=== PATIENT | male | born 1940 | race Two or more races ===

== ENCOUNTER 2018-11-18 03:42 | Inpatient (IN) | payer MEDICARE, OTHER ==
[~2018-11-18] VITALS: Ht 165.1 cm; Wt 63.0 kg
[~2018-11-18 03:42] MED LIST: ASPIRIN81 MG ORAL; ATORVASTATIN CA40 MG ORAL; COREG3.125 MG ORAL; LISINOPRIL20 MG ORAL; PLAVIX75 MG ORAL; RANEXA500 MG ORAL; UNOBMED
[2018-11-18] MEDS ORDERED: LACTULOSE10 GM/153 PO (03:54)
[2018-11-18] MEDS ORDERED: FUROSEMIDE40 MG ORAL (03:54)
[2018-11-18] MEDS ORDERED: PROTONIX40 MG ORAL (03:54)
[2018-11-18] MEDS ORDERED: metropolol PO (03:54)
[2018-11-18] MEDS ORDERED: SYNTHROID50 MCG ORAL (03:54)
[2018-11-18] MEDS ORDERED: LEXAPRO5 MG ORAL (03:54)
[2018-11-18] MEDS ORDERED: HYDRALAZINE HCL25 M2 PO (03:54)
--- NOTE | 2018-11-18 04:14 | Emergency Room Report ---
History of Present Illness General Chief Complaint: Chest Pain Source: Patient Present Illness HPI Is a 78-year-old male with a cardiac history with previous CABG and pacemaker. He presents with chief complaint of chest pain. He is a very vague historian. He said he get chest pain on and off all the time. He said recent admission was to [facility] 3 months ago. He presents with chief complaint of chest pain. Onset tonight. Per prison, the going to give him nitroglycerin but he refused. He insists on calling 911. Development Lead gave him nitroglycerin aspirin he said he felt better. Pain is substernal. No radiation. No nausea no vomiting. Pain is sharp. Pain is 7 out of 10. No exertional component. No diaphoresis. No shortness of breath. Allergies: Coded Allergies: No Known Allergies (Verified , 09/12/10) Patient History Past Medical History: see triage record, old chart reviewed, HTN, [place], CAD, CHF Past Surgical History: CABG, pacemaker Pertinent Family History: none Social History: Denies: smoking Immunizations: other Reviewed Nursing Documentation: PMH: Agreed; PSxH: Agreed Nursing Documentation-PMH Past Medical History: No History, Except For Hx Cardiac Problems: Yes - Left upper chest pacemaker Hx Hypertension: Yes Hx Pacemaker: Yes Hx Cancer: No Hx Gastrointestinal Problems: No Hx Neurological Problems: No Review of Systems Eye: Denies: eye pain, blurred vision ENT: Denies: ear pain, nose congestion, throat swelling Respiratory: Denies: cough, shortness of breath Cardiovascular: Reports: chest pain; Denies: palpitations Gastrointestinal: Denies: abdominal pain, diarrhea, nausea, vomiting Musculoskeletal: Denies: back pain, joint pain Skin: Denies: rash Neurological: Denies: headache, numbness Endocrine: Denies: increased thirst, increased urine Hematologic/Lymphatic: Denies: easy bruising All Other Systems: negative except mentioned in HPI Physical Exam Vital Signs Date Time Temp Pulse Resp B/P (MAP) Pulse Ox O2 Delivery O2 Flow Rate FiO2 11/18/18 03:42 98.1 68 18 156/75 99 Room Air vitals with high blood pressure Sp02 EP Interpretation: reviewed, normal General Appearance: well appearing, no apparent distress, alert Head: normocephalic, atraumatic Eyes: bilateral eye PERRL, bilateral eye EOMI ENT: hearing grossly normal, normal pharynx Neck: full range of motion, supple, no meningismus Respiratory: chest non-tender, lungs clear, normal breath sounds Cardiovascular #1: regular rate, rhythm, no murmur Gastrointestinal: normal bowel sounds, non tender, no mass, no organomegaly, no bruit, non-distended Musculoskeletal: back normal, gait/station normal, normal range of motion Psychiatric: mood/affect normal Skin: warm/dry Medical Decision Making Diagnostic Impression: Primary Impression: Chest pain Qualified Codes: R07.9 - Chest pain, unspecified ER Course Patient present with chest pain. Atypical in nature. I suspect some anxiety component to this. He does have multiple risk factors and known CAD with previous [place]. Will admit for further workup. I discussed the case with who admits for Dr. Bray. Lab Results Impression labs unremarkable. EKG Diagnostic Results Rate: normal Rhythm: NSR, other - Paced rhythm ST Segments: no acute changes Rhythm Strip Diag. Results EP Interpretation: yes Rate: 70 Rhythm: NSR, no PVC's, no ectopy Chest X-Ray Diagnostic Results Chest X-Ray Diagnostic Results : Chest X-Ray Ordered: Yes # of Views/Limited/Complete: 1 View Indication: Chest Pain EP Interpretation: Yes Interpretation: no consolidation, no effusion, no pneumothorax, no acute cardiopulmonary disease Impression: No acute disease Electronically Signed by: Aguilar Gray MD Last Vital Signs Date Time Temp Pulse Resp B/P (MAP) Pulse Ox O2 Delivery O2 Flow Rate FiO2 11/18/18 03:42 98.1 68 18 156/75 99 Room Air Status: improved Disposition: ADMITTED INPATIENT Condition: Serious Referrals: NON PHYSICIAN (PCP) Aguilar Gray MD Nov 18, 2018 04:14
[2018-11-18 05:00] VITALS: BP 154/59
[2018-11-18 05:26] LABS: BASOPHILS % (AUTO) 4.5 % (0.0-2.0); EOSINOPHILS % (AUTO) 4.8 % (0.0-3.0); HEMATOCRIT 25.5 % (42.0-52.0); HEMOGLOBIN 8.1 G/DL (14.2-18.0); LYMPHOCYTES % (AUTO) 36.2 % (20.0-45.0); MEAN CORPUSCULAR VOLUME 75 FL (80-99); MONOCYTES % (AUTO) 12.5 % (1.0-10.0); PLATELET COUNT 186 K/UL (150-450); RED CELL DISTRIBUTION WIDTH 28.5 % (11.6-14.8); WHITE BLOOD COUNT 8.1 K/UL (4.8-10.8)
[2018-11-18 05:38] LABS: ANION GAP 10 mmol/L (5-15); BLOOD UREA NITROGEN 19 mg/dL (7-18); CALCIUM 8.4 MG/DL (8.5-10.1); CARBON DIOXIDE 27 MMOL/L (21-32); CHLORIDE 103 MMOL/L (98-107); CREATININE 1.2 MG/DL (0.55-1.30); POTASSIUM 3.8 MMOL/L (3.5-5.1); SODIUM 139 MMOL/L (136-145)
[2018-11-18 06:02] LABS: ALANINE AMINOTRANSFERASE 19 U/L (12-78); ALBUMIN 3.4 G/DL (3.4-5.0); ALBUMIN/GLOBULIN RATIO 0.7 (1.0-2.7); ALKALINE PHOSPHATASE 66 U/L (46-116); ASPARTATE AMINO TRANSFERASE 23 U/L (15-37); BILIRUBIN,TOTAL 1.2 MG/DL (0.2-1.0); CKMB 1.1 NG/ML (0.0-3.6); CREATINE KINASE 31 U/L (26-308)
[2018-11-18 06:09] LABS: BILIRUBIN,DIRECT 0.3 MG/DL (0.0-0.3)
[2018-11-18 06:45] VITALS: BP 129/55
[2018-11-18 08:45] LABS: APPEARANCE,URINE CLOUDY; BILIRUBIN, URINE 1+ (NEGATIVE); COLOR,URINE BROWN; GLUCOSE, URINE (UA) NEGATIVE (NEGATIVE); KETONES,URINE 1+ (NEGATIVE); LEUKOCYTE ESTERASE ,URINE 3+ (NEGATIVE); NITRITE,URINE NEGATIVE (NEGATIVE); PH,URINE 5 (4.5-8.0); PROTEIN,URINE 1+ (NEGATIVE); UROBILINOGEN,URINE 1 MG/DL (0.0-1.0)
[2018-11-18 09:00] VITALS: BP 133/74
--- NOTE | 2018-11-18 10:07 | Diagnostic Imaging Report ---
Indication: Chest pain Technique: One view of the chest Comparison: 05/15/2016 Findings: Right hemidiaphragm is elevated. Large hiatal hernia again demonstrated. The aorta is tortuous and calcified. Some atelectasis is seen at the right lung base and right perihilar region. The lungs and pleural spaces are otherwise clear. There is a left chest biventricular AICD. There is evidence of prior CABG Impression: No acute process Right basilar atelectasis and elevated right hemidiaphragm, also previously demonstrated Other findings as noted
[2018-11-18] MEDS ORDERED: Zolpidem 5mg tab ORAL PRN (10:15)
[2018-11-18] MEDS ORDERED: Miralax 17gm pkt ORAL PRN (10:15)
[2018-11-18] MEDS ORDERED: Acetaminophen 650 MG SUPP RECTAL PRN (10:15)
[2018-11-18] MEDS ORDERED: Milk of Magnesia 30ml Ud ORAL PRN (10:15)
--- NOTE | 2018-11-18 10:27 | History & Physical ---
History and Physical History & Physicial Abdias Hunter MD Nov 18, 2018 10:27
[2018-11-18 11:00] VITALS: BP 134/70
[2018-11-18 13:00] VITALS: BP 152/62
--- NOTE | 2018-11-18 13:45 | Consultation ---
History of Present Illness General Date patient seen: Nov 18, 2018 Chief Complaint: Chest Pain Present Illness HPI 78-year-old male with a history of CABG and pacemaker presented to ER with chief complaint of chest pain. Pain is substernal. No radiation. Pt had a recent admission to [facility] 3 months ago with the same symptoms. Cuff Setter Overlock gave him nitroglycerin aspirin he said he felt better. . Pain is 7 out of 10. No exertional component. No diaphoresis. No shortness of breath. Pt is admitted to telemetry for further work up. Allergies: Coded Allergies: No Known Allergies (Verified , 09/12/10) Medication History Scheduled Aspirin* (Aspirin*), 81 MG ORAL DAILY Atorvastatin Calcium* (Atorvastatin Calcium*), 40 MG ORAL BEDTIME Carvedilol (Coreg), 3.125 MG ORAL EVERY 12 HOURS Clopidogrel Bisulfate* (Plavix*), 75 MG ORAL DAILY Escitalopram Oxalate (Lexapro), 5 MG ORAL DAILY, (Reported) Furosemide* (Lasix*), 40 MG ORAL DAILY, (Reported) Levothyroxine Sodium (Synthroid), 25 MCG ORAL DAILY, (Reported) Lisinopril (Lisinopril*), 40 MG ORAL DAILY Pantoprazole* (Protonix*), 40 MG ORAL DAILY, (Reported) Ranolazine* (Ranexa*), 1,000 MG ORAL Q12HR Miscellaneous Medications Hydralazine HCl (Hydralazine HCl), 25 MG PO, (Reported) Lactulose (Lactulose), 10 GM PO, (Reported) Unable to Obtain Medications (Unable To Obtain Meds), (Reported) [metropolol], 25 MG PO, (Reported) Patient History Healthcare decision maker Resuscitation status Advanced Directive on File Past Medical/Surgical History Past Medical/Surgical History: (1) CAD (coronary artery disease) (2) HTN (hypertension) (3) Pacemaker Review of Systems All Other Systems: negative except mentioned in HPI Physical Exam General Appearance: cachetic Lines, tubes and drains: peripheral HEENT: normocephalic, atraumatic Neck: non-tender, normal alignment Respiratory/Chest: chest wall non-tender, lungs clear Breasts: no masses Cardiovascular/Chest: normal peripheral pulses, normal rate Abdomen: normal bowel sounds, non tender Genitourinary/Rectal: normal genital exam Extremities: normal range of motion Skin Exam: normal pigmentation Neurologic: rug dry room attendant II-XII grossly normal Last 24 Hour Vital Signs Date Time Temp Pulse Resp B/P (MAP) Pulse Ox O2 Delivery O2 Flow Rate FiO2 11/18/18 11:00 98.3 80 17 134/70 100 Room Air 11/18/18 09:00 98.8 77 20 133/74 100 Room Air 11/18/18 06:45 98.4 69 21 129/55 100 Room Air 11/18/18 05:00 98.1 68 17 154/59 100 Room Air 11/18/18 04:00 68 18 Room Air 11/18/18 03:42 98.1 68 18 156/75 99 Room Air Laboratory Tests Test 11/18/18 04:35 11/18/18 08:15 White Blood Count 8.1 K/UL (4.8-10.8) Red Blood Count 3.40 M/UL (4.70-6.10) L Hemoglobin 8.1 G/DL (14.2-18.0) L Hematocrit 25.5 % (42.0-52.0) L Mean Corpuscular Volume 75 FL (80-99) L Mean Corpuscular Hemoglobin 23.7 PG (27.0-31.0) L Mean Corpuscular Hemoglobin Concent 31.8 G/DL (32.0-36.0) L Red Cell Distribution Width 28.5 % (11.6-14.8) H Platelet Count 186 K/UL (150-450) Mean Platelet Volume 10.1 FL (6.5-10.1) Neutrophils (%) (Auto) 42.0 % (45.0-75.0) L Lymphocytes (%) (Auto) 36.2 % (20.0-45.0) Monocytes (%) (Auto) 12.5 % (1.0-10.0) H Eosinophils (%) (Auto) 4.8 % (0.0-3.0) H Basophils (%) (Auto) 4.5 % (0.0-2.0) H Sodium Level 139 MMOL/L (136-145) Potassium Level 3.8 MMOL/L (3.5-5.1) Chloride Level 103 MMOL/L (98-107) Carbon Dioxide Level 27 MMOL/L (21-32) Anion Gap 10 mmol/L (5-15) Blood Urea Nitrogen 19 mg/dL (7-18) H Creatinine 1.2 MG/DL (0.55-1.30) Estimat Glomerular Filtration Rate mL/min (>60) Glucose Level 122 MG/DL (74-106) H Calcium Level 8.4 MG/DL (8.5-10.1) L Total Bilirubin 1.2 MG/DL (0.2-1.0) H Direct Bilirubin 0.3 MG/DL (0.0-0.3) Aspartate Amino Transf (AST/SGOT) 23 U/L (15-37) Alanine Aminotransferase (ALT/SGPT) 19 U/L (12-78) Alkaline Phosphatase 66 U/L (46-116) Total Creatine Kinase 31 U/L (26-308) Creatine Kinase MB 1.1 NG/ML (0.0-3.6) Creatine Kinase MB Relative Index 3.5 Troponin I 0.011 ng/mL (0.000-0.056) Total Protein 8.1 G/DL (6.4-8.2) Albumin 3.4 G/DL (3.4-5.0) Globulin 4.7 g/dL Albumin/Globulin Ratio 0.7 (1.0-2.7) L Urine Color Brown Urine Appearance Cloudy Urine pH 5 (4.5-8.0) Urine Specific [place] 1.015 (1.005-1.035) Urine Protein 1+ (NEGATIVE) H Urine Glucose (UA) Negative (NEGATIVE) Urine Ketones 1+ (NEGATIVE) H Urine Blood Negative (NEGATIVE) Urine Nitrite Negative (NEGATIVE) Urine Bilirubin 1+ (NEGATIVE) H Urine Ictotest Negative (NEGATIVE) Urine Urobilinogen 1 MG/DL (0.0-1.0) H Urine Leukocyte Esterase 3+ (NEGATIVE) H Urine RBC 0-2 /HPF (0 - 0) H Urine WBC 20-30 /HPF (0 - 0) H Urine Squamous Epithelial Cells Occasional /LPF Urine Calcium Oxalate Crystals Occasional /LPF (NONE) Urine Bacteria Many /HPF (NONE) H Microbiology Date/Time Source Procedure Growth Status 11/18/18 07:20 Rectum Received Height (Feet): 5 Height (Inches): 6.00 Weight (Pounds): 135 Medications Current Medications Medications (Trade) Dose Ordered Sig/Scout Route PRN Reason Start Time Stop Time Status Last Admin Dose Admin Acetaminophen (Tylenol) 650 mg Q4H PRN ORAL Mild Pain (Pain Scale 1-3) 11/18/18 10:15 12/18/18 10:14 Acetaminophen (Tylenol) 650 mg Q4H PRN ORAL fever 11/18/18 10:15 12/18/18 10:14 Acetaminophen (Tylenol) 650 mg Q4H PRN RECTAL Mild Pain (Pain Scale 1-3) 11/18/18 10:15 12/18/18 10:14 Aspirin (ASA) 81 mg DAILY ORAL 11/19/18 09:00 12/19/18 08:59 Atorvastatin Calcium (Lipitor) 40 mg BEDTIME ORAL 11/18/18 21:00 12/18/18 20:59 Bisacodyl (Dulcolax) 10 mg DAILYPRN PRN RECTAL Constipation 11/18/18 10:15 12/18/18 10:14 Carvedilol (Coreg) 3.125 mg EVERY 12 HOURS ORAL 11/18/18 21:00 12/18/18 20:59 Ceftriaxone Sodium 1 gm/ Dextrose 50 ml @ 100 mls/hr Q24H IVPB 11/18/18 10:30 11/25/18 10:29 UNV Clopidogrel Bisulfate (Plavix) 75 mg DAILY ORAL 11/19/18 09:00 12/19/18 08:59 Dextrose (Dextrose 50%) 25 ml Q30M PRN IV Hypoglycemia 11/18/18 10:15 12/18/18 10:14 Dextrose (Dextrose 50%) 50 ml Q30M PRN IV Hypoglycemia 11/18/18 10:15 12/18/18 10:14 Docusate Sodium (Colace) 100 mg EVERY 12 HOURS ORAL 11/18/18 21:00 12/18/18 20:59 Escitalopram Oxalate (Lexapro) 5 mg DAILY ORAL 11/19/18 09:00 12/19/18 08:59 Furosemide (Lasix) 40 mg DAILY ORAL 11/19/18 09:00 12/19/18 08:59 Heparin Sodium (Porcine) (Heparin 5000 units/ml) 5,000 units EVERY 12 HOURS SUBQ 11/18/18 21:00 12/18/18 20:59 Hydralazine HCl (Apresoline) 25 mg Q8HR ORAL 11/18/18 14:00 12/18/18 13:59 Levothyroxine Sodium (Synthroid) 25 mcg Q24H ORAL 11/19/18 06:30 12/19/18 06:29 Lisinopril (Prinivil) 40 mg DAILY ORAL 11/19/18 09:00 12/19/18 08:59 Magnesium Hydroxide (Mom) 30 ml HSPRN PRN ORAL Constipation 11/18/18 10:15 12/18/18 10:14 Morphine Sulfate (Morphine Sulfate) 2 mg Q6H PRN IVP Moderate Pain (Pain Scale 4-6) 11/18/18 10:15 11/25/18 10:14 Morphine Sulfate (Morphine Sulfate) 4 mg Q6H PRN IVP Severe Pain (Pain Scale 7-10) 11/18/18 10:15 11/25/18 10:14 Nitroglycerin (Ntg) 0.4 mg Q5M PRN SL Prn Chest Pain 11/18/18 10:15 12/18/18 10:14 Ondansetron HCl (Zofran) 4 mg Q6H PRN IVP Nausea & Vomiting 11/18/18 10:15 12/18/18 10:14 Pantoprazole (Protonix) 40 mg DAILY ORAL 11/19/18 09:00 12/19/18 08:59 Polyethylene Glycol (Miralax) 17 gm DAILYPRN PRN ORAL Constipation 11/18/18 10:15 12/18/18 10:14 Ranolazine (Ranexa ER 500mg) 1,000 mg Q12HR ORAL 11/18/18 10:15 12/18/18 10:14 UNV Zolpidem Tartrate (Ambien) 5 mg DAILYPRN PRN ORAL Insomnia 11/18/18 10:15 11/25/18 10:14 Assessment/Plan Problem List: (1) ACS (acute coronary syndrome) ICD Codes: I24.9 - Acute ischemic heart disease, unspecified SNOMED: 506042440 (2) Cardiomyopathy ICD Codes: I42.9 - Cardiomyopathy, unspecified SNOMED: 87974500 (3) HTN (hypertension) ICD Codes: I10 - Essential (primary) hypertension SNOMED: 25609309 (4) Pacemaker ICD Codes: Z95.0 - Presence of cardiac pacemaker SNOMED: 70706568, 341352089, 919510118 (5) Hypothyroidism ICD Codes: E03.9 - Hypothyroidism, unspecified SNOMED: 43337831 (6) CAD (coronary artery disease) ICD Codes: I25.10 - Atherosclerotic heart disease of [place] coronary artery without angina pectoris SNOMED: 75014313 Assessment/Plan serial ekg, troponin, echo cardiology to see titrate cardiac meds check TSH, T3 and T4 symptomatic treatment monitor BP evaluate pts defibrillator Chepe Luong MD Nov 18, 2018 13:45
--- NOTE | 2018-11-18 14:20 | Cardiac Electrophysiology PN ---
Subjective Subjective Well known to me. Was at [facility] in 10/2018 S/P BIVICD and CABG Dictated [id number] Objective Last 24 Hour Vital Signs Date Time Temp Pulse Resp B/P (MAP) Pulse Ox O2 Delivery O2 Flow Rate FiO2 11/18/18 13:00 98.7 77 19 152/62 100 Room Air 11/18/18 11:00 98.3 80 17 134/70 100 Room Air 11/18/18 09:00 98.8 77 20 133/74 100 Room Air 11/18/18 06:45 98.4 69 21 129/55 100 Room Air 11/18/18 05:00 98.1 68 17 154/59 100 Room Air 11/18/18 04:00 68 18 Room Air 11/18/18 03:42 98.1 68 18 156/75 99 Room Air Laboratory Tests Test 11/18/18 04:35 11/18/18 08:15 White Blood Count 8.1 K/UL (4.8-10.8) Red Blood Count 3.40 M/UL (4.70-6.10) L Hemoglobin 8.1 G/DL (14.2-18.0) L Hematocrit 25.5 % (42.0-52.0) L Mean Corpuscular Volume 75 FL (80-99) L Mean Corpuscular Hemoglobin 23.7 PG (27.0-31.0) L Mean Corpuscular Hemoglobin Concent 31.8 G/DL (32.0-36.0) L Red Cell Distribution Width 28.5 % (11.6-14.8) H Platelet Count 186 K/UL (150-450) Mean Platelet Volume 10.1 FL (6.5-10.1) Neutrophils (%) (Auto) 42.0 % (45.0-75.0) L Lymphocytes (%) (Auto) 36.2 % (20.0-45.0) Monocytes (%) (Auto) 12.5 % (1.0-10.0) H Eosinophils (%) (Auto) 4.8 % (0.0-3.0) H Basophils (%) (Auto) 4.5 % (0.0-2.0) H Sodium Level 139 MMOL/L (136-145) Potassium Level 3.8 MMOL/L (3.5-5.1) Chloride Level 103 MMOL/L (98-107) Carbon Dioxide Level 27 MMOL/L (21-32) Anion Gap 10 mmol/L (5-15) Blood Urea Nitrogen 19 mg/dL (7-18) H Creatinine 1.2 MG/DL (0.55-1.30) Estimat Glomerular Filtration Rate mL/min (>60) Glucose Level 122 MG/DL (74-106) H Calcium Level 8.4 MG/DL (8.5-10.1) L Total Bilirubin 1.2 MG/DL (0.2-1.0) H Direct Bilirubin 0.3 MG/DL (0.0-0.3) Aspartate Amino Transf (AST/SGOT) 23 U/L (15-37) Alanine Aminotransferase (ALT/SGPT) 19 U/L (12-78) Alkaline Phosphatase 66 U/L (46-116) Total Creatine Kinase 31 U/L (26-308) Creatine Kinase MB 1.1 NG/ML (0.0-3.6) Creatine Kinase MB Relative Index 3.5 Troponin I 0.011 ng/mL (0.000-0.056) Total Protein 8.1 G/DL (6.4-8.2) Albumin 3.4 G/DL (3.4-5.0) Globulin 4.7 g/dL Albumin/Globulin Ratio 0.7 (1.0-2.7) L Urine Color Brown Urine Appearance Cloudy Urine pH 5 (4.5-8.0) Urine Specific [place] 1.015 (1.005-1.035) Urine Protein 1+ (NEGATIVE) H Urine Glucose (UA) Negative (NEGATIVE) Urine Ketones 1+ (NEGATIVE) H Urine Blood Negative (NEGATIVE) Urine Nitrite Negative (NEGATIVE) Urine Bilirubin 1+ (NEGATIVE) H Urine Ictotest Negative (NEGATIVE) Urine Urobilinogen 1 MG/DL (0.0-1.0) H Urine Leukocyte Esterase 3+ (NEGATIVE) H Urine RBC 0-2 /HPF (0 - 0) H Urine WBC 20-30 /HPF (0 - 0) H Urine Squamous Epithelial Cells Occasional /LPF Urine Calcium Oxalate Crystals Occasional /LPF (NONE) Urine Bacteria Many /HPF (NONE) H Microbiology Date/Time Source Procedure Growth Status 11/18/18 07:20 Rectum Received Satinder Gee MD Nov 18, 2018 14:20
--- NOTE | 2018-11-18 14:59 | Cardiology Report ---
APPROVED REPORT EXAM: Two-dimensional and M-mode echocardiogram with Doppler and color Doppler. M-Mode DIMENSIONS IVSd1.2 (0.7-1.1cm)Left Atrium (MM)3.7 (1.6-4.0cm) LVDd3.8 (3.5-5.6cm)Aortic Root3.3 (2.0-3.7cm) PWd1.3 (0.7-1.1cm)Aortic Cusp Exc.1.4 (1.5-2.0cm) IVSs1.7 cm LVDs2.6 (2.5-4.0cm) PWs1.7 cm Technically difficult study due to poor acoustical windows. Study quality precludes accurate assessment of regional wall motion. Normal left ventricular chamber size, systolic function and wall motion to extent visualized. Left ventricular ejection fraction estimated to be 55-60%. No evidence of left ventricular hypertrophy . No evidence of pericardial effusion. Mild left atrial enlargement . Right cardiac chamber sizes are within normal limits. Aortic valve calcification with decreased cusp excursion . Heavily thickened mitral valve leaflets with reduced cusp excursion. Mitral annulus and aortic root calcification. Pulmonic valve not well visualized. IVC in normal size with physiological collapse . Pacemaker wire present in the right side chambers. A color flow and spectral Doppler study was performed and revealed: Trace aortic regurgitation. Peak aortic valve gradient of 16 mm Hg and a mean of 5 mmHg. Aortic valve area 1.7 cm2 calculated by continuity equation. Mitral inflow velocities indicates possible pseudo normalization pattern implying moderately elevated left atrial pressure (Grade II ). Moderate mitral regurgitation. Prosthetic mitral valve with adequate function. Peak mitral valve gradient of 10 mm Hg and a mean of 3 mmHg. Za valve area 1.4 cm2 calculated by continuity equation. Mild tricuspid regurgitation. Tricuspid systolic velocities suggests peak right ventricular systolic pressure of 61mmHg,consistent with severe pulmonary hypertension .
--- NOTE | 2018-11-18 15:45 | History and Physical Report ---
DATE OF ADMISSION: 11/18/2018 CHIEF COMPLAINT: Chest pain. HISTORY OF PRESENT ILLNESS: This is a 78-year-old, very delightful gentleman with past medical history significant for coronary artery disease, prior history of CABG x3, history of hypertension, dyslipidemia, atherosclerotic heart disease, status post pacemaker who was presented to the hospital from nursing facility, [facility] complaining about chest pain. The patient was recently hospitalized at [facility] about 3 months ago due to this chest pain. The patient stated the chest pain started last night, progressively worsening. He stated that the chest pain improved by nitroglycerin. Insisted to call 911. Pain is mostly retrosternal area. No radiation. No nausea or vomiting, 7/10 in intensity. No exertion of pain. Shortly after initial evaluation in the emergency, the patient was admitted to the hospital with chest pain possible acute coronary syndrome. PAST MEDICAL HISTORY/PAST SURGICAL HISTORY: As above, history of coronary artery disease, status CABG, sick sinus syndrome with status post pacemaker, congestive heart failure, hypertensive heart disease with heart failure. The patient has difficulty ambulating, unsteady gait, chronic viral hepatitis C positive, decreased visual acuity, history of hyponatremia, fluid overload, generalized abdominal pain, lower back pain, insomnia. The patient has atherosclerotic heart disease. MEDICATIONS: At home, please refer to medication reconciliation. ALLERGIES: No known drug allergies. SOCIAL HISTORY: The patient denies any smoking, alcohol, or drugs at this time. FAMILY HISTORY: Noncontributory. REVIEW OF SYSTEMS: Mostly as above. Denies any dysuria, frequency, or hematuria. Denies any hemoptysis or hematochezia. Complained about the chest wall pain. Denies any loss of consciousness. Denies any suicidal or homicidal ideation. The patient complained about severe weakness, fatigue, back pain, abdominal discomfort. No loss of consciousness. No suicidal or homicidal ideation. No double vision. PHYSICAL EXAMINATION: VITAL SIGNS: On admission is significant for temperature 98.1, pulse of 68, respirations 18, blood pressure 156/75. GENERAL: The patient awake, responsive, no acute distress. HEAD AND NECK: Pupils are equal and reactive to light. Extraocular movements are intact. Neck was supple. No JVD LUNGS: Good air entry. No wheeze or rales. HEART: S1, S2. Distant heart sounds. No murmur or gallops. Pacemaker in left-sided chest wall. ABDOMEN: Soft, nondistended, nontender. EXTREMITIES: No cyanosis, clubbing, edema. Varicose veins, bilateral lower extremities. NEUROLOGIC: Cranial nerves II through XII grossly intact. Motor is 5/5 in all extremities. Gait is intact. RECTAL: Refused and deferred. GENITOURINARY: Refused and deferred. PSYCHIATRIC: Mood and affect is depressed. LABORATORY AND DIAGNOSTIC DATA: On admission from the ER, sodium 139, potassium 3.8, chloride 103, bicarbonate 27, BUN 19, creatinine 1.2, glucose is 122, calcium is 8.4. Total bilirubin of 1.2, AST of 23, ALT of 19, alkaline phosphatase 66. First troponin 0.011. WBC of 8.0, hemoglobin 8.1, hematocrit 25, platelet is 186. Urine is +1 protein, +3 leukocytes, 20 to 30 WBC, many bacteria was noted. The patient's EKG was noted to be normal sinus rhythm, ventricular rate of 71, left axis deviation. 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 ASSESSMENT: 1. Chest pain, possible acute coronary syndrome. 2. Hypertension. 3. Dyslipidemia. 4. Congestive heart failure. 5. Coronary artery disease. 6. Sick sinus syndrome, status pacemaker. 7. UTI. PLAN: Admit the patient to telemetry. We will follow up laboratory. Discussed case with Dr. Gee from Cardiology Electrophysiology. Dr. Luong, Pulmonary Critical Care. Broad-spectrum antibiotic Rocephin. We will monitor cultures, laboratory. DVT prophylaxis, heparin subcutaneous. Code status, Full Code. The patient is expected to be in the hospital greater than 2 days. Abdias Hunter M.D. DR: DELGADO JOB#: [id number] CC:
[2018-11-18] MEDS: HydrALAZINE 25mg tab ORAL SCH ×2 (16:29→22:32)
[2018-11-18] MEDS: Nitroglycerin Subl 0.4mg tab SL PRN ×7 (16:30→21:37)
[2018-11-18] MEDS: cefTRIAXone 1 GM in D5W 50 ML IVPB SCH (16:30)
[2018-11-18] MEDS: Morphine Sulfate 4mg/ml Inj (IV USE ONLY) IVP PRN (19:01)
[2018-11-18 20:00] VITALS: BP 138/67
--- NOTE | 2018-11-18 20:00 | Consultation ---
DATE OF CONSULTATION: 11/18/2018 CONSULTING PHYSICIAN: Satinder Gee M.D. REFERRING PHYSICIAN: Abdias Hunter M.D. REASON FOR CONSULTATION: Evaluation of hypertension, congestive heart failure, chest pain, and history of defibrillator. 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 The patient has history of ischemic cardiomyopathy as well as history of Biotronik pacemaker, subsequent apparently upgraded to an ICD at [facility]. The patient presented to the emergency room, complaining of chest pain that has been off and on all the time. The patient has multiple hospitalizations at [facility] and had undergone multiple stress tests that was negative for ischemia. The patient called 911 and paramedics brought him to the hospital. REVIEW OF SYSTEMS: Negative other than what was mentioned in history of present illness. PAST MEDICAL HISTORY: As mentioned above. FAMILY HISTORY: Noncontributory. SOCIAL HISTORY: He lives at home. He does not smoke or drink alcohol. PHYSICAL EXAMINATION: VITAL SIGNS: Blood pressure is 120/70, pulse is 70, respirations 18, and he is a afebrile. HEAD AND NECK: No JVD. LUNGS: Coarse rhonchi. CARDIOVASCULAR: Regular S1 and S2 with no gallop or murmur. The sternotomy is intact. Defibrillator is in left subclavian. ABDOMEN: Soft. EXTREMITIES: A 1+ pitting edema. LABORATORY AND DIAGNOSTIC DATA: His chest x-ray shows a biventricular defibrillator as well as history of sternotomy. His labs show white count of 8.1, hemoglobin of 8.1, hematocrit 25.5, and platelet count is 186,000. Sodium 139, potassium 3.8, BUN of 19, and creatinine 1.2. Troponin is negative. ASSESSMENT AND PLAN: 1. Atypical chest pain. The first troponin is negative. We completely ruled out [place] protocol and scheduled the patient for nuclear stress test for further evaluation and management. In the meantime, resume his home medication including aspirin, Plavix, and Coreg. 2. Severe cardiomyopathy. Echocardiogram will be repeated. On Coreg 3.125 mg b.i.d., lisinopril 40 mg daily, Lasix 40 mg daily, and hydralazine 25 mg every 8 hours. I will add Aldactone to his medical regimen. His creatinine is currently normal. 3. Status post placement of Biotronik pacemaker to an atrial biventricular defibrillator. We will find the brand of the defibrillator and interrogate after further evaluation. The patient with history of coronary artery bypass graft. Thank you very much for allowing me participate in the care of this patient. Please do not hesitate to contact me for any questions regarding my evaluation. Satinder Gee M.D. DR: CAMERON JOB#: [id number] CC:
--- NOTE | 2018-11-18 20:47 | Consultation ---
History of Present Illness General Chief Complaint: Chest Pain Present Illness Allergies: Coded Allergies: No Known Allergies (Verified , 09/12/10) Medication History Scheduled Aspirin* (Aspirin*), 81 MG ORAL DAILY Atorvastatin Calcium* (Atorvastatin Calcium*), 40 MG ORAL BEDTIME Carvedilol (Coreg), 3.125 MG ORAL EVERY 12 HOURS Clopidogrel Bisulfate* (Plavix*), 75 MG ORAL DAILY Escitalopram Oxalate (Lexapro), 5 MG ORAL DAILY, (Reported) Furosemide* (Lasix*), 40 MG ORAL DAILY, (Reported) Levothyroxine Sodium (Synthroid), 25 MCG ORAL DAILY, (Reported) Lisinopril (Lisinopril*), 40 MG ORAL DAILY Pantoprazole* (Protonix*), 40 MG ORAL DAILY, (Reported) Ranolazine* (Ranexa*), 1,000 MG ORAL Q12HR Miscellaneous Medications Hydralazine HCl (Hydralazine HCl), 25 MG PO, (Reported) Lactulose (Lactulose), 10 GM PO, (Reported) Unable to Obtain Medications (Unable To Obtain Meds), (Reported) [metropolol], 25 MG PO, (Reported) Patient History Healthcare decision maker Resuscitation status Chemical (Meds Only) Advanced Directive on File Physical Exam Last 24 Hour Vital Signs Date Time Temp Pulse Resp B/P (MAP) Pulse Ox O2 Delivery O2 Flow Rate FiO2 11/18/18 19:07 139/77 11/18/18 18:52 134/69 11/18/18 18:48 134/69 11/18/18 17:45 Room Air 11/18/18 16:30 152/83 11/18/18 16:29 152/89 11/18/18 15:24 97.9 76 20 132/80 100 Room Air 11/18/18 13:00 98.7 77 19 152/62 100 Room Air 11/18/18 11:00 98.3 80 17 134/70 100 Room Air 11/18/18 09:00 98.8 77 20 133/74 100 Room Air 11/18/18 06:45 98.4 69 21 129/55 100 Room Air 11/18/18 05:00 98.1 68 17 154/59 100 Room Air 11/18/18 04:00 68 18 Room Air 11/18/18 03:42 98.1 68 18 156/75 99 Room Air Laboratory Tests Test 11/18/18 04:35 11/18/18 08:15 11/18/18 18:20 White Blood Count 8.1 K/UL (4.8-10.8) Red Blood Count 3.40 M/UL (4.70-6.10) L Hemoglobin 8.1 G/DL (14.2-18.0) L Hematocrit 25.5 % (42.0-52.0) L Mean Corpuscular Volume 75 FL (80-99) L Mean Corpuscular Hemoglobin 23.7 PG (27.0-31.0) L Mean Corpuscular Hemoglobin Concent 31.8 G/DL (32.0-36.0) L Red Cell Distribution Width 28.5 % (11.6-14.8) H Platelet Count 186 K/UL (150-450) Mean Platelet Volume 10.1 FL (6.5-10.1) Neutrophils (%) (Auto) 42.0 % (45.0-75.0) L Lymphocytes (%) (Auto) 36.2 % (20.0-45.0) Monocytes (%) (Auto) 12.5 % (1.0-10.0) H Eosinophils (%) (Auto) 4.8 % (0.0-3.0) H Basophils (%) (Auto) 4.5 % (0.0-2.0) H Sodium Level 139 MMOL/L (136-145) Potassium Level 3.8 MMOL/L (3.5-5.1) Chloride Level 103 MMOL/L (98-107) Carbon Dioxide Level 27 MMOL/L (21-32) Anion Gap 10 mmol/L (5-15) Blood Urea Nitrogen 19 mg/dL (7-18) H Creatinine 1.2 MG/DL (0.55-1.30) Estimat Glomerular Filtration Rate mL/min (>60) Glucose Level 122 MG/DL (74-106) H Calcium Level 8.4 MG/DL (8.5-10.1) L Total Bilirubin 1.2 MG/DL (0.2-1.0) H Direct Bilirubin 0.3 MG/DL (0.0-0.3) Aspartate Amino Transf (AST/SGOT) 23 U/L (15-37) Alanine Aminotransferase (ALT/SGPT) 19 U/L (12-78) Alkaline Phosphatase 66 U/L (46-116) Total Creatine Kinase 31 U/L (26-308) Creatine Kinase MB 1.1 NG/ML (0.0-3.6) Creatine Kinase MB Relative Index 3.5 Troponin I 0.011 ng/mL (0.000-0.056) 0.020 ng/mL (0.000-0.056) Total Protein 8.1 G/DL (6.4-8.2) Albumin 3.4 G/DL (3.4-5.0) Globulin 4.7 g/dL Albumin/Globulin Ratio 0.7 (1.0-2.7) L Urine Color Brown Urine Appearance Cloudy Urine pH 5 (4.5-8.0) Urine Specific [place] 1.015 (1.005-1.035) Urine Protein 1+ (NEGATIVE) H Urine Glucose (UA) Negative (NEGATIVE) Urine Ketones 1+ (NEGATIVE) H Urine Blood Negative (NEGATIVE) Urine Nitrite Negative (NEGATIVE) Urine Bilirubin 1+ (NEGATIVE) H Urine Ictotest Negative (NEGATIVE) Urine Urobilinogen 1 MG/DL (0.0-1.0) H Urine Leukocyte Esterase 3+ (NEGATIVE) H Urine RBC 0-2 /HPF (0 - 0) H Urine WBC 20-30 /HPF (0 - 0) H Urine Squamous Epithelial Cells Occasional /LPF Urine Calcium Oxalate Crystals Occasional /LPF (NONE) Urine Bacteria Many /HPF (NONE) H Microbiology Date/Time Source Procedure Growth Status 11/18/18 07:20 Rectum Received Height (Feet): 5 Height (Inches): 6.00 Weight (Pounds): 135 Medications Current Medications Medications (Trade) Dose Ordered Sig/Scout Route PRN Reason Start Time Stop Time Status Last Admin Dose Admin Acetaminophen (Tylenol) 650 mg Q4H PRN ORAL Mild Pain (Pain Scale 1-3) 11/18/18 10:15 12/18/18 10:14 Acetaminophen (Tylenol) 650 mg Q4H PRN ORAL fever 11/18/18 10:15 12/18/18 10:14 Acetaminophen (Tylenol) 650 mg Q4H PRN RECTAL Mild Pain (Pain Scale 1-3) 11/18/18 10:15 12/18/18 10:14 Aspirin (ASA) 81 mg DAILY ORAL 11/19/18 09:00 12/19/18 08:59 Atorvastatin Calcium (Lipitor) 40 mg BEDTIME ORAL 11/18/18 21:00 12/18/18 20:59 Bisacodyl (Dulcolax) 10 mg DAILYPRN PRN RECTAL Constipation 11/18/18 10:15 12/18/18 10:14 Carvedilol (Coreg) 3.125 mg EVERY 12 HOURS ORAL 11/18/18 21:00 12/18/18 20:59 Ceftriaxone Sodium 1 gm/ Dextrose 50 ml @ 100 mls/hr Q24H IVPB 11/18/18 17:00 11/25/18 16:59 11/18/18 16:30 Clopidogrel Bisulfate (Plavix) 75 mg DAILY ORAL 11/19/18 09:00 12/19/18 08:59 Dextrose (Dextrose 50%) 25 ml Q30M PRN IV Hypoglycemia 11/18/18 10:15 12/18/18 10:14 Dextrose (Dextrose 50%) 50 ml Q30M PRN IV Hypoglycemia 11/18/18 10:15 12/18/18 10:14 Docusate Sodium (Colace) 100 mg EVERY 12 HOURS ORAL 11/18/18 21:00 12/18/18 20:59 Escitalopram Oxalate (Lexapro) 5 mg DAILY ORAL 11/19/18 09:00 12/19/18 08:59 Furosemide (Lasix) 40 mg DAILY ORAL 11/19/18 09:00 12/19/18 08:59 Heparin Sodium (Porcine) (Heparin 5000 units/ml) 5,000 units EVERY 12 HOURS SUBQ 11/18/18 21:00 12/18/18 20:59 Hydralazine HCl (Apresoline) 25 mg Q8HR ORAL 11/18/18 14:00 12/18/18 13:59 11/18/18 16:29 Levothyroxine Sodium (Synthroid) 25 mcg Q24H ORAL 11/19/18 06:30 12/19/18 06:29 Lisinopril (Prinivil) 40 mg DAILY ORAL 11/19/18 09:00 12/19/18 08:59 Magnesium Hydroxide (Mom) 30 ml HSPRN PRN ORAL Constipation 11/18/18 10:15 12/18/18 10:14 Morphine Sulfate (Morphine Sulfate) 2 mg Q6H PRN IVP Moderate Pain (Pain Scale 4-6) 11/18/18 10:15 11/25/18 10:14 Morphine Sulfate (Morphine Sulfate) 4 mg Q6H PRN IVP Severe Pain (Pain Scale 7-10) 11/18/18 10:15 11/25/18 10:14 11/18/18 19:01 Nitroglycerin (Ntg) 0.4 mg Q5M PRN SL Prn Chest Pain 11/18/18 10:15 12/18/18 10:14 11/18/18 19:07 Ondansetron HCl (Zofran) 4 mg Q6H PRN IVP Nausea & Vomiting 11/18/18 10:15 12/18/18 10:14 Pantoprazole (Protonix) 40 mg DAILY ORAL 11/19/18 09:00 12/19/18 08:59 Polyethylene Glycol (Miralax) 17 gm DAILYPRN PRN ORAL Constipation 11/18/18 10:15 12/18/18 10:14 Ranolazine (Ranexa ER 500mg) 1,000 mg Q12HR ORAL 11/18/18 21:00 12/18/18 20:59 Zolpidem Tartrate (Ambien) 5 mg DAILYPRN PRN ORAL Insomnia 11/18/18 10:15 11/25/18 10:14 Patti Gaines MD Nov 18, 2018 20:47
[2018-11-18] MEDS: Docusate 100mg cap ORAL SCH (21:51)
[2018-11-18] MEDS: Atorvastatin 20mg tab ORAL SCH (21:55)
[2018-11-18] MEDS: Ranolazine 500mg tab ORAL SCH (21:55)
[2018-11-18] MEDS: Heparin 5000 units/ml inj SUBQ SCH (21:57)
[2018-11-19] VITALS: BP 154/78
[2018-11-19] MEDS: Morphine Sulfate 2mg/ml Inj(IV/IM USE ONLY) IVP PRN ×3 (01:16→18:17)
[2018-11-19 04:00] VITALS: BP 148/82
[2018-11-19 04:55] LABS: HEMATOCRIT 22.4 % (42.0-52.0); MEAN CORPUSCULAR VOLUME 74 FL (80-99); PLATELET COUNT 110 K/UL (150-450); RED BLOOD COUNT 3.04 M/UL (4.70-6.10); RED CELL DISTRIBUTION WIDTH 27.8 % (11.6-14.8); WHITE BLOOD COUNT 6.7 K/UL (4.8-10.8)
[2018-11-19 05:03] LABS: INR 1.1 (0.9-1.1)
[2018-11-19 05:11] LABS: HEMOGLOBIN 6.8 G/DL (14.2-18.0)
[2018-11-19 05:37] LABS: ALANINE AMINOTRANSFERASE 16 U/L (12-78); ALBUMIN/GLOBULIN RATIO 0.7 (1.0-2.7); ALKALINE PHOSPHATASE 53 U/L (46-116); ANION GAP 7 mmol/L (5-15); ASPARTATE AMINO TRANSFERASE 19 U/L (15-37); BILIRUBIN,TOTAL 1.4 MG/DL (0.2-1.0); BLOOD UREA NITROGEN 19 mg/dL (7-18); CALCIUM 7.9 MG/DL (8.5-10.1); CARBON DIOXIDE 27 MMOL/L (21-32); CHLORIDE 102 MMOL/L (98-107); CHOLESTEROL 104 MG/DL (< 200); CREATININE 1.1 MG/DL (0.55-1.30); HDL CHOLESTEROL 35 MG/DL (40-60); PHOSPHORUS 3.5 MG/DL (2.5-4.9); POTASSIUM 3.6 MMOL/L (3.5-5.1); SODIUM 136 MMOL/L (136-145); TRIGLYCERIDES 52 MG/DL (30-150)
[2018-11-19 05:54] LABS: BILIRUBIN,DIRECT 0.4 MG/DL (0.0-0.3)
[2018-11-19] MEDS: Levothyroxine 25mcg tab ORAL SCH (06:11)
[2018-11-19] MEDS: HydrALAZINE 25mg tab ORAL SCH ×3 (06:11→22:00)
[2018-11-19 08:00] VITALS: BP 130/66
[2018-11-19] MEDS: Ranolazine 500mg tab ORAL SCH ×2 (08:34→21:37)
[2018-11-19] MEDS: Aspirin Baby 81mg ORAL SCH (08:36)
[2018-11-19] MEDS: Furosemide 40mg tab ORAL SCH (08:37)
[2018-11-19] MEDS: Docusate 100mg cap ORAL SCH ×2 (08:37→21:36)
[2018-11-19] MEDS: Lisinopril 20mg tab ORAL SCH (08:37)
[2018-11-19] MEDS: Heparin 5000 units/ml inj SUBQ SCH ×2 (08:47→21:38)
--- NOTE | 2018-11-19 10:03 | Pulmonology Progress Note ---
Assessment/Plan Problems: (1) ACS (acute coronary syndrome) (2) Cardiomyopathy (3) HTN (hypertension) (4) Pacemaker (5) Hypothyroidism (6) CAD (coronary artery disease) Assessment/Plan troponin negative check echo f/u cardiology evaluation titrate cardiac meds check electrolytes stress test ordered Subjective ROS Limited/Unobtainable: No Interval Events: no new complains Constitutional: Reports: no symptoms Allergies: Coded Allergies: No Known Allergies (Verified , 09/12/10) Objective Last 24 Hour Vital Signs Date Time Temp Pulse Resp B/P (MAP) Pulse Ox O2 Delivery O2 Flow Rate FiO2 11/19/18 08:37 130/66 11/19/18 08:35 72 130/66 11/19/18 08:00 97.1 72 20 130/66 (87) 100 72 11/19/18 06:11 116/59 11/19/18 04:00 98.4 74 20 148/82 (104) 94 74 11/19/18 04:00 63 11/19/18 00:00 97.5 75 20 154/78 (103) 100 75 11/18/18 23:25 72 11/18/18 22:32 161/78 11/18/18 21:54 74 143/77 11/18/18 21:37 148/80 11/18/18 21:31 156/86 11/18/18 21:24 169/94 11/18/18 21:00 Nasal Cannula 2.0 11/18/18 20:00 86 11/18/18 20:00 97.7 72 18 138/67 (90) 99 72 11/18/18 19:07 139/77 11/18/18 18:52 134/69 11/18/18 18:48 134/69 11/18/18 17:45 Room Air 11/18/18 16:30 152/83 11/18/18 16:29 152/89 11/18/18 15:24 97.9 76 20 132/80 100 Room Air 11/18/18 13:00 98.7 77 19 152/62 100 Room Air 11/18/18 11:00 98.3 80 17 134/70 100 Room Air Intake and Output 11/18/18 11/19/18 18:59 06:59 Intake Total 120 ml Output Total 100 ml Balance 20 ml Intake Oral 120 ml Output Urine Total 100 ml # Voids 1 2 # Bowel Movements 1 Objective General Appearance: cachetic Lines, tubes and drains: peripheral HEENT: normocephalic, atraumatic Neck: non-tender, normal alignment Respiratory/Chest: chest wall non-tender, lungs clear Breasts: no masses Cardiovascular/Chest: normal peripheral pulses, normal rate Abdomen: normal bowel sounds, non tender Genitourinary/Rectal: normal genital exam Extremities: normal range of motion Skin Exam: normal pigmentation 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 Microbiology Date/Time Source Procedure Growth Status 11/18/18 08:15 Urine,Clean Catch Urine Culture - Preliminary Gram Negative Reyes Resulted 11/18/18 07:20 Rectum Received Laboratory Tests 11/18/18 18:20: Troponin I 0.020 11/19/18 03:00: Troponin I 0.029, White Blood Count 6.7, Red Blood Count 3.04L, Hemoglobin 6.8*L , Hematocrit 22.4L, Mean Corpuscular Volume 74L, Mean Corpuscular Hemoglobin 22.5L, Mean Corpuscular Hemoglobin Concent 30.6L, Red Cell Distribution Width 27.8H, Platelet Count 110L, Mean Platelet Volume 6.4L, Neutrophils (%) (Auto) , Lymphocytes (%) (Auto) , Monocytes (%) (Auto) , Eosinophils (%) (Auto) , Basophils (%) (Auto) , Differential Total Cells Counted 100, Neutrophils % ( Manual) 48, Lymphocytes % (Manual) 34, Monocytes % (Manual) 14H, Eosinophils % ( Manual) 3, Basophils % (Manual) 0, Band Neutrophils 1, Reactive Lymphocytes 1+, Platelet Estimate Adequate, Platelet Morphology , Giant Platelets 1+, Hypochromasia 2+, Anisocytosis 3+, Microcytosis 2+, [place] Cells 2+, Acanthocytes 1+, Schistocytes 1+, Prothrombin Time 11.8H, Prothromb Time International Ratio 1.1, Activated Partial Thromboplast Time 26, Sodium Level 136, Potassium Level 3.6, Chloride Level 102, Carbon Dioxide Level 27, Anion Gap 7, Blood Urea Nitrogen 19H, Creatinine 1.1, Estimat Glomerular Filtration Rate , Glucose Level 96, Calcium Level 7.9L, Phosphorus Level 3.5, Magnesium Level 1.5L, Total Bilirubin 1.4H, Direct Bilirubin 0.4H, Aspartate Amino Transf (AST/SGOT) 19, Alanine Aminotransferase (ALT/SGPT) 16, Alkaline Phosphatase 53, Pro-B-Type Natriuretic Peptide 2557H, Total Protein 7.1, Albumin 3.0L, Globulin 4.1, Albumin/Globulin Ratio 0.7L, Triglycerides Level 52, Cholesterol Level 104, LDL Cholesterol 65, HDL Cholesterol 35L, Cholesterol/HDL Ratio 3.0L, Thyroid Stimulating Hormone (TSH) 4.973H Current Medications Medications (Trade) Dose Ordered Sig/Scout Route PRN Reason Start Time Stop Time Status Last Admin Dose Admin Acetaminophen (Tylenol) 650 mg Q4H PRN ORAL Mild Pain (Pain Scale 1-3) 11/18/18 10:15 12/18/18 10:14 Acetaminophen (Tylenol) 650 mg Q4H PRN ORAL fever 11/18/18 10:15 12/18/18 10:14 Acetaminophen (Tylenol) 650 mg Q4H PRN RECTAL Mild Pain (Pain Scale 1-3) 11/18/18 10:15 12/18/18 10:14 Aspirin (ASA) 81 mg DAILY ORAL 11/19/18 09:00 12/19/18 08:59 11/19/18 08:36 Atorvastatin Calcium (Lipitor) 40 mg BEDTIME ORAL 11/18/18 21:00 12/18/18 20:59 11/18/18 21:55 Bisacodyl (Dulcolax) 10 mg DAILYPRN PRN RECTAL Constipation 11/18/18 10:15 12/18/18 10:14 Carvedilol (Coreg) 3.125 mg EVERY 12 HOURS ORAL 11/18/18 21:00 12/18/18 20:59 11/19/18 08:35 Ceftriaxone Sodium 1 gm/ Dextrose 50 ml @ 100 mls/hr Q24H IVPB 11/18/18 17:00 11/25/18 16:59 11/18/18 16:30 Clopidogrel Bisulfate (Plavix) 75 mg DAILY ORAL 11/19/18 09:00 12/19/18 08:59 11/19/18 08:37 Dextrose (Dextrose 50%) 25 ml Q30M PRN IV Hypoglycemia 11/18/18 10:15 12/18/18 10:14 Dextrose (Dextrose 50%) 50 ml Q30M PRN IV Hypoglycemia 11/18/18 10:15 12/18/18 10:14 Docusate Sodium (Colace) 100 mg EVERY 12 HOURS ORAL 11/18/18 21:00 12/18/18 20:59 11/19/18 08:37 Escitalopram Oxalate (Lexapro) 5 mg DAILY ORAL 11/19/18 09:00 12/19/18 08:59 11/19/18 08:35 Furosemide (Lasix) 40 mg DAILY ORAL 11/19/18 09:00 12/19/18 08:59 11/19/18 08:37 Heparin Sodium (Porcine) (Heparin 5000 units/ml) 5,000 units EVERY 12 HOURS SUBQ 11/18/18 21:00 12/18/18 20:59 11/18/18 21:57 Hydralazine HCl (Apresoline) 25 mg Q8HR ORAL 11/18/18 14:00 12/18/18 13:59 11/19/18 06:11 Levothyroxine Sodium (Synthroid) 25 mcg Q24H ORAL 11/19/18 06:30 12/19/18 06:29 11/19/18 06:11 Lisinopril (Prinivil) 40 mg DAILY ORAL 11/19/18 09:00 12/19/18 08:59 11/19/18 08:37 Magnesium Hydroxide (Mom) 30 ml HSPRN PRN ORAL Constipation 11/18/18 10:15 12/18/18 10:14 Morphine Sulfate (Morphine Sulfate) 2 mg Q6H PRN IVP Moderate Pain (Pain Scale 4-6) 11/18/18 10:15 11/25/18 10:14 11/19/18 08:43 Morphine Sulfate (Morphine Sulfate) 4 mg Q6H PRN IVP Severe Pain (Pain Scale 7-10) 11/18/18 10:15 11/25/18 10:14 11/18/18 19:01 Nitroglycerin (Ntg) 0.4 mg Q5M PRN SL Prn Chest Pain 11/18/18 10:15 12/18/18 10:14 11/18/18 21:37 Ondansetron HCl (Zofran) 4 mg Q6H PRN IVP Nausea & Vomiting 11/18/18 10:15 12/18/18 10:14 Pantoprazole (Protonix) 40 mg DAILY ORAL 11/19/18 09:00 12/19/18 08:59 11/19/18 08:36 Polyethylene Glycol (Miralax) 17 gm DAILYPRN PRN ORAL Constipation 11/18/18 10:15 12/18/18 10:14 Ranolazine (Ranexa ER 500mg) 1,000 mg Q12HR ORAL 11/18/18 21:00 12/18/18 20:59 11/19/18 08:34 Zolpidem Tartrate (Ambien) 5 mg DAILYPRN PRN ORAL Insomnia 11/18/18 10:15 11/25/18 10:14 Chepe Luong MD Nov 19, 2018 10:03
--- NOTE | 2018-11-19 13:41 | Cardiac Electrophysiology PN ---
Assessment/Plan Assessment/Plan 1. Atypical chest pain and Hx of CABG. Likely due to severe anemia. Ruled out SD. Scheduled the patient for nuclear stress test for further evaluation and management. In the meantime, resume his home medication including aspirin, Plavix, Lipitor and Coreg. 2. Severe cardiomyopathy. Echocardiogram EF 55%. On Coreg 3.125 mg b.i.d., lisinopril 40 mg daily, Lasix 40 mg daily, and hydralazine 25 mg every 8 hour and Aldactone 3. Status post Str [place] atrial biventricular defibrillator. Interrogated and showed Nl Fx 4. Severe anemia, getting PRBC. SANDRO CORTEZ RN Subjective Subjective Getting blood transfusion. ICD was interrogated Objective Last 24 Hour Vital Signs Date Time Temp Pulse Resp B/P (MAP) Pulse Ox O2 Delivery O2 Flow Rate FiO2 11/19/18 09:00 Nasal Cannula 2.0 11/19/18 08:37 130/66 11/19/18 08:35 72 130/66 11/19/18 08:00 70 11/19/18 08:00 97.1 72 20 130/66 (87) 100 72 11/19/18 06:11 116/59 11/19/18 04:00 98.4 74 20 148/82 (104) 94 74 11/19/18 04:00 63 11/19/18 00:00 97.5 75 20 154/78 (103) 100 75 11/18/18 23:25 72 11/18/18 22:32 161/78 11/18/18 21:54 74 143/77 11/18/18 21:37 148/80 11/18/18 21:31 156/86 11/18/18 21:24 169/94 11/18/18 21:00 Nasal Cannula 2.0 11/18/18 20:00 86 11/18/18 20:00 97.7 72 18 138/67 (90) 99 72 11/18/18 19:07 139/77 11/18/18 18:52 134/69 11/18/18 18:48 134/69 11/18/18 17:45 Room Air 11/18/18 16:30 152/83 11/18/18 16:29 152/89 11/18/18 15:24 97.9 76 20 132/80 100 Room Air Intake and Output 11/18/18 11/19/18 18:59 06:59 Intake Total 120 ml Output Total 100 ml Balance 20 ml Intake Oral 120 ml Output Urine Total 100 ml # Voids 1 2 # Bowel Movements 1 Laboratory Tests Test 11/18/18 18:20 11/19/18 03:00 Troponin I 0.020 ng/mL (0.000-0.056) 0.029 ng/mL (0.000-0.056) White Blood Count 6.7 K/UL (4.8-10.8) Red Blood Count 3.04 M/UL (4.70-6.10) L Hemoglobin 6.8 G/DL (14.2-18.0) *L Hematocrit 22.4 % (42.0-52.0) L Mean Corpuscular Volume 74 FL (80-99) L Mean Corpuscular Hemoglobin 22.5 PG (27.0-31.0) L Mean Corpuscular Hemoglobin Concent 30.6 G/DL (32.0-36.0) L Red Cell Distribution Width 27.8 % (11.6-14.8) H Platelet Count 110 K/UL (150-450) L Mean Platelet Volume 6.4 FL (6.5-10.1) L Neutrophils (%) (Auto) % (45.0-75.0) Lymphocytes (%) (Auto) % (20.0-45.0) Monocytes (%) (Auto) % (1.0-10.0) Eosinophils (%) (Auto) % (0.0-3.0) Basophils (%) (Auto) % (0.0-2.0) Differential Total Cells Counted 100 Neutrophils % (Manual) 48 % (45-75) Lymphocytes % (Manual) 34 % (20-45) Monocytes % (Manual) 14 % (1-10) H Eosinophils % (Manual) 3 % (0-3) Basophils % (Manual) 0 % (0-2) Band Neutrophils 1 % (0-8) Reactive Lymphocytes 1+ Platelet Estimate Adequate Platelet Morphology Giant Platelets 1+ Hypochromasia 2+ Anisocytosis 3+ Microcytosis 2+ [place] Cells 2+ Acanthocytes 1+ Schistocytes 1+ Prothrombin Time 11.8 SEC (9.30-11.50) H Prothromb Time International Ratio 1.1 (0.9-1.1) Activated Partial Thromboplast Time 26 SEC (23-33) Sodium Level 136 MMOL/L (136-145) Potassium Level 3.6 MMOL/L (3.5-5.1) Chloride Level 102 MMOL/L (98-107) Carbon Dioxide Level 27 MMOL/L (21-32) Anion Gap 7 mmol/L (5-15) Blood Urea Nitrogen 19 mg/dL (7-18) H Creatinine 1.1 MG/DL (0.55-1.30) Estimat Glomerular Filtration Rate mL/min (>60) Glucose Level 96 MG/DL (74-106) Calcium Level 7.9 MG/DL (8.5-10.1) L Phosphorus Level 3.5 MG/DL (2.5-4.9) Magnesium Level 1.5 MG/DL (1.8-2.4) L Total Bilirubin 1.4 MG/DL (0.2-1.0) H Direct Bilirubin 0.4 MG/DL (0.0-0.3) H Aspartate Amino Transf (AST/SGOT) 19 U/L (15-37) Alanine Aminotransferase (ALT/SGPT) 16 U/L (12-78) Alkaline Phosphatase 53 U/L (46-116) Pro-B-Type Natriuretic Peptide 2557 pg/mL (0-125) H Total Protein 7.1 G/DL (6.4-8.2) Albumin 3.0 G/DL (3.4-5.0) L Globulin 4.1 g/dL Albumin/Globulin Ratio 0.7 (1.0-2.7) L Triglycerides Level 52 MG/DL (30-150) Cholesterol Level 104 MG/DL (< 200) LDL Cholesterol 65 mg/dL (<100) HDL Cholesterol 35 MG/DL (40-60) L Cholesterol/HDL Ratio 3.0 (3.3-4.4) L Thyroid Stimulating Hormone (TSH) 4.973 uiU/mL (0.358-3.740) Microbiology Date/Time Source Procedure Growth Status 11/18/18 08:15 Urine,Clean Catch Urine Culture - Preliminary Gram Negative Reyes Resulted 11/18/18 07:20 Rectum Received Objective HEAD AND NECK: No JVD. LUNGS: Coarse rhonchi. CARDIOVASCULAR: Regular S1 and S2 with no gallop or murmur. The sternotomy is intact. Defibrillator is in left subclavian. ABDOMEN: Soft. EXTREMITIES: A 1+ pitting edema. Satinder Gee MD Nov 19, 2018 13:41
[2018-11-19 16:00] VITALS: BP 100/48
[2018-11-19] MEDS: cefTRIAXone 1 GM in D5W 50 ML IVPB SCH (18:00)
--- NOTE | 2018-11-19 18:50 | Internal Med Progress Note ---
Subjective Date of Service: Nov 19, 2018 Physician Name Nikhil West Attending Physician Abdias Hunter MD Current Medications Medications (Trade) Dose Ordered Sig/Scout Route PRN Reason Start Time Stop Time Status Last Admin Dose Admin Acetaminophen (Tylenol) 650 mg Q4H PRN ORAL Mild Pain (Pain Scale 1-3) 11/18/18 10:15 12/18/18 10:14 Acetaminophen (Tylenol) 650 mg Q4H PRN ORAL fever 11/18/18 10:15 12/18/18 10:14 Acetaminophen (Tylenol) 650 mg Q4H PRN RECTAL Mild Pain (Pain Scale 1-3) 11/18/18 10:15 12/18/18 10:14 Aspirin (ASA) 81 mg DAILY ORAL 11/19/18 09:00 12/19/18 08:59 11/19/18 08:36 Atorvastatin Calcium (Lipitor) 40 mg BEDTIME ORAL 11/18/18 21:00 12/18/18 20:59 11/18/18 21:55 Bisacodyl (Dulcolax) 10 mg DAILYPRN PRN RECTAL Constipation 11/18/18 10:15 12/18/18 10:14 Carvedilol (Coreg) 3.125 mg EVERY 12 HOURS ORAL 11/18/18 21:00 12/18/18 20:59 11/19/18 08:35 Ceftriaxone Sodium 1 gm/ Dextrose 50 ml @ 100 mls/hr Q24H IVPB 11/18/18 17:00 11/25/18 16:59 11/19/18 18:00 Clopidogrel Bisulfate (Plavix) 75 mg DAILY ORAL 11/19/18 09:00 12/19/18 08:59 11/19/18 08:37 Dextrose (Dextrose 50%) 25 ml Q30M PRN IV Hypoglycemia 11/18/18 10:15 12/18/18 10:14 Dextrose (Dextrose 50%) 50 ml Q30M PRN IV Hypoglycemia 11/18/18 10:15 12/18/18 10:14 Docusate Sodium (Colace) 100 mg EVERY 12 HOURS ORAL 11/18/18 21:00 12/18/18 20:59 11/19/18 08:37 Escitalopram Oxalate (Lexapro) 5 mg DAILY ORAL 11/19/18 09:00 12/19/18 08:59 11/19/18 08:35 Furosemide (Lasix) 40 mg DAILY ORAL 11/19/18 09:00 12/19/18 08:59 11/19/18 08:37 Heparin Sodium (Porcine) (Heparin 5000 units/ml) 5,000 units EVERY 12 HOURS SUBQ 11/18/18 21:00 12/18/18 20:59 11/18/18 21:57 Hydralazine HCl (Apresoline) 25 mg Q8HR ORAL 11/18/18 14:00 12/18/18 13:59 11/19/18 06:11 Levothyroxine Sodium (Synthroid) 25 mcg Q24H ORAL 11/19/18 06:30 12/19/18 06:29 11/19/18 06:11 Lisinopril (Prinivil) 40 mg DAILY ORAL 11/19/18 09:00 12/19/18 08:59 11/19/18 08:37 Magnesium Hydroxide (Mom) 30 ml HSPRN PRN ORAL Constipation 11/18/18 10:15 12/18/18 10:14 Magnesium Sulfate 100 ml @ 100 mls/hr Q1H IVPB 11/19/18 20:00 11/19/18 21:59 Morphine Sulfate (Morphine Sulfate) 2 mg Q6H PRN IVP Moderate Pain (Pain Scale 4-6) 11/18/18 10:15 11/25/18 10:14 11/19/18 18:17 Morphine Sulfate (Morphine Sulfate) 4 mg Q6H PRN IVP Severe Pain (Pain Scale 7-10) 11/18/18 10:15 11/25/18 10:14 11/18/18 19:01 Nitroglycerin (Ntg) 0.4 mg Q5M PRN SL Prn Chest Pain 11/18/18 10:15 12/18/18 10:14 11/18/18 21:37 Ondansetron HCl (Zofran) 4 mg Q6H PRN IVP Nausea & Vomiting 11/18/18 10:15 12/18/18 10:14 Pantoprazole (Protonix) 40 mg DAILY ORAL 11/19/18 09:00 12/19/18 08:59 11/19/18 08:36 Polyethylene Glycol (Miralax) 17 gm DAILYPRN PRN ORAL Constipation 11/18/18 10:15 12/18/18 10:14 Ranolazine (Ranexa ER 500mg) 1,000 mg Q12HR ORAL 11/18/18 21:00 12/18/18 20:59 11/19/18 08:34 Zolpidem Tartrate (Ambien) 5 mg DAILYPRN PRN ORAL Insomnia 11/18/18 10:15 11/25/18 10:14 Allergies: Coded Allergies: No Known Allergies (Verified , 09/12/10) ROS Limited/Unobtainable: No Constitutional: Reports: no symptoms HEENT: Reports: no symptoms Cardiovascular: Reports: chest pain Respiratory: Reports: no symptoms Gastrointestinal/Abdominal: Reports: no symptoms Genitourinary: Reports: no symptoms Neurologic/Psychiatric: Reports: no symptoms Subjective 78 YO M admitted with chest pain. Cover for Int Joseph-Dr Hunter Objective Last Vital Signs Date Time Temp Pulse Resp B/P (MAP) Pulse Ox O2 Delivery O2 Flow Rate FiO2 11/19/18 16:00 97.1 62 20 100/48 (65) 96 62 11/19/18 09:00 Nasal Cannula 2.0 Laboratory Tests Test 11/19/18 03:00 White Blood Count 6.7 K/UL (4.8-10.8) Red Blood Count 3.04 M/UL (4.70-6.10) L Hemoglobin 6.8 G/DL (14.2-18.0) *L Hematocrit 22.4 % (42.0-52.0) L Mean Corpuscular Volume 74 FL (80-99) L Mean Corpuscular Hemoglobin 22.5 PG (27.0-31.0) L Mean Corpuscular Hemoglobin Concent 30.6 G/DL (32.0-36.0) L Red Cell Distribution Width 27.8 % (11.6-14.8) H Platelet Count 110 K/UL (150-450) L Mean Platelet Volume 6.4 FL (6.5-10.1) L Neutrophils (%) (Auto) % (45.0-75.0) Lymphocytes (%) (Auto) % (20.0-45.0) Monocytes (%) (Auto) % (1.0-10.0) Eosinophils (%) (Auto) % (0.0-3.0) Basophils (%) (Auto) % (0.0-2.0) Differential Total Cells Counted 100 Neutrophils % (Manual) 48 % (45-75) Lymphocytes % (Manual) 34 % (20-45) Monocytes % (Manual) 14 % (1-10) H Eosinophils % (Manual) 3 % (0-3) Basophils % (Manual) 0 % (0-2) Band Neutrophils 1 % (0-8) Reactive Lymphocytes 1+ Platelet Estimate Adequate Platelet Morphology Giant Platelets 1+ Hypochromasia 2+ Anisocytosis 3+ Microcytosis 2+ Agatha Cells 2+ Acanthocytes 1+ Schistocytes 1+ Prothrombin Time 11.8 SEC (9.30-11.50) H Prothromb Time International Ratio 1.1 (0.9-1.1) Activated Partial Thromboplast Time 26 SEC (23-33) Sodium Level 136 MMOL/L (136-145) Potassium Level 3.6 MMOL/L (3.5-5.1) Chloride Level 102 MMOL/L (98-107) Carbon Dioxide Level 27 MMOL/L (21-32) Anion Gap 7 mmol/L (5-15) Blood Urea Nitrogen 19 mg/dL (7-18) H Creatinine 1.1 MG/DL (0.55-1.30) Estimat Glomerular Filtration Rate mL/min (>60) Glucose Level 96 MG/DL (74-106) Calcium Level 7.9 MG/DL (8.5-10.1) L Phosphorus Level 3.5 MG/DL (2.5-4.9) Magnesium Level 1.5 MG/DL (1.8-2.4) L Total Bilirubin 1.4 MG/DL (0.2-1.0) H Direct Bilirubin 0.4 MG/DL (0.0-0.3) H Aspartate Amino Transf (AST/SGOT) 19 U/L (15-37) Alanine Aminotransferase (ALT/SGPT) 16 U/L (12-78) Alkaline Phosphatase 53 U/L (46-116) Troponin I 0.029 ng/mL (0.000-0.056) Pro-B-Type Natriuretic Peptide 2557 pg/mL (0-125) H Total Protein 7.1 G/DL (6.4-8.2) Albumin 3.0 G/DL (3.4-5.0) L Globulin 4.1 g/dL Albumin/Globulin Ratio 0.7 (1.0-2.7) L Triglycerides Level 52 MG/DL (30-150) Cholesterol Level 104 MG/DL (< 200) LDL Cholesterol 65 mg/dL (<100) HDL Cholesterol 35 MG/DL (40-60) L Cholesterol/HDL Ratio 3.0 (3.3-4.4) L Thyroid Stimulating Hormone (TSH) 4.973 uiU/mL (0.358-3.740) Microbiology Date/Time Source Procedure Growth Status 11/18/18 08:15 Urine,Clean Catch Urine Culture - Preliminary Gram Negative Reyes Resulted 11/18/18 07:20 Rectum Received Intake and Output 11/18/18 11/19/18 19:00 07:00 Intake Total 120 ml Output Total 100 ml Balance 20 ml Intake Oral 120 ml Output Urine Total 100 ml # Voids 1 2 # Bowel Movements 1 Objective PHYSICAL EXAMINATION: GENERAL: The patient awake, responsive, no acute distress. HEAD AND NECK: Pupils are equal and reactive to light. Extraocular movements are intact. Neck was supple. No JVD LUNGS: Good air entry. No wheeze or rales. HEART: S1, S2. Distant heart sounds. No murmur or gallops. Pacemaker in left-sided chest wall. ABDOMEN: Soft, nondistended, nontender. EXTREMITIES: No cyanosis, clubbing, edema. Varicose veins, bilateral lower extremities. NEUROLOGIC: Cranial nerves II through XII grossly intact. Motor is 5/5 in all extremities. Gait is intact. RECTAL: Refused and deferred. GENITOURINARY: Refused and deferred. PSYCHIATRIC: Mood and affect is depressed. Assessment/Plan Assessment/Plan ASSESSMENT: 1. Chest pain, possible acute coronary syndrome. 2. Hypertension. 3. Dyslipidemia. 4. Congestive heart failure. 5. Coronary artery disease. 6. Sick sinus syndrome, status pacemaker. 7. UTI. PLAN: Admit the patient to telemetry. We will follow up laboratory. Discussed case with Dr. Gee from Cardiology Electrophysiology. Dr. Luong, Pulmonary Critical Care. Broad-spectrum antibiotic Rocephin. We will monitor cultures, laboratory. DVT prophylaxis, heparin subcutaneous. Code status, Full Code. The patient is expected to be in the hospital greater than 2 days. Nikhil West MD Nov 19, 2018 18:50
[2018-11-19 20:00] VITALS: BP 134/64
[2018-11-19] MEDS: Atorvastatin 20mg tab ORAL SCH (21:37)
--- NOTE | 2018-11-19 22:02 | General Progress Note ---
Assessment/Plan Problem List: (1) Anxiety disorder ICD Codes: F41.9 - Anxiety disorder, unspecified SNOMED: 554107122 (2) MDD (major depressive disorder), recurrent episode, moderate ICD Codes: F33.1 - Major depressive disorder, recurrent, moderate SNOMED: 74203006, [id number] Assessment/Plan Lexapro 5mg po qam provided ro/st Subjective Neurologic/Psychiatric: Reports: anxiety, depressed, emotional problems Allergies: Coded Allergies: No Known Allergies (Verified , 09/12/10) Objective Last 24 Hour Vital Signs Date Time Temp Pulse Resp B/P (MAP) Pulse Ox O2 Delivery O2 Flow Rate FiO2 11/19/18 21:36 66 134/64 11/19/18 16:00 97.1 62 20 100/48 (65) 96 62 11/19/18 16:00 63 11/19/18 14:00 100/48 11/19/18 12:00 63 11/19/18 09:00 Nasal Cannula 2.0 11/19/18 08:37 130/66 11/19/18 08:35 72 130/66 11/19/18 08:00 70 11/19/18 08:00 97.1 72 20 130/66 (87) 100 72 11/19/18 06:11 116/59 11/19/18 04:00 98.4 74 20 148/82 (104) 94 74 11/19/18 04:00 63 11/19/18 00:00 97.5 75 20 154/78 (103) 100 75 11/18/18 23:25 72 11/18/18 22:32 161/78 Intake and Output 11/18/18 11/19/18 19:00 07:00 Intake Total 120 ml Output Total 100 ml Balance 20 ml Intake Oral 120 ml Output Urine Total 100 ml # Voids 1 2 # Bowel Movements 1 Laboratory Tests 11/19/18 03:00: White Blood Count 6.7, Red Blood Count 3.04L, Hemoglobin 6.8*L, Hematocrit 22.4L , Mean Corpuscular Volume 74L, Mean Corpuscular Hemoglobin 22.5L, Mean Corpuscular Hemoglobin Concent 30.6L, Red Cell Distribution Width 27.8H, Platelet Count 110L, Mean Platelet Volume 6.4L, Neutrophils (%) (Auto) , Lymphocytes (%) (Auto) , Monocytes (%) (Auto) , Eosinophils (%) (Auto) , Basophils (%) (Auto) , Differential Total Cells Counted 100, Neutrophils % ( Manual) 48, Lymphocytes % (Manual) 34, Monocytes % (Manual) 14H, Eosinophils % ( Manual) 3, Basophils % (Manual) 0, Band Neutrophils 1, Reactive Lymphocytes 1+, Platelet Estimate Adequate, Platelet Morphology , Giant Platelets 1+, Hypochromasia 2+, Anisocytosis 3+, Microcytosis 2+, Agatha Cells 2+, Acanthocytes 1+, Schistocytes 1+, Prothrombin Time 11.8H, Prothromb Time International Ratio 1.1, Activated Partial Thromboplast Time 26, Sodium Level 136, Potassium Level 3.6, Chloride Level 102, Carbon Dioxide Level 27, Anion Gap 7, Blood Urea Nitrogen 19H, Creatinine 1.1, Estimat Glomerular Filtration Rate , Glucose Level 96, Calcium Level 7.9L, Phosphorus Level 3.5, Magnesium Level 1.5L, Total Bilirubin 1.4H, Direct Bilirubin 0.4H, Aspartate Amino Transf (AST/SGOT) 19, Alanine Aminotransferase (ALT/SGPT) 16, Alkaline Phosphatase 53, Troponin I 0.029, Pro-B-Type Natriuretic Peptide 2557H, Total Protein 7.1, Albumin 3.0L, Globulin 4.1, Albumin/Globulin Ratio 0.7L, Triglycerides Level 52, Cholesterol Level 104, LDL Cholesterol 65, HDL Cholesterol 35L, Cholesterol/HDL Ratio 3.0L, Thyroid Stimulating Hormone (TSH) 4.973H Height (Feet): 5 Height (Inches): 6.00 Weight (Pounds): 135 General Appearance: WD/WN, no apparent distress, alert Neurologic: alert, oriented x 3, responsive, depressed affect Patti Gaines MD Nov 19, 2018 22:02
[2018-11-20] VITALS: BP 133/66
[2018-11-20] MEDS: Morphine Sulfate 4mg/ml Inj (IV USE ONLY) IVP PRN ×3 (00:16→23:59)
[2018-11-20 04:00] VITALS: BP 138/72
[2018-11-20] MEDS: HydrALAZINE 25mg tab ORAL SCH ×4 (06:10→23:52)
[2018-11-20] MEDS: Levothyroxine 25mcg tab ORAL SCH (06:11)
[2018-11-20 08:00] VITALS: BP 110/54
[2018-11-20 08:17] LABS: EOSINOPHILS % (AUTO) 5.7 % (0.0-3.0); HEMATOCRIT 30.4 % (42.0-52.0); HEMOGLOBIN 9.8 G/DL (14.2-18.0); LYMPHOCYTES % (AUTO) 39.9 % (20.0-45.0); MEAN CORPUSCULAR VOLUME 77 FL (80-99); MONOCYTES % (AUTO) 13.7 % (1.0-10.0); NEUTROPHILS % (AUTO) 37.7 % (45.0-75.0); PLATELET COUNT 137 K/UL (150-450); RED BLOOD COUNT 3.95 M/UL (4.70-6.10); WHITE BLOOD COUNT 5.5 K/UL (4.8-10.8)
[2018-11-20] MEDS: Docusate 100mg cap ORAL SCH ×2 (08:43→20:44)
[2018-11-20] MEDS: Lisinopril 20mg tab ORAL SCH ×2 (08:44→09:00)
[2018-11-20] MEDS: Aspirin Baby 81mg ORAL SCH (08:45)
[2018-11-20] MEDS: Furosemide 40mg tab ORAL SCH (08:45)
[2018-11-20 08:47] LABS: ANION GAP 7 mmol/L (5-15); BLOOD UREA NITROGEN 23 mg/dL (7-18); CALCIUM 8.7 MG/DL (8.5-10.1); CARBON DIOXIDE 28 MMOL/L (21-32); CHLORIDE 101 MMOL/L (98-107); CREATININE 1.3 MG/DL (0.55-1.30); POTASSIUM 3.9 MMOL/L (3.5-5.1); SODIUM 136 MMOL/L (136-145)
[2018-11-20] MEDS: Morphine Sulfate 2mg/ml Inj(IV/IM USE ONLY) IVP PRN ×2 (08:59→15:08)
[2018-11-20] MEDS: Heparin 5000 units/ml inj SUBQ SCH ×2 (09:00→20:44)
[2018-11-20] MEDS: Ranolazine 500mg tab ORAL SCH (09:00)
[2018-11-20 12:00] VITALS: BP 103/53
[2018-11-20] MEDS: Nitroglycerin Subl 0.4mg tab SL PRN ×2 (12:21→17:57)
--- NOTE | 2018-11-20 12:48 | Pulmonology Progress Note ---
Assessment/Plan Problems: (1) ACS (acute coronary syndrome) (2) Cardiomyopathy (3) HTN (hypertension) (4) Pacemaker (5) Hypothyroidism (6) CAD (coronary artery disease) Assessment/Plan troponin negative check echo f/u cardiology evaluation titrate cardiac meds check electrolytes stress test ordered Subjective ROS Limited/Unobtainable: No Constitutional: Reports: no symptoms HEENT: Repors: no symptoms Allergies: Coded Allergies: No Known Allergies (Verified , 09/12/10) Objective Last 24 Hour Vital Signs Date Time Temp Pulse Resp B/P (MAP) Pulse Ox O2 Delivery O2 Flow Rate FiO2 11/20/18 12:21 103/53 11/20/18 12:00 97.2 65 20 103/53 (70) 98 94 11/20/18 09:00 Nasal Cannula 2.0 11/20/18 09:00 110/54 11/20/18 09:00 94 110/54 11/20/18 08:00 70 11/20/18 08:00 96.9 70 20 110/54 (72) 100 94 11/20/18 06:10 138/72 11/20/18 04:00 62 11/20/18 04:00 98.8 94 20 138/72 (94) 99 94 11/20/18 00:00 63 11/20/18 00:00 97.0 63 20 133/66 (88) 100 63 11/19/18 22:00 115/64 11/19/18 21:36 66 134/64 11/19/18 21:00 Nasal Cannula 2.0 11/19/18 20:00 63 11/19/18 20:00 98.2 66 20 134/64 (87) 100 66 11/19/18 16:00 97.1 62 20 100/48 (65) 96 62 11/19/18 16:00 63 11/19/18 14:00 100/48 Intake and Output 11/19/18 11/20/18 19:00 07:00 Intake Total 640 ml Output Total 200 ml 900 ml Balance 440 ml -900 ml Intake Oral 640 ml Output Urine Total 200 ml 900 ml # Voids 3 Objective General Appearance: cachetic Lines, tubes and drains: peripheral HEENT: normocephalic, atraumatic Neck: non-tender, normal alignment Respiratory/Chest: chest wall non-tender, lungs clear Breasts: no masses Cardiovascular/Chest: normal peripheral pulses, normal rate Abdomen: normal bowel sounds, non tender Genitourinary/Rectal: normal genital exam Extremities: normal range of motion Skin Exam: normal pigmentation 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 Complete 11/18/18 08:15 Urine,Clean Catch Urine Culture - Final Escherichia Coli Complete 11/18/18 07:20 Rectum VRE Culture - Final NO VANCOMYCIN RESISTANT ENTEROCOCCUS ... Complete 11/18/18 07:20 Rectum - Final NO CARBAPENEM-RESISTANT ENTEROBACTERI... Complete Laboratory Tests 11/20/18 07:10: White Blood Count 5.5, Red Blood Count 3.95L, Hemoglobin 9.8#L, Hematocrit 30.4# L, Mean Corpuscular Volume 77L, Mean Corpuscular Hemoglobin 24.9L, Mean Corpuscular Hemoglobin Concent 32.3, Red Cell Distribution Width 26.0H, Platelet Count 137L, Mean Platelet Volume 12.4H, Neutrophils (%) (Auto) 37.7L, Lymphocytes (%) (Auto) 39.9, Monocytes (%) (Auto) 13.7H, Eosinophils (%) (Auto) 5.7H, Basophils (%) (Auto) 3.0H, Sodium Level 136, Potassium Level 3.9, Chloride Level 101, Carbon Dioxide Level 28, Anion Gap 7, Blood Urea Nitrogen 23H, Creatinine 1.3, Estimat Glomerular Filtration Rate , Glucose Level 90, Calcium Level 8.7 Current Medications Medications (Trade) Dose Ordered Sig/Scout Route PRN Reason Start Time Stop Time Status Last Admin Dose Admin Acetaminophen (Tylenol) 650 mg Q4H PRN ORAL Mild Pain (Pain Scale 1-3) 11/18/18 10:15 12/18/18 10:14 Acetaminophen (Tylenol) 650 mg Q4H PRN ORAL fever 11/18/18 10:15 12/18/18 10:14 Acetaminophen (Tylenol) 650 mg Q4H PRN RECTAL Mild Pain (Pain Scale 1-3) 11/18/18 10:15 12/18/18 10:14 Aspirin (ASA) 81 mg DAILY ORAL 11/19/18 09:00 12/19/18 08:59 11/20/18 08:45 Atorvastatin Calcium (Lipitor) 40 mg BEDTIME ORAL 11/18/18 21:00 12/18/18 20:59 11/19/18 21:37 Bisacodyl (Dulcolax) 10 mg DAILYPRN PRN RECTAL Constipation 11/18/18 10:15 12/18/18 10:14 Carvedilol (Coreg) 3.125 mg EVERY 12 HOURS ORAL 11/18/18 21:00 12/18/18 20:59 11/19/18 21:36 Ceftriaxone Sodium 1 gm/ Dextrose 50 ml @ 100 mls/hr Q24H IVPB 11/18/18 17:00 11/25/18 16:59 11/19/18 18:00 Clopidogrel Bisulfate (Plavix) 75 mg DAILY ORAL 11/19/18 09:00 12/19/18 08:59 11/20/18 08:43 Dextrose (Dextrose 50%) 25 ml Q30M PRN IV Hypoglycemia 11/18/18 10:15 12/18/18 10:14 Dextrose (Dextrose 50%) 50 ml Q30M PRN IV Hypoglycemia 11/18/18 10:15 12/18/18 10:14 Docusate Sodium (Colace) 100 mg EVERY 12 HOURS ORAL 11/18/18 21:00 12/18/18 20:59 11/20/18 08:43 Escitalopram Oxalate (Lexapro) 5 mg DAILY ORAL 11/19/18 09:00 12/19/18 08:59 11/20/18 08:43 Furosemide (Lasix) 40 mg DAILY ORAL 11/19/18 09:00 12/19/18 08:59 11/20/18 08:45 Heparin Sodium (Porcine) (Heparin 5000 units/ml) 5,000 units EVERY 12 HOURS SUBQ 11/18/18 21:00 12/18/18 20:59 11/19/18 21:38 Hydralazine HCl (Apresoline) 25 mg Q8HR ORAL 11/18/18 14:00 12/18/18 13:59 11/20/18 06:10 Levothyroxine Sodium (Synthroid) 25 mcg Q24H ORAL 11/19/18 06:30 12/19/18 06:29 11/20/18 06:11 Lisinopril (Prinivil) 40 mg DAILY ORAL 11/19/18 09:00 12/19/18 08:59 11/19/18 08:37 Magnesium Hydroxide (Mom) 30 ml HSPRN PRN ORAL Constipation 11/18/18 10:15 12/18/18 10:14 Morphine Sulfate (Morphine Sulfate) 2 mg Q6H PRN IVP Moderate Pain (Pain Scale 4-6) 11/18/18 10:15 11/25/18 10:14 11/20/18 08:59 Morphine Sulfate (Morphine Sulfate) 4 mg Q6H PRN IVP Severe Pain (Pain Scale 7-10) 11/18/18 10:15 11/25/18 10:14 11/20/18 00:16 Nitroglycerin (Ntg) 0.4 mg Q5M PRN SL Prn Chest Pain 11/18/18 10:15 12/18/18 10:14 11/20/18 12:21 Ondansetron HCl (Zofran) 4 mg Q6H PRN IVP Nausea & Vomiting 11/18/18 10:15 12/18/18 10:14 Pantoprazole (Protonix) 40 mg DAILY ORAL 11/19/18 09:00 12/19/18 08:59 11/20/18 08:43 Polyethylene Glycol (Miralax) 17 gm DAILYPRN PRN ORAL Constipation 11/18/18 10:15 12/18/18 10:14 Ranolazine (Ranexa ER 500mg) 1,000 mg Q12HR ORAL 11/18/18 21:00 12/18/18 20:59 11/19/18 21:37 Zolpidem Tartrate (Ambien) 5 mg DAILYPRN PRN ORAL Insomnia 11/18/18 10:15 11/25/18 10:14 Chepe Luong MD Nov 20, 2018 12:48
[2018-11-20 16:00] VITALS: BP 128/64
--- NOTE | 2018-11-20 16:24 | Cardiology Report ---
APPROVED REPORT EKG Measurement Heart [id number] 136P31 [id number] sinus with v pacing
--- NOTE | 2018-11-20 16:30 | Cardiology Report ---
APPROVED REPORT EKG Measurement Heart [id number] RI 144P41 [id number] atrial sensed v paced
[2018-11-20] MEDS: cefTRIAXone 1 GM in D5W 50 ML IVPB SCH (17:15)
--- NOTE | 2018-11-20 17:29 | Internal Med Progress Note ---
Subjective Date of Service: Nov 20, 2018 Physician Name Nikhil West Attending Physician Abdias Hunter MD Current Medications Medications (Trade) Dose Ordered Sig/Scout Route PRN Reason Start Time Stop Time Status Last Admin Dose Admin Acetaminophen (Tylenol) 650 mg Q4H PRN ORAL Mild Pain (Pain Scale 1-3) 11/18/18 10:15 12/18/18 10:14 Acetaminophen (Tylenol) 650 mg Q4H PRN ORAL fever 11/18/18 10:15 12/18/18 10:14 Acetaminophen (Tylenol) 650 mg Q4H PRN RECTAL Mild Pain (Pain Scale 1-3) 11/18/18 10:15 12/18/18 10:14 Aspirin (ASA) 81 mg DAILY ORAL 11/19/18 09:00 12/19/18 08:59 11/20/18 08:45 Atorvastatin Calcium (Lipitor) 40 mg BEDTIME ORAL 11/18/18 21:00 12/18/18 20:59 11/19/18 21:37 Bisacodyl (Dulcolax) 10 mg DAILYPRN PRN RECTAL Constipation 11/18/18 10:15 12/18/18 10:14 Carvedilol (Coreg) 3.125 mg EVERY 12 HOURS ORAL 11/18/18 21:00 12/18/18 20:59 11/19/18 21:36 Ceftriaxone Sodium 1 gm/ Dextrose 50 ml @ 100 mls/hr Q24H IVPB 11/18/18 17:00 11/25/18 16:59 11/20/18 17:15 Clopidogrel Bisulfate (Plavix) 75 mg DAILY ORAL 11/19/18 09:00 12/19/18 08:59 11/20/18 08:43 Dextrose (Dextrose 50%) 25 ml Q30M PRN IV Hypoglycemia 11/18/18 10:15 12/18/18 10:14 Dextrose (Dextrose 50%) 50 ml Q30M PRN IV Hypoglycemia 11/18/18 10:15 12/18/18 10:14 Docusate Sodium (Colace) 100 mg EVERY 12 HOURS ORAL 11/18/18 21:00 12/18/18 20:59 11/20/18 08:43 Escitalopram Oxalate (Lexapro) 5 mg DAILY ORAL 11/19/18 09:00 12/19/18 08:59 11/20/18 08:43 Furosemide (Lasix) 40 mg DAILY ORAL 11/19/18 09:00 12/19/18 08:59 11/20/18 08:45 Heparin Sodium (Porcine) (Heparin 5000 units/ml) 5,000 units EVERY 12 HOURS SUBQ 11/18/18 21:00 12/18/18 20:59 11/19/18 21:38 Hydralazine HCl (Apresoline) 25 mg Q8HR ORAL 11/18/18 14:00 12/18/18 13:59 11/20/18 06:10 Levothyroxine Sodium (Synthroid) 25 mcg Q24H ORAL 11/19/18 06:30 12/19/18 06:29 11/20/18 06:11 Lisinopril (Prinivil) 40 mg DAILY ORAL 11/19/18 09:00 12/19/18 08:59 11/19/18 08:37 Magnesium Hydroxide (Mom) 30 ml HSPRN PRN ORAL Constipation 11/18/18 10:15 12/18/18 10:14 Morphine Sulfate (Morphine Sulfate) 2 mg Q6H PRN IVP Moderate Pain (Pain Scale 4-6) 11/18/18 10:15 11/25/18 10:14 11/20/18 15:08 Morphine Sulfate (Morphine Sulfate) 4 mg Q6H PRN IVP Severe Pain (Pain Scale 7-10) 11/18/18 10:15 11/25/18 10:14 11/20/18 00:16 Nitroglycerin (Ntg) 0.4 mg Q5M PRN SL Prn Chest Pain 11/18/18 10:15 12/18/18 10:14 11/20/18 12:21 Ondansetron HCl (Zofran) 4 mg Q6H PRN IVP Nausea & Vomiting 11/18/18 10:15 12/18/18 10:14 Pantoprazole (Protonix) 40 mg DAILY ORAL 11/19/18 09:00 12/19/18 08:59 11/20/18 08:43 Polyethylene Glycol (Miralax) 17 gm DAILYPRN PRN ORAL Constipation 11/18/18 10:15 12/18/18 10:14 Ranolazine (Ranexa ER 500mg) 1,000 mg Q12HR ORAL 11/21/18 09:00 12/21/18 08:59 Zolpidem Tartrate (Ambien) 5 mg DAILYPRN PRN ORAL Insomnia 11/18/18 10:15 11/25/18 10:14 Allergies: Coded Allergies: No Known Allergies (Verified , 09/12/10) ROS Limited/Unobtainable: No Constitutional: Reports: no symptoms HEENT: Reports: no symptoms Cardiovascular: Reports: chest pain Respiratory: Reports: no symptoms Gastrointestinal/Abdominal: Reports: no symptoms Genitourinary: Reports: no symptoms Neurologic/Psychiatric: Reports: no symptoms Subjective 78 YO M admitted with chest pain. Cover for Int Med-Dr Hunter. C/O chest pain- wants morphine q 4 hr Objective Last Vital Signs Date Time Temp Pulse Resp B/P (MAP) Pulse Ox O2 Delivery O2 Flow Rate FiO2 11/20/18 16:00 97.2 67 20 128/64 (85) 100 94 11/20/18 09:00 Nasal Cannula 2.0 Laboratory Tests Test 11/20/18 07:10 White Blood Count 5.5 K/UL (4.8-10.8) Red Blood Count 3.95 M/UL (4.70-6.10) L Hemoglobin 9.8 G/DL (14.2-18.0) #L Hematocrit 30.4 % (42.0-52.0) #L Mean Corpuscular Volume 77 FL (80-99) L Mean Corpuscular Hemoglobin 24.9 PG (27.0-31.0) L Mean Corpuscular Hemoglobin Concent 32.3 G/DL (32.0-36.0) Red Cell Distribution Width 26.0 % (11.6-14.8) H Platelet Count 137 K/UL (150-450) L Mean Platelet Volume 12.4 FL (6.5-10.1) H Neutrophils (%) (Auto) 37.7 % (45.0-75.0) L Lymphocytes (%) (Auto) 39.9 % (20.0-45.0) Monocytes (%) (Auto) 13.7 % (1.0-10.0) H Eosinophils (%) (Auto) 5.7 % (0.0-3.0) H Basophils (%) (Auto) 3.0 % (0.0-2.0) H Sodium Level 136 MMOL/L (136-145) Potassium Level 3.9 MMOL/L (3.5-5.1) Chloride Level 101 MMOL/L (98-107) Carbon Dioxide Level 28 MMOL/L (21-32) Anion Gap 7 mmol/L (5-15) Blood Urea Nitrogen 23 mg/dL (7-18) H Creatinine 1.3 MG/DL (0.55-1.30) Estimat Glomerular Filtration Rate mL/min (>60) Glucose Level 90 MG/DL (74-106) Calcium Level 8.7 MG/DL (8.5-10.1) Microbiology Date/Time Source Procedure Growth Status 11/18/18 07:20 Nasal Nares MRSA Culture - Final NO METHICILLIN RESISTANT STAPH AUREUS... Complete 11/18/18 08:15 Urine,Clean Catch Urine Culture - Final Escherichia Coli Complete 11/18/18 07:20 Rectum VRE Culture - Final NO VANCOMYCIN RESISTANT ENTEROCOCCUS ... Complete 11/18/18 07:20 Rectum - Final NO CARBAPENEM-RESISTANT ENTEROBACTERI... Complete Intake and Output 11/19/18 11/20/18 18:59 06:59 Intake Total 640 ml Output Total 200 ml 900 ml Balance 440 ml -900 ml Intake Oral 640 ml Output Urine Total 200 ml 900 ml # Voids 3 Objective PHYSICAL EXAMINATION: GENERAL: The patient awake, responsive, no acute distress. HEAD AND NECK: Pupils are equal and reactive to light. Extraocular movements are intact. Neck was supple. No JVD LUNGS: Good air entry. No wheeze or rales. HEART: S1, S2. Distant heart sounds. No murmur or gallops. Pacemaker in left-sided chest wall. ABDOMEN: Soft, nondistended, nontender. EXTREMITIES: No cyanosis, clubbing, edema. Varicose veins, bilateral lower extremities. NEUROLOGIC: Cranial nerves II through XII grossly intact. Motor is 5/5 in all extremities. Gait is intact. RECTAL: Refused and deferred. GENITOURINARY: Refused and deferred. PSYCHIATRIC: Mood and affect is depressed. Assessment/Plan Assessment/Plan ASSESSMENT: 1. Chest pain, possible acute coronary syndrome. 2. Hypertension. 3. Dyslipidemia. 4. Congestive heart failure. 5. Coronary artery disease. 6. Sick sinus syndrome, status pacemaker. 7. UTI. PLAN: Admit the patient to telemetry. Discussed case with Dr. Gee from Cardiology Electrophysiology. Dr. Luong, Pulmonary Critical Care. Urine cult=E. Coli. Continue Rocephin. DVT prophylaxis, heparin subcutaneous. Code status, Full Code. The patient is expected to be in the hospital greater than 2 days Discharge paln: [facility] Nikhil West MD Nov 20, 2018 17:29
[2018-11-20 20:00] VITALS: BP 126/58
[2018-11-20] MEDS: Atorvastatin 20mg tab ORAL SCH (20:44)
--- NOTE | 2018-11-20 21:16 | General Progress Note ---
Assessment/Plan Problem List: (1) Anxiety disorder ICD Codes: F41.9 - Anxiety disorder, unspecified SNOMED: 268072051 (2) MDD (major depressive disorder), recurrent episode, moderate ICD Codes: F33.1 - Major depressive disorder, recurrent, moderate SNOMED: 35939804, [id number] Assessment/Plan Lexapro 10mg po qam provided ro/st Subjective Constitutional: Reports: malaise, weakness Neurologic/Psychiatric: Reports: anxiety, depressed, emotional problems, headache Allergies: Coded Allergies: No Known Allergies (Verified , 09/12/10) Objective Last 24 Hour Vital Signs Date Time Temp Pulse Resp B/P (MAP) Pulse Ox O2 Delivery O2 Flow Rate FiO2 11/20/18 20:44 87 126/58 11/20/18 17:57 128/64 11/20/18 16:00 97.2 67 20 128/64 (85) 100 94 11/20/18 16:00 67 11/20/18 14:00 105/56 11/20/18 12:21 103/53 11/20/18 12:00 60 11/20/18 12:00 97.2 65 20 103/53 (70) 98 94 11/20/18 09:00 Nasal Cannula 2.0 11/20/18 09:00 110/54 11/20/18 09:00 94 110/54 11/20/18 08:00 70 11/20/18 08:00 96.9 70 20 110/54 (72) 100 94 11/20/18 06:10 138/72 11/20/18 04:00 62 11/20/18 04:00 98.8 94 20 138/72 (94) 99 94 11/20/18 00:00 63 11/20/18 00:00 97.0 63 20 133/66 (88) 100 63 11/19/18 22:00 115/64 11/19/18 21:36 66 134/64 Intake and Output 11/19/18 11/20/18 19:00 07:00 Intake Total 640 ml Output Total 200 ml 900 ml Balance 440 ml -900 ml Intake Oral 640 ml Output Urine Total 200 ml 900 ml # Voids 3 Laboratory Tests 11/20/18 07:10: White Blood Count 5.5, Red Blood Count 3.95L, Hemoglobin 9.8#L, Hematocrit 30.4# L, Mean Corpuscular Volume 77L, Mean Corpuscular Hemoglobin 24.9L, Mean Corpuscular Hemoglobin Concent 32.3, Red Cell Distribution Width 26.0H, Platelet Count 137L, Mean Platelet Volume 12.4H, Neutrophils (%) (Auto) 37.7L, Lymphocytes (%) (Auto) 39.9, Monocytes (%) (Auto) 13.7H, Eosinophils (%) (Auto) 5.7H, Basophils (%) (Auto) 3.0H, Sodium Level 136, Potassium Level 3.9, Chloride Level 101, Carbon Dioxide Level 28, Anion Gap 7, Blood Urea Nitrogen 23H, Creatinine 1.3, Estimat Glomerular Filtration Rate , Glucose Level 90, Calcium Level 8.7 Height (Feet): 5 Height (Inches): 6.00 Weight (Pounds): 135 General Appearance: no apparent distress, alert, confused - slightly confused about the month year and situation Patti Gaines MD Nov 20, 2018 21:16
[2018-11-21] VITALS (7 sets, daily range): BP systolic 88–154; BP diastolic 42–73
[2018-11-21] MEDS: HydrALAZINE 25mg tab ORAL SCH ×2 (06:00→13:31)
[2018-11-21] MEDS: Levothyroxine 25mcg tab ORAL SCH (06:30)
[2018-11-21] MEDS: Morphine Sulfate 4mg/ml Inj (IV USE ONLY) IVP PRN (07:49)
[2018-11-21 08:15] LABS: HEMATOCRIT 30.3 % (42.0-52.0); HEMOGLOBIN 9.7 G/DL (14.2-18.0); MEAN CORPUSCULAR VOLUME 77 FL (80-99); PLATELET COUNT 84 K/UL (150-450); RED BLOOD COUNT 3.93 M/UL (4.70-6.10); RED CELL DISTRIBUTION WIDTH 26.3 % (11.6-14.8); WHITE BLOOD COUNT 4.3 K/UL (4.8-10.8)
[2018-11-21 08:30] LABS: ANION GAP 7 mmol/L (5-15); BLOOD UREA NITROGEN 28 mg/dL (7-18); CALCIUM 8.2 MG/DL (8.5-10.1); CARBON DIOXIDE 29 MMOL/L (21-32); CHLORIDE 99 MMOL/L (98-107); CREATININE 1.2 MG/DL (0.55-1.30); POTASSIUM 3.7 MMOL/L (3.5-5.1); SODIUM 135 MMOL/L (136-145)
[2018-11-21] MEDS: Docusate 100mg cap ORAL SCH ×2 (08:58→22:03)
[2018-11-21] MEDS: Aspirin Baby 81mg ORAL SCH (08:58)
[2018-11-21] MEDS: Furosemide 40mg tab ORAL SCH (08:58)
[2018-11-21] MEDS: Lisinopril 20mg tab ORAL SCH (08:59)
[2018-11-21] MEDS: Heparin 5000 units/ml inj SUBQ SCH (09:00)
[2018-11-21] MEDS: Ranolazine 500mg tab ORAL SCH ×2 (10:16→22:03)
--- NOTE | 2018-11-21 12:07 | Pulmonology Progress Note ---
Assessment/Plan Problems: (1) ACS (acute coronary syndrome) (2) Cardiomyopathy (3) HTN (hypertension) (4) Pacemaker (5) Hypothyroidism (6) CAD (coronary artery disease) Assessment/Plan troponin negative check echo f/u cardiology evaluation titrate cardiac meds check electrolytes stress test ordered, pt ate holiday Subjective ROS Limited/Unobtainable: No Constitutional: Reports: no symptoms HEENT: Repors: no symptoms Respiratory: Reports: no symptoms Allergies: Coded Allergies: No Known Allergies (Verified , 09/12/10) Objective Last 24 Hour Vital Signs Date Time Temp Pulse Resp B/P (MAP) Pulse Ox O2 Delivery O2 Flow Rate FiO2 11/21/18 09:00 Nasal Cannula 2.0 11/21/18 08:59 131/58 11/21/18 08:58 70 131/58 11/21/18 08:00 72 11/21/18 08:00 97.4 70 20 131/58 (82) 100 70 11/21/18 04:00 98.9 69 18 134/63 (86) 100 69 11/21/18 04:00 66 11/21/18 00:00 97.0 67 18 142/73 (96) 100 67 11/21/18 00:00 69 11/20/18 23:52 142/73 11/20/18 21:00 Nasal Cannula 2.0 11/20/18 20:44 87 126/58 11/20/18 20:00 69 11/20/18 20:00 97.7 89 18 126/58 (80) 100 67 11/20/18 17:57 128/64 11/20/18 16:00 97.2 67 20 128/64 (85) 100 94 11/20/18 16:00 67 11/20/18 14:00 105/56 11/20/18 12:21 103/53 Intake and Output 11/20/18 11/21/18 19:00 07:00 Intake Total 740 ml Output Total 850 ml 800 ml Balance -110 ml -800 ml Intake Oral 690 ml IV Total 50 ml Output Urine Total 850 ml 800 ml # Voids 2 Objective General Appearance: cachetic Lines, tubes and drains: peripheral HEENT: normocephalic, atraumatic Neck: non-tender, normal alignment Respiratory/Chest: chest wall non-tender, lungs clear Breasts: no masses Cardiovascular/Chest: normal peripheral pulses, normal rate Abdomen: normal bowel sounds, non tender Genitourinary/Rectal: normal genital exam Extremities: normal range of motion Skin Exam: normal pigmentation 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 Laboratory Tests 11/21/18 07:35: White Blood Count 4.3L, Red Blood Count 3.93L, Hemoglobin 9.7L, Hematocrit 30.3L , Mean Corpuscular Volume 77L, Mean Corpuscular Hemoglobin 24.7L, Mean Corpuscular Hemoglobin Concent 32.0, Red Cell Distribution Width 26.3H, Platelet Count 84L, Mean Platelet Volume 7.2, Neutrophils (%) (Auto) , Lymphocytes (%) (Auto) , Monocytes (%) (Auto) , Eosinophils (%) (Auto) , Basophils (%) (Auto) , Neutrophils % (Manual) [Pending], Lymphocytes % (Manual) [Pending], Platelet Estimate [Pending], Platelet Morphology [Pending], Sodium Level 135L, Potassium Level 3.7, Chloride Level 99, Carbon Dioxide Level 29, Anion Gap 7, Blood Urea Nitrogen 28H, Creatinine 1.2, Estimat Glomerular Filtration Rate , Glucose Level 99, Calcium Level 8.2L Current Medications Medications (Trade) Dose Ordered Sig/Scout Route PRN Reason Start Time Stop Time Status Last Admin Dose Admin Acetaminophen (Tylenol) 650 mg Q4H PRN ORAL Mild Pain (Pain Scale 1-3) 11/18/18 10:15 12/18/18 10:14 Acetaminophen (Tylenol) 650 mg Q4H PRN ORAL fever 11/18/18 10:15 12/18/18 10:14 Acetaminophen (Tylenol) 650 mg Q4H PRN RECTAL Mild Pain (Pain Scale 1-3) 11/18/18 10:15 12/18/18 10:14 Aspirin (ASA) 81 mg DAILY ORAL 11/19/18 09:00 12/19/18 08:59 11/21/18 08:58 Atorvastatin Calcium (Lipitor) 40 mg BEDTIME ORAL 11/18/18 21:00 12/18/18 20:59 11/20/18 20:44 Bisacodyl (Dulcolax) 10 mg DAILYPRN PRN RECTAL Constipation 11/18/18 10:15 12/18/18 10:14 Carvedilol (Coreg) 3.125 mg EVERY 12 HOURS ORAL 11/18/18 21:00 12/18/18 20:59 11/21/18 08:58 Ceftriaxone Sodium 1 gm/ Dextrose 50 ml @ 100 mls/hr Q24H IVPB 11/18/18 17:00 11/25/18 16:59 11/20/18 17:15 Clopidogrel Bisulfate (Plavix) 75 mg DAILY ORAL 11/19/18 09:00 12/19/18 08:59 11/21/18 08:58 Dextrose (Dextrose 50%) 25 ml Q30M PRN IV Hypoglycemia 11/18/18 10:15 12/18/18 10:14 Dextrose (Dextrose 50%) 50 ml Q30M PRN IV Hypoglycemia 11/18/18 10:15 12/18/18 10:14 Docusate Sodium (Colace) 100 mg EVERY 12 HOURS ORAL 11/18/18 21:00 12/18/18 20:59 11/21/18 08:58 Escitalopram Oxalate (Lexapro) 5 mg DAILY ORAL 11/19/18 09:00 12/19/18 08:59 11/21/18 08:57 Furosemide (Lasix) 40 mg DAILY ORAL 11/19/18 09:00 12/19/18 08:59 11/21/18 08:58 Heparin Sodium (Porcine) (Heparin 5000 units/ml) 5,000 units EVERY 12 HOURS SUBQ 11/18/18 21:00 12/18/18 20:59 11/20/18 20:44 Hydralazine HCl (Apresoline) 25 mg Q8HR ORAL 11/18/18 14:00 12/18/18 13:59 11/20/18 23:52 Levothyroxine Sodium (Synthroid) 25 mcg Q24H ORAL 11/19/18 06:30 12/19/18 06:29 11/20/18 06:11 Lisinopril (Prinivil) 40 mg DAILY ORAL 11/19/18 09:00 12/19/18 08:59 11/21/18 08:59 Magnesium Hydroxide (Mom) 30 ml HSPRN PRN ORAL Constipation 11/18/18 10:15 12/18/18 10:14 Morphine Sulfate (Morphine Sulfate) 2 mg Q4H PRN IVP Moderate Pain (Pain Scale 4-6) 11/20/18 19:00 2/24/19 18:59 Morphine Sulfate (Morphine Sulfate) 4 mg Q4H PRN IVP Severe Pain (Pain Scale 7-10) 11/20/18 17:30 11/27/18 17:29 11/21/18 07:49 Nitroglycerin (Ntg) 0.4 mg Q5M PRN SL Prn Chest Pain 11/18/18 10:15 12/18/18 10:14 11/20/18 17:57 Ondansetron HCl (Zofran) 4 mg Q6H PRN IVP Nausea & Vomiting 11/18/18 10:15 12/18/18 10:14 Pantoprazole (Protonix) 40 mg DAILY ORAL 11/19/18 09:00 12/19/18 08:59 11/21/18 08:58 Polyethylene Glycol (Miralax) 17 gm DAILYPRN PRN ORAL Constipation 11/18/18 10:15 12/18/18 10:14 Ranolazine (Ranexa ER 500mg) 1,000 mg Q12HR ORAL 11/21/18 09:00 12/21/18 08:59 11/21/18 10:16 Zolpidem Tartrate (Ambien) 5 mg DAILYPRN PRN ORAL Insomnia 11/18/18 10:15 11/25/18 10:14 Chepe Luong MD Nov 21, 2018 12:07
--- NOTE | 2018-11-21 14:24 | Cardiac Electrophysiology PN ---
Assessment/Plan Assessment/Plan 1. Atypical chest pain and hx of CABG. Likely due to severe anemia. Ruled out [place]. Nuclear stress test pending Continue aspirin, Plavix, Lipitor and Coreg. 2. Cardiomyopathy. Echocardiogram now EF 55%. Increase Coreg to 12.5 mg b.i.d., lisinopril 40 mg daily, Lasix 40 mg daily and Aldactone DC hydralazine 3. Status post [facility] [place] atrial biventricular defibrillator. Interrogated and showed Nl Fx 4. Severe anemia, S/P PRBC. FU GI DW RN Subjective Subjective No CP or SOB. In SR. No events Objective Last 24 Hour Vital Signs Date Time Temp Pulse Resp B/P (MAP) Pulse Ox O2 Delivery O2 Flow Rate FiO2 11/21/18 13:00 62 125/56 (79) 11/21/18 12:00 97.4 60 20 88/42 (57) 97 60 11/21/18 09:00 Nasal Cannula 2.0 11/21/18 08:59 131/58 11/21/18 08:58 70 131/58 11/21/18 08:00 72 11/21/18 08:00 97.4 70 20 131/58 (82) 100 70 11/21/18 04:00 98.9 69 18 134/63 (86) 100 69 11/21/18 04:00 66 11/21/18 00:00 97.0 67 18 142/73 (96) 100 67 11/21/18 00:00 69 11/20/18 23:52 142/73 11/20/18 21:00 Nasal Cannula 2.0 11/20/18 20:44 87 126/58 11/20/18 20:00 69 11/20/18 20:00 97.7 89 18 126/58 (80) 100 67 11/20/18 17:57 128/64 11/20/18 16:00 97.2 67 20 128/64 (85) 100 94 11/20/18 16:00 67 Intake and Output 11/20/18 11/21/18 19:00 07:00 Intake Total 740 ml Output Total 850 ml 800 ml Balance -110 ml -800 ml Intake Oral 690 ml IV Total 50 ml Output Urine Total 850 ml 800 ml # Voids 2 Laboratory Tests Test 11/21/18 07:35 White Blood Count 4.3 K/UL (4.8-10.8) L Red Blood Count 3.93 M/UL (4.70-6.10) L Hemoglobin 9.7 G/DL (14.2-18.0) L Hematocrit 30.3 % (42.0-52.0) L Mean Corpuscular Volume 77 FL (80-99) L Mean Corpuscular Hemoglobin 24.7 PG (27.0-31.0) L Mean Corpuscular Hemoglobin Concent 32.0 G/DL (32.0-36.0) Red Cell Distribution Width 26.3 % (11.6-14.8) H Platelet Count 84 K/UL (150-450) L Mean Platelet Volume 7.2 FL (6.5-10.1) Neutrophils (%) (Auto) % (45.0-75.0) Lymphocytes (%) (Auto) % (20.0-45.0) Monocytes (%) (Auto) % (1.0-10.0) Eosinophils (%) (Auto) % (0.0-3.0) Basophils (%) (Auto) % (0.0-2.0) Differential Total Cells Counted 100 Neutrophils % (Manual) 28 % (45-75) L Lymphocytes % (Manual) 59 % (20-45) H Monocytes % (Manual) 8 % (1-10) Eosinophils % (Manual) 5 % (0-3) H Basophils % (Manual) 0 % (0-2) Band Neutrophils 0 % (0-8) Platelet Estimate Decreased L Platelet Morphology Normal Hypochromasia 2+ Anisocytosis 3+ Microcytosis 2+ Target Cells 1+ [place] Cells 1+ Sodium Level 135 MMOL/L (136-145) L Potassium Level 3.7 MMOL/L (3.5-5.1) Chloride Level 99 MMOL/L (98-107) Carbon Dioxide Level 29 MMOL/L (21-32) Anion Gap 7 mmol/L (5-15) Blood Urea Nitrogen 28 mg/dL (7-18) H Creatinine 1.2 MG/DL (0.55-1.30) Estimat Glomerular Filtration Rate mL/min (>60) Glucose Level 99 MG/DL (74-106) Calcium Level 8.2 MG/DL (8.5-10.1) L Objective HEAD AND NECK: No JVD. LUNGS: Coarse rhonchi. CARDIOVASCULAR: Regular S1 and S2 with no gallop or murmur. Sternotomy is intact. Defibrillator is in left subclavian. ABDOMEN: Soft. EXTREMITIES: 1+ pitting edema. Satinder Gee MD Nov 21, 2018 14:24
[2018-11-21] MEDS: cefTRIAXone 1 GM in D5W 50 ML IVPB SCH (16:41)
--- NOTE | 2018-11-21 16:53 | Internal Med Progress Note ---
Subjective Date of Service: Nov 21, 2018 Physician Name Nikhil West Attending Physician Abdias Hunter MD Current Medications Medications (Trade) Dose Ordered Sig/Scout Route PRN Reason Start Time Stop Time Status Last Admin Dose Admin Acetaminophen (Tylenol) 650 mg Q4H PRN ORAL Mild Pain (Pain Scale 1-3) 11/18/18 10:15 12/18/18 10:14 Acetaminophen (Tylenol) 650 mg Q4H PRN ORAL fever 11/18/18 10:15 12/18/18 10:14 Acetaminophen (Tylenol) 650 mg Q4H PRN RECTAL Mild Pain (Pain Scale 1-3) 11/18/18 10:15 12/18/18 10:14 Aspirin (ASA) 81 mg DAILY ORAL 11/19/18 09:00 12/19/18 08:59 11/21/18 08:58 Atorvastatin Calcium (Lipitor) 40 mg BEDTIME ORAL 11/18/18 21:00 12/18/18 20:59 11/20/18 20:44 Bisacodyl (Dulcolax) 10 mg DAILYPRN PRN RECTAL Constipation 11/18/18 10:15 12/18/18 10:14 Carvedilol (Coreg) 12.5 mg EVERY 12 HOURS ORAL 11/21/18 21:00 12/18/18 20:59 Ceftriaxone Sodium 1 gm/ Dextrose 50 ml @ 100 mls/hr Q24H IVPB 11/18/18 17:00 11/25/18 16:59 11/21/18 16:41 Clopidogrel Bisulfate (Plavix) 75 mg DAILY ORAL 11/19/18 09:00 12/19/18 08:59 11/21/18 08:58 Dextrose (Dextrose 50%) 25 ml Q30M PRN IV Hypoglycemia 11/18/18 10:15 12/18/18 10:14 Dextrose (Dextrose 50%) 50 ml Q30M PRN IV Hypoglycemia 11/18/18 10:15 12/18/18 10:14 Docusate Sodium (Colace) 100 mg EVERY 12 HOURS ORAL 11/18/18 21:00 12/18/18 20:59 11/21/18 08:58 Escitalopram Oxalate (Lexapro) 5 mg DAILY ORAL 11/19/18 09:00 12/19/18 08:59 11/21/18 08:57 Furosemide (Lasix) 40 mg DAILY ORAL 11/19/18 09:00 12/19/18 08:59 11/21/18 08:58 Heparin Sodium (Porcine) (Heparin 5000 units/ml) 5,000 units EVERY 12 HOURS SUBQ 11/18/18 21:00 12/18/18 20:59 11/20/18 20:44 Levothyroxine Sodium (Synthroid) 25 mcg Q24H ORAL 11/19/18 06:30 12/19/18 06:29 11/20/18 06:11 Lisinopril (Prinivil) 40 mg DAILY ORAL 11/19/18 09:00 12/19/18 08:59 11/21/18 08:59 Magnesium Hydroxide (Mom) 30 ml HSPRN PRN ORAL Constipation 11/18/18 10:15 12/18/18 10:14 Morphine Sulfate (Morphine Sulfate) 2 mg Q4H PRN IVP Moderate Pain (Pain Scale 4-6) 11/20/18 19:00 11/27/18 18:59 Morphine Sulfate (Morphine Sulfate) 4 mg Q4H PRN IVP Severe Pain (Pain Scale 7-10) 11/20/18 17:30 11/27/18 17:29 11/21/18 07:49 Nitroglycerin (Ntg) 0.4 mg Q5M PRN SL Prn Chest Pain 11/18/18 10:15 12/18/18 10:14 11/20/18 17:57 Ondansetron HCl (Zofran) 4 mg Q6H PRN IVP Nausea & Vomiting 11/18/18 10:15 12/18/18 10:14 Pantoprazole (Protonix) 40 mg DAILY ORAL 11/19/18 09:00 12/19/18 08:59 11/21/18 08:58 Polyethylene Glycol (Miralax) 17 gm DAILYPRN PRN ORAL Constipation 11/18/18 10:15 12/18/18 10:14 Ranolazine (Ranexa ER 500mg) 1,000 mg Q12HR ORAL 11/21/18 09:00 12/21/18 08:59 11/21/18 10:16 Zolpidem Tartrate (Ambien) 5 mg DAILYPRN PRN ORAL Insomnia 11/18/18 10:15 11/25/18 10:14 Allergies: Coded Allergies: No Known Allergies (Verified , 09/12/10) ROS Limited/Unobtainable: No Constitutional: Reports: no symptoms HEENT: Reports: no symptoms Cardiovascular: Reports: chest pain Respiratory: Reports: no symptoms Gastrointestinal/Abdominal: Reports: no symptoms Genitourinary: Reports: no symptoms Neurologic/Psychiatric: Reports: no symptoms Subjective 78 YO M admitted with chest pain. Cover for Int Med-Dr Hunter. C/O chest pain- wants morphine q 4 hr. Await cardiac nuclear stress test Objective Last Vital Signs Date Time Temp Pulse Resp B/P (MAP) Pulse Ox O2 Delivery O2 Flow Rate FiO2 11/21/18 16:00 97.2 63 21 95/47 (63) 100 63 11/21/18 09:00 Nasal Cannula 2.0 Laboratory Tests Test 11/21/18 07:35 White Blood Count 4.3 K/UL (4.8-10.8) L Red Blood Count 3.93 M/UL (4.70-6.10) L Hemoglobin 9.7 G/DL (14.2-18.0) L Hematocrit 30.3 % (42.0-52.0) L Mean Corpuscular Volume 77 FL (80-99) L Mean Corpuscular Hemoglobin 24.7 PG (27.0-31.0) L Mean Corpuscular Hemoglobin Concent 32.0 G/DL (32.0-36.0) Red Cell Distribution Width 26.3 % (11.6-14.8) H Platelet Count 84 K/UL (150-450) L Mean Platelet Volume 7.2 FL (6.5-10.1) Neutrophils (%) (Auto) % (45.0-75.0) Lymphocytes (%) (Auto) % (20.0-45.0) Monocytes (%) (Auto) % (1.0-10.0) Eosinophils (%) (Auto) % (0.0-3.0) Basophils (%) (Auto) % (0.0-2.0) Differential Total Cells Counted 100 Neutrophils % (Manual) 28 % (45-75) L Lymphocytes % (Manual) 59 % (20-45) H Monocytes % (Manual) 8 % (1-10) Eosinophils % (Manual) 5 % (0-3) H Basophils % (Manual) 0 % (0-2) Band Neutrophils 0 % (0-8) Platelet Estimate Decreased L Platelet Morphology Normal Hypochromasia 2+ Anisocytosis 3+ Microcytosis 2+ Target Cells 1+ [place] Cells 1+ Sodium Level 135 MMOL/L (136-145) L Potassium Level 3.7 MMOL/L (3.5-5.1) Chloride Level 99 MMOL/L (98-107) Carbon Dioxide Level 29 MMOL/L (21-32) Anion Gap 7 mmol/L (5-15) Blood Urea Nitrogen 28 mg/dL (7-18) H Creatinine 1.2 MG/DL (0.55-1.30) Estimat Glomerular Filtration Rate mL/min (>60) Glucose Level 99 MG/DL (74-106) Calcium Level 8.2 MG/DL (8.5-10.1) L Intake and Output 11/20/18 11/21/18 18:59 06:59 Intake Total 740 ml Output Total 850 ml 800 ml Balance -110 ml -800 ml Intake Oral 690 ml IV Total 50 ml Output Urine Total 850 ml 800 ml # Voids 2 Objective PHYSICAL EXAMINATION: GENERAL: The patient awake, responsive, no acute distress. HEAD AND NECK: Pupils are equal and reactive to light. Extraocular movements are intact. Neck was supple. No JVD LUNGS: Good air entry. No wheeze or rales. HEART: S1, S2. Distant heart sounds. No murmur or gallops. Pacemaker in left-sided chest wall. ABDOMEN: Soft, nondistended, nontender. EXTREMITIES: No cyanosis, clubbing, edema. Varicose veins, bilateral lower extremities. NEUROLOGIC: Cranial nerves II through XII grossly intact. Motor is 5/5 in all extremities. Gait is intact. RECTAL: Refused and deferred. GENITOURINARY: Refused and deferred. PSYCHIATRIC: Mood and affect is depressed. Assessment/Plan Assessment/Plan ASSESSMENT: 1. Chest pain, possible acute coronary syndrome. 2. Hypertension. 3. Dyslipidemia. 4. Congestive heart failure. 5. Coronary artery disease. 6. Sick sinus syndrome, status pacemaker. 7. UTI. PLAN: Admit the patient to telemetry. Discussed case with Dr. Gee from Cardiology Electrophysiology. Await cardiac nuclear stress test Dr. Luong, Pulmonary Critical Care. Urine cult=E. Coli. Continue Rocephin. DVT prophylaxis, heparin subcutaneous. Code status, Full Code. The patient is expected to be in the hospital greater than 2 days Discharge paln: [facility] Nikhil West MD Nov 21, 2018 16:53
[2018-11-21] MEDS ORDERED: NS 275ml ONE (19:54)
--- NOTE | 2018-11-21 21:34 | General Progress Note ---
Assessment/Plan Problem List: (1) MDD (major depressive disorder), recurrent episode, moderate ICD Codes: F33.1 - Major depressive disorder, recurrent, moderate SNOMED: 42255076, 443347326 (2) Anxiety disorder ICD Codes: F41.9 - Anxiety disorder, unspecified SNOMED: 855851501 Status: not improved Assessment/Plan Lexapro 10mg po qam provided ro/st Subjective Neurologic/Psychiatric: Reports: anxiety, depressed, emotional problems Allergies: Coded Allergies: No Known Allergies (Verified , 09/12/10) Objective Last 24 Hour Vital Signs Date Time Temp Pulse Resp B/P (MAP) Pulse Ox O2 Delivery O2 Flow Rate FiO2 11/21/18 16:00 63 11/21/18 16:00 97.2 63 21 95/47 (63) 100 63 11/21/18 13:00 62 125/56 (79) 11/21/18 12:00 97.4 60 20 88/42 (57) 97 60 11/21/18 12:00 72 11/21/18 09:00 Nasal Cannula 2.0 11/21/18 08:59 131/58 11/21/18 08:58 70 131/58 11/21/18 08:00 72 11/21/18 08:00 97.4 70 20 131/58 (82) 100 70 11/21/18 04:00 98.9 69 18 134/63 (86) 100 69 11/21/18 04:00 66 11/21/18 00:00 97.0 67 18 142/73 (96) 100 67 11/21/18 00:00 69 11/20/18 23:52 142/73 Intake and Output 11/20/18 11/21/18 18:59 06:59 Intake Total 740 ml Output Total 850 ml 800 ml Balance -110 ml -800 ml Intake Oral 690 ml IV Total 50 ml Output Urine Total 850 ml 800 ml # Voids 2 Laboratory Tests 11/21/18 07:35: White Blood Count 4.3L, Red Blood Count 3.93L, Hemoglobin 9.7L, Hematocrit 30.3L , Mean Corpuscular Volume 77L, Mean Corpuscular Hemoglobin 24.7L, Mean Corpuscular Hemoglobin Concent 32.0, Red Cell Distribution Width 26.3H, Platelet Count 84L, Mean Platelet Volume 7.2, Neutrophils (%) (Auto) , Lymphocytes (%) (Auto) , Monocytes (%) (Auto) , Eosinophils (%) (Auto) , Basophils (%) (Auto) , Differential Total Cells Counted 100, Neutrophils % ( Manual) 28L, Lymphocytes % (Manual) 59H, Monocytes % (Manual) 8, Eosinophils % ( Manual) 5H, Basophils % (Manual) 0, Band Neutrophils 0, Platelet Estimate DecreasedL, Platelet Morphology Normal, Hypochromasia 2+, Anisocytosis 3+, Microcytosis 2+, Target Cells 1+, [place] Cells 1+, Sodium Level 135L, Potassium Level 3.7, Chloride Level 99, Carbon Dioxide Level 29, Anion Gap 7, Blood Urea Nitrogen 28H, Creatinine 1.2, Estimat Glomerular Filtration Rate , Glucose Level 99, Calcium Level 8.2L Height (Feet): 5 Height (Inches): 6.00 Weight (Pounds): 135 General Appearance: WD/WN, no apparent distress, alert Neurologic: oriented x 3, responsive, depressed affect Patti Gaines MD Nov 21, 2018 21:34
[2018-11-21] MEDS: Atorvastatin 20mg tab ORAL SCH (22:03)
[2018-11-21] MEDS: Carvedilol 12.5mg tab ORAL SCH (22:04)
[2018-11-22] VITALS (7 sets, daily range): BP systolic 89–118; BP diastolic 41–69
[2018-11-22] MEDS: Morphine Sulfate 4mg/ml Inj (IV USE ONLY) IVP PRN ×5 (01:08→23:18)
[2018-11-22] MEDS: Levothyroxine 25mcg tab ORAL SCH (06:00)
[2018-11-22 08:12] LABS: ANION GAP 10 mmol/L (5-15); BLOOD UREA NITROGEN 40 mg/dL (7-18); CALCIUM 8.4 MG/DL (8.5-10.1); CARBON DIOXIDE 26 MMOL/L (21-32); CHLORIDE 101 MMOL/L (98-107); CREATININE 1.4 MG/DL (0.55-1.30); POTASSIUM 5.1 MMOL/L (3.5-5.1); SODIUM 137 MMOL/L (136-145)
[2018-11-22 08:13] LABS: HEMATOCRIT 29.6 % (42.0-52.0); HEMOGLOBIN 9.2 G/DL (14.2-18.0); MEAN CORPUSCULAR VOLUME 77 FL (80-99); PLATELET COUNT 75 K/UL (150-450); RED BLOOD COUNT 3.85 M/UL (4.70-6.10); RED CELL DISTRIBUTION WIDTH 26.3 % (11.6-14.8); WHITE BLOOD COUNT 3.7 K/UL (4.8-10.8)
[2018-11-22] MEDS: Ranolazine 500mg tab ORAL SCH ×2 (08:44→21:28)
[2018-11-22] MEDS: Aspirin Baby 81mg ORAL SCH (08:44)
[2018-11-22] MEDS: Furosemide 40mg tab ORAL SCH (08:52)
[2018-11-22] MEDS: Docusate 100mg cap ORAL SCH ×2 (08:52→21:28)
[2018-11-22] MEDS: Lisinopril 20mg tab ORAL SCH (08:52)
[2018-11-22] MEDS: Carvedilol 12.5mg tab ORAL SCH ×2 (08:52→20:23)
--- NOTE | 2018-11-22 12:12 | Pulmonology Progress Note ---
Assessment/Plan Problems: (1) ACS (acute coronary syndrome) (2) Cardiomyopathy (3) HTN (hypertension) (4) Pacemaker (5) Hypothyroidism (6) CAD (coronary artery disease) Assessment/Plan low BP this morning troponin negative check echo f/u cardiology evaluation titrate cardiac meds check electrolytes bun/creatinine rising, hold RADHIKA inhibitors and lasix Subjective ROS Limited/Unobtainable: No Constitutional: Reports: no symptoms HEENT: Repors: no symptoms Respiratory: Reports: no symptoms Allergies: Coded Allergies: No Known Allergies (Verified , 09/12/10) Objective Last 24 Hour Vital Signs Date Time Temp Pulse Resp B/P (MAP) Pulse Ox O2 Delivery O2 Flow Rate FiO2 11/22/18 11:00 97.6 11/22/18 10:20 97.6 62 17 116/56 (76) 99 64 11/22/18 08:52 84/44 11/22/18 08:00 97.6 64 17 89/44 (59) 99 64 11/22/18 04:00 98.1 61 17 89/41 (57) 99 61 11/22/18 04:00 60 11/22/18 00:00 97.6 69 18 90/44 (59) 98 69 11/22/18 00:00 67 11/21/18 22:04 82 154/73 11/21/18 21:00 Nasal Cannula 2.0 11/21/18 20:00 98.0 82 17 154/73 (100) 96 82 11/21/18 20:00 63 11/21/18 16:00 63 11/21/18 16:00 97.2 63 21 95/47 (63) 100 63 11/21/18 13:00 62 125/56 (79) Intake and Output 11/21/18 11/22/18 19:00 07:00 Output Total 300 ml Balance -300 ml Output Urine Total 300 ml # Voids 3 Objective General Appearance: cachetic Lines, tubes and drains: peripheral HEENT: normocephalic, atraumatic Neck: non-tender, normal alignment Respiratory/Chest: chest wall non-tender, lungs clear Breasts: no masses Cardiovascular/Chest: normal peripheral pulses, normal rate Abdomen: normal bowel sounds, non tender Genitourinary/Rectal: normal genital exam Extremities: normal range of motion Skin Exam: normal pigmentation 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 Laboratory Tests 11/22/18 05:26: White Blood Count 3.7L, Red Blood Count 3.85L, Hemoglobin 9.2L, Hematocrit 29.6L , Mean Corpuscular Volume 77L, Mean Corpuscular Hemoglobin 23.8L, Mean Corpuscular Hemoglobin Concent 31.0L, Red Cell Distribution Width 26.3H, Platelet Count 75L, Mean Platelet Volume 6.6, Neutrophils (%) (Auto) , Lymphocytes (%) (Auto) , Monocytes (%) (Auto) , Eosinophils (%) (Auto) , Basophils (%) (Auto) , Differential Total Cells Counted 100, Neutrophils % ( Manual) 33L, Lymphocytes % (Manual) 50H, Monocytes % (Manual) 15H, Eosinophils % (Manual) 2, Basophils % (Manual) 0, Band Neutrophils 0, Platelet Estimate DecreasedL, Platelet Morphology Normal, Hypochromasia 2+, Anisocytosis 3+, Microcytosis 1+, Target Cells Occasional, Agatha Cells 1+, Acanthocytes 1+, Schistocytes Occasional, Sodium Level 137, Potassium Level 5.1, Chloride Level 101, Carbon Dioxide Level 26, Anion Gap 10, Blood Urea Nitrogen 40H, Creatinine 1.4H, Estimat Glomerular Filtration Rate , Glucose Level 85, Calcium Level 8.4L Current Medications Medications (Trade) Dose Ordered Sig/Scout Route PRN Reason Start Time Stop Time Status Last Admin Dose Admin Acetaminophen (Tylenol) 650 mg Q4H PRN ORAL Mild Pain (Pain Scale 1-3) 11/18/18 10:15 12/18/18 10:14 Acetaminophen (Tylenol) 650 mg Q4H PRN ORAL fever 11/18/18 10:15 12/18/18 10:14 Acetaminophen (Tylenol) 650 mg Q4H PRN RECTAL Mild Pain (Pain Scale 1-3) 11/18/18 10:15 12/18/18 10:14 Aspirin (ASA) 81 mg DAILY ORAL 11/19/18 09:00 12/19/18 08:59 11/22/18 08:44 Atorvastatin Calcium (Lipitor) 40 mg BEDTIME ORAL 11/18/18 21:00 12/18/18 20:59 11/21/18 22:03 Bisacodyl (Dulcolax) 10 mg DAILYPRN PRN RECTAL Constipation 11/18/18 10:15 12/18/18 10:14 Carvedilol (Coreg) 12.5 mg EVERY 12 HOURS ORAL 11/21/18 21:00 12/18/18 20:59 11/21/18 22:04 Ceftriaxone Sodium 1 gm/ Dextrose 50 ml @ 100 mls/hr Q24H IVPB 11/18/18 17:00 11/25/18 16:59 11/21/18 16:41 Clopidogrel Bisulfate (Plavix) 75 mg DAILY ORAL 11/19/18 09:00 12/19/18 08:59 11/22/18 08:45 Dextrose (Dextrose 50%) 25 ml Q30M PRN IV Hypoglycemia 11/18/18 10:15 12/18/18 10:14 Dextrose (Dextrose 50%) 50 ml Q30M PRN IV Hypoglycemia 11/18/18 10:15 12/18/18 10:14 Docusate Sodium (Colace) 100 mg EVERY 12 HOURS ORAL 11/18/18 21:00 12/18/18 20:59 11/21/18 22:03 Escitalopram Oxalate (Lexapro) 5 mg DAILY ORAL 11/19/18 09:00 12/19/18 08:59 11/22/18 08:46 Furosemide (Lasix) 40 mg DAILY ORAL 11/19/18 09:00 12/19/18 08:59 11/21/18 08:58 Levothyroxine Sodium (Synthroid) 25 mcg Q24H ORAL 11/19/18 06:30 12/19/18 06:29 11/22/18 06:00 Lisinopril (Prinivil) 40 mg DAILY ORAL 11/19/18 09:00 12/19/18 08:59 11/21/18 08:59 Magnesium Hydroxide (Mom) 30 ml HSPRN PRN ORAL Constipation 11/18/18 10:15 12/18/18 10:14 Morphine Sulfate (Morphine Sulfate) 2 mg Q4H PRN IVP Moderate Pain (Pain Scale 4-6) 11/20/18 19:00 11/27/18 18:59 Morphine Sulfate (Morphine Sulfate) 4 mg Q4H PRN IVP Severe Pain (Pain Scale 7-10) 11/20/18 17:30 11/27/18 17:29 11/22/18 10:30 Nitroglycerin (Ntg) 0.4 mg Q5M PRN SL Prn Chest Pain 11/18/18 10:15 12/18/18 10:14 11/20/18 17:57 Ondansetron HCl (Zofran) 4 mg Q6H PRN IVP Nausea & Vomiting 11/18/18 10:15 12/18/18 10:14 11/21/18 21:57 Pantoprazole (Protonix) 40 mg DAILY ORAL 11/19/18 09:00 12/19/18 08:59 11/22/18 08:45 Polyethylene Glycol (Miralax) 17 gm DAILYPRN PRN ORAL Constipation 11/18/18 10:15 12/18/18 10:14 Ranolazine (Ranexa ER 500mg) 1,000 mg Q12HR ORAL 11/21/18 09:00 12/21/18 08:59 11/22/18 08:44 Zolpidem Tartrate (Ambien) 5 mg DAILYPRN PRN ORAL Insomnia 11/18/18 10:15 11/25/18 10:14 Chepe Luong MD Nov 22, 2018 12:12
--- NOTE | 2018-11-22 13:00 | General Progress Note ---
Assessment/Plan Problem List: (1) MDD (major depressive disorder), recurrent episode, moderate ICD Codes: F33.1 - Major depressive disorder, recurrent, moderate SNOMED: 92926438, 818431480 (2) Anxiety disorder ICD Codes: F41.9 - Anxiety disorder, unspecified SNOMED: 685194365 Assessment/Plan Lexapro 10mg po qam provided ro/st Subjective Constitutional: Reports: malaise, weakness Neurologic/Psychiatric: Reports: anxiety, depressed, emotional problems Allergies: Coded Allergies: No Known Allergies (Verified , 09/12/10) Objective Last 24 Hour Vital Signs Date Time Temp Pulse Resp B/P (MAP) Pulse Ox O2 Delivery O2 Flow Rate FiO2 11/22/18 11:00 97.6 11/22/18 10:20 97.6 62 17 116/56 (76) 99 64 11/22/18 08:52 84/44 11/22/18 08:00 97.6 64 17 89/44 (59) 99 64 11/22/18 04:00 98.1 61 17 89/41 (57) 99 61 11/22/18 04:00 60 11/22/18 00:00 97.6 69 18 90/44 (59) 98 69 11/22/18 00:00 67 11/21/18 22:04 82 154/73 11/21/18 21:00 Nasal Cannula 2.0 11/21/18 20:00 98.0 82 17 154/73 (100) 96 82 11/21/18 20:00 63 11/21/18 16:00 63 11/21/18 16:00 97.2 63 21 95/47 (63) 100 63 Intake and Output 11/21/18 11/22/18 19:00 07:00 Output Total 300 ml Balance -300 ml Output Urine Total 300 ml # Voids 3 Laboratory Tests 11/22/18 05:26: White Blood Count 3.7L, Red Blood Count 3.85L, Hemoglobin 9.2L, Hematocrit 29.6L , Mean Corpuscular Volume 77L, Mean Corpuscular Hemoglobin 23.8L, Mean Corpuscular Hemoglobin Concent 31.0L, Red Cell Distribution Width 26.3H, Platelet Count 75L, Mean Platelet Volume 6.6, Neutrophils (%) (Auto) , Lymphocytes (%) (Auto) , Monocytes (%) (Auto) , Eosinophils (%) (Auto) , Basophils (%) (Auto) , Differential Total Cells Counted 100, Neutrophils % ( Manual) 33L, Lymphocytes % (Manual) 50H, Monocytes % (Manual) 15H, Eosinophils % (Manual) 2, Basophils % (Manual) 0, Band Neutrophils 0, Platelet Estimate DecreasedL, Platelet Morphology Normal, Hypochromasia 2+, Anisocytosis 3+, Microcytosis 1+, Target Cells Occasional, Agatha Cells 1+, Acanthocytes 1+, Schistocytes Occasional, Sodium Level 137, Potassium Level 5.1, Chloride Level 101, Carbon Dioxide Level 26, Anion Gap 10, Blood Urea Nitrogen 40H, Creatinine 1.4H, Estimat Glomerular Filtration Rate , Glucose Level 85, Calcium Level 8.4L Height (Feet): 5 Height (Inches): 6.00 Weight (Pounds): 135 General Appearance: WD/WN, alert, moderate distress Neurologic: oriented x 3, responsive, depressed affect Patti Gaines MD Nov 22, 2018 13:00
--- NOTE | 2018-11-22 13:45 | GI Initial Consult Note ---
History of Present Illness General Date patient seen: Nov 22, 2018 Time patient seen: 13:42 Reason for Hospitalization: Chest Pain Referring physician: JENNIE BRISCOE Reason for Consultation: Anemia, abdominal pain Present Illness HPI Is a 78-year-old male with a cardiac history with previous CABG and pacemaker. He presents with chief complaint of chest pain. He is a very vague historian. He said he get chest pain on and off all the time. He said recent admission was to [facility] 3 months ago. He presents with chief complaint of chest pain. Onset tonight. Per half-way, the going to give him nitroglycerin but he refused. He insists on calling 911. Superintendent Sanitation gave him nitroglycerin aspirin he said he felt better. Pain is substernal. No radiation. No nausea no vomiting. Pain is sharp. Pain is 7 out of 10. No exertional component. No diaphoresis. No shortness of breath. GI consulted for anemia, abdominal pain. Initial HPI as noted above. Patient seen, awake alert and oriented x4 with no apparent distress, no signs or symptoms of nausea or vomiting. Patient states that he has chest pain, upset stomach with reflux and emesis that is yellow in nature. He denies any hematemesis or coffee-ground. The patient had a recent history of colonoscopy approximately 1 month ago, however is unsure of the results. Patient denies any history of endoscopic. Patient presents today with severe anemia with a hemoglobin of 6.2 which required a blood transfusion. Patient hemoglobin now at 9.2. Patient pending stress test. Home Meds Active Scripts Ranolazine* (RANEXA*) 500 Mg Tab.er.12h, 1000 MG ORAL Q12HR, #1 TAB Prov:Mackenzie Gary FPGA DESIGN ENGINEER 05/21/16 Lisinopril (LISINOPRIL*) 20 Mg Tablet, 40 MG ORAL DAILY, #1 TAB Prov:Mackenzie Gary FPGA DESIGN ENGINEER 05/21/16 Carvedilol (Coreg) 3.125 Mg Tablet, 3.125 MG ORAL EVERY 12 HOURS, #1 TAB Prov:Mackenzie Gary FPGA DESIGN ENGINEER 05/21/16 Clopidogrel Bisulfate* (PLAVIX*) 75 Mg Tablet, 75 MG ORAL DAILY, #1 TAB Prov:Mackenzie Gary FPGA DESIGN ENGINEER 05/21/16 Atorvastatin Calcium* (ATORVASTATIN CALCIUM*) 40 Mg Tablet, 40 MG ORAL BEDTIME, #1 TAB Prov:Mackenzie Gary FPGA DESIGN ENGINEER 05/21/16 Aspirin* (ASPIRIN*) 81 Mg Tab.chew, 81 MG ORAL DAILY, #1 TAB Prov:Mackenzie Gary FPGA DESIGN ENGINEER 05/21/16 Reported Medications Lactulose (LACTULOSE) 10 Gm/15 Ml Solution, 10 GM PO 11/18/18 Furosemide* (LASIX*) 40 Mg Tablet, 40 MG ORAL DAILY, TAB 11/18/18 Levothyroxine Sodium (Synthroid) 50 Mcg Tablet, 25 MCG ORAL DAILY, TAB Take in the morning on an empty stomach, at least 30 minutes beforefood. 11/18/18 Pantoprazole* (PROTONIX*) 40 Mg Tablet.dr, 40 MG ORAL DAILY, TAB 11/18/18 [metropolol] No Conflict Check, 25 MG PO 11/18/18 Hydralazine HCl (Hydralazine HCl) 25 Mg Tablet, 25 MG PO, TAB 11/18/18 Escitalopram Oxalate (LEXAPRO) 5 Mg Tablet, 5 MG ORAL DAILY, TAB 11/18/18 Unable to Obtain Medications (UNABLE TO OBTAIN MEDS) 1 Ea Ea 05/15/16 Med list reviewed/reconciled: Yes Allergies: Coded Allergies: No Known Allergies (Verified , 09/12/10) Patient History History Provided By: Patient, Medical Record Social History: Denies: smoking, alcohol use, drug use, other Review of Systems All Other Systems: negative except mentioned in HPI Physical Exam Vital Signs Date Time Temp Pulse Resp B/P (MAP) Pulse Ox O2 Delivery O2 Flow Rate FiO2 11/18/18 09:00 98.8 77 20 133/74 100 Room Air 11/18/18 21:00 2.0 Sp02 EP Interpretation: reviewed, normal Labs Laboratory Tests Test 11/22/18 05:26 White Blood Count 3.7 K/UL (4.8-10.8) L Red Blood Count 3.85 M/UL (4.70-6.10) L Hemoglobin 9.2 G/DL (14.2-18.0) L Hematocrit 29.6 % (42.0-52.0) L Mean Corpuscular Volume 77 FL (80-99) L Mean Corpuscular Hemoglobin 23.8 PG (27.0-31.0) L Mean Corpuscular Hemoglobin Concent 31.0 G/DL (32.0-36.0) L Red Cell Distribution Width 26.3 % (11.6-14.8) H Platelet Count 75 K/UL (150-450) L Mean Platelet Volume 6.6 FL (6.5-10.1) Neutrophils (%) (Auto) % (45.0-75.0) Lymphocytes (%) (Auto) % (20.0-45.0) Monocytes (%) (Auto) % (1.0-10.0) Eosinophils (%) (Auto) % (0.0-3.0) Basophils (%) (Auto) % (0.0-2.0) Differential Total Cells Counted 100 Neutrophils % (Manual) 33 % (45-75) L Lymphocytes % (Manual) 50 % (20-45) H Monocytes % (Manual) 15 % (1-10) H Eosinophils % (Manual) 2 % (0-3) Basophils % (Manual) 0 % (0-2) Band Neutrophils 0 % (0-8) Platelet Estimate Decreased L Platelet Morphology Normal Hypochromasia 2+ Anisocytosis 3+ Microcytosis 1+ Target Cells Occasional [place] Cells 1+ Acanthocytes 1+ Schistocytes Occasional Sodium Level 137 MMOL/L (136-145) Potassium Level 5.1 MMOL/L (3.5-5.1) Chloride Level 101 MMOL/L (98-107) Carbon Dioxide Level 26 MMOL/L (21-32) Anion Gap 10 mmol/L (5-15) Blood Urea Nitrogen 40 mg/dL (7-18) H Creatinine 1.4 MG/DL (0.55-1.30) H Estimat Glomerular Filtration Rate mL/min (>60) Glucose Level 85 MG/DL (74-106) Calcium Level 8.4 MG/DL (8.5-10.1) L General Appearance: well appearing, no apparent distress, alert Head: normocephalic EENT: PERRL/EOMI, normal ENT inspection Neck: supple Respiratory: normal breath sounds, no respiratory distress Cardiovascular: normal rate Gastrointestinal: normal inspection, non tender, soft, normal bowel sounds, non -distended Rectal: deferred Genitourinary: deferred Musculoskeletal: normal inspection, back normal Neurologic: normal inspection, alert, oriented x3, responsive Psychiatric: normal inspection, judgement/insight normal, memory normal Skin: normal inspection, normal color, no rash, warm/dry, palpation normal, well hydrated Lymphatic: normal inspection, no adenopathy Current Medications Current Medications Medications (Trade) Dose Ordered Sig/Scout Route PRN Reason Start Time Stop Time Status Last Admin Dose Admin Acetaminophen (Tylenol) 650 mg Q4H PRN ORAL Mild Pain (Pain Scale 1-3) 11/18/18 10:15 12/18/18 10:14 Acetaminophen (Tylenol) 650 mg Q4H PRN ORAL fever 11/18/18 10:15 12/18/18 10:14 Acetaminophen (Tylenol) 650 mg Q4H PRN RECTAL Mild Pain (Pain Scale 1-3) 11/18/18 10:15 12/18/18 10:14 Aspirin (ASA) 81 mg DAILY ORAL 11/19/18 09:00 12/19/18 08:59 11/22/18 08:44 Atorvastatin Calcium (Lipitor) 40 mg BEDTIME ORAL 11/18/18 21:00 12/18/18 20:59 11/21/18 22:03 Bisacodyl (Dulcolax) 10 mg DAILYPRN PRN RECTAL Constipation 11/18/18 10:15 12/18/18 10:14 Carvedilol (Coreg) 12.5 mg EVERY 12 HOURS ORAL 11/21/18 21:00 12/18/18 20:59 11/21/18 22:04 Ceftriaxone Sodium 1 gm/ Dextrose 50 ml @ 100 mls/hr Q24H IVPB 11/18/18 17:00 11/25/18 16:59 11/21/18 16:41 Clopidogrel Bisulfate (Plavix) 75 mg DAILY ORAL 11/19/18 09:00 12/19/18 08:59 11/22/18 08:45 Dextrose (Dextrose 50%) 25 ml Q30M PRN IV Hypoglycemia 11/18/18 10:15 12/18/18 10:14 Dextrose (Dextrose 50%) 50 ml Q30M PRN IV Hypoglycemia 11/18/18 10:15 12/18/18 10:14 Docusate Sodium (Colace) 100 mg EVERY 12 HOURS ORAL 11/18/18 21:00 12/18/18 20:59 11/21/18 22:03 Escitalopram Oxalate (Lexapro) 5 mg DAILY ORAL 11/19/18 09:00 12/19/18 08:59 11/22/18 08:46 Levothyroxine Sodium (Synthroid) 25 mcg Q24H ORAL 11/19/18 06:30 12/19/18 06:29 11/22/18 06:00 Magnesium Hydroxide (Mom) 30 ml HSPRN PRN ORAL Constipation 11/18/18 10:15 12/18/18 10:14 Morphine Sulfate (Morphine Sulfate) 2 mg Q4H PRN IVP Moderate Pain (Pain Scale 4-6) 11/20/18 19:00 11/27/18 18:59 Morphine Sulfate (Morphine Sulfate) 4 mg Q4H PRN IVP Severe Pain (Pain Scale 7-10) 11/20/18 17:30 11/27/18 17:29 11/22/18 10:30 Nitroglycerin (Ntg) 0.4 mg Q5M PRN SL Prn Chest Pain 11/18/18 10:15 12/18/18 10:14 11/20/18 17:57 Ondansetron HCl (Zofran) 4 mg Q6H PRN IVP Nausea & Vomiting 11/18/18 10:15 12/18/18 10:14 11/21/18 21:57 Pantoprazole (Protonix) 40 mg DAILY ORAL 11/19/18 09:00 12/19/18 08:59 11/22/18 08:45 Polyethylene Glycol (Miralax) 17 gm DAILYPRN PRN ORAL Constipation 11/18/18 10:15 12/18/18 10:14 Ranolazine (Ranexa ER 500mg) 1,000 mg Q12HR ORAL 11/21/18 09:00 12/21/18 08:59 11/22/18 08:44 Zolpidem Tartrate (Ambien) 5 mg DAILYPRN PRN ORAL Insomnia 11/18/18 10:15 11/25/18 10:14 GI: Plan Problems: (1) Abdominal pain (2) GERD (gastroesophageal reflux disease) (3) Severe anemia (4) Hypothyroidism (5) History of CVA (cerebrovascular accident) Plan Recent history of colonoscopy approximately 1 month ago Patient is on Plavix, must be discontinued for approximately 72 hours prior to any GI procedure Pending stress test EGD to be scheduled once cleared by cardiac on cardiac diet anemia work up OB stool r/o GI bleed monitor H&H, prn transfusions bowel regime ppi fu labs Discussed with Dr. Mcguire. Thank you for this patient referral, we will follow. The patient was seen and examined at bedside and all new and available data was reviewed in the patients chart. I agree with the above findings, impression and plan. (Patient seen earlier today. Signature stamp does not reflect patient encounter time.). - MD Marina [facility] CenterTrina FPGA DESIGN ENGINEER Nov 22, 2018 13:45
[2018-11-22] MEDS: Morphine Sulfate 2mg/ml Inj(IV/IM USE ONLY) IVP PRN (14:42)
--- NOTE | 2018-11-22 15:07 | Internal Med Progress Note ---
Subjective Date of Service: Nov 22, 2018 Physician Name Nikhil West Attending Physician Abdias Hunter MD Current Medications Medications (Trade) Dose Ordered Sig/Scout Route PRN Reason Start Time Stop Time Status Last Admin Dose Admin Acetaminophen (Tylenol) 650 mg Q4H PRN ORAL Mild Pain (Pain Scale 1-3) 11/18/18 10:15 12/18/18 10:14 Acetaminophen (Tylenol) 650 mg Q4H PRN ORAL fever 11/18/18 10:15 12/18/18 10:14 Acetaminophen (Tylenol) 650 mg Q4H PRN RECTAL Mild Pain (Pain Scale 1-3) 11/18/18 10:15 12/18/18 10:14 Aspirin (ASA) 81 mg DAILY ORAL 11/19/18 09:00 12/19/18 08:59 11/22/18 08:44 Atorvastatin Calcium (Lipitor) 40 mg BEDTIME ORAL 11/18/18 21:00 12/18/18 20:59 11/21/18 22:03 Bisacodyl (Dulcolax) 10 mg DAILYPRN PRN RECTAL Constipation 11/18/18 10:15 12/18/18 10:14 Carvedilol (Coreg) 12.5 mg EVERY 12 HOURS ORAL 11/21/18 21:00 12/18/18 20:59 11/21/18 22:04 Ceftriaxone Sodium 1 gm/ Dextrose 50 ml @ 100 mls/hr Q24H IVPB 11/18/18 17:00 11/25/18 16:59 11/21/18 16:41 Clopidogrel Bisulfate (Plavix) 75 mg DAILY ORAL 11/19/18 09:00 12/19/18 08:59 11/22/18 08:45 Dextrose (Dextrose 50%) 25 ml Q30M PRN IV Hypoglycemia 11/18/18 10:15 12/18/18 10:14 Dextrose (Dextrose 50%) 50 ml Q30M PRN IV Hypoglycemia 11/18/18 10:15 12/18/18 10:14 Docusate Sodium (Colace) 100 mg EVERY 12 HOURS ORAL 11/18/18 21:00 12/18/18 20:59 11/21/18 22:03 Escitalopram Oxalate (Lexapro) 5 mg DAILY ORAL 11/19/18 09:00 12/19/18 08:59 11/22/18 08:46 Levothyroxine Sodium (Synthroid) 25 mcg Q24H ORAL 11/19/18 06:30 12/19/18 06:29 11/22/18 06:00 Magnesium Hydroxide (Mom) 30 ml HSPRN PRN ORAL Constipation 11/18/18 10:15 12/18/18 10:14 Morphine Sulfate (Morphine Sulfate) 2 mg Q4H PRN IVP Moderate Pain (Pain Scale 4-6) 11/20/18 19:00 11/27/18 18:59 11/22/18 14:42 Morphine Sulfate (Morphine Sulfate) 4 mg Q4H PRN IVP Severe Pain (Pain Scale 7-10) 11/20/18 17:30 11/27/18 17:29 11/22/18 10:30 Nitroglycerin (Ntg) 0.4 mg Q5M PRN SL Prn Chest Pain 11/18/18 10:15 12/18/18 10:14 11/20/18 17:57 Ondansetron HCl (Zofran) 4 mg Q6H PRN IVP Nausea & Vomiting 11/18/18 10:15 12/18/18 10:14 11/21/18 21:57 Pantoprazole (Protonix) 40 mg DAILY ORAL 11/19/18 09:00 12/19/18 08:59 11/22/18 08:45 Polyethylene Glycol (Miralax) 17 gm DAILYPRN PRN ORAL Constipation 11/18/18 10:15 12/18/18 10:14 Ranolazine (Ranexa ER 500mg) 1,000 mg Q12HR ORAL 11/21/18 09:00 12/21/18 08:59 11/22/18 08:44 Zolpidem Tartrate (Ambien) 5 mg DAILYPRN PRN ORAL Insomnia 11/18/18 10:15 11/25/18 10:14 Allergies: Coded Allergies: No Known Allergies (Verified , 09/12/10) ROS Limited/Unobtainable: Yes Subjective 78 YO M admitted with chest pain. Cover for Int Med-Dr Hunter. C/O chest pain- wants morphine q 4 hr. Await cardiac nuclear stress test Objective Last Vital Signs Date Time Temp Pulse Resp B/P (MAP) Pulse Ox O2 Delivery O2 Flow Rate FiO2 11/22/18 11:00 97.6 11/22/18 10:20 62 17 116/56 (76) 99 64 11/21/18 21:00 Nasal Cannula 2.0 Laboratory Tests Test 11/22/18 05:26 White Blood Count 3.7 K/UL (4.8-10.8) L Red Blood Count 3.85 M/UL (4.70-6.10) L Hemoglobin 9.2 G/DL (14.2-18.0) L Hematocrit 29.6 % (42.0-52.0) L Mean Corpuscular Volume 77 FL (80-99) L Mean Corpuscular Hemoglobin 23.8 PG (27.0-31.0) L Mean Corpuscular Hemoglobin Concent 31.0 G/DL (32.0-36.0) L Red Cell Distribution Width 26.3 % (11.6-14.8) H Platelet Count 75 K/UL (150-450) L Mean Platelet Volume 6.6 FL (6.5-10.1) Neutrophils (%) (Auto) % (45.0-75.0) Lymphocytes (%) (Auto) % (20.0-45.0) Monocytes (%) (Auto) % (1.0-10.0) Eosinophils (%) (Auto) % (0.0-3.0) Basophils (%) (Auto) % (0.0-2.0) Differential Total Cells Counted 100 Neutrophils % (Manual) 33 % (45-75) L Lymphocytes % (Manual) 50 % (20-45) H Monocytes % (Manual) 15 % (1-10) H Eosinophils % (Manual) 2 % (0-3) Basophils % (Manual) 0 % (0-2) Band Neutrophils 0 % (0-8) Platelet Estimate Decreased L Platelet Morphology Normal Hypochromasia 2+ Anisocytosis 3+ Microcytosis 1+ Target Cells Occasional [place]atha Cells 1+ Acanthocytes 1+ Schistocytes Occasional Sodium Level 137 MMOL/L (136-145) Potassium Level 5.1 MMOL/L (3.5-5.1) Chloride Level 101 MMOL/L (98-107) Carbon Dioxide Level 26 MMOL/L (21-32) Anion Gap 10 mmol/L (5-15) Blood Urea Nitrogen 40 mg/dL (7-18) H Creatinine 1.4 MG/DL (0.55-1.30) H Estimat Glomerular Filtration Rate mL/min (>60) Glucose Level 85 MG/DL (74-106) Calcium Level 8.4 MG/DL (8.5-10.1) L Intake and Output 11/21/18 11/22/18 19:00 07:00 Output Total 300 ml Balance -300 ml Output Urine Total 300 ml # Voids 3 Objective PHYSICAL EXAMINATION: GENERAL: The patient awake, responsive, no acute distress. HEAD AND NECK: Pupils are equal and reactive to light. Extraocular movements are intact. Neck was supple. No JVD LUNGS: Good air entry. No wheeze or rales. HEART: S1, S2. Distant heart sounds. No murmur or gallops. Pacemaker in left-sided chest wall. ABDOMEN: Soft, nondistended, nontender. EXTREMITIES: No cyanosis, clubbing, edema. Varicose veins, bilateral lower extremities. NEUROLOGIC: Cranial nerves II through XII grossly intact. Motor is 5/5 in all extremities. Gait is intact. RECTAL: Refused and deferred. GENITOURINARY: Refused and deferred. PSYCHIATRIC: Mood and affect is depressed. Assessment/Plan Assessment/Plan ASSESSMENT: 1. Chest pain, possible acute coronary syndrome. 2. Hypertension. 3. Dyslipidemia. 4. Congestive heart failure. 5. Coronary artery disease. 6. Sick sinus syndrome, status pacemaker. 7. UTI. 8. Severe anemia PLAN: Admit the patient to telemetry. Discussed case with Dr. Gee from Cardiology Electrophysiology. Await cardiac nuclear stress test Dr. Luong, Pulmonary Critical Care. Urine cult=E. Coli. Continue Rocephin. DVT prophylaxis, heparin subcutaneous. Code status, Full Code. The patient is expected to be in the hospital greater than 2 days Discharge paln: [facility] S/P transfusion 2 units PRBC on 11/19/18 Nikhil West MD Nov 22, 2018 15:07
--- NOTE | 2018-11-22 16:06 | Cardiac Electrophysiology PN ---
Assessment/Plan Assessment/Plan 1. Atypical chest pain and hx of CABG. Likely due to severe anemia. Ruled out [place]. Nuclear stress test pending Continue aspirin, Plavix, Lipitor and Coreg. 2. Cardiomyopathy. EF now 55%. On Coreg 12.5 mg bid. Lisinopril 40 mg daily and Lasix 40 mg daily held for Azotemia 3. Status post [facility] atrial biventricular defibrillator. Interrogated and showed Nl Fx 4. Severe anemia, S/P PRBC. FU GI DW RN Subjective Subjective No CP or SOB. In SR diuresing well Objective Last 24 Hour Vital Signs Date Time Temp Pulse Resp B/P (MAP) Pulse Ox O2 Delivery O2 Flow Rate FiO2 11/22/18 11:00 97.6 11/22/18 10:20 97.6 62 17 116/56 (76) 99 64 11/22/18 08:52 84/44 11/22/18 08:00 97.6 64 17 89/44 (59) 99 64 11/22/18 04:00 98.1 61 17 89/41 (57) 99 61 11/22/18 04:00 60 11/22/18 00:00 97.6 69 18 90/44 (59) 98 69 11/22/18 00:00 67 11/21/18 22:04 82 154/73 11/21/18 21:00 Nasal Cannula 2.0 11/21/18 20:00 98.0 82 17 154/73 (100) 96 82 11/21/18 20:00 63 Intake and Output 11/21/18 11/22/18 19:00 07:00 Output Total 300 ml Balance -300 ml Output Urine Total 300 ml # Voids 3 Laboratory Tests Test 11/22/18 05:26 White Blood Count 3.7 K/UL (4.8-10.8) L Red Blood Count 3.85 M/UL (4.70-6.10) L Hemoglobin 9.2 G/DL (14.2-18.0) L Hematocrit 29.6 % (42.0-52.0) L Mean Corpuscular Volume 77 FL (80-99) L Mean Corpuscular Hemoglobin 23.8 PG (27.0-31.0) L Mean Corpuscular Hemoglobin Concent 31.0 G/DL (32.0-36.0) L Red Cell Distribution Width 26.3 % (11.6-14.8) H Platelet Count 75 K/UL (150-450) L Mean Platelet Volume 6.6 FL (6.5-10.1) Neutrophils (%) (Auto) % (45.0-75.0) Lymphocytes (%) (Auto) % (20.0-45.0) Monocytes (%) (Auto) % (1.0-10.0) Eosinophils (%) (Auto) % (0.0-3.0) Basophils (%) (Auto) % (0.0-2.0) Differential Total Cells Counted 100 Neutrophils % (Manual) 33 % (45-75) L Lymphocytes % (Manual) 50 % (20-45) H Monocytes % (Manual) 15 % (1-10) H Eosinophils % (Manual) 2 % (0-3) Basophils % (Manual) 0 % (0-2) Band Neutrophils 0 % (0-8) Platelet Estimate Decreased L Platelet Morphology Normal Hypochromasia 2+ Anisocytosis 3+ Microcytosis 1+ Target Cells Occasional [place] Cells 1+ Acanthocytes 1+ Schistocytes Occasional Sodium Level 137 MMOL/L (136-145) Potassium Level 5.1 MMOL/L (3.5-5.1) Chloride Level 101 MMOL/L (98-107) Carbon Dioxide Level 26 MMOL/L (21-32) Anion Gap 10 mmol/L (5-15) Blood Urea Nitrogen 40 mg/dL (7-18) H Creatinine 1.4 MG/DL (0.55-1.30) H Estimat Glomerular Filtration Rate mL/min (>60) Glucose Level 85 MG/DL (74-106) Calcium Level 8.4 MG/DL (8.5-10.1) L Objective HEAD AND NECK: No JVD. LUNGS: Coarse rhonchi. CARDIOVASCULAR: Regular S1 and S2 with no gallop or murmur. Sternotomy is intact. Defibrillator is in left subclavian. ABDOMEN: Soft. EXTREMITIES: 1+ pitting edema. Satinder Gee MD Nov 22, 2018 16:06
[2018-11-22] MEDS: cefTRIAXone 1 GM in D5W 50 ML IVPB SCH (16:58)
[2018-11-22] MEDS ORDERED: Lexiscan 0.4mg/5ml syringe IV PRN (17:30)
[2018-11-22] MEDS: Atorvastatin 20mg tab ORAL SCH (21:28)
[2018-11-23] VITALS: BP 101/50
[2018-11-23] MEDS: Morphine Sulfate 4mg/ml Inj (IV USE ONLY) IVP PRN ×4 (03:45→21:09)
[2018-11-23 04:00] VITALS: BP 103/50
[2018-11-23] MEDS: Levothyroxine 25mcg tab ORAL SCH (05:47)
[2018-11-23 08:00] VITALS: BP 113/54
[2018-11-23] MEDS: Carvedilol 12.5mg tab ORAL SCH ×2 (08:09→20:59)
[2018-11-23] MEDS: Aspirin Baby 81mg ORAL SCH (08:10)
[2018-11-23] MEDS: Ranolazine 500mg tab ORAL SCH ×2 (08:10→20:59)
[2018-11-23] MEDS: Docusate 100mg cap ORAL SCH ×2 (08:10→20:59)
[2018-11-23 09:15] LABS: HEMATOCRIT 25.6 % (42.0-52.0); HEMOGLOBIN 8.2 G/DL (14.2-18.0); MEAN CORPUSCULAR VOLUME 77 FL (80-99); PLATELET COUNT 30 K/UL (150-450); RED BLOOD COUNT 3.33 M/UL (4.70-6.10); RED CELL DISTRIBUTION WIDTH 26.6 % (11.6-14.8); WHITE BLOOD COUNT 3.3 K/UL (4.8-10.8)
[2018-11-23 09:45] LABS: ALANINE AMINOTRANSFERASE 19 U/L (12-78); ALBUMIN 3.1 G/DL (3.4-5.0); ALBUMIN/GLOBULIN RATIO 0.7 (1.0-2.7); ALKALINE PHOSPHATASE 53 U/L (46-116); ANION GAP 7 mmol/L (5-15); ASPARTATE AMINO TRANSFERASE 21 U/L (15-37); BILIRUBIN,TOTAL 0.9 MG/DL (0.2-1.0); BLOOD UREA NITROGEN 43 mg/dL (7-18); CALCIUM 8.3 MG/DL (8.5-10.1); CARBON DIOXIDE 28 MMOL/L (21-32); CHLORIDE 100 MMOL/L (98-107); CREATININE 1.6 MG/DL (0.55-1.30); POTASSIUM 4.4 MMOL/L (3.5-5.1); SODIUM 135 MMOL/L (136-145)
[2018-11-23 09:46] LABS: % IRON SATURATION 62 % (15-50); IRON 159 ug/dL (50-175); TOTAL IRON BINDING CAPACITY 258 ug/dL (250-450)
--- NOTE | 2018-11-23 10:36 | GI Progress Note ---
Assessment/Plan Problems: (1) History of CVA (cerebrovascular accident) ICD Codes: Z86.73 - Personal history of transient ischemic attack (TIA), and cerebral infarction without residual deficits SNOMED: 862003131 (2) Severe anemia ICD Codes: D64.9 - Anemia, unspecified SNOMED: 110056070 (3) Abdominal pain ICD Codes: R10.9 - Unspecified abdominal pain SNOMED: 29596630 (4) GERD (gastroesophageal reflux disease) ICD Codes: K21.9 - Gastro-esophageal reflux disease without esophagitis SNOMED: 775004738 Status: unchanged Status Narrative Discussed with Dr. Mcguire Assessment/Plan Cardiology recommendation reviewed, patient pending stress test Recent history of colonoscopy approximately 1 month ago Patient is on Plavix, must be discontinued for approximately 72 hours prior to any GI procedure anemia work up reviewed EGD to be scheduled once cleared by cardiology on cardiac diet OB stool r/o GI bleed monitor H&H, prn transfusions bowel regime ppi fu labs The patient was seen and examined at bedside and all new and available data was reviewed in the patients chart. I agree with the above findings, impression and plan. (Patient seen earlier today. Signature stamp does not reflect patient encounter time.). - Richie Mcguire MD Subjective Subjective Abdominal versus chest pain Objective Last 24 Hour Vital Signs Date Time Temp Pulse Resp B/P (MAP) Pulse Ox O2 Delivery O2 Flow Rate FiO2 11/23/18 08:09 64 113/54 11/23/18 04:00 97.0 60 20 103/50 (67) 99 60 11/23/18 04:00 61 11/23/18 00:00 66 11/23/18 00:00 97.0 61 20 101/50 (67) 99 61 11/22/18 23:46 Nasal Cannula 2.0 28 11/22/18 23:45 100 Room Air 2.0 28 11/22/18 21:00 Nasal Cannula 2.0 11/22/18 20:23 63 109/69 11/22/18 20:00 65 11/22/18 20:00 97.9 63 20 109/69 (82) 97 63 11/22/18 16:22 64 11/22/18 16:00 97.6 62 21 118/58 (78) 99 62 11/22/18 15:12 97.6 11/22/18 12:00 97.7 60 20 93/54 (67) 99 64 11/22/18 11:47 60 11/22/18 11:00 97.6 Intake and Output 11/22/18 11/23/18 19:00 07:00 Intake Total 300 ml Output Total 500 ml 600 ml Balance -200 ml -600 ml Intake Oral 300 ml Output Urine Total 500 ml 600 ml # Voids 3 3 Laboratory Tests Test 11/23/18 08:08 White Blood Count 3.3 K/UL (4.8-10.8) L Red Blood Count 3.33 M/UL (4.70-6.10) L Hemoglobin 8.2 G/DL (14.2-18.0) L Hematocrit 25.6 % (42.0-52.0) L Mean Corpuscular Volume 77 FL (80-99) L Mean Corpuscular Hemoglobin 24.5 PG (27.0-31.0) L Mean Corpuscular Hemoglobin Concent 31.9 G/DL (32.0-36.0) L Red Cell Distribution Width 26.6 % (11.6-14.8) H Platelet Count 30 K/UL (150-450) #L Mean Platelet Volume 6.4 FL (6.5-10.1) L Neutrophils (%) (Auto) % (45.0-75.0) Lymphocytes (%) (Auto) % (20.0-45.0) Monocytes (%) (Auto) % (1.0-10.0) Eosinophils (%) (Auto) % (0.0-3.0) Basophils (%) (Auto) % (0.0-2.0) Neutrophils % (Manual) Pending Lymphocytes % (Manual) Pending Platelet Estimate Pending Platelet Morphology Pending Sodium Level 135 MMOL/L (136-145) L Potassium Level 4.4 MMOL/L (3.5-5.1) Chloride Level 100 MMOL/L (98-107) Carbon Dioxide Level 28 MMOL/L (21-32) Anion Gap 7 mmol/L (5-15) Blood Urea Nitrogen 43 mg/dL (7-18) H Creatinine 1.6 MG/DL (0.55-1.30) H Estimat Glomerular Filtration Rate mL/min (>60) Glucose Level 87 MG/DL (74-106) Calcium Level 8.3 MG/DL (8.5-10.1) L Iron Level 159 ug/dL (50-175) Total Iron Binding Capacity 258 ug/dL (250-450) Percent Iron Saturation 62 % (15-50) H Unsaturated Iron Binding 99 ug/dL (112-346) L Total Bilirubin 0.9 MG/DL (0.2-1.0) Aspartate Amino Transf (AST/SGOT) 21 U/L (15-37) Alanine Aminotransferase (ALT/SGPT) 19 U/L (12-78) Alkaline Phosphatase 53 U/L (46-116) Troponin I 0.008 ng/mL (0.000-0.056) Total Protein 7.6 G/DL (6.4-8.2) Albumin 3.1 G/DL (3.4-5.0) L Globulin 4.5 g/dL Albumin/Globulin Ratio 0.7 (1.0-2.7) L Height (Feet): 5 Height (Inches): 6.00 Weight (Pounds): 147 General Appearance: WD/WN, no apparent distress, alert Cardiovascular: normal rate Respiratory/Chest: normal breath sounds, no respiratory distress Abdominal Exam: normal bowel sounds, non tender, soft Extremities: normal range of motion, non-tender Jason Gray NP Nov 23, 2018 10:36
[2018-11-23] MEDS ORDERED: LORazepam 1mg tab ORAL PRN (11:45)
[2018-11-23 12:00] VITALS: BP 108/46
--- NOTE | 2018-11-23 12:34 | Pulmonology Progress Note ---
Assessment/Plan Problems: (1) ACS (acute coronary syndrome) (2) Cardiomyopathy (3) HTN (hypertension) (4) Pacemaker (5) Hypothyroidism (6) CAD (coronary artery disease) Assessment/Plan BP better today troponin negative check echo: Left ventricular ejection fraction estimated to be 55-60%. f/u cardiology evaluation titrate cardiac meds check electrolytes bun/creatinine rising, hold RADHIKA inhibitors and lasix Renal evaluation requested. Renal studies ordered Subjective ROS Limited/Unobtainable: No Constitutional: Reports: no symptoms HEENT: Repors: no symptoms Allergies: Coded Allergies: No Known Allergies (Verified , 09/12/10) Objective Last 24 Hour Vital Signs Date Time Temp Pulse Resp B/P (MAP) Pulse Ox O2 Delivery O2 Flow Rate FiO2 11/23/18 08:09 64 113/54 11/23/18 04:00 97.0 60 20 103/50 (67) 99 60 11/23/18 04:00 61 11/23/18 00:00 66 11/23/18 00:00 97.0 61 20 101/50 (67) 99 61 11/22/18 23:46 Nasal Cannula 2.0 28 11/22/18 23:45 100 Room Air 2.0 28 11/22/18 21:00 Nasal Cannula 2.0 11/22/18 20:23 63 109/69 11/22/18 20:00 65 11/22/18 20:00 97.9 63 20 109/69 (82) 97 63 11/22/18 16:22 64 11/22/18 16:00 97.6 62 21 118/58 (78) 99 62 11/22/18 15:12 97.6 Intake and Output 11/22/18 11/23/18 19:00 07:00 Intake Total 300 ml Output Total 500 ml 600 ml Balance -200 ml -600 ml Intake Oral 300 ml Output Urine Total 500 ml 600 ml # Voids 3 3 Objective General Appearance: cachetic Lines, tubes and drains: peripheral HEENT: normocephalic, atraumatic Neck: non-tender, normal alignment Respiratory/Chest: chest wall non-tender, lungs clear Breasts: no masses Cardiovascular/Chest: normal peripheral pulses, normal rate Abdomen: normal bowel sounds, non tender Genitourinary/Rectal: normal genital exam Extremities: normal range of motion Skin Exam: normal pigmentation 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 Laboratory Tests 11/23/18 08:08: White Blood Count 3.3L, Red Blood Count 3.33L, Hemoglobin 8.2L, Hematocrit 25.6L , Mean Corpuscular Volume 77L, Mean Corpuscular Hemoglobin 24.5L, Mean Corpuscular Hemoglobin Concent 31.9L, Red Cell Distribution Width 26.6H, Platelet Count 30#L, Mean Platelet Volume 6.4L, Neutrophils (%) (Auto) , Lymphocytes (%) (Auto) , Monocytes (%) (Auto) , Eosinophils (%) (Auto) , Basophils (%) (Auto) , Differential Total Cells Counted 100, Neutrophils % ( Manual) 32L, Lymphocytes % (Manual) 51H, Monocytes % (Manual) 7, Eosinophils % ( Manual) 9H, Basophils % (Manual) 0, Band Neutrophils 1, Platelet Estimate DecreasedL, Platelet Morphology Normal, Hypochromasia 2+, Anisocytosis 3+, Microcytosis 2+, Target Cells 1+, [place] Cells 1+, Sodium Level 135L, Potassium Level 4.4, Chloride Level 100, Carbon Dioxide Level 28, Anion Gap 7, Blood Urea Nitrogen 43H, Creatinine 1.6H, Estimat Glomerular Filtration Rate , Glucose Level 87, Calcium Level 8.3L, Iron Level 159, Total Iron Binding Capacity 258, Percent Iron Saturation 62H, Unsaturated Iron Binding 99L, Total Bilirubin 0.9, Aspartate Amino Transf (AST/SGOT) 21, Alanine Aminotransferase (ALT/SGPT) 19, Alkaline Phosphatase 53, Troponin I 0.008, Total Protein 7.6, Albumin 3.1L, Globulin 4.5, Albumin/Globulin Ratio 0.7L Current Medications Medications (Trade) Dose Ordered Sig/Scout Route PRN Reason Start Time Stop Time Status Last Admin Dose Admin Acetaminophen (Tylenol) 650 mg Q4H PRN ORAL Mild Pain (Pain Scale 1-3) 11/18/18 10:15 12/18/18 10:14 Acetaminophen (Tylenol) 650 mg Q4H PRN ORAL fever 11/18/18 10:15 12/18/18 10:14 Acetaminophen (Tylenol) 650 mg Q4H PRN RECTAL Mild Pain (Pain Scale 1-3) 11/18/18 10:15 12/18/18 10:14 Aspirin (ASA) 81 mg DAILY ORAL 11/19/18 09:00 12/19/18 08:59 11/23/18 08:10 Atorvastatin Calcium (Lipitor) 40 mg BEDTIME ORAL 11/18/18 21:00 12/18/18 20:59 11/22/18 21:28 Bisacodyl (Dulcolax) 10 mg DAILYPRN PRN RECTAL Constipation 11/18/18 10:15 12/18/18 10:14 Carvedilol (Coreg) 12.5 mg EVERY 12 HOURS ORAL 11/21/18 21:00 12/18/18 20:59 11/23/18 08:09 Ceftriaxone Sodium 1 gm/ Dextrose 50 ml @ 100 mls/hr Q24H IVPB 11/18/18 17:00 11/25/18 16:59 11/22/18 16:58 Clopidogrel Bisulfate (Plavix) 75 mg DAILY ORAL 11/19/18 09:00 12/19/18 08:59 11/23/18 08:10 Dextrose (Dextrose 50%) 25 ml Q30M PRN IV Hypoglycemia 11/18/18 10:15 12/18/18 10:14 Dextrose (Dextrose 50%) 50 ml Q30M PRN IV Hypoglycemia 11/18/18 10:15 12/18/18 10:14 Docusate Sodium (Colace) 100 mg EVERY 12 HOURS ORAL 11/18/18 21:00 12/18/18 20:59 11/23/18 08:10 Escitalopram Oxalate (Lexapro) 15 mg DAILY ORAL 11/24/18 09:00 12/24/18 08:59 Levothyroxine Sodium (Synthroid) 25 mcg Q24H ORAL 11/19/18 06:30 12/19/18 06:29 11/23/18 05:47 Lorazepam (Ativan) 2 mg Q6H PRN ORAL For Anxiety 11/23/18 11:45 11/30/18 11:44 Magnesium Hydroxide (Mom) 30 ml HSPRN PRN ORAL Constipation 11/18/18 10:15 12/18/18 10:14 Morphine Sulfate (Morphine Sulfate) 2 mg Q4H PRN IVP Moderate Pain (Pain Scale 4-6) 11/20/18 19:00 11/27/18 18:59 11/22/18 14:42 Morphine Sulfate (Morphine Sulfate) 4 mg Q4H PRN IVP Severe Pain (Pain Scale 7-10) 11/20/18 17:30 11/27/18 17:29 11/23/18 07:51 Nitroglycerin (Ntg) 0.4 mg Q5M PRN SL Prn Chest Pain 11/18/18 10:15 12/18/18 10:14 11/20/18 17:57 Ondansetron HCl (Zofran) 4 mg Q6H PRN IVP Nausea & Vomiting 11/18/18 10:15 12/18/18 10:14 11/21/18 21:57 Pantoprazole (Protonix) 40 mg DAILY ORAL 11/19/18 09:00 12/19/18 08:59 11/23/18 08:10 Polyethylene Glycol (Miralax) 17 gm DAILYPRN PRN ORAL Constipation 11/18/18 10:15 12/18/18 10:14 Ranolazine (Ranexa ER 500mg) 1,000 mg Q12HR ORAL 11/21/18 09:00 12/21/18 08:59 11/23/18 08:10 Regadenoson (Lexiscan) 0.4 mg ONCE PRN IV stress test 11/22/18 17:30 11/24/18 17:29 Zolpidem Tartrate (Ambien) 5 mg DAILYPRN PRN ORAL Insomnia 11/18/18 10:15 11/25/18 10:14 Chepe Luong MD Nov 23, 2018 12:34
--- NOTE | 2018-11-23 12:41 | General Progress Note ---
Assessment/Plan Problem List: (1) Anxiety disorder ICD Codes: F41.9 - Anxiety disorder, unspecified SNOMED: 211427019 (2) MDD (major depressive disorder), recurrent episode, moderate ICD Codes: F33.1 - Major depressive disorder, recurrent, moderate SNOMED: 49805295, [id number] Status: stable Assessment/Plan Lexapro 15mg po qam provided ro/st Ativan prn Subjective Neurologic/Psychiatric: Reports: anxiety, depressed, emotional problems Allergies: Coded Allergies: No Known Allergies (Verified , 09/12/10) Objective Last 24 Hour Vital Signs Date Time Temp Pulse Resp B/P (MAP) Pulse Ox O2 Delivery O2 Flow Rate FiO2 11/23/18 08:09 64 113/54 11/23/18 04:00 97.0 60 20 103/50 (67) 99 60 11/23/18 04:00 61 11/23/18 00:00 66 11/23/18 00:00 97.0 61 20 101/50 (67) 99 61 11/22/18 23:46 Nasal Cannula 2.0 28 11/22/18 23:45 100 Room Air 2.0 28 11/22/18 21:00 Nasal Cannula 2.0 11/22/18 20:23 63 109/69 11/22/18 20:00 65 11/22/18 20:00 97.9 63 20 109/69 (82) 97 63 11/22/18 16:22 64 11/22/18 16:00 97.6 62 21 118/58 (78) 99 62 11/22/18 15:12 97.6 Intake and Output 11/22/18 11/23/18 19:00 07:00 Intake Total 300 ml Output Total 500 ml 600 ml Balance -200 ml -600 ml Intake Oral 300 ml Output Urine Total 500 ml 600 ml # Voids 3 3 Laboratory Tests 11/23/18 08:08: White Blood Count 3.3L, Red Blood Count 3.33L, Hemoglobin 8.2L, Hematocrit 25.6L , Mean Corpuscular Volume 77L, Mean Corpuscular Hemoglobin 24.5L, Mean Corpuscular Hemoglobin Concent 31.9L, Red Cell Distribution Width 26.6H, Platelet Count 30#L, Mean Platelet Volume 6.4L, Neutrophils (%) (Auto) , Lymphocytes (%) (Auto) , Monocytes (%) (Auto) , Eosinophils (%) (Auto) , Basophils (%) (Auto) , Differential Total Cells Counted 100, Neutrophils % ( Manual) 32L, Lymphocytes % (Manual) 51H, Monocytes % (Manual) 7, Eosinophils % ( Manual) 9H, Basophils % (Manual) 0, Band Neutrophils 1, Platelet Estimate DecreasedL, Platelet Morphology Normal, Hypochromasia 2+, Anisocytosis 3+, Microcytosis 2+, Target Cells 1+, [place] Cells 1+, Sodium Level 135L, Potassium Level 4.4, Chloride Level 100, Carbon Dioxide Level 28, Anion Gap 7, Blood Urea Nitrogen 43H, Creatinine 1.6H, Estimat Glomerular Filtration Rate , Glucose Level 87, Uric Acid [Pending], Calcium Level 8.3L, Iron Level 159, Total Iron Binding Capacity 258, Percent Iron Saturation 62H, Unsaturated Iron Binding 99L , Total Bilirubin 0.9, Aspartate Amino Transf (AST/SGOT) 21, Alanine Aminotransferase (ALT/SGPT) 19, Alkaline Phosphatase 53, Total Creatine Kinase [ Pending], Troponin I 0.008, Total Protein 7.6, Albumin 3.1L, Globulin 4.5, Albumin/Globulin Ratio 0.7L Height (Feet): 5 Height (Inches): 6.00 Weight (Pounds): 147 General Appearance: no apparent distress, alert, agitated Neurologic: oriented x 3, responsive, depressed affect Patti Gaines MD Nov 23, 2018 12:41
[2018-11-23 12:49] LABS: CREATINE KINASE 21 U/L (26-308)
--- NOTE | 2018-11-23 15:17 | Cardiac Electrophysiology PN ---
Assessment/Plan Assessment/Plan 1. Atypical chest pain and hx of CABG. Likely due to severe anemia. Ruled out [place]. Nuclear stress test pending Continue aspirin, Plavix, Lipitor and Coreg. 2. Cardiomyopathy. EF now 55%. On Coreg 12.5 mg bid. Lisinopril and Lasix held for Azotemia 3. Status post [facility] atrial biventricular defibrillator. Interrogated and showed Nl Fx 4. Severe anemia, S/P PRBC. FU GI. Hb 8.7 today DW RN Subjective Subjective No CP or SOB. In SR diuresing well. stress test cancelled in view of Hb around 8 Objective Last 24 Hour Vital Signs Date Time Temp Pulse Resp B/P (MAP) Pulse Ox O2 Delivery O2 Flow Rate FiO2 11/23/18 09:00 Nasal Cannula 2.0 11/23/18 08:09 64 113/54 11/23/18 08:00 97.2 64 18 113/54 (73) 100 20 11/23/18 04:00 97.0 60 20 103/50 (67) 99 60 11/23/18 04:00 61 11/23/18 00:00 66 11/23/18 00:00 97.0 61 20 101/50 (67) 99 61 11/22/18 23:46 Nasal Cannula 2.0 28 11/22/18 23:45 100 Room Air 2.0 28 11/22/18 21:00 Nasal Cannula 2.0 11/22/18 20:23 63 109/69 11/22/18 20:00 65 11/22/18 20:00 97.9 63 20 109/69 (82) 97 63 11/22/18 16:22 64 11/22/18 16:00 97.6 62 21 118/58 (78) 99 62 Intake and Output 11/22/18 11/23/18 19:00 07:00 Intake Total 300 ml Output Total 500 ml 600 ml Balance -200 ml -600 ml Intake Oral 300 ml Output Urine Total 500 ml 600 ml # Voids 3 3 Laboratory Tests Test 11/23/18 08:08 White Blood Count 3.3 K/UL (4.8-10.8) L Red Blood Count 3.33 M/UL (4.70-6.10) L Hemoglobin 8.2 G/DL (14.2-18.0) L Hematocrit 25.6 % (42.0-52.0) L Mean Corpuscular Volume 77 FL (80-99) L Mean Corpuscular Hemoglobin 24.5 PG (27.0-31.0) L Mean Corpuscular Hemoglobin Concent 31.9 G/DL (32.0-36.0) L Red Cell Distribution Width 26.6 % (11.6-14.8) H Platelet Count 30 K/UL (150-450) #L Mean Platelet Volume 6.4 FL (6.5-10.1) L Neutrophils (%) (Auto) % (45.0-75.0) Lymphocytes (%) (Auto) % (20.0-45.0) Monocytes (%) (Auto) % (1.0-10.0) Eosinophils (%) (Auto) % (0.0-3.0) Basophils (%) (Auto) % (0.0-2.0) Differential Total Cells Counted 100 Neutrophils % (Manual) 32 % (45-75) L Lymphocytes % (Manual) 51 % (20-45) H Monocytes % (Manual) 7 % (1-10) Eosinophils % (Manual) 9 % (0-3) H Basophils % (Manual) 0 % (0-2) Band Neutrophils 1 % (0-8) Platelet Estimate Decreased L Platelet Morphology Normal Hypochromasia 2+ Anisocytosis 3+ Microcytosis 2+ Target Cells 1+ [place] Cells 1+ Sodium Level 135 MMOL/L (136-145) L Potassium Level 4.4 MMOL/L (3.5-5.1) Chloride Level 100 MMOL/L (98-107) Carbon Dioxide Level 28 MMOL/L (21-32) Anion Gap 7 mmol/L (5-15) Blood Urea Nitrogen 43 mg/dL (7-18) H Creatinine 1.6 MG/DL (0.55-1.30) H Estimat Glomerular Filtration Rate mL/min (>60) Glucose Level 87 MG/DL (74-106) Uric Acid 10.8 MG/DL (2.6-7.2) H Calcium Level 8.3 MG/DL (8.5-10.1) L Iron Level 159 ug/dL (50-175) Total Iron Binding Capacity 258 ug/dL (250-450) Percent Iron Saturation 62 % (15-50) H Unsaturated Iron Binding 99 ug/dL (112-346) L Total Bilirubin 0.9 MG/DL (0.2-1.0) Aspartate Amino Transf (AST/SGOT) 21 U/L (15-37) Alanine Aminotransferase (ALT/SGPT) 19 U/L (12-78) Alkaline Phosphatase 53 U/L (46-116) Total Creatine Kinase 21 U/L (26-308) L Troponin I 0.008 ng/mL (0.000-0.056) Total Protein 7.6 G/DL (6.4-8.2) Albumin 3.1 G/DL (3.4-5.0) L Globulin 4.5 g/dL Albumin/Globulin Ratio 0.7 (1.0-2.7) L Objective HEAD AND NECK: No JVD. LUNGS: Coarse rhonchi. CARDIOVASCULAR: Regular S1 and S2 with no gallop or murmur. Sternotomy is intact. Defibrillator is in left subclavian. ABDOMEN: Soft. EXTREMITIES: 1+ pitting edema. Satinder Gee MD Nov 23, 2018 15:17
[2018-11-23 16:00] VITALS: BP 113/60
[2018-11-23] MEDS: cefTRIAXone 1 GM in D5W 50 ML IVPB SCH (17:53)
--- NOTE | 2018-11-23 19:24 | Internal Med Progress Note ---
Subjective Date of Service: Nov 23, 2018 Physician Name Nikhil West Attending Physician Abdias Hunter MD Current Medications Medications (Trade) Dose Ordered Sig/Scout Route PRN Reason Start Time Stop Time Status Last Admin Dose Admin Acetaminophen (Tylenol) 650 mg Q4H PRN ORAL Mild Pain (Pain Scale 1-3) 11/18/18 10:15 12/18/18 10:14 Acetaminophen (Tylenol) 650 mg Q4H PRN ORAL fever 11/18/18 10:15 12/18/18 10:14 Acetaminophen (Tylenol) 650 mg Q4H PRN RECTAL Mild Pain (Pain Scale 1-3) 11/18/18 10:15 12/18/18 10:14 Aspirin (ASA) 81 mg DAILY ORAL 11/19/18 09:00 12/19/18 08:59 11/23/18 08:10 Atorvastatin Calcium (Lipitor) 40 mg BEDTIME ORAL 11/18/18 21:00 12/18/18 20:59 11/22/18 21:28 Bisacodyl (Dulcolax) 10 mg DAILYPRN PRN RECTAL Constipation 11/18/18 10:15 12/18/18 10:14 Carvedilol (Coreg) 12.5 mg EVERY 12 HOURS ORAL 11/21/18 21:00 12/18/18 20:59 11/23/18 08:09 Ceftriaxone Sodium 1 gm/ Dextrose 50 ml @ 100 mls/hr Q24H IVPB 11/18/18 17:00 11/25/18 16:59 11/23/18 17:53 Clopidogrel Bisulfate (Plavix) 75 mg DAILY ORAL 11/19/18 09:00 12/19/18 08:59 11/23/18 08:10 Dextrose (Dextrose 50%) 25 ml Q30M PRN IV Hypoglycemia 11/18/18 10:15 12/18/18 10:14 Dextrose (Dextrose 50%) 50 ml Q30M PRN IV Hypoglycemia 11/18/18 10:15 12/18/18 10:14 Docusate Sodium (Colace) 100 mg EVERY 12 HOURS ORAL 11/18/18 21:00 12/18/18 20:59 11/23/18 08:10 Escitalopram Oxalate (Lexapro) 15 mg DAILY ORAL 11/24/18 09:00 12/24/18 08:59 Levothyroxine Sodium (Synthroid) 25 mcg Q24H ORAL 11/19/18 06:30 12/19/18 06:29 11/23/18 05:47 Lorazepam (Ativan) 2 mg Q6H PRN ORAL For Anxiety 11/23/18 11:45 11/30/18 11:44 Magnesium Hydroxide (Mom) 30 ml HSPRN PRN ORAL Constipation 11/18/18 10:15 12/18/18 10:14 Morphine Sulfate (Morphine Sulfate) 2 mg Q4H PRN IVP Moderate Pain (Pain Scale 4-6) 11/20/18 19:00 11/27/18 18:59 11/22/18 14:42 Morphine Sulfate (Morphine Sulfate) 4 mg Q4H PRN IVP Severe Pain (Pain Scale 7-10) 11/20/18 17:30 11/27/18 17:29 11/23/18 14:41 Nitroglycerin (Ntg) 0.4 mg Q5M PRN SL Prn Chest Pain 11/18/18 10:15 12/18/18 10:14 11/20/18 17:57 Ondansetron HCl (Zofran) 4 mg Q6H PRN IVP Nausea & Vomiting 11/18/18 10:15 12/18/18 10:14 11/21/18 21:57 Pantoprazole (Protonix) 40 mg DAILY ORAL 11/19/18 09:00 12/19/18 08:59 11/23/18 08:10 Polyethylene Glycol (Miralax) 17 gm DAILYPRN PRN ORAL Constipation 11/18/18 10:15 12/18/18 10:14 Ranolazine (Ranexa ER 500mg) 1,000 mg Q12HR ORAL 11/21/18 09:00 12/21/18 08:59 11/23/18 08:10 Regadenoson (Lexiscan) 0.4 mg ONCE PRN IV stress test 11/22/18 17:30 11/24/18 17:29 Zolpidem Tartrate (Ambien) 5 mg DAILYPRN PRN ORAL Insomnia 11/18/18 10:15 11/25/18 10:14 Allergies: Coded Allergies: No Known Allergies (Verified , 09/12/10) ROS Limited/Unobtainable: No Constitutional: Reports: no symptoms HEENT: Reports: no symptoms Cardiovascular: Reports: chest pain Respiratory: Reports: no symptoms Gastrointestinal/Abdominal: Reports: no symptoms Genitourinary: Reports: no symptoms Neurologic/Psychiatric: Reports: no symptoms Subjective 78 YO M admitted with chest pain. Cover for Int Med-Dr Hunter. C/O chest pain- wants morphine q 4 hr. Await cardiac nuclear stress test Objective Last Vital Signs Date Time Temp Pulse Resp B/P (MAP) Pulse Ox O2 Delivery O2 Flow Rate FiO2 11/23/18 16:00 97.9 62 20 113/60 (77) 95 78 11/23/18 09:00 Nasal Cannula 2.0 11/22/18 23:46 28 Laboratory Tests Test 11/23/18 08:08 White Blood Count 3.3 K/UL (4.8-10.8) L Red Blood Count 3.33 M/UL (4.70-6.10) L Hemoglobin 8.2 G/DL (14.2-18.0) L Hematocrit 25.6 % (42.0-52.0) L Mean Corpuscular Volume 77 FL (80-99) L Mean Corpuscular Hemoglobin 24.5 PG (27.0-31.0) L Mean Corpuscular Hemoglobin Concent 31.9 G/DL (32.0-36.0) L Red Cell Distribution Width 26.6 % (11.6-14.8) H Platelet Count 30 K/UL (150-450) #L Mean Platelet Volume 6.4 FL (6.5-10.1) L Neutrophils (%) (Auto) % (45.0-75.0) Lymphocytes (%) (Auto) % (20.0-45.0) Monocytes (%) (Auto) % (1.0-10.0) Eosinophils (%) (Auto) % (0.0-3.0) Basophils (%) (Auto) % (0.0-2.0) Differential Total Cells Counted 100 Neutrophils % (Manual) 32 % (45-75) L Lymphocytes % (Manual) 51 % (20-45) H Monocytes % (Manual) 7 % (1-10) Eosinophils % (Manual) 9 % (0-3) H Basophils % (Manual) 0 % (0-2) Band Neutrophils 1 % (0-8) Platelet Estimate Decreased L Platelet Morphology Normal Hypochromasia 2+ Anisocytosis 3+ Microcytosis 2+ Target Cells 1+ Langley Cells 1+ Sodium Level 135 MMOL/L (136-145) L Potassium Level 4.4 MMOL/L (3.5-5.1) Chloride Level 100 MMOL/L (98-107) Carbon Dioxide Level 28 MMOL/L (21-32) Anion Gap 7 mmol/L (5-15) Blood Urea Nitrogen 43 mg/dL (7-18) H Creatinine 1.6 MG/DL (0.55-1.30) H Estimat Glomerular Filtration Rate mL/min (>60) Glucose Level 87 MG/DL (74-106) Uric Acid 10.8 MG/DL (2.6-7.2) H Calcium Level 8.3 MG/DL (8.5-10.1) L Iron Level 159 ug/dL (50-175) Total Iron Binding Capacity 258 ug/dL (250-450) Percent Iron Saturation 62 % (15-50) H Unsaturated Iron Binding 99 ug/dL (112-346) L Total Bilirubin 0.9 MG/DL (0.2-1.0) Aspartate Amino Transf (AST/SGOT) 21 U/L (15-37) Alanine Aminotransferase (ALT/SGPT) 19 U/L (12-78) Alkaline Phosphatase 53 U/L (46-116) Total Creatine Kinase 21 U/L (26-308) L Troponin I 0.008 ng/mL (0.000-0.056) Total Protein 7.6 G/DL (6.4-8.2) Albumin 3.1 G/DL (3.4-5.0) L Globulin 4.5 g/dL Albumin/Globulin Ratio 0.7 (1.0-2.7) L Intake and Output 11/22/18 11/23/18 19:00 07:00 Intake Total 300 ml Output Total 500 ml 600 ml Balance -200 ml -600 ml Intake Oral 300 ml Output Urine Total 500 ml 600 ml # Voids 3 3 Objective PHYSICAL EXAMINATION: GENERAL: The patient awake, responsive, no acute distress. HEAD AND NECK: Pupils are equal and reactive to light. Extraocular movements are intact. Neck was supple. No JVD LUNGS: Good air entry. No wheeze or rales. HEART: S1, S2. Distant heart sounds. No murmur or gallops. Pacemaker in left-sided chest wall. ABDOMEN: Soft, nondistended, nontender. EXTREMITIES: No cyanosis, clubbing, edema. Varicose veins, bilateral lower extremities. NEUROLOGIC: Cranial nerves II through XII grossly intact. Motor is 5/5 in all extremities. Gait is intact. RECTAL: Refused and deferred. GENITOURINARY: Refused and deferred. PSYCHIATRIC: Mood and affect is depressed. Assessment/Plan Assessment/Plan ASSESSMENT: 1. Chest pain, possible acute coronary syndrome. 2. Hypertension. 3. Dyslipidemia. 4. Congestive heart failure. 5. Coronary artery disease. 6. Sick sinus syndrome, status pacemaker. 7. UTI. 8. Severe anemia PLAN: Admit the patient to telemetry. Discussed case with Dr. Gee from Cardiology Electrophysiology. Await cardiac nuclear stress test Dr. Luong, Pulmonary Critical Care. Urine cult=E. Coli. Continue Rocephin. DVT prophylaxis, heparin subcutaneous. Code status, Full Code. The patient is expected to be in the hospital greater than 2 days Discharge paln: [facility] S/P transfusion 2 units PRBC on 11/19/18 Nikhil West MD Nov 23, 2018 19:24
[2018-11-23 20:00] VITALS: BP 108/49
[2018-11-23] MEDS: Atorvastatin 20mg tab ORAL SCH (20:59)
[2018-11-24] VITALS: BP 112/52
[2018-11-24] MEDS: Morphine Sulfate 4mg/ml Inj (IV USE ONLY) IVP PRN (03:12)
[2018-11-24 04:00] VITALS: BP 138/64
[2018-11-24] MEDS: Levothyroxine 25mcg tab ORAL SCH (06:09)
[2018-11-24 08:00] VITALS: BP 151/79
[2018-11-24 08:22] LABS: HEMATOCRIT 25.4 % (42.0-52.0); HEMOGLOBIN 8.1 G/DL (14.2-18.0); MEAN CORPUSCULAR VOLUME 77 FL (80-99); PLATELET COUNT 23 K/UL (150-450); RED BLOOD COUNT 3.33 M/UL (4.70-6.10); RED CELL DISTRIBUTION WIDTH 25.8 % (11.6-14.8); WHITE BLOOD COUNT 2.6 K/UL (4.8-10.8)
[2018-11-24] MEDS: Docusate 100mg cap ORAL SCH ×2 (08:54→20:41)
[2018-11-24] MEDS: Carvedilol 12.5mg tab ORAL SCH ×2 (08:54→20:42)
[2018-11-24] MEDS: Ranolazine 500mg tab ORAL SCH ×2 (08:55→20:41)
[2018-11-24] MEDS: Aspirin Baby 81mg ORAL SCH (08:55)
[2018-11-24 09:14] LABS: PHOSPHORUS 2.9 MG/DL (2.5-4.9)
[2018-11-24 09:23] LABS: ALANINE AMINOTRANSFERASE 19 U/L (12-78); ALBUMIN 3.3 G/DL (3.4-5.0); ALBUMIN/GLOBULIN RATIO 0.7 (1.0-2.7); ALKALINE PHOSPHATASE 52 U/L (46-116); ANION GAP 8 mmol/L (5-15); ASPARTATE AMINO TRANSFERASE 23 U/L (15-37); BILIRUBIN,TOTAL 1.4 MG/DL (0.2-1.0); BLOOD UREA NITROGEN 33 mg/dL (7-18); CALCIUM 8.3 MG/DL (8.5-10.1); CARBON DIOXIDE 27 MMOL/L (21-32); CHLORIDE 99 MMOL/L (98-107); CREATININE 1.2 MG/DL (0.55-1.30); POTASSIUM 4.3 MMOL/L (3.5-5.1); SODIUM 134 MMOL/L (136-145)
[2018-11-24 09:26] LABS: BILIRUBIN,DIRECT 0.3 MG/DL (0.0-0.3)
--- NOTE | 2018-11-24 10:37 | GI Progress Note ---
Assessment/Plan Problems: (1) History of CVA (cerebrovascular accident) ICD Codes: Z86.73 - Personal history of transient ischemic attack (TIA), and cerebral infarction without residual deficits SNOMED: 357488171 (2) Severe anemia ICD Codes: D64.9 - Anemia, unspecified SNOMED: 968735251 (3) Abdominal pain ICD Codes: R10.9 - Unspecified abdominal pain SNOMED: 53881334 (4) GERD (gastroesophageal reflux disease) ICD Codes: K21.9 - Gastro-esophageal reflux disease without esophagitis SNOMED: 214338478 Status: unchanged Status Narrative Discussed with Dr. Mcguire Assessment/Plan Cardiology recommendation reviewed, patient pending stress test Recent history of colonoscopy approximately 1 month ago Patient is on Plavix, must be discontinued for approximately 72 hours prior to any GI procedure anemia work up reviewed EGD to be scheduled once cleared by cardiology, pending stress test on cardiac diet OB stool r/o GI bleed monitor H&H, prn transfusions bowel regime ppi fu labs The patient was seen and examined at bedside and all new and available data was reviewed in the patients chart. I agree with the above findings, impression and plan. (Patient seen earlier today. Signature stamp does not reflect patient encounter time.). - Richie Mcguire MD Subjective Subjective Abdominal versus chest pain Objective Last 24 Hour Vital Signs Date Time Temp Pulse Resp B/P (MAP) Pulse Ox O2 Delivery O2 Flow Rate FiO2 11/24/18 08:54 79 151/78 11/24/18 04:34 63 11/24/18 04:00 97.4 67 19 138/64 (88) 100 67 11/24/18 03:48 97.7 11/24/18 00:00 63 11/24/18 00:00 97.7 60 20 112/52 (72) 100 61 11/23/18 21:00 Nasal Cannula 2.0 11/23/18 20:59 61 108/49 11/23/18 20:00 97.0 61 20 108/49 (68) 99 61 11/23/18 20:00 62 11/23/18 16:00 97.9 62 20 113/60 (77) 95 78 11/23/18 16:00 63 11/23/18 12:00 65 11/23/18 12:00 98.1 62 20 108/46 (66) 100 20 Intake and Output 11/23/18 11/24/18 19:00 07:00 Intake Total 150 ml Output Total 400 ml 700 ml Balance -250 ml -700 ml Intake Oral 150 ml Output Urine Total 400 ml 700 ml # Voids 2 Laboratory Tests Test 11/24/18 05:28 White Blood Count 2.6 K/UL (4.8-10.8) L Red Blood Count 3.33 M/UL (4.70-6.10) L Hemoglobin 8.1 G/DL (14.2-18.0) L Hematocrit 25.4 % (42.0-52.0) L Mean Corpuscular Volume 77 FL (80-99) L Mean Corpuscular Hemoglobin 24.4 PG (27.0-31.0) L Mean Corpuscular Hemoglobin Concent 31.8 G/DL (32.0-36.0) L Red Cell Distribution Width 25.8 % (11.6-14.8) H Platelet Count 23 K/UL (150-450) L Mean Platelet Volume 6.1 FL (6.5-10.1) L Neutrophils (%) (Auto) % (45.0-75.0) Lymphocytes (%) (Auto) % (20.0-45.0) Monocytes (%) (Auto) % (1.0-10.0) Eosinophils (%) (Auto) % (0.0-3.0) Basophils (%) (Auto) % (0.0-2.0) Neutrophils % (Manual) Pending Lymphocytes % (Manual) Pending Platelet Estimate Pending Platelet Morphology Pending Sodium Level 134 MMOL/L (136-145) L Potassium Level 4.3 MMOL/L (3.5-5.1) Chloride Level 99 MMOL/L (98-107) Carbon Dioxide Level 27 MMOL/L (21-32) Anion Gap 8 mmol/L (5-15) Blood Urea Nitrogen 33 mg/dL (7-18) H Creatinine 1.2 MG/DL (0.55-1.30) Estimat Glomerular Filtration Rate mL/min (>60) Glucose Level 88 MG/DL (74-106) Calcium Level 8.3 MG/DL (8.5-10.1) L Phosphorus Level 2.9 MG/DL (2.5-4.9) Magnesium Level 2.2 MG/DL (1.8-2.4) Total Bilirubin 1.4 MG/DL (0.2-1.0) H Direct Bilirubin 0.3 MG/DL (0.0-0.3) Aspartate Amino Transf (AST/SGOT) 23 U/L (15-37) Alanine Aminotransferase (ALT/SGPT) 19 U/L (12-78) Alkaline Phosphatase 52 U/L (46-116) Total Protein 7.8 G/DL (6.4-8.2) Albumin 3.3 G/DL (3.4-5.0) L Globulin 4.5 g/dL Albumin/Globulin Ratio 0.7 (1.0-2.7) L Height (Feet): 5 Height (Inches): 6.00 Weight (Pounds): 147 General Appearance: WD/WN, no apparent distress, alert Cardiovascular: normal rate Respiratory/Chest: normal breath sounds, no respiratory distress Abdominal Exam: normal bowel sounds, non tender, soft Extremities: normal range of motion, non-tender Jason Gray NP Nov 24, 2018 10:37
[2018-11-24 12:00] VITALS: BP 135/88
--- NOTE | 2018-11-24 13:06 | Pulmonology Progress Note ---
Assessment/Plan Problems: (1) ACS (acute coronary syndrome) (2) Cardiomyopathy (3) HTN (hypertension) (4) Pacemaker (5) Hypothyroidism (6) CAD (coronary artery disease) Assessment/Plan stress test not done yet troponin negative check echo: Left ventricular ejection fraction estimated to be 55-60%. f/u cardiology evaluation titrate cardiac meds check electrolytes bun/creatinine rising, hold RADHIKA inhibitors and lasix PLT decreasing, dc all meds that can cause thrombocytopenia Renal evaluation requested. Renal studies ordered Subjective ROS Limited/Unobtainable: No Constitutional: Reports: no symptoms HEENT: Repors: no symptoms Respiratory: Reports: no symptoms Allergies: Coded Allergies: No Known Allergies (Verified , 09/12/10) Objective Last 24 Hour Vital Signs Date Time Temp Pulse Resp B/P (MAP) Pulse Ox O2 Delivery O2 Flow Rate FiO2 11/24/18 12:00 97.0 79 20 135/88 (104) 99 79 11/24/18 08:54 79 151/78 11/24/18 08:00 97.3 79 20 151/79 (103) 99 79 11/24/18 04:34 63 11/24/18 04:00 97.4 67 19 138/64 (88) 100 67 11/24/18 03:48 97.7 11/24/18 00:00 63 11/24/18 00:00 97.7 60 20 112/52 (72) 100 61 11/23/18 21:00 Nasal Cannula 2.0 11/23/18 20:59 61 108/49 11/23/18 20:00 97.0 61 20 108/49 (68) 99 61 11/23/18 20:00 62 11/23/18 16:00 97.9 62 20 113/60 (77) 95 78 11/23/18 16:00 63 Intake and Output 11/23/18 11/24/18 19:00 07:00 Intake Total 150 ml Output Total 400 ml 700 ml Balance -250 ml -700 ml Intake Oral 150 ml Output Urine Total 400 ml 700 ml # Voids 2 Objective General Appearance: cachetic Lines, tubes and drains: peripheral HEENT: normocephalic, atraumatic Neck: non-tender, normal alignment Respiratory/Chest: chest wall non-tender, lungs clear Breasts: no masses Cardiovascular/Chest: normal peripheral pulses, normal rate Abdomen: normal bowel sounds, non tender Genitourinary/Rectal: normal genital exam Extremities: normal range of motion Skin Exam: normal pigmentation 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 Laboratory Tests 11/24/18 05:28: White Blood Count 2.6L, Red Blood Count 3.33L, Hemoglobin 8.1L, Hematocrit 25.4L , Mean Corpuscular Volume 77L, Mean Corpuscular Hemoglobin 24.4L, Mean Corpuscular Hemoglobin Concent 31.8L, Red Cell Distribution Width 25.8H, Platelet Count 23L, Mean Platelet Volume 6.1L, Neutrophils (%) (Auto) , Lymphocytes (%) (Auto) , Monocytes (%) (Auto) , Eosinophils (%) (Auto) , Basophils (%) (Auto) , Differential Total Cells Counted 100, Neutrophils % ( Manual) 21L, Lymphocytes % (Manual) 58H, Monocytes % (Manual) 13H, Eosinophils % (Manual) 7H, Basophils % (Manual) 0, Band Neutrophils 1, Reactive Lymphocytes Occasional, Platelet Estimate DecreasedL, Platelet Morphology Normal, Hypochromasia 2+, Anisocytosis 3+, Microcytosis , Sodium Level 134L, Potassium Level 4.3, Chloride Level 99, Carbon Dioxide Level 27, Anion Gap 8, Blood Urea Nitrogen 33H, Creatinine 1.2, Estimat Glomerular Filtration Rate , Glucose Level 88, Calcium Level 8.3L, Phosphorus Level 2.9, Magnesium Level 2.2, Total Bilirubin 1.4H, Direct Bilirubin 0.3, Aspartate Amino Transf (AST/SGOT) 23, Alanine Aminotransferase (ALT/SGPT) 19, Alkaline Phosphatase 52, Total Protein 7.8, Albumin 3.3L, Globulin 4.5, Albumin/Globulin Ratio 0.7L Current Medications Medications (Trade) Dose Ordered Sig/Scout Route PRN Reason Start Time Stop Time Status Last Admin Dose Admin Acetaminophen (Tylenol) 650 mg Q4H PRN ORAL Mild Pain (Pain Scale 1-3) 11/18/18 10:15 12/18/18 10:14 Acetaminophen (Tylenol) 650 mg Q4H PRN ORAL fever 11/18/18 10:15 12/18/18 10:14 Acetaminophen (Tylenol) 650 mg Q4H PRN RECTAL Mild Pain (Pain Scale 1-3) 11/18/18 10:15 12/18/18 10:14 Aspirin (ASA) 81 mg DAILY ORAL 11/19/18 09:00 12/19/18 08:59 11/24/18 08:55 Atorvastatin Calcium (Lipitor) 40 mg BEDTIME ORAL 11/18/18 21:00 12/18/18 20:59 11/23/18 20:59 Bisacodyl (Dulcolax) 10 mg DAILYPRN PRN RECTAL Constipation 11/18/18 10:15 12/18/18 10:14 Carvedilol (Coreg) 12.5 mg EVERY 12 HOURS ORAL 11/21/18 21:00 12/18/18 20:59 11/24/18 08:54 Ceftriaxone Sodium 1 gm/ Dextrose 50 ml @ 100 mls/hr Q24H IVPB 11/18/18 17:00 11/25/18 16:59 11/23/18 17:53 Clopidogrel Bisulfate (Plavix) 75 mg DAILY ORAL 11/19/18 09:00 12/19/18 08:59 11/24/18 08:55 Dextrose (Dextrose 50%) 25 ml Q30M PRN IV Hypoglycemia 11/18/18 10:15 12/18/18 10:14 Dextrose (Dextrose 50%) 50 ml Q30M PRN IV Hypoglycemia 11/18/18 10:15 12/18/18 10:14 Docusate Sodium (Colace) 100 mg EVERY 12 HOURS ORAL 11/18/18 21:00 12/18/18 20:59 11/24/18 08:54 Escitalopram Oxalate (Lexapro) 15 mg DAILY ORAL 11/24/18 09:00 12/24/18 08:59 11/24/18 08:55 Levothyroxine Sodium (Synthroid) 25 mcg Q24H ORAL 11/19/18 06:30 12/19/18 06:29 11/23/18 05:47 Lorazepam (Ativan) 2 mg Q6H PRN ORAL For Anxiety 11/23/18 11:45 11/30/18 11:44 11/24/18 03:41 Magnesium Hydroxide (Mom) 30 ml HSPRN PRN ORAL Constipation 11/18/18 10:15 12/18/18 10:14 Morphine Sulfate (Morphine Sulfate) 2 mg Q4H PRN IVP Moderate Pain (Pain Scale 4-6) 11/20/18 19:00 11/27/18 18:59 11/22/18 14:42 Morphine Sulfate (Morphine Sulfate) 4 mg Q4H PRN IVP Severe Pain (Pain Scale 7-10) 11/20/18 17:30 11/27/18 17:29 11/24/18 03:12 Nitroglycerin (Ntg) 0.4 mg Q5M PRN SL Prn Chest Pain 11/18/18 10:15 12/18/18 10:14 11/20/18 17:57 Ondansetron HCl (Zofran) 4 mg Q6H PRN IVP Nausea & Vomiting 11/18/18 10:15 12/18/18 10:14 11/21/18 21:57 Pantoprazole (Protonix) 40 mg DAILY ORAL 11/19/18 09:00 12/19/18 08:59 11/24/18 08:55 Polyethylene Glycol (Miralax) 17 gm DAILYPRN PRN ORAL Constipation 11/18/18 10:15 12/18/18 10:14 Ranolazine (Ranexa ER 500mg) 1,000 mg Q12HR ORAL 11/21/18 09:00 12/21/18 08:59 11/24/18 08:55 Regadenoson (Lexiscan) 0.4 mg ONCE PRN IV stress test 11/22/18 17:30 11/24/18 17:29 Zolpidem Tartrate (Ambien) 5 mg DAILYPRN PRN ORAL Insomnia 11/18/18 10:15 11/25/18 10:14 11/23/18 23:54 Chepe Luong MD Nov 24, 2018 13:06
[2018-11-24 16:00] VITALS: BP 114/53
--- NOTE | 2018-11-24 16:56 | Diagnostic Imaging Report ---
Indication: Chest pain Technique: Resting SPECT images obtained after IV administration 10.4 mCi 90 cc Myoview. Stress images obtained, stress test canceled due to patient having low hemoglobin Comparison: 05/18/2016 Findings: Anterior wall perfusion defect is new since previous study, corresponds to an area of bursal ischemia seen on previous exam. Inferior wall apparent appears similar to the prior exam, suspect on the basis of diaphragmatic attenuation decreased activity Impression: Resting anterior wall perfusion defect is consistent with an infarct, response to an area of reversal ischemia seen on prior study of 05/18/2016 Unable to assess for ischemia in the absence of post stress images
--- NOTE | 2018-11-24 17:31 | Cardiac Electrophysiology PN ---
Assessment/Plan Assessment/Plan 1. Atypical chest pain and hx of CABG. Likely due to severe anemia. Ruled out [place]. Nuclear stress test cancelled today joan. Will schedule as out patient On aspirin, Plavix, Lipitor and Coreg.DC Aspirin and PLavix for Plt 23 only 2. Cardiomyopathy. EF now 55%. On Coreg 12.5 mg bid. Lisinopril and Lasix held for Azotemia 3. Status post [facility] atrial biventricular defibrillator. Interrogated and showed Nl Fx 4. Severe anemia, S/P PRBC. FU GI. Hb 8.1 today 5. Platelet count of 23. DC Aspirin and PLavix for now. Not on heparin DW RN and Dr West Subjective Subjective No CP or SOB.Stress test cancelled again for anemia Objective Last 24 Hour Vital Signs Date Time Temp Pulse Resp B/P (MAP) Pulse Ox O2 Delivery O2 Flow Rate FiO2 11/24/18 16:00 98.2 63 19 114/53 (73) 95 63 11/24/18 12:00 97.0 79 20 135/88 (104) 99 79 11/24/18 12:00 63 11/24/18 09:00 Nasal Cannula 2.0 11/24/18 08:54 79 151/78 11/24/18 08:00 76 11/24/18 08:00 97.3 79 20 151/79 (103) 99 79 11/24/18 04:34 63 11/24/18 04:00 97.4 67 19 138/64 (88) 100 67 11/24/18 03:48 97.7 11/24/18 00:00 63 11/24/18 00:00 97.7 60 20 112/52 (72) 100 61 11/23/18 21:00 Nasal Cannula 2.0 11/23/18 20:59 61 108/49 11/23/18 20:00 97.0 61 20 108/49 (68) 99 61 11/23/18 20:00 62 Intake and Output 11/23/18 11/24/18 19:00 07:00 Intake Total 150 ml Output Total 400 ml 700 ml Balance -250 ml -700 ml Intake Oral 150 ml Output Urine Total 400 ml 700 ml # Voids 2 Laboratory Tests Test 11/24/18 05:28 White Blood Count 2.6 K/UL (4.8-10.8) L Red Blood Count 3.33 M/UL (4.70-6.10) L Hemoglobin 8.1 G/DL (14.2-18.0) L Hematocrit 25.4 % (42.0-52.0) L Mean Corpuscular Volume 77 FL (80-99) L Mean Corpuscular Hemoglobin 24.4 PG (27.0-31.0) L Mean Corpuscular Hemoglobin Concent 31.8 G/DL (32.0-36.0) L Red Cell Distribution Width 25.8 % (11.6-14.8) H Platelet Count 23 K/UL (150-450) L Mean Platelet Volume 6.1 FL (6.5-10.1) L Neutrophils (%) (Auto) % (45.0-75.0) Lymphocytes (%) (Auto) % (20.0-45.0) Monocytes (%) (Auto) % (1.0-10.0) Eosinophils (%) (Auto) % (0.0-3.0) Basophils (%) (Auto) % (0.0-2.0) Differential Total Cells Counted 100 Neutrophils % (Manual) 21 % (45-75) L Lymphocytes % (Manual) 58 % (20-45) H Monocytes % (Manual) 13 % (1-10) H Eosinophils % (Manual) 7 % (0-3) H Basophils % (Manual) 0 % (0-2) Band Neutrophils 1 % (0-8) Reactive Lymphocytes Occasional Platelet Estimate Decreased L Platelet Morphology Normal Hypochromasia 2+ Anisocytosis 3+ Microcytosis Sodium Level 134 MMOL/L (136-145) L Potassium Level 4.3 MMOL/L (3.5-5.1) Chloride Level 99 MMOL/L (98-107) Carbon Dioxide Level 27 MMOL/L (21-32) Anion Gap 8 mmol/L (5-15) Blood Urea Nitrogen 33 mg/dL (7-18) H Creatinine 1.2 MG/DL (0.55-1.30) Estimat Glomerular Filtration Rate mL/min (>60) Glucose Level 88 MG/DL (74-106) Calcium Level 8.3 MG/DL (8.5-10.1) L Phosphorus Level 2.9 MG/DL (2.5-4.9) Magnesium Level 2.2 MG/DL (1.8-2.4) Total Bilirubin 1.4 MG/DL (0.2-1.0) H Direct Bilirubin 0.3 MG/DL (0.0-0.3) Aspartate Amino Transf (AST/SGOT) 23 U/L (15-37) Alanine Aminotransferase (ALT/SGPT) 19 U/L (12-78) Alkaline Phosphatase 52 U/L (46-116) Total Protein 7.8 G/DL (6.4-8.2) Albumin 3.3 G/DL (3.4-5.0) L Globulin 4.5 g/dL Albumin/Globulin Ratio 0.7 (1.0-2.7) L Objective HEAD AND NECK: No JVD. LUNGS: Coarse rhonchi. CARDIOVASCULAR: Regular S1 and S2 with no gallop or murmur. Sternotomy is intact. Defibrillator is in left subclavian. ABDOMEN: Soft. EXTREMITIES: 1+ pitting edema. Satinder Gee MD Nov 24, 2018 17:31
--- NOTE | 2018-11-24 18:46 | Internal Med Progress Note ---
Subjective Date of Service: Nov 24, 2018 Physician Name Nikhil West Attending Physician Abdias Hunter MD Current Medications Medications (Trade) Dose Ordered Sig/Scout Route PRN Reason Start Time Stop Time Status Last Admin Dose Admin Acetaminophen (Tylenol) 650 mg Q4H PRN ORAL Mild Pain (Pain Scale 1-3) 11/18/18 10:15 12/18/18 10:14 Acetaminophen (Tylenol) 650 mg Q4H PRN ORAL fever 11/18/18 10:15 12/18/18 10:14 Acetaminophen (Tylenol) 650 mg Q4H PRN RECTAL Mild Pain (Pain Scale 1-3) 11/18/18 10:15 12/18/18 10:14 Atorvastatin Calcium (Lipitor) 40 mg BEDTIME ORAL 11/18/18 21:00 12/18/18 20:59 11/23/18 20:59 Bisacodyl (Dulcolax) 10 mg DAILYPRN PRN RECTAL Constipation 11/18/18 10:15 12/18/18 10:14 Carvedilol (Coreg) 12.5 mg EVERY 12 HOURS ORAL 11/21/18 21:00 12/18/18 20:59 11/24/18 08:54 Dextrose (Dextrose 50%) 25 ml Q30M PRN IV Hypoglycemia 11/18/18 10:15 12/18/18 10:14 Dextrose (Dextrose 50%) 50 ml Q30M PRN IV Hypoglycemia 11/18/18 10:15 12/18/18 10:14 Docusate Sodium (Colace) 100 mg EVERY 12 HOURS ORAL 11/18/18 21:00 12/18/18 20:59 11/24/18 08:54 Escitalopram Oxalate (Lexapro) 15 mg DAILY ORAL 11/24/18 09:00 12/24/18 08:59 11/24/18 08:55 Levothyroxine Sodium (Synthroid) 25 mcg Q24H ORAL 11/19/18 06:30 12/19/18 06:29 11/23/18 05:47 Lorazepam (Ativan) 2 mg Q6H PRN ORAL For Anxiety 11/23/18 11:45 11/30/18 11:44 11/24/18 03:41 Magnesium Hydroxide (Mom) 30 ml HSPRN PRN ORAL Constipation 11/18/18 10:15 12/18/18 10:14 Morphine Sulfate (Morphine Sulfate) 2 mg Q4H PRN IVP Moderate Pain (Pain Scale 4-6) 11/20/18 19:00 11/27/18 18:59 11/22/18 14:42 Morphine Sulfate (Morphine Sulfate) 4 mg Q4H PRN IVP Severe Pain (Pain Scale 7-10) 11/20/18 17:30 11/27/18 17:29 11/24/18 03:12 Nitroglycerin (Ntg) 0.4 mg Q5M PRN SL Prn Chest Pain 11/18/18 10:15 12/18/18 10:14 11/20/18 17:57 Ondansetron HCl (Zofran) 4 mg Q6H PRN IVP Nausea & Vomiting 11/18/18 10:15 12/18/18 10:14 11/21/18 21:57 Pantoprazole (Protonix) 40 mg DAILY ORAL 11/19/18 09:00 12/19/18 08:59 11/24/18 08:55 Polyethylene Glycol (Miralax) 17 gm DAILYPRN PRN ORAL Constipation 11/18/18 10:15 12/18/18 10:14 Ranolazine (Ranexa ER 500mg) 1,000 mg Q12HR ORAL 11/21/18 09:00 12/21/18 08:59 11/24/18 08:55 Zolpidem Tartrate (Ambien) 5 mg DAILYPRN PRN ORAL Insomnia 11/18/18 10:15 11/25/18 10:14 11/23/18 23:54 Allergies: Coded Allergies: No Known Allergies (Verified , 09/12/10) ROS Limited/Unobtainable: No Constitutional: Reports: no symptoms HEENT: Reports: no symptoms Cardiovascular: Reports: no symptoms Respiratory: Reports: no symptoms Gastrointestinal/Abdominal: Reports: no symptoms Genitourinary: Reports: no symptoms Neurologic/Psychiatric: Reports: no symptoms Subjective 78 YO M admitted with chest pain. Cover for Int Med-Dr Hunter. C/O chest pain- wants morphine q 4 hr. Await cardiac nuclear stress test Objective Last Vital Signs Date Time Temp Pulse Resp B/P (MAP) Pulse Ox O2 Delivery O2 Flow Rate FiO2 11/24/18 16:00 98.2 63 19 114/53 (73) 95 63 11/24/18 09:00 Nasal Cannula 2.0 11/22/18 23:46 28 Laboratory Tests Test 11/24/18 05:28 White Blood Count 2.6 K/UL (4.8-10.8) L Red Blood Count 3.33 M/UL (4.70-6.10) L Hemoglobin 8.1 G/DL (14.2-18.0) L Hematocrit 25.4 % (42.0-52.0) L Mean Corpuscular Volume 77 FL (80-99) L Mean Corpuscular Hemoglobin 24.4 PG (27.0-31.0) L Mean Corpuscular Hemoglobin Concent 31.8 G/DL (32.0-36.0) L Red Cell Distribution Width 25.8 % (11.6-14.8) H Platelet Count 23 K/UL (150-450) L Mean Platelet Volume 6.1 FL (6.5-10.1) L Neutrophils (%) (Auto) % (45.0-75.0) Lymphocytes (%) (Auto) % (20.0-45.0) Monocytes (%) (Auto) % (1.0-10.0) Eosinophils (%) (Auto) % (0.0-3.0) Basophils (%) (Auto) % (0.0-2.0) Differential Total Cells Counted 100 Neutrophils % (Manual) 21 % (45-75) L Lymphocytes % (Manual) 58 % (20-45) H Monocytes % (Manual) 13 % (1-10) H Eosinophils % (Manual) 7 % (0-3) H Basophils % (Manual) 0 % (0-2) Band Neutrophils 1 % (0-8) Reactive Lymphocytes Occasional Platelet Estimate Decreased L Platelet Morphology Normal Hypochromasia 2+ Anisocytosis 3+ Microcytosis Sodium Level 134 MMOL/L (136-145) L Potassium Level 4.3 MMOL/L (3.5-5.1) Chloride Level 99 MMOL/L (98-107) Carbon Dioxide Level 27 MMOL/L (21-32) Anion Gap 8 mmol/L (5-15) Blood Urea Nitrogen 33 mg/dL (7-18) H Creatinine 1.2 MG/DL (0.55-1.30) Estimat Glomerular Filtration Rate mL/min (>60) Glucose Level 88 MG/DL (74-106) Calcium Level 8.3 MG/DL (8.5-10.1) L Phosphorus Level 2.9 MG/DL (2.5-4.9) Magnesium Level 2.2 MG/DL (1.8-2.4) Total Bilirubin 1.4 MG/DL (0.2-1.0) H Direct Bilirubin 0.3 MG/DL (0.0-0.3) Aspartate Amino Transf (AST/SGOT) 23 U/L (15-37) Alanine Aminotransferase (ALT/SGPT) 19 U/L (12-78) Alkaline Phosphatase 52 U/L (46-116) Total Protein 7.8 G/DL (6.4-8.2) Albumin 3.3 G/DL (3.4-5.0) L Globulin 4.5 g/dL Albumin/Globulin Ratio 0.7 (1.0-2.7) L Intake and Output 11/23/18 11/24/18 19:00 07:00 Intake Total 150 ml Output Total 400 ml 700 ml Balance -250 ml -700 ml Intake Oral 150 ml Output Urine Total 400 ml 700 ml # Voids 2 Objective PHYSICAL EXAMINATION: GENERAL: The patient awake, responsive, no acute distress. HEAD AND NECK: Pupils are equal and reactive to light. Extraocular movements are intact. Neck was supple. No JVD LUNGS: Good air entry. No wheeze or rales. HEART: S1, S2. Distant heart sounds. No murmur or gallops. Pacemaker in left-sided chest wall. ABDOMEN: Soft, nondistended, nontender. EXTREMITIES: No cyanosis, clubbing, edema. Varicose veins, bilateral lower extremities. NEUROLOGIC: Cranial nerves II through XII grossly intact. Motor is 5/5 in all extremities. Gait is intact. RECTAL: Refused and deferred. GENITOURINARY: Refused and deferred. PSYCHIATRIC: Mood and affect is depressed. Assessment/Plan Assessment/Plan ASSESSMENT: 1. Chest pain, possible acute coronary syndrome. 2. Hypertension. 3. Dyslipidemia. 4. Congestive heart failure. 5. Coronary artery disease. 6. Sick sinus syndrome, status pacemaker. 7. UTI. 8. Severe anemia 9. Thrombocytopenia PLAN: Admit the patient to telemetry. Discussed case with Dr. Gee from Cardiology Electrophysiology. Await cardiac nuclear stress test Dr. Luong, Pulmonary Critical Care. Urine cult=E. Coli. Continue Rocephin. DVT prophylaxis, heparin subcutaneous. Code status, Full Code. The patient is expected to be in the hospital greater than 2 days Discharge paln: [facility] S/P transfusion 2 units PRBC on 11/19/18 Hematology consult Nikhil West MD Nov 24, 2018 18:46
[2018-11-24 20:00] VITALS: BP 96/64
[2018-11-24] MEDS: Atorvastatin 20mg tab ORAL SCH (20:41)
[2018-11-25] VITALS: BP 119/78
[2018-11-25 02:11] LABS: APPEARANCE,URINE CLEAR; BILIRUBIN, URINE NEGATIVE (NEGATIVE); GLUCOSE, URINE (UA) NEGATIVE (NEGATIVE); KETONES,URINE NEGATIVE (NEGATIVE); LEUKOCYTE ESTERASE ,URINE 1+ (NEGATIVE); NITRITE,URINE NEGATIVE (NEGATIVE); PH,URINE 7 (4.5-8.0); PROTEIN,URINE 1+ (NEGATIVE); UROBILINOGEN,URINE 4 MG/DL (0.0-1.0)
[2018-11-25 04:00] VITALS: BP 137/73
[2018-11-25 05:18] LABS: COLOR,URINE YELLOW
[2018-11-25] MEDS: Levothyroxine 25mcg tab ORAL SCH (05:56)
[2018-11-25 08:00] VITALS: BP 121/63
[2018-11-25 08:08] LABS: HEMATOCRIT 23.4 % (42.0-52.0); HEMOGLOBIN 7.4 G/DL (14.2-18.0); MEAN CORPUSCULAR VOLUME 75 FL (80-99); PLATELET COUNT 18 K/UL (150-450)
[2018-11-25 08:17] LABS: WHITE BLOOD COUNT 2.1 K/UL (4.8-10.8)
[2018-11-25 08:27] LABS: ANION GAP 6 mmol/L (5-15); BLOOD UREA NITROGEN 24 mg/dL (7-18); CALCIUM 8.7 MG/DL (8.5-10.1); CARBON DIOXIDE 29 MMOL/L (21-32); CHLORIDE 100 MMOL/L (98-107); POTASSIUM 3.8 MMOL/L (3.5-5.1); SODIUM 135 MMOL/L (136-145)
[2018-11-25] MEDS: Docusate 100mg cap ORAL SCH ×2 (08:57→21:34)
[2018-11-25] MEDS: Carvedilol 12.5mg tab ORAL SCH ×2 (09:02→21:33)
[2018-11-25] MEDS: Ranolazine 500mg tab ORAL SCH (09:03)
--- NOTE | 2018-11-25 10:15 | GI Progress Note ---
Assessment/Plan Problems: (1) History of CVA (cerebrovascular accident) ICD Codes: Z86.73 - Personal history of transient ischemic attack (TIA), and cerebral infarction without residual deficits SNOMED: 261513706 (2) Severe anemia ICD Codes: D64.9 - Anemia, unspecified SNOMED: 761513505 (3) Abdominal pain ICD Codes: R10.9 - Unspecified abdominal pain SNOMED: 32375199 (4) GERD (gastroesophageal reflux disease) ICD Codes: K21.9 - Gastro-esophageal reflux disease without esophagitis SNOMED: 188505559 Status: unchanged Status Narrative Discussed with Dr. Mcguire. Assessment/Plan Cardiology recommendation reviewed, outpatient stress test Recent history of colonoscopy approximately 1 month ago pancytopenia Patient is on Plavix, must be discontinued for approximately 72 hours prior to any GI procedure anemia work up reviewed dc plavix, heparin abdominal US ordered plan for EGD Wednesday on cardiac diet OB stool r/o GI bleed, uncollected. monitor H&H, prn transfusions. 1 unit today bowel regime ppi fu labs The patient was seen and examined at bedside and all new and available data was reviewed in the patients chart. I agree with the above findings, impression and plan. (Patient seen earlier today. Signature stamp does not reflect patient encounter time.). - Richie Mcguire MD Subjective Subjective Abdominal versus chest pain had BM yesterday Objective Last 24 Hour Vital Signs Date Time Temp Pulse Resp B/P (MAP) Pulse Ox O2 Delivery O2 Flow Rate FiO2 11/25/18 09:02 63 121/63 11/25/18 08:00 98.1 63 17 121/63 (82) 99 11/25/18 04:00 60 11/25/18 04:00 97.5 60 18 137/73 (94) 99 11/25/18 00:00 98.1 65 20 119/78 (92) 96 11/25/18 00:00 64 11/24/18 21:00 Nasal Cannula 2.0 11/24/18 20:57 Nasal Cannula 2.0 28 11/24/18 20:57 98 Nasal Cannula 2.0 28 11/24/18 20:42 60 96/64 11/24/18 20:00 60 11/24/18 20:00 97.9 60 20 96/64 (75) 98 11/24/18 16:00 98.2 63 19 114/53 (73) 95 63 11/24/18 16:00 62 11/24/18 12:00 97.0 79 20 135/88 (104) 99 79 11/24/18 12:00 63 Intake and Output 11/24/18 11/25/18 19:00 07:00 Intake Total 720 ml 120 ml Balance 720 ml 120 ml Intake Oral 720 ml 120 ml # Voids 2 3 Laboratory Tests Test 11/24/18 23:00 11/25/18 06:52 Urine Color Yellow Urine Appearance Clear Urine pH 7 (4.5-8.0) Urine Specific [place] 1.005 (1.005-1.035) Urine Protein 1+ (NEGATIVE) H Urine Glucose (UA) Negative (NEGATIVE) Urine Ketones Negative (NEGATIVE) Urine Blood Negative (NEGATIVE) Urine Nitrite Negative (NEGATIVE) Urine Bilirubin Negative (NEGATIVE) Urine Urobilinogen 4 MG/DL (0.0-1.0) H Urine Leukocyte Esterase 1+ (NEGATIVE) H Urine RBC 0 /HPF (0 - 0) Urine WBC 5-10 /HPF (0 - 0) H Urine Squamous Epithelial Cells Few /LPF (NONE/OCC) Urine Bacteria Few /HPF (NONE) Urine Eosinophils None seen (NONE SEEN) Urine Random Creatinine Pending Urine Random Microalbumin Pending Urine Random Sodium 92 mmol/L (20-110) Urine Creatinine 57.4 MG/DL (30.0-125.0) Urine Microalbumin/Creatinine Ratio Pending Urine Potassium Timed 51 mmol/L (12-62) White Blood Count 2.1 K/UL (4.8-10.8) *L Red Blood Count 3.10 M/UL (4.70-6.10) L Hemoglobin 7.4 G/DL (14.2-18.0) L Hematocrit 23.4 % (42.0-52.0) L Mean Corpuscular Volume 75 FL (80-99) L Mean Corpuscular Hemoglobin 23.9 PG (27.0-31.0) L Mean Corpuscular Hemoglobin Concent 31.7 G/DL (32.0-36.0) L Red Cell Distribution Width 26.0 % (11.6-14.8) H Platelet Count 18 K/UL (150-450) L Mean Platelet Volume 5.3 FL (6.5-10.1) L Neutrophils (%) (Auto) % (45.0-75.0) Lymphocytes (%) (Auto) % (20.0-45.0) Monocytes (%) (Auto) % (1.0-10.0) Eosinophils (%) (Auto) % (0.0-3.0) Basophils (%) (Auto) % (0.0-2.0) Neutrophils % (Manual) Pending Lymphocytes % (Manual) Pending Platelet Estimate Pending Platelet Morphology Pending Sodium Level 135 MMOL/L (136-145) L Potassium Level 3.8 MMOL/L (3.5-5.1) Chloride Level 100 MMOL/L (98-107) Carbon Dioxide Level 29 MMOL/L (21-32) Anion Gap 6 mmol/L (5-15) Blood Urea Nitrogen 24 mg/dL (7-18) H Creatinine 1.0 MG/DL (0.55-1.30) Estimat Glomerular Filtration Rate mL/min (>60) Glucose Level 85 MG/DL (74-106) Calcium Level 8.7 MG/DL (8.5-10.1) Height (Feet): 5 Height (Inches): 6.00 Weight (Pounds): 147 General Appearance: WD/WN, no apparent distress, alert, thin Cardiovascular: normal rate Respiratory/Chest: normal breath sounds, no respiratory distress Abdominal Exam: normal bowel sounds, non tender, soft Extremities: non-tender Jason Gray NP Nov 25, 2018 10:15
[2018-11-25 12:00] VITALS: BP 120/59
--- NOTE | 2018-11-25 13:16 | Pulmonology Progress Note ---
Assessment/Plan Problems: (1) Severe thrombocytopenia (2) ACS (acute coronary syndrome) (3) Cardiomyopathy (4) HTN (hypertension) (5) Pacemaker (6) Hypothyroidism (7) CAD (coronary artery disease) Assessment/Plan stress test showed old reversible defect troponin negative check echo: Left ventricular ejection fraction estimated to be 55-60%. f/u cardiology evaluation titrate cardiac meds check electrolytes PLT decreasing, dc all meds that can cause thrombocytopenia asked pharmacy to review meds Renal evaluation requested. Renal studies ordered Subjective ROS Limited/Unobtainable: No Constitutional: Reports: no symptoms HEENT: Repors: no symptoms Respiratory: Reports: no symptoms Allergies: Coded Allergies: No Known Allergies (Verified , 09/12/10) Objective Last 24 Hour Vital Signs Date Time Temp Pulse Resp B/P (MAP) Pulse Ox O2 Delivery O2 Flow Rate FiO2 11/25/18 09:02 63 121/63 11/25/18 08:00 98.1 63 17 121/63 (82) 99 11/25/18 04:00 60 11/25/18 04:00 97.5 60 18 137/73 (94) 99 11/25/18 00:00 98.1 65 20 119/78 (92) 96 11/25/18 00:00 64 11/24/18 21:00 Nasal Cannula 2.0 11/24/18 20:57 Nasal Cannula 2.0 28 11/24/18 20:57 98 Nasal Cannula 2.0 28 11/24/18 20:42 60 96/64 11/24/18 20:00 60 11/24/18 20:00 97.9 60 20 96/64 (75) 98 11/24/18 16:00 98.2 63 19 114/53 (73) 95 63 11/24/18 16:00 62 Intake and Output 11/24/18 11/25/18 19:00 07:00 Intake Total 720 ml 120 ml Balance 720 ml 120 ml Intake Oral 720 ml 120 ml # Voids 2 3 Objective General Appearance: cachetic Lines, tubes and drains: peripheral HEENT: normocephalic, atraumatic Neck: non-tender, normal alignment Respiratory/Chest: chest wall non-tender, lungs clear Breasts: no masses Cardiovascular/Chest: normal peripheral pulses, normal rate Abdomen: normal bowel sounds, non tender Genitourinary/Rectal: normal genital exam Extremities: normal range of motion Skin Exam: normal pigmentation 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 Laboratory Tests 11/24/18 23:00: Urine Color Yellow, Urine Appearance Clear, Urine pH 7, Urine Specific [place] 1.005, Urine Protein 1+H, Urine Glucose (UA) Negative, Urine Ketones Negative, Urine Blood Negative, Urine Nitrite Negative, Urine Bilirubin Negative, Urine Urobilinogen 4H, Urine Leukocyte Esterase 1+H, Urine RBC 0, Urine WBC 5-10H, Urine Squamous Epithelial Cells Few, Urine Bacteria Few, Urine Eosinophils None seen, Urine Random Creatinine [Pending], Urine Random Microalbumin [Pending], Urine Random Sodium 92, Urine Creatinine 57.4, Urine Microalbumin/Creatinine Ratio [Pending], Urine Potassium Timed 51 11/25/18 06:52: White Blood Count 2.1*L, Red Blood Count 3.10L, Hemoglobin 7.4L, Hematocrit 23.4L, Mean Corpuscular Volume 75L, Mean Corpuscular Hemoglobin 23.9L, Mean Corpuscular Hemoglobin Concent 31.7L, Red Cell Distribution Width 26.0H, Platelet Count 18L, Mean Platelet Volume 5.3L, Neutrophils (%) (Auto) , Lymphocytes (%) (Auto) , Monocytes (%) (Auto) , Eosinophils (%) (Auto) , Basophils (%) (Auto) , Differential Total Cells Counted 100, Neutrophils % ( Manual) 17L, Lymphocytes % (Manual) 59H, Monocytes % (Manual) 14H, Eosinophils % (Manual) 7H, Basophils % (Manual) 0, Band Neutrophils 3, Platelet Estimate DecreasedL, Platelet Morphology Normal, Hypochromasia 2+, Anisocytosis 3+, Schistocytes Occasional, Sodium Level 135L, Potassium Level 3.8, Chloride Level 100, Carbon Dioxide Level 29, Anion Gap 6, Blood Urea Nitrogen 24H, Creatinine 1.0, Estimat Glomerular Filtration Rate , Glucose Level 85, Calcium Level 8.7 Current Medications Medications (Trade) Dose Ordered Sig/Scout Route PRN Reason Start Time Stop Time Status Last Admin Dose Admin Acetaminophen (Tylenol) 650 mg Q4H PRN ORAL Mild Pain (Pain Scale 1-3) 11/18/18 10:15 12/18/18 10:14 Acetaminophen (Tylenol) 650 mg Q4H PRN ORAL fever 11/18/18 10:15 12/18/18 10:14 Acetaminophen (Tylenol) 650 mg Q4H PRN RECTAL Mild Pain (Pain Scale 1-3) 11/18/18 10:15 12/18/18 10:14 Atorvastatin Calcium (Lipitor) 40 mg BEDTIME ORAL 11/18/18 21:00 12/18/18 20:59 11/24/18 20:41 Bisacodyl (Dulcolax) 10 mg DAILYPRN PRN RECTAL Constipation 11/18/18 10:15 12/18/18 10:14 Carvedilol (Coreg) 12.5 mg EVERY 12 HOURS ORAL 11/21/18 21:00 12/18/18 20:59 11/25/18 09:02 Dextrose (Dextrose 50%) 25 ml Q30M PRN IV Hypoglycemia 11/18/18 10:15 12/18/18 10:14 Dextrose (Dextrose 50%) 50 ml Q30M PRN IV Hypoglycemia 11/18/18 10:15 12/18/18 10:14 Docusate Sodium (Colace) 100 mg EVERY 12 HOURS ORAL 11/18/18 21:00 12/18/18 20:59 11/25/18 08:57 Escitalopram Oxalate (Lexapro) 15 mg DAILY ORAL 11/24/18 09:00 12/24/18 08:59 11/25/18 08:59 Levothyroxine Sodium (Synthroid) 25 mcg Q24H ORAL 11/19/18 06:30 12/19/18 06:29 11/25/18 05:56 Lorazepam (Ativan) 2 mg Q6H PRN ORAL For Anxiety 11/23/18 11:45 11/30/18 11:44 11/24/18 03:41 Magnesium Hydroxide (Mom) 30 ml HSPRN PRN ORAL Constipation 11/18/18 10:15 12/18/18 10:14 Morphine Sulfate (Morphine Sulfate) 2 mg Q4H PRN IVP Moderate Pain (Pain Scale 4-6) 11/20/18 19:00 11/27/18 18:59 11/22/18 14:42 Morphine Sulfate (Morphine Sulfate) 4 mg Q4H PRN IVP Severe Pain (Pain Scale 7-10) 11/20/18 17:30 11/27/18 17:29 11/24/18 03:12 Nitroglycerin (Ntg) 0.4 mg Q5M PRN SL Prn Chest Pain 11/18/18 10:15 12/18/18 10:14 11/20/18 17:57 Ondansetron HCl (Zofran) 4 mg Q6H PRN IVP Nausea & Vomiting 11/18/18 10:15 12/18/18 10:14 11/21/18 21:57 Pantoprazole (Protonix) 40 mg DAILY ORAL 11/19/18 09:00 12/19/18 08:59 11/25/18 08:57 Polyethylene Glycol (Miralax) 17 gm DAILYPRN PRN ORAL Constipation 11/18/18 10:15 12/18/18 10:14 Ranolazine (Ranexa ER 500mg) 1,000 mg Q12HR ORAL 11/21/18 09:00 12/21/18 08:59 11/25/18 09:03 Chepe Luong MD Nov 25, 2018 13:16
[2018-11-25 16:00] VITALS: BP 121/63
--- NOTE | 2018-11-25 16:00 | Internal Med Progress Note ---
Subjective Physician Name Abdias Hunter Attending Physician Abdias Hunter MD Current Medications Medications (Trade) Dose Ordered Sig/Scout Route PRN Reason Start Time Stop Time Status Last Admin Dose Admin Acetaminophen (Tylenol) 650 mg Q4H PRN ORAL Mild Pain (Pain Scale 1-3) 11/18/18 10:15 12/18/18 10:14 Acetaminophen (Tylenol) 650 mg Q4H PRN ORAL fever 11/18/18 10:15 12/18/18 10:14 Acetaminophen (Tylenol) 650 mg Q4H PRN RECTAL Mild Pain (Pain Scale 1-3) 11/18/18 10:15 12/18/18 10:14 Atorvastatin Calcium (Lipitor) 40 mg BEDTIME ORAL 11/18/18 21:00 12/18/18 20:59 11/24/18 20:41 Bisacodyl (Dulcolax) 10 mg DAILYPRN PRN RECTAL Constipation 11/18/18 10:15 12/18/18 10:14 Carvedilol (Coreg) 12.5 mg EVERY 12 HOURS ORAL 11/21/18 21:00 12/18/18 20:59 11/25/18 09:02 Dextrose (Dextrose 50%) 25 ml Q30M PRN IV Hypoglycemia 11/18/18 10:15 12/18/18 10:14 Dextrose (Dextrose 50%) 50 ml Q30M PRN IV Hypoglycemia 11/18/18 10:15 12/18/18 10:14 Docusate Sodium (Colace) 100 mg EVERY 12 HOURS ORAL 11/18/18 21:00 12/18/18 20:59 11/25/18 08:57 Escitalopram Oxalate (Lexapro) 15 mg DAILY ORAL 11/24/18 09:00 12/24/18 08:59 11/25/18 08:59 Levothyroxine Sodium (Synthroid) 25 mcg Q24H ORAL 11/19/18 06:30 12/19/18 06:29 11/25/18 05:56 Lorazepam (Ativan) 2 mg Q6H PRN ORAL For Anxiety 11/23/18 11:45 11/30/18 11:44 11/24/18 03:41 Magnesium Hydroxide (Mom) 30 ml HSPRN PRN ORAL Constipation 11/18/18 10:15 12/18/18 10:14 Morphine Sulfate (Morphine Sulfate) 2 mg Q4H PRN IVP Moderate Pain (Pain Scale 4-6) 11/20/18 19:00 11/27/18 18:59 11/22/18 14:42 Morphine Sulfate (Morphine Sulfate) 4 mg Q4H PRN IVP Severe Pain (Pain Scale 7-10) 11/20/18 17:30 11/27/18 17:29 11/24/18 03:12 Nitroglycerin (Ntg) 0.4 mg Q5M PRN SL Prn Chest Pain 11/18/18 10:15 12/18/18 10:14 11/20/18 17:57 Ondansetron HCl (Zofran) 4 mg Q6H PRN IVP Nausea & Vomiting 11/18/18 10:15 12/18/18 10:14 11/21/18 21:57 Pantoprazole (Protonix) 40 mg DAILY ORAL 11/19/18 09:00 12/19/18 08:59 11/25/18 08:57 Polyethylene Glycol (Miralax) 17 gm DAILYPRN PRN ORAL Constipation 11/18/18 10:15 12/18/18 10:14 Ranolazine (Ranexa ER 500mg) 1,000 mg Q12HR ORAL 11/21/18 09:00 12/21/18 08:59 11/25/18 09:03 Allergies: Coded Allergies: No Known Allergies (Verified , 09/12/10) Subjective Patient is alert, oriented, no acute distress, talkative, no chest pain, no shortness of breath, hemoglobin level is 7.4, platelet level is 18. Objective Last Vital Signs Date Time Temp Pulse Resp B/P (MAP) Pulse Ox O2 Delivery O2 Flow Rate FiO2 11/25/18 12:00 97.9 65 19 120/59 (79) 98 11/25/18 09:00 Nasal Cannula 2.0 11/25/18 08:14 28 Laboratory Tests Test 11/24/18 23:00 11/25/18 06:52 Urine Color Yellow Urine Appearance Clear Urine pH 7 (4.5-8.0) Urine Specific [place] 1.005 (1.005-1.035) Urine Protein 1+ (NEGATIVE) H Urine Glucose (UA) Negative (NEGATIVE) Urine Ketones Negative (NEGATIVE) Urine Blood Negative (NEGATIVE) Urine Nitrite Negative (NEGATIVE) Urine Bilirubin Negative (NEGATIVE) Urine Urobilinogen 4 MG/DL (0.0-1.0) H Urine Leukocyte Esterase 1+ (NEGATIVE) H Urine RBC 0 /HPF (0 - 0) Urine WBC 5-10 /HPF (0 - 0) H Urine Squamous Epithelial Cells Few /LPF (NONE/OCC) Urine Bacteria Few /HPF (NONE) Urine Eosinophils None seen (NONE SEEN) Urine Random Creatinine Pending Urine Random Microalbumin Pending Urine Random Sodium 92 mmol/L (20-110) Urine Creatinine 57.4 MG/DL (30.0-125.0) Urine Microalbumin/Creatinine Ratio Pending Urine Potassium Timed 51 mmol/L (12-62) White Blood Count 2.1 K/UL (4.8-10.8) *L Red Blood Count 3.10 M/UL (4.70-6.10) L Hemoglobin 7.4 G/DL (14.2-18.0) L Hematocrit 23.4 % (42.0-52.0) L Mean Corpuscular Volume 75 FL (80-99) L Mean Corpuscular Hemoglobin 23.9 PG (27.0-31.0) L Mean Corpuscular Hemoglobin Concent 31.7 G/DL (32.0-36.0) L Red Cell Distribution Width 26.0 % (11.6-14.8) H Platelet Count 18 K/UL (150-450) L Mean Platelet Volume 5.3 FL (6.5-10.1) L Neutrophils (%) (Auto) % (45.0-75.0) Lymphocytes (%) (Auto) % (20.0-45.0) Monocytes (%) (Auto) % (1.0-10.0) Eosinophils (%) (Auto) % (0.0-3.0) Basophils (%) (Auto) % (0.0-2.0) Differential Total Cells Counted 100 Neutrophils % (Manual) 17 % (45-75) L Lymphocytes % (Manual) 59 % (20-45) H Monocytes % (Manual) 14 % (1-10) H Eosinophils % (Manual) 7 % (0-3) H Basophils % (Manual) 0 % (0-2) Band Neutrophils 3 % (0-8) Platelet Estimate Decreased L Platelet Morphology Normal Hypochromasia 2+ Anisocytosis 3+ Schistocytes Occasional Sodium Level 135 MMOL/L (136-145) L Potassium Level 3.8 MMOL/L (3.5-5.1) Chloride Level 100 MMOL/L (98-107) Carbon Dioxide Level 29 MMOL/L (21-32) Anion Gap 6 mmol/L (5-15) Blood Urea Nitrogen 24 mg/dL (7-18) H Creatinine 1.0 MG/DL (0.55-1.30) Estimat Glomerular Filtration Rate mL/min (>60) Glucose Level 85 MG/DL (74-106) Calcium Level 8.7 MG/DL (8.5-10.1) Intake and Output 11/24/18 11/25/18 19:00 07:00 Intake Total 720 ml 120 ml Balance 720 ml 120 ml Intake Oral 720 ml 120 ml # Voids 2 3 Objective General: No acute distress, awake and alert HEENT: NCAT, sclera anicteric, PERRL, EOMI. Neck: Supple, no significant jugular venous distention, Lungs: Good inspiratory effort, clear to auscultation bilaterally, no Wheeze or Rales. Heart: Regular rate and rhythm, normal S1/S2, no murmur, AICD @ LCW. Abdomen: soft, nontender, nondistended. Normoactive bowel sounds. Extremities: No Cyanosis , clubbing or edema. Neuro: A&O x 3, Able to move all extremities Assessment/Plan Assessment/Plan 1. Chest pain, possible acute coronary syndrome. 2. Hypertension. 3. Dyslipidemia. 4. Congestive heart failure. 5. Coronary artery disease. 6. Sick sinus syndrome, status pacemaker. 7. Acute E. coli UTI. 8. Pancytopenia with his severe thrombocytopenia with platelet level 18. PLAN: In telemetry. Monitor laboratory. Transfuse 1 unit of packed RBC today. Discussed case with Dr. Gee from Cardiology Electrophysiology. Dr. Luong, Pulmonary Critical Care. We will absorb patient without any antibiotics at this time. DVT prophylaxis: SCD , DC heparin subcutaneous due to the severe thrombocytopenia. Code status, Full Code. Discharge planning to the snf once patient's stable. Abdias Hunter MD Nov 25, 2018 16:00
--- NOTE | 2018-11-25 17:28 | Consultation ---
History of Present Illness General Chief Complaint: Chest Pain Referring physician: JENNIE HUNTER Reason for Consultation: Anemia, abdominal pain Present Illness Allergies: Coded Allergies: No Known Allergies (Verified , 09/12/10) Medication History Scheduled Aspirin* (Aspirin*), 81 MG ORAL DAILY Atorvastatin Calcium* (Atorvastatin Calcium*), 40 MG ORAL BEDTIME Carvedilol (Coreg), 3.125 MG ORAL EVERY 12 HOURS Clopidogrel Bisulfate* (Plavix*), 75 MG ORAL DAILY Escitalopram Oxalate (Lexapro), 5 MG ORAL DAILY, (Reported) Furosemide* (Lasix*), 40 MG ORAL DAILY, (Reported) Levothyroxine Sodium (Synthroid), 25 MCG ORAL DAILY, (Reported) Lisinopril (Lisinopril*), 40 MG ORAL DAILY Pantoprazole* (Protonix*), 40 MG ORAL DAILY, (Reported) Ranolazine* (Ranexa*), 1,000 MG ORAL Q12HR Miscellaneous Medications Hydralazine HCl (Hydralazine HCl), 25 MG PO, (Reported) Lactulose (Lactulose), 10 GM PO, (Reported) Unable to Obtain Medications (Unable To Obtain Meds), (Reported) [metropolol], 25 MG PO, (Reported) Patient History Healthcare decision maker Resuscitation status Chemical (Meds Only) Advanced Directive on File Physical Exam Last 24 Hour Vital Signs Date Time Temp Pulse Resp B/P (MAP) Pulse Ox O2 Delivery O2 Flow Rate FiO2 11/25/18 16:00 63 11/25/18 16:00 98.9 63 17 121/63 (82) 98 11/25/18 12:00 97.9 65 19 120/59 (79) 98 11/25/18 11:37 61 11/25/18 09:02 63 121/63 11/25/18 09:00 Nasal Cannula 2.0 11/25/18 08:14 98 Nasal Cannula 2.0 28 11/25/18 08:14 Nasal Cannula 2.0 28 11/25/18 08:00 98.1 63 17 121/63 (82) 99 11/25/18 07:49 71 11/25/18 04:00 60 11/25/18 04:00 97.5 60 18 137/73 (94) 99 11/25/18 00:00 98.1 65 20 119/78 (92) 96 11/25/18 00:00 64 11/24/18 21:00 Nasal Cannula 2.0 11/24/18 20:57 Nasal Cannula 2.0 28 11/24/18 20:57 98 Nasal Cannula 2.0 28 11/24/18 20:42 60 96/64 11/24/18 20:00 60 11/24/18 20:00 97.9 60 20 96/64 (75) 98 Intake and Output 11/24/18 11/25/18 19:00 07:00 Intake Total 720 ml 120 ml Balance 720 ml 120 ml Intake Oral 720 ml 120 ml # Voids 2 3 Laboratory Tests Test 11/24/18 23:00 11/25/18 06:52 Urine Color Yellow Urine Appearance Clear Urine pH 7 (4.5-8.0) Urine Specific [place] 1.005 (1.005-1.035) Urine Protein 1+ (NEGATIVE) H Urine Glucose (UA) Negative (NEGATIVE) Urine Ketones Negative (NEGATIVE) Urine Blood Negative (NEGATIVE) Urine Nitrite Negative (NEGATIVE) Urine Bilirubin Negative (NEGATIVE) Urine Urobilinogen 4 MG/DL (0.0-1.0) H Urine Leukocyte Esterase 1+ (NEGATIVE) H Urine RBC 0 /HPF (0 - 0) Urine WBC 5-10 /HPF (0 - 0) H Urine Squamous Epithelial Cells Few /LPF (NONE/OCC) Urine Bacteria Few /HPF (NONE) Urine Eosinophils None seen (NONE SEEN) Urine Random Creatinine Pending Urine Random Microalbumin Pending Urine Random Sodium 92 mmol/L (20-110) Urine Creatinine 57.4 MG/DL (30.0-125.0) Urine Microalbumin/Creatinine Ratio Pending Urine Potassium Timed 51 mmol/L (12-62) White Blood Count 2.1 K/UL (4.8-10.8) *L Red Blood Count 3.10 M/UL (4.70-6.10) L Hemoglobin 7.4 G/DL (14.2-18.0) L Hematocrit 23.4 % (42.0-52.0) L Mean Corpuscular Volume 75 FL (80-99) L Mean Corpuscular Hemoglobin 23.9 PG (27.0-31.0) L Mean Corpuscular Hemoglobin Concent 31.7 G/DL (32.0-36.0) L Red Cell Distribution Width 26.0 % (11.6-14.8) H Platelet Count 18 K/UL (150-450) L Mean Platelet Volume 5.3 FL (6.5-10.1) L Neutrophils (%) (Auto) % (45.0-75.0) Lymphocytes (%) (Auto) % (20.0-45.0) Monocytes (%) (Auto) % (1.0-10.0) Eosinophils (%) (Auto) % (0.0-3.0) Basophils (%) (Auto) % (0.0-2.0) Differential Total Cells Counted 100 Neutrophils % (Manual) 17 % (45-75) L Lymphocytes % (Manual) 59 % (20-45) H Monocytes % (Manual) 14 % (1-10) H Eosinophils % (Manual) 7 % (0-3) H Basophils % (Manual) 0 % (0-2) Band Neutrophils 3 % (0-8) Platelet Estimate Decreased L Platelet Morphology Normal Hypochromasia 2+ Anisocytosis 3+ Schistocytes Occasional Sodium Level 135 MMOL/L (136-145) L Potassium Level 3.8 MMOL/L (3.5-5.1) Chloride Level 100 MMOL/L (98-107) Carbon Dioxide Level 29 MMOL/L (21-32) Anion Gap 6 mmol/L (5-15) Blood Urea Nitrogen 24 mg/dL (7-18) H Creatinine 1.0 MG/DL (0.55-1.30) Estimat Glomerular Filtration Rate mL/min (>60) Glucose Level 85 MG/DL (74-106) Calcium Level 8.7 MG/DL (8.5-10.1) Height (Feet): 5 Height (Inches): 6.00 Weight (Pounds): 147 Medications Current Medications Medications (Trade) Dose Ordered Sig/Scout Route PRN Reason Start Time Stop Time Status Last Admin Dose Admin Acetaminophen (Tylenol) 650 mg Q4H PRN ORAL Mild Pain (Pain Scale 1-3) 11/18/18 10:15 12/18/18 10:14 11/25/18 17:19 Acetaminophen (Tylenol) 650 mg Q4H PRN ORAL fever 11/18/18 10:15 12/18/18 10:14 Acetaminophen (Tylenol) 650 mg Q4H PRN RECTAL Mild Pain (Pain Scale 1-3) 11/18/18 10:15 12/18/18 10:14 Atorvastatin Calcium (Lipitor) 40 mg BEDTIME ORAL 11/18/18 21:00 12/18/18 20:59 11/24/18 20:41 Bisacodyl (Dulcolax) 10 mg DAILYPRN PRN RECTAL Constipation 11/18/18 10:15 12/18/18 10:14 Carvedilol (Coreg) 12.5 mg EVERY 12 HOURS ORAL 11/21/18 21:00 12/18/18 20:59 11/25/18 09:02 Dextrose (Dextrose 50%) 25 ml Q30M PRN IV Hypoglycemia 11/18/18 10:15 12/18/18 10:14 Dextrose (Dextrose 50%) 50 ml Q30M PRN IV Hypoglycemia 11/18/18 10:15 12/18/18 10:14 Docusate Sodium (Colace) 100 mg EVERY 12 HOURS ORAL 11/18/18 21:00 12/18/18 20:59 11/25/18 08:57 Escitalopram Oxalate (Lexapro) 15 mg DAILY ORAL 11/24/18 09:00 12/24/18 08:59 11/25/18 08:59 Levothyroxine Sodium (Synthroid) 25 mcg Q24H ORAL 11/19/18 06:30 12/19/18 06:29 11/25/18 05:56 Lorazepam (Ativan) 2 mg Q6H PRN ORAL For Anxiety 11/23/18 11:45 11/30/18 11:44 11/24/18 03:41 Magnesium Hydroxide (Mom) 30 ml HSPRN PRN ORAL Constipation 11/18/18 10:15 12/18/18 10:14 Morphine Sulfate (Morphine Sulfate) 2 mg Q4H PRN IVP Moderate Pain (Pain Scale 4-6) 11/20/18 19:00 11/27/18 18:59 11/22/18 14:42 Morphine Sulfate (Morphine Sulfate) 4 mg Q4H PRN IVP Severe Pain (Pain Scale 7-10) 11/20/18 17:30 11/27/18 17:29 11/24/18 03:12 Nitroglycerin (Ntg) 0.4 mg Q5M PRN SL Prn Chest Pain 11/18/18 10:15 12/18/18 10:14 11/20/18 17:57 Ondansetron HCl (Zofran) 4 mg Q6H PRN IVP Nausea & Vomiting 11/18/18 10:15 12/18/18 10:14 11/21/18 21:57 Pantoprazole (Protonix) 40 mg DAILY ORAL 11/19/18 09:00 12/19/18 08:59 11/25/18 08:57 Polyethylene Glycol (Miralax) 17 gm DAILYPRN PRN ORAL Constipation 11/18/18 10:15 12/18/18 10:14 Assessment/Plan Assessment/Plan Hematology Consultation REQ MD: Jenna Hunter DOS: 11/25/18 RFC: SEVERE Pancytopenia HPI Is a 78-year-old male with a cardiac history with previous CABG and pacemaker. He presents with chief complaint of chest pain. He is a very vague historian. He said he get chest pain on and off all the time. He said recent admission was to [facility] 3 months ago. He presents with chief complaint of chest pain. Onset tonight. Per long term, the going to give him nitroglycerin but he refused. He insists on calling 911. [facility] gave him nitroglycerin aspirin he said he felt better. Pain is substernal. No radiation. No nausea no vomiting. Pain is sharp. Pain is 7 out of 10. No exertional component. No diaphoresis. No shortness of breath. Has been seen by multiple services, have reviewed their recs, the plt count has downtrended markedly over last few days and heme was consulted to evaluate the situation. Allergies: No Known Allergies (Verified , 09/12/10) Past Medical History: see triage record, old chart reviewed, HTN, AK, CAD, CHF Past Surgical History: CABG, pacemaker Pertinent Family History: none Social History: Denies: smoking Immunizations: other Reviewed Nursing Documentation: PMH: Agreed; PSxH: Agreed Past Medical History: No History, Except For Hx Cardiac Problems: Yes - Left upper chest pacemaker Hx Hypertension: Yes Hx Pacemaker: Yes Hx Cancer: No Hx Gastrointestinal Problems: No Hx Neurological Problems: No ROS Eye: Denies: eye pain, blurred vision ENT: Denies: ear pain, nose congestion, throat swelling Respiratory: Denies: cough, shortness of breath Cardiovascular: Reports: chest pain; Denies: palpitations Gastrointestinal: Denies: abdominal pain, diarrhea, nausea, vomiting Musculoskeletal: Denies: back pain, joint pain Skin: Denies: rash Neurological: Denies: headache, numbness Endocrine: Denies: increased thirst, increased urine Hematologic/Lymphatic: Denies: easy bruising All Other Systems: negative except mentioned in HPI Physical Exam: Last 24 Hour Vital Signs Date Time Temp Pulse Resp B/P (MAP) Pulse Ox O2 Delivery O2 Flow Rate FiO2 11/25/18 16:00 63 11/25/18 16:00 98.9 63 17 121/63 (82) 98 11/25/18 12:00 97.9 65 19 120/59 (79) 98 11/25/18 11:37 61 11/25/18 09:02 63 121/63 11/25/18 09:00 Nasal Cannula 2.0 11/25/18 08:14 98 Nasal Cannula 2.0 28 11/25/18 08:14 Nasal Cannula 2.0 28 11/25/18 08:00 98.1 63 17 121/63 (82) 99 11/25/18 07:49 71 11/25/18 04:00 60 11/25/18 04:00 97.5 60 18 137/73 (94) 99 11/25/18 00:00 98.1 65 20 119/78 (92) 96 11/25/18 00:00 64 11/24/18 21:00 Nasal Cannula 2.0 11/24/18 20:57 Nasal Cannula 2.0 28 11/24/18 20:57 98 Nasal Cannula 2.0 28 11/24/18 20:42 60 96/64 11/24/18 20:00 60 11/24/18 20:00 97.9 60 20 96/64 (75) 98 Sp02 EP: reviewed, normal General Appearance: well appearing, nad, alert Head: normocephalic, atraumatic Eyes: b/l eye PERRL, bilateral eye EOMI ENT: hearing grossly normal, normal pharynx Neck: full range of motion, supple, no meningismus Respiratory: chest non-tender, lungs clear, normal breath sounds Cardiovascular: regular rate, rhythm, no murmur Gastrointestinal: normal bowel sounds, non tender, no mass, no organomegaly, no bruit, non-distended Musculoskeletal: back normal, gait/station normal, normal range of motion Psychiatric: mood/affect normal Skin: warm/dry Labs: noted Assessment/Plan # Severe Pancytopenia -- multiple etiologies could be related to underlying liver disease, medication-induced, infection versus viral syndrome --> peripheral smear has been ordered and does not show significant abnormalities --> Continue to monitor for improvement, trend cbc --> Hep panel and HIV have been ordered --> US abd ordered to r/o cirrhosis and hepatosplenomegaly --> consider other causes, infections that could contribute --> reverse isolation if ANC is <2000 --> Give neupogen if ANC <1000 --> Transfuse if hgb <7, with 1 unit prbc --> consider bone marrow biopsy if no other causes are found --> medications have been reviewed as well # Anemia of chronic disease (or of iron deficiency) due to underlying chronic medical issues, multifactorial --> Anemia workup has been ordered --> No evidence of hemolysis is noted, peripheral smear has been reviewed. --> Hgb goal >7. Transfuse prn. --> Epogen or iron at this time is not particularly indicated --> Medications have been reviewed # Reticulcytosis with elevated bilirubin that is indirect --> obtain direct and indirect bilis again --> evaluate for liver disease with hep US --> evaluate as needed with gi team, recs apprecaited #. Chest pain, possible acute coronary syndrome. --> cards recs appreciated as well as pulm #. Hypertension. #. Dyslipidemia. #. Congestive heart failure. #. Coronary artery disease. #. Sick sinus syndrome, status pacemaker. #. Acute E. coli UTI. The timing of this note does not necessarily reflect the time of the patient was seen. Greatly appreciate consultation! Jose Alberto España MD Nov 25, 2018 17:28
--- NOTE | 2018-11-25 19:10 | Cardiac Electrophysiology PN ---
Assessment/Plan Assessment/Plan 1. Atypical chest pain and hx of CABG. Likely due to severe anemia. Ruled out [place]. Nuclear stress test cancelled for severe anemia. Will schedule as out patient On Lipitor and Coreg.DCed Aspirin and PLavix for anemia and Plt 18 only 2. Cardiomyopathy. EF now 55%. On Coreg 12.5 mg bid. Lisinopril and Lasix held for Azotemia 3. Status post [facility] atrial biventricular defibrillator. Interrogated and showed Nl Fx 4. Severe anemia, S/P PRBC. FU GI. Hb 8.1 today 5. Platelet count of 18. Off Aspirin and PLavix DW RN Subjective Subjective Very weak. Still has anemia and thrombocytopenia Objective Last 24 Hour Vital Signs Date Time Temp Pulse Resp B/P (MAP) Pulse Ox O2 Delivery O2 Flow Rate FiO2 11/25/18 16:00 63 11/25/18 16:00 98.9 63 17 121/63 (82) 98 11/25/18 12:00 97.9 65 19 120/59 (79) 98 11/25/18 11:37 61 11/25/18 09:02 63 121/63 11/25/18 09:00 Nasal Cannula 2.0 11/25/18 08:14 98 Nasal Cannula 2.0 28 11/25/18 08:14 Nasal Cannula 2.0 28 11/25/18 08:00 98.1 63 17 121/63 (82) 99 11/25/18 07:49 71 11/25/18 04:00 60 11/25/18 04:00 97.5 60 18 137/73 (94) 99 11/25/18 00:00 98.1 65 20 119/78 (92) 96 11/25/18 00:00 64 11/24/18 21:00 Nasal Cannula 2.0 11/24/18 20:57 Nasal Cannula 2.0 28 11/24/18 20:57 98 Nasal Cannula 2.0 28 11/24/18 20:42 60 96/64 11/24/18 20:00 60 11/24/18 20:00 97.9 60 20 96/64 (75) 98 Intake and Output 11/24/18 11/25/18 19:00 07:00 Intake Total 720 ml 120 ml Balance 720 ml 120 ml Intake Oral 720 ml 120 ml # Voids 2 3 Laboratory Tests Test 11/24/18 23:00 2/22/19 06:52 Urine Color Yellow Urine Appearance Clear Urine pH 7 (4.5-8.0) Urine Specific [place] 1.005 (1.005-1.035) Urine Protein 1+ (NEGATIVE) H Urine Glucose (UA) Negative (NEGATIVE) Urine Ketones Negative (NEGATIVE) Urine Blood Negative (NEGATIVE) Urine Nitrite Negative (NEGATIVE) Urine Bilirubin Negative (NEGATIVE) Urine Urobilinogen 4 MG/DL (0.0-1.0) H Urine Leukocyte Esterase 1+ (NEGATIVE) H Urine RBC 0 /HPF (0 - 0) Urine WBC 5-10 /HPF (0 - 0) H Urine Squamous Epithelial Cells Few /LPF (NONE/OCC) Urine Bacteria Few /HPF (NONE) Urine Eosinophils None seen (NONE SEEN) Urine Random Creatinine Pending Urine Random Microalbumin Pending Urine Random Sodium 92 mmol/L (20-110) Urine Creatinine 57.4 MG/DL (30.0-125.0) Urine Microalbumin/Creatinine Ratio Pending Urine Potassium Timed 51 mmol/L (12-62) White Blood Count 2.1 K/UL (4.8-10.8) *L Red Blood Count 3.10 M/UL (4.70-6.10) L Hemoglobin 7.4 G/DL (14.2-18.0) L Hematocrit 23.4 % (42.0-52.0) L Mean Corpuscular Volume 75 FL (80-99) L Mean Corpuscular Hemoglobin 23.9 PG (27.0-31.0) L Mean Corpuscular Hemoglobin Concent 31.7 G/DL (32.0-36.0) L Red Cell Distribution Width 26.0 % (11.6-14.8) H Platelet Count 18 K/UL (150-450) L Mean Platelet Volume 5.3 FL (6.5-10.1) L Neutrophils (%) (Auto) % (45.0-75.0) Lymphocytes (%) (Auto) % (20.0-45.0) Monocytes (%) (Auto) % (1.0-10.0) Eosinophils (%) (Auto) % (0.0-3.0) Basophils (%) (Auto) % (0.0-2.0) Differential Total Cells Counted 100 Neutrophils % (Manual) 17 % (45-75) L Lymphocytes % (Manual) 59 % (20-45) H Monocytes % (Manual) 14 % (1-10) H Eosinophils % (Manual) 7 % (0-3) H Basophils % (Manual) 0 % (0-2) Band Neutrophils 3 % (0-8) Platelet Estimate Decreased L Platelet Morphology Normal Hypochromasia 2+ Anisocytosis 3+ Schistocytes Occasional Sodium Level 135 MMOL/L (136-145) L Potassium Level 3.8 MMOL/L (3.5-5.1) Chloride Level 100 MMOL/L (98-107) Carbon Dioxide Level 29 MMOL/L (21-32) Anion Gap 6 mmol/L (5-15) Blood Urea Nitrogen 24 mg/dL (7-18) H Creatinine 1.0 MG/DL (0.55-1.30) Estimat Glomerular Filtration Rate mL/min (>60) Glucose Level 85 MG/DL (74-106) Calcium Level 8.7 MG/DL (8.5-10.1) Objective HEAD AND NECK: No JVD. LUNGS: Coarse rhonchi. CARDIOVASCULAR: Regular S1 and S2 with no gallop or murmur. Sternotomy is intact. Defibrillator is in left subclavian. ABDOMEN: Soft. EXTREMITIES: 1+ pitting edema. Satinder Gee MD Nov 25, 2018 19:10
[2018-11-25 20:00] VITALS: BP 136/69
[2018-11-25 20:07] LABS: BILIRUBIN,DIRECT 0.3 MG/DL (0.0-0.3); BILIRUBIN,TOTAL 1.2 MG/DL (0.2-1.0); FERRITIN 466 NG/ML (8-388); LACTATE DEHYDROGENASE 247 U/L (81-234)
[2018-11-25 20:22] LABS: % IRON SATURATION 64 % (15-50); IRON 168 ug/dL (50-175); TOTAL IRON BINDING CAPACITY 263 ug/dL (250-450)
[2018-11-25 21:16] LABS: INR 1.1 (0.9-1.1)
[2018-11-25] MEDS: Atorvastatin 20mg tab ORAL SCH (21:33)
[2018-11-25] MEDS: Morphine Sulfate 4mg/ml Inj (IV USE ONLY) IVP PRN (22:44)
[2018-11-26] VITALS: BP 112/57
[2018-11-26] MEDS: Morphine Sulfate 2mg/ml Inj(IV/IM USE ONLY) IVP PRN (02:16)
[2018-11-26 04:00] VITALS: BP 103/56
[2018-11-26] MEDS: Levothyroxine 25mcg tab ORAL SCH (07:09)
--- NOTE | 2018-11-26 07:31 | Pulmonology Progress Note ---
Assessment/Plan Assessment/Plan ASSESSMENT. atypical CP, likely due to severe anemia HTN CHF CAD with hx of CABG Severe pulmonary HTN AICD,s/p interrogation Hx of CM, ( now stable EF) Dyslipidemia E. coli UTI. Pancytopenia with severe anemia and thrombocytopenia MDD Anxiety disorder PLAN OF CARE telemetry status O2 HHN prn serial troponin negative, EKG revealed no acute ischemic changes patient was ruled out for acute [place] Echo revealed pEF of 55% 55-60% , no evidence of LVH, normal left ventricular chamber size, systolic function function and wall motion to the extent visualized, moderately elevated left atrial pressure grade 2. Right ventricular systolic pressure of 61 c/w severe pulmonary hypertension nuclear stress test revealed old anterior wall perfusion defect c/w area of reversible ischemia seen on prior study on 05/18/2016 cardio follows off ASA and Plavix secondary to severe anemia and thrombocytopenia continue BB , off Lisinopril and Lasix due to azotemia [place] atrial biventricular defibrillator was interrogated and showed normal functioing pain management HH closely monitored with goal to keep Hgb above 7 , s/p 3 u PRBC bods developer follows anemia workup revealed stable iron ,B12 and folate level. PLT down to 13 today , discussed with bods developer , will transfuse with 1 unit of plateletpheresis HIV nonreactive, hep panel negative patient may need a bone marrow biopsy if no other causes will be identified urine culture+ E. coli ,abx psychiatric medication regimen as per psychiatrist case discussed and evaluated by supervising physician Subjective Allergies: Coded Allergies: No Known Allergies (Verified , 09/12/10) Subjective on O2 via N pulse ox stable no SOB denies chest pain, palpitations PLT down to 13 Objective Last 24 Hour Vital Signs Date Time Temp Pulse Resp B/P (MAP) Pulse Ox O2 Delivery O2 Flow Rate FiO2 11/26/18 04:00 60 11/26/18 04:00 98.0 60 18 103/56 (72) 96 11/26/18 00:00 98.0 60 18 112/57 (75) 99 11/25/18 23:52 60 11/25/18 22:42 Nasal Cannula 2.0 28 11/25/18 22:41 98 Nasal Cannula 2.0 28 11/25/18 21:33 63 136/69 11/25/18 21:00 Nasal Cannula 2.0 11/25/18 20:00 98.2 63 18 136/69 (91) 97 11/25/18 19:49 64 11/25/18 16:00 63 11/25/18 16:00 98.9 63 17 121/63 (82) 98 11/25/18 12:00 97.9 65 19 120/59 (79) 98 11/25/18 11:37 61 11/25/18 09:02 63 121/63 11/25/18 09:00 Nasal Cannula 2.0 11/25/18 08:14 98 Nasal Cannula 2.0 28 11/25/18 08:14 Nasal Cannula 2.0 28 11/25/18 08:00 98.1 63 17 121/63 (82) 99 11/25/18 07:49 71 Intake and Output 11/25/18 11/26/18 18:59 06:59 Intake Total 250 ml Balance 250 ml IV Total 0 ml Blood Product 250 ml # Voids 1 1 General Appearance: no acute distress, other - awake, alert, pale HEENT: normocephalic, atraumatic, anicteric, mucous membranes moist Respiratory/Chest: lungs clear, no respiratory distress, no accessory muscle use Cardiovascular: normal rate - V pacing , no JVD Abdomen: normal bowel sounds, soft, non tender, non distended Extremities: no edema Neurologic/Psychiatric: alert, oriented x 3, responsive Musculoskeletal: normal muscle bulk Laboratory Tests 11/25/18 20:30: Haptoglobin [Pending], Prothrombin Time 11.8H, Prothromb Time International Ratio 1.1, Fibrinogen 279, Hepatitis A IgM Antibody [Pending], Hepatitis B Surface Antigen [Pending], Hepatitis B Core IgM Antibody [Pending], Hepatitis C Antibody [Pending] Current Medications Medications (Trade) Dose Ordered Sig/Scout Route PRN Reason Start Time Stop Time Status Last Admin Dose Admin Acetaminophen (Tylenol) 650 mg Q4H PRN ORAL Mild Pain (Pain Scale 1-3) 11/18/18 10:15 12/18/18 10:14 11/25/18 17:19 Acetaminophen (Tylenol) 650 mg Q4H PRN ORAL fever 11/18/18 10:15 12/18/18 10:14 Acetaminophen (Tylenol) 650 mg Q4H PRN RECTAL Mild Pain (Pain Scale 1-3) 11/18/18 10:15 12/18/18 10:14 Atorvastatin Calcium (Lipitor) 40 mg BEDTIME ORAL 11/18/18 21:00 12/18/18 20:59 11/25/18 21:33 Bisacodyl (Dulcolax) 10 mg DAILYPRN PRN RECTAL Constipation 11/18/18 10:15 12/18/18 10:14 Carvedilol (Coreg) 12.5 mg EVERY 12 HOURS ORAL 11/21/18 21:00 12/18/18 20:59 11/25/18 21:33 Dextrose (Dextrose 50%) 25 ml Q30M PRN IV Hypoglycemia 11/18/18 10:15 12/18/18 10:14 Dextrose (Dextrose 50%) 50 ml Q30M PRN IV Hypoglycemia 11/18/18 10:15 12/18/18 10:14 Docusate Sodium (Colace) 100 mg EVERY 12 HOURS ORAL 11/18/18 21:00 12/18/18 20:59 11/25/18 21:34 Escitalopram Oxalate (Lexapro) 15 mg DAILY ORAL 11/24/18 09:00 12/24/18 08:59 11/25/18 08:59 Levothyroxine Sodium (Synthroid) 25 mcg Q24H ORAL 11/19/18 06:30 12/19/18 06:29 11/26/18 07:09 Lorazepam (Ativan) 2 mg Q6H PRN ORAL For Anxiety 11/23/18 11:45 11/30/18 11:44 11/24/18 03:41 Magnesium Hydroxide (Mom) 30 ml HSPRN PRN ORAL Constipation 11/18/18 10:15 12/18/18 10:14 Morphine Sulfate (Morphine Sulfate) 2 mg Q4H PRN IVP Moderate Pain (Pain Scale 4-6) 11/20/18 19:00 11/27/18 18:59 11/26/18 02:16 Morphine Sulfate (Morphine Sulfate) 4 mg Q4H PRN IVP Severe Pain (Pain Scale 7-10) 11/20/18 17:30 11/27/18 17:29 11/25/18 22:44 Nitroglycerin (Ntg) 0.4 mg Q5M PRN SL Prn Chest Pain 11/18/18 10:15 12/18/18 10:14 11/20/18 17:57 Ondansetron HCl (Zofran) 4 mg Q6H PRN IVP Nausea & Vomiting 11/18/18 10:15 12/18/18 10:14 11/21/18 21:57 Pantoprazole (Protonix) 40 mg DAILY ORAL 11/19/18 09:00 12/19/18 08:59 11/25/18 08:57 Polyethylene Glycol (Miralax) 17 gm DAILYPRN PRN ORAL Constipation 11/18/18 10:15 12/18/18 10:14 Mary Jo Lyn NP Nov 26, 2018 07:31
[2018-11-26 08:00] VITALS: BP 119/56
[2018-11-26 09:17] LABS: HEMOGLOBIN 8.9 G/DL (14.2-18.0); MEAN CORPUSCULAR VOLUME 76 FL (80-99); PLATELET COUNT 13 K/UL (150-450); RED BLOOD COUNT 3.56 M/UL (4.70-6.10); RED CELL DISTRIBUTION WIDTH 24.4 % (11.6-14.8); WHITE BLOOD COUNT 2.2 K/UL (4.8-10.8)
[2018-11-26] MEDS: Carvedilol 12.5mg tab ORAL SCH ×2 (09:39→20:39)
[2018-11-26] MEDS: Docusate 100mg cap ORAL SCH ×2 (09:39→21:25)
[2018-11-26 09:40] LABS: ALANINE AMINOTRANSFERASE 21 U/L (12-78); ALBUMIN/GLOBULIN RATIO 0.7 (1.0-2.7); ALKALINE PHOSPHATASE 47 U/L (46-116); ANION GAP 5 mmol/L (5-15); ASPARTATE AMINO TRANSFERASE 17 U/L (15-37); BILIRUBIN,TOTAL 1.5 MG/DL (0.2-1.0); BLOOD UREA NITROGEN 18 mg/dL (7-18); CALCIUM 8.7 MG/DL (8.5-10.1); CARBON DIOXIDE 28 MMOL/L (21-32); CHLORIDE 102 MMOL/L (98-107); PHOSPHORUS 2.9 MG/DL (2.5-4.9); POTASSIUM 3.8 MMOL/L (3.5-5.1); SODIUM 135 MMOL/L (136-145)
[2018-11-26 09:41] LABS: BILIRUBIN,DIRECT 0.4 MG/DL (0.0-0.3)
[2018-11-26 12:00] VITALS: BP 122/65
--- NOTE | 2018-11-26 13:25 | General Progress Note ---
Assessment/Plan Assessment/Plan Assessment/Plan Problems: (1) History of CVA (cerebrovascular accident) ICD Codes: Z86.73 - Personal history of transient ischemic attack (TIA), and cerebral infarction without residual deficits SNOMED: 585525302 (2) Severe anemia ICD Codes: D64.9 - Anemia, unspecified SNOMED: 275222000 (3) Abdominal pain ICD Codes: R10.9 - Unspecified abdominal pain SNOMED: 18816534 (4) GERD (gastroesophageal reflux disease) ICD Codes: K21.9 - Gastro-esophageal reflux disease without esophagitis SNOMED: 763241774 Status: unchanged Assessment/Plan Cardiology recommendation reviewed, outpatient stress test Recent history of colonoscopy approximately 1 month ago Thrombocytopenia plan for EGD - may need to hold off until platelets improved on cardiac diet OB stool r/o GI bleed, uncollected. monitor H&H, prn transfusions. 1 unit today bowel regimen ppi fu labs Subjective Allergies: Coded Allergies: No Known Allergies (Verified , 09/12/10) Subjective above noted no abd complaints hungry platelets low d/w RN Objective Last 24 Hour Vital Signs Date Time Temp Pulse Resp B/P (MAP) Pulse Ox O2 Delivery O2 Flow Rate FiO2 11/26/18 12:00 97.0 60 20 122/65 (84) 98 11/26/18 10:50 Nasal Cannula 2.0 11/26/18 09:39 60 119/56 11/26/18 08:00 97.5 60 21 119/56 (77) 98 11/26/18 04:00 60 11/26/18 04:00 98.0 60 18 103/56 (72) 96 11/26/18 00:00 98.0 60 18 112/57 (75) 99 11/25/18 23:52 60 11/25/18 22:42 Nasal Cannula 2.0 28 11/25/18 22:41 98 Nasal Cannula 2.0 28 11/25/18 21:33 63 136/69 11/25/18 21:00 Nasal Cannula 2.0 11/25/18 20:00 98.2 63 18 136/69 (91) 97 11/25/18 19:49 64 11/25/18 17:49 98.0 11/25/18 16:00 63 11/25/18 16:00 98.9 63 17 121/63 (82) 98 Intake and Output 11/25/18 11/26/18 19:00 07:00 Intake Total 250 ml Balance 250 ml IV Total 0 ml Blood Product 250 ml # Voids 1 1 Laboratory Tests 11/25/18 20:30: Haptoglobin [Pending], Prothrombin Time 11.8H, Prothromb Time International Ratio 1.1, Fibrinogen 279, Hepatitis A IgM Antibody [Pending], Hepatitis B Surface Antigen [Pending], Hepatitis B Core IgM Antibody [Pending], Hepatitis C Antibody [Pending] 11/26/18 08:20: White Blood Count 2.2L, Red Blood Count 3.56L, Hemoglobin 8.9L, Hematocrit 27.0L , Mean Corpuscular Volume 76L, Mean Corpuscular Hemoglobin 25.1L, Mean Corpuscular Hemoglobin Concent 33.2, Red Cell Distribution Width 24.4H, Platelet Count 13L, Mean Platelet Volume 4.9L, Neutrophils (%) (Auto) , Lymphocytes (%) (Auto) , Monocytes (%) (Auto) , Eosinophils (%) (Auto) , Basophils (%) (Auto) , Differential Total Cells Counted 100, Neutrophils % ( Manual) 20L, Lymphocytes % (Manual) 65H, Monocytes % (Manual) 15H, Eosinophils % (Manual) 0, Basophils % (Manual) 0, Band Neutrophils 0, Platelet Estimate DecreasedL, Platelet Morphology Normal, Hypochromasia 2+, Anisocytosis 3+, [place] Cells Occasional, Schistocytes Occasional, Sodium Level 135L, Potassium Level 3.8, Chloride Level 102, Carbon Dioxide Level 28, Anion Gap 5, Blood Urea Nitrogen 18, Creatinine 1.0, Estimat Glomerular Filtration Rate , Glucose Level 90, Calcium Level 8.7, Phosphorus Level 2.9, Magnesium Level 2.0, Total Bilirubin 1.5H, Direct Bilirubin 0.4H, Aspartate Amino Transf (AST/SGOT) 17, Alanine Aminotransferase (ALT/SGPT) 21, Alkaline Phosphatase 47, Total Protein 7.1, Albumin 3.0L, Globulin 4.1, Albumin/Globulin Ratio 0.7L Height (Feet): 5 Height (Inches): 6.00 Weight (Pounds): 147 Objective WDWN WM NCAT CTA RR abd soft ND NT no edema non focal Charissa Roman MD Nov 26, 2018 13:25
--- NOTE | 2018-11-26 13:31 | Cardiac Electrophysiology PN ---
Assessment/Plan Assessment/Plan 1. Atypical chest pain and hx of CABG. Likely due to severe anemia. Ruled out [place]. Nuclear stress test cancelled for severe anemia. Will schedule as out patient On Lipitor and Coreg. Off Aspirin and Plavix for anemia and Plt 17 only 2. Cardiomyopathy. EF now 55%. On Coreg 12.5 mg bid. Lisinopril and Lasix held for Azotemia 3. Status post [facility] atrial biventricular defibrillator. Interrogated and showed Nl Fx 4. Severe anemia, S/P PRBC. FU GI. Hb 8.1 today 5. Pancytopenia with Platelet count of 17. Off Aspirin and PLavix Getting platelet transfusion DW RN and Dr. Stock Subjective Subjective Very weak. Getting platelet transfusion. 100% V paced Objective Last 24 Hour Vital Signs Date Time Temp Pulse Resp B/P (MAP) Pulse Ox O2 Delivery O2 Flow Rate FiO2 11/26/18 12:00 97.0 60 20 122/65 (84) 98 11/26/18 10:50 Nasal Cannula 2.0 11/26/18 09:39 60 119/56 11/26/18 08:00 97.5 60 21 119/56 (77) 98 11/26/18 04:00 60 11/26/18 04:00 98.0 60 18 103/56 (72) 96 11/26/18 00:00 98.0 60 18 112/57 (75) 99 11/25/18 23:52 60 11/25/18 22:42 Nasal Cannula 2.0 28 11/25/18 22:41 98 Nasal Cannula 2.0 28 11/25/18 21:33 63 136/69 11/25/18 21:00 Nasal Cannula 2.0 11/25/18 20:00 98.2 63 18 136/69 (91) 97 11/25/18 19:49 64 11/25/18 17:49 98.0 11/25/18 16:00 63 11/25/18 16:00 98.9 63 17 121/63 (82) 98 Intake and Output 11/25/18 11/26/18 19:00 07:00 Intake Total 250 ml Balance 250 ml IV Total 0 ml Blood Product 250 ml # Voids 1 1 Laboratory Tests Test 11/25/18 20:30 11/26/18 08:20 Haptoglobin Pending Prothrombin Time 11.8 SEC (9.30-11.50) H Prothromb Time International Ratio 1.1 (0.9-1.1) Fibrinogen 279 mg/dL (200-400) Hepatitis A IgM Antibody Pending Hepatitis B Surface Antigen Pending Hepatitis B Core IgM Antibody Pending Hepatitis C Antibody Pending White Blood Count 2.2 K/UL (4.8-10.8) L Red Blood Count 3.56 M/UL (4.70-6.10) L Hemoglobin 8.9 G/DL (14.2-18.0) L Hematocrit 27.0 % (42.0-52.0) L Mean Corpuscular Volume 76 FL (80-99) L Mean Corpuscular Hemoglobin 25.1 PG (27.0-31.0) L Mean Corpuscular Hemoglobin Concent 33.2 G/DL (32.0-36.0) Red Cell Distribution Width 24.4 % (11.6-14.8) H Platelet Count 13 K/UL (150-450) L Mean Platelet Volume 4.9 FL (6.5-10.1) L Neutrophils (%) (Auto) % (45.0-75.0) Lymphocytes (%) (Auto) % (20.0-45.0) Monocytes (%) (Auto) % (1.0-10.0) Eosinophils (%) (Auto) % (0.0-3.0) Basophils (%) (Auto) % (0.0-2.0) Differential Total Cells Counted 100 Neutrophils % (Manual) 20 % (45-75) L Lymphocytes % (Manual) 65 % (20-45) H Monocytes % (Manual) 15 % (1-10) H Eosinophils % (Manual) 0 % (0-3) Basophils % (Manual) 0 % (0-2) Band Neutrophils 0 % (0-8) Platelet Estimate Decreased L Platelet Morphology Normal Hypochromasia 2+ Anisocytosis 3+ [place] Cells Occasional Schistocytes Occasional Sodium Level 135 MMOL/L (136-145) L Potassium Level 3.8 MMOL/L (3.5-5.1) Chloride Level 102 MMOL/L (98-107) Carbon Dioxide Level 28 MMOL/L (21-32) Anion Gap 5 mmol/L (5-15) Blood Urea Nitrogen 18 mg/dL (7-18) Creatinine 1.0 MG/DL (0.55-1.30) Estimat Glomerular Filtration Rate mL/min (>60) Glucose Level 90 MG/DL (74-106) Calcium Level 8.7 MG/DL (8.5-10.1) Phosphorus Level 2.9 MG/DL (2.5-4.9) Magnesium Level 2.0 MG/DL (1.8-2.4) Total Bilirubin 1.5 MG/DL (0.2-1.0) H Direct Bilirubin 0.4 MG/DL (0.0-0.3) H Aspartate Amino Transf (AST/SGOT) 17 U/L (15-37) Alanine Aminotransferase (ALT/SGPT) 21 U/L (12-78) Alkaline Phosphatase 47 U/L (46-116) Total Protein 7.1 G/DL (6.4-8.2) Albumin 3.0 G/DL (3.4-5.0) L Globulin 4.1 g/dL Albumin/Globulin Ratio 0.7 (1.0-2.7) L Objective HEAD AND NECK: No JVD. LUNGS: Coarse rhonchi. CARDIOVASCULAR: Regular S1 and S2 with no gallop or murmur. Sternotomy is intact. Defibrillator is in left subclavian. ABDOMEN: Soft. EXTREMITIES: 1+ pitting edema. Satinder Gee MD Nov 26, 2018 13:31
[2018-11-26 16:00] VITALS: BP 132/72
--- NOTE | 2018-11-26 16:52 | Diagnostic Imaging Report ---
EXAM: US Abdomen Complete CLINICAL HISTORY: ABN LABS TECHNIQUE: Real-time ultrasound of the abdomen (complete) with image documentation. COMPARISON: No relevant prior studies available. FINDINGS: Liver: Liver diameter of 12.4 cm. The left lobe is partially obscured by overlying bowel gas. No visible parenchymal lesions. No intrahepatic biliary ductal dilatation. Gallbladder: Surgically absent. Common bile duct: Common bile duct diameter 6.7 mm. Pancreas: Obscured by bowel gas. Kidneys: Right kidney length of 9.8 cm. Left kidney length of 10.1 cm. Normal cortical thickness. No visible stones. No hydronephrosis. Bilateral simple pain renal cortical cysts, including a 1.3 cm cyst in the right upper pole and one CM cyst in the left mid kidney. Spleen: Spleen length of 9.8 cm, within normal limits. Aorta: Obscured by bowel gas. Inferior vena cava: Visualized portions appear unremarkable. IMPRESSION: 1. No acute findings. 2. Status post cholecystectomy. 3. Simple-appearing renal cortical cysts, largest measuring 1.3 cm in the right upper renal pole.
--- NOTE | 2018-11-26 17:40 | Internal Med Progress Note ---
Subjective Date of Service: Nov 26, 2018 Physician Name Nikhil West Attending Physician Abdias Hunter MD Current Medications Medications (Trade) Dose Ordered Sig/Scout Route PRN Reason Start Time Stop Time Status Last Admin Dose Admin Acetaminophen (Tylenol) 650 mg Q4H PRN ORAL Mild Pain (Pain Scale 1-3) 11/18/18 10:15 12/18/18 10:14 11/26/18 17:13 Acetaminophen (Tylenol) 650 mg Q4H PRN ORAL fever 11/18/18 10:15 12/18/18 10:14 Acetaminophen (Tylenol) 650 mg Q4H PRN RECTAL Mild Pain (Pain Scale 1-3) 11/18/18 10:15 12/18/18 10:14 Atorvastatin Calcium (Lipitor) 40 mg BEDTIME ORAL 11/18/18 21:00 12/18/18 20:59 11/25/18 21:33 Bisacodyl (Dulcolax) 10 mg DAILYPRN PRN RECTAL Constipation 11/18/18 10:15 12/18/18 10:14 Carvedilol (Coreg) 12.5 mg EVERY 12 HOURS ORAL 11/21/18 21:00 12/18/18 20:59 11/26/18 09:39 Dextrose (Dextrose 50%) 25 ml Q30M PRN IV Hypoglycemia 11/18/18 10:15 12/18/18 10:14 Dextrose (Dextrose 50%) 50 ml Q30M PRN IV Hypoglycemia 11/18/18 10:15 12/18/18 10:14 Docusate Sodium (Colace) 100 mg EVERY 12 HOURS ORAL 11/18/18 21:00 12/18/18 20:59 11/26/18 09:39 Escitalopram Oxalate (Lexapro) 15 mg DAILY ORAL 11/24/18 09:00 12/24/18 08:59 11/26/18 09:39 Levothyroxine Sodium (Synthroid) 25 mcg Q24H ORAL 11/19/18 06:30 12/19/18 06:29 11/26/18 07:09 Lorazepam (Ativan) 2 mg Q6H PRN ORAL For Anxiety 11/23/18 11:45 11/30/18 11:44 11/24/18 03:41 Magnesium Hydroxide (Mom) 30 ml HSPRN PRN ORAL Constipation 11/18/18 10:15 12/18/18 10:14 Morphine Sulfate (Morphine Sulfate) 2 mg Q4H PRN IVP Moderate Pain (Pain Scale 4-6) 11/26/18 15:00 12/03/18 14:59 Morphine Sulfate (Morphine Sulfate) 4 mg Q4H PRN IVP Severe Pain (Pain Scale 7-10) 11/26/18 13:30 12/03/18 13:29 Nitroglycerin (Ntg) 0.4 mg Q5M PRN SL Prn Chest Pain 11/18/18 10:15 12/18/18 10:14 11/20/18 17:57 Ondansetron HCl (Zofran) 4 mg Q6H PRN IVP Nausea & Vomiting 11/18/18 10:15 12/18/18 10:14 11/21/18 21:57 Pantoprazole (Protonix) 40 mg DAILY ORAL 11/19/18 09:00 12/19/18 08:59 11/26/18 09:38 Polyethylene Glycol (Miralax) 17 gm DAILYPRN PRN ORAL Constipation 11/18/18 10:15 12/18/18 10:14 Allergies: Coded Allergies: No Known Allergies (Verified , 09/12/10) ROS Limited/Unobtainable: No Constitutional: Reports: no symptoms HEENT: Reports: no symptoms Cardiovascular: Reports: no symptoms Respiratory: Reports: no symptoms Gastrointestinal/Abdominal: Reports: no symptoms Genitourinary: Reports: no symptoms Neurologic/Psychiatric: Reports: no symptoms Subjective 78 YO M admitted with chest pain. Cover for Int Joseph-Dr Hunter. Await cardiac nuclear stress test Objective Last Vital Signs Date Time Temp Pulse Resp B/P (MAP) Pulse Ox O2 Delivery O2 Flow Rate FiO2 11/26/18 16:00 60 11/26/18 16:00 97.1 20 132/72 (92) 100 11/26/18 10:50 Nasal Cannula 2.0 11/25/18 22:42 28 Laboratory Tests Test 11/25/18 20:30 11/26/18 08:20 Haptoglobin Pending Prothrombin Time 11.8 SEC (9.30-11.50) H Prothromb Time International Ratio 1.1 (0.9-1.1) Fibrinogen 279 mg/dL (200-400) Hepatitis A IgM Antibody Pending Hepatitis B Surface Antigen Pending Hepatitis B Core IgM Antibody Pending Hepatitis C Antibody Pending White Blood Count 2.2 K/UL (4.8-10.8) L Red Blood Count 3.56 M/UL (4.70-6.10) L Hemoglobin 8.9 G/DL (14.2-18.0) L Hematocrit 27.0 % (42.0-52.0) L Mean Corpuscular Volume 76 FL (80-99) L Mean Corpuscular Hemoglobin 25.1 PG (27.0-31.0) L Mean Corpuscular Hemoglobin Concent 33.2 G/DL (32.0-36.0) Red Cell Distribution Width 24.4 % (11.6-14.8) H Platelet Count 13 K/UL (150-450) L Mean Platelet Volume 4.9 FL (6.5-10.1) L Neutrophils (%) (Auto) % (45.0-75.0) Lymphocytes (%) (Auto) % (20.0-45.0) Monocytes (%) (Auto) % (1.0-10.0) Eosinophils (%) (Auto) % (0.0-3.0) Basophils (%) (Auto) % (0.0-2.0) Differential Total Cells Counted 100 Neutrophils % (Manual) 20 % (45-75) L Lymphocytes % (Manual) 65 % (20-45) H Monocytes % (Manual) 15 % (1-10) H Eosinophils % (Manual) 0 % (0-3) Basophils % (Manual) 0 % (0-2) Band Neutrophils 0 % (0-8) Platelet Estimate Decreased L Platelet Morphology Normal Hypochromasia 2+ Anisocytosis 3+ [place] Cells Occasional Schistocytes Occasional Sodium Level 135 MMOL/L (136-145) L Potassium Level 3.8 MMOL/L (3.5-5.1) Chloride Level 102 MMOL/L (98-107) Carbon Dioxide Level 28 MMOL/L (21-32) Anion Gap 5 mmol/L (5-15) Blood Urea Nitrogen 18 mg/dL (7-18) Creatinine 1.0 MG/DL (0.55-1.30) Estimat Glomerular Filtration Rate mL/min (>60) Glucose Level 90 MG/DL (74-106) Calcium Level 8.7 MG/DL (8.5-10.1) Phosphorus Level 2.9 MG/DL (2.5-4.9) Magnesium Level 2.0 MG/DL (1.8-2.4) Total Bilirubin 1.5 MG/DL (0.2-1.0) H Direct Bilirubin 0.4 MG/DL (0.0-0.3) H Aspartate Amino Transf (AST/SGOT) 17 U/L (15-37) Alanine Aminotransferase (ALT/SGPT) 21 U/L (12-78) Alkaline Phosphatase 47 U/L (46-116) Total Protein 7.1 G/DL (6.4-8.2) Albumin 3.0 G/DL (3.4-5.0) L Globulin 4.1 g/dL Albumin/Globulin Ratio 0.7 (1.0-2.7) L Intake and Output 11/25/18 11/26/18 19:00 07:00 Intake Total 250 ml Balance 250 ml IV Total 0 ml Blood Product 250 ml # Voids 1 1 Objective PHYSICAL EXAMINATION: GENERAL: The patient awake, responsive, no acute distress. HEAD AND NECK: Pupils are equal and reactive to light. Extraocular movements are intact. Neck was supple. No JVD LUNGS: Good air entry. No wheeze or rales. HEART: S1, S2. Distant heart sounds. No murmur or gallops. Pacemaker in left-sided chest wall. ABDOMEN: Soft, nondistended, nontender. EXTREMITIES: No cyanosis, clubbing, edema. Varicose veins, bilateral lower extremities. NEUROLOGIC: Cranial nerves II through XII grossly intact. Motor is 5/5 in all extremities. Gait is intact. RECTAL: Refused and deferred. GENITOURINARY: Refused and deferred. PSYCHIATRIC: Mood and affect is depressed. Assessment/Plan Assessment/Plan ASSESSMENT: 1. Chest pain, possible acute coronary syndrome. 2. Hypertension. 3. Dyslipidemia. 4. Congestive heart failure. 5. Coronary artery disease. 6. Sick sinus syndrome, status pacemaker. 7. UTI. 8. Pancytopenia-Severe anemia, Thrombocytopenia and leukopenia PLAN: Admit the patient to telemetry. Discussed case with Dr. Gee from Cardiology Electrophysiology. Await cardiac nuclear stress test Dr. Luong, Pulmonary Critical Care. Urine cult=E. Coli. Continue Rocephin. DVT prophylaxis, heparin subcutaneous. Code status, Full Code. The patient is expected to be in the hospital greater than 2 days Discharge paln: [facility] acute [facility] S/P transfusion 2 units PRBC on 11/19/18 See Hematology consult Nikhil West MD Nov 26, 2018 17:40
[2018-11-26 20:00] VITALS: BP 102/57
[2018-11-26] MEDS: Atorvastatin 20mg tab ORAL SCH (21:25)
[2018-11-26] MEDS: Morphine Sulfate 4mg/ml Inj (IV USE ONLY) IVP PRN (23:22)
[2018-11-27] VITALS: BP 144/67
[2018-11-27] MEDS: Morphine Sulfate 4mg/ml Inj (IV USE ONLY) IVP PRN (03:50)
[2018-11-27 04:00] VITALS: BP 171/77
[2018-11-27] MEDS: Levothyroxine 25mcg tab ORAL SCH (06:05)
[2018-11-27 07:50] LABS: HEMATOCRIT 30.4 % (42.0-52.0); HEMOGLOBIN 9.8 G/DL (14.2-18.0); MEAN CORPUSCULAR VOLUME 77 FL (80-99); PLATELET COUNT 66 K/UL (150-450); RED BLOOD COUNT 3.94 M/UL (4.70-6.10); RED CELL DISTRIBUTION WIDTH 24.5 % (11.6-14.8); WHITE BLOOD COUNT 2.9 K/UL (4.8-10.8)
[2018-11-27 07:55] LABS: ANION GAP 4 mmol/L (5-15); BLOOD UREA NITROGEN 21 mg/dL (7-18); CALCIUM 9.1 MG/DL (8.5-10.1); CARBON DIOXIDE 30 MMOL/L (21-32); CHLORIDE 101 MMOL/L (98-107); CREATININE 1.1 MG/DL (0.55-1.30); POTASSIUM 3.9 MMOL/L (3.5-5.1); SODIUM 134 MMOL/L (136-145)
[2018-11-27 08:00] VITALS: BP 109/57
--- NOTE | 2018-11-27 09:08 | Pulmonology Progress Note ---
Assessment/Plan Assessment/Plan ASSESSMENT. atypical CP, likely due to severe anemia HTN CHF CAD with hx of CABG Severe pulmonary HTN AICD,s/p interrogation Hx of CM, ( now stable EF) Dyslipidemia E. coli UTI. Pancytopenia with severe anemia and thrombocytopenia MDD Anxiety disorder PLAN OF CARE tele O2 HHN prn serial troponin negative, EKG revealed no acute ischemic changes patient was ruled out for acute [place] Echo revealed pEF of 55% 55-60% , no evidence of LVH, normal left ventricular chamber size, systolic function function and wall motion to the extent visualized, moderately elevated left atrial pressure grade 2. Right ventricular systolic pressure of 61 c/w severe pulmonary hypertension nuclear stress test revealed old anterior wall perfusion defect c/w area of reversible ischemia seen on prior study on 05/18/2016 cardio follows off ASA and Plavix secondary to severe anemia and thrombocytopenia continue BB , off Lisinopril and Lasix due to azotemia [place] atrial biventricular defibrillator was interrogated and showed normal functioning pain management HH closely monitored with goal to keep Hgb above 7 , s/p 3 u PRBC senior sourcing manager follows anemia workup revealed stable iron ,B12 and folate level. PLT down to 13 on 11/26 , discussed with senior sourcing manager , s/p 1 unit of plateletpheresis. today PLT count up to 66 HIV nonreactive, hep panel negative patient may likely need bone marrow biopsy if no other causes will be identified - per heme recs urine culture+ E. coli ,abx psychiatric medication regimen as per psychiatrist transfer to [place] floor - if OK with cardio case discussed and evaluated by supervising physician Subjective Allergies: Coded Allergies: No Known Allergies (Verified , 09/12/10) Subjective on O2 via NC pulse ox stable no SOB denies chest pain, palpitations s/p PLT tx, PLT up to 66 Objective Last 24 Hour Vital Signs Date Time Temp Pulse Resp B/P (MAP) Pulse Ox O2 Delivery O2 Flow Rate FiO2 11/27/18 04:00 62 11/27/18 04:00 98.0 73 18 171/77 (108) 99 11/27/18 00:00 60 11/27/18 00:00 98.1 62 18 144/67 (92) 98 11/26/18 21:00 Nasal Cannula 2.0 11/26/18 20:39 61 102/57 11/26/18 20:35 Nasal Cannula 2.0 28 11/26/18 20:35 97 Nasal Cannula 2.0 28 11/26/18 20:00 60 11/26/18 20:00 97.3 61 18 102/57 (72) 97 11/26/18 17:43 97.1 11/26/18 16:00 60 11/26/18 16:00 97.1 60 20 132/72 (92) 100 11/26/18 12:00 97.0 60 20 122/65 (84) 98 11/26/18 12:00 63 11/26/18 10:50 Nasal Cannula 2.0 11/26/18 09:39 60 119/56 Intake and Output 11/26/18 11/27/18 18:59 06:59 Intake Total 200 ml Balance 200 ml Blood Product 200 ml Objective General Appearance: no acute distress, other - awake, alert, pale HEENT: normocephalic, atraumatic, anicteric, mucous membranes moist Respiratory/Chest: lungs clear, no respiratory distress, no accessory muscle use Cardiovascular: normal rate - V pacing , no JVD Abdomen: normal bowel sounds, soft, non tender, non distended Extremities: no edema Neurologic/Psychiatric: alert, oriented x 3, responsive Musculoskeletal: normal muscle bulk Laboratory Tests 11/27/18 06:36: White Blood Count 2.9L, Red Blood Count 3.94L, Hemoglobin 9.8L, Hematocrit 30.4L , Mean Corpuscular Volume 77L, Mean Corpuscular Hemoglobin 24.8L, Mean Corpuscular Hemoglobin Concent 32.0, Red Cell Distribution Width 24.5H, Platelet Count 66#L, Mean Platelet Volume 8.2, Neutrophils (%) (Auto) , Lymphocytes (%) (Auto) , Monocytes (%) (Auto) , Eosinophils (%) (Auto) , Basophils (%) (Auto) , Differential Total Cells Counted 100, Neutrophils % ( Manual) 33L, Lymphocytes % (Manual) 53H, Monocytes % (Manual) 9, Eosinophils % ( Manual) 5H, Basophils % (Manual) 0, Band Neutrophils 0, Platelet Estimate DecreasedL, Platelet Morphology Normal, Hypochromasia 1+, Anisocytosis 2+, Schistocytes Rare, Sodium Level 134L, Potassium Level 3.9, Chloride Level 101, Carbon Dioxide Level 30, Anion Gap 4L, Blood Urea Nitrogen 21H, Creatinine 1.1, Estimat Glomerular Filtration Rate , Glucose Level 79, Calcium Level 9.1 Current Medications Medications (Trade) Dose Ordered Sig/Scout Route PRN Reason Start Time Stop Time Status Last Admin Dose Admin Acetaminophen (Tylenol) 650 mg Q4H PRN ORAL Mild Pain (Pain Scale 1-3) 11/18/18 10:15 12/18/18 10:14 11/26/18 17:13 Acetaminophen (Tylenol) 650 mg Q4H PRN ORAL fever 11/18/18 10:15 12/18/18 10:14 Acetaminophen (Tylenol) 650 mg Q4H PRN RECTAL Mild Pain (Pain Scale 1-3) 11/18/18 10:15 12/18/18 10:14 Atorvastatin Calcium (Lipitor) 40 mg BEDTIME ORAL 11/18/18 21:00 12/18/18 20:59 11/26/18 21:25 Bisacodyl (Dulcolax) 10 mg DAILYPRN PRN RECTAL Constipation 11/18/18 10:15 12/18/18 10:14 Carvedilol (Coreg) 12.5 mg EVERY 12 HOURS ORAL 11/21/18 21:00 12/18/18 20:59 11/26/18 09:39 Dextrose (Dextrose 50%) 25 ml Q30M PRN IV Hypoglycemia 11/18/18 10:15 12/18/18 10:14 Dextrose (Dextrose 50%) 50 ml Q30M PRN IV Hypoglycemia 11/18/18 10:15 12/18/18 10:14 Docusate Sodium (Colace) 100 mg EVERY 12 HOURS ORAL 11/18/18 21:00 12/18/18 20:59 11/26/18 21:25 Escitalopram Oxalate (Lexapro) 15 mg DAILY ORAL 11/24/18 09:00 12/24/18 08:59 11/26/18 09:39 Levothyroxine Sodium (Synthroid) 25 mcg Q24H ORAL 11/19/18 06:30 12/19/18 06:29 11/27/18 06:05 Lorazepam (Ativan) 2 mg Q6H PRN ORAL For Anxiety 11/23/18 11:45 11/30/18 11:44 11/24/18 03:41 Magnesium Hydroxide (Mom) 30 ml HSPRN PRN ORAL Constipation 11/18/18 10:15 12/18/18 10:14 Morphine Sulfate (Morphine Sulfate) 2 mg Q4H PRN IVP Moderate Pain (Pain Scale 4-6) 11/26/18 15:00 12/03/18 14:59 Morphine Sulfate (Morphine Sulfate) 4 mg Q4H PRN IVP Severe Pain (Pain Scale 7-10) 11/26/18 13:30 12/03/18 13:29 11/27/18 03:50 Nitroglycerin (Ntg) 0.4 mg Q5M PRN SL Prn Chest Pain 11/18/18 10:15 12/18/18 10:14 11/20/18 17:57 Ondansetron HCl (Zofran) 4 mg Q6H PRN IVP Nausea & Vomiting 11/18/18 10:15 12/18/18 10:14 11/21/18 21:57 Pantoprazole (Protonix) 40 mg DAILY ORAL 11/19/18 09:00 12/19/18 08:59 11/26/18 09:38 Polyethylene Glycol (Miralax) 17 gm DAILYPRN PRN ORAL Constipation 11/18/18 10:15 12/18/18 10:14 Mary Jo Lyn NP Nov 27, 2018 09:08
[2018-11-27] MEDS: Carvedilol 12.5mg tab ORAL SCH ×2 (09:29→21:21)
[2018-11-27] MEDS: Docusate 100mg cap ORAL SCH ×2 (09:29→21:00)
[2018-11-27 12:00] VITALS: BP 109/53
[2018-11-27] MEDS: Morphine Sulfate 2mg/ml Inj(IV/IM USE ONLY) IVP PRN ×2 (14:03→18:14)
--- NOTE | 2018-11-27 15:10 | General Progress Note ---
Assessment/Plan Assessment/Plan Assessment/Plan Problems: (1) History of CVA (cerebrovascular accident) ICD Codes: Z86.73 - Personal history of transient ischemic attack (TIA), and cerebral infarction without residual deficits SNOMED: 458119301 (2) Severe anemia ICD Codes: D64.9 - Anemia, unspecified SNOMED: 869888045 (3) Abdominal pain ICD Codes: R10.9 - Unspecified abdominal pain SNOMED: 13827264 (4) GERD (gastroesophageal reflux disease) ICD Codes: K21.9 - Gastro-esophageal reflux disease without esophagitis SNOMED: 726090698 Status: unchanged Assessment/Plan Cardiology recommendation reviewed, outpatient stress test Recent history of colonoscopy approximately 1 month ago Thrombocytopenia plan for EGD - may need to hold off until platelets improved on cardiac diet OB stool r/o GI bleed, uncollected. monitor H&H, prn transfusions. 1 unit today bowel regimen ppi fu labs Subjective Allergies: Coded Allergies: No Known Allergies (Verified , 09/12/10) Subjective above noted no abd complaints hungry platelets low d/w RN Objective Last 24 Hour Vital Signs Date Time Temp Pulse Resp B/P (MAP) Pulse Ox O2 Delivery O2 Flow Rate FiO2 11/27/18 12:00 98.2 62 20 109/53 (71) 97 11/27/18 12:00 64 11/27/18 09:40 98 Nasal Cannula 2.0 28 11/27/18 09:40 Nasal Cannula 2.0 28 11/27/18 09:29 66 109/57 11/27/18 09:00 Nasal Cannula 2.0 11/27/18 08:00 69 11/27/18 08:00 98.2 66 20 109/57 (74) 99 11/27/18 04:00 62 11/27/18 04:00 98.0 73 18 171/77 (108) 99 11/27/18 00:00 60 11/27/18 00:00 98.1 62 18 144/67 (92) 98 11/26/18 21:00 Nasal Cannula 2.0 11/26/18 20:39 61 102/57 11/26/18 20:35 Nasal Cannula 2.0 28 11/26/18 20:35 97 Nasal Cannula 2.0 28 11/26/18 20:00 60 11/26/18 20:00 97.3 61 18 102/57 (72) 97 11/26/18 17:43 97.1 11/26/18 16:00 60 11/26/18 16:00 97.1 60 20 132/72 (92) 100 Intake and Output 11/26/18 11/27/18 18:59 06:59 Intake Total 200 ml Balance 200 ml Blood Product 200 ml Laboratory Tests 11/27/18 06:36: White Blood Count 2.9L, Red Blood Count 3.94L, Hemoglobin 9.8L, Hematocrit 30.4L , Mean Corpuscular Volume 77L, Mean Corpuscular Hemoglobin 24.8L, Mean Corpuscular Hemoglobin Concent 32.0, Red Cell Distribution Width 24.5H, Platelet Count 66#L, Mean Platelet Volume 8.2, Neutrophils (%) (Auto) , Lymphocytes (%) (Auto) , Monocytes (%) (Auto) , Eosinophils (%) (Auto) , Basophils (%) (Auto) , Differential Total Cells Counted 100, Neutrophils % ( Manual) 33L, Lymphocytes % (Manual) 53H, Monocytes % (Manual) 9, Eosinophils % ( Manual) 5H, Basophils % (Manual) 0, Band Neutrophils 0, Platelet Estimate DecreasedL, Platelet Morphology Normal, Hypochromasia 1+, Anisocytosis 2+, Schistocytes Rare, Sodium Level 134L, Potassium Level 3.9, Chloride Level 101, Carbon Dioxide Level 30, Anion Gap 4L, Blood Urea Nitrogen 21H, Creatinine 1.1, Estimat Glomerular Filtration Rate , Glucose Level 79, Calcium Level 9.1 Height (Feet): 5 Height (Inches): 6.00 Weight (Pounds): 157 Objective WDWN WM NCAT CTA RR abd soft ND NT no edema non focal Charissa Roman MD Nov 27, 2018 15:10
--- NOTE | 2018-11-27 15:37 | Cardiac Electrophysiology PN ---
Assessment/Plan Assessment/Plan 1. Atypical chest pain and hx of CABG. Likely due to severe anemia. Ruled out OK. Nuclear stress test cancelled for severe anemia. Will schedule as out patient after pancytopenia is resolved On Lipitor and Coreg. Off Aspirin and Plavix for anemia and Plt 17 only 2. Cardiomyopathy. EF now 55%. On Coreg 12.5 mg bid. Lisinopril and Lasix held for Azotemia 3. Status post [facility] atrial biventricular defibrillator. Interrogated and showed Nl Fx 4. Severe anemia, S/P PRBC. FU GI. Hb 8.1 today 5. Pancytopenia with Platelet count of 17. Off Aspirin and PLavix S/P platelet transfusion. Platelet 66 DW RN Subjective Subjective Very weak.Had platelet transfusion. 100% V paced Objective Last 24 Hour Vital Signs Date Time Temp Pulse Resp B/P (MAP) Pulse Ox O2 Delivery O2 Flow Rate FiO2 11/27/18 14:33 98.2 11/27/18 12:00 98.2 62 20 109/53 (71) 97 11/27/18 12:00 64 11/27/18 09:40 98 Nasal Cannula 2.0 28 11/27/18 09:40 Nasal Cannula 2.0 28 11/27/18 09:29 66 109/57 11/27/18 09:00 Nasal Cannula 2.0 11/27/18 08:00 69 11/27/18 08:00 98.2 66 20 109/57 (74) 99 11/27/18 04:00 62 11/27/18 04:00 98.0 73 18 171/77 (108) 99 11/27/18 00:00 60 11/27/18 00:00 98.1 62 18 144/67 (92) 98 11/26/18 21:00 Nasal Cannula 2.0 11/26/18 20:39 61 102/57 11/26/18 20:35 Nasal Cannula 2.0 28 11/26/18 20:35 97 Nasal Cannula 2.0 28 11/26/18 20:00 60 11/26/18 20:00 97.3 61 18 102/57 (72) 97 11/26/18 17:43 97.1 11/26/18 16:00 60 11/26/18 16:00 97.1 60 20 132/72 (92) 100 Intake and Output 11/26/18 11/27/18 18:59 06:59 Intake Total 200 ml Balance 200 ml Blood Product 200 ml Laboratory Tests Test 11/27/18 06:36 White Blood Count 2.9 K/UL (4.8-10.8) L Red Blood Count 3.94 M/UL (4.70-6.10) L Hemoglobin 9.8 G/DL (14.2-18.0) L Hematocrit 30.4 % (42.0-52.0) L Mean Corpuscular Volume 77 FL (80-99) L Mean Corpuscular Hemoglobin 24.8 PG (27.0-31.0) L Mean Corpuscular Hemoglobin Concent 32.0 G/DL (32.0-36.0) Red Cell Distribution Width 24.5 % (11.6-14.8) H Platelet Count 66 K/UL (150-450) #L Mean Platelet Volume 8.2 FL (6.5-10.1) Neutrophils (%) (Auto) % (45.0-75.0) Lymphocytes (%) (Auto) % (20.0-45.0) Monocytes (%) (Auto) % (1.0-10.0) Eosinophils (%) (Auto) % (0.0-3.0) Basophils (%) (Auto) % (0.0-2.0) Differential Total Cells Counted 100 Neutrophils % (Manual) 33 % (45-75) L Lymphocytes % (Manual) 53 % (20-45) H Monocytes % (Manual) 9 % (1-10) Eosinophils % (Manual) 5 % (0-3) H Basophils % (Manual) 0 % (0-2) Band Neutrophils 0 % (0-8) Platelet Estimate Decreased L Platelet Morphology Normal Hypochromasia 1+ Anisocytosis 2+ Schistocytes Rare Sodium Level 134 MMOL/L (136-145) L Potassium Level 3.9 MMOL/L (3.5-5.1) Chloride Level 101 MMOL/L (98-107) Carbon Dioxide Level 30 MMOL/L (21-32) Anion Gap 4 mmol/L (5-15) L Blood Urea Nitrogen 21 mg/dL (7-18) H Creatinine 1.1 MG/DL (0.55-1.30) Estimat Glomerular Filtration Rate mL/min (>60) Glucose Level 79 MG/DL (74-106) Calcium Level 9.1 MG/DL (8.5-10.1) Objective HEAD AND NECK: No JVD. LUNGS: Coarse rhonchi. CARDIOVASCULAR: Regular S1 and S2 with no gallop or murmur. Sternotomy is intact. Defibrillator is in left subclavian. ABDOMEN: Soft. EXTREMITIES: 1+ pitting edema. Satinder Gee MD Nov 27, 2018 15:37
[2018-11-27 16:00] VITALS: BP 111/53
--- NOTE | 2018-11-27 18:23 | Internal Med Progress Note ---
Subjective Date of Service: Nov 27, 2018 Physician Name Nikhil West Attending Physician Abdias Hunter MD Current Medications Medications (Trade) Dose Ordered Sig/Scout Route PRN Reason Start Time Stop Time Status Last Admin Dose Admin Acetaminophen (Tylenol) 650 mg Q4H PRN ORAL Mild Pain (Pain Scale 1-3) 11/18/18 10:15 12/18/18 10:14 11/26/18 17:13 Acetaminophen (Tylenol) 650 mg Q4H PRN ORAL fever 11/18/18 10:15 12/18/18 10:14 Acetaminophen (Tylenol) 650 mg Q4H PRN RECTAL Mild Pain (Pain Scale 1-3) 11/18/18 10:15 12/18/18 10:14 Atorvastatin Calcium (Lipitor) 40 mg BEDTIME ORAL 11/18/18 21:00 12/18/18 20:59 11/26/18 21:25 Bisacodyl (Dulcolax) 10 mg DAILYPRN PRN RECTAL Constipation 11/18/18 10:15 12/18/18 10:14 Carvedilol (Coreg) 12.5 mg EVERY 12 HOURS ORAL 11/21/18 21:00 12/18/18 20:59 11/27/18 09:29 Dextrose (Dextrose 50%) 25 ml Q30M PRN IV Hypoglycemia 11/18/18 10:15 12/18/18 10:14 Dextrose (Dextrose 50%) 50 ml Q30M PRN IV Hypoglycemia 11/18/18 10:15 12/18/18 10:14 Docusate Sodium (Colace) 100 mg EVERY 12 HOURS ORAL 11/18/18 21:00 12/18/18 20:59 11/27/18 09:29 Escitalopram Oxalate (Lexapro) 15 mg DAILY ORAL 11/24/18 09:00 12/24/18 08:59 11/27/18 09:29 Levothyroxine Sodium (Synthroid) 25 mcg Q24H ORAL 11/19/18 06:30 12/19/18 06:29 11/27/18 06:05 Lorazepam (Ativan) 2 mg Q6H PRN ORAL For Anxiety 11/23/18 11:45 11/30/18 11:44 11/24/18 03:41 Magnesium Hydroxide (Mom) 30 ml HSPRN PRN ORAL Constipation 11/18/18 10:15 12/18/18 10:14 Morphine Sulfate (Morphine Sulfate) 2 mg Q4H PRN IVP Moderate Pain (Pain Scale 4-6) 11/26/18 15:00 12/03/18 14:59 11/27/18 18:14 Morphine Sulfate (Morphine Sulfate) 4 mg Q4H PRN IVP Severe Pain (Pain Scale 7-10) 11/26/18 13:30 12/03/18 13:29 11/27/18 03:50 Nitroglycerin (Ntg) 0.4 mg Q5M PRN SL Prn Chest Pain 11/18/18 10:15 12/18/18 10:14 11/20/18 17:57 Ondansetron HCl (Zofran) 4 mg Q6H PRN IVP Nausea & Vomiting 11/18/18 10:15 12/18/18 10:14 11/21/18 21:57 Pantoprazole (Protonix) 40 mg DAILY ORAL 11/19/18 09:00 12/19/18 08:59 11/27/18 09:29 Polyethylene Glycol (Miralax) 17 gm DAILYPRN PRN ORAL Constipation 11/18/18 10:15 12/18/18 10:14 Allergies: Coded Allergies: No Known Allergies (Verified , 09/12/10) ROS Limited/Unobtainable: No Constitutional: Reports: no symptoms HEENT: Reports: no symptoms Cardiovascular: Reports: no symptoms Respiratory: Reports: no symptoms Gastrointestinal/Abdominal: Reports: no symptoms Genitourinary: Reports: no symptoms Neurologic/Psychiatric: Reports: no symptoms Subjective 78 YO M admitted with chest pain. Cover for Int Joseph-Dr Hunter. Await cardiac nuclear stress test Objective Last Vital Signs Date Time Temp Pulse Resp B/P (MAP) Pulse Ox O2 Delivery O2 Flow Rate FiO2 11/27/18 16:00 98.3 66 20 111/53 (72) 97 11/27/18 09:40 Nasal Cannula 2.0 28 Laboratory Tests Test 11/27/18 06:36 White Blood Count 2.9 K/UL (4.8-10.8) L Red Blood Count 3.94 M/UL (4.70-6.10) L Hemoglobin 9.8 G/DL (14.2-18.0) L Hematocrit 30.4 % (42.0-52.0) L Mean Corpuscular Volume 77 FL (80-99) L Mean Corpuscular Hemoglobin 24.8 PG (27.0-31.0) L Mean Corpuscular Hemoglobin Concent 32.0 G/DL (32.0-36.0) Red Cell Distribution Width 24.5 % (11.6-14.8) H Platelet Count 66 K/UL (150-450) #L Mean Platelet Volume 8.2 FL (6.5-10.1) Neutrophils (%) (Auto) % (45.0-75.0) Lymphocytes (%) (Auto) % (20.0-45.0) Monocytes (%) (Auto) % (1.0-10.0) Eosinophils (%) (Auto) % (0.0-3.0) Basophils (%) (Auto) % (0.0-2.0) Differential Total Cells Counted 100 Neutrophils % (Manual) 33 % (45-75) L Lymphocytes % (Manual) 53 % (20-45) H Monocytes % (Manual) 9 % (1-10) Eosinophils % (Manual) 5 % (0-3) H Basophils % (Manual) 0 % (0-2) Band Neutrophils 0 % (0-8) Platelet Estimate Decreased L Platelet Morphology Normal Hypochromasia 1+ Anisocytosis 2+ Schistocytes Rare Sodium Level 134 MMOL/L (136-145) L Potassium Level 3.9 MMOL/L (3.5-5.1) Chloride Level 101 MMOL/L (98-107) Carbon Dioxide Level 30 MMOL/L (21-32) Anion Gap 4 mmol/L (5-15) L Blood Urea Nitrogen 21 mg/dL (7-18) H Creatinine 1.1 MG/DL (0.55-1.30) Estimat Glomerular Filtration Rate mL/min (>60) Glucose Level 79 MG/DL (74-106) Calcium Level 9.1 MG/DL (8.5-10.1) Intake and Output 11/26/18 11/27/18 19:00 07:00 Intake Total 200 ml Balance 200 ml Blood Product 200 ml Objective PHYSICAL EXAMINATION: GENERAL: The patient awake, responsive, no acute distress. HEAD AND NECK: Pupils are equal and reactive to light. Extraocular movements are intact. Neck was supple. No JVD LUNGS: Good air entry. No wheeze or rales. HEART: S1, S2. Distant heart sounds. No murmur or gallops. Pacemaker in left-sided chest wall. ABDOMEN: Soft, nondistended, nontender. EXTREMITIES: No cyanosis, clubbing, edema. Varicose veins, bilateral lower extremities. NEUROLOGIC: Cranial nerves II through XII grossly intact. Motor is 5/5 in all extremities. Gait is intact. RECTAL: Refused and deferred. GENITOURINARY: Refused and deferred. PSYCHIATRIC: Mood and affect is depressed. Assessment/Plan Assessment/Plan ASSESSMENT: 1. Chest pain, possible acute coronary syndrome. 2. Hypertension. 3. Dyslipidemia. 4. Congestive heart failure. 5. Coronary artery disease. 6. Sick sinus syndrome, status pacemaker. 7. UTI. 8. Pancytopenia-Severe anemia, Thrombocytopenia and leukopenia PLAN: Admit the patient to telemetry. Discussed case with Dr. Gee from Cardiology Electrophysiology. Await cardiac nuclear stress test Dr. Luong, Pulmonary Critical Care. Urine cult=E. Coli. Continue Rocephin. DVT prophylaxis, heparin subcutaneous. Code status, Full Code. The patient is expected to be in the hospital greater than 2 days Discharge paln: [facility] S/P transfusion 2 units PRBC on 11/19/18 See Hematology consult Nikhil West MD Nov 27, 2018 18:23
--- NOTE | 2018-11-27 19:46 | General Progress Note ---
Assessment/Plan Assessment/Plan # Severe Pancytopenia -- multiple etiologies could be related to underlying liver disease, medication-induced, infection versus viral syndrome, us reviewed no significant liver disease though is noted, on liptior and other meds reviewed --> peripheral smear has been ordered and does not show significant abnormalities --> Continue to monitor for improvement, trend cbc --> Hep panel and HIV have been ordered pending --> US abd ordered to r/o cirrhosis and hsm and is negative for those --> consider other causes, infections that could contribute --> reverse isolation if ANC is <2000 --> Give neupogen if ANC <1000 --> Transfuse if hgb <7, with 1 unit prbc --> consider bone marrow biopsy if no other causes are found --> medications have been reviewed as well --> either outpatient stress test per cards # Anemia of chronic disease, some minor hemolysis is noted --> Anemia workup has been ordered/reviewed, and pending TONY test, retic, ldh --> Hgb goal >7. Transfuse prn. --> Epogen or iron at this time is not particularly indicated --> Medications have been reviewed # Reticulcytosis with elevated bilirubin that is indirect --> obtain direct and indirect bilis again --> evaluate for liver disease with hep US --> evaluate as needed with gi team, recs apprecaited #. Chest pain, possible acute coronary syndrome. --> cards recs appreciated as well as pulm --> stress test prn #. Hypertension. #. Dyslipidemia. #. Congestive heart failure. #. Coronary artery disease. #. Sick sinus syndrome, status pacemaker. #. Acute E. coli UTI. The timing of this note does not necessarily reflect the time of the patient was seen. Greatly appreciate consultation! Subjective Constitutional: Denies: no symptoms, chills, diaphoresis, fever, malaise, weakness, other Cardiovascular: Denies: no symptoms, chest pain, edema, irregular heart rate, lightheadedness, palpitations, syncope, other Respiratory: Denies: no symptoms, cough, orthopnea, shortness of breath, SOB with excertion, SOB at rest, sputum, stridor, wheezing, other Gastrointestinal/Abdominal: Denies: no symptoms, abdomen distended, abdominal pain, black stools, tarry stools, blood in stool, constipated, diarrhea, difficulty swallowing, nausea, poor appetite, poor fluid intake, rectal bleeding , vomiting, other Neurologic/Psychiatric: Denies: no symptoms, anxiety, depressed, emotional problems, headache, numbness, paresthesia, pre-existing deficit, seizure, tingling, tremors, weakness, other Endocrine: Denies: no symptoms, excessive sweating, flushing, intolerance to cold, intolerance to heat, increased hunger, increased thirst, increased urine, unexplained weight gain, unexplained weight loss, other Hematologic/Lymphatic: Reports: no symptoms, anemia, easy bleeding, easy bruising, other Allergies: Coded Allergies: No Known Allergies (Verified , 09/12/10) Subjective 11/27: no events to report, no f/c Objective Last 24 Hour Vital Signs Date Time Temp Pulse Resp B/P (MAP) Pulse Ox O2 Delivery O2 Flow Rate FiO2 11/27/18 18:44 98.3 11/27/18 16:00 98.3 66 20 111/53 (72) 97 11/27/18 16:00 65 11/27/18 12:00 98.2 62 20 109/53 (71) 97 11/27/18 12:00 64 11/27/18 09:40 98 Nasal Cannula 2.0 28 11/27/18 09:40 Nasal Cannula 2.0 28 11/27/18 09:29 66 109/57 11/27/18 09:00 Nasal Cannula 2.0 11/27/18 08:00 69 11/27/18 08:00 98.2 66 20 109/57 (74) 99 11/27/18 04:00 62 11/27/18 04:00 98.0 73 18 171/77 (108) 99 11/27/18 00:00 60 11/27/18 00:00 98.1 62 18 144/67 (92) 98 11/26/18 21:00 Nasal Cannula 2.0 11/26/18 20:39 61 102/57 11/26/18 20:35 Nasal Cannula 2.0 28 11/26/18 20:35 97 Nasal Cannula 2.0 28 11/26/18 20:00 60 11/26/18 20:00 97.3 61 18 102/57 (72) 97 Intake and Output 11/26/18 11/27/18 19:00 07:00 Intake Total 200 ml Balance 200 ml Blood Product 200 ml Laboratory Tests 11/27/18 06:36: White Blood Count 2.9L, Red Blood Count 3.94L, Hemoglobin 9.8L, Hematocrit 30.4L , Mean Corpuscular Volume 77L, Mean Corpuscular Hemoglobin 24.8L, Mean Corpuscular Hemoglobin Concent 32.0, Red Cell Distribution Width 24.5H, Platelet Count 66#L, Mean Platelet Volume 8.2, Neutrophils (%) (Auto) , Lymphocytes (%) (Auto) , Monocytes (%) (Auto) , Eosinophils (%) (Auto) , Basophils (%) (Auto) , Differential Total Cells Counted 100, Neutrophils % ( Manual) 33L, Lymphocytes % (Manual) 53H, Monocytes % (Manual) 9, Eosinophils % ( Manual) 5H, Basophils % (Manual) 0, Band Neutrophils 0, Platelet Estimate DecreasedL, Platelet Morphology Normal, Hypochromasia 1+, Anisocytosis 2+, Schistocytes Rare, Sodium Level 134L, Potassium Level 3.9, Chloride Level 101, Carbon Dioxide Level 30, Anion Gap 4L, Blood Urea Nitrogen 21H, Creatinine 1.1, Estimat Glomerular Filtration Rate , Glucose Level 79, Calcium Level 9.1 Height (Feet): 5 Height (Inches): 6.00 Weight (Pounds): 157 EENT: normal ENT inspection Neck: supple Cardiovascular: regular rhythm Respiratory/Chest: normal breath sounds Abdomen: soft, abnormal bowel sounds Neurologic: alert Objective Sp02 EP: reviewed, normal General Appearance: well appearing, nad, alert Head: normocephalic, atraumatic Eyes: b/l eye PERRL, bilateral eye EOMI ENT: hearing grossly normal, normal pharynx Neck: full range of motion, supple, no meningismus Respiratory: chest non-tender, lungs clear, normal breath sounds Cardiovascular: regular rate, rhythm, no murmur Gastrointestinal: normal bowel sounds, non tender, no mass, no organomegaly, no bruit, non-distended Musculoskeletal: back normal, gait/station normal, normal range of motion Psychiatric: mood/affect normal Skin: warm/dry Jose Alberto España MD Nov 27, 2018 19:46
[2018-11-27 20:00] VITALS: BP 122/64
[2018-11-27] MEDS: Atorvastatin 20mg tab ORAL SCH (21:21)
[2018-11-28] VITALS: BP 126/65
[2018-11-28 04:00] VITALS: BP 108/57
[2018-11-28] MEDS: Levothyroxine 25mcg tab ORAL SCH (06:14)
[2018-11-28 08:00] VITALS: BP 119/56
[2018-11-28 08:11] LABS: HEMATOCRIT 26.6 % (42.0-52.0); HEMOGLOBIN 8.5 G/DL (14.2-18.0); MEAN CORPUSCULAR VOLUME 76 FL (80-99); PLATELET COUNT 65 K/UL (150-450); RED BLOOD COUNT 3.48 M/UL (4.70-6.10); WHITE BLOOD COUNT 3.1 K/UL (4.8-10.8)
[2018-11-28 08:23] LABS: ANION GAP 7 mmol/L (5-15); BLOOD UREA NITROGEN 20 mg/dL (7-18); CALCIUM 8.8 MG/DL (8.5-10.1); CARBON DIOXIDE 27 MMOL/L (21-32); CHLORIDE 102 MMOL/L (98-107); POTASSIUM 3.7 MMOL/L (3.5-5.1); SODIUM 136 MMOL/L (136-145)
[2018-11-28] MEDS: Docusate 100mg cap ORAL SCH ×2 (08:43→21:02)
[2018-11-28] MEDS: Carvedilol 12.5mg tab ORAL SCH ×2 (08:46→21:00)
--- NOTE | 2018-11-28 11:34 | GI Progress Note ---
Assessment/Plan Problems: (1) History of CVA (cerebrovascular accident) ICD Codes: Z86.73 - Personal history of transient ischemic attack (TIA), and cerebral infarction without residual deficits SNOMED: 538402924 (2) Severe anemia ICD Codes: D64.9 - Anemia, unspecified SNOMED: 651684275 (3) Abdominal pain ICD Codes: R10.9 - Unspecified abdominal pain SNOMED: 34973422 (4) GERD (gastroesophageal reflux disease) ICD Codes: K21.9 - Gastro-esophageal reflux disease without esophagitis SNOMED: 882305867 Status: unchanged Status Narrative Discussed with Dr. Mcguire Assessment/Plan Cardiology recommendation reviewed, outpatient stress test Recent history of colonoscopy approximately 1 month ago pancytopenia Patient is on Plavix, must be discontinued for approximately 72 hours prior to any GI procedure >> now dc'd due to low platelets anemia work up reviewed plan for EGD tomorrow - NPO @ [facility]. on cardiac diet OB stool r/o GI bleed, uncollected. monitor H&H, prn transfusions. 1 unit today bowel regime ppi fu labs The patient was seen and examined at bedside and all new and available data was reviewed in the patients chart. I agree with the above findings, impression and plan. (Patient seen earlier today. Signature stamp does not reflect patient encounter time.). - Richie Mcguire MD Subjective Subjective Abdominal versus chest pain continues to have pain, had BM yesterday Objective Last 24 Hour Vital Signs Date Time Temp Pulse Resp B/P (MAP) Pulse Ox O2 Delivery O2 Flow Rate FiO2 11/28/18 09:00 Nasal Cannula 2.0 11/28/18 08:46 62 119/56 11/28/18 08:00 97.1 62 20 119/56 (77) 96 11/28/18 08:00 63 11/28/18 04:27 95 Nasal Cannula 2.0 28 11/28/18 04:27 Nasal Cannula 2.0 28 11/28/18 04:00 97.9 63 18 108/57 (74) 97 11/28/18 04:00 63 11/28/18 00:00 61 11/28/18 00:00 97.8 65 17 126/65 (85) 97 11/27/18 21:21 67 122/64 11/27/18 21:00 Nasal Cannula 2.0 11/27/18 20:00 66 11/27/18 20:00 98.1 67 16 122/64 (83) 98 11/27/18 18:44 98.3 11/27/18 16:00 98.3 66 20 111/53 (72) 97 11/27/18 16:00 65 11/27/18 12:00 98.2 62 20 109/53 (71) 97 11/27/18 12:00 64 Intake and Output 11/27/18 11/28/18 18:59 06:59 # Voids 3 3 # Bowel Movements 1 Laboratory Tests Test 11/28/18 07:30 White Blood Count 3.1 K/UL (4.8-10.8) L Red Blood Count 3.48 M/UL (4.70-6.10) L Hemoglobin 8.5 G/DL (14.2-18.0) L Hematocrit 26.6 % (42.0-52.0) L Mean Corpuscular Volume 76 FL (80-99) L Mean Corpuscular Hemoglobin 24.3 PG (27.0-31.0) L Mean Corpuscular Hemoglobin Concent 31.9 G/DL (32.0-36.0) L Red Cell Distribution Width 24.0 % (11.6-14.8) H Platelet Count 65 K/UL (150-450) L Mean Platelet Volume 8.0 FL (6.5-10.1) Neutrophils (%) (Auto) % (45.0-75.0) Lymphocytes (%) (Auto) % (20.0-45.0) Monocytes (%) (Auto) % (1.0-10.0) Eosinophils (%) (Auto) % (0.0-3.0) Basophils (%) (Auto) % (0.0-2.0) Differential Total Cells Counted 100 Neutrophils % (Manual) 19 % (45-75) L Lymphocytes % (Manual) 60 % (20-45) H Monocytes % (Manual) 20 % (1-10) H Eosinophils % (Manual) 1 % (0-3) Basophils % (Manual) 0 % (0-2) Band Neutrophils 0 % (0-8) Platelet Estimate Decreased L Platelet Morphology Giant Platelets Rare Hypochromasia 2+ Anisocytosis 3+ Microcytosis 2+ Schistocytes 1+ Sodium Level 136 MMOL/L (136-145) Potassium Level 3.7 MMOL/L (3.5-5.1) Chloride Level 102 MMOL/L (98-107) Carbon Dioxide Level 27 MMOL/L (21-32) Anion Gap 7 mmol/L (5-15) Blood Urea Nitrogen 20 mg/dL (7-18) H Creatinine 1.0 MG/DL (0.55-1.30) Estimat Glomerular Filtration Rate mL/min (>60) Glucose Level 94 MG/DL (74-106) Calcium Level 8.8 MG/DL (8.5-10.1) Height (Feet): 5 Height (Inches): 6.00 Weight (Pounds): 156 General Appearance: WD/WN, no apparent distress, alert Cardiovascular: normal rate Respiratory/Chest: normal breath sounds, no respiratory distress Abdominal Exam: normal bowel sounds, non tender, soft Extremities: normal range of motion, non-tender Jason Gray NP Nov 28, 2018 11:34
[2018-11-28 12:00] VITALS: BP 113/54
--- NOTE | 2018-11-28 12:50 | Pulmonology Progress Note ---
Assessment/Plan Problems: (1) Severe thrombocytopenia (2) ACS (acute coronary syndrome) (3) Cardiomyopathy (4) HTN (hypertension) (5) Pacemaker (6) Hypothyroidism (7) CAD (coronary artery disease) Assessment/Plan stress test showed old reversible defect troponin negative check echo: Left ventricular ejection fraction estimated to be 55-60%. f/u cardiology evaluation titrate cardiac meds check electrolytes PLT decreasing, dc all meds that can cause thrombocytopenia asked pharmacy to review meds PLT better, after receiving PLT over weekend d/w pathologist, she recommended flow cytometry to rule out any bone marrow pathology first. Subjective ROS Limited/Unobtainable: No Constitutional: Reports: no symptoms HEENT: Repors: no symptoms Respiratory: Reports: no symptoms Allergies: Coded Allergies: No Known Allergies (Verified , 09/12/10) Objective Last 24 Hour Vital Signs Date Time Temp Pulse Resp B/P (MAP) Pulse Ox O2 Delivery O2 Flow Rate FiO2 11/28/18 09:00 Nasal Cannula 2.0 11/28/18 08:46 62 119/56 11/28/18 08:00 97.1 62 20 119/56 (77) 96 11/28/18 08:00 63 11/28/18 04:27 95 Nasal Cannula 2.0 28 11/28/18 04:27 Nasal Cannula 2.0 28 11/28/18 04:00 97.9 63 18 108/57 (74) 97 11/28/18 04:00 63 11/28/18 00:00 61 11/28/18 00:00 97.8 65 17 126/65 (85) 97 11/27/18 21:21 67 122/64 11/27/18 21:00 Nasal Cannula 2.0 11/27/18 20:00 66 11/27/18 20:00 98.1 67 16 122/64 (83) 98 11/27/18 18:44 98.3 11/27/18 16:00 98.3 66 20 111/53 (72) 97 11/27/18 16:00 65 Intake and Output 11/27/18 11/28/18 19:00 07:00 # Voids 3 3 # Bowel Movements 1 Objective General Appearance: cachetic Lines, tubes and drains: peripheral HEENT: normocephalic, atraumatic Neck: non-tender, normal alignment Respiratory/Chest: chest wall non-tender, lungs clear Breasts: no masses Cardiovascular/Chest: normal peripheral pulses, normal rate Abdomen: normal bowel sounds, non tender Genitourinary/Rectal: normal genital exam Extremities: normal range of motion Skin Exam: normal pigmentation 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 Laboratory Tests 11/28/18 07:30: White Blood Count 3.1L, Red Blood Count 3.48L, Hemoglobin 8.5L, Hematocrit 26.6L , Mean Corpuscular Volume 76L, Mean Corpuscular Hemoglobin 24.3L, Mean Corpuscular Hemoglobin Concent 31.9L, Red Cell Distribution Width 24.0H, Platelet Count 65L, Mean Platelet Volume 8.0, Neutrophils (%) (Auto) , Lymphocytes (%) (Auto) , Monocytes (%) (Auto) , Eosinophils (%) (Auto) , Basophils (%) (Auto) , Differential Total Cells Counted 100, Neutrophils % ( Manual) 19L, Lymphocytes % (Manual) 60H, Monocytes % (Manual) 20H, Eosinophils % (Manual) 1, Basophils % (Manual) 0, Band Neutrophils 0, Platelet Estimate DecreasedL, Platelet Morphology , Giant Platelets Rare, Hypochromasia 2+, Anisocytosis 3+, Microcytosis 2+, Schistocytes 1+, Sodium Level 136, Potassium Level 3.7, Chloride Level 102, Carbon Dioxide Level 27, Anion Gap 7, Blood Urea Nitrogen 20H, Creatinine 1.0, Estimat Glomerular Filtration Rate , Glucose Level 94, Calcium Level 8.8 Current Medications Medications (Trade) Dose Ordered Sig/Scout Route PRN Reason Start Time Stop Time Status Last Admin Dose Admin Acetaminophen (Tylenol) 650 mg Q4H PRN ORAL Mild Pain (Pain Scale 1-3) 11/18/18 10:15 12/18/18 10:14 11/28/18 01:30 Acetaminophen (Tylenol) 650 mg Q4H PRN ORAL fever 11/18/18 10:15 12/18/18 10:14 Acetaminophen (Tylenol) 650 mg Q4H PRN RECTAL Mild Pain (Pain Scale 1-3) 11/18/18 10:15 12/18/18 10:14 Atorvastatin Calcium (Lipitor) 40 mg BEDTIME ORAL 11/18/18 21:00 12/18/18 20:59 11/27/18 21:21 Bisacodyl (Dulcolax) 10 mg DAILYPRN PRN RECTAL Constipation 11/18/18 10:15 12/18/18 10:14 Carvedilol (Coreg) 12.5 mg EVERY 12 HOURS ORAL 11/21/18 21:00 12/18/18 20:59 11/28/18 08:46 Dextrose (Dextrose 50%) 25 ml Q30M PRN IV Hypoglycemia 11/18/18 10:15 12/18/18 10:14 Dextrose (Dextrose 50%) 50 ml Q30M PRN IV Hypoglycemia 11/18/18 10:15 12/18/18 10:14 Docusate Sodium (Colace) 100 mg EVERY 12 HOURS ORAL 11/18/18 21:00 12/18/18 20:59 11/27/18 09:29 Escitalopram Oxalate (Lexapro) 15 mg DAILY ORAL 11/24/18 09:00 12/24/18 08:59 11/28/18 08:46 Levothyroxine Sodium (Synthroid) 25 mcg Q24H ORAL 11/19/18 06:30 12/19/18 06:29 11/28/18 06:14 Lorazepam (Ativan) 2 mg Q6H PRN ORAL For Anxiety 11/23/18 11:45 11/30/18 11:44 11/24/18 03:41 Magnesium Hydroxide (Mom) 30 ml HSPRN PRN ORAL Constipation 11/18/18 10:15 12/18/18 10:14 Morphine Sulfate (Morphine Sulfate) 2 mg Q4H PRN IVP Moderate Pain (Pain Scale 4-6) 11/26/18 15:00 12/03/18 14:59 11/27/18 18:14 Morphine Sulfate (Morphine Sulfate) 4 mg Q4H PRN IVP Severe Pain (Pain Scale 7-10) 11/26/18 13:30 12/03/18 13:29 11/27/18 03:50 Nitroglycerin (Ntg) 0.4 mg Q5M PRN SL Prn Chest Pain 11/18/18 10:15 12/18/18 10:14 11/20/18 17:57 Ondansetron HCl (Zofran) 4 mg Q6H PRN IVP Nausea & Vomiting 11/18/18 10:15 12/18/18 10:14 11/21/18 21:57 Pantoprazole (Protonix) 40 mg DAILY ORAL 11/19/18 09:00 12/19/18 08:59 11/28/18 08:46 Polyethylene Glycol (Miralax) 17 gm DAILYPRN PRN ORAL Constipation 11/18/18 10:15 12/18/18 10:14 Chepe Luong MD Nov 28, 2018 12:50
--- NOTE | 2018-11-28 13:01 | Diagnostic Imaging Report ---
Indication: Dyspnea Comparison: 11/18/2018 A single view chest radiograph was obtained. Findings: Hiatal hernia demonstrated. Heart size is stable. Sternotomy and pacemaker again noted. Interstitial opacities appear slightly more prominent currently. IMPRESSION: Consider mild CHF. Correlate clinically
[2018-11-28] MEDS: Morphine Sulfate 2mg/ml Inj(IV/IM USE ONLY) IVP PRN (13:23)
--- NOTE | 2018-11-28 14:06 | Cardiac Electrophysiology PN ---
Assessment/Plan Assessment/Plan 1. Atypical chest pain and hx of CABG. Likely due to severe anemia. Ruled out [place]. Nuclear stress test cancelled for severe anemia. Schedule as out patient after pancytopenia is resolved On Lipitor and Coreg. Off Aspirin and Plavix for anemia and Plt 17 only 2. Cardiomyopathy. EF now 55%. On Coreg 12.5 mg bid. Off Lisinopril and Lasix 3. Status post [facility] atrial biventricular defibrillator. Interrogated and showed Nl Fx 4. Severe anemia, S/P PRBC. FU GI. 5. Pancytopenia with Platelet count of 17. Off Aspirin and PLavix S/P platelet transfusion. DIEGO RN Subjective Subjective Very weak. 100% V paced on tele Objective Last 24 Hour Vital Signs Date Time Temp Pulse Resp B/P (MAP) Pulse Ox O2 Delivery O2 Flow Rate FiO2 11/28/18 13:53 97.1 11/28/18 12:00 97.7 60 17 113/54 (73) 97 11/28/18 09:00 Nasal Cannula 2.0 11/28/18 08:46 62 119/56 11/28/18 08:00 97.1 62 20 119/56 (77) 96 11/28/18 08:00 63 11/28/18 04:27 95 Nasal Cannula 2.0 28 11/28/18 04:27 Nasal Cannula 2.0 28 11/28/18 04:00 97.9 63 18 108/57 (74) 97 11/28/18 04:00 63 11/28/18 00:00 61 11/28/18 00:00 97.8 65 17 126/65 (85) 97 11/27/18 21:21 67 122/64 11/27/18 21:00 Nasal Cannula 2.0 11/27/18 20:00 66 11/27/18 20:00 98.1 67 16 122/64 (83) 98 11/27/18 16:00 98.3 66 20 111/53 (72) 97 11/27/18 16:00 65 Intake and Output 11/27/18 11/28/18 18:59 06:59 # Voids 3 3 # Bowel Movements 1 Laboratory Tests Test 11/28/18 07:30 White Blood Count 3.1 K/UL (4.8-10.8) L Red Blood Count 3.48 M/UL (4.70-6.10) L Hemoglobin 8.5 G/DL (14.2-18.0) L Hematocrit 26.6 % (42.0-52.0) L Mean Corpuscular Volume 76 FL (80-99) L Mean Corpuscular Hemoglobin 24.3 PG (27.0-31.0) L Mean Corpuscular Hemoglobin Concent 31.9 G/DL (32.0-36.0) L Red Cell Distribution Width 24.0 % (11.6-14.8) H Platelet Count 65 K/UL (150-450) L Mean Platelet Volume 8.0 FL (6.5-10.1) Neutrophils (%) (Auto) % (45.0-75.0) Lymphocytes (%) (Auto) % (20.0-45.0) Monocytes (%) (Auto) % (1.0-10.0) Eosinophils (%) (Auto) % (0.0-3.0) Basophils (%) (Auto) % (0.0-2.0) Differential Total Cells Counted 100 Neutrophils % (Manual) 19 % (45-75) L Lymphocytes % (Manual) 60 % (20-45) H Monocytes % (Manual) 20 % (1-10) H Eosinophils % (Manual) 1 % (0-3) Basophils % (Manual) 0 % (0-2) Band Neutrophils 0 % (0-8) Platelet Estimate Decreased L Platelet Morphology Giant Platelets Rare Hypochromasia 2+ Anisocytosis 3+ Microcytosis 2+ Schistocytes 1+ Sodium Level 136 MMOL/L (136-145) Potassium Level 3.7 MMOL/L (3.5-5.1) Chloride Level 102 MMOL/L (98-107) Carbon Dioxide Level 27 MMOL/L (21-32) Anion Gap 7 mmol/L (5-15) Blood Urea Nitrogen 20 mg/dL (7-18) H Creatinine 1.0 MG/DL (0.55-1.30) Estimat Glomerular Filtration Rate mL/min (>60) Glucose Level 94 MG/DL (74-106) Calcium Level 8.8 MG/DL (8.5-10.1) Objective HEAD AND NECK: No JVD. LUNGS: Coarse rhonchi. CARDIOVASCULAR: Regular S1 and S2 with no gallop or murmur. Sternotomy is intact. Defibrillator is in left subclavian. ABDOMEN: Soft. EXTREMITIES: 1+ pitting edema. Satinder Gee MD Nov 28, 2018 14:06
[2018-11-28 16:00] VITALS: BP 125/57
[2018-11-28] MEDS ORDERED: Acetaminophen 650 MG SUPP RECTAL PRN (17:02)
[2018-11-28] MEDS ORDERED: LORazepam 1mg tab ORAL PRN (17:03)
[2018-11-28] MEDS ORDERED: Miralax 17gm pkt ORAL PRN (17:04)
[2018-11-28] MEDS: Morphine Sulfate 4mg/ml Inj (IV USE ONLY) IVP PRN ×2 (17:08→21:03)
--- NOTE | 2018-11-28 19:15 | Internal Med Progress Note ---
Subjective Date of Service: Nov 28, 2018 Physician Name West,Nikhil Attending Physician Abdias Hunter MD Current Medications Medications (Trade) Dose Ordered Sig/Scout Route PRN Reason Start Time Stop Time Status Last Admin Dose Admin Acetaminophen (Tylenol) 650 mg Q4H PRN ORAL Mild Pain (Pain Scale 1-3) 11/28/18 17:02 12/18/18 17:01 Acetaminophen (Tylenol) 650 mg Q4H PRN ORAL fever 11/28/18 17:02 12/18/18 17:01 Acetaminophen (Tylenol) 650 mg Q4H PRN RECTAL Mild Pain (Pain Scale 1-3) 11/28/18 17:02 12/18/18 17:01 Atorvastatin Calcium (Lipitor) 40 mg BEDTIME ORAL 11/28/18 21:00 12/18/18 20:59 Bisacodyl (Dulcolax) 10 mg DAILYPRN PRN RECTAL Constipation 11/28/18 17:02 12/28/18 17:01 Carvedilol (Coreg) 12.5 mg EVERY 12 HOURS ORAL 11/28/18 21:00 12/18/18 20:59 Dextrose (Dextrose 50%) 25 ml Q30M PRN IV Hypoglycemia 11/28/18 17:15 12/18/18 10:14 Dextrose (Dextrose 50%) 50 ml Q30M PRN IV Hypoglycemia 11/28/18 17:15 12/18/18 10:14 Docusate Sodium (Colace) 100 mg EVERY 12 HOURS ORAL 11/28/18 21:00 12/18/18 20:59 Escitalopram Oxalate (Lexapro) 15 mg DAILY ORAL 11/29/18 09:00 12/24/18 08:59 Levothyroxine Sodium (Synthroid) 25 mcg Q24H ORAL 11/29/18 06:30 12/19/18 06:29 Lorazepam (Ativan) 2 mg Q6H PRN ORAL For Anxiety 11/28/18 17:03 11/30/18 17:02 Magnesium Hydroxide (Mom) 30 ml HSPRN PRN ORAL Constipation 11/29/18 17:03 12/18/18 17:02 Morphine Sulfate (Morphine Sulfate) 2 mg Q4H PRN IVP Moderate Pain (Pain Scale 4-6) 11/28/18 17:03 12/03/18 17:02 Morphine Sulfate (Morphine Sulfate) 4 mg Q4H PRN IVP Severe Pain (Pain Scale 7-10) 11/28/18 17:30 12/03/18 13:29 11/28/18 17:08 Nitroglycerin (Ntg) 0.4 mg Q5M PRN SL Prn Chest Pain 11/28/18 17:05 12/18/18 10:14 Ondansetron HCl (Zofran) 4 mg Q6H PRN IVP Nausea & Vomiting 11/28/18 17:03 12/18/18 17:02 Pantoprazole (Protonix) 40 mg DAILY ORAL 11/29/18 09:00 12/19/18 08:59 Polyethylene Glycol (Miralax) 17 gm DAILYPRN PRN ORAL Constipation 11/28/18 17:04 12/28/18 17:03 Allergies: Coded Allergies: No Known Allergies (Verified , 09/12/10) ROS Limited/Unobtainable: No Constitutional: Reports: no symptoms HEENT: Reports: no symptoms Cardiovascular: Reports: no symptoms Respiratory: Reports: no symptoms Gastrointestinal/Abdominal: Reports: no symptoms Genitourinary: Reports: no symptoms Neurologic/Psychiatric: Reports: no symptoms Subjective 78 YO M admitted with chest pain. Cover for Int Joseph-Dr Hunter. Objective Last Vital Signs Date Time Temp Pulse Resp B/P (MAP) Pulse Ox O2 Delivery O2 Flow Rate FiO2 11/28/18 17:38 97.9 11/28/18 16:00 62 19 125/57 (79) 96 11/28/18 09:00 Nasal Cannula 2.0 11/28/18 04:27 28 Laboratory Tests Test 11/28/18 07:30 White Blood Count 3.1 K/UL (4.8-10.8) L Red Blood Count 3.48 M/UL (4.70-6.10) L Hemoglobin 8.5 G/DL (14.2-18.0) L Hematocrit 26.6 % (42.0-52.0) L Mean Corpuscular Volume 76 FL (80-99) L Mean Corpuscular Hemoglobin 24.3 PG (27.0-31.0) L Mean Corpuscular Hemoglobin Concent 31.9 G/DL (32.0-36.0) L Red Cell Distribution Width 24.0 % (11.6-14.8) H Platelet Count 65 K/UL (150-450) L Mean Platelet Volume 8.0 FL (6.5-10.1) Neutrophils (%) (Auto) % (45.0-75.0) Lymphocytes (%) (Auto) % (20.0-45.0) Monocytes (%) (Auto) % (1.0-10.0) Eosinophils (%) (Auto) % (0.0-3.0) Basophils (%) (Auto) % (0.0-2.0) Differential Total Cells Counted 100 Neutrophils % (Manual) 19 % (45-75) L Lymphocytes % (Manual) 60 % (20-45) H Monocytes % (Manual) 20 % (1-10) H Eosinophils % (Manual) 1 % (0-3) Basophils % (Manual) 0 % (0-2) Band Neutrophils 0 % (0-8) Platelet Estimate Decreased L Platelet Morphology Giant Platelets Rare Hypochromasia 2+ Anisocytosis 3+ Microcytosis 2+ Schistocytes 1+ Sodium Level 136 MMOL/L (136-145) Potassium Level 3.7 MMOL/L (3.5-5.1) Chloride Level 102 MMOL/L (98-107) Carbon Dioxide Level 27 MMOL/L (21-32) Anion Gap 7 mmol/L (5-15) Blood Urea Nitrogen 20 mg/dL (7-18) H Creatinine 1.0 MG/DL (0.55-1.30) Estimat Glomerular Filtration Rate mL/min (>60) Glucose Level 94 MG/DL (74-106) Calcium Level 8.8 MG/DL (8.5-10.1) Intake and Output 11/27/18 11/28/18 18:59 06:59 # Voids 3 3 # Bowel Movements 1 Objective PHYSICAL EXAMINATION: GENERAL: The patient awake, responsive, no acute distress. HEAD AND NECK: Pupils are equal and reactive to light. Extraocular movements are intact. Neck was supple. No JVD LUNGS: Good air entry. No wheeze or rales. HEART: S1, S2. Distant heart sounds. No murmur or gallops. Pacemaker in left-sided chest wall. ABDOMEN: Soft, nondistended, nontender. EXTREMITIES: No cyanosis, clubbing, edema. Varicose veins, bilateral lower extremities. NEUROLOGIC: Cranial nerves II through XII grossly intact. Motor is 5/5 in all extremities. Gait is intact. RECTAL: Refused and deferred. GENITOURINARY: Refused and deferred. PSYCHIATRIC: Mood and affect is depressed. Assessment/Plan Assessment/Plan ASSESSMENT: 1. Chest pain, possible acute coronary syndrome. 2. Hypertension. 3. Dyslipidemia. 4. Congestive heart failure. 5. Coronary artery disease. 6. Sick sinus syndrome, status pacemaker. 7. UTI. 8. Pancytopenia-Severe anemia, Thrombocytopenia and leukopenia-resolving PLAN: Admit the patient to telemetry. Discussed case with Dr. Gee from Cardiology Electrophysiology. Await cardiac nuclear stress test-outpatient Dr. Luong, Pulmonary Critical Care. Urine cult=E. Coli. Continue Rocephin. DVT prophylaxis, heparin subcutaneous. Code status, Full Code. The patient is expected to be in the hospital greater than 2 days Discharge paln: [facility] S/P transfusion 2 units PRBC on 11/19/18 See Hematology consult Nikhil West MD Nov 28, 2018 19:15
[2018-11-28 20:00] VITALS: BP 105/56
[2018-11-28] MEDS: Atorvastatin 20mg tab ORAL SCH (21:02)
--- NOTE | 2018-11-28 22:32 | General Progress Note ---
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 Transfuse prn. --> Epogen or iron at this time is not particularly indicated --> Medications have been reviewed # Reticulcytosis with elevated bilirubin that is indirect --> obtain direct and indirect bilis again, trend could have liver disease --> evaluate for liver disease with hep US --> evaluate as needed with gi team, recs apprecaited #. Chest pain, possible acute coronary syndrome. --> cards recs appreciated as well as pulm --> stress test prn #. Hypertension. #. Dyslipidemia. #. Congestive heart failure. #. Coronary artery disease. #. Sick sinus syndrome, status pacemaker. #. Acute E. coli UTI. #. Hep C+++ The timing of this note does not necessarily reflect the time of the patient was seen. Greatly appreciate consultation! Subjective ROS Limited/Unobtainable: Yes Allergies: Coded Allergies: No Known Allergies (Verified , 09/12/10) Subjective 11/27: no events to report, no f/c 11/28: seen by bedside, plt 65, plan for EGD and bone marrow biopsy tomorrow Objective Last 24 Hour Vital Signs Date Time Temp Pulse Resp B/P (MAP) Pulse Ox O2 Delivery O2 Flow Rate FiO2 11/28/18 21:00 64 105/56 11/28/18 20:00 97.7 64 18 105/56 (72) 96 11/28/18 17:38 97.9 11/28/18 16:00 97.9 62 19 125/57 (79) 96 11/28/18 13:53 97.1 11/28/18 12:00 97.7 60 17 113/54 (73) 97 11/28/18 12:00 60 11/28/18 09:00 Nasal Cannula 2.0 11/28/18 08:46 62 119/56 11/28/18 08:00 97.1 62 20 119/56 (77) 96 11/28/18 08:00 63 11/28/18 04:27 95 Nasal Cannula 2.0 28 11/28/18 04:27 Nasal Cannula 2.0 28 11/28/18 04:00 97.9 63 18 108/57 (74) 97 11/28/18 04:00 63 11/28/18 00:00 61 11/28/18 00:00 97.8 65 17 126/65 (85) 97 Intake and Output 11/27/18 11/28/18 19:00 07:00 # Voids 3 3 # Bowel Movements 1 Laboratory Tests 11/28/18 07:30: White Blood Count 3.1L, Red Blood Count 3.48L, Hemoglobin 8.5L, Hematocrit 26.6L , Mean Corpuscular Volume 76L, Mean Corpuscular Hemoglobin 24.3L, Mean Corpuscular Hemoglobin Concent 31.9L, Red Cell Distribution Width 24.0H, Platelet Count 65L, Mean Platelet Volume 8.0, Neutrophils (%) (Auto) , Lymphocytes (%) (Auto) , Monocytes (%) (Auto) , Eosinophils (%) (Auto) , Basophils (%) (Auto) , Differential Total Cells Counted 100, Neutrophils % ( Manual) 19L, Lymphocytes % (Manual) 60H, Monocytes % (Manual) 20H, Eosinophils % (Manual) 1, Basophils % (Manual) 0, Band Neutrophils 0, Platelet Estimate DecreasedL, Platelet Morphology , Giant Platelets Rare, Hypochromasia 2+, Anisocytosis 3+, Microcytosis 2+, Schistocytes 1+, Sodium Level 136, Potassium Level 3.7, Chloride Level 102, Carbon Dioxide Level 27, Anion Gap 7, Blood Urea Nitrogen 20H, Creatinine 1.0, Estimat Glomerular Filtration Rate , Glucose Level 94, Calcium Level 8.8 Height (Feet): 5 Height (Inches): 6.00 Weight (Pounds): 156 Objective Sp02 EP: reviewed, normal General Appearance: well appearing, nad, alert Head: normocephalic, atraumatic Eyes: b/l eye PERRL, bilateral eye EOMI ENT: hearing grossly normal, normal pharynx Neck: full range of motion, supple, no meningismus Respiratory: chest non-tender, lungs clear, normal breath sounds Cardiovascular: regular rate, rhythm, no murmur Gastrointestinal: normal bowel sounds, non tender, no mass, no organomegaly, no bruit, non-distended Musculoskeletal: back normal, gait/station normal, normal range of motion Psychiatric: mood/affect normal Skin: warm/dry Jose Alberto España MD Nov 28, 2018 22:32
[2018-11-29] VITALS (10 sets, daily range): BP systolic 98–134; BP diastolic 42–77
[2018-11-29] MEDS: Morphine Sulfate 4mg/ml Inj (IV USE ONLY) IVP PRN ×3 (00:58→08:55)
[2018-11-29] MEDS: Levothyroxine 25mcg tab ORAL SCH (05:51)
[2018-11-29 07:08] LABS: INR 1.1 (0.9-1.1)
[2018-11-29 07:37] LABS: ANION GAP 6 mmol/L (5-15); BLOOD UREA NITROGEN 18 mg/dL (7-18); CALCIUM 8.8 MG/DL (8.5-10.1); CARBON DIOXIDE 29 MMOL/L (21-32); CHLORIDE 100 MMOL/L (98-107); POTASSIUM 3.9 MMOL/L (3.5-5.1); SODIUM 135 MMOL/L (136-145)
[2018-11-29 07:42] LABS: HEMATOCRIT 25.8 % (42.0-52.0); HEMOGLOBIN 8.2 G/DL (14.2-18.0); MEAN CORPUSCULAR VOLUME 78 FL (80-99); PLATELET COUNT 56 K/UL (150-450); RED BLOOD COUNT 3.29 M/UL (4.70-6.10); RED CELL DISTRIBUTION WIDTH 23.7 % (11.6-14.8); WHITE BLOOD COUNT 3.1 K/UL (4.8-10.8)
--- NOTE | 2018-11-29 07:57 | Anethesia Preoperative Eval ---
Anesthesia Pre-op PMH/ROS General Date of Evaluation: Nov 29, 2018 Time of Evaluation: 07:50 Anesthesiologist: ed ASA Score: ASA 4 Mallampati Score Class I : Soft palate, uvula, fauces, pillars visible Class II: Soft palate, uvula, fauces visible Class III: Soft palate, base of uvula visible Class IV: Only hard plate visible Mallampati Classification: Class II Surgeon: tammy Diagnosis: anemia Surgical Procedure: egd Anesthesia History: none Family History: no anesthesia problems Allergies: Coded Allergies: No Known Allergies (Verified , 09/12/10) Medications: see eMAR Patient NPO?: Yes NPO Date: Nov 29, 2018 NPO Time: 0000 Past Medical History Cardiovascular: Reports: HTN, CAD, other - chf, pacemaker, cabg, cardiomyopathy , acs, Gastrointestinal/Genitourinary: Reports: GERD, other - diverticulitis, Neurologic/Psychiatric: Reports: CVA, depression/anxiety Endocrine: Reports: hypothyroidism 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 Exam Physician Exam Last Vital Signs Date Time Temp Pulse Resp B/P (MAP) Pulse Ox O2 Delivery O2 Flow Rate FiO2 11/29/18 04:00 98.0 65 17 134/66 (88) 96 11/28/18 21:00 Nasal Cannula 2.0 11/28/18 04:27 28 Constitutional: NAD Neurologic: CN 2-12 intact Cardiovascular: RRR Respiratory: CTA Gastrointestinal: S/NT/ND Airway Exam Mallampati Score: Class II MO: limited Neck: decreased rom to extention and flexion TMD: 2fb ROM: limited Anesthesia Pre-op A/P Labs Hematology Test 11/29/18 06:30 White Blood Count 3.1 K/UL (4.8-10.8) L Red Blood Count 3.29 M/UL (4.70-6.10) L Hemoglobin 8.2 G/DL (14.2-18.0) L Hematocrit 25.8 % (42.0-52.0) L Mean Corpuscular Volume 78 FL (80-99) L Mean Corpuscular Hemoglobin 24.9 PG (27.0-31.0) L Mean Corpuscular Hemoglobin Concent 31.7 G/DL (32.0-36.0) L Red Cell Distribution Width 23.7 % (11.6-14.8) H Platelet Count 56 K/UL (150-450) L Mean Platelet Volume 6.5 FL (6.5-10.1) Neutrophils (%) (Auto) % (45.0-75.0) Lymphocytes (%) (Auto) % (20.0-45.0) Monocytes (%) (Auto) % (1.0-10.0) Eosinophils (%) (Auto) % (0.0-3.0) Basophils (%) (Auto) % (0.0-2.0) Neutrophils % (Manual) Pending Lymphocytes % (Manual) Pending Platelet Estimate Pending Platelet Morphology Pending Coagulation Test 11/29/18 06:30 Prothrombin Time 11.9 SEC (9.30-11.50) H Prothromb Time International Ratio 1.1 (0.9-1.1) Activated Partial Thromboplast Time 26 SEC (23-33) Chemistry Test 11/29/18 06:30 Sodium Level 135 MMOL/L (136-145) L Potassium Level 3.9 MMOL/L (3.5-5.1) Chloride Level 100 MMOL/L (98-107) Carbon Dioxide Level 29 MMOL/L (21-32) Anion Gap 6 mmol/L (5-15) Blood Urea Nitrogen 18 mg/dL (7-18) Creatinine 1.0 MG/DL (0.55-1.30) Estimat Glomerular Filtration Rate mL/min (>60) Glucose Level 88 MG/DL (74-106) Calcium Level 8.8 MG/DL (8.5-10.1) Risk Assessment & Plan Assessment: [email or web address] Plan: mac Status Change Before Surgery: No Pre-Antibiotics Drug: Mirian Edwards MD Nov 29, 2018 07:57
[2018-11-29] MEDS ORDERED: DiphenhydrAMINE 50mg/ml Inj IVP PRN (08:00)
[2018-11-29] MEDS ORDERED: fentaNYL 100 mcg/2 mL IV PRN (08:00)
[2018-11-29] MEDS ORDERED: Atropine Inj 1mg/10ml Syr IV PRN (08:00)
[2018-11-29] MEDS ORDERED: Midazolam 2mg/2ml Inj IVP PRN (08:00)
[2018-11-29] MEDS: Carvedilol 12.5mg tab ORAL SCH ×2 (08:51→20:10)
[2018-11-29] MEDS ORDERED: Phenylephrine 10mg/ml Vial ONE (09:00)
[2018-11-29] MEDS ORDERED: Propofol 200mg/20ml IV ONE (09:00)
[2018-11-29] MEDS: Docusate 100mg cap ORAL SCH ×2 (09:00→20:10)
[2018-11-29] MEDS ORDERED: Lidocaine 1% MPF 10mg/ml 5ml ONE (09:00)
--- NOTE | 2018-11-29 09:09 | Pre-Procedure Note/Attestation ---
Pre-Procedure Note/Attestation Complete Prior to Procedure Planned Procedure: not applicable Procedure Narrative: egd Indications for Procedure Pre-Operative Diagnosis: anemia Attestation I attest that I discussed the nature of the procedure; its benefits; risks and complications; and alternatives (and the risks and benefits of such alternatives ), prior to the procedure, with the patient (or the patient's legal admitting representative). I attest that, if there was a reasonable possibility of needing a blood transfusion, the patient (or the patient's legal admitting representative) was given the [facility] standardized written summary, pursuant to the [place] Blood Safety Act ([place] Health and Safety Code # 1645, as amended). I attest that I re-evaluated the patient just prior to the surgery and that there has been no change in the patient's H&P, except as documented below: Richie Mcguire MD Nov 29, 2018 09:09
[2018-11-29] MEDS ORDERED: NS 500ML IVPB ONE (09:15)
--- NOTE | 2018-11-29 10:17 | Immediate Post-Op Evaluation ---
Immediate Post-Op Evalulation Immediate Post-Op Evalulation Procedure: egd w/bx Date of Evaluation: Nov 29, 2018 Time of Evaluation: 10:09 IV Fluids: 300ml Blood Products: none Estimated Blood Loss: negligible Blood Pressure Systolic: 98 Blood Pressure Diastolic: 42 Pulse Rate: 61 Respiratory Rate: 18 O2 Sat by Pulse Oximetry: 98 Temperature (Fahrenheit): 97.7 Pain Score (1-10): 0 Nausea: No Vomiting: No Complications none Patient Status: awake, reacts, patent Hydration Status: adequate Drug: Mirian Edwards MD Nov 29, 2018 10:17
--- NOTE | 2018-11-29 10:19 | 48 Hour Post Anesthesia Eval ---
Post Anesthesia Evaluation Procedure: egd w/bx Date of Evaluation: Nov 29, 2018 Time of Evaluation: 10:18 Blood Pressure Systolic: 102 0: 53 Pulse Rate: 60 Respiratory Rate: 18 Temperature (Fahrenheit): 97.7 O2 Sat by Pulse Oximetry: 100 Airway: patent Nausea: No Vomiting: No Pain Intensity: 0 Hydration Status: adequate Cardiopulmonary Status: stable Mental Status/LOC: patient returned to baseline Post-Anesthesia Complications: none Follow-up care needed: N/A Mirian Patino MD Nov 29, 2018 10:19
--- NOTE | 2018-11-29 11:30 | PATHOLOGY BONE BARROW ---
Bone Marrow Aspirate & Biopsy . PROCEDURE: Bone Marrow Aspirate and Biopsy INDICATION: Pancytopenia PROCEDURE PHOTOVOLTAIC SOLAR CELL DESIGNER: Magalie Handy MD CONSENT: Consent was previously obtained from the patient. The risks and benefits were re-explained. The patient agreed to undergo the procedure. A TIMEOUT WAS EXECUTED: Yes PROCEDURE SUMMARY: The patient was laid in the side position. The left posterior iliac crest was prepped and draped in a sterile fashion. The crest of the posterior iliac was located, and the skin as well as surface of the bone was anesthetized with 2 % lidocaine. An aspirating needle was introduced, the bone marrow aspirate was obtained without any difficulty. This was withdrawn the coring needle was advanced into the bone cavity. A bone marrow biopsy was obtained without any complications. ESTIMATED BLOOD LOSS: Negligible REPORTS TO FOLLOW MAGALIE HANDY Nov 29, 2018 11:30
--- NOTE | 2018-11-29 13:22 | Pulmonology Progress Note ---
Assessment/Plan Problems: (1) Severe thrombocytopenia (2) ACS (acute coronary syndrome) (3) Cardiomyopathy (4) HTN (hypertension) (5) Pacemaker (6) Hypothyroidism (7) CAD (coronary artery disease) Assessment/Plan bone marrow biopsy done flow cytometry pending check electrolytes asked pharmacy to review meds PLT better, after receiving PLT over weekend Subjective ROS Limited/Unobtainable: No Constitutional: Reports: no symptoms HEENT: Repors: no symptoms Allergies: Coded Allergies: No Known Allergies (Verified , 09/12/10) Objective Last 24 Hour Vital Signs Date Time Temp Pulse Resp B/P (MAP) Pulse Ox O2 Delivery O2 Flow Rate FiO2 11/29/18 10:19 60 18 100 11/29/18 10:18 98.0 60 15 102/53 100 Nasal Cannula 3 11/29/18 10:17 61 18 98 11/29/18 10:07 60 15 106/45 98 Nasal Cannula 3 11/29/18 10:02 63 17 98/51 98 Nasal Cannula 3 11/29/18 09:57 97.7 61 18 98/42 98 Nasal Cannula 3 11/29/18 09:25 97.7 11/29/18 09:00 Nasal Cannula 2.0 11/29/18 08:00 97.9 60 18 124/70 (88) 96 11/29/18 04:00 98.0 65 17 134/66 (88) 96 11/29/18 00:00 98.2 63 18 115/59 (77) 100 11/28/18 21:00 Nasal Cannula 2.0 11/28/18 21:00 64 105/56 11/28/18 20:00 97.7 64 18 105/56 (72) 96 11/28/18 16:00 97.9 62 19 125/57 (79) 96 11/28/18 13:53 97.1 Intake and Output 11/28/18 11/29/18 19:00 07:00 Intake Total 240 ml 80 ml Balance 240 ml 80 ml Intake Oral 240 ml 80 ml # Voids 2 Objective General Appearance: cachetic Lines, tubes and drains: peripheral HEENT: normocephalic, atraumatic Neck: non-tender, normal alignment Respiratory/Chest: chest wall non-tender, lungs clear Breasts: no masses Cardiovascular/Chest: normal peripheral pulses, normal rate Abdomen: normal bowel sounds, non tender Genitourinary/Rectal: normal genital exam Extremities: normal range of motion Skin Exam: normal pigmentation Neurologic: site auditor II-XII grossly normal Laboratory Tests 11/29/18 06:30: White Blood Count 3.1L, Red Blood Count 3.29L, Hemoglobin 8.2L, Hematocrit 25.8L , Mean Corpuscular Volume 78L, Mean Corpuscular Hemoglobin 24.9L, Mean Corpuscular Hemoglobin Concent 31.7L, Red Cell Distribution Width 23.7H, Platelet Count 56L, Mean Platelet Volume 6.5, Neutrophils (%) (Auto) , Lymphocytes (%) (Auto) , Monocytes (%) (Auto) , Eosinophils (%) (Auto) , Basophils (%) (Auto) , Differential Total Cells Counted 100, Neutrophils % ( Manual) 23L, Lymphocytes % (Manual) 59H, Monocytes % (Manual) 14H, Eosinophils % (Manual) 3, Basophils % (Manual) 0, Band Neutrophils 1, Platelet Estimate DecreasedL, Platelet Morphology Normal, Hypochromasia 2+, Anisocytosis 3+, Microcytosis 2+, [place] Cells 1+, Prothrombin Time 11.9H, Prothromb Time International Ratio 1.1, Activated Partial Thromboplast Time 26, Sodium Level 135L, Potassium Level 3.9, Chloride Level 100, Carbon Dioxide Level 29, Anion Gap 6, Blood Urea Nitrogen 18, Creatinine 1.0, Estimat Glomerular Filtration Rate , Glucose Level 88, Calcium Level 8.8 Current Medications Medications (Trade) Dose Ordered Sig/Scout Route PRN Reason Start Time Stop Time Status Last Admin Dose Admin Acetaminophen (Tylenol) 650 mg Q4H PRN ORAL Mild Pain (Pain Scale 1-3) 11/28/18 17:02 12/18/18 17:01 Acetaminophen (Tylenol) 650 mg Q4H PRN ORAL fever 11/28/18 17:02 12/18/18 17:01 Acetaminophen (Tylenol) 650 mg Q4H PRN RECTAL Mild Pain (Pain Scale 1-3) 11/28/18 17:02 12/18/18 17:01 Al Hydroxide/Mg Hydroxide (Mylanta) 15 ml Q1H PRN ORAL gi upset 11/29/18 08:00 11/29/18 14:00 Atorvastatin Calcium (Lipitor) 40 mg BEDTIME ORAL 11/28/18 21:00 12/18/18 20:59 11/28/18 21:02 Atropine Sulfate (Atropine) 0.5 mg Q5M PRN IV bpm less than 45 11/29/18 08:00 11/29/18 14:00 Bisacodyl (Dulcolax) 10 mg DAILYPRN PRN RECTAL Constipation 11/28/18 17:02 12/28/18 17:01 Carvedilol (Coreg) 12.5 mg EVERY 12 HOURS ORAL 11/28/18 21:00 12/18/18 20:59 Dextrose (Dextrose 50%) 25 ml Q30M PRN IV Hypoglycemia 11/28/18 17:15 12/18/18 10:14 Dextrose (Dextrose 50%) 50 ml Q30M PRN IV Hypoglycemia 11/28/18 17:15 12/18/18 10:14 Diphenhydramine HCl (Benadryl) 25 mg Q15M PRN IVP Itching 11/29/18 08:00 11/29/18 14:00 Docusate Sodium (Colace) 100 mg EVERY 12 HOURS ORAL 11/28/18 21:00 12/18/18 20:59 11/28/18 21:02 Escitalopram Oxalate (Lexapro) 15 mg DAILY ORAL 11/29/18 09:00 12/24/18 08:59 Fentanyl Citrate (Sublimaze 100 mcg/2 mL) 25 mcg Q10M PRN IV Moderate Pain (Pain Scale 4-6) 11/29/18 08:00 11/29/18 14:00 Hydralazine HCl (Apresoline) 5 mg Q30M PRN IV SBP>160 OR___/DBP>90 OR___ 11/29/18 08:00 11/29/18 14:00 Levothyroxine Sodium (Synthroid) 25 mcg Q24H ORAL 11/29/18 06:30 12/19/18 06:29 11/29/18 05:51 Lorazepam (Ativan) 2 mg Q6H PRN ORAL For Anxiety 11/28/18 17:03 11/30/18 17:02 Magnesium Hydroxide (Mom) 30 ml HSPRN PRN ORAL Constipation 11/29/18 17:03 12/18/18 17:02 Midazolam HCl (Versed 2mg/2ml vial) 1 mg Q15M PRN IVP For Anxiety 11/29/18 08:00 11/29/18 14:00 Morphine Sulfate (Morphine Sulfate) 2 mg Q4H PRN IVP Moderate Pain (Pain Scale 4-6) 11/28/18 17:03 12/03/18 17:02 Morphine Sulfate (Morphine Sulfate) 4 mg Q4H PRN IVP Severe Pain (Pain Scale 7-10) 11/28/18 17:30 12/03/18 13:29 11/29/18 08:55 Nitroglycerin (Ntg) 0.4 mg Q5M PRN SL Prn Chest Pain 11/28/18 17:05 12/18/18 10:14 Ondansetron HCl (Zofran) 4 mg Q6H PRN IVP Nausea & Vomiting 11/28/18 17:03 12/18/18 17:02 Pantoprazole (Protonix) 40 mg DAILY ORAL 11/29/18 09:00 12/19/18 08:59 Polyethylene Glycol (Miralax) 17 gm DAILYPRN PRN ORAL Constipation 11/28/18 17:04 12/28/18 17:03 Sodium Chloride 1,000 ml @ 10 mls/hr Q24H IVLG 11/29/18 07:48 11/29/18 14:00 Chepe Luong MD Nov 29, 2018 13:22
[2018-11-29] MEDS: Morphine Sulfate 2mg/ml Inj(IV/IM USE ONLY) IVP PRN (14:48)
--- NOTE | 2018-11-29 16:24 | Cardiac Electrophysiology PN ---
Assessment/Plan Assessment/Plan 1. Atypical chest pain and hx of CABG. Likely due to severe anemia. Ruled out MO. Nuclear stress test cancelled for severe anemia. Schedule after pancytopenia is resolved On Lipitor and Coreg. Off Aspirin and Plavix for anemia and Plt 17 only 2. Cardiomyopathy. EF now 55%. On Coreg 12.5 mg bid. Off Lisinopril and Lasix 3. Status post [facility] atrial biventricular defibrillator. Interrogated and showed Nl Fx 4. Severe anemia, S/P PRBC. FU GI. 5. Pancytopenia with Platelet count of 17. Off Aspirin and PLavix S/P platelet transfusion. S/P BM biopsy today DW RN Subjective Subjective Very weak. Had BM biopsy today. Off tele Objective Last 24 Hour Vital Signs Date Time Temp Pulse Resp B/P (MAP) Pulse Ox O2 Delivery O2 Flow Rate FiO2 11/29/18 15:18 97.7 11/29/18 12:00 97.8 65 18 119/75 (90) 96 11/29/18 10:19 60 18 100 11/29/18 10:18 98.0 60 15 102/53 100 Nasal Cannula 3 11/29/18 10:17 61 18 98 11/29/18 10:07 60 15 106/45 98 Nasal Cannula 3 11/29/18 10:02 63 17 98/51 98 Nasal Cannula 3 11/29/18 09:57 97.7 61 18 98/42 98 Nasal Cannula 3 11/29/18 09:25 97.7 11/29/18 09:00 Nasal Cannula 2.0 11/29/18 08:00 97.9 60 18 124/70 (88) 96 11/29/18 04:00 98.0 65 17 134/66 (88) 96 11/29/18 00:00 98.2 63 18 115/59 (77) 100 11/28/18 21:00 Nasal Cannula 2.0 11/28/18 21:00 64 105/56 11/28/18 20:00 97.7 64 18 105/56 (72) 96 Intake and Output 11/28/18 11/29/18 18:59 06:59 Intake Total 240 ml 80 ml Balance 240 ml 80 ml Intake Oral 240 ml 80 ml # Voids 2 Laboratory Tests Test 11/29/18 06:30 White Blood Count 3.1 K/UL (4.8-10.8) L Red Blood Count 3.29 M/UL (4.70-6.10) L Hemoglobin 8.2 G/DL (14.2-18.0) L Hematocrit 25.8 % (42.0-52.0) L Mean Corpuscular Volume 78 FL (80-99) L Mean Corpuscular Hemoglobin 24.9 PG (27.0-31.0) L Mean Corpuscular Hemoglobin Concent 31.7 G/DL (32.0-36.0) L Red Cell Distribution Width 23.7 % (11.6-14.8) H Platelet Count 56 K/UL (150-450) L Mean Platelet Volume 6.5 FL (6.5-10.1) Neutrophils (%) (Auto) % (45.0-75.0) Lymphocytes (%) (Auto) % (20.0-45.0) Monocytes (%) (Auto) % (1.0-10.0) Eosinophils (%) (Auto) % (0.0-3.0) Basophils (%) (Auto) % (0.0-2.0) Differential Total Cells Counted 100 Neutrophils % (Manual) 23 % (45-75) L Lymphocytes % (Manual) 59 % (20-45) H Monocytes % (Manual) 14 % (1-10) H Eosinophils % (Manual) 3 % (0-3) Basophils % (Manual) 0 % (0-2) Band Neutrophils 1 % (0-8) Platelet Estimate Decreased L Platelet Morphology Normal Hypochromasia 2+ Anisocytosis 3+ Microcytosis 2+ [place] Cells 1+ Prothrombin Time 11.9 SEC (9.30-11.50) H Prothromb Time International Ratio 1.1 (0.9-1.1) Activated Partial Thromboplast Time 26 SEC (23-33) Sodium Level 135 MMOL/L (136-145) L Potassium Level 3.9 MMOL/L (3.5-5.1) Chloride Level 100 MMOL/L (98-107) Carbon Dioxide Level 29 MMOL/L (21-32) Anion Gap 6 mmol/L (5-15) Blood Urea Nitrogen 18 mg/dL (7-18) Creatinine 1.0 MG/DL (0.55-1.30) Estimat Glomerular Filtration Rate mL/min (>60) Glucose Level 88 MG/DL (74-106) Calcium Level 8.8 MG/DL (8.5-10.1) Objective HEAD AND NECK: No JVD. LUNGS: Coarse rhonchi. CARDIOVASCULAR: Regular S1 and S2 with no gallop or murmur. Sternotomy is intact. Defibrillator is in left subclavian. ABDOMEN: Soft. EXTREMITIES: 1+ pitting edema. Satinder Gee MD Nov 29, 2018 16:24
[2018-11-29] MEDS ORDERED: Milk of Magnesia 30ml Ud ORAL PRN (17:03)
--- NOTE | 2018-11-29 17:30 | Procedure Note ---
DATE OF PROCEDURE: 11/29/2018 SURGEON: Richie Mcguire M.D. REFERRING PHYSICIAN: Abdias Hunter M.D. PROCEDURE: Upper endoscopy with biopsy. ANESTHESIA: Per Dr. Villar. INSTRUMENT: Olympus adult flexible upper endoscope. INDICATION: Anemia. REASON FOR PROCEDURE: The procedure, risks, benefits, and possible consequences, including hemorrhage, aspiration, perforation and infection, and alternative treatments, were explained to the patient/legal guardian by Dr. Richie Mcguire and the patient/legal guardian understood and accepted these risks. PROCEDURE IN DETAIL: After informed consent was obtained and the patient was adequately sedated, Olympus upper endoscope was advanced from the mouth into the second portion of the duodenum and retroflexion was performed in the stomach. The patient has a 6 cm hiatal hernia. No obvious esophagitis. There was evidence of diffuse gastritis. Random biopsy from antrum was obtained to rule out H. pylori infection. The rest of the upper endoscopic examination was within normal limits. The patient tolerated the procedure very well without any complication. SUMMARY OF FINDINGS: 1. Gastritis. 2. A 6 cm hiatal hernia. RECOMMENDATIONS: 1. Follow up biopsy results and treat accordingly. 2. The patient is going for bone marrow biopsy. We will follow. 3. We will follow stool for OB positive. If it is positive, we will recommend colonoscopy. I want to thank Dr. Abdias Hunter for this kind referral. Richie Mcguire M.D. DR: YOUNG JOB#: [id number] CC:
--- NOTE | 2018-11-29 19:06 | Internal Med Progress Note ---
Subjective Date of Service: Nov 29, 2018 Physician Name Wset,Nikhil Attending Physician Abdias Hunter MD Current Medications Medications (Trade) Dose Ordered Sig/Scout Route PRN Reason Start Time Stop Time Status Last Admin Dose Admin Acetaminophen (Tylenol) 650 mg Q4H PRN ORAL Mild Pain (Pain Scale 1-3) 11/28/18 17:02 12/18/18 17:01 Acetaminophen (Tylenol) 650 mg Q4H PRN ORAL fever 11/28/18 17:02 12/18/18 17:01 Acetaminophen (Tylenol) 650 mg Q4H PRN RECTAL Mild Pain (Pain Scale 1-3) 11/28/18 17:02 12/18/18 17:01 Atorvastatin Calcium (Lipitor) 40 mg BEDTIME ORAL 11/28/18 21:00 12/18/18 20:59 11/28/18 21:02 Bisacodyl (Dulcolax) 10 mg DAILYPRN PRN RECTAL Constipation 11/28/18 17:02 12/28/18 17:01 Carvedilol (Coreg) 12.5 mg EVERY 12 HOURS ORAL 11/28/18 21:00 12/18/18 20:59 Dextrose (Dextrose 50%) 25 ml Q30M PRN IV Hypoglycemia 11/28/18 17:15 12/18/18 10:14 Dextrose (Dextrose 50%) 50 ml Q30M PRN IV Hypoglycemia 11/28/18 17:15 12/18/18 10:14 Docusate Sodium (Colace) 100 mg EVERY 12 HOURS ORAL 11/28/18 21:00 12/18/18 20:59 11/28/18 21:02 Escitalopram Oxalate (Lexapro) 15 mg DAILY ORAL 11/29/18 09:00 12/24/18 08:59 Levothyroxine Sodium (Synthroid) 25 mcg Q24H ORAL 11/29/18 06:30 12/19/18 06:29 11/29/18 05:51 Lorazepam (Ativan) 2 mg Q6H PRN ORAL For Anxiety 11/28/18 17:03 11/30/18 17:02 Magnesium Hydroxide (Mom) 30 ml HSPRN PRN ORAL Constipation 11/29/18 17:03 12/18/18 17:02 Morphine Sulfate (Morphine Sulfate) 2 mg Q4H PRN IVP Moderate Pain (Pain Scale 4-6) 11/28/18 17:03 12/03/18 17:02 11/29/18 14:48 Morphine Sulfate (Morphine Sulfate) 4 mg Q4H PRN IVP Severe Pain (Pain Scale 7-10) 11/28/18 17:30 12/03/18 13:29 11/29/18 08:55 Nitroglycerin (Ntg) 0.4 mg Q5M PRN SL Prn Chest Pain 11/28/18 17:05 12/18/18 10:14 Ondansetron HCl (Zofran) 4 mg Q6H PRN IVP Nausea & Vomiting 11/28/18 17:03 12/18/18 17:02 Pantoprazole (Protonix) 40 mg DAILY ORAL 11/29/18 09:00 12/19/18 08:59 Polyethylene Glycol (Miralax) 17 gm DAILYPRN PRN ORAL Constipation 11/28/18 17:04 12/28/18 17:03 Allergies: Coded Allergies: No Known Allergies (Verified , 09/12/10) ROS Limited/Unobtainable: No Constitutional: Reports: no symptoms HEENT: Reports: no symptoms Cardiovascular: Reports: no symptoms Respiratory: Reports: no symptoms Gastrointestinal/Abdominal: Reports: no symptoms Genitourinary: Reports: no symptoms Neurologic/Psychiatric: Reports: no symptoms Subjective 78 YO M admitted with chest pain. Now pancytopenia and UTI. Cover for Latesha Ruiz- Dr Hunter. Objective Last Vital Signs Date Time Temp Pulse Resp B/P (MAP) Pulse Ox O2 Delivery O2 Flow Rate FiO2 11/29/18 16:00 97.5 62 19 123/77 (92) 97 11/29/18 10:18 Nasal Cannula 3 11/28/18 04:27 28 Laboratory Tests Test 11/29/18 06:30 White Blood Count 3.1 K/UL (4.8-10.8) L Red Blood Count 3.29 M/UL (4.70-6.10) L Hemoglobin 8.2 G/DL (14.2-18.0) L Hematocrit 25.8 % (42.0-52.0) L Mean Corpuscular Volume 78 FL (80-99) L Mean Corpuscular Hemoglobin 24.9 PG (27.0-31.0) L Mean Corpuscular Hemoglobin Concent 31.7 G/DL (32.0-36.0) L Red Cell Distribution Width 23.7 % (11.6-14.8) H Platelet Count 56 K/UL (150-450) L Mean Platelet Volume 6.5 FL (6.5-10.1) Neutrophils (%) (Auto) % (45.0-75.0) Lymphocytes (%) (Auto) % (20.0-45.0) Monocytes (%) (Auto) % (1.0-10.0) Eosinophils (%) (Auto) % (0.0-3.0) Basophils (%) (Auto) % (0.0-2.0) Differential Total Cells Counted 100 Neutrophils % (Manual) 23 % (45-75) L Lymphocytes % (Manual) 59 % (20-45) H Monocytes % (Manual) 14 % (1-10) H Eosinophils % (Manual) 3 % (0-3) Basophils % (Manual) 0 % (0-2) Band Neutrophils 1 % (0-8) Platelet Estimate Decreased L Platelet Morphology Normal Hypochromasia 2+ Anisocytosis 3+ Microcytosis 2+ [place] Cells 1+ Prothrombin Time 11.9 SEC (9.30-11.50) H Prothromb Time International Ratio 1.1 (0.9-1.1) Activated Partial Thromboplast Time 26 SEC (23-33) Sodium Level 135 MMOL/L (136-145) L Potassium Level 3.9 MMOL/L (3.5-5.1) Chloride Level 100 MMOL/L (98-107) Carbon Dioxide Level 29 MMOL/L (21-32) Anion Gap 6 mmol/L (5-15) Blood Urea Nitrogen 18 mg/dL (7-18) Creatinine 1.0 MG/DL (0.55-1.30) Estimat Glomerular Filtration Rate mL/min (>60) Glucose Level 88 MG/DL (74-106) Calcium Level 8.8 MG/DL (8.5-10.1) Intake and Output 11/28/18 11/29/18 18:59 06:59 Intake Total 240 ml 80 ml Balance 240 ml 80 ml Intake Oral 240 ml 80 ml # Voids 2 Objective PHYSICAL EXAMINATION: GENERAL: The patient awake, responsive, no acute distress. HEAD AND NECK: Pupils are equal and reactive to light. Extraocular movements are intact. Neck was supple. No JVD LUNGS: Good air entry. No wheeze or rales. HEART: S1, S2. Distant heart sounds. No murmur or gallops. Pacemaker in left-sided chest wall. ABDOMEN: Soft, nondistended, nontender. EXTREMITIES: No cyanosis, clubbing, edema. Varicose veins, bilateral lower extremities. NEUROLOGIC: Cranial nerves II through XII grossly intact. Motor is 5/5 in all extremities. Gait is intact. RECTAL: Refused and deferred. GENITOURINARY: Refused and deferred. PSYCHIATRIC: Mood and affect is depressed. Assessment/Plan Assessment/Plan ASSESSMENT: 1. Chest pain, possible acute coronary syndrome. 2. Hypertension. 3. Dyslipidemia. 4. Congestive heart failure. 5. Coronary artery disease. 6. Sick sinus syndrome, status pacemaker. 7. UTI. 8. Pancytopenia-Severe anemia, Thrombocytopenia and leukopenia-resolving PLAN: Admit the patient to telemetry. Discussed case with Dr. Gee from Cardiology Electrophysiology. Await cardiac nuclear stress test-outpatient Dr. Luong, Pulmonary Critical Care. Urine cult=E. Coli. Continue Rocephin. DVT prophylaxis, heparin subcutaneous. Code status, Full Code. The patient is expected to be in the hospital greater than 2 days Discharge paln: [facility] S/P transfusion 2 units PRBC on 11/19/18 See Hematology consult Nikhil West MD Nov 29, 2018 19:06
[2018-11-29] MEDS: Atorvastatin 20mg tab ORAL SCH (20:09)
--- NOTE | 2018-11-29 21:01 | General Progress Note ---
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 Transfuse prn. --> Epogen or iron at this time is not particularly indicated --> Medications have been reviewed # Reticulcytosis with elevated bilirubin that is indirect --> obtain direct and indirect bilis again, trend could have liver disease --> evaluate for liver disease with hep US --> evaluate as needed with gi team, recs apprecaited #. Chest pain, possible acute coronary syndrome. --> cards recs appreciated as well as pulm --> stress test prn #. Hypertension. #. Dyslipidemia. #. Congestive heart failure. #. Coronary artery disease. #. Sick sinus syndrome, status pacemaker. #. Acute E. coli UTI. #. Hep C+++ The timing of this note does not necessarily reflect the time of the patient was seen. Greatly appreciate consultation! Subjective Constitutional: Denies: no symptoms, chills, diaphoresis, fever, malaise, weakness, other HEENT: Denies: no symptoms, eye pain, blurred vision, tearing, double vision, ear pain, ear discharge, nose pain, nose congestion, throat pain, throat swelling, mouth pain, mouth swelling, other Cardiovascular: Denies: no symptoms, chest pain, edema, irregular heart rate, lightheadedness, palpitations, syncope, other Respiratory: Denies: no symptoms, cough, orthopnea, shortness of breath, SOB with excertion, SOB at rest, sputum, stridor, wheezing, other Gastrointestinal/Abdominal: Denies: no symptoms, abdomen distended, abdominal pain, black stools, tarry stools, blood in stool, constipated, diarrhea, difficulty swallowing, nausea, poor appetite, poor fluid intake, rectal bleeding , vomiting, other Genitourinary: Denies: no symptoms, burning, discharge, frequency, flank pain, hematuria, incontinence, pain, urgency, other Neurologic/Psychiatric: Denies: no symptoms, anxiety, depressed, emotional problems, headache, numbness, paresthesia, pre-existing deficit, seizure, tingling, tremors, weakness, other Endocrine: Denies: no symptoms, excessive sweating, flushing, intolerance to cold, intolerance to heat, increased hunger, increased thirst, increased urine, unexplained weight gain, unexplained weight loss, other Hematologic/Lymphatic: Denies: no symptoms, anemia, easy bleeding, easy bruising, other Allergies: Coded Allergies: No Known Allergies (Verified , 09/12/10) Subjective 11/27: no events to report, no f/c 11/28: seen by bedside, plt 65, plan for EGD and bone marrow biopsy tomorrow 11/29: BM biopsy today, no acute distress. Objective Last 24 Hour Vital Signs Date Time Temp Pulse Resp B/P (MAP) Pulse Ox O2 Delivery O2 Flow Rate FiO2 11/29/18 20:10 62 123/77 11/29/18 20:00 97.7 60 18 117/51 (73) 100 11/29/18 16:00 97.5 62 19 123/77 (92) 97 11/29/18 15:18 97.7 11/29/18 12:00 97.8 65 18 119/75 (90) 96 11/29/18 10:19 60 18 100 11/29/18 10:18 98.0 60 15 102/53 100 Nasal Cannula 3 11/29/18 10:17 61 18 98 11/29/18 10:07 60 15 106/45 98 Nasal Cannula 3 11/29/18 10:02 63 17 98/51 98 Nasal Cannula 3 11/29/18 09:57 97.7 61 18 98/42 98 Nasal Cannula 3 11/29/18 09:25 97.7 11/29/18 09:00 Nasal Cannula 2.0 11/29/18 08:00 97.9 60 18 124/70 (88) 96 11/29/18 04:00 98.0 65 17 134/66 (88) 96 11/29/18 00:00 98.2 63 18 115/59 (77) 100 11/28/18 21:00 Nasal Cannula 2.0 11/28/18 21:00 64 105/56 Intake and Output 11/28/18 11/29/18 18:59 06:59 Intake Total 240 ml 80 ml Balance 240 ml 80 ml Intake Oral 240 ml 80 ml # Voids 2 Laboratory Tests 11/29/18 06:30: White Blood Count 3.1L, Red Blood Count 3.29L, Hemoglobin 8.2L, Hematocrit 25.8L , Mean Corpuscular Volume 78L, Mean Corpuscular Hemoglobin 24.9L, Mean Corpuscular Hemoglobin Concent 31.7L, Red Cell Distribution Width 23.7H, Platelet Count 56L, Mean Platelet Volume 6.5, Neutrophils (%) (Auto) , Lymphocytes (%) (Auto) , Monocytes (%) (Auto) , Eosinophils (%) (Auto) , Basophils (%) (Auto) , Differential Total Cells Counted 100, Neutrophils % ( Manual) 23L, Lymphocytes % (Manual) 59H, Monocytes % (Manual) 14H, Eosinophils % (Manual) 3, Basophils % (Manual) 0, Band Neutrophils 1, Platelet Estimate DecreasedL, Platelet Morphology Normal, Hypochromasia 2+, Anisocytosis 3+, Microcytosis 2+, [place] Cells 1+, Prothrombin Time 11.9H, Prothromb Time International Ratio 1.1, Activated Partial Thromboplast Time 26, Sodium Level 135L, Potassium Level 3.9, Chloride Level 100, Carbon Dioxide Level 29, Anion Gap 6, Blood Urea Nitrogen 18, Creatinine 1.0, Estimat Glomerular Filtration Rate , Glucose Level 88, Calcium Level 8.8 Height (Feet): 5 Height (Inches): 5.00 Weight (Pounds): 148 Objective Sp02 EP: reviewed, normal General Appearance: well appearing, nad, alert Head: normocephalic, atraumatic Eyes: b/l eye PERRL, bilateral eye EOMI ENT: hearing grossly normal, normal pharynx Neck: full range of motion, supple, no meningismus Respiratory: chest non-tender, lungs clear, normal breath sounds Cardiovascular: regular rate, rhythm, no murmur Gastrointestinal: normal bowel sounds, non tender, no mass, no organomegaly, no bruit, non-distended Musculoskeletal: back normal, gait/station normal, normal range of motion Psychiatric: mood/affect normal Skin: warm/dry Jose Alberto España MD Nov 29, 2018 21:01
[2018-11-30] VITALS: BP 131/62
[2018-11-30] MEDS: Morphine Sulfate 2mg/ml Inj(IV/IM USE ONLY) IVP PRN (03:07)
[2018-11-30 04:00] VITALS: BP 128/59
[2018-11-30] MEDS: Levothyroxine 25mcg tab ORAL SCH (05:46)
[2018-11-30 07:01] LABS: HEMATOCRIT 23.6 % (42.0-52.0); HEMOGLOBIN 7.5 G/DL (14.2-18.0); MEAN CORPUSCULAR VOLUME 79 FL (80-99); PLATELET COUNT 53 K/UL (150-450); RED CELL DISTRIBUTION WIDTH 24.5 % (11.6-14.8); WHITE BLOOD COUNT 3.4 K/UL (4.8-10.8)
[2018-11-30 07:25] LABS: ANION GAP 7 mmol/L (5-15); BLOOD UREA NITROGEN 21 mg/dL (7-18); CALCIUM 8.3 MG/DL (8.5-10.1); CARBON DIOXIDE 27 MMOL/L (21-32); CHLORIDE 103 MMOL/L (98-107); POTASSIUM 4.1 MMOL/L (3.5-5.1); SODIUM 137 MMOL/L (136-145)
[2018-11-30 08:00] VITALS: BP 112/51
[2018-11-30] MEDS: Morphine Sulfate 4mg/ml Inj (IV USE ONLY) IVP PRN ×2 (08:20→13:03)
[2018-11-30] MEDS: Carvedilol 12.5mg tab ORAL SCH ×2 (08:25→20:03)
[2018-11-30] MEDS: Docusate 100mg cap ORAL SCH ×2 (08:26→20:10)
--- NOTE | 2018-11-30 10:36 | GI Progress Note ---
Assessment/Plan Problems: (1) History of CVA (cerebrovascular accident) ICD Codes: Z86.73 - Personal history of transient ischemic attack (TIA), and cerebral infarction without residual deficits SNOMED: 342495129 (2) Severe anemia ICD Codes: D64.9 - Anemia, unspecified SNOMED: 245716716 (3) Abdominal pain ICD Codes: R10.9 - Unspecified abdominal pain SNOMED: 62301998 (4) GERD (gastroesophageal reflux disease) ICD Codes: K21.9 - Gastro-esophageal reflux disease without esophagitis SNOMED: 522824124 Status: stable Status Narrative Discussed with Dr. Mcguire Assessment/Plan Cardiology recommendation reviewed, outpatient stress test Recent history of colonoscopy approximately 1 month ago pancytopenia anemia work up reviewed SUMMARY OF FINDINGS: 1. Gastritis. 2. A 6 cm hiatal hernia. RECOMMENDATIONS: Follow up biopsy results and treat accordingly. The patient is going for bone marrow biopsy. We will follow. monitor H&H, prn transfusions. bowel regime ppi, add H2B qhs fu labs The patient was seen and examined at bedside and all new and available data was reviewed in the patients chart. I agree with the above findings, impression and plan. (Patient seen earlier today. Signature stamp does not reflect patient encounter time.). - Richie Mcguire MD Subjective Subjective Abdominal versus chest, pain continues to have pain. Objective Last 24 Hour Vital Signs Date Time Temp Pulse Resp B/P (MAP) Pulse Ox O2 Delivery O2 Flow Rate FiO2 11/30/18 08:50 97.8 11/30/18 08:25 62 112/51 11/30/18 08:00 98.2 62 18 112/51 (71) 100 11/30/18 04:00 97.8 64 18 128/59 (82) 99 11/30/18 00:00 97.0 62 17 131/62 (85) 99 11/29/18 21:00 Nasal Cannula 2.0 11/29/18 20:10 62 123/77 11/29/18 20:00 97.7 60 18 117/51 (73) 100 11/29/18 16:00 97.5 62 19 123/77 (92) 97 11/29/18 15:18 97.7 11/29/18 12:00 97.8 65 18 119/75 (90) 96 Intake and Output 11/29/18 11/30/18 19:00 07:00 Intake Total 780 ml Output Total 400 ml Balance 780 ml -400 ml Intake Oral 480 ml IV Total 300 ml Output Urine Total 400 ml # Voids 4 3 Laboratory Tests Test 11/30/18 06:15 White Blood Count 3.4 K/UL (4.8-10.8) L Red Blood Count 3.00 M/UL (4.70-6.10) L Hemoglobin 7.5 G/DL (14.2-18.0) L Hematocrit 23.6 % (42.0-52.0) L Mean Corpuscular Volume 79 FL (80-99) L Mean Corpuscular Hemoglobin 25.0 PG (27.0-31.0) L Mean Corpuscular Hemoglobin Concent 31.8 G/DL (32.0-36.0) L Red Cell Distribution Width 24.5 % (11.6-14.8) H Platelet Count 53 K/UL (150-450) L Mean Platelet Volume 6.7 FL (6.5-10.1) Neutrophils (%) (Auto) % (45.0-75.0) Lymphocytes (%) (Auto) % (20.0-45.0) Monocytes (%) (Auto) % (1.0-10.0) Eosinophils (%) (Auto) % (0.0-3.0) Basophils (%) (Auto) % (0.0-2.0) Differential Total Cells Counted 100 Neutrophils % (Manual) 32 % (45-75) L Lymphocytes % (Manual) 51 % (20-45) H Monocytes % (Manual) 4 % (1-10) Eosinophils % (Manual) 5 % (0-3) H Basophils % (Manual) 2 % (0-2) Myelocytes % 2 % (0-0) H Blast Cells % 3 % (0-0) *H Band Neutrophils 1 % (0-8) Platelet Estimate Decreased L Platelet Morphology Normal Hypochromasia 3+ Anisocytosis 2+ Microcytosis 2+ [place] Cells 2+ Schistocytes 1+ Sodium Level 137 MMOL/L (136-145) Potassium Level 4.1 MMOL/L (3.5-5.1) Chloride Level 103 MMOL/L (98-107) Carbon Dioxide Level 27 MMOL/L (21-32) Anion Gap 7 mmol/L (5-15) Blood Urea Nitrogen 21 mg/dL (7-18) H Creatinine 1.0 MG/DL (0.55-1.30) Estimat Glomerular Filtration Rate mL/min (>60) Glucose Level 99 MG/DL (74-106) Calcium Level 8.3 MG/DL (8.5-10.1) L Height (Feet): 5 Height (Inches): 5.00 Weight (Pounds): 152 General Appearance: WD/WN, no apparent distress, alert Cardiovascular: normal rate Respiratory/Chest: normal breath sounds, no respiratory distress Abdominal Exam: normal bowel sounds, non tender, soft Extremities: normal range of motion, non-tender Jason Gray NP Nov 30, 2018 10:36
--- NOTE | 2018-11-30 10:54 | Internal Med Progress Note ---
Subjective Date of Service: Nov 30, 2018 Physician Name Nikhil West Attending Physician Abdias Hunter MD Current Medications Medications (Trade) Dose Ordered Sig/Scout Route PRN Reason Start Time Stop Time Status Last Admin Dose Admin Acetaminophen (Tylenol) 650 mg Q4H PRN ORAL Mild Pain (Pain Scale 1-3) 11/28/18 17:02 12/18/18 17:01 Acetaminophen (Tylenol) 650 mg Q4H PRN ORAL fever 11/28/18 17:02 12/18/18 17:01 Acetaminophen (Tylenol) 650 mg Q4H PRN RECTAL Mild Pain (Pain Scale 1-3) 11/28/18 17:02 12/18/18 17:01 Atorvastatin Calcium (Lipitor) 40 mg BEDTIME ORAL 11/28/18 21:00 12/18/18 20:59 11/29/18 20:09 Bisacodyl (Dulcolax) 10 mg DAILYPRN PRN RECTAL Constipation 11/28/18 17:02 12/28/18 17:01 Carvedilol (Coreg) 12.5 mg EVERY 12 HOURS ORAL 11/28/18 21:00 12/18/18 20:59 11/30/18 08:25 Dextrose (Dextrose 50%) 25 ml Q30M PRN IV Hypoglycemia 11/28/18 17:15 12/18/18 10:14 Dextrose (Dextrose 50%) 50 ml Q30M PRN IV Hypoglycemia 11/28/18 17:15 12/18/18 10:14 Docusate Sodium (Colace) 100 mg EVERY 12 HOURS ORAL 11/28/18 21:00 12/18/18 20:59 11/30/18 08:26 Escitalopram Oxalate (Lexapro) 15 mg DAILY ORAL 11/29/18 09:00 12/24/18 08:59 11/30/18 08:26 Famotidine (Pepcid) 20 mg QHS ORAL 11/30/18 21:00 12/30/18 20:59 UNV Levothyroxine Sodium (Synthroid) 25 mcg Q24H ORAL 11/29/18 06:30 12/19/18 06:29 11/30/18 05:46 Lorazepam (Ativan) 2 mg Q6H PRN ORAL For Anxiety 11/28/18 17:03 11/30/18 17:02 Magnesium Hydroxide (Mom) 30 ml HSPRN PRN ORAL Constipation 11/29/18 17:03 12/18/18 17:02 Morphine Sulfate (Morphine Sulfate) 2 mg Q4H PRN IVP Moderate Pain (Pain Scale 4-6) 11/28/18 17:03 12/03/18 17:02 11/30/18 03:07 Morphine Sulfate (Morphine Sulfate) 4 mg Q4H PRN IVP Severe Pain (Pain Scale 7-10) 11/28/18 17:30 12/03/18 13:29 11/30/18 08:20 Nitroglycerin (Ntg) 0.4 mg Q5M PRN SL Prn Chest Pain 11/28/18 17:05 12/18/18 10:14 Ondansetron HCl (Zofran) 4 mg Q6H PRN IVP Nausea & Vomiting 11/28/18 17:03 12/18/18 17:02 Pantoprazole (Protonix) 40 mg DAILY ORAL 11/29/18 09:00 12/19/18 08:59 11/30/18 08:26 Polyethylene Glycol (Miralax) 17 gm DAILYPRN PRN ORAL Constipation 11/28/18 17:04 12/28/18 17:03 Allergies: Coded Allergies: No Known Allergies (Verified , 09/12/10) ROS Limited/Unobtainable: No Constitutional: Reports: no symptoms HEENT: Reports: no symptoms Cardiovascular: Reports: chest pain Respiratory: Reports: no symptoms Gastrointestinal/Abdominal: Reports: no symptoms Genitourinary: Reports: no symptoms Neurologic/Psychiatric: Reports: no symptoms Subjective 78 YO M admitted with chest pain. Now pancytopenia and UTI. Cover for Int Med- Dr Hunter. C/O chest pain Objective Last Vital Signs Date Time Temp Pulse Resp B/P (MAP) Pulse Ox O2 Delivery O2 Flow Rate FiO2 11/30/18 08:50 97.8 11/30/18 08:25 62 112/51 11/30/18 08:00 18 100 11/29/18 21:00 Nasal Cannula 2.0 11/28/18 04:27 28 Laboratory Tests Test 11/30/18 06:15 White Blood Count 3.4 K/UL (4.8-10.8) L Red Blood Count 3.00 M/UL (4.70-6.10) L Hemoglobin 7.5 G/DL (14.2-18.0) L Hematocrit 23.6 % (42.0-52.0) L Mean Corpuscular Volume 79 FL (80-99) L Mean Corpuscular Hemoglobin 25.0 PG (27.0-31.0) L Mean Corpuscular Hemoglobin Concent 31.8 G/DL (32.0-36.0) L Red Cell Distribution Width 24.5 % (11.6-14.8) H Platelet Count 53 K/UL (150-450) L Mean Platelet Volume 6.7 FL (6.5-10.1) Neutrophils (%) (Auto) % (45.0-75.0) Lymphocytes (%) (Auto) % (20.0-45.0) Monocytes (%) (Auto) % (1.0-10.0) Eosinophils (%) (Auto) % (0.0-3.0) Basophils (%) (Auto) % (0.0-2.0) Differential Total Cells Counted 100 Neutrophils % (Manual) 32 % (45-75) L Lymphocytes % (Manual) 51 % (20-45) H Monocytes % (Manual) 4 % (1-10) Eosinophils % (Manual) 5 % (0-3) H Basophils % (Manual) 2 % (0-2) Myelocytes % 2 % (0-0) H Blast Cells % 3 % (0-0) *H Band Neutrophils 1 % (0-8) Platelet Estimate Decreased L Platelet Morphology Normal Hypochromasia 3+ Anisocytosis 2+ Microcytosis 2+ [place] Cells 2+ Schistocytes 1+ Sodium Level 137 MMOL/L (136-145) Potassium Level 4.1 MMOL/L (3.5-5.1) Chloride Level 103 MMOL/L (98-107) Carbon Dioxide Level 27 MMOL/L (21-32) Anion Gap 7 mmol/L (5-15) Blood Urea Nitrogen 21 mg/dL (7-18) H Creatinine 1.0 MG/DL (0.55-1.30) Estimat Glomerular Filtration Rate mL/min (>60) Glucose Level 99 MG/DL (74-106) Calcium Level 8.3 MG/DL (8.5-10.1) L Intake and Output 11/29/18 11/30/18 19:00 07:00 Intake Total 780 ml Output Total 400 ml Balance 780 ml -400 ml Intake Oral 480 ml IV Total 300 ml Output Urine Total 400 ml # Voids 4 3 Objective PHYSICAL EXAMINATION: GENERAL: The patient awake, responsive, no acute distress. HEAD AND NECK: Pupils are equal and reactive to light. Extraocular movements are intact. Neck was supple. No JVD LUNGS: Good air entry. No wheeze or rales. HEART: S1, S2. Distant heart sounds. No murmur or gallops. Pacemaker in left-sided chest wall. ABDOMEN: Soft, nondistended, nontender. EXTREMITIES: No cyanosis, clubbing, edema. Varicose veins, bilateral lower extremities. NEUROLOGIC: Cranial nerves II through XII grossly intact. Motor is 5/5 in all extremities. Gait is intact. RECTAL: Refused and deferred. GENITOURINARY: Refused and deferred. PSYCHIATRIC: Mood and affect is depressed. Assessment/Plan Assessment/Plan ASSESSMENT: 1. Chest pain, possible acute coronary syndrome. 2. Hypertension. 3. Dyslipidemia. 4. Congestive heart failure. 5. Coronary artery disease. 6. Sick sinus syndrome, status pacemaker. 7. UTI. 8. Pancytopenia-Severe anemia, Thrombocytopenia and leukopenia-resolving PLAN: Admit the patient to telemetry. Discussed case with Dr. Gee from Cardiology Electrophysiology. Await cardiac nuclear stress test-outpatient Dr. Luong, Pulmonary Critical Care. Urine cult=E. Coli. Continue Rocephin. DVT prophylaxis, heparin subcutaneous. Code status, Full Code. The patient is expected to be in the hospital greater than 2 days Discharge paln: [facility] S/P transfusion 2 units PRBC on 11/19/18 See Hematology consult-?acute myelocytic leukemia? Stat EKG & Troponin Nikhil West MD Nov 30, 2018 10:54
[2018-11-30 12:00] VITALS: BP 124/61
--- NOTE | 2018-11-30 13:57 | Pulmonology Progress Note ---
Assessment/Plan Problems: (1) Severe thrombocytopenia (2) ACS (acute coronary syndrome) (3) Cardiomyopathy (4) HTN (hypertension) (5) Pacemaker (6) Hypothyroidism (7) CAD (coronary artery disease) Assessment/Plan bone marrow biopsy done flow cytometry pending check electrolytes awaiting bone marrow biopsy results. flow cytometry abnormal Subjective ROS Limited/Unobtainable: No Constitutional: Reports: no symptoms HEENT: Repors: no symptoms Respiratory: Reports: no symptoms Allergies: Coded Allergies: No Known Allergies (Verified , 09/12/10) Objective Last 24 Hour Vital Signs Date Time Temp Pulse Resp B/P (MAP) Pulse Ox O2 Delivery O2 Flow Rate FiO2 11/30/18 13:33 97.8 11/30/18 12:00 98.2 65 19 124/61 (82) 97 11/30/18 09:00 Nasal Cannula 2.0 11/30/18 08:25 62 112/51 11/30/18 08:00 98.2 62 18 112/51 (71) 100 11/30/18 04:00 97.8 64 18 128/59 (82) 99 11/30/18 00:00 97.0 62 17 131/62 (85) 99 11/29/18 21:00 Nasal Cannula 2.0 11/29/18 20:10 62 123/77 11/29/18 20:00 97.7 60 18 117/51 (73) 100 11/29/18 16:00 97.5 62 19 123/77 (92) 97 11/29/18 15:18 97.7 Intake and Output 11/29/18 11/30/18 19:00 07:00 Intake Total 780 ml Output Total 400 ml Balance 780 ml -400 ml Intake Oral 480 ml IV Total 300 ml Output Urine Total 400 ml # Voids 4 3 Objective General Appearance: cachetic Lines, tubes and drains: peripheral HEENT: normocephalic, atraumatic Neck: non-tender, normal alignment Respiratory/Chest: chest wall non-tender, lungs clear Breasts: no masses Cardiovascular/Chest: normal peripheral pulses, normal rate Abdomen: normal bowel sounds, non tender Genitourinary/Rectal: normal genital exam Extremities: normal range of motion Skin Exam: normal pigmentation Neurologic: supervisor rose grading II-XII grossly normal Laboratory Tests 11/30/18 06:15: White Blood Count 3.4L, Red Blood Count 3.00L, Hemoglobin 7.5L, Hematocrit 23.6L , Mean Corpuscular Volume 79L, Mean Corpuscular Hemoglobin 25.0L, Mean Corpuscular Hemoglobin Concent 31.8L, Red Cell Distribution Width 24.5H, Platelet Count 53L, Mean Platelet Volume 6.7, Neutrophils (%) (Auto) , Lymphocytes (%) (Auto) , Monocytes (%) (Auto) , Eosinophils (%) (Auto) , Basophils (%) (Auto) , Differential Total Cells Counted 100, Neutrophils % ( Manual) 32L, Lymphocytes % (Manual) 51H, Monocytes % (Manual) 4, Eosinophils % ( Manual) 5H, Basophils % (Manual) 2, Myelocytes % 2H, Blast Cells % 3*H, Band Neutrophils 1, Other Cell Type See comments, Platelet Estimate DecreasedL, Platelet Morphology Normal, Hypochromasia 3+, Anisocytosis 2+, Microcytosis 2+, [place] Cells 2+, Schistocytes 1+, Sodium Level 137, Potassium Level 4.1, Chloride Level 103, Carbon Dioxide Level 27, Anion Gap 7, Blood Urea Nitrogen 21H, Creatinine 1.0, Estimat Glomerular Filtration Rate , Glucose Level 99, Calcium Level 8.3L, Troponin I 0.013 Current Medications Medications (Trade) Dose Ordered Sig/Scout Route PRN Reason Start Time Stop Time Status Last Admin Dose Admin Acetaminophen (Tylenol) 650 mg Q4H PRN ORAL Mild Pain (Pain Scale 1-3) 11/28/18 17:02 12/18/18 17:01 Acetaminophen (Tylenol) 650 mg Q4H PRN ORAL fever 11/28/18 17:02 12/18/18 17:01 Acetaminophen (Tylenol) 650 mg Q4H PRN RECTAL Mild Pain (Pain Scale 1-3) 11/28/18 17:02 12/18/18 17:01 Atorvastatin Calcium (Lipitor) 40 mg BEDTIME ORAL 11/28/18 21:00 12/18/18 20:59 11/29/18 20:09 Bisacodyl (Dulcolax) 10 mg DAILYPRN PRN RECTAL Constipation 11/28/18 17:02 12/28/18 17:01 Carvedilol (Coreg) 12.5 mg EVERY 12 HOURS ORAL 11/28/18 21:00 12/18/18 20:59 11/30/18 08:25 Dextrose (Dextrose 50%) 25 ml Q30M PRN IV Hypoglycemia 11/28/18 17:15 12/18/18 10:14 Dextrose (Dextrose 50%) 50 ml Q30M PRN IV Hypoglycemia 11/28/18 17:15 12/18/18 10:14 Docusate Sodium (Colace) 100 mg EVERY 12 HOURS ORAL 11/28/18 21:00 12/18/18 20:59 11/30/18 08:26 Escitalopram Oxalate (Lexapro) 15 mg DAILY ORAL 11/29/18 09:00 12/24/18 08:59 11/30/18 08:26 Famotidine (Pepcid) 20 mg QHS ORAL 11/30/18 21:00 12/30/18 20:59 Levothyroxine Sodium (Synthroid) 25 mcg Q24H ORAL 11/29/18 06:30 12/19/18 06:29 11/30/18 05:46 Lorazepam (Ativan) 2 mg Q6H PRN ORAL For Anxiety 11/28/18 17:03 11/30/18 17:02 Magnesium Hydroxide (Mom) 30 ml HSPRN PRN ORAL Constipation 11/29/18 17:03 12/18/18 17:02 Morphine Sulfate (Morphine Sulfate) 2 mg Q4H PRN IVP Moderate Pain (Pain Scale 4-6) 11/28/18 17:03 12/03/18 17:02 11/30/18 03:07 Morphine Sulfate (Morphine Sulfate) 4 mg Q4H PRN IVP Severe Pain (Pain Scale 7-10) 11/28/18 17:30 12/03/18 13:29 11/30/18 13:03 Nitroglycerin (Ntg) 0.4 mg Q5M PRN SL Prn Chest Pain 11/28/18 17:05 12/18/18 10:14 Ondansetron HCl (Zofran) 4 mg Q6H PRN IVP Nausea & Vomiting 11/28/18 17:03 12/18/18 17:02 Pantoprazole (Protonix) 40 mg DAILY ORAL 11/29/18 09:00 12/19/18 08:59 11/30/18 08:26 Polyethylene Glycol (Miralax) 17 gm DAILYPRN PRN ORAL Constipation 11/28/18 17:04 12/28/18 17:03 Chepe Luong MD Nov 30, 2018 13:57
[2018-11-30 16:00] VITALS: BP 129/60
--- NOTE | 2018-11-30 16:47 | Cardiac Electrophysiology PN ---
Assessment/Plan Assessment/Plan 1. Atypical chest pain and hx of CABG. Likely due to severe anemia. Ruled out [place]. Nuclear stress test cancelled for severe anemia. Reschedule after pancytopenia is resolved On Lipitor and Coreg. Off Aspirin and Plavix for anemia and Plt 17 only 2. Cardiomyopathy. EF now 55%. On Coreg 12.5 mg bid. Off Lisinopril and Lasix 3. Status post [place] atrial biventricular defibrillator. Interrogated and showed Nl Fx 4. Severe anemia, S/P PRBC. FU GI. 5. Pancytopenia with Platelet count of 17. Off Aspirin and PLavix S/P platelet transfusion. S/P BM biopsy 11/29/18. Plt today 57 DW RN Subjective Subjective Very weak. Had BM biopsy yesterday and now in reverse isolation. Objective Last 24 Hour Vital Signs Date Time Temp Pulse Resp B/P (MAP) Pulse Ox O2 Delivery O2 Flow Rate FiO2 11/30/18 13:33 97.8 11/30/18 12:00 98.2 65 19 124/61 (82) 97 11/30/18 09:00 Nasal Cannula 2.0 11/30/18 08:25 62 112/51 11/30/18 08:00 98.2 62 18 112/51 (71) 100 11/30/18 04:00 97.8 64 18 128/59 (82) 99 11/30/18 00:00 97.0 62 17 131/62 (85) 99 11/29/18 21:00 Nasal Cannula 2.0 11/29/18 20:10 62 123/77 11/29/18 20:00 97.7 60 18 117/51 (73) 100 Intake and Output 11/29/18 11/30/18 19:00 07:00 Intake Total 780 ml Output Total 400 ml Balance 780 ml -400 ml Intake Oral 480 ml IV Total 300 ml Output Urine Total 400 ml # Voids 4 3 Laboratory Tests Test 11/30/18 06:15 White Blood Count 3.4 K/UL (4.8-10.8) L Red Blood Count 3.00 M/UL (4.70-6.10) L Hemoglobin 7.5 G/DL (14.2-18.0) L Hematocrit 23.6 % (42.0-52.0) L Mean Corpuscular Volume 79 FL (80-99) L Mean Corpuscular Hemoglobin 25.0 PG (27.0-31.0) L Mean Corpuscular Hemoglobin Concent 31.8 G/DL (32.0-36.0) L Red Cell Distribution Width 24.5 % (11.6-14.8) H Platelet Count 53 K/UL (150-450) L Mean Platelet Volume 6.7 FL (6.5-10.1) Neutrophils (%) (Auto) % (45.0-75.0) Lymphocytes (%) (Auto) % (20.0-45.0) Monocytes (%) (Auto) % (1.0-10.0) Eosinophils (%) (Auto) % (0.0-3.0) Basophils (%) (Auto) % (0.0-2.0) Differential Total Cells Counted 100 Neutrophils % (Manual) 32 % (45-75) L Lymphocytes % (Manual) 51 % (20-45) H Monocytes % (Manual) 4 % (1-10) Eosinophils % (Manual) 5 % (0-3) H Basophils % (Manual) 2 % (0-2) Myelocytes % 2 % (0-0) H Blast Cells % 3 % (0-0) *H Band Neutrophils 1 % (0-8) Other Cell Type See comments Platelet Estimate Decreased L Platelet Morphology Normal Hypochromasia 3+ Anisocytosis 2+ Microcytosis 2+ [place] Cells 2+ Schistocytes 1+ Sodium Level 137 MMOL/L (136-145) Potassium Level 4.1 MMOL/L (3.5-5.1) Chloride Level 103 MMOL/L (98-107) Carbon Dioxide Level 27 MMOL/L (21-32) Anion Gap 7 mmol/L (5-15) Blood Urea Nitrogen 21 mg/dL (7-18) H Creatinine 1.0 MG/DL (0.55-1.30) Estimat Glomerular Filtration Rate mL/min (>60) Glucose Level 99 MG/DL (74-106) Calcium Level 8.3 MG/DL (8.5-10.1) L Troponin I 0.013 ng/mL (0.000-0.056) Objective HEAD AND NECK: No JVD. LUNGS: Coarse rhonchi. CARDIOVASCULAR: Regular S1 and S2 with no gallop or murmur. Sternotomy is intact. Defibrillator is in left subclavian. ABDOMEN: Soft. EXTREMITIES: 1+ pitting edema. Satinder Gee MD Nov 30, 2018 16:47
--- NOTE | 2018-11-30 19:43 | General Progress Note ---
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 Transfuse prn. --> Epogen or iron at this time is not particularly indicated --> Medications have been reviewed # Reticulcytosis with elevated bilirubin that is indirect --> obtain direct and indirect bilis again, trend could have liver disease --> evaluate for liver disease with hep US --> evaluate as needed with gi team, recs apprecaited #. Chest pain, possible acute coronary syndrome. --> cards recs appreciated as well as pulm --> stress test prn #. Hypertension. #. Dyslipidemia. #. Congestive heart failure. #. Coronary artery disease. #. Sick sinus syndrome, status pacemaker. #. Acute E. coli UTI. #. Hep C+++ The timing of this note does not necessarily reflect the time of the patient was seen. Greatly appreciate consultation! Subjective Constitutional: Denies: no symptoms, chills, diaphoresis, fever, malaise, weakness, other HEENT: Denies: no symptoms, eye pain, blurred vision, tearing, double vision, ear pain, ear discharge, nose pain, nose congestion, throat pain, throat swelling, mouth pain, mouth swelling, other Cardiovascular: Denies: no symptoms, chest pain, edema, irregular heart rate, lightheadedness, palpitations, syncope, other Respiratory: Denies: no symptoms, cough, orthopnea, shortness of breath, SOB with excertion, SOB at rest, sputum, stridor, wheezing, other Gastrointestinal/Abdominal: Denies: no symptoms, abdomen distended, abdominal pain, black stools, tarry stools, blood in stool, constipated, diarrhea, difficulty swallowing, nausea, poor appetite, poor fluid intake, rectal bleeding , vomiting, other Genitourinary: Denies: no symptoms, burning, discharge, frequency, flank pain, hematuria, incontinence, pain, urgency, other Neurologic/Psychiatric: Denies: no symptoms, anxiety, depressed, emotional problems, headache, numbness, paresthesia, pre-existing deficit, seizure, tingling, tremors, weakness, other Endocrine: Denies: no symptoms, excessive sweating, flushing, intolerance to cold, intolerance to heat, increased hunger, increased thirst, increased urine, unexplained weight gain, unexplained weight loss, other Allergies: Coded Allergies: No Known Allergies (Verified , 09/12/10) Subjective 11/27: no events to report, no f/c 11/28: seen by bedside, plt 65, plan for EGD and bone marrow biopsy tomorrow 11/29: BM biopsy today, no acute distress. 11/30: Had BM biopsy yesterday and now in reverse isolation. hgb 7.5, will transfuse as needed. Objective Last 24 Hour Vital Signs Date Time Temp Pulse Resp B/P (MAP) Pulse Ox O2 Delivery O2 Flow Rate FiO2 11/30/18 16:00 97.8 61 18 129/60 (83) 99 11/30/18 13:33 97.8 11/30/18 12:00 98.2 65 19 124/61 (82) 97 11/30/18 09:00 Nasal Cannula 2.0 11/30/18 08:25 62 112/51 11/30/18 08:00 98.2 62 18 112/51 (71) 100 11/30/18 04:00 97.8 64 18 128/59 (82) 99 11/30/18 00:00 97.0 62 17 131/62 (85) 99 11/29/18 21:00 Nasal Cannula 2.0 11/29/18 20:10 62 123/77 11/29/18 20:00 97.7 60 18 117/51 (73) 100 Intake and Output 11/29/18 11/30/18 18:59 06:59 Intake Total 780 ml Output Total 400 ml Balance 780 ml -400 ml Intake Oral 480 ml IV Total 300 ml Output Urine Total 400 ml # Voids 4 3 Laboratory Tests 11/30/18 06:15: White Blood Count 3.4L, Red Blood Count 3.00L, Hemoglobin 7.5L, Hematocrit 23.6L , Mean Corpuscular Volume 79L, Mean Corpuscular Hemoglobin 25.0L, Mean Corpuscular Hemoglobin Concent 31.8L, Red Cell Distribution Width 24.5H, Platelet Count 53L, Mean Platelet Volume 6.7, Neutrophils (%) (Auto) , Lymphocytes (%) (Auto) , Monocytes (%) (Auto) , Eosinophils (%) (Auto) , Basophils (%) (Auto) , Differential Total Cells Counted 100, Neutrophils % ( Manual) 32L, Lymphocytes % (Manual) 51H, Monocytes % (Manual) 4, Eosinophils % ( Manual) 5H, Basophils % (Manual) 2, Myelocytes % 2H, Blast Cells % 3*H, Band Neutrophils 1, Other Cell Type See comments, Platelet Estimate DecreasedL, Platelet Morphology Normal, Hypochromasia 3+, Anisocytosis 2+, Microcytosis 2+, [place] Cells 2+, Schistocytes 1+, Sodium Level 137, Potassium Level 4.1, Chloride Level 103, Carbon Dioxide Level 27, Anion Gap 7, Blood Urea Nitrogen 21H, Creatinine 1.0, Estimat Glomerular Filtration Rate , Glucose Level 99, Calcium Level 8.3L, Troponin I 0.013 Height (Feet): 5 Height (Inches): 5.00 Weight (Pounds): 152 Objective Sp02 EP: reviewed, normal General Appearance: well appearing, nad, alert Head: normocephalic, atraumatic Eyes: b/l eye PERRL, bilateral eye EOMI ENT: hearing grossly normal, normal pharynx Neck: full range of motion, supple, no meningismus Respiratory: chest non-tender, lungs clear, normal breath sounds Cardiovascular: regular rate, rhythm, no murmur Gastrointestinal: normal bowel sounds, non tender, no mass, no organomegaly, no bruit, non-distended Musculoskeletal: back normal, gait/station normal, normal range of motion Psychiatric: mood/affect normal Skin: warm/dry Jose Alberto España MD Nov 30, 2018 19:43
[2018-11-30 20:00] VITALS: BP 131/68
[2018-11-30] MEDS: Atorvastatin 20mg tab ORAL SCH (20:03)
[2018-12-01 00:09] VITALS: BP 127/65
[2018-12-01] MEDS: Morphine Sulfate 2mg/ml Inj(IV/IM USE ONLY) IVP PRN ×4 (00:21→15:44)
[2018-12-01 04:00] VITALS: BP 135/87
[2018-12-01] MEDS: Levothyroxine 25mcg tab ORAL SCH (06:07)
[2018-12-01 07:16] LABS: ANION GAP 5 mmol/L (5-15); BLOOD UREA NITROGEN 19 mg/dL (7-18); CALCIUM 8.7 MG/DL (8.5-10.1); CARBON DIOXIDE 28 MMOL/L (21-32); CHLORIDE 102 MMOL/L (98-107); CREATININE 0.8 MG/DL (0.55-1.30); POTASSIUM 3.9 MMOL/L (3.5-5.1); SODIUM 135 MMOL/L (136-145)
[2018-12-01 08:00] VITALS: BP 113/54
[2018-12-01] MEDS: Carvedilol 12.5mg tab ORAL SCH ×2 (08:18→21:47)
[2018-12-01] MEDS: Docusate 100mg cap ORAL SCH ×2 (08:18→21:47)
[2018-12-01] MEDS: Morphine Sulfate 4mg/ml Inj (IV USE ONLY) IVP PRN ×3 (08:19→21:48)
[2018-12-01 08:31] LABS: HEMATOCRIT 25.4 % (42.0-52.0); MEAN CORPUSCULAR VOLUME 79 FL (80-99); PLATELET COUNT 61 K/UL (150-450); RED BLOOD COUNT 3.21 M/UL (4.70-6.10); RED CELL DISTRIBUTION WIDTH 24.2 % (11.6-14.8); WHITE BLOOD COUNT 2.9 K/UL (4.8-10.8)
[2018-12-01 11:14] VITALS: BP 120/60
--- NOTE | 2018-12-01 11:22 | GI Progress Note ---
Assessment/Plan Problems: (1) History of CVA (cerebrovascular accident) ICD Codes: Z86.73 - Personal history of transient ischemic attack (TIA), and cerebral infarction without residual deficits SNOMED: 442413337 (2) Severe anemia ICD Codes: D64.9 - Anemia, unspecified SNOMED: 734376885 (3) Abdominal pain ICD Codes: R10.9 - Unspecified abdominal pain SNOMED: 04775056 (4) GERD (gastroesophageal reflux disease) ICD Codes: K21.9 - Gastro-esophageal reflux disease without esophagitis SNOMED: 754183522 Status: stable Status Narrative Discussed with Dr. Mcguire. Assessment/Plan SUMMARY OF FINDINGS: 1. Gastritis. 2. A 6 cm hiatal hernia. RECOMMENDATIONS: Follow up biopsy results and treat accordingly. The patient is going for bone marrow biopsy. We will follow. monitor H&H, prn transfusions. bowel regime ppi, add H2B qhs fu labs The patient was seen and examined at bedside and all new and available data was reviewed in the patients chart. I agree with the above findings, impression and plan. (Patient seen earlier today. Signature stamp does not reflect patient encounter time.). - Richie Mcguire MD Subjective Gastrointestinal/Abdominal: Reports: no symptoms Objective Last 24 Hour Vital Signs Date Time Temp Pulse Resp B/P (MAP) Pulse Ox O2 Delivery O2 Flow Rate FiO2 12/01/18 11:14 97.7 60 16 120/60 (80) 100 12/01/18 09:00 Nasal Cannula 2.0 12/01/18 08:49 98.1 12/01/18 08:18 61 113/54 12/01/18 08:00 98.1 61 16 113/54 (73) 99 12/01/18 04:00 99.0 65 18 135/87 (103) 100 12/01/18 00:09 98.7 60 16 127/65 (85) 98 11/30/18 21:00 Nasal Cannula 2.0 11/30/18 20:19 Nasal Cannula 2.0 28 11/30/18 20:19 98 Nasal Cannula 2.0 28 11/30/18 20:03 61 129/60 11/30/18 20:00 98.0 63 19 131/68 (89) 99 11/30/18 16:00 97.8 61 18 129/60 (83) 99 11/30/18 12:00 98.2 65 19 124/61 (82) 97 Intake and Output 11/30/18 12/01/18 19:00 07:00 Intake Total 480 ml 300 ml Output Total 270 ml Balance 480 ml 30 ml Intake Oral 480 ml 300 ml Output Urine Total 270 ml # Voids 4 Laboratory Tests Test 12/01/18 06:30 12/01/18 08:06 Sodium Level 135 MMOL/L (136-145) L Potassium Level 3.9 MMOL/L (3.5-5.1) Chloride Level 102 MMOL/L (98-107) Carbon Dioxide Level 28 MMOL/L (21-32) Anion Gap 5 mmol/L (5-15) Blood Urea Nitrogen 19 mg/dL (7-18) H Creatinine 0.8 MG/DL (0.55-1.30) Estimat Glomerular Filtration Rate mL/min (>60) Glucose Level 87 MG/DL (74-106) Calcium Level 8.7 MG/DL (8.5-10.1) Troponin I 0.004 ng/mL (0.000-0.056) White Blood Count 2.9 K/UL (4.8-10.8) L Red Blood Count 3.21 M/UL (4.70-6.10) L Hemoglobin 8.0 G/DL (14.2-18.0) L Hematocrit 25.4 % (42.0-52.0) L Mean Corpuscular Volume 79 FL (80-99) L Mean Corpuscular Hemoglobin 24.8 PG (27.0-31.0) L Mean Corpuscular Hemoglobin Concent 31.3 G/DL (32.0-36.0) L Red Cell Distribution Width 24.2 % (11.6-14.8) H Platelet Count 61 K/UL (150-450) L Mean Platelet Volume 7.7 FL (6.5-10.1) Neutrophils (%) (Auto) % (45.0-75.0) Lymphocytes (%) (Auto) % (20.0-45.0) Monocytes (%) (Auto) % (1.0-10.0) Eosinophils (%) (Auto) % (0.0-3.0) Basophils (%) (Auto) % (0.0-2.0) Differential Total Cells Counted 100 Neutrophils % (Manual) 19 % (45-75) L Lymphocytes % (Manual) 68 % (20-45) H Monocytes % (Manual) 7 % (1-10) Eosinophils % (Manual) 6 % (0-3) H Basophils % (Manual) 0 % (0-2) Band Neutrophils 0 % (0-8) Platelet Estimate Decreased L Platelet Morphology Normal Hypochromasia 2+ Anisocytosis 3+ Microcytosis 2+ Schistocytes 1+ Height (Feet): 5 Height (Inches): 5.00 Weight (Pounds): 152 General Appearance: WD/WN, no apparent distress, alert Cardiovascular: normal rate Respiratory/Chest: normal breath sounds, no respiratory distress Abdominal Exam: normal bowel sounds, non tender, soft Extremities: normal range of motion, non-tender Jason Gray NP Dec 01, 2018 11:22
--- NOTE | 2018-12-01 11:54 | Pulmonology Progress Note ---
Assessment/Plan Problems: (1) Severe thrombocytopenia (2) ACS (acute coronary syndrome) (3) Cardiomyopathy (4) HTN (hypertension) (5) Pacemaker (6) Hypothyroidism (7) CAD (coronary artery disease) Assessment/Plan bone marrow biopsy done, results pending flow cytometry pending PLT stable check electrolytes awaiting bone marrow biopsy results. flow cytometry abnormal Subjective ROS Limited/Unobtainable: No Constitutional: Reports: no symptoms HEENT: Repors: no symptoms Allergies: Coded Allergies: No Known Allergies (Verified , 09/12/10) Objective Last 24 Hour Vital Signs Date Time Temp Pulse Resp B/P (MAP) Pulse Ox O2 Delivery O2 Flow Rate FiO2 12/01/18 11:14 97.7 60 16 120/60 (80) 100 12/01/18 09:00 Nasal Cannula 2.0 12/01/18 08:49 98.1 12/01/18 08:18 61 113/54 12/01/18 08:00 98.1 61 16 113/54 (73) 99 12/01/18 04:00 99.0 65 18 135/87 (103) 100 12/01/18 00:09 98.7 60 16 127/65 (85) 98 11/30/18 21:00 Nasal Cannula 2.0 11/30/18 20:19 Nasal Cannula 2.0 28 11/30/18 20:19 98 Nasal Cannula 2.0 28 11/30/18 20:03 61 129/60 11/30/18 20:00 98.0 63 19 131/68 (89) 99 11/30/18 16:00 97.8 61 18 129/60 (83) 99 11/30/18 12:00 98.2 65 19 124/61 (82) 97 Intake and Output 11/30/18 12/01/18 19:00 07:00 Intake Total 480 ml 300 ml Output Total 270 ml Balance 480 ml 30 ml Intake Oral 480 ml 300 ml Output Urine Total 270 ml # Voids 4 Objective General Appearance: cachetic Lines, tubes and drains: peripheral HEENT: normocephalic, atraumatic Neck: non-tender, normal alignment Respiratory/Chest: chest wall non-tender, lungs clear Breasts: no masses Cardiovascular/Chest: normal peripheral pulses, normal rate Abdomen: normal bowel sounds, non tender Genitourinary/Rectal: normal genital exam Extremities: normal range of motion Skin Exam: normal pigmentation 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 Laboratory Tests 12/01/18 06:30: Sodium Level 135L, Potassium Level 3.9, Chloride Level 102, Carbon Dioxide Level 28, Anion Gap 5, Blood Urea Nitrogen 19H, Creatinine 0.8, Estimat Glomerular Filtration Rate , Glucose Level 87, Calcium Level 8.7, Troponin I 0.004 12/01/18 08:06: White Blood Count 2.9L, Red Blood Count 3.21L, Hemoglobin 8.0L, Hematocrit 25.4L , Mean Corpuscular Volume 79L, Mean Corpuscular Hemoglobin 24.8L, Mean Corpuscular Hemoglobin Concent 31.3L, Red Cell Distribution Width 24.2H, Platelet Count 61L, Mean Platelet Volume 7.7, Neutrophils (%) (Auto) , Lymphocytes (%) (Auto) , Monocytes (%) (Auto) , Eosinophils (%) (Auto) , Basophils (%) (Auto) , Differential Total Cells Counted 100, Neutrophils % ( Manual) 19L, Lymphocytes % (Manual) 68H, Monocytes % (Manual) 7, Eosinophils % ( Manual) 6H, Basophils % (Manual) 0, Band Neutrophils 0, Platelet Estimate DecreasedL, Platelet Morphology Normal, Hypochromasia 2+, Anisocytosis 3+, Microcytosis 2+, Schistocytes 1+ Current Medications Medications (Trade) Dose Ordered Sig/Scout Route PRN Reason Start Time Stop Time Status Last Admin Dose Admin Acetaminophen (Tylenol) 650 mg Q4H PRN ORAL Mild Pain (Pain Scale 1-3) 11/28/18 17:02 12/18/18 17:01 Acetaminophen (Tylenol) 650 mg Q4H PRN ORAL fever 11/28/18 17:02 12/18/18 17:01 Acetaminophen (Tylenol) 650 mg Q4H PRN RECTAL Mild Pain (Pain Scale 1-3) 11/28/18 17:02 12/18/18 17:01 Atorvastatin Calcium (Lipitor) 40 mg BEDTIME ORAL 11/28/18 21:00 12/18/18 20:59 11/30/18 20:03 Bisacodyl (Dulcolax) 10 mg DAILYPRN PRN RECTAL Constipation 11/28/18 17:02 12/28/18 17:01 Carvedilol (Coreg) 12.5 mg EVERY 12 HOURS ORAL 11/28/18 21:00 12/18/18 20:59 12/01/18 08:18 Dextrose (Dextrose 50%) 25 ml Q30M PRN IV Hypoglycemia 11/28/18 17:15 12/18/18 10:14 Dextrose (Dextrose 50%) 50 ml Q30M PRN IV Hypoglycemia 11/28/18 17:15 12/18/18 10:14 Docusate Sodium (Colace) 100 mg EVERY 12 HOURS ORAL 11/28/18 21:00 12/18/18 20:59 12/01/18 08:18 Escitalopram Oxalate (Lexapro) 15 mg DAILY ORAL 11/29/18 09:00 12/24/18 08:59 12/01/18 08:17 Famotidine (Pepcid) 20 mg QHS ORAL 11/30/18 21:00 12/30/18 20:59 11/30/18 21:14 Levothyroxine Sodium (Synthroid) 25 mcg Q24H ORAL 11/29/18 06:30 12/19/18 06:29 12/01/18 06:07 Magnesium Hydroxide (Mom) 30 ml HSPRN PRN ORAL Constipation 11/29/18 17:03 12/18/18 17:02 Morphine Sulfate (Morphine Sulfate) 2 mg Q4H PRN IVP Moderate Pain (Pain Scale 4-6) 11/28/18 17:03 12/03/18 17:02 12/01/18 11:10 Morphine Sulfate (Morphine Sulfate) 4 mg Q4H PRN IVP Severe Pain (Pain Scale 7-10) 11/28/18 17:30 12/03/18 13:29 12/01/18 08:19 Nitroglycerin (Ntg) 0.4 mg Q5M PRN SL Prn Chest Pain 11/28/18 17:05 12/18/18 10:14 Ondansetron HCl (Zofran) 4 mg Q6H PRN IVP Nausea & Vomiting 11/28/18 17:03 12/18/18 17:02 Pantoprazole (Protonix) 40 mg DAILY ORAL 11/29/18 09:00 12/19/18 08:59 12/01/18 08:18 Polyethylene Glycol (Miralax) 17 gm DAILYPRN PRN ORAL Constipation 11/28/18 17:04 12/28/18 17:03 Chepe Luong MD Dec 01, 2018 11:54
--- NOTE | 2018-12-01 13:14 | Endoscopy Procedure Note ---
Endoscopy Procedure Note General Indication for Procedure: GERD Procedures Performed: EGD Operative Findings/Diagnosis: gastritis,HH Specimen: yes Pt Tolerated Procedure Well: Yes Estimated Blood Loss: none Anesthesia Anesthesiologist: ruchi Anesthesia: MAC Inserted Devices Implant(s) used?: No GI Core Measures 50 yrs or older w/o bx or poly: Not Applicable 10yrs. F/U not recommended: Not Applicable Richie Mcguire MD Dec 01, 2018 13:14
[2018-12-01 15:43] VITALS: BP 115/61
--- NOTE | 2018-12-01 17:23 | Internal Med Progress Note ---
Subjective Date of Service: Dec 01, 2018 Physician Name Nikhil West Attending Physician Abdias Hunter MD Current Medications Medications (Trade) Dose Ordered Sig/Scout Route PRN Reason Start Time Stop Time Status Last Admin Dose Admin Acetaminophen (Tylenol) 650 mg Q4H PRN ORAL Mild Pain (Pain Scale 1-3) 11/28/18 17:02 12/18/18 17:01 Acetaminophen (Tylenol) 650 mg Q4H PRN ORAL fever 11/28/18 17:02 12/18/18 17:01 Acetaminophen (Tylenol) 650 mg Q4H PRN RECTAL Mild Pain (Pain Scale 1-3) 11/28/18 17:02 12/18/18 17:01 Atorvastatin Calcium (Lipitor) 40 mg BEDTIME ORAL 11/28/18 21:00 12/18/18 20:59 11/30/18 20:03 Bisacodyl (Dulcolax) 10 mg DAILYPRN PRN RECTAL Constipation 11/28/18 17:02 12/28/18 17:01 Carvedilol (Coreg) 12.5 mg EVERY 12 HOURS ORAL 11/28/18 21:00 12/18/18 20:59 12/01/18 08:18 Dextrose (Dextrose 50%) 25 ml Q30M PRN IV Hypoglycemia 11/28/18 17:15 12/18/18 10:14 Dextrose (Dextrose 50%) 50 ml Q30M PRN IV Hypoglycemia 11/28/18 17:15 12/18/18 10:14 Docusate Sodium (Colace) 100 mg EVERY 12 HOURS ORAL 11/28/18 21:00 12/18/18 20:59 12/01/18 08:18 Escitalopram Oxalate (Lexapro) 15 mg DAILY ORAL 11/29/18 09:00 12/24/18 08:59 12/01/18 08:17 Famotidine (Pepcid) 20 mg QHS ORAL 11/30/18 21:00 12/30/18 20:59 11/30/18 21:14 Levothyroxine Sodium (Synthroid) 25 mcg Q24H ORAL 11/29/18 06:30 12/19/18 06:29 12/01/18 06:07 Magnesium Hydroxide (Mom) 30 ml HSPRN PRN ORAL Constipation 11/29/18 17:03 12/18/18 17:02 Morphine Sulfate (Morphine Sulfate) 2 mg Q4H PRN IVP Moderate Pain (Pain Scale 4-6) 11/28/18 17:03 12/03/18 17:02 12/01/18 15:44 Morphine Sulfate (Morphine Sulfate) 4 mg Q4H PRN IVP Severe Pain (Pain Scale 7-10) 11/28/18 17:30 12/03/18 13:29 12/01/18 12:32 Nitroglycerin (Ntg) 0.4 mg Q5M PRN SL Prn Chest Pain 11/28/18 17:05 12/18/18 10:14 Ondansetron HCl (Zofran) 4 mg Q6H PRN IVP Nausea & Vomiting 11/28/18 17:03 12/18/18 17:02 Pantoprazole (Protonix) 40 mg DAILY ORAL 11/29/18 09:00 12/19/18 08:59 12/01/18 08:18 Polyethylene Glycol (Miralax) 17 gm DAILYPRN PRN ORAL Constipation 11/28/18 17:04 12/28/18 17:03 Allergies: Coded Allergies: No Known Allergies (Verified , 09/12/10) ROS Limited/Unobtainable: No Constitutional: Reports: no symptoms HEENT: Reports: no symptoms Cardiovascular: Reports: no symptoms Respiratory: Reports: no symptoms Gastrointestinal/Abdominal: Reports: no symptoms Genitourinary: Reports: no symptoms Neurologic/Psychiatric: Reports: no symptoms Subjective 78 YO M admitted with chest pain. Now pancytopenia and UTI. Cover for Int [facility]- Dr Hunter. C/O chest pain Objective Last Vital Signs Date Time Temp Pulse Resp B/P (MAP) Pulse Ox O2 Delivery O2 Flow Rate FiO2 12/01/18 15:43 97.7 60 16 115/61 (79) 100 12/01/18 09:00 Nasal Cannula 2.0 11/30/18 20:19 28 Laboratory Tests Test 12/01/18 06:30 12/01/18 08:06 Sodium Level 135 MMOL/L (136-145) L Potassium Level 3.9 MMOL/L (3.5-5.1) Chloride Level 102 MMOL/L (98-107) Carbon Dioxide Level 28 MMOL/L (21-32) Anion Gap 5 mmol/L (5-15) Blood Urea Nitrogen 19 mg/dL (7-18) H Creatinine 0.8 MG/DL (0.55-1.30) Estimat Glomerular Filtration Rate mL/min (>60) Glucose Level 87 MG/DL (74-106) Calcium Level 8.7 MG/DL (8.5-10.1) Troponin I 0.004 ng/mL (0.000-0.056) White Blood Count 2.9 K/UL (4.8-10.8) L Red Blood Count 3.21 M/UL (4.70-6.10) L Hemoglobin 8.0 G/DL (14.2-18.0) L Hematocrit 25.4 % (42.0-52.0) L Mean Corpuscular Volume 79 FL (80-99) L Mean Corpuscular Hemoglobin 24.8 PG (27.0-31.0) L Mean Corpuscular Hemoglobin Concent 31.3 G/DL (32.0-36.0) L Red Cell Distribution Width 24.2 % (11.6-14.8) H Platelet Count 61 K/UL (150-450) L Mean Platelet Volume 7.7 FL (6.5-10.1) Neutrophils (%) (Auto) % (45.0-75.0) Lymphocytes (%) (Auto) % (20.0-45.0) Monocytes (%) (Auto) % (1.0-10.0) Eosinophils (%) (Auto) % (0.0-3.0) Basophils (%) (Auto) % (0.0-2.0) Differential Total Cells Counted 100 Neutrophils % (Manual) 19 % (45-75) L Lymphocytes % (Manual) 68 % (20-45) H Monocytes % (Manual) 7 % (1-10) Eosinophils % (Manual) 6 % (0-3) H Basophils % (Manual) 0 % (0-2) Band Neutrophils 0 % (0-8) Platelet Estimate Decreased L Platelet Morphology Normal Hypochromasia 2+ Anisocytosis 3+ Microcytosis 2+ Schistocytes 1+ Intake and Output 11/30/18 12/01/18 19:00 07:00 Intake Total 480 ml 300 ml Output Total 270 ml Balance 480 ml 30 ml Intake Oral 480 ml 300 ml Output Urine Total 270 ml # Voids 4 Objective PHYSICAL EXAMINATION: GENERAL: The patient awake, responsive, no acute distress. HEAD AND NECK: Pupils are equal and reactive to light. Extraocular movements are intact. Neck was supple. No JVD LUNGS: Good air entry. No wheeze or rales. HEART: S1, S2. Distant heart sounds. No murmur or gallops. Pacemaker in left-sided chest wall. ABDOMEN: Soft, nondistended, nontender. EXTREMITIES: No cyanosis, clubbing, edema. Varicose veins, bilateral lower extremities. NEUROLOGIC: Cranial nerves II through XII grossly intact. Motor is 5/5 in all extremities. Gait is intact. RECTAL: Refused and deferred. GENITOURINARY: Refused and deferred. PSYCHIATRIC: Mood and affect is depressed. Assessment/Plan Assessment/Plan ASSESSMENT: 1. Chest pain, possible acute coronary syndrome. 2. Hypertension. 3. Dyslipidemia. 4. Congestive heart failure. 5. Coronary artery disease. 6. Sick sinus syndrome, status pacemaker. 7. UTI. 8. Pancytopenia-Severe anemia, Thrombocytopenia and leukopenia-resolving PLAN: Admit the patient to telemetry. Discussed case with Dr. Gee from Cardiology Electrophysiology. Await cardiac nuclear stress test-outpatient Dr. Luong, Pulmonary Critical Care. Urine cult=E. Coli. Continue Rocephin. DVT prophylaxis, heparin subcutaneous. Code status, Full Code. The patient is expected to be in the hospital greater than 2 days Discharge paln: [facility] S/P transfusion 2 units PRBC on 11/19/18 See Hematology consult-?acute myelocytic leukemia? Nikhil West MD Dec 01, 2018 17:23
--- NOTE | 2018-12-01 17:28 | Cardiac Electrophysiology PN ---
Assessment/Plan Assessment/Plan 1. Atypical chest pain and hx of CABG. Likely due to severe anemia. Ruled out [place]. Nuclear stress test cancelled for severe anemia. Reschedule after pancytopenia is resolved On Lipitor and Coreg. Off Aspirin and Plavix for anemia and Plt 17 only 2. Cardiomyopathy. EF now 55%. On Coreg 12.5 mg bid. Off Lisinopril and Lasix 3. Status post [facility] atrial biventricular defibrillator. Interrogated and showed Nl Fx 4. Severe anemia, S/P PRBC. FU GI. 5. Pancytopenia with Platelet count of 17. Off Aspirin and PLavix S/P platelet transfusion. S/P BM biopsy 11/29/18. Plt today 61 DW RN Subjective Subjective Very weak. Off and on asking for morphine for CP. Objective Last 24 Hour Vital Signs Date Time Temp Pulse Resp B/P (MAP) Pulse Ox O2 Delivery O2 Flow Rate FiO2 12/01/18 15:43 97.7 60 16 115/61 (79) 100 12/01/18 13:02 97.7 12/01/18 11:40 97.7 12/01/18 11:14 97.7 60 16 120/60 (80) 100 12/01/18 09:00 Nasal Cannula 2.0 12/01/18 08:18 61 113/54 12/01/18 08:00 98.1 61 16 113/54 (73) 99 12/01/18 04:00 99.0 65 18 135/87 (103) 100 12/01/18 00:09 98.7 60 16 127/65 (85) 98 11/30/18 21:00 Nasal Cannula 2.0 11/30/18 20:19 Nasal Cannula 2.0 28 11/30/18 20:19 98 Nasal Cannula 2.0 28 11/30/18 20:03 61 129/60 11/30/18 20:00 98.0 63 19 131/68 (89) 99 Intake and Output 11/30/18 12/01/18 19:00 07:00 Intake Total 480 ml 300 ml Output Total 270 ml Balance 480 ml 30 ml Intake Oral 480 ml 300 ml Output Urine Total 270 ml # Voids 4 Laboratory Tests Test 12/01/18 06:30 12/01/18 08:06 Sodium Level 135 MMOL/L (136-145) L Potassium Level 3.9 MMOL/L (3.5-5.1) Chloride Level 102 MMOL/L (98-107) Carbon Dioxide Level 28 MMOL/L (21-32) Anion Gap 5 mmol/L (5-15) Blood Urea Nitrogen 19 mg/dL (7-18) H Creatinine 0.8 MG/DL (0.55-1.30) Estimat Glomerular Filtration Rate mL/min (>60) Glucose Level 87 MG/DL (74-106) Calcium Level 8.7 MG/DL (8.5-10.1) Troponin I 0.004 ng/mL (0.000-0.056) White Blood Count 2.9 K/UL (4.8-10.8) L Red Blood Count 3.21 M/UL (4.70-6.10) L Hemoglobin 8.0 G/DL (14.2-18.0) L Hematocrit 25.4 % (42.0-52.0) L Mean Corpuscular Volume 79 FL (80-99) L Mean Corpuscular Hemoglobin 24.8 PG (27.0-31.0) L Mean Corpuscular Hemoglobin Concent 31.3 G/DL (32.0-36.0) L Red Cell Distribution Width 24.2 % (11.6-14.8) H Platelet Count 61 K/UL (150-450) L Mean Platelet Volume 7.7 FL (6.5-10.1) Neutrophils (%) (Auto) % (45.0-75.0) Lymphocytes (%) (Auto) % (20.0-45.0) Monocytes (%) (Auto) % (1.0-10.0) Eosinophils (%) (Auto) % (0.0-3.0) Basophils (%) (Auto) % (0.0-2.0) Differential Total Cells Counted 100 Neutrophils % (Manual) 19 % (45-75) L Lymphocytes % (Manual) 68 % (20-45) H Monocytes % (Manual) 7 % (1-10) Eosinophils % (Manual) 6 % (0-3) H Basophils % (Manual) 0 % (0-2) Band Neutrophils 0 % (0-8) Platelet Estimate Decreased L Platelet Morphology Normal Hypochromasia 2+ Anisocytosis 3+ Microcytosis 2+ Schistocytes 1+ Objective HEAD AND NECK: No JVD. LUNGS: Coarse rhonchi. CARDIOVASCULAR: Regular S1 and S2 with no gallop or murmur. Sternotomy is intact. Defibrillator is in left subclavian. ABDOMEN: Soft. EXTREMITIES: 1+ pitting edema. Satinder Gee MD Dec 01, 2018 17:28
[2018-12-01] MEDS: Nitroglycerin Subl 0.4mg tab SL PRN ×3 (18:29→18:39)
[2018-12-01 20:00] VITALS: BP 122/66
--- NOTE | 2018-12-01 20:52 | General Progress Note ---
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 Initially presented with severe Pancytopenia -- multiple etiologies could be related to underlying liver disease , medication-induced, infection versus viral syndrome, us reviewed no significant liver disease though is noted, on liptior and other meds reviewed, also could be due to hep C+++ --> bone marrow bipsy/aspiration report reviewed and concerning for LEUKEMIA with 8.7% myeloblasts, may need outpatient followup with Vidaza (IV or SQ) hypomethylating agent --> Continue to monitor for improvement, trend cbc --> HIV is negative, but hep C++++ --> US abd ordered to r/o cirrhosis and hsm and is negative for those --> reverse isolation if ANC is <2000 --> Give neupogen if ANC <1000 --> Transfuse if hgb <7, with 1 unit prbc --> medications have been reviewed as well --> either outpatient stress test per cards # Anemia of chronic disease, some minor hemolysis is noted --> Anemia workup has been ordered/reviewed,bertha test is negative, retic reviewed --> Hgb goal >7. Transfuse prn. --> Epogen or iron at this time is not particularly indicated --> Medications have been reviewed # Reticulcytosis with elevated bilirubin that is indirect --> reviewed direct and indirect bilis again, trend could have liver disease --> liver US shows no significant cirrhosis --> evaluate as needed with gi team, recs apprecaited #. Chest pain, possible acute coronary syndrome. --> cards recs appreciated as well as pulm --> stress test prn #. Hypertension. #. Dyslipidemia. #. Congestive heart failure. #. Coronary artery disease. #. Sick sinus syndrome, status pacemaker. #. Acute E. coli UTI. #. Hep C+++ The timing of this note does not necessarily reflect the time of the patient was seen. Greatly appreciate consultation! Subjective Constitutional: Denies: no symptoms, chills, diaphoresis, fever, malaise, weakness, other HEENT: Denies: no symptoms, eye pain, blurred vision, tearing, double vision, ear pain, ear discharge, nose pain, nose congestion, throat pain, throat swelling, mouth pain, mouth swelling, other Cardiovascular: Denies: no symptoms, chest pain, edema, irregular heart rate, lightheadedness, palpitations, syncope, other Respiratory: Denies: no symptoms, cough, orthopnea, shortness of breath, SOB with excertion, SOB at rest, sputum, stridor, wheezing, other Genitourinary: Denies: no symptoms, burning, discharge, frequency, flank pain, hematuria, incontinence, pain, urgency, other Neurologic/Psychiatric: Denies: no symptoms, anxiety, depressed, emotional problems, headache, numbness, paresthesia, pre-existing deficit, seizure, tingling, tremors, weakness, other Endocrine: Denies: no symptoms, excessive sweating, flushing, intolerance to cold, intolerance to heat, increased hunger, increased thirst, increased urine, unexplained weight gain, unexplained weight loss, other Hematologic/Lymphatic: Denies: no symptoms, anemia, easy bleeding, easy bruising, other Allergies: Coded Allergies: No Known Allergies (Verified , 09/12/10) Subjective 11/27: no events to report, no f/c 11/28: seen by bedside, plt 65, plan for EGD and bone marrow biopsy tomorrow 11/29: BM biopsy today, no acute distress. 11/30: Had BM biopsy yesterday and now in reverse isolation. hgb 7.5, will transfuse as needed. 12/01: seen by bedside, plt remains low, awaiting bone marrow biopsy results. Objective Last 24 Hour Vital Signs Date Time Temp Pulse Resp B/P (MAP) Pulse Ox O2 Delivery O2 Flow Rate FiO2 12/01/18 18:39 115/61 12/01/18 18:34 115/61 12/01/18 18:29 115/61 12/01/18 16:14 97.7 12/01/18 15:43 97.7 60 16 115/61 (79) 100 12/01/18 13:02 97.7 12/01/18 11:14 97.7 60 16 120/60 (80) 100 12/01/18 09:00 Nasal Cannula 2.0 12/01/18 08:18 61 113/54 12/01/18 08:00 98.1 61 16 113/54 (73) 99 12/01/18 04:00 99.0 65 18 135/87 (103) 100 12/01/18 00:09 98.7 60 16 127/65 (85) 98 11/30/18 21:00 Nasal Cannula 2.0 Intake and Output 11/30/18 12/01/18 19:00 07:00 Intake Total 480 ml 300 ml Output Total 270 ml Balance 480 ml 30 ml Intake Oral 480 ml 300 ml Output Urine Total 270 ml # Voids 4 Laboratory Tests 12/01/18 06:30: Sodium Level 135L, Potassium Level 3.9, Chloride Level 102, Carbon Dioxide Level 28, Anion Gap 5, Blood Urea Nitrogen 19H, Creatinine 0.8, Estimat Glomerular Filtration Rate , Glucose Level 87, Calcium Level 8.7, Troponin I 0.004 12/01/18 08:06: White Blood Count 2.9L, Red Blood Count 3.21L, Hemoglobin 8.0L, Hematocrit 25.4L , Mean Corpuscular Volume 79L, Mean Corpuscular Hemoglobin 24.8L, Mean Corpuscular Hemoglobin Concent 31.3L, Red Cell Distribution Width 24.2H, Platelet Count 61L, Mean Platelet Volume 7.7, Neutrophils (%) (Auto) , Lymphocytes (%) (Auto) , Monocytes (%) (Auto) , Eosinophils (%) (Auto) , Basophils (%) (Auto) , Differential Total Cells Counted 100, Neutrophils % ( Manual) 19L, Lymphocytes % (Manual) 68H, Monocytes % (Manual) 7, Eosinophils % ( Manual) 6H, Basophils % (Manual) 0, Band Neutrophils 0, Platelet Estimate DecreasedL, Platelet Morphology Normal, Hypochromasia 2+, Anisocytosis 3+, Microcytosis 2+, Schistocytes 1+ Height (Feet): 5 Height (Inches): 5.00 Weight (Pounds): 152 Objective Sp02 EP: reviewed, normal General Appearance: well appearing, nad, alert Head: normocephalic, atraumatic Eyes: b/l eye PERRL, bilateral eye EOMI ENT: hearing grossly normal, normal pharynx Neck: full range of motion, supple, no meningismus Respiratory: chest non-tender, lungs clear, normal breath sounds Cardiovascular: regular rate, rhythm, no murmur Gastrointestinal: normal bowel sounds, non tender, no mass, no organomegaly, no bruit, non-distended Musculoskeletal: back normal, gait/station normal, normal range of motion Psychiatric: mood/affect normal Skin: warm/dry Jose Alberto España MD Dec 01, 2018 20:52
[2018-12-01] MEDS: Atorvastatin 20mg tab ORAL SCH (21:47)
[2018-12-02 00:20] VITALS: BP 112/57
[2018-12-02] MEDS: Morphine Sulfate 4mg/ml Inj (IV USE ONLY) IVP PRN ×5 (02:28→20:33)
[2018-12-02 04:37] VITALS: BP 138/71
[2018-12-02] MEDS: Levothyroxine 25mcg tab ORAL SCH (05:38)
[2018-12-02 07:28] LABS: ANION GAP 6 mmol/L (5-15); BLOOD UREA NITROGEN 22 mg/dL (7-18); CALCIUM 8.7 MG/DL (8.5-10.1); CARBON DIOXIDE 29 MMOL/L (21-32); CHLORIDE 100 MMOL/L (98-107); CREATININE 1.1 MG/DL (0.55-1.30); POTASSIUM 3.8 MMOL/L (3.5-5.1); SODIUM 135 MMOL/L (136-145)
[2018-12-02 07:53] LABS: HEMATOCRIT 22.7 % (42.0-52.0); HEMOGLOBIN 7.3 G/DL (14.2-18.0); MEAN CORPUSCULAR VOLUME 77 FL (80-99); PLATELET COUNT 50 K/UL (150-450); RED BLOOD COUNT 2.96 M/UL (4.70-6.10); RED CELL DISTRIBUTION WIDTH 24.3 % (11.6-14.8); WHITE BLOOD COUNT 2.7 K/UL (4.8-10.8)
[2018-12-02 08:00] VITALS: BP 118/57
[2018-12-02] MEDS: Docusate 100mg cap ORAL SCH ×2 (09:00→20:32)
[2018-12-02] MEDS: Carvedilol 12.5mg tab ORAL SCH ×2 (09:00→20:31)
--- NOTE | 2018-12-02 11:26 | GI Progress Note ---
Assessment/Plan Problems: (1) History of CVA (cerebrovascular accident) ICD Codes: Z86.73 - Personal history of transient ischemic attack (TIA), and cerebral infarction without residual deficits SNOMED: 670188493 (2) Severe anemia ICD Codes: D64.9 - Anemia, unspecified SNOMED: 351606207 (3) Abdominal pain ICD Codes: R10.9 - Unspecified abdominal pain SNOMED: 68692558 (4) GERD (gastroesophageal reflux disease) ICD Codes: K21.9 - Gastro-esophageal reflux disease without esophagitis SNOMED: 583529913 Status: stable, unchanged Status Narrative Discussed with Dr. Mcguire Assessment/Plan SUMMARY OF FINDINGS: 1. Gastritis. 2. A 6 cm hiatal hernia. RECOMMENDATIONS: Follow up biopsy results and treat accordingly. The patient is going for bone marrow biopsy. We will follow. monitor H&H, prn transfusions. OB stool uncollected bowel regime ppi, add H2B qhs fu labs Outpatient hep C treatment The patient was seen and examined at bedside and all new and available data was reviewed in the patients chart. I agree with the above findings, impression and plan. (Patient seen earlier today. Signature stamp does not reflect patient encounter time.). - Richie Mcguire MD Subjective Gastrointestinal/Abdominal: Reports: no symptoms Subjective Overall improved Objective Last 24 Hour Vital Signs Date Time Temp Pulse Resp B/P (MAP) Pulse Ox O2 Delivery O2 Flow Rate FiO2 12/02/18 09:00 61 118/57 12/02/18 09:00 Nasal Cannula 2.0 12/02/18 08:54 Nasal Cannula 2.0 28 12/02/18 08:54 97 Nasal Cannula 2.0 28 12/02/18 08:00 98.1 61 17 118/57 (77) 100 12/02/18 07:09 97.8 12/02/18 04:37 97.8 63 18 138/71 (93) 63 12/02/18 00:20 97.2 66 18 112/57 (75) 97 12/01/18 21:48 Nasal Cannula 2.0 12/01/18 21:47 62 122/66 12/01/18 20:00 98.4 62 18 122/66 (84) 98 12/01/18 18:39 115/61 12/01/18 18:34 115/61 12/01/18 18:29 115/61 12/01/18 16:14 97.7 12/01/18 15:43 97.7 60 16 115/61 (79) 100 Intake and Output 12/01/18 12/02/18 19:00 07:00 Intake Total 920 ml 120 ml Balance 920 ml 120 ml Intake Oral 920 ml 120 ml # Voids 2 Laboratory Tests Test 12/02/18 06:05 White Blood Count 2.7 K/UL (4.8-10.8) L Red Blood Count 2.96 M/UL (4.70-6.10) L Hemoglobin 7.3 G/DL (14.2-18.0) L Hematocrit 22.7 % (42.0-52.0) L Mean Corpuscular Volume 77 FL (80-99) L Mean Corpuscular Hemoglobin 24.6 PG (27.0-31.0) L Mean Corpuscular Hemoglobin Concent 32.0 G/DL (32.0-36.0) Red Cell Distribution Width 24.3 % (11.6-14.8) H Platelet Count 50 K/UL (150-450) L Mean Platelet Volume 6.9 FL (6.5-10.1) Neutrophils (%) (Auto) % (45.0-75.0) Lymphocytes (%) (Auto) % (20.0-45.0) Monocytes (%) (Auto) % (1.0-10.0) Eosinophils (%) (Auto) % (0.0-3.0) Basophils (%) (Auto) % (0.0-2.0) Neutrophils % (Manual) Pending Lymphocytes % (Manual) Pending Platelet Estimate Pending Platelet Morphology Pending Sodium Level 135 MMOL/L (136-145) L Potassium Level 3.8 MMOL/L (3.5-5.1) Chloride Level 100 MMOL/L (98-107) Carbon Dioxide Level 29 MMOL/L (21-32) Anion Gap 6 mmol/L (5-15) Blood Urea Nitrogen 22 mg/dL (7-18) H Creatinine 1.1 MG/DL (0.55-1.30) Estimat Glomerular Filtration Rate mL/min (>60) Glucose Level 92 MG/DL (74-106) Calcium Level 8.7 MG/DL (8.5-10.1) Height (Feet): 5 Height (Inches): 5.00 Weight (Pounds): 152 General Appearance: WD/WN, no apparent distress, alert Cardiovascular: normal rate Respiratory/Chest: normal breath sounds, no respiratory distress Abdominal Exam: normal bowel sounds, non tender, soft Extremities: normal range of motion, non-tender Jason Gray NP Dec 02, 2018 11:26
[2018-12-02 12:00] VITALS: BP 122/56
[2018-12-02 16:00] VITALS: BP 126/64
--- NOTE | 2018-12-02 16:07 | Cardiac Electrophysiology PN ---
Assessment/Plan Assessment/Plan 1. Atypical chest pain and hx of CABG. Likely due to severe anemia. Ruled out CA. Nuclear stress test cancelled for severe anemia. Reschedule after pancytopenia is resolved On Lipitor and Coreg. Off Aspirin and Plavix for anemia and Plt 17 only 2. Cardiomyopathy. EF now 55%. On Coreg 12.5 mg bid. Off Lisinopril and Lasix 3. Status post [facility] atrial biventricular defibrillator. Interrogated and showed Nl Fx 4. Severe anemia, S/P PRBC. FU GI. 5. Pancytopenia with Platelet count of 17. Off Aspirin and PLavix S/P platelet transfusion. S/P BM biopsy 11/29/18. Results pending DW RN Subjective Subjective Very weak. In reverse isolation. No CP Objective Last 24 Hour Vital Signs Date Time Temp Pulse Resp B/P (MAP) Pulse Ox O2 Delivery O2 Flow Rate FiO2 12/02/18 16:00 97.9 60 19 126/64 (84) 99 12/02/18 12:00 97.7 62 17 122/56 (78) 99 12/02/18 11:39 98.1 12/02/18 09:00 61 118/57 12/02/18 09:00 Nasal Cannula 2.0 12/02/18 08:54 Nasal Cannula 2.0 28 12/02/18 08:54 97 Nasal Cannula 2.0 28 12/02/18 08:00 98.1 61 17 118/57 (77) 100 12/02/18 04:37 97.8 63 18 138/71 (93) 63 12/02/18 00:20 97.2 66 18 112/57 (75) 97 12/01/18 21:48 Nasal Cannula 2.0 12/01/18 21:47 62 122/66 12/01/18 20:00 98.4 62 18 122/66 (84) 98 12/01/18 18:39 115/61 12/01/18 18:34 115/61 12/01/18 18:29 115/61 12/01/18 16:14 97.7 Intake and Output 12/01/18 12/02/18 19:00 07:00 Intake Total 920 ml 120 ml Balance 920 ml 120 ml Intake Oral 920 ml 120 ml # Voids 2 Laboratory Tests Test 12/02/18 06:05 White Blood Count 2.7 K/UL (4.8-10.8) L Red Blood Count 2.96 M/UL (4.70-6.10) L Hemoglobin 7.3 G/DL (14.2-18.0) L Hematocrit 22.7 % (42.0-52.0) L Mean Corpuscular Volume 77 FL (80-99) L Mean Corpuscular Hemoglobin 24.6 PG (27.0-31.0) L Mean Corpuscular Hemoglobin Concent 32.0 G/DL (32.0-36.0) Red Cell Distribution Width 24.3 % (11.6-14.8) H Platelet Count 50 K/UL (150-450) L Mean Platelet Volume 6.9 FL (6.5-10.1) Neutrophils (%) (Auto) % (45.0-75.0) Lymphocytes (%) (Auto) % (20.0-45.0) Monocytes (%) (Auto) % (1.0-10.0) Eosinophils (%) (Auto) % (0.0-3.0) Basophils (%) (Auto) % (0.0-2.0) Differential Total Cells Counted 100 Neutrophils % (Manual) 22 % (45-75) L Lymphocytes % (Manual) 58 % (20-45) H Monocytes % (Manual) 17 % (1-10) H Eosinophils % (Manual) 3 % (0-3) Basophils % (Manual) 0 % (0-2) Band Neutrophils 0 % (0-8) Platelet Estimate Decreased L Platelet Morphology Giant Platelets 1+ Hypochromasia 2+ Anisocytosis 2+ Microcytosis 1+ Schistocytes Occasional Sodium Level 135 MMOL/L (136-145) L Potassium Level 3.8 MMOL/L (3.5-5.1) Chloride Level 100 MMOL/L (98-107) Carbon Dioxide Level 29 MMOL/L (21-32) Anion Gap 6 mmol/L (5-15) Blood Urea Nitrogen 22 mg/dL (7-18) H Creatinine 1.1 MG/DL (0.55-1.30) Estimat Glomerular Filtration Rate mL/min (>60) Glucose Level 92 MG/DL (74-106) Calcium Level 8.7 MG/DL (8.5-10.1) Objective HEAD AND NECK: No JVD. LUNGS: Coarse rhonchi. CARDIOVASCULAR: Regular S1 and S2 with no gallop or murmur. Sternotomy is intact. Defibrillator is in left subclavian. ABDOMEN: Soft. EXTREMITIES: 1+ pitting edema. Satinder Gee MD Dec 02, 2018 16:07
--- NOTE | 2018-12-02 17:13 | Pulmonology Progress Note ---
Assessment/Plan Problems: (1) Severe thrombocytopenia (2) ACS (acute coronary syndrome) (3) Cardiomyopathy (4) HTN (hypertension) (5) Pacemaker (6) Hypothyroidism (7) CAD (coronary artery disease) Assessment/Plan bone marrow biopsy done, results pending flow cytometry pending PLT stable check electrolytes awaiting bone marrow biopsy results. flow cytometry abnormal all reviewed symptomatic treatment Subjective ROS Limited/Unobtainable: No Interval Events: some nausea Allergies: Coded Allergies: No Known Allergies (Verified , 09/12/10) Objective Last 24 Hour Vital Signs Date Time Temp Pulse Resp B/P (MAP) Pulse Ox O2 Delivery O2 Flow Rate FiO2 12/02/18 16:33 97.9 12/02/18 16:00 97.9 60 19 126/64 (84) 99 12/02/18 12:00 97.7 62 17 122/56 (78) 99 12/02/18 09:00 61 118/57 12/02/18 09:00 Nasal Cannula 2.0 12/02/18 08:54 Nasal Cannula 2.0 28 12/02/18 08:54 97 Nasal Cannula 2.0 28 12/02/18 08:00 98.1 61 17 118/57 (77) 100 12/02/18 04:37 97.8 63 18 138/71 (93) 63 12/02/18 00:20 97.2 66 18 112/57 (75) 97 12/01/18 21:48 Nasal Cannula 2.0 12/01/18 21:47 62 122/66 12/01/18 20:00 98.4 62 18 122/66 (84) 98 12/01/18 18:39 115/61 12/01/18 18:34 115/61 12/01/18 18:29 115/61 Intake and Output 12/01/18 12/02/18 19:00 07:00 Intake Total 920 ml 120 ml Balance 920 ml 120 ml Intake Oral 920 ml 120 ml # Voids 2 Objective General Appearance: cachetic Lines, tubes and drains: peripheral HEENT: normocephalic, atraumatic Neck: non-tender, normal alignment Respiratory/Chest: chest wall non-tender, lungs clear Breasts: no masses Cardiovascular/Chest: normal peripheral pulses, normal rate Abdomen: normal bowel sounds, non tender Genitourinary/Rectal: normal genital exam Extremities: normal range of motion Skin Exam: normal pigmentation Neurologic: baggageman II-XII grossly normal Laboratory Tests 12/02/18 06:05: White Blood Count 2.7L, Red Blood Count 2.96L, Hemoglobin 7.3L, Hematocrit 22.7L , Mean Corpuscular Volume 77L, Mean Corpuscular Hemoglobin 24.6L, Mean Corpuscular Hemoglobin Concent 32.0, Red Cell Distribution Width 24.3H, Platelet Count 50L, Mean Platelet Volume 6.9, Neutrophils (%) (Auto) , Lymphocytes (%) (Auto) , Monocytes (%) (Auto) , Eosinophils (%) (Auto) , Basophils (%) (Auto) , Differential Total Cells Counted 100, Neutrophils % ( Manual) 22L, Lymphocytes % (Manual) 58H, Monocytes % (Manual) 17H, Eosinophils % (Manual) 3, Basophils % (Manual) 0, Band Neutrophils 0, Platelet Estimate DecreasedL, Platelet Morphology , Giant Platelets 1+, Hypochromasia 2+, Anisocytosis 2+, Microcytosis 1+, Schistocytes Occasional, Sodium Level 135L, Potassium Level 3.8, Chloride Level 100, Carbon Dioxide Level 29, Anion Gap 6, Blood Urea Nitrogen 22H, Creatinine 1.1, Estimat Glomerular Filtration Rate , Glucose Level 92, Calcium Level 8.7 Current Medications Medications (Trade) Dose Ordered Sig/Scout Route PRN Reason Start Time Stop Time Status Last Admin Dose Admin Acetaminophen (Tylenol) 650 mg Q4H PRN ORAL Mild Pain (Pain Scale 1-3) 11/28/18 17:02 12/18/18 17:01 Acetaminophen (Tylenol) 650 mg Q4H PRN ORAL fever 11/28/18 17:02 12/18/18 17:01 Acetaminophen (Tylenol) 650 mg Q4H PRN RECTAL Mild Pain (Pain Scale 1-3) 11/28/18 17:02 12/18/18 17:01 Atorvastatin Calcium (Lipitor) 40 mg BEDTIME ORAL 11/28/18 21:00 12/18/18 20:59 12/01/18 21:47 Bisacodyl (Dulcolax) 10 mg DAILYPRN PRN RECTAL Constipation 11/28/18 17:02 12/28/18 17:01 Carvedilol (Coreg) 12.5 mg EVERY 12 HOURS ORAL 11/28/18 21:00 12/18/18 20:59 12/02/18 09:00 Dextrose (Dextrose 50%) 25 ml Q30M PRN IV Hypoglycemia 11/28/18 17:15 12/18/18 10:14 Dextrose (Dextrose 50%) 50 ml Q30M PRN IV Hypoglycemia 11/28/18 17:15 12/18/18 10:14 Docusate Sodium (Colace) 100 mg EVERY 12 HOURS ORAL 11/28/18 21:00 12/18/18 20:59 12/02/18 09:00 Escitalopram Oxalate (Lexapro) 15 mg DAILY ORAL 11/29/18 09:00 12/24/18 08:59 12/02/18 09:00 Famotidine (Pepcid) 20 mg QHS ORAL 11/30/18 21:00 12/30/18 20:59 12/01/18 21:47 Levothyroxine Sodium (Synthroid) 25 mcg Q24H ORAL 11/29/18 06:30 12/19/18 06:29 12/02/18 05:38 Magnesium Hydroxide (Mom) 30 ml HSPRN PRN ORAL Constipation 11/29/18 17:03 12/18/18 17:02 Morphine Sulfate (Morphine Sulfate) 2 mg Q4H PRN IVP Moderate Pain (Pain Scale 4-6) 11/28/18 17:03 12/03/18 17:02 12/01/18 15:44 Morphine Sulfate (Morphine Sulfate) 4 mg Q4H PRN IVP Severe Pain (Pain Scale 7-10) 11/28/18 17:30 12/03/18 13:29 12/02/18 16:03 Nitroglycerin (Ntg) 0.4 mg Q5M PRN SL Prn Chest Pain 11/28/18 17:05 12/18/18 10:14 12/01/18 18:39 Ondansetron HCl (Zofran) 4 mg Q6H PRN IVP Nausea & Vomiting 11/28/18 17:03 12/18/18 17:02 12/02/18 16:10 Pantoprazole (Protonix) 40 mg DAILY ORAL 11/29/18 09:00 12/19/18 08:59 12/02/18 09:00 Polyethylene Glycol (Miralax) 17 gm DAILYPRN PRN ORAL Constipation 11/28/18 17:04 12/28/18 17:03 12/02/18 09:01 Chepe Luong MD Dec 02, 2018 17:13
--- NOTE | 2018-12-02 18:02 | Internal Med Progress Note ---
Subjective Physician Name Abdias Hunter Attending Physician Abdias Hunter MD Current Medications Medications (Trade) Dose Ordered Sig/Scout Route PRN Reason Start Time Stop Time Status Last Admin Dose Admin Acetaminophen (Tylenol) 650 mg Q4H PRN ORAL Mild Pain (Pain Scale 1-3) 11/28/18 17:02 12/18/18 17:01 Acetaminophen (Tylenol) 650 mg Q4H PRN ORAL fever 11/28/18 17:02 12/18/18 17:01 Acetaminophen (Tylenol) 650 mg Q4H PRN RECTAL Mild Pain (Pain Scale 1-3) 11/28/18 17:02 12/18/18 17:01 Atorvastatin Calcium (Lipitor) 40 mg BEDTIME ORAL 11/28/18 21:00 12/18/18 20:59 12/01/18 21:47 Bisacodyl (Dulcolax) 10 mg DAILYPRN PRN RECTAL Constipation 11/28/18 17:02 12/28/18 17:01 Carvedilol (Coreg) 12.5 mg EVERY 12 HOURS ORAL 11/28/18 21:00 12/18/18 20:59 12/02/18 09:00 Dextrose (Dextrose 50%) 25 ml Q30M PRN IV Hypoglycemia 11/28/18 17:15 12/18/18 10:14 Dextrose (Dextrose 50%) 50 ml Q30M PRN IV Hypoglycemia 11/28/18 17:15 12/18/18 10:14 Docusate Sodium (Colace) 100 mg EVERY 12 HOURS ORAL 11/28/18 21:00 12/18/18 20:59 12/02/18 09:00 Escitalopram Oxalate (Lexapro) 15 mg DAILY ORAL 11/29/18 09:00 12/24/18 08:59 12/02/18 09:00 Famotidine (Pepcid) 20 mg QHS ORAL 11/30/18 21:00 12/30/18 20:59 12/01/18 21:47 Levothyroxine Sodium (Synthroid) 25 mcg Q24H ORAL 11/29/18 06:30 12/19/18 06:29 12/02/18 05:38 Magnesium Hydroxide (Mom) 30 ml HSPRN PRN ORAL Constipation 11/29/18 17:03 12/18/18 17:02 Morphine Sulfate (Morphine Sulfate) 2 mg Q4H PRN IVP Moderate Pain (Pain Scale 4-6) 11/28/18 17:03 12/03/18 17:02 12/01/18 15:44 Morphine Sulfate (Morphine Sulfate) 4 mg Q4H PRN IVP Severe Pain (Pain Scale 7-10) 11/28/18 17:30 12/03/18 13:29 12/02/18 16:03 Nitroglycerin (Ntg) 0.4 mg Q5M PRN SL Prn Chest Pain 11/28/18 17:05 12/18/18 10:14 12/01/18 18:39 Ondansetron HCl (Zofran) 4 mg Q6H PRN IVP Nausea & Vomiting 11/28/18 17:03 12/18/18 17:02 12/02/18 16:10 Pantoprazole (Protonix) 40 mg DAILY ORAL 11/29/18 09:00 12/19/18 08:59 12/02/18 09:00 Polyethylene Glycol (Miralax) 17 gm DAILYPRN PRN ORAL Constipation 11/28/18 17:04 12/28/18 17:03 12/02/18 09:01 Allergies: Coded Allergies: No Known Allergies (Verified , 09/12/10) Subjective Patient is alert, oriented, no acute distress, no chest pain, no shortness of breath, pancytopenia. Objective Last Vital Signs Date Time Temp Pulse Resp B/P (MAP) Pulse Ox O2 Delivery O2 Flow Rate FiO2 12/02/18 16:33 97.9 12/02/18 16:00 60 19 126/64 (84) 99 12/02/18 09:00 Nasal Cannula 2.0 12/02/18 08:54 28 Laboratory Tests Test 12/02/18 06:05 White Blood Count 2.7 K/UL (4.8-10.8) L Red Blood Count 2.96 M/UL (4.70-6.10) L Hemoglobin 7.3 G/DL (14.2-18.0) L Hematocrit 22.7 % (42.0-52.0) L Mean Corpuscular Volume 77 FL (80-99) L Mean Corpuscular Hemoglobin 24.6 PG (27.0-31.0) L Mean Corpuscular Hemoglobin Concent 32.0 G/DL (32.0-36.0) Red Cell Distribution Width 24.3 % (11.6-14.8) H Platelet Count 50 K/UL (150-450) L Mean Platelet Volume 6.9 FL (6.5-10.1) Neutrophils (%) (Auto) % (45.0-75.0) Lymphocytes (%) (Auto) % (20.0-45.0) Monocytes (%) (Auto) % (1.0-10.0) Eosinophils (%) (Auto) % (0.0-3.0) Basophils (%) (Auto) % (0.0-2.0) Differential Total Cells Counted 100 Neutrophils % (Manual) 22 % (45-75) L Lymphocytes % (Manual) 58 % (20-45) H Monocytes % (Manual) 17 % (1-10) H Eosinophils % (Manual) 3 % (0-3) Basophils % (Manual) 0 % (0-2) Band Neutrophils 0 % (0-8) Platelet Estimate Decreased L Platelet Morphology Giant Platelets 1+ Hypochromasia 2+ Anisocytosis 2+ Microcytosis 1+ Schistocytes Occasional Sodium Level 135 MMOL/L (136-145) L Potassium Level 3.8 MMOL/L (3.5-5.1) Chloride Level 100 MMOL/L (98-107) Carbon Dioxide Level 29 MMOL/L (21-32) Anion Gap 6 mmol/L (5-15) Blood Urea Nitrogen 22 mg/dL (7-18) H Creatinine 1.1 MG/DL (0.55-1.30) Estimat Glomerular Filtration Rate mL/min (>60) Glucose Level 92 MG/DL (74-106) Calcium Level 8.7 MG/DL (8.5-10.1) Intake and Output 12/01/18 12/02/18 19:00 07:00 Intake Total 920 ml 120 ml Balance 920 ml 120 ml Intake Oral 920 ml 120 ml # Voids 2 Objective General: No acute distress, awake and alert HEENT: NCAT, sclera anicteric, PERRL, EOMI. Neck: Supple, no significant jugular venous distention, Lungs: Good inspiratory effort, clear to auscultation bilaterally, no Wheeze or Rales. Heart: Regular rate and rhythm, normal S1/S2, no murmur, AICD @ LCW. Abdomen: soft, nontender, nondistended. Normoactive bowel sounds. Extremities: No Cyanosis , clubbing or edema. Neuro: A&O x 3, Able to move all extremities Assessment/Plan Assessment/Plan 1. Chest pain, possible acute coronary syndrome. 2. Hypertension. 3. Dyslipidemia. 4. Congestive heart failure. 5. Coronary artery disease. 6. Sick sinus syndrome, status pacemaker. 7. Acute E. coli UTI. 8. 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 PLAN: Monitor laboratory. Discussed case with Dr. Gee from Cardiology Electrophysiology. Dr. Luong, Pulmonary Critical Care. We will absorb patient without any antibiotics at this time. DVT prophylaxis: SCD , DC heparin subcutaneous due to the severe thrombocytopenia. Code status, Full Code. Discharge planning to the retirement once patient's stable. Abdias Hunter MD Dec 02, 2018 18:02
[2018-12-02 20:00] VITALS: BP 129/67
[2018-12-02] MEDS: Atorvastatin 20mg tab ORAL SCH (20:30)
--- NOTE | 2018-12-02 21:30 | Consultation ---
DATE OF CONSULTATION: 12/02/2018 CONSULTING PHYSICIAN: Meghna Latif M.D. ATTENDING PHYSICIAN: Abdias Hunter M.D. REFERRING PHYSICIAN: Abdias Hunter M.D. REASON FOR CONSULTATION: Skin check. HISTORY OF PRESENT ILLNESS: This is a 78-year-old gentleman with multiple medical problems. He was admitted for chest pain and acute coronary syndrome. MEDICATIONS: Tylenol, Lipitor, Dulcolax, Coreg, Colace, Lexapro, Pepcid, Synthroid, milk of magnesia, Zofran, Protonix, nitroglycerin. The patient is also on Rocephin. REVIEW OF SYSTEMS: CONSTITUTIONAL: The patient complains of no new weight loss, weight gain. HEENT: He has no headaches or changes in vision. CARDIOVASCULAR: The patient has no shortness of breath. CHEST: He did recently have chest pain. MUSCULOSKELETAL: He has weakness and fatigue. PHYSICAL EXAMINATION: VITAL SIGNS: The patient is afebrile. He has stable vitals. GENERAL: He is awake, responsive, in no acute distress. EXTREMITIES: No C/C/E. MUSCULOSKELETAL: The patient complains of slight weakness, but has good motor strength. ASSESSMENT: The patient with multiple medical problems with recent admission for chest pain. I examined the patient's entire body. Despite his overall complaint of weakness and also recent illness, all skin was intact. The patient stated that he does have some difficulty turning and positioning. If he does, I recommend turning him q.2 hours. Please keep the sheets clean and dry and wrinkle free. Nutritional consult to ensure adequate nutritional needs and monitor labs. Also assess condition of mattress and pressure reduction surfaces and moisturize skin daily. Meghna Latif M.D. DR: NICOLA JOB#: [id number] CC: MARY
[2018-12-03] VITALS: BP 121/66
--- NOTE | 2018-12-03 | General Progress Note ---
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 Transfuse prn. --> Epogen or iron at this time is not particularly indicated --> Medications have been reviewed # Reticulcytosis with elevated bilirubin that is indirect --> reviewed direct and indirect bilis again, trend could have liver disease --> liver US shows no significant cirrhosis --> evaluate as needed with gi team, recs apprecaited #. Chest pain, possible acute coronary syndrome. --> cards recs appreciated as well as pulm --> stress test prn #. Hypertension. #. Dyslipidemia. #. Congestive heart failure. #. Coronary artery disease. #. Sick sinus syndrome, status pacemaker. #. Acute E. coli UTI. #. Hep C+++ The timing of this note does not necessarily reflect the time of the patient was seen. Greatly appreciate consultation! Subjective ROS Limited/Unobtainable: Yes Allergies: Coded Allergies: No Known Allergies (Verified , 09/12/10) Subjective 11/27: no events to report, no f/c 11/28: seen by bedside, plt 65, plan for EGD and bone marrow biopsy tomorrow 11/29: BM biopsy today, no acute distress. 11/30: Had BM biopsy yesterday and now in reverse isolation. hgb 7.5, will transfuse as needed. 12/01: seen by bedside, plt remains low, awaiting bone marrow biopsy results. 12/02: No acute distress, no chest pain, no shortness of breath, wbc 2.7, hgb 7.3 , plt 50, will transfuse as needed. S/P BM biopsy 11/29/18, Results pending Objective Last 24 Hour Vital Signs Date Time Temp Pulse Resp B/P (MAP) Pulse Ox O2 Delivery O2 Flow Rate FiO2 12/02/18 21:00 Nasal Cannula 2.0 12/02/18 20:31 62 129/97 12/02/18 20:00 97.7 62 19 129/67 (87) 97 12/02/18 16:33 97.9 12/02/18 16:00 97.9 60 19 126/64 (84) 99 12/02/18 12:00 97.7 62 17 122/56 (78) 99 12/02/18 09:00 61 118/57 12/02/18 09:00 Nasal Cannula 2.0 12/02/18 08:54 Nasal Cannula 2.0 28 12/02/18 08:54 97 Nasal Cannula 2.0 28 12/02/18 08:00 98.1 61 17 118/57 (77) 100 12/02/18 04:37 97.8 63 18 138/71 (93) 63 12/02/18 00:20 97.2 66 18 112/57 (75) 97 Intake and Output 12/01/18 12/02/18 19:00 07:00 Intake Total 920 ml 120 ml Balance 920 ml 120 ml Intake Oral 920 ml 120 ml # Voids 2 Laboratory Tests 12/02/18 06:05: White Blood Count 2.7L, Red Blood Count 2.96L, Hemoglobin 7.3L, Hematocrit 22.7L , Mean Corpuscular Volume 77L, Mean Corpuscular Hemoglobin 24.6L, Mean Corpuscular Hemoglobin Concent 32.0, Red Cell Distribution Width 24.3H, Platelet Count 50L, Mean Platelet Volume 6.9, Neutrophils (%) (Auto) , Lymphocytes (%) (Auto) , Monocytes (%) (Auto) , Eosinophils (%) (Auto) , Basophils (%) (Auto) , Differential Total Cells Counted 100, Neutrophils % ( Manual) 22L, Lymphocytes % (Manual) 58H, Monocytes % (Manual) 17H, Eosinophils % (Manual) 3, Basophils % (Manual) 0, Band Neutrophils 0, Platelet Estimate DecreasedL, Platelet Morphology , Giant Platelets 1+, Hypochromasia 2+, Anisocytosis 2+, Microcytosis 1+, Schistocytes Occasional, Sodium Level 135L, Potassium Level 3.8, Chloride Level 100, Carbon Dioxide Level 29, Anion Gap 6, Blood Urea Nitrogen 22H, Creatinine 1.1, Estimat Glomerular Filtration Rate , Glucose Level 92, Calcium Level 8.7 Height (Feet): 5 Height (Inches): 5.00 Weight (Pounds): 152 Objective Sp02 EP: reviewed, normal General Appearance: well appearing, nad, alert Head: normocephalic, atraumatic Eyes: b/l eye PERRL, bilateral eye EOMI ENT: hearing grossly normal, normal pharynx Neck: full range of motion, supple, no meningismus Respiratory: chest non-tender, lungs clear, normal breath sounds Cardiovascular: regular rate, rhythm, no murmur Gastrointestinal: normal bowel sounds, non tender, no mass, no organomegaly, no bruit, non-distended Musculoskeletal: back normal, gait/station normal, normal range of motion Psychiatric: mood/affect normal Skin: warm/dry Jose Alberto España MD Dec 03, 2018 00:00
[2018-12-03] MEDS: Morphine Sulfate 4mg/ml Inj (IV USE ONLY) IVP PRN ×3 (01:04→11:57)
[2018-12-03] MEDS: Nitroglycerin Subl 0.4mg tab SL PRN ×2 (03:04→03:11)
[2018-12-03 04:00] VITALS: BP 116/51
[2018-12-03] MEDS: Levothyroxine 25mcg tab ORAL SCH (06:13)
--- NOTE | 2018-12-03 06:53 | General Progress Note ---
Assessment/Plan Problem List: (1) History of CVA (cerebrovascular accident) ICD Codes: Z86.73 - Personal history of transient ischemic attack (TIA), and cerebral infarction without residual deficits SNOMED: 970793689 (2) Cardiomyopathy ICD Codes: I42.9 - Cardiomyopathy, unspecified SNOMED: 21291858 (3) Hypothyroidism ICD Codes: E03.9 - Hypothyroidism, unspecified SNOMED: 76494239 (4) HTN (hypertension) ICD Codes: I10 - Essential (primary) hypertension SNOMED: 98522987 (5) Severe thrombocytopenia ICD Codes: D69.6 - Thrombocytopenia, unspecified SNOMED: 061688406 (6) Anxiety disorder ICD Codes: F41.9 - Anxiety disorder, unspecified SNOMED: 878589007 (7) Severe anemia ICD Codes: D64.9 - Anemia, unspecified SNOMED: 659834426 (8) GERD (gastroesophageal reflux disease) ICD Codes: K21.9 - Gastro-esophageal reflux disease without esophagitis SNOMED: 598645452 (9) Pacemaker ICD Codes: Z95.0 - Presence of cardiac pacemaker SNOMED: 71519112, 382638694, 276788884 Assessment/Plan SUMMARY OF FINDINGS: 1. Gastritis. 2. A 6 cm hiatal hernia. RECOMMENDATIONS: Follow up biopsy results and treat accordingly. BM biopsy>>? leukemia>> fu oncology monitor H&H, prn transfusions. OB stool uncollected bowel regime ppi, add H2B qhs fu labs Outpatient hep C treatment Subjective ROS Limited/Unobtainable: Yes Allergies: Coded Allergies: No Known Allergies (Verified , 09/12/10) Objective Last 24 Hour Vital Signs Date Time Temp Pulse Resp B/P (MAP) Pulse Ox O2 Delivery O2 Flow Rate FiO2 12/03/18 04:00 98.4 64 18 116/51 (72) 97 12/03/18 03:11 121/66 12/03/18 03:04 121/66 12/03/18 00:00 97.7 62 18 121/66 (84) 100 12/02/18 21:00 Nasal Cannula 2.0 12/02/18 20:31 62 129/97 12/02/18 20:00 97.7 62 19 129/67 (87) 97 12/02/18 16:33 97.9 12/02/18 16:00 97.9 60 19 126/64 (84) 99 12/02/18 12:00 97.7 62 17 122/56 (78) 99 12/02/18 09:00 61 118/57 12/02/18 09:00 Nasal Cannula 2.0 12/02/18 08:54 Nasal Cannula 2.0 28 12/02/18 08:54 97 Nasal Cannula 2.0 28 12/02/18 08:00 98.1 61 17 118/57 (77) 100 Intake and Output 12/02/18 12/03/18 18:59 06:59 Intake Total 320 ml Output Total 425 ml Balance 320 ml -425 ml Intake Oral 320 ml Output Urine Total 425 ml # Voids 3 Height (Feet): 5 Height (Inches): 5.00 Weight (Pounds): 152 General Appearance: alert EENT: normal ENT inspection Neck: supple Cardiovascular: normal rate Respiratory/Chest: lungs clear Abdomen: normal bowel sounds, non tender, soft Extremities: non-tender Richie Mcguire MD Dec 03, 2018 06:53
[2018-12-03 08:00] VITALS: BP 103/59
[2018-12-03 08:09] LABS: ANION GAP 5 mmol/L (5-15); BLOOD UREA NITROGEN 27 mg/dL (7-18); CALCIUM 8.6 MG/DL (8.5-10.1); CARBON DIOXIDE 29 MMOL/L (21-32); CHLORIDE 101 MMOL/L (98-107); POTASSIUM 4.2 MMOL/L (3.5-5.1); SODIUM 135 MMOL/L (136-145)
[2018-12-03 08:14] LABS: HEMOGLOBIN 7.5 G/DL (14.2-18.0); MEAN CORPUSCULAR VOLUME 78 FL (80-99); PLATELET COUNT 53 K/UL (150-450); RED BLOOD COUNT 3.09 M/UL (4.70-6.10); RED CELL DISTRIBUTION WIDTH 24.4 % (11.6-14.8); WHITE BLOOD COUNT 3.1 K/UL (4.8-10.8)
[2018-12-03] MEDS: Docusate 100mg cap ORAL SCH ×2 (08:51→21:48)
[2018-12-03] MEDS: Carvedilol 12.5mg tab ORAL SCH ×2 (08:54→21:50)
--- NOTE | 2018-12-03 11:56 | Pulmonology Progress Note ---
Assessment/Plan Problems: (1) Severe thrombocytopenia (2) ACS (acute coronary syndrome) (3) Cardiomyopathy (4) HTN (hypertension) (5) Pacemaker (6) Hypothyroidism (7) CAD (coronary artery disease) Assessment/Plan prbc and plt prn bone marrow recovering flow cytometry pending PLT stable check electrolytes awaiting bone marrow biopsy results. flow cytometry abnormal all reviewed symptomatic treatment Subjective ROS Limited/Unobtainable: No Constitutional: Reports: no symptoms Allergies: Coded Allergies: No Known Allergies (Verified , 09/12/10) Objective Last 24 Hour Vital Signs Date Time Temp Pulse Resp B/P (MAP) Pulse Ox O2 Delivery O2 Flow Rate FiO2 12/03/18 09:00 Nasal Cannula 2.0 12/03/18 08:54 64 98/50 12/03/18 08:00 98.4 66 15 103/59 (74) 99 12/03/18 04:00 98.4 64 18 116/51 (72) 97 12/03/18 03:11 121/66 12/03/18 03:04 121/66 12/03/18 00:00 97.7 62 18 121/66 (84) 100 12/02/18 21:00 Nasal Cannula 2.0 12/02/18 20:31 62 129/97 12/02/18 20:00 97.7 62 19 129/67 (87) 97 12/02/18 16:33 97.9 12/02/18 16:00 97.9 60 19 126/64 (84) 99 12/02/18 12:00 97.7 62 17 122/56 (78) 99 Intake and Output 12/02/18 12/03/18 19:00 07:00 Intake Total 320 ml Output Total 425 ml Balance 320 ml -425 ml Intake Oral 320 ml Output Urine Total 425 ml # Voids 3 Objective General Appearance: cachetic Lines, tubes and drains: peripheral HEENT: normocephalic, atraumatic Neck: non-tender, normal alignment Respiratory/Chest: chest wall non-tender, lungs clear Breasts: no masses Cardiovascular/Chest: normal peripheral pulses, normal rate Abdomen: normal bowel sounds, non tender Genitourinary/Rectal: normal genital exam Extremities: normal range of motion Skin Exam: normal pigmentation 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 Laboratory Tests 12/03/18 05:35: White Blood Count 3.1L, Red Blood Count 3.09L, Hemoglobin 7.5L, Hematocrit 24.0L , Mean Corpuscular Volume 78L, Mean Corpuscular Hemoglobin 24.2L, Mean Corpuscular Hemoglobin Concent 31.2L, Red Cell Distribution Width 24.4H, Platelet Count 53L, Mean Platelet Volume 6.2L, Neutrophils (%) (Auto) , Lymphocytes (%) (Auto) , Monocytes (%) (Auto) , Eosinophils (%) (Auto) , Basophils (%) (Auto) , Differential Total Cells Counted 100, Neutrophils % ( Manual) 26L, Lymphocytes % (Manual) 55H, Monocytes % (Manual) 12H, Eosinophils % (Manual) 7H, Basophils % (Manual) 0, Band Neutrophils 0, Atypical Lymphocytes Rare, Platelet Estimate DecreasedL, Platelet Morphology , Giant Platelets 1+, Hypochromasia 2+, Basophilic Stippling , Anisocytosis 3+, Microcytosis 2+, Agatha Cells Occasional, Schistocytes 1+, Sodium Level 135L, Potassium Level 4.2, Chloride Level 101, Carbon Dioxide Level 29, Anion Gap 5, Blood Urea Nitrogen 27H, Creatinine 1.0, Estimat Glomerular Filtration Rate , Glucose Level 83, Calcium Level 8.6 Current Medications Medications (Trade) Dose Ordered Sig/Scout Route PRN Reason Start Time Stop Time Status Last Admin Dose Admin Acetaminophen (Tylenol) 650 mg Q4H PRN ORAL Mild Pain (Pain Scale 1-3) 11/28/18 17:02 12/18/18 17:01 Acetaminophen (Tylenol) 650 mg Q4H PRN ORAL fever 11/28/18 17:02 12/18/18 17:01 Acetaminophen (Tylenol) 650 mg Q4H PRN RECTAL Mild Pain (Pain Scale 1-3) 11/28/18 17:02 12/18/18 17:01 Atorvastatin Calcium (Lipitor) 40 mg BEDTIME ORAL 11/28/18 21:00 12/18/18 20:59 12/02/18 20:30 Bisacodyl (Dulcolax) 10 mg DAILYPRN PRN RECTAL Constipation 11/28/18 17:02 12/28/18 17:01 Carvedilol (Coreg) 12.5 mg EVERY 12 HOURS ORAL 11/28/18 21:00 12/18/18 20:59 12/02/18 20:31 Dextrose (Dextrose 50%) 25 ml Q30M PRN IV Hypoglycemia 11/28/18 17:15 12/18/18 10:14 Dextrose (Dextrose 50%) 50 ml Q30M PRN IV Hypoglycemia 11/28/18 17:15 12/18/18 10:14 Docusate Sodium (Colace) 100 mg EVERY 12 HOURS ORAL 11/28/18 21:00 12/18/18 20:59 12/03/18 08:51 Escitalopram Oxalate (Lexapro) 15 mg DAILY ORAL 11/29/18 09:00 12/24/18 08:59 12/03/18 08:52 Famotidine (Pepcid) 20 mg QHS ORAL 11/30/18 21:00 12/30/18 20:59 12/02/18 20:30 Levothyroxine Sodium (Synthroid) 25 mcg Q24H ORAL 11/29/18 06:30 12/19/18 06:29 12/03/18 06:13 Magnesium Hydroxide (Mom) 30 ml HSPRN PRN ORAL Constipation 11/29/18 17:03 12/18/18 17:02 Morphine Sulfate (Morphine Sulfate) 2 mg Q4H PRN IVP Moderate Pain (Pain Scale 4-6) 11/28/18 17:03 12/03/18 17:02 12/01/18 15:44 Morphine Sulfate (Morphine Sulfate) 4 mg Q4H PRN IVP Severe Pain (Pain Scale 7-10) 11/28/18 17:30 12/03/18 13:29 12/03/18 05:26 Nitroglycerin (Ntg) 0.4 mg Q5M PRN SL Prn Chest Pain 11/28/18 17:05 12/18/18 10:14 12/03/18 03:11 Ondansetron HCl (Zofran) 4 mg Q6H PRN IVP Nausea & Vomiting 11/28/18 17:03 12/18/18 17:02 12/03/18 01:02 Pantoprazole (Protonix) 40 mg DAILY ORAL 11/29/18 09:00 12/19/18 08:59 12/03/18 08:52 Polyethylene Glycol (Miralax) 17 gm DAILYPRN PRN ORAL Constipation 11/28/18 17:04 12/28/18 17:03 12/02/18 09:01 Chepe Luong MD Dec 03, 2018 11:56
[2018-12-03 12:00] VITALS: BP 99/56
[2018-12-03 16:00] VITALS: BP 108/57
--- NOTE | 2018-12-03 17:31 | Internal Med Progress Note ---
Subjective Date of Service: Dec 03, 2018 Physician Name Nikhil West Attending Physician Abdias Hunter MD Current Medications Medications (Trade) Dose Ordered Sig/Scout Route PRN Reason Start Time Stop Time Status Last Admin Dose Admin Acetaminophen (Tylenol) 650 mg Q4H PRN ORAL Mild Pain (Pain Scale 1-3) 11/28/18 17:02 12/18/18 17:01 Acetaminophen (Tylenol) 650 mg Q4H PRN ORAL fever 11/28/18 17:02 12/18/18 17:01 Acetaminophen (Tylenol) 650 mg Q4H PRN RECTAL Mild Pain (Pain Scale 1-3) 11/28/18 17:02 12/18/18 17:01 Atorvastatin Calcium (Lipitor) 40 mg BEDTIME ORAL 11/28/18 21:00 12/18/18 20:59 12/02/18 20:30 Bisacodyl (Dulcolax) 10 mg DAILYPRN PRN RECTAL Constipation 11/28/18 17:02 12/28/18 17:01 Carvedilol (Coreg) 12.5 mg EVERY 12 HOURS ORAL 11/28/18 21:00 12/18/18 20:59 12/02/18 20:31 Dextrose (Dextrose 50%) 25 ml Q30M PRN IV Hypoglycemia 11/28/18 17:15 12/18/18 10:14 Dextrose (Dextrose 50%) 50 ml Q30M PRN IV Hypoglycemia 11/28/18 17:15 12/18/18 10:14 Docusate Sodium (Colace) 100 mg EVERY 12 HOURS ORAL 11/28/18 21:00 12/18/18 20:59 12/03/18 08:51 Escitalopram Oxalate (Lexapro) 15 mg DAILY ORAL 11/29/18 09:00 12/24/18 08:59 12/03/18 08:52 Famotidine (Pepcid) 20 mg QHS ORAL 11/30/18 21:00 12/30/18 20:59 12/02/18 20:30 Levothyroxine Sodium (Synthroid) 25 mcg Q24H ORAL 11/29/18 06:30 12/19/18 06:29 12/03/18 06:13 Magnesium Hydroxide (Mom) 30 ml HSPRN PRN ORAL Constipation 11/29/18 17:03 12/18/18 17:02 Nitroglycerin (Ntg) 0.4 mg Q5M PRN SL Prn Chest Pain 11/28/18 17:05 12/18/18 10:14 12/03/18 03:11 Ondansetron HCl (Zofran) 4 mg Q6H PRN IVP Nausea & Vomiting 11/28/18 17:03 12/18/18 17:02 12/03/18 17:16 Pantoprazole (Protonix) 40 mg DAILY ORAL 11/29/18 09:00 12/19/18 08:59 12/03/18 08:52 Polyethylene Glycol (Miralax) 17 gm DAILYPRN PRN ORAL Constipation 11/28/18 17:04 12/28/18 17:03 12/02/18 09:01 Allergies: Coded Allergies: No Known Allergies (Verified , 09/12/10) ROS Limited/Unobtainable: No Constitutional: Reports: no symptoms HEENT: Reports: no symptoms Cardiovascular: Reports: no symptoms Respiratory: Reports: no symptoms Gastrointestinal/Abdominal: Reports: no symptoms Genitourinary: Reports: no symptoms Neurologic/Psychiatric: Reports: no symptoms Subjective 78 YO M admitted with chest pain. Now pancytopenia and UTI. Cover for Int Med- Dr Hunter. Objective Last Vital Signs Date Time Temp Pulse Resp B/P (MAP) Pulse Ox O2 Delivery O2 Flow Rate FiO2 12/03/18 16:00 98.0 64 17 108/57 (74) 100 12/03/18 09:00 Nasal Cannula 2.0 12/03/18 07:55 28 Laboratory Tests Test 12/03/18 05:35 White Blood Count 3.1 K/UL (4.8-10.8) L Red Blood Count 3.09 M/UL (4.70-6.10) L Hemoglobin 7.5 G/DL (14.2-18.0) L Hematocrit 24.0 % (42.0-52.0) L Mean Corpuscular Volume 78 FL (80-99) L Mean Corpuscular Hemoglobin 24.2 PG (27.0-31.0) L Mean Corpuscular Hemoglobin Concent 31.2 G/DL (32.0-36.0) L Red Cell Distribution Width 24.4 % (11.6-14.8) H Platelet Count 53 K/UL (150-450) L Mean Platelet Volume 6.2 FL (6.5-10.1) L Neutrophils (%) (Auto) % (45.0-75.0) Lymphocytes (%) (Auto) % (20.0-45.0) Monocytes (%) (Auto) % (1.0-10.0) Eosinophils (%) (Auto) % (0.0-3.0) Basophils (%) (Auto) % (0.0-2.0) Differential Total Cells Counted 100 Neutrophils % (Manual) 26 % (45-75) L Lymphocytes % (Manual) 55 % (20-45) H Monocytes % (Manual) 12 % (1-10) H Eosinophils % (Manual) 7 % (0-3) H Basophils % (Manual) 0 % (0-2) Band Neutrophils 0 % (0-8) Atypical Lymphocytes Rare Platelet Estimate Decreased L Platelet Morphology Giant Platelets 1+ Hypochromasia 2+ Basophilic Stippling Anisocytosis 3+ Microcytosis 2+ Agatha Cells Occasional Schistocytes 1+ Sodium Level 135 MMOL/L (136-145) L Potassium Level 4.2 MMOL/L (3.5-5.1) Chloride Level 101 MMOL/L (98-107) Carbon Dioxide Level 29 MMOL/L (21-32) Anion Gap 5 mmol/L (5-15) Blood Urea Nitrogen 27 mg/dL (7-18) H Creatinine 1.0 MG/DL (0.55-1.30) Estimat Glomerular Filtration Rate mL/min (>60) Glucose Level 83 MG/DL (74-106) Calcium Level 8.6 MG/DL (8.5-10.1) Intake and Output 12/02/18 12/03/18 19:00 07:00 Intake Total 320 ml Output Total 425 ml Balance 320 ml -425 ml Intake Oral 320 ml Output Urine Total 425 ml # Voids 3 Objective PHYSICAL EXAMINATION: GENERAL: The patient awake, responsive, no acute distress. HEAD AND NECK: Pupils are equal and reactive to light. Extraocular movements are intact. Neck was supple. No JVD LUNGS: Good air entry. No wheeze or rales. HEART: S1, S2. Distant heart sounds. No murmur or gallops. Pacemaker in left-sided chest wall. ABDOMEN: Soft, nondistended, nontender. EXTREMITIES: No cyanosis, clubbing, edema. Varicose veins, bilateral lower extremities. NEUROLOGIC: Cranial nerves II through XII grossly intact. Motor is 5/5 in all extremities. Gait is intact. RECTAL: Refused and deferred. GENITOURINARY: Refused and deferred. PSYCHIATRIC: Mood and affect is depressed. Assessment/Plan Assessment/Plan ASSESSMENT: 1. Chest pain, possible acute coronary syndrome. 2. Hypertension. 3. Dyslipidemia. 4. Congestive heart failure. 5. Coronary artery disease. 6. Sick sinus syndrome, status pacemaker. 7. UTI. 8. Pancytopenia-Severe anemia, Thrombocytopenia and leukopenia-resolving PLAN: Admit the patient to telemetry. Discussed case with Dr. Gee from Cardiology Electrophysiology. Await cardiac nuclear stress test-outpatient Dr. Luong, Pulmonary Critical Care. Urine cult=E. Coli. Continue Rocephin. DVT prophylaxis, heparin subcutaneous. Code status, Full Code. The patient is expected to be in the hospital greater than 2 days Discharge paln: [facility] S/P transfusion 2 units PRBC on 11/19/18 See Hematology consult-?acute myelocytic leukemia? Nikhil West MD Dec 03, 2018 17:31
[2018-12-03 20:00] VITALS: BP 123/50
--- NOTE | 2018-12-03 20:08 | Cardiac Electrophysiology PN ---
Assessment/Plan Assessment/Plan 1. Atypical chest pain and hx of CABG. Likely due to severe anemia. Ruled out NC. Nuclear stress test cancelled for severe anemia. Reschedule after pancytopenia is resolved On Lipitor and Coreg. Off Aspirin and Plavix for anemia and Plt 17 only 2. Cardiomyopathy. EF now 55%. On Coreg 12.5 mg bid. Off Lisinopril and Lasix 3. Status post [facility] atrial biventricular defibrillator. Interrogated and showed Nl Fx 4. Severe anemia, S/P PRBC. FU GI. 5. Pancytopenia with Platelet count of 17. Off Aspirin and PLavix S/P platelet transfusion. S/P BM biopsy 11/29/18. DW RN Subjective Subjective Very weak. No CP Objective Last 24 Hour Vital Signs Date Time Temp Pulse Resp B/P (MAP) Pulse Ox O2 Delivery O2 Flow Rate FiO2 12/03/18 16:00 98.0 64 17 108/57 (74) 100 12/03/18 12:00 98.1 63 15 99/56 (70) 99 12/03/18 09:00 Nasal Cannula 2.0 12/03/18 08:54 64 98/50 12/03/18 08:00 98.4 66 15 103/59 (74) 99 12/03/18 07:55 98 Nasal Cannula 2.0 28 12/03/18 07:55 Nasal Cannula 2.0 28 12/03/18 04:00 98.4 64 18 116/51 (72) 97 12/03/18 03:11 121/66 12/03/18 03:04 121/66 12/03/18 00:00 97.7 62 18 121/66 (84) 100 12/02/18 21:00 Nasal Cannula 2.0 12/02/18 20:31 62 129/97 Intake and Output 12/02/18 12/03/18 19:00 07:00 Intake Total 320 ml Output Total 425 ml Balance 320 ml -425 ml Intake Oral 320 ml Output Urine Total 425 ml # Voids 3 Laboratory Tests Test 12/03/18 05:35 White Blood Count 3.1 K/UL (4.8-10.8) L Red Blood Count 3.09 M/UL (4.70-6.10) L Hemoglobin 7.5 G/DL (14.2-18.0) L Hematocrit 24.0 % (42.0-52.0) L Mean Corpuscular Volume 78 FL (80-99) L Mean Corpuscular Hemoglobin 24.2 PG (27.0-31.0) L Mean Corpuscular Hemoglobin Concent 31.2 G/DL (32.0-36.0) L Red Cell Distribution Width 24.4 % (11.6-14.8) H Platelet Count 53 K/UL (150-450) L Mean Platelet Volume 6.2 FL (6.5-10.1) L Neutrophils (%) (Auto) % (45.0-75.0) Lymphocytes (%) (Auto) % (20.0-45.0) Monocytes (%) (Auto) % (1.0-10.0) Eosinophils (%) (Auto) % (0.0-3.0) Basophils (%) (Auto) % (0.0-2.0) Differential Total Cells Counted 100 Neutrophils % (Manual) 26 % (45-75) L Lymphocytes % (Manual) 55 % (20-45) H Monocytes % (Manual) 12 % (1-10) H Eosinophils % (Manual) 7 % (0-3) H Basophils % (Manual) 0 % (0-2) Band Neutrophils 0 % (0-8) Atypical Lymphocytes Rare Platelet Estimate Decreased L Platelet Morphology Giant Platelets 1+ Hypochromasia 2+ Basophilic Stippling Anisocytosis 3+ Microcytosis 2+ [place] Cells Occasional Schistocytes 1+ Sodium Level 135 MMOL/L (136-145) L Potassium Level 4.2 MMOL/L (3.5-5.1) Chloride Level 101 MMOL/L (98-107) Carbon Dioxide Level 29 MMOL/L (21-32) Anion Gap 5 mmol/L (5-15) Blood Urea Nitrogen 27 mg/dL (7-18) H Creatinine 1.0 MG/DL (0.55-1.30) Estimat Glomerular Filtration Rate mL/min (>60) Glucose Level 83 MG/DL (74-106) Calcium Level 8.6 MG/DL (8.5-10.1) Objective HEAD AND NECK: No JVD. LUNGS: Coarse rhonchi. CARDIOVASCULAR: Regular S1 and S2 with no gallop or murmur. Sternotomy is intact. Defibrillator is in left subclavian. ABDOMEN: Soft. EXTREMITIES: 1+ pitting edema. Satinder Gee MD Dec 03, 2018 20:08
[2018-12-03] MEDS: Atorvastatin 20mg tab ORAL SCH (21:50)
[2018-12-04] VITALS: BP 119/54
[2018-12-04 04:00] VITALS: BP 107/49
[2018-12-04] MEDS: Levothyroxine 25mcg tab ORAL SCH (06:41)
[2018-12-04 08:00] VITALS: BP 142/66
[2018-12-04] MEDS: Docusate 100mg cap ORAL SCH ×2 (08:52→20:27)
[2018-12-04] MEDS: Carvedilol 12.5mg tab ORAL SCH ×2 (08:53→20:28)
--- NOTE | 2018-12-04 09:15 | General Progress Note ---
Assessment/Plan Problem List: (1) History of CVA (cerebrovascular accident) ICD Codes: Z86.73 - Personal history of transient ischemic attack (TIA), and cerebral infarction without residual deficits SNOMED: 953539018 (2) Cardiomyopathy ICD Codes: I42.9 - Cardiomyopathy, unspecified SNOMED: 37157041 (3) Hypothyroidism ICD Codes: E03.9 - Hypothyroidism, unspecified SNOMED: 29496747 (4) HTN (hypertension) ICD Codes: I10 - Essential (primary) hypertension SNOMED: 34461938 (5) Severe thrombocytopenia ICD Codes: D69.6 - Thrombocytopenia, unspecified SNOMED: 159974926 (6) Anxiety disorder ICD Codes: F41.9 - Anxiety disorder, unspecified SNOMED: 016313634 (7) Severe anemia ICD Codes: D64.9 - Anemia, unspecified SNOMED: 218215788 (8) GERD (gastroesophageal reflux disease) ICD Codes: K21.9 - Gastro-esophageal reflux disease without esophagitis SNOMED: 929042304 (9) Pacemaker ICD Codes: Z95.0 - Presence of cardiac pacemaker SNOMED: 92533132, 814167279, 566894181 Assessment/Plan SUMMARY OF FINDINGS: 1. Gastritis. 2. A 6 cm hiatal hernia. RECOMMENDATIONS: Follow up biopsy results and treat accordingly. BM biopsy>>? leukemia>> fu oncology monitor H&H, prn transfusions. OB stool uncollected bowel regime ppi, add H2B qhs fu labs Outpatient hep C treatment Subjective ROS Limited/Unobtainable: No Allergies: Coded Allergies: No Known Allergies (Verified , 09/12/10) Objective Last 24 Hour Vital Signs Date Time Temp Pulse Resp B/P (MAP) Pulse Ox O2 Delivery O2 Flow Rate FiO2 12/04/18 08:53 73 142/66 12/04/18 08:00 98.1 73 19 142/66 (91) 97 12/04/18 04:00 98.1 67 18 107/49 (68) 99 12/04/18 02:46 99.0 12/04/18 00:00 99.0 64 18 119/54 (75) 98 12/03/18 21:50 64 123/50 12/03/18 21:00 Nasal Cannula 2.0 12/03/18 20:00 99.1 64 18 123/50 (74) 99 12/03/18 16:00 98.0 64 17 108/57 (74) 100 12/03/18 12:00 98.1 63 15 99/56 (70) 99 Intake and Output 12/03/18 12/04/18 18:59 06:59 Intake Total 450 ml Output Total 410 ml 650 ml Balance 40 ml -650 ml Intake Oral 450 ml Output Urine Total 410 ml 650 ml # Voids 3 5 Height (Feet): 5 Height (Inches): 5.00 Weight (Pounds): 151 General Appearance: no apparent distress EENT: normal ENT inspection Neck: supple Cardiovascular: normal rate Respiratory/Chest: decreased breath sounds Abdomen: normal bowel sounds, non tender, soft Extremities: non-tender Richie Mcguire MD Dec 04, 2018 09:15
[2018-12-04 10:55] LABS: HEMATOCRIT 24.5 % (42.0-52.0); MEAN CORPUSCULAR VOLUME 77 FL (80-99); PLATELET COUNT 94 K/UL (150-450); RED BLOOD COUNT 3.18 M/UL (4.70-6.10); RED CELL DISTRIBUTION WIDTH 24.6 % (11.6-14.8); WHITE BLOOD COUNT 3.8 K/UL (4.8-10.8)
[2018-12-04 10:58] LABS: ANION GAP 7 mmol/L (5-15); BLOOD UREA NITROGEN 27 mg/dL (7-18); CALCIUM 8.5 MG/DL (8.5-10.1); CARBON DIOXIDE 29 MMOL/L (21-32); CHLORIDE 100 MMOL/L (98-107); CREATININE 1.1 MG/DL (0.55-1.30); POTASSIUM 3.6 MMOL/L (3.5-5.1); SODIUM 136 MMOL/L (136-145)
--- NOTE | 2018-12-04 10:58 | General Progress Note ---
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 Transfuse prn. --> Epogen or iron at this time is not particularly indicated --> Medications have been reviewed # Reticulocytosis with elevated bilirubin that is indirect --> reviewed direct and indirect bilis again, trend could have liver disease --> liver US shows no significant cirrhosis --> evaluate as needed with gi team, recs apprecaited #. Chest pain, possible acute coronary syndrome. --> cards recs appreciated as well as pulm --> stress test prn #. Hypertension. #. Dyslipidemia. #. Congestive heart failure. #. Coronary artery disease. #. Sick sinus syndrome, status pacemaker. #. Acute E. coli UTI. #. Hep C+++ The timing of this note does not necessarily reflect the time of the patient was seen. Greatly appreciate consultation! Subjective Constitutional: Denies: no symptoms, chills, diaphoresis, fever, malaise, weakness, other HEENT: Denies: no symptoms, eye pain, blurred vision, tearing, double vision, ear pain, ear discharge, nose pain, nose congestion, throat pain, throat swelling, mouth pain, mouth swelling, other Cardiovascular: Denies: no symptoms, chest pain, edema, irregular heart rate, lightheadedness, palpitations, syncope, other Respiratory: Denies: no symptoms, cough, orthopnea, shortness of breath, SOB with excertion, SOB at rest, sputum, stridor, wheezing, other Gastrointestinal/Abdominal: Denies: no symptoms, abdomen distended, abdominal pain, black stools, tarry stools, blood in stool, constipated, diarrhea, difficulty swallowing, nausea, poor appetite, poor fluid intake, rectal bleeding , vomiting, other Genitourinary: Denies: no symptoms, burning, discharge, frequency, flank pain, hematuria, incontinence, pain, urgency, other Neurologic/Psychiatric: Denies: no symptoms, anxiety, depressed, emotional problems, headache, numbness, paresthesia, pre-existing deficit, seizure, tingling, tremors, weakness, other Endocrine: Denies: no symptoms, excessive sweating, flushing, intolerance to cold, intolerance to heat, increased hunger, increased thirst, increased urine, unexplained weight gain, unexplained weight loss, other Allergies: Coded Allergies: No Known Allergies (Verified , 09/12/10) Subjective 11/27: no events to report, no f/c 11/28: seen by bedside, plt 65, plan for EGD and bone marrow biopsy tomorrow 11/29: BM biopsy today, no acute distress. 11/30: Had BM biopsy yesterday and now in reverse isolation. hgb 7.5, will transfuse as needed. 12/01: seen by bedside, plt remains low, awaiting bone marrow biopsy results. 12/02: No acute distress, no chest pain, no shortness of breath, wbc 2.7, hgb 7.3 , plt 50, will transfuse as needed. S/P BM biopsy 11/29/18, Results pending 12/04: bone marrow biopsy completed, and show myeloblasts, c/w mds/leukemia, requires close surveillance Objective Last 24 Hour Vital Signs Date Time Temp Pulse Resp B/P (MAP) Pulse Ox O2 Delivery O2 Flow Rate FiO2 12/04/18 09:00 Nasal Cannula 2.0 12/04/18 08:53 73 142/66 3/3/19 08:00 98.1 73 19 142/66 (91) 97 12/04/18 04:00 98.1 67 18 107/49 (68) 99 12/04/18 02:46 99.0 12/04/18 00:00 99.0 64 18 119/54 (75) 98 12/03/18 21:50 64 123/50 12/03/18 21:00 Nasal Cannula 2.0 12/03/18 20:00 99.1 64 18 123/50 (74) 99 12/03/18 16:00 98.0 64 17 108/57 (74) 100 12/03/18 12:00 98.1 63 15 99/56 (70) 99 Intake and Output 12/03/18 12/04/18 18:59 06:59 Intake Total 450 ml Output Total 410 ml 650 ml Balance 40 ml -650 ml Intake Oral 450 ml Output Urine Total 410 ml 650 ml # Voids 3 5 Laboratory Tests 12/04/18 10:00: White Blood Count [Pending], Red Blood Count [Pending], Hemoglobin [Pending], Hematocrit [Pending], Mean Corpuscular Volume [Pending], Mean Corpuscular Hemoglobin [Pending], Mean Corpuscular Hemoglobin Concent [Pending], Red Cell Distribution Width [Pending], Platelet Count [Pending], Mean Platelet Volume [ Pending], Neutrophils (%) (Auto) [Pending], Lymphocytes (%) (Auto) [Pending], Monocytes (%) (Auto) [Pending], Eosinophils (%) (Auto) [Pending], Basophils (%) (Auto) [Pending], Sodium Level [Pending], Potassium Level [Pending], Chloride Level [Pending], Carbon Dioxide Level [Pending], Blood Urea Nitrogen [Pending], Creatinine [Pending], Estimat Glomerular Filtration Rate [Pending], Glucose Level [Pending], Calcium Level [Pending] Height (Feet): 5 Height (Inches): 5.00 Weight (Pounds): 151 Objective General Appearance: well appearing, nad, alert Head: normocephalic, atraumatic Eyes: b/l eye PERRL, bilateral eye EOMI ENT: hearing grossly normal, normal pharynx Neck: full range of motion, supple, no meningismus Respiratory: chest non-tender, lungs clear, normal breath sounds Cardiovascular: regular rate, rhythm, no murmur Gastrointestinal: normal bowel sounds, non tender, no mass, no organomegaly, no bruit, non-distended Musculoskeletal: back normal, normal range of motion Psychiatric: mood/affect normal Skin: warm/dry Jose Alberto España MD Dec 04, 2018 10:58
[2018-12-04] MEDS: Morphine Sulfate 4mg/ml Inj (IV USE ONLY) IVP PRN (11:43)
[2018-12-04 12:00] VITALS: BP 108/50
[2018-12-04 16:00] VITALS: BP 122/58
--- NOTE | 2018-12-04 16:10 | Pulmonology Progress Note ---
Assessment/Plan Problems: (1) Myeloblastic leukemia (2) Severe thrombocytopenia (3) ACS (acute coronary syndrome) (4) Cardiomyopathy (5) HTN (hypertension) (6) Pacemaker (7) Hypothyroidism (8) CAD (coronary artery disease) Assessment/Plan bone marrow biopsy done, increased myoblast flow cytometry pending PLT stable check electrolytes awaiting bone marrow biopsy results. flow cytometry abnormal all reviewed symptomatic treatment Subjective ROS Limited/Unobtainable: No Constitutional: Reports: no symptoms HEENT: Repors: no symptoms Respiratory: Reports: no symptoms Allergies: Coded Allergies: No Known Allergies (Verified , 09/12/10) Objective Last 24 Hour Vital Signs Date Time Temp Pulse Resp B/P (MAP) Pulse Ox O2 Delivery O2 Flow Rate FiO2 12/04/18 12:13 98.1 12/04/18 12:00 97.2 60 20 108/50 (69) 96 12/04/18 09:00 Nasal Cannula 2.0 12/04/18 08:53 73 142/66 12/04/18 08:00 98.1 73 19 142/66 (91) 97 12/04/18 04:00 98.1 67 18 107/49 (68) 99 12/04/18 02:46 99.0 12/04/18 00:00 99.0 64 18 119/54 (75) 98 12/03/18 21:50 64 123/50 12/03/18 21:00 Nasal Cannula 2.0 12/03/18 20:00 99.1 64 18 123/50 (74) 99 Intake and Output 12/03/18 12/04/18 19:00 07:00 Intake Total 450 ml Output Total 410 ml 650 ml Balance 40 ml -650 ml Intake Oral 450 ml Output Urine Total 410 ml 650 ml # Voids 3 5 Objective General Appearance: cachetic Lines, tubes and drains: peripheral HEENT: normocephalic, atraumatic Neck: non-tender, normal alignment Respiratory/Chest: chest wall non-tender, lungs clear Breasts: no masses Cardiovascular/Chest: normal peripheral pulses, normal rate Abdomen: normal bowel sounds, non tender Genitourinary/Rectal: normal genital exam Extremities: normal range of motion Skin Exam: normal pigmentation 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 Laboratory Tests 12/04/18 10:00: White Blood Count 3.8L, Red Blood Count 3.18L, Hemoglobin 8.0L, Hematocrit 24.5L , Mean Corpuscular Volume 77L, Mean Corpuscular Hemoglobin 25.1L, Mean Corpuscular Hemoglobin Concent 32.7, Red Cell Distribution Width 24.6H, Platelet Count 94#L, Mean Platelet Volume 14.3H, Neutrophils (%) (Auto) , Lymphocytes (%) (Auto) , Monocytes (%) (Auto) , Eosinophils (%) (Auto) , Basophils (%) (Auto) , Differential Total Cells Counted 100, Neutrophils % ( Manual) 35L, Lymphocytes % (Manual) 49H, Monocytes % (Manual) 15H, Eosinophils % (Manual) 1, Basophils % (Manual) 0, Band Neutrophils 0, Platelet Estimate DecreasedL, Platelet Morphology , Giant Platelets 1+, Hypochromasia 1+, Anisocytosis 3+, Microcytosis 2+, Schistocytes 1+, Sodium Level 136, Potassium Level 3.6, Chloride Level 100, Carbon Dioxide Level 29, Anion Gap 7, Blood Urea Nitrogen 27H, Creatinine 1.1, Estimat Glomerular Filtration Rate , Glucose Level 148H, Calcium Level 8.5 Current Medications Medications (Trade) Dose Ordered Sig/Scout Route PRN Reason Start Time Stop Time Status Last Admin Dose Admin Acetaminophen (Tylenol) 650 mg Q4H PRN ORAL Mild Pain (Pain Scale 1-3) 11/28/18 17:02 12/18/18 17:01 12/04/18 02:16 Acetaminophen (Tylenol) 650 mg Q4H PRN ORAL fever 11/28/18 17:02 12/18/18 17:01 Acetaminophen (Tylenol) 650 mg Q4H PRN RECTAL Mild Pain (Pain Scale 1-3) 11/28/18 17:02 12/18/18 17:01 Atorvastatin Calcium (Lipitor) 40 mg BEDTIME ORAL 11/28/18 21:00 12/18/18 20:59 12/03/18 21:50 Bisacodyl (Dulcolax) 10 mg DAILYPRN PRN RECTAL Constipation 11/28/18 17:02 12/28/18 17:01 Carvedilol (Coreg) 12.5 mg EVERY 12 HOURS ORAL 11/28/18 21:00 12/18/18 20:59 12/04/18 08:53 Dextrose (Dextrose 50%) 25 ml Q30M PRN IV Hypoglycemia 11/28/18 17:15 12/18/18 10:14 Dextrose (Dextrose 50%) 50 ml Q30M PRN IV Hypoglycemia 11/28/18 17:15 12/18/18 10:14 Docusate Sodium (Colace) 100 mg EVERY 12 HOURS ORAL 11/28/18 21:00 12/18/18 20:59 12/04/18 08:52 Escitalopram Oxalate (Lexapro) 15 mg DAILY ORAL 11/29/18 09:00 12/24/18 08:59 12/04/18 08:53 Famotidine (Pepcid) 20 mg QHS ORAL 11/30/18 21:00 12/30/18 20:59 12/03/18 21:49 Levothyroxine Sodium (Synthroid) 25 mcg Q24H ORAL 11/29/18 06:30 12/19/18 06:29 12/04/18 06:41 Magnesium Hydroxide (Mom) 30 ml HSPRN PRN ORAL Constipation 11/29/18 17:03 12/18/18 17:02 Morphine Sulfate (Morphine Sulfate) 2 mg Q4H PRN IVP Moderate Pain (Pain Scale 4-6) 12/04/18 10:00 12/11/18 09:59 Morphine Sulfate (Morphine Sulfate) 4 mg Q4H PRN IVP Severe Pain (Pain Scale 7-10) 12/04/18 10:00 12/11/18 09:59 12/04/18 11:43 Nitroglycerin (Ntg) 0.4 mg Q5M PRN SL Prn Chest Pain 11/28/18 17:05 12/18/18 10:14 12/03/18 03:11 Ondansetron HCl (Zofran) 4 mg Q6H PRN IVP Nausea & Vomiting 11/28/18 17:03 12/18/18 17:02 12/03/18 17:16 Pantoprazole (Protonix) 40 mg DAILY ORAL 11/29/18 09:00 12/19/18 08:59 12/04/18 08:53 Polyethylene Glycol (Miralax) 17 gm DAILYPRN PRN ORAL Constipation 11/28/18 17:04 12/28/18 17:03 12/02/18 09:01 Chepe Luong MD Dec 04, 2018 16:10
--- NOTE | 2018-12-04 16:56 | Internal Med Progress Note ---
Subjective Date of Service: Dec 04, 2018 Physician Name Nikhil West Attending Physician Abdias Hunter MD Current Medications Medications (Trade) Dose Ordered Sig/Scout Route PRN Reason Start Time Stop Time Status Last Admin Dose Admin Acetaminophen (Tylenol) 650 mg Q4H PRN ORAL Mild Pain (Pain Scale 1-3) 11/28/18 17:02 12/18/18 17:01 12/04/18 02:16 Acetaminophen (Tylenol) 650 mg Q4H PRN ORAL fever 11/28/18 17:02 12/18/18 17:01 Acetaminophen (Tylenol) 650 mg Q4H PRN RECTAL Mild Pain (Pain Scale 1-3) 11/28/18 17:02 12/18/18 17:01 Atorvastatin Calcium (Lipitor) 40 mg BEDTIME ORAL 11/28/18 21:00 12/18/18 20:59 12/03/18 21:50 Bisacodyl (Dulcolax) 10 mg DAILYPRN PRN RECTAL Constipation 11/28/18 17:02 12/28/18 17:01 Carvedilol (Coreg) 12.5 mg EVERY 12 HOURS ORAL 11/28/18 21:00 12/18/18 20:59 12/04/18 08:53 Dextrose (Dextrose 50%) 25 ml Q30M PRN IV Hypoglycemia 11/28/18 17:15 12/18/18 10:14 Dextrose (Dextrose 50%) 50 ml Q30M PRN IV Hypoglycemia 11/28/18 17:15 12/18/18 10:14 Docusate Sodium (Colace) 100 mg EVERY 12 HOURS ORAL 11/28/18 21:00 12/18/18 20:59 12/04/18 08:52 Escitalopram Oxalate (Lexapro) 15 mg DAILY ORAL 11/29/18 09:00 12/24/18 08:59 12/04/18 08:53 Famotidine (Pepcid) 20 mg QHS ORAL 11/30/18 21:00 12/30/18 20:59 12/03/18 21:49 Levothyroxine Sodium (Synthroid) 25 mcg Q24H ORAL 11/29/18 06:30 12/19/18 06:29 12/04/18 06:41 Magnesium Hydroxide (Mom) 30 ml HSPRN PRN ORAL Constipation 11/29/18 17:03 12/18/18 17:02 Morphine Sulfate (Morphine Sulfate) 2 mg Q4H PRN IVP Moderate Pain (Pain Scale 4-6) 12/04/18 10:00 12/11/18 09:59 Morphine Sulfate (Morphine Sulfate) 4 mg Q4H PRN IVP Severe Pain (Pain Scale 7-10) 12/04/18 10:00 12/11/18 09:59 12/04/18 11:43 Nitroglycerin (Ntg) 0.4 mg Q5M PRN SL Prn Chest Pain 11/28/18 17:05 12/18/18 10:14 12/03/18 03:11 Ondansetron HCl (Zofran) 4 mg Q6H PRN IVP Nausea & Vomiting 11/28/18 17:03 12/18/18 17:02 12/03/18 17:16 Pantoprazole (Protonix) 40 mg DAILY ORAL 11/29/18 09:00 12/19/18 08:59 12/04/18 08:53 Polyethylene Glycol (Miralax) 17 gm DAILYPRN PRN ORAL Constipation 11/28/18 17:04 12/28/18 17:03 12/02/18 09:01 Allergies: Coded Allergies: No Known Allergies (Verified , 09/12/10) ROS Limited/Unobtainable: No Constitutional: Reports: no symptoms HEENT: Reports: no symptoms Cardiovascular: Reports: no symptoms Respiratory: Reports: no symptoms Gastrointestinal/Abdominal: Reports: no symptoms Genitourinary: Reports: no symptoms Neurologic/Psychiatric: Reports: no symptoms Subjective 78 YO M admitted with chest pain. Now pancytopenia and UTI. Cover for Int Med- Dr Hunter. Objective Last Vital Signs Date Time Temp Pulse Resp B/P (MAP) Pulse Ox O2 Delivery O2 Flow Rate FiO2 12/04/18 12:13 98.1 12/04/18 12:00 60 20 108/50 (69) 96 12/04/18 09:00 Nasal Cannula 2.0 12/03/18 07:55 28 Laboratory Tests Test 12/04/18 10:00 White Blood Count 3.8 K/UL (4.8-10.8) L Red Blood Count 3.18 M/UL (4.70-6.10) L Hemoglobin 8.0 G/DL (14.2-18.0) L Hematocrit 24.5 % (42.0-52.0) L Mean Corpuscular Volume 77 FL (80-99) L Mean Corpuscular Hemoglobin 25.1 PG (27.0-31.0) L Mean Corpuscular Hemoglobin Concent 32.7 G/DL (32.0-36.0) Red Cell Distribution Width 24.6 % (11.6-14.8) H Platelet Count 94 K/UL (150-450) #L Mean Platelet Volume 14.3 FL (6.5-10.1) H Neutrophils (%) (Auto) % (45.0-75.0) Lymphocytes (%) (Auto) % (20.0-45.0) Monocytes (%) (Auto) % (1.0-10.0) Eosinophils (%) (Auto) % (0.0-3.0) Basophils (%) (Auto) % (0.0-2.0) Differential Total Cells Counted 100 Neutrophils % (Manual) 35 % (45-75) L Lymphocytes % (Manual) 49 % (20-45) H Monocytes % (Manual) 15 % (1-10) H Eosinophils % (Manual) 1 % (0-3) Basophils % (Manual) 0 % (0-2) Band Neutrophils 0 % (0-8) Platelet Estimate Decreased L Platelet Morphology Giant Platelets 1+ Hypochromasia 1+ Anisocytosis 3+ Microcytosis 2+ Schistocytes 1+ Sodium Level 136 MMOL/L (136-145) Potassium Level 3.6 MMOL/L (3.5-5.1) Chloride Level 100 MMOL/L (98-107) Carbon Dioxide Level 29 MMOL/L (21-32) Anion Gap 7 mmol/L (5-15) Blood Urea Nitrogen 27 mg/dL (7-18) H Creatinine 1.1 MG/DL (0.55-1.30) Estimat Glomerular Filtration Rate mL/min (>60) Glucose Level 148 MG/DL (74-106) H Calcium Level 8.5 MG/DL (8.5-10.1) Intake and Output 12/03/18 12/04/18 19:00 07:00 Intake Total 450 ml Output Total 410 ml 650 ml Balance 40 ml -650 ml Intake Oral 450 ml Output Urine Total 410 ml 650 ml # Voids 3 5 Objective PHYSICAL EXAMINATION: GENERAL: The patient awake, responsive, no acute distress. HEAD AND NECK: Pupils are equal and reactive to light. Extraocular movements are intact. Neck was supple. No JVD LUNGS: Good air entry. No wheeze or rales. HEART: S1, S2. Distant heart sounds. No murmur or gallops. Pacemaker in left-sided chest wall. ABDOMEN: Soft, nondistended, nontender. EXTREMITIES: No cyanosis, clubbing, edema. Varicose veins, bilateral lower extremities. NEUROLOGIC: Cranial nerves II through XII grossly intact. Motor is 5/5 in all extremities. Gait is intact. RECTAL: Refused and deferred. GENITOURINARY: Refused and deferred. PSYCHIATRIC: Mood and affect is depressed. Assessment/Plan Assessment/Plan ASSESSMENT: 1. Chest pain, possible acute coronary syndrome. 2. Hypertension. 3. Dyslipidemia. 4. Congestive heart failure. 5. Coronary artery disease. 6. Sick sinus syndrome, status pacemaker. 7. UTI. 8. Pancytopenia-Severe anemia, Thrombocytopenia and leukopenia-?leukemia? see onc note. PLAN: Admit the patient to telemetry. Discussed case with Dr. Gee from Cardiology Electrophysiology. Await cardiac nuclear stress test-outpatient Dr. Luong, Pulmonary Critical Care. Urine cult=E. Coli. Continue Rocephin. DVT prophylaxis, heparin subcutaneous. Code status, Full Code. The patient is expected to be in the hospital greater than 2 days Discharge paln: [facility] S/P transfusion 2 units PRBC on 11/19/18 See Hematology consult-?acute myelocytic leukemia? Nikhil West MD Dec 04, 2018 16:56
[2018-12-04 20:00] VITALS: BP 137/62
[2018-12-04] MEDS: Atorvastatin 20mg tab ORAL SCH (20:28)
[2018-12-04] MEDS: Morphine Sulfate 2mg/ml Inj(IV/IM USE ONLY) IVP PRN (21:17)
[2018-12-04] MEDS: Nitroglycerin Subl 0.4mg tab SL PRN (23:10)
[2018-12-05] VITALS: BP 125/62
[2018-12-05] MEDS: Morphine Sulfate 2mg/ml Inj(IV/IM USE ONLY) IVP PRN (03:29)
[2018-12-05 04:00] VITALS: BP 108/57
[2018-12-05] MEDS: Levothyroxine 25mcg tab ORAL SCH (06:09)
[2018-12-05] MEDS: Nitroglycerin Subl 0.4mg tab SL PRN ×3 (06:09→23:58)
[2018-12-05 07:13] LABS: HEMATOCRIT 21.4 % (42.0-52.0); MEAN CORPUSCULAR VOLUME 77 FL (80-99); PLATELET COUNT 109 K/UL (150-450); RED BLOOD COUNT 2.77 M/UL (4.70-6.10); WHITE BLOOD COUNT 3.9 K/UL (4.8-10.8)
[2018-12-05 07:19] LABS: HEMOGLOBIN 6.9 G/DL (14.2-18.0)
[2018-12-05 07:25] LABS: ALANINE AMINOTRANSFERASE 21 U/L (12-78); ALBUMIN 2.7 G/DL (3.4-5.0); ALBUMIN/GLOBULIN RATIO 0.7 (1.0-2.7); ALKALINE PHOSPHATASE 55 U/L (46-116); ANION GAP 5 mmol/L (5-15); ASPARTATE AMINO TRANSFERASE 20 U/L (15-37); BILIRUBIN,TOTAL 0.9 MG/DL (0.2-1.0); BLOOD UREA NITROGEN 22 mg/dL (7-18); CALCIUM 8.4 MG/DL (8.5-10.1); CARBON DIOXIDE 30 MMOL/L (21-32); CHLORIDE 101 MMOL/L (98-107); CREATININE 0.9 MG/DL (0.55-1.30); POTASSIUM 3.9 MMOL/L (3.5-5.1); SODIUM 136 MMOL/L (136-145)
[2018-12-05 08:00] VITALS: BP 159/75
[2018-12-05] MEDS: Docusate 100mg cap ORAL SCH ×2 (08:01→21:07)
[2018-12-05] MEDS: Carvedilol 12.5mg tab ORAL SCH ×2 (08:02→21:07)
[2018-12-05] MEDS: Morphine Sulfate 4mg/ml Inj (IV USE ONLY) IVP PRN ×3 (08:02→21:08)
--- NOTE | 2018-12-05 11:07 | GI Progress Note ---
Assessment/Plan Problems: (1) History of CVA (cerebrovascular accident) ICD Codes: Z86.73 - Personal history of transient ischemic attack (TIA), and cerebral infarction without residual deficits SNOMED: 600870973 (2) Severe anemia ICD Codes: D64.9 - Anemia, unspecified SNOMED: 024626694 (3) Abdominal pain ICD Codes: R10.9 - Unspecified abdominal pain SNOMED: 20277852 (4) GERD (gastroesophageal reflux disease) ICD Codes: K21.9 - Gastro-esophageal reflux disease without esophagitis SNOMED: 922840469 Status: unchanged Status Narrative Discussed with Dr. Mcguire Assessment/Plan SUMMARY OF FINDINGS: 1. Gastritis. 2. A 6 cm hiatal hernia. RECOMMENDATIONS: Follow up biopsy results and treat accordingly. BM biopsy>>? leukemia>> fu oncology monitor H&H, prn transfusions. OB stool uncollected bowel regime ppi, add H2B qhs fu labs Outpatient hep C treatment The patient was seen and examined at bedside and all new and available data was reviewed in the patients chart. I agree with the above findings, impression and plan. (Patient seen earlier today. Signature stamp does not reflect patient encounter time.). - Richie Mcguire MD Subjective Gastrointestinal/Abdominal: Reports: no symptoms Subjective Overall improved Objective Last 24 Hour Vital Signs Date Time Temp Pulse Resp B/P (MAP) Pulse Ox O2 Delivery O2 Flow Rate FiO2 12/05/18 09:00 Nasal Cannula 2.0 12/05/18 08:32 97.5 12/05/18 08:02 74 159/75 12/05/18 08:00 98.2 74 20 159/75 (103) 98 12/05/18 07:53 Nasal Cannula 2.0 28 12/05/18 07:53 99 Nasal Cannula 2.0 28 12/05/18 06:09 108/57 12/05/18 04:00 97.5 60 18 108/57 (74) 100 12/05/18 00:00 98.3 72 20 125/62 (83) 99 12/04/18 23:10 122/58 12/04/18 21:00 Nasal Cannula 2.0 12/04/18 20:28 62 122/58 12/04/18 20:00 97.7 67 18 137/62 (87) 98 12/04/18 16:00 97.2 62 20 122/58 (79) 100 12/04/18 12:00 97.2 60 20 108/50 (69) 96 Intake and Output 12/04/18 12/05/18 18:59 06:59 Intake Total 550 ml 700 ml Output Total 500 ml 1200 ml Balance 50 ml -500 ml Intake Oral 550 ml 700 ml Output Urine Total 500 ml 1200 ml # Voids 3 Laboratory Tests Test 12/05/18 06:25 White Blood Count 3.9 K/UL (4.8-10.8) L Red Blood Count 2.77 M/UL (4.70-6.10) L Hemoglobin 6.9 G/DL (14.2-18.0) *L Hematocrit 21.4 % (42.0-52.0) L Mean Corpuscular Volume 77 FL (80-99) L Mean Corpuscular Hemoglobin 25.1 PG (27.0-31.0) L Mean Corpuscular Hemoglobin Concent 32.4 G/DL (32.0-36.0) Red Cell Distribution Width 25.0 % (11.6-14.8) H Platelet Count 109 K/UL (150-450) L Mean Platelet Volume 12.4 FL (6.5-10.1) H Neutrophils (%) (Auto) % (45.0-75.0) Lymphocytes (%) (Auto) % (20.0-45.0) Monocytes (%) (Auto) % (1.0-10.0) Eosinophils (%) (Auto) % (0.0-3.0) Basophils (%) (Auto) % (0.0-2.0) Neutrophils % (Manual) Pending Lymphocytes % (Manual) Pending Platelet Estimate Pending Platelet Morphology Pending Sodium Level 136 MMOL/L (136-145) Potassium Level 3.9 MMOL/L (3.5-5.1) Chloride Level 101 MMOL/L (98-107) Carbon Dioxide Level 30 MMOL/L (21-32) Anion Gap 5 mmol/L (5-15) Blood Urea Nitrogen 22 mg/dL (7-18) H Creatinine 0.9 MG/DL (0.55-1.30) Estimat Glomerular Filtration Rate mL/min (>60) Glucose Level 91 MG/DL (74-106) Calcium Level 8.4 MG/DL (8.5-10.1) L Total Bilirubin 0.9 MG/DL (0.2-1.0) Aspartate Amino Transf (AST/SGOT) 20 U/L (15-37) Alanine Aminotransferase (ALT/SGPT) 21 U/L (12-78) Alkaline Phosphatase 55 U/L (46-116) Total Protein 6.7 G/DL (6.4-8.2) Albumin 2.7 G/DL (3.4-5.0) L Globulin 4.0 g/dL Albumin/Globulin Ratio 0.7 (1.0-2.7) L Height (Feet): 5 Height (Inches): 5.00 Weight (Pounds): 152 General Appearance: WD/WN, no apparent distress, alert Cardiovascular: normal rate Respiratory/Chest: normal breath sounds, no respiratory distress Abdominal Exam: normal bowel sounds, non tender, soft Extremities: normal range of motion, non-tender Jason Gray NP Dec 05, 2018 11:07
[2018-12-05 11:44] VITALS: BP 110/51
--- NOTE | 2018-12-05 14:23 | Pulmonology Progress Note ---
Assessment/Plan Problems: (1) Myeloblastic leukemia (2) Severe thrombocytopenia (3) ACS (acute coronary syndrome) (4) Cardiomyopathy (5) HTN (hypertension) (6) Pacemaker (7) Hypothyroidism (8) CAD (coronary artery disease) Assessment/Plan all reviewed flow cytometry pending PLT stable check electrolytes awaiting bone marrow biopsy results. flow cytometry abnormal all reviewed symptomatic treatment Subjective ROS Limited/Unobtainable: No Constitutional: Reports: no symptoms HEENT: Repors: no symptoms Respiratory: Reports: no symptoms Allergies: Coded Allergies: No Known Allergies (Verified , 09/12/10) Objective Last 24 Hour Vital Signs Date Time Temp Pulse Resp B/P (MAP) Pulse Ox O2 Delivery O2 Flow Rate FiO2 12/05/18 11:44 98.4 63 16 110/51 (70) 99 12/05/18 09:00 Nasal Cannula 2.0 12/05/18 08:32 97.5 12/05/18 08:02 74 159/75 12/05/18 08:00 98.2 74 20 159/75 (103) 98 12/05/18 07:53 Nasal Cannula 2.0 28 12/05/18 07:53 99 Nasal Cannula 2.0 28 12/05/18 06:09 108/57 12/05/18 04:00 97.5 60 18 108/57 (74) 100 12/05/18 00:00 98.3 72 20 125/62 (83) 99 12/04/18 23:10 122/58 12/04/18 21:00 Nasal Cannula 2.0 12/04/18 20:28 62 122/58 12/04/18 20:00 97.7 67 18 137/62 (87) 98 12/04/18 16:00 97.2 62 20 122/58 (79) 100 Intake and Output 12/04/18 12/05/18 18:59 06:59 Intake Total 550 ml 700 ml Output Total 500 ml 1200 ml Balance 50 ml -500 ml Intake Oral 550 ml 700 ml Output Urine Total 500 ml 1200 ml # Voids 3 Objective General Appearance: cachetic Lines, tubes and drains: peripheral HEENT: normocephalic, atraumatic Neck: non-tender, normal alignment Respiratory/Chest: chest wall non-tender, lungs clear Breasts: no masses Cardiovascular/Chest: normal peripheral pulses, normal rate Abdomen: normal bowel sounds, non tender Genitourinary/Rectal: normal genital exam Extremities: normal range of motion Skin Exam: normal pigmentation Neurologic: silo tender II-XII grossly normal Laboratory Tests 12/05/18 06:25: White Blood Count 3.9L, Red Blood Count 2.77L, Hemoglobin 6.9*L, Hematocrit 21.4L, Mean Corpuscular Volume 77L, Mean Corpuscular Hemoglobin 25.1L, Mean Corpuscular Hemoglobin Concent 32.4, Red Cell Distribution Width 25.0H, Platelet Count 109L, Mean Platelet Volume 12.4H, Neutrophils (%) (Auto) , Lymphocytes (%) (Auto) , Monocytes (%) (Auto) , Eosinophils (%) (Auto) , Basophils (%) (Auto) , Differential Total Cells Counted 100, Neutrophils % ( Manual) 27L, Lymphocytes % (Manual) 49H, Monocytes % (Manual) 11H, Eosinophils % (Manual) 2, Basophils % (Manual) 1, Myelocytes % 1H, Blast Cells % 2*H, Band Neutrophils 7, Platelet Estimate DecreasedL, Platelet Morphology See comment, Giant Platelets 1+, Anisocytosis 2+, Microcytosis 2+, Agatha Cells 2+, Sodium Level 136, Potassium Level 3.9, Chloride Level 101, Carbon Dioxide Level 30, Anion Gap 5, Blood Urea Nitrogen 22H, Creatinine 0.9, Estimat Glomerular Filtration Rate , Glucose Level 91, Calcium Level 8.4L, Total Bilirubin 0.9, Aspartate Amino Transf (AST/SGOT) 20, Alanine Aminotransferase (ALT/SGPT) 21, Alkaline Phosphatase 55, Total Protein 6.7, Albumin 2.7L, Globulin 4.0, Albumin/ Globulin Ratio 0.7L Current Medications Medications (Trade) Dose Ordered Sig/Scout Route PRN Reason Start Time Stop Time Status Last Admin Dose Admin Acetaminophen (Tylenol) 650 mg Q4H PRN ORAL Mild Pain (Pain Scale 1-3) 11/28/18 17:02 12/18/18 17:01 12/04/18 02:16 Acetaminophen (Tylenol) 650 mg Q4H PRN ORAL fever 11/28/18 17:02 12/18/18 17:01 Acetaminophen (Tylenol) 650 mg Q4H PRN RECTAL Mild Pain (Pain Scale 1-3) 11/28/18 17:02 12/18/18 17:01 Atorvastatin Calcium (Lipitor) 40 mg BEDTIME ORAL 11/28/18 21:00 12/18/18 20:59 12/04/18 20:28 Bisacodyl (Dulcolax) 10 mg DAILYPRN PRN RECTAL Constipation 11/28/18 17:02 12/28/18 17:01 Carvedilol (Coreg) 12.5 mg EVERY 12 HOURS ORAL 11/28/18 21:00 12/18/18 20:59 12/05/18 08:02 Dextrose (Dextrose 50%) 25 ml Q30M PRN IV Hypoglycemia 11/28/18 17:15 12/18/18 10:14 Dextrose (Dextrose 50%) 50 ml Q30M PRN IV Hypoglycemia 11/28/18 17:15 12/18/18 10:14 Docusate Sodium (Colace) 100 mg EVERY 12 HOURS ORAL 11/28/18 21:00 12/18/18 20:59 12/05/18 08:01 Escitalopram Oxalate (Lexapro) 15 mg DAILY ORAL 11/29/18 09:00 12/24/18 08:59 12/05/18 08:01 Famotidine (Pepcid) 20 mg QHS ORAL 11/30/18 21:00 12/30/18 20:59 12/04/18 20:27 Levothyroxine Sodium (Synthroid) 25 mcg Q24H ORAL 11/29/18 06:30 12/19/18 06:29 12/05/18 06:09 Magnesium Hydroxide (Mom) 30 ml HSPRN PRN ORAL Constipation 11/29/18 17:03 12/18/18 17:02 Morphine Sulfate (Morphine Sulfate) 2 mg Q4H PRN IVP Moderate Pain (Pain Scale 4-6) 12/04/18 10:00 12/11/18 09:59 12/05/18 03:29 Morphine Sulfate (Morphine Sulfate) 4 mg Q4H PRN IVP Severe Pain (Pain Scale 7-10) 12/04/18 10:00 12/11/18 09:59 12/05/18 08:02 Nitroglycerin (Ntg) 0.4 mg Q5M PRN SL Prn Chest Pain 11/28/18 17:05 12/18/18 10:14 12/05/18 06:09 Ondansetron HCl (Zofran) 4 mg Q6H PRN IVP Nausea & Vomiting 11/28/18 17:03 12/18/18 17:02 12/03/18 17:16 Pantoprazole (Protonix) 40 mg DAILY ORAL 11/29/18 09:00 12/19/18 08:59 12/05/18 08:02 Polyethylene Glycol (Miralax) 17 gm DAILYPRN PRN ORAL Constipation 11/28/18 17:04 12/28/18 17:03 12/02/18 09:01 Chepe Luong MD Dec 05, 2018 14:23
[2018-12-05 16:00] VITALS: BP 110/56
--- NOTE | 2018-12-05 16:52 | Cardiac Electrophysiology PN ---
Assessment/Plan Assessment/Plan 1. Atypical chest pain and hx of CABG. Likely due to severe anemia. Ruled out NC. Nuclear stress test cancelled for severe anemia. Reschedule after pancytopenia is resolved On Lipitor and Coreg. Off Aspirin and Plavix for anemia and Plt 17 only 2. Cardiomyopathy. EF now 55%. On Coreg 12.5 mg bid. Off Lisinopril and Lasix 3. Status post [facility] atrial biventricular defibrillator. Interrogated and showed Nl Fx 4. Severe anemia, S/P PRBC. FU GI. 5. Pancytopenia with Platelet count of 17. Off Aspirin and PLavix S/P platelet transfusion. S/P BM biopsy 11/29/18.S/P PRBC today Bone marrow bipsy/aspiration concerning for LEUKEMIA with 8.7% myeloblasts, may need outpatient followup with Vidaza (IV or SQ) hypomethylating agent per Dr Dayami CORTEZ RN Subjective Subjective Had blood transfusion today Objective Last 24 Hour Vital Signs Date Time Temp Pulse Resp B/P (MAP) Pulse Ox O2 Delivery O2 Flow Rate FiO2 12/05/18 16:00 98.1 65 16 110/56 (74) 99 12/05/18 11:44 98.4 63 16 110/51 (70) 99 12/05/18 09:00 Nasal Cannula 2.0 12/05/18 08:32 97.5 12/05/18 08:02 74 159/75 12/05/18 08:00 98.2 74 20 159/75 (103) 98 12/05/18 07:53 Nasal Cannula 2.0 28 12/05/18 07:53 99 Nasal Cannula 2.0 28 12/05/18 06:09 108/57 12/05/18 04:00 97.5 60 18 108/57 (74) 100 12/05/18 00:00 98.3 72 20 125/62 (83) 99 12/04/18 23:10 122/58 12/04/18 21:00 Nasal Cannula 2.0 12/04/18 20:28 62 122/58 12/04/18 20:00 97.7 67 18 137/62 (87) 98 Intake and Output 12/04/18 12/05/18 19:00 07:00 Intake Total 550 ml 700 ml Output Total 500 ml 1200 ml Balance 50 ml -500 ml Intake Oral 550 ml 700 ml Output Urine Total 500 ml 1200 ml # Voids 3 Laboratory Tests Test 12/05/18 06:25 White Blood Count 3.9 K/UL (4.8-10.8) L Red Blood Count 2.77 M/UL (4.70-6.10) L Hemoglobin 6.9 G/DL (14.2-18.0) *L Hematocrit 21.4 % (42.0-52.0) L Mean Corpuscular Volume 77 FL (80-99) L Mean Corpuscular Hemoglobin 25.1 PG (27.0-31.0) L Mean Corpuscular Hemoglobin Concent 32.4 G/DL (32.0-36.0) Red Cell Distribution Width 25.0 % (11.6-14.8) H Platelet Count 109 K/UL (150-450) L Mean Platelet Volume 12.4 FL (6.5-10.1) H Neutrophils (%) (Auto) % (45.0-75.0) Lymphocytes (%) (Auto) % (20.0-45.0) Monocytes (%) (Auto) % (1.0-10.0) Eosinophils (%) (Auto) % (0.0-3.0) Basophils (%) (Auto) % (0.0-2.0) Differential Total Cells Counted 100 Neutrophils % (Manual) 27 % (45-75) L Lymphocytes % (Manual) 49 % (20-45) H Monocytes % (Manual) 11 % (1-10) H Eosinophils % (Manual) 2 % (0-3) Basophils % (Manual) 1 % (0-2) Myelocytes % 1 % (0-0) H Blast Cells % 2 % (0-0) *H Band Neutrophils 7 % (0-8) Platelet Estimate Decreased L Platelet Morphology See comment Giant Platelets 1+ Anisocytosis 2+ Microcytosis 2+ [place]bilt Cells 2+ Sodium Level 136 MMOL/L (136-145) Potassium Level 3.9 MMOL/L (3.5-5.1) Chloride Level 101 MMOL/L (98-107) Carbon Dioxide Level 30 MMOL/L (21-32) Anion Gap 5 mmol/L (5-15) Blood Urea Nitrogen 22 mg/dL (7-18) H Creatinine 0.9 MG/DL (0.55-1.30) Estimat Glomerular Filtration Rate mL/min (>60) Glucose Level 91 MG/DL (74-106) Calcium Level 8.4 MG/DL (8.5-10.1) L Total Bilirubin 0.9 MG/DL (0.2-1.0) Aspartate Amino Transf (AST/SGOT) 20 U/L (15-37) Alanine Aminotransferase (ALT/SGPT) 21 U/L (12-78) Alkaline Phosphatase 55 U/L (46-116) Total Protein 6.7 G/DL (6.4-8.2) Albumin 2.7 G/DL (3.4-5.0) L Globulin 4.0 g/dL Albumin/Globulin Ratio 0.7 (1.0-2.7) L Objective HEAD AND NECK: No JVD. LUNGS: Coarse rhonchi. CARDIOVASCULAR: Regular S1 and S2 with no gallop or murmur. Sternotomy is intact. Defibrillator is in left subclavian. ABDOMEN: Soft. EXTREMITIES: 1+ pitting edema. Satinder Gee MD Dec 05, 2018 16:52
--- NOTE | 2018-12-05 19:28 | Internal Med Progress Note ---
Subjective Date of Service: Dec 05, 2018 Physician Name Nikhil West Attending Physician Abdias Hunter MD Current Medications Medications (Trade) Dose Ordered Sig/Scout Route PRN Reason Start Time Stop Time Status Last Admin Dose Admin Acetaminophen (Tylenol) 650 mg Q4H PRN ORAL Mild Pain (Pain Scale 1-3) 11/28/18 17:02 12/18/18 17:01 12/04/18 02:16 Acetaminophen (Tylenol) 650 mg Q4H PRN ORAL fever 11/28/18 17:02 12/18/18 17:01 Acetaminophen (Tylenol) 650 mg Q4H PRN RECTAL Mild Pain (Pain Scale 1-3) 11/28/18 17:02 12/18/18 17:01 Atorvastatin Calcium (Lipitor) 40 mg BEDTIME ORAL 11/28/18 21:00 12/18/18 20:59 12/04/18 20:28 Bisacodyl (Dulcolax) 10 mg DAILYPRN PRN RECTAL Constipation 11/28/18 17:02 12/28/18 17:01 Carvedilol (Coreg) 12.5 mg EVERY 12 HOURS ORAL 11/28/18 21:00 12/18/18 20:59 12/05/18 08:02 Dextrose (Dextrose 50%) 25 ml Q30M PRN IV Hypoglycemia 11/28/18 17:15 12/18/18 10:14 Dextrose (Dextrose 50%) 50 ml Q30M PRN IV Hypoglycemia 11/28/18 17:15 12/18/18 10:14 Docusate Sodium (Colace) 100 mg EVERY 12 HOURS ORAL 11/28/18 21:00 12/18/18 20:59 12/05/18 08:01 Escitalopram Oxalate (Lexapro) 15 mg DAILY ORAL 11/29/18 09:00 12/24/18 08:59 12/05/18 08:01 Famotidine (Pepcid) 20 mg QHS ORAL 11/30/18 21:00 12/30/18 20:59 12/04/18 20:27 Levothyroxine Sodium (Synthroid) 25 mcg Q24H ORAL 11/29/18 06:30 12/19/18 06:29 12/05/18 06:09 Magnesium Hydroxide (Mom) 30 ml HSPRN PRN ORAL Constipation 11/29/18 17:03 12/18/18 17:02 Morphine Sulfate (Morphine Sulfate) 2 mg Q4H PRN IVP Moderate Pain (Pain Scale 4-6) 12/04/18 10:00 12/11/18 09:59 12/05/18 03:29 Morphine Sulfate (Morphine Sulfate) 4 mg Q4H PRN IVP Severe Pain (Pain Scale 7-10) 12/04/18 10:00 12/11/18 09:59 12/05/18 15:25 Nitroglycerin (Ntg) 0.4 mg Q5M PRN SL Prn Chest Pain 11/28/18 17:05 12/18/18 10:14 12/05/18 06:09 Ondansetron HCl (Zofran) 4 mg Q6H PRN IVP Nausea & Vomiting 11/28/18 17:03 12/18/18 17:02 12/03/18 17:16 Pantoprazole (Protonix) 40 mg DAILY ORAL 11/29/18 09:00 12/19/18 08:59 12/05/18 08:02 Polyethylene Glycol (Miralax) 17 gm DAILYPRN PRN ORAL Constipation 11/28/18 17:04 12/28/18 17:03 12/02/18 09:01 Allergies: Coded Allergies: No Known Allergies (Verified , 09/12/10) ROS Limited/Unobtainable: No Constitutional: Reports: no symptoms HEENT: Reports: no symptoms Cardiovascular: Reports: no symptoms Respiratory: Reports: no symptoms Gastrointestinal/Abdominal: Reports: no symptoms Genitourinary: Reports: no symptoms Neurologic/Psychiatric: Reports: no symptoms Subjective 78 YO M admitted with chest pain. Now pancytopenia and UTI. Cover for Int Med- Dr Hunter. Objective Last Vital Signs Date Time Temp Pulse Resp B/P (MAP) Pulse Ox O2 Delivery O2 Flow Rate FiO2 12/05/18 16:00 98.1 65 16 110/56 (74) 99 12/05/18 09:00 Nasal Cannula 2.0 12/05/18 07:53 28 Laboratory Tests Test 12/05/18 06:25 White Blood Count 3.9 K/UL (4.8-10.8) L Red Blood Count 2.77 M/UL (4.70-6.10) L Hemoglobin 6.9 G/DL (14.2-18.0) *L Hematocrit 21.4 % (42.0-52.0) L Mean Corpuscular Volume 77 FL (80-99) L Mean Corpuscular Hemoglobin 25.1 PG (27.0-31.0) L Mean Corpuscular Hemoglobin Concent 32.4 G/DL (32.0-36.0) Red Cell Distribution Width 25.0 % (11.6-14.8) H Platelet Count 109 K/UL (150-450) L Mean Platelet Volume 12.4 FL (6.5-10.1) H Neutrophils (%) (Auto) % (45.0-75.0) Lymphocytes (%) (Auto) % (20.0-45.0) Monocytes (%) (Auto) % (1.0-10.0) Eosinophils (%) (Auto) % (0.0-3.0) Basophils (%) (Auto) % (0.0-2.0) Differential Total Cells Counted 100 Neutrophils % (Manual) 27 % (45-75) L Lymphocytes % (Manual) 49 % (20-45) H Monocytes % (Manual) 11 % (1-10) H Eosinophils % (Manual) 2 % (0-3) Basophils % (Manual) 1 % (0-2) Myelocytes % 1 % (0-0) H Blast Cells % 2 % (0-0) *H Band Neutrophils 7 % (0-8) Platelet Estimate Decreased L Platelet Morphology See comment Giant Platelets 1+ Anisocytosis 2+ Microcytosis 2+ Agatha Cells 2+ Sodium Level 136 MMOL/L (136-145) Potassium Level 3.9 MMOL/L (3.5-5.1) Chloride Level 101 MMOL/L (98-107) Carbon Dioxide Level 30 MMOL/L (21-32) Anion Gap 5 mmol/L (5-15) Blood Urea Nitrogen 22 mg/dL (7-18) H Creatinine 0.9 MG/DL (0.55-1.30) Estimat Glomerular Filtration Rate mL/min (>60) Glucose Level 91 MG/DL (74-106) Calcium Level 8.4 MG/DL (8.5-10.1) L Total Bilirubin 0.9 MG/DL (0.2-1.0) Aspartate Amino Transf (AST/SGOT) 20 U/L (15-37) Alanine Aminotransferase (ALT/SGPT) 21 U/L (12-78) Alkaline Phosphatase 55 U/L (46-116) Total Protein 6.7 G/DL (6.4-8.2) Albumin 2.7 G/DL (3.4-5.0) L Globulin 4.0 g/dL Albumin/Globulin Ratio 0.7 (1.0-2.7) L Intake and Output 12/04/18 12/05/18 19:00 07:00 Intake Total 550 ml 700 ml Output Total 500 ml 1200 ml Balance 50 ml -500 ml Intake Oral 550 ml 700 ml Output Urine Total 500 ml 1200 ml # Voids 3 Objective PHYSICAL EXAMINATION: GENERAL: The patient awake, responsive, no acute distress. HEAD AND NECK: Pupils are equal and reactive to light. Extraocular movements are intact. Neck was supple. No JVD LUNGS: Good air entry. No wheeze or rales. HEART: S1, S2. Distant heart sounds. No murmur or gallops. Pacemaker in left-sided chest wall. ABDOMEN: Soft, nondistended, nontender. EXTREMITIES: No cyanosis, clubbing, edema. Varicose veins, bilateral lower extremities. NEUROLOGIC: Cranial nerves II through XII grossly intact. Motor is 5/5 in all extremities. Gait is intact. RECTAL: Refused and deferred. GENITOURINARY: Refused and deferred. PSYCHIATRIC: Mood and affect is depressed. Assessment/Plan Assessment/Plan ASSESSMENT: 1. Chest pain, possible acute coronary syndrome. 2. Hypertension. 3. Dyslipidemia. 4. Congestive heart failure. 5. Coronary artery disease. 6. Sick sinus syndrome, status pacemaker. 7. UTI. 8. Pancytopenia; S/P transfusion 4 units PRBC total-Severe anemia, Thrombocytopenia and leukopenia-?leukemia? see onc note. PLAN: Admit the patient to telemetry. Discussed case with Dr. Gee from Cardiology Electrophysiology. Await cardiac nuclear stress test-outpatient Dr. uLong, Pulmonary Critical Care. Urine cult=E. Coli. Continue Rocephin. DVT prophylaxis, heparin subcutaneous. Code status, Full Code. The patient is expected to be in the hospital greater than 2 days Discharge paln: [facility] S/P transfusion 2 units PRBC on 11/19/18 See Hematology consult-?acute myelocytic leukemia? Nikhil West MD Dec 05, 2018 19:28
[2018-12-05 20:00] VITALS: BP 151/77
[2018-12-05] MEDS: Atorvastatin 20mg tab ORAL SCH (21:07)
--- NOTE | 2018-12-05 23:31 | General Progress Note ---
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 Transfuse prn. --> Epogen or iron at this time is not particularly indicated --> Medications have been reviewed # Reticulocytosis with elevated bilirubin that is indirect --> reviewed direct and indirect bilis again, trend could have liver disease --> liver US shows no significant cirrhosis --> evaluate as needed with gi team, recs apprecaited #. Chest pain, possible acute coronary syndrome. --> cards recs appreciated as well as pulm --> stress test prn #. Hypertension. #. Dyslipidemia. #. Congestive heart failure. #. Coronary artery disease. #. Sick sinus syndrome, status pacemaker. #. Acute E. coli UTI. #. Hep C+++ The timing of this note does not necessarily reflect the time of the patient was seen. Greatly appreciate consultation! Subjective Allergies: Coded Allergies: No Known Allergies (Verified , 09/12/10) Subjective 11/27: no events to report, no f/c 11/28: seen by bedside, plt 65, plan for EGD and bone marrow biopsy tomorrow 11/29: BM biopsy today, no acute distress. 11/30: Had BM biopsy yesterday and now in reverse isolation. hgb 7.5, will transfuse as needed. 12/01: seen by bedside, plt remains low, awaiting bone marrow biopsy results. 12/02: No acute distress, no chest pain, no shortness of breath, wbc 2.7, hgb 7.3 , plt 50, will transfuse as needed. S/P BM biopsy 11/29/18, Results pending 12/04: bone marrow biopsy completed, and show myeloblasts, c/w mds/leukemia, requires close surveillance 12/05: hgb 6.9, Had blood transfusion today, plt up trending, no events Objective Last 24 Hour Vital Signs Date Time Temp Pulse Resp B/P (MAP) Pulse Ox O2 Delivery O2 Flow Rate FiO2 12/05/18 21:07 70 151/77 12/05/18 21:00 Nasal Cannula 2.0 12/05/18 20:00 97.3 70 17 151/77 (101) 97 12/05/18 16:00 98.1 65 16 110/56 (74) 99 12/05/18 15:55 98.1 12/05/18 11:44 98.4 63 16 110/51 (70) 99 12/05/18 09:00 Nasal Cannula 2.0 12/05/18 08:02 74 159/75 12/05/18 08:00 98.2 74 20 159/75 (103) 98 12/05/18 07:53 Nasal Cannula 2.0 28 12/05/18 07:53 99 Nasal Cannula 2.0 28 12/05/18 06:09 108/57 12/05/18 04:00 97.5 60 18 108/57 (74) 100 12/05/18 00:00 98.3 72 20 125/62 (83) 99 Intake and Output 12/04/18 12/05/18 19:00 07:00 Intake Total 550 ml 700 ml Output Total 500 ml 1200 ml Balance 50 ml -500 ml Intake Oral 550 ml 700 ml Output Urine Total 500 ml 1200 ml # Voids 3 Laboratory Tests 12/05/18 06:25: White Blood Count 3.9L, Red Blood Count 2.77L, Hemoglobin 6.9*L, Hematocrit 21.4L, Mean Corpuscular Volume 77L, Mean Corpuscular Hemoglobin 25.1L, Mean Corpuscular Hemoglobin Concent 32.4, Red Cell Distribution Width 25.0H, Platelet Count 109L, Mean Platelet Volume 12.4H, Neutrophils (%) (Auto) , Lymphocytes (%) (Auto) , Monocytes (%) (Auto) , Eosinophils (%) (Auto) , Basophils (%) (Auto) , Differential Total Cells Counted 100, Neutrophils % ( Manual) 27L, Lymphocytes % (Manual) 49H, Monocytes % (Manual) 11H, Eosinophils % (Manual) 2, Basophils % (Manual) 1, Myelocytes % 1H, Blast Cells % 2*H, Band Neutrophils 7, Platelet Estimate DecreasedL, Platelet Morphology See comment, Giant Platelets 1+, Anisocytosis 2+, Microcytosis 2+, [place] Cells 2+, Sodium Level 136, Potassium Level 3.9, Chloride Level 101, Carbon Dioxide Level 30, Anion Gap 5, Blood Urea Nitrogen 22H, Creatinine 0.9, Estimat Glomerular Filtration Rate , Glucose Level 91, Calcium Level 8.4L, Total Bilirubin 0.9, Aspartate Amino Transf (AST/SGOT) 20, Alanine Aminotransferase (ALT/SGPT) 21, Alkaline Phosphatase 55, Total Protein 6.7, Albumin 2.7L, Globulin 4.0, Albumin/ Globulin Ratio 0.7L Height (Feet): 5 Height (Inches): 5.00 Weight (Pounds): 152 Objective General Appearance: well appearing, nad, alert Head: normocephalic, atraumatic Eyes: b/l eye PERRL, bilateral eye EOMI ENT: hearing grossly normal, normal pharynx Neck: full range of motion, supple, no meningismus Respiratory: chest non-tender, lungs clear, normal breath sounds Cardiovascular: regular rate, rhythm, no murmur Gastrointestinal: normal bowel sounds, non tender, no mass, no organomegaly, no bruit, non-distended Musculoskeletal: back normal, normal range of motion Psychiatric: mood/affect normal Skin: warm/dry Jose Alberto España MD Dec 05, 2018 23:31
[2018-12-06] VITALS (9 sets, daily range): BP systolic 124–197; BP diastolic 64–104
[2018-12-06] MEDS: Morphine Sulfate 4mg/ml Inj (IV USE ONLY) IVP PRN ×4 (01:16→16:46)
[2018-12-06] MEDS: Levothyroxine 25mcg tab ORAL SCH (05:41)
[2018-12-06 06:55] LABS: ANION GAP 6 mmol/L (5-15); BLOOD UREA NITROGEN 20 mg/dL (7-18); CALCIUM 8.5 MG/DL (8.5-10.1); CARBON DIOXIDE 28 MMOL/L (21-32); CHLORIDE 99 MMOL/L (98-107); CREATININE 0.9 MG/DL (0.55-1.30); POTASSIUM 4.1 MMOL/L (3.5-5.1); SODIUM 133 MMOL/L (136-145)
[2018-12-06 07:03] LABS: HEMATOCRIT 27.1 % (42.0-52.0); MEAN CORPUSCULAR VOLUME 78 FL (80-99); PLATELET COUNT 119 K/UL (150-450); RED BLOOD COUNT 3.49 M/UL (4.70-6.10); RED CELL DISTRIBUTION WIDTH 23.4 % (11.6-14.8); WHITE BLOOD COUNT 4.4 K/UL (4.8-10.8)
[2018-12-06 07:05] LABS: HEMOGLOBIN 8.7 G/DL (14.2-18.0)
[2018-12-06] MEDS: Docusate 100mg cap ORAL SCH ×3 (08:45→20:40)
[2018-12-06] MEDS: Carvedilol 12.5mg tab ORAL SCH ×2 (08:46→20:32)
--- NOTE | 2018-12-06 12:29 | GI Progress Note ---
Assessment/Plan Problems: (1) History of CVA (cerebrovascular accident) ICD Codes: Z86.73 - Personal history of transient ischemic attack (TIA), and cerebral infarction without residual deficits SNOMED: 437871700 (2) Severe anemia ICD Codes: D64.9 - Anemia, unspecified SNOMED: 503075200 (3) Abdominal pain ICD Codes: R10.9 - Unspecified abdominal pain SNOMED: 99972090 (4) GERD (gastroesophageal reflux disease) ICD Codes: K21.9 - Gastro-esophageal reflux disease without esophagitis SNOMED: 025080271 Status: stable Status Narrative Discussed with Dr. Mcguire Assessment/Plan SUMMARY OF FINDINGS: 1. Gastritis. 2. A 6 cm hiatal hernia. RECOMMENDATIONS: Follow up biopsy results and treat accordingly. BM biopsy>>? leukemia>> fu oncology monitor H&H, prn transfusions. OB stool uncollected bowel regime ppi, H2B qhs fu labs Outpatient hep C treatment The patient was seen and examined at bedside and all new and available data was reviewed in the patients chart. I agree with the above findings, impression and plan. (Patient seen earlier today. Signature stamp does not reflect patient encounter time.). - Richie Mcguire MD Subjective Subjective Overall improved, still has complaint of chest pain Objective Last 24 Hour Vital Signs Date Time Temp Pulse Resp B/P (MAP) Pulse Ox O2 Delivery O2 Flow Rate FiO2 12/06/18 09:41 99 Nasal Cannula 2.0 28 12/06/18 09:41 Nasal Cannula 2.0 28 12/06/18 09:00 Nasal Cannula 2.0 12/06/18 08:46 72 148/79 12/06/18 08:00 97.2 72 18 148/79 (102) 92 12/06/18 04:00 99.2 66 17 144/70 (94) 96 12/06/18 00:00 98.4 69 18 147/79 (101) 96 12/05/18 23:58 147/79 12/05/18 23:53 147/79 12/05/18 21:07 70 151/77 12/05/18 21:00 Nasal Cannula 2.0 12/05/18 20:00 97.3 70 17 151/77 (101) 97 12/05/18 16:00 98.1 65 16 110/56 (74) 99 12/05/18 15:55 98.1 Intake and Output 12/05/18 12/06/18 18:59 06:59 Intake Total 1040 ml 400 ml Output Total 2 ml Balance 1038 ml 400 ml Intake Oral 1040 ml 400 ml Output Urine Total 2 ml # Voids 2 2 Laboratory Tests Test 12/06/18 06:15 White Blood Count 4.4 K/UL (4.8-10.8) L Red Blood Count 3.49 M/UL (4.70-6.10) L Hemoglobin 8.7 G/DL (14.2-18.0) L Hematocrit 27.1 % (42.0-52.0) L Mean Corpuscular Volume 78 FL (80-99) L Mean Corpuscular Hemoglobin 25.0 PG (27.0-31.0) L Mean Corpuscular Hemoglobin Concent 32.3 G/DL (32.0-36.0) Red Cell Distribution Width 23.4 % (11.6-14.8) H Platelet Count 119 K/UL (150-450) L Mean Platelet Volume 12.3 FL (6.5-10.1) H Neutrophils (%) (Auto) % (45.0-75.0) Lymphocytes (%) (Auto) % (20.0-45.0) Monocytes (%) (Auto) % (1.0-10.0) Eosinophils (%) (Auto) % (0.0-3.0) Basophils (%) (Auto) % (0.0-2.0) Differential Total Cells Counted 100 Neutrophils % (Manual) 24 % (45-75) L Lymphocytes % (Manual) 59 % (20-45) H Monocytes % (Manual) 9 % (1-10) Eosinophils % (Manual) 2 % (0-3) Basophils % (Manual) 1 % (0-2) Myelocytes % 1 % (0-0) H Blast Cells % 2 % (0-0) *H Band Neutrophils 2 % (0-8) Platelet Estimate Decreased L Platelet Morphology Normal Anisocytosis 3+ Microcytosis 2+ [place] Cells 2+ Sodium Level 133 MMOL/L (136-145) L Potassium Level 4.1 MMOL/L (3.5-5.1) Chloride Level 99 MMOL/L (98-107) Carbon Dioxide Level 28 MMOL/L (21-32) Anion Gap 6 mmol/L (5-15) Blood Urea Nitrogen 20 mg/dL (7-18) H Creatinine 0.9 MG/DL (0.55-1.30) Estimat Glomerular Filtration Rate mL/min (>60) Glucose Level 107 MG/DL (74-106) H Calcium Level 8.5 MG/DL (8.5-10.1) Height (Feet): 5 Height (Inches): 5.00 Weight (Pounds): 154 General Appearance: WD/WN, no apparent distress, alert Cardiovascular: normal rate Respiratory/Chest: normal breath sounds, no respiratory distress Abdominal Exam: normal bowel sounds, non tender, soft Extremities: normal range of motion, non-tender Jason Gray NP Dec 06, 2018 12:29
--- NOTE | 2018-12-06 14:26 | Pulmonology Progress Note ---
Assessment/Plan Problems: (1) Myeloblastic leukemia (2) Severe thrombocytopenia (3) ACS (acute coronary syndrome) (4) Cardiomyopathy (5) HTN (hypertension) (6) Pacemaker (7) Hypothyroidism (8) CAD (coronary artery disease) Assessment/Plan doing better early leukemia PLT stable check electrolytes awaiting bone marrow biopsy results. flow cytometry abnormal all reviewed symptomatic treatment Subjective ROS Limited/Unobtainable: No Constitutional: Reports: no symptoms HEENT: Repors: no symptoms Allergies: Coded Allergies: No Known Allergies (Verified , 09/12/10) Objective Last 24 Hour Vital Signs Date Time Temp Pulse Resp B/P (MAP) Pulse Ox O2 Delivery O2 Flow Rate FiO2 12/06/18 12:00 98.1 64 18 124/64 (84) 99 12/06/18 09:41 99 Nasal Cannula 2.0 28 12/06/18 09:41 Nasal Cannula 2.0 28 12/06/18 09:00 Nasal Cannula 2.0 12/06/18 08:46 72 148/79 12/06/18 08:00 97.2 72 18 148/79 (102) 92 12/06/18 04:00 99.2 66 17 144/70 (94) 96 12/06/18 00:00 98.4 69 18 147/79 (101) 96 12/05/18 23:58 147/79 12/05/18 23:53 147/79 12/05/18 21:07 70 151/77 12/05/18 21:00 Nasal Cannula 2.0 12/05/18 20:00 97.3 70 17 151/77 (101) 97 12/05/18 16:00 98.1 65 16 110/56 (74) 99 12/05/18 15:55 98.1 Intake and Output 12/05/18 12/06/18 18:59 06:59 Intake Total 1040 ml 400 ml Output Total 2 ml Balance 1038 ml 400 ml Intake Oral 1040 ml 400 ml Output Urine Total 2 ml # Voids 2 2 Objective General Appearance: cachetic Lines, tubes and drains: peripheral HEENT: normocephalic, atraumatic Neck: non-tender, normal alignment Respiratory/Chest: chest wall non-tender, lungs clear Breasts: no masses Cardiovascular/Chest: normal peripheral pulses, normal rate Abdomen: normal bowel sounds, non tender Genitourinary/Rectal: normal genital exam Extremities: normal range of motion Skin Exam: normal pigmentation 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 Laboratory Tests 12/06/18 06:15: White Blood Count 4.4L, Red Blood Count 3.49L, Hemoglobin 8.7L, Hematocrit 27.1L , Mean Corpuscular Volume 78L, Mean Corpuscular Hemoglobin 25.0L, Mean Corpuscular Hemoglobin Concent 32.3, Red Cell Distribution Width 23.4H, Platelet Count 119L, Mean Platelet Volume 12.3H, Neutrophils (%) (Auto) , Lymphocytes (%) (Auto) , Monocytes (%) (Auto) , Eosinophils (%) (Auto) , Basophils (%) (Auto) , Differential Total Cells Counted 100, Neutrophils % ( Manual) 24L, Lymphocytes % (Manual) 59H, Monocytes % (Manual) 9, Eosinophils % ( Manual) 2, Basophils % (Manual) 1, Myelocytes % 1H, Blast Cells % 2*H, Band Neutrophils 2, Platelet Estimate DecreasedL, Platelet Morphology Normal, Anisocytosis 3+, Microcytosis 2+, [place] Cells 2+, Sodium Level 133L, Potassium Level 4.1, Chloride Level 99, Carbon Dioxide Level 28, Anion Gap 6, Blood Urea Nitrogen 20H, Creatinine 0.9, Estimat Glomerular Filtration Rate , Glucose Level 107H, Calcium Level 8.5 Current Medications Medications (Trade) Dose Ordered Sig/Scout Route PRN Reason Start Time Stop Time Status Last Admin Dose Admin Acetaminophen (Tylenol) 650 mg Q4H PRN ORAL Mild Pain (Pain Scale 1-3) 11/28/18 17:02 12/18/18 17:01 12/04/18 02:16 Acetaminophen (Tylenol) 650 mg Q4H PRN ORAL fever 11/28/18 17:02 12/18/18 17:01 Acetaminophen (Tylenol) 650 mg Q4H PRN RECTAL Mild Pain (Pain Scale 1-3) 11/28/18 17:02 12/18/18 17:01 Atorvastatin Calcium (Lipitor) 40 mg BEDTIME ORAL 11/28/18 21:00 12/18/18 20:59 12/05/18 21:07 Bisacodyl (Dulcolax) 10 mg DAILYPRN PRN RECTAL Constipation 11/28/18 17:02 12/28/18 17:01 Carvedilol (Coreg) 12.5 mg EVERY 12 HOURS ORAL 11/28/18 21:00 12/18/18 20:59 12/06/18 08:46 Dextrose (Dextrose 50%) 25 ml Q30M PRN IV Hypoglycemia 11/28/18 17:15 12/18/18 10:14 Dextrose (Dextrose 50%) 50 ml Q30M PRN IV Hypoglycemia 11/28/18 17:15 12/18/18 10:14 Docusate Sodium (Colace) 100 mg EVERY 12 HOURS ORAL 11/28/18 21:00 12/18/18 20:59 12/06/18 08:45 Escitalopram Oxalate (Lexapro) 15 mg DAILY ORAL 11/29/18 09:00 12/24/18 08:59 12/06/18 08:46 Famotidine (Pepcid) 20 mg QHS ORAL 11/30/18 21:00 12/30/18 20:59 12/05/18 21:07 Levothyroxine Sodium (Synthroid) 25 mcg Q24H ORAL 11/29/18 06:30 12/19/18 06:29 12/06/18 05:41 Magnesium Hydroxide (Mom) 30 ml HSPRN PRN ORAL Constipation 11/29/18 17:03 12/18/18 17:02 Morphine Sulfate (Morphine Sulfate) 2 mg Q4H PRN IVP Moderate Pain (Pain Scale 4-6) 12/04/18 10:00 12/11/18 09:59 12/05/18 03:29 Morphine Sulfate (Morphine Sulfate) 4 mg Q4H PRN IVP Severe Pain (Pain Scale 7-10) 12/04/18 10:00 12/11/18 09:59 12/06/18 09:45 Nitroglycerin (Ntg) 0.4 mg Q5M PRN SL Prn Chest Pain 11/28/18 17:05 12/18/18 10:14 12/05/18 23:58 Ondansetron HCl (Zofran) 4 mg Q6H PRN IVP Nausea & Vomiting 11/28/18 17:03 12/18/18 17:02 12/06/18 08:46 Pantoprazole (Protonix) 40 mg DAILY ORAL 11/29/18 09:00 12/19/18 08:59 12/06/18 08:45 Polyethylene Glycol (Miralax) 17 gm DAILYPRN PRN ORAL Constipation 11/28/18 17:04 12/28/18 17:03 12/02/18 09:01 Chepe Luong MD Dec 06, 2018 14:26
--- NOTE | 2018-12-06 17:51 | General Progress Note ---
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 Transfuse prn. --> Epogen or iron at this time is not particularly indicated --> Medications have been reviewed # Reticulocytosis with elevated bilirubin that is indirect --> reviewed direct and indirect bilis again, trend could have liver disease --> liver US shows no significant cirrhosis --> evaluate as needed with gi team, recs apprecaited #. Chest pain, possible acute coronary syndrome. --> cards recs appreciated as well as pulm --> stress test prn #. Hypertension. #. Dyslipidemia. #. Congestive heart failure. #. Coronary artery disease. #. Sick sinus syndrome, status pacemaker. #. Acute E. coli UTI. #. Hep C+++ The timing of this note does not necessarily reflect the time of the patient was seen. Greatly appreciate consultation! Subjective Constitutional: Denies: no symptoms, chills, diaphoresis, fever, malaise, weakness, other HEENT: Denies: no symptoms, eye pain, blurred vision, tearing, double vision, ear pain, ear discharge, nose pain, nose congestion, throat pain, throat swelling, mouth pain, mouth swelling, other Cardiovascular: Reports: chest pain Respiratory: Denies: no symptoms, cough, orthopnea, shortness of breath, SOB with excertion, SOB at rest, sputum, stridor, wheezing, other Gastrointestinal/Abdominal: Denies: no symptoms, abdomen distended, abdominal pain, black stools, tarry stools, blood in stool, constipated, diarrhea, difficulty swallowing, nausea, poor appetite, poor fluid intake, rectal bleeding , vomiting, other Genitourinary: Denies: no symptoms, burning, discharge, frequency, flank pain, hematuria, incontinence, pain, urgency, other Neurologic/Psychiatric: Denies: no symptoms, anxiety, depressed, emotional problems, headache, numbness, paresthesia, pre-existing deficit, seizure, tingling, tremors, weakness, other Endocrine: Denies: no symptoms, excessive sweating, flushing, intolerance to cold, intolerance to heat, increased hunger, increased thirst, increased urine, unexplained weight gain, unexplained weight loss, other Allergies: Coded Allergies: No Known Allergies (Verified , 09/12/10) Subjective 11/27: no events to report, no f/c 11/28: seen by bedside, plt 65, plan for EGD and bone marrow biopsy tomorrow 11/29: BM biopsy today, no acute distress. 11/30: Had BM biopsy yesterday and now in reverse isolation. hgb 7.5, will transfuse as needed. 12/01: seen by bedside, plt remains low, awaiting bone marrow biopsy results. 12/02: No acute distress, no chest pain, no shortness of breath, wbc 2.7, hgb 7.3 , plt 50, will transfuse as needed. S/P BM biopsy 11/29/18, Results pending 12/04: bone marrow biopsy completed, and show myeloblasts, c/w mds/leukemia, requires close surveillance 12/05: hgb 6.9, Had blood transfusion today, plt up trending, no events 12/06: Seen by bedside, overall improved, still has complaint of chest pain, plt trending up Objective Last 24 Hour Vital Signs Date Time Temp Pulse Resp B/P (MAP) Pulse Ox O2 Delivery O2 Flow Rate FiO2 12/06/18 15:47 98.4 67 17 142/73 (96) 96 12/06/18 12:00 98.1 64 18 124/64 (84) 99 12/06/18 09:41 99 Nasal Cannula 2.0 28 12/06/18 09:41 Nasal Cannula 2.0 28 12/06/18 09:00 Nasal Cannula 2.0 12/06/18 08:46 72 148/79 12/06/18 08:00 97.2 72 18 148/79 (102) 92 12/06/18 04:00 99.2 66 17 144/70 (94) 96 12/06/18 00:00 98.4 69 18 147/79 (101) 96 12/05/18 23:58 147/79 12/05/18 23:53 147/79 12/05/18 21:07 70 151/77 12/05/18 21:00 Nasal Cannula 2.0 12/05/18 20:00 97.3 70 17 151/77 (101) 97 Intake and Output 12/05/18 12/06/18 18:59 06:59 Intake Total 1040 ml 400 ml Output Total 2 ml Balance 1038 ml 400 ml Intake Oral 1040 ml 400 ml Output Urine Total 2 ml # Voids 2 2 Laboratory Tests 12/06/18 06:15: White Blood Count 4.4L, Red Blood Count 3.49L, Hemoglobin 8.7L, Hematocrit 27.1L , Mean Corpuscular Volume 78L, Mean Corpuscular Hemoglobin 25.0L, Mean Corpuscular Hemoglobin Concent 32.3, Red Cell Distribution Width 23.4H, Platelet Count 119L, Mean Platelet Volume 12.3H, Neutrophils (%) (Auto) , Lymphocytes (%) (Auto) , Monocytes (%) (Auto) , Eosinophils (%) (Auto) , Basophils (%) (Auto) , Differential Total Cells Counted 100, Neutrophils % ( Manual) 24L, Lymphocytes % (Manual) 59H, Monocytes % (Manual) 9, Eosinophils % ( Manual) 2, Basophils % (Manual) 1, Myelocytes % 1H, Blast Cells % 2*H, Band Neutrophils 2, Platelet Estimate DecreasedL, Platelet Morphology Normal, Anisocytosis 3+, Microcytosis 2+, [place] Cells 2+, Sodium Level 133L, Potassium Level 4.1, Chloride Level 99, Carbon Dioxide Level 28, Anion Gap 6, Blood Urea Nitrogen 20H, Creatinine 0.9, Estimat Glomerular Filtration Rate , Glucose Level 107H, Calcium Level 8.5 Height (Feet): 5 Height (Inches): 5.00 Weight (Pounds): 154 Objective General Appearance: well appearing, nad, alert Head: normocephalic, atraumatic Eyes: b/l eye PERRL, bilateral eye EOMI ENT: hearing grossly normal, normal pharynx Neck: full range of motion, supple, no meningismus Respiratory: chest non-tender, lungs clear, normal breath sounds Cardiovascular: regular rate, rhythm, no murmur Gastrointestinal: normal bowel sounds, non tender, no mass, no organomegaly, no bruit, non-distended Musculoskeletal: back normal, normal range of motion Psychiatric: mood/affect normal Skin: warm/dry Jose Alberto España MD Dec 06, 2018 17:51
--- NOTE | 2018-12-06 18:47 | Cardiac Electrophysiology PN ---
Assessment/Plan Assessment/Plan 1. Atypical chest pain and hx of CABG. Likely due to severe anemia. Ruled out MA. Nuclear stress test cancelled for severe anemia. Reschedule after pancytopenia is resolved. Can be done as out patient. On Lipitor and Coreg. Off Aspirin and Plavix for anemia and thrombocytopenia 2. Cardiomyopathy. EF now 55%. On Coreg 12.5 mg bid. Off Lisinopril and Lasix 3. Status post [facility] [place] atrial biventricular defibrillator. Interrogated and showed Nl Fx 4. Severe anemia, S/P PRBC. FU GI. 5. Pancytopenia with Platelet count of 17. Off Aspirin and PLavix S/P platelet transfusion. S/P BM biopsy 11/29/18. S/P PRBC Bone marrow bipsy/aspiration concerning for LEUKEMIA with 8.7% myeloblasts, may need outpatient followup with Vidaza (IV or SQ) hypomethylating agent per Dr Dayami CORTEZ RN Subjective Subjective Very weak in NAD Objective Last 24 Hour Vital Signs Date Time Temp Pulse Resp B/P (MAP) Pulse Ox O2 Delivery O2 Flow Rate FiO2 12/06/18 15:47 98.4 67 17 142/73 (96) 96 12/06/18 12:00 98.1 64 18 124/64 (84) 99 12/06/18 09:41 99 Nasal Cannula 2.0 28 12/06/18 09:41 Nasal Cannula 2.0 28 12/06/18 09:00 Nasal Cannula 2.0 12/06/18 08:46 72 148/79 12/06/18 08:00 97.2 72 18 148/79 (102) 92 12/06/18 04:00 99.2 66 17 144/70 (94) 96 12/06/18 00:00 98.4 69 18 147/79 (101) 96 12/05/18 23:58 147/79 12/05/18 23:53 147/79 12/05/18 21:07 70 151/77 12/05/18 21:00 Nasal Cannula 2.0 12/05/18 20:00 97.3 70 17 151/77 (101) 97 Intake and Output 12/05/18 12/06/18 18:59 06:59 Intake Total 1040 ml 400 ml Output Total 2 ml Balance 1038 ml 400 ml Intake Oral 1040 ml 400 ml Output Urine Total 2 ml # Voids 2 2 Laboratory Tests Test 12/06/18 06:15 White Blood Count 4.4 K/UL (4.8-10.8) L Red Blood Count 3.49 M/UL (4.70-6.10) L Hemoglobin 8.7 G/DL (14.2-18.0) L Hematocrit 27.1 % (42.0-52.0) L Mean Corpuscular Volume 78 FL (80-99) L Mean Corpuscular Hemoglobin 25.0 PG (27.0-31.0) L Mean Corpuscular Hemoglobin Concent 32.3 G/DL (32.0-36.0) Red Cell Distribution Width 23.4 % (11.6-14.8) H Platelet Count 119 K/UL (150-450) L Mean Platelet Volume 12.3 FL (6.5-10.1) H Neutrophils (%) (Auto) % (45.0-75.0) Lymphocytes (%) (Auto) % (20.0-45.0) Monocytes (%) (Auto) % (1.0-10.0) Eosinophils (%) (Auto) % (0.0-3.0) Basophils (%) (Auto) % (0.0-2.0) Differential Total Cells Counted 100 Neutrophils % (Manual) 24 % (45-75) L Lymphocytes % (Manual) 59 % (20-45) H Monocytes % (Manual) 9 % (1-10) Eosinophils % (Manual) 2 % (0-3) Basophils % (Manual) 1 % (0-2) Myelocytes % 1 % (0-0) H Blast Cells % 2 % (0-0) *H Band Neutrophils 2 % (0-8) Platelet Estimate Decreased L Platelet Morphology Normal Anisocytosis 3+ Microcytosis 2+ [place] Cells 2+ Sodium Level 133 MMOL/L (136-145) L Potassium Level 4.1 MMOL/L (3.5-5.1) Chloride Level 99 MMOL/L (98-107) Carbon Dioxide Level 28 MMOL/L (21-32) Anion Gap 6 mmol/L (5-15) Blood Urea Nitrogen 20 mg/dL (7-18) H Creatinine 0.9 MG/DL (0.55-1.30) Estimat Glomerular Filtration Rate mL/min (>60) Glucose Level 107 MG/DL (74-106) H Calcium Level 8.5 MG/DL (8.5-10.1) Objective HEAD AND NECK: No JVD. LUNGS: Coarse rhonchi. CARDIOVASCULAR: Regular S1 and S2 with no gallop or murmur. Sternotomy is intact. Defibrillator in left subclavian. ABDOMEN: Soft. EXTREMITIES: 1+ pitting edema. Satinder Gee MD Dec 06, 2018 18:47
--- NOTE | 2018-12-06 19:14 | Internal Med Progress Note ---
Subjective Date of Service: Dec 06, 2018 Physician Name Nikhil West Attending Physician Abdias Hunter MD Current Medications Medications (Trade) Dose Ordered Sig/Scout Route PRN Reason Start Time Stop Time Status Last Admin Dose Admin Acetaminophen (Tylenol) 650 mg Q4H PRN ORAL Mild Pain (Pain Scale 1-3) 11/28/18 17:02 12/18/18 17:01 12/04/18 02:16 Acetaminophen (Tylenol) 650 mg Q4H PRN ORAL fever 11/28/18 17:02 12/18/18 17:01 Acetaminophen (Tylenol) 650 mg Q4H PRN RECTAL Mild Pain (Pain Scale 1-3) 11/28/18 17:02 12/18/18 17:01 Atorvastatin Calcium (Lipitor) 40 mg BEDTIME ORAL 11/28/18 21:00 12/18/18 20:59 12/05/18 21:07 Bisacodyl (Dulcolax) 10 mg DAILYPRN PRN RECTAL Constipation 11/28/18 17:02 12/28/18 17:01 Carvedilol (Coreg) 12.5 mg EVERY 12 HOURS ORAL 11/28/18 21:00 12/18/18 20:59 12/06/18 08:46 Dextrose (Dextrose 50%) 25 ml Q30M PRN IV Hypoglycemia 11/28/18 17:15 12/18/18 10:14 Dextrose (Dextrose 50%) 50 ml Q30M PRN IV Hypoglycemia 11/28/18 17:15 12/18/18 10:14 Docusate Sodium (Colace) 100 mg EVERY 12 HOURS ORAL 11/28/18 21:00 12/18/18 20:59 12/06/18 08:45 Escitalopram Oxalate (Lexapro) 15 mg DAILY ORAL 11/29/18 09:00 12/24/18 08:59 12/06/18 08:46 Famotidine (Pepcid) 20 mg QHS ORAL 11/30/18 21:00 12/30/18 20:59 12/05/18 21:07 Levothyroxine Sodium (Synthroid) 25 mcg Q24H ORAL 11/29/18 06:30 12/19/18 06:29 12/06/18 05:41 Magnesium Hydroxide (Mom) 30 ml HSPRN PRN ORAL Constipation 11/29/18 17:03 12/18/18 17:02 Morphine Sulfate (Morphine Sulfate) 2 mg Q4H PRN IVP Moderate Pain (Pain Scale 4-6) 12/04/18 10:00 12/11/18 09:59 12/05/18 03:29 Morphine Sulfate (Morphine Sulfate) 4 mg Q4H PRN IVP Severe Pain (Pain Scale 7-10) 12/04/18 10:00 12/11/18 09:59 12/06/18 16:46 Nitroglycerin (Ntg) 0.4 mg Q5M PRN SL Prn Chest Pain 11/28/18 17:05 12/18/18 10:14 12/05/18 23:58 Ondansetron HCl (Zofran) 4 mg Q6H PRN IVP Nausea & Vomiting 11/28/18 17:03 12/18/18 17:02 12/06/18 16:43 Pantoprazole (Protonix) 40 mg DAILY ORAL 11/29/18 09:00 12/19/18 08:59 12/06/18 08:45 Polyethylene Glycol (Miralax) 17 gm DAILYPRN PRN ORAL Constipation 11/28/18 17:04 12/28/18 17:03 12/02/18 09:01 Allergies: Coded Allergies: No Known Allergies (Verified , 09/12/10) ROS Limited/Unobtainable: Yes Subjective 78 YO M admitted with chest pain. Now pancytopenia and UTI. Cover for Int Med- Dr Hunter. Objective Last Vital Signs Date Time Temp Pulse Resp B/P (MAP) Pulse Ox O2 Delivery O2 Flow Rate FiO2 12/06/18 15:47 98.4 67 17 142/73 (96) 96 12/06/18 09:41 Nasal Cannula 2.0 28 Laboratory Tests Test 12/06/18 06:15 White Blood Count 4.4 K/UL (4.8-10.8) L Red Blood Count 3.49 M/UL (4.70-6.10) L Hemoglobin 8.7 G/DL (14.2-18.0) L Hematocrit 27.1 % (42.0-52.0) L Mean Corpuscular Volume 78 FL (80-99) L Mean Corpuscular Hemoglobin 25.0 PG (27.0-31.0) L Mean Corpuscular Hemoglobin Concent 32.3 G/DL (32.0-36.0) Red Cell Distribution Width 23.4 % (11.6-14.8) H Platelet Count 119 K/UL (150-450) L Mean Platelet Volume 12.3 FL (6.5-10.1) H Neutrophils (%) (Auto) % (45.0-75.0) Lymphocytes (%) (Auto) % (20.0-45.0) Monocytes (%) (Auto) % (1.0-10.0) Eosinophils (%) (Auto) % (0.0-3.0) Basophils (%) (Auto) % (0.0-2.0) Differential Total Cells Counted 100 Neutrophils % (Manual) 24 % (45-75) L Lymphocytes % (Manual) 59 % (20-45) H Monocytes % (Manual) 9 % (1-10) Eosinophils % (Manual) 2 % (0-3) Basophils % (Manual) 1 % (0-2) Myelocytes % 1 % (0-0) H Blast Cells % 2 % (0-0) *H Band Neutrophils 2 % (0-8) Platelet Estimate Decreased L Platelet Morphology Normal Anisocytosis 3+ Microcytosis 2+ [place] Cells 2+ Sodium Level 133 MMOL/L (136-145) L Potassium Level 4.1 MMOL/L (3.5-5.1) Chloride Level 99 MMOL/L (98-107) Carbon Dioxide Level 28 MMOL/L (21-32) Anion Gap 6 mmol/L (5-15) Blood Urea Nitrogen 20 mg/dL (7-18) H Creatinine 0.9 MG/DL (0.55-1.30) Estimat Glomerular Filtration Rate mL/min (>60) Glucose Level 107 MG/DL (74-106) H Calcium Level 8.5 MG/DL (8.5-10.1) Intake and Output 12/05/18 12/06/18 19:00 07:00 Intake Total 1040 ml 400 ml Output Total 2 ml Balance 1038 ml 400 ml Intake Oral 1040 ml 400 ml Output Urine Total 2 ml # Voids 2 2 Objective PHYSICAL EXAMINATION: GENERAL: The patient awake, responsive, no acute distress. HEAD AND NECK: Pupils are equal and reactive to light. Extraocular movements are intact. Neck was supple. No JVD LUNGS: Good air entry. No wheeze or rales. HEART: S1, S2. Distant heart sounds. No murmur or gallops. Pacemaker in left-sided chest wall. ABDOMEN: Soft, nondistended, nontender. EXTREMITIES: No cyanosis, clubbing, edema. Varicose veins, bilateral lower extremities. NEUROLOGIC: Cranial nerves II through XII grossly intact. Motor is 5/5 in all extremities. Gait is intact. RECTAL: Refused and deferred. GENITOURINARY: Refused and deferred. PSYCHIATRIC: Mood and affect is depressed. Assessment/Plan Assessment/Plan ASSESSMENT: 1. Chest pain, possible acute coronary syndrome. 2. Hypertension. 3. Dyslipidemia. 4. Congestive heart failure. 5. Coronary artery disease. 6. Sick sinus syndrome, status pacemaker. 7. UTI. 8. Pancytopenia; S/P transfusion 4 units PRBC total-Severe anemia, Thrombocytopenia and leukopenia-?leukemia? see onc note. PLAN: Admit the patient to telemetry. Discussed case with Dr. Gee from Cardiology Electrophysiology. Await cardiac nuclear stress test-outpatient Dr. Luong, Pulmonary Critical Care. Urine cult=E. Coli. Continue Rocephin. DVT prophylaxis, heparin subcutaneous. Code status, Full Code. The patient is expected to be in the hospital greater than 2 days Discharge paln: [facility] S/P transfusion 2 units PRBC on 11/19/18 See Hematology consult-?acute myelocytic leukemia? Discharge to [facility] today Nikhil West MD Dec 06, 2018 19:14
[2018-12-06] MEDS: Nitroglycerin Subl 0.4mg tab SL PRN ×3 (20:31→20:53)
[2018-12-06] MEDS: Atorvastatin 20mg tab ORAL SCH (20:32)
[2018-12-06] MEDS ORDERED: ALPRAZolam 0.25mg tab ORAL SCH (23:45)
[2018-12-07] VITALS (7 sets, daily range): BP systolic 121–171; BP diastolic 64–102
[2018-12-07] MEDS: Nitroglycerin Subl 0.4mg tab SL PRN (03:37)
[2018-12-07] MEDS: Levothyroxine 25mcg tab ORAL SCH (05:55)
[2018-12-07] MEDS: Docusate 100mg cap ORAL SCH ×2 (08:25→20:09)
[2018-12-07] MEDS: Carvedilol 12.5mg tab ORAL SCH ×2 (10:00→20:11)
[2018-12-07] MEDS ORDERED: HYDROcodone/Acetamin 5/325 tab ORAL PRN (10:00)
[2018-12-07] MEDS: HYDROcodone/Acetamin 10/325 tab ORAL PRN ×4 (10:18→23:58)
--- NOTE | 2018-12-07 11:24 | GI Progress Note ---
Assessment/Plan Problems: (1) History of CVA (cerebrovascular accident) ICD Codes: Z86.73 - Personal history of transient ischemic attack (TIA), and cerebral infarction without residual deficits SNOMED: 805990891 (2) Severe anemia ICD Codes: D64.9 - Anemia, unspecified SNOMED: 419421622 (3) Abdominal pain ICD Codes: R10.9 - Unspecified abdominal pain SNOMED: 29903111 (4) GERD (gastroesophageal reflux disease) ICD Codes: K21.9 - Gastro-esophageal reflux disease without esophagitis SNOMED: 156704506 Status: unchanged Status Narrative Discussed with Dr. Mcguire Assessment/Plan SUMMARY OF FINDINGS: 1. Gastritis. 2. A 6 cm hiatal hernia. Refusing a.m. lab draws RECOMMENDATIONS: Follow up biopsy results and treat accordingly. BM biopsy>> leukemia>> fu oncology monitor H&H, prn transfusions. OB stool uncollected bowel regime ppi, H2B qhs Zofran as needed fu labs Outpatient hep C treatment The patient was seen and examined at bedside and all new and available data was reviewed in the patients chart. I agree with the above findings, impression and plan. (Patient seen earlier today. Signature stamp does not reflect patient encounter time.). - Richie Mcguire MD Subjective Subjective Complaint of chest pain Nausea Objective Last 24 Hour Vital Signs Date Time Temp Pulse Resp B/P (MAP) Pulse Ox O2 Delivery O2 Flow Rate FiO2 12/07/18 10:00 89 150/87 12/07/18 09:50 89 150/87 (108) 12/07/18 09:00 Nasal Cannula 4.0 12/07/18 08:25 171/96 12/07/18 08:00 97.1 97 24 171/96 (121) 93 12/07/18 06:11 165/100 (121) 12/07/18 03:40 93 168/102 (124) 12/07/18 03:37 168/102 12/06/18 23:32 84 188/104 (132) 12/06/18 23:31 188/104 12/06/18 21:00 Nasal Cannula 2.0 12/06/18 20:53 179/78 12/06/18 20:45 179/78 12/06/18 20:32 76 197/92 12/06/18 20:31 197/92 12/06/18 20:20 165/78 (107) 12/06/18 20:10 179/92 (121) 12/06/18 20:00 97.7 77 18 197/92 (127) 100 12/06/18 15:47 98.4 67 17 142/73 (96) 96 12/06/18 12:00 98.1 64 18 124/64 (84) 99 Intake and Output 12/06/18 12/07/18 19:00 07:00 Intake Total 500 ml 400 ml Balance 500 ml 400 ml Intake Oral 500 ml 400 ml # Voids 3 2 Height (Feet): 5 Height (Inches): 5.00 Weight (Pounds): 153 General Appearance: WD/WN, no apparent distress, alert Cardiovascular: normal rate Respiratory/Chest: normal breath sounds, no respiratory distress Abdominal Exam: normal bowel sounds, non tender, soft Extremities: normal range of motion, non-tender Jason Gray NP Dec 07, 2018 11:24
--- NOTE | 2018-12-07 13:46 | Pulmonology Progress Note ---
Assessment/Plan Problems: (1) Myeloblastic leukemia (2) Severe thrombocytopenia (3) ACS (acute coronary syndrome) (4) Cardiomyopathy (5) HTN (hypertension) (6) Pacemaker (7) Hypothyroidism (8) CAD (coronary artery disease) Assessment/Plan got one unit of prbc yesterday doing better early leukemia PLT stable check electrolytes awaiting bone marrow biopsy results. flow cytometry abnormal all reviewed symptomatic treatment dc planning Subjective ROS Limited/Unobtainable: No Constitutional: Reports: no symptoms HEENT: Repors: no symptoms Allergies: Coded Allergies: No Known Allergies (Verified , 09/12/10) Objective Last 24 Hour Vital Signs Date Time Temp Pulse Resp B/P (MAP) Pulse Ox O2 Delivery O2 Flow Rate FiO2 12/07/18 12:00 95.9 69 19 127/64 (85) 99 12/07/18 10:00 89 150/87 12/07/18 09:50 89 150/87 (108) 12/07/18 09:00 Nasal Cannula 4.0 12/07/18 08:25 171/96 12/07/18 08:00 97.1 97 24 171/96 (121) 93 12/07/18 06:11 165/100 (121) 12/07/18 03:40 93 168/102 (124) 12/07/18 03:37 168/102 12/06/18 23:32 84 188/104 (132) 12/06/18 23:31 188/104 12/06/18 21:00 Nasal Cannula 2.0 12/06/18 20:53 179/78 12/06/18 20:45 179/78 12/06/18 20:32 76 197/92 12/06/18 20:31 197/92 12/06/18 20:20 165/78 (107) 12/06/18 20:10 179/92 (121) 12/06/18 20:00 97.7 77 18 197/92 (127) 100 12/06/18 15:47 98.4 67 17 142/73 (96) 96 Intake and Output 12/06/18 12/07/18 19:00 07:00 Intake Total 500 ml 400 ml Balance 500 ml 400 ml Intake Oral 500 ml 400 ml # Voids 3 2 Objective General Appearance: cachetic Lines, tubes and drains: peripheral HEENT: normocephalic, atraumatic Neck: non-tender, normal alignment Respiratory/Chest: chest wall non-tender, lungs clear Breasts: no masses Cardiovascular/Chest: normal peripheral pulses, normal rate Abdomen: normal bowel sounds, non tender Genitourinary/Rectal: normal genital exam Extremities: normal range of motion Skin Exam: normal pigmentation Neurologic: litigation specialist II-XII grossly normal Current Medications Medications (Trade) Dose Ordered Sig/Scout Route PRN Reason Start Time Stop Time Status Last Admin Dose Admin Acetaminophen (Tylenol) 650 mg Q4H PRN ORAL Mild Pain (Pain Scale 1-3) 11/28/18 17:02 12/18/18 17:01 12/04/18 02:16 Acetaminophen (Tylenol) 650 mg Q4H PRN ORAL fever 11/28/18 17:02 12/18/18 17:01 Acetaminophen (Tylenol) 650 mg Q4H PRN RECTAL Mild Pain (Pain Scale 1-3) 11/28/18 17:02 12/18/18 17:01 Acetaminophen/ Hydrocodone Bitart ([place] 10/325) 1 tab Q4H PRN ORAL Severe Pain (Pain Scale 7-10) 12/07/18 10:00 12/14/18 09:59 12/07/18 10:18 Acetaminophen/ Hydrocodone Bitart ([place] 5/325) 1 tab Q4H PRN ORAL Moderate Pain (Pain Scale 4-6) 12/07/18 10:00 12/14/18 09:59 Atorvastatin Calcium (Lipitor) 40 mg BEDTIME ORAL 11/28/18 21:00 12/18/18 20:59 12/06/18 20:32 Bisacodyl (Dulcolax) 10 mg DAILYPRN PRN RECTAL Constipation 11/28/18 17:02 12/28/18 17:01 Carvedilol (Coreg) 12.5 mg EVERY 12 HOURS ORAL 11/28/18 21:00 12/18/18 20:59 12/07/18 10:00 Clonidine HCl (Catapres Tab) 0.1 mg Q2H PRN ORAL For High Blood Pressure 12/06/18 21:15 01/05/19 21:14 12/07/18 08:25 Dextrose (Dextrose 50%) 25 ml Q30M PRN IV Hypoglycemia 11/28/18 17:15 12/18/18 10:14 Dextrose (Dextrose 50%) 50 ml Q30M PRN IV Hypoglycemia 11/28/18 17:15 12/18/18 10:14 Docusate Sodium (Colace) 100 mg EVERY 12 HOURS ORAL 11/28/18 21:00 12/18/18 20:59 12/07/18 08:25 Escitalopram Oxalate (Lexapro) 15 mg DAILY ORAL 11/29/18 09:00 12/24/18 08:59 12/07/18 08:25 Famotidine (Pepcid) 20 mg QHS ORAL 11/30/18 21:00 12/30/18 20:59 12/06/18 20:31 Levothyroxine Sodium (Synthroid) 25 mcg Q24H ORAL 11/29/18 06:30 12/19/18 06:29 12/06/18 05:41 Magnesium Hydroxide (Mom) 30 ml HSPRN PRN ORAL Constipation 11/29/18 17:03 12/18/18 17:02 Nitroglycerin (Ntg) 0.4 mg Q5M PRN SL Prn Chest Pain 11/28/18 17:05 12/18/18 10:14 12/07/18 03:37 Ondansetron HCl (Zofran ODT) 4 mg Q4H PRN ORAL Nausea & Vomiting 12/07/18 10:00 01/06/19 09:59 12/07/18 10:17 Pantoprazole (Protonix) 40 mg DAILY ORAL 11/29/18 09:00 12/19/18 08:59 12/07/18 08:25 Polyethylene Glycol (Miralax) 17 gm DAILYPRN PRN ORAL Constipation 11/28/18 17:04 12/28/18 17:03 12/02/18 09:01 Chepe Luong MD Dec 07, 2018 13:46
--- NOTE | 2018-12-07 17:05 | General Progress Note ---
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 Transfuse prn. --> Epogen or iron at this time is not particularly indicated --> Medications have been reviewed # Reticulocytosis with elevated bilirubin that is indirect --> reviewed direct and indirect bilis again, trend could have liver disease --> liver US shows no significant cirrhosis --> evaluate as needed with gi team, recs apprecaited #. Chest pain, possible acute coronary syndrome. --> cards recs appreciated as well as pulm --> stress test prn #. Hypertension. #. Dyslipidemia. #. Congestive heart failure. #. Coronary artery disease. #. Sick sinus syndrome, status pacemaker. #. Acute E. coli UTI. #. Hep C+++ needs op management The timing of this note does not necessarily reflect the time of the patient was seen. Greatly appreciate consultation! Subjective Constitutional: Denies: no symptoms, chills, diaphoresis, fever, malaise, weakness, other HEENT: Denies: no symptoms, eye pain, blurred vision, tearing, double vision, ear pain, ear discharge, nose pain, nose congestion, throat pain, throat swelling, mouth pain, mouth swelling, other Cardiovascular: Denies: no symptoms, chest pain, edema, irregular heart rate, lightheadedness, palpitations, syncope, other Respiratory: Denies: no symptoms, cough, orthopnea, shortness of breath, SOB with excertion, SOB at rest, sputum, stridor, wheezing, other Gastrointestinal/Abdominal: Denies: no symptoms, abdomen distended, abdominal pain, black stools, tarry stools, blood in stool, constipated, diarrhea, difficulty swallowing, nausea, poor appetite, poor fluid intake, rectal bleeding , vomiting, other Genitourinary: Denies: no symptoms, burning, discharge, frequency, flank pain, hematuria, incontinence, pain, urgency, other Neurologic/Psychiatric: Denies: no symptoms, anxiety, depressed, emotional problems, headache, numbness, paresthesia, pre-existing deficit, seizure, tingling, tremors, weakness, other Allergies: Coded Allergies: No Known Allergies (Verified , 09/12/10) Subjective 11/27: no events to report, no f/c 11/28: seen by bedside, plt 65, plan for EGD and bone marrow biopsy tomorrow 11/29: BM biopsy today, no acute distress. 11/30: Had BM biopsy yesterday and now in reverse isolation. hgb 7.5, will transfuse as needed. 12/01: seen by bedside, plt remains low, awaiting bone marrow biopsy results. 12/02: No acute distress, no chest pain, no shortness of breath, wbc 2.7, hgb 7.3 , plt 50, will transfuse as needed. S/P BM biopsy 11/29/18, Results pending 12/04: bone marrow biopsy completed, and show myeloblasts, c/w mds/leukemia, requires close surveillance 12/05: hgb 6.9, Had blood transfusion today, plt up trending, no events 12/06: Seen by bedside, overall improved, still has complaint of chest pain, plt trending up 12/07: Given 1 unit prbc, continues to c/o chest pain, seen by cards Objective Last 24 Hour Vital Signs Date Time Temp Pulse Resp B/P (MAP) Pulse Ox O2 Delivery O2 Flow Rate FiO2 12/07/18 12:00 95.9 69 19 127/64 (85) 99 12/07/18 10:00 89 150/87 12/07/18 09:50 89 150/87 (108) 12/07/18 09:00 Nasal Cannula 4.0 12/07/18 08:25 171/96 12/07/18 08:00 97.1 97 24 171/96 (121) 93 12/07/18 06:11 165/100 (121) 12/07/18 03:40 93 168/102 (124) 12/07/18 03:37 168/102 12/06/18 23:32 84 188/104 (132) 12/06/18 23:31 188/104 12/06/18 21:00 Nasal Cannula 2.0 12/06/18 20:53 179/78 12/06/18 20:45 179/78 12/06/18 20:32 76 197/92 12/06/18 20:31 197/92 12/06/18 20:20 165/78 (107) 12/06/18 20:10 179/92 (121) 12/06/18 20:00 97.7 77 18 197/92 (127) 100 Intake and Output 12/06/18 12/07/18 18:59 06:59 Intake Total 500 ml 400 ml Balance 500 ml 400 ml Intake Oral 500 ml 400 ml # Voids 3 2 Height (Feet): 5 Height (Inches): 5.00 Weight (Pounds): 153 Objective General Appearance: well appearing, nad, alert Head: normocephalic, atraumatic Eyes: b/l eye PERRL, bilateral eye EOMI ENT: hearing grossly normal, normal pharynx Neck: full range of motion, supple, no meningismus Respiratory: chest non-tender, lungs clear, normal breath sounds Cardiovascular: regular rate, rhythm, no murmur Gastrointestinal: normal bowel sounds, non tender, no mass, no organomegaly, no bruit, non-distended Musculoskeletal: back normal, normal range of motion Psychiatric: mood/affect normal Skin: warm/dry Jose Alberto España MD Dec 07, 2018 17:05
--- NOTE | 2018-12-07 18:11 | Cardiac Electrophysiology PN ---
Assessment/Plan Assessment/Plan 1. Atypical chest pain and hx of CABG. Likely due to severe anemia. Ruled out [place]. Nuclear stress test cancelled for severe anemia. Reschedule after pancytopenia is resolved. Can be done as out patient. On Lipitor and Coreg. Off Aspirin and Plavix for anemia and thrombocytopenia 2. Cardiomyopathy. EF now 55%. On Coreg 12.5 mg bid. Off Lisinopril and Lasix 3. Status post [facility] [place] atrial biventricular defibrillator. Interrogated and showed Nl Fx 4. Severe anemia, S/P PRBC. FU GI. 5. Pancytopenia with Platelet count of 17. Off Aspirin and PLavix S/P platelet transfusion. S/P BM biopsy 11/29/18. S/P PRBC Bone marrow bipsy/aspiration concerning for LEUKEMIA with 8.7% myeloblasts, may need outpatient followup with Vidaza (IV or SQ) hypomethylating agent per Dr Dayami CORTEZ RN Subjective Subjective Comfortable in NAD. No events Objective Last 24 Hour Vital Signs Date Time Temp Pulse Resp B/P (MAP) Pulse Ox O2 Delivery O2 Flow Rate FiO2 12/07/18 16:00 98.0 71 19 121/70 (87) 99 12/07/18 12:00 95.9 69 19 127/64 (85) 99 12/07/18 10:00 89 150/87 12/07/18 09:50 89 150/87 (108) 12/07/18 09:00 Nasal Cannula 4.0 12/07/18 08:25 171/96 12/07/18 08:00 97.1 97 24 171/96 (121) 93 12/07/18 06:11 165/100 (121) 12/07/18 03:40 93 168/102 (124) 12/07/18 03:37 168/102 12/06/18 23:32 84 188/104 (132) 12/06/18 23:31 188/104 12/06/18 21:00 Nasal Cannula 2.0 12/06/18 20:53 179/78 12/06/18 20:45 179/78 12/06/18 20:32 76 197/92 12/06/18 20:31 197/92 12/06/18 20:20 165/78 (107) 12/06/18 20:10 179/92 (121) 12/06/18 20:00 97.7 77 18 197/92 (127) 100 Intake and Output 12/06/18 12/07/18 18:59 06:59 Intake Total 500 ml 400 ml Balance 500 ml 400 ml Intake Oral 500 ml 400 ml # Voids 3 2 Objective HEAD AND NECK: No JVD. LUNGS: Coarse rhonchi. CARDIOVASCULAR: Regular S1 and S2 with no gallop or murmur. Sternotomy is intact. Defibrillator in left subclavian. ABDOMEN: Soft. EXTREMITIES: 1+ pitting edema. Satinder Gee MD Dec 07, 2018 18:11
--- NOTE | 2018-12-07 19:14 | Internal Med Progress Note ---
Subjective Date of Service: Dec 07, 2018 Physician Name Nikhil West Attending Physician Abdias Hunter MD Current Medications Medications (Trade) Dose Ordered Sig/Scout Route PRN Reason Start Time Stop Time Status Last Admin Dose Admin Acetaminophen (Tylenol) 650 mg Q4H PRN ORAL Mild Pain (Pain Scale 1-3) 11/28/18 17:02 12/18/18 17:01 12/04/18 02:16 Acetaminophen (Tylenol) 650 mg Q4H PRN ORAL fever 11/28/18 17:02 12/18/18 17:01 Acetaminophen (Tylenol) 650 mg Q4H PRN RECTAL Mild Pain (Pain Scale 1-3) 11/28/18 17:02 12/18/18 17:01 Acetaminophen/ Hydrocodone Bitart ([place] 10/325) 1 tab Q4H PRN ORAL Severe Pain (Pain Scale 7-10) 12/07/18 10:00 12/14/18 09:59 12/07/18 14:35 Acetaminophen/ Hydrocodone Bitart ([place] 5/325) 1 tab Q4H PRN ORAL Moderate Pain (Pain Scale 4-6) 12/07/18 10:00 12/14/18 09:59 Atorvastatin Calcium (Lipitor) 40 mg BEDTIME ORAL 11/28/18 21:00 12/18/18 20:59 12/06/18 20:32 Bisacodyl (Dulcolax) 10 mg DAILYPRN PRN RECTAL Constipation 11/28/18 17:02 12/28/18 17:01 Carvedilol (Coreg) 12.5 mg EVERY 12 HOURS ORAL 11/28/18 21:00 12/18/18 20:59 12/07/18 10:00 Clonidine HCl (Catapres Tab) 0.1 mg Q2H PRN ORAL For High Blood Pressure 12/06/18 21:15 01/05/19 21:14 12/07/18 08:25 Dextrose (Dextrose 50%) 25 ml Q30M PRN IV Hypoglycemia 11/28/18 17:15 12/18/18 10:14 Dextrose (Dextrose 50%) 50 ml Q30M PRN IV Hypoglycemia 11/28/18 17:15 12/18/18 10:14 Docusate Sodium (Colace) 100 mg EVERY 12 HOURS ORAL 11/28/18 21:00 12/18/18 20:59 12/07/18 08:25 Escitalopram Oxalate (Lexapro) 15 mg DAILY ORAL 11/29/18 09:00 12/24/18 08:59 12/07/18 08:25 Famotidine (Pepcid) 20 mg QHS ORAL 11/30/18 21:00 12/30/18 20:59 12/06/18 20:31 Levothyroxine Sodium (Synthroid) 25 mcg Q24H ORAL 11/29/18 06:30 12/19/18 06:29 12/06/18 05:41 Magnesium Hydroxide (Mom) 30 ml HSPRN PRN ORAL Constipation 11/29/18 17:03 12/18/18 17:02 Nitroglycerin (Ntg) 0.4 mg Q5M PRN SL Prn Chest Pain 11/28/18 17:05 12/18/18 10:14 12/07/18 03:37 Ondansetron HCl (Zofran ODT) 4 mg Q4H PRN ORAL Nausea & Vomiting 12/07/18 10:00 01/06/19 09:59 12/07/18 14:34 Pantoprazole (Protonix) 40 mg DAILY ORAL 11/29/18 09:00 12/19/18 08:59 12/07/18 08:25 Polyethylene Glycol (Miralax) 17 gm DAILYPRN PRN ORAL Constipation 11/28/18 17:04 12/28/18 17:03 12/02/18 09:01 Allergies: Coded Allergies: No Known Allergies (Verified , 09/12/10) ROS Limited/Unobtainable: Yes Subjective 78 YO M admitted with chest pain. Now pancytopenia and UTI. Cover for Int Med- Dr Hunter. Objective Last Vital Signs Date Time Temp Pulse Resp B/P (MAP) Pulse Ox O2 Delivery O2 Flow Rate FiO2 12/07/18 16:00 98.0 71 19 121/70 (87) 99 12/07/18 09:00 Nasal Cannula 4.0 12/06/18 09:41 28 Intake and Output 12/06/18 12/07/18 18:59 06:59 Intake Total 500 ml 400 ml Balance 500 ml 400 ml Intake Oral 500 ml 400 ml # Voids 3 2 Objective PHYSICAL EXAMINATION: GENERAL: The patient awake, responsive, no acute distress. HEAD AND NECK: Pupils are equal and reactive to light. Extraocular movements are intact. Neck was supple. No JVD LUNGS: Good air entry. No wheeze or rales. HEART: S1, S2. Distant heart sounds. No murmur or gallops. Pacemaker in left-sided chest wall. ABDOMEN: Soft, nondistended, nontender. EXTREMITIES: No cyanosis, clubbing, edema. Varicose veins, bilateral lower extremities. NEUROLOGIC: Cranial nerves II through XII grossly intact. Motor is 5/5 in all extremities. Gait is intact. RECTAL: Refused and deferred. GENITOURINARY: Refused and deferred. PSYCHIATRIC: Mood and affect is depressed. Assessment/Plan Assessment/Plan ASSESSMENT: 1. Chest pain, possible acute coronary syndrome. 2. Hypertension. 3. Dyslipidemia. 4. Congestive heart failure. 5. Coronary artery disease. 6. Sick sinus syndrome, status pacemaker. 7. UTI. 8. Pancytopenia; S/P transfusion 4 units PRBC total-Severe anemia, Thrombocytopenia and leukopenia-?leukemia? see onc note. PLAN: Admit the patient to telemetry. Discussed case with Dr. Gee from Cardiology Electrophysiology. Await cardiac nuclear stress test-outpatient Dr. Luong, Pulmonary Critical Care. Urine cult=E. Coli. Continue Rocephin. DVT prophylaxis, heparin subcutaneous. Code status, Full Code. The patient is expected to be in the hospital greater than 2 days Discharge paln: [facility] S/P transfusion 2 units PRBC on 11/19/18 See Hematology consult-?acute myelocytic leukemia? Discharge to [facility] today Nikhil West MD Dec 07, 2018 19:14
[2018-12-07] MEDS: Atorvastatin 20mg tab ORAL SCH (20:10)
[2018-12-08] VITALS: BP 109/66
[2018-12-08 04:00] VITALS: BP 150/68
[2018-12-08] MEDS: HYDROcodone/Acetamin 10/325 tab ORAL PRN ×2 (04:39→08:50)
[2018-12-08] MEDS: Levothyroxine 25mcg tab ORAL SCH (05:34)
[2018-12-08 08:00] VITALS: BP_SYST 103; BP_SYST 153; BP_DIAS 66; BP_DIAS 78
[2018-12-08] MEDS: Docusate 100mg cap ORAL SCH ×2 (08:43→21:12)
[2018-12-08] MEDS: Carvedilol 12.5mg tab ORAL SCH ×2 (08:50→21:12)
[2018-12-08] MEDS: Nitroglycerin Subl 0.4mg tab SL PRN (09:33)
[2018-12-08] MEDS ORDERED: Morphine Sulfate 2mg/ml Inj(IV/IM USE ONLY) IM PRN (10:00)
--- NOTE | 2018-12-08 11:12 | GI Progress Note ---
Assessment/Plan Problems: (1) History of CVA (cerebrovascular accident) ICD Codes: Z86.73 - Personal history of transient ischemic attack (TIA), and cerebral infarction without residual deficits SNOMED: 033569100 (2) Severe anemia ICD Codes: D64.9 - Anemia, unspecified SNOMED: 757599476 (3) Abdominal pain ICD Codes: R10.9 - Unspecified abdominal pain SNOMED: 75961259 (4) GERD (gastroesophageal reflux disease) ICD Codes: K21.9 - Gastro-esophageal reflux disease without esophagitis SNOMED: 379762396 Status: stable, unchanged Status Narrative Discussed with Dr. Mcguire Assessment/Plan SUMMARY OF FINDINGS: 1. Gastritis. 2. A 6 cm hiatal hernia. Refusing a.m. lab draws RECOMMENDATIONS: Follow up biopsy results and treat accordingly. BM biopsy>> leukemia>> fu oncology monitor H&H, prn transfusions. OB stool uncollected bowel regime ppi, H2B qhs Zofran as needed fu labs Outpatient hep C treatment The patient was seen and examined at bedside and all new and available data was reviewed in the patients chart. I agree with the above findings, impression and plan. (Patient seen earlier today. Signature stamp does not reflect patient encounter time.). - Richie Mcguire MD Subjective Subjective Complaint of chest pain Nausea Objective Last 24 Hour Vital Signs Date Time Temp Pulse Resp B/P (MAP) Pulse Ox O2 Delivery O2 Flow Rate FiO2 12/08/18 10:41 97.4 12/08/18 09:46 Nasal Cannula 2.0 28 12/08/18 09:46 98 Nasal Cannula 2.0 28 12/08/18 09:33 153/78 12/08/18 09:20 97.4 12/08/18 09:00 Nasal Cannula 2.0 12/08/18 08:50 74 153/78 12/08/18 08:00 97.4 74 19 153/78 (103) 100 12/08/18 04:00 97.4 65 16 150/68 (95) 98 12/08/18 00:00 98.0 66 18 109/66 (80) 99 12/07/18 21:00 Nasal Cannula 2.0 12/07/18 20:11 74 139/83 12/07/18 20:00 97.7 74 16 139/83 (101) 98 12/07/18 16:00 98.0 71 19 121/70 (87) 99 12/07/18 12:00 95.9 69 19 127/64 (85) 99 Intake and Output 12/07/18 12/08/18 19:00 07:00 Intake Total 120 ml Balance 120 ml Intake Oral 120 ml # Voids 1 1 Laboratory Tests Test 12/08/18 10:35 White Blood Count Pending Red Blood Count Pending Hemoglobin Pending Hematocrit Pending Mean Corpuscular Volume Pending Mean Corpuscular Hemoglobin Pending Mean Corpuscular Hemoglobin Concent Pending Red Cell Distribution Width Pending Platelet Count Pending Mean Platelet Volume Pending Neutrophils (%) (Auto) Pending Lymphocytes (%) (Auto) Pending Monocytes (%) (Auto) Pending Eosinophils (%) (Auto) Pending Basophils (%) (Auto) Pending Sodium Level Pending Potassium Level Pending Chloride Level Pending Carbon Dioxide Level Pending Blood Urea Nitrogen Pending Creatinine Pending Estimat Glomerular Filtration Rate Pending Glucose Level Pending Calcium Level Pending Height (Feet): 5 Height (Inches): 5.00 Weight (Pounds): 152 General Appearance: WD/WN, no apparent distress, alert Cardiovascular: normal rate Respiratory/Chest: normal breath sounds, no respiratory distress Abdominal Exam: normal bowel sounds, non tender, soft Extremities: normal range of motion, non-tender Jason Gray NP Dec 08, 2018 11:12
[2018-12-08 11:15] LABS: EOSINOPHILS % (AUTO) 0.3 % (0.0-3.0); HEMATOCRIT 26.6 % (42.0-52.0); HEMOGLOBIN 8.8 G/DL (14.2-18.0); LYMPHOCYTES % (AUTO) 20.7 % (20.0-45.0); MEAN CORPUSCULAR VOLUME 75 FL (80-99); MONOCYTES % (AUTO) 13.2 % (1.0-10.0); NEUTROPHILS % (AUTO) 60.8 % (45.0-75.0); PLATELET COUNT 106 K/UL (150-450); RED BLOOD COUNT 3.54 M/UL (4.70-6.10); RED CELL DISTRIBUTION WIDTH 23.2 % (11.6-14.8); WHITE BLOOD COUNT 5.7 K/UL (4.8-10.8)
[2018-12-08 11:36] LABS: ANION GAP 8 mmol/L (5-15); BLOOD UREA NITROGEN 30 mg/dL (7-18); CALCIUM 8.7 MG/DL (8.5-10.1); CARBON DIOXIDE 26 MMOL/L (21-32); CHLORIDE 97 MMOL/L (98-107); CREATININE 0.9 MG/DL (0.55-1.30); POTASSIUM 4.2 MMOL/L (3.5-5.1); SODIUM 131 MMOL/L (136-145)
[2018-12-08 12:00] VITALS: BP 139/73
--- NOTE | 2018-12-08 15:09 | Pulmonology Progress Note ---
Assessment/Plan Problems: (1) Myeloblastic leukemia (2) Severe thrombocytopenia (3) ACS (acute coronary syndrome) (4) Cardiomyopathy (5) HTN (hypertension) (6) Pacemaker (7) Hypothyroidism (8) CAD (coronary artery disease) Assessment/Plan still nausea dc all oral analgesics and try Fentanyl Patch doing better early leukemia PLT stable check electrolytes awaiting bone marrow biopsy results. flow cytometry abnormal all reviewed symptomatic treatment dc planning Subjective ROS Limited/Unobtainable: Yes Constitutional: Reports: no symptoms HEENT: Repors: no symptoms Allergies: Coded Allergies: No Known Allergies (Verified , 09/12/10) Objective Last 24 Hour Vital Signs Date Time Temp Pulse Resp B/P (MAP) Pulse Ox O2 Delivery O2 Flow Rate FiO2 12/08/18 12:00 97.2 67 18 139/73 (95) 99 12/08/18 10:41 97.4 12/08/18 09:46 Nasal Cannula 2.0 28 12/08/18 09:46 98 Nasal Cannula 2.0 28 12/08/18 09:33 153/78 12/08/18 09:20 97.4 12/08/18 09:00 Nasal Cannula 2.0 12/08/18 08:50 74 153/78 12/08/18 08:00 97.4 74 19 153/78 (103) 100 12/08/18 04:00 97.4 65 16 150/68 (95) 98 12/08/18 00:00 98.0 66 18 109/66 (80) 99 12/07/18 21:00 Nasal Cannula 2.0 12/07/18 20:11 74 139/83 12/07/18 20:00 97.7 74 16 139/83 (101) 98 12/07/18 16:00 98.0 71 19 121/70 (87) 99 Intake and Output 12/07/18 12/08/18 19:00 07:00 Intake Total 120 ml Balance 120 ml Intake Oral 120 ml # Voids 1 1 Objective General Appearance: cachetic Lines, tubes and drains: peripheral HEENT: normocephalic, atraumatic Neck: non-tender, normal alignment Respiratory/Chest: chest wall non-tender, lungs clear Breasts: no masses Cardiovascular/Chest: normal peripheral pulses, normal rate Abdomen: normal bowel sounds, non tender Genitourinary/Rectal: normal genital exam Extremities: normal range of motion Skin Exam: normal pigmentation 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: 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 grossly normal Laboratory Tests 12/08/18 10:35: White Blood Count 5.7, Red Blood Count 3.54L, Hemoglobin 8.8L, Hematocrit 26.6L , Mean Corpuscular Volume 75L, Mean Corpuscular Hemoglobin 24.8L, Mean Corpuscular Hemoglobin Concent 33.0, Red Cell Distribution Width 23.2H, Platelet Count 106L, Mean Platelet Volume 10.7H, Neutrophils (%) (Auto) 60.8, Lymphocytes (%) (Auto) 20.7, Monocytes (%) (Auto) 13.2H, Eosinophils (%) (Auto) 0.3, Basophils (%) (Auto) 5.0H, Sodium Level 131L, Potassium Level 4.2, Chloride Level 97L, Carbon Dioxide Level 26, Anion Gap 8, Blood Urea Nitrogen 30H, Creatinine 0.9, Estimat Glomerular Filtration Rate , Glucose Level 113H, Calcium Level 8.7 Current Medications Medications (Trade) Dose Ordered Sig/Scout Route PRN Reason Start Time Stop Time Status Last Admin Dose Admin Acetaminophen (Tylenol) 650 mg Q4H PRN ORAL Mild Pain (Pain Scale 1-3) 11/28/18 17:02 12/18/18 17:01 12/04/18 02:16 Acetaminophen (Tylenol) 650 mg Q4H PRN ORAL fever 11/28/18 17:02 12/18/18 17:01 Acetaminophen (Tylenol) 650 mg Q4H PRN RECTAL Mild Pain (Pain Scale 1-3) 11/28/18 17:02 12/18/18 17:01 Acetaminophen/ Hydrocodone Bitart ([place] 10/325) 1 tab Q4H PRN ORAL Severe Pain (Pain Scale 7-10) 12/07/18 10:00 12/14/18 09:59 12/08/18 08:50 Acetaminophen/ Hydrocodone Bitart ([place] 5/325) 1 tab Q4H PRN ORAL Moderate Pain (Pain Scale 4-6) 12/07/18 10:00 12/14/18 09:59 Atorvastatin Calcium (Lipitor) 40 mg BEDTIME ORAL 11/28/18 21:00 12/18/18 20:59 12/07/18 20:10 Bisacodyl (Dulcolax) 10 mg DAILYPRN PRN RECTAL Constipation 11/28/18 17:02 12/28/18 17:01 Carvedilol (Coreg) 12.5 mg EVERY 12 HOURS ORAL 11/28/18 21:00 12/18/18 20:59 12/08/18 08:50 Clonidine HCl (Catapres Tab) 0.1 mg Q2H PRN ORAL For High Blood Pressure 12/06/18 21:15 01/05/19 21:14 12/07/18 08:25 Dextrose (Dextrose 50%) 25 ml Q30M PRN IV Hypoglycemia 11/28/18 17:15 12/18/18 10:14 Dextrose (Dextrose 50%) 50 ml Q30M PRN IV Hypoglycemia 11/28/18 17:15 12/18/18 10:14 Docusate Sodium (Colace) 100 mg EVERY 12 HOURS ORAL 11/28/18 21:00 12/18/18 20:59 12/08/18 08:43 Escitalopram Oxalate (Lexapro) 15 mg DAILY ORAL 11/29/18 09:00 12/24/18 08:59 12/08/18 08:43 Famotidine (Pepcid) 20 mg QHS ORAL 11/30/18 21:00 12/30/18 20:59 12/07/18 20:09 Levothyroxine Sodium (Synthroid) 25 mcg Q24H ORAL 11/29/18 06:30 12/19/18 06:29 12/08/18 05:34 Magnesium Hydroxide (Mom) 30 ml HSPRN PRN ORAL Constipation 11/29/18 17:03 12/18/18 17:02 Morphine Sulfate (Morphine Sulfate) 2 mg Q4H PRN IM Breakthrough Pain 12/08/18 10:00 12/15/18 09:59 12/08/18 10:11 Nitroglycerin (Ntg) 0.4 mg Q5M PRN SL Prn Chest Pain 11/28/18 17:05 12/18/18 10:14 12/08/18 09:33 Ondansetron HCl (Zofran ODT) 4 mg Q4H PRN ORAL Nausea & Vomiting 12/07/18 10:00 01/06/19 09:59 12/08/18 08:50 Pantoprazole (Protonix) 40 mg DAILY ORAL 11/29/18 09:00 12/19/18 08:59 12/08/18 08:43 Polyethylene Glycol (Miralax) 17 gm DAILYPRN PRN ORAL Constipation 11/28/18 17:04 12/28/18 17:03 12/02/18 09:01 Chepe Luong MD Dec 08, 2018 15:09
[2018-12-08] MEDS ORDERED: Naloxone 0.4mg/ml Inj IV PRN (15:15)
[2018-12-08 16:00] VITALS: BP 114/60
[2018-12-08] MEDS ORDERED: fentaNYL Destruction MISC SCH (16:00)
--- NOTE | 2018-12-08 16:47 | General Progress Note ---
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 Transfuse prn. --> Epogen or iron at this time is not particularly indicated --> Medications have been reviewed # Reticulocytosis with elevated bilirubin that is indirect --> reviewed direct and indirect bilis again, trend could have liver disease --> liver US shows no significant cirrhosis --> evaluate as needed with gi team, recs apprecaited #. Chest pain, possible acute coronary syndrome. --> cards recs appreciated as well as pulm --> stress test prn #. Hypertension. #. Dyslipidemia. #. Congestive heart failure. #. Coronary artery disease. #. Sick sinus syndrome, status pacemaker. #. Acute E. coli UTI. #. Hep C+++ needs op management The timing of this note does not necessarily reflect the time of the patient was seen. Greatly appreciate consultation! Subjective ROS Limited/Unobtainable: Yes Allergies: Coded Allergies: No Known Allergies (Verified , 09/12/10) Subjective 11/27: no events to report, no f/c 11/28: seen by bedside, plt 65, plan for EGD and bone marrow biopsy tomorrow 11/29: BM biopsy today, no acute distress. 11/30: Had BM biopsy yesterday and now in reverse isolation. hgb 7.5, will transfuse as needed. 12/01: seen by bedside, plt remains low, awaiting bone marrow biopsy results. 12/02: No acute distress, no chest pain, no shortness of breath, wbc 2.7, hgb 7.3 , plt 50, will transfuse as needed. S/P BM biopsy 11/29/18, Results pending 12/04: bone marrow biopsy completed, and show myeloblasts, c/w mds/leukemia, requires close surveillance 12/05: hgb 6.9, Had blood transfusion today, plt up trending, no events 12/06: Seen by bedside, overall improved, still has complaint of chest pain, plt trending up 12/07: Given 1 unit prbc, continues to c/o chest pain, seen by cards 12/08: seen by bedside, complains of pain, plt 106, no events Objective Last 24 Hour Vital Signs Date Time Temp Pulse Resp B/P (MAP) Pulse Ox O2 Delivery O2 Flow Rate FiO2 12/08/18 16:00 97.0 68 19 114/60 (78) 97 12/08/18 12:00 97.2 67 18 139/73 (95) 99 12/08/18 10:41 97.4 12/08/18 09:46 Nasal Cannula 2.0 28 12/08/18 09:46 98 Nasal Cannula 2.0 28 12/08/18 09:33 153/78 12/08/18 09:20 97.4 12/08/18 09:00 Nasal Cannula 2.0 12/08/18 08:50 74 153/78 12/08/18 08:00 97.4 74 19 153/78 (103) 100 12/08/18 04:00 97.4 65 16 150/68 (95) 98 12/08/18 00:00 98.0 66 18 109/66 (80) 99 12/07/18 21:00 Nasal Cannula 2.0 12/07/18 20:11 74 139/83 12/07/18 20:00 97.7 74 16 139/83 (101) 98 Intake and Output 12/07/18 12/08/18 19:00 07:00 Intake Total 120 ml Balance 120 ml Intake Oral 120 ml # Voids 1 1 Laboratory Tests 12/08/18 10:35: White Blood Count 5.7, Red Blood Count 3.54L, Hemoglobin 8.8L, Hematocrit 26.6L , Mean Corpuscular Volume 75L, Mean Corpuscular Hemoglobin 24.8L, Mean Corpuscular Hemoglobin Concent 33.0, Red Cell Distribution Width 23.2H, Platelet Count 106L, Mean Platelet Volume 10.7H, Neutrophils (%) (Auto) 60.8, Lymphocytes (%) (Auto) 20.7, Monocytes (%) (Auto) 13.2H, Eosinophils (%) (Auto) 0.3, Basophils (%) (Auto) 5.0H, Sodium Level 131L, Potassium Level 4.2, Chloride Level 97L, Carbon Dioxide Level 26, Anion Gap 8, Blood Urea Nitrogen 30H, Creatinine 0.9, Estimat Glomerular Filtration Rate , Glucose Level 113H, Calcium Level 8.7 Height (Feet): 5 Height (Inches): 5.00 Weight (Pounds): 152 Objective General Appearance: well appearing, nad, alert Head: normocephalic, atraumatic Eyes: b/l eye PERRL, bilateral eye EOMI ENT: hearing grossly normal, normal pharynx Neck: full range of motion, supple, no meningismus Respiratory: chest non-tender, lungs clear, normal breath sounds Cardiovascular: regular rate, rhythm, no murmur Gastrointestinal: normal bowel sounds, non tender, no mass, no organomegaly, no bruit, non-distended Musculoskeletal: back normal, normal range of motion Psychiatric: mood/affect normal Skin: warm/dry Jose Alberto España MD Dec 08, 2018 16:47
[2018-12-08] MEDS: Albuterol/Ipratropium 3ml neb HHN PRN (17:57)
--- NOTE | 2018-12-08 18:01 | Cardiac Electrophysiology PN ---
Assessment/Plan Assessment/Plan 1. Atypical chest pain and hx of CABG. Likely due to severe anemia. Ruled out [place]. Nuclear stress test cancelled for severe anemia. Reschedule after pancytopenia is resolved. Can be done as out patient. On Lipitor and Coreg. Off Aspirin and Plavix for anemia and thrombocytopenia 2. Cardiomyopathy. EF now 55%. On Coreg 12.5 mg bid. Off Lisinopril and Lasix 3. Status post [facility] atrial biventricular defibrillator. Interrogated and showed Nl Fx 4. Severe anemia, S/P PRBC. FU GI. 5. Pancytopenia with Platelet count of 17. Off Aspirin and PLavix S/P platelet transfusion. S/P BM biopsy 11/29/18. S/P PRBC Bone marrow bipsy/aspiration concerning for LEUKEMIA with 8.7% myeloblasts, may need outpatient followup with Vidaza (IV or SQ) hypomethylating agent per Dr Dayami CORTEZ RN Subjective Subjective Comfortable in NAD. No events. Feeling weak Objective Last 24 Hour Vital Signs Date Time Temp Pulse Resp B/P (MAP) Pulse Ox O2 Delivery O2 Flow Rate FiO2 12/08/18 17:58 61 32 100 Nasal Cannula 5.0 40 12/08/18 17:58 61 32 Nasal Cannula 5.0 40 12/08/18 16:37 97.2 12/08/18 16:00 97.0 68 19 114/60 (78) 97 12/08/18 12:00 97.2 67 18 139/73 (95) 99 12/08/18 10:41 97.4 12/08/18 09:46 Nasal Cannula 2.0 28 12/08/18 09:46 98 Nasal Cannula 2.0 28 12/08/18 09:33 153/78 12/08/18 09:20 97.4 12/08/18 09:00 Nasal Cannula 2.0 12/08/18 08:50 74 153/78 12/08/18 08:00 97.4 74 19 153/78 (103) 100 12/08/18 04:00 97.4 65 16 150/68 (95) 98 12/08/18 00:00 98.0 66 18 109/66 (80) 99 12/07/18 21:00 Nasal Cannula 2.0 12/07/18 20:11 74 139/83 12/07/18 20:00 97.7 74 16 139/83 (101) 98 Intake and Output 12/07/18 12/08/18 18:59 06:59 Intake Total 120 ml Balance 120 ml Intake Oral 120 ml # Voids 1 1 Laboratory Tests Test 12/08/18 10:35 White Blood Count 5.7 K/UL (4.8-10.8) Red Blood Count 3.54 M/UL (4.70-6.10) L Hemoglobin 8.8 G/DL (14.2-18.0) L Hematocrit 26.6 % (42.0-52.0) L Mean Corpuscular Volume 75 FL (80-99) L Mean Corpuscular Hemoglobin 24.8 PG (27.0-31.0) L Mean Corpuscular Hemoglobin Concent 33.0 G/DL (32.0-36.0) Red Cell Distribution Width 23.2 % (11.6-14.8) H Platelet Count 106 K/UL (150-450) L Mean Platelet Volume 10.7 FL (6.5-10.1) H Neutrophils (%) (Auto) 60.8 % (45.0-75.0) Lymphocytes (%) (Auto) 20.7 % (20.0-45.0) Monocytes (%) (Auto) 13.2 % (1.0-10.0) H Eosinophils (%) (Auto) 0.3 % (0.0-3.0) Basophils (%) (Auto) 5.0 % (0.0-2.0) H Sodium Level 131 MMOL/L (136-145) L Potassium Level 4.2 MMOL/L (3.5-5.1) Chloride Level 97 MMOL/L (98-107) L Carbon Dioxide Level 26 MMOL/L (21-32) Anion Gap 8 mmol/L (5-15) Blood Urea Nitrogen 30 mg/dL (7-18) H Creatinine 0.9 MG/DL (0.55-1.30) Estimat Glomerular Filtration Rate mL/min (>60) Glucose Level 113 MG/DL (74-106) H Calcium Level 8.7 MG/DL (8.5-10.1) Objective HEAD AND NECK: No JVD. LUNGS: Coarse rhonchi. CARDIOVASCULAR: Regular S1 and S2 with no gallop or murmur. Sternotomy is intact. Defibrillator in left subclavian. ABDOMEN: Soft. EXTREMITIES: 1+ pitting edema. Satinder Gee MD Dec 08, 2018 18:01
--- NOTE | 2018-12-08 18:20 | Internal Med Progress Note ---
Subjective Date of Service: Dec 08, 2018 Physician Name Nikhil West Attending Physician Abdias Hunter MD Current Medications Medications (Trade) Dose Ordered Sig/Scout Route PRN Reason Start Time Stop Time Status Last Admin Dose Admin Acetaminophen (Tylenol) 650 mg Q4H PRN ORAL Mild Pain (Pain Scale 1-3) 11/28/18 17:02 12/18/18 17:01 12/04/18 02:16 Acetaminophen (Tylenol) 650 mg Q4H PRN ORAL fever 11/28/18 17:02 12/18/18 17:01 Acetaminophen (Tylenol) 650 mg Q4H PRN RECTAL Mild Pain (Pain Scale 1-3) 11/28/18 17:02 12/18/18 17:01 Albuterol/ Ipratropium (Albuterol/ Ipratropium) 3 ml Q6H PRN HHN sob 12/08/18 17:45 12/13/18 17:44 12/08/18 17:57 Atorvastatin Calcium (Lipitor) 40 mg BEDTIME ORAL 11/28/18 21:00 12/18/18 20:59 12/07/18 20:10 Bisacodyl (Dulcolax) 10 mg DAILYPRN PRN RECTAL Constipation 11/28/18 17:02 12/28/18 17:01 Carvedilol (Coreg) 12.5 mg EVERY 12 HOURS ORAL 11/28/18 21:00 12/18/18 20:59 12/08/18 08:50 Clonidine HCl (Catapres Tab) 0.1 mg Q2H PRN ORAL For High Blood Pressure 12/06/18 21:15 01/05/19 21:14 12/07/18 08:25 Dextrose (Dextrose 50%) 25 ml Q30M PRN IV Hypoglycemia 11/28/18 17:15 12/18/18 10:14 Dextrose (Dextrose 50%) 50 ml Q30M PRN IV Hypoglycemia 11/28/18 17:15 12/18/18 10:14 Docusate Sodium (Colace) 100 mg EVERY 12 HOURS ORAL 11/28/18 21:00 12/18/18 20:59 12/08/18 08:43 Escitalopram Oxalate (Lexapro) 15 mg DAILY ORAL 11/29/18 09:00 12/24/18 08:59 12/08/18 08:43 Famotidine (Pepcid) 20 mg QHS ORAL 11/30/18 21:00 12/30/18 20:59 12/07/18 20:09 Fentanyl (Duragesic) 1 patch Q72H TDERMAL 12/08/18 16:00 12/15/18 15:59 12/08/18 16:07 Levothyroxine Sodium (Synthroid) 25 mcg Q24H ORAL 11/29/18 06:30 12/19/18 06:29 12/08/18 05:34 Miscellaneous Medication (fentaNYL Destruction) 1 ea Q72H MISC 12/11/18 15:59 01/10/19 15:58 Naloxone HCl (Narcan) 0.1 mg PRN IV Sedation scale 3 or 4 12/08/18 15:15 01/07/19 15:14 Nitroglycerin (Ntg) 0.4 mg Q5M PRN SL Prn Chest Pain 11/28/18 17:05 12/18/18 10:14 12/08/18 09:33 Ondansetron HCl (Zofran ODT) 4 mg Q4H PRN ORAL Nausea & Vomiting 12/07/18 10:00 01/06/19 09:59 12/08/18 08:50 Pantoprazole (Protonix) 40 mg DAILY ORAL 11/29/18 09:00 12/19/18 08:59 12/08/18 08:43 Polyethylene Glycol (Miralax) 17 gm DAILYPRN PRN ORAL Constipation 11/28/18 17:04 12/28/18 17:03 12/02/18 09:01 Allergies: Coded Allergies: No Known Allergies (Verified , 09/12/10) ROS Limited/Unobtainable: No Constitutional: Reports: no symptoms HEENT: Reports: no symptoms Cardiovascular: Reports: no symptoms Respiratory: Reports: no symptoms Gastrointestinal/Abdominal: Reports: no symptoms Genitourinary: Reports: no symptoms Neurologic/Psychiatric: Reports: no symptoms Subjective 78 YO M admitted with chest pain. Now pancytopenia and UTI. Cover for Latesha Ruiz- Dr Hunter. Objective Last Vital Signs Date Time Temp Pulse Resp B/P (MAP) Pulse Ox O2 Delivery O2 Flow Rate FiO2 12/08/18 18:10 65 28 100 Nasal Cannula 3.0 32 12/08/18 16:37 97.2 12/08/18 16:00 114/60 (78) Laboratory Tests Test 12/08/18 10:35 White Blood Count 5.7 K/UL (4.8-10.8) Red Blood Count 3.54 M/UL (4.70-6.10) L Hemoglobin 8.8 G/DL (14.2-18.0) L Hematocrit 26.6 % (42.0-52.0) L Mean Corpuscular Volume 75 FL (80-99) L Mean Corpuscular Hemoglobin 24.8 PG (27.0-31.0) L Mean Corpuscular Hemoglobin Concent 33.0 G/DL (32.0-36.0) Red Cell Distribution Width 23.2 % (11.6-14.8) H Platelet Count 106 K/UL (150-450) L Mean Platelet Volume 10.7 FL (6.5-10.1) H Neutrophils (%) (Auto) 60.8 % (45.0-75.0) Lymphocytes (%) (Auto) 20.7 % (20.0-45.0) Monocytes (%) (Auto) 13.2 % (1.0-10.0) H Eosinophils (%) (Auto) 0.3 % (0.0-3.0) Basophils (%) (Auto) 5.0 % (0.0-2.0) H Sodium Level 131 MMOL/L (136-145) L Potassium Level 4.2 MMOL/L (3.5-5.1) Chloride Level 97 MMOL/L (98-107) L Carbon Dioxide Level 26 MMOL/L (21-32) Anion Gap 8 mmol/L (5-15) Blood Urea Nitrogen 30 mg/dL (7-18) H Creatinine 0.9 MG/DL (0.55-1.30) Estimat Glomerular Filtration Rate mL/min (>60) Glucose Level 113 MG/DL (74-106) H Calcium Level 8.7 MG/DL (8.5-10.1) Intake and Output 12/07/18 12/08/18 18:59 06:59 Intake Total 120 ml Balance 120 ml Intake Oral 120 ml # Voids 1 1 Objective PHYSICAL EXAMINATION: GENERAL: The patient awake, responsive, no acute distress. HEAD AND NECK: Pupils are equal and reactive to light. Extraocular movements are intact. Neck was supple. No JVD LUNGS: Good air entry. No wheeze or rales. HEART: S1, S2. Distant heart sounds. No murmur or gallops. Pacemaker in left-sided chest wall. ABDOMEN: Soft, nondistended, nontender. EXTREMITIES: No cyanosis, clubbing, edema. Varicose veins, bilateral lower extremities. NEUROLOGIC: Cranial nerves II through XII grossly intact. Motor is 5/5 in all extremities. Gait is intact. RECTAL: Refused and deferred. GENITOURINARY: Refused and deferred. PSYCHIATRIC: Mood and affect is depressed. Assessment/Plan Assessment/Plan ASSESSMENT: 1. Chest pain, possible acute coronary syndrome. 2. Hypertension. 3. Dyslipidemia. 4. Congestive heart failure. 5. Coronary artery disease. 6. Sick sinus syndrome, status pacemaker. 7. UTI. 8. Pancytopenia; S/P transfusion 4 units PRBC total-Severe anemia, Thrombocytopenia and leukopenia-?leukemia? see onc note. PLAN: Admit the patient to telemetry. Discussed case with Dr. Gee from Cardiology Electrophysiology. Await cardiac nuclear stress test-outpatient Dr. Luong, Pulmonary Critical Care. Urine cult=E. Coli. Continue Rocephin. DVT prophylaxis, heparin subcutaneous. Code status, Full Code. The patient is expected to be in the hospital greater than 2 days Discharge paln: [facility] S/P transfusion 2 units PRBC on 11/19/18 See Hematology consult-?acute myelocytic leukemia? Discharge to [facility] Nikhil West MD Dec 08, 2018 18:20
[2018-12-08 20:00] VITALS: BP 148/70
[2018-12-08] MEDS: Atorvastatin 20mg tab ORAL SCH (21:13)
[2018-12-09] VITALS: BP 136/67
[2018-12-09] MEDS: Morphine Sulfate 2mg/ml Inj(IV/IM USE ONLY) IM PRN ×4 (02:16→21:33)
[2018-12-09 04:00] VITALS: BP 149/76
[2018-12-09] MEDS: Levothyroxine 25mcg tab ORAL SCH (06:28)
[2018-12-09 08:00] VITALS: BP 160/97
[2018-12-09] MEDS: Albuterol/Ipratropium 3ml neb HHN PRN (09:20)
[2018-12-09] MEDS: Docusate 100mg cap ORAL SCH ×2 (09:31→21:34)
[2018-12-09] MEDS: Carvedilol 12.5mg tab ORAL SCH ×2 (09:31→21:33)
[2018-12-09] MEDS: Nitroglycerin Subl 0.4mg tab SL PRN (09:32)
[2018-12-09 10:10] LABS: HEMATOCRIT 27.8 % (42.0-52.0); HEMOGLOBIN 8.8 G/DL (14.2-18.0); MEAN CORPUSCULAR VOLUME 77 FL (80-99); PLATELET COUNT 69 K/UL (150-450); RED CELL DISTRIBUTION WIDTH 23.2 % (11.6-14.8); WHITE BLOOD COUNT 6.7 K/UL (4.8-10.8)
[2018-12-09 10:29] LABS: ALANINE AMINOTRANSFERASE 23 U/L (12-78); ALBUMIN 2.9 G/DL (3.4-5.0); ALBUMIN/GLOBULIN RATIO 0.6 (1.0-2.7); ALKALINE PHOSPHATASE 59 U/L (46-116); ANION GAP 7 mmol/L (5-15); ASPARTATE AMINO TRANSFERASE 32 U/L (15-37); BILIRUBIN,TOTAL 1.6 MG/DL (0.2-1.0); BLOOD UREA NITROGEN 28 mg/dL (7-18); CALCIUM 8.6 MG/DL (8.5-10.1); CARBON DIOXIDE 29 MMOL/L (21-32); CHLORIDE 97 MMOL/L (98-107); CREATININE 0.9 MG/DL (0.55-1.30); POTASSIUM 4.2 MMOL/L (3.5-5.1); SODIUM 133 MMOL/L (136-145)
[2018-12-09 10:31] LABS: BILIRUBIN,DIRECT 0.4 MG/DL (0.0-0.3)
--- NOTE | 2018-12-09 10:57 | GI Progress Note ---
Assessment/Plan Problems: (1) History of CVA (cerebrovascular accident) ICD Codes: Z86.73 - Personal history of transient ischemic attack (TIA), and cerebral infarction without residual deficits SNOMED: 770775654 (2) Severe anemia ICD Codes: D64.9 - Anemia, unspecified SNOMED: 862091176 (3) Abdominal pain ICD Codes: R10.9 - Unspecified abdominal pain SNOMED: 20872030 (4) GERD (gastroesophageal reflux disease) ICD Codes: K21.9 - Gastro-esophageal reflux disease without esophagitis SNOMED: 958364220 Status: unchanged Status Narrative Discussed with Dr. Mcguire Assessment/Plan SUMMARY OF FINDINGS: 1. Gastritis. 2. A 6 cm hiatal hernia. Refusing a.m. lab draws RECOMMENDATIONS: Follow up biopsy results and treat accordingly. BM biopsy>> leukemia>> fu oncology monitor H&H, prn transfusions. OB stool uncollected bowel regime ppi, H2B qhs Zofran as needed fu labs Outpatient hep C treatment The patient was seen and examined at bedside and all new and available data was reviewed in the patients chart. I agree with the above findings, impression and plan. (Patient seen earlier today. Signature stamp does not reflect patient encounter time.). - Richie Mcguire MD Subjective Subjective Complaint of chest pain Nausea Objective Last 24 Hour Vital Signs Date Time Temp Pulse Resp B/P (MAP) Pulse Ox O2 Delivery O2 Flow Rate FiO2 12/09/18 09:34 70 20 100 Nasal Cannula 4.0 36 12/09/18 09:32 160/97 12/09/18 09:31 61 160/97 12/09/18 09:24 61 32 100 Nasal Cannula 3.0 32 12/09/18 09:23 68 18 Nasal Cannula 3.0 32 12/09/18 09:21 98 Nasal Cannula 2.0 28 12/09/18 09:21 Nasal Cannula 2.0 28 12/09/18 09:00 Nasal Cannula 2.0 12/09/18 08:00 97.5 70 20 160/97 (118) 100 12/09/18 04:00 97.9 67 18 149/76 (100) 100 12/09/18 00:00 98.0 71 18 136/67 (90) 97 12/08/18 21:12 69 148/70 12/08/18 21:00 Nasal Cannula 2.0 12/08/18 20:00 97.2 69 18 148/70 (96) 100 12/08/18 18:10 65 28 100 Nasal Cannula 3.0 32 12/08/18 17:58 61 32 100 Nasal Cannula 5.0 40 12/08/18 17:58 61 32 Nasal Cannula 5.0 40 12/08/18 16:37 97.2 12/08/18 16:00 97.0 68 19 114/60 (78) 97 12/08/18 12:00 97.2 67 18 139/73 (95) 99 Intake and Output 12/08/18 12/09/18 19:00 07:00 Intake Total 120 ml Output Total 850 ml Balance 120 ml -850 ml Intake Oral 120 ml Output Urine Total 850 ml # Voids 2 Laboratory Tests Test 12/09/18 09:45 White Blood Count 6.7 K/UL (4.8-10.8) Red Blood Count 3.60 M/UL (4.70-6.10) L Hemoglobin 8.8 G/DL (14.2-18.0) L Hematocrit 27.8 % (42.0-52.0) L Mean Corpuscular Volume 77 FL (80-99) L Mean Corpuscular Hemoglobin 24.4 PG (27.0-31.0) L Mean Corpuscular Hemoglobin Concent 31.5 G/DL (32.0-36.0) L Red Cell Distribution Width 23.2 % (11.6-14.8) H Platelet Count 69 K/UL (150-450) L Mean Platelet Volume 6.9 FL (6.5-10.1) Neutrophils (%) (Auto) % (45.0-75.0) Lymphocytes (%) (Auto) % (20.0-45.0) Monocytes (%) (Auto) % (1.0-10.0) Eosinophils (%) (Auto) % (0.0-3.0) Basophils (%) (Auto) % (0.0-2.0) Neutrophils % (Manual) Pending Lymphocytes % (Manual) Pending Platelet Estimate Pending Platelet Morphology Pending Sodium Level 133 MMOL/L (136-145) L Potassium Level 4.2 MMOL/L (3.5-5.1) Chloride Level 97 MMOL/L (98-107) L Carbon Dioxide Level 29 MMOL/L (21-32) Anion Gap 7 mmol/L (5-15) Blood Urea Nitrogen 28 mg/dL (7-18) H Creatinine 0.9 MG/DL (0.55-1.30) Estimat Glomerular Filtration Rate mL/min (>60) Glucose Level 141 MG/DL (74-106) H Calcium Level 8.6 MG/DL (8.5-10.1) Total Bilirubin 1.6 MG/DL (0.2-1.0) H Direct Bilirubin 0.4 MG/DL (0.0-0.3) H Aspartate Amino Transf (AST/SGOT) 32 U/L (15-37) Alanine Aminotransferase (ALT/SGPT) 23 U/L (12-78) Alkaline Phosphatase 59 U/L (46-116) Total Protein 7.4 G/DL (6.4-8.2) Albumin 2.9 G/DL (3.4-5.0) L Globulin 4.5 g/dL Albumin/Globulin Ratio 0.6 (1.0-2.7) L Height (Feet): 5 Height (Inches): 5.00 Weight (Pounds): 151 General Appearance: WD/WN, no apparent distress, alert Cardiovascular: normal rate Respiratory/Chest: normal breath sounds, no respiratory distress Abdominal Exam: normal bowel sounds, non tender, soft Extremities: normal range of motion, non-tender Jason Gray NP Dec 09, 2018 10:57
[2018-12-09 12:00] VITALS: BP 131/62
--- NOTE | 2018-12-09 13:03 | Pulmonology Progress Note ---
Assessment/Plan Problems: (1) Myeloblastic leukemia (2) Severe thrombocytopenia (3) ACS (acute coronary syndrome) (4) Cardiomyopathy (5) HTN (hypertension) (6) Pacemaker (7) Hypothyroidism (8) CAD (coronary artery disease) Assessment/Plan episodes on N/V dc all oral analgesics and try Fentanyl Patch doing better early leukemia PLT stable check electrolytes awaiting bone marrow biopsy results. flow cytometry abnormal all reviewed symptomatic treatment dc planning Subjective ROS Limited/Unobtainable: No Constitutional: Reports: no symptoms HEENT: Repors: no symptoms Respiratory: Reports: no symptoms Allergies: Coded Allergies: No Known Allergies (Verified , 09/12/10) Objective Last 24 Hour Vital Signs Date Time Temp Pulse Resp B/P (MAP) Pulse Ox O2 Delivery O2 Flow Rate FiO2 12/09/18 12:00 97.6 61 20 131/62 (85) 100 12/09/18 09:34 70 20 100 Nasal Cannula 4.0 36 12/09/18 09:32 160/97 12/09/18 09:31 61 160/97 12/09/18 09:24 61 32 100 Nasal Cannula 3.0 32 12/09/18 09:23 68 18 Nasal Cannula 3.0 32 12/09/18 09:21 98 Nasal Cannula 2.0 28 12/09/18 09:21 Nasal Cannula 2.0 28 12/09/18 09:00 Nasal Cannula 2.0 12/09/18 08:00 97.5 70 20 160/97 (118) 100 12/09/18 04:00 97.9 67 18 149/76 (100) 100 12/09/18 00:00 98.0 71 18 136/67 (90) 97 12/08/18 21:12 69 148/70 12/08/18 21:00 Nasal Cannula 2.0 12/08/18 20:00 97.2 69 18 148/70 (96) 100 12/08/18 18:10 65 28 100 Nasal Cannula 3.0 32 12/08/18 17:58 61 32 100 Nasal Cannula 5.0 40 12/08/18 17:58 61 32 Nasal Cannula 5.0 40 12/08/18 16:37 97.2 12/08/18 16:00 97.0 68 19 114/60 (78) 97 Intake and Output 12/08/18 12/09/18 19:00 07:00 Intake Total 120 ml Output Total 850 ml Balance 120 ml -850 ml Intake Oral 120 ml Output Urine Total 850 ml # Voids 2 Objective General Appearance: cachetic Lines, tubes and drains: peripheral HEENT: normocephalic, atraumatic Neck: non-tender, normal alignment Respiratory/Chest: chest wall non-tender, lungs clear Breasts: no masses Cardiovascular/Chest: normal peripheral pulses, normal rate Abdomen: normal bowel sounds, non tender Genitourinary/Rectal: normal genital exam Extremities: normal range of motion Skin Exam: normal pigmentation 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 Laboratory Tests 12/09/18 09:45: White Blood Count 6.7, Red Blood Count 3.60L, Hemoglobin 8.8L, Hematocrit 27.8L , Mean Corpuscular Volume 77L, Mean Corpuscular Hemoglobin 24.4L, Mean Corpuscular Hemoglobin Concent 31.5L, Red Cell Distribution Width 23.2H, Platelet Count 69L, Mean Platelet Volume 6.9, Neutrophils (%) (Auto) , Lymphocytes (%) (Auto) , Monocytes (%) (Auto) , Eosinophils (%) (Auto) , Basophils (%) (Auto) , Differential Total Cells Counted 100, Neutrophils % ( Manual) 51, Lymphocytes % (Manual) 29, Monocytes % (Manual) 14H, Eosinophils % ( Manual) 1, Basophils % (Manual) 0, Band Neutrophils 5, Platelet Estimate DecreasedL, Platelet Morphology , Giant Platelets 1+, Hypochromasia 2+, Anisocytosis 3+, Microcytosis , Schistocytes Occasional, Sodium Level 133L, Potassium Level 4.2, Chloride Level 97L, Carbon Dioxide Level 29, Anion Gap 7, Blood Urea Nitrogen 28H, Creatinine 0.9, Estimat Glomerular Filtration Rate , Glucose Level 141H, Calcium Level 8.6, Total Bilirubin 1.6H, Direct Bilirubin 0.4H, Aspartate Amino Transf (AST/SGOT) 32, Alanine Aminotransferase (ALT/SGPT) 23, Alkaline Phosphatase 59, Total Protein 7.4, Albumin 2.9L, Globulin 4.5, Albumin/Globulin Ratio 0.6L Current Medications Medications (Trade) Dose Ordered Sig/Scout Route PRN Reason Start Time Stop Time Status Last Admin Dose Admin Acetaminophen (Tylenol) 650 mg Q4H PRN ORAL Mild Pain (Pain Scale 1-3) 11/28/18 17:02 12/18/18 17:01 12/04/18 02:16 Acetaminophen (Tylenol) 650 mg Q4H PRN ORAL fever 11/28/18 17:02 12/18/18 17:01 Acetaminophen (Tylenol) 650 mg Q4H PRN RECTAL Mild Pain (Pain Scale 1-3) 11/28/18 17:02 12/18/18 17:01 Albuterol/ Ipratropium (Albuterol/ Ipratropium) 3 ml Q6H PRN HHN sob 12/08/18 17:45 12/13/18 17:44 12/09/18 09:20 Atorvastatin Calcium (Lipitor) 40 mg BEDTIME ORAL 11/28/18 21:00 12/18/18 20:59 12/08/18 21:13 Bisacodyl (Dulcolax) 10 mg DAILYPRN PRN RECTAL Constipation 11/28/18 17:02 12/28/18 17:01 Carvedilol (Coreg) 12.5 mg EVERY 12 HOURS ORAL 11/28/18 21:00 12/18/18 20:59 12/09/18 09:31 Clonidine HCl (Catapres Tab) 0.1 mg Q2H PRN ORAL For High Blood Pressure 12/06/18 21:15 01/05/19 21:14 12/07/18 08:25 Dextrose (Dextrose 50%) 25 ml Q30M PRN IV Hypoglycemia 11/28/18 17:15 12/18/18 10:14 Dextrose (Dextrose 50%) 50 ml Q30M PRN IV Hypoglycemia 11/28/18 17:15 12/18/18 10:14 Docusate Sodium (Colace) 100 mg EVERY 12 HOURS ORAL 11/28/18 21:00 12/18/18 20:59 12/09/18 09:31 Escitalopram Oxalate (Lexapro) 15 mg DAILY ORAL 11/29/18 09:00 12/24/18 08:59 12/09/18 09:31 Famotidine (Pepcid) 20 mg QHS ORAL 11/30/18 21:00 12/30/18 20:59 12/08/18 21:12 Fentanyl (Duragesic) 1 patch Q72H TDERMAL 12/08/18 16:00 12/15/18 15:59 12/08/18 16:07 Levothyroxine Sodium (Synthroid) 25 mcg Q24H ORAL 11/29/18 06:30 12/19/18 06:29 12/09/18 06:28 Miscellaneous Medication (fentaNYL Destruction) 1 ea Q72H MISC 12/11/18 15:59 01/10/19 15:58 Morphine Sulfate (Morphine Sulfate) 2 mg Q4H PRN IM For Pain 12/08/18 19:00 12/15/18 18:59 12/09/18 06:29 Naloxone HCl (Narcan) 0.1 mg PRN IV Sedation scale 3 or 4 12/08/18 15:15 01/07/19 15:14 Nitroglycerin (Ntg) 0.4 mg Q5M PRN SL Prn Chest Pain 11/28/18 17:05 12/18/18 10:14 12/09/18 09:32 Ondansetron HCl (Zofran ODT) 4 mg Q4H PRN ORAL Nausea & Vomiting 12/07/18 10:00 01/06/19 09:59 12/08/18 22:52 Pantoprazole (Protonix) 40 mg DAILY ORAL 11/29/18 09:00 12/19/18 08:59 12/09/18 09:31 Polyethylene Glycol (Miralax) 17 gm DAILYPRN PRN ORAL Constipation 11/28/18 17:04 12/28/18 17:03 12/02/18 09:01 Chepe Luong MD Dec 09, 2018 13:03
--- NOTE | 2018-12-09 14:02 | Diagnostic Imaging Report ---
Indication: Shortness of breath Technique: One view of the chest Comparison: 11/28/2018 Findings: Right hemidiaphragm remains elevated. There is interim development of atelectasis or consolidation at the right lung base. There is slight blunting of left costophrenic sulcus, may indicate a small amount of pleural fluid. There is a left chest biventricular AICD again demonstrated. The heart is borderline enlarged. There is again demonstrated retrocardiac hiatal hernia. There is equivocal mild interstitial congestion Impression: Right basilar opacity, atelectasis and/or consolidation, developing since prior study of 11/28/2018 Mild interstitial congestion Suspect small left pleural effusion Borderline cardiomegaly
[2018-12-09 16:00] VITALS: BP 121/61
--- NOTE | 2018-12-09 17:37 | Cardiac Electrophysiology PN ---
Assessment/Plan Assessment/Plan 1. Atypical chest pain and hx of CABG. Likely due to severe anemia. Ruled out SD. Nuclear stress test cancelled for severe anemia. Reschedule after pancytopenia is resolved. Can be done as out patient. On Lipitor and Coreg. Off Aspirin and Plavix for anemia and thrombocytopenia 2. Cardiomyopathy. EF now 55%. On Coreg 12.5 mg bid. Off Lisinopril and Lasix 3. Status post [facility] atrial biventricular defibrillator. Interrogated and showed Nl Fx 4. Severe anemia, S/P PRBC. FU GI. 5. Pancytopenia with Platelet count of 17. Off Aspirin and PLavix S/P platelet transfusion. S/P BM biopsy 11/29/18. S/P PRBC Bone marrow bipsy/aspiration concerning for LEUKEMIA with 8.7% myeloblasts, Outpatient follow up for chemo by Dr Dayami CORTEZ RN Subjective Subjective Is depressed as found out about his cancer Objective Last 24 Hour Vital Signs Date Time Temp Pulse Resp B/P (MAP) Pulse Ox O2 Delivery O2 Flow Rate FiO2 12/09/18 16:00 97.4 61 20 121/61 (81) 100 12/09/18 15:17 97.6 12/09/18 12:00 97.6 61 20 131/62 (85) 100 12/09/18 09:34 70 20 100 Nasal Cannula 4.0 36 12/09/18 09:32 160/97 12/09/18 09:31 61 160/97 12/09/18 09:24 61 32 100 Nasal Cannula 3.0 32 12/09/18 09:23 68 18 Nasal Cannula 3.0 32 12/09/18 09:21 98 Nasal Cannula 2.0 28 12/09/18 09:21 Nasal Cannula 2.0 28 12/09/18 09:00 Nasal Cannula 2.0 12/09/18 08:00 97.5 70 20 160/97 (118) 100 12/09/18 04:00 97.9 67 18 149/76 (100) 100 12/09/18 00:00 98.0 71 18 136/67 (90) 97 12/08/18 21:12 69 148/70 12/08/18 21:00 Nasal Cannula 2.0 12/08/18 20:00 97.2 69 18 148/70 (96) 100 12/08/18 18:10 65 28 100 Nasal Cannula 3.0 32 12/08/18 17:58 61 32 100 Nasal Cannula 5.0 40 12/08/18 17:58 61 32 Nasal Cannula 5.0 40 Intake and Output 12/08/18 12/09/18 19:00 07:00 Intake Total 120 ml Output Total 850 ml Balance 120 ml -850 ml Intake Oral 120 ml Output Urine Total 850 ml # Voids 2 Laboratory Tests Test 12/09/18 09:45 White Blood Count 6.7 K/UL (4.8-10.8) Red Blood Count 3.60 M/UL (4.70-6.10) L Hemoglobin 8.8 G/DL (14.2-18.0) L Hematocrit 27.8 % (42.0-52.0) L Mean Corpuscular Volume 77 FL (80-99) L Mean Corpuscular Hemoglobin 24.4 PG (27.0-31.0) L Mean Corpuscular Hemoglobin Concent 31.5 G/DL (32.0-36.0) L Red Cell Distribution Width 23.2 % (11.6-14.8) H Platelet Count 69 K/UL (150-450) L Mean Platelet Volume 6.9 FL (6.5-10.1) Neutrophils (%) (Auto) % (45.0-75.0) Lymphocytes (%) (Auto) % (20.0-45.0) Monocytes (%) (Auto) % (1.0-10.0) Eosinophils (%) (Auto) % (0.0-3.0) Basophils (%) (Auto) % (0.0-2.0) Differential Total Cells Counted 100 Neutrophils % (Manual) 51 % (45-75) Lymphocytes % (Manual) 29 % (20-45) Monocytes % (Manual) 14 % (1-10) H Eosinophils % (Manual) 1 % (0-3) Basophils % (Manual) 0 % (0-2) Band Neutrophils 5 % (0-8) Platelet Estimate Decreased L Platelet Morphology Giant Platelets 1+ Hypochromasia 2+ Anisocytosis 3+ Microcytosis Schistocytes Occasional Sodium Level 133 MMOL/L (136-145) L Potassium Level 4.2 MMOL/L (3.5-5.1) Chloride Level 97 MMOL/L (98-107) L Carbon Dioxide Level 29 MMOL/L (21-32) Anion Gap 7 mmol/L (5-15) Blood Urea Nitrogen 28 mg/dL (7-18) H Creatinine 0.9 MG/DL (0.55-1.30) Estimat Glomerular Filtration Rate mL/min (>60) Glucose Level 141 MG/DL (74-106) H Calcium Level 8.6 MG/DL (8.5-10.1) Total Bilirubin 1.6 MG/DL (0.2-1.0) H Direct Bilirubin 0.4 MG/DL (0.0-0.3) H Aspartate Amino Transf (AST/SGOT) 32 U/L (15-37) Alanine Aminotransferase (ALT/SGPT) 23 U/L (12-78) Alkaline Phosphatase 59 U/L (46-116) Total Protein 7.4 G/DL (6.4-8.2) Albumin 2.9 G/DL (3.4-5.0) L Globulin 4.5 g/dL Albumin/Globulin Ratio 0.6 (1.0-2.7) L Objective HEAD AND NECK: No JVD. LUNGS: Coarse rhonchi. CARDIOVASCULAR: Regular S1 and S2 with no gallop or murmur. Sternotomy is intact. Defibrillator in left subclavian. ABDOMEN: Soft. EXTREMITIES: 1+ pitting edema. Satinder Gee MD Dec 09, 2018 17:37
--- NOTE | 2018-12-09 18:59 | Internal Med Progress Note ---
Subjective Date of Service: Dec 09, 2018 Physician Name Nikhil West Attending Physician Abdias Hunter MD Current Medications Medications (Trade) Dose Ordered Sig/Scout Route PRN Reason Start Time Stop Time Status Last Admin Dose Admin Acetaminophen (Tylenol) 650 mg Q4H PRN ORAL Mild Pain (Pain Scale 1-3) 11/28/18 17:02 12/18/18 17:01 12/04/18 02:16 Acetaminophen (Tylenol) 650 mg Q4H PRN ORAL fever 11/28/18 17:02 12/18/18 17:01 Acetaminophen (Tylenol) 650 mg Q4H PRN RECTAL Mild Pain (Pain Scale 1-3) 11/28/18 17:02 12/18/18 17:01 Albuterol/ Ipratropium (Albuterol/ Ipratropium) 3 ml Q6H PRN HHN sob 12/08/18 17:45 12/13/18 17:44 12/09/18 09:20 Atorvastatin Calcium (Lipitor) 40 mg BEDTIME ORAL 11/28/18 21:00 12/18/18 20:59 12/08/18 21:13 Bisacodyl (Dulcolax) 10 mg DAILYPRN PRN RECTAL Constipation 11/28/18 17:02 12/28/18 17:01 Carvedilol (Coreg) 12.5 mg EVERY 12 HOURS ORAL 11/28/18 21:00 12/18/18 20:59 12/09/18 09:31 Clonidine HCl (Catapres Tab) 0.1 mg Q2H PRN ORAL For High Blood Pressure 12/06/18 21:15 01/05/19 21:14 12/07/18 08:25 Dextrose (Dextrose 50%) 25 ml Q30M PRN IV Hypoglycemia 11/28/18 17:15 12/18/18 10:14 Dextrose (Dextrose 50%) 50 ml Q30M PRN IV Hypoglycemia 11/28/18 17:15 12/18/18 10:14 Docusate Sodium (Colace) 100 mg EVERY 12 HOURS ORAL 11/28/18 21:00 12/18/18 20:59 12/09/18 09:31 Escitalopram Oxalate (Lexapro) 15 mg DAILY ORAL 11/29/18 09:00 12/24/18 08:59 12/09/18 09:31 Famotidine (Pepcid) 20 mg QHS ORAL 11/30/18 21:00 12/30/18 20:59 12/08/18 21:12 Fentanyl (Duragesic) 1 patch Q72H TDERMAL 12/08/18 16:00 12/15/18 15:59 12/08/18 16:07 Levothyroxine Sodium (Synthroid) 25 mcg Q24H ORAL 11/29/18 06:30 12/19/18 06:29 12/09/18 06:28 Miscellaneous Medication (fentaNYL Destruction) 1 ea Q72H MISC 12/11/18 15:59 01/10/19 15:58 Morphine Sulfate (Morphine Sulfate) 2 mg Q4H PRN IM For Pain 12/08/18 19:00 12/15/18 18:59 12/09/18 14:47 Naloxone HCl (Narcan) 0.1 mg PRN IV Sedation scale 3 or 4 12/08/18 15:15 01/07/19 15:14 Nitroglycerin (Ntg) 0.4 mg Q5M PRN SL Prn Chest Pain 11/28/18 17:05 12/18/18 10:14 12/09/18 09:32 Ondansetron HCl (Zofran ODT) 4 mg Q4H PRN ORAL Nausea & Vomiting 12/07/18 10:00 01/06/19 09:59 12/09/18 14:55 Pantoprazole (Protonix) 40 mg DAILY ORAL 11/29/18 09:00 12/19/18 08:59 12/09/18 09:31 Polyethylene Glycol (Miralax) 17 gm DAILYPRN PRN ORAL Constipation 11/28/18 17:04 12/28/18 17:03 12/02/18 09:01 Allergies: Coded Allergies: No Known Allergies (Verified , 09/12/10) ROS Limited/Unobtainable: No Constitutional: Reports: no symptoms HEENT: Reports: no symptoms Cardiovascular: Reports: no symptoms Respiratory: Reports: no symptoms Gastrointestinal/Abdominal: Reports: no symptoms Genitourinary: Reports: no symptoms Neurologic/Psychiatric: Reports: no symptoms Subjective 78 YO M admitted with chest pain. Now pancytopenia and UTI. Cover for Int Joseph- Dr Hunter. Objective Last Vital Signs Date Time Temp Pulse Resp B/P (MAP) Pulse Ox O2 Delivery O2 Flow Rate FiO2 12/09/18 16:00 97.4 61 20 121/61 (81) 100 12/09/18 09:34 Nasal Cannula 4.0 36 Laboratory Tests Test 12/09/18 09:45 White Blood Count 6.7 K/UL (4.8-10.8) Red Blood Count 3.60 M/UL (4.70-6.10) L Hemoglobin 8.8 G/DL (14.2-18.0) L Hematocrit 27.8 % (42.0-52.0) L Mean Corpuscular Volume 77 FL (80-99) L Mean Corpuscular Hemoglobin 24.4 PG (27.0-31.0) L Mean Corpuscular Hemoglobin Concent 31.5 G/DL (32.0-36.0) L Red Cell Distribution Width 23.2 % (11.6-14.8) H Platelet Count 69 K/UL (150-450) L Mean Platelet Volume 6.9 FL (6.5-10.1) Neutrophils (%) (Auto) % (45.0-75.0) Lymphocytes (%) (Auto) % (20.0-45.0) Monocytes (%) (Auto) % (1.0-10.0) Eosinophils (%) (Auto) % (0.0-3.0) Basophils (%) (Auto) % (0.0-2.0) Differential Total Cells Counted 100 Neutrophils % (Manual) 51 % (45-75) Lymphocytes % (Manual) 29 % (20-45) Monocytes % (Manual) 14 % (1-10) H Eosinophils % (Manual) 1 % (0-3) Basophils % (Manual) 0 % (0-2) Band Neutrophils 5 % (0-8) Platelet Estimate Decreased L Platelet Morphology Giant Platelets 1+ Hypochromasia 2+ Anisocytosis 3+ Microcytosis Schistocytes Occasional Sodium Level 133 MMOL/L (136-145) L Potassium Level 4.2 MMOL/L (3.5-5.1) Chloride Level 97 MMOL/L (98-107) L Carbon Dioxide Level 29 MMOL/L (21-32) Anion Gap 7 mmol/L (5-15) Blood Urea Nitrogen 28 mg/dL (7-18) H Creatinine 0.9 MG/DL (0.55-1.30) Estimat Glomerular Filtration Rate mL/min (>60) Glucose Level 141 MG/DL (74-106) H Calcium Level 8.6 MG/DL (8.5-10.1) Total Bilirubin 1.6 MG/DL (0.2-1.0) H Direct Bilirubin 0.4 MG/DL (0.0-0.3) H Aspartate Amino Transf (AST/SGOT) 32 U/L (15-37) Alanine Aminotransferase (ALT/SGPT) 23 U/L (12-78) Alkaline Phosphatase 59 U/L (46-116) Total Protein 7.4 G/DL (6.4-8.2) Albumin 2.9 G/DL (3.4-5.0) L Globulin 4.5 g/dL Albumin/Globulin Ratio 0.6 (1.0-2.7) L Intake and Output 12/08/18 12/09/18 19:00 07:00 Intake Total 120 ml Output Total 850 ml Balance 120 ml -850 ml Intake Oral 120 ml Output Urine Total 850 ml # Voids 2 Objective PHYSICAL EXAMINATION: GENERAL: The patient awake, responsive, no acute distress. HEAD AND NECK: Pupils are equal and reactive to light. Extraocular movements are intact. Neck was supple. No JVD LUNGS: Good air entry. No wheeze or rales. HEART: S1, S2. Distant heart sounds. No murmur or gallops. Pacemaker in left-sided chest wall. ABDOMEN: Soft, nondistended, nontender. EXTREMITIES: No cyanosis, clubbing, edema. Varicose veins, bilateral lower extremities. NEUROLOGIC: Cranial nerves II through XII grossly intact. Motor is 5/5 in all extremities. Gait is intact. RECTAL: Refused and deferred. GENITOURINARY: Refused and deferred. PSYCHIATRIC: Mood and affect is depressed. Assessment/Plan Assessment/Plan ASSESSMENT: 1. Chest pain, possible acute coronary syndrome. 2. Hypertension. 3. Dyslipidemia. 4. Congestive heart failure. 5. Coronary artery disease. 6. Sick sinus syndrome, status pacemaker. 7. UTI. 8. Pancytopenia; S/P transfusion 4 units PRBC total-Severe anemia, Thrombocytopenia and leukopenia-?leukemia? see onc note. PLAN: Admit the patient to telemetry. Discussed case with Dr. Gee from Cardiology Electrophysiology. Await cardiac nuclear stress test-outpatient Dr. Luong, Pulmonary Critical Care. Urine cult=E. Coli. Continue Rocephin. DVT prophylaxis, heparin subcutaneous. Code status, Full Code. The patient is expected to be in the hospital greater than 2 days Discharge paln: [facility] S/P transfusion 2 units PRBC on 11/19/18 See Hematology consult-?acute myelocytic leukemia? Discharge to [facility] Nikhil West MD Dec 09, 2018 18:59
--- NOTE | 2018-12-09 19:59 | General Progress Note ---
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 Transfuse prn. --> Epogen or iron at this time is not particularly indicated --> Medications have been reviewed --> Hgb trend: 8--> # Reticulocytosis with elevated bilirubin that is indirect --> reviewed direct and indirect bilis again, trend could have liver disease --> liver US shows no significant cirrhosis --> evaluate as needed with gi team, recs apprecaited #. Chest pain, possible acute coronary syndrome. --> cards recs appreciated as well as pulm --> stress test prn #. Hypertension. #. Dyslipidemia. #. Congestive heart failure. #. Coronary artery disease. #. Sick sinus syndrome, status pacemaker. #. Acute E. coli UTI. #. Hep C+++ needs op management The timing of this note does not necessarily reflect the time of the patient was seen. Greatly appreciate consultation! Subjective Allergies: Coded Allergies: No Known Allergies (Verified , 09/12/10) Subjective 11/27: no events to report, no f/c 11/28: seen by bedside, plt 65, plan for EGD and bone marrow biopsy tomorrow 11/29: BM biopsy today, no acute distress. 11/30: Had BM biopsy yesterday and now in reverse isolation. hgb 7.5, will transfuse as needed. 12/01: seen by bedside, plt remains low, awaiting bone marrow biopsy results. 12/02: No acute distress, no chest pain, no shortness of breath, wbc 2.7, hgb 7.3 , plt 50, will transfuse as needed. S/P BM biopsy 11/29/18, Results pending 12/04: bone marrow biopsy completed, and show myeloblasts, c/w mds/leukemia, requires close surveillance 12/05: hgb 6.9, Had blood transfusion today, plt up trending, no events 12/06: Seen by bedside, overall improved, still has complaint of chest pain, plt trending up 12/07: Given 1 unit prbc, continues to c/o chest pain, seen by cards 12/08: seen by bedside, complains of pain, plt 106, no events 12/09: awake, comfortable, plt trending down at 69, no events Objective Last 24 Hour Vital Signs Date Time Temp Pulse Resp B/P (MAP) Pulse Ox O2 Delivery O2 Flow Rate FiO2 12/09/18 16:00 97.4 61 20 121/61 (81) 100 12/09/18 15:17 97.6 12/09/18 12:00 97.6 61 20 131/62 (85) 100 12/09/18 09:34 70 20 100 Nasal Cannula 4.0 36 12/09/18 09:32 160/97 12/09/18 09:31 61 160/97 12/09/18 09:24 61 32 100 Nasal Cannula 3.0 32 12/09/18 09:23 68 18 Nasal Cannula 3.0 32 12/09/18 09:21 98 Nasal Cannula 2.0 28 12/09/18 09:21 Nasal Cannula 2.0 28 12/09/18 09:00 Nasal Cannula 2.0 12/09/18 08:00 97.5 70 20 160/97 (118) 100 12/09/18 04:00 97.9 67 18 149/76 (100) 100 12/09/18 00:00 98.0 71 18 136/67 (90) 97 12/08/18 21:12 69 148/70 12/08/18 21:00 Nasal Cannula 2.0 12/08/18 20:00 97.2 69 18 148/70 (96) 100 Intake and Output 12/08/18 12/09/18 19:00 07:00 Intake Total 120 ml Output Total 850 ml Balance 120 ml -850 ml Intake Oral 120 ml Output Urine Total 850 ml # Voids 2 Laboratory Tests 12/09/18 09:45: White Blood Count 6.7, Red Blood Count 3.60L, Hemoglobin 8.8L, Hematocrit 27.8L , Mean Corpuscular Volume 77L, Mean Corpuscular Hemoglobin 24.4L, Mean Corpuscular Hemoglobin Concent 31.5L, Red Cell Distribution Width 23.2H, Platelet Count 69L, Mean Platelet Volume 6.9, Neutrophils (%) (Auto) , Lymphocytes (%) (Auto) , Monocytes (%) (Auto) , Eosinophils (%) (Auto) , Basophils (%) (Auto) , Differential Total Cells Counted 100, Neutrophils % ( Manual) 51, Lymphocytes % (Manual) 29, Monocytes % (Manual) 14H, Eosinophils % ( Manual) 1, Basophils % (Manual) 0, Band Neutrophils 5, Platelet Estimate DecreasedL, Platelet Morphology , Giant Platelets 1+, Hypochromasia 2+, Anisocytosis 3+, Microcytosis , Schistocytes Occasional, Sodium Level 133L, Potassium Level 4.2, Chloride Level 97L, Carbon Dioxide Level 29, Anion Gap 7, Blood Urea Nitrogen 28H, Creatinine 0.9, Estimat Glomerular Filtration Rate , Glucose Level 141H, Calcium Level 8.6, Total Bilirubin 1.6H, Direct Bilirubin 0.4H, Aspartate Amino Transf (AST/SGOT) 32, Alanine Aminotransferase (ALT/SGPT) 23, Alkaline Phosphatase 59, Total Protein 7.4, Albumin 2.9L, Globulin 4.5, Albumin/Globulin Ratio 0.6L Height (Feet): 5 Height (Inches): 5.00 Weight (Pounds): 151 Objective General Appearance: well appearing, nad, alert Head: normocephalic, atraumatic Eyes: b/l eye PERRL, bilateral eye EOMI ENT: hearing grossly normal, normal pharynx Neck: full range of motion, supple, no meningismus Respiratory: chest non-tender, lungs clear, normal breath sounds Cardiovascular: regular rate, rhythm, no murmur Gastrointestinal: normal bowel sounds, non tender, no mass, no organomegaly, no bruit, non-distended Musculoskeletal: back normal, normal range of motion Psychiatric: mood/affect normal Skin: warm/dry Jose Alberto España MD Dec 09, 2018 19:59
[2018-12-09 20:00] VITALS: BP 118/67
[2018-12-09] MEDS ORDERED: 1/2 NS 1000ml IV ONE (20:20)
[2018-12-09] MEDS: Atorvastatin 20mg tab ORAL SCH (21:34)
[2018-12-10] VITALS (7 sets, daily range): BP systolic 96–130; BP diastolic 45–85
[2018-12-10] MEDS: Morphine Sulfate 2mg/ml Inj(IV/IM USE ONLY) IM PRN ×5 (02:27→23:03)
[2018-12-10] MEDS: Levothyroxine 25mcg tab ORAL SCH (06:36)
[2018-12-10 06:46] LABS: ANION GAP 5 mmol/L (5-15); BLOOD UREA NITROGEN 22 mg/dL (7-18); CALCIUM 8.6 MG/DL (8.5-10.1); CARBON DIOXIDE 31 MMOL/L (21-32); CHLORIDE 98 MMOL/L (98-107); CREATININE 0.8 MG/DL (0.55-1.30); SODIUM 133 MMOL/L (136-145)
[2018-12-10 06:52] LABS: HEMOGLOBIN 9.2 G/DL (14.2-18.0); MEAN CORPUSCULAR VOLUME 79 FL (80-99); PLATELET COUNT 70 K/UL (150-450); RED CELL DISTRIBUTION WIDTH 23.5 % (11.6-14.8); WHITE BLOOD COUNT 6.7 K/UL (4.8-10.8)
[2018-12-10] MEDS: Docusate 100mg cap ORAL SCH ×2 (09:06→20:26)
[2018-12-10] MEDS: Carvedilol 12.5mg tab ORAL SCH ×2 (09:07→20:00)
[2018-12-10] MEDS: Albuterol/Ipratropium 3ml neb HHN PRN (10:18)
--- NOTE | 2018-12-10 13:02 | Pulmonology Progress Note ---
Assessment/Plan Assessment/Plan ASSESSMENT. atypical CP, likely due to severe anemia HTN CHF CAD with hx of CABG Severe pulmonary HTN AICD,s/p interrogation Hx of CM, ( now stable EF) Dyslipidemia E. coli UTI. 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 s/p plateletpheresis transfusion HIV nonreactive, hep panel negative s/p bone marrow biopsy, likely early leukemia vs myelodysplasia as per heme urine culture+ E. coli , s/p Rx bowel regimen outpt Rx for hep C as per Gi recs s/p EGD with findings of gastritis, biopsy - no H pylori, no dysplasia, metaplasia supportive care pain management psychiatric medication regimen as per psychiatrist case discussed and evaluated by supervising physician Subjective Allergies: Coded Allergies: No Known Allergies (Verified , 09/12/10) Subjective on O2 via NC pulse ox stable no SOB denies chest pain, palpitations Objective Last 24 Hour Vital Signs Date Time Temp Pulse Resp B/P (MAP) Pulse Ox O2 Delivery O2 Flow Rate FiO2 12/10/18 12:00 97.7 60 20 111/52 (71) 100 12/10/18 11:13 97.9 12/10/18 10:31 67 22 98 Nasal Cannula 4.0 36 12/10/18 10:20 Nasal Cannula 4.0 36 12/10/18 10:20 62 20 Nasal Cannula 4.0 36 12/10/18 10:18 62 20 98 Nasal Cannula 4.0 36 12/10/18 09:07 64 122/50 12/10/18 09:00 Nasal Cannula 2.0 12/10/18 08:00 97.9 64 18 122/50 (74) 96 12/10/18 04:00 97.8 63 18 117/67 (84) 100 12/10/18 00:00 97.2 63 20 125/57 (79) 100 12/09/18 23:48 100 Nasal Cannula 3.0 32 12/09/18 23:48 60 20 Nasal Cannula 3.0 32 12/09/18 23:48 Nasal Cannula 3.0 32 12/09/18 21:33 63 118/67 12/09/18 21:00 Nasal Cannula 2.0 12/09/18 20:00 97.7 63 20 118/67 (84) 100 12/09/18 16:00 97.4 61 20 121/61 (81) 100 Intake and Output 12/09/18 12/10/18 19:00 07:00 Intake Total 360 ml Output Total 450 ml Balance 360 ml -450 ml Intake Oral 360 ml Output Urine Total 450 ml # Voids 5 2 Objective General Appearance: no acute distress, awake, alert, pale HEENT: normocephalic, atraumatic, anicteric, mucous membranes moist Respiratory/Chest: lungs clear, no respiratory distress, no accessory muscle use Cardiovascular: normal rate , , no JVD Abdomen: normal bowel sounds, soft, non tender, non distended Extremities: no edema Neurologic/Psychiatric: alert, oriented x 3, responsive Musculoskeletal: normal muscle bulk Laboratory Tests 12/10/18 05:35: White Blood Count 6.7, Red Blood Count 3.70L, Hemoglobin 9.2L, Hematocrit 29.0L , Mean Corpuscular Volume 79L, Mean Corpuscular Hemoglobin 24.9L, Mean Corpuscular Hemoglobin Concent 31.7L, Red Cell Distribution Width 23.5H, Platelet Count 70L, Mean Platelet Volume 8.1, Neutrophils (%) (Auto) , Lymphocytes (%) (Auto) , Monocytes (%) (Auto) , Eosinophils (%) (Auto) , Basophils (%) (Auto) , Differential Total Cells Counted 100, Neutrophils % ( Manual) 53, Lymphocytes % (Manual) 26, Monocytes % (Manual) 6, Eosinophils % ( Manual) 0, Basophils % (Manual) 0, Myelocytes % 1H, Band Neutrophils 14H, Platelet Estimate DecreasedL, Platelet Morphology See comment, Giant Platelets Occasional, Hypochromasia 2+, Anisocytosis 3+, Microcytosis 1+, [place] Cells 2+, Sodium Level 133L, Potassium Level 4.0, Chloride Level 98, Carbon Dioxide Level 31, Anion Gap 5, Blood Urea Nitrogen 22H, Creatinine 0.8, Estimat Glomerular Filtration Rate , Glucose Level 96, Calcium Level 8.6 Current Medications Medications (Trade) Dose Ordered Sig/Scout Route PRN Reason Start Time Stop Time Status Last Admin Dose Admin Acetaminophen (Tylenol) 650 mg Q4H PRN ORAL Mild Pain (Pain Scale 1-3) 11/28/18 17:02 12/18/18 17:01 12/04/18 02:16 Acetaminophen (Tylenol) 650 mg Q4H PRN ORAL fever 11/28/18 17:02 12/18/18 17:01 Acetaminophen (Tylenol) 650 mg Q4H PRN RECTAL Mild Pain (Pain Scale 1-3) 11/28/18 17:02 12/18/18 17:01 Albuterol/ Ipratropium (Albuterol/ Ipratropium) 3 ml Q6H PRN HHN sob 12/08/18 17:45 12/13/18 17:44 12/10/18 10:18 Atorvastatin Calcium (Lipitor) 40 mg BEDTIME ORAL 11/28/18 21:00 12/18/18 20:59 12/09/18 21:34 Bisacodyl (Dulcolax) 10 mg DAILYPRN PRN RECTAL Constipation 11/28/18 17:02 12/28/18 17:01 Carvedilol (Coreg) 12.5 mg EVERY 12 HOURS ORAL 11/28/18 21:00 12/18/18 20:59 12/10/18 09:07 Clonidine HCl (Catapres Tab) 0.1 mg Q2H PRN ORAL For High Blood Pressure 12/06/18 21:15 01/05/19 21:14 12/07/18 08:25 Dextrose (Dextrose 50%) 25 ml Q30M PRN IV Hypoglycemia 11/28/18 17:15 12/18/18 10:14 Dextrose (Dextrose 50%) 50 ml Q30M PRN IV Hypoglycemia 11/28/18 17:15 12/18/18 10:14 Docusate Sodium (Colace) 100 mg EVERY 12 HOURS ORAL 11/28/18 21:00 12/18/18 20:59 12/10/18 09:06 Escitalopram Oxalate (Lexapro) 15 mg DAILY ORAL 11/29/18 09:00 12/24/18 08:59 12/10/18 09:07 Famotidine (Pepcid) 20 mg QHS ORAL 11/30/18 21:00 12/30/18 20:59 12/09/18 22:34 Fentanyl (Duragesic) 1 patch Q72H TDERMAL 12/08/18 16:00 12/15/18 15:59 12/08/18 16:07 Levothyroxine Sodium (Synthroid) 25 mcg Q24H ORAL 11/29/18 06:30 12/19/18 06:29 12/10/18 06:36 Miscellaneous Medication (fentaNYL Destruction) 1 ea Q72H MISC 12/11/18 15:59 01/10/19 15:58 Morphine Sulfate (Morphine Sulfate) 2 mg Q4H PRN IM For Pain 12/08/18 19:00 12/15/18 18:59 12/10/18 10:43 Naloxone HCl (Narcan) 0.1 mg PRN IV Sedation scale 3 or 4 12/08/18 15:15 01/07/19 15:14 Nitroglycerin (Ntg) 0.4 mg Q5M PRN SL Prn Chest Pain 11/28/18 17:05 12/18/18 10:14 12/09/18 09:32 Ondansetron HCl (Zofran ODT) 4 mg Q4H PRN ORAL Nausea & Vomiting 12/07/18 10:00 01/06/19 09:59 12/09/18 14:55 Pantoprazole (Protonix) 40 mg DAILY ORAL 11/29/18 09:00 12/19/18 08:59 12/10/18 09:07 Polyethylene Glycol (Miralax) 17 gm DAILYPRN PRN ORAL Constipation 11/28/18 17:04 12/28/18 17:03 12/02/18 09:01 Mary Jo Lyn OUTBOARD TECHNICIAN Dec 10, 2018 13:02
--- NOTE | 2018-12-10 16:08 | Cardiac Electrophysiology PN ---
Assessment/Plan Assessment/Plan 1. Atypical chest pain and hx of CABG. Likely due to severe anemia. Ruled out [place]. Nuclear stress test cancelled for severe anemia. Reschedule after pancytopenia is resolved. Can be done as out patient. On Lipitor and Coreg. Off Aspirin and Plavix for anemia and thrombocytopenia 2. Cardiomyopathy. EF now 55%. On Coreg 12.5 mg bid. Off Lisinopril and Lasix 3. Status post [place] atrial biventricular defibrillator. Interrogated and showed Nl Fx 4. Severe anemia, S/P PRBC. FU GI. 5. Pancytopenia with Platelet count of 17. Off Aspirin and PLavix S/P platelet transfusion. S/P BM biopsy 11/29/18. S/P PRBC Bone marrow bipsy/aspiration concerning for LEUKEMIA with 8.7% myeloblasts, Follow up for chemo by Dr Dayami CORTEZ RN Subjective Subjective Is depressed. No CP or SOB.Off tele. Objective Last 24 Hour Vital Signs Date Time Temp Pulse Resp B/P (MAP) Pulse Ox O2 Delivery O2 Flow Rate FiO2 12/10/18 12:00 97.7 60 20 111/52 (71) 100 12/10/18 11:13 97.9 12/10/18 10:31 67 22 98 Nasal Cannula 4.0 36 12/10/18 10:20 Nasal Cannula 4.0 36 12/10/18 10:20 62 20 Nasal Cannula 4.0 36 12/10/18 10:18 62 20 98 Nasal Cannula 4.0 36 12/10/18 09:07 64 122/50 12/10/18 09:00 Nasal Cannula 2.0 12/10/18 08:00 97.9 64 18 122/50 (74) 96 12/10/18 04:00 97.8 63 18 117/67 (84) 100 12/10/18 00:00 97.2 63 20 125/57 (79) 100 12/09/18 23:48 100 Nasal Cannula 3.0 32 12/09/18 23:48 60 20 Nasal Cannula 3.0 32 12/09/18 23:48 Nasal Cannula 3.0 32 12/09/18 21:33 63 118/67 12/09/18 21:00 Nasal Cannula 2.0 12/09/18 20:00 97.7 63 20 118/67 (84) 100 Intake and Output 12/09/18 12/10/18 19:00 07:00 Intake Total 360 ml Output Total 450 ml Balance 360 ml -450 ml Intake Oral 360 ml Output Urine Total 450 ml # Voids 5 2 Laboratory Tests Test 12/10/18 05:35 White Blood Count 6.7 K/UL (4.8-10.8) Red Blood Count 3.70 M/UL (4.70-6.10) L Hemoglobin 9.2 G/DL (14.2-18.0) L Hematocrit 29.0 % (42.0-52.0) L Mean Corpuscular Volume 79 FL (80-99) L Mean Corpuscular Hemoglobin 24.9 PG (27.0-31.0) L Mean Corpuscular Hemoglobin Concent 31.7 G/DL (32.0-36.0) L Red Cell Distribution Width 23.5 % (11.6-14.8) H Platelet Count 70 K/UL (150-450) L Mean Platelet Volume 8.1 FL (6.5-10.1) Neutrophils (%) (Auto) % (45.0-75.0) Lymphocytes (%) (Auto) % (20.0-45.0) Monocytes (%) (Auto) % (1.0-10.0) Eosinophils (%) (Auto) % (0.0-3.0) Basophils (%) (Auto) % (0.0-2.0) Differential Total Cells Counted 100 Neutrophils % (Manual) 53 % (45-75) Lymphocytes % (Manual) 26 % (20-45) Monocytes % (Manual) 6 % (1-10) Eosinophils % (Manual) 0 % (0-3) Basophils % (Manual) 0 % (0-2) Myelocytes % 1 % (0-0) H Band Neutrophils 14 % (0-8) H Platelet Estimate Decreased L Platelet Morphology See comment Giant Platelets Occasional Hypochromasia 2+ Anisocytosis 3+ Microcytosis 1+ [place] Cells 2+ Sodium Level 133 MMOL/L (136-145) L Potassium Level 4.0 MMOL/L (3.5-5.1) Chloride Level 98 MMOL/L (98-107) Carbon Dioxide Level 31 MMOL/L (21-32) Anion Gap 5 mmol/L (5-15) Blood Urea Nitrogen 22 mg/dL (7-18) H Creatinine 0.8 MG/DL (0.55-1.30) Estimat Glomerular Filtration Rate mL/min (>60) Glucose Level 96 MG/DL (74-106) Calcium Level 8.6 MG/DL (8.5-10.1) Objective HEAD AND NECK: No JVD. LUNGS: Coarse rhonchi. CARDIOVASCULAR: Regular S1 and S2 with no gallop or murmur. Sternotomy is intact. Defibrillator in left subclavian. ABDOMEN: Soft. EXTREMITIES: 1+ pitting edema. Satinder Gee MD Dec 10, 2018 16:08
--- NOTE | 2018-12-10 17:49 | Internal Med Progress Note ---
Subjective Date of Service: Dec 10, 2018 Physician Name Nikhil West Attending Physician Abdias Hunter MD Current Medications Medications (Trade) Dose Ordered Sig/Scout Route PRN Reason Start Time Stop Time Status Last Admin Dose Admin Acetaminophen (Tylenol) 650 mg Q4H PRN ORAL Mild Pain (Pain Scale 1-3) 11/28/18 17:02 12/18/18 17:01 12/04/18 02:16 Acetaminophen (Tylenol) 650 mg Q4H PRN ORAL fever 11/28/18 17:02 12/18/18 17:01 Acetaminophen (Tylenol) 650 mg Q4H PRN RECTAL Mild Pain (Pain Scale 1-3) 11/28/18 17:02 12/18/18 17:01 Albuterol/ Ipratropium (Albuterol/ Ipratropium) 3 ml Q6H PRN HHN sob 12/08/18 17:45 12/13/18 17:44 12/10/18 10:18 Atorvastatin Calcium (Lipitor) 40 mg BEDTIME ORAL 11/28/18 21:00 12/18/18 20:59 12/09/18 21:34 Bisacodyl (Dulcolax) 10 mg DAILYPRN PRN RECTAL Constipation 11/28/18 17:02 12/28/18 17:01 Carvedilol (Coreg) 12.5 mg EVERY 12 HOURS ORAL 11/28/18 21:00 12/18/18 20:59 12/10/18 09:07 Clonidine HCl (Catapres Tab) 0.1 mg Q2H PRN ORAL For High Blood Pressure 12/06/18 21:15 01/05/19 21:14 12/07/18 08:25 Dextrose (Dextrose 50%) 25 ml Q30M PRN IV Hypoglycemia 11/28/18 17:15 12/18/18 10:14 Dextrose (Dextrose 50%) 50 ml Q30M PRN IV Hypoglycemia 11/28/18 17:15 12/18/18 10:14 Docusate Sodium (Colace) 100 mg EVERY 12 HOURS ORAL 11/28/18 21:00 12/18/18 20:59 12/10/18 09:06 Escitalopram Oxalate (Lexapro) 15 mg DAILY ORAL 11/29/18 09:00 12/24/18 08:59 12/10/18 09:07 Famotidine (Pepcid) 20 mg QHS ORAL 11/30/18 21:00 12/30/18 20:59 12/09/18 22:34 Fentanyl (Duragesic) 1 patch Q72H TDERMAL 12/08/18 16:00 12/15/18 15:59 12/08/18 16:07 Levothyroxine Sodium (Synthroid) 25 mcg Q24H ORAL 11/29/18 06:30 12/19/18 06:29 12/10/18 06:36 Miscellaneous Medication (fentaNYL Destruction) 1 ea Q72H MISC 12/11/18 15:59 01/10/19 15:58 Morphine Sulfate (Morphine Sulfate) 2 mg Q4H PRN IM For Pain 12/08/18 19:00 12/15/18 18:59 12/10/18 10:43 Naloxone HCl (Narcan) 0.1 mg PRN IV Sedation scale 3 or 4 12/08/18 15:15 01/07/19 15:14 Nitroglycerin (Ntg) 0.4 mg Q5M PRN SL Prn Chest Pain 11/28/18 17:05 12/18/18 10:14 12/09/18 09:32 Ondansetron HCl (Zofran ODT) 4 mg Q4H PRN ORAL Nausea & Vomiting 12/07/18 10:00 01/06/19 09:59 12/09/18 14:55 Pantoprazole (Protonix) 40 mg DAILY ORAL 11/29/18 09:00 12/19/18 08:59 12/10/18 09:07 Polyethylene Glycol (Miralax) 17 gm DAILYPRN PRN ORAL Constipation 11/28/18 17:04 12/28/18 17:03 12/02/18 09:01 Allergies: Coded Allergies: No Known Allergies (Verified , 09/12/10) ROS Limited/Unobtainable: No Constitutional: Reports: no symptoms HEENT: Reports: no symptoms Cardiovascular: Reports: no symptoms Respiratory: Reports: no symptoms Gastrointestinal/Abdominal: Reports: no symptoms Genitourinary: Reports: no symptoms Neurologic/Psychiatric: Reports: no symptoms Subjective 78 YO M admitted with chest pain. Now pancytopenia and UTI. Cover for Int Med- Dr Hunter. Objective Last Vital Signs Date Time Temp Pulse Resp B/P (MAP) Pulse Ox O2 Delivery O2 Flow Rate FiO2 12/10/18 16:00 98.6 76 17 130/85 (100) 95 12/10/18 10:31 Nasal Cannula 4.0 36 Laboratory Tests Test 12/10/18 05:35 White Blood Count 6.7 K/UL (4.8-10.8) Red Blood Count 3.70 M/UL (4.70-6.10) L Hemoglobin 9.2 G/DL (14.2-18.0) L Hematocrit 29.0 % (42.0-52.0) L Mean Corpuscular Volume 79 FL (80-99) L Mean Corpuscular Hemoglobin 24.9 PG (27.0-31.0) L Mean Corpuscular Hemoglobin Concent 31.7 G/DL (32.0-36.0) L Red Cell Distribution Width 23.5 % (11.6-14.8) H Platelet Count 70 K/UL (150-450) L Mean Platelet Volume 8.1 FL (6.5-10.1) Neutrophils (%) (Auto) % (45.0-75.0) Lymphocytes (%) (Auto) % (20.0-45.0) Monocytes (%) (Auto) % (1.0-10.0) Eosinophils (%) (Auto) % (0.0-3.0) Basophils (%) (Auto) % (0.0-2.0) Differential Total Cells Counted 100 Neutrophils % (Manual) 53 % (45-75) Lymphocytes % (Manual) 26 % (20-45) Monocytes % (Manual) 6 % (1-10) Eosinophils % (Manual) 0 % (0-3) Basophils % (Manual) 0 % (0-2) Myelocytes % 1 % (0-0) H Band Neutrophils 14 % (0-8) H Platelet Estimate Decreased L Platelet Morphology See comment Giant Platelets Occasional Hypochromasia 2+ Anisocytosis 3+ Microcytosis 1+ Agatha Cells 2+ Sodium Level 133 MMOL/L (136-145) L Potassium Level 4.0 MMOL/L (3.5-5.1) Chloride Level 98 MMOL/L (98-107) Carbon Dioxide Level 31 MMOL/L (21-32) Anion Gap 5 mmol/L (5-15) Blood Urea Nitrogen 22 mg/dL (7-18) H Creatinine 0.8 MG/DL (0.55-1.30) Estimat Glomerular Filtration Rate mL/min (>60) Glucose Level 96 MG/DL (74-106) Calcium Level 8.6 MG/DL (8.5-10.1) Intake and Output 12/09/18 12/10/18 19:00 07:00 Intake Total 360 ml Output Total 450 ml Balance 360 ml -450 ml Intake Oral 360 ml Output Urine Total 450 ml # Voids 5 2 Objective PHYSICAL EXAMINATION: GENERAL: The patient awake, responsive, no acute distress. HEAD AND NECK: Pupils are equal and reactive to light. Extraocular movements are intact. Neck was supple. No JVD LUNGS: Good air entry. No wheeze or rales. HEART: S1, S2. Distant heart sounds. No murmur or gallops. Pacemaker in left-sided chest wall. ABDOMEN: Soft, nondistended, nontender. EXTREMITIES: No cyanosis, clubbing, edema. Varicose veins, bilateral lower extremities. NEUROLOGIC: Cranial nerves II through XII grossly intact. Motor is 5/5 in all extremities. Gait is intact. RECTAL: Refused and deferred. GENITOURINARY: Refused and deferred. PSYCHIATRIC: Mood and affect is depressed. Assessment/Plan Assessment/Plan ASSESSMENT: 1. Chest pain, possible acute coronary syndrome. 2. Hypertension. 3. Dyslipidemia. 4. Congestive heart failure. 5. Coronary artery disease. 6. Sick sinus syndrome, status pacemaker. 7. UTI. 8. Pancytopenia; S/P transfusion 4 units PRBC total-Severe anemia, Thrombocytopenia and leukopenia-?leukemia? see onc note. PLAN: Admit the patient to telemetry. Discussed case with Dr. Gee from Cardiology Electrophysiology. Await cardiac nuclear stress test-outpatient Dr. Luong, Pulmonary Critical Care. Urine cult=E. Coli. Continue Rocephin. DVT prophylaxis, heparin subcutaneous. Code status, Full Code. The patient is expected to be in the hospital greater than 2 days Discharge paln: [facility] S/P transfusion 2 units PRBC on 11/19/18 See Hematology consult-?acute myelocytic leukemia? Discharge to [facility] Nikhil West MD Dec 10, 2018 17:49
[2018-12-10] MEDS: Atorvastatin 20mg tab ORAL SCH (20:26)
[2018-12-11] VITALS: BP 138/69
[2018-12-11 04:00] VITALS: BP 108/63
[2018-12-11] MEDS: Morphine Sulfate 2mg/ml Inj(IV/IM USE ONLY) IM PRN ×5 (04:00→20:13)
[2018-12-11] MEDS: Levothyroxine 25mcg tab ORAL SCH (06:35)
[2018-12-11 08:00] VITALS: BP 126/76
[2018-12-11] MEDS: Albuterol/Ipratropium 3ml neb HHN PRN (08:01)
--- NOTE | 2018-12-11 08:29 | Pulmonology Progress Note ---
Assessment/Plan Assessment/Plan ASSESSMENT. atypical CP, likely due to severe anemia HTN CHF CAD with hx of CABG Severe pulmonary HTN AICD,s/p interrogation Hx of CM, ( now stable EF) Dyslipidemia E. coli UTI. 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 s/p plateletpheresis transfusion HIV nonreactive, hep panel negative s/p bone marrow biopsy, likely early leukemia vs myelodysplasia as per heme urine culture+ E. coli , s/p Rx bowel regimen outpt Rx for hep C as per Gi recs s/p EGD with findings of gastritis, biopsy - no H pylori, no dysplasia, metaplasia supportive care pain management psychiatric medication regimen as per psychiatrist case discussed and evaluated by supervising physician Subjective Allergies: Coded Allergies: No Known Allergies (Verified , 09/12/10) Subjective on O2 via NC pulse ox stable no SOB denies chest pain, palpitations Objective Last 24 Hour Vital Signs Date Time Temp Pulse Resp B/P (MAP) Pulse Ox O2 Delivery O2 Flow Rate FiO2 12/11/18 08:02 66 23 99 Nasal Cannula 4.0 36 12/11/18 08:00 66 23 Nasal Cannula 2.0 28 12/11/18 08:00 Nasal Cannula 2.0 28 12/11/18 04:00 98.0 65 18 108/63 (78) 100 12/11/18 00:00 98.0 61 17 138/69 (92) 100 12/10/18 21:32 61 16 Nasal Cannula 2.0 28 12/10/18 21:32 Nasal Cannula 2.0 28 12/10/18 21:15 63 113/56 (75) 12/10/18 21:00 Nasal Cannula 2.0 12/10/18 20:00 60 96/45 12/10/18 20:00 97.7 60 17 96/45 (62) 98 12/10/18 18:36 98.6 12/10/18 16:00 98.6 76 17 130/85 (100) 95 12/10/18 12:00 97.7 60 20 111/52 (71) 100 12/10/18 10:31 67 22 98 Nasal Cannula 4.0 36 12/10/18 10:20 Nasal Cannula 4.0 36 12/10/18 10:20 62 20 Nasal Cannula 4.0 36 12/10/18 10:18 62 20 98 Nasal Cannula 4.0 36 12/10/18 09:07 64 122/50 12/10/18 09:00 Nasal Cannula 2.0 Intake and Output 12/10/18 12/11/18 18:59 06:59 Intake Total 950 ml 240 ml Balance 950 ml 240 ml Intake Oral 240 ml Other 950 ml # Voids 2 Objective General Appearance: no acute distress, awake, alert, pale HEENT: normocephalic, atraumatic, anicteric, mucous membranes moist Respiratory/Chest: lungs clear, no respiratory distress, no accessory muscle use Cardiovascular: normal rate , , no JVD Abdomen: normal bowel sounds, soft, non tender, non distended Extremities: no edema Neurologic/Psychiatric: alert, oriented x 3, responsive Musculoskeletal: normal muscle bulk Current Medications Medications (Trade) Dose Ordered Sig/Scout Route PRN Reason Start Time Stop Time Status Last Admin Dose Admin Acetaminophen (Tylenol) 650 mg Q4H PRN ORAL Mild Pain (Pain Scale 1-3) 11/28/18 17:02 12/18/18 17:01 12/04/18 02:16 Acetaminophen (Tylenol) 650 mg Q4H PRN ORAL fever 11/28/18 17:02 12/18/18 17:01 Acetaminophen (Tylenol) 650 mg Q4H PRN RECTAL Mild Pain (Pain Scale 1-3) 11/28/18 17:02 12/18/18 17:01 Albuterol/ Ipratropium (Albuterol/ Ipratropium) 3 ml Q6H PRN HHN sob 12/08/18 17:45 12/13/18 17:44 12/11/18 08:01 Atorvastatin Calcium (Lipitor) 40 mg BEDTIME ORAL 11/28/18 21:00 12/18/18 20:59 12/10/18 20:26 Bisacodyl (Dulcolax) 10 mg DAILYPRN PRN RECTAL Constipation 11/28/18 17:02 12/28/18 17:01 Carvedilol (Coreg) 12.5 mg EVERY 12 HOURS ORAL 11/28/18 21:00 12/18/18 20:59 12/10/18 09:07 Clonidine HCl (Catapres Tab) 0.1 mg Q2H PRN ORAL For High Blood Pressure 12/06/18 21:15 01/05/19 21:14 12/07/18 08:25 Dextrose (Dextrose 50%) 25 ml Q30M PRN IV Hypoglycemia 11/28/18 17:15 12/18/18 10:14 Dextrose (Dextrose 50%) 50 ml Q30M PRN IV Hypoglycemia 11/28/18 17:15 12/18/18 10:14 Docusate Sodium (Colace) 100 mg EVERY 12 HOURS ORAL 11/28/18 21:00 12/18/18 20:59 12/10/18 20:26 Escitalopram Oxalate (Lexapro) 15 mg DAILY ORAL 11/29/18 09:00 12/24/18 08:59 12/10/18 09:07 Famotidine (Pepcid) 20 mg QHS ORAL 11/30/18 21:00 12/30/18 20:59 12/10/18 20:26 Fentanyl (Duragesic) 1 patch Q72H TDERMAL 12/08/18 16:00 12/15/18 15:59 12/08/18 16:07 Levothyroxine Sodium (Synthroid) 25 mcg Q24H ORAL 11/29/18 06:30 12/19/18 06:29 12/11/18 06:35 Miscellaneous Medication (fentaNYL Destruction) 1 ea Q72H MISC 12/11/18 15:59 01/10/19 15:58 Morphine Sulfate (Morphine Sulfate) 2 mg Q4H PRN IM For Pain 12/08/18 19:00 12/15/18 18:59 12/11/18 07:59 Naloxone HCl (Narcan) 0.1 mg PRN IV Sedation scale 3 or 4 12/08/18 15:15 01/07/19 15:14 Nitroglycerin (Ntg) 0.4 mg Q5M PRN SL Prn Chest Pain 11/28/18 17:05 12/18/18 10:14 12/09/18 09:32 Ondansetron HCl (Zofran ODT) 4 mg Q4H PRN ORAL Nausea & Vomiting 12/07/18 10:00 01/06/19 09:59 12/11/18 06:35 Pantoprazole (Protonix) 40 mg DAILY ORAL 11/29/18 09:00 12/19/18 08:59 12/10/18 09:07 Polyethylene Glycol (Miralax) 17 gm DAILYPRN PRN ORAL Constipation 11/28/18 17:04 12/28/18 17:03 12/02/18 09:01 Mary Jo Lyn [employer]ICE Dec 11, 2018 08:29
[2018-12-11] MEDS: Docusate 100mg cap ORAL SCH ×2 (09:03→20:14)
[2018-12-11] MEDS: Carvedilol 12.5mg tab ORAL SCH ×2 (09:04→20:08)
[2018-12-11 12:00] VITALS: BP 112/55
[2018-12-11] MEDS: Nitroglycerin Subl 0.4mg tab SL PRN (14:18)
--- NOTE | 2018-12-11 15:40 | Internal Med Progress Note ---
Subjective Date of Service: Dec 11, 2018 Physician Name Nikhil West Attending Physician Abdias Hunter MD Current Medications Medications (Trade) Dose Ordered Sig/Scout Route PRN Reason Start Time Stop Time Status Last Admin Dose Admin Acetaminophen (Tylenol) 650 mg Q4H PRN ORAL Mild Pain (Pain Scale 1-3) 11/28/18 17:02 12/18/18 17:01 12/04/18 02:16 Acetaminophen (Tylenol) 650 mg Q4H PRN ORAL fever 11/28/18 17:02 12/18/18 17:01 Acetaminophen (Tylenol) 650 mg Q4H PRN RECTAL Mild Pain (Pain Scale 1-3) 11/28/18 17:02 12/18/18 17:01 Albuterol/ Ipratropium (Albuterol/ Ipratropium) 3 ml Q6H PRN HHN sob 12/11/18 11:12 12/16/18 11:11 Atorvastatin Calcium (Lipitor) 40 mg BEDTIME ORAL 11/28/18 21:00 12/18/18 20:59 12/10/18 20:26 Bisacodyl (Dulcolax) 10 mg DAILYPRN PRN RECTAL Constipation 11/28/18 17:02 12/28/18 17:01 Carvedilol (Coreg) 12.5 mg EVERY 12 HOURS ORAL 11/28/18 21:00 12/18/18 20:59 12/11/18 09:04 Clonidine HCl (Catapres Tab) 0.1 mg Q2H PRN ORAL For High Blood Pressure 12/06/18 21:15 01/05/19 21:14 12/07/18 08:25 Dextrose (Dextrose 50%) 25 ml Q30M PRN IV Hypoglycemia 11/28/18 17:15 12/18/18 10:14 Dextrose (Dextrose 50%) 50 ml Q30M PRN IV Hypoglycemia 11/28/18 17:15 12/18/18 10:14 Docusate Sodium (Colace) 100 mg EVERY 12 HOURS ORAL 11/28/18 21:00 12/18/18 20:59 12/11/18 09:03 Escitalopram Oxalate (Lexapro) 15 mg DAILY ORAL 11/29/18 09:00 12/24/18 08:59 12/11/18 09:03 Famotidine (Pepcid) 20 mg QHS ORAL 11/30/18 21:00 12/30/18 20:59 12/10/18 20:26 Fentanyl (Duragesic) 1 patch Q72H TDERMAL 12/08/18 16:00 12/15/18 15:59 12/08/18 16:07 Levothyroxine Sodium (Synthroid) 25 mcg Q24H ORAL 11/29/18 06:30 12/19/18 06:29 12/11/18 06:35 Miscellaneous Medication (fentaNYL Destruction) 1 ea Q72H MISC 12/11/18 15:59 01/10/19 15:58 Morphine Sulfate (Morphine Sulfate) 2 mg Q4H PRN IM For Pain 12/08/18 19:00 12/15/18 18:59 12/11/18 12:01 Naloxone HCl (Narcan) 0.1 mg PRN IV Sedation scale 3 or 4 12/08/18 15:15 01/07/19 15:14 Nitroglycerin (Ntg) 0.4 mg Q5M PRN SL Prn Chest Pain 11/28/18 17:05 12/18/18 10:14 12/11/18 14:18 Ondansetron HCl (Zofran ODT) 4 mg Q4H PRN ORAL Nausea & Vomiting 12/07/18 10:00 01/06/19 09:59 12/11/18 06:35 Pantoprazole (Protonix) 40 mg DAILY ORAL 11/29/18 09:00 12/19/18 08:59 12/11/18 09:03 Polyethylene Glycol (Miralax) 17 gm DAILYPRN PRN ORAL Constipation 11/28/18 17:04 12/28/18 17:03 12/02/18 09:01 Allergies: Coded Allergies: No Known Allergies (Verified , 09/12/10) Constitutional: Reports: no symptoms HEENT: Reports: no symptoms Cardiovascular: Reports: no symptoms Respiratory: Reports: no symptoms Gastrointestinal/Abdominal: Reports: no symptoms Genitourinary: Reports: no symptoms Neurologic/Psychiatric: Reports: no symptoms Subjective 78 YO M admitted with chest pain. Now pancytopenia and UTI. Cover for Latesha Hunter. Objective Last Vital Signs Date Time Temp Pulse Resp B/P (MAP) Pulse Ox O2 Delivery O2 Flow Rate FiO2 3/10/19 14:18 122/65 12/11/18 12:00 99.7 62 18 99 12/11/18 09:00 Nasal Cannula 2.0 12/11/18 08:15 28 Intake and Output 12/10/18 12/11/18 19:00 07:00 Intake Total 950 ml 240 ml Balance 950 ml 240 ml Intake Oral 240 ml Other 950 ml # Voids 2 Objective PHYSICAL EXAMINATION: GENERAL: The patient awake, responsive, no acute distress. HEAD AND NECK: Pupils are equal and reactive to light. Extraocular movements are intact. Neck was supple. No JVD LUNGS: Good air entry. No wheeze or rales. HEART: S1, S2. Distant heart sounds. No murmur or gallops. Pacemaker in left-sided chest wall. ABDOMEN: Soft, nondistended, nontender. EXTREMITIES: No cyanosis, clubbing, edema. Varicose veins, bilateral lower extremities. NEUROLOGIC: Cranial nerves II through XII grossly intact. Motor is 5/5 in all extremities. Gait is intact. RECTAL: Refused and deferred. GENITOURINARY: Refused and deferred. PSYCHIATRIC: Mood and affect is depressed. Assessment/Plan Assessment/Plan ASSESSMENT: 1. Chest pain, possible acute coronary syndrome. 2. Hypertension. 3. Dyslipidemia. 4. Congestive heart failure. 5. Coronary artery disease. 6. Sick sinus syndrome, status pacemaker. 7. UTI. 8. Pancytopenia; S/P transfusion 4 units PRBC total-Severe anemia, Thrombocytopenia and leukopenia-?leukemia? see onc note. PLAN: Admit the patient to telemetry. Discussed case with Dr. Gee from Cardiology Electrophysiology. Await cardiac nuclear stress test-outpatient Dr. Luong, Pulmonary Critical Care. Urine cult=E. Coli. Continue Rocephin. DVT prophylaxis, heparin subcutaneous. Code status, Full Code. The patient is expected to be in the hospital greater than 2 days Discharge paln: [facility] S/P transfusion 2 units PRBC on 11/19/18 See Hematology consult-?acute myelocytic leukemia? Discharge to [facility] Nikhil Wset MD Dec 11, 2018 15:40
[2018-12-11] MEDS: fentaNYL Destruction MISC SCH (15:50)
[2018-12-11 16:00] VITALS: BP 106/54
[2018-12-11 20:00] VITALS: BP 101/54
[2018-12-11] MEDS: Atorvastatin 20mg tab ORAL SCH (20:13)
--- NOTE | 2018-12-11 21:51 | General Progress Note ---
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 --> Hep panel and HIV negative, hep C++++ --> US abd to evaluate for cirrhosis and hsm reviewed --> Peripheral smear ordered to evaluate for blasts /schistocytes --> abx and other meds have been reviewed --> ok for ppx if plt >50k w/ either heparin or lovenox --> Transfuse if Plt < 20k and fever, or if Plt < 10k without fever --->Plt trend 70--> # Anemia of chronic disease, some minor hemolysis is noted --> Anemia workup has been reviewed,bertha test is negative, retic reviewed --> Hgb goal >7. Transfuse prn. --> Epogen or iron at this time is not particularly indicated --> Medications have been reviewed --> Hgb trend: 8--> # Reticulocytosis with elevated bilirubin that is indirect --> reviewed direct and indirect bilis again, trend could have liver disease --> liver US shows no significant cirrhosis --> evaluate as needed with gi team, recs apprecaited #. Chest pain, possible acute coronary syndrome. --> cards recs appreciated as well as pulm --> stress test prn #. Hypertension. #. Dyslipidemia. #. Congestive heart failure. #. Coronary artery disease. #. Sick sinus syndrome, status pacemaker. #. Acute E. coli UTI. #. Hep C+++ needs op management The timing of this note does not necessarily reflect the time of the patient was seen. Greatly appreciate consultation! Subjective Constitutional: Denies: no symptoms, chills, diaphoresis, fever, malaise, weakness, other HEENT: Denies: no symptoms, eye pain, blurred vision, tearing, double vision, ear pain, ear discharge, nose pain, nose congestion, throat pain, throat swelling, mouth pain, mouth swelling, other Cardiovascular: Denies: no symptoms, chest pain, edema, irregular heart rate, lightheadedness, palpitations, syncope, other Respiratory: Denies: no symptoms, cough, orthopnea, shortness of breath, SOB with excertion, SOB at rest, sputum, stridor, wheezing, other Gastrointestinal/Abdominal: Denies: no symptoms, abdomen distended, abdominal pain, black stools, tarry stools, blood in stool, constipated, diarrhea, difficulty swallowing, nausea, poor appetite, poor fluid intake, rectal bleeding , vomiting, other Genitourinary: Denies: no symptoms, burning, discharge, frequency, flank pain, hematuria, incontinence, pain, urgency, other Neurologic/Psychiatric: Denies: no symptoms, anxiety, depressed, emotional problems, headache, numbness, paresthesia, pre-existing deficit, seizure, tingling, tremors, weakness, other Hematologic/Lymphatic: Denies: no symptoms, anemia, easy bleeding, easy bruising, other Allergies: Coded Allergies: No Known Allergies (Verified , 09/12/10) Subjective 11/27: no events to report, no f/c 11/28: seen by bedside, plt 65, plan for EGD and bone marrow biopsy tomorrow 11/29: BM biopsy today, no acute distress. 11/30: Had BM biopsy yesterday and now in reverse isolation. hgb 7.5, will transfuse as needed. 12/01: seen by bedside, plt remains low, awaiting bone marrow biopsy results. 12/02: No acute distress, no chest pain, no shortness of breath, wbc 2.7, hgb 7.3 , plt 50, will transfuse as needed. S/P BM biopsy 11/29/18, Results pending 12/04: bone marrow biopsy completed, and show myeloblasts, c/w mds/leukemia, requires close surveillance 12/05: hgb 6.9, Had blood transfusion today, plt up trending, no events 12/06: Seen by bedside, overall improved, still has complaint of chest pain, plt trending up 12/07: Given 1 unit prbc, continues to c/o chest pain, seen by cards 12/08: seen by bedside, complains of pain, plt 106, no events 12/09: awake, comfortable, plt trending down at 69, no events 12/11: awake, comfortable, on NC, plt remains low at 70. Objective Last 24 Hour Vital Signs Date Time Temp Pulse Resp B/P (MAP) Pulse Ox O2 Delivery O2 Flow Rate FiO2 12/11/18 16:00 98.4 63 19 106/54 (71) 100 12/11/18 14:18 122/65 12/11/18 12:00 99.7 62 18 112/55 (74) 99 12/11/18 09:04 77 138/89 12/11/18 09:00 Nasal Cannula 2.0 12/11/18 08:15 68 23 98 Nasal Cannula 2.0 28 12/11/18 08:02 66 23 99 Nasal Cannula 4.0 36 12/11/18 08:00 66 23 Nasal Cannula 2.0 28 12/11/18 08:00 Nasal Cannula 2.0 28 12/11/18 08:00 97.8 68 18 126/76 (93) 97 12/11/18 04:00 98.0 65 18 108/63 (78) 100 12/11/18 00:00 98.0 61 17 138/69 (92) 100 Intake and Output 12/10/18 12/11/18 19:00 07:00 Intake Total 950 ml 240 ml Balance 950 ml 240 ml Intake Oral 240 ml Other 950 ml # Voids 2 Height (Feet): 5 Height (Inches): 5.00 Weight (Pounds): 149 Objective General Appearance: well appearing, nad, alert Head: normocephalic, atraumatic Eyes: b/l eye PERRL, bilateral eye EOMI ENT: hearing grossly normal, normal pharynx Neck: full range of motion, supple, no meningismus Respiratory: chest non-tender, lungs clear, normal breath sounds, NC++ Cardiovascular: regular rate, rhythm, no murmur Gastrointestinal: normal bowel sounds, non tender, no mass, no organomegaly, no bruit, non-distended Musculoskeletal: back normal, normal range of motion Psychiatric: mood/affect normal Skin: warm/dry Jose Alberto España MD Dec 11, 2018 21:51
[2018-12-12] VITALS: BP 118/49
[2018-12-12] MEDS: Morphine Sulfate 2mg/ml Inj(IV/IM USE ONLY) IM PRN ×4 (00:52→17:00)
[2018-12-12 04:00] VITALS: BP 112/53
[2018-12-12] MEDS: Levothyroxine 25mcg tab ORAL SCH (05:31)
[2018-12-12 07:58] VITALS: BP 123/58
[2018-12-12] MEDS: Carvedilol 12.5mg tab ORAL SCH ×2 (08:11→20:29)
[2018-12-12] MEDS: Docusate 100mg cap ORAL SCH ×2 (09:00→20:29)
--- NOTE | 2018-12-12 11:29 | GI Progress Note ---
Assessment/Plan Problems: (1) History of CVA (cerebrovascular accident) ICD Codes: Z86.73 - Personal history of transient ischemic attack (TIA), and cerebral infarction without residual deficits SNOMED: 734658697 (2) Severe anemia ICD Codes: D64.9 - Anemia, unspecified SNOMED: 681411893 (3) Abdominal pain ICD Codes: R10.9 - Unspecified abdominal pain SNOMED: 46214820 (4) GERD (gastroesophageal reflux disease) ICD Codes: K21.9 - Gastro-esophageal reflux disease without esophagitis SNOMED: 001093438 Status: stable Status Narrative Discussed with Dr. Mcguire. Assessment/Plan SUMMARY OF FINDINGS: 1. Gastritis. 2. A 6 cm hiatal hernia. Refusing a.m. lab draws RECOMMENDATIONS: Follow up biopsy results and treat accordingly. BM biopsy>> leukemia>> fu oncology monitor H&H, prn transfusions. OB stool uncollected bowel regime ppi, H2B qhs Zofran as needed fu labs Outpatient hep C treatment dc planning The patient was seen and examined at bedside and all new and available data was reviewed in the patients chart. I agree with the above findings, impression and plan. (Patient seen earlier today. Signature stamp does not reflect patient encounter time.). - Richie Mcguire MD Subjective Subjective Complaint of chest pain Nausea Objective Last 24 Hour Vital Signs Date Time Temp Pulse Resp B/P (MAP) Pulse Ox O2 Delivery O2 Flow Rate FiO2 12/12/18 08:34 Nasal Cannula 2.0 12/12/18 08:11 66 123/58 12/12/18 07:58 98.0 66 18 123/58 (79) 100 12/12/18 04:00 98.0 61 18 112/53 (72) 100 12/12/18 00:00 98.5 61 17 118/49 (72) 97 12/11/18 21:22 60 16 Nasal Cannula 2.0 28 12/11/18 21:22 Nasal Cannula 2.0 28 12/11/18 21:22 97 Nasal Cannula 2.0 28 12/11/18 21:00 Nasal Cannula 2.0 12/11/18 20:00 98.6 63 18 101/54 (70) 99 12/11/18 16:00 98.4 63 19 106/54 (71) 100 12/11/18 14:18 122/65 12/11/18 12:00 99.7 62 18 112/55 (74) 99 Intake and Output 12/11/18 12/12/18 18:59 06:59 Intake Total 400 ml 240 ml Output Total 400 ml Balance 400 ml -160 ml Intake Oral 400 ml 240 ml Output Urine Total 400 ml # Voids 3 Height (Feet): 5 Height (Inches): 5.00 Weight (Pounds): 154 General Appearance: WD/WN, no apparent distress, alert Cardiovascular: normal rate Respiratory/Chest: normal breath sounds, no respiratory distress Abdominal Exam: normal bowel sounds, non tender, soft Extremities: normal range of motion, non-tender Jason Gray NP Dec 12, 2018 11:29
[2018-12-12 12:00] VITALS: BP 118/60
[2018-12-12 12:07] LABS: HEMATOCRIT 27.6 % (42.0-52.0); HEMOGLOBIN 8.7 G/DL (14.2-18.0); MEAN CORPUSCULAR VOLUME 76 FL (80-99); PLATELET COUNT 65 K/UL (150-450); RED BLOOD COUNT 3.61 M/UL (4.70-6.10); WHITE BLOOD COUNT 5.7 K/UL (4.8-10.8)
[2018-12-12 12:09] LABS: ANION GAP 2 mmol/L (5-15); BLOOD UREA NITROGEN 23 mg/dL (7-18); CALCIUM 8.3 MG/DL (8.5-10.1); CARBON DIOXIDE 32 MMOL/L (21-32); CHLORIDE 99 MMOL/L (98-107); CREATININE 0.9 MG/DL (0.55-1.30); POTASSIUM 4.2 MMOL/L (3.5-5.1); SODIUM 133 MMOL/L (136-145)
[2018-12-12 15:32] VITALS: BP 120/58
--- NOTE | 2018-12-12 16:12 | Pulmonology Progress Note ---
Assessment/Plan Problems: (1) Myeloblastic leukemia (2) Severe thrombocytopenia (3) ACS (acute coronary syndrome) (4) Cardiomyopathy (5) HTN (hypertension) (6) Pacemaker (7) Hypothyroidism (8) CAD (coronary artery disease) Assessment/Plan episodes on N/V increase fentNAYL PACH dc all oral analgesics and try Fentanyl Patch doing better early leukemia PLT stable check electrolytes awaiting bone marrow biopsy results. flow cytometry abnormal all reviewed symptomatic treatment dc planning Subjective ROS Limited/Unobtainable: No Interval Events: episodes of nausea Allergies: Coded Allergies: No Known Allergies (Verified , 09/12/10) Objective Last 24 Hour Vital Signs Date Time Temp Pulse Resp B/P (MAP) Pulse Ox O2 Delivery O2 Flow Rate FiO2 12/12/18 15:32 98.0 70 18 120/58 (78) 100 12/12/18 12:00 98.0 64 18 118/60 (79) 100 12/12/18 11:14 98.0 12/12/18 08:34 Nasal Cannula 2.0 12/12/18 08:11 66 123/58 12/12/18 07:58 98.0 66 18 123/58 (79) 100 12/12/18 04:00 98.0 61 18 112/53 (72) 100 12/12/18 00:00 98.5 61 17 118/49 (72) 97 12/11/18 21:22 60 16 Nasal Cannula 2.0 28 12/11/18 21:22 Nasal Cannula 2.0 28 12/11/18 21:22 97 Nasal Cannula 2.0 28 12/11/18 21:00 Nasal Cannula 2.0 12/11/18 20:00 98.6 63 18 101/54 (70) 99 Intake and Output 12/11/18 12/12/18 19:00 07:00 Intake Total 400 ml 240 ml Output Total 400 ml Balance 400 ml -160 ml Intake Oral 400 ml 240 ml Output Urine Total 400 ml # Voids 3 Objective General Appearance: cachetic Lines, tubes and drains: peripheral HEENT: normocephalic, atraumatic Neck: non-tender, normal alignment Respiratory/Chest: chest wall non-tender, lungs clear Breasts: no masses Cardiovascular/Chest: normal peripheral pulses, normal rate Abdomen: normal bowel sounds, non tender Genitourinary/Rectal: normal genital exam Extremities: normal range of motion Skin Exam: normal pigmentation 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 Laboratory Tests 12/12/18 11:45: White Blood Count 5.7, Red Blood Count 3.61L, Hemoglobin 8.7L, Hematocrit 27.6L , Mean Corpuscular Volume 76L, Mean Corpuscular Hemoglobin 24.0L, Mean Corpuscular Hemoglobin Concent 31.5L, Red Cell Distribution Width 24.0H, Platelet Count 65L, Mean Platelet Volume 7.1, Neutrophils (%) (Auto) , Lymphocytes (%) (Auto) , Monocytes (%) (Auto) , Eosinophils (%) (Auto) , Basophils (%) (Auto) , Differential Total Cells Counted 100, Neutrophils % ( Manual) 35L, Lymphocytes % (Manual) 46H, Monocytes % (Manual) 19H, Eosinophils % (Manual) 0, Basophils % (Manual) 0, Band Neutrophils 0, Reactive Lymphocytes Occasional, Platelet Estimate DecreasedL, Platelet Morphology , Giant Platelets 1+, Hypochromasia 2+, Anisocytosis 3+, Microcytosis 1+, Sodium Level 133L, Potassium Level 4.2, Chloride Level 99, Carbon Dioxide Level 32, Anion Gap 2L, Blood Urea Nitrogen 23H, Creatinine 0.9, Estimat Glomerular Filtration Rate , Glucose Level 112H, Calcium Level 8.3L Current Medications Medications (Trade) Dose Ordered Sig/Scout Route PRN Reason Start Time Stop Time Status Last Admin Dose Admin Acetaminophen (Tylenol) 650 mg Q4H PRN ORAL Mild Pain (Pain Scale 1-3) 11/28/18 17:02 12/18/18 17:01 12/04/18 02:16 Acetaminophen (Tylenol) 650 mg Q4H PRN ORAL fever 11/28/18 17:02 12/18/18 17:01 Acetaminophen (Tylenol) 650 mg Q4H PRN RECTAL Mild Pain (Pain Scale 1-3) 11/28/18 17:02 12/18/18 17:01 Albuterol/ Ipratropium (Albuterol/ Ipratropium) 3 ml Q6H PRN HHN sob 12/11/18 11:12 12/16/18 11:11 Atorvastatin Calcium (Lipitor) 40 mg BEDTIME ORAL 11/28/18 21:00 12/18/18 20:59 12/11/18 20:13 Bisacodyl (Dulcolax) 10 mg DAILYPRN PRN RECTAL Constipation 11/28/18 17:02 12/28/18 17:01 Carvedilol (Coreg) 12.5 mg EVERY 12 HOURS ORAL 11/28/18 21:00 12/18/18 20:59 12/12/18 08:11 Clonidine HCl (Catapres Tab) 0.1 mg Q2H PRN ORAL For High Blood Pressure 12/06/18 21:15 01/05/19 21:14 12/07/18 08:25 Dextrose (Dextrose 50%) 25 ml Q30M PRN IV Hypoglycemia 11/28/18 17:15 12/18/18 10:14 Dextrose (Dextrose 50%) 50 ml Q30M PRN IV Hypoglycemia 11/28/18 17:15 12/18/18 10:14 Docusate Sodium (Colace) 100 mg EVERY 12 HOURS ORAL 11/28/18 21:00 12/18/18 20:59 12/11/18 09:03 Escitalopram Oxalate (Lexapro) 15 mg DAILY ORAL 11/29/18 09:00 12/24/18 08:59 12/12/18 08:11 Famotidine (Pepcid) 20 mg QHS ORAL 11/30/18 21:00 12/30/18 20:59 12/11/18 20:13 Fentanyl (Duragesic) 1 patch Q72H TDERMAL 12/08/18 16:00 12/15/18 15:59 12/11/18 15:57 Levothyroxine Sodium (Synthroid) 25 mcg Q24H ORAL 11/29/18 06:30 12/19/18 06:29 12/12/18 05:31 Miscellaneous Medication (fentaNYL Destruction) 1 ea Q72H MISC 12/11/18 15:59 01/10/19 15:58 12/11/18 15:50 Morphine Sulfate (Morphine Sulfate) 2 mg Q4H PRN IM For Pain 12/08/18 19:00 12/15/18 18:59 12/12/18 10:44 Naloxone HCl (Narcan) 0.1 mg PRN IV Sedation scale 3 or 4 12/08/18 15:15 01/07/19 15:14 Nitroglycerin (Ntg) 0.4 mg Q5M PRN SL Prn Chest Pain 11/28/18 17:05 12/18/18 10:14 12/11/18 14:18 Ondansetron HCl (Zofran ODT) 4 mg Q4H PRN ORAL Nausea & Vomiting 12/07/18 10:00 01/06/19 09:59 12/12/18 14:21 Pantoprazole (Protonix) 40 mg DAILY ORAL 11/29/18 09:00 12/19/18 08:59 12/12/18 08:11 Polyethylene Glycol (Miralax) 17 gm DAILYPRN PRN ORAL Constipation 11/28/18 17:04 12/28/18 17:03 12/02/18 09:01 Chepe Luong MD Dec 12, 2018 16:12
--- NOTE | 2018-12-12 17:18 | General Progress Note ---
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 --> Hep panel and HIV negative, hep C++++ --> US abd to evaluate for cirrhosis and hsm reviewed --> Peripheral smear ordered to evaluate for blasts /schistocytes --> abx and other meds have been reviewed --> ok for ppx if plt >50k w/ either heparin or lovenox --> Transfuse if Plt < 20k and fever, or if Plt < 10k without fever --->Plt trend 70-->65 # Anemia of chronic disease, some minor hemolysis is noted --> Anemia workup has been reviewed,bertha test is negative, retic reviewed --> Hgb goal >7. Transfuse prn. --> Epogen or iron at this time is not particularly indicated --> Medications have been reviewed --> Hgb trend: 9-->8.7 # Reticulocytosis with elevated bilirubin that is indirect --> reviewed direct and indirect bilis again, trend could have liver disease --> liver US shows no significant cirrhosis --> evaluate as needed with gi team, recs apprecaited #. Chest pain, possible acute coronary syndrome. --> cards recs appreciated as well as pulm --> stress test prn #. Hypertension. #. Dyslipidemia. #. Congestive heart failure. #. Coronary artery disease. #. Sick sinus syndrome, status pacemaker. #. Acute E. coli UTI. #. Hep C+++ needs op management The timing of this note does not necessarily reflect the time of the patient was seen. Greatly appreciate consultation! Subjective Constitutional: Denies: no symptoms, chills, diaphoresis, fever, malaise, weakness, other HEENT: Denies: no symptoms, eye pain, blurred vision, tearing, double vision, ear pain, ear discharge, nose pain, nose congestion, throat pain, throat swelling, mouth pain, mouth swelling, other Cardiovascular: Denies: no symptoms, chest pain, edema, irregular heart rate, lightheadedness, palpitations, syncope, other Respiratory: Denies: no symptoms, cough, orthopnea, shortness of breath, SOB with excertion, SOB at rest, sputum, stridor, wheezing, other Gastrointestinal/Abdominal: Denies: no symptoms, abdomen distended, abdominal pain, black stools, tarry stools, blood in stool, constipated, diarrhea, difficulty swallowing, nausea, poor appetite, poor fluid intake, rectal bleeding , vomiting, other Genitourinary: Denies: no symptoms, burning, discharge, frequency, flank pain, hematuria, incontinence, pain, urgency, other Neurologic/Psychiatric: Denies: no symptoms, anxiety, depressed, emotional problems, headache, numbness, paresthesia, pre-existing deficit, seizure, tingling, tremors, weakness, other Endocrine: Denies: no symptoms, excessive sweating, flushing, intolerance to cold, intolerance to heat, increased hunger, increased thirst, increased urine, unexplained weight gain, unexplained weight loss, other Hematologic/Lymphatic: Denies: no symptoms, anemia, easy bleeding, easy bruising, other Allergies: Coded Allergies: No Known Allergies (Verified , 09/12/10) Subjective 11/27: no events to report, no f/c 11/28: seen by bedside, plt 65, plan for EGD and bone marrow biopsy tomorrow 11/29: BM biopsy today, no acute distress. 11/30: Had BM biopsy yesterday and now in reverse isolation. hgb 7.5, will transfuse as needed. 12/01: seen by bedside, plt remains low, awaiting bone marrow biopsy results. 12/02: No acute distress, no chest pain, no shortness of breath, wbc 2.7, hgb 7.3 , plt 50, will transfuse as needed. S/P BM biopsy 11/29/18, Results pending 12/04: bone marrow biopsy completed, and show myeloblasts, c/w mds/leukemia, requires close surveillance 12/05: hgb 6.9, Had blood transfusion today, plt up trending, no events 12/06: Seen by bedside, overall improved, still has complaint of chest pain, plt trending up 12/07: Given 1 unit prbc, continues to c/o chest pain, seen by cards 12/08: seen by bedside, complains of pain, plt 106, no events 12/09: awake, comfortable, plt trending down at 69, no events 12/11: awake, comfortable, on NC, plt remains low at 70. 12/12: awake, comfortable, plt 65, no events Objective Last 24 Hour Vital Signs Date Time Temp Pulse Resp B/P (MAP) Pulse Ox O2 Delivery O2 Flow Rate FiO2 12/12/18 15:32 98.0 70 18 120/58 (78) 100 12/12/18 12:00 98.0 64 18 118/60 (79) 100 12/12/18 11:14 98.0 12/12/18 08:34 Nasal Cannula 2.0 12/12/18 08:11 66 123/58 12/12/18 07:58 98.0 66 18 123/58 (79) 100 12/12/18 04:00 98.0 61 18 112/53 (72) 100 12/12/18 00:00 98.5 61 17 118/49 (72) 97 12/11/18 21:22 60 16 Nasal Cannula 2.0 28 12/11/18 21:22 Nasal Cannula 2.0 28 12/11/18 21:22 97 Nasal Cannula 2.0 28 12/11/18 21:00 Nasal Cannula 2.0 12/11/18 20:00 98.6 63 18 101/54 (70) 99 Intake and Output 12/11/18 12/12/18 19:00 07:00 Intake Total 400 ml 240 ml Output Total 400 ml Balance 400 ml -160 ml Intake Oral 400 ml 240 ml Output Urine Total 400 ml # Voids 3 Laboratory Tests 12/12/18 11:45: White Blood Count 5.7, Red Blood Count 3.61L, Hemoglobin 8.7L, Hematocrit 27.6L , Mean Corpuscular Volume 76L, Mean Corpuscular Hemoglobin 24.0L, Mean Corpuscular Hemoglobin Concent 31.5L, Red Cell Distribution Width 24.0H, Platelet Count 65L, Mean Platelet Volume 7.1, Neutrophils (%) (Auto) , Lymphocytes (%) (Auto) , Monocytes (%) (Auto) , Eosinophils (%) (Auto) , Basophils (%) (Auto) , Differential Total Cells Counted 100, Neutrophils % ( Manual) 35L, Lymphocytes % (Manual) 46H, Monocytes % (Manual) 19H, Eosinophils % (Manual) 0, Basophils % (Manual) 0, Band Neutrophils 0, Reactive Lymphocytes Occasional, Platelet Estimate DecreasedL, Platelet Morphology , Giant Platelets 1+, Hypochromasia 2+, Anisocytosis 3+, Microcytosis 1+, Sodium Level 133L, Potassium Level 4.2, Chloride Level 99, Carbon Dioxide Level 32, Anion Gap 2L, Blood Urea Nitrogen 23H, Creatinine 0.9, Estimat Glomerular Filtration Rate , Glucose Level 112H, Calcium Level 8.3L Height (Feet): 5 Height (Inches): 5.00 Weight (Pounds): 154 Objective General Appearance: well appearing, nad, alert Head: normocephalic, atraumatic Eyes: b/l eye PERRL, bilateral eye EOMI ENT: hearing grossly normal, normal pharynx Neck: full range of motion, supple, no meningismus Respiratory: chest non-tender, lungs clear, normal breath sounds, NC++ Cardiovascular: regular rate, rhythm, no murmur Gastrointestinal: normal bowel sounds, non tender, no mass, no organomegaly, no bruit, non-distended Musculoskeletal: back normal, normal range of motion Psychiatric: mood/affect normal Skin: warm/dry Jose Alberto España MD Dec 12, 2018 17:18
--- NOTE | 2018-12-12 18:24 | Cardiac Electrophysiology PN ---
Assessment/Plan Assessment/Plan 1. Atypical chest pain and hx of CABG. Likely due to severe anemia. Ruled out DE. Nuclear stress test cancelled for severe anemia. Reschedule after pancytopenia is resolved as out patient. On Lipitor and Coreg. Off Aspirin and Plavix for anemia and thrombocytopenia 2. Cardiomyopathy. EF now 55%. On Coreg 12.5 mg bid. Off Lisinopril and Lasix 3. Status post [facility] atrial biventricular defibrillator. Interrogated and showed Nl Fx 4. Severe anemia, S/P PRBC. FU GI. 5. Pancytopenia with Platelet count of 17. Off Aspirin and PLavix S/P platelet transfusion. S/P BM biopsy 11/29/18. S/P PRBC Bone marrow bipsy/aspiration concerning for LEUKEMIA with 8.7% myeloblasts, Follow up for chemo by Dr Dayami CORTEZ RN DC to [facility] pending Subjective Subjective Is depressed. No CP or SOB.Off tele.DC planning today Objective Last 24 Hour Vital Signs Date Time Temp Pulse Resp B/P (MAP) Pulse Ox O2 Delivery O2 Flow Rate FiO2 12/12/18 17:30 98.0 12/12/18 15:32 98.0 70 18 120/58 (78) 100 12/12/18 12:00 98.0 64 18 118/60 (79) 100 12/12/18 08:34 Nasal Cannula 2.0 12/12/18 08:11 66 123/58 12/12/18 07:58 98.0 66 18 123/58 (79) 100 12/12/18 04:00 98.0 61 18 112/53 (72) 100 12/12/18 00:00 98.5 61 17 118/49 (72) 97 12/11/18 21:22 60 16 Nasal Cannula 2.0 28 12/11/18 21:22 Nasal Cannula 2.0 28 12/11/18 21:22 97 Nasal Cannula 2.0 28 12/11/18 21:00 Nasal Cannula 2.0 12/11/18 20:00 98.6 63 18 101/54 (70) 99 Intake and Output 12/11/18 12/12/18 19:00 07:00 Intake Total 400 ml 240 ml Output Total 400 ml Balance 400 ml -160 ml Intake Oral 400 ml 240 ml Output Urine Total 400 ml # Voids 3 Laboratory Tests Test 12/12/18 11:45 White Blood Count 5.7 K/UL (4.8-10.8) Red Blood Count 3.61 M/UL (4.70-6.10) L Hemoglobin 8.7 G/DL (14.2-18.0) L Hematocrit 27.6 % (42.0-52.0) L Mean Corpuscular Volume 76 FL (80-99) L Mean Corpuscular Hemoglobin 24.0 PG (27.0-31.0) L Mean Corpuscular Hemoglobin Concent 31.5 G/DL (32.0-36.0) L Red Cell Distribution Width 24.0 % (11.6-14.8) H Platelet Count 65 K/UL (150-450) L Mean Platelet Volume 7.1 FL (6.5-10.1) Neutrophils (%) (Auto) % (45.0-75.0) Lymphocytes (%) (Auto) % (20.0-45.0) Monocytes (%) (Auto) % (1.0-10.0) Eosinophils (%) (Auto) % (0.0-3.0) Basophils (%) (Auto) % (0.0-2.0) Differential Total Cells Counted 100 Neutrophils % (Manual) 35 % (45-75) L Lymphocytes % (Manual) 46 % (20-45) H Monocytes % (Manual) 19 % (1-10) H Eosinophils % (Manual) 0 % (0-3) Basophils % (Manual) 0 % (0-2) Band Neutrophils 0 % (0-8) Reactive Lymphocytes Occasional Platelet Estimate Decreased L Platelet Morphology Giant Platelets 1+ Hypochromasia 2+ Anisocytosis 3+ Microcytosis 1+ Sodium Level 133 MMOL/L (136-145) L Potassium Level 4.2 MMOL/L (3.5-5.1) Chloride Level 99 MMOL/L (98-107) Carbon Dioxide Level 32 MMOL/L (21-32) Anion Gap 2 mmol/L (5-15) L Blood Urea Nitrogen 23 mg/dL (7-18) H Creatinine 0.9 MG/DL (0.55-1.30) Estimat Glomerular Filtration Rate mL/min (>60) Glucose Level 112 MG/DL (74-106) H Calcium Level 8.3 MG/DL (8.5-10.1) L Objective HEAD AND NECK: No JVD. LUNGS: Coarse rhonchi. CARDIOVASCULAR: Regular S1 and S2 with no gallop or murmur. Sternotomy is intact. Defibrillator in left subclavian. ABDOMEN: Soft. EXTREMITIES: 1+ pitting edema. Satinder Gee MD Dec 12, 2018 18:24
--- NOTE | 2018-12-12 19:51 | Internal Med Progress Note ---
Subjective Date of Service: Dec 12, 2018 Physician Name Nikhil West Attending Physician Abdias Hunter MD Current Medications Medications (Trade) Dose Ordered Sig/Scout Route PRN Reason Start Time Stop Time Status Last Admin Dose Admin Acetaminophen (Tylenol) 650 mg Q4H PRN ORAL Mild Pain (Pain Scale 1-3) 11/28/18 17:02 12/18/18 17:01 12/04/18 02:16 Acetaminophen (Tylenol) 650 mg Q4H PRN ORAL fever 11/28/18 17:02 12/18/18 17:01 Acetaminophen (Tylenol) 650 mg Q4H PRN RECTAL Mild Pain (Pain Scale 1-3) 11/28/18 17:02 12/18/18 17:01 Albuterol/ Ipratropium (Albuterol/ Ipratropium) 3 ml Q6H PRN HHN sob 12/11/18 11:12 12/16/18 11:11 Atorvastatin Calcium (Lipitor) 40 mg BEDTIME ORAL 11/28/18 21:00 12/18/18 20:59 12/11/18 20:13 Bisacodyl (Dulcolax) 10 mg DAILYPRN PRN RECTAL Constipation 11/28/18 17:02 12/28/18 17:01 Carvedilol (Coreg) 12.5 mg EVERY 12 HOURS ORAL 11/28/18 21:00 12/18/18 20:59 12/12/18 08:11 Clonidine HCl (Catapres Tab) 0.1 mg Q2H PRN ORAL For High Blood Pressure 12/06/18 21:15 01/05/19 21:14 12/07/18 08:25 Dextrose (Dextrose 50%) 25 ml Q30M PRN IV Hypoglycemia 11/28/18 17:15 12/18/18 10:14 Dextrose (Dextrose 50%) 50 ml Q30M PRN IV Hypoglycemia 11/28/18 17:15 12/18/18 10:14 Docusate Sodium (Colace) 100 mg EVERY 12 HOURS ORAL 11/28/18 21:00 12/18/18 20:59 12/11/18 09:03 Escitalopram Oxalate (Lexapro) 15 mg DAILY ORAL 11/29/18 09:00 12/24/18 08:59 12/12/18 08:11 Famotidine (Pepcid) 20 mg QHS ORAL 11/30/18 21:00 12/30/18 20:59 12/11/18 20:13 Fentanyl (Duragesic) 1 patch Q72H TDERMAL 12/08/18 16:00 12/15/18 15:59 12/11/18 15:57 Levothyroxine Sodium (Synthroid) 25 mcg Q24H ORAL 11/29/18 06:30 12/19/18 06:29 12/12/18 05:31 Miscellaneous Medication (fentaNYL Destruction) 1 ea Q72H MISC 12/11/18 15:59 01/10/19 15:58 12/11/18 15:50 Morphine Sulfate (Morphine Sulfate) 2 mg Q4H PRN IM For Pain 12/08/18 19:00 12/15/18 18:59 12/12/18 17:00 Naloxone HCl (Narcan) 0.1 mg PRN IV Sedation scale 3 or 4 12/08/18 15:15 01/07/19 15:14 Nitroglycerin (Ntg) 0.4 mg Q5M PRN SL Prn Chest Pain 11/28/18 17:05 12/18/18 10:14 12/11/18 14:18 Ondansetron HCl (Zofran ODT) 4 mg Q4H PRN ORAL Nausea & Vomiting 12/07/18 10:00 01/06/19 09:59 12/12/18 14:21 Pantoprazole (Protonix) 40 mg DAILY ORAL 11/29/18 09:00 12/19/18 08:59 12/12/18 08:11 Polyethylene Glycol (Miralax) 17 gm DAILYPRN PRN ORAL Constipation 11/28/18 17:04 12/28/18 17:03 12/02/18 09:01 Allergies: Coded Allergies: No Known Allergies (Verified , 09/12/10) ROS Limited/Unobtainable: No Constitutional: Reports: no symptoms HEENT: Reports: no symptoms Cardiovascular: Reports: no symptoms Respiratory: Reports: no symptoms Gastrointestinal/Abdominal: Reports: no symptoms Genitourinary: Reports: no symptoms Neurologic/Psychiatric: Reports: no symptoms Subjective 78 YO M admitted with chest pain. Now pancytopenia and UTI. Cover for Int Med- Dr Hunter. Objective Last Vital Signs Date Time Temp Pulse Resp B/P (MAP) Pulse Ox O2 Delivery O2 Flow Rate FiO2 12/12/18 17:30 98.0 12/12/18 15:32 70 18 120/58 (78) 100 12/12/18 08:34 Nasal Cannula 2.0 12/11/18 21:22 28 Laboratory Tests Test 12/12/18 11:45 White Blood Count 5.7 K/UL (4.8-10.8) Red Blood Count 3.61 M/UL (4.70-6.10) L Hemoglobin 8.7 G/DL (14.2-18.0) L Hematocrit 27.6 % (42.0-52.0) L Mean Corpuscular Volume 76 FL (80-99) L Mean Corpuscular Hemoglobin 24.0 PG (27.0-31.0) L Mean Corpuscular Hemoglobin Concent 31.5 G/DL (32.0-36.0) L Red Cell Distribution Width 24.0 % (11.6-14.8) H Platelet Count 65 K/UL (150-450) L Mean Platelet Volume 7.1 FL (6.5-10.1) Neutrophils (%) (Auto) % (45.0-75.0) Lymphocytes (%) (Auto) % (20.0-45.0) Monocytes (%) (Auto) % (1.0-10.0) Eosinophils (%) (Auto) % (0.0-3.0) Basophils (%) (Auto) % (0.0-2.0) Differential Total Cells Counted 100 Neutrophils % (Manual) 35 % (45-75) L Lymphocytes % (Manual) 46 % (20-45) H Monocytes % (Manual) 19 % (1-10) H Eosinophils % (Manual) 0 % (0-3) Basophils % (Manual) 0 % (0-2) Band Neutrophils 0 % (0-8) Reactive Lymphocytes Occasional Platelet Estimate Decreased L Platelet Morphology Giant Platelets 1+ Hypochromasia 2+ Anisocytosis 3+ Microcytosis 1+ Sodium Level 133 MMOL/L (136-145) L Potassium Level 4.2 MMOL/L (3.5-5.1) Chloride Level 99 MMOL/L (98-107) Carbon Dioxide Level 32 MMOL/L (21-32) Anion Gap 2 mmol/L (5-15) L Blood Urea Nitrogen 23 mg/dL (7-18) H Creatinine 0.9 MG/DL (0.55-1.30) Estimat Glomerular Filtration Rate mL/min (>60) Glucose Level 112 MG/DL (74-106) H Calcium Level 8.3 MG/DL (8.5-10.1) L Intake and Output 12/11/18 12/12/18 19:00 07:00 Intake Total 400 ml 240 ml Output Total 400 ml Balance 400 ml -160 ml Intake Oral 400 ml 240 ml Output Urine Total 400 ml # Voids 3 Objective PHYSICAL EXAMINATION: GENERAL: The patient awake, responsive, no acute distress. HEAD AND NECK: Pupils are equal and reactive to light. Extraocular movements are intact. Neck was supple. No JVD LUNGS: Good air entry. No wheeze or rales. HEART: S1, S2. Distant heart sounds. No murmur or gallops. Pacemaker in left-sided chest wall. ABDOMEN: Soft, nondistended, nontender. EXTREMITIES: No cyanosis, clubbing, edema. Varicose veins, bilateral lower extremities. NEUROLOGIC: Cranial nerves II through XII grossly intact. Motor is 5/5 in all extremities. Gait is intact. RECTAL: Refused and deferred. GENITOURINARY: Refused and deferred. PSYCHIATRIC: Mood and affect is depressed. Assessment/Plan Assessment/Plan ASSESSMENT: 1. Chest pain, possible acute coronary syndrome. 2. Hypertension. 3. Dyslipidemia. 4. Congestive heart failure. 5. Coronary artery disease. 6. Sick sinus syndrome, status pacemaker. 7. UTI. 8. Pancytopenia; S/P transfusion 4 units PRBC total-Severe anemia, Thrombocytopenia and leukopenia-?leukemia? see onc note. PLAN: Admit the patient to telemetry. Discussed case with Dr. Gee from Cardiology Electrophysiology. Await cardiac nuclear stress test-outpatient Dr. Luong, Pulmonary Critical Care. Urine cult=E. Coli. S/P Rocephin. DVT prophylaxis, heparin subcutaneous. Code status, Full Code. The patient is expected to be in the hospital greater than 2 days Discharge paln: [facility] S/P transfusion 2 units PRBC on 11/19/18 See Hematology consult-?acute myelocytic leukemia? Discharge to [facility] Nikhil West MD Dec 12, 2018 19:51
[2018-12-12 20:00] VITALS: BP 122/81
[2018-12-12] MEDS: Atorvastatin 20mg tab ORAL SCH (20:30)
[2018-12-13] VITALS: BP 126/75
[2018-12-13 04:00] VITALS: BP 105/90
[2018-12-13] MEDS: Levothyroxine 25mcg tab ORAL SCH (05:27)
[2018-12-13] MEDS: Morphine Sulfate 2mg/ml Inj(IV/IM USE ONLY) IM PRN ×4 (05:27→23:23)
[2018-12-13 08:00] VITALS: BP 122/67
[2018-12-13] MEDS: Docusate 100mg cap ORAL SCH ×2 (08:47→20:28)
[2018-12-13] MEDS: Carvedilol 12.5mg tab ORAL SCH ×2 (08:47→20:28)
[2018-12-13] MEDS: Albuterol/Ipratropium 3ml neb HHN PRN ×2 (10:15→17:08)
--- NOTE | 2018-12-13 10:59 | GI Progress Note ---
Assessment/Plan Problems: (1) History of CVA (cerebrovascular accident) ICD Codes: Z86.73 - Personal history of transient ischemic attack (TIA), and cerebral infarction without residual deficits SNOMED: 258237842 (2) Severe anemia ICD Codes: D64.9 - Anemia, unspecified SNOMED: 746746538 (3) Abdominal pain ICD Codes: R10.9 - Unspecified abdominal pain SNOMED: 25407095 (4) GERD (gastroesophageal reflux disease) ICD Codes: K21.9 - Gastro-esophageal reflux disease without esophagitis SNOMED: 207943862 Status: unchanged Status Narrative Discussed with Dr. Mcguire Assessment/Plan SUMMARY OF FINDINGS: 1. Gastritis. 2. A 6 cm hiatal hernia. Refusing a.m. lab draws RECOMMENDATIONS: Follow up biopsy results and treat accordingly. >> Mild chronic gastritis. Negative for H. pylori negative negative for dysplasia or malignancy. BM biopsy>> leukemia>> fu oncology monitor H&H, prn transfusions. OB stool uncollected bowel regime ppi, H2B qhs Zofran as needed fu labs Outpatient hep C treatment dc planning The patient was seen and examined at bedside and all new and available data was reviewed in the patients chart. I agree with the above findings, impression and plan. (Patient seen earlier today. Signature stamp does not reflect patient encounter time.). - Richie Mcguire MD Subjective Subjective Complaint of chest pain Nausea Objective Last 24 Hour Vital Signs Date Time Temp Pulse Resp B/P (MAP) Pulse Ox O2 Delivery O2 Flow Rate FiO2 12/13/18 10:25 70 21 98 Nasal Cannula 2.0 28 12/13/18 10:16 68 22 97 Nasal Cannula 3.0 32 12/13/18 09:00 Nasal Cannula 2.0 12/13/18 08:47 66 122/67 12/13/18 08:05 Nasal Cannula 2.0 28 12/13/18 08:05 98 Nasal Cannula 2.0 28 12/13/18 08:05 66 16 Nasal Cannula 2.0 28 12/13/18 08:00 98.2 66 20 122/67 (85) 98 12/13/18 04:00 97.4 67 18 105/90 (95) 100 12/13/18 00:00 98.1 64 18 126/75 (92) 98 12/12/18 21:00 Nasal Cannula 2.0 12/12/18 20:29 65 122/81 12/12/18 20:02 74 16 Nasal Cannula 2.0 28 12/12/18 20:02 Nasal Cannula 2.0 28 12/12/18 20:02 98 Nasal Cannula 2.0 28 12/12/18 20:00 98.1 65 18 122/81 (95) 100 12/12/18 17:30 98.0 12/12/18 15:32 98.0 70 18 120/58 (78) 100 12/12/18 12:00 98.0 64 18 118/60 (79) 100 Intake and Output 12/12/18 12/13/18 18:59 06:59 Intake Total 680 ml Output Total 400 ml Balance 280 ml Intake Oral 680 ml Output Urine Total 400 ml # Voids 3 Laboratory Tests Test 12/12/18 11:45 White Blood Count 5.7 K/UL (4.8-10.8) Red Blood Count 3.61 M/UL (4.70-6.10) L Hemoglobin 8.7 G/DL (14.2-18.0) L Hematocrit 27.6 % (42.0-52.0) L Mean Corpuscular Volume 76 FL (80-99) L Mean Corpuscular Hemoglobin 24.0 PG (27.0-31.0) L Mean Corpuscular Hemoglobin Concent 31.5 G/DL (32.0-36.0) L Red Cell Distribution Width 24.0 % (11.6-14.8) H Platelet Count 65 K/UL (150-450) L Mean Platelet Volume 7.1 FL (6.5-10.1) Neutrophils (%) (Auto) % (45.0-75.0) Lymphocytes (%) (Auto) % (20.0-45.0) Monocytes (%) (Auto) % (1.0-10.0) Eosinophils (%) (Auto) % (0.0-3.0) Basophils (%) (Auto) % (0.0-2.0) Differential Total Cells Counted 100 Neutrophils % (Manual) 35 % (45-75) L Lymphocytes % (Manual) 46 % (20-45) H Monocytes % (Manual) 19 % (1-10) H Eosinophils % (Manual) 0 % (0-3) Basophils % (Manual) 0 % (0-2) Band Neutrophils 0 % (0-8) Reactive Lymphocytes Occasional Platelet Estimate Decreased L Platelet Morphology Giant Platelets 1+ Hypochromasia 2+ Anisocytosis 3+ Microcytosis 1+ Sodium Level 133 MMOL/L (136-145) L Potassium Level 4.2 MMOL/L (3.5-5.1) Chloride Level 99 MMOL/L (98-107) Carbon Dioxide Level 32 MMOL/L (21-32) Anion Gap 2 mmol/L (5-15) L Blood Urea Nitrogen 23 mg/dL (7-18) H Creatinine 0.9 MG/DL (0.55-1.30) Estimat Glomerular Filtration Rate mL/min (>60) Glucose Level 112 MG/DL (74-106) H Calcium Level 8.3 MG/DL (8.5-10.1) L Height (Feet): 5 Height (Inches): 5.00 Weight (Pounds): 152 General Appearance: WD/WN, no apparent distress, alert Cardiovascular: normal rate Respiratory/Chest: normal breath sounds, no respiratory distress Abdominal Exam: normal bowel sounds, non tender, soft Extremities: normal range of motion, non-tender Jason Gray NP Dec 13, 2018 10:59
[2018-12-13 12:00] VITALS: BP 110/55
--- NOTE | 2018-12-13 15:42 | General Progress Note ---
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 --> Hep panel and HIV negative, hep C++++ --> US abd to evaluate for cirrhosis and hsm reviewed --> Peripheral smear ordered to evaluate for blasts /schistocytes --> abx and other meds have been reviewed --> ok for ppx if plt >50k w/ either heparin or lovenox --> Transfuse if Plt < 20k and fever, or if Plt < 10k without fever --->Plt trend 70-->65 # Anemia of chronic disease, some minor hemolysis is noted --> Anemia workup has been reviewed,bertha test is negative, retic reviewed --> Hgb goal >7. Transfuse prn. --> Epogen or iron at this time is not particularly indicated --> Medications have been reviewed --> Hgb trend: 9-->8.7 # Reticulocytosis with elevated bilirubin that is indirect --> reviewed direct and indirect bilis again, trend could have liver disease --> liver US shows no significant cirrhosis --> evaluate as needed with gi team, recs apprecaited #. Chest pain, possible acute coronary syndrome. --> cards recs appreciated as well as pulm --> stress test prn #. Hypertension. #. Dyslipidemia. #. Congestive heart failure. #. Coronary artery disease. #. Sick sinus syndrome, status pacemaker. #. Acute E. coli UTI. #. Hep C+++ needs op management The timing of this note does not necessarily reflect the time of the patient was seen. Greatly appreciate consultation! Subjective ROS Limited/Unobtainable: Yes Allergies: Coded Allergies: No Known Allergies (Verified , 09/12/10) Subjective 11/27: no events to report, no f/c 11/28: seen by bedside, plt 65, plan for EGD and bone marrow biopsy tomorrow 11/29: BM biopsy today, no acute distress. 11/30: Had BM biopsy yesterday and now in reverse isolation. hgb 7.5, will transfuse as needed. 12/01: seen by bedside, plt remains low, awaiting bone marrow biopsy results. 12/02: No acute distress, no chest pain, no shortness of breath, wbc 2.7, hgb 7.3 , plt 50, will transfuse as needed. S/P BM biopsy 11/29/18, Results pending 12/04: bone marrow biopsy completed, and show myeloblasts, c/w mds/leukemia, requires close surveillance 12/05: hgb 6.9, Had blood transfusion today, plt up trending, no events 12/06: Seen by bedside, overall improved, still has complaint of chest pain, plt trending up 12/07: Given 1 unit prbc, continues to c/o chest pain, seen by cards 12/08: seen by bedside, complains of pain, plt 106, no events 12/09: awake, comfortable, plt trending down at 69, no events 12/11: awake, comfortable, on NC, plt remains low at 70. 12/12: awake, comfortable, plt 65, no events 12/13: seen by bedside, awake , comfortable, pending labs. Objective Last 24 Hour Vital Signs Date Time Temp Pulse Resp B/P (MAP) Pulse Ox O2 Delivery O2 Flow Rate FiO2 12/13/18 12:00 97.9 62 18 110/55 (73) 99 12/13/18 11:17 98.2 12/13/18 10:25 70 21 98 Nasal Cannula 2.0 28 12/13/18 10:16 68 22 97 Nasal Cannula 3.0 32 12/13/18 09:00 Nasal Cannula 2.0 12/13/18 08:47 66 122/67 12/13/18 08:05 Nasal Cannula 2.0 28 12/13/18 08:05 98 Nasal Cannula 2.0 28 12/13/18 08:05 66 16 Nasal Cannula 2.0 28 12/13/18 08:00 98.2 66 20 122/67 (85) 98 12/13/18 04:00 97.4 67 18 105/90 (95) 100 12/13/18 00:00 98.1 64 18 126/75 (92) 98 12/12/18 21:00 Nasal Cannula 2.0 12/12/18 20:29 65 122/81 12/12/18 20:02 74 16 Nasal Cannula 2.0 28 12/12/18 20:02 Nasal Cannula 2.0 28 12/12/18 20:02 98 Nasal Cannula 2.0 28 12/12/18 20:00 98.1 65 18 122/81 (95) 100 Intake and Output 12/12/18 12/13/18 19:00 07:00 Intake Total 680 ml Output Total 400 ml Balance 280 ml Intake Oral 680 ml Output Urine Total 400 ml # Voids 3 Height (Feet): 5 Height (Inches): 5.00 Weight (Pounds): 152 Objective General Appearance: well appearing, nad, alert Head: normocephalic, atraumatic Eyes: b/l eye PERRL, bilateral eye EOMI ENT: hearing grossly normal, normal pharynx Neck: full range of motion, supple, no meningismus Respiratory: chest non-tender, lungs clear, normal breath sounds, NC++ Cardiovascular: regular rate, rhythm, no murmur Gastrointestinal: normal bowel sounds, non tender, no mass, no organomegaly, no bruit, non-distended Musculoskeletal: back normal, normal range of motion Psychiatric: mood/affect normal Skin: warm/dry Jose Alberto España MD Dec 13, 2018 15:42
--- NOTE | 2018-12-13 15:43 | Pulmonology Progress Note ---
Assessment/Plan Problems: (1) Myeloblastic leukemia (2) Severe thrombocytopenia (3) ACS (acute coronary syndrome) (4) Cardiomyopathy (5) HTN (hypertension) (6) Pacemaker (7) Hypothyroidism (8) CAD (coronary artery disease) Assessment/Plan doing better increase fentNAYL PACH dc all oral analgesics and try Fentanyl Patch doing better early leukemia PLT stable check electrolytes awaiting bone marrow biopsy results. flow cytometry abnormal all reviewed symptomatic treatment dc planning Subjective ROS Limited/Unobtainable: No Constitutional: Reports: no symptoms HEENT: Repors: no symptoms Allergies: Coded Allergies: No Known Allergies (Verified , 09/12/10) Objective Last 24 Hour Vital Signs Date Time Temp Pulse Resp B/P (MAP) Pulse Ox O2 Delivery O2 Flow Rate FiO2 12/13/18 12:00 97.9 62 18 110/55 (73) 99 12/13/18 11:17 98.2 12/13/18 10:25 70 21 98 Nasal Cannula 2.0 28 12/13/18 10:16 68 22 97 Nasal Cannula 3.0 32 12/13/18 09:00 Nasal Cannula 2.0 12/13/18 08:47 66 122/67 12/13/18 08:05 Nasal Cannula 2.0 28 12/13/18 08:05 98 Nasal Cannula 2.0 28 12/13/18 08:05 66 16 Nasal Cannula 2.0 28 12/13/18 08:00 98.2 66 20 122/67 (85) 98 12/13/18 04:00 97.4 67 18 105/90 (95) 100 12/13/18 00:00 98.1 64 18 126/75 (92) 98 12/12/18 21:00 Nasal Cannula 2.0 12/12/18 20:29 65 122/81 12/12/18 20:02 74 16 Nasal Cannula 2.0 28 12/12/18 20:02 Nasal Cannula 2.0 28 12/12/18 20:02 98 Nasal Cannula 2.0 28 12/12/18 20:00 98.1 65 18 122/81 (95) 100 Intake and Output 12/12/18 12/13/18 19:00 07:00 Intake Total 680 ml Output Total 400 ml Balance 280 ml Intake Oral 680 ml Output Urine Total 400 ml # Voids 3 Objective General Appearance: cachetic Lines, tubes and drains: peripheral HEENT: normocephalic, atraumatic Neck: non-tender, normal alignment Respiratory/Chest: chest wall non-tender, lungs clear Breasts: no masses Cardiovascular/Chest: normal peripheral pulses, normal rate Abdomen: normal bowel sounds, non tender Genitourinary/Rectal: normal genital exam Extremities: normal range of motion Skin Exam: normal pigmentation 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 Current Medications Medications (Trade) Dose Ordered Sig/Scout Route PRN Reason Start Time Stop Time Status Last Admin Dose Admin Acetaminophen (Tylenol) 650 mg Q4H PRN ORAL Mild Pain (Pain Scale 1-3) 11/28/18 17:02 12/18/18 17:01 12/04/18 02:16 Acetaminophen (Tylenol) 650 mg Q4H PRN ORAL fever 11/28/18 17:02 12/18/18 17:01 Acetaminophen (Tylenol) 650 mg Q4H PRN RECTAL Mild Pain (Pain Scale 1-3) 11/28/18 17:02 12/18/18 17:01 Albuterol/ Ipratropium (Albuterol/ Ipratropium) 3 ml Q6H PRN HHN sob 12/11/18 11:12 12/16/18 11:11 12/13/18 10:15 Atorvastatin Calcium (Lipitor) 40 mg BEDTIME ORAL 11/28/18 21:00 12/18/18 20:59 12/12/18 20:30 Bisacodyl (Dulcolax) 10 mg DAILYPRN PRN RECTAL Constipation 11/28/18 17:02 12/28/18 17:01 Carvedilol (Coreg) 12.5 mg EVERY 12 HOURS ORAL 11/28/18 21:00 12/18/18 20:59 12/13/18 08:47 Clonidine HCl (Catapres Tab) 0.1 mg Q2H PRN ORAL For High Blood Pressure 12/06/18 21:15 01/05/19 21:14 12/07/18 08:25 Dextrose (Dextrose 50%) 25 ml Q30M PRN IV Hypoglycemia 11/28/18 17:15 12/18/18 10:14 Dextrose (Dextrose 50%) 50 ml Q30M PRN IV Hypoglycemia 11/28/18 17:15 12/18/18 10:14 Docusate Sodium (Colace) 100 mg EVERY 12 HOURS ORAL 11/28/18 21:00 12/18/18 20:59 12/13/18 08:47 Escitalopram Oxalate (Lexapro) 15 mg DAILY ORAL 11/29/18 09:00 12/24/18 08:59 12/13/18 08:47 Famotidine (Pepcid) 20 mg QHS ORAL 11/30/18 21:00 12/30/18 20:59 12/12/18 20:30 Fentanyl (Duragesic) 1 patch Q72H TDERMAL 12/08/18 16:00 12/15/18 15:59 12/11/18 15:57 Levothyroxine Sodium (Synthroid) 25 mcg Q24H ORAL 11/29/18 06:30 12/19/18 06:29 12/13/18 05:27 Miscellaneous Medication (fentaNYL Destruction) 1 ea Q72H MISC 12/11/18 15:59 01/10/19 15:58 12/11/18 15:50 Morphine Sulfate (Morphine Sulfate) 2 mg Q4H PRN IM For Pain 12/08/18 19:00 12/15/18 18:59 12/13/18 15:12 Naloxone HCl (Narcan) 0.1 mg PRN IV Sedation scale 3 or 4 12/08/18 15:15 01/07/19 15:14 Nitroglycerin (Ntg) 0.4 mg Q5M PRN SL Prn Chest Pain 11/28/18 17:05 12/18/18 10:14 12/11/18 14:18 Ondansetron HCl (Zofran ODT) 4 mg Q4H PRN ORAL Nausea & Vomiting 12/07/18 10:00 01/06/19 09:59 12/12/18 14:21 Pantoprazole (Protonix) 40 mg DAILY ORAL 11/29/18 09:00 12/19/18 08:59 12/13/18 08:47 Polyethylene Glycol (Miralax) 17 gm DAILYPRN PRN ORAL Constipation 11/28/18 17:04 12/28/18 17:03 12/02/18 09:01 Chepe Luong MD Dec 13, 2018 15:43
[2018-12-13 16:00] VITALS: BP 110/50
--- NOTE | 2018-12-13 16:05 | Cardiac Electrophysiology PN ---
Assessment/Plan Assessment/Plan 1. Atypical chest pain and hx of CABG. Likely due to severe anemia. Ruled out NE. Nuclear stress test cancelled for severe anemia. Reschedule after pancytopenia is resolved as out patient. On Lipitor and Coreg. Off Aspirin and Plavix for anemia and thrombocytopenia 2. Cardiomyopathy. EF now 55%. On Coreg 12.5 mg bid. Off Lisinopril and Lasix 3. Status post [facility] atrial biventricular defibrillator. Interrogated and showed Nl Fx 4. Severe anemia, S/P PRBC. FU GI. 5. Pancytopenia with Platelet count of 17. Off Aspirin and PLavix S/P platelet transfusion. S/P BM biopsy 11/29/18. S/P PRBC Bone marrow bipsy/aspiration concerning for LEUKEMIA with 8.7% myeloblasts, Chemo by Dr Dayami CORTEZ RN DC to SN pending Subjective Subjective No CP or SOB.Off tele. Objective Last 24 Hour Vital Signs Date Time Temp Pulse Resp B/P (MAP) Pulse Ox O2 Delivery O2 Flow Rate FiO2 12/13/18 15:42 97.9 12/13/18 12:00 97.9 62 18 110/55 (73) 99 12/13/18 10:25 70 21 98 Nasal Cannula 2.0 28 12/13/18 10:16 68 22 97 Nasal Cannula 3.0 32 12/13/18 09:00 Nasal Cannula 2.0 12/13/18 08:47 66 122/67 12/13/18 08:05 Nasal Cannula 2.0 28 12/13/18 08:05 98 Nasal Cannula 2.0 28 12/13/18 08:05 66 16 Nasal Cannula 2.0 28 12/13/18 08:00 98.2 66 20 122/67 (85) 98 12/13/18 04:00 97.4 67 18 105/90 (95) 100 12/13/18 00:00 98.1 64 18 126/75 (92) 98 12/12/18 21:00 Nasal Cannula 2.0 12/12/18 20:29 65 122/81 12/12/18 20:02 74 16 Nasal Cannula 2.0 28 12/12/18 20:02 Nasal Cannula 2.0 28 12/12/18 20:02 98 Nasal Cannula 2.0 28 12/12/18 20:00 98.1 65 18 122/81 (95) 100 Intake and Output 12/12/18 12/13/18 19:00 07:00 Intake Total 680 ml Output Total 400 ml Balance 280 ml Intake Oral 680 ml Output Urine Total 400 ml # Voids 3 Objective HEAD AND NECK: No JVD. LUNGS: Coarse rhonchi. CARDIOVASCULAR: Regular S1 and S2 with no gallop or murmur. Sternotomy is intact. Defibrillator in left subclavian. ABDOMEN: Soft. EXTREMITIES: 1+ pitting edema. Satinder Gee MD Dec 13, 2018 16:05
--- NOTE | 2018-12-13 16:37 | Internal Med Progress Note ---
Subjective Date of Service: Dec 13, 2018 Physician Name Nikhil West Attending Physician Abdias Hunter MD Current Medications Medications (Trade) Dose Ordered Sig/Scout Route PRN Reason Start Time Stop Time Status Last Admin Dose Admin Acetaminophen (Tylenol) 650 mg Q4H PRN ORAL Mild Pain (Pain Scale 1-3) 11/28/18 17:02 12/18/18 17:01 12/04/18 02:16 Acetaminophen (Tylenol) 650 mg Q4H PRN ORAL fever 11/28/18 17:02 12/18/18 17:01 Acetaminophen (Tylenol) 650 mg Q4H PRN RECTAL Mild Pain (Pain Scale 1-3) 11/28/18 17:02 12/18/18 17:01 Albuterol/ Ipratropium (Albuterol/ Ipratropium) 3 ml Q6H PRN HHN sob 12/11/18 11:12 12/16/18 11:11 12/13/18 10:15 Atorvastatin Calcium (Lipitor) 40 mg BEDTIME ORAL 11/28/18 21:00 12/18/18 20:59 12/12/18 20:30 Bisacodyl (Dulcolax) 10 mg DAILYPRN PRN RECTAL Constipation 11/28/18 17:02 12/28/18 17:01 Carvedilol (Coreg) 12.5 mg EVERY 12 HOURS ORAL 11/28/18 21:00 12/18/18 20:59 12/13/18 08:47 Clonidine HCl (Catapres Tab) 0.1 mg Q2H PRN ORAL For High Blood Pressure 12/06/18 21:15 01/05/19 21:14 12/07/18 08:25 Dextrose (Dextrose 50%) 25 ml Q30M PRN IV Hypoglycemia 11/28/18 17:15 12/18/18 10:14 Dextrose (Dextrose 50%) 50 ml Q30M PRN IV Hypoglycemia 11/28/18 17:15 12/18/18 10:14 Docusate Sodium (Colace) 100 mg EVERY 12 HOURS ORAL 11/28/18 21:00 12/18/18 20:59 12/13/18 08:47 Escitalopram Oxalate (Lexapro) 15 mg DAILY ORAL 11/29/18 09:00 12/24/18 08:59 12/13/18 08:47 Famotidine (Pepcid) 20 mg QHS ORAL 11/30/18 21:00 12/30/18 20:59 12/12/18 20:30 Fentanyl (Duragesic) 1 patch Q72H TDERMAL 12/08/18 16:00 12/15/18 15:59 12/11/18 15:57 Levothyroxine Sodium (Synthroid) 25 mcg Q24H ORAL 11/29/18 06:30 12/19/18 06:29 12/13/18 05:27 Miscellaneous Medication (fentaNYL Destruction) 1 ea Q72H MISC 12/11/18 15:59 01/10/19 15:58 12/11/18 15:50 Morphine Sulfate (Morphine Sulfate) 2 mg Q4H PRN IM For Pain 12/08/18 19:00 12/15/18 18:59 12/13/18 15:12 Naloxone HCl (Narcan) 0.1 mg PRN IV Sedation scale 3 or 4 12/08/18 15:15 01/07/19 15:14 Nitroglycerin (Ntg) 0.4 mg Q5M PRN SL Prn Chest Pain 11/28/18 17:05 12/18/18 10:14 12/11/18 14:18 Ondansetron HCl (Zofran ODT) 4 mg Q4H PRN ORAL Nausea & Vomiting 12/07/18 10:00 01/06/19 09:59 12/12/18 14:21 Pantoprazole (Protonix) 40 mg DAILY ORAL 11/29/18 09:00 12/19/18 08:59 12/13/18 08:47 Polyethylene Glycol (Miralax) 17 gm DAILYPRN PRN ORAL Constipation 11/28/18 17:04 12/28/18 17:03 12/02/18 09:01 Allergies: Coded Allergies: No Known Allergies (Verified , 09/12/10) ROS Limited/Unobtainable: No Constitutional: Reports: no symptoms HEENT: Reports: no symptoms Cardiovascular: Reports: no symptoms Respiratory: Reports: no symptoms Gastrointestinal/Abdominal: Reports: no symptoms Genitourinary: Reports: no symptoms Neurologic/Psychiatric: Reports: no symptoms Subjective 78 YO M admitted with chest pain. Now pancytopenia and UTI. Cover for Int Med- Dr Hunter. Objective Last Vital Signs Date Time Temp Pulse Resp B/P (MAP) Pulse Ox O2 Delivery O2 Flow Rate FiO2 12/13/18 16:00 97.9 105 18 110/50 (70) 99 12/13/18 10:25 Nasal Cannula 2.0 28 Intake and Output 12/12/18 12/13/18 19:00 07:00 Intake Total 680 ml Output Total 400 ml Balance 280 ml Intake Oral 680 ml Output Urine Total 400 ml # Voids 3 Objective PHYSICAL EXAMINATION: GENERAL: The patient awake, responsive, no acute distress. HEAD AND NECK: Pupils are equal and reactive to light. Extraocular movements are intact. Neck was supple. No JVD LUNGS: Good air entry. No wheeze or rales. HEART: S1, S2. Distant heart sounds. No murmur or gallops. Pacemaker in left-sided chest wall. ABDOMEN: Soft, nondistended, nontender. EXTREMITIES: No cyanosis, clubbing, edema. Varicose veins, bilateral lower extremities. NEUROLOGIC: Cranial nerves II through XII grossly intact. Motor is 5/5 in all extremities. Gait is intact. RECTAL: Refused and deferred. GENITOURINARY: Refused and deferred. PSYCHIATRIC: Mood and affect is depressed. Assessment/Plan Assessment/Plan ASSESSMENT: 1. Chest pain, possible acute coronary syndrome. 2. Hypertension. 3. Dyslipidemia. 4. Congestive heart failure. 5. Coronary artery disease. 6. Sick sinus syndrome, status pacemaker. 7. UTI. 8. Pancytopenia; S/P transfusion 4 units PRBC total-Severe anemia, Thrombocytopenia and leukopenia-?leukemia? see onc note. PLAN: Admit the patient to telemetry. Discussed case with Dr. Gee from Cardiology Electrophysiology. Await cardiac nuclear stress test-outpatient Dr. Luong, Pulmonary Critical Care. Urine cult=E. Coli. S/P Rocephin. DVT prophylaxis, heparin subcutaneous. Code status, Full Code. The patient is expected to be in the hospital greater than 2 days Discharge paln: [facility] S/P transfusion 2 units PRBC on 11/19/18 See Hematology consult-?acute myelocytic leukemia? Discharge to [facility] Nikhil West MD Dec 13, 2018 16:37
[2018-12-13 20:00] VITALS: BP 109/54
[2018-12-13] MEDS: Atorvastatin 20mg tab ORAL SCH (20:28)
[2018-12-14] VITALS: BP 102/51
[2018-12-14 04:00] VITALS: BP 112/53
[2018-12-14] MEDS: Levothyroxine 25mcg tab ORAL SCH (05:24)
[2018-12-14] MEDS: Morphine Sulfate 2mg/ml Inj(IV/IM USE ONLY) IM PRN ×4 (05:25→20:11)
[2018-12-14 08:00] VITALS: BP 116/55
[2018-12-14 08:21] LABS: HEMOGLOBIN 7.9 G/DL (14.2-18.0); MEAN CORPUSCULAR VOLUME 77 FL (80-99); PLATELET COUNT 44 K/UL (150-450); RED BLOOD COUNT 3.26 M/UL (4.70-6.10); RED CELL DISTRIBUTION WIDTH 23.6 % (11.6-14.8); WHITE BLOOD COUNT 5.4 K/UL (4.8-10.8)
[2018-12-14] MEDS: Carvedilol 12.5mg tab ORAL SCH ×2 (08:31→20:11)
[2018-12-14] MEDS: Docusate 100mg cap ORAL SCH ×2 (08:31→20:08)
[2018-12-14 09:03] LABS: ANION GAP 5 mmol/L (5-15); BLOOD UREA NITROGEN 19 mg/dL (7-18); CALCIUM 8.4 MG/DL (8.5-10.1); CARBON DIOXIDE 30 MMOL/L (21-32); CHLORIDE 99 MMOL/L (98-107); CREATININE 0.9 MG/DL (0.55-1.30); POTASSIUM 4.4 MMOL/L (3.5-5.1); SODIUM 133 MMOL/L (136-145)
--- NOTE | 2018-12-14 10:16 | GI Progress Note ---
Assessment/Plan Problems: (1) History of CVA (cerebrovascular accident) ICD Codes: Z86.73 - Personal history of transient ischemic attack (TIA), and cerebral infarction without residual deficits SNOMED: 075179708 (2) Severe anemia ICD Codes: D64.9 - Anemia, unspecified SNOMED: 177183587 (3) Abdominal pain ICD Codes: R10.9 - Unspecified abdominal pain SNOMED: 86265639 (4) GERD (gastroesophageal reflux disease) ICD Codes: K21.9 - Gastro-esophageal reflux disease without esophagitis SNOMED: 703221915 Status: stable, unchanged Status Narrative Discussed with Dr. Mcguire. Assessment/Plan SUMMARY OF FINDINGS: 1. Gastritis. 2. A 6 cm hiatal hernia. Refusing a.m. lab draws RECOMMENDATIONS: Follow up biopsy results and treat accordingly. >> Mild chronic gastritis. Negative for H. pylori negative negative for dysplasia or malignancy. BM biopsy>> leukemia>> fu oncology monitor H&H, prn transfusions. OB stool uncollected bowel regime ppi, H2B qhs Zofran as needed fu labs Outpatient hep C treatment dc planning The patient was seen and examined at bedside and all new and available data was reviewed in the patients chart. I agree with the above findings, impression and plan. (Patient seen earlier today. Signature stamp does not reflect patient encounter time.). - Richie Mcguire MD Subjective Subjective Complaint of chest pain Nausea Objective Last 24 Hour Vital Signs Date Time Temp Pulse Resp B/P (MAP) Pulse Ox O2 Delivery O2 Flow Rate FiO2 12/14/18 09:00 Nasal Cannula 2.0 12/14/18 08:31 70 116/55 12/14/18 08:05 69 16 Nasal Cannula 2.0 28 12/14/18 08:05 Nasal Cannula 2.0 28 12/14/18 08:05 98 Nasal Cannula 2.0 28 12/14/18 08:00 96.8 70 20 116/55 (75) 99 12/14/18 04:00 97.9 63 18 112/53 (72) 99 12/14/18 00:00 99.0 63 18 102/51 (68) 97 12/13/18 21:00 Nasal Cannula 2.0 12/13/18 20:30 Nasal Cannula 2.0 28 12/13/18 20:30 69 16 Nasal Cannula 2.0 28 12/13/18 20:30 97 Nasal Cannula 2.0 28 12/13/18 20:28 63 109/54 12/13/18 20:00 98.0 63 18 109/54 (72) 98 12/13/18 17:17 100 20 98 Nasal Cannula 2.0 28 12/13/18 17:08 101 21 97 Nasal Cannula 3.0 32 12/13/18 16:00 97.9 105 18 110/50 (70) 99 12/13/18 15:42 97.9 12/13/18 12:00 97.9 62 18 110/55 (73) 99 12/13/18 10:25 70 21 98 Nasal Cannula 2.0 28 12/13/18 10:16 68 22 97 Nasal Cannula 3.0 32 Intake and Output 12/13/18 12/14/18 19:00 07:00 Intake Total 1330 ml Output Total 1800 ml Balance -470 ml Intake Oral 680 ml Other 650 ml Output Urine Total 1800 ml # Voids 3 6 Laboratory Tests Test 12/14/18 06:24 White Blood Count 5.4 K/UL (4.8-10.8) Red Blood Count 3.26 M/UL (4.70-6.10) L Hemoglobin 7.9 G/DL (14.2-18.0) L Hematocrit 25.0 % (42.0-52.0) L Mean Corpuscular Volume 77 FL (80-99) L Mean Corpuscular Hemoglobin 24.3 PG (27.0-31.0) L Mean Corpuscular Hemoglobin Concent 31.5 G/DL (32.0-36.0) L Red Cell Distribution Width 23.6 % (11.6-14.8) H Platelet Count 44 K/UL (150-450) L Mean Platelet Volume 6.6 FL (6.5-10.1) Neutrophils (%) (Auto) % (45.0-75.0) Lymphocytes (%) (Auto) % (20.0-45.0) Monocytes (%) (Auto) % (1.0-10.0) Eosinophils (%) (Auto) % (0.0-3.0) Basophils (%) (Auto) % (0.0-2.0) Neutrophils % (Manual) Pending Lymphocytes % (Manual) Pending Platelet Estimate Pending Platelet Morphology Pending Sodium Level 133 MMOL/L (136-145) L Potassium Level 4.4 MMOL/L (3.5-5.1) Chloride Level 99 MMOL/L (98-107) Carbon Dioxide Level 30 MMOL/L (21-32) Anion Gap 5 mmol/L (5-15) Blood Urea Nitrogen 19 mg/dL (7-18) H Creatinine 0.9 MG/DL (0.55-1.30) Estimat Glomerular Filtration Rate mL/min (>60) Glucose Level 95 MG/DL (74-106) Calcium Level 8.4 MG/DL (8.5-10.1) L Height (Feet): 5 Height (Inches): 5.00 Weight (Pounds): 150 General Appearance: WD/WN, no apparent distress, alert, thin Cardiovascular: normal rate Respiratory/Chest: normal breath sounds, no respiratory distress Abdominal Exam: normal bowel sounds, non tender, soft Extremities: normal range of motion, non-tender Jason Gray NP Dec 14, 2018 10:16
[2018-12-14 12:00] VITALS: BP 110/52
--- NOTE | 2018-12-14 12:27 | Internal Med Progress Note ---
Subjective Date of Service: Dec 14, 2018 Physician Name Nikhil West Attending Physician Abdias Hunter MD Current Medications Medications (Trade) Dose Ordered Sig/Scout Route PRN Reason Start Time Stop Time Status Last Admin Dose Admin Acetaminophen (Tylenol) 650 mg Q4H PRN ORAL Mild Pain (Pain Scale 1-3) 11/28/18 17:02 12/18/18 17:01 12/04/18 02:16 Acetaminophen (Tylenol) 650 mg Q4H PRN ORAL fever 11/28/18 17:02 12/18/18 17:01 Acetaminophen (Tylenol) 650 mg Q4H PRN RECTAL Mild Pain (Pain Scale 1-3) 11/28/18 17:02 12/18/18 17:01 Albuterol/ Ipratropium (Albuterol/ Ipratropium) 3 ml Q6H PRN HHN sob 12/11/18 11:12 12/16/18 11:11 12/13/18 17:08 Atorvastatin Calcium (Lipitor) 40 mg BEDTIME ORAL 11/28/18 21:00 12/18/18 20:59 12/13/18 20:28 Bisacodyl (Dulcolax) 10 mg DAILYPRN PRN RECTAL Constipation 11/28/18 17:02 12/28/18 17:01 Carvedilol (Coreg) 12.5 mg EVERY 12 HOURS ORAL 11/28/18 21:00 12/18/18 20:59 12/14/18 08:31 Clonidine HCl (Catapres Tab) 0.1 mg Q2H PRN ORAL For High Blood Pressure 12/06/18 21:15 01/05/19 21:14 12/07/18 08:25 Dextrose (Dextrose 50%) 25 ml Q30M PRN IV Hypoglycemia 11/28/18 17:15 12/18/18 10:14 Dextrose (Dextrose 50%) 50 ml Q30M PRN IV Hypoglycemia 11/28/18 17:15 12/18/18 10:14 Docusate Sodium (Colace) 100 mg EVERY 12 HOURS ORAL 11/28/18 21:00 12/18/18 20:59 12/14/18 08:31 Escitalopram Oxalate (Lexapro) 15 mg DAILY ORAL 11/29/18 09:00 12/24/18 08:59 12/14/18 08:31 Famotidine (Pepcid) 20 mg QHS ORAL 11/30/18 21:00 12/30/18 20:59 12/13/18 20:28 Fentanyl (Duragesic) 1 patch Q72H TDERMAL 12/08/18 16:00 12/15/18 15:59 12/11/18 15:57 Levothyroxine Sodium (Synthroid) 25 mcg Q24H ORAL 11/29/18 06:30 12/19/18 06:29 12/14/18 05:24 Miscellaneous Medication (fentaNYL Destruction) 1 ea Q72H MISC 12/11/18 15:59 01/10/19 15:58 12/11/18 15:50 Morphine Sulfate (Morphine Sulfate) 2 mg Q4H PRN IM For Pain 12/08/18 19:00 12/15/18 18:59 12/14/18 09:42 Naloxone HCl (Narcan) 0.1 mg PRN IV Sedation scale 3 or 4 12/08/18 15:15 01/07/19 15:14 Nitroglycerin (Ntg) 0.4 mg Q5M PRN SL Prn Chest Pain 11/28/18 17:05 12/18/18 10:14 12/11/18 14:18 Ondansetron HCl (Zofran ODT) 4 mg Q4H PRN ORAL Nausea & Vomiting 12/07/18 10:00 01/06/19 09:59 12/12/18 14:21 Pantoprazole (Protonix) 40 mg DAILY ORAL 11/29/18 09:00 12/19/18 08:59 12/14/18 08:31 Polyethylene Glycol (Miralax) 17 gm DAILYPRN PRN ORAL Constipation 11/28/18 17:04 12/28/18 17:03 12/02/18 09:01 Allergies: Coded Allergies: No Known Allergies (Verified , 09/12/10) ROS Limited/Unobtainable: No Constitutional: Reports: no symptoms HEENT: Reports: no symptoms Cardiovascular: Reports: no symptoms Respiratory: Reports: no symptoms Gastrointestinal/Abdominal: Reports: no symptoms Genitourinary: Reports: no symptoms Neurologic/Psychiatric: Reports: no symptoms Subjective 78 YO M admitted with chest pain. Now pancytopenia and UTI. Cover for Int Med- Dr Hunter. Objective Last Vital Signs Date Time Temp Pulse Resp B/P (MAP) Pulse Ox O2 Delivery O2 Flow Rate FiO2 12/14/18 10:12 96.8 12/14/18 09:00 Nasal Cannula 2.0 12/14/18 08:31 70 116/55 12/14/18 08:05 16 28 12/14/18 08:05 98 Laboratory Tests Test 12/14/18 06:24 White Blood Count 5.4 K/UL (4.8-10.8) Red Blood Count 3.26 M/UL (4.70-6.10) L Hemoglobin 7.9 G/DL (14.2-18.0) L Hematocrit 25.0 % (42.0-52.0) L Mean Corpuscular Volume 77 FL (80-99) L Mean Corpuscular Hemoglobin 24.3 PG (27.0-31.0) L Mean Corpuscular Hemoglobin Concent 31.5 G/DL (32.0-36.0) L Red Cell Distribution Width 23.6 % (11.6-14.8) H Platelet Count 44 K/UL (150-450) L Mean Platelet Volume 6.6 FL (6.5-10.1) Neutrophils (%) (Auto) % (45.0-75.0) Lymphocytes (%) (Auto) % (20.0-45.0) Monocytes (%) (Auto) % (1.0-10.0) Eosinophils (%) (Auto) % (0.0-3.0) Basophils (%) (Auto) % (0.0-2.0) Differential Total Cells Counted 100 Neutrophils % (Manual) 37 % (45-75) L Lymphocytes % (Manual) 40 % (20-45) Monocytes % (Manual) 19 % (1-10) H Eosinophils % (Manual) 3 % (0-3) Basophils % (Manual) 1 % (0-2) Band Neutrophils 0 % (0-8) Platelet Estimate Decreased L Platelet Morphology Giant Platelets Occasional Hypochromasia 2+ Anisocytosis 2+ Microcytosis 1+ Schistocytes Occasional Sodium Level 133 MMOL/L (136-145) L Potassium Level 4.4 MMOL/L (3.5-5.1) Chloride Level 99 MMOL/L (98-107) Carbon Dioxide Level 30 MMOL/L (21-32) Anion Gap 5 mmol/L (5-15) Blood Urea Nitrogen 19 mg/dL (7-18) H Creatinine 0.9 MG/DL (0.55-1.30) Estimat Glomerular Filtration Rate mL/min (>60) Glucose Level 95 MG/DL (74-106) Calcium Level 8.4 MG/DL (8.5-10.1) L Intake and Output 12/13/18 12/14/18 18:59 06:59 Intake Total 1330 ml Output Total 1800 ml Balance -470 ml Intake Oral 680 ml Other 650 ml Output Urine Total 1800 ml # Voids 3 6 Objective PHYSICAL EXAMINATION: GENERAL: The patient awake, responsive, no acute distress. HEAD AND NECK: Pupils are equal and reactive to light. Extraocular movements are intact. Neck was supple. No JVD LUNGS: Good air entry. No wheeze or rales. HEART: S1, S2. Distant heart sounds. No murmur or gallops. Pacemaker in left-sided chest wall. ABDOMEN: Soft, nondistended, nontender. EXTREMITIES: No cyanosis, clubbing, edema. Varicose veins, bilateral lower extremities. NEUROLOGIC: Cranial nerves II through XII grossly intact. Motor is 5/5 in all extremities. Gait is intact. RECTAL: Refused and deferred. GENITOURINARY: Refused and deferred. PSYCHIATRIC: Mood and affect is depressed. Assessment/Plan Assessment/Plan ASSESSMENT: 1. Chest pain, possible acute coronary syndrome. 2. Hypertension. 3. Dyslipidemia. 4. Congestive heart failure. 5. Coronary artery disease. 6. Sick sinus syndrome, status pacemaker. 7. UTI. 8. Pancytopenia; S/P transfusion 4 units PRBC total-Severe anemia, Thrombocytopenia and leukopenia-?leukemia? see onc note. PLAN: Admit the patient to telemetry. Discussed case with Dr. Gee from Cardiology Electrophysiology. Await cardiac nuclear stress test-outpatient Dr. Luong, Pulmonary Critical Care. Urine cult=E. Coli. S/P Rocephin. DVT prophylaxis, heparin subcutaneous. Code status, Full Code. The patient is expected to be in the hospital greater than 2 days Discharge paln: [facility] S/P transfusion 2 units PRBC on 11/19/18 See Hematology consult-?acute myelocytic leukemia? Discharge to [facility] Nikhil West MD Dec 14, 2018 12:27
--- NOTE | 2018-12-14 13:02 | Pulmonology Progress Note ---
Assessment/Plan Problems: (1) Myeloblastic leukemia (2) Severe thrombocytopenia (3) ACS (acute coronary syndrome) (4) Cardiomyopathy (5) HTN (hypertension) (6) Pacemaker (7) Hypothyroidism (8) CAD (coronary artery disease) Assessment/Plan doing better increase fentNAYL PACH dc all oral analgesics and try Fentanyl Patch doing better early leukemia PLT stable check electrolytes awaiting bone marrow biopsy results. all reviewed symptomatic treatment dc planning Subjective ROS Limited/Unobtainable: No Constitutional: Reports: no symptoms HEENT: Repors: no symptoms Respiratory: Reports: no symptoms Allergies: Coded Allergies: No Known Allergies (Verified , 09/12/10) Objective Last 24 Hour Vital Signs Date Time Temp Pulse Resp B/P (MAP) Pulse Ox O2 Delivery O2 Flow Rate FiO2 12/14/18 12:00 98.8 68 20 110/52 (71) 99 12/14/18 10:12 96.8 12/14/18 09:00 Nasal Cannula 2.0 12/14/18 08:31 70 116/55 12/14/18 08:05 69 16 Nasal Cannula 2.0 28 12/14/18 08:05 Nasal Cannula 2.0 28 12/14/18 08:05 98 Nasal Cannula 2.0 28 12/14/18 08:00 96.8 70 20 116/55 (75) 99 12/14/18 04:00 97.9 63 18 112/53 (72) 99 12/14/18 00:00 99.0 63 18 102/51 (68) 97 12/13/18 21:00 Nasal Cannula 2.0 12/13/18 20:30 Nasal Cannula 2.0 28 12/13/18 20:30 69 16 Nasal Cannula 2.0 28 12/13/18 20:30 97 Nasal Cannula 2.0 28 12/13/18 20:28 63 109/54 12/13/18 20:00 98.0 63 18 109/54 (72) 98 12/13/18 17:17 100 20 98 Nasal Cannula 2.0 28 12/13/18 17:08 101 21 97 Nasal Cannula 3.0 32 12/13/18 16:00 97.9 105 18 110/50 (70) 99 Intake and Output 12/13/18 12/14/18 19:00 07:00 Intake Total 1330 ml Output Total 1800 ml Balance -470 ml Intake Oral 680 ml Other 650 ml Output Urine Total 1800 ml # Voids 3 6 Objective General Appearance: cachetic Lines, tubes and drains: peripheral HEENT: normocephalic, atraumatic Neck: non-tender, normal alignment Respiratory/Chest: chest wall non-tender, lungs clear Breasts: no masses Cardiovascular/Chest: normal peripheral pulses, normal rate Abdomen: normal bowel sounds, non tender Genitourinary/Rectal: normal genital exam Extremities: normal range of motion Skin Exam: normal pigmentation 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 Laboratory Tests 12/14/18 06:24: White Blood Count 5.4, Red Blood Count 3.26L, Hemoglobin 7.9L, Hematocrit 25.0L , Mean Corpuscular Volume 77L, Mean Corpuscular Hemoglobin 24.3L, Mean Corpuscular Hemoglobin Concent 31.5L, Red Cell Distribution Width 23.6H, Platelet Count 44L, Mean Platelet Volume 6.6, Neutrophils (%) (Auto) , Lymphocytes (%) (Auto) , Monocytes (%) (Auto) , Eosinophils (%) (Auto) , Basophils (%) (Auto) , Differential Total Cells Counted 100, Neutrophils % ( Manual) 37L, Lymphocytes % (Manual) 40, Monocytes % (Manual) 19H, Eosinophils % (Manual) 3, Basophils % (Manual) 1, Band Neutrophils 0, Platelet Estimate DecreasedL, Platelet Morphology , Giant Platelets Occasional, Hypochromasia 2+, Anisocytosis 2+, Microcytosis 1+, Schistocytes Occasional, Sodium Level 133L, Potassium Level 4.4, Chloride Level 99, Carbon Dioxide Level 30, Anion Gap 5, Blood Urea Nitrogen 19H, Creatinine 0.9, Estimat Glomerular Filtration Rate , Glucose Level 95, Calcium Level 8.4L Current Medications Medications (Trade) Dose Ordered Sig/Scout Route PRN Reason Start Time Stop Time Status Last Admin Dose Admin Acetaminophen (Tylenol) 650 mg Q4H PRN ORAL Mild Pain (Pain Scale 1-3) 11/28/18 17:02 12/18/18 17:01 12/04/18 02:16 Acetaminophen (Tylenol) 650 mg Q4H PRN ORAL fever 11/28/18 17:02 12/18/18 17:01 Acetaminophen (Tylenol) 650 mg Q4H PRN RECTAL Mild Pain (Pain Scale 1-3) 11/28/18 17:02 12/18/18 17:01 Albuterol/ Ipratropium (Albuterol/ Ipratropium) 3 ml Q6H PRN HHN sob 12/11/18 11:12 12/16/18 11:11 12/13/18 17:08 Atorvastatin Calcium (Lipitor) 40 mg BEDTIME ORAL 11/28/18 21:00 12/18/18 20:59 12/13/18 20:28 Bisacodyl (Dulcolax) 10 mg DAILYPRN PRN RECTAL Constipation 11/28/18 17:02 12/28/18 17:01 Carvedilol (Coreg) 12.5 mg EVERY 12 HOURS ORAL 11/28/18 21:00 12/18/18 20:59 12/14/18 08:31 Clonidine HCl (Catapres Tab) 0.1 mg Q2H PRN ORAL For High Blood Pressure 12/06/18 21:15 01/05/19 21:14 12/07/18 08:25 Dextrose (Dextrose 50%) 25 ml Q30M PRN IV Hypoglycemia 11/28/18 17:15 12/18/18 10:14 Dextrose (Dextrose 50%) 50 ml Q30M PRN IV Hypoglycemia 11/28/18 17:15 12/18/18 10:14 Docusate Sodium (Colace) 100 mg EVERY 12 HOURS ORAL 11/28/18 21:00 12/18/18 20:59 12/14/18 08:31 Escitalopram Oxalate (Lexapro) 15 mg DAILY ORAL 11/29/18 09:00 12/24/18 08:59 12/14/18 08:31 Famotidine (Pepcid) 20 mg QHS ORAL 11/30/18 21:00 12/30/18 20:59 12/13/18 20:28 Fentanyl (Duragesic) 1 patch Q72H TDERMAL 12/08/18 16:00 12/15/18 15:59 12/11/18 15:57 Levothyroxine Sodium (Synthroid) 25 mcg Q24H ORAL 11/29/18 06:30 12/19/18 06:29 12/14/18 05:24 Miscellaneous Medication (fentaNYL Destruction) 1 ea Q72H MISC 12/11/18 15:59 01/10/19 15:58 12/11/18 15:50 Morphine Sulfate (Morphine Sulfate) 2 mg Q4H PRN IM For Pain 12/08/18 19:00 12/15/18 18:59 12/14/18 09:42 Naloxone HCl (Narcan) 0.1 mg PRN IV Sedation scale 3 or 4 12/08/18 15:15 01/07/19 15:14 Nitroglycerin (Ntg) 0.4 mg Q5M PRN SL Prn Chest Pain 11/28/18 17:05 12/18/18 10:14 12/11/18 14:18 Ondansetron HCl (Zofran ODT) 4 mg Q4H PRN ORAL Nausea & Vomiting 12/07/18 10:00 01/06/19 09:59 12/12/18 14:21 Pantoprazole (Protonix) 40 mg DAILY ORAL 11/29/18 09:00 12/19/18 08:59 12/14/18 08:31 Polyethylene Glycol (Miralax) 17 gm DAILYPRN PRN ORAL Constipation 11/28/18 17:04 12/28/18 17:03 12/02/18 09:01 hCepe Luong MD Dec 14, 2018 13:02
[2018-12-14] MEDS: Albuterol/Ipratropium 3ml neb HHN PRN (13:33)
--- NOTE | 2018-12-14 14:30 | General Progress Note ---
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 --> Hep panel and HIV negative, hep C++++ --> US abd to evaluate for cirrhosis and hsm reviewed --> Peripheral smear ordered to evaluate for blasts /schistocytes --> abx and other meds have been reviewed --> ok for ppx if plt >50k w/ either heparin or lovenox --> Transfuse if Plt < 20k and fever, or if Plt < 10k without fever --->Plt trend 70-->65-->44 # Anemia of chronic disease, some minor hemolysis is noted --> Anemia workup has been reviewed,bertha test is negative, retic reviewed --> Hgb goal >7. Transfuse prn. --> Epogen or iron at this time is not particularly indicated --> Medications have been reviewed --> Hgb trend: 9-->8.7-->7.9 # Reticulocytosis with elevated bilirubin that is indirect --> reviewed direct and indirect bilis again, trend could have liver disease --> liver US shows no significant cirrhosis --> evaluate as needed with gi team, recs apprecaited #. Chest pain, possible acute coronary syndrome. --> cards recs appreciated as well as pulm --> stress test prn #. Hypertension. #. Dyslipidemia. #. Congestive heart failure. #. Coronary artery disease. #. Sick sinus syndrome, status pacemaker. #. Acute E. coli UTI. #. Hep C+++ needs op management The timing of this note does not necessarily reflect the time of the patient was seen. Greatly appreciate consultation! Subjective ROS Limited/Unobtainable: Yes Allergies: Coded Allergies: No Known Allergies (Verified , 09/12/10) Subjective 11/27: no events to report, no f/c 11/28: seen by bedside, plt 65, plan for EGD and bone marrow biopsy tomorrow 11/29: BM biopsy today, no acute distress. 11/30: Had BM biopsy yesterday and now in reverse isolation. hgb 7.5, will transfuse as needed. 12/01: seen by bedside, plt remains low, awaiting bone marrow biopsy results. 12/02: No acute distress, no chest pain, no shortness of breath, wbc 2.7, hgb 7.3 , plt 50, will transfuse as needed. S/P BM biopsy 11/29/18, Results pending 12/04: bone marrow biopsy completed, and show myeloblasts, c/w mds/leukemia, requires close surveillance 12/05: hgb 6.9, Had blood transfusion today, plt up trending, no events 12/06: Seen by bedside, overall improved, still has complaint of chest pain, plt trending up 12/07: Given 1 unit prbc, continues to c/o chest pain, seen by cards 12/08: seen by bedside, complains of pain, plt 106, no events 12/09: awake, comfortable, plt trending down at 69, no events 12/11: awake, comfortable, on NC, plt remains low at 70. 12/12: awake, comfortable, plt 65, no events 12/13: seen by bedside, awake , comfortable, pending labs. 12/14: awake, comfortable, hgb 7.9, monitor, will transfuse as needed, plt trending down at 44, Objective Last 24 Hour Vital Signs Date Time Temp Pulse Resp B/P (MAP) Pulse Ox O2 Delivery O2 Flow Rate FiO2 12/14/18 13:41 67 22 99 Nasal Cannula 2.0 28 12/14/18 13:33 69 20 99 Nasal Cannula 3.0 32 12/14/18 12:00 98.8 68 20 110/52 (71) 99 12/14/18 10:12 96.8 12/14/18 09:00 Nasal Cannula 2.0 12/14/18 08:31 70 116/55 12/14/18 08:05 69 16 Nasal Cannula 2.0 28 12/14/18 08:05 Nasal Cannula 2.0 28 12/14/18 08:05 98 Nasal Cannula 2.0 28 12/14/18 08:00 96.8 70 20 116/55 (75) 99 12/14/18 04:00 97.9 63 18 112/53 (72) 99 12/14/18 00:00 99.0 63 18 102/51 (68) 97 12/13/18 21:00 Nasal Cannula 2.0 12/13/18 20:30 Nasal Cannula 2.0 28 12/13/18 20:30 69 16 Nasal Cannula 2.0 28 12/13/18 20:30 97 Nasal Cannula 2.0 28 12/13/18 20:28 63 109/54 12/13/18 20:00 98.0 63 18 109/54 (72) 98 12/13/18 17:17 100 20 98 Nasal Cannula 2.0 28 12/13/18 17:08 101 21 97 Nasal Cannula 3.0 32 12/13/18 16:00 97.9 105 18 110/50 (70) 99 Intake and Output 12/13/18 12/14/18 18:59 06:59 Intake Total 1330 ml Output Total 1800 ml Balance -470 ml Intake Oral 680 ml Other 650 ml Output Urine Total 1800 ml # Voids 3 6 Laboratory Tests 12/14/18 06:24: White Blood Count 5.4, Red Blood Count 3.26L, Hemoglobin 7.9L, Hematocrit 25.0L , Mean Corpuscular Volume 77L, Mean Corpuscular Hemoglobin 24.3L, Mean Corpuscular Hemoglobin Concent 31.5L, Red Cell Distribution Width 23.6H, Platelet Count 44L, Mean Platelet Volume 6.6, Neutrophils (%) (Auto) , Lymphocytes (%) (Auto) , Monocytes (%) (Auto) , Eosinophils (%) (Auto) , Basophils (%) (Auto) , Differential Total Cells Counted 100, Neutrophils % ( Manual) 37L, Lymphocytes % (Manual) 40, Monocytes % (Manual) 19H, Eosinophils % (Manual) 3, Basophils % (Manual) 1, Band Neutrophils 0, Platelet Estimate DecreasedL, Platelet Morphology , Giant Platelets Occasional, Hypochromasia 2+, Anisocytosis 2+, Microcytosis 1+, Schistocytes Occasional, Sodium Level 133L, Potassium Level 4.4, Chloride Level 99, Carbon Dioxide Level 30, Anion Gap 5, Blood Urea Nitrogen 19H, Creatinine 0.9, Estimat Glomerular Filtration Rate , Glucose Level 95, Calcium Level 8.4L Height (Feet): 5 Height (Inches): 5.00 Weight (Pounds): 150 Objective General Appearance: well appearing, nad, alert Head: normocephalic, atraumatic Eyes: b/l eye PERRL, bilateral eye EOMI ENT: hearing grossly normal, normal pharynx Neck: full range of motion, supple, no meningismus Respiratory: chest non-tender, lungs clear, normal breath sounds, NC++ Cardiovascular: regular rate, rhythm, no murmur Gastrointestinal: normal bowel sounds, non tender, no mass, no organomegaly, no bruit, non-distended Musculoskeletal: back normal, normal range of motion Psychiatric: mood/affect normal Skin: warm/dry Jose Alberto España MD Dec 14, 2018 14:30
[2018-12-14] MEDS: fentaNYL Destruction MISC SCH (15:59)
[2018-12-14 16:00] VITALS: BP 115/57
--- NOTE | 2018-12-14 16:59 | Cardiology Progress Note ---
Assessment/Plan Status: stable Assessment/Plan Assessment/Plan Assessment/Plan 1. Atypical chest pain and hx of CABG. Likely due to severe anemia. Ruled out [place]. Nuclear stress test cancelled for severe anemia. Reschedule after pancytopenia is resolved as out patient. On Lipitor and Coreg. Off Aspirin and Plavix for anemia and thrombocytopenia 2. Cardiomyopathy. EF now 55%. On Coreg 12.5 mg bid. Off Lisinopril and Lasix 3. Status post [facility] atrial biventricular defibrillator. Interrogated and showed Nl Fx 4. Severe anemia, S/P PRBC. FU GI. 5. Pancytopenia with Platelet count of 17. Off Aspirin and PLavix S/P platelet transfusion. S/P BM biopsy 11/29/18. S/P PRBC Bone marrow bipsy/aspiration concerning for LEUKEMIA with 8.7% myeloblasts, Chemo by Dr Stock Subjective Cardiovascular: Reports: no symptoms Respiratory: Reports: no symptoms Gastrointestinal/Abdominal: Reports: no symptoms Genitourinary: Reports: no symptoms Subjective Coverage for [place] Objective Last 24 Hour Vital Signs Date Time Temp Pulse Resp B/P (MAP) Pulse Ox O2 Delivery O2 Flow Rate FiO2 12/14/18 16:00 98.6 73 20 115/57 (76) 98 12/14/18 14:14 98.8 12/14/18 13:41 67 22 99 Nasal Cannula 2.0 28 12/14/18 13:33 69 20 99 Nasal Cannula 3.0 32 12/14/18 12:00 98.8 68 20 110/52 (71) 99 12/14/18 09:00 Nasal Cannula 2.0 12/14/18 08:31 70 116/55 12/14/18 08:05 69 16 Nasal Cannula 2.0 28 12/14/18 08:05 Nasal Cannula 2.0 28 12/14/18 08:05 98 Nasal Cannula 2.0 28 12/14/18 08:00 96.8 70 20 116/55 (75) 99 12/14/18 04:00 97.9 63 18 112/53 (72) 99 12/14/18 00:00 99.0 63 18 102/51 (68) 97 12/13/18 21:00 Nasal Cannula 2.0 12/13/18 20:30 Nasal Cannula 2.0 28 12/13/18 20:30 69 16 Nasal Cannula 2.0 28 12/13/18 20:30 97 Nasal Cannula 2.0 28 12/13/18 20:28 63 109/54 12/13/18 20:00 98.0 63 18 109/54 (72) 98 12/13/18 17:17 100 20 98 Nasal Cannula 2.0 28 12/13/18 17:08 101 21 97 Nasal Cannula 3.0 32 General Appearance: no apparent distress, alert EENT: PERRL/EOMI, normal ENT inspection, TMs normal Neck: non-tender, normal alignment, normal inspection Rhythm: NSR Cardiovascular: normal peripheral pulses, normal rate, regular rhythm Respiratory/Chest: chest wall non-tender, lungs clear, normal breath sounds Abdomen: normal bowel sounds, non tender, soft, no organomegaly Extremities: normal range of motion, non-tender, normal inspection 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 grossly normal, no motor/sensory deficits Intake and Output 12/13/18 12/14/18 18:59 06:59 Intake Total 1330 ml Output Total 1800 ml Balance -470 ml Intake Oral 680 ml Other 650 ml Output Urine Total 1800 ml # Voids 3 6 Laboratory Tests Test 12/14/18 06:24 White Blood Count 5.4 K/UL (4.8-10.8) Red Blood Count 3.26 M/UL (4.70-6.10) L Hemoglobin 7.9 G/DL (14.2-18.0) L Hematocrit 25.0 % (42.0-52.0) L Mean Corpuscular Volume 77 FL (80-99) L Mean Corpuscular Hemoglobin 24.3 PG (27.0-31.0) L Mean Corpuscular Hemoglobin Concent 31.5 G/DL (32.0-36.0) L Red Cell Distribution Width 23.6 % (11.6-14.8) H Platelet Count 44 K/UL (150-450) L Mean Platelet Volume 6.6 FL (6.5-10.1) Neutrophils (%) (Auto) % (45.0-75.0) Lymphocytes (%) (Auto) % (20.0-45.0) Monocytes (%) (Auto) % (1.0-10.0) Eosinophils (%) (Auto) % (0.0-3.0) Basophils (%) (Auto) % (0.0-2.0) Differential Total Cells Counted 100 Neutrophils % (Manual) 37 % (45-75) L Lymphocytes % (Manual) 40 % (20-45) Monocytes % (Manual) 19 % (1-10) H Eosinophils % (Manual) 3 % (0-3) Basophils % (Manual) 1 % (0-2) Band Neutrophils 0 % (0-8) Platelet Estimate Decreased L Platelet Morphology Giant Platelets Occasional Hypochromasia 2+ Anisocytosis 2+ Microcytosis 1+ Schistocytes Occasional Sodium Level 133 MMOL/L (136-145) L Potassium Level 4.4 MMOL/L (3.5-5.1) Chloride Level 99 MMOL/L (98-107) Carbon Dioxide Level 30 MMOL/L (21-32) Anion Gap 5 mmol/L (5-15) Blood Urea Nitrogen 19 mg/dL (7-18) H Creatinine 0.9 MG/DL (0.55-1.30) Estimat Glomerular Filtration Rate mL/min (>60) Glucose Level 95 MG/DL (74-106) Calcium Level 8.4 MG/DL (8.5-10.1) L Yair Damon MD Dec 14, 2018 16:59
[2018-12-14 20:00] VITALS: BP 132/60
[2018-12-14] MEDS: Atorvastatin 20mg tab ORAL SCH (20:08)
[2018-12-15 00:21] VITALS: BP 113/50
[2018-12-15] MEDS: Morphine Sulfate 2mg/ml Inj(IV/IM USE ONLY) IM PRN ×4 (03:21→22:42)
[2018-12-15 04:00] VITALS: BP 106/50
[2018-12-15] MEDS: Levothyroxine 25mcg tab ORAL SCH (05:39)
[2018-12-15 07:16] LABS: ANION GAP 4 mmol/L (5-15); BLOOD UREA NITROGEN 17 mg/dL (7-18); CALCIUM 8.2 MG/DL (8.5-10.1); CARBON DIOXIDE 31 MMOL/L (21-32); CHLORIDE 99 MMOL/L (98-107); CREATININE 0.9 MG/DL (0.55-1.30); POTASSIUM 4.2 MMOL/L (3.5-5.1); SODIUM 134 MMOL/L (136-145)
[2018-12-15 08:00] VITALS: BP 106/40
[2018-12-15 08:03] LABS: HEMATOCRIT 20.9 % (42.0-52.0); MEAN CORPUSCULAR VOLUME 75 FL (80-99); PLATELET COUNT 82 K/UL (150-450); RED BLOOD COUNT 2.78 M/UL (4.70-6.10); RED CELL DISTRIBUTION WIDTH 23.4 % (11.6-14.8)
[2018-12-15] MEDS: Docusate 100mg cap ORAL SCH ×2 (08:25→20:53)
[2018-12-15] MEDS: Carvedilol 12.5mg tab ORAL SCH ×2 (08:26→20:53)
--- NOTE | 2018-12-15 11:17 | GI Progress Note ---
Assessment/Plan Problems: (1) History of CVA (cerebrovascular accident) ICD Codes: Z86.73 - Personal history of transient ischemic attack (TIA), and cerebral infarction without residual deficits SNOMED: 882518764 (2) Severe anemia ICD Codes: D64.9 - Anemia, unspecified SNOMED: 639370806 (3) Abdominal pain ICD Codes: R10.9 - Unspecified abdominal pain SNOMED: 28442614 (4) GERD (gastroesophageal reflux disease) ICD Codes: K21.9 - Gastro-esophageal reflux disease without esophagitis SNOMED: 448855605 Status: stable Status Narrative Discussed with Dr. Mcguire. Assessment/Plan SUMMARY OF FINDINGS: 1. Gastritis. 2. A 6 cm hiatal hernia. Refusing a.m. lab draws RECOMMENDATIONS: Follow up biopsy results and treat accordingly. >> Mild chronic gastritis. Negative for H. pylori negative negative for dysplasia or malignancy. BM biopsy>> leukemia>> fu oncology monitor H&H, prn transfusions. OB stool uncollected bowel regime ppi, H2B qhs Zofran as needed fu labs Outpatient hep C treatment dc planning The patient was seen and examined at bedside and all new and available data was reviewed in the patients chart. I agree with the above findings, impression and plan. (Patient seen earlier today. Signature stamp does not reflect patient encounter time.). - Richie Mcguire MD Subjective Subjective Complaint of chest pain Nausea Objective Last 24 Hour Vital Signs Date Time Temp Pulse Resp B/P (MAP) Pulse Ox O2 Delivery O2 Flow Rate FiO2 12/15/18 09:00 Nasal Cannula 2.0 12/15/18 08:26 70 106/40 12/15/18 08:00 97.8 70 20 106/40 (62) 98 12/15/18 04:00 97.6 60 20 106/50 (68) 98 12/15/18 00:21 98.1 65 20 113/50 (71) 100 12/14/18 21:00 Nasal Cannula 2.0 12/14/18 20:36 Nasal Cannula 2.0 28 12/14/18 20:36 97 Nasal Cannula 2.0 28 12/14/18 20:11 68 132/68 12/14/18 20:00 98.7 68 20 132/60 (84) 100 12/14/18 18:20 98.6 12/14/18 16:00 98.6 73 20 115/57 (76) 98 12/14/18 14:14 98.8 12/14/18 13:41 67 22 99 Nasal Cannula 2.0 28 12/14/18 13:33 69 20 99 Nasal Cannula 3.0 32 12/14/18 12:00 98.8 68 20 110/52 (71) 99 Intake and Output 12/14/18 12/15/18 19:00 07:00 Intake Total 1000 ml 200 ml Balance 1000 ml 200 ml Intake Oral 1000 ml 200 ml # Voids 6 3 Laboratory Tests Test 12/15/18 06:00 White Blood Count 5.0 K/UL (4.8-10.8) Red Blood Count 2.78 M/UL (4.70-6.10) L Hemoglobin 7.0 G/DL (14.2-18.0) L Hematocrit 20.9 % (42.0-52.0) L Mean Corpuscular Volume 75 FL (80-99) L Mean Corpuscular Hemoglobin 25.2 PG (27.0-31.0) L Mean Corpuscular Hemoglobin Concent 33.6 G/DL (32.0-36.0) Red Cell Distribution Width 23.4 % (11.6-14.8) H Platelet Count 82 K/UL (150-450) #L Mean Platelet Volume 15.7 FL (6.5-10.1) H Neutrophils (%) (Auto) % (45.0-75.0) Lymphocytes (%) (Auto) % (20.0-45.0) Monocytes (%) (Auto) % (1.0-10.0) Eosinophils (%) (Auto) % (0.0-3.0) Basophils (%) (Auto) % (0.0-2.0) Differential Total Cells Counted 100 Neutrophils % (Manual) 35 % (45-75) L Lymphocytes % (Manual) 27 % (20-45) Monocytes % (Manual) 20 % (1-10) H Eosinophils % (Manual) 2 % (0-3) Basophils % (Manual) 1 % (0-2) Metamyelocytes % 2 % (0-0) H Myelocytes % 3 % (0-0) H Band Neutrophils 10 % (0-8) H Reactive Lymphocytes Occasional Platelet Estimate Decreased L Platelet Morphology Normal Giant Platelets Hypochromasia 2+ Anisocytosis 1+ Microcytosis 1+ Acanthocytes 2+ Schistocytes 1+ Sodium Level 134 MMOL/L (136-145) L Potassium Level 4.2 MMOL/L (3.5-5.1) Chloride Level 99 MMOL/L (98-107) Carbon Dioxide Level 31 MMOL/L (21-32) Anion Gap 4 mmol/L (5-15) L Blood Urea Nitrogen 17 mg/dL (7-18) Creatinine 0.9 MG/DL (0.55-1.30) Estimat Glomerular Filtration Rate mL/min (>60) Glucose Level 97 MG/DL (74-106) Calcium Level 8.2 MG/DL (8.5-10.1) L Height (Feet): 5 Height (Inches): 5.00 Weight (Pounds): 149 General Appearance: WD/WN, no apparent distress, alert, thin Cardiovascular: normal rate Respiratory/Chest: normal breath sounds, no respiratory distress Abdominal Exam: normal bowel sounds, non tender, soft Extremities: normal range of motion, non-tender Jason Gray NP Dec 15, 2018 11:17
[2018-12-15 12:00] VITALS: BP 113/47
--- NOTE | 2018-12-15 13:01 | Pulmonology Progress Note ---
Assessment/Plan Problems: (1) Myeloblastic leukemia (2) Severe thrombocytopenia (3) ACS (acute coronary syndrome) (4) Cardiomyopathy (5) HTN (hypertension) (6) Pacemaker (7) Hypothyroidism (8) CAD (coronary artery disease) Assessment/Plan doing better increase fentNAYL PACH dc all oral analgesics and try Fentanyl Patch doing better early leukemia PLT stable, better today check electrolytes awaiting bone marrow biopsy results. all reviewed symptomatic treatment dc planning Subjective ROS Limited/Unobtainable: No Constitutional: Reports: no symptoms HEENT: Repors: no symptoms Respiratory: Reports: no symptoms Allergies: Coded Allergies: No Known Allergies (Verified , 09/12/10) Objective Last 24 Hour Vital Signs Date Time Temp Pulse Resp B/P (MAP) Pulse Ox O2 Delivery O2 Flow Rate FiO2 12/15/18 09:00 Nasal Cannula 2.0 12/15/18 08:26 70 106/40 12/15/18 08:00 97.8 70 20 106/40 (62) 98 12/15/18 04:00 97.6 60 20 106/50 (68) 98 12/15/18 00:21 98.1 65 20 113/50 (71) 100 12/14/18 21:00 Nasal Cannula 2.0 12/14/18 20:36 Nasal Cannula 2.0 28 12/14/18 20:36 97 Nasal Cannula 2.0 28 12/14/18 20:11 68 132/68 12/14/18 20:00 98.7 68 20 132/60 (84) 100 12/14/18 18:20 98.6 12/14/18 16:00 98.6 73 20 115/57 (76) 98 12/14/18 14:14 98.8 12/14/18 13:41 67 22 99 Nasal Cannula 2.0 28 12/14/18 13:33 69 20 99 Nasal Cannula 3.0 32 Intake and Output 12/14/18 12/15/18 19:00 07:00 Intake Total 1000 ml 200 ml Balance 1000 ml 200 ml Intake Oral 1000 ml 200 ml # Voids 6 3 Objective General Appearance: cachetic Lines, tubes and drains: peripheral HEENT: normocephalic, atraumatic Neck: non-tender, normal alignment Respiratory/Chest: chest wall non-tender, lungs clear Breasts: no masses Cardiovascular/Chest: normal peripheral pulses, normal rate Abdomen: normal bowel sounds, non tender Genitourinary/Rectal: normal genital exam Extremities: normal range of motion Skin Exam: normal pigmentation 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 Laboratory Tests 12/15/18 06:00: White Blood Count 5.0, Red Blood Count 2.78L, Hemoglobin 7.0L, Hematocrit 20.9L , Mean Corpuscular Volume 75L, Mean Corpuscular Hemoglobin 25.2L, Mean Corpuscular Hemoglobin Concent 33.6, Red Cell Distribution Width 23.4H, Platelet Count 82#L, Mean Platelet Volume 15.7H, Neutrophils (%) (Auto) , Lymphocytes (%) (Auto) , Monocytes (%) (Auto) , Eosinophils (%) (Auto) , Basophils (%) (Auto) , Differential Total Cells Counted 100, Neutrophils % ( Manual) 35L, Lymphocytes % (Manual) 27, Monocytes % (Manual) 20H, Eosinophils % (Manual) 2, Basophils % (Manual) 1, Metamyelocytes % 2H, Myelocytes % 3H, Band Neutrophils 10H, Reactive Lymphocytes Occasional, Platelet Estimate DecreasedL, Platelet Morphology Normal, Giant Platelets , Hypochromasia 2+, Anisocytosis 1+ , Microcytosis 1+, Acanthocytes 2+, Schistocytes 1+, Sodium Level 134L, Potassium Level 4.2, Chloride Level 99, Carbon Dioxide Level 31, Anion Gap 4L, Blood Urea Nitrogen 17, Creatinine 0.9, Estimat Glomerular Filtration Rate , Glucose Level 97, Calcium Level 8.2L Current Medications Medications (Trade) Dose Ordered Sig/Scout Route PRN Reason Start Time Stop Time Status Last Admin Dose Admin Acetaminophen (Tylenol) 650 mg Q4H PRN ORAL Mild Pain (Pain Scale 1-3) 11/28/18 17:02 12/18/18 17:01 12/04/18 02:16 Acetaminophen (Tylenol) 650 mg Q4H PRN ORAL fever 11/28/18 17:02 12/18/18 17:01 Acetaminophen (Tylenol) 650 mg Q4H PRN RECTAL Mild Pain (Pain Scale 1-3) 11/28/18 17:02 12/18/18 17:01 Albuterol/ Ipratropium (Albuterol/ Ipratropium) 3 ml Q6H PRN HHN sob 12/11/18 11:12 12/16/18 11:11 12/14/18 13:33 Atorvastatin Calcium (Lipitor) 40 mg BEDTIME ORAL 11/28/18 21:00 12/18/18 20:59 12/14/18 20:08 Bisacodyl (Dulcolax) 10 mg DAILYPRN PRN RECTAL Constipation 11/28/18 17:02 12/28/18 17:01 Carvedilol (Coreg) 12.5 mg EVERY 12 HOURS ORAL 11/28/18 21:00 12/18/18 20:59 12/14/18 20:11 Clonidine HCl (Catapres Tab) 0.1 mg Q2H PRN ORAL For High Blood Pressure 12/06/18 21:15 01/05/19 21:14 12/07/18 08:25 Dextrose (Dextrose 50%) 25 ml Q30M PRN IV Hypoglycemia 11/28/18 17:15 12/18/18 10:14 Dextrose (Dextrose 50%) 50 ml Q30M PRN IV Hypoglycemia 11/28/18 17:15 12/18/18 10:14 Docusate Sodium (Colace) 100 mg EVERY 12 HOURS ORAL 11/28/18 21:00 12/18/18 20:59 12/15/18 08:25 Escitalopram Oxalate (Lexapro) 15 mg DAILY ORAL 11/29/18 09:00 12/24/18 08:59 12/15/18 08:25 Famotidine (Pepcid) 20 mg QHS ORAL 11/30/18 21:00 12/30/18 20:59 12/14/18 20:07 Fentanyl (Duragesic) 1 patch Q72H TDERMAL 12/08/18 16:00 12/15/18 15:59 12/14/18 17:50 Levothyroxine Sodium (Synthroid) 25 mcg Q24H ORAL 11/29/18 06:30 12/19/18 06:29 12/15/18 05:39 Miscellaneous Medication (fentaNYL Destruction) 1 ea Q72H MISC 12/11/18 15:59 01/10/19 15:58 12/14/18 15:59 Morphine Sulfate (Morphine Sulfate) 2 mg Q4H PRN IM For Pain 12/08/18 19:00 12/15/18 18:59 12/15/18 10:11 Naloxone HCl (Narcan) 0.1 mg PRN IV Sedation scale 3 or 4 12/08/18 15:15 01/07/19 15:14 Nitroglycerin (Ntg) 0.4 mg Q5M PRN SL Prn Chest Pain 11/28/18 17:05 12/18/18 10:14 12/11/18 14:18 Ondansetron HCl (Zofran ODT) 4 mg Q4H PRN ORAL Nausea & Vomiting 12/07/18 10:00 01/06/19 09:59 12/12/18 14:21 Pantoprazole (Protonix) 40 mg DAILY ORAL 11/29/18 09:00 12/19/18 08:59 12/15/18 08:25 Polyethylene Glycol (Miralax) 17 gm DAILYPRN PRN ORAL Constipation 11/28/18 17:04 12/28/18 17:03 12/02/18 09:01 Chepe Luong MD Dec 15, 2018 13:01
[2018-12-15] MEDS: Nitroglycerin Subl 0.4mg tab SL PRN (13:40)
[2018-12-15 16:00] VITALS: BP 121/53
--- NOTE | 2018-12-15 18:00 | Cardiac Electrophysiology PN ---
Assessment/Plan Assessment/Plan 1. Atypical chest pain and hx of CABG. Likely due to severe anemia. Ruled out [place]. Nuclear stress test cancelled for severe anemia. Reschedule after pancytopenia is resolved as out patient. On Lipitor and Coreg. Off Aspirin and Plavix for anemia and thrombocytopenia 2. Cardiomyopathy. EF now 55%. On Coreg 12.5 mg bid. Off Lisinopril and Lasix 3. Status post [facility] atrial biventricular defibrillator. Interrogated and showed Nl Fx 4. Severe anemia, S/P PRBC. FU GI. 5. Pancytopenia with Platelet count of 17. Off Aspirin and PLavix S/P platelet transfusion. S/P BM biopsy 11/29/18. S/P PRBC Bone marrow bipsy/aspiration concerning for LEUKEMIA with 8.7% myeloblasts, Chemo by Dr Stock pending DW RN Subjective Subjective No CP or SOB. Awaiting placement Objective Last 24 Hour Vital Signs Date Time Temp Pulse Resp B/P (MAP) Pulse Ox O2 Delivery O2 Flow Rate FiO2 12/15/18 16:00 98.2 72 20 121/53 (75) 99 12/15/18 13:40 125/60 12/15/18 12:00 98.6 66 20 113/47 (69) 99 12/15/18 09:00 Nasal Cannula 2.0 12/15/18 08:26 70 106/40 12/15/18 08:00 97.8 70 20 106/40 (62) 98 12/15/18 04:00 97.6 60 20 106/50 (68) 98 12/15/18 00:21 98.1 65 20 113/50 (71) 100 12/14/18 21:00 Nasal Cannula 2.0 12/14/18 20:36 Nasal Cannula 2.0 28 12/14/18 20:36 97 Nasal Cannula 2.0 28 12/14/18 20:11 68 132/68 12/14/18 20:00 98.7 68 20 132/60 (84) 100 12/14/18 18:20 98.6 Intake and Output 12/14/18 12/15/18 18:59 06:59 Intake Total 1000 ml 200 ml Balance 1000 ml 200 ml Intake Oral 1000 ml 200 ml # Voids 6 3 Laboratory Tests Test 12/15/18 06:00 White Blood Count 5.0 K/UL (4.8-10.8) Red Blood Count 2.78 M/UL (4.70-6.10) L Hemoglobin 7.0 G/DL (14.2-18.0) L Hematocrit 20.9 % (42.0-52.0) L Mean Corpuscular Volume 75 FL (80-99) L Mean Corpuscular Hemoglobin 25.2 PG (27.0-31.0) L Mean Corpuscular Hemoglobin Concent 33.6 G/DL (32.0-36.0) Red Cell Distribution Width 23.4 % (11.6-14.8) H Platelet Count 82 K/UL (150-450) #L Mean Platelet Volume 15.7 FL (6.5-10.1) H Neutrophils (%) (Auto) % (45.0-75.0) Lymphocytes (%) (Auto) % (20.0-45.0) Monocytes (%) (Auto) % (1.0-10.0) Eosinophils (%) (Auto) % (0.0-3.0) Basophils (%) (Auto) % (0.0-2.0) Differential Total Cells Counted 100 Neutrophils % (Manual) 35 % (45-75) L Lymphocytes % (Manual) 27 % (20-45) Monocytes % (Manual) 20 % (1-10) H Eosinophils % (Manual) 2 % (0-3) Basophils % (Manual) 1 % (0-2) Metamyelocytes % 2 % (0-0) H Myelocytes % 3 % (0-0) H Band Neutrophils 10 % (0-8) H Reactive Lymphocytes Occasional Platelet Estimate Decreased L Platelet Morphology Normal Giant Platelets Hypochromasia 2+ Anisocytosis 1+ Microcytosis 1+ Acanthocytes 2+ Schistocytes 1+ Sodium Level 134 MMOL/L (136-145) L Potassium Level 4.2 MMOL/L (3.5-5.1) Chloride Level 99 MMOL/L (98-107) Carbon Dioxide Level 31 MMOL/L (21-32) Anion Gap 4 mmol/L (5-15) L Blood Urea Nitrogen 17 mg/dL (7-18) Creatinine 0.9 MG/DL (0.55-1.30) Estimat Glomerular Filtration Rate mL/min (>60) Glucose Level 97 MG/DL (74-106) Calcium Level 8.2 MG/DL (8.5-10.1) L Objective HEAD AND NECK: No JVD. LUNGS: Coarse rhonchi. CARDIOVASCULAR: Regular S1 and S2 with no gallop or murmur. Sternotomy is intact. ICD in left subclavian. ABDOMEN: Soft. EXTREMITIES: 1+ pitting edema. Satinder Gee MD Dec 15, 2018 18:00
--- NOTE | 2018-12-15 18:58 | Internal Med Progress Note ---
Subjective Date of Service: Dec 15, 2018 Physician Name Nikhil West Attending Physician Abdias Hunter MD Current Medications Medications (Trade) Dose Ordered Sig/Scout Route PRN Reason Start Time Stop Time Status Last Admin Dose Admin Acetaminophen (Tylenol) 650 mg Q4H PRN ORAL Mild Pain (Pain Scale 1-3) 11/28/18 17:02 12/18/18 17:01 12/04/18 02:16 Acetaminophen (Tylenol) 650 mg Q4H PRN ORAL fever 11/28/18 17:02 12/18/18 17:01 Acetaminophen (Tylenol) 650 mg Q4H PRN RECTAL Mild Pain (Pain Scale 1-3) 11/28/18 17:02 12/18/18 17:01 Albuterol/ Ipratropium (Albuterol/ Ipratropium) 3 ml Q6H PRN HHN sob 12/11/18 11:12 12/16/18 11:11 12/14/18 13:33 Atorvastatin Calcium (Lipitor) 40 mg BEDTIME ORAL 11/28/18 21:00 12/18/18 20:59 12/14/18 20:08 Bisacodyl (Dulcolax) 10 mg DAILYPRN PRN RECTAL Constipation 11/28/18 17:02 12/28/18 17:01 Carvedilol (Coreg) 12.5 mg EVERY 12 HOURS ORAL 11/28/18 21:00 12/18/18 20:59 12/14/18 20:11 Clonidine HCl (Catapres Tab) 0.1 mg Q2H PRN ORAL For High Blood Pressure 12/06/18 21:15 01/05/19 21:14 12/07/18 08:25 Dextrose (Dextrose 50%) 25 ml Q30M PRN IV Hypoglycemia 11/28/18 17:15 12/18/18 10:14 Dextrose (Dextrose 50%) 50 ml Q30M PRN IV Hypoglycemia 11/28/18 17:15 12/18/18 10:14 Docusate Sodium (Colace) 100 mg EVERY 12 HOURS ORAL 11/28/18 21:00 12/18/18 20:59 12/15/18 08:25 Escitalopram Oxalate (Lexapro) 15 mg DAILY ORAL 11/29/18 09:00 12/24/18 08:59 12/15/18 08:25 Famotidine (Pepcid) 20 mg QHS ORAL 11/30/18 21:00 12/30/18 20:59 12/14/18 20:07 Levothyroxine Sodium (Synthroid) 25 mcg Q24H ORAL 11/29/18 06:30 12/19/18 06:29 12/15/18 05:39 Miscellaneous Medication (fentaNYL Destruction) 1 ea Q72H MISC 12/11/18 15:59 01/10/19 15:58 12/14/18 15:59 Morphine Sulfate (Morphine Sulfate) 2 mg Q4H PRN IM For Pain 12/08/18 19:00 12/15/18 18:59 12/15/18 14:33 Naloxone HCl (Narcan) 0.1 mg PRN IV Sedation scale 3 or 4 12/08/18 15:15 01/07/19 15:14 Nitroglycerin (Ntg) 0.4 mg Q5M PRN SL Prn Chest Pain 11/28/18 17:05 12/18/18 10:14 12/15/18 13:40 Ondansetron HCl (Zofran ODT) 4 mg Q4H PRN ORAL Nausea & Vomiting 12/07/18 10:00 01/06/19 09:59 12/12/18 14:21 Pantoprazole (Protonix) 40 mg DAILY ORAL 11/29/18 09:00 12/19/18 08:59 12/15/18 08:25 Polyethylene Glycol (Miralax) 17 gm DAILYPRN PRN ORAL Constipation 11/28/18 17:04 12/28/18 17:03 12/02/18 09:01 Allergies: Coded Allergies: No Known Allergies (Verified , 09/12/10) ROS Limited/Unobtainable: Yes Subjective 78 YO M admitted with chest pain. Now pancytopenia and UTI. Cover for Int Joseph- Dr Hunter. Objective Last Vital Signs Date Time Temp Pulse Resp B/P (MAP) Pulse Ox O2 Delivery O2 Flow Rate FiO2 12/15/18 16:00 98.2 72 20 121/53 (75) 99 12/15/18 09:00 Nasal Cannula 2.0 12/14/18 20:36 28 Laboratory Tests Test 12/15/18 06:00 White Blood Count 5.0 K/UL (4.8-10.8) Red Blood Count 2.78 M/UL (4.70-6.10) L Hemoglobin 7.0 G/DL (14.2-18.0) L Hematocrit 20.9 % (42.0-52.0) L Mean Corpuscular Volume 75 FL (80-99) L Mean Corpuscular Hemoglobin 25.2 PG (27.0-31.0) L Mean Corpuscular Hemoglobin Concent 33.6 G/DL (32.0-36.0) Red Cell Distribution Width 23.4 % (11.6-14.8) H Platelet Count 82 K/UL (150-450) #L Mean Platelet Volume 15.7 FL (6.5-10.1) H Neutrophils (%) (Auto) % (45.0-75.0) Lymphocytes (%) (Auto) % (20.0-45.0) Monocytes (%) (Auto) % (1.0-10.0) Eosinophils (%) (Auto) % (0.0-3.0) Basophils (%) (Auto) % (0.0-2.0) Differential Total Cells Counted 100 Neutrophils % (Manual) 35 % (45-75) L Lymphocytes % (Manual) 27 % (20-45) Monocytes % (Manual) 20 % (1-10) H Eosinophils % (Manual) 2 % (0-3) Basophils % (Manual) 1 % (0-2) Metamyelocytes % 2 % (0-0) H Myelocytes % 3 % (0-0) H Band Neutrophils 10 % (0-8) H Reactive Lymphocytes Occasional Platelet Estimate Decreased L Platelet Morphology Normal Giant Platelets Hypochromasia 2+ Anisocytosis 1+ Microcytosis 1+ Acanthocytes 2+ Schistocytes 1+ Sodium Level 134 MMOL/L (136-145) L Potassium Level 4.2 MMOL/L (3.5-5.1) Chloride Level 99 MMOL/L (98-107) Carbon Dioxide Level 31 MMOL/L (21-32) Anion Gap 4 mmol/L (5-15) L Blood Urea Nitrogen 17 mg/dL (7-18) Creatinine 0.9 MG/DL (0.55-1.30) Estimat Glomerular Filtration Rate mL/min (>60) Glucose Level 97 MG/DL (74-106) Calcium Level 8.2 MG/DL (8.5-10.1) L Intake and Output 12/14/18 12/15/18 18:59 06:59 Intake Total 1000 ml 200 ml Balance 1000 ml 200 ml Intake Oral 1000 ml 200 ml # Voids 6 3 Objective PHYSICAL EXAMINATION: GENERAL: The patient awake, responsive, no acute distress. HEAD AND NECK: Pupils are equal and reactive to light. Extraocular movements are intact. Neck was supple. No JVD LUNGS: Good air entry. No wheeze or rales. HEART: S1, S2. Distant heart sounds. No murmur or gallops. Pacemaker in left-sided chest wall. ABDOMEN: Soft, nondistended, nontender. EXTREMITIES: No cyanosis, clubbing, edema. Varicose veins, bilateral lower extremities. NEUROLOGIC: Cranial nerves II through XII grossly intact. Motor is 5/5 in all extremities. Gait is intact. RECTAL: Refused and deferred. GENITOURINARY: Refused and deferred. PSYCHIATRIC: Mood and affect is depressed. Assessment/Plan Assessment/Plan ASSESSMENT: 1. Chest pain, possible acute coronary syndrome. 2. Hypertension. 3. Dyslipidemia. 4. Congestive heart failure. 5. Coronary artery disease. 6. Sick sinus syndrome, status pacemaker. 7. UTI. 8. Pancytopenia; S/P transfusion 4 units PRBC total-Severe anemia, Thrombocytopenia and leukopenia-?leukemia? see onc note. PLAN: Admit the patient to telemetry. Discussed case with Dr. Gee from Cardiology Electrophysiology. Await cardiac nuclear stress test-outpatient Dr. Luong, Pulmonary Critical Care. Urine cult=E. Coli. S/P Rocephin. DVT prophylaxis, heparin subcutaneous. Code status, Full Code. The patient is expected to be in the hospital greater than 2 days Discharge paln: [facility] S/P transfusion 2 units PRBC on 11/19/18 See Hematology consult-?acute myelocytic leukemia? Discharge to [facility] Nephrology consult Nikhil West MD Dec 15, 2018 18:58
[2018-12-15 20:00] VITALS: BP 140/53
--- NOTE | 2018-12-15 20:32 | General Progress Note ---
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 --> Hep panel and HIV negative, hep C++++ --> US abd to evaluate for cirrhosis and hsm reviewed --> Peripheral smear ordered to evaluate for blasts /schistocytes --> abx and other meds have been reviewed --> ok for ppx if plt >50k w/ either heparin or lovenox --> Transfuse if Plt < 20k and fever, or if Plt < 10k without fever --->Plt trend 70-->65-->44 # Anemia of chronic disease, some minor hemolysis is noted --> Anemia workup has been reviewed,bertha test is negative, retic reviewed --> Hgb goal >7. Transfuse prn. --> Epogen or iron at this time is not particularly indicated --> Medications have been reviewed --> Hgb trend: 9-->8.7-->7.9-->7 # Reticulocytosis with elevated bilirubin that is indirect --> reviewed direct and indirect bilis again, trend could have liver disease --> liver US shows no significant cirrhosis --> evaluate as needed with gi team, recs apprecaited #. Chest pain, possible acute coronary syndrome. --> cards recs appreciated as well as pulm --> stress test prn # Hypertension. # Dyslipidemia. # Congestive heart failure. # Coronary artery disease. # Sick sinus syndrome, status pacemaker. # Acute E. coli UTI. # Hep C+++ needs op management The timing of this note does not necessarily reflect the time of the patient was seen. Greatly appreciate consultation! Subjective Constitutional: Denies: no symptoms, chills, diaphoresis, fever, malaise, weakness, other Neurologic/Psychiatric: Denies: no symptoms, anxiety, depressed, emotional problems, headache, numbness, paresthesia, pre-existing deficit, seizure, tingling, tremors, weakness, other Allergies: Coded Allergies: No Known Allergies (Verified , 09/12/10) Subjective 11/27: no events to report, no f/c 11/28: seen by bedside, plt 65, plan for EGD and bone marrow biopsy tomorrow 11/29: BM biopsy today, no acute distress. 11/30: Had BM biopsy yesterday and now in reverse isolation. hgb 7.5, will transfuse as needed. 12/01: seen by bedside, plt remains low, awaiting bone marrow biopsy results. 12/02: No acute distress, no chest pain, no shortness of breath, wbc 2.7, hgb 7.3 , plt 50, will transfuse as needed. S/P BM biopsy 11/29/18, Results pending 12/04: bone marrow biopsy completed, and show myeloblasts, c/w mds/leukemia, requires close surveillance 12/05: hgb 6.9, Had blood transfusion today, plt up trending, no events 12/06: Seen by bedside, overall improved, still has complaint of chest pain, plt trending up 12/07: Given 1 unit prbc, continues to c/o chest pain, seen by cards 12/08: seen by bedside, complains of pain, plt 106, no events 12/09: awake, comfortable, plt trending down at 69, no events 12/11: awake, comfortable, on NC, plt remains low at 70. 12/12: awake, comfortable, plt 65, no events 12/13: seen by bedside, awake , comfortable, pending labs. 12/14: awake, comfortable, hgb 7.9, monitor, will transfuse as needed, plt trending down at 44, 12/15: seen by bedside, awake, comfortable, hgb 7, will transfuse as needed, plt 82. Objective Last 24 Hour Vital Signs Date Time Temp Pulse Resp B/P (MAP) Pulse Ox O2 Delivery O2 Flow Rate FiO2 12/15/18 16:00 98.2 72 20 121/53 (75) 99 12/15/18 13:40 125/60 12/15/18 12:00 98.6 66 20 113/47 (69) 99 12/15/18 09:00 Nasal Cannula 2.0 12/15/18 08:26 70 106/40 12/15/18 08:00 97.8 70 20 106/40 (62) 98 12/15/18 04:00 97.6 60 20 106/50 (68) 98 12/15/18 00:21 98.1 65 20 113/50 (71) 100 12/14/18 21:00 Nasal Cannula 2.0 12/14/18 20:36 Nasal Cannula 2.0 28 12/14/18 20:36 97 Nasal Cannula 2.0 28 Intake and Output 12/14/18 12/15/18 18:59 06:59 Intake Total 1000 ml 200 ml Balance 1000 ml 200 ml Intake Oral 1000 ml 200 ml # Voids 6 3 Laboratory Tests 12/15/18 06:00: White Blood Count 5.0, Red Blood Count 2.78L, Hemoglobin 7.0L, Hematocrit 20.9L , Mean Corpuscular Volume 75L, Mean Corpuscular Hemoglobin 25.2L, Mean Corpuscular Hemoglobin Concent 33.6, Red Cell Distribution Width 23.4H, Platelet Count 82#L, Mean Platelet Volume 15.7H, Neutrophils (%) (Auto) , Lymphocytes (%) (Auto) , Monocytes (%) (Auto) , Eosinophils (%) (Auto) , Basophils (%) (Auto) , Differential Total Cells Counted 100, Neutrophils % ( Manual) 35L, Lymphocytes % (Manual) 27, Monocytes % (Manual) 20H, Eosinophils % (Manual) 2, Basophils % (Manual) 1, Metamyelocytes % 2H, Myelocytes % 3H, Band Neutrophils 10H, Reactive Lymphocytes Occasional, Platelet Estimate DecreasedL, Platelet Morphology Normal, Giant Platelets , Hypochromasia 2+, Anisocytosis 1+ , Microcytosis 1+, Acanthocytes 2+, Schistocytes 1+, Sodium Level 134L, Potassium Level 4.2, Chloride Level 99, Carbon Dioxide Level 31, Anion Gap 4L, Blood Urea Nitrogen 17, Creatinine 0.9, Estimat Glomerular Filtration Rate , Glucose Level 97, Calcium Level 8.2L Height (Feet): 5 Height (Inches): 5.00 Weight (Pounds): 149 Objective General Appearance: well appearing, nad, alert Head: normocephalic, atraumatic Eyes: b/l eye PERRL, bilateral eye EOMI ENT: hearing grossly normal, normal pharynx Neck: full range of motion, supple, no meningismus Respiratory: chest non-tender, lungs clear, normal breath sounds, NC++ Cardiovascular: regular rate, rhythm, no murmur Gastrointestinal: normal bowel sounds, non tender, no mass, no organomegaly, no bruit, non-distended Musculoskeletal: back normal, normal range of motion Psychiatric: mood/affect normal Skin: warm/dry Jose Alberto España MD Dec 15, 2018 20:32
[2018-12-15] MEDS: Atorvastatin 20mg tab ORAL SCH (20:56)
[2018-12-16] VITALS: BP 131/62
[2018-12-16 04:00] VITALS: BP 132/61
[2018-12-16] MEDS: Morphine Sulfate 2mg/ml Inj(IV/IM USE ONLY) IM PRN ×4 (04:11→21:08)
[2018-12-16] MEDS: Levothyroxine 25mcg tab ORAL SCH (06:40)
[2018-12-16 07:21] LABS: ANION GAP 3 mmol/L (5-15); BLOOD UREA NITROGEN 17 mg/dL (7-18); CALCIUM 8.4 MG/DL (8.5-10.1); CARBON DIOXIDE 29 MMOL/L (21-32); CHLORIDE 100 MMOL/L (98-107); CREATININE 0.9 MG/DL (0.55-1.30); SODIUM 132 MMOL/L (136-145)
[2018-12-16 07:46] LABS: HEMATOCRIT 22.9 % (42.0-52.0); HEMOGLOBIN 7.6 G/DL (14.2-18.0); MEAN CORPUSCULAR VOLUME 76 FL (80-99); PLATELET COUNT 86 K/UL (150-450); RED BLOOD COUNT 3.04 M/UL (4.70-6.10); RED CELL DISTRIBUTION WIDTH 23.9 % (11.6-14.8); WHITE BLOOD COUNT 5.8 K/UL (4.8-10.8)
[2018-12-16 08:00] VITALS: BP 127/63
[2018-12-16] MEDS: Carvedilol 12.5mg tab ORAL SCH ×2 (09:34→20:58)
[2018-12-16] MEDS: Docusate 100mg cap ORAL SCH ×2 (09:34→20:58)
[2018-12-16] MEDS: Nitroglycerin Subl 0.4mg tab SL PRN (09:53)
--- NOTE | 2018-12-16 10:10 | General Progress Note ---
Assessment/Plan Problem List: (1) History of CVA (cerebrovascular accident) ICD Codes: Z86.73 - Personal history of transient ischemic attack (TIA), and cerebral infarction without residual deficits SNOMED: 150565268 (2) Cardiomyopathy ICD Codes: I42.9 - Cardiomyopathy, unspecified SNOMED: 15347994 (3) Hypothyroidism ICD Codes: E03.9 - Hypothyroidism, unspecified SNOMED: 36968476 (4) HTN (hypertension) ICD Codes: I10 - Essential (primary) hypertension SNOMED: 75330861 (5) Severe thrombocytopenia ICD Codes: D69.6 - Thrombocytopenia, unspecified SNOMED: 636735889 (6) Anxiety disorder ICD Codes: F41.9 - Anxiety disorder, unspecified SNOMED: 520116971 (7) Severe anemia ICD Codes: D64.9 - Anemia, unspecified SNOMED: 599554560 (8) GERD (gastroesophageal reflux disease) ICD Codes: K21.9 - Gastro-esophageal reflux disease without esophagitis SNOMED: 222793842 (9) Pacemaker ICD Codes: Z95.0 - Presence of cardiac pacemaker SNOMED: 84100373, 182081326, 387024190 Assessment/Plan SUMMARY OF FINDINGS: 1. Gastritis. 2. A 6 cm hiatal hernia. Refusing a.m. lab draws RECOMMENDATIONS: Follow up biopsy results and treat accordingly. >> Mild chronic gastritis. Negative for H. pylori negative negative for dysplasia or malignancy. BM biopsy>> leukemia>> fu oncology monitor H&H, prn transfusions. OB stool uncollected bowel regime ppi, H2B qhs Zofran as needed fu labs Outpatient hep C treatment dc planning Subjective ROS Limited/Unobtainable: Yes Allergies: Coded Allergies: No Known Allergies (Verified , 09/12/10) Objective Last 24 Hour Vital Signs Date Time Temp Pulse Resp B/P (MAP) Pulse Ox O2 Delivery O2 Flow Rate FiO2 12/16/18 09:53 127/63 12/16/18 09:34 70 127/63 12/16/18 09:00 Nasal Cannula 2.0 12/16/18 08:00 98.8 70 18 127/63 (84) 98 12/16/18 04:00 98.6 68 18 132/61 (84) 100 12/16/18 00:00 98.9 73 18 131/62 (85) 96 12/15/18 21:00 Nasal Cannula 2.0 12/15/18 20:53 75 140/53 12/15/18 20:00 97.0 75 18 140/53 (82) 99 12/15/18 16:00 98.2 72 20 121/53 (75) 99 12/15/18 13:40 125/60 12/15/18 12:00 98.6 66 20 113/47 (69) 99 Intake and Output 12/15/18 12/16/18 19:00 07:00 Intake Total 150 ml 240 ml Output Total 300 ml Balance 150 ml -60 ml Intake Oral 150 ml 240 ml Output Urine Total 300 ml # Voids 6 Laboratory Tests 12/16/18 06:10: White Blood Count 5.8, Red Blood Count 3.04L, Hemoglobin 7.6L, Hematocrit 22.9L , Mean Corpuscular Volume 76L, Mean Corpuscular Hemoglobin 25.2L, Mean Corpuscular Hemoglobin Concent 33.3, Red Cell Distribution Width 23.9H, Platelet Count 86L, Mean Platelet Volume 12.9H, Neutrophils (%) (Auto) , Lymphocytes (%) (Auto) , Monocytes (%) (Auto) , Eosinophils (%) (Auto) , Basophils (%) (Auto) , Differential Total Cells Counted 100, Neutrophils % ( Manual) 32L, Lymphocytes % (Manual) 42, Monocytes % (Manual) 13H, Eosinophils % (Manual) 2, Basophils % (Manual) 0, Metamyelocytes % 1H, Myelocytes % 5H, Blast Cells % 2*H, Band Neutrophils 3, Platelet Estimate DecreasedL, Platelet Morphology See comment, Giant Platelets Occasional, Anisocytosis 3+, Microcytosis 2+, Sodium Level 132L, Potassium Level 4.0, Chloride Level 100, Carbon Dioxide Level 29, Anion Gap 3L, Blood Urea Nitrogen 17, Creatinine 0.9, Estimat Glomerular Filtration Rate , Glucose Level 96, Calcium Level 8.4L Height (Feet): 5 Height (Inches): 5.00 Weight (Pounds): 149 General Appearance: no apparent distress EENT: normal ENT inspection Neck: supple Cardiovascular: normal rate Respiratory/Chest: decreased breath sounds Abdomen: normal bowel sounds, non tender, soft Extremities: non-tender Richie Mcguire MD Dec 16, 2018 10:10
--- NOTE | 2018-12-16 11:38 | Cardiac Electrophysiology PN ---
Assessment/Plan Assessment/Plan 1. Atypical chest pain and hx of CABG. Likely due to severe anemia. Ruled out [place]. Nuclear stress test cancelled for severe anemia. Reschedule after pancytopenia is resolved as out patient. On Lipitor and Coreg. Off Aspirin and Plavix for anemia and thrombocytopenia 2. Cardiomyopathy. EF now 55%. On Coreg 12.5 mg bid. Off Lisinopril and Lasix 3. Status post [facility] atrial biventricular defibrillator. Interrogated and showed Nl Fx 4. Severe anemia, S/P PRBC. FU GI. 5. Pancytopenia with Platelet count of 17. Off Aspirin and PLavix S/P platelet transfusion. S/P BM biopsy 11/29/18. S/P PRBC Bone marrow bipsy/aspiration, LEUKEMIA with 8.7% myeloblasts, Chemo by Dr Stock pending DW RN Subjective Subjective No CP or SOB. Has generalized body ache. Objective Last 24 Hour Vital Signs Date Time Temp Pulse Resp B/P (MAP) Pulse Ox O2 Delivery O2 Flow Rate FiO2 12/16/18 09:53 127/63 12/16/18 09:34 70 127/63 12/16/18 09:00 Nasal Cannula 2.0 12/16/18 08:00 98.8 70 18 127/63 (84) 98 12/16/18 04:00 98.6 68 18 132/61 (84) 100 12/16/18 00:00 98.9 73 18 131/62 (85) 96 12/15/18 21:00 Nasal Cannula 2.0 12/15/18 20:53 75 140/53 12/15/18 20:00 97.0 75 18 140/53 (82) 99 12/15/18 16:00 98.2 72 20 121/53 (75) 99 12/15/18 13:40 125/60 12/15/18 12:00 98.6 66 20 113/47 (69) 99 Intake and Output 12/15/18 12/16/18 19:00 07:00 Intake Total 150 ml 240 ml Output Total 300 ml Balance 150 ml -60 ml Intake Oral 150 ml 240 ml Output Urine Total 300 ml # Voids 6 Laboratory Tests Test 12/16/18 06:10 White Blood Count 5.8 K/UL (4.8-10.8) Red Blood Count 3.04 M/UL (4.70-6.10) L Hemoglobin 7.6 G/DL (14.2-18.0) L Hematocrit 22.9 % (42.0-52.0) L Mean Corpuscular Volume 76 FL (80-99) L Mean Corpuscular Hemoglobin 25.2 PG (27.0-31.0) L Mean Corpuscular Hemoglobin Concent 33.3 G/DL (32.0-36.0) Red Cell Distribution Width 23.9 % (11.6-14.8) H Platelet Count 86 K/UL (150-450) L Mean Platelet Volume 12.9 FL (6.5-10.1) H Neutrophils (%) (Auto) % (45.0-75.0) Lymphocytes (%) (Auto) % (20.0-45.0) Monocytes (%) (Auto) % (1.0-10.0) Eosinophils (%) (Auto) % (0.0-3.0) Basophils (%) (Auto) % (0.0-2.0) Differential Total Cells Counted 100 Neutrophils % (Manual) 32 % (45-75) L Lymphocytes % (Manual) 42 % (20-45) Monocytes % (Manual) 13 % (1-10) H Eosinophils % (Manual) 2 % (0-3) Basophils % (Manual) 0 % (0-2) Metamyelocytes % 1 % (0-0) H Myelocytes % 5 % (0-0) H Blast Cells % 2 % (0-0) *H Band Neutrophils 3 % (0-8) Platelet Estimate Decreased L Platelet Morphology See comment Giant Platelets Occasional Anisocytosis 3+ Microcytosis 2+ Sodium Level 132 MMOL/L (136-145) L Potassium Level 4.0 MMOL/L (3.5-5.1) Chloride Level 100 MMOL/L (98-107) Carbon Dioxide Level 29 MMOL/L (21-32) Anion Gap 3 mmol/L (5-15) L Blood Urea Nitrogen 17 mg/dL (7-18) Creatinine 0.9 MG/DL (0.55-1.30) Estimat Glomerular Filtration Rate mL/min (>60) Glucose Level 96 MG/DL (74-106) Calcium Level 8.4 MG/DL (8.5-10.1) L Objective HEAD AND NECK: No JVD. LUNGS: Coarse rhonchi. CARDIOVASCULAR: Regular S1 and S2 with no gallop or murmur. Sternotomy is intact. ICD in left subclavian. ABDOMEN: Soft. EXTREMITIES: 1+ pitting edema. Satinder Gee MD Dec 16, 2018 11:38
[2018-12-16 12:00] VITALS: BP 120/59
--- NOTE | 2018-12-16 15:08 | Pulmonology Progress Note ---
Assessment/Plan Problems: (1) Myeloblastic leukemia (2) Severe thrombocytopenia (3) ACS (acute coronary syndrome) (4) Cardiomyopathy (5) HTN (hypertension) (6) Pacemaker (7) Hypothyroidism (8) CAD (coronary artery disease) Assessment/Plan doing better, still nauseous increase fentNAYL PACH dc all oral analgesics and try Fentanyl Patch doing better early leukemia PLT stable, better today check electrolytes awaiting bone marrow biopsy results. all reviewed symptomatic treatment dc planning Subjective ROS Limited/Unobtainable: No Allergies: Coded Allergies: No Known Allergies (Verified , 09/12/10) Objective Last 24 Hour Vital Signs Date Time Temp Pulse Resp B/P (MAP) Pulse Ox O2 Delivery O2 Flow Rate FiO2 12/16/18 12:00 99.8 67 20 120/59 (79) 96 12/16/18 11:38 98.8 12/16/18 09:53 127/63 12/16/18 09:34 70 127/63 12/16/18 09:00 Nasal Cannula 2.0 12/16/18 08:00 98.8 70 18 127/63 (84) 98 12/16/18 04:00 98.6 68 18 132/61 (84) 100 12/16/18 00:00 98.9 73 18 131/62 (85) 96 12/15/18 21:00 Nasal Cannula 2.0 12/15/18 20:53 75 140/53 12/15/18 20:00 97.0 75 18 140/53 (82) 99 12/15/18 16:00 98.2 72 20 121/53 (75) 99 Intake and Output 12/15/18 12/16/18 19:00 07:00 Intake Total 150 ml 240 ml Output Total 300 ml Balance 150 ml -60 ml Intake Oral 150 ml 240 ml Output Urine Total 300 ml # Voids 6 Objective General Appearance: cachetic Lines, tubes and drains: peripheral HEENT: normocephalic, atraumatic Neck: non-tender, normal alignment Respiratory/Chest: chest wall non-tender, lungs clear Breasts: no masses Cardiovascular/Chest: normal peripheral pulses, normal rate Abdomen: normal bowel sounds, non tender Genitourinary/Rectal: normal genital exam Extremities: normal range of motion Skin Exam: normal pigmentation 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 Laboratory Tests 12/16/18 06:10: White Blood Count 5.8, Red Blood Count 3.04L, Hemoglobin 7.6L, Hematocrit 22.9L , Mean Corpuscular Volume 76L, Mean Corpuscular Hemoglobin 25.2L, Mean Corpuscular Hemoglobin Concent 33.3, Red Cell Distribution Width 23.9H, Platelet Count 86L, Mean Platelet Volume 12.9H, Neutrophils (%) (Auto) , Lymphocytes (%) (Auto) , Monocytes (%) (Auto) , Eosinophils (%) (Auto) , Basophils (%) (Auto) , Differential Total Cells Counted 100, Neutrophils % ( Manual) 32L, Lymphocytes % (Manual) 42, Monocytes % (Manual) 13H, Eosinophils % (Manual) 2, Basophils % (Manual) 0, Metamyelocytes % 1H, Myelocytes % 5H, Blast Cells % 2*H, Band Neutrophils 3, Platelet Estimate DecreasedL, Platelet Morphology See comment, Giant Platelets Occasional, Anisocytosis 3+, Microcytosis 2+, Sodium Level 132L, Potassium Level 4.0, Chloride Level 100, Carbon Dioxide Level 29, Anion Gap 3L, Blood Urea Nitrogen 17, Creatinine 0.9, Estimat Glomerular Filtration Rate , Glucose Level 96, Calcium Level 8.4L Current Medications Medications (Trade) Dose Ordered Sig/Scout Route PRN Reason Start Time Stop Time Status Last Admin Dose Admin Acetaminophen (Tylenol) 650 mg Q4H PRN ORAL Mild Pain (Pain Scale 1-3) 11/28/18 17:02 12/18/18 17:01 12/04/18 02:16 Acetaminophen (Tylenol) 650 mg Q4H PRN ORAL fever 11/28/18 17:02 12/18/18 17:01 Acetaminophen (Tylenol) 650 mg Q4H PRN RECTAL Mild Pain (Pain Scale 1-3) 11/28/18 17:02 12/18/18 17:01 Atorvastatin Calcium (Lipitor) 40 mg BEDTIME ORAL 11/28/18 21:00 12/18/18 20:59 12/15/18 20:56 Bisacodyl (Dulcolax) 10 mg DAILYPRN PRN RECTAL Constipation 11/28/18 17:02 12/28/18 17:01 Carvedilol (Coreg) 12.5 mg EVERY 12 HOURS ORAL 11/28/18 21:00 12/18/18 20:59 12/16/18 09:34 Clonidine HCl (Catapres Tab) 0.1 mg Q2H PRN ORAL For High Blood Pressure 12/06/18 21:15 01/05/19 21:14 12/07/18 08:25 Dextrose (Dextrose 50%) 25 ml Q30M PRN IV Hypoglycemia 11/28/18 17:15 12/18/18 10:14 Dextrose (Dextrose 50%) 50 ml Q30M PRN IV Hypoglycemia 11/28/18 17:15 12/18/18 10:14 Docusate Sodium (Colace) 100 mg EVERY 12 HOURS ORAL 11/28/18 21:00 12/18/18 20:59 12/16/18 09:34 Escitalopram Oxalate (Lexapro) 15 mg DAILY ORAL 11/29/18 09:00 12/24/18 08:59 12/16/18 09:33 Famotidine (Pepcid) 20 mg QHS ORAL 11/30/18 21:00 12/30/18 20:59 12/15/18 20:56 Levothyroxine Sodium (Synthroid) 25 mcg Q24H ORAL 11/29/18 06:30 12/19/18 06:29 12/16/18 06:40 Miscellaneous Medication (fentaNYL Destruction) 1 ea Q72H MISC 12/11/18 15:59 01/10/19 15:58 12/14/18 15:59 Morphine Sulfate (Morphine Sulfate) 2 mg Q4H PRN IM For Pain 12/15/18 22:30 12/22/18 22:29 12/16/18 11:08 Naloxone HCl (Narcan) 0.1 mg PRN IV Sedation scale 3 or 4 12/08/18 15:15 01/07/19 15:14 Nitroglycerin (Ntg) 0.4 mg Q5M PRN SL Prn Chest Pain 11/28/18 17:05 12/18/18 10:14 12/16/18 09:53 Ondansetron HCl (Zofran ODT) 4 mg Q4H PRN ORAL Nausea & Vomiting 12/07/18 10:00 01/06/19 09:59 12/12/18 14:21 Pantoprazole (Protonix) 40 mg DAILY ORAL 11/29/18 09:00 12/19/18 08:59 12/16/18 09:33 Polyethylene Glycol (Miralax) 17 gm DAILYPRN PRN ORAL Constipation 11/28/18 17:04 12/28/18 17:03 12/02/18 09:01 Chepe Luong MD Dec 16, 2018 15:08
[2018-12-16 16:00] VITALS: BP 118/53
--- NOTE | 2018-12-16 18:37 | Internal Med Progress Note ---
Subjective Physician Name Abdias Hunter Attending Physician Abdias Hunter MD Current Medications Medications (Trade) Dose Ordered Sig/Scout Route PRN Reason Start Time Stop Time Status Last Admin Dose Admin Acetaminophen (Tylenol) 650 mg Q4H PRN ORAL Mild Pain (Pain Scale 1-3) 11/28/18 17:02 12/18/18 17:01 12/04/18 02:16 Acetaminophen (Tylenol) 650 mg Q4H PRN ORAL fever 11/28/18 17:02 12/18/18 17:01 Acetaminophen (Tylenol) 650 mg Q4H PRN RECTAL Mild Pain (Pain Scale 1-3) 11/28/18 17:02 12/18/18 17:01 Atorvastatin Calcium (Lipitor) 40 mg BEDTIME ORAL 11/28/18 21:00 12/18/18 20:59 12/15/18 20:56 Bisacodyl (Dulcolax) 10 mg DAILYPRN PRN RECTAL Constipation 11/28/18 17:02 12/28/18 17:01 Carvedilol (Coreg) 12.5 mg EVERY 12 HOURS ORAL 11/28/18 21:00 12/18/18 20:59 12/16/18 09:34 Clonidine HCl (Catapres Tab) 0.1 mg Q2H PRN ORAL For High Blood Pressure 12/06/18 21:15 01/05/19 21:14 12/07/18 08:25 Dextrose (Dextrose 50%) 25 ml Q30M PRN IV Hypoglycemia 11/28/18 17:15 12/18/18 10:14 Dextrose (Dextrose 50%) 50 ml Q30M PRN IV Hypoglycemia 11/28/18 17:15 12/18/18 10:14 Docusate Sodium (Colace) 100 mg EVERY 12 HOURS ORAL 11/28/18 21:00 12/18/18 20:59 12/16/18 09:34 Escitalopram Oxalate (Lexapro) 15 mg DAILY ORAL 11/29/18 09:00 12/24/18 08:59 12/16/18 09:33 Famotidine (Pepcid) 20 mg QHS ORAL 11/30/18 21:00 12/30/18 20:59 12/15/18 20:56 Levothyroxine Sodium (Synthroid) 25 mcg Q24H ORAL 11/29/18 06:30 12/19/18 06:29 12/16/18 06:40 Miscellaneous Medication (fentaNYL Destruction) 1 ea Q72H MISC 12/11/18 15:59 01/10/19 15:58 12/14/18 15:59 Morphine Sulfate (Morphine Sulfate) 2 mg Q4H PRN IM For Pain 12/15/18 22:30 12/22/18 22:29 12/16/18 17:16 Naloxone HCl (Narcan) 0.1 mg PRN IV Sedation scale 3 or 4 12/08/18 15:15 01/07/19 15:14 Nitroglycerin (Ntg) 0.4 mg Q5M PRN SL Prn Chest Pain 11/28/18 17:05 12/18/18 10:14 12/16/18 09:53 Ondansetron HCl (Zofran ODT) 4 mg Q4H PRN ORAL Nausea & Vomiting 12/07/18 10:00 01/06/19 09:59 12/16/18 15:20 Pantoprazole (Protonix) 40 mg DAILY ORAL 11/29/18 09:00 12/19/18 08:59 12/16/18 09:33 Polyethylene Glycol (Miralax) 17 gm DAILYPRN PRN ORAL Constipation 11/28/18 17:04 12/28/18 17:03 12/02/18 09:01 Allergies: Coded Allergies: No Known Allergies (Verified , 09/12/10) Subjective Patient is alert, oriented, no acute distress, no chest pain, no shortness of breath. Objective Last Vital Signs Date Time Temp Pulse Resp B/P (MAP) Pulse Ox O2 Delivery O2 Flow Rate FiO2 12/16/18 17:46 98.4 12/16/18 16:00 68 18 118/53 (74) 93 12/16/18 09:00 Nasal Cannula 2.0 12/14/18 20:36 28 Laboratory Tests Test 12/16/18 06:10 White Blood Count 5.8 K/UL (4.8-10.8) Red Blood Count 3.04 M/UL (4.70-6.10) L Hemoglobin 7.6 G/DL (14.2-18.0) L Hematocrit 22.9 % (42.0-52.0) L Mean Corpuscular Volume 76 FL (80-99) L Mean Corpuscular Hemoglobin 25.2 PG (27.0-31.0) L Mean Corpuscular Hemoglobin Concent 33.3 G/DL (32.0-36.0) Red Cell Distribution Width 23.9 % (11.6-14.8) H Platelet Count 86 K/UL (150-450) L Mean Platelet Volume 12.9 FL (6.5-10.1) H Neutrophils (%) (Auto) % (45.0-75.0) Lymphocytes (%) (Auto) % (20.0-45.0) Monocytes (%) (Auto) % (1.0-10.0) Eosinophils (%) (Auto) % (0.0-3.0) Basophils (%) (Auto) % (0.0-2.0) Differential Total Cells Counted 100 Neutrophils % (Manual) 32 % (45-75) L Lymphocytes % (Manual) 42 % (20-45) Monocytes % (Manual) 13 % (1-10) H Eosinophils % (Manual) 2 % (0-3) Basophils % (Manual) 0 % (0-2) Metamyelocytes % 1 % (0-0) H Myelocytes % 5 % (0-0) H Blast Cells % 2 % (0-0) *H Band Neutrophils 3 % (0-8) Platelet Estimate Decreased L Platelet Morphology See comment Giant Platelets Occasional Anisocytosis 3+ Microcytosis 2+ Sodium Level 132 MMOL/L (136-145) L Potassium Level 4.0 MMOL/L (3.5-5.1) Chloride Level 100 MMOL/L (98-107) Carbon Dioxide Level 29 MMOL/L (21-32) Anion Gap 3 mmol/L (5-15) L Blood Urea Nitrogen 17 mg/dL (7-18) Creatinine 0.9 MG/DL (0.55-1.30) Estimat Glomerular Filtration Rate mL/min (>60) Glucose Level 96 MG/DL (74-106) Calcium Level 8.4 MG/DL (8.5-10.1) L Intake and Output 12/15/18 12/16/18 19:00 07:00 Intake Total 150 ml 240 ml Output Total 300 ml Balance 150 ml -60 ml Intake Oral 150 ml 240 ml Output Urine Total 300 ml # Voids 6 Objective General: No acute distress, awake and alert HEENT: NCAT, sclera anicteric, PERRL, EOMI. Neck: Supple, no significant jugular venous distention, Lungs: Good inspiratory effort, clear to auscultation bilaterally, no Wheeze or Rales. Heart: Regular rate and rhythm, normal S1/S2, no murmur, AICD @ [facility]. Abdomen: soft, nontender, nondistended. Normoactive bowel sounds. Extremities: No Cyanosis , clubbing or edema. Neuro: A&O x 3, Able to move all extremities Assessment/Plan Assessment/Plan 1. Chest pain, possible acute coronary syndrome. 2. Hypertension. 3. Dyslipidemia. 4. Congestive heart failure. 5. Coronary artery disease. 6. Sick sinus syndrome, status pacemaker. 7. Acute E. coli UTI. 8. 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 PLAN: 1. Chest pain, possible acute coronary syndrome. 2. Hypertension. 3. Dyslipidemia. 4. Congestive heart failure. 5. Coronary artery disease. 6. Sick sinus syndrome, status pacemaker. 7. UTI. 8. Pancytopenia; S/P transfusion 4 units PRBC total-Severe anemia, Thrombocytopenia and leukopenia-?leukemia? see onc note. PLAN: Admit the patient to telemetry. Discussed case with Dr. Gee from Cardiology Electrophysiology. Await cardiac nuclear stress test-outpatient Dr. Luong, Pulmonary Critical Care. Urine cult=E. Coli. S/P Rocephin. DVT prophylaxis, heparin subcutaneous. Code status, Full Code. The patient is expected to be in the hospital greater than 2 days Discharge paln: [facility] S/P transfusion 2 units PRBC on 11/19/18 See Hematology consult-?acute myelocytic leukemia? Discharge to [facility] Nephrology consult Abdias Hunter MD Dec 16, 2018 18:37
[2018-12-16 20:00] VITALS: BP 123/62
[2018-12-16] MEDS: Atorvastatin 20mg tab ORAL SCH (20:58)
--- NOTE | 2018-12-16 22:49 | General Progress Note ---
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 --> Hep panel and HIV negative, hep C++++ --> US abd to evaluate for cirrhosis and hsm reviewed --> Peripheral smear ordered to evaluate for blasts /schistocytes --> abx and other meds have been reviewed --> ok for ppx if plt >50k w/ either heparin or lovenox --> Transfuse if Plt < 20k and fever, or if Plt < 10k without fever --->Plt trend 70-->65-->44-->86 # Anemia of chronic disease, some minor hemolysis is noted --> Anemia workup has been reviewed,bertha test is negative, retic reviewed --> Hgb goal >7. Transfuse prn. --> Epogen or iron at this time is not particularly indicated --> Medications have been reviewed --> Hgb trend: 9-->8.7-->7.9-->7-->7.6 # Reticulocytosis with elevated bilirubin that is indirect --> reviewed direct and indirect bilis again, trend could have liver disease --> liver US shows no significant cirrhosis --> evaluate as needed with gi team, recs apprecaited #. Chest pain, possible acute coronary syndrome. --> cards recs appreciated as well as pulm --> stress test prn # Hypertension. # Dyslipidemia. # Congestive heart failure. # Coronary artery disease. # Sick sinus syndrome, status pacemaker. # Acute E. coli UTI. # Hep C+++ needs op management The timing of this note does not necessarily reflect the time of the patient was seen. Greatly appreciate consultation! Subjective Constitutional: Denies: no symptoms, chills, diaphoresis, fever, malaise, weakness, other HEENT: Denies: no symptoms, eye pain, blurred vision, tearing, double vision, ear pain, ear discharge, nose pain, nose congestion, throat pain, throat swelling, mouth pain, mouth swelling, other Respiratory: Denies: no symptoms, cough, orthopnea, shortness of breath, SOB with excertion, SOB at rest, sputum, stridor, wheezing, other Gastrointestinal/Abdominal: Denies: no symptoms, abdomen distended, abdominal pain, black stools, tarry stools, blood in stool, constipated, diarrhea, difficulty swallowing, nausea, poor appetite, poor fluid intake, rectal bleeding , vomiting, other Genitourinary: Denies: no symptoms, burning, discharge, frequency, flank pain, hematuria, incontinence, pain, urgency, other Allergies: Coded Allergies: No Known Allergies (Verified , 09/12/10) Subjective 11/27: no events to report, no f/c 11/28: seen by bedside, plt 65, plan for EGD and bone marrow biopsy tomorrow 11/29: BM biopsy today, no acute distress. 11/30: Had BM biopsy yesterday and now in reverse isolation. hgb 7.5, will transfuse as needed. 12/01: seen by bedside, plt remains low, awaiting bone marrow biopsy results. 12/02: No acute distress, no chest pain, no shortness of breath, wbc 2.7, hgb 7.3 , plt 50, will transfuse as needed. S/P BM biopsy 11/29/18, Results pending 12/04: bone marrow biopsy completed, and show myeloblasts, c/w mds/leukemia, requires close surveillance 12/05: hgb 6.9, Had blood transfusion today, plt up trending, no events 3: Seen by bedside, overall improved, still has complaint of chest pain, plt trending up 12/07: Given 1 unit prbc, continues to c/o chest pain, seen by cards 12/08: seen by bedside, complains of pain, plt 106, no events 3: awake, comfortable, plt trending down at 69, no events 12/11: awake, comfortable, on NC, plt remains low at 70. 12/12: awake, comfortable, plt 65, no events 12/13: seen by bedside, awake , comfortable, pending labs. 12/14: awake, comfortable, hgb 7.9, monitor, will transfuse as needed, plt trending down at 44, 12/15: seen by bedside, awake, comfortable, hgb 7, will transfuse as needed, plt 82. 12/16: awake comfortable, no events, hgb trending up Objective Last 24 Hour Vital Signs Date Time Temp Pulse Resp B/P (MAP) Pulse Ox O2 Delivery O2 Flow Rate FiO2 12/16/18 21:00 Nasal Cannula 2.0 12/16/18 20:58 76 123/62 12/16/18 20:00 98.1 76 18 123/62 (82) 95 12/16/18 17:46 98.4 12/16/18 16:00 98.4 68 18 118/53 (74) 93 12/16/18 12:00 99.8 67 20 120/59 (79) 96 12/16/18 09:53 127/63 12/16/18 09:34 70 127/63 12/16/18 09:00 Nasal Cannula 2.0 12/16/18 08:00 98.8 70 18 127/63 (84) 98 12/16/18 04:00 98.6 68 18 132/61 (84) 100 12/16/18 00:00 98.9 73 18 131/62 (85) 96 Intake and Output 12/15/18 12/16/18 18:59 06:59 Intake Total 150 ml 240 ml Output Total 300 ml Balance 150 ml -60 ml Intake Oral 150 ml 240 ml Output Urine Total 300 ml # Voids 6 Laboratory Tests 12/16/18 06:10: White Blood Count 5.8, Red Blood Count 3.04L, Hemoglobin 7.6L, Hematocrit 22.9L , Mean Corpuscular Volume 76L, Mean Corpuscular Hemoglobin 25.2L, Mean Corpuscular Hemoglobin Concent 33.3, Red Cell Distribution Width 23.9H, Platelet Count 86L, Mean Platelet Volume 12.9H, Neutrophils (%) (Auto) , Lymphocytes (%) (Auto) , Monocytes (%) (Auto) , Eosinophils (%) (Auto) , Basophils (%) (Auto) , Differential Total Cells Counted 100, Neutrophils % ( Manual) 32L, Lymphocytes % (Manual) 42, Monocytes % (Manual) 13H, Eosinophils % (Manual) 2, Basophils % (Manual) 0, Metamyelocytes % 1H, Myelocytes % 5H, Blast Cells % 2*H, Band Neutrophils 3, Platelet Estimate DecreasedL, Platelet Morphology See comment, Giant Platelets Occasional, Anisocytosis 3+, Microcytosis 2+, Sodium Level 132L, Potassium Level 4.0, Chloride Level 100, Carbon Dioxide Level 29, Anion Gap 3L, Blood Urea Nitrogen 17, Creatinine 0.9, Estimat Glomerular Filtration Rate , Glucose Level 96, Calcium Level 8.4L Height (Feet): 5 Height (Inches): 5.00 Weight (Pounds): 149 Objective General Appearance: well appearing, nad, alert Head: normocephalic, atraumatic Eyes: b/l eye PERRL, bilateral eye EOMI ENT: hearing grossly normal, normal pharynx Neck: full range of motion, supple, no meningismus Respiratory: chest non-tender, lungs clear, normal breath sounds, NC++ Cardiovascular: regular rate, rhythm, no murmur Gastrointestinal: normal bowel sounds, non tender, no mass, no organomegaly, no bruit, non-distended Musculoskeletal: back normal, normal range of motion Psychiatric: mood/affect normal Skin: warm/dry Jose Alberto España MD Dec 16, 2018 22:49
[2018-12-17] VITALS: BP 115/62
[2018-12-17 04:00] VITALS: BP 116/52
[2018-12-17] MEDS: Levothyroxine 25mcg tab ORAL SCH (05:47)
--- NOTE | 2018-12-17 07:24 | General Progress Note ---
Assessment/Plan Problem List: (1) History of CVA (cerebrovascular accident) ICD Codes: Z86.73 - Personal history of transient ischemic attack (TIA), and cerebral infarction without residual deficits SNOMED: 615512931 (2) Cardiomyopathy ICD Codes: I42.9 - Cardiomyopathy, unspecified SNOMED: 77924863 (3) Hypothyroidism ICD Codes: E03.9 - Hypothyroidism, unspecified SNOMED: 67606312 (4) HTN (hypertension) ICD Codes: I10 - Essential (primary) hypertension SNOMED: 86479555 (5) Severe thrombocytopenia ICD Codes: D69.6 - Thrombocytopenia, unspecified SNOMED: 664064656 (6) Anxiety disorder ICD Codes: F41.9 - Anxiety disorder, unspecified SNOMED: 160313732 (7) Severe anemia ICD Codes: D64.9 - Anemia, unspecified SNOMED: 224094617 (8) GERD (gastroesophageal reflux disease) ICD Codes: K21.9 - Gastro-esophageal reflux disease without esophagitis SNOMED: 975498915 (9) Pacemaker ICD Codes: Z95.0 - Presence of cardiac pacemaker SNOMED: 69158279, 844963527, 918124308 Assessment/Plan SUMMARY OF FINDINGS: 1. Gastritis. 2. A 6 cm hiatal hernia. Refusing a.m. lab draws RECOMMENDATIONS: Follow up biopsy results and treat accordingly. >> Mild chronic gastritis. Negative for H. pylori negative negative for dysplasia or malignancy. BM biopsy>> leukemia>> fu oncology monitor H&H, prn transfusions. OB stool uncollected bowel regime ppi, H2B qhs Zofran as needed fu labs Outpatient hep C treatment dc planning Subjective ROS Limited/Unobtainable: No Allergies: Coded Allergies: No Known Allergies (Verified , 09/12/10) Objective Last 24 Hour Vital Signs Date Time Temp Pulse Resp B/P (MAP) Pulse Ox O2 Delivery O2 Flow Rate FiO2 12/17/18 04:00 97.6 62 20 116/52 (73) 93 12/17/18 00:00 98.9 64 20 115/62 (79) 98 12/16/18 21:00 Nasal Cannula 2.0 12/16/18 20:58 76 123/62 12/16/18 20:00 98.1 76 18 123/62 (82) 95 12/16/18 17:46 98.4 12/16/18 16:00 98.4 68 18 118/53 (74) 93 12/16/18 12:00 99.8 67 20 120/59 (79) 96 12/16/18 09:53 127/63 12/16/18 09:34 70 127/63 12/16/18 09:00 Nasal Cannula 2.0 12/16/18 08:00 98.8 70 18 127/63 (84) 98 Intake and Output 12/16/18 12/17/18 19:00 07:00 Intake Total 360 ml Output Total 300 ml 400 ml Balance 60 ml -400 ml Intake Oral 360 ml Output Urine Total 300 ml 400 ml Height (Feet): 5 Height (Inches): 5.00 Weight (Pounds): 147 General Appearance: no apparent distress EENT: normal ENT inspection Neck: supple Cardiovascular: normal rate Respiratory/Chest: lungs clear Abdomen: non tender, soft, hypoactive bowel sounds Extremities: non-tender Richie Mcguire MD Dec 17, 2018 07:24
[2018-12-17 08:00] VITALS: BP 130/63
[2018-12-17] MEDS: Carvedilol 12.5mg tab ORAL SCH ×2 (08:57→21:00)
[2018-12-17] MEDS: Docusate 100mg cap ORAL SCH ×2 (08:58→21:00)
[2018-12-17 12:00] VITALS: BP 107/46
--- NOTE | 2018-12-17 15:56 | Internal Med Progress Note ---
Subjective Physician Name Abdias Hunter Attending Physician Abdias Hunter MD Current Medications Medications (Trade) Dose Ordered Sig/Scout Route PRN Reason Start Time Stop Time Status Last Admin Dose Admin Acetaminophen (Tylenol) 650 mg Q4H PRN ORAL Mild Pain (Pain Scale 1-3) 11/28/18 17:02 12/18/18 17:01 12/17/18 02:37 Acetaminophen (Tylenol) 650 mg Q4H PRN ORAL fever 11/28/18 17:02 12/18/18 17:01 Acetaminophen (Tylenol) 650 mg Q4H PRN RECTAL Mild Pain (Pain Scale 1-3) 11/28/18 17:02 12/18/18 17:01 Atorvastatin Calcium (Lipitor) 40 mg BEDTIME ORAL 11/28/18 21:00 12/18/18 20:59 12/16/18 20:58 Bisacodyl (Dulcolax) 10 mg DAILYPRN PRN RECTAL Constipation 11/28/18 17:02 12/28/18 17:01 Carvedilol (Coreg) 12.5 mg EVERY 12 HOURS ORAL 11/28/18 21:00 12/18/18 20:59 12/17/18 08:57 Clonidine HCl (Catapres Tab) 0.1 mg Q2H PRN ORAL For High Blood Pressure 12/06/18 21:15 01/05/19 21:14 12/07/18 08:25 Dextrose (Dextrose 50%) 25 ml Q30M PRN IV Hypoglycemia 11/28/18 17:15 12/18/18 10:14 Dextrose (Dextrose 50%) 50 ml Q30M PRN IV Hypoglycemia 11/28/18 17:15 12/18/18 10:14 Docusate Sodium (Colace) 100 mg EVERY 12 HOURS ORAL 11/28/18 21:00 12/18/18 20:59 12/17/18 08:58 Escitalopram Oxalate (Lexapro) 15 mg DAILY ORAL 11/29/18 09:00 12/24/18 08:59 12/17/18 08:58 Famotidine (Pepcid) 20 mg QHS ORAL 11/30/18 21:00 12/30/18 20:59 12/16/18 20:58 Levothyroxine Sodium (Synthroid) 25 mcg Q24H ORAL 11/29/18 06:30 12/19/18 06:29 12/17/18 05:47 Miscellaneous Medication (fentaNYL Destruction) 1 ea Q72H MISC 12/11/18 15:59 01/10/19 15:58 12/14/18 15:59 Morphine Sulfate (Morphine Sulfate) 2 mg Q4H PRN IM For Pain 12/15/18 22:30 12/22/18 22:29 12/16/18 21:08 Naloxone HCl (Narcan) 0.1 mg PRN IV Sedation scale 3 or 4 12/08/18 15:15 01/07/19 15:14 Nitroglycerin (Ntg) 0.4 mg Q5M PRN SL Prn Chest Pain 11/28/18 17:05 12/18/18 10:14 12/16/18 09:53 Ondansetron HCl (Zofran ODT) 4 mg Q4H PRN ORAL Nausea & Vomiting 12/07/18 10:00 01/06/19 09:59 12/16/18 15:20 Pantoprazole (Protonix) 40 mg DAILY ORAL 11/29/18 09:00 12/19/18 08:59 12/17/18 08:58 Polyethylene Glycol (Miralax) 17 gm DAILYPRN PRN ORAL Constipation 11/28/18 17:04 12/28/18 17:03 12/02/18 09:01 Allergies: Coded Allergies: No Known Allergies (Verified , 09/12/10) Subjective Patient is alert, oriented, no acute distress, no chest pain, no shortness of breath. Objective Last Vital Signs Date Time Temp Pulse Resp B/P (MAP) Pulse Ox O2 Delivery O2 Flow Rate FiO2 12/17/18 12:00 97.7 61 18 107/46 (66) 98 12/17/18 09:00 Nasal Cannula 2.0 12/17/18 08:29 28 Intake and Output 12/16/18 12/17/18 19:00 07:00 Intake Total 360 ml Output Total 300 ml 400 ml Balance 60 ml -400 ml Intake Oral 360 ml Output Urine Total 300 ml 400 ml Objective General: No acute distress, awake and alert HEENT: NCAT, sclera anicteric, PERRL, EOMI. Neck: Supple, no significant jugular venous distention, Lungs: Good inspiratory effort, clear to auscultation bilaterally, no Wheeze or Rales. Heart: Regular rate and rhythm, normal S1/S2, no murmur, AICD @ LCW. Abdomen: soft, nontender, nondistended. Normoactive bowel sounds. Extremities: No Cyanosis , clubbing or edema. Neuro: A&O x 3, Able to move all extremities Assessment/Plan Assessment/Plan 1. Chest pain, possible acute coronary syndrome. 2. Hypertension. 3. Dyslipidemia. 4. Congestive heart failure. 5. Coronary artery disease. 6. Sick sinus syndrome, status pacemaker. 7. Acute E. coli UTI. 8. 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 PLAN: Dr. Gee from Cardiology Electrophysiology. Await cardiac nuclear stress test-outpatient Dr. Luong, Pulmonary Critical Care. DVT prophylaxis: SCD Code status, Full Code. S/P transfusion 2 units PRBC on 11/19/18 See Hematology consult-?acute myelocytic leukemia? Discharge to SNF Abx: Off Abdias Hunter MD Dec 17, 2018 15:56
[2018-12-17] MEDS: fentaNYL Destruction MISC SCH (15:59)
[2018-12-17 16:00] VITALS: BP 124/53
[2018-12-17] MEDS: Morphine Sulfate 2mg/ml Inj(IV/IM USE ONLY) IM PRN ×2 (16:26→21:03)
--- NOTE | 2018-12-17 16:31 | Cardiac Electrophysiology PN ---
Assessment/Plan Assessment/Plan 1. Atypical chest pain and hx of CABG. Likely due to severe anemia. Ruled out [facility]. Nuclear stress test cancelled for severe anemia. Reschedule after pancytopenia is resolved as out patient. On Lipitor and Coreg. Off Aspirin and Plavix for anemia and thrombocytopenia 2. Cardiomyopathy. EF now 55%. On Coreg 12.5 mg bid. Off Lisinopril and Lasix 3. Status post [facility] atrial biventricular defibrillator. Interrogated and showed Nl Fx 4. Severe anemia, S/P PRBC. FU GI. 5. Pancytopenia with Platelet count of 17. Off Aspirin and PLavix S/P platelet transfusion. S/P BM biopsy 11/29/18. S/P PRBC Bone marrow bipsy/aspiration, LEUKEMIA with 8.7% myeloblasts, Chemo by Dr Stock pending DW RN Subjective Subjective No CP or SOB. Has generalized body ache. Very weak Objective Last 24 Hour Vital Signs Date Time Temp Pulse Resp B/P (MAP) Pulse Ox O2 Delivery O2 Flow Rate FiO2 12/17/18 12:00 97.7 61 18 107/46 (66) 98 12/17/18 09:00 Nasal Cannula 2.0 12/17/18 08:57 64 130/63 12/17/18 08:29 Nasal Cannula 2.0 28 12/17/18 08:29 97 Nasal Cannula 2.0 28 12/17/18 08:00 98.2 64 16 130/63 (85) 96 12/17/18 04:00 97.6 62 20 116/52 (73) 93 12/17/18 00:00 98.9 64 20 115/62 (79) 98 12/16/18 21:00 Nasal Cannula 2.0 12/16/18 20:58 76 123/62 12/16/18 20:00 98.1 76 18 123/62 (82) 95 12/16/18 17:46 98.4 Intake and Output 12/16/18 12/17/18 19:00 07:00 Intake Total 360 ml Output Total 300 ml 400 ml Balance 60 ml -400 ml Intake Oral 360 ml Output Urine Total 300 ml 400 ml Objective HEAD AND NECK: No JVD. LUNGS: Coarse rhonchi. CARDIOVASCULAR: Regular S1 and S2 with no gallop or murmur. Sternotomy is intact. ICD in left subclavian. ABDOMEN: Soft. EXTREMITIES: 1+ pitting edema. Satinder eGe MD Dec 17, 2018 16:31
--- NOTE | 2018-12-17 16:41 | Pulmonology Progress Note ---
Assessment/Plan Problems: (1) Myeloblastic leukemia (2) Severe thrombocytopenia (3) ACS (acute coronary syndrome) (4) Cardiomyopathy (5) HTN (hypertension) (6) Pacemaker (7) Hypothyroidism (8) CAD (coronary artery disease) Assessment/Plan doing better, still nauseous increase fentNAYL PACH dc all oral analgesics and try Fentanyl Patch doing better early leukemia PLT stable, better today check electrolytes awaiting bone marrow biopsy results. all reviewed symptomatic treatment dc planning Subjective ROS Limited/Unobtainable: No Constitutional: Reports: no symptoms HEENT: Repors: no symptoms Respiratory: Reports: no symptoms Allergies: Coded Allergies: No Known Allergies (Verified , 09/12/10) Objective Last 24 Hour Vital Signs Date Time Temp Pulse Resp B/P (MAP) Pulse Ox O2 Delivery O2 Flow Rate FiO2 12/17/18 16:00 99.0 62 19 124/53 (76) 100 12/17/18 12:00 97.7 61 18 107/46 (66) 98 12/17/18 09:00 Nasal Cannula 2.0 12/17/18 08:57 64 130/63 12/17/18 08:29 Nasal Cannula 2.0 28 12/17/18 08:29 97 Nasal Cannula 2.0 28 12/17/18 08:00 98.2 64 16 130/63 (85) 96 12/17/18 04:00 97.6 62 20 116/52 (73) 93 12/17/18 00:00 98.9 64 20 115/62 (79) 98 12/16/18 21:00 Nasal Cannula 2.0 12/16/18 20:58 76 123/62 12/16/18 20:00 98.1 76 18 123/62 (82) 95 12/16/18 17:46 98.4 Intake and Output 12/16/18 12/17/18 19:00 07:00 Intake Total 360 ml Output Total 300 ml 400 ml Balance 60 ml -400 ml Intake Oral 360 ml Output Urine Total 300 ml 400 ml Objective General Appearance: cachetic Lines, tubes and drains: peripheral HEENT: normocephalic, atraumatic Neck: non-tender, normal alignment Respiratory/Chest: chest wall non-tender, lungs clear Breasts: no masses Cardiovascular/Chest: normal peripheral pulses, normal rate Abdomen: normal bowel sounds, non tender Genitourinary/Rectal: normal genital exam Extremities: normal range of motion Skin Exam: normal pigmentation 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 Current Medications Medications (Trade) Dose Ordered Sig/Scout Route PRN Reason Start Time Stop Time Status Last Admin Dose Admin Acetaminophen (Tylenol) 650 mg Q4H PRN ORAL Mild Pain (Pain Scale 1-3) 11/28/18 17:02 12/18/18 17:01 12/17/18 02:37 Acetaminophen (Tylenol) 650 mg Q4H PRN ORAL fever 11/28/18 17:02 12/18/18 17:01 Acetaminophen (Tylenol) 650 mg Q4H PRN RECTAL Mild Pain (Pain Scale 1-3) 11/28/18 17:02 12/18/18 17:01 Atorvastatin Calcium (Lipitor) 40 mg BEDTIME ORAL 11/28/18 21:00 12/18/18 20:59 12/16/18 20:58 Bisacodyl (Dulcolax) 10 mg DAILYPRN PRN RECTAL Constipation 11/28/18 17:02 12/28/18 17:01 Carvedilol (Coreg) 12.5 mg EVERY 12 HOURS ORAL 11/28/18 21:00 12/18/18 20:59 12/17/18 08:57 Clonidine HCl (Catapres Tab) 0.1 mg Q2H PRN ORAL For High Blood Pressure 12/06/18 21:15 01/05/19 21:14 12/07/18 08:25 Dextrose (Dextrose 50%) 25 ml Q30M PRN IV Hypoglycemia 11/28/18 17:15 12/18/18 10:14 Dextrose (Dextrose 50%) 50 ml Q30M PRN IV Hypoglycemia 11/28/18 17:15 12/18/18 10:14 Docusate Sodium (Colace) 100 mg EVERY 12 HOURS ORAL 11/28/18 21:00 12/18/18 20:59 12/17/18 08:58 Escitalopram Oxalate (Lexapro) 15 mg DAILY ORAL 11/29/18 09:00 12/24/18 08:59 12/17/18 08:58 Famotidine (Pepcid) 20 mg QHS ORAL 11/30/18 21:00 12/30/18 20:59 12/16/18 20:58 Levothyroxine Sodium (Synthroid) 25 mcg Q24H ORAL 11/29/18 06:30 12/19/18 06:29 12/17/18 05:47 Miscellaneous Medication (fentaNYL Destruction) 1 ea Q72H MISC 12/11/18 15:59 01/10/19 15:58 12/14/18 15:59 Morphine Sulfate (Morphine Sulfate) 2 mg Q4H PRN IM For Pain 12/15/18 22:30 12/22/18 22:29 12/17/18 16:26 Naloxone HCl (Narcan) 0.1 mg PRN IV Sedation scale 3 or 4 12/08/18 15:15 01/07/19 15:14 Nitroglycerin (Ntg) 0.4 mg Q5M PRN SL Prn Chest Pain 11/28/18 17:05 12/18/18 10:14 12/16/18 09:53 Ondansetron HCl (Zofran ODT) 4 mg Q4H PRN ORAL Nausea & Vomiting 12/07/18 10:00 01/06/19 09:59 12/16/18 15:20 Pantoprazole (Protonix) 40 mg DAILY ORAL 11/29/18 09:00 12/19/18 08:59 12/17/18 08:58 Polyethylene Glycol (Miralax) 17 gm DAILYPRN PRN ORAL Constipation 11/28/18 17:04 12/28/18 17:03 12/02/18 09:01 Chepe Luong MD Dec 17, 2018 16:41
[2018-12-17] MEDS ORDERED: Naloxone 0.4mg/ml Inj IV PRN (17:45)
[2018-12-17 20:00] VITALS: BP 109/50
[2018-12-17] MEDS: Atorvastatin 20mg tab ORAL SCH (21:01)
[2018-12-18] VITALS (7 sets, daily range): BP systolic 116–140; BP diastolic 53–67
[2018-12-18] MEDS: Morphine Sulfate 2mg/ml Inj(IV/IM USE ONLY) IM PRN ×5 (01:08→21:03)
[2018-12-18] MEDS: Levothyroxine 25mcg tab ORAL SCH (05:11)
[2018-12-18] MEDS: Docusate 100mg cap ORAL SCH (08:47)
[2018-12-18] MEDS: Carvedilol 12.5mg tab ORAL SCH ×2 (08:47→21:45)
--- NOTE | 2018-12-18 11:33 | General Progress Note ---
Assessment/Plan Problem List: (1) History of CVA (cerebrovascular accident) ICD Codes: Z86.73 - Personal history of transient ischemic attack (TIA), and cerebral infarction without residual deficits SNOMED: 688790831 (2) Cardiomyopathy ICD Codes: I42.9 - Cardiomyopathy, unspecified SNOMED: 12774659 (3) Hypothyroidism ICD Codes: E03.9 - Hypothyroidism, unspecified SNOMED: 86501893 (4) HTN (hypertension) ICD Codes: I10 - Essential (primary) hypertension SNOMED: 22639573 (5) Severe thrombocytopenia ICD Codes: D69.6 - Thrombocytopenia, unspecified SNOMED: 043879575 (6) Anxiety disorder ICD Codes: F41.9 - Anxiety disorder, unspecified SNOMED: 126429652 (7) Severe anemia ICD Codes: D64.9 - Anemia, unspecified SNOMED: 544062129 (8) GERD (gastroesophageal reflux disease) ICD Codes: K21.9 - Gastro-esophageal reflux disease without esophagitis SNOMED: 175897083 (9) Pacemaker ICD Codes: Z95.0 - Presence of cardiac pacemaker SNOMED: 50240332, 959071260, 572079139 Assessment/Plan SUMMARY OF FINDINGS: 1. Gastritis. 2. A 6 cm hiatal hernia. Refusing a.m. lab draws RECOMMENDATIONS: Follow up biopsy results and treat accordingly. >> Mild chronic gastritis. Negative for H. pylori negative negative for dysplasia or malignancy. BM biopsy>> leukemia>> fu oncology monitor H&H, prn transfusions. OB stool uncollected bowel regime ppi, H2B qhs Zofran as needed fu labs Outpatient hep C treatment dc planning Subjective ROS Limited/Unobtainable: Yes Allergies: Coded Allergies: No Known Allergies (Verified , 09/12/10) Objective Last 24 Hour Vital Signs Date Time Temp Pulse Resp B/P (MAP) Pulse Ox O2 Delivery O2 Flow Rate FiO2 12/18/18 08:47 67 126/54 12/18/18 08:00 98.1 67 20 126/58 (80) 100 12/18/18 08:00 Nasal Cannula 2.0 12/18/18 05:43 99.0 12/18/18 04:00 99.0 67 16 118/57 (77) 98 12/18/18 00:00 98.8 73 20 140/57 (84) 99 12/17/18 21:00 Nasal Cannula 2.0 12/17/18 21:00 64 109/50 12/17/18 20:00 99.0 64 19 109/50 (69) 99 12/17/18 18:30 97.7 12/17/18 16:00 99.0 62 19 124/53 (76) 100 12/17/18 12:00 97.7 61 18 107/46 (66) 98 Intake and Output 12/17/18 12/18/18 19:00 07:00 Intake Total 600 ml Output Total 200 ml 300 ml Balance 400 ml -300 ml Intake Oral 600 ml Output Urine Total 200 ml 300 ml # Voids 1 2 # Bowel Movements 1 Height (Feet): 5 Height (Inches): 5.00 Weight (Pounds): 149 General Appearance: no apparent distress EENT: normal ENT inspection Neck: supple Cardiovascular: normal rate Respiratory/Chest: decreased breath sounds Abdomen: normal bowel sounds, non tender, soft Extremities: non-tender Richie Mcguire MD Dec 18, 2018 11:33
--- NOTE | 2018-12-18 14:58 | Internal Med Progress Note ---
Subjective Physician Name Abdias Hunter Attending Physician Abdias Hunter MD Current Medications Medications (Trade) Dose Ordered Sig/Scout Route PRN Reason Start Time Stop Time Status Last Admin Dose Admin Acetaminophen (Tylenol) 650 mg Q4H PRN ORAL Mild Pain (Pain Scale 1-3) 11/28/18 17:02 12/18/18 17:01 12/17/18 02:37 Acetaminophen (Tylenol) 650 mg Q4H PRN ORAL fever 11/28/18 17:02 12/18/18 17:01 Acetaminophen (Tylenol) 650 mg Q4H PRN RECTAL Mild Pain (Pain Scale 1-3) 11/28/18 17:02 12/18/18 17:01 Atorvastatin Calcium (Lipitor) 40 mg BEDTIME ORAL 11/28/18 21:00 12/18/18 20:59 12/17/18 21:01 Bisacodyl (Dulcolax) 10 mg DAILYPRN PRN RECTAL Constipation 11/28/18 17:02 12/28/18 17:01 Carvedilol (Coreg) 12.5 mg EVERY 12 HOURS ORAL 11/28/18 21:00 12/18/18 20:59 12/18/18 08:47 Clonidine HCl (Catapres Tab) 0.1 mg Q2H PRN ORAL For High Blood Pressure 12/06/18 21:15 01/05/19 21:14 12/07/18 08:25 Docusate Sodium (Colace) 100 mg EVERY 12 HOURS ORAL 11/28/18 21:00 12/18/18 20:59 12/18/18 08:47 Escitalopram Oxalate (Lexapro) 15 mg DAILY ORAL 11/29/18 09:00 12/24/18 08:59 12/18/18 08:48 Famotidine (Pepcid) 20 mg QHS ORAL 11/30/18 21:00 12/30/18 20:59 12/17/18 21:04 Fentanyl (Duragesic) 1 patch Q72H TDERMAL 12/17/18 18:00 12/24/18 17:59 12/17/18 18:00 Levothyroxine Sodium (Synthroid) 25 mcg Q24H ORAL 11/29/18 06:30 12/19/18 06:29 12/18/18 05:11 Miscellaneous Medication (fentaNYL Destruction) 1 ea Q72H MISC 12/20/18 17:59 01/19/19 17:58 Morphine Sulfate (Morphine Sulfate) 2 mg Q4H PRN IM For Pain 12/15/18 22:30 12/22/18 22:29 12/18/18 13:15 Naloxone HCl (Narcan) 0.1 mg PRN IV Sedation scale 3 or 4 12/08/18 15:15 01/07/19 15:14 Ondansetron HCl (Zofran ODT) 4 mg Q4H PRN ORAL Nausea & Vomiting 12/07/18 10:00 01/06/19 09:59 12/16/18 15:20 Pantoprazole (Protonix) 40 mg DAILY ORAL 11/29/18 09:00 12/19/18 08:59 12/18/18 08:47 Polyethylene Glycol (Miralax) 17 gm DAILYPRN PRN ORAL Constipation 11/28/18 17:04 12/28/18 17:03 12/02/18 09:01 Allergies: Coded Allergies: No Known Allergies (Verified , 09/12/10) Subjective Patient is alert, oriented, no acute distress, no chest pain, More shortness of breath. Objective Last Vital Signs Date Time Temp Pulse Resp B/P (MAP) Pulse Ox O2 Delivery O2 Flow Rate FiO2 12/18/18 12:00 97.9 67 19 123/67 (85) 99 12/18/18 08:00 Nasal Cannula 2.0 12/17/18 08:29 28 Intake and Output 12/17/18 12/18/18 19:00 07:00 Intake Total 600 ml Output Total 200 ml 300 ml Balance 400 ml -300 ml Intake Oral 600 ml Output Urine Total 200 ml 300 ml # Voids 1 2 # Bowel Movements 1 Objective General: No acute distress, awake and alert HEENT: NCAT, sclera anicteric, PERRL, EOMI. Neck: Supple, no significant jugular venous distention, Lungs: Good inspiratory effort, clear to auscultation bilaterally, no Wheeze or Rales. Heart: Regular rate and rhythm, normal S1/S2, no murmur, AICD @ LCW. Abdomen: soft, nontender, nondistended. Normoactive bowel sounds. Extremities: No Cyanosis , clubbing or edema. Neuro: A&O x 3, Able to move all extremities Assessment/Plan Assessment/Plan 1. Chest pain, possible acute coronary syndrome. 2. Hypertension. 3. Dyslipidemia. 4. Congestive heart failure. 5. Coronary artery disease. 6. Sick sinus syndrome, status pacemaker. 7. Acute E. coli UTI. 8. 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 PLAN: Dr. Gee from Cardiology Electrophysiology. Await cardiac nuclear stress test-outpatient Dr. Luong, Pulmonary Critical Care. DVT prophylaxis: SCD Code status, Full Code. S/P transfusion 2 units PRBC on 11/19/18 See Hematology consult Discharge to SNF Abx: Off CXR Abdias Hunter MD Dec 18, 2018 14:58
--- NOTE | 2018-12-18 17:01 | Pulmonology Progress Note ---
Assessment/Plan Problems: (1) Myeloblastic leukemia (2) Severe thrombocytopenia (3) ACS (acute coronary syndrome) (4) Cardiomyopathy (5) HTN (hypertension) (6) Pacemaker (7) Hypothyroidism (8) CAD (coronary artery disease) Assessment/Plan eating well doing better, still nauseous increase fentNAYL PACH dc all oral analgesics and try Fentanyl Patch doing better early leukemia PLT stable, better today check electrolytes awaiting bone marrow biopsy results. all reviewed symptomatic treatment dc planning Subjective ROS Limited/Unobtainable: No Constitutional: Reports: no symptoms HEENT: Repors: no symptoms Allergies: Coded Allergies: No Known Allergies (Verified , 09/12/10) Objective Last 24 Hour Vital Signs Date Time Temp Pulse Resp B/P (MAP) Pulse Ox O2 Delivery O2 Flow Rate FiO2 12/18/18 16:00 98.6 68 19 124/65 (84) 96 12/18/18 12:00 97.9 67 19 123/67 (85) 99 12/18/18 08:47 67 126/54 12/18/18 08:00 98.1 67 20 126/58 (80) 100 12/18/18 08:00 Nasal Cannula 2.0 12/18/18 05:43 99.0 12/18/18 04:00 99.0 67 16 118/57 (77) 98 12/18/18 00:00 98.8 73 20 140/57 (84) 99 12/17/18 21:00 Nasal Cannula 2.0 12/17/18 21:00 64 109/50 12/17/18 20:00 99.0 64 19 109/50 (69) 99 12/17/18 18:30 97.7 Intake and Output 12/17/18 12/18/18 19:00 07:00 Intake Total 600 ml Output Total 200 ml 300 ml Balance 400 ml -300 ml Intake Oral 600 ml Output Urine Total 200 ml 300 ml # Voids 1 2 # Bowel Movements 1 Objective General Appearance: cachetic Lines, tubes and drains: peripheral HEENT: normocephalic, atraumatic Neck: non-tender, normal alignment Respiratory/Chest: chest wall non-tender, lungs clear Breasts: no masses Cardiovascular/Chest: normal peripheral pulses, normal rate Abdomen: normal bowel sounds, non tender Genitourinary/Rectal: normal genital exam Extremities: normal range of motion Skin Exam: normal pigmentation 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 Current Medications Medications (Trade) Dose Ordered Sig/Scout Route PRN Reason Start Time Stop Time Status Last Admin Dose Admin Acetaminophen (Tylenol) 650 mg Q4H PRN ORAL Mild Pain (Pain Scale 1-3) 11/28/18 17:02 12/18/18 17:01 12/17/18 02:37 Acetaminophen (Tylenol) 650 mg Q4H PRN ORAL fever 11/28/18 17:02 12/18/18 17:01 Acetaminophen (Tylenol) 650 mg Q4H PRN RECTAL Mild Pain (Pain Scale 1-3) 11/28/18 17:02 12/18/18 17:01 Atorvastatin Calcium (Lipitor) 40 mg BEDTIME ORAL 11/28/18 21:00 12/18/18 20:59 12/17/18 21:01 Bisacodyl (Dulcolax) 10 mg DAILYPRN PRN RECTAL Constipation 11/28/18 17:02 12/28/18 17:01 Carvedilol (Coreg) 12.5 mg EVERY 12 HOURS ORAL 11/28/18 21:00 12/18/18 20:59 12/18/18 08:47 Clonidine HCl (Catapres Tab) 0.1 mg Q2H PRN ORAL For High Blood Pressure 12/06/18 21:15 01/05/19 21:14 12/07/18 08:25 Docusate Sodium (Colace) 100 mg EVERY 12 HOURS ORAL 11/28/18 21:00 12/18/18 20:59 12/18/18 08:47 Escitalopram Oxalate (Lexapro) 15 mg DAILY ORAL 11/29/18 09:00 12/24/18 08:59 12/18/18 08:48 Famotidine (Pepcid) 20 mg QHS ORAL 11/30/18 21:00 12/30/18 20:59 12/17/18 21:04 Fentanyl (Duragesic) 1 patch Q72H TDERMAL 12/17/18 18:00 12/24/18 17:59 12/17/18 18:00 Levothyroxine Sodium (Synthroid) 25 mcg Q24H ORAL 11/29/18 06:30 12/19/18 06:29 12/18/18 05:11 Miscellaneous Medication (fentaNYL Destruction) 1 ea Q72H MISC 12/20/18 17:59 01/19/19 17:58 Morphine Sulfate (Morphine Sulfate) 2 mg Q4H PRN IM For Pain 12/15/18 22:30 12/22/18 22:29 12/18/18 13:15 Naloxone HCl (Narcan) 0.1 mg PRN IV Sedation scale 3 or 4 12/08/18 15:15 01/07/19 15:14 Ondansetron HCl (Zofran ODT) 4 mg Q4H PRN ORAL Nausea & Vomiting 12/07/18 10:00 01/06/19 09:59 12/16/18 15:20 Pantoprazole (Protonix) 40 mg DAILY ORAL 11/29/18 09:00 12/19/18 08:59 12/18/18 08:47 Polyethylene Glycol (Miralax) 17 gm DAILYPRN PRN ORAL Constipation 11/28/18 17:04 12/28/18 17:03 12/02/18 09:01 Chepe Luong MD Dec 18, 2018 17:01
[2018-12-18] MEDS ORDERED: Docusate 100mg cap ORAL PRN (21:30)
[2018-12-18] MEDS ORDERED: Miralax 17gm pkt ORAL PRN (21:45)
[2018-12-18] MEDS: Atorvastatin 20mg tab ORAL SCH (21:45)
[2018-12-18] MEDS: Docusate 100mg cap ORAL PRN (21:45)
--- NOTE | 2018-12-18 22:31 | General Progress Note ---
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 --> Hep panel and HIV negative, hep C++++ --> US abd to evaluate for cirrhosis and hsm reviewed --> Peripheral smear ordered to evaluate for blasts /schistocytes --> abx and other meds have been reviewed --> ok for ppx if plt >50k w/ either heparin or lovenox --> Transfuse if Plt < 20k and fever, or if Plt < 10k without fever --->Plt trend 70-->65-->44-->86 # Anemia of chronic disease, some minor hemolysis is noted --> Anemia workup has been reviewed,bertha test is negative, retic reviewed --> Hgb goal >7. Transfuse prn. --> Epogen or iron at this time is not particularly indicated --> Medications have been reviewed --> Hgb trend: 9-->8.7-->7.9-->7-->7.6 # Reticulocytosis with elevated bilirubin that is indirect --> reviewed direct and indirect bilis again, trend could have liver disease --> liver US shows no significant cirrhosis --> evaluate as needed with gi team, recs apprecaited #. Chest pain, possible acute coronary syndrome. --> cards recs appreciated as well as pulm --> stress test prn # Hypertension. # Dyslipidemia. # Congestive heart failure. # Coronary artery disease. # Sick sinus syndrome, status pacemaker. # Acute E. coli UTI. # Hep C+++ needs op management The timing of this note does not necessarily reflect the time of the patient was seen. Greatly appreciate consultation! Subjective Allergies: Coded Allergies: No Known Allergies (Verified , 09/12/10) Subjective 11/27: no events to report, no f/c 11/28: seen by bedside, plt 65, plan for EGD and bone marrow biopsy tomorrow 11/29: BM biopsy today, no acute distress. 11/30: Had BM biopsy yesterday and now in reverse isolation. hgb 7.5, will transfuse as needed. 12/01: seen by bedside, plt remains low, awaiting bone marrow biopsy results. 12/02: No acute distress, no chest pain, no shortness of breath, wbc 2.7, hgb 7.3 , plt 50, will transfuse as needed. S/P BM biopsy 11/29/18, Results pending 12/04: bone marrow biopsy completed, and show myeloblasts, c/w mds/leukemia, requires close surveillance 12/05: hgb 6.9, Had blood transfusion today, plt up trending, no events 12/06: Seen by bedside, overall improved, still has complaint of chest pain, plt trending up 12/07: Given 1 unit prbc, continues to c/o chest pain, seen by cards 12/08: seen by bedside, complains of pain, plt 106, no events 12/09: awake, comfortable, plt trending down at 69, no events 12/11: awake, comfortable, on NC, plt remains low at 70. 12/12: awake, comfortable, plt 65, no events 12/13: seen by bedside, awake , comfortable, pending labs. 12/14: awake, comfortable, hgb 7.9, monitor, will transfuse as needed, plt trending down at 44, 12/15: seen by bedside, awake, comfortable, hgb 7, will transfuse as needed, plt 82. 3/15: awake comfortable, no events, hgb trending up 12/18: seen by bedside, alert, oriented, no acute distress Objective Last 24 Hour Vital Signs Date Time Temp Pulse Resp B/P (MAP) Pulse Ox O2 Delivery O2 Flow Rate FiO2 12/18/18 21:45 68 135/67 12/18/18 20:00 98.8 68 19 135/67 (89) 99 12/18/18 16:00 98.6 68 19 124/65 (84) 96 12/18/18 12:00 97.9 67 19 123/67 (85) 99 12/18/18 08:47 67 126/54 12/18/18 08:00 98.1 67 20 126/58 (80) 100 12/18/18 08:00 Nasal Cannula 2.0 12/18/18 05:43 99.0 12/18/18 04:00 99.0 67 16 118/57 (77) 98 12/18/18 00:00 98.8 73 20 140/57 (84) 99 Intake and Output 12/17/18 12/18/18 19:00 07:00 Intake Total 600 ml Output Total 200 ml 300 ml Balance 400 ml -300 ml Intake Oral 600 ml Output Urine Total 200 ml 300 ml # Voids 1 2 # Bowel Movements 1 Height (Feet): 5 Height (Inches): 5.00 Weight (Pounds): 149 Objective General Appearance: well appearing, nad, alert Head: normocephalic, atraumatic Eyes: b/l eye PERRL, bilateral eye EOMI ENT: hearing grossly normal, normal pharynx Neck: full range of motion, supple, no meningismus Respiratory: chest non-tender, lungs clear, normal breath sounds, NC++ Cardiovascular: regular rate, rhythm, no murmur Gastrointestinal: normal bowel sounds, non tender, no mass, no organomegaly, no bruit, non-distended Musculoskeletal: back normal, normal range of motion Psychiatric: mood/affect normal Skin: warm/dry Jose Alberto España MD Dec 18, 2018 22:31
[2018-12-19 04:00] VITALS: BP_SYST 121; BP_SYST 149; BP_DIAS 56; BP_DIAS 83
[2018-12-19] MEDS: Levothyroxine 25mcg tab ORAL SCH (06:03)
[2018-12-19] MEDS: Morphine Sulfate 2mg/ml Inj(IV/IM USE ONLY) IM PRN ×4 (06:14→21:44)
[2018-12-19 08:00] VITALS: BP 106/49
[2018-12-19 09:34] LABS: HEMATOCRIT 22.8 % (42.0-52.0); HEMOGLOBIN 7.1 G/DL (14.2-18.0); MEAN CORPUSCULAR VOLUME 77 FL (80-99); RED BLOOD COUNT 2.96 M/UL (4.70-6.10); RED CELL DISTRIBUTION WIDTH 24.2 % (11.6-14.8); WHITE BLOOD COUNT 4.6 K/UL (4.8-10.8)
[2018-12-19 09:59] LABS: PLATELET COUNT 121 K/UL (150-450)
[2018-12-19 10:01] LABS: ALANINE AMINOTRANSFERASE 21 U/L (12-78); ALBUMIN 2.3 G/DL (3.4-5.0); ALBUMIN/GLOBULIN RATIO 0.5 (1.0-2.7); ALKALINE PHOSPHATASE 62 U/L (46-116); ANION GAP 6 mmol/L (5-15); ASPARTATE AMINO TRANSFERASE 22 U/L (15-37); BILIRUBIN,TOTAL 0.8 MG/DL (0.2-1.0); BLOOD UREA NITROGEN 16 mg/dL (7-18); CALCIUM 8.2 MG/DL (8.5-10.1); CARBON DIOXIDE 29 MMOL/L (21-32); CHLORIDE 100 MMOL/L (98-107); CREATININE 0.9 MG/DL (0.55-1.30); SODIUM 135 MMOL/L (136-145)
--- NOTE | 2018-12-19 11:20 | GI Progress Note ---
Assessment/Plan Problems: (1) History of CVA (cerebrovascular accident) ICD Codes: Z86.73 - Personal history of transient ischemic attack (TIA), and cerebral infarction without residual deficits SNOMED: 830432445 (2) Severe anemia ICD Codes: D64.9 - Anemia, unspecified SNOMED: 303958849 (3) Abdominal pain ICD Codes: R10.9 - Unspecified abdominal pain SNOMED: 78656405 (4) GERD (gastroesophageal reflux disease) ICD Codes: K21.9 - Gastro-esophageal reflux disease without esophagitis SNOMED: 168746331 Status: stable Status Narrative Discussed with Dr. Mcguire Assessment/Plan SUMMARY OF FINDINGS: 1. Gastritis. 2. A 6 cm hiatal hernia. Refusing a.m. lab draws RECOMMENDATIONS: Follow up biopsy results and treat accordingly. >> Mild chronic gastritis. Negative for H. pylori negative negative for dysplasia or malignancy. BM biopsy>> leukemia>> fu oncology monitor H&H, prn transfusions. OB stool uncollected bowel regime ppi, H2B qhs Zofran as needed fu labs Outpatient hep C treatment dc planning The patient was seen and examined at bedside and all new and available data was reviewed in the patients chart. I agree with the above findings, impression and plan. (Patient seen earlier today. Signature stamp does not reflect patient encounter time.). - Richie Mcguire MD Subjective Subjective Complaint of chest pain Nausea Objective Last 24 Hour Vital Signs Date Time Temp Pulse Resp B/P (MAP) Pulse Ox O2 Delivery O2 Flow Rate FiO2 12/19/18 08:15 Nasal Cannula 2.0 12/19/18 08:00 99.1 68 18 106/49 (68) 98 12/19/18 04:00 97.5 69 19 121/56 (77) 96 12/19/18 00:21 97 Nasal Cannula 2.0 28 12/19/18 00:21 Nasal Cannula 2.0 28 12/18/18 23:47 98.2 63 19 116/53 (74) 99 12/18/18 21:45 68 135/67 12/18/18 21:00 Nasal Cannula 2.0 12/18/18 20:00 98.8 68 19 135/67 (89) 99 12/18/18 16:00 98.6 68 19 124/65 (84) 96 12/18/18 12:00 97.9 67 19 123/67 (85) 99 Intake and Output 12/18/18 12/19/18 19:00 07:00 Intake Total 480 ml 240 ml Output Total 1100 ml Balance 480 ml -860 ml Intake Oral 480 ml 240 ml Output Urine Total 1100 ml # Voids 2 4 Laboratory Tests Test 12/19/18 09:15 White Blood Count 4.6 K/UL (4.8-10.8) L Red Blood Count 2.96 M/UL (4.70-6.10) L Hemoglobin 7.1 G/DL (14.2-18.0) L Hematocrit 22.8 % (42.0-52.0) L Mean Corpuscular Volume 77 FL (80-99) L Mean Corpuscular Hemoglobin 24.2 PG (27.0-31.0) L Mean Corpuscular Hemoglobin Concent 31.4 G/DL (32.0-36.0) L Red Cell Distribution Width 24.2 % (11.6-14.8) H Platelet Count 121 K/UL (150-450) L Mean Platelet Volume 11.5 FL (6.5-10.1) H Neutrophils (%) (Auto) % (45.0-75.0) Lymphocytes (%) (Auto) % (20.0-45.0) Monocytes (%) (Auto) % (1.0-10.0) Eosinophils (%) (Auto) % (0.0-3.0) Basophils (%) (Auto) % (0.0-2.0) Differential Total Cells Counted 100 Neutrophils % (Manual) 25 % (45-75) L Lymphocytes % (Manual) 54 % (20-45) H Monocytes % (Manual) 16 % (1-10) H Eosinophils % (Manual) 2 % (0-3) Basophils % (Manual) 0 % (0-2) Myelocytes % 1 % (0-0) H Band Neutrophils 2 % (0-8) Reactive Lymphocytes 1+ Platelet Estimate Decreased L Platelet Morphology Giant Platelets 1+ Hypochromasia 1+ Anisocytosis 3+ Microcytosis 1+ Acanthocytes 1+ Sodium Level 135 MMOL/L (136-145) L Potassium Level 4.0 MMOL/L (3.5-5.1) Chloride Level 100 MMOL/L (98-107) Carbon Dioxide Level 29 MMOL/L (21-32) Anion Gap 6 mmol/L (5-15) Blood Urea Nitrogen 16 mg/dL (7-18) Creatinine 0.9 MG/DL (0.55-1.30) Estimat Glomerular Filtration Rate mL/min (>60) Glucose Level 130 MG/DL (74-106) H Calcium Level 8.2 MG/DL (8.5-10.1) L Total Bilirubin 0.8 MG/DL (0.2-1.0) Aspartate Amino Transf (AST/SGOT) 22 U/L (15-37) Alanine Aminotransferase (ALT/SGPT) 21 U/L (12-78) Alkaline Phosphatase 62 U/L (46-116) Total Protein 7.0 G/DL (6.4-8.2) Albumin 2.3 G/DL (3.4-5.0) L Globulin 4.7 g/dL Albumin/Globulin Ratio 0.5 (1.0-2.7) L Height (Feet): 5 Height (Inches): 5.00 Weight (Pounds): 150 General Appearance: WD/WN, no apparent distress, alert Cardiovascular: normal rate Respiratory/Chest: normal breath sounds, no respiratory distress Abdominal Exam: normal bowel sounds, non tender, soft Extremities: normal range of motion, non-tender Jason Gray NP Dec 19, 2018 11:20
--- NOTE | 2018-12-19 11:36 | Diagnostic Imaging Report ---
Indication: Shortness of breath Technique: One view of the chest Comparison: 12/09/2018 Findings: Persistent elevation right hemidiaphragm. There are increased interstitial and airspace parenchymal opacities in the right lung. There is some atelectasis or scarring at the right lung base, although this appears improved since prior study. There is again demonstrated a hiatal hernia. Equivocal mild interstitial congestion is unchanged. Left chest biventricular AICD again noted. Impression: Increasing right lung parenchymal opacities, could indicate increasing edema or inflammation. Slightly improved aeration at the right lung base. Persistent equivocal generalized mild interstitial congestion Stable incidental findings as noted
[2018-12-19 12:00] VITALS: BP 121/65
--- NOTE | 2018-12-19 13:07 | Pulmonology Progress Note ---
Assessment/Plan Problems: (1) Myeloblastic leukemia (2) Severe thrombocytopenia (3) ACS (acute coronary syndrome) (4) Cardiomyopathy (5) HTN (hypertension) (6) Pacemaker (7) Hypothyroidism (8) CAD (coronary artery disease) Assessment/Plan doing better, still nauseous on fentNAYL PACH dc all oral analgesics and try Fentanyl Patch doing better early leukemia PLT stable, better today check electrolytes no malignancy in bone marrow all reviewed symptomatic treatment dc planning Subjective Interval Events: doing better Allergies: Coded Allergies: No Known Allergies (Verified , 09/12/10) Objective Last 24 Hour Vital Signs Date Time Temp Pulse Resp B/P (MAP) Pulse Ox O2 Delivery O2 Flow Rate FiO2 12/19/18 12:00 98.1 68 18 121/65 (83) 97 12/19/18 08:15 Nasal Cannula 2.0 12/19/18 08:00 99.1 68 18 106/49 (68) 98 12/19/18 04:00 97.5 69 19 121/56 (77) 96 12/19/18 00:21 97 Nasal Cannula 2.0 28 12/19/18 00:21 Nasal Cannula 2.0 28 12/18/18 23:47 98.2 63 19 116/53 (74) 99 12/18/18 21:45 68 135/67 12/18/18 21:00 Nasal Cannula 2.0 12/18/18 20:00 98.8 68 19 135/67 (89) 99 12/18/18 16:00 98.6 68 19 124/65 (84) 96 Intake and Output 12/18/18 12/19/18 19:00 07:00 Intake Total 480 ml 240 ml Output Total 1100 ml Balance 480 ml -860 ml Intake Oral 480 ml 240 ml Output Urine Total 1100 ml # Voids 2 4 Objective General Appearance: cachetic Lines, tubes and drains: peripheral HEENT: normocephalic, atraumatic Neck: non-tender, normal alignment Respiratory/Chest: chest wall non-tender, lungs clear Breasts: no masses Cardiovascular/Chest: normal peripheral pulses, normal rate Abdomen: normal bowel sounds, non tender Genitourinary/Rectal: normal genital exam Extremities: normal range of motion Skin Exam: normal pigmentation 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 Laboratory Tests 12/19/18 09:15: White Blood Count 4.6L, Red Blood Count 2.96L, Hemoglobin 7.1L, Hematocrit 22.8L , Mean Corpuscular Volume 77L, Mean Corpuscular Hemoglobin 24.2L, Mean Corpuscular Hemoglobin Concent 31.4L, Red Cell Distribution Width 24.2H, Platelet Count 121L, Mean Platelet Volume 11.5H, Neutrophils (%) (Auto) , Lymphocytes (%) (Auto) , Monocytes (%) (Auto) , Eosinophils (%) (Auto) , Basophils (%) (Auto) , Differential Total Cells Counted 100, Neutrophils % ( Manual) 25L, Lymphocytes % (Manual) 54H, Monocytes % (Manual) 16H, Eosinophils % (Manual) 2, Basophils % (Manual) 0, Myelocytes % 1H, Band Neutrophils 2, Reactive Lymphocytes 1+, Platelet Estimate DecreasedL, Platelet Morphology , Giant Platelets 1+, Hypochromasia 1+, Anisocytosis 3+, Microcytosis 1+, Acanthocytes 1+, Sodium Level 135L, Potassium Level 4.0, Chloride Level 100, Carbon Dioxide Level 29, Anion Gap 6, Blood Urea Nitrogen 16, Creatinine 0.9, Estimat Glomerular Filtration Rate , Glucose Level 130H, Calcium Level 8.2L, Total Bilirubin 0.8, Aspartate Amino Transf (AST/SGOT) 22, Alanine Aminotransferase (ALT/SGPT) 21, Alkaline Phosphatase 62, Total Protein 7.0, Albumin 2.3L, Globulin 4.7, Albumin/Globulin Ratio 0.5L Current Medications Medications (Trade) Dose Ordered Sig/Scout Route PRN Reason Start Time Stop Time Status Last Admin Dose Admin Atorvastatin Calcium (Lipitor) 40 mg QHS ORAL 12/19/18 21:00 01/18/19 20:59 12/18/18 21:45 Bisacodyl (Dulcolax) 10 mg DAILYPRN PRN RECTAL Constipation 12/18/18 21:45 12/28/18 17:01 Carvedilol (Coreg) 12.5 mg EVERY 12 HOURS ORAL 12/19/18 09:00 01/18/19 08:59 12/18/18 21:45 Clonidine HCl (Catapres Tab) 0.1 mg Q2H PRN ORAL For High Blood Pressure 12/06/18 21:15 01/05/19 21:14 12/07/18 08:25 Docusate Sodium (Colace) 100 mg Q12H PRN ORAL Constipation 12/18/18 21:45 01/17/19 21:29 12/18/18 21:45 Escitalopram Oxalate (Lexapro) 15 mg DAILY ORAL 11/29/18 09:00 12/24/18 08:59 12/19/18 08:54 Famotidine (Pepcid) 20 mg QHS ORAL 11/30/18 21:00 12/30/18 20:59 12/18/18 21:44 Fentanyl (Duragesic) 1 patch Q72H TDERMAL 12/17/18 18:00 12/24/18 17:59 12/17/18 18:00 Miscellaneous Medication (fentaNYL Destruction) 1 ea Q72H MISC 12/20/18 17:59 01/19/19 17:58 Morphine Sulfate (Morphine Sulfate) 2 mg Q4H PRN IM For Pain 12/15/18 22:30 12/22/18 22:29 12/19/18 11:20 Naloxone HCl (Narcan) 0.1 mg PRN IV Sedation scale 3 or 4 12/08/18 15:15 01/07/19 15:14 Ondansetron HCl (Zofran ODT) 4 mg Q4H PRN ORAL Nausea & Vomiting 12/07/18 10:00 01/06/19 09:59 12/16/18 15:20 Polyethylene Glycol (Miralax) 17 gm DAILYPRN PRN ORAL Constipation 12/18/18 21:45 12/28/18 17:03 Chepe Luong MD Dec 19, 2018 13:07
--- NOTE | 2018-12-19 13:35 | Cardiac Electrophysiology PN ---
Assessment/Plan Assessment/Plan 1. Atypical chest pain and hx of CABG. Likely due to severe anemia. Ruled out [place]. Nuclear stress test cancelled for severe anemia. Reschedule after pancytopenia is resolved as out patient. On Lipitor and Coreg. Off Aspirin and Plavix for anemia and thrombocytopenia 2. Cardiomyopathy. EF now 55%. On Coreg 12.5 mg bid. Off Lisinopril and Lasix 3. Status post [facility] atrial biventricular defibrillator. Interrogated and showed Nl Fx 4. Severe anemia, S/P PRBC. FU GI. 5. Pancytopenia with Platelet count of 17. Off Aspirin and PLavix S/P platelet transfusion. S/P BM biopsy 11/29/18. S/P PRBC Bone marrow bipsy/aspiration, LEUKEMIA with 8.7% myeloblasts, FU by Dr Stock Subjective Subjective No CP or SOB. Objective Last 24 Hour Vital Signs Date Time Temp Pulse Resp B/P (MAP) Pulse Ox O2 Delivery O2 Flow Rate FiO2 12/19/18 12:00 98.1 68 18 121/65 (83) 97 12/19/18 08:15 Nasal Cannula 2.0 12/19/18 08:00 99.1 68 18 106/49 (68) 98 12/19/18 04:00 97.5 69 19 121/56 (77) 96 12/19/18 00:21 97 Nasal Cannula 2.0 28 12/19/18 00:21 Nasal Cannula 2.0 28 12/18/18 23:47 98.2 63 19 116/53 (74) 99 12/18/18 21:45 68 135/67 12/18/18 21:00 Nasal Cannula 2.0 12/18/18 20:00 98.8 68 19 135/67 (89) 99 12/18/18 16:00 98.6 68 19 124/65 (84) 96 Intake and Output 12/18/18 12/19/18 19:00 07:00 Intake Total 480 ml 240 ml Output Total 1100 ml Balance 480 ml -860 ml Intake Oral 480 ml 240 ml Output Urine Total 1100 ml # Voids 2 4 Laboratory Tests Test 12/19/18 09:15 White Blood Count 4.6 K/UL (4.8-10.8) L Red Blood Count 2.96 M/UL (4.70-6.10) L Hemoglobin 7.1 G/DL (14.2-18.0) L Hematocrit 22.8 % (42.0-52.0) L Mean Corpuscular Volume 77 FL (80-99) L Mean Corpuscular Hemoglobin 24.2 PG (27.0-31.0) L Mean Corpuscular Hemoglobin Concent 31.4 G/DL (32.0-36.0) L Red Cell Distribution Width 24.2 % (11.6-14.8) H Platelet Count 121 K/UL (150-450) L Mean Platelet Volume 11.5 FL (6.5-10.1) H Neutrophils (%) (Auto) % (45.0-75.0) Lymphocytes (%) (Auto) % (20.0-45.0) Monocytes (%) (Auto) % (1.0-10.0) Eosinophils (%) (Auto) % (0.0-3.0) Basophils (%) (Auto) % (0.0-2.0) Differential Total Cells Counted 100 Neutrophils % (Manual) 25 % (45-75) L Lymphocytes % (Manual) 54 % (20-45) H Monocytes % (Manual) 16 % (1-10) H Eosinophils % (Manual) 2 % (0-3) Basophils % (Manual) 0 % (0-2) Myelocytes % 1 % (0-0) H Band Neutrophils 2 % (0-8) Reactive Lymphocytes 1+ Platelet Estimate Decreased L Platelet Morphology Giant Platelets 1+ Hypochromasia 1+ Anisocytosis 3+ Microcytosis 1+ Acanthocytes 1+ Sodium Level 135 MMOL/L (136-145) L Potassium Level 4.0 MMOL/L (3.5-5.1) Chloride Level 100 MMOL/L (98-107) Carbon Dioxide Level 29 MMOL/L (21-32) Anion Gap 6 mmol/L (5-15) Blood Urea Nitrogen 16 mg/dL (7-18) Creatinine 0.9 MG/DL (0.55-1.30) Estimat Glomerular Filtration Rate mL/min (>60) Glucose Level 130 MG/DL (74-106) H Calcium Level 8.2 MG/DL (8.5-10.1) L Total Bilirubin 0.8 MG/DL (0.2-1.0) Aspartate Amino Transf (AST/SGOT) 22 U/L (15-37) Alanine Aminotransferase (ALT/SGPT) 21 U/L (12-78) Alkaline Phosphatase 62 U/L (46-116) Total Protein 7.0 G/DL (6.4-8.2) Albumin 2.3 G/DL (3.4-5.0) L Globulin 4.7 g/dL Albumin/Globulin Ratio 0.5 (1.0-2.7) L Objective HEAD AND NECK: No JVD. LUNGS: Coarse rhonchi. CARDIOVASCULAR: Regular S1 and S2 with no gallop or murmur. Sternotomy is intact. ICD in left subclavian. ABDOMEN: Soft. EXTREMITIES: 1+ pitting edema. Satinder Gee MD Dec 19, 2018 13:35
[2018-12-19 16:00] VITALS: BP 108/51
--- NOTE | 2018-12-19 17:44 | Internal Med Progress Note ---
Subjective Physician Name Abdias Hunter Attending Physician Abdias Hunter MD Current Medications Medications (Trade) Dose Ordered Sig/Scout Route PRN Reason Start Time Stop Time Status Last Admin Dose Admin Atorvastatin Calcium (Lipitor) 40 mg QHS ORAL 12/19/18 21:00 01/18/19 20:59 12/18/18 21:45 Bisacodyl (Dulcolax) 10 mg DAILYPRN PRN RECTAL Constipation 12/18/18 21:45 12/28/18 17:01 Carvedilol (Coreg) 12.5 mg EVERY 12 HOURS ORAL 12/19/18 09:00 01/18/19 08:59 12/18/18 21:45 Clonidine HCl (Catapres Tab) 0.1 mg Q2H PRN ORAL For High Blood Pressure 12/06/18 21:15 01/05/19 21:14 12/07/18 08:25 Docusate Sodium (Colace) 100 mg Q12H PRN ORAL Constipation 12/18/18 21:45 01/17/19 21:29 12/18/18 21:45 Escitalopram Oxalate (Lexapro) 15 mg DAILY ORAL 11/29/18 09:00 12/24/18 08:59 12/19/18 08:54 Famotidine (Pepcid) 20 mg QHS ORAL 11/30/18 21:00 12/30/18 20:59 12/18/18 21:44 Fentanyl (Duragesic) 1 patch Q72H TDERMAL 12/17/18 18:00 12/24/18 17:59 12/17/18 18:00 Miscellaneous Medication (fentaNYL Destruction) 1 ea Q72H MISC 12/20/18 17:59 01/19/19 17:58 Morphine Sulfate (Morphine Sulfate) 2 mg Q4H PRN IM For Pain 12/15/18 22:30 12/22/18 22:29 12/19/18 11:20 Naloxone HCl (Narcan) 0.1 mg PRN IV Sedation scale 3 or 4 12/08/18 15:15 01/07/19 15:14 Ondansetron HCl (Zofran ODT) 4 mg Q4H PRN ORAL Nausea & Vomiting 12/07/18 10:00 01/06/19 09:59 12/16/18 15:20 Polyethylene Glycol (Miralax) 17 gm DAILYPRN PRN ORAL Constipation 12/18/18 21:45 12/28/18 17:03 Allergies: Coded Allergies: No Known Allergies (Verified , 09/12/10) Subjective Patient is alert, oriented, no acute distress, no chest pain. Objective Last Vital Signs Date Time Temp Pulse Resp B/P (MAP) Pulse Ox O2 Delivery O2 Flow Rate FiO2 12/19/18 16:00 97.2 68 18 108/51 (70) 97 12/19/18 08:15 Nasal Cannula 2.0 12/19/18 07:00 28 Laboratory Tests Test 12/19/18 09:15 White Blood Count 4.6 K/UL (4.8-10.8) L Red Blood Count 2.96 M/UL (4.70-6.10) L Hemoglobin 7.1 G/DL (14.2-18.0) L Hematocrit 22.8 % (42.0-52.0) L Mean Corpuscular Volume 77 FL (80-99) L Mean Corpuscular Hemoglobin 24.2 PG (27.0-31.0) L Mean Corpuscular Hemoglobin Concent 31.4 G/DL (32.0-36.0) L Red Cell Distribution Width 24.2 % (11.6-14.8) H Platelet Count 121 K/UL (150-450) L Mean Platelet Volume 11.5 FL (6.5-10.1) H Neutrophils (%) (Auto) % (45.0-75.0) Lymphocytes (%) (Auto) % (20.0-45.0) Monocytes (%) (Auto) % (1.0-10.0) Eosinophils (%) (Auto) % (0.0-3.0) Basophils (%) (Auto) % (0.0-2.0) Differential Total Cells Counted 100 Neutrophils % (Manual) 25 % (45-75) L Lymphocytes % (Manual) 54 % (20-45) H Monocytes % (Manual) 16 % (1-10) H Eosinophils % (Manual) 2 % (0-3) Basophils % (Manual) 0 % (0-2) Myelocytes % 1 % (0-0) H Band Neutrophils 2 % (0-8) Reactive Lymphocytes 1+ Platelet Estimate Decreased L Platelet Morphology Giant Platelets 1+ Hypochromasia 1+ Anisocytosis 3+ Microcytosis 1+ Acanthocytes 1+ Sodium Level 135 MMOL/L (136-145) L Potassium Level 4.0 MMOL/L (3.5-5.1) Chloride Level 100 MMOL/L (98-107) Carbon Dioxide Level 29 MMOL/L (21-32) Anion Gap 6 mmol/L (5-15) Blood Urea Nitrogen 16 mg/dL (7-18) Creatinine 0.9 MG/DL (0.55-1.30) Estimat Glomerular Filtration Rate mL/min (>60) Glucose Level 130 MG/DL (74-106) H Calcium Level 8.2 MG/DL (8.5-10.1) L Total Bilirubin 0.8 MG/DL (0.2-1.0) Aspartate Amino Transf (AST/SGOT) 22 U/L (15-37) Alanine Aminotransferase (ALT/SGPT) 21 U/L (12-78) Alkaline Phosphatase 62 U/L (46-116) Total Protein 7.0 G/DL (6.4-8.2) Albumin 2.3 G/DL (3.4-5.0) L Globulin 4.7 g/dL Albumin/Globulin Ratio 0.5 (1.0-2.7) L Intake and Output 12/18/18 12/19/18 19:00 07:00 Intake Total 480 ml 240 ml Output Total 1100 ml Balance 480 ml -860 ml Intake Oral 480 ml 240 ml Output Urine Total 1100 ml # Voids 2 4 Objective General: No acute distress, awake and alert HEENT: NCAT, sclera anicteric, PERRL, EOMI. Neck: Supple, no significant jugular venous distention, Lungs: Good inspiratory effort, clear to auscultation bilaterally, no Wheeze or Rales. Heart: Regular rate and rhythm, normal S1/S2, no murmur, AICD @ [facility]. Abdomen: soft, nontender, nondistended. Normoactive bowel sounds. Extremities: No Cyanosis , clubbing or edema. Neuro: A&O x 3, Able to move all extremities Assessment/Plan Assessment/Plan 1. Chest pain, possible acute coronary syndrome. 2. Hypertension. 3. Dyslipidemia. 4. Congestive heart failure. 5. Coronary artery disease. 6. Sick sinus syndrome, status pacemaker. 7. Acute E. coli UTI. 8. 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 PLAN: Dr. Gee from Cardiology Electrophysiology. Await cardiac nuclear stress test-outpatient Dr. Luong, Pulmonary Critical Care. DVT prophylaxis: SCD Code status, Full Code. S/P transfusion 2 units PRBC on 11/19/18 waiting for SNF placement. Abx: Off CXR (12/19/2018) Impression: Increasing right lung parenchymal opacities, could indicate increasing edema or inflammation. Slightly improved aeration at the right lung base. Persistent equivocal generalized mild interstitial congestion Abdias Hunter MD Dec 19, 2018 17:43
--- NOTE | 2018-12-19 18:03 | General Progress Note ---
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 --> Hep panel and HIV negative, hep C++++ --> US abd to evaluate for cirrhosis and hsm reviewed --> Peripheral smear ordered to evaluate for blasts /schistocytes --> abx and other meds have been reviewed --> ok for ppx if plt >50k w/ either heparin or lovenox --> Transfuse if Plt < 20k and fever, or if Plt < 10k without fever --->Plt trend 70-->65-->44-->86 # Anemia of chronic disease, some minor hemolysis is noted --> Anemia workup has been reviewed,bertha test is negative, retic reviewed --> Hgb goal >7. Transfuse prn. --> Epogen or iron at this time is not particularly indicated --> Medications have been reviewed --> Hgb trend: 9-->8.7-->7.9-->7-->7.6 # Reticulocytosis with elevated bilirubin that is indirect --> reviewed direct and indirect bilis again, trend could have liver disease --> liver US shows no significant cirrhosis --> evaluate as needed with gi team, recs apprecaited #. Chest pain, possible acute coronary syndrome. --> cards recs appreciated as well as pulm --> stress test prn # Hypertension. # Dyslipidemia. # Chf # Coronary artery disease. # Sick sinus syndrome, status pacemaker. # Acute E. coli UTI. # Hep C+++ needs op management The timing of this note does not necessarily reflect the time of the patient was seen. Greatly appreciate consultation! Subjective HEENT: Denies: no symptoms, eye pain, blurred vision, tearing, double vision, ear pain, ear discharge, nose pain, nose congestion, throat pain, throat swelling, mouth pain, mouth swelling, other Cardiovascular: Denies: no symptoms, chest pain, edema, irregular heart rate, lightheadedness, palpitations, syncope, other Respiratory: Denies: no symptoms, cough, orthopnea, shortness of breath, SOB with excertion, SOB at rest, sputum, stridor, wheezing, other Gastrointestinal/Abdominal: Denies: no symptoms, abdomen distended, abdominal pain, black stools, tarry stools, blood in stool, constipated, diarrhea, difficulty swallowing, nausea, poor appetite, poor fluid intake, rectal bleeding , vomiting, other Genitourinary: Denies: no symptoms, burning, discharge, frequency, flank pain, hematuria, incontinence, pain, urgency, other Endocrine: Denies: no symptoms, excessive sweating, flushing, intolerance to cold, intolerance to heat, increased hunger, increased thirst, increased urine, unexplained weight gain, unexplained weight loss, other Hematologic/Lymphatic: Denies: no symptoms, anemia, easy bleeding, easy bruising, other Allergies: Coded Allergies: No Known Allergies (Verified , 09/12/10) Subjective 11/27: no events to report, no f/c 11/28: seen by bedside, plt 65, plan for EGD and bone marrow biopsy tomorrow 11/29: BM biopsy today, no acute distress. 11/30: Had BM biopsy yesterday and now in reverse isolation. hgb 7.5, will transfuse as needed. 12/01: seen by bedside, plt remains low, awaiting bone marrow biopsy results. 12/02: No acute distress, no chest pain, no shortness of breath, wbc 2.7, hgb 7.3 , plt 50, will transfuse as needed. S/P BM biopsy 11/29/18, Results pending 12/04: bone marrow biopsy completed, and show myeloblasts, c/w mds/leukemia, requires close surveillance 12/05: hgb 6.9, Had blood transfusion today, plt up trending, no events 12/06: Seen by bedside, overall improved, still has complaint of chest pain, plt trending up 12/07: Given 1 unit prbc, continues to c/o chest pain, seen by cards 12/08: seen by bedside, complains of pain, plt 106, no events 12/09: awake, comfortable, plt trending down at 69, no events 12/11: awake, comfortable, on NC, plt remains low at 70. 12/12: awake, comfortable, plt 65, no events 12/13: seen by bedside, awake , comfortable, pending labs. 12/14: awake, comfortable, hgb 7.9, monitor, will transfuse as needed, plt trending down at 44, 12/15: seen by bedside, awake, comfortable, hgb 7, will transfuse as needed, plt 82. 3: awake comfortable, no events, hgb trending up 12/18: seen by bedside, alert, oriented, no acute distress 12/19: no events noted, no fevers or chills, cbc has been reviewed, had blasts on smear this wknd Objective Last 24 Hour Vital Signs Date Time Temp Pulse Resp B/P (MAP) Pulse Ox O2 Delivery O2 Flow Rate FiO2 12/19/18 16:00 97.2 68 18 108/51 (70) 97 12/19/18 12:00 98.1 68 18 121/65 (83) 97 12/19/18 08:15 Nasal Cannula 2.0 12/19/18 08:00 99.1 68 18 106/49 (68) 98 12/19/18 07:00 Nasal Cannula 2.0 28 12/19/18 07:00 98 Nasal Cannula 2.0 28 12/19/18 04:00 97.5 69 19 121/56 (77) 96 12/19/18 00:21 97 Nasal Cannula 2.0 28 12/19/18 00:21 Nasal Cannula 2.0 28 12/18/18 23:47 98.2 63 19 116/53 (74) 99 12/18/18 21:45 68 135/67 12/18/18 21:00 Nasal Cannula 2.0 12/18/18 20:00 98.8 68 19 135/67 (89) 99 Intake and Output 12/18/18 12/19/18 19:00 07:00 Intake Total 480 ml 240 ml Output Total 1100 ml Balance 480 ml -860 ml Intake Oral 480 ml 240 ml Output Urine Total 1100 ml # Voids 2 4 Laboratory Tests 12/19/18 09:15: White Blood Count 4.6L, Red Blood Count 2.96L, Hemoglobin 7.1L, Hematocrit 22.8L , Mean Corpuscular Volume 77L, Mean Corpuscular Hemoglobin 24.2L, Mean Corpuscular Hemoglobin Concent 31.4L, Red Cell Distribution Width 24.2H, Platelet Count 121L, Mean Platelet Volume 11.5H, Neutrophils (%) (Auto) , Lymphocytes (%) (Auto) , Monocytes (%) (Auto) , Eosinophils (%) (Auto) , Basophils (%) (Auto) , Differential Total Cells Counted 100, Neutrophils % ( Manual) 25L, Lymphocytes % (Manual) 54H, Monocytes % (Manual) 16H, Eosinophils % (Manual) 2, Basophils % (Manual) 0, Myelocytes % 1H, Band Neutrophils 2, Reactive Lymphocytes 1+, Platelet Estimate DecreasedL, Platelet Morphology , Giant Platelets 1+, Hypochromasia 1+, Anisocytosis 3+, Microcytosis 1+, Acanthocytes 1+, Sodium Level 135L, Potassium Level 4.0, Chloride Level 100, Carbon Dioxide Level 29, Anion Gap 6, Blood Urea Nitrogen 16, Creatinine 0.9, Estimat Glomerular Filtration Rate , Glucose Level 130H, Calcium Level 8.2L, Total Bilirubin 0.8, Aspartate Amino Transf (AST/SGOT) 22, Alanine Aminotransferase (ALT/SGPT) 21, Alkaline Phosphatase 62, Total Protein 7.0, Albumin 2.3L, Globulin 4.7, Albumin/Globulin Ratio 0.5L Height (Feet): 5 Height (Inches): 5.00 Weight (Pounds): 150 Objective General: well appearing, nad, alert Head: normocephalic, atraumatic Eyes: b/l eye PERRL, bilateral eye EOMI ENT: hearing grossly normal, normal pharynx Neck: full range of motion, supple, no meningismus Respiratory: chest non-tender, lungs clear, normal breath sounds, NC++ Cardiovascular: regular rate, rhythm, no murmur Gastrointestinal: normal bowel sounds, non tender, no mass, no organomegaly, no bruit, non-distended Musculoskeletal: back normal, normal range of motion Psychiatric: mood/affect normal Skin: warm/dry Jose Alberto España MD Dec 19, 2018 18:03
[2018-12-19 20:00] VITALS: BP 124/59
[2018-12-19] MEDS: Carvedilol 12.5mg tab ORAL SCH (21:26)
[2018-12-19] MEDS: Atorvastatin 20mg tab ORAL SCH (21:27)
[2018-12-20] VITALS: BP 124/60
[2018-12-20] MEDS: Morphine Sulfate 2mg/ml Inj(IV/IM USE ONLY) IM PRN ×4 (03:44→20:07)
[2018-12-20 04:01] VITALS: BP 114/61
[2018-12-20 07:01] LABS: ANION GAP 5 mmol/L (5-15); BLOOD UREA NITROGEN 17 mg/dL (7-18); CALCIUM 8.3 MG/DL (8.5-10.1); CARBON DIOXIDE 31 MMOL/L (21-32); CHLORIDE 100 MMOL/L (98-107); CREATININE 0.9 MG/DL (0.55-1.30); POTASSIUM 3.9 MMOL/L (3.5-5.1); SODIUM 136 MMOL/L (136-145)
[2018-12-20 07:53] LABS: HEMATOCRIT 24.2 % (42.0-52.0); HEMOGLOBIN 7.4 G/DL (14.2-18.0); MEAN CORPUSCULAR VOLUME 77 FL (80-99); RED BLOOD COUNT 3.15 M/UL (4.70-6.10); RED CELL DISTRIBUTION WIDTH 24.4 % (11.6-14.8)
[2018-12-20 08:12] VITALS: BP 127/55
[2018-12-20 08:14] LABS: PLATELET COUNT 122 K/UL (150-450)
[2018-12-20] MEDS: Carvedilol 12.5mg tab ORAL SCH ×2 (09:04→20:05)
--- NOTE | 2018-12-20 11:25 | GI Progress Note ---
Assessment/Plan Problems: (1) History of CVA (cerebrovascular accident) ICD Codes: Z86.73 - Personal history of transient ischemic attack (TIA), and cerebral infarction without residual deficits SNOMED: 318620902 (2) Severe anemia ICD Codes: D64.9 - Anemia, unspecified SNOMED: 155205882 (3) Abdominal pain ICD Codes: R10.9 - Unspecified abdominal pain SNOMED: 52582452 (4) GERD (gastroesophageal reflux disease) ICD Codes: K21.9 - Gastro-esophageal reflux disease without esophagitis SNOMED: 909151481 Status: stable, unchanged Status Narrative Discussed with Dr. Mcguire Assessment/Plan SUMMARY OF FINDINGS: 1. Gastritis. 2. A 6 cm hiatal hernia. Refusing a.m. lab draws OB stool uncollected RECOMMENDATIONS: Follow up biopsy results and treat accordingly. >> Mild chronic gastritis. Negative for H. pylori negative negative for dysplasia or malignancy. BM biopsy>> leukemia>> fu oncology monitor H&H, prn transfusions. bowel regime ppi, H2B qhs Zofran as needed fu labs Outpatient hep C treatment dc planning The patient was seen and examined at bedside and all new and available data was reviewed in the patients chart. I agree with the above findings, impression and plan. (Patient seen earlier today. Signature stamp does not reflect patient encounter time.). - Richie Mcguire MD Subjective Gastrointestinal/Abdominal: Reports: no symptoms Subjective Complaint of chest pain Nausea Objective Last 24 Hour Vital Signs Date Time Temp Pulse Resp B/P (MAP) Pulse Ox O2 Delivery O2 Flow Rate FiO2 12/20/18 09:19 Nasal Cannula 2.0 12/20/18 09:04 61 133/60 12/20/18 08:12 97.4 65 15 127/55 (79) 96 12/20/18 04:01 97.1 65 20 114/61 (78) 97 12/20/18 00:00 98.2 68 17 124/60 (81) 100 12/19/18 21:26 66 124/59 12/19/18 21:00 Nasal Cannula 2.0 12/19/18 20:55 96 Nasal Cannula 2.0 28 12/19/18 20:55 Nasal Cannula 2.0 28 12/19/18 20:00 98.2 66 17 124/59 (80) 100 12/19/18 16:00 97.2 68 18 108/51 (70) 97 12/19/18 12:00 98.1 18 121/65 (83) 97 Intake and Output 12/19/18 12/20/18 18:59 06:59 Intake Total 450 ml 250 ml Output Total 300 ml 450 ml Balance 150 ml -200 ml Intake Oral 450 ml 250 ml Output Urine Total 300 ml 450 ml # Voids 4 3 Laboratory Tests Test 12/20/18 06:10 White Blood Count 5.0 K/UL (4.8-10.8) Red Blood Count 3.15 M/UL (4.70-6.10) L Hemoglobin 7.4 G/DL (14.2-18.0) L Hematocrit 24.2 % (42.0-52.0) L Mean Corpuscular Volume 77 FL (80-99) L Mean Corpuscular Hemoglobin 23.4 PG (27.0-31.0) L Mean Corpuscular Hemoglobin Concent 30.4 G/DL (32.0-36.0) L Red Cell Distribution Width 24.4 % (11.6-14.8) H Platelet Count 122 K/UL (150-450) L Mean Platelet Volume 13.6 FL (6.5-10.1) H Neutrophils (%) (Auto) % (45.0-75.0) Lymphocytes (%) (Auto) % (20.0-45.0) Monocytes (%) (Auto) % (1.0-10.0) Eosinophils (%) (Auto) % (0.0-3.0) Basophils (%) (Auto) % (0.0-2.0) Differential Total Cells Counted 100 Neutrophils % (Manual) 19 % (45-75) L Lymphocytes % (Manual) 54 % (20-45) H Monocytes % (Manual) 20 % (1-10) H Eosinophils % (Manual) 3 % (0-3) Basophils % (Manual) 0 % (0-2) Myelocytes % 1 % (0-0) H Band Neutrophils 3 % (0-8) Reactive Lymphocytes 1+ Platelet Estimate Decreased L Platelet Morphology Giant Platelets 1+ Hypochromasia 1+ Anisocytosis 3+ Microcytosis 1+ Acanthocytes Occasional Schistocytes Occasional Sodium Level 136 MMOL/L (136-145) Potassium Level 3.9 MMOL/L (3.5-5.1) Chloride Level 100 MMOL/L (98-107) Carbon Dioxide Level 31 MMOL/L (21-32) Anion Gap 5 mmol/L (5-15) Blood Urea Nitrogen 17 mg/dL (7-18) Creatinine 0.9 MG/DL (0.55-1.30) Estimat Glomerular Filtration Rate mL/min (>60) Glucose Level 91 MG/DL (74-106) Calcium Level 8.3 MG/DL (8.5-10.1) L Height (Feet): 5 Height (Inches): 5.00 Weight (Pounds): 151 General Appearance: WD/WN, no apparent distress, alert, thin Cardiovascular: normal rate Respiratory/Chest: normal breath sounds, no respiratory distress Abdominal Exam: normal bowel sounds, non tender, soft Extremities: normal range of motion, non-tender Jason Gray NP Dec 20, 2018 11:25
[2018-12-20 12:00] VITALS: BP 109/54
[2018-12-20] MEDS ORDERED: DURAGESIC1 EACH TDERMAL (12:24)
--- NOTE | 2018-12-20 12:24 | Pulmonology Progress Note ---
Assessment/Plan Problems: (1) Myeloblastic leukemia (2) Severe thrombocytopenia (3) ACS (acute coronary syndrome) (4) Cardiomyopathy (5) HTN (hypertension) (6) Pacemaker (7) Hypothyroidism (8) CAD (coronary artery disease) Assessment/Plan doing better, still nauseous on fentNAYL PACH dc all oral analgesics and try Fentanyl Patch doing better early leukemia PLT stable, better today check electrolytes no malignancy in bone marrow all reviewed symptomatic treatment dc planning Subjective ROS Limited/Unobtainable: No Constitutional: Reports: no symptoms HEENT: Repors: no symptoms Respiratory: Reports: no symptoms Allergies: Coded Allergies: No Known Allergies (Verified , 09/12/10) Objective Last 24 Hour Vital Signs Date Time Temp Pulse Resp B/P (MAP) Pulse Ox O2 Delivery O2 Flow Rate FiO2 12/20/18 09:19 Nasal Cannula 2.0 12/20/18 09:04 61 133/60 12/20/18 08:12 97.4 65 15 127/55 (79) 96 12/20/18 04:01 97.1 65 20 114/61 (78) 97 12/20/18 00:00 98.2 68 17 124/60 (81) 100 12/19/18 21:26 66 124/59 12/19/18 21:00 Nasal Cannula 2.0 12/19/18 20:55 96 Nasal Cannula 2.0 28 12/19/18 20:55 Nasal Cannula 2.0 28 12/19/18 20:00 98.2 66 17 124/59 (80) 100 12/19/18 16:00 97.2 68 18 108/51 (70) 97 Intake and Output 12/19/18 12/20/18 19:00 07:00 Intake Total 450 ml 250 ml Output Total 300 ml 450 ml Balance 150 ml -200 ml Intake Oral 450 ml 250 ml Output Urine Total 300 ml 450 ml # Voids 4 3 Objective General Appearance: cachetic Lines, tubes and drains: peripheral HEENT: normocephalic, atraumatic Neck: non-tender, normal alignment Respiratory/Chest: chest wall non-tender, lungs clear Breasts: no masses Cardiovascular/Chest: normal peripheral pulses, normal rate Abdomen: normal bowel sounds, non tender Genitourinary/Rectal: normal genital exam Extremities: normal range of motion Skin Exam: normal pigmentation Neurologic: clip wrapper II-XII grossly normal Laboratory Tests 12/20/18 06:10: White Blood Count 5.0, Red Blood Count 3.15L, Hemoglobin 7.4L, Hematocrit 24.2L , Mean Corpuscular Volume 77L, Mean Corpuscular Hemoglobin 23.4L, Mean Corpuscular Hemoglobin Concent 30.4L, Red Cell Distribution Width 24.4H, Platelet Count 122L, Mean Platelet Volume 13.6H, Neutrophils (%) (Auto) , Lymphocytes (%) (Auto) , Monocytes (%) (Auto) , Eosinophils (%) (Auto) , Basophils (%) (Auto) , Differential Total Cells Counted 100, Neutrophils % ( Manual) 19L, Lymphocytes % (Manual) 54H, Monocytes % (Manual) 20H, Eosinophils % (Manual) 3, Basophils % (Manual) 0, Myelocytes % 1H, Band Neutrophils 3, Reactive Lymphocytes 1+, Platelet Estimate DecreasedL, Platelet Morphology , Giant Platelets 1+, Hypochromasia 1+, Anisocytosis 3+, Microcytosis 1+, Acanthocytes Occasional, Schistocytes Occasional, Sodium Level 136, Potassium Level 3.9, Chloride Level 100, Carbon Dioxide Level 31, Anion Gap 5, Blood Urea Nitrogen 17, Creatinine 0.9, Estimat Glomerular Filtration Rate , Glucose Level 91, Calcium Level 8.3L Current Medications Medications (Trade) Dose Ordered Sig/Scout Route PRN Reason Start Time Stop Time Status Last Admin Dose Admin Atorvastatin Calcium (Lipitor) 40 mg QHS ORAL 12/19/18 21:00 01/18/19 20:59 12/19/18 21:27 Bisacodyl (Dulcolax) 10 mg DAILYPRN PRN RECTAL Constipation 12/18/18 21:45 12/28/18 17:01 Carvedilol (Coreg) 12.5 mg EVERY 12 HOURS ORAL 12/19/18 09:00 01/18/19 08:59 12/20/18 09:04 Clonidine HCl (Catapres Tab) 0.1 mg Q2H PRN ORAL For High Blood Pressure 12/06/18 21:15 01/05/19 21:14 12/07/18 08:25 Docusate Sodium (Colace) 100 mg Q12H PRN ORAL Constipation 12/18/18 21:45 01/17/19 21:29 12/18/18 21:45 Escitalopram Oxalate (Lexapro) 15 mg DAILY ORAL 11/29/18 09:00 12/24/18 08:59 12/20/18 09:04 Famotidine (Pepcid) 20 mg QHS ORAL 11/30/18 21:00 12/30/18 20:59 12/19/18 21:27 Fentanyl (Duragesic) 1 patch Q72H TDERMAL 12/17/18 18:00 12/24/18 17:59 12/17/18 18:00 Furosemide (Lasix) 20 mg DAILY ORAL 12/19/18 17:45 01/18/19 17:44 12/20/18 09:04 Miscellaneous Medication (fentaNYL Destruction) 1 ea Q72H MISC 12/20/18 17:59 01/19/19 17:58 Morphine Sulfate (Morphine Sulfate) 2 mg Q4H PRN IM For Pain 12/15/18 22:30 12/22/18 22:29 12/20/18 09:13 Naloxone HCl (Narcan) 0.1 mg PRN IV Sedation scale 3 or 4 12/08/18 15:15 01/07/19 15:14 Ondansetron HCl (Zofran ODT) 4 mg Q4H PRN ORAL Nausea & Vomiting 12/07/18 10:00 01/06/19 09:59 12/16/18 15:20 Polyethylene Glycol (Miralax) 17 gm DAILYPRN PRN ORAL Constipation 12/18/18 21:45 12/28/18 17:03 Chepe Luong MD Dec 20, 2018 12:24
--- NOTE | 2018-12-20 15:20 | General Progress Note ---
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 --> Hep panel and HIV negative, hep C++++ --> US abd to evaluate for cirrhosis and hsm reviewed --> Peripheral smear ordered to evaluate for blasts /schistocytes --> abx and other meds have been reviewed --> ok for ppx if plt >50k w/ either heparin or lovenox --> Transfuse if Plt < 20k and fever, or if Plt < 10k without fever --->Plt trend 70-->65-->44-->86-->122 # Anemia of chronic disease, some minor hemolysis is noted --> Anemia workup has been reviewed,bertha test is negative, retic reviewed --> Hgb goal >7. Transfuse prn. --> Epogen or iron at this time is not particularly indicated --> Medications have been reviewed --> Hgb trend: 9-->8.7-->7.9-->7-->7.6-->7.4 # Reticulocytosis with elevated bilirubin that is indirect --> reviewed direct and indirect bilis again, trend could have liver disease --> liver US shows no significant cirrhosis --> evaluate as needed with gi team, recs apprecaited #. Chest pain, possible acute coronary syndrome. --> cards recs appreciated as well as pulm --> stress test prn # Hypertension. # Dyslipidemia. # Chf # Coronary artery disease. # Sick sinus syndrome, status pacemaker. # Acute E. coli UTI. # Hep C+++ needs op management The timing of this note does not necessarily reflect the time of the patient was seen. Greatly appreciate consultation! Subjective Constitutional: Denies: no symptoms, chills, diaphoresis, fever, malaise, weakness, other Cardiovascular: Denies: no symptoms, chest pain, edema, irregular heart rate, lightheadedness, palpitations, syncope, other Respiratory: Denies: no symptoms, cough, orthopnea, shortness of breath, SOB with excertion, SOB at rest, sputum, stridor, wheezing, other Gastrointestinal/Abdominal: Denies: no symptoms, abdomen distended, abdominal pain, black stools, tarry stools, blood in stool, constipated, diarrhea, difficulty swallowing, nausea, poor appetite, poor fluid intake, rectal bleeding , vomiting, other Endocrine: Denies: no symptoms, excessive sweating, flushing, intolerance to cold, intolerance to heat, increased hunger, increased thirst, increased urine, unexplained weight gain, unexplained weight loss, other Hematologic/Lymphatic: Denies: no symptoms, anemia, easy bleeding, easy bruising, other Allergies: Coded Allergies: No Known Allergies (Verified , 09/12/10) Subjective 11/27: no events to report, no f/c 11/28: seen by bedside, plt 65, plan for EGD and bone marrow biopsy tomorrow 11/29: BM biopsy today, no acute distress. 11/30: Had BM biopsy yesterday and now in reverse isolation. hgb 7.5, will transfuse as needed. 12/01: seen by bedside, plt remains low, awaiting bone marrow biopsy results. 12/02: No acute distress, no chest pain, no shortness of breath, wbc 2.7, hgb 7.3 , plt 50, will transfuse as needed. S/P BM biopsy 11/29/18, Results pending 3/3: bone marrow biopsy completed, and show myeloblasts, c/w mds/leukemia, requires close surveillance 3: hgb 6.9, Had blood transfusion today, plt up trending, no events 12/06: Seen by bedside, overall improved, still has complaint of chest pain, plt trending up 12/07: Given 1 unit prbc, continues to c/o chest pain, seen by cards 12/08: seen by bedside, complains of pain, plt 106, no events 12/09: awake, comfortable, plt trending down at 69, no events 12/11: awake, comfortable, on NC, plt remains low at 70. 12/12: awake, comfortable, plt 65, no events 12/13: seen by bedside, awake , comfortable, pending labs. 12/14: awake, comfortable, hgb 7.9, monitor, will transfuse as needed, plt trending down at 44, 12/15: seen by bedside, awake, comfortable, hgb 7, will transfuse as needed, plt 82. 3: awake comfortable, no events, hgb trending up 12/18: seen by bedside, alert, oriented, no acute distress 12/19: no events noted, no fevers or chills, cbc has been reviewed, had blasts on smear this wknd 12/20: seen by bedside, awake, comfortable, hgb 7.4, will transfuse as needed. Objective Last 24 Hour Vital Signs Date Time Temp Pulse Resp B/P (MAP) Pulse Ox O2 Delivery O2 Flow Rate FiO2 12/20/18 12:00 96.1 64 19 109/54 (72) 98 12/20/18 09:19 Nasal Cannula 2.0 12/20/18 09:04 61 133/60 12/20/18 08:12 97.4 65 15 127/55 (79) 96 12/20/18 04:01 97.1 65 20 114/61 (78) 97 12/20/18 00:00 98.2 68 17 124/60 (81) 100 12/19/18 21:26 66 124/59 12/19/18 21:00 Nasal Cannula 2.0 12/19/18 20:55 96 Nasal Cannula 2.0 28 12/19/18 20:55 Nasal Cannula 2.0 28 12/19/18 20:00 98.2 66 17 124/59 (80) 100 12/19/18 16:00 97.2 68 18 108/51 (70) 97 Intake and Output 12/19/18 12/20/18 19:00 07:00 Intake Total 450 ml 250 ml Output Total 300 ml 450 ml Balance 150 ml -200 ml Intake Oral 450 ml 250 ml Output Urine Total 300 ml 450 ml # Voids 4 3 Laboratory Tests 12/20/18 06:10: White Blood Count 5.0, Red Blood Count 3.15L, Hemoglobin 7.4L, Hematocrit 24.2L , Mean Corpuscular Volume 77L, Mean Corpuscular Hemoglobin 23.4L, Mean Corpuscular Hemoglobin Concent 30.4L, Red Cell Distribution Width 24.4H, Platelet Count 122L, Mean Platelet Volume 13.6H, Neutrophils (%) (Auto) , Lymphocytes (%) (Auto) , Monocytes (%) (Auto) , Eosinophils (%) (Auto) , Basophils (%) (Auto) , Differential Total Cells Counted 100, Neutrophils % ( Manual) 19L, Lymphocytes % (Manual) 54H, Monocytes % (Manual) 20H, Eosinophils % (Manual) 3, Basophils % (Manual) 0, Myelocytes % 1H, Band Neutrophils 3, Reactive Lymphocytes 1+, Platelet Estimate DecreasedL, Platelet Morphology , Giant Platelets 1+, Hypochromasia 1+, Anisocytosis 3+, Microcytosis 1+, Acanthocytes Occasional, Schistocytes Occasional, Sodium Level 136, Potassium Level 3.9, Chloride Level 100, Carbon Dioxide Level 31, Anion Gap 5, Blood Urea Nitrogen 17, Creatinine 0.9, Estimat Glomerular Filtration Rate , Glucose Level 91, Calcium Level 8.3L Height (Feet): 5 Height (Inches): 5.00 Weight (Pounds): 151 Objective General: well appearing, nad, alert Head: normocephalic, atraumatic Eyes: b/l eye PERRL, bilateral eye EOMI ENT: hearing grossly normal, normal pharynx Neck: full range of motion, supple, no meningismus Respiratory: chest non-tender, lungs clear, normal breath sounds, NC++ Cardiovascular: regular rate, rhythm, no murmur Gastrointestinal: normal bowel sounds, non tender, no mass, no organomegaly, no bruit, non-distended Musculoskeletal: back normal, normal range of motion Psychiatric: mood/affect normal Skin: warm/dry Jose Alberto España MD Dec 20, 2018 15:20
--- NOTE | 2018-12-20 15:55 | Cardiac Electrophysiology PN ---
Assessment/Plan Assessment/Plan 1. Atypical chest pain and hx of CABG. Likely due to severe anemia. Ruled out CT. Nuclear stress test cancelled for severe anemia. Reschedule after pancytopenia is resolved as out patient. On Lipitor and Coreg. Off Aspirin and Plavix for anemia and thrombocytopenia 2. Cardiomyopathy. EF now 55%. On Coreg 12.5 mg bid. 3. Status post [facility] atrial biventricular defibrillator. Interrogated and showed Nl Fx 4. Severe anemia, S/P PRBC. FU GI. 5. Pancytopenia with Platelet count of 17. Off Aspirin and PLavix S/P platelet transfusion. S/P BM biopsy 11/29/18. S/P PRBC Bone marrow bipsy/aspiration, LEUKEMIA with 8.7% myeloblasts, FU by Dr Stock Subjective Subjective No events Objective Last 24 Hour Vital Signs Date Time Temp Pulse Resp B/P (MAP) Pulse Ox O2 Delivery O2 Flow Rate FiO2 12/20/18 12:00 96.1 64 19 109/54 (72) 98 12/20/18 09:19 Nasal Cannula 2.0 12/20/18 09:04 61 133/60 12/20/18 08:12 97.4 65 15 127/55 (79) 96 12/20/18 04:01 97.1 65 20 114/61 (78) 97 12/20/18 00:00 98.2 68 17 124/60 (81) 100 12/19/18 21:26 66 124/59 12/19/18 21:00 Nasal Cannula 2.0 12/19/18 20:55 96 Nasal Cannula 2.0 28 12/19/18 20:55 Nasal Cannula 2.0 28 12/19/18 20:00 98.2 66 17 124/59 (80) 100 12/19/18 16:00 97.2 68 18 108/51 (70) 97 Intake and Output 12/19/18 12/20/18 19:00 07:00 Intake Total 450 ml 250 ml Output Total 300 ml 450 ml Balance 150 ml -200 ml Intake Oral 450 ml 250 ml Output Urine Total 300 ml 450 ml # Voids 4 3 Laboratory Tests Test 12/20/18 06:10 White Blood Count 5.0 K/UL (4.8-10.8) Red Blood Count 3.15 M/UL (4.70-6.10) L Hemoglobin 7.4 G/DL (14.2-18.0) L Hematocrit 24.2 % (42.0-52.0) L Mean Corpuscular Volume 77 FL (80-99) L Mean Corpuscular Hemoglobin 23.4 PG (27.0-31.0) L Mean Corpuscular Hemoglobin Concent 30.4 G/DL (32.0-36.0) L Red Cell Distribution Width 24.4 % (11.6-14.8) H Platelet Count 122 K/UL (150-450) L Mean Platelet Volume 13.6 FL (6.5-10.1) H Neutrophils (%) (Auto) % (45.0-75.0) Lymphocytes (%) (Auto) % (20.0-45.0) Monocytes (%) (Auto) % (1.0-10.0) Eosinophils (%) (Auto) % (0.0-3.0) Basophils (%) (Auto) % (0.0-2.0) Differential Total Cells Counted 100 Neutrophils % (Manual) 19 % (45-75) L Lymphocytes % (Manual) 54 % (20-45) H Monocytes % (Manual) 20 % (1-10) H Eosinophils % (Manual) 3 % (0-3) Basophils % (Manual) 0 % (0-2) Myelocytes % 1 % (0-0) H Band Neutrophils 3 % (0-8) Reactive Lymphocytes 1+ Platelet Estimate Decreased L Platelet Morphology Giant Platelets 1+ Hypochromasia 1+ Anisocytosis 3+ Microcytosis 1+ Acanthocytes Occasional Schistocytes Occasional Sodium Level 136 MMOL/L (136-145) Potassium Level 3.9 MMOL/L (3.5-5.1) Chloride Level 100 MMOL/L (98-107) Carbon Dioxide Level 31 MMOL/L (21-32) Anion Gap 5 mmol/L (5-15) Blood Urea Nitrogen 17 mg/dL (7-18) Creatinine 0.9 MG/DL (0.55-1.30) Estimat Glomerular Filtration Rate mL/min (>60) Glucose Level 91 MG/DL (74-106) Calcium Level 8.3 MG/DL (8.5-10.1) L Objective HEAD AND NECK: No JVD. LUNGS: Coarse rhonchi. CARDIOVASCULAR: Regular S1 and S2 with no gallop or murmur. Sternotomy is intact. ICD in left subclavian. ABDOMEN: Soft. EXTREMITIES: 1+ pitting edema. Satinder Gee MD Dec 20, 2018 15:55
[2018-12-20 16:00] VITALS: BP 116/54
[2018-12-20] MEDS: fentaNYL Destruction MISC SCH (18:00)
[2018-12-20 20:00] VITALS: BP 123/55
--- NOTE | 2018-12-20 23:32 | Internal Med Progress Note ---
Subjective Physician Name Abdias Hunter Attending Physician Abdias Hunter MD Current Medications Medications (Trade) Dose Ordered Sig/Scout Route PRN Reason Start Time Stop Time Status Last Admin Dose Admin Atorvastatin Calcium (Lipitor) 40 mg QHS ORAL 12/19/18 21:00 01/18/19 20:59 12/19/18 21:27 Bisacodyl (Dulcolax) 10 mg DAILYPRN PRN RECTAL Constipation 12/18/18 21:45 12/28/18 17:01 Carvedilol (Coreg) 12.5 mg EVERY 12 HOURS ORAL 12/19/18 09:00 01/18/19 08:59 12/20/18 20:05 Clonidine HCl (Catapres Tab) 0.1 mg Q2H PRN ORAL For High Blood Pressure 12/06/18 21:15 01/05/19 21:14 12/07/18 08:25 Docusate Sodium (Colace) 100 mg Q12H PRN ORAL Constipation 12/18/18 21:45 01/17/19 21:29 12/18/18 21:45 Escitalopram Oxalate (Lexapro) 15 mg DAILY ORAL 11/29/18 09:00 12/24/18 08:59 12/20/18 09:04 Famotidine (Pepcid) 20 mg QHS ORAL 11/30/18 21:00 12/30/18 20:59 12/20/18 20:06 Fentanyl (Duragesic) 1 patch Q72H TDERMAL 12/17/18 18:00 12/24/18 17:59 12/20/18 18:32 Furosemide (Lasix) 20 mg DAILY ORAL 12/19/18 17:45 01/18/19 17:44 12/20/18 09:04 Miscellaneous Medication (fentaNYL Destruction) 1 ea Q72H MISC 12/20/18 17:59 01/19/19 17:58 Morphine Sulfate (Morphine Sulfate) 2 mg Q4H PRN IM For Pain 12/15/18 22:30 12/22/18 22:29 12/20/18 20:07 Naloxone HCl (Narcan) 0.1 mg PRN IV Sedation scale 3 or 4 12/08/18 15:15 01/07/19 15:14 Ondansetron HCl (Zofran ODT) 4 mg Q4H PRN ORAL Nausea & Vomiting 12/07/18 10:00 01/06/19 09:59 12/16/18 15:20 Polyethylene Glycol (Miralax) 17 gm DAILYPRN PRN ORAL Constipation 12/18/18 21:45 12/28/18 17:03 Allergies: Coded Allergies: No Known Allergies (Verified , 09/12/10) Subjective Patient is alert, oriented, no acute distress, no chest pain. Objective Last Vital Signs Date Time Temp Pulse Resp B/P (MAP) Pulse Ox O2 Delivery O2 Flow Rate FiO2 12/20/18 21:00 Nasal Cannula 2.0 12/20/18 20:05 64 123/55 12/20/18 20:00 97.5 18 97 12/19/18 20:55 28 Laboratory Tests Test 12/20/18 06:10 White Blood Count 5.0 K/UL (4.8-10.8) Red Blood Count 3.15 M/UL (4.70-6.10) L Hemoglobin 7.4 G/DL (14.2-18.0) L Hematocrit 24.2 % (42.0-52.0) L Mean Corpuscular Volume 77 FL (80-99) L Mean Corpuscular Hemoglobin 23.4 PG (27.0-31.0) L Mean Corpuscular Hemoglobin Concent 30.4 G/DL (32.0-36.0) L Red Cell Distribution Width 24.4 % (11.6-14.8) H Platelet Count 122 K/UL (150-450) L Mean Platelet Volume 13.6 FL (6.5-10.1) H Neutrophils (%) (Auto) % (45.0-75.0) Lymphocytes (%) (Auto) % (20.0-45.0) Monocytes (%) (Auto) % (1.0-10.0) Eosinophils (%) (Auto) % (0.0-3.0) Basophils (%) (Auto) % (0.0-2.0) Differential Total Cells Counted 100 Neutrophils % (Manual) 19 % (45-75) L Lymphocytes % (Manual) 54 % (20-45) H Monocytes % (Manual) 20 % (1-10) H Eosinophils % (Manual) 3 % (0-3) Basophils % (Manual) 0 % (0-2) Myelocytes % 1 % (0-0) H Band Neutrophils 3 % (0-8) Reactive Lymphocytes 1+ Platelet Estimate Decreased L Platelet Morphology Giant Platelets 1+ Hypochromasia 1+ Anisocytosis 3+ Microcytosis 1+ Acanthocytes Occasional Schistocytes Occasional Sodium Level 136 MMOL/L (136-145) Potassium Level 3.9 MMOL/L (3.5-5.1) Chloride Level 100 MMOL/L (98-107) Carbon Dioxide Level 31 MMOL/L (21-32) Anion Gap 5 mmol/L (5-15) Blood Urea Nitrogen 17 mg/dL (7-18) Creatinine 0.9 MG/DL (0.55-1.30) Estimat Glomerular Filtration Rate mL/min (>60) Glucose Level 91 MG/DL (74-106) Calcium Level 8.3 MG/DL (8.5-10.1) L Intake and Output 12/19/18 12/20/18 19:00 07:00 Intake Total 450 ml 250 ml Output Total 300 ml 450 ml Balance 150 ml -200 ml Intake Oral 450 ml 250 ml Output Urine Total 300 ml 450 ml # Voids 4 3 Objective General: No acute distress, awake and alert HEENT: NCAT, sclera anicteric, PERRL, EOMI. Neck: Supple, no significant jugular venous distention, Lungs: Good inspiratory effort, clear to auscultation bilaterally, no Wheeze or Rales. Heart: Regular rate and rhythm, normal S1/S2, no murmur, AICD @ [facility]. Abdomen: soft, nontender, nondistended. Normoactive bowel sounds. Extremities: No Cyanosis , clubbing or edema. Neuro: A&O x 3, Able to move all extremities Assessment/Plan Assessment/Plan 1. Chest pain, possible acute coronary syndrome. 2. Hypertension. 3. Dyslipidemia. 4. Congestive heart failure. 5. Coronary artery disease. 6. Sick sinus syndrome, status pacemaker. 7. Acute E. coli UTI. 8. 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 PLAN: Dr. Gee from Cardiology Electrophysiology. Await cardiac nuclear stress test-outpatient Dr. Luong, Pulmonary Critical Care. DVT prophylaxis: SCD Code status, Full Code. S/P transfusion 2 units PRBC on 11/19/18 waiting for SNF placement. Abx: Off Dale,Abdias MD Dec 20, 2018 23:32
[2018-12-21 04:00] VITALS: BP 131/63
[2018-12-21] MEDS: Morphine Sulfate 2mg/ml Inj(IV/IM USE ONLY) IM PRN ×4 (04:18→20:24)
[2018-12-21 07:18] LABS: HEMATOCRIT 25.8 % (42.0-52.0); HEMOGLOBIN 8.1 G/DL (14.2-18.0); MEAN CORPUSCULAR VOLUME 76 FL (80-99); PLATELET COUNT 88 K/UL (150-450); RED CELL DISTRIBUTION WIDTH 23.2 % (11.6-14.8); WHITE BLOOD COUNT 4.7 K/UL (4.8-10.8)
[2018-12-21 07:20] LABS: ANION GAP 6 mmol/L (5-15); BLOOD UREA NITROGEN 17 mg/dL (7-18); CALCIUM 8.7 MG/DL (8.5-10.1); CARBON DIOXIDE 32 MMOL/L (21-32); CHLORIDE 99 MMOL/L (98-107); CREATININE 0.9 MG/DL (0.55-1.30); POTASSIUM 4.2 MMOL/L (3.5-5.1); SODIUM 137 MMOL/L (136-145)
[2018-12-21 08:19] VITALS: BP 120/66
[2018-12-21 08:40] VITALS: BP 109/55
--- NOTE | 2018-12-21 11:21 | GI Progress Note ---
Assessment/Plan Problems: (1) History of CVA (cerebrovascular accident) ICD Codes: Z86.73 - Personal history of transient ischemic attack (TIA), and cerebral infarction without residual deficits SNOMED: 606838011 (2) Severe anemia ICD Codes: D64.9 - Anemia, unspecified SNOMED: 285686861 (3) Abdominal pain ICD Codes: R10.9 - Unspecified abdominal pain SNOMED: 64995278 (4) GERD (gastroesophageal reflux disease) ICD Codes: K21.9 - Gastro-esophageal reflux disease without esophagitis SNOMED: 804414334 Status: unchanged Status Narrative Discussed with Dr. Mcguire Assessment/Plan SUMMARY OF FINDINGS: 1. Gastritis. 2. A 6 cm hiatal hernia. Refusing a.m. lab draws OB stool uncollected RECOMMENDATIONS: Follow up biopsy results and treat accordingly. >> Mild chronic gastritis. Negative for H. pylori negative negative for dysplasia or malignancy. BM biopsy>> leukemia>> fu oncology monitor H&H, prn transfusions. bowel regime ppi, H2B qhs Zofran as needed fu labs Outpatient hep C treatment dc planning The patient was seen and examined at bedside and all new and available data was reviewed in the patients chart. I agree with the above findings, impression and plan. (Patient seen earlier today. Signature stamp does not reflect patient encounter time.). - Richie Mcguire MD Subjective Subjective Complaint of chest pain Nausea Objective Last 24 Hour Vital Signs Date Time Temp Pulse Resp B/P (MAP) Pulse Ox O2 Delivery O2 Flow Rate FiO2 12/21/18 10:31 Nasal Cannula 2.0 12/21/18 08:40 61 109/55 (73) 12/21/18 08:19 97.5 22 120/66 (84) 96 12/21/18 04:00 97.4 66 20 131/63 (85) 100 12/20/18 21:00 Nasal Cannula 2.0 12/20/18 20:05 64 123/55 12/20/18 20:00 97.5 64 18 123/55 (77) 97 12/20/18 16:00 98.3 62 20 116/54 (74) 98 12/20/18 14:30 98.3 12/20/18 12:00 96.1 64 19 109/54 (72) 98 Intake and Output 12/20/18 12/21/18 18:59 06:59 Intake Total 840 ml 200 ml Output Total 400 ml 550 ml Balance 440 ml -350 ml Intake Oral 840 ml 200 ml Output Urine Total 400 ml 550 ml Laboratory Tests Test 12/21/18 06:20 White Blood Count 4.7 K/UL (4.8-10.8) L Red Blood Count 3.40 M/UL (4.70-6.10) L Hemoglobin 8.1 G/DL (14.2-18.0) L Hematocrit 25.8 % (42.0-52.0) L Mean Corpuscular Volume 76 FL (80-99) L Mean Corpuscular Hemoglobin 23.7 PG (27.0-31.0) L Mean Corpuscular Hemoglobin Concent 31.2 G/DL (32.0-36.0) L Red Cell Distribution Width 23.2 % (11.6-14.8) H Platelet Count 88 K/UL (150-450) L Mean Platelet Volume 7.5 FL (6.5-10.1) Neutrophils (%) (Auto) % (45.0-75.0) Lymphocytes (%) (Auto) % (20.0-45.0) Monocytes (%) (Auto) % (1.0-10.0) Eosinophils (%) (Auto) % (0.0-3.0) Basophils (%) (Auto) % (0.0-2.0) Differential Total Cells Counted 100 Neutrophils % (Manual) 29 % (45-75) L Lymphocytes % (Manual) 33 % (20-45) Monocytes % (Manual) 25 % (1-10) H Eosinophils % (Manual) 0 % (0-3) Basophils % (Manual) 2 % (0-2) Metamyelocytes % 4 % (0-0) H Myelocytes % 5 % (0-0) H Band Neutrophils 2 % (0-8) Nucleated Red Blood Cells 1 /100 WBC Reactive Lymphocytes 1+ Platelet Estimate Decreased L Platelet Morphology Normal Hypochromasia 1+ Anisocytosis 2+ Microcytosis 2+ Acanthocytes 2+ Schistocytes 1+ Sodium Level 137 MMOL/L (136-145) Potassium Level 4.2 MMOL/L (3.5-5.1) Chloride Level 99 MMOL/L (98-107) Carbon Dioxide Level 32 MMOL/L (21-32) Anion Gap 6 mmol/L (5-15) Blood Urea Nitrogen 17 mg/dL (7-18) Creatinine 0.9 MG/DL (0.55-1.30) Estimat Glomerular Filtration Rate mL/min (>60) Glucose Level 102 MG/DL (74-106) Calcium Level 8.7 MG/DL (8.5-10.1) Height (Feet): 5 Height (Inches): 5.00 Weight (Pounds): 150 General Appearance: WD/WN, no apparent distress, alert, thin Cardiovascular: normal rate Respiratory/Chest: normal breath sounds, no respiratory distress Abdominal Exam: normal bowel sounds, non tender, soft Extremities: normal range of motion, non-tender Jason Gray NP Dec 21, 2018 11:21
--- NOTE | 2018-12-21 11:51 | General Progress Note ---
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 --> Hep panel and HIV negative, hep C++++ --> US abd to evaluate for cirrhosis and hsm reviewed --> Peripheral smear ordered to evaluate for blasts /schistocytes --> abx and other meds have been reviewed --> ok for ppx if plt >50k w/ either heparin or lovenox --> Transfuse if Plt < 20k and fever, or if Plt < 10k without fever --->Plt trend 70-->65-->44-->86-->122-->88 # Anemia of chronic disease, some minor hemolysis is noted --> Anemia workup has been reviewed,bertha test is negative, retic reviewed --> Hgb goal >7. Transfuse prn. --> Epogen or iron at this time is not particularly indicated --> Medications have been reviewed --> Hgb trend: 9-->8.7-->7.9-->7-->7.6-->7.4->8.1 # Reticulocytosis with elevated bilirubin that is indirect --> reviewed direct and indirect bilis again, trend could have liver disease --> liver US shows no significant cirrhosis --> evaluate as needed with gi team, recs apprecaited #. Chest pain, possible acute coronary syndrome. --> cards recs appreciated as well as pulm --> stress test prn # Hypertension. # Dyslipidemia. # Chf # Coronary artery disease. # Sick sinus syndrome, status pacemaker. # Acute E. coli UTI. # Hep C+++ needs op management The timing of this note does not necessarily reflect the time of the patient was seen. Greatly appreciate consultation! Subjective Allergies: Coded Allergies: No Known Allergies (Verified , 09/12/10) Subjective 11/27: no events to report, no f/c 11/28: seen by bedside, plt 65, plan for EGD and bone marrow biopsy tomorrow 11/29: BM biopsy today, no acute distress. 11/30: Had BM biopsy yesterday and now in reverse isolation. hgb 7.5, will transfuse as needed. 12/01: seen by bedside, plt remains low, awaiting bone marrow biopsy results. 12/02: No acute distress, no chest pain, no shortness of breath, wbc 2.7, hgb 7.3 , plt 50, will transfuse as needed. S/P BM biopsy 11/29/18, Results pending 12/04: bone marrow biopsy completed, and show myeloblasts, c/w mds/leukemia, requires close surveillance 12/05: hgb 6.9, Had blood transfusion today, plt up trending, no events 12/06: Seen by bedside, overall improved, still has complaint of chest pain, plt trending up 12/07: Given 1 unit prbc, continues to c/o chest pain, seen by cards 12/08: seen by bedside, complains of pain, plt 106, no events 12/09: awake, comfortable, plt trending down at 69, no events 12/11: awake, comfortable, on NC, plt remains low at 70. 12/12: awake, comfortable, plt 65, no events 12/13: seen by bedside, awake , comfortable, pending labs. 12/14: awake, comfortable, hgb 7.9, monitor, will transfuse as needed, plt trending down at 44, 12/15: seen by bedside, awake, comfortable, hgb 7, will transfuse as needed, plt 82. 12/16: awake comfortable, no events, hgb trending up 12/18: seen by bedside, alert, oriented, no acute distress 12/19: no events noted, no fevers or chills, cbc has been reviewed, had blasts on smear this wknd 12/20: seen by bedside, awake, comfortable, hgb 7.4, will transfuse as needed. 12/21: No overnight events reported, comfortable, hgb 8.1 Objective Last 24 Hour Vital Signs Date Time Temp Pulse Resp B/P (MAP) Pulse Ox O2 Delivery O2 Flow Rate FiO2 12/21/18 10:31 Nasal Cannula 2.0 12/21/18 08:40 61 109/55 (73) 12/21/18 08:19 97.5 22 120/66 (84) 96 12/21/18 04:00 97.4 66 20 131/63 (85) 100 12/20/18 21:00 Nasal Cannula 2.0 12/20/18 20:05 64 123/55 12/20/18 20:00 97.5 64 18 123/55 (77) 97 12/20/18 16:00 98.3 62 20 116/54 (74) 98 12/20/18 14:30 98.3 12/20/18 12:00 96.1 64 19 109/54 (72) 98 Intake and Output 12/20/18 12/21/18 18:59 06:59 Intake Total 840 ml 200 ml Output Total 400 ml 550 ml Balance 440 ml -350 ml Intake Oral 840 ml 200 ml Output Urine Total 400 ml 550 ml Laboratory Tests 12/21/18 06:20: White Blood Count 4.7L, Red Blood Count 3.40L, Hemoglobin 8.1L, Hematocrit 25.8L , Mean Corpuscular Volume 76L, Mean Corpuscular Hemoglobin 23.7L, Mean Corpuscular Hemoglobin Concent 31.2L, Red Cell Distribution Width 23.2H, Platelet Count 88L, Mean Platelet Volume 7.5, Neutrophils (%) (Auto) , Lymphocytes (%) (Auto) , Monocytes (%) (Auto) , Eosinophils (%) (Auto) , Basophils (%) (Auto) , Differential Total Cells Counted 100, Neutrophils % ( Manual) 29L, Lymphocytes % (Manual) 33, Monocytes % (Manual) 25H, Eosinophils % (Manual) 0, Basophils % (Manual) 2, Metamyelocytes % 4H, Myelocytes % 5H, Band Neutrophils 2, Nucleated Red Blood Cells 1, Reactive Lymphocytes 1+, Platelet Estimate DecreasedL, Platelet Morphology Normal, Hypochromasia 1+, Anisocytosis 2+, Microcytosis 2+, Acanthocytes 2+, Schistocytes 1+, Sodium Level 137, Potassium Level 4.2, Chloride Level 99, Carbon Dioxide Level 32, Anion Gap 6, Blood Urea Nitrogen 17, Creatinine 0.9, Estimat Glomerular Filtration Rate , Glucose Level 102, Calcium Level 8.7 Height (Feet): 5 Height (Inches): 5.00 Weight (Pounds): 150 Objective General: well appearing, nad, alert Head: normocephalic, atraumatic Eyes: b/l eye PERRL, bilateral eye EOMI ENT: hearing grossly normal, normal pharynx Neck: full range of motion, supple, no meningismus Respiratory: chest non-tender, lungs clear, normal breath sounds, NC++ Cardiovascular: regular rate, rhythm, no murmur Gastrointestinal: normal bowel sounds, non tender, no mass, no organomegaly, no bruit, non-distended Musculoskeletal: back normal, normal range of motion Psychiatric: mood/affect normal Skin: warm/dry Jose Alberto España MD Dec 21, 2018 11:51
[2018-12-21 12:14] VITALS: BP 140/66
[2018-12-21] MEDS: Carvedilol 12.5mg tab ORAL SCH ×2 (12:21→20:14)
--- NOTE | 2018-12-21 12:37 | Pulmonology Progress Note ---
Assessment/Plan Problems: (1) Myeloblastic leukemia (2) Severe thrombocytopenia (3) ACS (acute coronary syndrome) (4) Cardiomyopathy (5) HTN (hypertension) (6) Pacemaker (7) Hypothyroidism (8) CAD (coronary artery disease) Assessment/Plan doing better, still nauseous on fentNAYL PACH dc all oral analgesics and try Fentanyl Patch doing better early leukemia PLT stable, better today check electrolytes no malignancy in bone marrow all reviewed symptomatic treatment dc planning Subjective Constitutional: Reports: no symptoms HEENT: Repors: no symptoms Respiratory: Reports: no symptoms Allergies: Coded Allergies: No Known Allergies (Verified , 09/12/10) Objective Last 24 Hour Vital Signs Date Time Temp Pulse Resp B/P (MAP) Pulse Ox O2 Delivery O2 Flow Rate FiO2 12/21/18 12:21 67 140/66 12/21/18 12:14 97.7 67 19 140/66 (90) 100 12/21/18 10:31 Nasal Cannula 2.0 12/21/18 08:40 61 109/55 (73) 12/21/18 08:19 97.5 22 120/66 (84) 96 12/21/18 04:00 97.4 66 20 131/63 (85) 100 12/20/18 21:00 Nasal Cannula 2.0 12/20/18 20:05 64 123/55 12/20/18 20:00 97.5 64 18 123/55 (77) 97 12/20/18 16:00 98.3 62 20 116/54 (74) 98 12/20/18 14:30 98.3 Intake and Output 12/20/18 12/21/18 18:59 06:59 Intake Total 840 ml 200 ml Output Total 400 ml 550 ml Balance 440 ml -350 ml Intake Oral 840 ml 200 ml Output Urine Total 400 ml 550 ml Objective General Appearance: cachetic Lines, tubes and drains: peripheral HEENT: normocephalic, atraumatic Neck: non-tender, normal alignment Respiratory/Chest: chest wall non-tender, lungs clear Breasts: no masses Cardiovascular/Chest: normal peripheral pulses, normal rate Abdomen: normal bowel sounds, non tender Genitourinary/Rectal: normal genital exam Extremities: normal range of motion Skin Exam: normal pigmentation 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 Laboratory Tests 12/21/18 06:20: White Blood Count 4.7L, Red Blood Count 3.40L, Hemoglobin 8.1L, Hematocrit 25.8L , Mean Corpuscular Volume 76L, Mean Corpuscular Hemoglobin 23.7L, Mean Corpuscular Hemoglobin Concent 31.2L, Red Cell Distribution Width 23.2H, Platelet Count 88L, Mean Platelet Volume 7.5, Neutrophils (%) (Auto) , Lymphocytes (%) (Auto) , Monocytes (%) (Auto) , Eosinophils (%) (Auto) , Basophils (%) (Auto) , Differential Total Cells Counted 100, Neutrophils % ( Manual) 29L, Lymphocytes % (Manual) 33, Monocytes % (Manual) 25H, Eosinophils % (Manual) 0, Basophils % (Manual) 2, Metamyelocytes % 4H, Myelocytes % 5H, Band Neutrophils 2, Nucleated Red Blood Cells 1, Reactive Lymphocytes 1+, Platelet Estimate DecreasedL, Platelet Morphology Normal, Hypochromasia 1+, Anisocytosis 2+, Microcytosis 2+, Acanthocytes 2+, Schistocytes 1+, Sodium Level 137, Potassium Level 4.2, Chloride Level 99, Carbon Dioxide Level 32, Anion Gap 6, Blood Urea Nitrogen 17, Creatinine 0.9, Estimat Glomerular Filtration Rate , Glucose Level 102, Calcium Level 8.7 Current Medications Medications (Trade) Dose Ordered Sig/Scout Route PRN Reason Start Time Stop Time Status Last Admin Dose Admin Atorvastatin Calcium (Lipitor) 40 mg QHS ORAL 12/19/18 21:00 01/18/19 20:59 12/19/18 21:27 Bisacodyl (Dulcolax) 10 mg DAILYPRN PRN RECTAL Constipation 12/18/18 21:45 12/28/18 17:01 Carvedilol (Coreg) 12.5 mg EVERY 12 HOURS ORAL 12/19/18 09:00 01/18/19 08:59 12/21/18 12:21 Clonidine HCl (Catapres Tab) 0.1 mg Q2H PRN ORAL For High Blood Pressure 12/06/18 21:15 01/05/19 21:14 12/07/18 08:25 Docusate Sodium (Colace) 100 mg Q12H PRN ORAL Constipation 12/18/18 21:45 01/17/19 21:29 12/18/18 21:45 Escitalopram Oxalate (Lexapro) 15 mg DAILY ORAL 11/29/18 09:00 12/24/18 08:59 12/21/18 08:45 Famotidine (Pepcid) 20 mg QHS ORAL 11/30/18 21:00 12/30/18 20:59 12/20/18 20:06 Fentanyl (Duragesic) 1 patch Q72H TDERMAL 12/17/18 18:00 12/24/18 17:59 12/20/18 18:32 Furosemide (Lasix) 20 mg DAILY ORAL 12/19/18 17:45 01/18/19 17:44 12/21/18 08:45 Miscellaneous Medication (fentaNYL Destruction) 1 ea Q72H MISC 12/20/18 17:59 01/19/19 17:58 Morphine Sulfate (Morphine Sulfate) 2 mg Q4H PRN IM For Pain 12/15/18 22:30 12/22/18 22:29 12/21/18 12:23 Naloxone HCl (Narcan) 0.1 mg PRN IV Sedation scale 3 or 4 12/08/18 15:15 01/07/19 15:14 Ondansetron HCl (Zofran ODT) 4 mg Q4H PRN ORAL Nausea & Vomiting 12/07/18 10:00 01/06/19 09:59 12/16/18 15:20 Polyethylene Glycol (Miralax) 17 gm DAILYPRN PRN ORAL Constipation 12/18/18 21:45 12/28/18 17:03 Chepe Luong MD Dec 21, 2018 12:37
--- NOTE | 2018-12-21 15:58 | Cardiac Electrophysiology PN ---
Assessment/Plan Assessment/Plan 1. Atypical chest pain and hx of CABG. Likely due to severe anemia. Ruled out ME. Nuclear stress test cancelled for severe anemia. Reschedule after pancytopenia is resolved as out patient. On Lipitor and Coreg. Off Aspirin and Plavix for anemia and thrombocytopenia 2. Cardiomyopathy. EF now 55%. On Coreg 12.5 mg bid. 3. Status post [facility] atrial biventricular defibrillator. Interrogated and showed Nl Fx 4. Severe anemia, S/P PRBC. FU GI. 5. Pancytopenia with Platelet count of 17. Off Aspirin and PLavix S/P platelet transfusion. S/P BM biopsy 11/29/18. 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 No CP or SOB. Objective Last 24 Hour Vital Signs Date Time Temp Pulse Resp B/P (MAP) Pulse Ox O2 Delivery O2 Flow Rate FiO2 12/21/18 12:21 67 140/66 12/21/18 12:14 97.7 67 19 140/66 (90) 100 12/21/18 10:31 Nasal Cannula 2.0 12/21/18 08:40 61 109/55 (73) 12/21/18 08:19 97.5 22 120/66 (84) 96 12/21/18 04:00 97.4 66 20 131/63 (85) 100 12/20/18 21:00 Nasal Cannula 2.0 12/20/18 20:05 64 123/55 12/20/18 20:00 97.5 64 18 123/55 (77) 97 12/20/18 16:00 98.3 62 20 116/54 (74) 98 Intake and Output 12/20/18 12/21/18 19:00 07:00 Intake Total 840 ml 200 ml Output Total 400 ml 550 ml Balance 440 ml -350 ml Intake Oral 840 ml 200 ml Output Urine Total 400 ml 550 ml Laboratory Tests Test 12/21/18 06:20 White Blood Count 4.7 K/UL (4.8-10.8) L Red Blood Count 3.40 M/UL (4.70-6.10) L Hemoglobin 8.1 G/DL (14.2-18.0) L Hematocrit 25.8 % (42.0-52.0) L Mean Corpuscular Volume 76 FL (80-99) L Mean Corpuscular Hemoglobin 23.7 PG (27.0-31.0) L Mean Corpuscular Hemoglobin Concent 31.2 G/DL (32.0-36.0) L Red Cell Distribution Width 23.2 % (11.6-14.8) H Platelet Count 88 K/UL (150-450) L Mean Platelet Volume 7.5 FL (6.5-10.1) Neutrophils (%) (Auto) % (45.0-75.0) Lymphocytes (%) (Auto) % (20.0-45.0) Monocytes (%) (Auto) % (1.0-10.0) Eosinophils (%) (Auto) % (0.0-3.0) Basophils (%) (Auto) % (0.0-2.0) Differential Total Cells Counted 100 Neutrophils % (Manual) 29 % (45-75) L Lymphocytes % (Manual) 33 % (20-45) Monocytes % (Manual) 25 % (1-10) H Eosinophils % (Manual) 0 % (0-3) Basophils % (Manual) 2 % (0-2) Metamyelocytes % 4 % (0-0) H Myelocytes % 5 % (0-0) H Band Neutrophils 2 % (0-8) Nucleated Red Blood Cells 1 /100 WBC Reactive Lymphocytes 1+ Platelet Estimate Decreased L Platelet Morphology Normal Hypochromasia 1+ Anisocytosis 2+ Microcytosis 2+ Acanthocytes 2+ Schistocytes 1+ Sodium Level 137 MMOL/L (136-145) Potassium Level 4.2 MMOL/L (3.5-5.1) Chloride Level 99 MMOL/L (98-107) Carbon Dioxide Level 32 MMOL/L (21-32) Anion Gap 6 mmol/L (5-15) Blood Urea Nitrogen 17 mg/dL (7-18) Creatinine 0.9 MG/DL (0.55-1.30) Estimat Glomerular Filtration Rate mL/min (>60) Glucose Level 102 MG/DL (74-106) Calcium Level 8.7 MG/DL (8.5-10.1) Objective HEAD AND NECK: No JVD. LUNGS: Coarse rhonchi. CARDIOVASCULAR: Regular S1 and S2 with no gallop or murmur. Sternotomy is intact. ICD in left subclavian. ABDOMEN: Soft. EXTREMITIES: 1+ pitting edema. Satinder Gee MD Dec 21, 2018 15:58
[2018-12-21 16:15] VITALS: BP 122/57
--- NOTE | 2018-12-21 18:10 | Internal Med Progress Note ---
Subjective Physician Name Abdias Hunter Attending Physician Abdias Hunter MD Current Medications Medications (Trade) Dose Ordered Sig/Scout Route PRN Reason Start Time Stop Time Status Last Admin Dose Admin Atorvastatin Calcium (Lipitor) 40 mg QHS ORAL 12/19/18 21:00 01/18/19 20:59 12/19/18 21:27 Bisacodyl (Dulcolax) 10 mg DAILYPRN PRN RECTAL Constipation 12/18/18 21:45 12/28/18 17:01 Carvedilol (Coreg) 12.5 mg EVERY 12 HOURS ORAL 12/19/18 09:00 01/18/19 08:59 12/21/18 12:21 Clonidine HCl (Catapres Tab) 0.1 mg Q2H PRN ORAL For High Blood Pressure 12/06/18 21:15 01/05/19 21:14 12/07/18 08:25 Docusate Sodium (Colace) 100 mg Q12H PRN ORAL Constipation 12/18/18 21:45 01/17/19 21:29 12/18/18 21:45 Escitalopram Oxalate (Lexapro) 15 mg DAILY ORAL 11/29/18 09:00 12/24/18 08:59 12/21/18 08:45 Famotidine (Pepcid) 20 mg QHS ORAL 11/30/18 21:00 12/30/18 20:59 12/20/18 20:06 Fentanyl (Duragesic) 1 patch Q72H TDERMAL 12/17/18 18:00 12/24/18 17:59 12/20/18 18:32 Furosemide (Lasix) 20 mg DAILY ORAL 12/19/18 17:45 01/18/19 17:44 12/21/18 08:45 Miscellaneous Medication (fentaNYL Destruction) 1 ea Q72H MISC 12/20/18 17:59 01/19/19 17:58 Morphine Sulfate (Morphine Sulfate) 2 mg Q4H PRN IM For Pain 12/15/18 22:30 12/22/18 22:29 12/21/18 16:24 Naloxone HCl (Narcan) 0.1 mg PRN IV Sedation scale 3 or 4 12/08/18 15:15 01/07/19 15:14 Ondansetron HCl (Zofran ODT) 4 mg Q4H PRN ORAL Nausea & Vomiting 12/07/18 10:00 01/06/19 09:59 12/16/18 15:20 Polyethylene Glycol (Miralax) 17 gm DAILYPRN PRN ORAL Constipation 12/18/18 21:45 12/28/18 17:03 Allergies: Coded Allergies: No Known Allergies (Verified , 09/12/10) Subjective Alert, oriented, no acute distress, no chest pain. Objective Last Vital Signs Date Time Temp Pulse Resp B/P (MAP) Pulse Ox O2 Delivery O2 Flow Rate FiO2 12/21/18 16:15 97.5 66 19 122/57 (78) 97 12/21/18 10:31 Nasal Cannula 2.0 12/19/18 20:55 28 Laboratory Tests Test 12/21/18 06:20 White Blood Count 4.7 K/UL (4.8-10.8) L Red Blood Count 3.40 M/UL (4.70-6.10) L Hemoglobin 8.1 G/DL (14.2-18.0) L Hematocrit 25.8 % (42.0-52.0) L Mean Corpuscular Volume 76 FL (80-99) L Mean Corpuscular Hemoglobin 23.7 PG (27.0-31.0) L Mean Corpuscular Hemoglobin Concent 31.2 G/DL (32.0-36.0) L Red Cell Distribution Width 23.2 % (11.6-14.8) H Platelet Count 88 K/UL (150-450) L Mean Platelet Volume 7.5 FL (6.5-10.1) Neutrophils (%) (Auto) % (45.0-75.0) Lymphocytes (%) (Auto) % (20.0-45.0) Monocytes (%) (Auto) % (1.0-10.0) Eosinophils (%) (Auto) % (0.0-3.0) Basophils (%) (Auto) % (0.0-2.0) Differential Total Cells Counted 100 Neutrophils % (Manual) 29 % (45-75) L Lymphocytes % (Manual) 33 % (20-45) Monocytes % (Manual) 25 % (1-10) H Eosinophils % (Manual) 0 % (0-3) Basophils % (Manual) 2 % (0-2) Metamyelocytes % 4 % (0-0) H Myelocytes % 5 % (0-0) H Band Neutrophils 2 % (0-8) Nucleated Red Blood Cells 1 /100 WBC Reactive Lymphocytes 1+ Platelet Estimate Decreased L Platelet Morphology Normal Hypochromasia 1+ Anisocytosis 2+ Microcytosis 2+ Acanthocytes 2+ Schistocytes 1+ Sodium Level 137 MMOL/L (136-145) Potassium Level 4.2 MMOL/L (3.5-5.1) Chloride Level 99 MMOL/L (98-107) Carbon Dioxide Level 32 MMOL/L (21-32) Anion Gap 6 mmol/L (5-15) Blood Urea Nitrogen 17 mg/dL (7-18) Creatinine 0.9 MG/DL (0.55-1.30) Estimat Glomerular Filtration Rate mL/min (>60) Glucose Level 102 MG/DL (74-106) Calcium Level 8.7 MG/DL (8.5-10.1) Intake and Output 12/20/18 12/21/18 19:00 07:00 Intake Total 840 ml 200 ml Output Total 400 ml 550 ml Balance 440 ml -350 ml Intake Oral 840 ml 200 ml Output Urine Total 400 ml 550 ml Objective General: No acute distress, awake and alert HEENT: NCAT, sclera anicteric, PERRL, EOMI. Neck: Supple, no significant jugular venous distention, Lungs: Good inspiratory effort, clear to auscultation bilaterally, no Wheeze or Rales. Heart: Regular rate and rhythm, normal S1/S2, no murmur, AICD @ [facility]. Abdomen: soft, nontender, nondistended. Normoactive bowel sounds. Extremities: No Cyanosis , clubbing or edema. Neuro: A&O x 3, Able to move all extremities Assessment/Plan Assessment/Plan 1. Chest pain, possible acute coronary syndrome. 2. Hypertension. 3. Dyslipidemia. 4. Congestive heart failure. 5. Coronary artery disease. 6. Sick sinus syndrome, status pacemaker. 7. Acute E. coli UTI. 8. 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 PLAN: Dr. Gee from Cardiology Electrophysiology. Dr. Luong, Pulmonary Critical Care. DVT prophylaxis: SCD Code status, Full Code. S/P transfusion 2 units PRBC on 11/19/18 waiting for SNF placement. Abx: Off Abdias Hunter MD Dec 21, 2018 18:10
[2018-12-21 20:00] VITALS: BP 101/49
[2018-12-21] MEDS: Atorvastatin 20mg tab ORAL SCH (20:23)
[2018-12-22] VITALS: BP 118/60
[2018-12-22 04:00] VITALS: BP 102/60
[2018-12-22] MEDS: Morphine Sulfate 2mg/ml Inj(IV/IM USE ONLY) IM PRN ×2 (05:23→22:09)
[2018-12-22 08:00] VITALS: BP 116/57
[2018-12-22 08:16] LABS: ANION GAP 7 mmol/L (5-15); BLOOD UREA NITROGEN 21 mg/dL (7-18); CALCIUM 8.5 MG/DL (8.5-10.1); CARBON DIOXIDE 33 MMOL/L (21-32); CHLORIDE 97 MMOL/L (98-107); CREATININE 0.9 MG/DL (0.55-1.30); POTASSIUM 3.8 MMOL/L (3.5-5.1); SODIUM 137 MMOL/L (136-145)
[2018-12-22 08:19] LABS: HEMATOCRIT 23.1 % (42.0-52.0); HEMOGLOBIN 7.3 G/DL (14.2-18.0); MEAN CORPUSCULAR VOLUME 76 FL (80-99); PLATELET COUNT 157 K/UL (150-450); RED BLOOD COUNT 3.04 M/UL (4.70-6.10); RED CELL DISTRIBUTION WIDTH 23.2 % (11.6-14.8); WHITE BLOOD COUNT 4.3 K/UL (4.8-10.8)
[2018-12-22] MEDS: Carvedilol 12.5mg tab ORAL SCH ×2 (08:46→20:28)
--- NOTE | 2018-12-22 11:31 | GI Progress Note ---
Assessment/Plan Problems: (1) History of CVA (cerebrovascular accident) ICD Codes: Z86.73 - Personal history of transient ischemic attack (TIA), and cerebral infarction without residual deficits SNOMED: 473502526 (2) Severe anemia ICD Codes: D64.9 - Anemia, unspecified SNOMED: 061559980 (3) Abdominal pain ICD Codes: R10.9 - Unspecified abdominal pain SNOMED: 61276689 (4) GERD (gastroesophageal reflux disease) ICD Codes: K21.9 - Gastro-esophageal reflux disease without esophagitis SNOMED: 698075857 Status: stable Status Narrative Discussed with Dr. Mcguire Assessment/Plan SUMMARY OF FINDINGS: 1. Gastritis. 2. A 6 cm hiatal hernia. Refusing a.m. lab draws OB stool uncollected RECOMMENDATIONS: Follow up biopsy results and treat accordingly. >> Mild chronic gastritis. Negative for H. pylori negative negative for dysplasia or malignancy. BM biopsy>> leukemia>> fu oncology monitor H&H, prn transfusions. bowel regime ppi, H2B qhs Zofran as needed fu labs Outpatient hep C treatment dc planning The patient was seen and examined at bedside and all new and available data was reviewed in the patients chart. I agree with the above findings, impression and plan. (Patient seen earlier today. Signature stamp does not reflect patient encounter time.). - Richie Mcguire MD Subjective Gastrointestinal/Abdominal: Reports: no symptoms Subjective Complaint of chest pain Nausea Objective Last 24 Hour Vital Signs Date Time Temp Pulse Resp B/P (MAP) Pulse Ox O2 Delivery O2 Flow Rate FiO2 12/22/18 09:37 Nasal Cannula 2.0 12/22/18 08:46 68 117/57 12/22/18 08:00 98.2 68 18 116/57 (76) 97 12/22/18 04:00 98.0 70 17 102/60 (74) 94 12/22/18 00:00 98.2 64 16 118/60 (79) 100 12/21/18 21:00 Nasal Cannula 2.0 12/21/18 20:47 Nasal Cannula 2.0 28 12/21/18 20:47 99 Nasal Cannula 2.0 28 12/21/18 20:14 66 101/49 12/21/18 20:00 98.0 66 18 101/49 (66) 99 12/21/18 16:15 97.5 66 19 122/57 (78) 97 12/21/18 12:21 67 140/66 12/21/18 12:14 97.7 67 19 140/66 (90) 100 Intake and Output 12/21/18 12/22/18 19:00 07:00 Intake Total 720 ml 200 ml Output Total 800 ml Balance -80 ml 200 ml Intake Oral 720 ml 200 ml Output Urine Total 800 ml # Voids 1 3 Laboratory Tests Test 12/22/18 05:07 White Blood Count 4.3 K/UL (4.8-10.8) L Red Blood Count 3.04 M/UL (4.70-6.10) L Hemoglobin 7.3 G/DL (14.2-18.0) L Hematocrit 23.1 % (42.0-52.0) L Mean Corpuscular Volume 76 FL (80-99) L Mean Corpuscular Hemoglobin 24.1 PG (27.0-31.0) L Mean Corpuscular Hemoglobin Concent 31.8 G/DL (32.0-36.0) L Red Cell Distribution Width 23.2 % (11.6-14.8) H Platelet Count 157 K/UL (150-450) # Mean Platelet Volume 13.5 FL (6.5-10.1) H Neutrophils (%) (Auto) % (45.0-75.0) Lymphocytes (%) (Auto) % (20.0-45.0) Monocytes (%) (Auto) % (1.0-10.0) Eosinophils (%) (Auto) % (0.0-3.0) Basophils (%) (Auto) % (0.0-2.0) Differential Total Cells Counted 100 Neutrophils % (Manual) 21 % (45-75) L Lymphocytes % (Manual) 50 % (20-45) H Monocytes % (Manual) 14 % (1-10) H Eosinophils % (Manual) 6 % (0-3) H Basophils % (Manual) 2 % (0-2) Band Neutrophils 7 % (0-8) Nucleated Red Blood Cells 1 /100 WBC Reactive Lymphocytes Occasional Platelet Estimate Adequate Platelet Morphology Normal Hypochromasia 1+ Anisocytosis 2+ Microcytosis 1+ Acanthocytes 2+ Schistocytes 1+ Sodium Level 137 MMOL/L (136-145) Potassium Level 3.8 MMOL/L (3.5-5.1) Chloride Level 97 MMOL/L (98-107) L Carbon Dioxide Level 33 MMOL/L (21-32) H Anion Gap 7 mmol/L (5-15) Blood Urea Nitrogen 21 mg/dL (7-18) H Creatinine 0.9 MG/DL (0.55-1.30) Estimat Glomerular Filtration Rate mL/min (>60) Glucose Level 96 MG/DL (74-106) Calcium Level 8.5 MG/DL (8.5-10.1) Height (Feet): 5 Height (Inches): 5.00 Weight (Pounds): 148 General Appearance: WD/WN, no apparent distress, alert Cardiovascular: normal rate Respiratory/Chest: normal breath sounds, no respiratory distress Abdominal Exam: normal bowel sounds, non tender, soft Extremities: normal range of motion, non-tender Jason Gray NP Dec 22, 2018 11:31
--- NOTE | 2018-12-22 12:36 | Pulmonology Progress Note ---
Assessment/Plan Problems: (1) Myeloblastic leukemia (2) Severe thrombocytopenia (3) ACS (acute coronary syndrome) (4) Cardiomyopathy (5) HTN (hypertension) (6) Pacemaker (7) Hypothyroidism (8) CAD (coronary artery disease) Assessment/Plan doing better, still nauseous on fentNAYL PACH dc all oral analgesics and try Fentanyl Patch doing better early leukemia check electrolytes no malignancy in bone marrow all reviewed symptomatic treatment dc planning Subjective ROS Limited/Unobtainable: No Constitutional: Reports: no symptoms HEENT: Repors: no symptoms Allergies: Coded Allergies: No Known Allergies (Verified , 09/12/10) Objective Last 24 Hour Vital Signs Date Time Temp Pulse Resp B/P (MAP) Pulse Ox O2 Delivery O2 Flow Rate FiO2 12/22/18 09:37 Nasal Cannula 2.0 12/22/18 08:46 68 117/57 12/22/18 08:00 98.2 68 18 116/57 (76) 97 12/22/18 04:00 98.0 70 17 102/60 (74) 94 12/22/18 00:00 98.2 64 16 118/60 (79) 100 12/21/18 21:00 Nasal Cannula 2.0 12/21/18 20:47 Nasal Cannula 2.0 28 12/21/18 20:47 99 Nasal Cannula 2.0 28 12/21/18 20:14 66 101/49 12/21/18 20:00 98.0 66 18 101/49 (66) 99 12/21/18 16:15 97.5 66 19 122/57 (78) 97 Intake and Output 12/21/18 12/22/18 18:59 06:59 Intake Total 720 ml 200 ml Output Total 800 ml Balance -80 ml 200 ml Intake Oral 720 ml 200 ml Output Urine Total 800 ml # Voids 1 3 Objective General Appearance: cachetic Lines, tubes and drains: peripheral HEENT: normocephalic, atraumatic Neck: non-tender, normal alignment Respiratory/Chest: chest wall non-tender, lungs clear Breasts: no masses Cardiovascular/Chest: normal peripheral pulses, normal rate Abdomen: normal bowel sounds, non tender Genitourinary/Rectal: normal genital exam Extremities: normal range of motion Skin Exam: normal pigmentation Neurologic: powered bridge specialist II-XII grossly normal Laboratory Tests 12/22/18 05:07: White Blood Count 4.3L, Red Blood Count 3.04L, Hemoglobin 7.3L, Hematocrit 23.1L , Mean Corpuscular Volume 76L, Mean Corpuscular Hemoglobin 24.1L, Mean Corpuscular Hemoglobin Concent 31.8L, Red Cell Distribution Width 23.2H, Platelet Count 157#, Mean Platelet Volume 13.5H, Neutrophils (%) (Auto) , Lymphocytes (%) (Auto) , Monocytes (%) (Auto) , Eosinophils (%) (Auto) , Basophils (%) (Auto) , Differential Total Cells Counted 100, Neutrophils % ( Manual) 21L, Lymphocytes % (Manual) 50H, Monocytes % (Manual) 14H, Eosinophils % (Manual) 6H, Basophils % (Manual) 2, Band Neutrophils 7, Nucleated Red Blood Cells 1, Reactive Lymphocytes Occasional, Platelet Estimate Adequate, Platelet Morphology Normal, Hypochromasia 1+, Anisocytosis 2+, Microcytosis 1+, Acanthocytes 2+, Schistocytes 1+, Sodium Level 137, Potassium Level 3.8, Chloride Level 97L, Carbon Dioxide Level 33H, Anion Gap 7, Blood Urea Nitrogen 21H, Creatinine 0.9, Estimat Glomerular Filtration Rate , Glucose Level 96, Calcium Level 8.5 Current Medications Medications (Trade) Dose Ordered Sig/Scout Route PRN Reason Start Time Stop Time Status Last Admin Dose Admin Atorvastatin Calcium (Lipitor) 40 mg QHS ORAL 12/19/18 21:00 01/18/19 20:59 12/21/18 20:23 Bisacodyl (Dulcolax) 10 mg DAILYPRN PRN RECTAL Constipation 12/18/18 21:45 12/28/18 17:01 Carvedilol (Coreg) 12.5 mg EVERY 12 HOURS ORAL 12/19/18 09:00 01/18/19 08:59 12/22/18 08:46 Clonidine HCl (Catapres Tab) 0.1 mg Q2H PRN ORAL For High Blood Pressure 12/06/18 21:15 01/05/19 21:14 12/07/18 08:25 Docusate Sodium (Colace) 100 mg Q12H PRN ORAL Constipation 12/18/18 21:45 01/17/19 21:29 12/18/18 21:45 Escitalopram Oxalate (Lexapro) 15 mg DAILY ORAL 11/29/18 09:00 12/24/18 08:59 12/22/18 08:47 Famotidine (Pepcid) 20 mg QHS ORAL 11/30/18 21:00 12/30/18 20:59 12/21/18 20:23 Fentanyl (Duragesic) 1 patch Q72H TDERMAL 12/17/18 18:00 12/24/18 17:59 12/20/18 18:32 Furosemide (Lasix) 20 mg DAILY ORAL 12/19/18 17:45 01/18/19 17:44 12/22/18 08:47 Miscellaneous Medication (fentaNYL Destruction) 1 ea Q72H MISC 12/20/18 17:59 01/19/19 17:58 Morphine Sulfate (Morphine Sulfate) 2 mg Q4H PRN IM For Pain 12/15/18 22:30 12/22/18 22:29 12/22/18 05:23 Naloxone HCl (Narcan) 0.1 mg PRN IV Sedation scale 3 or 4 12/08/18 15:15 01/07/19 15:14 Ondansetron HCl (Zofran ODT) 4 mg Q4H PRN ORAL Nausea & Vomiting 12/07/18 10:00 01/06/19 09:59 12/16/18 15:20 Polyethylene Glycol (Miralax) 17 gm DAILYPRN PRN ORAL Constipation 12/18/18 21:45 12/28/18 17:03 Chepe Luong MD Dec 22, 2018 12:36
--- NOTE | 2018-12-22 15:27 | General Progress Note ---
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 --> Hep panel and HIV negative, hep C++++ --> US abd to evaluate for cirrhosis and hsm reviewed --> Peripheral smear ordered to evaluate for blasts /schistocytes --> abx and other meds have been reviewed --> ok for ppx if plt >50k w/ either heparin or lovenox --> Transfuse if Plt < 20k and fever, or if Plt < 10k without fever --->Plt trend 70-->65-->44-->86-->122-->88 # Anemia of chronic disease, some minor hemolysis is noted --> Anemia workup has been reviewed,bertha test is negative, retic reviewed --> Hgb goal >7. Transfuse prn. --> Epogen or iron at this time is not particularly indicated --> Medications have been reviewed --> Hgb trend: 9-->8.7-->7.9-->7-->7.6-->7.4->8.1 # Reticulocytosis with elevated bilirubin that is indirect --> reviewed direct and indirect bilis again, trend could have liver disease --> liver US shows no significant cirrhosis --> evaluate as needed with gi team, recs apprecaited #. Chest pain, possible acute coronary syndrome. --> cards recs appreciated as well as pulm --> stress test prn # Hypertension. # Dyslipidemia. # Chf # Coronary artery disease. # Sick sinus syndrome, status pacemaker. # Acute E. coli UTI s/p abx # Hep C+++ needs op management The timing of this note does not necessarily reflect the time of the patient was seen. Greatly appreciate consultation! Subjective Constitutional: Denies: no symptoms, chills, diaphoresis, fever, malaise, weakness, other Respiratory: Denies: no symptoms, cough, orthopnea, shortness of breath, SOB with excertion, SOB at rest, sputum, stridor, wheezing, other Gastrointestinal/Abdominal: Denies: no symptoms, abdomen distended, abdominal pain, black stools, tarry stools, blood in stool, constipated, diarrhea, difficulty swallowing, nausea, poor appetite, poor fluid intake, rectal bleeding , vomiting, other Genitourinary: Denies: no symptoms, burning, discharge, frequency, flank pain, hematuria, incontinence, pain, urgency, other Neurologic/Psychiatric: Denies: no symptoms, anxiety, depressed, emotional problems, headache, numbness, paresthesia, pre-existing deficit, seizure, tingling, tremors, weakness, other Endocrine: Denies: no symptoms, excessive sweating, flushing, intolerance to cold, intolerance to heat, increased hunger, increased thirst, increased urine, unexplained weight gain, unexplained weight loss, other Hematologic/Lymphatic: Denies: no symptoms, anemia, easy bleeding, easy bruising, other Allergies: Coded Allergies: No Known Allergies (Verified , 09/12/10) Subjective 11/27: no events to report, no f/c 11/28: seen by bedside, plt 65, plan for EGD and bone marrow biopsy tomorrow 11/29: BM biopsy today, no acute distress. 11/30: Had BM biopsy yesterday and now in reverse isolation. hgb 7.5, will transfuse as needed. 12/01: seen by bedside, plt remains low, awaiting bone marrow biopsy results. 12/02: No acute distress, no chest pain, no shortness of breath, wbc 2.7, hgb 7.3 , plt 50, will transfuse as needed. S/P BM biopsy 11/29/18, Results pending 12/04: bone marrow biopsy completed, and show myeloblasts, c/w mds/leukemia, requires close surveillance 12/05: hgb 6.9, Had blood transfusion today, plt up trending, no events 12/06: Seen by bedside, overall improved, still has complaint of chest pain, plt trending up 12/07: Given 1 unit prbc, continues to c/o chest pain, seen by cards 12/08: seen by bedside, complains of pain, plt 106, no events 12/09: awake, comfortable, plt trending down at 69, no events 12/11: awake, comfortable, on NC, plt remains low at 70. 12/12: awake, comfortable, plt 65, no events 12/13: seen by bedside, awake , comfortable, pending labs. 12/14: awake, comfortable, hgb 7.9, monitor, will transfuse as needed, plt trending down at 44, 12/15: seen by bedside, awake, comfortable, hgb 7, will transfuse as needed, plt 82. 12/16: awake comfortable, no events, hgb trending up 12/18: seen by bedside, alert, oriented, no acute distress 12/19: no events noted, no fevers or chills, cbc has been reviewed, had blasts on smear this wknd 12/20: seen by bedside, awake, comfortable, hgb 7.4, will transfuse as needed. 12/21: No overnight events reported, comfortable, hgb 8.1 12/22: no events to report, remains nausous, the platelet count has improved on its own Objective Last 24 Hour Vital Signs Date Time Temp Pulse Resp B/P (MAP) Pulse Ox O2 Delivery O2 Flow Rate FiO2 12/22/18 12:00 98.3 12/22/18 09:37 Nasal Cannula 2.0 12/22/18 08:46 68 117/57 12/22/18 08:00 98.2 68 18 116/57 (76) 97 12/22/18 04:00 98.0 70 17 102/60 (74) 94 12/22/18 00:00 98.2 64 16 118/60 (79) 100 12/21/18 21:00 Nasal Cannula 2.0 12/21/18 20:47 Nasal Cannula 2.0 28 12/21/18 20:47 99 Nasal Cannula 2.0 28 12/21/18 20:14 66 101/49 12/21/18 20:00 98.0 66 18 101/49 (66) 99 12/21/18 16:15 97.5 66 19 122/57 (78) 97 Intake and Output 12/21/18 12/22/18 18:59 06:59 Intake Total 720 ml 200 ml Output Total 800 ml Balance -80 ml 200 ml Intake Oral 720 ml 200 ml Output Urine Total 800 ml # Voids 1 3 Laboratory Tests 12/22/18 05:07: White Blood Count 4.3L, Red Blood Count 3.04L, Hemoglobin 7.3L, Hematocrit 23.1L , Mean Corpuscular Volume 76L, Mean Corpuscular Hemoglobin 24.1L, Mean Corpuscular Hemoglobin Concent 31.8L, Red Cell Distribution Width 23.2H, Platelet Count 157#, Mean Platelet Volume 13.5H, Neutrophils (%) (Auto) , Lymphocytes (%) (Auto) , Monocytes (%) (Auto) , Eosinophils (%) (Auto) , Basophils (%) (Auto) , Differential Total Cells Counted 100, Neutrophils % ( Manual) 21L, Lymphocytes % (Manual) 50H, Monocytes % (Manual) 14H, Eosinophils % (Manual) 6H, Basophils % (Manual) 2, Band Neutrophils 7, Nucleated Red Blood Cells 1, Reactive Lymphocytes Occasional, Platelet Estimate Adequate, Platelet Morphology Normal, Hypochromasia 1+, Anisocytosis 2+, Microcytosis 1+, Acanthocytes 2+, Schistocytes 1+, Sodium Level 137, Potassium Level 3.8, Chloride Level 97L, Carbon Dioxide Level 33H, Anion Gap 7, Blood Urea Nitrogen 21H, Creatinine 0.9, Estimat Glomerular Filtration Rate , Glucose Level 96, Calcium Level 8.5 Height (Feet): 5 Height (Inches): 5.00 Weight (Pounds): 148 Objective General: well appearing, nad, alert Head: normocephalic, atraumatic Eyes: b/l eye PERRL, bilateral eye EOMI ENT: hearing grossly normal, normal pharynx Neck: full range of motion, supple, no meningismus Respiratory: chest non-tender, lungs clear, normal breath sounds, NC++ Cardiovascular: regular rate, rhythm, no murmur Gastrointestinal: normal bowel sounds, non tender, no mass, no organomegaly, no bruit, non-distended Musculoskeletal: back normal, normal range of motion Psychiatric: mood/affect normal Skin: warm/dry Jose Alberto España MD Dec 22, 2018 15:27
[2018-12-22 16:00] VITALS: BP 110/60
--- NOTE | 2018-12-22 17:14 | Cardiac Electrophysiology PN ---
Assessment/Plan Assessment/Plan 1. Atypical chest pain and hx of CABG. Likely due to severe anemia. Ruled out [place]. Nuclear stress test cancelled for severe anemia. Hold off on stress test in view of leukemia On Lipitor and Coreg. Off Aspirin and Plavix for anemia and thrombocytopenia 2. Cardiomyopathy. EF now 55%. On Coreg 12.5 mg bid. 3. Status post [facility] atrial biventricular defibrillator. Interrogated and showed Nl Fx 4. Severe anemia, S/P PRBC. FU GI. 5. Pancytopenia with Platelet count of 17. Off Aspirin and PLavix S/P platelet transfusion. S/P BM biopsy 11/29/18. 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 No events Objective Last 24 Hour Vital Signs Date Time Temp Pulse Resp B/P (MAP) Pulse Ox O2 Delivery O2 Flow Rate FiO2 12/22/18 12:00 98.3 12/22/18 09:37 Nasal Cannula 2.0 12/22/18 08:46 68 117/57 12/22/18 08:00 98.2 68 18 116/57 (76) 97 12/22/18 04:00 98.0 70 17 102/60 (74) 94 12/22/18 00:00 98.2 64 16 118/60 (79) 100 12/21/18 21:00 Nasal Cannula 2.0 12/21/18 20:47 Nasal Cannula 2.0 28 12/21/18 20:47 99 Nasal Cannula 2.0 28 12/21/18 20:14 66 101/49 12/21/18 20:00 98.0 66 18 101/49 (66) 99 Intake and Output 12/21/18 12/22/18 18:59 06:59 Intake Total 720 ml 200 ml Output Total 800 ml Balance -80 ml 200 ml Intake Oral 720 ml 200 ml Output Urine Total 800 ml # Voids 1 3 Laboratory Tests Test 12/22/18 05:07 White Blood Count 4.3 K/UL (4.8-10.8) L Red Blood Count 3.04 M/UL (4.70-6.10) L Hemoglobin 7.3 G/DL (14.2-18.0) L Hematocrit 23.1 % (42.0-52.0) L Mean Corpuscular Volume 76 FL (80-99) L Mean Corpuscular Hemoglobin 24.1 PG (27.0-31.0) L Mean Corpuscular Hemoglobin Concent 31.8 G/DL (32.0-36.0) L Red Cell Distribution Width 23.2 % (11.6-14.8) H Platelet Count 157 K/UL (150-450) # Mean Platelet Volume 13.5 FL (6.5-10.1) H Neutrophils (%) (Auto) % (45.0-75.0) Lymphocytes (%) (Auto) % (20.0-45.0) Monocytes (%) (Auto) % (1.0-10.0) Eosinophils (%) (Auto) % (0.0-3.0) Basophils (%) (Auto) % (0.0-2.0) Differential Total Cells Counted 100 Neutrophils % (Manual) 21 % (45-75) L Lymphocytes % (Manual) 50 % (20-45) H Monocytes % (Manual) 14 % (1-10) H Eosinophils % (Manual) 6 % (0-3) H Basophils % (Manual) 2 % (0-2) Band Neutrophils 7 % (0-8) Nucleated Red Blood Cells 1 /100 WBC Reactive Lymphocytes Occasional Platelet Estimate Adequate Platelet Morphology Normal Hypochromasia 1+ Anisocytosis 2+ Microcytosis 1+ Acanthocytes 2+ Schistocytes 1+ Sodium Level 137 MMOL/L (136-145) Potassium Level 3.8 MMOL/L (3.5-5.1) Chloride Level 97 MMOL/L (98-107) L Carbon Dioxide Level 33 MMOL/L (21-32) H Anion Gap 7 mmol/L (5-15) Blood Urea Nitrogen 21 mg/dL (7-18) H Creatinine 0.9 MG/DL (0.55-1.30) Estimat Glomerular Filtration Rate mL/min (>60) Glucose Level 96 MG/DL (74-106) Calcium Level 8.5 MG/DL (8.5-10.1) Objective HEAD AND NECK: No JVD. LUNGS: Coarse rhonchi. CARDIOVASCULAR: Regular S1 and S2 with no gallop or murmur. Sternotomy is intact. ICD in left subclavian. ABDOMEN: Soft. EXTREMITIES: 1+ pitting edema. Satinder Gee MD Dec 22, 2018 17:14
--- NOTE | 2018-12-22 18:35 | Internal Med Progress Note ---
Subjective Date of Service: Dec 22, 2018 Physician Name Nikhil West Attending Physician Abdias Hunter MD Current Medications Medications (Trade) Dose Ordered Sig/Scout Route PRN Reason Start Time Stop Time Status Last Admin Dose Admin Atorvastatin Calcium (Lipitor) 40 mg QHS ORAL 12/19/18 21:00 01/18/19 20:59 12/21/18 20:23 Bisacodyl (Dulcolax) 10 mg DAILYPRN PRN RECTAL Constipation 12/18/18 21:45 12/28/18 17:01 Carvedilol (Coreg) 12.5 mg EVERY 12 HOURS ORAL 12/19/18 09:00 01/18/19 08:59 12/22/18 08:46 Clonidine HCl (Catapres Tab) 0.1 mg Q2H PRN ORAL For High Blood Pressure 12/06/18 21:15 01/05/19 21:14 12/07/18 08:25 Docusate Sodium (Colace) 100 mg Q12H PRN ORAL Constipation 12/18/18 21:45 01/17/19 21:29 12/18/18 21:45 Escitalopram Oxalate (Lexapro) 15 mg DAILY ORAL 11/29/18 09:00 12/24/18 08:59 12/22/18 08:47 Famotidine (Pepcid) 20 mg QHS ORAL 11/30/18 21:00 12/30/18 20:59 12/21/18 20:23 Fentanyl (Duragesic) 1 patch Q72H TDERMAL 12/17/18 18:00 12/24/18 17:59 12/20/18 18:32 Furosemide (Lasix) 20 mg DAILY ORAL 12/19/18 17:45 01/18/19 17:44 12/22/18 08:47 Miscellaneous Medication (fentaNYL Destruction) 1 ea Q72H MISC 12/20/18 17:59 01/19/19 17:58 Morphine Sulfate (Morphine Sulfate) 2 mg Q4H PRN IM For Pain 12/15/18 22:30 12/22/18 22:29 12/22/18 05:23 Naloxone HCl (Narcan) 0.1 mg PRN IV Sedation scale 3 or 4 12/08/18 15:15 01/07/19 15:14 Ondansetron HCl (Zofran ODT) 4 mg Q4H PRN ORAL Nausea & Vomiting 12/07/18 10:00 01/06/19 09:59 12/16/18 15:20 Polyethylene Glycol (Miralax) 17 gm DAILYPRN PRN ORAL Constipation 12/18/18 21:45 12/28/18 17:03 Allergies: Coded Allergies: No Known Allergies (Verified , 09/12/10) ROS Limited/Unobtainable: Yes Subjective 78 YO M admitted with chest pain. Now pancytopenia and UTI. Cover for Int Med- Dr Hunter. Objective Last Vital Signs Date Time Temp Pulse Resp B/P (MAP) Pulse Ox O2 Delivery O2 Flow Rate FiO2 12/22/18 16:00 97.5 71 17 110/60 (77) 96 12/22/18 09:37 Nasal Cannula 2.0 12/21/18 20:47 28 Laboratory Tests Test 12/22/18 05:07 White Blood Count 4.3 K/UL (4.8-10.8) L Red Blood Count 3.04 M/UL (4.70-6.10) L Hemoglobin 7.3 G/DL (14.2-18.0) L Hematocrit 23.1 % (42.0-52.0) L Mean Corpuscular Volume 76 FL (80-99) L Mean Corpuscular Hemoglobin 24.1 PG (27.0-31.0) L Mean Corpuscular Hemoglobin Concent 31.8 G/DL (32.0-36.0) L Red Cell Distribution Width 23.2 % (11.6-14.8) H Platelet Count 157 K/UL (150-450) # Mean Platelet Volume 13.5 FL (6.5-10.1) H Neutrophils (%) (Auto) % (45.0-75.0) Lymphocytes (%) (Auto) % (20.0-45.0) Monocytes (%) (Auto) % (1.0-10.0) Eosinophils (%) (Auto) % (0.0-3.0) Basophils (%) (Auto) % (0.0-2.0) Differential Total Cells Counted 100 Neutrophils % (Manual) 21 % (45-75) L Lymphocytes % (Manual) 50 % (20-45) H Monocytes % (Manual) 14 % (1-10) H Eosinophils % (Manual) 6 % (0-3) H Basophils % (Manual) 2 % (0-2) Band Neutrophils 7 % (0-8) Nucleated Red Blood Cells 1 /100 WBC Reactive Lymphocytes Occasional Platelet Estimate Adequate Platelet Morphology Normal Hypochromasia 1+ Anisocytosis 2+ Microcytosis 1+ Acanthocytes 2+ Schistocytes 1+ Sodium Level 137 MMOL/L (136-145) Potassium Level 3.8 MMOL/L (3.5-5.1) Chloride Level 97 MMOL/L (98-107) L Carbon Dioxide Level 33 MMOL/L (21-32) H Anion Gap 7 mmol/L (5-15) Blood Urea Nitrogen 21 mg/dL (7-18) H Creatinine 0.9 MG/DL (0.55-1.30) Estimat Glomerular Filtration Rate mL/min (>60) Glucose Level 96 MG/DL (74-106) Calcium Level 8.5 MG/DL (8.5-10.1) Intake and Output 12/21/18 12/22/18 19:00 07:00 Intake Total 720 ml 200 ml Output Total 800 ml Balance -80 ml 200 ml Intake Oral 720 ml 200 ml Output Urine Total 800 ml # Voids 1 3 Objective PHYSICAL EXAMINATION: GENERAL: The patient awake, responsive, no acute distress. HEAD AND NECK: Pupils are equal and reactive to light. Extraocular movements are intact. Neck was supple. No JVD LUNGS: Good air entry. No wheeze or rales. HEART: S1, S2. Distant heart sounds. No murmur or gallops. Pacemaker in left-sided chest wall. ABDOMEN: Soft, nondistended, nontender. EXTREMITIES: No cyanosis, clubbing, edema. Varicose veins, bilateral lower extremities. NEUROLOGIC: Cranial nerves II through XII grossly intact. Motor is 5/5 in all extremities. Gait is intact. RECTAL: Refused and deferred. GENITOURINARY: Refused and deferred. PSYCHIATRIC: Mood and affect is depressed. Assessment/Plan Assessment/Plan ASSESSMENT: 1. Chest pain, possible acute coronary syndrome. 2. Hypertension. 3. Dyslipidemia. 4. Congestive heart failure. 5. Coronary artery disease. 6. Sick sinus syndrome, status pacemaker. 7. UTI. 8. Pancytopenia; S/P transfusion 4 units PRBC total-Severe anemia, Thrombocytopenia and leukopenia-?leukemia? see onc note. PLAN: Admit the patient to telemetry. Discussed case with Dr. Gee from Cardiology Electrophysiology. Await cardiac nuclear stress test-outpatient Dr. Luong, Pulmonary Critical Care. Urine cult=E. Coli. S/P Rocephin. DVT prophylaxis, heparin subcutaneous. Code status, Full Code. The patient is expected to be in the hospital greater than 2 days Discharge paln: [facility] S/P transfusion 2 units PRBC on 11/19/18 See Hematology consult-?acute myelocytic leukemia? Discharge to [facility] Nephrology consult Nikhil West MD Dec 22, 2018 18:35
[2018-12-22 20:11] VITALS: BP 111/54
[2018-12-22] MEDS: Atorvastatin 20mg tab ORAL SCH (20:27)
[2018-12-23 04:00] VITALS: BP 141/73
[2018-12-23] MEDS: Morphine Sulfate 2mg/ml Inj(IV/IM USE ONLY) IM PRN ×4 (06:45→20:25)
[2018-12-23 07:27] LABS: ANION GAP 2 mmol/L (5-15); BLOOD UREA NITROGEN 19 mg/dL (7-18); CALCIUM 8.8 MG/DL (8.5-10.1); CARBON DIOXIDE 35 MMOL/L (21-32); CHLORIDE 99 MMOL/L (98-107); CREATININE 0.8 MG/DL (0.55-1.30); POTASSIUM 3.9 MMOL/L (3.5-5.1); SODIUM 136 MMOL/L (136-145)
[2018-12-23 07:42] LABS: HEMATOCRIT 24.2 % (42.0-52.0); HEMOGLOBIN 7.7 G/DL (14.2-18.0); MEAN CORPUSCULAR VOLUME 76 FL (80-99); PLATELET COUNT 100 K/UL (150-450); RED BLOOD COUNT 3.17 M/UL (4.70-6.10); RED CELL DISTRIBUTION WIDTH 24.4 % (11.6-14.8); WHITE BLOOD COUNT 5.4 K/UL (4.8-10.8)
[2018-12-23 08:00] VITALS: BP 108/66
[2018-12-23] MEDS: Carvedilol 12.5mg tab ORAL SCH ×2 (08:24→20:31)
[2018-12-23 12:00] VITALS: BP 104/56
--- NOTE | 2018-12-23 12:01 | General Progress Note ---
Assessment/Plan Problem List: (1) History of CVA (cerebrovascular accident) ICD Codes: Z86.73 - Personal history of transient ischemic attack (TIA), and cerebral infarction without residual deficits SNOMED: 075279458 (2) Cardiomyopathy ICD Codes: I42.9 - Cardiomyopathy, unspecified SNOMED: 60995306 (3) Hypothyroidism ICD Codes: E03.9 - Hypothyroidism, unspecified SNOMED: 89916966 (4) HTN (hypertension) ICD Codes: I10 - Essential (primary) hypertension SNOMED: 50374312 (5) Severe thrombocytopenia ICD Codes: D69.6 - Thrombocytopenia, unspecified SNOMED: 693134184 (6) Anxiety disorder ICD Codes: F41.9 - Anxiety disorder, unspecified SNOMED: 634812629 (7) Severe anemia ICD Codes: D64.9 - Anemia, unspecified SNOMED: 682474663 (8) GERD (gastroesophageal reflux disease) ICD Codes: K21.9 - Gastro-esophageal reflux disease without esophagitis SNOMED: 282944049 (9) Pacemaker ICD Codes: Z95.0 - Presence of cardiac pacemaker SNOMED: 62425108, 790867347, 157511946 Assessment/Plan SUMMARY OF FINDINGS: 1. Gastritis. 2. A 6 cm hiatal hernia. RECOMMENDATIONS: Follow up biopsy results and treat accordingly. >> Mild chronic gastritis. Negative for H. pylori negative negative for dysplasia or malignancy. BM biopsy>> leukemia>> fu oncology monitor H&H, prn transfusions. bowel regime ppi, H2B qhs Zofran as needed fu labs Outpatient hep C treatment dc planning Subjective ROS Limited/Unobtainable: Yes Allergies: Coded Allergies: No Known Allergies (Verified , 09/12/10) Objective Last 24 Hour Vital Signs Date Time Temp Pulse Resp B/P (MAP) Pulse Ox O2 Delivery O2 Flow Rate FiO2 12/23/18 09:00 Room Air 12/23/18 08:24 69 107/50 12/23/18 08:00 98.3 97 20 108/66 (80) 96 12/23/18 07:21 98.1 12/23/18 04:00 98.1 78 18 141/73 (95) 95 12/22/18 21:10 Room Air 12/22/18 20:31 97 Nasal Cannula 2.0 28 12/22/18 20:31 Nasal Cannula 2.0 28 12/22/18 20:28 64 111/54 12/22/18 20:11 97.3 64 18 111/54 (73) 96 12/22/18 16:00 97.5 71 17 110/60 (77) 96 Intake and Output 12/22/18 12/23/18 19:00 07:00 Intake Total 1000 ml Output Total 1700 ml Balance -700 ml Intake Oral 1000 ml Output Urine Total 1700 ml Laboratory Tests 12/23/18 06:20: White Blood Count 5.4, Red Blood Count 3.17L, Hemoglobin 7.7L, Hematocrit 24.2L , Mean Corpuscular Volume 76L, Mean Corpuscular Hemoglobin 24.3L, Mean Corpuscular Hemoglobin Concent 31.8L, Red Cell Distribution Width 24.4H, Platelet Count 100L, Mean Platelet Volume 7.1, Neutrophils (%) (Auto) , Lymphocytes (%) (Auto) , Monocytes (%) (Auto) , Eosinophils (%) (Auto) , Basophils (%) (Auto) , Differential Total Cells Counted 100, Neutrophils % ( Manual) 19L, Lymphocytes % (Manual) 46H, Monocytes % (Manual) 14H, Eosinophils % (Manual) 7H, Basophils % (Manual) 2, Band Neutrophils 12H, Platelet Estimate DecreasedL, Platelet Morphology Normal, Giant Platelets 1+, Hypochromasia 3+, Anisocytosis 4+, Microcytosis 1+, Gibbs Cells 2+, Sodium Level 136, Potassium Level 3.9, Chloride Level 99, Carbon Dioxide Level 35H, Anion Gap 2L, Blood Urea Nitrogen 19H, Creatinine 0.8, Estimat Glomerular Filtration Rate , Glucose Level 101, Calcium Level 8.8 Height (Feet): 5 Height (Inches): 5.00 Weight (Pounds): 147 General Appearance: alert EENT: normal ENT inspection Neck: supple Cardiovascular: normal rate Respiratory/Chest: lungs clear Abdomen: normal bowel sounds, non tender, soft Extremities: non-tender Richie Mcguire MD Dec 23, 2018 12:01
--- NOTE | 2018-12-23 13:54 | Cardiac Electrophysiology PN ---
Assessment/Plan Assessment/Plan 1. Atypical chest pain and hx of CABG. Likely due to severe anemia. Ruled out [place]. Stress test cancelled for severe anemia. Hold off on stress test in view of leukemia On Lipitor and Coreg. Off Aspirin and Plavix for anemia and thrombocytopenia 2. Cardiomyopathy. EF now 55%. On Coreg 12.5 mg bid. 3. Status post [facility] atrial biventricular defibrillator. Interrogated and showed Nl Fx 4. Severe anemia, S/P PRBC. FU GI. 5. Pancytopenia with Platelet count of 17. Off Aspirin and PLavix S/P platelet transfusion. S/P BM biopsy 11/29/18. S/P PRBC Bone marrow bipsy confirmed Leukemia with 8.7% myeloblasts, FU by Dr Stock 6. Placement pending DIEGO RN Subjective Subjective Feeling weak. No CP or SOB. Awaiting placement Objective Last 24 Hour Vital Signs Date Time Temp Pulse Resp B/P (MAP) Pulse Ox O2 Delivery O2 Flow Rate FiO2 12/23/18 12:07 98.2 12/23/18 12:00 98.2 74 104/56 (72) 12/23/18 09:00 Room Air 12/23/18 08:24 69 107/50 12/23/18 08:00 98.3 97 20 108/66 (80) 96 12/23/18 04:00 98.1 78 18 141/73 (95) 95 12/22/18 21:10 Room Air 12/22/18 20:31 97 Nasal Cannula 2.0 28 12/22/18 20:31 Nasal Cannula 2.0 28 12/22/18 20:28 64 111/54 12/22/18 20:11 97.3 64 18 111/54 (73) 96 12/22/18 16:00 97.5 71 17 110/60 (77) 96 Intake and Output 12/22/18 12/23/18 18:59 06:59 Intake Total 1000 ml Output Total 1700 ml Balance -700 ml Intake Oral 1000 ml Output Urine Total 1700 ml Laboratory Tests Test 12/23/18 06:20 White Blood Count 5.4 K/UL (4.8-10.8) Red Blood Count 3.17 M/UL (4.70-6.10) L Hemoglobin 7.7 G/DL (14.2-18.0) L Hematocrit 24.2 % (42.0-52.0) L Mean Corpuscular Volume 76 FL (80-99) L Mean Corpuscular Hemoglobin 24.3 PG (27.0-31.0) L Mean Corpuscular Hemoglobin Concent 31.8 G/DL (32.0-36.0) L Red Cell Distribution Width 24.4 % (11.6-14.8) H Platelet Count 100 K/UL (150-450) L Mean Platelet Volume 7.1 FL (6.5-10.1) Neutrophils (%) (Auto) % (45.0-75.0) Lymphocytes (%) (Auto) % (20.0-45.0) Monocytes (%) (Auto) % (1.0-10.0) Eosinophils (%) (Auto) % (0.0-3.0) Basophils (%) (Auto) % (0.0-2.0) Differential Total Cells Counted 100 Neutrophils % (Manual) 19 % (45-75) L Lymphocytes % (Manual) 46 % (20-45) H Monocytes % (Manual) 14 % (1-10) H Eosinophils % (Manual) 7 % (0-3) H Basophils % (Manual) 2 % (0-2) Band Neutrophils 12 % (0-8) H Platelet Estimate Decreased L Platelet Morphology Normal Giant Platelets 1+ Hypochromasia 3+ Anisocytosis 4+ Microcytosis 1+ Gallion Cells 2+ Sodium Level 136 MMOL/L (136-145) Potassium Level 3.9 MMOL/L (3.5-5.1) Chloride Level 99 MMOL/L (98-107) Carbon Dioxide Level 35 MMOL/L (21-32) H Anion Gap 2 mmol/L (5-15) L Blood Urea Nitrogen 19 mg/dL (7-18) H Creatinine 0.8 MG/DL (0.55-1.30) Estimat Glomerular Filtration Rate mL/min (>60) Glucose Level 101 MG/DL (74-106) Calcium Level 8.8 MG/DL (8.5-10.1) Objective HEAD AND NECK: No JVD. LUNGS: Coarse rhonchi. CARDIOVASCULAR: Regular S1 and S2 with no gallop or murmur. Sternotomy is intact. ICD in left subclavian. ABDOMEN: Soft. EXTREMITIES: 1+ pitting edema. Satinder Gee MD Dec 23, 2018 13:54
--- NOTE | 2018-12-23 14:08 | Pulmonology Progress Note ---
Assessment/Plan Problems: (1) Myeloblastic leukemia (2) Severe thrombocytopenia (3) ACS (acute coronary syndrome) (4) Cardiomyopathy (5) HTN (hypertension) (6) Pacemaker (7) Hypothyroidism (8) CAD (coronary artery disease) Assessment/Plan doing better, still nauseous on fentNAYL PACH dc all oral analgesics and try Fentanyl Patch doing better early leukemia check electrolytes no malignancy in bone marrow all reviewed symptomatic treatment dc planning Subjective ROS Limited/Unobtainable: No Allergies: Coded Allergies: No Known Allergies (Verified , 09/12/10) Objective Last 24 Hour Vital Signs Date Time Temp Pulse Resp B/P (MAP) Pulse Ox O2 Delivery O2 Flow Rate FiO2 12/23/18 12:07 98.2 12/23/18 12:00 98.2 74 104/56 (72) 12/23/18 09:00 Room Air 12/23/18 08:24 69 107/50 12/23/18 08:00 98.3 97 20 108/66 (80) 96 12/23/18 04:00 98.1 78 18 141/73 (95) 95 12/22/18 21:10 Room Air 12/22/18 20:31 97 Nasal Cannula 2.0 28 12/22/18 20:31 Nasal Cannula 2.0 28 12/22/18 20:28 64 111/54 12/22/18 20:11 97.3 64 18 111/54 (73) 96 12/22/18 16:00 97.5 71 17 110/60 (77) 96 Intake and Output 12/22/18 12/23/18 18:59 06:59 Intake Total 1000 ml Output Total 1700 ml Balance -700 ml Intake Oral 1000 ml Output Urine Total 1700 ml Objective General Appearance: cachetic Lines, tubes and drains: peripheral HEENT: normocephalic, atraumatic Neck: non-tender, normal alignment Respiratory/Chest: chest wall non-tender, lungs clear Breasts: no masses Cardiovascular/Chest: normal peripheral pulses, normal rate Abdomen: normal bowel sounds, non tender Genitourinary/Rectal: normal genital exam Extremities: normal range of motion Skin Exam: normal pigmentation 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 Laboratory Tests 12/23/18 06:20: White Blood Count 5.4, Red Blood Count 3.17L, Hemoglobin 7.7L, Hematocrit 24.2L , Mean Corpuscular Volume 76L, Mean Corpuscular Hemoglobin 24.3L, Mean Corpuscular Hemoglobin Concent 31.8L, Red Cell Distribution Width 24.4H, Platelet Count 100L, Mean Platelet Volume 7.1, Neutrophils (%) (Auto) , Lymphocytes (%) (Auto) , Monocytes (%) (Auto) , Eosinophils (%) (Auto) , Basophils (%) (Auto) , Differential Total Cells Counted 100, Neutrophils % ( Manual) 19L, Lymphocytes % (Manual) 46H, Monocytes % (Manual) 14H, Eosinophils % (Manual) 7H, Basophils % (Manual) 2, Band Neutrophils 12H, Platelet Estimate DecreasedL, Platelet Morphology Normal, Giant Platelets 1+, Hypochromasia 3+, Anisocytosis 4+, Microcytosis 1+, [place] Cells 2+, Sodium Level 136, Potassium Level 3.9, Chloride Level 99, Carbon Dioxide Level 35H, Anion Gap 2L, Blood Urea Nitrogen 19H, Creatinine 0.8, Estimat Glomerular Filtration Rate , Glucose Level 101, Calcium Level 8.8 Current Medications Medications (Trade) Dose Ordered Sig/Scout Route PRN Reason Start Time Stop Time Status Last Admin Dose Admin Atorvastatin Calcium (Lipitor) 40 mg QHS ORAL 12/19/18 21:00 01/18/19 20:59 12/22/18 20:27 Bisacodyl (Dulcolax) 10 mg DAILYPRN PRN RECTAL Constipation 12/18/18 21:45 12/28/18 17:01 Carvedilol (Coreg) 12.5 mg EVERY 12 HOURS ORAL 12/19/18 09:00 01/18/19 08:59 12/23/18 08:24 Clonidine HCl (Catapres Tab) 0.1 mg Q2H PRN ORAL For High Blood Pressure 12/06/18 21:15 01/05/19 21:14 12/07/18 08:25 Docusate Sodium (Colace) 100 mg Q12H PRN ORAL Constipation 12/18/18 21:45 01/17/19 21:29 12/18/18 21:45 Escitalopram Oxalate (Lexapro) 15 mg DAILY ORAL 11/29/18 09:00 12/24/18 08:59 12/23/18 08:23 Famotidine (Pepcid) 20 mg QHS ORAL 11/30/18 21:00 12/30/18 20:59 12/22/18 20:27 Fentanyl (Duragesic) 1 patch Q72H TDERMAL 12/17/18 18:00 12/24/18 17:59 12/20/18 18:32 Furosemide (Lasix) 20 mg DAILY ORAL 12/19/18 17:45 01/18/19 17:44 12/23/18 08:23 Miscellaneous Medication (fentaNYL Destruction) 1 ea Q72H MISC 12/20/18 17:59 01/19/19 17:58 Morphine Sulfate (Morphine Sulfate) 2 mg Q4H PRN IM For Pain 12/23/18 06:15 12/30/18 06:14 12/23/18 11:02 Naloxone HCl (Narcan) 0.1 mg PRN IV Sedation scale 3 or 4 12/08/18 15:15 01/07/19 15:14 Ondansetron HCl (Zofran ODT) 4 mg Q4H PRN ORAL Nausea & Vomiting 12/07/18 10:00 01/06/19 09:59 12/16/18 15:20 Polyethylene Glycol (Miralax) 17 gm DAILYPRN PRN ORAL Constipation 12/18/18 21:45 12/28/18 17:03 Chepe Luong MD Dec 23, 2018 14:08
--- NOTE | 2018-12-23 15:42 | Internal Med Progress Note ---
Subjective Physician Name Abdias Hunter Attending Physician Abdias Hunter MD Current Medications Medications (Trade) Dose Ordered Sig/Scout Route PRN Reason Start Time Stop Time Status Last Admin Dose Admin Atorvastatin Calcium (Lipitor) 40 mg QHS ORAL 12/19/18 21:00 01/18/19 20:59 12/22/18 20:27 Bisacodyl (Dulcolax) 10 mg DAILYPRN PRN RECTAL Constipation 12/18/18 21:45 12/28/18 17:01 Carvedilol (Coreg) 12.5 mg EVERY 12 HOURS ORAL 12/19/18 09:00 01/18/19 08:59 12/23/18 08:24 Clonidine HCl (Catapres Tab) 0.1 mg Q2H PRN ORAL For High Blood Pressure 12/06/18 21:15 01/05/19 21:14 12/07/18 08:25 Docusate Sodium (Colace) 100 mg Q12H PRN ORAL Constipation 12/18/18 21:45 01/17/19 21:29 12/18/18 21:45 Escitalopram Oxalate (Lexapro) 15 mg DAILY ORAL 11/29/18 09:00 12/24/18 08:59 12/23/18 08:23 Famotidine (Pepcid) 20 mg QHS ORAL 11/30/18 21:00 12/30/18 20:59 12/22/18 20:27 Fentanyl (Duragesic) 1 patch Q72H TDERMAL 12/17/18 18:00 12/24/18 17:59 12/20/18 18:32 Furosemide (Lasix) 20 mg DAILY ORAL 12/19/18 17:45 01/18/19 17:44 12/23/18 08:23 Miscellaneous Medication (fentaNYL Destruction) 1 ea Q72H MISC 12/20/18 17:59 01/19/19 17:58 Morphine Sulfate (Morphine Sulfate) 2 mg Q4H PRN IM For Pain 12/23/18 06:15 12/30/18 06:14 12/23/18 11:02 Naloxone HCl (Narcan) 0.1 mg PRN IV Sedation scale 3 or 4 12/08/18 15:15 01/07/19 15:14 Ondansetron HCl (Zofran ODT) 4 mg Q4H PRN ORAL Nausea & Vomiting 12/07/18 10:00 01/06/19 09:59 12/16/18 15:20 Polyethylene Glycol (Miralax) 17 gm DAILYPRN PRN ORAL Constipation 12/18/18 21:45 12/28/18 17:03 Allergies: Coded Allergies: No Known Allergies (Verified , 09/12/10) Subjective Alert, oriented, no acute distress, no chest pain. Objective Last Vital Signs Date Time Temp Pulse Resp B/P (MAP) Pulse Ox O2 Delivery O2 Flow Rate FiO2 12/23/18 12:07 98.2 12/23/18 12:00 74 104/56 (72) 12/23/18 09:00 Room Air 12/23/18 08:00 20 96 12/22/18 20:31 2.0 28 Laboratory Tests Test 12/23/18 06:20 White Blood Count 5.4 K/UL (4.8-10.8) Red Blood Count 3.17 M/UL (4.70-6.10) L Hemoglobin 7.7 G/DL (14.2-18.0) L Hematocrit 24.2 % (42.0-52.0) L Mean Corpuscular Volume 76 FL (80-99) L Mean Corpuscular Hemoglobin 24.3 PG (27.0-31.0) L Mean Corpuscular Hemoglobin Concent 31.8 G/DL (32.0-36.0) L Red Cell Distribution Width 24.4 % (11.6-14.8) H Platelet Count 100 K/UL (150-450) L Mean Platelet Volume 7.1 FL (6.5-10.1) Neutrophils (%) (Auto) % (45.0-75.0) Lymphocytes (%) (Auto) % (20.0-45.0) Monocytes (%) (Auto) % (1.0-10.0) Eosinophils (%) (Auto) % (0.0-3.0) Basophils (%) (Auto) % (0.0-2.0) Differential Total Cells Counted 100 Neutrophils % (Manual) 19 % (45-75) L Lymphocytes % (Manual) 46 % (20-45) H Monocytes % (Manual) 14 % (1-10) H Eosinophils % (Manual) 7 % (0-3) H Basophils % (Manual) 2 % (0-2) Band Neutrophils 12 % (0-8) H Platelet Estimate Decreased L Platelet Morphology Normal Giant Platelets 1+ Hypochromasia 3+ Anisocytosis 4+ Microcytosis 1+ [place] Cells 2+ Sodium Level 136 MMOL/L (136-145) Potassium Level 3.9 MMOL/L (3.5-5.1) Chloride Level 99 MMOL/L (98-107) Carbon Dioxide Level 35 MMOL/L (21-32) H Anion Gap 2 mmol/L (5-15) L Blood Urea Nitrogen 19 mg/dL (7-18) H Creatinine 0.8 MG/DL (0.55-1.30) Estimat Glomerular Filtration Rate mL/min (>60) Glucose Level 101 MG/DL (74-106) Calcium Level 8.8 MG/DL (8.5-10.1) Intake and Output 12/22/18 12/23/18 18:59 06:59 Intake Total 1000 ml Output Total 1700 ml Balance -700 ml Intake Oral 1000 ml Output Urine Total 1700 ml Objective General: No acute distress, awake and alert HEENT: NCAT, sclera anicteric, PERRL, EOMI. Neck: Supple, no significant jugular venous distention, Lungs: Good inspiratory effort, clear to auscultation bilaterally, no Wheeze or Rales. Heart: Regular rate and rhythm, normal S1/S2, no murmur, AICD @ [facility]W. Abdomen: soft, nontender, nondistended. Normoactive bowel sounds. Extremities: No Cyanosis , clubbing or edema. Neuro: A&O x 3, Able to move all extremities Assessment/Plan Assessment/Plan 1. Chest pain, possible acute coronary syndrome. 2. Hypertension. 3. Dyslipidemia. 4. Congestive heart failure. 5. Coronary artery disease. 6. Sick sinus syndrome, status pacemaker. 7. Acute E. coli UTI. 8. 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 PLAN: Dr. Gee from Cardiology Electrophysiology. Dr. Luong, Pulmonary Critical Care. DVT prophylaxis: SCD Code status, Full Code. S/P transfusion 2 units PRBC on 11/19/18 waiting for SNF placement. Abx: Off monitor Labs Abdias Hunter MD Dec 23, 2018 15:42
[2018-12-23 16:00] VITALS: BP 107/73
--- NOTE | 2018-12-23 16:53 | General Progress Note ---
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 --> Hep panel and HIV negative, hep C++++ --> US abd to evaluate for cirrhosis and hsm reviewed --> Peripheral smear ordered to evaluate for blasts /schistocytes --> abx and other meds have been reviewed --> ok for ppx if plt >50k w/ either heparin or lovenox --> Transfuse if Plt < 20k and fever, or if Plt < 10k without fever --->Plt trend 70-->65-->44-->86-->122-->88-->100k # Anemia of chronic disease, some minor hemolysis is noted --> Anemia workup has been reviewed,bertha test is negative, retic reviewed --> Hgb goal >7. Transfuse prn. --> Epogen or iron at this time is not particularly indicated --> Medications have been reviewed --> Hgb trend: 9-->8.7-->7.9-->7-->7.6-->7.4->8.1 # Reticulocytosis with elevated bilirubin that is indirect --> reviewed direct and indirect bilis again, trend could have liver disease --> liver US shows no significant cirrhosis --> evaluate as needed with gi team, recs apprecaited #. Chest pain, possible acute coronary syndrome. --> cards recs appreciated as well as pulm --> stress test prn # Hypertension. sbp goal <140 # Dyslipidemia. # Chf # Coronary artery disease. # Sick sinus syndrome, status pacemaker. # Acute E. coli UTI s/p abx # Hep C+++ needs op management The timing of this note does not necessarily reflect the time of the patient was seen. Greatly appreciate consultation! Subjective Cardiovascular: Denies: no symptoms, chest pain, edema, irregular heart rate, lightheadedness, palpitations, syncope, other Respiratory: Denies: no symptoms, cough, orthopnea, shortness of breath, SOB with excertion, SOB at rest, sputum, stridor, wheezing, other Gastrointestinal/Abdominal: Denies: no symptoms, abdomen distended, abdominal pain, black stools, tarry stools, blood in stool, constipated, diarrhea, difficulty swallowing, nausea, poor appetite, poor fluid intake, rectal bleeding , vomiting, other Genitourinary: Denies: no symptoms, burning, discharge, frequency, flank pain, hematuria, incontinence, pain, urgency, other Neurologic/Psychiatric: Denies: no symptoms, anxiety, depressed, emotional problems, headache, numbness, paresthesia, pre-existing deficit, seizure, tingling, tremors, weakness, other Endocrine: Denies: no symptoms, excessive sweating, flushing, intolerance to cold, intolerance to heat, increased hunger, increased thirst, increased urine, unexplained weight gain, unexplained weight loss, other Allergies: Coded Allergies: No Known Allergies (Verified , 09/12/10) Subjective 11/27: no events to report, no f/c 11/28: seen by bedside, plt 65, plan for EGD and bone marrow biopsy tomorrow 11/29: BM biopsy today, no acute distress. 11/30: Had BM biopsy yesterday and now in reverse isolation. hgb 7.5, will transfuse as needed. 12/01: seen by bedside, plt remains low, awaiting bone marrow biopsy results. 12/02: No acute distress, no chest pain, no shortness of breath, wbc 2.7, hgb 7.3 , plt 50, will transfuse as needed. S/P BM biopsy 11/29/18, Results pending 12/04: bone marrow biopsy completed, and show myeloblasts, c/w mds/leukemia, requires close surveillance 12/05: hgb 6.9, Had blood transfusion today, plt up trending, no events 12/06: Seen by bedside, overall improved, still has complaint of chest pain, plt trending up 12/07: Given 1 unit prbc, continues to c/o chest pain, seen by cards 12/08: seen by bedside, complains of pain, plt 106, no events 12/09: awake, comfortable, plt trending down at 69, no events 12/11: awake, comfortable, on NC, plt remains low at 70. 12/12: awake, comfortable, plt 65, no events 12/13: seen by bedside, awake , comfortable, pending labs. 12/14: awake, comfortable, hgb 7.9, monitor, will transfuse as needed, plt trending down at 44, 12/15: seen by bedside, awake, comfortable, hgb 7, will transfuse as needed, plt 82. 12/16: awake comfortable, no events, hgb trending up 12/18: seen by bedside, alert, oriented, no acute distress 12/19: no events noted, no fevers or chills, cbc has been reviewed, had blasts on smear this wknd 12/20: seen by bedside, awake, comfortable, hgb 7.4, will transfuse as needed. 12/21: No overnight events reported, comfortable, hgb 8.1 12/22: no events to report, remains nausous, the platelet count has improved on its own 12/23: awaiting placement to snf at this time, following with cards, pulm Objective Last 24 Hour Vital Signs Date Time Temp Pulse Resp B/P (MAP) Pulse Ox O2 Delivery O2 Flow Rate FiO2 12/23/18 16:14 98.2 12/23/18 16:00 98.2 79 107/73 (84) 12/23/18 12:00 98.2 74 104/56 (72) 12/23/18 09:00 Room Air 12/23/18 08:24 69 107/50 12/23/18 08:00 98.3 97 20 108/66 (80) 96 12/23/18 04:00 98.1 78 18 141/73 (95) 95 12/22/18 21:10 Room Air 12/22/18 20:31 97 Nasal Cannula 2.0 28 12/22/18 20:31 Nasal Cannula 2.0 28 12/22/18 20:28 64 111/54 12/22/18 20:11 97.3 64 18 111/54 (73) 96 Intake and Output 12/22/18 12/23/18 18:59 06:59 Intake Total 1000 ml Output Total 1700 ml Balance -700 ml Intake Oral 1000 ml Output Urine Total 1700 ml Laboratory Tests 12/23/18 06:20: White Blood Count 5.4, Red Blood Count 3.17L, Hemoglobin 7.7L, Hematocrit 24.2L , Mean Corpuscular Volume 76L, Mean Corpuscular Hemoglobin 24.3L, Mean Corpuscular Hemoglobin Concent 31.8L, Red Cell Distribution Width 24.4H, Platelet Count 100L, Mean Platelet Volume 7.1, Neutrophils (%) (Auto) , Lymphocytes (%) (Auto) , Monocytes (%) (Auto) , Eosinophils (%) (Auto) , Basophils (%) (Auto) , Differential Total Cells Counted 100, Neutrophils % ( Manual) 19L, Lymphocytes % (Manual) 46H, Monocytes % (Manual) 14H, Eosinophils % (Manual) 7H, Basophils % (Manual) 2, Band Neutrophils 12H, Platelet Estimate DecreasedL, Platelet Morphology Normal, Giant Platelets 1+, Hypochromasia 3+, Anisocytosis 4+, Microcytosis 1+, [place] Cells 2+, Sodium Level 136, Potassium Level 3.9, Chloride Level 99, Carbon Dioxide Level 35H, Anion Gap 2L, Blood Urea Nitrogen 19H, Creatinine 0.8, Estimat Glomerular Filtration Rate , Glucose Level 101, Calcium Level 8.8 Height (Feet): 5 Height (Inches): 5.00 Weight (Pounds): 147 Objective General: well appearing, nad, alert Head: normocephalic, atraumatic Eyes: b/l eye PERRL, bilateral eye EOMI ENT: hearing grossly normal, normal pharynx Neck: full range of motion, supple, no meningismus Respiratory: chest non-tender, lungs clear, normal breath sounds, NC++ Cardiovascular: regular rate, rhythm, no murmur Gastrointestinal: normal bowel sounds, non tender, no mass, no organomegaly, no bruit, non-distended Musculoskeletal: back normal, normal range of motion Psychiatric: mood/affect normal Skin: warm/dry Jose Alberto España MD Dec 23, 2018 16:53
[2018-12-23] MEDS: fentaNYL Destruction MISC SCH (17:59)
[2018-12-23 20:00] VITALS: BP 132/73
[2018-12-23] MEDS: Atorvastatin 20mg tab ORAL SCH (20:30)
[2018-12-24] VITALS: BP 111/64
[2018-12-24] MEDS: Morphine Sulfate 2mg/ml Inj(IV/IM USE ONLY) IM PRN ×5 (02:02→20:11)
[2018-12-24 04:00] VITALS: BP 114/56
[2018-12-24 08:00] VITALS: BP 105/50
[2018-12-24] MEDS: Carvedilol 12.5mg tab ORAL SCH ×2 (08:32→21:00)
[2018-12-24 12:00] VITALS: BP 109/52
--- NOTE | 2018-12-24 14:08 | Internal Med Progress Note ---
Subjective Date of Service: Dec 24, 2018 Physician Name Nikhil West Attending Physician Abdias Hunter MD Current Medications Medications (Trade) Dose Ordered Sig/Scout Route PRN Reason Start Time Stop Time Status Last Admin Dose Admin Atorvastatin Calcium (Lipitor) 40 mg QHS ORAL 12/19/18 21:00 01/18/19 20:59 12/23/18 20:30 Bisacodyl (Dulcolax) 10 mg DAILYPRN PRN RECTAL Constipation 12/18/18 21:45 12/28/18 17:01 Carvedilol (Coreg) 12.5 mg EVERY 12 HOURS ORAL 12/19/18 09:00 01/18/19 08:59 12/23/18 20:31 Clonidine HCl (Catapres Tab) 0.1 mg Q2H PRN ORAL For High Blood Pressure 12/06/18 21:15 01/05/19 21:14 12/07/18 08:25 Docusate Sodium (Colace) 100 mg Q12H PRN ORAL Constipation 12/18/18 21:45 01/17/19 21:29 12/18/18 21:45 Famotidine (Pepcid) 20 mg QHS ORAL 11/30/18 21:00 12/30/18 20:59 12/23/18 20:30 Fentanyl (Duragesic) 1 patch Q72H TDERMAL 12/23/18 18:00 12/30/18 17:59 12/23/18 17:56 Furosemide (Lasix) 20 mg DAILY ORAL 12/19/18 17:45 01/18/19 17:44 12/23/18 08:23 Miscellaneous Medication (fentaNYL Destruction) 1 ea Q72H MISC 12/20/18 17:59 01/19/19 17:58 Morphine Sulfate (Morphine Sulfate) 2 mg Q4H PRN IM For Pain 12/23/18 06:15 12/30/18 06:14 12/24/18 10:18 Naloxone HCl (Narcan) 0.1 mg PRN IV Sedation scale 3 or 4 12/08/18 15:15 01/07/19 15:14 Ondansetron HCl (Zofran ODT) 4 mg Q4H PRN ORAL Nausea & Vomiting 12/07/18 10:00 01/06/19 09:59 12/16/18 15:20 Polyethylene Glycol (Miralax) 17 gm DAILYPRN PRN ORAL Constipation 12/18/18 21:45 12/28/18 17:03 12/24/18 10:17 Allergies: Coded Allergies: No Known Allergies (Verified , 09/12/10) Subjective 78 YO M admitted with chest pain. Now pancytopenia and UTI. Cover for Int Med- Dr Hunter. Objective Last Vital Signs Date Time Temp Pulse Resp B/P (MAP) Pulse Ox O2 Delivery O2 Flow Rate FiO2 12/24/18 12:00 98.2 63 18 109/52 (71) 100 12/24/18 09:00 Room Air 12/23/18 20:39 21 12/22/18 20:31 2.0 Intake and Output 12/23/18 12/24/18 19:00 07:00 Intake Total 2350 ml 360 ml Output Total 600 ml 500 ml Balance 1750 ml -140 ml Intake Oral 2350 ml 360 ml Output Urine Total 600 ml 500 ml # Voids 5 Objective PHYSICAL EXAMINATION: GENERAL: The patient awake, responsive, no acute distress. HEAD AND NECK: Pupils are equal and reactive to light. Extraocular movements are intact. Neck was supple. No JVD LUNGS: Good air entry. No wheeze or rales. HEART: S1, S2. Distant heart sounds. No murmur or gallops. Pacemaker in left-sided chest wall. ABDOMEN: Soft, nondistended, nontender. EXTREMITIES: No cyanosis, clubbing, edema. Varicose veins, bilateral lower extremities. NEUROLOGIC: Cranial nerves II through XII grossly intact. Motor is 5/5 in all extremities. Gait is intact. RECTAL: Refused and deferred. GENITOURINARY: Refused and deferred. PSYCHIATRIC: Mood and affect is depressed. Assessment/Plan Assessment/Plan ASSESSMENT: 1. Chest pain, possible acute coronary syndrome. 2. Hypertension. 3. Dyslipidemia. 4. Congestive heart failure. 5. Coronary artery disease. 6. Sick sinus syndrome, status pacemaker. 7. UTI. 8. Pancytopenia; S/P transfusion 4 units PRBC total-Severe anemia, Thrombocytopenia and leukopenia-?leukemia? see onc note. PLAN: Admit the patient to telemetry. Discussed case with Dr. Gee from Cardiology Electrophysiology. Await cardiac nuclear stress test-outpatient Dr. Luong, Pulmonary Critical Care. Urine cult=E. Coli. S/P Rocephin. DVT prophylaxis, heparin subcutaneous. Code status, Full Code. The patient is expected to be in the hospital greater than 2 days Discharge paln: [facility] S/P transfusion 2 units PRBC on 11/19/18 See Hematology consult-?acute myelocytic leukemia? Discharge to [facility]-see social work note Nikhil West MD Dec 24, 2018 14:08
--- NOTE | 2018-12-24 14:47 | General Progress Note ---
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 --> Hep panel and HIV negative, hep C++++ --> US abd to evaluate for cirrhosis and hsm reviewed --> Peripheral smear ordered to evaluate for blasts /schistocytes is wnl --> abx and other meds have been reviewed --> ok for ppx if plt >50k w/ either heparin or lovenox --> Transfuse if Plt < 20k and fever, or if Plt < 10k without fever --->Plt trend 70-->65-->44-->86-->122-->88-->100k # Anemia of chronic disease, some minor hemolysis is noted --> Anemia workup has been reviewed,bertha test is negative, retic reviewed --> Hgb goal >7. Transfuse prn. --> Epogen or iron at this time is not particularly indicated --> Medications have been reviewed --> Hgb trend: 9-->8.7-->7.9-->7-->7.6-->7.4->8.1-->7.7 # Reticulocytosis with elevated bilirubin that is indirect --> reviewed direct and indirect bilis again, trend could have liver disease --> liver US shows no significant cirrhosis --> evaluate as needed with gi team, recs apprecaited #. Chest pain, possible acute coronary syndrome. --> cards recs appreciated as well as pulm --> stress test prn # Hypertension. sbp goal <140 # Dyslipidemia. # Chf # Coronary artery disease. # Sick sinus syndrome, status pacemaker. # Acute E. coli UTI s/p abx # Hep C+++ needs op management The timing of this note does not necessarily reflect the time of the patient was seen. Greatly appreciate consultation! Subjective Constitutional: Denies: no symptoms, chills, diaphoresis, fever, malaise, weakness, other HEENT: Denies: no symptoms, eye pain, blurred vision, tearing, double vision, ear pain, ear discharge, nose pain, nose congestion, throat pain, throat swelling, mouth pain, mouth swelling, other Cardiovascular: Denies: no symptoms, chest pain, edema, irregular heart rate, lightheadedness, palpitations, syncope, other Respiratory: Denies: no symptoms, cough, orthopnea, shortness of breath, SOB with excertion, SOB at rest, sputum, stridor, wheezing, other Gastrointestinal/Abdominal: Denies: no symptoms, abdomen distended, abdominal pain, black stools, tarry stools, blood in stool, constipated, diarrhea, difficulty swallowing, nausea, poor appetite, poor fluid intake, rectal bleeding , vomiting, other Genitourinary: Denies: no symptoms, burning, discharge, frequency, flank pain, hematuria, incontinence, pain, urgency, other Neurologic/Psychiatric: Denies: no symptoms, anxiety, depressed, emotional problems, headache, numbness, paresthesia, pre-existing deficit, seizure, tingling, tremors, weakness, other Endocrine: Denies: no symptoms, excessive sweating, flushing, intolerance to cold, intolerance to heat, increased hunger, increased thirst, increased urine, unexplained weight gain, unexplained weight loss, other Allergies: Coded Allergies: No Known Allergies (Verified , 09/12/10) Subjective 11/27: no events to report, no f/c 11/28: seen by bedside, plt 65, plan for EGD and bone marrow biopsy tomorrow 11/29: BM biopsy today, no acute distress. 11/30: Had BM biopsy yesterday and now in reverse isolation. hgb 7.5, will transfuse as needed. 12/01: seen by bedside, plt remains low, awaiting bone marrow biopsy results. 12/02: No acute distress, no chest pain, no shortness of breath, wbc 2.7, hgb 7.3 , plt 50, will transfuse as needed. S/P BM biopsy 11/29/18, Results pending 12/04: bone marrow biopsy completed, and show myeloblasts, c/w mds/leukemia, requires close surveillance 12/05: hgb 6.9, Had blood transfusion today, plt up trending, no events 12/06: Seen by bedside, overall improved, still has complaint of chest pain, plt trending up 12/07: Given 1 unit prbc, continues to c/o chest pain, seen by cards 12/08: seen by bedside, complains of pain, plt 106, no events 12/09: awake, comfortable, plt trending down at 69, no events 12/11: awake, comfortable, on NC, plt remains low at 70. 12/12: awake, comfortable, plt 65, no events 12/13: seen by bedside, awake , comfortable, pending labs. 12/14: awake, comfortable, hgb 7.9, monitor, will transfuse as needed, plt trending down at 44, 12/15: seen by bedside, awake, comfortable, hgb 7, will transfuse as needed, plt 82. 12/16: awake comfortable, no events, hgb trending up 12/18: seen by bedside, alert, oriented, no acute distress 12/19: no events noted, no fevers or chills, cbc has been reviewed, had blasts on smear this wknd 12/20: seen by bedside, awake, comfortable, hgb 7.4, will transfuse as needed. 12/21: No overnight events reported, comfortable, hgb 8.1 12/22: no events to report, remains nausous, the platelet count has improved on its own 12/23: awaiting placement to snf at this time, following with cards, pulm 12/24: on 2l nc, received morphine today by rn, complaining of pain Objective Last 24 Hour Vital Signs Date Time Temp Pulse Resp B/P (MAP) Pulse Ox O2 Delivery O2 Flow Rate FiO2 12/24/18 12:00 98.2 63 18 109/52 (71) 100 12/24/18 10:48 98.1 12/24/18 09:00 Room Air 12/24/18 08:32 63 105/50 12/24/18 08:00 98.1 62 18 105/50 (68) 93 12/24/18 04:00 97.6 77 18 114/56 (75) 96 12/24/18 00:00 98.3 69 18 111/64 (80) 95 12/23/18 21:35 Room Air 12/23/18 20:39 Room Air 12/23/18 20:39 96 Room Air 21 12/23/18 20:31 68 123/77 12/23/18 20:00 97.9 72 18 132/73 (92) 97 12/23/18 18:33 98.2 12/23/18 16:00 98.2 79 107/73 (84) Intake and Output 12/23/18 12/24/18 19:00 07:00 Intake Total 2350 ml 360 ml Output Total 600 ml 500 ml Balance 1750 ml -140 ml Intake Oral 2350 ml 360 ml Output Urine Total 600 ml 500 ml # Voids 5 Height (Feet): 5 Height (Inches): 5.00 Weight (Pounds): 150 Objective General: well appearing, nad, alert Head: normocephalic, atraumatic Eyes: b/l eye PERRL, bilateral eye EOMI ENT: hearing grossly normal, normal pharynx Neck: full range of motion, supple, no meningismus Respiratory: chest non-tender, lungs clear, normal breath sounds, NC++ Cardiovascular: regular rate, rhythm, no murmur Gastrointestinal: normal bowel sounds, non tender, no mass, no organomegaly, no bruit, non-distended Musculoskeletal: back normal, normal range of motion Psychiatric: mood/affect normal Skin: warm/dry Jose Alberto España MD Dec 24, 2018 14:47
[2018-12-24] MEDS: Docusate 100mg cap ORAL PRN (14:53)
[2018-12-24 16:00] VITALS: BP 110/50
--- NOTE | 2018-12-24 17:50 | Cardiac Electrophysiology PN ---
Assessment/Plan Assessment/Plan 1. Atypical chest pain and hx of CABG. Likely due to severe anemia. Ruled out MS. Stress test cancelled for severe anemia. Hold off on stress test in view of leukemia On Lipitor and Coreg. Off Aspirin and Plavix for anemia and thrombocytopenia 2. Cardiomyopathy. EF now 55%. On Coreg 12.5 mg bid. 3. Status post [facility] atrial biventricular defibrillator. Interrogated and showed Nl Fx 4. Severe anemia, S/P PRBC. FU GI. 5. Pancytopenia with Platelet count of 17. Off Aspirin and PLavix S/P platelet transfusion. S/P BM biopsy 11/29/18. S/P PRBC Bone marrow bipsy confirmed Leukemia with 8.7% myeloblasts, FU by Dr Stock 6. Placement pending DIEGO RN Subjective Subjective No CP or SOB. Awaiting placement Objective Last 24 Hour Vital Signs Date Time Temp Pulse Resp B/P (MAP) Pulse Ox O2 Delivery O2 Flow Rate FiO2 12/24/18 16:00 98.6 66 18 110/50 (70) 100 12/24/18 15:24 98.2 12/24/18 12:00 98.2 63 18 109/52 (71) 100 12/24/18 09:00 Room Air 12/24/18 08:32 63 105/50 12/24/18 08:00 98.1 62 18 105/50 (68) 93 12/24/18 04:00 97.6 77 18 114/56 (75) 96 12/24/18 00:00 98.3 69 18 111/64 (80) 95 12/23/18 21:35 Room Air 12/23/18 20:39 Room Air 12/23/18 20:39 96 Room Air 21 12/23/18 20:31 68 123/77 12/23/18 20:00 97.9 72 18 132/73 (92) 97 12/23/18 18:33 98.2 Intake and Output 12/23/18 12/24/18 18:59 06:59 Intake Total 2350 ml 360 ml Output Total 600 ml 500 ml Balance 1750 ml -140 ml Intake Oral 2350 ml 360 ml Output Urine Total 600 ml 500 ml # Voids 5 Objective HEAD AND NECK: No JVD. LUNGS: Coarse rhonchi. CARDIOVASCULAR: Regular S1 and S2 with no gallop or murmur. Sternotomy is intact. ICD in left subclavian. ABDOMEN: Soft. EXTREMITIES: 1+ pitting edema. Satinder Gee MD Dec 24, 2018 17:50
--- NOTE | 2018-12-24 19:22 | Pulmonology Progress Note ---
Assessment/Plan Problems: (1) Myeloblastic leukemia (2) Severe thrombocytopenia (3) ACS (acute coronary syndrome) (4) Cardiomyopathy (5) HTN (hypertension) (6) Pacemaker (7) Hypothyroidism (8) CAD (coronary artery disease) Assessment/Plan doing better, still nauseous on fentNAYL PACH, pain better controlled dc all oral analgesics and try Fentanyl Patch doing better early leukemia check electrolytes no malignancy in bone marrow all reviewed symptomatic treatment dc planning Subjective ROS Limited/Unobtainable: No Allergies: Coded Allergies: No Known Allergies (Verified , 09/12/10) Objective Last 24 Hour Vital Signs Date Time Temp Pulse Resp B/P (MAP) Pulse Ox O2 Delivery O2 Flow Rate FiO2 12/24/18 16:00 98.6 66 18 110/50 (70) 100 12/24/18 15:24 98.2 12/24/18 12:00 98.2 63 18 109/52 (71) 100 12/24/18 09:00 Room Air 12/24/18 08:32 63 105/50 12/24/18 08:00 98.1 62 18 105/50 (68) 93 12/24/18 04:00 97.6 77 18 114/56 (75) 96 12/24/18 00:00 98.3 69 18 111/64 (80) 95 12/23/18 21:35 Room Air 12/23/18 20:39 Room Air 12/23/18 20:39 96 Room Air 21 12/23/18 20:31 68 123/77 12/23/18 20:00 97.9 72 18 132/73 (92) 97 Intake and Output 12/23/18 12/24/18 19:00 07:00 Intake Total 2350 ml 360 ml Output Total 600 ml 500 ml Balance 1750 ml -140 ml Intake Oral 2350 ml 360 ml Output Urine Total 600 ml 500 ml # Voids 5 Objective General Appearance: cachetic Lines, tubes and drains: peripheral HEENT: normocephalic, atraumatic Neck: non-tender, normal alignment Respiratory/Chest: chest wall non-tender, lungs clear Breasts: no masses Cardiovascular/Chest: normal peripheral pulses, normal rate Abdomen: normal bowel sounds, non tender Genitourinary/Rectal: normal genital exam Extremities: normal range of motion Skin Exam: normal pigmentation 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 Current Medications Medications (Trade) Dose Ordered Sig/Scout Route PRN Reason Start Time Stop Time Status Last Admin Dose Admin Atorvastatin Calcium (Lipitor) 40 mg QHS ORAL 12/19/18 21:00 01/18/19 20:59 12/23/18 20:30 Bisacodyl (Dulcolax) 10 mg DAILYPRN PRN RECTAL Constipation 12/18/18 21:45 12/28/18 17:01 Carvedilol (Coreg) 12.5 mg EVERY 12 HOURS ORAL 12/19/18 09:00 01/18/19 08:59 12/23/18 20:31 Clonidine HCl (Catapres Tab) 0.1 mg Q2H PRN ORAL For High Blood Pressure 12/06/18 21:15 01/05/19 21:14 12/07/18 08:25 Docusate Sodium (Colace) 100 mg Q12H PRN ORAL Constipation 12/18/18 21:45 01/17/19 21:29 12/24/18 14:53 Famotidine (Pepcid) 20 mg QHS ORAL 11/30/18 21:00 12/30/18 20:59 12/23/18 20:30 Fentanyl (Duragesic) 1 patch Q72H TDERMAL 12/23/18 18:00 12/30/18 17:59 12/23/18 17:56 Furosemide (Lasix) 20 mg DAILY ORAL 12/19/18 17:45 01/18/19 17:44 12/23/18 08:23 Miscellaneous Medication (fentaNYL Destruction) 1 ea Q72H MISC 12/20/18 17:59 01/19/19 17:58 Morphine Sulfate (Morphine Sulfate) 2 mg Q4H PRN IM For Pain 12/23/18 06:15 12/30/18 06:14 12/24/18 14:54 Naloxone HCl (Narcan) 0.1 mg PRN IV Sedation scale 3 or 4 12/08/18 15:15 01/07/19 15:14 Ondansetron HCl (Zofran ODT) 4 mg Q4H PRN ORAL Nausea & Vomiting 12/07/18 10:00 01/06/19 09:59 12/16/18 15:20 Polyethylene Glycol (Miralax) 17 gm DAILYPRN PRN ORAL Constipation 12/18/18 21:45 12/28/18 17:03 12/24/18 10:17 Chepe Luong MD Dec 24, 2018 19:22
[2018-12-24 20:00] VITALS: BP 114/43
[2018-12-24] MEDS: Atorvastatin 20mg tab ORAL SCH (20:11)
[2018-12-25] VITALS: BP 107/40
[2018-12-25] MEDS: Morphine Sulfate 2mg/ml Inj(IV/IM USE ONLY) IM PRN ×6 (00:18→22:28)
[2018-12-25 04:00] VITALS: BP 102/45
[2018-12-25 08:00] VITALS: BP 107/51
[2018-12-25] MEDS: Carvedilol 12.5mg tab ORAL SCH ×2 (08:23→20:20)
[2018-12-25 12:00] VITALS: BP 113/65
--- NOTE | 2018-12-25 14:33 | Pulmonology Progress Note ---
Assessment/Plan Problems: (1) Myeloblastic leukemia (2) Severe thrombocytopenia (3) ACS (acute coronary syndrome) (4) Cardiomyopathy (5) HTN (hypertension) (6) Pacemaker (7) Hypothyroidism (8) CAD (coronary artery disease) Assessment/Plan all reviewed doing better, still nauseous on fentNAYL PACH, pain better controlled dc all oral analgesics and try Fentanyl Patch doing better early leukemia check electrolytes no malignancy in bone marrow symptomatic treatment dc planning Subjective ROS Limited/Unobtainable: No Constitutional: Reports: no symptoms HEENT: Repors: no symptoms Respiratory: Reports: no symptoms Allergies: Coded Allergies: No Known Allergies (Verified , 09/12/10) Objective Last 24 Hour Vital Signs Date Time Temp Pulse Resp B/P (MAP) Pulse Ox O2 Delivery O2 Flow Rate FiO2 12/25/18 12:00 98.4 67 18 113/65 (81) 100 12/25/18 09:00 Room Air 12/25/18 08:23 69 107/51 12/25/18 08:00 98.2 69 17 107/51 (69) 100 12/25/18 04:00 97.6 61 18 102/45 (64) 100 12/25/18 00:00 98.2 65 18 107/40 (62) 100 12/24/18 21:00 Room Air 12/24/18 21:00 66 114/43 12/24/18 20:00 98.6 66 18 114/43 (66) 100 12/24/18 16:00 98.6 66 18 110/50 (70) 100 12/24/18 15:24 98.2 Intake and Output 12/24/18 12/25/18 19:00 07:00 Intake Total 480 ml 240 ml Output Total 480 ml 450 ml Balance 0 ml -210 ml Intake Oral 480 ml 240 ml Output Urine Total 480 ml 450 ml Objective General Appearance: cachetic Lines, tubes and drains: peripheral HEENT: normocephalic, atraumatic Neck: non-tender, normal alignment Respiratory/Chest: chest wall non-tender, lungs clear Breasts: no masses Cardiovascular/Chest: normal peripheral pulses, normal rate Abdomen: normal bowel sounds, non tender Genitourinary/Rectal: normal genital exam Extremities: normal range of motion Skin Exam: normal pigmentation 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 Current Medications Medications (Trade) Dose Ordered Sig/Scout Route PRN Reason Start Time Stop Time Status Last Admin Dose Admin Atorvastatin Calcium (Lipitor) 40 mg QHS ORAL 12/19/18 21:00 01/18/19 20:59 12/24/18 20:11 Bisacodyl (Dulcolax) 10 mg DAILYPRN PRN RECTAL Constipation 12/18/18 21:45 12/28/18 17:01 Carvedilol (Coreg) 12.5 mg EVERY 12 HOURS ORAL 12/19/18 09:00 01/18/19 08:59 12/23/18 20:31 Clonidine HCl (Catapres Tab) 0.1 mg Q2H PRN ORAL For High Blood Pressure 12/06/18 21:15 01/05/19 21:14 12/07/18 08:25 Docusate Sodium (Colace) 100 mg Q12H PRN ORAL Constipation 12/18/18 21:45 01/17/19 21:29 12/24/18 14:53 Famotidine (Pepcid) 20 mg QHS ORAL 11/30/18 21:00 12/30/18 20:59 12/24/18 20:11 Fentanyl (Duragesic) 1 patch Q72H TDERMAL 12/23/18 18:00 12/30/18 17:59 12/23/18 17:56 Furosemide (Lasix) 20 mg DAILY ORAL 12/19/18 17:45 01/18/19 17:44 12/23/18 08:23 Miscellaneous Medication (fentaNYL Destruction) 1 ea Q72H MISC 12/20/18 17:59 01/19/19 17:58 Morphine Sulfate (Morphine Sulfate) 2 mg Q4H PRN IM For Pain 12/23/18 06:15 12/30/18 06:14 12/25/18 14:21 Naloxone HCl (Narcan) 0.1 mg PRN IV Sedation scale 3 or 4 12/08/18 15:15 01/07/19 15:14 Ondansetron HCl (Zofran ODT) 4 mg Q4H PRN ORAL Nausea & Vomiting 12/07/18 10:00 01/06/19 09:59 12/16/18 15:20 Polyethylene Glycol (Miralax) 17 gm DAILYPRN PRN ORAL Constipation 12/18/18 21:45 12/28/18 17:03 12/24/18 10:17 Chepe Luong MD Dec 25, 2018 14:33
--- NOTE | 2018-12-25 15:37 | Internal Med Progress Note ---
Subjective Date of Service: Dec 25, 2018 Physician Name Nikhil West Attending Physician Abdias Hunter MD Current Medications Medications (Trade) Dose Ordered Sig/Scout Route PRN Reason Start Time Stop Time Status Last Admin Dose Admin Atorvastatin Calcium (Lipitor) 40 mg QHS ORAL 12/19/18 21:00 01/18/19 20:59 12/24/18 20:11 Bisacodyl (Dulcolax) 10 mg DAILYPRN PRN RECTAL Constipation 12/18/18 21:45 12/28/18 17:01 Carvedilol (Coreg) 12.5 mg EVERY 12 HOURS ORAL 12/19/18 09:00 01/18/19 08:59 12/23/18 20:31 Clonidine HCl (Catapres Tab) 0.1 mg Q2H PRN ORAL For High Blood Pressure 12/06/18 21:15 01/05/19 21:14 12/07/18 08:25 Docusate Sodium (Colace) 100 mg Q12H PRN ORAL Constipation 12/18/18 21:45 01/17/19 21:29 12/24/18 14:53 Famotidine (Pepcid) 20 mg QHS ORAL 11/30/18 21:00 12/30/18 20:59 12/24/18 20:11 Fentanyl (Duragesic) 1 patch Q72H TDERMAL 12/23/18 18:00 12/30/18 17:59 12/23/18 17:56 Furosemide (Lasix) 20 mg DAILY ORAL 12/19/18 17:45 01/18/19 17:44 12/23/18 08:23 Miscellaneous Medication (fentaNYL Destruction) 1 ea Q72H MISC 12/20/18 17:59 01/19/19 17:58 Morphine Sulfate (Morphine Sulfate) 2 mg Q4H PRN IM For Pain 12/23/18 06:15 12/30/18 06:14 12/25/18 14:21 Naloxone HCl (Narcan) 0.1 mg PRN IV Sedation scale 3 or 4 12/08/18 15:15 01/07/19 15:14 Ondansetron HCl (Zofran ODT) 4 mg Q4H PRN ORAL Nausea & Vomiting 12/07/18 10:00 01/06/19 09:59 12/16/18 15:20 Polyethylene Glycol (Miralax) 17 gm DAILYPRN PRN ORAL Constipation 12/18/18 21:45 12/28/18 17:03 12/24/18 10:17 Allergies: Coded Allergies: No Known Allergies (Verified , 09/12/10) Subjective 78 YO M admitted with chest pain. Now pancytopenia and UTI. Cover for Int Med- Dr Hunter. Objective Last Vital Signs Date Time Temp Pulse Resp B/P (MAP) Pulse Ox O2 Delivery O2 Flow Rate FiO2 12/25/18 12:00 98.4 67 18 113/65 (81) 100 12/25/18 09:00 Room Air 12/23/18 20:39 21 12/22/18 20:31 2.0 Intake and Output 12/24/18 12/25/18 19:00 07:00 Intake Total 480 ml 240 ml Output Total 480 ml 450 ml Balance 0 ml -210 ml Intake Oral 480 ml 240 ml Output Urine Total 480 ml 450 ml Objective PHYSICAL EXAMINATION: GENERAL: The patient awake, responsive, no acute distress. HEAD AND NECK: Pupils are equal and reactive to light. Extraocular movements are intact. Neck was supple. No JVD LUNGS: Good air entry. No wheeze or rales. HEART: S1, S2. Distant heart sounds. No murmur or gallops. Pacemaker in left-sided chest wall. ABDOMEN: Soft, nondistended, nontender. EXTREMITIES: No cyanosis, clubbing, edema. Varicose veins, bilateral lower extremities. NEUROLOGIC: Cranial nerves II through XII grossly intact. Motor is 5/5 in all extremities. Gait is intact. RECTAL: Refused and deferred. GENITOURINARY: Refused and deferred. PSYCHIATRIC: Mood and affect is depressed. Assessment/Plan Assessment/Plan ASSESSMENT: 1. Chest pain, possible acute coronary syndrome. 2. Hypertension. 3. Dyslipidemia. 4. Congestive heart failure. 5. Coronary artery disease. 6. Sick sinus syndrome, status pacemaker. 7. UTI. 8. Pancytopenia; S/P transfusion 4 units PRBC total-Severe anemia, Thrombocytopenia and leukopenia-?leukemia? see onc note. PLAN: Admit the patient to telemetry. Discussed case with Dr. Gee from Cardiology Electrophysiology. Await cardiac nuclear stress test-outpatient Dr. Luong, Pulmonary Critical Care. Urine cult=E. Coli. S/P Rocephin. DVT prophylaxis, heparin subcutaneous. Code status, Full Code. The patient is expected to be in the hospital greater than 2 days Discharge paln: [facility] S/P transfusion 2 units PRBC on 11/19/18 See Hematology consult-?acute myelocytic leukemia? Discharge to [facility]-see social work note Nikhil West MD Dec 25, 2018 15:37
[2018-12-25 16:00] VITALS: BP 113/59
--- NOTE | 2018-12-25 16:17 | General Progress Note ---
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+++ --> bone marrow bipsy/aspiration report reviewed and concerning for LEUKEMIA with 8.7% myeloblasts --> Continue to monitor for improvement, trend cbc --> HIV is negative, but hep C++ --> US abd ordered to r/o cirrhosis and hsm and is negative for those --> reverse isolation if ANC is <2000 --> Give neupogen if ANC <1000 --> Transfuse if hgb <7, with 1 unit prbc --> medications have been reviewed as well --> hospice v treatment as per pcp and referral # Thrombocytopenia - potential causes multifactorial, evaluate liver and viral etiologies to begin, also could be related to underlying medications patient has received. --> Hep panel and HIV negative, hep C++++ --> US abd to evaluate for cirrhosis and hsm reviewed --> Peripheral smear ordered to evaluate for blasts /schistocytes is wnl --> abx and other meds have been reviewed --> ok for ppx if plt >50k w/ either heparin or lovenox --> Transfuse if Plt < 20k and fever, or if Plt < 10k without fever --->Plt trend 70-->65-->44-->86-->122-->88-->100k # Anemia of chronic disease, some minor hemolysis is noted --> Anemia workup has been reviewed,bertha test is negative, retic reviewed --> Hgb goal >7. Transfuse prn. --> Epogen or iron at this time is not particularly indicated --> Medications have been reviewed --> Hgb trend: 9-->8.7-->7.9-->7-->7.6-->7.4->8.1-->7.7 # Reticulocytosis with elevated bilirubin that is indirect --> reviewed direct and indirect bilis again, trend could have liver disease --> liver US shows no significant cirrhosis --> evaluate as needed with gi team, recs apprecaited #. Chest pain, possible acute coronary syndrome. --> cards recs appreciated as well as pulm --> stress test prn # Hypertension. sbp goal <140 # Dyslipidemia. # Chf # Coronary artery disease. # Sick sinus syndrome, status pacemaker. # Acute E. coli UTI s/p abx # Hep C+++ needs op management The timing of this note does not necessarily reflect the time of the patient was seen. Greatly appreciate consultation! Subjective Constitutional: Denies: no symptoms, chills, diaphoresis, fever, malaise, weakness, other HEENT: Denies: no symptoms, eye pain, blurred vision, tearing, double vision, ear pain, ear discharge, nose pain, nose congestion, throat pain, throat swelling, mouth pain, mouth swelling, other Cardiovascular: Denies: no symptoms, chest pain, edema, irregular heart rate, lightheadedness, palpitations, syncope, other Respiratory: Denies: no symptoms, cough, orthopnea, shortness of breath, SOB with excertion, SOB at rest, sputum, stridor, wheezing, other Gastrointestinal/Abdominal: Denies: no symptoms, abdomen distended, abdominal pain, black stools, tarry stools, blood in stool, constipated, diarrhea, difficulty swallowing, nausea, poor appetite, poor fluid intake, rectal bleeding , vomiting, other Genitourinary: Denies: no symptoms, burning, discharge, frequency, flank pain, hematuria, incontinence, pain, urgency, other Neurologic/Psychiatric: Denies: no symptoms, anxiety, depressed, emotional problems, headache, numbness, paresthesia, pre-existing deficit, seizure, tingling, tremors, weakness, other Endocrine: Denies: no symptoms, excessive sweating, flushing, intolerance to cold, intolerance to heat, increased hunger, increased thirst, increased urine, unexplained weight gain, unexplained weight loss, other Allergies: Coded Allergies: No Known Allergies (Verified , 09/12/10) Subjective 11/27: no events to report, no f/c 11/28: seen by bedside, plt 65, plan for EGD and bone marrow biopsy tomorrow 11/29: BM biopsy today, no acute distress. 11/30: Had BM biopsy yesterday and now in reverse isolation. hgb 7.5, will transfuse as needed. 12/01: seen by bedside, plt remains low, awaiting bone marrow biopsy results. 12/02: No acute distress, no chest pain, no shortness of breath, wbc 2.7, hgb 7.3 , plt 50, will transfuse as needed. S/P BM biopsy 11/29/18, Results pending 12/04: bone marrow biopsy completed, and show myeloblasts, c/w mds/leukemia, requires close surveillance 12/05: hgb 6.9, Had blood transfusion today, plt up trending, no events 12/06: Seen by bedside, overall improved, still has complaint of chest pain, plt trending up 12/07: Given 1 unit prbc, continues to c/o chest pain, seen by cards 12/08: seen by bedside, complains of pain, plt 106, no events 12/09: awake, comfortable, plt trending down at 69, no events 12/11: awake, comfortable, on NC, plt remains low at 70. 12/12: awake, comfortable, plt 65, no events 12/13: seen by bedside, awake , comfortable, pending labs. 12/14: awake, comfortable, hgb 7.9, monitor, will transfuse as needed, plt trending down at 44, 12/15: seen by bedside, awake, comfortable, hgb 7, will transfuse as needed, plt 82. 12/16: awake comfortable, no events, hgb trending up 12/18: seen by bedside, alert, oriented, no acute distress 12/19: no events noted, no fevers or chills, cbc has been reviewed, had blasts on smear this wknd 12/20: seen by bedside, awake, comfortable, hgb 7.4, will transfuse as needed. 12/21: No overnight events reported, comfortable, hgb 8.1 12/22: no events to report, remains nausous, the platelet count has improved on its own 12/23: awaiting placement to snf at this time, following with cards, pulm 12/24: on 2l nc, received morphine today by rn, complaining of pain 12/25: no events today, no f/c, labs reviewed Objective Last 24 Hour Vital Signs Date Time Temp Pulse Resp B/P (MAP) Pulse Ox O2 Delivery O2 Flow Rate FiO2 12/25/18 16:00 98.5 65 20 113/59 (77) 100 12/25/18 12:00 98.4 67 18 113/65 (81) 100 12/25/18 09:00 Room Air 12/25/18 08:23 69 107/51 12/25/18 08:00 98.2 69 17 107/51 (69) 100 12/25/18 04:00 97.6 61 18 102/45 (64) 100 12/25/18 00:00 98.2 65 18 107/40 (62) 100 12/24/18 21:00 Room Air 12/24/18 21:00 66 114/43 12/24/18 20:00 98.6 66 18 114/43 (66) 100 Intake and Output 12/24/18 12/25/18 19:00 07:00 Intake Total 480 ml 240 ml Output Total 480 ml 450 ml Balance 0 ml -210 ml Intake Oral 480 ml 240 ml Output Urine Total 480 ml 450 ml Height (Feet): 5 Height (Inches): 5.00 Weight (Pounds): 147 Objective General: well appearing, nad, alert Head: normocephalic, atraumatic Eyes: b/l eye PERRL, bilateral eye EOMI ENT: hearing grossly normal, normal pharynx Neck: full range of motion, supple, no meningismus Respiratory: chest non-tender, lungs clear, normal breath sounds, NC++ Cardiovascular: regular rate, rhythm, no murmur Gastrointestinal: normal bowel sounds, non tender, no mass Musculoskeletal: back normal, normal range of motion Psychiatric: mood/affect normal Skin: warm/dry Jose Alberto España MD Dec 25, 2018 16:17
[2018-12-25] MEDS: Nitroglycerin Subl 0.4mg tab SL PRN ×3 (16:57→17:08)
[2018-12-25 20:00] VITALS: BP 123/64
[2018-12-25] MEDS: Atorvastatin 20mg tab ORAL SCH (20:19)
[2018-12-26] VITALS (8 sets, daily range): BP systolic 92–111; BP diastolic 35–80
[2018-12-26] MEDS: Morphine Sulfate 2mg/ml Inj(IV/IM USE ONLY) IM PRN ×5 (04:48→21:15)
[2018-12-26 07:12] LABS: HEMATOCRIT 20.6 % (42.0-52.0); MEAN CORPUSCULAR VOLUME 76 FL (80-99); PLATELET COUNT 128 K/UL (150-450); RED BLOOD COUNT 2.69 M/UL (4.70-6.10); RED CELL DISTRIBUTION WIDTH 24.1 % (11.6-14.8); WHITE BLOOD COUNT 6.5 K/UL (4.8-10.8)
[2018-12-26 07:18] LABS: ANION GAP 4 mmol/L (5-15); BLOOD UREA NITROGEN 18 mg/dL (7-18); CALCIUM 8.7 MG/DL (8.5-10.1); CARBON DIOXIDE 33 MMOL/L (21-32); CHLORIDE 98 MMOL/L (98-107); CREATININE 0.8 MG/DL (0.55-1.30); POTASSIUM 3.9 MMOL/L (3.5-5.1); SODIUM 135 MMOL/L (136-145)
[2018-12-26 07:22] LABS: HEMOGLOBIN 6.5 G/DL (14.2-18.0)
--- NOTE | 2018-12-26 09:03 | General Progress Note ---
Assessment/Plan Problem List: (1) History of CVA (cerebrovascular accident) ICD Codes: Z86.73 - Personal history of transient ischemic attack (TIA), and cerebral infarction without residual deficits SNOMED: 082400218 (2) Cardiomyopathy ICD Codes: I42.9 - Cardiomyopathy, unspecified SNOMED: 47264892 (3) Hypothyroidism ICD Codes: E03.9 - Hypothyroidism, unspecified SNOMED: 47027850 (4) HTN (hypertension) ICD Codes: I10 - Essential (primary) hypertension SNOMED: 62635172 (5) Severe thrombocytopenia ICD Codes: D69.6 - Thrombocytopenia, unspecified SNOMED: 772297782 (6) Anxiety disorder ICD Codes: F41.9 - Anxiety disorder, unspecified SNOMED: 499441399 (7) Severe anemia ICD Codes: D64.9 - Anemia, unspecified SNOMED: 799433473 (8) GERD (gastroesophageal reflux disease) ICD Codes: K21.9 - Gastro-esophageal reflux disease without esophagitis SNOMED: 872881421 (9) Pacemaker ICD Codes: Z95.0 - Presence of cardiac pacemaker SNOMED: 36455724, 862184052, 056553134 Assessment/Plan SUMMARY OF FINDINGS: 1. Gastritis. 2. A 6 cm hiatal hernia. RECOMMENDATIONS: Follow up biopsy results and treat accordingly. >> Mild chronic gastritis. Negative for H. pylori negative negative for dysplasia or malignancy. BM biopsy>> leukemia>> fu oncology monitor H&H, prn transfusions. bowel regime ppi, H2B qhs Zofran as needed fu labs Outpatient hep C treatment dc planning one unit prbc for today Subjective ROS Limited/Unobtainable: Yes Allergies: Coded Allergies: No Known Allergies (Verified , 09/12/10) Objective Last 24 Hour Vital Signs Date Time Temp Pulse Resp B/P (MAP) Pulse Ox O2 Delivery O2 Flow Rate FiO2 12/26/18 08:00 98.4 64 21 111/49 (69) 100 12/26/18 04:00 97.5 63 19 106/80 (89) 100 12/26/18 00:00 98.1 61 19 92/62 (72) 100 12/25/18 21:00 Room Air 12/25/18 20:20 71 123/64 12/25/18 20:00 98.7 71 19 123/64 (83) 98 12/25/18 17:08 113/59 12/25/18 17:03 113/59 12/25/18 16:57 113/59 12/25/18 16:00 98.5 65 20 113/59 (77) 100 12/25/18 12:00 98.4 67 18 113/65 (81) 100 Intake and Output 12/25/18 12/26/18 19:00 07:00 Intake Total 480 ml Output Total 300 ml Balance 180 ml Intake Oral 480 ml Output Urine Total 300 ml Laboratory Tests 12/26/18 05:20: White Blood Count 6.5, Red Blood Count 2.69L, Hemoglobin 6.5*L, Hematocrit 20.6L , Mean Corpuscular Volume 76L, Mean Corpuscular Hemoglobin 24.3L, Mean Corpuscular Hemoglobin Concent 31.8L, Red Cell Distribution Width 24.1H, Platelet Count 128L, Mean Platelet Volume 12.5H, Neutrophils (%) (Auto) , Lymphocytes (%) (Auto) , Monocytes (%) (Auto) , Eosinophils (%) (Auto) , Basophils (%) (Auto) , Neutrophils % (Manual) [Pending], Lymphocytes % (Manual) [Pending], Platelet Estimate [Pending], Platelet Morphology [Pending], Sodium Level 135L, Potassium Level 3.9, Chloride Level 98, Carbon Dioxide Level 33H, Anion Gap 4L, Blood Urea Nitrogen 18, Creatinine 0.8, Estimat Glomerular Filtration Rate , Glucose Level 95, Calcium Level 8.7 Height (Feet): 5 Height (Inches): 5.00 Weight (Pounds): 147 General Appearance: no apparent distress EENT: normal ENT inspection Neck: supple Cardiovascular: normal rate Respiratory/Chest: decreased breath sounds Abdomen: normal bowel sounds, non tender, soft Extremities: non-tender Richie Mcguire MD Dec 26, 2018 09:03
[2018-12-26] MEDS: Carvedilol 12.5mg tab ORAL SCH ×2 (09:16→20:19)
--- NOTE | 2018-12-26 13:41 | Pulmonology Progress Note ---
Assessment/Plan Problems: (1) Myeloblastic leukemia (2) Severe thrombocytopenia (3) ACS (acute coronary syndrome) (4) Cardiomyopathy (5) HTN (hypertension) (6) Pacemaker (7) Hypothyroidism (8) CAD (coronary artery disease) Assessment/Plan all reviewed doing better, still nauseous on fentNAYL PACH, pain better controlled dc all oral analgesics and try Fentanyl Patch doing better early leukemia check electrolytes no malignancy in bone marrow symptomatic treatment dc planning Subjective ROS Limited/Unobtainable: Yes Allergies: Coded Allergies: No Known Allergies (Verified , 09/12/10) Objective Last 24 Hour Vital Signs Date Time Temp Pulse Resp B/P (MAP) Pulse Ox O2 Delivery O2 Flow Rate FiO2 12/26/18 11:57 98.0 60 18 110/64 (79) 100 12/26/18 09:47 98.4 12/26/18 09:16 64 111/49 12/26/18 09:00 Room Air 12/26/18 08:00 98.4 64 21 111/49 (69) 100 12/26/18 04:00 97.5 63 19 106/80 (89) 100 12/26/18 00:00 98.1 61 19 92/62 (72) 100 12/25/18 21:00 Room Air 12/25/18 20:20 71 123/64 12/25/18 20:00 98.7 71 19 123/64 (83) 98 12/25/18 17:08 113/59 12/25/18 17:03 113/59 12/25/18 16:57 113/59 12/25/18 16:00 98.5 65 20 113/59 (77) 100 Intake and Output 12/25/18 12/26/18 19:00 07:00 Intake Total 480 ml Output Total 300 ml Balance 180 ml Intake Oral 480 ml Output Urine Total 300 ml Objective General Appearance: cachetic Lines, tubes and drains: peripheral HEENT: normocephalic, atraumatic Neck: non-tender, normal alignment Respiratory/Chest: chest wall non-tender, lungs clear Breasts: no masses Cardiovascular/Chest: normal peripheral pulses, normal rate Abdomen: normal bowel sounds, non tender Genitourinary/Rectal: normal genital exam Extremities: normal range of motion Skin Exam: normal pigmentation 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 Laboratory Tests 12/26/18 05:20: White Blood Count 6.5, Red Blood Count 2.69L, Hemoglobin 6.5*L, Hematocrit 20.6L , Mean Corpuscular Volume 76L, Mean Corpuscular Hemoglobin 24.3L, Mean Corpuscular Hemoglobin Concent 31.8L, Red Cell Distribution Width 24.1H, Platelet Count 128L, Mean Platelet Volume 12.5H, Neutrophils (%) (Auto) , Lymphocytes (%) (Auto) , Monocytes (%) (Auto) , Eosinophils (%) (Auto) , Basophils (%) (Auto) , Differential Total Cells Counted 100, Neutrophils % ( Manual) 16L, Lymphocytes % (Manual) 61H, Monocytes % (Manual) 13H, Eosinophils % (Manual) 4H, Basophils % (Manual) 1, Band Neutrophils 5, Reactive Lymphocytes Occasional, Platelet Estimate DecreasedL, Platelet Morphology , Giant Platelets 1+, Hypochromasia 2+, Anisocytosis 3+, Microcytosis 1+, Acanthocytes 1+, Schistocytes 1+, Sodium Level 135L, Potassium Level 3.9, Chloride Level 98, Carbon Dioxide Level 33H, Anion Gap 4L, Blood Urea Nitrogen 18, Creatinine 0.8, Estimat Glomerular Filtration Rate , Glucose Level 95, Calcium Level 8.7 Current Medications Medications (Trade) Dose Ordered Sig/Scout Route PRN Reason Start Time Stop Time Status Last Admin Dose Admin Atorvastatin Calcium (Lipitor) 40 mg QHS ORAL 12/19/18 21:00 01/18/19 20:59 12/25/18 20:19 Bisacodyl (Dulcolax) 10 mg DAILYPRN PRN RECTAL Constipation 12/18/18 21:45 12/28/18 17:01 Carvedilol (Coreg) 12.5 mg EVERY 12 HOURS ORAL 12/19/18 09:00 01/18/19 08:59 12/26/18 09:16 Clonidine HCl (Catapres Tab) 0.1 mg Q2H PRN ORAL For High Blood Pressure 12/06/18 21:15 01/05/19 21:14 12/07/18 08:25 Docusate Sodium (Colace) 100 mg Q12H PRN ORAL Constipation 12/18/18 21:45 01/17/19 21:29 12/24/18 14:53 Famotidine (Pepcid) 20 mg QHS ORAL 11/30/18 21:00 12/30/18 20:59 12/25/18 20:20 Fentanyl (Duragesic) 1 patch Q72H TDERMAL 12/23/18 18:00 12/30/18 17:59 12/23/18 17:56 Furosemide (Lasix) 20 mg DAILY ORAL 12/19/18 17:45 01/18/19 17:44 12/26/18 09:16 Miscellaneous Medication (fentaNYL Destruction) 1 ea Q72H MISC 12/20/18 17:59 01/19/19 17:58 Morphine Sulfate (Morphine Sulfate) 2 mg Q4H PRN IM For Pain 12/23/18 06:15 12/30/18 06:14 12/26/18 13:18 Naloxone HCl (Narcan) 0.1 mg PRN IV Sedation scale 3 or 4 12/08/18 15:15 01/07/19 15:14 Nitroglycerin (Ntg) 0.4 mg Q5M PRN SL Prn Chest Pain 12/25/18 16:55 01/24/19 16:54 12/25/18 17:08 Ondansetron HCl (Zofran ODT) 4 mg Q4H PRN ORAL Nausea & Vomiting 12/07/18 10:00 01/06/19 09:59 12/16/18 15:20 Polyethylene Glycol (Miralax) 17 gm DAILYPRN PRN ORAL Constipation 12/18/18 21:45 12/28/18 17:03 12/24/18 10:17 Chepe Luong MD Dec 26, 2018 13:41
--- NOTE | 2018-12-26 15:11 | Cardiac Electrophysiology PN ---
Assessment/Plan Assessment/Plan 1. Atypical chest pain and hx of CABG. Likely due to severe anemia. Ruled out [place]. Hold off on stress test in view of leukemia On Lipitor and Coreg. Off Aspirin and Plavix for anemia and thrombocytopenia 2. Cardiomyopathy. EF now 55%. On Coreg 12.5 mg bid. 3. Status post [facility] atrial biventricular defibrillator. Interrogated and showed Nl Fx 4. Severe anemia, S/P PRBC. FU GI. Geting PRBC again 5. Pancytopenia with Platelet count of 17. Off Aspirin and PLavix S/P platelet transfusion. S/P BM biopsy 11/29/18. S/P PRBC Bone marrow bipsy confirmed Leukemia with 8.7% myeloblasts, FU by Dr Stock 6. Placement pending DIEGO RN Subjective Subjective No CP or SOB. In NAD. Getting blood transfusion Objective Last 24 Hour Vital Signs Date Time Temp Pulse Resp B/P (MAP) Pulse Ox O2 Delivery O2 Flow Rate FiO2 12/26/18 14:04 99.0 63 16 99/35 (56) 100 12/26/18 13:48 98.0 12/26/18 13:30 98.6 67 16 105/42 (63) 100 12/26/18 11:57 98.0 60 18 110/64 (79) 100 12/26/18 09:16 64 111/49 12/26/18 09:00 Room Air 12/26/18 08:00 98.4 64 21 111/49 (69) 100 12/26/18 04:00 97.5 63 19 106/80 (89) 100 12/26/18 00:00 98.1 61 19 92/62 (72) 100 12/25/18 21:00 Room Air 12/25/18 20:20 71 123/64 12/25/18 20:00 98.7 71 19 123/64 (83) 98 12/25/18 17:08 113/59 12/25/18 17:03 113/59 12/25/18 16:57 113/59 12/25/18 16:00 98.5 65 20 113/59 (77) 100 Intake and Output 12/25/18 12/26/18 19:00 07:00 Intake Total 480 ml Output Total 300 ml Balance 180 ml Intake Oral 480 ml Output Urine Total 300 ml Laboratory Tests Test 12/26/18 05:20 White Blood Count 6.5 K/UL (4.8-10.8) Red Blood Count 2.69 M/UL (4.70-6.10) L Hemoglobin 6.5 G/DL (14.2-18.0) *L Hematocrit 20.6 % (42.0-52.0) L Mean Corpuscular Volume 76 FL (80-99) L Mean Corpuscular Hemoglobin 24.3 PG (27.0-31.0) L Mean Corpuscular Hemoglobin Concent 31.8 G/DL (32.0-36.0) L Red Cell Distribution Width 24.1 % (11.6-14.8) H Platelet Count 128 K/UL (150-450) L Mean Platelet Volume 12.5 FL (6.5-10.1) H Neutrophils (%) (Auto) % (45.0-75.0) Lymphocytes (%) (Auto) % (20.0-45.0) Monocytes (%) (Auto) % (1.0-10.0) Eosinophils (%) (Auto) % (0.0-3.0) Basophils (%) (Auto) % (0.0-2.0) Differential Total Cells Counted 100 Neutrophils % (Manual) 16 % (45-75) L Lymphocytes % (Manual) 61 % (20-45) H Monocytes % (Manual) 13 % (1-10) H Eosinophils % (Manual) 4 % (0-3) H Basophils % (Manual) 1 % (0-2) Band Neutrophils 5 % (0-8) Reactive Lymphocytes Occasional Platelet Estimate Decreased L Platelet Morphology Giant Platelets 1+ Hypochromasia 2+ Anisocytosis 3+ Microcytosis 1+ Acanthocytes 1+ Schistocytes 1+ Sodium Level 135 MMOL/L (136-145) L Potassium Level 3.9 MMOL/L (3.5-5.1) Chloride Level 98 MMOL/L (98-107) Carbon Dioxide Level 33 MMOL/L (21-32) H Anion Gap 4 mmol/L (5-15) L Blood Urea Nitrogen 18 mg/dL (7-18) Creatinine 0.8 MG/DL (0.55-1.30) Estimat Glomerular Filtration Rate mL/min (>60) Glucose Level 95 MG/DL (74-106) Calcium Level 8.7 MG/DL (8.5-10.1) Objective HEAD AND NECK: No JVD. LUNGS: Coarse rhonchi. CARDIOVASCULAR: Regular S1 and S2 with no gallop or murmur. Sternotomy is intact. ICD in left subclavian. ABDOMEN: Soft. EXTREMITIES: 1+ pitting edema. Satinder Gee MD Dec 26, 2018 15:11
[2018-12-26] MEDS: Nitroglycerin Subl 0.4mg tab SL PRN ×3 (15:31→15:41)
--- NOTE | 2018-12-26 16:23 | General Progress Note ---
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 --> Hep panel and HIV negative, hep C++++ --> US abd to evaluate for cirrhosis and hsm reviewed --> Peripheral smear ordered to evaluate for blasts /schistocytes is wnl --> abx and other meds have been reviewed --> ok for ppx if plt >50k w/ either heparin or lovenox --> Transfuse if Plt < 20k and fever, or if Plt < 10k without fever --->Plt trend 70-->65-->44-->86-->122-->88-->100k # Anemia of chronic disease, some minor hemolysis is noted --> Anemia workup has been reviewed,bertha test is negative, retic reviewed --> Hgb goal >7. Transfuse prn. --> Epogen or iron at this time is not particularly indicated --> Medications have been reviewed --> Hgb trend: 9-->8.7-->7.9-->7-->7.6-->7.4->8.1-->7.7-->6.5 --> transfuse 1 unit prbc on 12/25 # Reticulocytosis with elevated bilirubin that is indirect --> reviewed direct and indirect bilis again, trend could have liver disease --> liver US shows no significant cirrhosis --> evaluate as needed with gi team, recs apprecaited #. Chest pain, possible acute coronary syndrome. --> cards recs appreciated as well as pulm --> stress test prn # Hypertension. sbp goal <140 # Dyslipidemia. # Chf # Coronary artery disease. # Sick sinus syndrome, status pacemaker. # Acute E. coli UTI s/p abx # Hep C+++ needs op management The timing of this note does not necessarily reflect the time of the patient was seen. Greatly appreciate consultation! Subjective Constitutional: Denies: no symptoms, chills, diaphoresis, fever, malaise, weakness, other HEENT: Denies: no symptoms, eye pain, blurred vision, tearing, double vision, ear pain, ear discharge, nose pain, nose congestion, throat pain, throat swelling, mouth pain, mouth swelling, other Cardiovascular: Denies: no symptoms, chest pain, edema, irregular heart rate, lightheadedness, palpitations, syncope, other Gastrointestinal/Abdominal: Denies: no symptoms, abdomen distended, abdominal pain, black stools, tarry stools, blood in stool, constipated, diarrhea, difficulty swallowing, nausea, poor appetite, poor fluid intake, rectal bleeding , vomiting, other Genitourinary: Denies: no symptoms, burning, discharge, frequency, flank pain, hematuria, incontinence, pain, urgency, other Neurologic/Psychiatric: Denies: no symptoms, anxiety, depressed, emotional problems, headache, numbness, paresthesia, pre-existing deficit, seizure, tingling, tremors, weakness, other Endocrine: Denies: no symptoms, excessive sweating, flushing, intolerance to cold, intolerance to heat, increased hunger, increased thirst, increased urine, unexplained weight gain, unexplained weight loss, other Hematologic/Lymphatic: Denies: no symptoms, anemia, easy bleeding, easy bruising, other Allergies: Coded Allergies: No Known Allergies (Verified , 09/12/10) Subjective 11/27: no events to report, no f/c 11/28: seen by bedside, plt 65, plan for EGD and bone marrow biopsy tomorrow 11/29: BM biopsy today, no acute distress. 11/30: Had BM biopsy yesterday and now in reverse isolation. hgb 7.5, will transfuse as needed. 12/01: seen by bedside, plt remains low, awaiting bone marrow biopsy results. 12/02: No acute distress, no chest pain, no shortness of breath, wbc 2.7, hgb 7.3 , plt 50, will transfuse as needed. S/P BM biopsy 11/29/18, Results pending 12/04: bone marrow biopsy completed, and show myeloblasts, c/w mds/leukemia, requires close surveillance 12/05: hgb 6.9, Had blood transfusion today, plt up trending, no events 12/06: Seen by bedside, overall improved, still has complaint of chest pain, plt trending up 12/07: Given 1 unit prbc, continues to c/o chest pain, seen by cards 12/08: seen by bedside, complains of pain, plt 106, no events 12/09: awake, comfortable, plt trending down at 69, no events 12/11: awake, comfortable, on NC, plt remains low at 70. 12/12: awake, comfortable, plt 65, no events 12/13: seen by bedside, awake , comfortable, pending labs. 12/14: awake, comfortable, hgb 7.9, monitor, will transfuse as needed, plt trending down at 44, 12/15: seen by bedside, awake, comfortable, hgb 7, will transfuse as needed, plt 82. 12/16: awake comfortable, no events, hgb trending up 12/18: seen by bedside, alert, oriented, no acute distress 12/19: no events noted, no fevers or chills, cbc has been reviewed, had blasts on smear this wknd 12/20: seen by bedside, awake, comfortable, hgb 7.4, will transfuse as needed. 12/21: No overnight events reported, comfortable, hgb 8.1 12/22: no events to report, remains nausous, the platelet count has improved on its own 12/23: awaiting placement to snf at this time, following with cards, pulm 12/24: on 2l nc, received morphine today by rn, complaining of pain 12/25: no events today, no f/c, labs reviewed 12/26: no events report, will get one unit prbc today, has been ordered Objective Last 24 Hour Vital Signs Date Time Temp Pulse Resp B/P (MAP) Pulse Ox O2 Delivery O2 Flow Rate FiO2 12/26/18 16:00 98.2 64 16 106/55 (72) 99 12/26/18 15:41 99/35 12/26/18 15:36 99/35 12/26/18 15:31 99/35 12/26/18 14:04 99.0 63 16 99/35 (56) 100 12/26/18 13:48 98.0 12/26/18 13:30 98.6 67 16 105/42 (63) 100 12/26/18 11:57 98.0 60 18 110/64 (79) 100 12/26/18 09:16 64 111/49 12/26/18 09:00 Room Air 12/26/18 08:00 98.4 64 21 111/49 (69) 100 12/26/18 04:00 97.5 63 19 106/80 (89) 100 12/26/18 00:00 98.1 61 19 92/62 (72) 100 12/25/18 21:00 Room Air 12/25/18 20:20 71 123/64 12/25/18 20:00 98.7 71 19 123/64 (83) 98 12/25/18 17:08 113/59 12/25/18 17:03 113/59 12/25/18 16:57 113/59 Intake and Output 12/25/18 12/26/18 19:00 07:00 Intake Total 480 ml Output Total 300 ml Balance 180 ml Intake Oral 480 ml Output Urine Total 300 ml Laboratory Tests 12/26/18 05:20: White Blood Count 6.5, Red Blood Count 2.69L, Hemoglobin 6.5*L, Hematocrit 20.6L , Mean Corpuscular Volume 76L, Mean Corpuscular Hemoglobin 24.3L, Mean Corpuscular Hemoglobin Concent 31.8L, Red Cell Distribution Width 24.1H, Platelet Count 128L, Mean Platelet Volume 12.5H, Neutrophils (%) (Auto) , Lymphocytes (%) (Auto) , Monocytes (%) (Auto) , Eosinophils (%) (Auto) , Basophils (%) (Auto) , Differential Total Cells Counted 100, Neutrophils % ( Manual) 16L, Lymphocytes % (Manual) 61H, Monocytes % (Manual) 13H, Eosinophils % (Manual) 4H, Basophils % (Manual) 1, Band Neutrophils 5, Reactive Lymphocytes Occasional, Platelet Estimate DecreasedL, Platelet Morphology , Giant Platelets 1+, Hypochromasia 2+, Anisocytosis 3+, Microcytosis 1+, Acanthocytes 1+, Schistocytes 1+, Sodium Level 135L, Potassium Level 3.9, Chloride Level 98, Carbon Dioxide Level 33H, Anion Gap 4L, Blood Urea Nitrogen 18, Creatinine 0.8, Estimat Glomerular Filtration Rate , Glucose Level 95, Calcium Level 8.7 Height (Feet): 5 Height (Inches): 5.00 Weight (Pounds): 147 Objective General: well appearing, nad, alert Head: normocephalic, atraumatic Eyes: b/l eye PERRL, bilateral eye EOMI ENT: hearing grossly normal, normal pharynx Neck: full range of motion, supple, no meningismus Respiratory: chest non-tender, lungs clear, normal breath sounds, NC++ Cardiovascular: regular rate, rhythm, no murmur Gastrointestinal: normal bowel sounds, non tender, no mass Musculoskeletal: back normal, normal range of motion Psychiatric: mood/affect normal Skin: warm/dry Jose Alberto España MD Dec 26, 2018 16:23
[2018-12-26] MEDS: fentaNYL Destruction MISC SCH (17:40)
--- NOTE | 2018-12-26 17:51 | Internal Med Progress Note ---
Subjective Date of Service: Dec 26, 2018 Physician Name Nikhil West Attending Physician Abdias Hunter MD Current Medications Medications (Trade) Dose Ordered Sig/Scout Route PRN Reason Start Time Stop Time Status Last Admin Dose Admin Atorvastatin Calcium (Lipitor) 40 mg QHS ORAL 12/19/18 21:00 01/18/19 20:59 12/25/18 20:19 Bisacodyl (Dulcolax) 10 mg DAILYPRN PRN RECTAL Constipation 12/18/18 21:45 12/28/18 17:01 Carvedilol (Coreg) 12.5 mg EVERY 12 HOURS ORAL 12/19/18 09:00 01/18/19 08:59 12/26/18 09:16 Clonidine HCl (Catapres Tab) 0.1 mg Q2H PRN ORAL For High Blood Pressure 12/06/18 21:15 01/05/19 21:14 12/07/18 08:25 Docusate Sodium (Colace) 100 mg Q12H PRN ORAL Constipation 12/18/18 21:45 01/17/19 21:29 12/24/18 14:53 Famotidine (Pepcid) 20 mg QHS ORAL 11/30/18 21:00 12/30/18 20:59 12/25/18 20:20 Fentanyl (Duragesic) 1 patch Q72H TDERMAL 12/23/18 18:00 12/30/18 17:59 12/23/18 17:56 Furosemide (Lasix) 20 mg DAILY ORAL 12/19/18 17:45 01/18/19 17:44 12/26/18 09:16 Miscellaneous Medication (fentaNYL Destruction) 1 ea Q72H MISC 12/20/18 17:59 01/19/19 17:58 Morphine Sulfate (Morphine Sulfate) 2 mg Q4H PRN IM For Pain 12/23/18 06:15 12/30/18 06:14 12/26/18 17:17 Naloxone HCl (Narcan) 0.1 mg PRN IV Sedation scale 3 or 4 12/08/18 15:15 01/07/19 15:14 Nitroglycerin (Ntg) 0.4 mg Q5M PRN SL Prn Chest Pain 12/25/18 16:55 01/24/19 16:54 12/26/18 15:41 Ondansetron HCl (Zofran ODT) 4 mg Q4H PRN ORAL Nausea & Vomiting 12/07/18 10:00 01/06/19 09:59 12/16/18 15:20 Polyethylene Glycol (Miralax) 17 gm DAILYPRN PRN ORAL Constipation 12/18/18 21:45 12/28/18 17:03 12/24/18 10:17 Allergies: Coded Allergies: No Known Allergies (Verified , 09/12/10) ROS Limited/Unobtainable: No Constitutional: Reports: no symptoms HEENT: Reports: no symptoms Cardiovascular: Reports: no symptoms Respiratory: Reports: no symptoms Gastrointestinal/Abdominal: Reports: no symptoms Genitourinary: Reports: no symptoms Neurologic/Psychiatric: Reports: no symptoms Subjective 78 YO M admitted with chest pain. Now pancytopenia and UTI. Cover for Int Med- Dr Hunter. Objective Last Vital Signs Date Time Temp Pulse Resp B/P (MAP) Pulse Ox O2 Delivery O2 Flow Rate FiO2 12/26/18 16:00 98.2 64 16 106/55 (72) 99 12/26/18 09:00 Room Air 12/23/18 20:39 21 12/22/18 20:31 2.0 Laboratory Tests Test 12/26/18 05:20 White Blood Count 6.5 K/UL (4.8-10.8) Red Blood Count 2.69 M/UL (4.70-6.10) L Hemoglobin 6.5 G/DL (14.2-18.0) *L Hematocrit 20.6 % (42.0-52.0) L Mean Corpuscular Volume 76 FL (80-99) L Mean Corpuscular Hemoglobin 24.3 PG (27.0-31.0) L Mean Corpuscular Hemoglobin Concent 31.8 G/DL (32.0-36.0) L Red Cell Distribution Width 24.1 % (11.6-14.8) H Platelet Count 128 K/UL (150-450) L Mean Platelet Volume 12.5 FL (6.5-10.1) H Neutrophils (%) (Auto) % (45.0-75.0) Lymphocytes (%) (Auto) % (20.0-45.0) Monocytes (%) (Auto) % (1.0-10.0) Eosinophils (%) (Auto) % (0.0-3.0) Basophils (%) (Auto) % (0.0-2.0) Differential Total Cells Counted 100 Neutrophils % (Manual) 16 % (45-75) L Lymphocytes % (Manual) 61 % (20-45) H Monocytes % (Manual) 13 % (1-10) H Eosinophils % (Manual) 4 % (0-3) H Basophils % (Manual) 1 % (0-2) Band Neutrophils 5 % (0-8) Reactive Lymphocytes Occasional Platelet Estimate Decreased L Platelet Morphology Giant Platelets 1+ Hypochromasia 2+ Anisocytosis 3+ Microcytosis 1+ Acanthocytes 1+ Schistocytes 1+ Sodium Level 135 MMOL/L (136-145) L Potassium Level 3.9 MMOL/L (3.5-5.1) Chloride Level 98 MMOL/L (98-107) Carbon Dioxide Level 33 MMOL/L (21-32) H Anion Gap 4 mmol/L (5-15) L Blood Urea Nitrogen 18 mg/dL (7-18) Creatinine 0.8 MG/DL (0.55-1.30) Estimat Glomerular Filtration Rate mL/min (>60) Glucose Level 95 MG/DL (74-106) Calcium Level 8.7 MG/DL (8.5-10.1) Intake and Output 12/25/18 12/26/18 19:00 07:00 Intake Total 480 ml Output Total 300 ml Balance 180 ml Intake Oral 480 ml Output Urine Total 300 ml Objective PHYSICAL EXAMINATION: GENERAL: The patient awake, responsive, no acute distress. HEAD AND NECK: Pupils are equal and reactive to light. Extraocular movements are intact. Neck was supple. No JVD LUNGS: Good air entry. No wheeze or rales. HEART: S1, S2. Distant heart sounds. No murmur or gallops. Pacemaker in left-sided chest wall. ABDOMEN: Soft, nondistended, nontender. EXTREMITIES: No cyanosis, clubbing, edema. Varicose veins, bilateral lower extremities. NEUROLOGIC: Cranial nerves II through XII grossly intact. Motor is 5/5 in all extremities. Gait is intact. RECTAL: Refused and deferred. GENITOURINARY: Refused and deferred. PSYCHIATRIC: Mood and affect is depressed. Assessment/Plan Assessment/Plan ASSESSMENT: 1. Chest pain, possible acute coronary syndrome. 2. Hypertension. 3. Dyslipidemia. 4. Congestive heart failure. 5. Coronary artery disease. 6. Sick sinus syndrome, status pacemaker. 7. UTI. 8. Pancytopenia; S/P transfusion 5 units PRBC total-Severe anemia, Thrombocytopenia and leukopenia-?leukemia? see onc note. PLAN: Admit the patient to telemetry. Discussed case with Dr. Gee from Cardiology Electrophysiology. Await cardiac nuclear stress test-outpatient Dr. Luong, Pulmonary Critical Care. Urine cult=E. Coli. S/P Rocephin. DVT prophylaxis, heparin subcutaneous. Code status, Full Code. The patient is expected to be in the hospital greater than 2 days Discharge paln: [facility] S/P transfusion 2 units PRBC on 11/19/18 See Hematology consult-?acute myelocytic leukemia? Discharge to [facility]-see social work note Nikhil West MD Dec 26, 2018 17:51
[2018-12-26] MEDS: Atorvastatin 20mg tab ORAL SCH (20:16)
[2018-12-27 01:25] VITALS: BP 109/48
[2018-12-27] MEDS: Morphine Sulfate 2mg/ml Inj(IV/IM USE ONLY) IM PRN ×5 (01:29→20:40)
[2018-12-27 05:49] VITALS: BP 118/55
[2018-12-27 08:00] VITALS: BP 102/58
--- NOTE | 2018-12-27 08:52 | General Progress Note ---
Assessment/Plan Problem List: (1) History of CVA (cerebrovascular accident) ICD Codes: Z86.73 - Personal history of transient ischemic attack (TIA), and cerebral infarction without residual deficits SNOMED: 406926866 (2) Cardiomyopathy ICD Codes: I42.9 - Cardiomyopathy, unspecified SNOMED: 16372600 (3) Hypothyroidism ICD Codes: E03.9 - Hypothyroidism, unspecified SNOMED: 63257234 (4) HTN (hypertension) ICD Codes: I10 - Essential (primary) hypertension SNOMED: 57044302 (5) Severe thrombocytopenia ICD Codes: D69.6 - Thrombocytopenia, unspecified SNOMED: 521261338 (6) Anxiety disorder ICD Codes: F41.9 - Anxiety disorder, unspecified SNOMED: 680676642 (7) Severe anemia ICD Codes: D64.9 - Anemia, unspecified SNOMED: 766576105 (8) GERD (gastroesophageal reflux disease) ICD Codes: K21.9 - Gastro-esophageal reflux disease without esophagitis SNOMED: 111793513 (9) Pacemaker ICD Codes: Z95.0 - Presence of cardiac pacemaker SNOMED: 52756664, 141121376, 644734702 Assessment/Plan SUMMARY OF FINDINGS: 1. Gastritis. 2. A 6 cm hiatal hernia. RECOMMENDATIONS: Follow up biopsy results and treat accordingly. >> Mild chronic gastritis. Negative for H. pylori negative negative for dysplasia or malignancy. BM biopsy>> leukemia>> fu oncology monitor H&H, prn transfusions. bowel regime ppi, H2B qhs Zofran as needed fu labs Outpatient hep C treatment dc planning one unit prbc for today Subjective ROS Limited/Unobtainable: No Allergies: Coded Allergies: No Known Allergies (Verified , 09/12/10) Objective Last 24 Hour Vital Signs Date Time Temp Pulse Resp B/P (MAP) Pulse Ox O2 Delivery O2 Flow Rate FiO2 12/27/18 05:49 97.6 65 20 118/55 (76) 100 12/27/18 01:25 97.6 65 18 109/48 (68) 97 12/26/18 23:46 96 Room Air 12/26/18 23:46 Room Air 12/26/18 21:00 Room Air 12/26/18 20:19 63 109/50 12/26/18 20:00 99.3 63 17 109/50 (69) 99 12/26/18 18:41 98.2 12/26/18 17:47 98.2 12/26/18 16:00 98.2 64 16 106/55 (72) 99 12/26/18 15:41 99/35 12/26/18 15:36 99/35 12/26/18 15:31 99/35 12/26/18 14:04 99.0 63 16 99/35 (56) 100 12/26/18 13:30 98.6 67 16 105/42 (63) 100 12/26/18 11:57 98.0 60 18 110/64 (79) 100 12/26/18 09:16 64 111/49 12/26/18 09:00 Room Air Intake and Output 12/26/18 12/27/18 19:00 07:00 Intake Total 800 ml 400 ml Balance 800 ml 400 ml Intake Oral 800 ml 400 ml # Voids 3 2 # Bowel Movements 2 Height (Feet): 5 Height (Inches): 5.00 Weight (Pounds): 151 General Appearance: no apparent distress EENT: normal ENT inspection Neck: supple Cardiovascular: normal rate Respiratory/Chest: decreased breath sounds Abdomen: normal bowel sounds, non tender, soft Extremities: non-tender Richie Mcguire MD Dec 27, 2018 08:52
[2018-12-27] MEDS: Carvedilol 12.5mg tab ORAL SCH ×2 (09:00→20:42)
[2018-12-27 11:23] LABS: ANION GAP 5 mmol/L (5-15); BLOOD UREA NITROGEN 18 mg/dL (7-18); CALCIUM 8.8 MG/DL (8.5-10.1); CARBON DIOXIDE 35 MMOL/L (21-32); CHLORIDE 97 MMOL/L (98-107); CREATININE 0.9 MG/DL (0.55-1.30); POTASSIUM 3.8 MMOL/L (3.5-5.1); SODIUM 137 MMOL/L (136-145)
[2018-12-27 12:00] VITALS: BP 116/57
--- NOTE | 2018-12-27 12:39 | Pulmonology Progress Note ---
Assessment/Plan Problems: (1) Myeloblastic leukemia (2) Severe thrombocytopenia (3) ACS (acute coronary syndrome) (4) Cardiomyopathy (5) HTN (hypertension) (6) Pacemaker (7) Hypothyroidism (8) CAD (coronary artery disease) Assessment/Plan all reviewed doing better, still nauseous on fentNAYL PACH, pain better controlled dc all oral analgesics and try Fentanyl Patch doing better early leukemia check electrolytes no malignancy in bone marrow symptomatic treatment dc planning Subjective ROS Limited/Unobtainable: No Constitutional: Reports: no symptoms HEENT: Repors: no symptoms Respiratory: Reports: no symptoms Allergies: Coded Allergies: No Known Allergies (Verified , 09/12/10) Objective Last 24 Hour Vital Signs Date Time Temp Pulse Resp B/P (MAP) Pulse Ox O2 Delivery O2 Flow Rate FiO2 12/27/18 12:00 97.0 63 16 116/57 (76) 97 12/27/18 09:00 63 102/58 12/27/18 09:00 Room Air 12/27/18 08:00 97.7 63 16 102/58 (73) 100 12/27/18 05:49 97.6 65 20 118/55 (76) 100 12/27/18 01:25 97.6 65 18 109/48 (68) 97 12/26/18 23:46 96 Room Air 12/26/18 23:46 Room Air 12/26/18 21:00 Room Air 12/26/18 20:19 63 109/50 12/26/18 20:00 99.3 63 17 109/50 (69) 99 12/26/18 18:41 98.2 12/26/18 17:47 98.2 12/26/18 16:00 98.2 64 16 106/55 (72) 99 12/26/18 15:41 99/35 12/26/18 15:36 99/35 12/26/18 15:31 99/35 12/26/18 14:04 99.0 63 16 99/35 (56) 100 12/26/18 13:30 98.6 67 16 105/42 (63) 100 Intake and Output 12/26/18 12/27/18 19:00 07:00 Intake Total 800 ml 400 ml Balance 800 ml 400 ml Intake Oral 800 ml 400 ml # Voids 3 2 # Bowel Movements 2 Objective General Appearance: cachetic Lines, tubes and drains: peripheral HEENT: normocephalic, atraumatic Neck: non-tender, normal alignment Respiratory/Chest: chest wall non-tender, lungs clear Breasts: no masses Cardiovascular/Chest: normal peripheral pulses, normal rate Abdomen: normal bowel sounds, non tender Genitourinary/Rectal: normal genital exam Extremities: normal range of motion Skin Exam: normal pigmentation 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 Laboratory Tests 12/27/18 10:45: Sodium Level 137, Potassium Level 3.8, Chloride Level 97L, Carbon Dioxide Level 35H, Anion Gap 5, Blood Urea Nitrogen 18, Creatinine 0.9, Estimat Glomerular Filtration Rate , Glucose Level 102, Calcium Level 8.8 Current Medications Medications (Trade) Dose Ordered Sig/Scout Route PRN Reason Start Time Stop Time Status Last Admin Dose Admin Atorvastatin Calcium (Lipitor) 40 mg QHS ORAL 12/19/18 21:00 01/18/19 20:59 12/26/18 20:16 Bisacodyl (Dulcolax) 10 mg DAILYPRN PRN RECTAL Constipation 12/18/18 21:45 12/28/18 17:01 Carvedilol (Coreg) 12.5 mg EVERY 12 HOURS ORAL 12/19/18 09:00 01/18/19 08:59 12/26/18 09:16 Clonidine HCl (Catapres Tab) 0.1 mg Q2H PRN ORAL For High Blood Pressure 12/06/18 21:15 01/05/19 21:14 12/07/18 08:25 Docusate Sodium (Colace) 100 mg Q12H PRN ORAL Constipation 12/18/18 21:45 01/17/19 21:29 12/24/18 14:53 Famotidine (Pepcid) 20 mg QHS ORAL 11/30/18 21:00 12/30/18 20:59 12/26/18 20:15 Fentanyl (Duragesic) 1 patch Q72H TDERMAL 12/23/18 18:00 12/30/18 17:59 12/26/18 18:11 Furosemide (Lasix) 20 mg DAILY ORAL 12/19/18 17:45 01/18/19 17:44 12/27/18 09:55 Miscellaneous Medication (fentaNYL Destruction) 1 ea Q72H MISC 12/20/18 17:59 01/19/19 17:58 Morphine Sulfate (Morphine Sulfate) 2 mg Q4H PRN IM For Pain 12/23/18 06:15 12/30/18 06:14 12/27/18 05:52 Naloxone HCl (Narcan) 0.1 mg PRN IV Sedation scale 3 or 4 12/08/18 15:15 01/07/19 15:14 Nitroglycerin (Ntg) 0.4 mg Q5M PRN SL Prn Chest Pain 12/25/18 16:55 01/24/19 16:54 12/26/18 15:41 Ondansetron HCl (Zofran ODT) 4 mg Q4H PRN ORAL Nausea & Vomiting 12/07/18 10:00 01/06/19 09:59 12/16/18 15:20 Polyethylene Glycol (Miralax) 17 gm DAILYPRN PRN ORAL Constipation 12/18/18 21:45 12/28/18 17:03 12/24/18 10:17 Chepe Luong MD Dec 27, 2018 12:39
[2018-12-27 12:45] LABS: BASOPHILS % (AUTO) 7.1 % (0.0-2.0); EOSINOPHILS % (AUTO) 4.1 % (0.0-3.0); HEMATOCRIT 26.1 % (42.0-52.0); HEMOGLOBIN 8.3 G/DL (14.2-18.0); LYMPHOCYTES % (AUTO) 47.2 % (20.0-45.0); MEAN CORPUSCULAR VOLUME 78 FL (80-99); MONOCYTES % (AUTO) 14.7 % (1.0-10.0); NEUTROPHILS % (AUTO) 26.9 % (45.0-75.0); PLATELET COUNT 140 K/UL (150-450); RED BLOOD COUNT 3.35 M/UL (4.70-6.10); RED CELL DISTRIBUTION WIDTH 22.7 % (11.6-14.8); WHITE BLOOD COUNT 7.1 K/UL (4.8-10.8)
--- NOTE | 2018-12-27 13:06 | General Progress Note ---
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 --> Hep panel and HIV negative, hep C++++ --> US abd to evaluate for cirrhosis and hsm reviewed --> Peripheral smear ordered to evaluate for blasts /schistocytes is wnl --> abx and other meds have been reviewed --> ok for ppx if plt >50k w/ either heparin or lovenox --> Transfuse if Plt < 20k and fever, or if Plt < 10k without fever --->Plt trend 70-->65-->44-->86-->122-->88-->100k-->140k # Anemia of chronic disease, some minor hemolysis is noted --> Anemia workup has been reviewed,bertha test is negative, retic reviewed --> Hgb goal >7. Transfuse prn. --> Epogen or iron at this time is not particularly indicated --> Medications have been reviewed --> Hgb trend: 9-->8.7-->7.9-->7-->7.6-->7.4->8.1-->7.7-->6.5-->8.3 --> transfuse 1 unit prbc on 12/25 # Reticulocytosis with elevated bilirubin that is indirect --> reviewed direct and indirect bilis again, trend could have liver disease --> liver US shows no significant cirrhosis --> evaluate as needed with gi team, recs apprecaited #. Chest pain, possible acute coronary syndrome. --> cards recs appreciated as well as pulm --> stress test prn # Hypertension. sbp goal <140 # Dyslipidemia. # Chf # Coronary artery disease. # Sick sinus syndrome, status pacemaker. # Acute E. coli UTI s/p abx # Hep C+++ needs op management The timing of this note does not necessarily reflect the time of the patient was seen. Greatly appreciate consultation! Subjective Constitutional: Denies: no symptoms, chills, diaphoresis, fever, malaise, weakness, other HEENT: Denies: no symptoms, eye pain, blurred vision, tearing, double vision, ear pain, ear discharge, nose pain, nose congestion, throat pain, throat swelling, mouth pain, mouth swelling, other Cardiovascular: Denies: no symptoms, chest pain, edema, irregular heart rate, lightheadedness, palpitations, syncope, other Gastrointestinal/Abdominal: Denies: no symptoms, abdomen distended, abdominal pain, black stools, tarry stools, blood in stool, constipated, diarrhea, difficulty swallowing, nausea, poor appetite, poor fluid intake, rectal bleeding , vomiting, other Genitourinary: Denies: no symptoms, burning, discharge, frequency, flank pain, hematuria, incontinence, pain, urgency, other Neurologic/Psychiatric: Denies: no symptoms, anxiety, depressed, emotional problems, headache, numbness, paresthesia, pre-existing deficit, seizure, tingling, tremors, weakness, other Endocrine: Denies: no symptoms, excessive sweating, flushing, intolerance to cold, intolerance to heat, increased hunger, increased thirst, increased urine, unexplained weight gain, unexplained weight loss, other Allergies: Coded Allergies: No Known Allergies (Verified , 09/12/10) Subjective 11/27: no events to report, no f/c 11/28: seen by bedside, plt 65, plan for EGD and bone marrow biopsy tomorrow 11/29: BM biopsy today, no acute distress. 11/30: Had BM biopsy yesterday and now in reverse isolation. hgb 7.5, will transfuse as needed. 12/01: seen by bedside, plt remains low, awaiting bone marrow biopsy results. 12/02: No acute distress, no chest pain, no shortness of breath, wbc 2.7, hgb 7.3 , plt 50, will transfuse as needed. S/P BM biopsy 11/29/18, Results pending 12/04: bone marrow biopsy completed, and show myeloblasts, c/w mds/leukemia, requires close surveillance 12/05: hgb 6.9, Had blood transfusion today, plt up trending, no events 12/06: Seen by bedside, overall improved, still has complaint of chest pain, plt trending up 12/07: Given 1 unit prbc, continues to c/o chest pain, seen by cards 12/08: seen by bedside, complains of pain, plt 106, no events 12/09: awake, comfortable, plt trending down at 69, no events 12/11: awake, comfortable, on NC, plt remains low at 70. 12/12: awake, comfortable, plt 65, no events 12/13: seen by bedside, awake , comfortable, pending labs. 12/14: awake, comfortable, hgb 7.9, monitor, will transfuse as needed, plt trending down at 44, 12/15: seen by bedside, awake, comfortable, hgb 7, will transfuse as needed, plt 82. 12/16: awake comfortable, no events, hgb trending up 12/18: seen by bedside, alert, oriented, no acute distress 12/19: no events noted, no fevers or chills, cbc has been reviewed, had blasts on smear this wknd 12/20: seen by bedside, awake, comfortable, hgb 7.4, will transfuse as needed. 12/21: No overnight events reported, comfortable, hgb 8.1 12/22: no events to report, remains nausous, the platelet count has improved on its own 12/23: awaiting placement to snf at this time, following with cards, pulm 12/24: on 2l nc, received morphine today by rn, complaining of pain 12/25: no events today, no f/c, labs reviewed 12/26: no events report, will get one unit prbc today, has been ordered 12/27: hgb stable/improved but is after transfusion, no events otherwise no fevers Objective Last 24 Hour Vital Signs Date Time Temp Pulse Resp B/P (MAP) Pulse Ox O2 Delivery O2 Flow Rate FiO2 12/27/18 12:00 97.0 63 16 116/57 (76) 97 12/27/18 09:00 63 102/58 12/27/18 09:00 Room Air 12/27/18 08:00 97.7 63 16 102/58 (73) 100 12/27/18 05:49 97.6 65 20 118/55 (76) 100 12/27/18 01:25 97.6 65 18 109/48 (68) 97 12/26/18 23:46 96 Room Air 12/26/18 23:46 Room Air 12/26/18 21:00 Room Air 12/26/18 20:19 63 109/50 12/26/18 20:00 99.3 63 17 109/50 (69) 99 12/26/18 18:41 98.2 12/26/18 17:47 98.2 12/26/18 16:00 98.2 64 16 106/55 (72) 99 12/26/18 15:41 99/35 12/26/18 15:36 99/35 12/26/18 15:31 99/35 12/26/18 14:04 99.0 63 16 99/35 (56) 100 12/26/18 13:30 98.6 67 16 105/42 (63) 100 Intake and Output 12/26/18 12/27/18 19:00 07:00 Intake Total 800 ml 400 ml Balance 800 ml 400 ml Intake Oral 800 ml 400 ml # Voids 3 2 # Bowel Movements 2 Laboratory Tests 12/27/18 10:45: Sodium Level 137, Potassium Level 3.8, Chloride Level 97L, Carbon Dioxide Level 35H, Anion Gap 5, Blood Urea Nitrogen 18, Creatinine 0.9, Estimat Glomerular Filtration Rate , Glucose Level 102, Calcium Level 8.8 12/27/18 12:15: White Blood Count 7.1, Red Blood Count 3.35L, Hemoglobin 8.3L, Hematocrit 26.1L , Mean Corpuscular Volume 78L, Mean Corpuscular Hemoglobin 24.6L, Mean Corpuscular Hemoglobin Concent 31.6L, Red Cell Distribution Width 22.7H, Platelet Count 140L, Mean Platelet Volume 13.5H, Neutrophils (%) (Auto) 26.9L, Lymphocytes (%) (Auto) 47.2H, Monocytes (%) (Auto) 14.7H, Eosinophils (%) (Auto ) 4.1H, Basophils (%) (Auto) 7.1H Height (Feet): 5 Height (Inches): 5.00 Weight (Pounds): 151 Objective General: well appearing, nad, alert Head: normocephalic, atraumatic Eyes: b/l eye PERRL, bilateral eye EOMI ENT: hearing grossly normal, normal pharynx Neck: full range of motion, supple, no meningismus Respiratory: chest non-tender, lungs clear, normal BSs, NC++ CV: regular rate, rhythm, no murmur GI: normal bowel sounds, non tender, no mass MSK: back normal, normal range of motion Psychiatric: mood/affect normal Skin: warm/dry Jose Alberto España MD Dec 27, 2018 13:06
--- NOTE | 2018-12-27 15:31 | Cardiac Electrophysiology PN ---
Assessment/Plan Assessment/Plan 1. Atypical chest pain and hx of CABG. Likely due to severe anemia. Ruled out [place]. Hold off on stress test in view of leukemia On Lipitor and Coreg. Off Aspirin and Plavix for anemia and thrombocytopenia 2. Cardiomyopathy. EF now 55%. On Coreg 12.5 mg bid. 3. Status post [facility] atriobiventricular defibrillator. Interrogated and showed Nl Fx 4. Severe anemia, S/P multiple PRBC and platelet transfusions . 5. Pancytopenia with Platelet count of 17. Off Aspirin and PLavix S/P platelet transfusion. S/P BM biopsy 11/29/18. S/P PRBC transfusion S/P Bone marrow biopsy confirmed Leukemia FU by Dr Stock 6. Placement pending DW RN Subjective Subjective No CP or SOB. In NAD s/p blood transfusion Objective Last 24 Hour Vital Signs Date Time Temp Pulse Resp B/P (MAP) Pulse Ox O2 Delivery O2 Flow Rate FiO2 12/27/18 12:00 97.0 63 16 116/57 (76) 97 12/27/18 09:55 Room Air 12/27/18 09:55 95 Room Air 12/27/18 09:00 63 102/58 12/27/18 09:00 Room Air 12/27/18 08:00 97.7 63 16 102/58 (73) 100 12/27/18 05:49 97.6 65 20 118/55 (76) 100 12/27/18 01:25 97.6 65 18 109/48 (68) 97 12/26/18 23:46 96 Room Air 12/26/18 23:46 Room Air 12/26/18 21:00 Room Air 12/26/18 20:19 63 109/50 12/26/18 20:00 99.3 63 17 109/50 (69) 99 12/26/18 18:41 98.2 12/26/18 17:47 98.2 12/26/18 16:00 98.2 64 16 106/55 (72) 99 12/26/18 15:41 99/35 12/26/18 15:36 99/35 12/26/18 15:31 99/35 Intake and Output 12/26/18 12/27/18 19:00 07:00 Intake Total 800 ml 400 ml Balance 800 ml 400 ml Intake Oral 800 ml 400 ml # Voids 3 2 # Bowel Movements 2 Laboratory Tests Test 3/26/19 10:45 12/27/18 12:15 Sodium Level 137 MMOL/L (136-145) Potassium Level 3.8 MMOL/L (3.5-5.1) Chloride Level 97 MMOL/L (98-107) L Carbon Dioxide Level 35 MMOL/L (21-32) H Anion Gap 5 mmol/L (5-15) Blood Urea Nitrogen 18 mg/dL (7-18) Creatinine 0.9 MG/DL (0.55-1.30) Estimat Glomerular Filtration Rate mL/min (>60) Glucose Level 102 MG/DL (74-106) Calcium Level 8.8 MG/DL (8.5-10.1) White Blood Count 7.1 K/UL (4.8-10.8) Red Blood Count 3.35 M/UL (4.70-6.10) L Hemoglobin 8.3 G/DL (14.2-18.0) L Hematocrit 26.1 % (42.0-52.0) L Mean Corpuscular Volume 78 FL (80-99) L Mean Corpuscular Hemoglobin 24.6 PG (27.0-31.0) L Mean Corpuscular Hemoglobin Concent 31.6 G/DL (32.0-36.0) L Red Cell Distribution Width 22.7 % (11.6-14.8) H Platelet Count 140 K/UL (150-450) L Mean Platelet Volume 13.5 FL (6.5-10.1) H Neutrophils (%) (Auto) 26.9 % (45.0-75.0) L Lymphocytes (%) (Auto) 47.2 % (20.0-45.0) H Monocytes (%) (Auto) 14.7 % (1.0-10.0) H Eosinophils (%) (Auto) 4.1 % (0.0-3.0) H Basophils (%) (Auto) 7.1 % (0.0-2.0) H Objective HEAD AND NECK: No JVD. LUNGS: Coarse rhonchi. CARDIOVASCULAR: Regular S1 and S2 with no gallop or murmur. Sternotomy intact. ICD in left subclavian. ABDOMEN: Soft. EXTREMITIES: 1+ pitting edema. Satinder Gee MD Dec 27, 2018 15:31
[2018-12-27 16:00] VITALS: BP 123/67
--- NOTE | 2018-12-27 17:53 | Internal Med Progress Note ---
Subjective Date of Service: Dec 27, 2018 Physician Name Nikhil West Attending Physician Abdias Hunter MD Current Medications Medications (Trade) Dose Ordered Sig/Scout Route PRN Reason Start Time Stop Time Status Last Admin Dose Admin Atorvastatin Calcium (Lipitor) 40 mg QHS ORAL 12/19/18 21:00 01/18/19 20:59 12/26/18 20:16 Bisacodyl (Dulcolax) 10 mg DAILYPRN PRN RECTAL Constipation 12/18/18 21:45 12/28/18 17:01 Carvedilol (Coreg) 12.5 mg EVERY 12 HOURS ORAL 12/19/18 09:00 01/18/19 08:59 12/26/18 09:16 Clonidine HCl (Catapres Tab) 0.1 mg Q2H PRN ORAL For High Blood Pressure 12/06/18 21:15 01/05/19 21:14 12/07/18 08:25 Docusate Sodium (Colace) 100 mg Q12H PRN ORAL Constipation 12/18/18 21:45 01/17/19 21:29 12/24/18 14:53 Famotidine (Pepcid) 20 mg QHS ORAL 11/30/18 21:00 12/30/18 20:59 12/26/18 20:15 Fentanyl (Duragesic) 1 patch Q72H TDERMAL 12/23/18 18:00 12/30/18 17:59 12/26/18 18:11 Furosemide (Lasix) 20 mg DAILY ORAL 12/19/18 17:45 01/18/19 17:44 12/27/18 09:55 Miscellaneous Medication (fentaNYL Destruction) 1 ea Q72H MISC 12/20/18 17:59 01/19/19 17:58 Morphine Sulfate (Morphine Sulfate) 2 mg Q4H PRN IM For Pain 12/23/18 06:15 12/30/18 06:14 12/27/18 16:46 Naloxone HCl (Narcan) 0.1 mg PRN IV Sedation scale 3 or 4 12/08/18 15:15 01/07/19 15:14 Nitroglycerin (Ntg) 0.4 mg Q5M PRN SL Prn Chest Pain 12/25/18 16:55 01/24/19 16:54 12/26/18 15:41 Ondansetron HCl (Zofran ODT) 4 mg Q4H PRN ORAL Nausea & Vomiting 12/07/18 10:00 01/06/19 09:59 12/16/18 15:20 Polyethylene Glycol (Miralax) 17 gm DAILYPRN PRN ORAL Constipation 12/18/18 21:45 12/28/18 17:03 12/24/18 10:17 Allergies: Coded Allergies: No Known Allergies (Verified , 09/12/10) ROS Limited/Unobtainable: No Constitutional: Reports: no symptoms HEENT: Reports: no symptoms Cardiovascular: Reports: no symptoms Respiratory: Reports: no symptoms Gastrointestinal/Abdominal: Reports: no symptoms Genitourinary: Reports: no symptoms Neurologic/Psychiatric: Reports: no symptoms Subjective 78 YO M admitted with chest pain. Now pancytopenia and UTI. Cover for Int Med- Dr Hunter. Objective Last Vital Signs Date Time Temp Pulse Resp B/P (MAP) Pulse Ox O2 Delivery O2 Flow Rate FiO2 12/27/18 16:00 98.7 68 16 123/67 (85) 100 12/27/18 09:55 Room Air 12/23/18 20:39 21 12/22/18 20:31 2.0 Laboratory Tests Test 12/27/18 10:45 12/27/18 12:15 Sodium Level 137 MMOL/L (136-145) Potassium Level 3.8 MMOL/L (3.5-5.1) Chloride Level 97 MMOL/L (98-107) L Carbon Dioxide Level 35 MMOL/L (21-32) H Anion Gap 5 mmol/L (5-15) Blood Urea Nitrogen 18 mg/dL (7-18) Creatinine 0.9 MG/DL (0.55-1.30) Estimat Glomerular Filtration Rate mL/min (>60) Glucose Level 102 MG/DL (74-106) Calcium Level 8.8 MG/DL (8.5-10.1) White Blood Count 7.1 K/UL (4.8-10.8) Red Blood Count 3.35 M/UL (4.70-6.10) L Hemoglobin 8.3 G/DL (14.2-18.0) L Hematocrit 26.1 % (42.0-52.0) L Mean Corpuscular Volume 78 FL (80-99) L Mean Corpuscular Hemoglobin 24.6 PG (27.0-31.0) L Mean Corpuscular Hemoglobin Concent 31.6 G/DL (32.0-36.0) L Red Cell Distribution Width 22.7 % (11.6-14.8) H Platelet Count 140 K/UL (150-450) L Mean Platelet Volume 13.5 FL (6.5-10.1) H Neutrophils (%) (Auto) 26.9 % (45.0-75.0) L Lymphocytes (%) (Auto) 47.2 % (20.0-45.0) H Monocytes (%) (Auto) 14.7 % (1.0-10.0) H Eosinophils (%) (Auto) 4.1 % (0.0-3.0) H Basophils (%) (Auto) 7.1 % (0.0-2.0) H Intake and Output 12/26/18 12/27/18 19:00 07:00 Intake Total 800 ml 400 ml Balance 800 ml 400 ml Intake Oral 800 ml 400 ml # Voids 3 2 # Bowel Movements 2 Objective PHYSICAL EXAMINATION: GENERAL: The patient awake, responsive, no acute distress. HEAD AND NECK: Pupils are equal and reactive to light. Extraocular movements are intact. Neck was supple. No JVD LUNGS: Good air entry. No wheeze or rales. HEART: S1, S2. Distant heart sounds. No murmur or gallops. Pacemaker in left-sided chest wall. ABDOMEN: Soft, nondistended, nontender. EXTREMITIES: No cyanosis, clubbing, edema. Varicose veins, bilateral lower extremities. NEUROLOGIC: Cranial nerves II through XII grossly intact. Motor is 5/5 in all extremities. Gait is intact. RECTAL: Refused and deferred. GENITOURINARY: Refused and deferred. PSYCHIATRIC: Mood and affect is depressed. Assessment/Plan Assessment/Plan ASSESSMENT: 1. Chest pain, possible acute coronary syndrome. 2. Hypertension. 3. Dyslipidemia. 4. Congestive heart failure. 5. Coronary artery disease. 6. Sick sinus syndrome, status pacemaker. 7. UTI. 8. Pancytopenia; S/P transfusion 5 units PRBC total-Severe anemia, Thrombocytopenia and leukopenia-?leukemia? see onc note. PLAN: Admit the patient to telemetry. Discussed case with Dr. Gee from Cardiology Electrophysiology. Await cardiac nuclear stress test-outpatient Dr. Luong, Pulmonary Critical Care. Urine cult=E. Coli. S/P Rocephin. DVT prophylaxis, heparin subcutaneous. Code status, Full Code. The patient is expected to be in the hospital greater than 2 days Discharge paln: [facility] S/P transfusion 2 units PRBC on 11/19/18 See Hematology consult-?acute myelocytic leukemia? Discharge to [facility]-see social work note Nikhil West MD Dec 27, 2018 17:53
[2018-12-27 20:00] VITALS: BP 117/81
[2018-12-27] MEDS: Atorvastatin 20mg tab ORAL SCH (20:56)
[2018-12-28 04:00] VITALS: BP 128/56
[2018-12-28 08:00] VITALS: BP_SYST 101; BP_SYST 117; BP_DIAS 49; BP_DIAS 67
[2018-12-28] MEDS: Carvedilol 12.5mg tab ORAL SCH ×2 (08:36→20:17)
--- NOTE | 2018-12-28 09:25 | General Progress Note ---
Assessment/Plan Problem List: (1) History of CVA (cerebrovascular accident) ICD Codes: Z86.73 - Personal history of transient ischemic attack (TIA), and cerebral infarction without residual deficits SNOMED: 556606129 (2) Cardiomyopathy ICD Codes: I42.9 - Cardiomyopathy, unspecified SNOMED: 00848396 (3) Hypothyroidism ICD Codes: E03.9 - Hypothyroidism, unspecified SNOMED: 52057016 (4) HTN (hypertension) ICD Codes: I10 - Essential (primary) hypertension SNOMED: 95397232 (5) Severe thrombocytopenia ICD Codes: D69.6 - Thrombocytopenia, unspecified SNOMED: 609623738 (6) Anxiety disorder ICD Codes: F41.9 - Anxiety disorder, unspecified SNOMED: 652134607 (7) Severe anemia ICD Codes: D64.9 - Anemia, unspecified SNOMED: 984510590 (8) GERD (gastroesophageal reflux disease) ICD Codes: K21.9 - Gastro-esophageal reflux disease without esophagitis SNOMED: 371375128 (9) Pacemaker ICD Codes: Z95.0 - Presence of cardiac pacemaker SNOMED: 48445391, 869280913, 697934830 Assessment/Plan SUMMARY OF FINDINGS: 1. Gastritis. 2. A 6 cm hiatal hernia. RECOMMENDATIONS: Follow up biopsy results and treat accordingly. >> Mild chronic gastritis. Negative for H. pylori negative negative for dysplasia or malignancy. BM biopsy>> leukemia>> fu oncology monitor H&H, prn transfusions. bowel regime ppi, H2B qhs Zofran as needed fu labs Outpatient hep C treatment dc planning Subjective ROS Limited/Unobtainable: No Allergies: Coded Allergies: No Known Allergies (Verified , 09/12/10) Objective Last 24 Hour Vital Signs Date Time Temp Pulse Resp B/P (MAP) Pulse Ox O2 Delivery O2 Flow Rate FiO2 12/28/18 09:00 Room Air 12/28/18 08:36 60 101/49 12/28/18 08:00 97.4 60 14 101/49 (66) 99 12/28/18 04:00 98.4 64 128/56 (80) 12/27/18 21:00 Room Air 12/27/18 20:42 68 123/67 12/27/18 20:00 98.3 64 18 117/81 (93) 98 12/27/18 16:00 98.7 68 16 123/67 (85) 100 12/27/18 12:00 97.0 63 16 116/57 (76) 97 12/27/18 09:55 Room Air 12/27/18 09:55 95 Room Air Intake and Output 12/27/18 12/28/18 18:59 06:59 Intake Total 600 ml 400 ml Output Total 600 ml Balance 0 ml 400 ml Intake Oral 600 ml 400 ml Output Urine Total 600 ml # Voids 3 Laboratory Tests 12/27/18 10:45: Sodium Level 137, Potassium Level 3.8, Chloride Level 97L, Carbon Dioxide Level 35H, Anion Gap 5, Blood Urea Nitrogen 18, Creatinine 0.9, Estimat Glomerular Filtration Rate , Glucose Level 102, Calcium Level 8.8 12/27/18 12:15: White Blood Count 7.1, Red Blood Count 3.35L, Hemoglobin 8.3L, Hematocrit 26.1L , Mean Corpuscular Volume 78L, Mean Corpuscular Hemoglobin 24.6L, Mean Corpuscular Hemoglobin Concent 31.6L, Red Cell Distribution Width 22.7H, Platelet Count 140L, Mean Platelet Volume 13.5H, Neutrophils (%) (Auto) 26.9L, Lymphocytes (%) (Auto) 47.2H, Monocytes (%) (Auto) 14.7H, Eosinophils (%) (Auto ) 4.1H, Basophils (%) (Auto) 7.1H Height (Feet): 5 Height (Inches): 5.00 Weight (Pounds): 148 General Appearance: no apparent distress EENT: normal ENT inspection Neck: supple Cardiovascular: normal rate Respiratory/Chest: decreased breath sounds Abdomen: normal bowel sounds, non tender, soft Extremities: non-tender Richie Mcguire MD Dec 28, 2018 09:25
--- NOTE | 2018-12-28 10:28 | Cardiac Electrophysiology PN ---
Assessment/Plan Assessment/Plan 1. Atypical chest pain and hx of CABG. Likely due to severe anemia. Ruled out [place]. Hold off on stress test in view of leukemia On Lipitor and Coreg. Off Aspirin and Plavix for anemia and thrombocytopenia 2. Cardiomyopathy. EF now 55%. On Coreg 12.5 mg bid. 3. Status post [facility] [employer] atriobiventricular defibrillator. Interrogated and showed Nl Fx 4. Severe anemia, S/P multiple PRBC and platelet transfusions . 5. Pancytopenia. Off Aspirin and PLavix S/P platelet and PRBC transfusion. S/P BM biopsy 11/29/18 that confirmed Leukemia FU by Dr Stock 6. Placement pending [facility]IEGO RN Subjective Subjective No CP or SOB. In NAD. Awaiting placement Objective Last 24 Hour Vital Signs Date Time Temp Pulse Resp B/P (MAP) Pulse Ox O2 Delivery O2 Flow Rate FiO2 12/28/18 09:00 Room Air 12/28/18 08:36 60 101/49 12/28/18 08:00 97.4 60 14 101/49 (66) 99 12/28/18 04:00 98.4 64 128/56 (80) 12/27/18 21:00 Room Air 12/27/18 20:42 68 123/67 12/27/18 20:00 98.3 64 18 117/81 (93) 98 12/27/18 16:00 98.7 68 16 123/67 (85) 100 12/27/18 12:00 97.0 63 16 116/57 (76) 97 Intake and Output 12/27/18 12/28/18 19:00 07:00 Intake Total 600 ml 400 ml Output Total 600 ml Balance 0 ml 400 ml Intake Oral 600 ml 400 ml Output Urine Total 600 ml # Voids 3 Laboratory Tests Test 12/27/18 10:45 12/27/18 12:15 Sodium Level 137 MMOL/L (136-145) Potassium Level 3.8 MMOL/L (3.5-5.1) Chloride Level 97 MMOL/L (98-107) L Carbon Dioxide Level 35 MMOL/L (21-32) H Anion Gap 5 mmol/L (5-15) Blood Urea Nitrogen 18 mg/dL (7-18) Creatinine 0.9 MG/DL (0.55-1.30) Estimat Glomerular Filtration Rate mL/min (>60) Glucose Level 102 MG/DL (74-106) Calcium Level 8.8 MG/DL (8.5-10.1) White Blood Count 7.1 K/UL (4.8-10.8) Red Blood Count 3.35 M/UL (4.70-6.10) L Hemoglobin 8.3 G/DL (14.2-18.0) L Hematocrit 26.1 % (42.0-52.0) L Mean Corpuscular Volume 78 FL (80-99) L Mean Corpuscular Hemoglobin 24.6 PG (27.0-31.0) L Mean Corpuscular Hemoglobin Concent 31.6 G/DL (32.0-36.0) L Red Cell Distribution Width 22.7 % (11.6-14.8) H Platelet Count 140 K/UL (150-450) L Mean Platelet Volume 13.5 FL (6.5-10.1) H Neutrophils (%) (Auto) 26.9 % (45.0-75.0) L Lymphocytes (%) (Auto) 47.2 % (20.0-45.0) H Monocytes (%) (Auto) 14.7 % (1.0-10.0) H Eosinophils (%) (Auto) 4.1 % (0.0-3.0) H Basophils (%) (Auto) 7.1 % (0.0-2.0) H Objective HEAD AND NECK: No JVD. LUNGS: Coarse rhonchi. CARDIOVASCULAR: Regular S1 and S2 with no gallop or murmur. Sternotomy intact. ICD in left subclavian. ABDOMEN: Soft. EXTREMITIES: 1+ pitting edema. Satinder Gee MD Dec 28, 2018 10:28
[2018-12-28 12:00] VITALS: BP 127/55
--- NOTE | 2018-12-28 12:41 | Internal Med Progress Note ---
Subjective Date of Service: Dec 28, 2018 Physician Name Nikhil West Attending Physician Abdias Hunter MD Current Medications Medications (Trade) Dose Ordered Sig/Scout Route PRN Reason Start Time Stop Time Status Last Admin Dose Admin Atorvastatin Calcium (Lipitor) 40 mg QHS ORAL 12/19/18 21:00 01/18/19 20:59 12/27/18 20:56 Bisacodyl (Dulcolax) 10 mg DAILYPRN PRN RECTAL Constipation 12/18/18 21:45 12/28/18 17:01 Carvedilol (Coreg) 12.5 mg EVERY 12 HOURS ORAL 12/19/18 09:00 01/18/19 08:59 12/27/18 20:42 Clonidine HCl (Catapres Tab) 0.1 mg Q2H PRN ORAL For High Blood Pressure 12/06/18 21:15 01/05/19 21:14 12/07/18 08:25 Docusate Sodium (Colace) 100 mg Q12H PRN ORAL Constipation 12/18/18 21:45 01/17/19 21:29 12/24/18 14:53 Famotidine (Pepcid) 20 mg QHS ORAL 11/30/18 21:00 12/30/18 20:59 12/27/18 20:41 Fentanyl (Duragesic) 1 patch Q72H TDERMAL 12/23/18 18:00 12/30/18 17:59 12/26/18 18:11 Furosemide (Lasix) 20 mg DAILY ORAL 12/19/18 17:45 01/18/19 17:44 12/28/18 08:37 Miscellaneous Medication (fentaNYL Destruction) 1 ea Q72H MISC 12/20/18 17:59 01/19/19 17:58 Morphine Sulfate (Morphine Sulfate) 2 mg Q4H PRN IM For Pain 12/23/18 06:15 12/30/18 06:14 12/27/18 20:40 Naloxone HCl (Narcan) 0.1 mg PRN IV Sedation scale 3 or 4 12/08/18 15:15 01/07/19 15:14 Nitroglycerin (Ntg) 0.4 mg Q5M PRN SL Prn Chest Pain 12/25/18 16:55 01/24/19 16:54 12/26/18 15:41 Ondansetron HCl (Zofran ODT) 4 mg Q4H PRN ORAL Nausea & Vomiting 12/07/18 10:00 01/06/19 09:59 12/16/18 15:20 Polyethylene Glycol (Miralax) 17 gm DAILYPRN PRN ORAL Constipation 12/18/18 21:45 12/28/18 17:03 12/24/18 10:17 Allergies: Coded Allergies: No Known Allergies (Verified , 09/12/10) ROS Limited/Unobtainable: No Constitutional: Reports: no symptoms HEENT: Reports: no symptoms Cardiovascular: Reports: no symptoms Respiratory: Reports: no symptoms Gastrointestinal/Abdominal: Reports: no symptoms Genitourinary: Reports: no symptoms Neurologic/Psychiatric: Reports: no symptoms Subjective 78 YO M admitted with chest pain. Now pancytopenia and UTI. Cover for [facility] Med- Dr Hunter. Objective Last Vital Signs Date Time Temp Pulse Resp B/P (MAP) Pulse Ox O2 Delivery O2 Flow Rate FiO2 12/28/18 12:00 98.3 60 14 127/55 (79) 99 12/28/18 09:00 Room Air 12/23/18 20:39 21 12/22/18 20:31 2.0 Intake and Output 12/27/18 12/28/18 19:00 07:00 Intake Total 600 ml 400 ml Output Total 600 ml Balance 0 ml 400 ml Intake Oral 600 ml 400 ml Output Urine Total 600 ml # Voids 3 Objective PHYSICAL EXAMINATION: GENERAL: The patient awake, responsive, no acute distress. HEAD AND NECK: Pupils are equal and reactive to light. Extraocular movements are intact. Neck was supple. No JVD LUNGS: Good air entry. No wheeze or rales. HEART: S1, S2. Distant heart sounds. No murmur or gallops. Pacemaker in left-sided chest wall. ABDOMEN: Soft, nondistended, nontender. EXTREMITIES: No cyanosis, clubbing, edema. Varicose veins, bilateral lower extremities. NEUROLOGIC: Cranial nerves II through XII grossly intact. Motor is 5/5 in all extremities. Gait is intact. RECTAL: Refused and deferred. GENITOURINARY: Refused and deferred. PSYCHIATRIC: Mood and affect is depressed. Assessment/Plan Assessment/Plan ASSESSMENT: 1. Chest pain, possible acute coronary syndrome. 2. Hypertension. 3. Dyslipidemia. 4. Congestive heart failure. 5. Coronary artery disease. 6. Sick sinus syndrome, status pacemaker. 7. UTI. 8. Pancytopenia; S/P transfusion 5 units PRBC total-Severe anemia, Thrombocytopenia and leukopenia-?leukemia? see onc note. PLAN: Admit the patient to telemetry. Discussed case with Dr. Gee from Cardiology Electrophysiology. Await cardiac nuclear stress test-outpatient Dr. Luong, Pulmonary Critical Care. Urine cult=E. Coli. S/P Rocephin. DVT prophylaxis, heparin subcutaneous. Code status, Full Code. The patient is expected to be in the hospital greater than 2 days Discharge paln: [facility] S/P transfusion 2 units PRBC on 11/19/18 See Hematology consult-?acute myelocytic leukemia? Discharge to [facility]-see social work note Nikhil West MD Dec 28, 2018 12:41
[2018-12-28] MEDS: Morphine Sulfate 2mg/ml Inj(IV/IM USE ONLY) IM PRN ×3 (14:10→22:07)
--- NOTE | 2018-12-28 14:26 | Pulmonology Progress Note ---
Assessment/Plan Problems: (1) Myeloblastic leukemia (2) Severe thrombocytopenia (3) ACS (acute coronary syndrome) (4) Cardiomyopathy (5) HTN (hypertension) (6) Pacemaker (7) Hypothyroidism (8) CAD (coronary artery disease) Assessment/Plan all reviewed doing better, still nauseous on fentNAYL PACH, pain better controlled dc all oral analgesics and try Fentanyl Patch doing better early leukemia check electrolytes no malignancy in bone marrow symptomatic treatment dc planning Subjective ROS Limited/Unobtainable: No Constitutional: Reports: no symptoms HEENT: Repors: no symptoms Allergies: Coded Allergies: No Known Allergies (Verified , 09/12/10) Objective Last 24 Hour Vital Signs Date Time Temp Pulse Resp B/P (MAP) Pulse Ox O2 Delivery O2 Flow Rate FiO2 12/28/18 12:00 98.3 60 14 127/55 (79) 99 12/28/18 09:00 Room Air 12/28/18 08:36 60 101/49 12/28/18 08:00 97.4 60 14 101/49 (66) 99 12/28/18 04:00 98.4 64 128/56 (80) 12/27/18 21:00 Room Air 12/27/18 20:42 68 123/67 12/27/18 20:00 98.3 64 18 117/81 (93) 98 12/27/18 16:00 98.7 68 16 123/67 (85) 100 Intake and Output 12/27/18 12/28/18 19:00 07:00 Intake Total 600 ml 400 ml Output Total 600 ml Balance 0 ml 400 ml Intake Oral 600 ml 400 ml Output Urine Total 600 ml # Voids 3 Objective General Appearance: cachetic Lines, tubes and drains: peripheral HEENT: normocephalic, atraumatic Neck: non-tender, normal alignment Respiratory/Chest: chest wall non-tender, lungs clear Breasts: no masses Cardiovascular/Chest: normal peripheral pulses, normal rate Abdomen: normal bowel sounds, non tender Genitourinary/Rectal: normal genital exam Extremities: normal range of motion Skin Exam: normal pigmentation 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 Current Medications Medications (Trade) Dose Ordered Sig/Scout Route PRN Reason Start Time Stop Time Status Last Admin Dose Admin Atorvastatin Calcium (Lipitor) 40 mg QHS ORAL 12/19/18 21:00 01/18/19 20:59 12/27/18 20:56 Bisacodyl (Dulcolax) 10 mg DAILYPRN PRN RECTAL Constipation 12/18/18 21:45 12/28/18 17:01 Carvedilol (Coreg) 12.5 mg EVERY 12 HOURS ORAL 12/19/18 09:00 01/18/19 08:59 12/27/18 20:42 Clonidine HCl (Catapres Tab) 0.1 mg Q2H PRN ORAL For High Blood Pressure 12/06/18 21:15 01/05/19 21:14 12/07/18 08:25 Docusate Sodium (Colace) 100 mg Q12H PRN ORAL Constipation 12/18/18 21:45 01/17/19 21:29 12/24/18 14:53 Famotidine (Pepcid) 20 mg QHS ORAL 11/30/18 21:00 12/30/18 20:59 12/27/18 20:41 Fentanyl (Duragesic) 1 patch Q72H TDERMAL 12/23/18 18:00 12/30/18 17:59 12/26/18 18:11 Furosemide (Lasix) 20 mg DAILY ORAL 12/19/18 17:45 01/18/19 17:44 12/28/18 08:37 Miscellaneous Medication (fentaNYL Destruction) 1 ea Q72H MISC 12/20/18 17:59 01/19/19 17:58 Morphine Sulfate (Morphine Sulfate) 2 mg Q4H PRN IM For Pain 12/23/18 06:15 12/30/18 06:14 12/28/18 14:10 Naloxone HCl (Narcan) 0.1 mg PRN IV Sedation scale 3 or 4 12/08/18 15:15 01/07/19 15:14 Nitroglycerin (Ntg) 0.4 mg Q5M PRN SL Prn Chest Pain 12/25/18 16:55 01/24/19 16:54 12/26/18 15:41 Ondansetron HCl (Zofran ODT) 4 mg Q4H PRN ORAL Nausea & Vomiting 12/07/18 10:00 01/06/19 09:59 12/16/18 15:20 Polyethylene Glycol (Miralax) 17 gm DAILYPRN PRN ORAL Constipation 12/18/18 21:45 12/28/18 17:03 12/24/18 10:17 Chpee Luong MD Dec 28, 2018 14:26
[2018-12-28 15:54] VITALS: BP 129/62
[2018-12-28 20:00] VITALS: BP 136/60
--- NOTE | 2018-12-28 20:02 | General Progress Note ---
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 --> Hep panel and HIV negative, hep C++++ --> US abd to evaluate for cirrhosis and hsm reviewed --> Peripheral smear ordered to evaluate for blasts /schistocytes is wnl --> abx and other meds have been reviewed --> ok for ppx if plt >50k w/ either heparin or lovenox --> Transfuse if Plt < 20k and fever, or if Plt < 10k without fever --->Plt trend 70-->65-->44-->86-->122-->88-->100k-->140k # Anemia of chronic disease, some minor hemolysis is noted --> Anemia workup has been reviewed,bertha test is negative, retic reviewed --> Hgb goal >7. Transfuse prn. --> Epogen or iron at this time is not particularly indicated --> Medications have been reviewed --> Hgb trend: 9-->8.7-->7.9-->7-->7.6-->7.4->8.1-->7.7-->6.5-->8.3 --> transfuse 1 unit prbc on 12/25 # Reticulocytosis with elevated bilirubin that is indirect --> reviewed direct and indirect bilis again, trend could have liver disease --> liver US shows no significant cirrhosis --> evaluate as needed with gi team, recs apprecaited #. Chest pain, possible acute coronary syndrome. --> cards recs appreciated as well as pulm --> stress test prn # Hypertension. sbp goal <140 -- > as per cards # Dyslipidemia. # Chf # Coronary artery disease. # Sick sinus syndrome, status pacemaker. # Acute E. coli UTI s/p abx # Hep C+++ needs op management The timing of this note does not necessarily reflect the time of the patient was seen. Greatly appreciate consultation! Subjective Constitutional: Denies: no symptoms, chills, diaphoresis, fever, malaise, weakness, other Cardiovascular: Denies: no symptoms, chest pain, edema, irregular heart rate, lightheadedness, palpitations, syncope, other Respiratory: Denies: no symptoms, cough, orthopnea, shortness of breath, SOB with excertion, SOB at rest, sputum, stridor, wheezing, other Genitourinary: Denies: no symptoms, burning, discharge, frequency, flank pain, hematuria, incontinence, pain, urgency, other Neurologic/Psychiatric: Denies: no symptoms, anxiety, depressed, emotional problems, headache, numbness, paresthesia, pre-existing deficit, seizure, tingling, tremors, weakness, other Endocrine: Denies: no symptoms, excessive sweating, flushing, intolerance to cold, intolerance to heat, increased hunger, increased thirst, increased urine, unexplained weight gain, unexplained weight loss, other Hematologic/Lymphatic: Denies: no symptoms, anemia, easy bleeding, easy bruising, other Allergies: Coded Allergies: No Known Allergies (Verified , 09/12/10) Subjective 11/27: no events to report, no f/c 11/28: seen by bedside, plt 65, plan for EGD and bone marrow biopsy tomorrow 11/29: BM biopsy today, no acute distress. 11/30: Had BM biopsy yesterday and now in reverse isolation. hgb 7.5, will transfuse as needed. 12/01: seen by bedside, plt remains low, awaiting bone marrow biopsy results. 12/02: No acute distress, no chest pain, no shortness of breath, wbc 2.7, hgb 7.3 , plt 50, will transfuse as needed. S/P BM biopsy 11/29/18, Results pending 12/04: bone marrow biopsy completed, and show myeloblasts, c/w mds/leukemia, requires close surveillance 12/05: hgb 6.9, Had blood transfusion today, plt up trending, no events 12/06: Seen by bedside, overall improved, still has complaint of chest pain, plt trending up 12/07: Given 1 unit prbc, continues to c/o chest pain, seen by cards 12/08: seen by bedside, complains of pain, plt 106, no events 12/09: awake, comfortable, plt trending down at 69, no events 12/11: awake, comfortable, on NC, plt remains low at 70. 12/12: awake, comfortable, plt 65, no events 12/13: seen by bedside, awake , comfortable, pending labs. 12/14: awake, comfortable, hgb 7.9, monitor, will transfuse as needed, plt trending down at 44, 12/15: seen by bedside, awake, comfortable, hgb 7, will transfuse as needed, plt 82. 12/16: awake comfortable, no events, hgb trending up 12/18: seen by bedside, alert, oriented, no acute distress 12/19: no events noted, no fevers or chills, cbc has been reviewed, had blasts on smear this wknd 12/20: seen by bedside, awake, comfortable, hgb 7.4, will transfuse as needed. 12/21: No overnight events reported, comfortable, hgb 8.1 12/22: no events to report, remains nausous, the platelet count has improved on its own 12/23: awaiting placement to snf at this time, following with cards, pulm 12/24: on 2l nc, received morphine today by rn, complaining of pain 12/25: no events today, no f/c, labs reviewed 12/26: no events report, will get one unit prbc today, has been ordered 12/27: hgb stable/improved but is after transfusion, no events otherwise no fevers 12/28: no events, feeling overall better Objective Last 24 Hour Vital Signs Date Time Temp Pulse Resp B/P (MAP) Pulse Ox O2 Delivery O2 Flow Rate FiO2 12/28/18 15:54 98.4 68 18 129/62 (84) 100 12/28/18 12:00 98.3 60 14 127/55 (79) 99 12/28/18 09:00 Room Air 12/28/18 08:36 60 101/49 12/28/18 08:00 97.4 60 14 101/49 (66) 99 12/28/18 04:00 98.4 64 128/56 (80) 12/27/18 21:00 Room Air 12/27/18 20:42 68 123/67 Intake and Output 12/27/18 12/28/18 19:00 07:00 Intake Total 600 ml 400 ml Output Total 600 ml Balance 0 ml 400 ml Intake Oral 600 ml 400 ml Output Urine Total 600 ml # Voids 3 Height (Feet): 5 Height (Inches): 5.00 Weight (Pounds): 148 Objective General: well appearing, nad, alert Head: normocephalic, atraumatic Eyes: b/l eye PERRL, bilateral eye EOMI ENT: hearing grossly normal, normal pharynx Neck: full range of motion, supple, no meningismus Respiratory: chest non-tender, lungs clear, normal BSs, NC++ CV: regular rate, rhythm, no murmur GI: normal bowel sounds, non tender, no mass MSK: back normal, normal range of motion Psychiatric: mood/affect normal Skin: warm/dry Jose Alberto España MD Dec 28, 2018 20:02
[2018-12-28] MEDS: Atorvastatin 20mg tab ORAL SCH (20:16)
[2018-12-29] VITALS: BP 109/53
[2018-12-29] MEDS: Morphine Sulfate 2mg/ml Inj(IV/IM USE ONLY) IM PRN ×4 (02:08→19:50)
[2018-12-29 04:00] VITALS: BP 107/61
[2018-12-29 07:15] LABS: ANION GAP 6 mmol/L (5-15); BLOOD UREA NITROGEN 20 mg/dL (7-18); CALCIUM 8.7 MG/DL (8.5-10.1); CARBON DIOXIDE 31 MMOL/L (21-32); CHLORIDE 99 MMOL/L (98-107); CREATININE 0.8 MG/DL (0.55-1.30); POTASSIUM 3.7 MMOL/L (3.5-5.1); SODIUM 136 MMOL/L (136-145)
[2018-12-29 07:16] LABS: HEMATOCRIT 23.6 % (42.0-52.0); HEMOGLOBIN 7.7 G/DL (14.2-18.0); MEAN CORPUSCULAR VOLUME 77 FL (80-99); PLATELET COUNT 154 K/UL (150-450); RED BLOOD COUNT 3.05 M/UL (4.70-6.10); RED CELL DISTRIBUTION WIDTH 22.8 % (11.6-14.8); WHITE BLOOD COUNT 6.1 K/UL (4.8-10.8)
[2018-12-29] MEDS: Miralax 17gm pkt ORAL PRN (07:58)
[2018-12-29] MEDS: Docusate 100mg cap ORAL PRN (07:58)
[2018-12-29 08:00] VITALS: BP 107/47
[2018-12-29] MEDS: Carvedilol 12.5mg tab ORAL SCH ×2 (09:00→20:30)
--- NOTE | 2018-12-29 11:03 | Cardiac Electrophysiology PN ---
Assessment/Plan Assessment/Plan 1. Atypical chest pain and hx of CABG. Likely due to severe anemia. Ruled out MT. Hold off on stress test in view of leukemia On Lipitor and Coreg. Off Aspirin and Plavix for anemia and thrombocytopenia 2. Cardiomyopathy. EF now 55%. On Coreg 12.5 mg bid and Lasix 20 daily [address] [facility] atriobiventricular defibrillator. Interrogated and showed Nl Fx 4. Severe anemia, S/P multiple PRBC and platelet transfusions . 5. Pancytopenia. Off Aspirin and PLavix S/P platelet and PRBC transfusion. S/P BM biopsy 11/29/18 that confirmed Leukemia FU by Dr Stock 6. Placement pending DW RN Subjective Subjective No CP or SOB. Has constipation Objective Last 24 Hour Vital Signs Date Time Temp Pulse Resp B/P (MAP) Pulse Ox O2 Delivery O2 Flow Rate FiO2 12/29/18 09:00 Room Air 12/29/18 09:00 63 107/61 12/29/18 08:00 97.5 62 20 107/47 (67) 100 12/29/18 04:00 98.9 63 20 107/61 (76) 99 12/29/18 00:00 97.4 64 16 109/53 (71) 100 12/28/18 21:00 Room Air 12/28/18 20:17 66 134/58 12/28/18 20:00 98.4 65 20 136/60 (85) 100 12/28/18 15:54 98.4 68 18 129/62 (84) 100 12/28/18 12:00 98.3 60 14 127/55 (79) 99 Intake and Output 12/28/18 12/29/18 18:59 06:59 Intake Total 240 ml 400 ml Balance 240 ml 400 ml Intake Oral 240 ml 400 ml # Voids 3 4 Laboratory Tests Test 12/29/18 06:20 White Blood Count 6.1 K/UL (4.8-10.8) Red Blood Count 3.05 M/UL (4.70-6.10) L Hemoglobin 7.7 G/DL (14.2-18.0) L Hematocrit 23.6 % (42.0-52.0) L Mean Corpuscular Volume 77 FL (80-99) L Mean Corpuscular Hemoglobin 25.1 PG (27.0-31.0) L Mean Corpuscular Hemoglobin Concent 32.4 G/DL (32.0-36.0) Red Cell Distribution Width 22.8 % (11.6-14.8) H Platelet Count 154 K/UL (150-450) Mean Platelet Volume 15.4 FL (6.5-10.1) H Neutrophils (%) (Auto) % (45.0-75.0) Lymphocytes (%) (Auto) % (20.0-45.0) Monocytes (%) (Auto) % (1.0-10.0) Eosinophils (%) (Auto) % (0.0-3.0) Basophils (%) (Auto) % (0.0-2.0) Differential Total Cells Counted 100 Neutrophils % (Manual) 17 % (45-75) L Lymphocytes % (Manual) 53 % (20-45) H Monocytes % (Manual) 17 % (1-10) H Eosinophils % (Manual) 7 % (0-3) H Basophils % (Manual) 0 % (0-2) Band Neutrophils 6 % (0-8) Reactive Lymphocytes Occasional Platelet Estimate Adequate Platelet Morphology Giant Platelets 1+ Hypochromasia 2+ Anisocytosis 3+ Microcytosis 1+ Acanthocytes 1+ Schistocytes Occasional Sodium Level 136 MMOL/L (136-145) Potassium Level 3.7 MMOL/L (3.5-5.1) Chloride Level 99 MMOL/L (98-107) Carbon Dioxide Level 31 MMOL/L (21-32) Anion Gap 6 mmol/L (5-15) Blood Urea Nitrogen 20 mg/dL (7-18) H Creatinine 0.8 MG/DL (0.55-1.30) Estimat Glomerular Filtration Rate mL/min (>60) Glucose Level 92 MG/DL (74-106) Calcium Level 8.7 MG/DL (8.5-10.1) Objective HEAD AND NECK: No JVD. LUNGS: Coarse rhonchi. CARDIOVASCULAR: Regular S1 and S2 with no gallop or murmur. Sternotomy intact. ICD in left subclavian. ABDOMEN: Soft. EXTREMITIES: 1+ pitting edema. Satinder Gee MD Dec 29, 2018 11:03
[2018-12-29 12:00] VITALS: BP 133/56
--- NOTE | 2018-12-29 12:29 | General Progress Note ---
Assessment/Plan Problem List: (1) History of CVA (cerebrovascular accident) ICD Codes: Z86.73 - Personal history of transient ischemic attack (TIA), and cerebral infarction without residual deficits SNOMED: 463463696 (2) Cardiomyopathy ICD Codes: I42.9 - Cardiomyopathy, unspecified SNOMED: 84992600 (3) Hypothyroidism ICD Codes: E03.9 - Hypothyroidism, unspecified SNOMED: 71168399 (4) HTN (hypertension) ICD Codes: I10 - Essential (primary) hypertension SNOMED: 99547310 (5) Severe thrombocytopenia ICD Codes: D69.6 - Thrombocytopenia, unspecified SNOMED: 025726903 (6) Anxiety disorder ICD Codes: F41.9 - Anxiety disorder, unspecified SNOMED: 128899619 (7) Severe anemia ICD Codes: D64.9 - Anemia, unspecified SNOMED: 215717424 (8) GERD (gastroesophageal reflux disease) ICD Codes: K21.9 - Gastro-esophageal reflux disease without esophagitis SNOMED: 537699690 (9) Pacemaker ICD Codes: Z95.0 - Presence of cardiac pacemaker SNOMED: 30348640, 452342312, 420231598 Assessment/Plan SUMMARY OF FINDINGS: 1. Gastritis. 2. A 6 cm hiatal hernia. RECOMMENDATIONS: Follow up biopsy results and treat accordingly. >> Mild chronic gastritis. Negative for H. pylori negative negative for dysplasia or malignancy. BM biopsy>> leukemia>> fu oncology monitor H&H, prn transfusions. bowel regime ppi, H2B qhs Zofran as needed fu labs Outpatient hep C treatment dc planning Subjective ROS Limited/Unobtainable: No Allergies: Coded Allergies: No Known Allergies (Verified , 09/12/10) Objective Last 24 Hour Vital Signs Date Time Temp Pulse Resp B/P (MAP) Pulse Ox O2 Delivery O2 Flow Rate FiO2 12/29/18 09:00 Room Air 12/29/18 09:00 63 107/61 12/29/18 08:00 97.5 62 20 107/47 (67) 100 12/29/18 04:00 98.9 63 20 107/61 (76) 99 12/29/18 00:00 97.4 64 16 109/53 (71) 100 12/28/18 21:00 Room Air 12/28/18 20:17 66 134/58 12/28/18 20:00 98.4 65 20 136/60 (85) 100 12/28/18 15:54 98.4 68 18 129/62 (84) 100 Intake and Output 12/28/18 12/29/18 18:59 06:59 Intake Total 240 ml 400 ml Balance 240 ml 400 ml Intake Oral 240 ml 400 ml # Voids 3 4 Laboratory Tests 12/29/18 06:20: White Blood Count 6.1, Red Blood Count 3.05L, Hemoglobin 7.7L, Hematocrit 23.6L , Mean Corpuscular Volume 77L, Mean Corpuscular Hemoglobin 25.1L, Mean Corpuscular Hemoglobin Concent 32.4, Red Cell Distribution Width 22.8H, Platelet Count 154, Mean Platelet Volume 15.4H, Neutrophils (%) (Auto) , Lymphocytes (%) (Auto) , Monocytes (%) (Auto) , Eosinophils (%) (Auto) , Basophils (%) (Auto) , Differential Total Cells Counted 100, Neutrophils % ( Manual) 17L, Lymphocytes % (Manual) 53H, Monocytes % (Manual) 17H, Eosinophils % (Manual) 7H, Basophils % (Manual) 0, Band Neutrophils 6, Reactive Lymphocytes Occasional, Platelet Estimate Adequate, Platelet Morphology , Giant Platelets 1+ , Hypochromasia 2+, Anisocytosis 3+, Microcytosis 1+, Acanthocytes 1+, Schistocytes Occasional, Sodium Level 136, Potassium Level 3.7, Chloride Level 99, Carbon Dioxide Level 31, Anion Gap 6, Blood Urea Nitrogen 20H, Creatinine 0.8, Estimat Glomerular Filtration Rate , Glucose Level 92, Calcium Level 8.7 Height (Feet): 5 Height (Inches): 5.00 Weight (Pounds): 147 General Appearance: no apparent distress EENT: normal ENT inspection Neck: supple Cardiovascular: normal rate Respiratory/Chest: decreased breath sounds Abdomen: normal bowel sounds, non tender, soft Extremities: non-tender Richie Mcguire MD Dec 29, 2018 12:29
--- NOTE | 2018-12-29 12:48 | Pulmonology Progress Note ---
Assessment/Plan Problems: (1) Myeloblastic leukemia (2) Severe thrombocytopenia (3) ACS (acute coronary syndrome) (4) Cardiomyopathy (5) HTN (hypertension) (6) Pacemaker (7) Hypothyroidism (8) CAD (coronary artery disease) Assessment/Plan all reviewed doing better, still nauseous on fentNAYL PACH, pain better controlled dc all oral analgesics and try Fentanyl Patch doing better early leukemia check electrolytes no malignancy in bone marrow symptomatic treatment dc planning Subjective ROS Limited/Unobtainable: No Allergies: Coded Allergies: No Known Allergies (Verified , 09/12/10) Objective Last 24 Hour Vital Signs Date Time Temp Pulse Resp B/P (MAP) Pulse Ox O2 Delivery O2 Flow Rate FiO2 12/29/18 09:00 Room Air 12/29/18 09:00 63 107/61 12/29/18 08:00 97.5 62 20 107/47 (67) 100 12/29/18 04:00 98.9 63 20 107/61 (76) 99 12/29/18 00:00 97.4 64 16 109/53 (71) 100 12/28/18 21:00 Room Air 12/28/18 20:17 66 134/58 12/28/18 20:00 98.4 65 20 136/60 (85) 100 12/28/18 15:54 98.4 68 18 129/62 (84) 100 Intake and Output 12/28/18 12/29/18 18:59 06:59 Intake Total 240 ml 400 ml Balance 240 ml 400 ml Intake Oral 240 ml 400 ml # Voids 3 4 Objective General Appearance: cachetic Lines, tubes and drains: peripheral HEENT: normocephalic, atraumatic Neck: non-tender, normal alignment Respiratory/Chest: chest wall non-tender, lungs clear Breasts: no masses Cardiovascular/Chest: normal peripheral pulses, normal rate Abdomen: normal bowel sounds, non tender Genitourinary/Rectal: normal genital exam Extremities: normal range of motion Skin Exam: normal pigmentation Neurologic: mri assistant II-XII grossly normal Laboratory Tests 12/29/18 06:20: White Blood Count 6.1, Red Blood Count 3.05L, Hemoglobin 7.7L, Hematocrit 23.6L , Mean Corpuscular Volume 77L, Mean Corpuscular Hemoglobin 25.1L, Mean Corpuscular Hemoglobin Concent 32.4, Red Cell Distribution Width 22.8H, Platelet Count 154, Mean Platelet Volume 15.4H, Neutrophils (%) (Auto) , Lymphocytes (%) (Auto) , Monocytes (%) (Auto) , Eosinophils (%) (Auto) , Basophils (%) (Auto) , Differential Total Cells Counted 100, Neutrophils % ( Manual) 17L, Lymphocytes % (Manual) 53H, Monocytes % (Manual) 17H, Eosinophils % (Manual) 7H, Basophils % (Manual) 0, Band Neutrophils 6, Reactive Lymphocytes Occasional, Platelet Estimate Adequate, Platelet Morphology , Giant Platelets 1+ , Hypochromasia 2+, Anisocytosis 3+, Microcytosis 1+, Acanthocytes 1+, Schistocytes Occasional, Sodium Level 136, Potassium Level 3.7, Chloride Level 99, Carbon Dioxide Level 31, Anion Gap 6, Blood Urea Nitrogen 20H, Creatinine 0.8, Estimat Glomerular Filtration Rate , Glucose Level 92, Calcium Level 8.7 Current Medications Medications (Trade) Dose Ordered Sig/Scout Route PRN Reason Start Time Stop Time Status Last Admin Dose Admin Atorvastatin Calcium (Lipitor) 40 mg QHS ORAL 12/19/18 21:00 01/18/19 20:59 12/28/18 20:16 Carvedilol (Coreg) 12.5 mg EVERY 12 HOURS ORAL 12/19/18 09:00 01/18/19 08:59 12/28/18 20:17 Clonidine HCl (Catapres Tab) 0.1 mg Q2H PRN ORAL For High Blood Pressure 12/06/18 21:15 01/05/19 21:14 12/07/18 08:25 Docusate Sodium (Colace) 100 mg Q12H PRN ORAL Constipation 12/18/18 21:45 01/17/19 21:29 12/29/18 07:58 Famotidine (Pepcid) 20 mg QHS ORAL 11/30/18 21:00 12/30/18 20:59 12/28/18 20:16 Fentanyl (Duragesic) 1 patch Q72H TDERMAL 12/23/18 18:00 12/30/18 17:59 12/26/18 18:11 Furosemide (Lasix) 20 mg DAILY ORAL 12/19/18 17:45 01/18/19 17:44 12/29/18 07:58 Miscellaneous Medication (fentaNYL Destruction) 1 ea Q72H MISC 12/20/18 17:59 01/19/19 17:58 Morphine Sulfate (Morphine Sulfate) 2 mg Q4H PRN IM For Pain 12/23/18 06:15 12/30/18 06:14 12/29/18 11:24 Naloxone HCl (Narcan) 0.1 mg PRN IV Sedation scale 3 or 4 12/08/18 15:15 01/07/19 15:14 Nitroglycerin (Ntg) 0.4 mg Q5M PRN SL Prn Chest Pain 12/25/18 16:55 01/24/19 16:54 12/26/18 15:41 Ondansetron HCl (Zofran ODT) 4 mg Q4H PRN ORAL Nausea & Vomiting 12/07/18 10:00 01/06/19 09:59 12/16/18 15:20 Polyethylene Glycol (Miralax) 17 gm DAILYPRN PRN ORAL Constipation 12/28/18 19:00 01/27/19 18:59 12/29/18 07:58 Chepe Luong MD Dec 29, 2018 12:48
[2018-12-29 16:00] VITALS: BP 122/56
--- NOTE | 2018-12-29 16:21 | General Progress Note ---
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 --> Hep panel and HIV negative, hep C++++ --> US abd to evaluate for cirrhosis and hsm reviewed --> Peripheral smear ordered to evaluate for blasts /schistocytes is wnl --> abx and other meds have been reviewed --> ok for ppx if plt >50k w/ either heparin or lovenox --> Transfuse if Plt < 20k and fever, or if Plt < 10k without fever --->Plt trend 70-->65-->44-->86-->122-->88-->100k-->140k-->154k # Anemia of chronic disease, some minor hemolysis is noted --> Anemia workup has been reviewed,bertha test is negative, retic reviewed --> Hgb goal >7. Transfuse prn. --> Epogen or iron at this time is not particularly indicated --> Medications have been reviewed --> Hgb trend: 9-->8.7-->7.9-->7-->7.6-->7.4->8.1-->7.7-->6.5-->8.3-->7.7 --> transfuse 1 unit prbc on 12/25 # Reticulocytosis with elevated bilirubin that is indirect --> reviewed direct and indirect bilis again, trend could have liver disease --> liver US shows no significant cirrhosis --> evaluate as needed with gi team, recs apprecaited #. Chest pain, possible acute coronary syndrome. --> cards recs appreciated as well as pulm --> stress test prn # Hypertension. sbp goal <140 -- > as per cards recs # Dyslipidemia. # Chf # Coronary artery disease. # Sick sinus syndrome, status pacemaker. # Acute E. coli UTI s/p abx # Hep C+++ needs op management The timing of this note does not necessarily reflect the time of the patient was seen. Greatly appreciate consultation! Subjective Cardiovascular: Denies: no symptoms, chest pain, edema, irregular heart rate, lightheadedness, palpitations, syncope, other Respiratory: Denies: no symptoms, cough, orthopnea, shortness of breath, SOB with excertion, SOB at rest, sputum, stridor, wheezing, other Genitourinary: Denies: no symptoms, burning, discharge, frequency, flank pain, hematuria, incontinence, pain, urgency, other Neurologic/Psychiatric: Denies: no symptoms, anxiety, depressed, emotional problems, headache, numbness, paresthesia, pre-existing deficit, seizure, tingling, tremors, weakness, other Endocrine: Denies: no symptoms, excessive sweating, flushing, intolerance to cold, intolerance to heat, increased hunger, increased thirst, increased urine, unexplained weight gain, unexplained weight loss, other Allergies: Coded Allergies: No Known Allergies (Verified , 09/12/10) Subjective 11/27: no events to report, no f/c 11/28: seen by bedside, plt 65, plan for EGD and bone marrow biopsy tomorrow 11/29: BM biopsy today, no acute distress. 11/30: Had BM biopsy yesterday and now in reverse isolation. hgb 7.5, will transfuse as needed. 12/01: seen by bedside, plt remains low, awaiting bone marrow biopsy results. 12/02: No acute distress, no chest pain, no shortness of breath, wbc 2.7, hgb 7.3 , plt 50, will transfuse as needed. S/P BM biopsy 11/29/18, Results pending 12/04: bone marrow biopsy completed, and show myeloblasts, c/w mds/leukemia, requires close surveillance 12/05: hgb 6.9, Had blood transfusion today, plt up trending, no events 12/06: Seen by bedside, overall improved, still has complaint of chest pain, plt trending up 12/07: Given 1 unit prbc, continues to c/o chest pain, seen by cards 12/08: seen by bedside, complains of pain, plt 106, no events 12/09: awake, comfortable, plt trending down at 69, no events 12/11: awake, comfortable, on NC, plt remains low at 70. 12/12: awake, comfortable, plt 65, no events 12/13: seen by bedside, awake , comfortable, pending labs. 12/14: awake, comfortable, hgb 7.9, monitor, will transfuse as needed, plt trending down at 44, 12/15: seen by bedside, awake, comfortable, hgb 7, will transfuse as needed, plt 82. 12/16: awake comfortable, no events, hgb trending up 12/18: seen by bedside, alert, oriented, no acute distress 12/19: no events noted, no fevers or chills, cbc has been reviewed, had blasts on smear this wknd 12/20: seen by bedside, awake, comfortable, hgb 7.4, will transfuse as needed. 12/21: No overnight events reported, comfortable, hgb 8.1 12/22: no events to report, remains nausous, the platelet count has improved on its own 12/23: awaiting placement to snf at this time, following with cards, pulm 12/24: on 2l nc, received morphine today by rn, complaining of pain 12/25: no events today, no f/c, labs reviewed 12/26: no events report, will get one unit prbc today, has been ordered 12/27: hgb stable/improved but is after transfusion, no events otherwise no fevers 12/28: no events, feeling overall better 12/29: this am comfortable and sleeping, no events, cbc reviewed, no issues noted Objective Last 24 Hour Vital Signs Date Time Temp Pulse Resp B/P (MAP) Pulse Ox O2 Delivery O2 Flow Rate FiO2 12/29/18 15:43 99 Nasal Cannula 2.0 12/29/18 15:42 Nasal Cannula 2.0 12/29/18 12:00 98.0 65 20 133/56 (81) 100 12/29/18 09:00 Room Air 12/29/18 09:00 63 107/61 12/29/18 08:00 97.5 62 20 107/47 (67) 100 12/29/18 04:00 98.9 63 20 107/61 (76) 99 12/29/18 00:00 97.4 64 16 109/53 (71) 100 12/28/18 21:00 Room Air 12/28/18 20:17 66 134/58 12/28/18 20:00 98.4 65 20 136/60 (85) 100 Intake and Output 12/28/18 12/29/18 19:00 07:00 Intake Total 240 ml 400 ml Balance 240 ml 400 ml Intake Oral 240 ml 400 ml # Voids 3 4 Laboratory Tests 12/29/18 06:20: White Blood Count 6.1, Red Blood Count 3.05L, Hemoglobin 7.7L, Hematocrit 23.6L , Mean Corpuscular Volume 77L, Mean Corpuscular Hemoglobin 25.1L, Mean Corpuscular Hemoglobin Concent 32.4, Red Cell Distribution Width 22.8H, Platelet Count 154, Mean Platelet Volume 15.4H, Neutrophils (%) (Auto) , Lymphocytes (%) (Auto) , Monocytes (%) (Auto) , Eosinophils (%) (Auto) , Basophils (%) (Auto) , Differential Total Cells Counted 100, Neutrophils % ( Manual) 17L, Lymphocytes % (Manual) 53H, Monocytes % (Manual) 17H, Eosinophils % (Manual) 7H, Basophils % (Manual) 0, Band Neutrophils 6, Reactive Lymphocytes Occasional, Platelet Estimate Adequate, Platelet Morphology , Giant Platelets 1+ , Hypochromasia 2+, Anisocytosis 3+, Microcytosis 1+, Acanthocytes 1+, Schistocytes Occasional, Sodium Level 136, Potassium Level 3.7, Chloride Level 99, Carbon Dioxide Level 31, Anion Gap 6, Blood Urea Nitrogen 20H, Creatinine 0.8, Estimat Glomerular Filtration Rate , Glucose Level 92, Calcium Level 8.7 Height (Feet): 5 Height (Inches): 5.00 Weight (Pounds): 147 Objective General: well appearing, nad, alert Head: normocephalic, atraumatic Eyes: b/l eye PERRL, bilateral eye EOMI ENT: hearing grossly normal, normal pharynx Neck: full range of motion, supple, no meningismus Respiratory: chest non-tender, lungs clear, normal BSs, NC++ CV: regular rate, rhythm, no murmur GI: normal bowel sounds, non tender, no mass MSK: back normal, normal range of motion Psychiatric: mood/affect normal Skin: warm/dry Jose Alberto España MD Dec 29, 2018 16:21
[2018-12-29] MEDS: fentaNYL Destruction MISC SCH (17:47)
--- NOTE | 2018-12-29 17:59 | Internal Med Progress Note ---
Subjective Date of Service: Dec 29, 2018 Physician Name Nikhil West Attending Physician Abdias Hunter MD Current Medications Medications (Trade) Dose Ordered Sig/Scout Route PRN Reason Start Time Stop Time Status Last Admin Dose Admin Atorvastatin Calcium (Lipitor) 40 mg QHS ORAL 12/19/18 21:00 01/18/19 20:59 12/28/18 20:16 Carvedilol (Coreg) 12.5 mg EVERY 12 HOURS ORAL 12/19/18 09:00 01/18/19 08:59 12/28/18 20:17 Clonidine HCl (Catapres Tab) 0.1 mg Q2H PRN ORAL For High Blood Pressure 12/06/18 21:15 01/05/19 21:14 12/07/18 08:25 Docusate Sodium (Colace) 100 mg Q12H PRN ORAL Constipation 12/18/18 21:45 01/17/19 21:29 12/29/18 07:58 Famotidine (Pepcid) 20 mg QHS ORAL 11/30/18 21:00 12/30/18 20:59 12/28/18 20:16 Fentanyl (Duragesic) 1 patch Q72H TDERMAL 12/23/18 18:00 12/30/18 17:59 12/29/18 17:46 Furosemide (Lasix) 20 mg DAILY ORAL 12/19/18 17:45 01/18/19 17:44 12/29/18 07:58 Miscellaneous Medication (fentaNYL Destruction) 1 ea Q72H MISC 12/20/18 17:59 01/19/19 17:58 12/29/18 17:47 Morphine Sulfate (Morphine Sulfate) 2 mg Q4H PRN IM For Pain 12/23/18 06:15 12/30/18 06:14 12/29/18 15:25 Naloxone HCl (Narcan) 0.1 mg PRN IV Sedation scale 3 or 4 12/08/18 15:15 01/07/19 15:14 Nitroglycerin (Ntg) 0.4 mg Q5M PRN SL Prn Chest Pain 12/25/18 16:55 01/24/19 16:54 12/26/18 15:41 Ondansetron HCl (Zofran ODT) 4 mg Q4H PRN ORAL Nausea & Vomiting 12/07/18 10:00 01/06/19 09:59 12/16/18 15:20 Polyethylene Glycol (Miralax) 17 gm DAILYPRN PRN ORAL Constipation 12/28/18 19:00 01/27/19 18:59 12/29/18 07:58 Allergies: Coded Allergies: No Known Allergies (Verified , 09/12/10) ROS Limited/Unobtainable: No HEENT: Reports: no symptoms Cardiovascular: Reports: no symptoms Respiratory: Reports: no symptoms Gastrointestinal/Abdominal: Reports: no symptoms Genitourinary: Reports: no symptoms Neurologic/Psychiatric: Reports: no symptoms Subjective 78 YO M admitted with chest pain. Now pancytopenia and UTI. Cover for Int Joseph- Dr Hunter. Objective Last Vital Signs Date Time Temp Pulse Resp B/P (MAP) Pulse Ox O2 Delivery O2 Flow Rate FiO2 12/29/18 16:00 98.4 64 18 122/56 (78) 100 12/29/18 15:43 Nasal Cannula 2.0 28 Laboratory Tests Test 12/29/18 06:20 White Blood Count 6.1 K/UL (4.8-10.8) Red Blood Count 3.05 M/UL (4.70-6.10) L Hemoglobin 7.7 G/DL (14.2-18.0) L Hematocrit 23.6 % (42.0-52.0) L Mean Corpuscular Volume 77 FL (80-99) L Mean Corpuscular Hemoglobin 25.1 PG (27.0-31.0) L Mean Corpuscular Hemoglobin Concent 32.4 G/DL (32.0-36.0) Red Cell Distribution Width 22.8 % (11.6-14.8) H Platelet Count 154 K/UL (150-450) Mean Platelet Volume 15.4 FL (6.5-10.1) H Neutrophils (%) (Auto) % (45.0-75.0) Lymphocytes (%) (Auto) % (20.0-45.0) Monocytes (%) (Auto) % (1.0-10.0) Eosinophils (%) (Auto) % (0.0-3.0) Basophils (%) (Auto) % (0.0-2.0) Differential Total Cells Counted 100 Neutrophils % (Manual) 17 % (45-75) L Lymphocytes % (Manual) 53 % (20-45) H Monocytes % (Manual) 17 % (1-10) H Eosinophils % (Manual) 7 % (0-3) H Basophils % (Manual) 0 % (0-2) Band Neutrophils 6 % (0-8) Reactive Lymphocytes Occasional Platelet Estimate Adequate Platelet Morphology Giant Platelets 1+ Hypochromasia 2+ Anisocytosis 3+ Microcytosis 1+ Acanthocytes 1+ Schistocytes Occasional Sodium Level 136 MMOL/L (136-145) Potassium Level 3.7 MMOL/L (3.5-5.1) Chloride Level 99 MMOL/L (98-107) Carbon Dioxide Level 31 MMOL/L (21-32) Anion Gap 6 mmol/L (5-15) Blood Urea Nitrogen 20 mg/dL (7-18) H Creatinine 0.8 MG/DL (0.55-1.30) Estimat Glomerular Filtration Rate mL/min (>60) Glucose Level 92 MG/DL (74-106) Calcium Level 8.7 MG/DL (8.5-10.1) Intake and Output 12/28/18 12/29/18 19:00 07:00 Intake Total 240 ml 400 ml Balance 240 ml 400 ml Intake Oral 240 ml 400 ml # Voids 3 4 Objective PHYSICAL EXAMINATION: GENERAL: The patient awake, responsive, no acute distress. HEAD AND NECK: Pupils are equal and reactive to light. Extraocular movements are intact. Neck was supple. No JVD LUNGS: Good air entry. No wheeze or rales. HEART: S1, S2. Distant heart sounds. No murmur or gallops. Pacemaker in left-sided chest wall. ABDOMEN: Soft, nondistended, nontender. EXTREMITIES: No cyanosis, clubbing, edema. Varicose veins, bilateral lower extremities. NEUROLOGIC: Cranial nerves II through XII grossly intact. Motor is 5/5 in all extremities. Gait is intact. RECTAL: Refused and deferred. GENITOURINARY: Refused and deferred. PSYCHIATRIC: Mood and affect is depressed. Assessment/Plan Assessment/Plan ASSESSMENT: 1. Chest pain, possible acute coronary syndrome. 2. Hypertension. 3. Dyslipidemia. 4. Congestive heart failure. 5. Coronary artery disease. 6. Sick sinus syndrome, status pacemaker. 7. UTI. 8. Pancytopenia; S/P transfusion 5 units PRBC total-Severe anemia, Thrombocytopenia and leukopenia-?leukemia? see onc note. PLAN: Admit the patient to telemetry. Discussed case with Dr. Gee from Cardiology Electrophysiology. Await cardiac nuclear stress test-outpatient Dr. Luong, Pulmonary Critical Care. Urine cult=E. Coli. S/P Rocephin. DVT prophylaxis, heparin subcutaneous. Code status, Full Code. The patient is expected to be in the hospital greater than 2 days Discharge paln: [facility] S/P transfusion 2 units PRBC on 11/19/18 See Hematology consult-?acute myelocytic leukemia? Discharge to [facility]-see social work note Nikhil West MD Dec 29, 2018 17:59
[2018-12-29] MEDS: Atorvastatin 20mg tab ORAL SCH (19:51)
[2018-12-29 20:00] VITALS: BP 121/51
[2018-12-30 00:01] VITALS: BP 106/44
[2018-12-30] MEDS: Morphine Sulfate 2mg/ml Inj(IV/IM USE ONLY) IM PRN ×6 (00:04→21:01)
[2018-12-30 04:00] VITALS: BP 129/52
[2018-12-30 07:21] LABS: HEMATOCRIT 23.7 % (42.0-52.0); HEMOGLOBIN 7.5 G/DL (14.2-18.0); MEAN CORPUSCULAR VOLUME 78 FL (80-99); PLATELET COUNT 147 K/UL (150-450); RED BLOOD COUNT 3.05 M/UL (4.70-6.10); RED CELL DISTRIBUTION WIDTH 23.8 % (11.6-14.8); WHITE BLOOD COUNT 5.1 K/UL (4.8-10.8)
[2018-12-30 07:35] LABS: ANION GAP 7 mmol/L (5-15); BLOOD UREA NITROGEN 19 mg/dL (7-18); CALCIUM 8.9 MG/DL (8.5-10.1); CARBON DIOXIDE 30 MMOL/L (21-32); CHLORIDE 98 MMOL/L (98-107); CREATININE 0.9 MG/DL (0.55-1.30); SODIUM 135 MMOL/L (136-145)
[2018-12-30 08:02] VITALS: BP 109/44
[2018-12-30] MEDS: Carvedilol 12.5mg tab ORAL SCH ×2 (08:16→21:00)
--- NOTE | 2018-12-30 08:41 | General Progress Note ---
Assessment/Plan Problem List: (1) History of CVA (cerebrovascular accident) ICD Codes: Z86.73 - Personal history of transient ischemic attack (TIA), and cerebral infarction without residual deficits SNOMED: 266135944 (2) Cardiomyopathy ICD Codes: I42.9 - Cardiomyopathy, unspecified SNOMED: 82249936 (3) Hypothyroidism ICD Codes: E03.9 - Hypothyroidism, unspecified SNOMED: 59394263 (4) HTN (hypertension) ICD Codes: I10 - Essential (primary) hypertension SNOMED: 40244854 (5) Severe thrombocytopenia ICD Codes: D69.6 - Thrombocytopenia, unspecified SNOMED: 616450117 (6) Anxiety disorder ICD Codes: F41.9 - Anxiety disorder, unspecified SNOMED: 467729756 (7) Severe anemia ICD Codes: D64.9 - Anemia, unspecified SNOMED: 882400686 (8) GERD (gastroesophageal reflux disease) ICD Codes: K21.9 - Gastro-esophageal reflux disease without esophagitis SNOMED: 417088071 (9) Pacemaker ICD Codes: Z95.0 - Presence of cardiac pacemaker SNOMED: 46873490, 301623759, 234029541 Assessment/Plan SUMMARY OF FINDINGS: 1. Gastritis. 2. A 6 cm hiatal hernia. RECOMMENDATIONS: Follow up biopsy results and treat accordingly. >> Mild chronic gastritis. Negative for H. pylori negative negative for dysplasia or malignancy. BM biopsy>> leukemia>> fu oncology monitor H&H, prn transfusions. bowel regime ppi, H2B qhs Zofran as needed fu labs Outpatient hep C treatment dc planning Subjective ROS Limited/Unobtainable: No Allergies: Coded Allergies: No Known Allergies (Verified , 09/12/10) Objective Last 24 Hour Vital Signs Date Time Temp Pulse Resp B/P (MAP) Pulse Ox O2 Delivery O2 Flow Rate FiO2 12/30/18 08:16 64 109/44 12/30/18 08:02 98.0 64 18 109/44 (65) 96 12/30/18 04:48 98.1 12/30/18 04:00 98.4 66 18 129/52 (77) 96 12/30/18 00:01 97.7 63 18 106/44 (64) 100 12/29/18 21:00 Room Air 12/29/18 20:30 68 121/51 3/28/19 20:00 98.1 68 121/51 (74) 12/29/18 16:00 98.4 64 18 122/56 (78) 100 12/29/18 15:43 99 Nasal Cannula 2.0 12/29/18 15:42 Nasal Cannula 2.0 12/29/18 12:00 98.0 65 20 133/56 (81) 100 12/29/18 09:00 Room Air 12/29/18 09:00 63 107/61 Intake and Output 12/29/18 12/30/18 19:00 07:00 Intake Total 480 ml Output Total 600 ml Balance -120 ml Intake Oral 480 ml Output Urine Total 600 ml # Voids 3 Laboratory Tests 12/30/18 06:30: White Blood Count 5.1, Red Blood Count 3.05L, Hemoglobin 7.5L, Hematocrit 23.7L , Mean Corpuscular Volume 78L, Mean Corpuscular Hemoglobin 24.5L, Mean Corpuscular Hemoglobin Concent 31.4L, Red Cell Distribution Width 23.8H, Platelet Count 147L, Mean Platelet Volume 12.1H, Neutrophils (%) (Auto) , Lymphocytes (%) (Auto) , Monocytes (%) (Auto) , Eosinophils (%) (Auto) , Basophils (%) (Auto) , Neutrophils % (Manual) [Pending], Lymphocytes % (Manual) [Pending], Platelet Estimate [Pending], Platelet Morphology [Pending], Sodium Level 135L, Potassium Level 4.0, Chloride Level 98, Carbon Dioxide Level 30, Anion Gap 7, Blood Urea Nitrogen 19H, Creatinine 0.9, Estimat Glomerular Filtration Rate , Glucose Level 100, Calcium Level 8.9 Height (Feet): 5 Height (Inches): 5.00 Weight (Pounds): 148 General Appearance: no apparent distress EENT: normal ENT inspection Neck: supple Cardiovascular: normal rate Respiratory/Chest: decreased breath sounds Abdomen: normal bowel sounds, non tender, soft Extremities: non-tender Richie Mcguire MD Dec 30, 2018 08:41
[2018-12-30 11:42] VITALS: BP 120/61
--- NOTE | 2018-12-30 15:40 | Cardiac Electrophysiology PN ---
Assessment/Plan Assessment/Plan 1. Atypical chest pain and hx of CABG. Likely due to severe anemia. Ruled out [place]. Hold off on stress test in view of acute leukemia On Lipitor and Coreg. Off Aspirin and Plavix for anemia and thrombocytopenia 2. Cardiomyopathy. EF now 55%. On Coreg 12.5 mg bid and Lasix 20 daily [address] [facility] atriobiventricular defibrillator. Interrogated and showed Nl Fx 4. Severe anemia, S/P multiple PRBC and platelet transfusions . 5. Pancytopenia. Off Aspirin and PLavix S/P platelet and PRBC transfusion. S/P BM biopsy 11/29/18 that confirmed Leukemia FU by Dr Stock 6. Placement pending DW RN Subjective Subjective No CP or SOB. Had 2 billious vomits today. Very weak. Objective Last 24 Hour Vital Signs Date Time Temp Pulse Resp B/P (MAP) Pulse Ox O2 Delivery O2 Flow Rate FiO2 12/30/18 11:42 98.4 69 18 120/61 (80) 96 12/30/18 08:16 64 109/44 12/30/18 08:15 Room Air 12/30/18 08:02 98.0 64 18 109/44 (65) 96 12/30/18 04:48 98.1 12/30/18 04:00 98.4 66 18 129/52 (77) 96 12/30/18 00:01 97.7 63 18 106/44 (64) 100 12/29/18 21:00 Room Air 12/29/18 20:30 68 121/51 12/29/18 20:00 98.1 68 121/51 (74) 12/29/18 16:00 98.4 64 18 122/56 (78) 100 12/29/18 15:43 99 Nasal Cannula 2.0 28 12/29/18 15:42 Nasal Cannula 2.0 28 Intake and Output 12/29/18 12/30/18 18:59 06:59 Intake Total 480 ml Output Total 600 ml Balance -120 ml Intake Oral 480 ml Output Urine Total 600 ml # Voids 3 Laboratory Tests Test 12/30/18 06:30 White Blood Count 5.1 K/UL (4.8-10.8) Red Blood Count 3.05 M/UL (4.70-6.10) L Hemoglobin 7.5 G/DL (14.2-18.0) L Hematocrit 23.7 % (42.0-52.0) L Mean Corpuscular Volume 78 FL (80-99) L Mean Corpuscular Hemoglobin 24.5 PG (27.0-31.0) L Mean Corpuscular Hemoglobin Concent 31.4 G/DL (32.0-36.0) L Red Cell Distribution Width 23.8 % (11.6-14.8) H Platelet Count 147 K/UL (150-450) L Mean Platelet Volume 12.1 FL (6.5-10.1) H Neutrophils (%) (Auto) % (45.0-75.0) Lymphocytes (%) (Auto) % (20.0-45.0) Monocytes (%) (Auto) % (1.0-10.0) Eosinophils (%) (Auto) % (0.0-3.0) Basophils (%) (Auto) % (0.0-2.0) Differential Total Cells Counted 100 Neutrophils % (Manual) 22 % (45-75) L Lymphocytes % (Manual) 55 % (20-45) H Monocytes % (Manual) 18 % (1-10) H Eosinophils % (Manual) 1 % (0-3) Basophils % (Manual) 2 % (0-2) Band Neutrophils 2 % (0-8) Reactive Lymphocytes Occasional Platelet Estimate Decreased L Platelet Morphology Giant Platelets 1+ Hypochromasia 2+ Anisocytosis 3+ Microcytosis 1+ Acanthocytes 1+ Schistocytes 1+ Sodium Level 135 MMOL/L (136-145) L Potassium Level 4.0 MMOL/L (3.5-5.1) Chloride Level 98 MMOL/L (98-107) Carbon Dioxide Level 30 MMOL/L (21-32) Anion Gap 7 mmol/L (5-15) Blood Urea Nitrogen 19 mg/dL (7-18) H Creatinine 0.9 MG/DL (0.55-1.30) Estimat Glomerular Filtration Rate mL/min (>60) Glucose Level 100 MG/DL (74-106) Calcium Level 8.9 MG/DL (8.5-10.1) Objective HEAD AND NECK: No JVD. LUNGS: Coarse rhonchi. CARDIOVASCULAR: Regular S1 and S2 with no gallop or murmur. Sternotomy intact. ICD in left subclavian. ABDOMEN: Soft. EXTREMITIES: 1+ pitting edema. Satinder Gee MD Dec 30, 2018 15:40
--- NOTE | 2018-12-30 15:41 | Pulmonology Progress Note ---
Assessment/Plan Problems: (1) Myeloblastic leukemia (2) Severe thrombocytopenia (3) ACS (acute coronary syndrome) (4) Cardiomyopathy (5) HTN (hypertension) (6) Pacemaker (7) Hypothyroidism (8) CAD (coronary artery disease) Assessment/Plan nauseous earlier doing better, still nauseous on fentNAYL PACH, pain better controlled dc all oral analgesics and try Fentanyl Patch doing better early leukemia check electrolytes no malignancy in bone marrow symptomatic treatment dc planning Subjective ROS Limited/Unobtainable: No Constitutional: Reports: no symptoms HEENT: Repors: no symptoms Allergies: Coded Allergies: No Known Allergies (Verified , 09/12/10) Objective Last 24 Hour Vital Signs Date Time Temp Pulse Resp B/P (MAP) Pulse Ox O2 Delivery O2 Flow Rate FiO2 12/30/18 11:42 98.4 69 18 120/61 (80) 96 12/30/18 08:16 64 109/44 12/30/18 08:15 Room Air 12/30/18 08:02 98.0 64 18 109/44 (65) 96 12/30/18 04:48 98.1 12/30/18 04:00 98.4 66 18 129/52 (77) 96 12/30/18 00:01 97.7 63 18 106/44 (64) 100 12/29/18 21:00 Room Air 12/29/18 20:30 68 121/51 12/29/18 20:00 98.1 68 121/51 (74) 12/29/18 16:00 98.4 64 18 122/56 (78) 100 12/29/18 15:43 99 Nasal Cannula 2.0 28 12/29/18 15:42 Nasal Cannula 2.0 28 Intake and Output 12/29/18 12/30/18 18:59 06:59 Intake Total 480 ml Output Total 600 ml Balance -120 ml Intake Oral 480 ml Output Urine Total 600 ml # Voids 3 Objective General Appearance: cachetic Lines, tubes and drains: peripheral HEENT: normocephalic, atraumatic Neck: non-tender, normal alignment Respiratory/Chest: chest wall non-tender, lungs clear Breasts: no masses Cardiovascular/Chest: normal peripheral pulses, normal rate Abdomen: normal bowel sounds, non tender Genitourinary/Rectal: normal genital exam Extremities: normal range of motion Skin Exam: normal pigmentation 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 Laboratory Tests 12/30/18 06:30: White Blood Count 5.1, Red Blood Count 3.05L, Hemoglobin 7.5L, Hematocrit 23.7L , Mean Corpuscular Volume 78L, Mean Corpuscular Hemoglobin 24.5L, Mean Corpuscular Hemoglobin Concent 31.4L, Red Cell Distribution Width 23.8H, Platelet Count 147L, Mean Platelet Volume 12.1H, Neutrophils (%) (Auto) , Lymphocytes (%) (Auto) , Monocytes (%) (Auto) , Eosinophils (%) (Auto) , Basophils (%) (Auto) , Differential Total Cells Counted 100, Neutrophils % ( Manual) 22L, Lymphocytes % (Manual) 55H, Monocytes % (Manual) 18H, Eosinophils % (Manual) 1, Basophils % (Manual) 2, Band Neutrophils 2, Reactive Lymphocytes Occasional, Platelet Estimate DecreasedL, Platelet Morphology , Giant Platelets 1+, Hypochromasia 2+, Anisocytosis 3+, Microcytosis 1+, Acanthocytes 1+, Schistocytes 1+, Sodium Level 135L, Potassium Level 4.0, Chloride Level 98, Carbon Dioxide Level 30, Anion Gap 7, Blood Urea Nitrogen 19H, Creatinine 0.9, Estimat Glomerular Filtration Rate , Glucose Level 100, Calcium Level 8.9 Current Medications Medications (Trade) Dose Ordered Sig/Scout Route PRN Reason Start Time Stop Time Status Last Admin Dose Admin Atorvastatin Calcium (Lipitor) 40 mg QHS ORAL 12/19/18 21:00 01/18/19 20:59 12/29/18 19:51 Carvedilol (Coreg) 12.5 mg EVERY 12 HOURS ORAL 12/19/18 09:00 01/18/19 08:59 12/30/18 08:16 Clonidine HCl (Catapres Tab) 0.1 mg Q2H PRN ORAL For High Blood Pressure 12/06/18 21:15 01/05/19 21:14 12/07/18 08:25 Docusate Sodium (Colace) 100 mg Q12H PRN ORAL Constipation 12/18/18 21:45 01/17/19 21:29 12/29/18 07:58 Famotidine (Pepcid) 20 mg QHS ORAL 11/30/18 21:00 12/30/18 20:59 12/29/18 19:51 Fentanyl (Duragesic) 1 patch Q72H TDERMAL 12/23/18 18:00 12/30/18 17:59 12/29/18 17:46 Furosemide (Lasix) 20 mg DAILY ORAL 12/19/18 17:45 01/18/19 17:44 12/30/18 08:16 Miscellaneous Medication (fentaNYL Destruction) 1 ea Q72H MISC 12/20/18 17:59 01/19/19 17:58 12/29/18 17:47 Morphine Sulfate (Morphine Sulfate) 2 mg Q4H PRN IM Severe Pain (Pain Scale 7-10) 12/30/18 08:30 01/06/19 08:29 12/30/18 12:25 Naloxone HCl (Narcan) 0.1 mg PRN IV Sedation scale 3 or 4 12/08/18 15:15 01/07/19 15:14 Nitroglycerin (Ntg) 0.4 mg Q5M PRN SL Prn Chest Pain 12/25/18 16:55 01/24/19 16:54 12/26/18 15:41 Ondansetron HCl (Zofran ODT) 4 mg Q4H PRN ORAL Nausea & Vomiting 12/07/18 10:00 01/06/19 09:59 12/16/18 15:20 Polyethylene Glycol (Miralax) 17 gm DAILYPRN PRN ORAL Constipation 12/28/18 19:00 01/27/19 18:59 12/29/18 07:58 Chepe Luong MD Dec 30, 2018 15:41
[2018-12-30] MEDS: Nitroglycerin Subl 0.4mg tab SL PRN (15:51)
[2018-12-30 16:00] VITALS: BP 134/66
--- NOTE | 2018-12-30 17:07 | General Progress Note ---
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+++ --> bone marrow bipsy/aspiration report reviewed and concerning for LEUKEMIA with 8.7% myeloblasts --> Continue to monitor for improvement, trend cbc --> HIV is negative, but hep C++ --> US abd ordered to r/o cirrhosis and hsm and is negative for those --> reverse isolation if ANC is <2000 --> Give neupogen if ANC <1000 --> Transfuse if hgb <7, with 1 unit prbc --> medications have been reviewed as well --> hospice v treatment as per pcp recommendations and referral --> Hgb trend: 9-->8.7-->7.9-->7-->7.6-->7.4->8.1-->7.7-->6.5-->8.3-->7.7-->7.5 # Thrombocytopenia - potential causes multifactorial, evaluate liver and viral etiologies to begin, also could be related to underlying medications patient has received. --> Hep panel and HIV negative, hep C++++ --> US abd to evaluate for cirrhosis and hsm reviewed --> Peripheral smear ordered to evaluate for blasts /schistocytes is wnl --> abx and other meds have been reviewed --> ok for ppx if plt >50k w/ either heparin or lovenox --> Transfuse if Plt < 20k and fever, or if Plt < 10k without fever --->Plt trend 70-->65-->44-->86-->122-->88-->100k-->140k-->154k # Reticulocytosis with elevated bilirubin that is indirect --> reviewed direct and indirect bilis again, trend could have liver disease --> liver US shows no significant cirrhosis --> evaluate as needed with gi team, recs apprecaited #. Chest pain, possible acute coronary syndrome. --> cards recs appreciated as well as pulm --> stress test prn # Hypertension. sbp goal <140 -- > as per cards recs # Dyslipidemia. # Chf # Coronary artery disease. # Sick sinus syndrome, status pacemaker. # Acute E. coli UTI s/p abx # Hep C+++ needs op management The timing of this note does not necessarily reflect the time of the patient was seen. Greatly appreciate consultation! Subjective Constitutional: Denies: no symptoms, chills, diaphoresis, fever, malaise, weakness, other Cardiovascular: Denies: no symptoms, chest pain, edema, irregular heart rate, lightheadedness, palpitations, syncope, other Respiratory: Denies: no symptoms, cough, orthopnea, shortness of breath, SOB with excertion, SOB at rest, sputum, stridor, wheezing, other Gastrointestinal/Abdominal: Denies: no symptoms, abdomen distended, abdominal pain, black stools, tarry stools, blood in stool, constipated, diarrhea, difficulty swallowing, nausea, poor appetite, poor fluid intake, rectal bleeding , vomiting, other Genitourinary: Denies: no symptoms, burning, discharge, frequency, flank pain, hematuria, incontinence, pain, urgency, other Neurologic/Psychiatric: Denies: no symptoms, anxiety, depressed, emotional problems, headache, numbness, paresthesia, pre-existing deficit, seizure, tingling, tremors, weakness, other Endocrine: Denies: no symptoms, excessive sweating, flushing, intolerance to cold, intolerance to heat, increased hunger, increased thirst, increased urine, unexplained weight gain, unexplained weight loss, other Hematologic/Lymphatic: Denies: no symptoms, anemia, easy bleeding, easy bruising, other Allergies: Coded Allergies: No Known Allergies (Verified , 09/12/10) Subjective 11/27: no events to report, no f/c 11/28: seen by bedside, plt 65, plan for EGD and bone marrow biopsy tomorrow 11/29: BM biopsy today, no acute distress. 11/30: Had BM biopsy yesterday and now in reverse isolation. hgb 7.5, will transfuse as needed. 12/01: seen by bedside, plt remains low, awaiting bone marrow biopsy results. 12/02: No acute distress, no chest pain, no shortness of breath, wbc 2.7, hgb 7.3 , plt 50, will transfuse as needed. S/P BM biopsy 11/29/18, Results pending 12/04: bone marrow biopsy completed, and show myeloblasts, c/w mds/leukemia, requires close surveillance 12/05: hgb 6.9, Had blood transfusion today, plt up trending, no events 12/06: Seen by bedside, overall improved, still has complaint of chest pain, plt trending up 12/07: Given 1 unit prbc, continues to c/o chest pain, seen by cards 12/08: seen by bedside, complains of pain, plt 106, no events 12/09: awake, comfortable, plt trending down at 69, no events 12/11: awake, comfortable, on NC, plt remains low at 70. 12/12: awake, comfortable, plt 65, no events 12/13: seen by bedside, awake , comfortable, pending labs. 12/14: awake, comfortable, hgb 7.9, monitor, will transfuse as needed, plt trending down at 44, 12/15: seen by bedside, awake, comfortable, hgb 7, will transfuse as needed, plt 82. 12/16: awake comfortable, no events, hgb trending up 12/18: seen by bedside, alert, oriented, no acute distress 12/19: no events noted, no fevers or chills, cbc has been reviewed, had blasts on smear this wknd 12/20: seen by bedside, awake, comfortable, hgb 7.4, will transfuse as needed. 12/21: No overnight events reported, comfortable, hgb 8.1 12/22: no events to report, remains nausous, the platelet count has improved on its own 12/23: awaiting placement to snf at this time, following with cards, pulm 12/24: on 2l nc, received morphine today by rn, complaining of pain 12/25: no events today, no f/c, labs reviewed 12/26: no events report, will get one unit prbc today, has been ordered 12/27: hgb stable/improved but is after transfusion, no events otherwise no fevers 12/28: no events, feeling overall better 12/29: this am comfortable and sleeping, no events, cbc reviewed, no issues noted 12/30: no events to report, no night sweats, anemia panel reviewed Objective Last 24 Hour Vital Signs Date Time Temp Pulse Resp B/P (MAP) Pulse Ox O2 Delivery O2 Flow Rate FiO2 12/30/18 16:00 98.2 67 18 134/66 (88) 96 12/30/18 15:51 135/72 12/30/18 11:42 98.4 69 18 120/61 (80) 96 12/30/18 08:16 64 109/44 12/30/18 08:15 Room Air 12/30/18 08:02 98.0 64 18 109/44 (65) 96 12/30/18 04:48 98.1 12/30/18 04:00 98.4 66 18 129/52 (77) 96 12/30/18 00:01 97.7 63 18 106/44 (64) 100 12/29/18 21:00 Room Air 12/29/18 20:30 68 121/51 12/29/18 20:00 98.1 68 121/51 (74) Intake and Output 12/29/18 12/30/18 19:00 07:00 Intake Total 480 ml Output Total 600 ml Balance -120 ml Intake Oral 480 ml Output Urine Total 600 ml # Voids 3 Laboratory Tests 12/30/18 06:30: White Blood Count 5.1, Red Blood Count 3.05L, Hemoglobin 7.5L, Hematocrit 23.7L , Mean Corpuscular Volume 78L, Mean Corpuscular Hemoglobin 24.5L, Mean Corpuscular Hemoglobin Concent 31.4L, Red Cell Distribution Width 23.8H, Platelet Count 147L, Mean Platelet Volume 12.1H, Neutrophils (%) (Auto) , Lymphocytes (%) (Auto) , Monocytes (%) (Auto) , Eosinophils (%) (Auto) , Basophils (%) (Auto) , Differential Total Cells Counted 100, Neutrophils % ( Manual) 22L, Lymphocytes % (Manual) 55H, Monocytes % (Manual) 18H, Eosinophils % (Manual) 1, Basophils % (Manual) 2, Band Neutrophils 2, Reactive Lymphocytes Occasional, Platelet Estimate DecreasedL, Platelet Morphology , Giant Platelets 1+, Hypochromasia 2+, Anisocytosis 3+, Microcytosis 1+, Acanthocytes 1+, Schistocytes 1+, Sodium Level 135L, Potassium Level 4.0, Chloride Level 98, Carbon Dioxide Level 30, Anion Gap 7, Blood Urea Nitrogen 19H, Creatinine 0.9, Estimat Glomerular Filtration Rate , Glucose Level 100, Calcium Level 8.9 Height (Feet): 5 Height (Inches): 5.00 Weight (Pounds): 148 Objective General: well appearing, nad, alert Head: normocephalic, atraumatic Eyes: b/l eye PERRL, bilateral eye EOMI ENT: hearing grossly normal, normal pharynx Neck: full range of motion, supple, no meningismus Respiratory: chest non-tender, lungs clear, normal BSs, NC++ CV: regular rate, rhythm, no murmur GI: normal bowel sounds, non tender, no mass MSK: back normal, normal range of motion Psychiatric: mood/affect normal Skin: warm/dry Jose Alberto España MD Dec 30, 2018 17:07
--- NOTE | 2018-12-30 19:51 | Internal Med Progress Note ---
Subjective Date of Service: Dec 30, 2018 Physician Name Nikhil West Attending Physician Abdias Hunter MD Current Medications Medications (Trade) Dose Ordered Sig/Scout Route PRN Reason Start Time Stop Time Status Last Admin Dose Admin Atorvastatin Calcium (Lipitor) 40 mg QHS ORAL 12/19/18 21:00 01/18/19 20:59 12/29/18 19:51 Carvedilol (Coreg) 12.5 mg EVERY 12 HOURS ORAL 12/19/18 09:00 01/18/19 08:59 12/30/18 08:16 Clonidine HCl (Catapres Tab) 0.1 mg Q2H PRN ORAL For High Blood Pressure 12/06/18 21:15 01/05/19 21:14 12/07/18 08:25 Docusate Sodium (Colace) 100 mg Q12H PRN ORAL Constipation 12/18/18 21:45 01/17/19 21:29 12/29/18 07:58 Famotidine (Pepcid) 20 mg QHS ORAL 11/30/18 21:00 12/30/18 20:59 12/29/18 19:51 Fentanyl (Duragesic) 1 patch Q72H TDERMAL 01/01/19 18:00 01/08/19 17:59 Furosemide (Lasix) 20 mg DAILY ORAL 12/19/18 17:45 01/18/19 17:44 12/30/18 08:16 Miscellaneous Medication (fentaNYL Destruction) 1 ea Q72H MISC 01/01/19 17:59 01/31/19 17:58 Morphine Sulfate (Morphine Sulfate) 2 mg Q4H PRN IM Severe Pain (Pain Scale 7-10) 12/30/18 08:30 01/06/19 08:29 12/30/18 16:42 Naloxone HCl (Narcan) 0.1 mg PRN IV Sedation scale 3 or 4 12/08/18 15:15 01/07/19 15:14 Nitroglycerin (Ntg) 0.4 mg Q5M PRN SL Prn Chest Pain 12/25/18 16:55 01/24/19 16:54 12/30/18 15:51 Ondansetron HCl (Zofran ODT) 4 mg Q4H PRN ORAL Nausea & Vomiting 12/07/18 10:00 01/06/19 09:59 12/16/18 15:20 Polyethylene Glycol (Miralax) 17 gm DAILYPRN PRN ORAL Constipation 12/28/18 19:00 01/27/19 18:59 12/29/18 07:58 Allergies: Coded Allergies: No Known Allergies (Verified , 09/12/10) ROS Limited/Unobtainable: No Constitutional: Reports: no symptoms HEENT: Reports: no symptoms Cardiovascular: Reports: no symptoms Respiratory: Reports: no symptoms Gastrointestinal/Abdominal: Reports: no symptoms Genitourinary: Reports: no symptoms Neurologic/Psychiatric: Reports: no symptoms Subjective 78 YO M admitted with chest pain. Now pancytopenia and UTI. Cover for Int Joseph- Dr Hunter. Objective Last Vital Signs Date Time Temp Pulse Resp B/P (MAP) Pulse Ox O2 Delivery O2 Flow Rate FiO2 12/30/18 16:00 98.2 67 18 134/66 (88) 96 12/30/18 08:15 Room Air 12/29/18 15:43 2.0 28 Laboratory Tests Test 12/30/18 06:30 White Blood Count 5.1 K/UL (4.8-10.8) Red Blood Count 3.05 M/UL (4.70-6.10) L Hemoglobin 7.5 G/DL (14.2-18.0) L Hematocrit 23.7 % (42.0-52.0) L Mean Corpuscular Volume 78 FL (80-99) L Mean Corpuscular Hemoglobin 24.5 PG (27.0-31.0) L Mean Corpuscular Hemoglobin Concent 31.4 G/DL (32.0-36.0) L Red Cell Distribution Width 23.8 % (11.6-14.8) H Platelet Count 147 K/UL (150-450) L Mean Platelet Volume 12.1 FL (6.5-10.1) H Neutrophils (%) (Auto) % (45.0-75.0) Lymphocytes (%) (Auto) % (20.0-45.0) Monocytes (%) (Auto) % (1.0-10.0) Eosinophils (%) (Auto) % (0.0-3.0) Basophils (%) (Auto) % (0.0-2.0) Differential Total Cells Counted 100 Neutrophils % (Manual) 22 % (45-75) L Lymphocytes % (Manual) 55 % (20-45) H Monocytes % (Manual) 18 % (1-10) H Eosinophils % (Manual) 1 % (0-3) Basophils % (Manual) 2 % (0-2) Band Neutrophils 2 % (0-8) Reactive Lymphocytes Occasional Platelet Estimate Decreased L Platelet Morphology Giant Platelets 1+ Hypochromasia 2+ Anisocytosis 3+ Microcytosis 1+ Acanthocytes 1+ Schistocytes 1+ Sodium Level 135 MMOL/L (136-145) L Potassium Level 4.0 MMOL/L (3.5-5.1) Chloride Level 98 MMOL/L (98-107) Carbon Dioxide Level 30 MMOL/L (21-32) Anion Gap 7 mmol/L (5-15) Blood Urea Nitrogen 19 mg/dL (7-18) H Creatinine 0.9 MG/DL (0.55-1.30) Estimat Glomerular Filtration Rate mL/min (>60) Glucose Level 100 MG/DL (74-106) Calcium Level 8.9 MG/DL (8.5-10.1) Intake and Output 12/29/18 12/30/18 19:00 07:00 Intake Total 480 ml Output Total 600 ml Balance -120 ml Intake Oral 480 ml Output Urine Total 600 ml # Voids 3 Objective PHYSICAL EXAMINATION: GENERAL: The patient awake, responsive, no acute distress. HEAD AND NECK: Pupils are equal and reactive to light. Extraocular movements are intact. Neck was supple. No JVD LUNGS: Good air entry. No wheeze or rales. HEART: S1, S2. Distant heart sounds. No murmur or gallops. Pacemaker in left-sided chest wall. ABDOMEN: Soft, nondistended, nontender. EXTREMITIES: No cyanosis, clubbing, edema. Varicose veins, bilateral lower extremities. NEUROLOGIC: Cranial nerves II through XII grossly intact. Motor is 5/5 in all extremities. Gait is intact. RECTAL: Refused and deferred. GENITOURINARY: Refused and deferred. PSYCHIATRIC: Mood and affect is depressed. Assessment/Plan Assessment/Plan ASSESSMENT: 1. Chest pain, possible acute coronary syndrome. 2. Hypertension. 3. Dyslipidemia. 4. Congestive heart failure. 5. Coronary artery disease. 6. Sick sinus syndrome, status pacemaker. 7. UTI. 8. Pancytopenia; S/P transfusion 5 units PRBC total-Severe anemia, Thrombocytopenia and leukopenia-?leukemia? see onc note. PLAN: Admit the patient to telemetry. Discussed case with Dr. Gee from Cardiology Electrophysiology. Await cardiac nuclear stress test-outpatient Dr. Luong, Pulmonary Critical Care. Urine cult=E. Coli. S/P Rocephin. DVT prophylaxis, heparin subcutaneous. Code status, Full Code. The patient is expected to be in the hospital greater than 2 days Discharge paln: [facility] S/P transfusion 2 units PRBC on 11/19/18 See Hematology consult-?acute myelocytic leukemia? Discharge to [facility]-see social work note Nikhil West MD Dec 30, 2018 19:51
[2018-12-30 20:00] VITALS: BP 114/51
[2018-12-30] MEDS ORDERED: Tubing Blood Filter IV ONE (20:42)
[2018-12-30] MEDS ORDERED: D5 1/2NS 1000ml IV ONE (20:42)
[2018-12-30] MEDS: Atorvastatin 20mg tab ORAL SCH (21:00)
[2018-12-31] VITALS: BP 106/48
[2018-12-31] MEDS: Morphine Sulfate 2mg/ml Inj(IV/IM USE ONLY) IM PRN ×6 (01:01→21:07)
[2018-12-31 04:00] VITALS: BP 104/51
[2018-12-31 08:00] VITALS: BP 121/52
--- NOTE | 2018-12-31 08:41 | General Progress Note ---
Assessment/Plan Problem List: (1) History of CVA (cerebrovascular accident) ICD Codes: Z86.73 - Personal history of transient ischemic attack (TIA), and cerebral infarction without residual deficits SNOMED: 346500385 (2) Cardiomyopathy ICD Codes: I42.9 - Cardiomyopathy, unspecified SNOMED: 50845284 (3) Hypothyroidism ICD Codes: E03.9 - Hypothyroidism, unspecified SNOMED: 03319113 (4) HTN (hypertension) ICD Codes: I10 - Essential (primary) hypertension SNOMED: 98659445 (5) Severe thrombocytopenia ICD Codes: D69.6 - Thrombocytopenia, unspecified SNOMED: 319512798 (6) Anxiety disorder ICD Codes: F41.9 - Anxiety disorder, unspecified SNOMED: 168797682 (7) Severe anemia ICD Codes: D64.9 - Anemia, unspecified SNOMED: 349228801 (8) GERD (gastroesophageal reflux disease) ICD Codes: K21.9 - Gastro-esophageal reflux disease without esophagitis SNOMED: 028543945 (9) Pacemaker ICD Codes: Z95.0 - Presence of cardiac pacemaker SNOMED: 89465038, 503371955, 117065648 Assessment/Plan SUMMARY OF FINDINGS: 1. Gastritis. 2. A 6 cm hiatal hernia. RECOMMENDATIONS: Follow up biopsy results and treat accordingly. >> Mild chronic gastritis. Negative for H. pylori negative negative for dysplasia or malignancy. BM biopsy>> leukemia>> fu oncology monitor H&H, prn transfusions. bowel regime ppi, H2B qhs Zofran as needed fu labs Outpatient hep C treatment dc planning Subjective ROS Limited/Unobtainable: No Allergies: Coded Allergies: No Known Allergies (Verified , 09/12/10) Objective Last 24 Hour Vital Signs Date Time Temp Pulse Resp B/P (MAP) Pulse Ox O2 Delivery O2 Flow Rate FiO2 12/31/18 08:00 97.8 64 18 121/52 (75) 100 12/31/18 04:00 97.6 62 20 104/51 (68) 100 12/31/18 00:00 98.6 62 18 106/48 (67) 100 12/30/18 21:00 Room Air 12/30/18 21:00 67 114/51 12/30/18 20:00 98.9 67 17 114/51 (72) 100 12/30/18 16:00 98.2 67 18 134/66 (88) 96 12/30/18 15:51 135/72 12/30/18 11:42 98.4 69 18 120/61 (80) 96 Intake and Output 12/30/18 12/31/18 19:00 07:00 Intake Total 900 ml 240 ml Output Total 900 ml 300 ml Balance 0 ml -60 ml Intake Oral 900 ml 240 ml Output Urine Total 900 ml 300 ml # Voids 2 1 Height (Feet): 5 Height (Inches): 5.00 Weight (Pounds): 147 General Appearance: no apparent distress EENT: normal ENT inspection Neck: supple Cardiovascular: normal rate Respiratory/Chest: decreased breath sounds Abdomen: normal bowel sounds, non tender, soft Extremities: non-tender Richie Mcguire MD Dec 31, 2018 08:41
[2018-12-31] MEDS: Carvedilol 12.5mg tab ORAL SCH ×2 (09:11→21:00)
[2018-12-31 12:00] VITALS: BP 148/72
--- NOTE | 2018-12-31 13:59 | Pulmonology Progress Note ---
Assessment/Plan Problems: (1) Myeloblastic leukemia (2) Severe thrombocytopenia (3) ACS (acute coronary syndrome) (4) Cardiomyopathy (5) HTN (hypertension) (6) Pacemaker (7) Hypothyroidism (8) CAD (coronary artery disease) Assessment/Plan no new complains doing better, still nauseous on fentNAYL PACH, pain better controlled dc all oral analgesics and try Fentanyl Patch doing better early leukemia check electrolytes no malignancy in bone marrow symptomatic treatment dc planning Subjective ROS Limited/Unobtainable: No Constitutional: Reports: no symptoms HEENT: Repors: no symptoms Allergies: Coded Allergies: No Known Allergies (Verified , 09/12/10) Objective Last 24 Hour Vital Signs Date Time Temp Pulse Resp B/P (MAP) Pulse Ox O2 Delivery O2 Flow Rate FiO2 12/31/18 12:00 98.6 70 18 148/72 (97) 100 12/31/18 09:11 64 121/52 12/31/18 08:30 Room Air 12/31/18 08:00 97.8 64 18 121/52 (75) 100 12/31/18 04:00 97.6 62 20 104/51 (68) 100 12/31/18 00:00 98.6 62 18 106/48 (67) 100 12/30/18 21:00 Room Air 12/30/18 21:00 67 114/51 12/30/18 20:00 98.9 67 17 114/51 (72) 100 12/30/18 16:00 98.2 67 18 134/66 (88) 96 12/30/18 15:51 135/72 Intake and Output 12/30/18 12/31/18 19:00 07:00 Intake Total 900 ml 240 ml Output Total 900 ml 300 ml Balance 0 ml -60 ml Intake Oral 900 ml 240 ml Output Urine Total 900 ml 300 ml # Voids 2 1 Objective General Appearance: cachetic Lines, tubes and drains: peripheral HEENT: normocephalic, atraumatic Neck: non-tender, normal alignment Respiratory/Chest: chest wall non-tender, lungs clear Breasts: no masses Cardiovascular/Chest: normal peripheral pulses, normal rate Abdomen: normal bowel sounds, non tender Genitourinary/Rectal: normal genital exam Extremities: normal range of motion Skin Exam: normal pigmentation 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 Current Medications Medications (Trade) Dose Ordered Sig/Scout Route PRN Reason Start Time Stop Time Status Last Admin Dose Admin Atorvastatin Calcium (Lipitor) 40 mg QHS ORAL 12/19/18 21:00 01/18/19 20:59 12/30/18 21:00 Carvedilol (Coreg) 12.5 mg EVERY 12 HOURS ORAL 12/19/18 09:00 01/18/19 08:59 12/31/18 09:11 Clonidine HCl (Catapres Tab) 0.1 mg Q2H PRN ORAL For High Blood Pressure 12/06/18 21:15 01/05/19 21:14 12/07/18 08:25 Docusate Sodium (Colace) 100 mg Q12H PRN ORAL Constipation 12/18/18 21:45 01/17/19 21:29 12/29/18 07:58 Fentanyl (Duragesic) 1 patch Q72H TDERMAL 01/01/19 18:00 01/08/19 17:59 Furosemide (Lasix) 20 mg DAILY ORAL 12/19/18 17:45 01/18/19 17:44 12/31/18 09:11 Miscellaneous Medication (fentaNYL Destruction) 1 ea Q72H MISC 01/01/19 17:59 01/31/19 17:58 Morphine Sulfate (Morphine Sulfate) 2 mg Q4H PRN IM Severe Pain (Pain Scale 7-10) 12/30/18 08:30 01/06/19 08:29 12/31/18 13:05 Naloxone HCl (Narcan) 0.1 mg PRN IV Sedation scale 3 or 4 12/08/18 15:15 01/07/19 15:14 Nitroglycerin (Ntg) 0.4 mg Q5M PRN SL Prn Chest Pain 12/25/18 16:55 01/24/19 16:54 12/30/18 15:51 Ondansetron HCl (Zofran ODT) 4 mg Q4H PRN ORAL Nausea & Vomiting 12/07/18 10:00 01/06/19 09:59 12/16/18 15:20 Polyethylene Glycol (Miralax) 17 gm DAILYPRN PRN ORAL Constipation 12/28/18 19:00 01/27/19 18:59 12/29/18 07:58 Chepe Luong MD Dec 31, 2018 13:59
[2018-12-31 16:00] VITALS: BP 99/52
--- NOTE | 2018-12-31 16:06 | Cardiac Electrophysiology PN ---
Assessment/Plan Assessment/Plan 1. Atypical chest pain in a pt s/p CABG. Likely due to severe anemia. Ruled out NM. Hold off on stress test in view of acute leukemia On Lipitor and Coreg. Off Aspirin and Plavix for anemia and thrombocytopenia 2. Cardiomyopathy. EF now 55%. On Coreg 12.5 mg bid and Lasix 20 daily 3. Status post [facility] atriobiventricular defibrillator. Interrogated and showed Nl Fx 4. Severe anemia, S/P multiple PRBC and platelet transfusions . 5. Pancytopenia. Off Aspirin and PLavix S/P platelet and PRBC transfusion. S/P BM biopsy 11/29/18 that confirmed Leukemia FU by Dr Stock 6. Placement pending DW RN Subjective Subjective No CP or SOB. Very weak.Placement pending Objective Last 24 Hour Vital Signs Date Time Temp Pulse Resp B/P (MAP) Pulse Ox O2 Delivery O2 Flow Rate FiO2 12/31/18 12:00 98.6 70 18 148/72 (97) 100 12/31/18 09:11 64 121/52 12/31/18 08:30 Room Air 12/31/18 08:00 97.8 64 18 121/52 (75) 100 12/31/18 04:00 97.6 62 20 104/51 (68) 100 12/31/18 00:00 98.6 62 18 106/48 (67) 100 12/30/18 21:00 Room Air 12/30/18 21:00 67 114/51 12/30/18 20:00 98.9 67 17 114/51 (72) 100 Intake and Output 12/30/18 12/31/18 18:59 06:59 Intake Total 900 ml 240 ml Output Total 900 ml 300 ml Balance 0 ml -60 ml Intake Oral 900 ml 240 ml Output Urine Total 900 ml 300 ml # Voids 2 1 Objective HEAD AND NECK: No JVD. LUNGS: Coarse rhonchi. CARDIOVASCULAR: Regular S1 and S2 with no gallop or murmur. Sternotomy intact. ICD in left subclavian. ABDOMEN: Soft. EXTREMITIES: 1+ pitting edema. Satinder Gee MD Dec 31, 2018 16:06
--- NOTE | 2018-12-31 16:23 | Internal Med Progress Note ---
Subjective Date of Service: Dec 31, 2018 Physician Name Nikhil West Attending Physician Abdias Hunter MD Current Medications Medications (Trade) Dose Ordered Sig/Scout Route PRN Reason Start Time Stop Time Status Last Admin Dose Admin Atorvastatin Calcium (Lipitor) 40 mg QHS ORAL 12/19/18 21:00 01/18/19 20:59 12/30/18 21:00 Carvedilol (Coreg) 12.5 mg EVERY 12 HOURS ORAL 12/19/18 09:00 01/18/19 08:59 12/31/18 09:11 Clonidine HCl (Catapres Tab) 0.1 mg Q2H PRN ORAL For High Blood Pressure 12/06/18 21:15 01/05/19 21:14 12/07/18 08:25 Docusate Sodium (Colace) 100 mg Q12H PRN ORAL Constipation 12/18/18 21:45 01/17/19 21:29 12/29/18 07:58 Fentanyl (Duragesic) 1 patch Q72H TDERMAL 01/01/19 18:00 01/08/19 17:59 Furosemide (Lasix) 20 mg DAILY ORAL 12/19/18 17:45 01/18/19 17:44 12/31/18 09:11 Miscellaneous Medication (fentaNYL Destruction) 1 ea Q72H MISC 01/01/19 17:59 01/31/19 17:58 Morphine Sulfate (Morphine Sulfate) 2 mg Q4H PRN IM Severe Pain (Pain Scale 7-10) 12/30/18 08:30 01/06/19 08:29 12/31/18 13:05 Naloxone HCl (Narcan) 0.1 mg PRN IV Sedation scale 3 or 4 12/08/18 15:15 01/07/19 15:14 Nitroglycerin (Ntg) 0.4 mg Q5M PRN SL Prn Chest Pain 12/25/18 16:55 01/24/19 16:54 12/30/18 15:51 Ondansetron HCl (Zofran ODT) 4 mg Q4H PRN ORAL Nausea & Vomiting 12/07/18 10:00 01/06/19 09:59 12/16/18 15:20 Polyethylene Glycol (Miralax) 17 gm DAILYPRN PRN ORAL Constipation 12/28/18 19:00 4/26/19 18:59 12/29/18 07:58 Allergies: Coded Allergies: No Known Allergies (Verified , 09/12/10) ROS Limited/Unobtainable: No Constitutional: Reports: no symptoms HEENT: Reports: no symptoms Cardiovascular: Reports: no symptoms Respiratory: Reports: no symptoms Gastrointestinal/Abdominal: Reports: no symptoms Genitourinary: Reports: no symptoms Neurologic/Psychiatric: Reports: no symptoms Subjective 78 YO M admitted with chest pain. Now pancytopenia and UTI. Cover for Int Med- Dr Hunter. Objective Last Vital Signs Date Time Temp Pulse Resp B/P (MAP) Pulse Ox O2 Delivery O2 Flow Rate FiO2 12/31/18 12:00 98.6 70 18 148/72 (97) 100 12/31/18 08:30 Room Air 12/29/18 15:43 2.0 28 Intake and Output 12/30/18 12/31/18 18:59 06:59 Intake Total 900 ml 240 ml Output Total 900 ml 300 ml Balance 0 ml -60 ml Intake Oral 900 ml 240 ml Output Urine Total 900 ml 300 ml # Voids 2 1 Objective PHYSICAL EXAMINATION: GENERAL: The patient awake, responsive, no acute distress. HEAD AND NECK: Pupils are equal and reactive to light. Extraocular movements are intact. Neck was supple. No JVD LUNGS: Good air entry. No wheeze or rales. HEART: S1, S2. Distant heart sounds. No murmur or gallops. Pacemaker in left-sided chest wall. ABDOMEN: Soft, nondistended, nontender. EXTREMITIES: No cyanosis, clubbing, edema. Varicose veins, bilateral lower extremities. NEUROLOGIC: Cranial nerves II through XII grossly intact. Motor is 5/5 in all extremities. Gait is intact. RECTAL: Refused and deferred. GENITOURINARY: Refused and deferred. PSYCHIATRIC: Mood and affect is depressed. Assessment/Plan Assessment/Plan ASSESSMENT: 1. Chest pain, possible acute coronary syndrome. 2. Hypertension. 3. Dyslipidemia. 4. Congestive heart failure. 5. Coronary artery disease. 6. Sick sinus syndrome, status pacemaker. 7. UTI. 8. Pancytopenia; S/P transfusion 5 units PRBC total-Severe anemia, Thrombocytopenia and leukopenia-?leukemia? see onc note. PLAN: Admit the patient to telemetry. Discussed case with Dr. Gee from Cardiology Electrophysiology. Await cardiac nuclear stress test-outpatient Dr. Luong, Pulmonary Critical Care. Urine cult=E. Coli. S/P Rocephin. DVT prophylaxis, heparin subcutaneous. Code status, Full Code. The patient is expected to be in the hospital greater than 2 days Discharge paln: [facility] S/P transfusion 2 units PRBC on 11/19/18 See Hematology consult-?acute myelocytic leukemia? Discharge to [facility]-see social work note Nikhil West MD Dec 31, 2018 16:23
[2018-12-31 20:00] VITALS: BP 108/58
[2018-12-31] MEDS: Atorvastatin 20mg tab ORAL SCH (21:06)
[2019-01-01] VITALS: BP 141/75
[2019-01-01] MEDS: Morphine Sulfate 2mg/ml Inj(IV/IM USE ONLY) IM PRN ×5 (01:32→21:24)
[2019-01-01 04:00] VITALS: BP 131/60
[2019-01-01 08:00] VITALS: BP 125/58
[2019-01-01] MEDS: Carvedilol 12.5mg tab ORAL SCH ×2 (08:20→20:25)
--- NOTE | 2019-01-01 08:20 | General Progress Note ---
Assessment/Plan Problem List: (1) History of CVA (cerebrovascular accident) ICD Codes: Z86.73 - Personal history of transient ischemic attack (TIA), and cerebral infarction without residual deficits SNOMED: 329889399 (2) Cardiomyopathy ICD Codes: I42.9 - Cardiomyopathy, unspecified SNOMED: 93008906 (3) Hypothyroidism ICD Codes: E03.9 - Hypothyroidism, unspecified SNOMED: 16737389 (4) HTN (hypertension) ICD Codes: I10 - Essential (primary) hypertension SNOMED: 83600707 (5) Severe thrombocytopenia ICD Codes: D69.6 - Thrombocytopenia, unspecified SNOMED: 714962522 (6) Anxiety disorder ICD Codes: F41.9 - Anxiety disorder, unspecified SNOMED: 505222954 (7) Severe anemia ICD Codes: D64.9 - Anemia, unspecified SNOMED: 629670518 (8) GERD (gastroesophageal reflux disease) ICD Codes: K21.9 - Gastro-esophageal reflux disease without esophagitis SNOMED: 419424226 (9) Pacemaker ICD Codes: Z95.0 - Presence of cardiac pacemaker SNOMED: 62699182, 994677752, 764217798 Assessment/Plan SUMMARY OF FINDINGS: 1. Gastritis. 2. A 6 cm hiatal hernia. RECOMMENDATIONS: Follow up biopsy results and treat accordingly. >> Mild chronic gastritis. Negative for H. pylori negative negative for dysplasia or malignancy. BM biopsy>> leukemia>> fu oncology monitor H&H, prn transfusions. bowel regime ppi, H2B qhs Zofran as needed fu labs Outpatient hep C treatment dc planning Subjective ROS Limited/Unobtainable: No Allergies: Coded Allergies: No Known Allergies (Verified , 09/12/10) Objective Last 24 Hour Vital Signs Date Time Temp Pulse Resp B/P (MAP) Pulse Ox O2 Delivery O2 Flow Rate FiO2 01/01/19 04:00 97.5 64 18 131/60 (83) 100 01/01/19 00:00 97.3 67 18 141/75 (97) 100 12/31/18 21:00 67 108/58 12/31/18 21:00 Room Air 12/31/18 20:00 98.3 67 18 108/58 (75) 100 12/31/18 16:00 98.7 62 19 99/52 (68) 100 12/31/18 12:00 98.6 70 18 148/72 (97) 100 12/31/18 09:11 64 121/52 12/31/18 08:30 Room Air Intake and Output 12/31/18 01/01/19 19:00 07:00 Intake Total 900 ml Output Total 600 ml 200 ml Balance 300 ml -200 ml Intake Oral 900 ml Output Urine Total 600 ml 200 ml # Voids 2 Height (Feet): 5 Height (Inches): 5.00 Weight (Pounds): 142 General Appearance: no apparent distress EENT: normal ENT inspection Neck: supple Cardiovascular: normal rate Respiratory/Chest: decreased breath sounds Abdomen: normal bowel sounds, non tender, soft Extremities: non-tender Richie Mcguire MD Jan 01, 2019 08:20
[2019-01-01 12:00] VITALS: BP 133/58
--- NOTE | 2019-01-01 13:08 | Pulmonology Progress Note ---
Assessment/Plan Problems: (1) Myeloblastic leukemia (2) Severe thrombocytopenia (3) ACS (acute coronary syndrome) (4) Cardiomyopathy (5) HTN (hypertension) (6) Pacemaker (7) Hypothyroidism (8) CAD (coronary artery disease) Assessment/Plan no new complains doing better, still nauseous on fentNAYL PACH, pain better controlled dc all oral analgesics and try Fentanyl Patch doing better early leukemia check electrolytes no malignancy in bone marrow symptomatic treatment pain better controlled dc planning Subjective ROS Limited/Unobtainable: No Constitutional: Reports: no symptoms HEENT: Repors: no symptoms Allergies: Coded Allergies: No Known Allergies (Verified , 09/12/10) Objective Last 24 Hour Vital Signs Date Time Temp Pulse Resp B/P (MAP) Pulse Ox O2 Delivery O2 Flow Rate FiO2 01/01/19 12:00 98.2 65 20 133/58 (83) 100 01/01/19 11:48 97.9 01/01/19 09:11 Room Air 01/01/19 08:20 67 125/58 01/01/19 08:00 97.9 67 20 125/58 (80) 100 01/01/19 04:00 97.5 64 18 131/60 (83) 100 01/01/19 00:00 97.3 67 18 141/75 (97) 100 12/31/18 21:00 67 108/58 12/31/18 21:00 Room Air 12/31/18 20:00 98.3 67 18 108/58 (75) 100 12/31/18 16:00 98.7 62 19 99/52 (68) 100 Intake and Output 12/31/18 01/01/19 19:00 07:00 Intake Total 900 ml Output Total 600 ml 200 ml Balance 300 ml -200 ml Intake Oral 900 ml Output Urine Total 600 ml 200 ml # Voids 2 Objective General Appearance: cachetic Lines, tubes and drains: peripheral HEENT: normocephalic, atraumatic Neck: non-tender, normal alignment Respiratory/Chest: chest wall non-tender, lungs clear Breasts: no masses Cardiovascular/Chest: normal peripheral pulses, normal rate Abdomen: normal bowel sounds, non tender Genitourinary/Rectal: normal genital exam Extremities: normal range of motion Skin Exam: normal pigmentation 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 Current Medications Medications (Trade) Dose Ordered Sig/Scout Route PRN Reason Start Time Stop Time Status Last Admin Dose Admin Atorvastatin Calcium (Lipitor) 40 mg QHS ORAL 12/19/18 21:00 01/18/19 20:59 12/31/18 21:06 Carvedilol (Coreg) 12.5 mg EVERY 12 HOURS ORAL 12/19/18 09:00 01/18/19 08:59 01/01/19 08:20 Clonidine HCl (Catapres Tab) 0.1 mg Q2H PRN ORAL For High Blood Pressure 12/06/18 21:15 01/05/19 21:14 12/07/18 08:25 Docusate Sodium (Colace) 100 mg Q12H PRN ORAL Constipation 12/18/18 21:45 01/17/19 21:29 12/29/18 07:58 Fentanyl (Duragesic) 1 patch Q72H TDERMAL 01/01/19 18:00 01/08/19 17:59 Furosemide (Lasix) 20 mg DAILY ORAL 12/19/18 17:45 01/18/19 17:44 01/01/19 08:19 Miscellaneous Medication (fentaNYL Destruction) 1 ea Q72H MISC 01/01/19 17:59 01/31/19 17:58 Morphine Sulfate (Morphine Sulfate) 2 mg Q4H PRN IM Severe Pain (Pain Scale 7-10) 12/30/18 08:30 01/06/19 08:29 01/01/19 11:18 Naloxone HCl (Narcan) 0.1 mg PRN IV Sedation scale 3 or 4 12/08/18 15:15 01/07/19 15:14 Nitroglycerin (Ntg) 0.4 mg Q5M PRN SL Prn Chest Pain 12/25/18 16:55 01/24/19 16:54 12/30/18 15:51 Ondansetron HCl (Zofran ODT) 4 mg Q4H PRN ORAL Nausea & Vomiting 12/07/18 10:00 01/06/19 09:59 12/16/18 15:20 Polyethylene Glycol (Miralax) 17 gm DAILYPRN PRN ORAL Constipation 12/28/18 19:00 01/27/19 18:59 12/29/18 07:58 Chepe Luong MD Jan 01, 2019 13:08
--- NOTE | 2019-01-01 14:34 | Internal Med Progress Note ---
Subjective Date of Service: Jan 01, 2019 Physician Name Nikhil West Attending Physician Abdias Hunter MD Current Medications Medications (Trade) Dose Ordered Sig/Scout Route PRN Reason Start Time Stop Time Status Last Admin Dose Admin Atorvastatin Calcium (Lipitor) 40 mg QHS ORAL 12/19/18 21:00 01/18/19 20:59 12/31/18 21:06 Carvedilol (Coreg) 12.5 mg EVERY 12 HOURS ORAL 12/19/18 09:00 01/18/19 08:59 01/01/19 08:20 Clonidine HCl (Catapres Tab) 0.1 mg Q2H PRN ORAL For High Blood Pressure 12/06/18 21:15 01/05/19 21:14 12/07/18 08:25 Docusate Sodium (Colace) 100 mg Q12H PRN ORAL Constipation 12/18/18 21:45 01/17/19 21:29 12/29/18 07:58 Fentanyl (Duragesic) 1 patch Q72H TDERMAL 01/01/19 18:00 01/08/19 17:59 Furosemide (Lasix) 20 mg DAILY ORAL 12/19/18 17:45 01/18/19 17:44 01/01/19 08:19 Miscellaneous Medication (fentaNYL Destruction) 1 ea Q72H MISC 01/01/19 17:59 01/31/19 17:58 Morphine Sulfate (Morphine Sulfate) 2 mg Q4H PRN IM Severe Pain (Pain Scale 7-10) 12/30/18 08:30 01/06/19 08:29 01/01/19 11:18 Naloxone HCl (Narcan) 0.1 mg PRN IV Sedation scale 3 or 4 12/08/18 15:15 01/07/19 15:14 Nitroglycerin (Ntg) 0.4 mg Q5M PRN SL Prn Chest Pain 12/25/18 16:55 01/24/19 16:54 12/30/18 15:51 Ondansetron HCl (Zofran ODT) 4 mg Q4H PRN ORAL Nausea & Vomiting 12/07/18 10:00 01/06/19 09:59 12/16/18 15:20 Polyethylene Glycol (Miralax) 17 gm DAILYPRN PRN ORAL Constipation 12/28/18 19:00 01/27/19 18:59 12/29/18 07:58 Allergies: Coded Allergies: No Known Allergies (Verified , 09/12/10) ROS Limited/Unobtainable: No Constitutional: Reports: no symptoms HEENT: Reports: no symptoms Cardiovascular: Reports: no symptoms Respiratory: Reports: no symptoms Gastrointestinal/Abdominal: Reports: no symptoms Genitourinary: Reports: no symptoms Neurologic/Psychiatric: Reports: no symptoms Subjective 78 YO M admitted with chest pain. Now pancytopenia and UTI. Cover for Int Med- Dr Hunter. Objective Last Vital Signs Date Time Temp Pulse Resp B/P (MAP) Pulse Ox O2 Delivery O2 Flow Rate FiO2 01/01/19 12:00 98.2 65 20 133/58 (83) 100 01/01/19 09:11 Room Air 12/29/18 15:43 2.0 28 Intake and Output 12/31/18 01/01/19 19:00 07:00 Intake Total 900 ml Output Total 600 ml 200 ml Balance 300 ml -200 ml Intake Oral 900 ml Output Urine Total 600 ml 200 ml # Voids 2 Objective PHYSICAL EXAMINATION: GENERAL: The patient awake, responsive, no acute distress. HEAD AND NECK: Pupils are equal and reactive to light. Extraocular movements are intact. Neck was supple. No JVD LUNGS: Good air entry. No wheeze or rales. HEART: S1, S2. Distant heart sounds. No murmur or gallops. Pacemaker in left-sided chest wall. ABDOMEN: Soft, nondistended, nontender. EXTREMITIES: No cyanosis, clubbing, edema. Varicose veins, bilateral lower extremities. NEUROLOGIC: Cranial nerves II through XII grossly intact. Motor is 5/5 in all extremities. Gait is intact. RECTAL: Refused and deferred. GENITOURINARY: Refused and deferred. PSYCHIATRIC: Mood and affect is depressed. Assessment/Plan Assessment/Plan ASSESSMENT: 1. Chest pain, possible acute coronary syndrome. 2. Hypertension. 3. Dyslipidemia. 4. Congestive heart failure. 5. Coronary artery disease. 6. Sick sinus syndrome, status pacemaker. 7. UTI. 8. Pancytopenia; S/P transfusion 5 units PRBC total-Severe anemia, Thrombocytopenia and leukopenia-?leukemia? see onc note. PLAN: Admit the patient to telemetry. Discussed case with Dr. Gee from Cardiology Electrophysiology. Await cardiac nuclear stress test-outpatient Dr. Luong, Pulmonary Critical Care. Urine cult=E. Coli. S/P Rocephin. DVT prophylaxis, heparin subcutaneous. Code status, Full Code. The patient is expected to be in the hospital greater than 2 days Discharge paln: [facility] S/P transfusion 2 units PRBC on 11/19/18 See Hematology consult-?acute myelocytic leukemia? Discharge to [facility]-see social work note Nikhil West MD Jan 01, 2019 14:34
[2019-01-01 16:00] VITALS: BP 119/52
[2019-01-01] MEDS: fentaNYL Destruction MISC SCH (17:28)
[2019-01-01 20:00] VITALS: BP 126/60
[2019-01-01] MEDS: Atorvastatin 20mg tab ORAL SCH (20:25)
[2019-01-02] VITALS: BP 131/64
[2019-01-02] MEDS: Morphine Sulfate 2mg/ml Inj(IV/IM USE ONLY) IM PRN ×6 (01:35→21:57)
[2019-01-02 04:00] VITALS: BP 119/63
[2019-01-02] MEDS: Carvedilol 12.5mg tab ORAL SCH ×2 (08:37→20:50)
[2019-01-02 09:00] VITALS: BP 112/51
--- NOTE | 2019-01-02 10:45 | GI Progress Note ---
Assessment/Plan Problems: (1) History of CVA (cerebrovascular accident) ICD Codes: Z86.73 - Personal history of transient ischemic attack (TIA), and cerebral infarction without residual deficits SNOMED: 336220734 (2) Severe anemia ICD Codes: D64.9 - Anemia, unspecified SNOMED: 487706977 (3) Abdominal pain ICD Codes: R10.9 - Unspecified abdominal pain SNOMED: 90712602 (4) GERD (gastroesophageal reflux disease) ICD Codes: K21.9 - Gastro-esophageal reflux disease without esophagitis SNOMED: 109893353 Status: stable Status Narrative Discussed with Dr. Mcguire Assessment/Plan SUMMARY OF FINDINGS: 1. Gastritis. 2. A 6 cm hiatal hernia. RECOMMENDATIONS: Follow up biopsy results and treat accordingly. >> Mild chronic gastritis. Negative for H. pylori negative negative for dysplasia or malignancy. BM biopsy>> leukemia>> fu oncology monitor H&H, prn transfusions. bowel regime ppi, H2B qhs Zofran as needed fu labs Outpatient hep C treatment dc planning The patient was seen and examined at bedside and all new and available data was reviewed in the patients chart. I agree with the above findings, impression and plan. (Patient seen earlier today. Signature stamp does not reflect patient encounter time.). - Richie Mcguire MD Subjective Subjective Denies any abdominal pain Denies any constipation or diarrhea Tolerating diet Denies any nausea vomiting Objective Last 24 Hour Vital Signs Date Time Temp Pulse Resp B/P (MAP) Pulse Ox O2 Delivery O2 Flow Rate FiO2 01/02/19 09:14 Room Air 01/02/19 09:00 98.4 65 18 112/51 (71) 100 01/02/19 04:00 97.4 65 18 119/63 (81) 100 01/02/19 00:00 98.6 64 17 131/64 (86) 98 01/01/19 21:00 Room Air 01/01/19 20:25 70 126/60 01/01/19 20:00 98.9 70 17 126/60 (82) 100 01/01/19 17:55 98.5 01/01/19 17:55 98.5 01/01/19 16:00 98.5 64 20 119/52 (74) 100 01/01/19 12:00 98.2 65 20 133/58 (83) 100 Intake and Output 3/31/19 4/1/19 19:00 07:00 Intake Total 650 ml 360 ml Balance 650 ml 360 ml Intake Oral 360 ml Other 650 ml # Voids 2 Height (Feet): 5 Height (Inches): 5.00 Weight (Pounds): 143 General Appearance: WD/WN, no apparent distress, alert Cardiovascular: normal rate Respiratory/Chest: normal breath sounds, no respiratory distress Abdominal Exam: normal bowel sounds, non tender, soft Extremities: normal range of motion, non-tender Jason Gray SURVIV[employer] EQUIPMENT REPAIRER Jan 02, 2019 10:45
[2019-01-02 12:00] VITALS: BP 119/51
--- NOTE | 2019-01-02 12:28 | Pulmonology Progress Note ---
Assessment/Plan Problems: (1) Myeloblastic leukemia (2) Severe thrombocytopenia (3) ACS (acute coronary syndrome) (4) Cardiomyopathy (5) HTN (hypertension) (6) Pacemaker (7) Hypothyroidism (8) CAD (coronary artery disease) Assessment/Plan no new complains doing better, on fentNAYL PACH, pain better controlled dc all oral analgesics and try Fentanyl Patch doing better early leukemia check electrolytes no malignancy in bone marrow symptomatic treatment pain better controlled dc planning Subjective ROS Limited/Unobtainable: No Constitutional: Reports: no symptoms HEENT: Repors: no symptoms Respiratory: Reports: no symptoms Allergies: Coded Allergies: No Known Allergies (Verified , 09/12/10) Objective Last 24 Hour Vital Signs Date Time Temp Pulse Resp B/P (MAP) Pulse Ox O2 Delivery O2 Flow Rate FiO2 01/02/19 10:15 98.4 01/02/19 09:14 Room Air 01/02/19 09:00 98.4 65 18 112/51 (71) 100 01/02/19 04:00 97.4 65 18 119/63 (81) 100 01/02/19 00:00 98.6 64 17 131/64 (86) 98 01/01/19 21:00 Room Air 01/01/19 20:25 70 126/60 01/01/19 20:00 98.9 70 17 126/60 (82) 100 01/01/19 17:55 98.5 01/01/19 16:00 98.5 64 20 119/52 (74) 100 Intake and Output 01/01/19 01/02/19 19:00 07:00 Intake Total 650 ml 360 ml Balance 650 ml 360 ml Intake Oral 360 ml Other 650 ml # Voids 2 Objective General Appearance: cachetic Lines, tubes and drains: peripheral HEENT: normocephalic, atraumatic Neck: non-tender, normal alignment Respiratory/Chest: chest wall non-tender, lungs clear Breasts: no masses Cardiovascular/Chest: normal peripheral pulses, normal rate Abdomen: normal bowel sounds, non tender Genitourinary/Rectal: normal genital exam Extremities: normal range of motion Skin Exam: normal pigmentation 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 Current Medications Medications (Trade) Dose Ordered Sig/Scout Route PRN Reason Start Time Stop Time Status Last Admin Dose Admin Atorvastatin Calcium (Lipitor) 40 mg QHS ORAL 12/19/18 21:00 01/18/19 20:59 01/01/19 20:25 Carvedilol (Coreg) 12.5 mg EVERY 12 HOURS ORAL 12/19/18 09:00 01/18/19 08:59 01/01/19 20:25 Clonidine HCl (Catapres Tab) 0.1 mg Q2H PRN ORAL For High Blood Pressure 12/06/18 21:15 01/05/19 21:14 12/07/18 08:25 Docusate Sodium (Colace) 100 mg Q12H PRN ORAL Constipation 12/18/18 21:45 01/17/19 21:29 12/29/18 07:58 Fentanyl (Duragesic) 1 patch Q72H TDERMAL 01/01/19 18:00 01/08/19 17:59 01/01/19 17:28 Furosemide (Lasix) 20 mg DAILY ORAL 12/19/18 17:45 01/18/19 17:44 01/02/19 08:37 Miscellaneous Medication (fentaNYL Destruction) 1 ea Q72H MISC 01/01/19 17:59 01/31/19 17:58 01/01/19 17:28 Morphine Sulfate (Morphine Sulfate) 2 mg Q4H PRN IM Severe Pain (Pain Scale 7-10) 12/30/18 08:30 01/06/19 08:29 01/02/19 09:45 Naloxone HCl (Narcan) 0.1 mg PRN IV Sedation scale 3 or 4 12/08/18 15:15 01/07/19 15:14 Nitroglycerin (Ntg) 0.4 mg Q5M PRN SL Prn Chest Pain 12/25/18 16:55 01/24/19 16:54 12/30/18 15:51 Ondansetron HCl (Zofran ODT) 4 mg Q4H PRN ORAL Nausea & Vomiting 12/07/18 10:00 01/06/19 09:59 12/16/18 15:20 Polyethylene Glycol (Miralax) 17 gm DAILYPRN PRN ORAL Constipation 12/28/18 19:00 01/27/19 18:59 12/29/18 07:58 Chepe Luong MD Jan 02, 2019 12:28
--- NOTE | 2019-01-02 13:49 | General Progress Note ---
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+++ --> bone marrow bipsy/aspiration report reviewed and concerning for LEUKEMIA with 8.7% myeloblasts --> Continue to monitor for improvement, trend cbc --> HIV is negative, but hep C++ --> US abd ordered to r/o cirrhosis and hsm and is negative for those --> reverse isolation if ANC is <2000 --> Give neupogen if ANC <1000 --> Transfuse if hgb <7, with 1 unit prbc --> hospice v treatment as per pcp recommendations and referral --> Hgb trend: 9-->8.7-->7.9-->7-->7.6-->7.4->8.1-->7.7-->6.5-->8.3-->7.7-->7.5 # Thrombocytopenia - potential causes multifactorial, evaluate liver and viral etiologies to begin, also could be related to underlying medications patient has received. --> Hep panel and HIV negative, hep C++++ --> US abd to evaluate for cirrhosis and hsm reviewed --> Peripheral smear ordered to evaluate for blasts /schistocytes is wnl --> abx and other meds have been reviewed --> ok for ppx if plt >50k w/ either heparin or lovenox --> Transfuse if Plt < 20k and fever, or if Plt < 10k without fever --->Plt trend 70-->65-->44-->86-->122-->88-->100k-->140k-->154k # Reticulocytosis with elevated bilirubin that is indirect --> reviewed direct and indirect bilis again, trend could have liver disease --> liver US shows no significant cirrhosis --> evaluate as needed with gi team, recs apprecaited #. Chest pain, possible acute coronary syndrome. --> cards recs appreciated as well as pulm --> stress test prn # Hypertension. sbp goal <140 -- > as per cards recs # Dyslipidemia. # Chf # Coronary artery disease. # Sick sinus syndrome, status pacemaker. # Acute E. coli UTI s/p abx # Hep C+++ needs op management The timing of this note does not necessarily reflect the time of the patient was seen. Greatly appreciate consultation! Subjective Constitutional: Denies: no symptoms, chills, diaphoresis, fever, malaise, weakness, other HEENT: Denies: no symptoms, eye pain, blurred vision, tearing, double vision, ear pain, ear discharge, nose pain, nose congestion, throat pain, throat swelling, mouth pain, mouth swelling, other Cardiovascular: Denies: no symptoms, chest pain, edema, irregular heart rate, lightheadedness, palpitations, syncope, other Respiratory: Denies: no symptoms, cough, orthopnea, shortness of breath, SOB with excertion, SOB at rest, sputum, stridor, wheezing, other Gastrointestinal/Abdominal: Denies: no symptoms, abdomen distended, abdominal pain, black stools, tarry stools, blood in stool, constipated, diarrhea, difficulty swallowing, nausea, poor appetite, poor fluid intake, rectal bleeding , vomiting, other Genitourinary: Denies: no symptoms, burning, discharge, frequency, flank pain, hematuria, incontinence, pain, urgency, other Neurologic/Psychiatric: Denies: no symptoms, anxiety, depressed, emotional problems, headache, numbness, paresthesia, pre-existing deficit, seizure, tingling, tremors, weakness, other Endocrine: Denies: no symptoms, excessive sweating, flushing, intolerance to cold, intolerance to heat, increased hunger, increased thirst, increased urine, unexplained weight gain, unexplained weight loss, other Allergies: Coded Allergies: No Known Allergies (Verified , 09/12/10) Subjective 11/27: no events to report, no f/c 11/28: seen by bedside, plt 65, plan for EGD and bone marrow biopsy tomorrow 11/29: BM biopsy today, no acute distress. 11/30: Had BM biopsy yesterday and now in reverse isolation. hgb 7.5, will transfuse as needed. 2/28: seen by bedside, plt remains low, awaiting bone marrow biopsy results. 12/02: No acute distress, no chest pain, no shortness of breath, wbc 2.7, hgb 7.3 , plt 50, will transfuse as needed. S/P BM biopsy 11/29/18, Results pending 12/04: bone marrow biopsy completed, and show myeloblasts, c/w mds/leukemia, requires close surveillance 12/05: hgb 6.9, Had blood transfusion today, plt up trending, no events 12/06: Seen by bedside, overall improved, still has complaint of chest pain, plt trending up 12/07: Given 1 unit prbc, continues to c/o chest pain, seen by cards 12/08: seen by bedside, complains of pain, plt 106, no events 12/09: awake, comfortable, plt trending down at 69, no events 12/11: awake, comfortable, on NC, plt remains low at 70. 12/12: awake, comfortable, plt 65, no events 12/13: seen by bedside, awake , comfortable, pending labs. 12/14: awake, comfortable, hgb 7.9, monitor, will transfuse as needed, plt trending down at 44, 12/15: seen by bedside, awake, comfortable, hgb 7, will transfuse as needed, plt 82. 12/16: awake comfortable, no events, hgb trending up 12/18: seen by bedside, alert, oriented, no acute distress 12/19: no events noted, no fevers or chills, cbc has been reviewed, had blasts on smear this wknd 12/20: seen by bedside, awake, comfortable, hgb 7.4, will transfuse as needed. 12/21: No overnight events reported, comfortable, hgb 8.1 12/22: no events to report, remains nausous, the platelet count has improved on its own 12/23: awaiting placement to snf at this time, following with lawrence, pulm 12/24: on 2l nc, received morphine today by rn, complaining of pain 12/25: no events today, no f/c, labs reviewed 12/26: no events report, will get one unit prbc today, has been ordered 12/27: hgb stable/improved but is after transfusion, no events otherwise no fevers 12/28: no events, feeling overall better 12/29: this am comfortable and sleeping, no events, cbc reviewed, no issues noted 12/30: no events to report, no night sweats, anemia panel reviewed 01/02: awake, alert, bed in lowest position Objective Last 24 Hour Vital Signs Date Time Temp Pulse Resp B/P (MAP) Pulse Ox O2 Delivery O2 Flow Rate FiO2 01/02/19 12:00 98.8 63 18 119/51 (73) 100 01/02/19 10:15 98.4 01/02/19 09:14 Room Air 01/02/19 09:00 98.4 65 18 112/51 (71) 100 01/02/19 04:00 97.4 65 18 119/63 (81) 100 01/02/19 00:00 98.6 64 17 131/64 (86) 98 01/01/19 21:00 Room Air 01/01/19 20:25 70 126/60 01/01/19 20:00 98.9 70 17 126/60 (82) 100 01/01/19 17:55 98.5 01/01/19 16:00 98.5 64 20 119/52 (74) 100 Intake and Output 01/01/19 01/02/19 19:00 07:00 Intake Total 650 ml 360 ml Balance 650 ml 360 ml Intake Oral 360 ml Other 650 ml # Voids 2 Height (Feet): 5 Height (Inches): 5.00 Weight (Pounds): 143 Objective General: well appearing, nad, alert Head: normocephalic, atraumatic Eyes: b/l eye PERRL, bilateral eye EOMI ENT: hearing grossly normal, normal pharynx Neck: full range of motion, supple, no meningismus Respiratory: chest non-tender, lungs clear, normal BSs, NC++ CV: regular rate, rhythm, no murmur GI: normal bowel sounds, non tender, no mass MSK: back normal, normal range of motion Psychiatric: mood/affect normal Skin: warm/dry Jose Alberto España MD Jan 02, 2019 13:49
[2019-01-02 16:00] VITALS: BP 111/60
--- NOTE | 2019-01-02 16:27 | Cardiac Electrophysiology PN ---
Assessment/Plan Assessment/Plan 1. Atypical chest pain in a pt s/p CABG. Likely due to severe anemia. Ruled out [place]. Hold off on stress test in view of acute leukemia On Lipitor and Coreg. Off Aspirin and Plavix for thrombocytopenia 2. Cardiomyopathy. EF now 55%. On Coreg 12.5 mg bid and Lasix 20 daily 3. Status post [facility] atriobiventricular defibrillator. Interrogated and showed Nl Fx 4. Severe anemia, S/P multiple PRBC and platelet transfusions . 5. Pancytopenia. Off Aspirin and PLavix S/P platelet and PRBC transfusion. S/P BM biopsy 11/29/18 that confirmed Leukemia FU by Dr Stock 6. Placement DW RN Subjective Subjective No CP or SOB. Very weak. RN at bedside placeing new IV Objective Last 24 Hour Vital Signs Date Time Temp Pulse Resp B/P (MAP) Pulse Ox O2 Delivery O2 Flow Rate FiO2 01/02/19 14:25 98.8 01/02/19 12:00 98.8 63 18 119/51 (73) 100 01/02/19 09:14 Room Air 01/02/19 09:00 98.4 65 18 112/51 (71) 100 01/02/19 04:00 97.4 65 18 119/63 (81) 100 01/02/19 00:00 98.6 64 17 131/64 (86) 98 01/01/19 21:00 Room Air 01/01/19 20:25 70 126/60 01/01/19 20:00 98.9 70 17 126/60 (82) 100 01/01/19 17:55 98.5 Intake and Output 01/01/19 01/02/19 19:00 07:00 Intake Total 650 ml 360 ml Balance 650 ml 360 ml Intake Oral 360 ml Other 650 ml # Voids 2 Objective HEAD AND NECK: No JVD. LUNGS: Coarse rhonchi. CARDIOVASCULAR: Regular S1 and S2 with no gallop or murmur. Sternotomy intact. ICD in left subclavian. ABDOMEN: Soft. EXTREMITIES: 1+ pitting edema. Satinder Gee MD Jan 02, 2019 16:27
--- NOTE | 2019-01-02 18:38 | Internal Med Progress Note ---
Subjective Date of Service: Jan 02, 2019 Physician Name Nikhil West Attending Physician Abdias Hunter MD Current Medications Medications (Trade) Dose Ordered Sig/Scout Route PRN Reason Start Time Stop Time Status Last Admin Dose Admin Atorvastatin Calcium (Lipitor) 40 mg QHS ORAL 12/19/18 21:00 01/18/19 20:59 01/01/19 20:25 Carvedilol (Coreg) 12.5 mg EVERY 12 HOURS ORAL 12/19/18 09:00 01/18/19 08:59 01/01/19 20:25 Clonidine HCl (Catapres Tab) 0.1 mg Q2H PRN ORAL For High Blood Pressure 12/06/18 21:15 01/05/19 21:14 12/07/18 08:25 Docusate Sodium (Colace) 100 mg Q12H PRN ORAL Constipation 12/18/18 21:45 01/17/19 21:29 12/29/18 07:58 Fentanyl (Duragesic) 1 patch Q72H TDERMAL 01/01/19 18:00 01/08/19 17:59 01/01/19 17:28 Furosemide (Lasix) 20 mg DAILY ORAL 12/19/18 17:45 01/18/19 17:44 01/02/19 08:37 Miscellaneous Medication (fentaNYL Destruction) 1 ea Q72H MISC 01/01/19 17:59 01/31/19 17:58 01/01/19 17:28 Morphine Sulfate (Morphine Sulfate) 2 mg Q4H PRN IM Severe Pain (Pain Scale 7-10) 12/30/18 08:30 01/06/19 08:29 01/02/19 17:54 Naloxone HCl (Narcan) 0.1 mg PRN IV Sedation scale 3 or 4 12/08/18 15:15 01/07/19 15:14 Nitroglycerin (Ntg) 0.4 mg Q5M PRN SL Prn Chest Pain 12/25/18 16:55 01/24/19 16:54 12/30/18 15:51 Ondansetron HCl (Zofran ODT) 4 mg Q4H PRN ORAL Nausea & Vomiting 12/07/18 10:00 01/06/19 09:59 12/16/18 15:20 Polyethylene Glycol (Miralax) 17 gm DAILYPRN PRN ORAL Constipation 12/28/18 19:00 01/27/19 18:59 12/29/18 07:58 Allergies: Coded Allergies: No Known Allergies (Verified , 09/12/10) ROS Limited/Unobtainable: No Constitutional: Reports: no symptoms HEENT: Reports: no symptoms Cardiovascular: Reports: no symptoms Respiratory: Reports: no symptoms Gastrointestinal/Abdominal: Reports: no symptoms Genitourinary: Reports: no symptoms Neurologic/Psychiatric: Reports: no symptoms Subjective 78 YO M admitted with chest pain. Now pancytopenia and UTI. Cover for Int Med- Dr Hunter. Objective Last Vital Signs Date Time Temp Pulse Resp B/P (MAP) Pulse Ox O2 Delivery O2 Flow Rate FiO2 01/02/19 18:24 98.6 01/02/19 16:00 64 18 111/60 (77) 100 01/02/19 09:14 Room Air 12/29/18 15:43 2.0 28 Intake and Output 01/01/19 01/02/19 19:00 07:00 Intake Total 650 ml 360 ml Balance 650 ml 360 ml Intake Oral 360 ml Other 650 ml # Voids 2 Objective PHYSICAL EXAMINATION: GENERAL: The patient awake, responsive, no acute distress. HEAD AND NECK: Pupils are equal and reactive to light. Extraocular movements are intact. Neck was supple. No JVD LUNGS: Good air entry. No wheeze or rales. HEART: S1, S2. Distant heart sounds. No murmur or gallops. Pacemaker in left-sided chest wall. ABDOMEN: Soft, nondistended, nontender. EXTREMITIES: No cyanosis, clubbing, edema. Varicose veins, bilateral lower extremities. NEUROLOGIC: Cranial nerves II through XII grossly intact. Motor is 5/5 in all extremities. Gait is intact. RECTAL: Refused and deferred. GENITOURINARY: Refused and deferred. PSYCHIATRIC: Mood and affect is depressed. Assessment/Plan Assessment/Plan ASSESSMENT: 1. Chest pain, possible acute coronary syndrome. 2. Hypertension. 3. Dyslipidemia. 4. Congestive heart failure. 5. Coronary artery disease. 6. Sick sinus syndrome, status pacemaker. 7. UTI. 8. Pancytopenia; S/P transfusion 5 units PRBC total-Severe anemia, Thrombocytopenia and leukopenia-?leukemia? see onc note. PLAN: Admit the patient to telemetry. Discussed case with Dr. Gee from Cardiology Electrophysiology. Await cardiac nuclear stress test-outpatient Dr. Luong, Pulmonary Critical Care. Urine cult=E. Coli. S/P Rocephin. DVT prophylaxis, heparin subcutaneous. Code status, Full Code. The patient is expected to be in the hospital greater than 2 days Discharge paln: [facility] S/P transfusion 2 units PRBC on 11/19/18 See Hematology consult-?acute myelocytic leukemia? Discharge to [facility]-see social work note Nikhil West MD Jan 02, 2019 18:38
[2019-01-02 20:00] VITALS: BP 110/47
[2019-01-02] MEDS: Atorvastatin 20mg tab ORAL SCH (20:51)
[2019-01-02 22:21] LABS: APPEARANCE,URINE CLEAR; BILIRUBIN, URINE NEGATIVE (NEGATIVE); GLUCOSE, URINE (UA) NEGATIVE (NEGATIVE); KETONES,URINE NEGATIVE (NEGATIVE); LEUKOCYTE ESTERASE ,URINE NEGATIVE (NEGATIVE); NITRITE,URINE NEGATIVE (NEGATIVE); PH,URINE 7 (4.5-8.0); PROTEIN,URINE NEGATIVE (NEGATIVE); UROBILINOGEN,URINE 4 MG/DL (0.0-1.0)
[2019-01-02 22:28] LABS: COLOR,URINE YELLOW
[2019-01-03] VITALS: BP 108/50
[2019-01-03] MEDS: Morphine Sulfate 2mg/ml Inj(IV/IM USE ONLY) IM PRN ×5 (02:07→22:28)
[2019-01-03 04:00] VITALS: BP 117/50
[2019-01-03 06:58] LABS: ANION GAP 4 mmol/L (5-15); BLOOD UREA NITROGEN 20 mg/dL (7-18); CALCIUM 8.6 MG/DL (8.5-10.1); CARBON DIOXIDE 32 MMOL/L (21-32); CHLORIDE 99 MMOL/L (98-107); CREATININE 0.8 MG/DL (0.55-1.30); POTASSIUM 3.9 MMOL/L (3.5-5.1); SODIUM 135 MMOL/L (136-145)
[2019-01-03 07:12] LABS: HEMATOCRIT 22.2 % (42.0-52.0); HEMOGLOBIN 7.4 G/DL (14.2-18.0); MEAN CORPUSCULAR VOLUME 77 FL (80-99); PLATELET COUNT 78 K/UL (150-450); RED CELL DISTRIBUTION WIDTH 23.5 % (11.6-14.8); WHITE BLOOD COUNT 3.4 K/UL (4.8-10.8)
[2019-01-03 08:00] VITALS: BP 116/54
[2019-01-03] MEDS: Carvedilol 12.5mg tab ORAL SCH ×2 (08:45→20:15)
--- NOTE | 2019-01-03 10:24 | Cardiac Electrophysiology PN ---
Assessment/Plan Assessment/Plan 1. Atypical chest pain in a pt s/p CABG. Likely due to severe anemia. Ruled out [place]. Hold off on stress test in view of acute leukemia On Lipitor and Coreg. Off Aspirin and Plavix for thrombocytopenia 2. Cardiomyopathy. EF now 55%. On Coreg 12.5 mg bid and Lasix 20 daily 3. Status post [facility] atriobiventricular defibrillator. Interrogated and showed Nl Fx 4. Severe anemia, S/P multiple PRBC and platelet transfusions . 5. Pancytopenia. Off Aspirin and PLavix S/P platelet and PRBC transfusion. S/P BM biopsy 11/29/18 that confirmed Leukemia FU by Dr Stock 6. Placement DW RN Subjective Subjective No CP or SOB. No events. Very weak. Objective Last 24 Hour Vital Signs Date Time Temp Pulse Resp B/P (MAP) Pulse Ox O2 Delivery O2 Flow Rate FiO2 01/03/19 09:00 Room Air 01/03/19 08:45 67 116/54 01/03/19 08:00 98.5 65 20 116/54 (74) 97 01/03/19 04:00 98.9 60 15 117/50 (72) 100 01/03/19 00:00 99.1 62 18 108/50 (69) 99 01/02/19 21:00 Room Air 01/02/19 20:50 64 110/47 01/02/19 20:00 98.0 64 16 110/47 (68) 100 01/02/19 18:24 98.6 01/02/19 16:00 98.6 64 18 111/60 (77) 100 01/02/19 12:00 98.8 63 18 119/51 (73) 100 Intake and Output 01/02/19 01/03/19 19:00 07:00 Intake Total 720 ml Output Total 850 ml Balance 720 ml -850 ml Intake Oral 720 ml Output Urine Total 850 ml Laboratory Tests Test 01/02/19 22:00 01/03/19 05:43 Urine Color Yellow Urine Appearance Clear Urine pH 7 (4.5-8.0) Urine Specific [place] 1.010 (1.005-1.035) Urine Protein Negative (NEGATIVE) Urine Glucose (UA) Negative (NEGATIVE) Urine Ketones Negative (NEGATIVE) Urine Blood Negative (NEGATIVE) Urine Nitrite Negative (NEGATIVE) Urine Bilirubin Negative (NEGATIVE) Urine Urobilinogen 4 MG/DL (0.0-1.0) H Urine Leukocyte Esterase Negative (NEGATIVE) Urine RBC 0-2 /HPF (0 - 0) H Urine WBC 0-2 /HPF (0 - 0) Urine Squamous Epithelial Cells None /LPF (NONE/OCC) Urine Bacteria Few /HPF (NONE) White Blood Count 3.4 K/UL (4.8-10.8) L Red Blood Count 2.90 M/UL (4.70-6.10) L Hemoglobin 7.4 G/DL (14.2-18.0) L Hematocrit 22.2 % (42.0-52.0) L Mean Corpuscular Volume 77 FL (80-99) L Mean Corpuscular Hemoglobin 25.4 PG (27.0-31.0) L Mean Corpuscular Hemoglobin Concent 33.1 G/DL (32.0-36.0) Red Cell Distribution Width 23.5 % (11.6-14.8) H Platelet Count 78 K/UL (150-450) L Mean Platelet Volume 16.1 FL (6.5-10.1) H Neutrophils (%) (Auto) % (45.0-75.0) Lymphocytes (%) (Auto) % (20.0-45.0) Monocytes (%) (Auto) % (1.0-10.0) Eosinophils (%) (Auto) % (0.0-3.0) Basophils (%) (Auto) % (0.0-2.0) Differential Total Cells Counted 100 Neutrophils % (Manual) 16 % (45-75) L Lymphocytes % (Manual) 57 % (20-45) H Monocytes % (Manual) 24 % (1-10) H Eosinophils % (Manual) 3 % (0-3) Basophils % (Manual) 0 % (0-2) Band Neutrophils 0 % (0-8) Reactive Lymphocytes 1+ Platelet Estimate Decreased L Platelet Morphology Normal Hypochromasia 1+ Anisocytosis 2+ Acanthocytes 1+ Schistocytes 1+ Sodium Level 135 MMOL/L (136-145) L Potassium Level 3.9 MMOL/L (3.5-5.1) Chloride Level 99 MMOL/L (98-107) Carbon Dioxide Level 32 MMOL/L (21-32) Anion Gap 4 mmol/L (5-15) L Blood Urea Nitrogen 20 mg/dL (7-18) H Creatinine 0.8 MG/DL (0.55-1.30) Estimat Glomerular Filtration Rate mL/min (>60) Glucose Level 91 MG/DL (74-106) Calcium Level 8.6 MG/DL (8.5-10.1) Objective HEAD AND NECK: No JVD. LUNGS: Coarse rhonchi. CARDIOVASCULAR: Regular S1 and S2 with no gallop or murmur. Sternotomy intact. ICD in left subclavian. ABDOMEN: Soft. EXTREMITIES: 1+ pitting edema. Satinder Gee MD Jan 03, 2019 10:24
--- NOTE | 2019-01-03 11:26 | GI Progress Note ---
Assessment/Plan Problems: (1) History of CVA (cerebrovascular accident) ICD Codes: Z86.73 - Personal history of transient ischemic attack (TIA), and cerebral infarction without residual deficits SNOMED: 983895168 (2) Severe anemia ICD Codes: D64.9 - Anemia, unspecified SNOMED: 584555657 (3) Abdominal pain ICD Codes: R10.9 - Unspecified abdominal pain SNOMED: 43593724 (4) GERD (gastroesophageal reflux disease) ICD Codes: K21.9 - Gastro-esophageal reflux disease without esophagitis SNOMED: 745622452 Status: stable, unchanged Status Narrative Discussed with Dr. Mcguire Assessment/Plan SUMMARY OF FINDINGS: 1. Gastritis. 2. A 6 cm hiatal hernia. RECOMMENDATIONS: Follow up biopsy results and treat accordingly. >> Mild chronic gastritis. Negative for H. pylori negative negative for dysplasia or malignancy. BM biopsy>> leukemia>> fu oncology monitor H&H, prn transfusions. bowel regime ppi, H2B qhs Zofran as needed fu labs Outpatient hep C treatment dc planning The patient was seen and examined at bedside and all new and available data was reviewed in the patients chart. I agree with the above findings, impression and plan. (Patient seen earlier today. Signature stamp does not reflect patient encounter time.). - Richie Mcguire MD Subjective Subjective Denies any abdominal pain Denies any constipation or diarrhea Tolerating diet Denies any nausea vomiting Objective Last 24 Hour Vital Signs Date Time Temp Pulse Resp B/P (MAP) Pulse Ox O2 Delivery O2 Flow Rate FiO2 01/03/19 09:00 Room Air 01/03/19 08:45 67 116/54 01/03/19 08:00 98.5 65 20 116/54 (74) 97 01/03/19 04:00 98.9 60 15 117/50 (72) 100 01/03/19 00:00 99.1 62 18 108/50 (69) 99 01/02/19 21:00 Room Air 01/02/19 20:50 64 110/47 01/02/19 20:00 98.0 64 16 110/47 (68) 100 01/02/19 18:24 98.6 01/02/19 16:00 98.6 64 18 111/60 (77) 100 01/02/19 12:00 98.8 63 18 119/51 (73) 100 Intake and Output 01/02/19 01/03/19 19:00 07:00 Intake Total 720 ml Output Total 850 ml Balance 720 ml -850 ml Intake Oral 720 ml Output Urine Total 850 ml Laboratory Tests Test 01/02/19 22:00 01/03/19 05:43 Urine Color Yellow Urine Appearance Clear Urine pH 7 (4.5-8.0) Urine Specific [place] 1.010 (1.005-1.035) Urine Protein Negative (NEGATIVE) Urine Glucose (UA) Negative (NEGATIVE) Urine Ketones Negative (NEGATIVE) Urine Blood Negative (NEGATIVE) Urine Nitrite Negative (NEGATIVE) Urine Bilirubin Negative (NEGATIVE) Urine Urobilinogen 4 MG/DL (0.0-1.0) H Urine Leukocyte Esterase Negative (NEGATIVE) Urine RBC 0-2 /HPF (0 - 0) H Urine WBC 0-2 /HPF (0 - 0) Urine Squamous Epithelial Cells None /LPF (NONE/OCC) Urine Bacteria Few /HPF (NONE) White Blood Count 3.4 K/UL (4.8-10.8) L Red Blood Count 2.90 M/UL (4.70-6.10) L Hemoglobin 7.4 G/DL (14.2-18.0) L Hematocrit 22.2 % (42.0-52.0) L Mean Corpuscular Volume 77 FL (80-99) L Mean Corpuscular Hemoglobin 25.4 PG (27.0-31.0) L Mean Corpuscular Hemoglobin Concent 33.1 G/DL (32.0-36.0) Red Cell Distribution Width 23.5 % (11.6-14.8) H Platelet Count 78 K/UL (150-450) L Mean Platelet Volume 16.1 FL (6.5-10.1) H Neutrophils (%) (Auto) % (45.0-75.0) Lymphocytes (%) (Auto) % (20.0-45.0) Monocytes (%) (Auto) % (1.0-10.0) Eosinophils (%) (Auto) % (0.0-3.0) Basophils (%) (Auto) % (0.0-2.0) Differential Total Cells Counted 100 Neutrophils % (Manual) 16 % (45-75) L Lymphocytes % (Manual) 57 % (20-45) H Monocytes % (Manual) 24 % (1-10) H Eosinophils % (Manual) 3 % (0-3) Basophils % (Manual) 0 % (0-2) Band Neutrophils 0 % (0-8) Reactive Lymphocytes 1+ Platelet Estimate Decreased L Platelet Morphology Normal Hypochromasia 1+ Anisocytosis 2+ Acanthocytes 1+ Schistocytes 1+ Sodium Level 135 MMOL/L (136-145) L Potassium Level 3.9 MMOL/L (3.5-5.1) Chloride Level 99 MMOL/L (98-107) Carbon Dioxide Level 32 MMOL/L (21-32) Anion Gap 4 mmol/L (5-15) L Blood Urea Nitrogen 20 mg/dL (7-18) H Creatinine 0.8 MG/DL (0.55-1.30) Estimat Glomerular Filtration Rate mL/min (>60) Glucose Level 91 MG/DL (74-106) Calcium Level 8.6 MG/DL (8.5-10.1) Height (Feet): 5 Height (Inches): 5.00 Weight (Pounds): 145 General Appearance: WD/WN, no apparent distress, alert, thin Cardiovascular: normal rate Respiratory/Chest: normal breath sounds, no respiratory distress Abdominal Exam: normal bowel sounds, non tender, soft Extremities: normal range of motion, non-tender Jason Gray NP Jan 03, 2019 11:26
[2019-01-03 12:00] VITALS: BP 131/90
--- NOTE | 2019-01-03 13:46 | Pulmonology Progress Note ---
Assessment/Plan Problems: (1) Myeloblastic leukemia (2) Severe thrombocytopenia (3) ACS (acute coronary syndrome) (4) Cardiomyopathy (5) HTN (hypertension) (6) Pacemaker (7) Hypothyroidism (8) CAD (coronary artery disease) Assessment/Plan no new complains doing better, on fentNAYL PACH, pain better controlled dc all oral analgesics and try Fentanyl Patch doing better early leukemia check electrolytes no malignancy in bone marrow symptomatic treatment pain better controlled dc planning Subjective ROS Limited/Unobtainable: No Constitutional: Reports: no symptoms HEENT: Repors: no symptoms Allergies: Coded Allergies: No Known Allergies (Verified , 09/12/10) Objective Last 24 Hour Vital Signs Date Time Temp Pulse Resp B/P (MAP) Pulse Ox O2 Delivery O2 Flow Rate FiO2 01/03/19 12:00 131/90 (104) 01/03/19 11:37 98.5 01/03/19 09:00 Room Air 01/03/19 08:45 67 116/54 01/03/19 08:00 98.5 65 20 116/54 (74) 97 01/03/19 04:00 98.9 60 15 117/50 (72) 100 01/03/19 00:00 99.1 62 18 108/50 (69) 99 01/02/19 21:00 Room Air 01/02/19 20:50 64 110/47 01/02/19 20:00 98.0 64 16 110/47 (68) 100 01/02/19 16:00 98.6 64 18 111/60 (77) 100 Intake and Output 01/02/19 01/03/19 19:00 07:00 Intake Total 720 ml Output Total 850 ml Balance 720 ml -850 ml Intake Oral 720 ml Output Urine Total 850 ml Objective General Appearance: cachetic Lines, tubes and drains: peripheral HEENT: normocephalic, atraumatic Neck: non-tender, normal alignment Respiratory/Chest: chest wall non-tender, lungs clear Breasts: no masses Cardiovascular/Chest: normal peripheral pulses, normal rate Abdomen: normal bowel sounds, non tender Genitourinary/Rectal: normal genital exam Extremities: normal range of motion Skin Exam: normal pigmentation 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: 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 grossly normal Laboratory Tests 01/02/19 22:00: Urine Color Yellow, Urine Appearance Clear, Urine pH 7, Urine Specific [place] 1.010, Urine Protein Negative, Urine Glucose (UA) Negative, Urine Ketones Negative, Urine Blood Negative, Urine Nitrite Negative, Urine Bilirubin Negative , Urine Urobilinogen 4H, Urine Leukocyte Esterase Negative, Urine RBC 0-2H, Urine WBC 0-2, Urine Squamous Epithelial Cells None, Urine Bacteria Few 01/03/19 05:43: White Blood Count 3.4L, Red Blood Count 2.90L, Hemoglobin 7.4L, Hematocrit 22.2L , Mean Corpuscular Volume 77L, Mean Corpuscular Hemoglobin 25.4L, Mean Corpuscular Hemoglobin Concent 33.1, Red Cell Distribution Width 23.5H, Platelet Count 78L, Mean Platelet Volume 16.1H, Neutrophils (%) (Auto) , Lymphocytes (%) (Auto) , Monocytes (%) (Auto) , Eosinophils (%) (Auto) , Basophils (%) (Auto) , Differential Total Cells Counted 100, Neutrophils % ( Manual) 16L, Lymphocytes % (Manual) 57H, Monocytes % (Manual) 24H, Eosinophils % (Manual) 3, Basophils % (Manual) 0, Band Neutrophils 0, Reactive Lymphocytes 1 +, Platelet Estimate DecreasedL, Platelet Morphology Normal, Hypochromasia 1+, Anisocytosis 2+, Acanthocytes 1+, Schistocytes 1+, Sodium Level 135L, Potassium Level 3.9, Chloride Level 99, Carbon Dioxide Level 32, Anion Gap 4L, Blood Urea Nitrogen 20H, Creatinine 0.8, Estimat Glomerular Filtration Rate , Glucose Level 91, Calcium Level 8.6 Current Medications Medications (Trade) Dose Ordered Sig/Scout Route PRN Reason Start Time Stop Time Status Last Admin Dose Admin Atorvastatin Calcium (Lipitor) 40 mg QHS ORAL 12/19/18 21:00 01/18/19 20:59 01/02/19 20:51 Carvedilol (Coreg) 12.5 mg EVERY 12 HOURS ORAL 12/19/18 09:00 01/18/19 08:59 01/03/19 08:45 Clonidine HCl (Catapres Tab) 0.1 mg Q2H PRN ORAL For High Blood Pressure 12/06/18 21:15 01/05/19 21:14 12/07/18 08:25 Docusate Sodium (Colace) 100 mg Q12H PRN ORAL Constipation 12/18/18 21:45 01/17/19 21:29 12/29/18 07:58 Fentanyl (Duragesic) 1 patch Q72H TDERMAL 01/01/19 18:00 01/08/19 17:59 01/01/19 17:28 Furosemide (Lasix) 20 mg DAILY ORAL 12/19/18 17:45 01/18/19 17:44 01/03/19 08:45 Miscellaneous Medication (fentaNYL Destruction) 1 ea Q72H MISC 01/01/19 17:59 01/31/19 17:58 01/01/19 17:28 Morphine Sulfate (Morphine Sulfate) 2 mg Q4H PRN IM Severe Pain (Pain Scale 7-10) 12/30/18 08:30 01/06/19 08:29 01/03/19 10:09 Naloxone HCl (Narcan) 0.1 mg PRN IV Sedation scale 3 or 4 12/08/18 15:15 01/07/19 15:14 Nitroglycerin (Ntg) 0.4 mg Q5M PRN SL Prn Chest Pain 12/25/18 16:55 01/24/19 16:54 12/30/18 15:51 Ondansetron HCl (Zofran ODT) 4 mg Q4H PRN ORAL Nausea & Vomiting 12/07/18 10:00 01/06/19 09:59 01/02/19 18:47 Polyethylene Glycol (Miralax) 17 gm DAILYPRN PRN ORAL Constipation 12/28/18 19:00 01/27/19 18:59 12/29/18 07:58 Chepe Luong MD Jan 03, 2019 13:46
[2019-01-03 16:00] VITALS: BP 148/89
--- NOTE | 2019-01-03 17:42 | Internal Med Progress Note ---
Subjective Date of Service: Jan 03, 2019 Physician Name Nikhil West Attending Physician Abdias Hunter MD Current Medications Medications (Trade) Dose Ordered Sig/Scout Route PRN Reason Start Time Stop Time Status Last Admin Dose Admin Atorvastatin Calcium (Lipitor) 40 mg QHS ORAL 12/19/18 21:00 01/18/19 20:59 01/02/19 20:51 Carvedilol (Coreg) 12.5 mg EVERY 12 HOURS ORAL 12/19/18 09:00 01/18/19 08:59 01/03/19 08:45 Clonidine HCl (Catapres Tab) 0.1 mg Q2H PRN ORAL For High Blood Pressure 12/06/18 21:15 01/05/19 21:14 12/07/18 08:25 Docusate Sodium (Colace) 100 mg Q12H PRN ORAL Constipation 12/18/18 21:45 01/17/19 21:29 12/29/18 07:58 Fentanyl (Duragesic) 1 patch Q72H TDERMAL 01/01/19 18:00 01/08/19 17:59 01/01/19 17:28 Furosemide (Lasix) 20 mg DAILY ORAL 12/19/18 17:45 01/18/19 17:44 01/03/19 08:45 Miscellaneous Medication (fentaNYL Destruction) 1 ea Q72H MISC 01/01/19 17:59 01/31/19 17:58 01/01/19 17:28 Morphine Sulfate (Morphine Sulfate) 2 mg Q4H PRN IM Severe Pain (Pain Scale 7-10) 12/30/18 08:30 01/06/19 08:29 01/03/19 10:09 Naloxone HCl (Narcan) 0.1 mg PRN IV Sedation scale 3 or 4 12/08/18 15:15 01/07/19 15:14 Nitroglycerin (Ntg) 0.4 mg Q5M PRN SL Prn Chest Pain 12/25/18 16:55 01/24/19 16:54 12/30/18 15:51 Ondansetron HCl (Zofran ODT) 4 mg Q4H PRN ORAL Nausea & Vomiting 12/07/18 10:00 01/06/19 09:59 01/02/19 18:47 Polyethylene Glycol (Miralax) 17 gm DAILYPRN PRN ORAL Constipation 12/28/18 19:00 01/27/19 18:59 12/29/18 07:58 Allergies: Coded Allergies: No Known Allergies (Verified , 09/12/10) ROS Limited/Unobtainable: No Constitutional: Reports: no symptoms HEENT: Reports: no symptoms Cardiovascular: Reports: no symptoms Respiratory: Reports: no symptoms Gastrointestinal/Abdominal: Reports: no symptoms Genitourinary: Reports: no symptoms Neurologic/Psychiatric: Reports: no symptoms Subjective 78 YO M admitted with chest pain. Now pancytopenia and UTI. Cover for Int Joseph- Dr Hunter. Objective Last Vital Signs Date Time Temp Pulse Resp B/P (MAP) Pulse Ox O2 Delivery O2 Flow Rate FiO2 01/03/19 16:00 98.0 64 148/89 (108) 01/03/19 09:00 Room Air 01/03/19 08:00 20 97 12/29/18 15:43 2.0 28 Laboratory Tests Test 01/02/19 22:00 01/03/19 05:43 Urine Color Yellow Urine Appearance Clear Urine pH 7 (4.5-8.0) Urine Specific [place] 1.010 (1.005-1.035) Urine Protein Negative (NEGATIVE) Urine Glucose (UA) Negative (NEGATIVE) Urine Ketones Negative (NEGATIVE) Urine Blood Negative (NEGATIVE) Urine Nitrite Negative (NEGATIVE) Urine Bilirubin Negative (NEGATIVE) Urine Urobilinogen 4 MG/DL (0.0-1.0) H Urine Leukocyte Esterase Negative (NEGATIVE) Urine RBC 0-2 /HPF (0 - 0) H Urine WBC 0-2 /HPF (0 - 0) Urine Squamous Epithelial Cells None /LPF (NONE/OCC) Urine Bacteria Few /HPF (NONE) White Blood Count 3.4 K/UL (4.8-10.8) L Red Blood Count 2.90 M/UL (4.70-6.10) L Hemoglobin 7.4 G/DL (14.2-18.0) L Hematocrit 22.2 % (42.0-52.0) L Mean Corpuscular Volume 77 FL (80-99) L Mean Corpuscular Hemoglobin 25.4 PG (27.0-31.0) L Mean Corpuscular Hemoglobin Concent 33.1 G/DL (32.0-36.0) Red Cell Distribution Width 23.5 % (11.6-14.8) H Platelet Count 78 K/UL (150-450) L Mean Platelet Volume 16.1 FL (6.5-10.1) H Neutrophils (%) (Auto) % (45.0-75.0) Lymphocytes (%) (Auto) % (20.0-45.0) Monocytes (%) (Auto) % (1.0-10.0) Eosinophils (%) (Auto) % (0.0-3.0) Basophils (%) (Auto) % (0.0-2.0) Differential Total Cells Counted 100 Neutrophils % (Manual) 16 % (45-75) L Lymphocytes % (Manual) 57 % (20-45) H Monocytes % (Manual) 24 % (1-10) H Eosinophils % (Manual) 3 % (0-3) Basophils % (Manual) 0 % (0-2) Band Neutrophils 0 % (0-8) Reactive Lymphocytes 1+ Platelet Estimate Decreased L Platelet Morphology Normal Hypochromasia 1+ Anisocytosis 2+ Acanthocytes 1+ Schistocytes 1+ Sodium Level 135 MMOL/L (136-145) L Potassium Level 3.9 MMOL/L (3.5-5.1) Chloride Level 99 MMOL/L (98-107) Carbon Dioxide Level 32 MMOL/L (21-32) Anion Gap 4 mmol/L (5-15) L Blood Urea Nitrogen 20 mg/dL (7-18) H Creatinine 0.8 MG/DL (0.55-1.30) Estimat Glomerular Filtration Rate mL/min (>60) Glucose Level 91 MG/DL (74-106) Calcium Level 8.6 MG/DL (8.5-10.1) Intake and Output 01/02/19 01/03/19 19:00 07:00 Intake Total 720 ml Output Total 850 ml Balance 720 ml -850 ml Intake Oral 720 ml Output Urine Total 850 ml Objective PHYSICAL EXAMINATION: GENERAL: The patient awake, responsive, no acute distress. HEAD AND NECK: Pupils are equal and reactive to light. Extraocular movements are intact. Neck was supple. No JVD LUNGS: Good air entry. No wheeze or rales. HEART: S1, S2. Distant heart sounds. No murmur or gallops. Pacemaker in left-sided chest wall. ABDOMEN: Soft, nondistended, nontender. EXTREMITIES: No cyanosis, clubbing, edema. Varicose veins, bilateral lower extremities. NEUROLOGIC: Cranial nerves II through XII grossly intact. Motor is 5/5 in all extremities. Gait is intact. RECTAL: Refused and deferred. GENITOURINARY: Refused and deferred. PSYCHIATRIC: Mood and affect is depressed. Assessment/Plan Assessment/Plan ASSESSMENT: 1. Chest pain, possible acute coronary syndrome. 2. Hypertension. 3. Dyslipidemia. 4. Congestive heart failure. 5. Coronary artery disease. 6. Sick sinus syndrome, status pacemaker. 7. UTI. 8. Pancytopenia; S/P transfusion 5 units PRBC total-Severe anemia, Thrombocytopenia and leukopenia-?leukemia? see onc note. PLAN: Admit the patient to telemetry. Discussed case with Dr. Gee from Cardiology Electrophysiology. Await cardiac nuclear stress test-outpatient Dr. Luong, Pulmonary Critical Care. Urine cult=E. Coli. S/P Rocephin. DVT prophylaxis, heparin subcutaneous. Code status, Full Code. The patient is expected to be in the hospital greater than 2 days Discharge paln: [facility] S/P transfusion 2 units PRBC on 11/19/18 See Hematology consult-?acute myelocytic leukemia? Discharge to [facility]-see social work note Nikhil West MD Jan 03, 2019 17:42
[2019-01-03 20:00] VITALS: BP 135/59
[2019-01-03] MEDS: Atorvastatin 20mg tab ORAL SCH (20:19)
--- NOTE | 2019-01-03 21:06 | General Progress Note ---
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 --> Hep panel and HIV negative, hep C++++ --> US abd to evaluate for cirrhosis and hsm reviewed --> Peripheral smear ordered to evaluate for blasts /schistocytes is wnl --> abx and other meds have been reviewed --> ok for ppx if plt >50k w/ either heparin or lovenox --> Transfuse if Plt < 20k and fever, or if Plt < 10k without fever --->Plt trend 70-->65-->44-->86-->122-->88-->100k-->140k-->154k-->78k # Reticulocytosis with elevated bilirubin that is indirect --> reviewed direct and indirect bilis again, trend could have liver disease --> liver US shows no significant cirrhosis --> evaluate as needed with gi team, recs apprecaited #. Chest pain, possible acute coronary syndrome. --> cards recs appreciated as well as pulm --> stress test prn # Hypertension. sbp goal <140 -- > as per cards recs # Dyslipidemia. # Chf # Coronary artery disease. # Sick sinus syndrome, status pacemaker. # Acute E. coli UTI s/p abx # Hep C+++ needs op management The timing of this note does not necessarily reflect the time of the patient was seen. Greatly appreciate consultation! Subjective Constitutional: Denies: no symptoms, chills, diaphoresis, fever, malaise, weakness, other HEENT: Denies: no symptoms, eye pain, blurred vision, tearing, double vision, ear pain, ear discharge, nose pain, nose congestion, throat pain, throat swelling, mouth pain, mouth swelling, other Cardiovascular: Denies: no symptoms, chest pain, edema, irregular heart rate, lightheadedness, palpitations, syncope, other Respiratory: Denies: no symptoms, cough, orthopnea, shortness of breath, SOB with excertion, SOB at rest, sputum, stridor, wheezing, other Gastrointestinal/Abdominal: Denies: no symptoms, abdomen distended, abdominal pain, black stools, tarry stools, blood in stool, constipated, diarrhea, difficulty swallowing, nausea, poor appetite, poor fluid intake, rectal bleeding , vomiting, other Genitourinary: Denies: no symptoms, burning, discharge, frequency, flank pain, hematuria, incontinence, pain, urgency, other Neurologic/Psychiatric: Denies: no symptoms, anxiety, depressed, emotional problems, headache, numbness, paresthesia, pre-existing deficit, seizure, tingling, tremors, weakness, other Endocrine: Denies: no symptoms, excessive sweating, flushing, intolerance to cold, intolerance to heat, increased hunger, increased thirst, increased urine, unexplained weight gain, unexplained weight loss, other Hematologic/Lymphatic: Denies: no symptoms, anemia, easy bleeding, easy bruising, other Allergies: Coded Allergies: No Known Allergies (Verified , 09/12/10) Subjective 11/27: no events to report, no f/c 11/28: seen by bedside, plt 65, plan for EGD and bone marrow biopsy tomorrow 11/29: BM biopsy today, no acute distress. 11/30: Had BM biopsy yesterday and now in reverse isolation. hgb 7.5, will transfuse as needed. 12/01: seen by bedside, plt remains low, awaiting bone marrow biopsy results. 12/02: No acute distress, no chest pain, no shortness of breath, wbc 2.7, hgb 7.3 , plt 50, will transfuse as needed. S/P BM biopsy 11/29/18, Results pending 12/04: bone marrow biopsy completed, and show myeloblasts, c/w mds/leukemia, requires close surveillance 12/05: hgb 6.9, Had blood transfusion today, plt up trending, no events 12/06: Seen by bedside, overall improved, still has complaint of chest pain, plt trending up 12/07: Given 1 unit prbc, continues to c/o chest pain, seen by cards 12/08: seen by bedside, complains of pain, plt 106, no events 12/09: awake, comfortable, plt trending down at 69, no events 12/11: awake, comfortable, on NC, plt remains low at 70. 12/12: awake, comfortable, plt 65, no events 12/13: seen by bedside, awake , comfortable, pending labs. 12/14: awake, comfortable, hgb 7.9, monitor, will transfuse as needed, plt trending down at 44, 12/15: seen by bedside, awake, comfortable, hgb 7, will transfuse as needed, plt 82. 12/16: awake comfortable, no events, hgb trending up 12/18: seen by bedside, alert, oriented, no acute distress 12/19: no events noted, no fevers or chills, cbc has been reviewed, had blasts on smear this wknd 12/20: seen by bedside, awake, comfortable, hgb 7.4, will transfuse as needed. 12/21: No overnight events reported, comfortable, hgb 8.1 12/22: no events to report, remains nausous, the platelet count has improved on its own 12/23: awaiting placement to snf at this time, following with cards, pulm 12/24: on 2l nc, received morphine today by rn, complaining of pain 12/25: no events today, no f/c, labs reviewed 12/26: no events report, will get one unit prbc today, has been ordered 12/27: hgb stable/improved but is after transfusion, no events otherwise no fevers 12/28: no events, feeling overall better 12/29: this am comfortable and sleeping, no events, cbc reviewed, no issues noted 12/30: no events to report, no night sweats, anemia panel reviewed 01/02: awake, alert, bed in lowest position 01/03: dc to [facility] once bed opens up, no events o/n Objective Last 24 Hour Vital Signs Date Time Temp Pulse Resp B/P (MAP) Pulse Ox O2 Delivery O2 Flow Rate FiO2 01/03/19 20:15 68 135/59 01/03/19 20:00 97.5 68 17 135/59 (84) 100 01/03/19 18:39 98.0 01/03/19 16:00 98.0 64 148/89 (108) 01/03/19 12:00 131/90 (104) 01/03/19 09:00 Room Air 01/03/19 08:45 67 116/54 01/03/19 08:00 98.5 65 20 116/54 (74) 97 01/03/19 04:00 98.9 60 15 117/50 (72) 100 01/03/19 00:00 99.1 62 18 108/50 (69) 99 Intake and Output 01/02/19 01/03/19 19:00 07:00 Intake Total 720 ml Output Total 850 ml Balance 720 ml -850 ml Intake Oral 720 ml Output Urine Total 850 ml Laboratory Tests 01/02/19 22:00: Urine Color Yellow, Urine Appearance Clear, Urine pH 7, Urine Specific [place] 1.010, Urine Protein Negative, Urine Glucose (UA) Negative, Urine Ketones Negative, Urine Blood Negative, Urine Nitrite Negative, Urine Bilirubin Negative , Urine Urobilinogen 4H, Urine Leukocyte Esterase Negative, Urine RBC 0-2H, Urine WBC 0-2, Urine Squamous Epithelial Cells None, Urine Bacteria Few 01/03/19 05:43: White Blood Count 3.4L, Red Blood Count 2.90L, Hemoglobin 7.4L, Hematocrit 22.2L , Mean Corpuscular Volume 77L, Mean Corpuscular Hemoglobin 25.4L, Mean Corpuscular Hemoglobin Concent 33.1, Red Cell Distribution Width 23.5H, Platelet Count 78L, Mean Platelet Volume 16.1H, Neutrophils (%) (Auto) , Lymphocytes (%) (Auto) , Monocytes (%) (Auto) , Eosinophils (%) (Auto) , Basophils (%) (Auto) , Differential Total Cells Counted 100, Neutrophils % ( Manual) 16L, Lymphocytes % (Manual) 57H, Monocytes % (Manual) 24H, Eosinophils % (Manual) 3, Basophils % (Manual) 0, Band Neutrophils 0, Reactive Lymphocytes 1 +, Platelet Estimate DecreasedL, Platelet Morphology Normal, Hypochromasia 1+, Anisocytosis 2+, Acanthocytes 1+, Schistocytes 1+, Sodium Level 135L, Potassium Level 3.9, Chloride Level 99, Carbon Dioxide Level 32, Anion Gap 4L, Blood Urea Nitrogen 20H, Creatinine 0.8, Estimat Glomerular Filtration Rate , Glucose Level 91, Calcium Level 8.6 Height (Feet): 5 Height (Inches): 5.00 Weight (Pounds): 145 General Appearance: lethargic EENT: TMs normal Neck: supple Cardiovascular: normal rate Respiratory/Chest: lungs clear Genitourinary/Rectal: normal rectal exam Edema: 1+ Leg (L), 1+ Leg (R) Edema: mild edema Neurologic: alert Objective General: well appearing, nad, alert Head: normocephalic, atraumatic Eyes: b/l eye PERRL, bilateral eye EOMI ENT: hearing grossly normal, normal pharynx Neck: full range of motion, supple, no meningismus Respiratory: chest non-tender, lungs clear, normal BSs, NC++ CV: regular rate, rhythm, no murmur GI: normal bowel sounds, non tender, no mass MSK: back normal, normal range of motion Psychiatric: mood/affect normal Skin: warm/dry Jose Alberto España MD Jan 03, 2019 21:06
[2019-01-04] VITALS: BP 96/50
[2019-01-04] MEDS: Morphine Sulfate 2mg/ml Inj(IV/IM USE ONLY) IM PRN ×4 (02:32→20:39)
[2019-01-04 04:00] VITALS: BP 117/57
[2019-01-04 08:00] VITALS: BP 110/50
[2019-01-04] MEDS: Carvedilol 12.5mg tab ORAL SCH ×2 (08:17→20:34)
--- NOTE | 2019-01-04 11:50 | GI Progress Note ---
Assessment/Plan Problems: (1) History of CVA (cerebrovascular accident) ICD Codes: Z86.73 - Personal history of transient ischemic attack (TIA), and cerebral infarction without residual deficits SNOMED: 882576045 (2) Severe anemia ICD Codes: D64.9 - Anemia, unspecified SNOMED: 325592754 (3) Abdominal pain ICD Codes: R10.9 - Unspecified abdominal pain SNOMED: 88750758 (4) GERD (gastroesophageal reflux disease) ICD Codes: K21.9 - Gastro-esophageal reflux disease without esophagitis SNOMED: 309748155 Status: stable Status Narrative Discussed with Dr. Mcguire. Assessment/Plan SUMMARY OF FINDINGS: 1. Gastritis. 2. A 6 cm hiatal hernia. RECOMMENDATIONS: Follow up biopsy results and treat accordingly. >> Mild chronic gastritis. Negative for H. pylori negative negative for dysplasia or malignancy. BM biopsy>> leukemia>> fu oncology monitor H&H, prn transfusions. bowel regime ppi, H2B qhs Zofran as needed fu labs Outpatient hep C treatment dc planning The patient was seen and examined at bedside and all new and available data was reviewed in the patients chart. I agree with the above findings, impression and plan. (Patient seen earlier today. Signature stamp does not reflect patient encounter time.). - Richie Mcguire MD Subjective Subjective Denies any abdominal pain Denies any constipation or diarrhea Tolerating diet Denies any nausea vomiting Objective Last 24 Hour Vital Signs Date Time Temp Pulse Resp B/P (MAP) Pulse Ox O2 Delivery O2 Flow Rate FiO2 01/04/19 08:32 Room Air 01/04/19 08:17 76 110/50 01/04/19 08:00 18 110/50 (70) 98 01/04/19 04:00 98.4 63 19 117/57 (77) 97 01/04/19 00:00 98.9 63 19 96/50 (65) 96 01/03/19 21:00 Room Air 01/03/19 20:15 68 135/59 01/03/19 20:00 97.5 68 17 135/59 (84) 100 01/03/19 18:39 98.0 01/03/19 16:00 98.0 64 148/89 (108) 01/03/19 12:00 131/90 (104) Intake and Output 01/03/19 01/04/19 19:00 07:00 Intake Total 600 ml Output Total 1000 ml Balance 600 ml -1000 ml Other 600 ml Output Urine Total 1000 ml Height (Feet): 5 Height (Inches): 5.00 Weight (Pounds): 143 General Appearance: WD/WN, no apparent distress, alert Cardiovascular: normal rate Respiratory/Chest: normal breath sounds, no respiratory distress Abdominal Exam: normal bowel sounds, non tender, soft Extremities: normal range of motion, non-tender Jason Gray NP Jan 04, 2019 11:50
[2019-01-04 12:00] VITALS: BP 125/61
--- NOTE | 2019-01-04 13:01 | Pulmonology Progress Note ---
Assessment/Plan Problems: (1) Myeloblastic leukemia (2) Severe thrombocytopenia (3) ACS (acute coronary syndrome) (4) Cardiomyopathy (5) HTN (hypertension) (6) Pacemaker (7) Hypothyroidism (8) CAD (coronary artery disease) Assessment/Plan no new complains doing better, on fentNAYL PACH, pain better controlled dc all oral analgesics and try Fentanyl Patch doing better early leukemia check electrolytes no malignancy in bone marrow symptomatic treatment pain better controlled dc planning Subjective ROS Limited/Unobtainable: No Constitutional: Reports: no symptoms HEENT: Repors: no symptoms Allergies: Coded Allergies: No Known Allergies (Verified , 09/12/10) Objective Last 24 Hour Vital Signs Date Time Temp Pulse Resp B/P (MAP) Pulse Ox O2 Delivery O2 Flow Rate FiO2 01/04/19 12:00 98.2 69 125/61 (82) 01/04/19 08:32 Room Air 01/04/19 08:17 76 110/50 01/04/19 08:00 18 110/50 (70) 98 01/04/19 04:00 98.4 63 19 117/57 (77) 97 01/04/19 00:00 98.9 63 19 96/50 (65) 96 01/03/19 21:00 Room Air 01/03/19 20:15 68 135/59 01/03/19 20:00 97.5 68 17 135/59 (84) 100 01/03/19 18:39 98.0 01/03/19 16:00 98.0 64 148/89 (108) Intake and Output 01/03/19 01/04/19 19:00 07:00 Intake Total 600 ml Output Total 1000 ml Balance 600 ml -1000 ml Other 600 ml Output Urine Total 1000 ml Objective General Appearance: cachetic Lines, tubes and drains: peripheral HEENT: normocephalic, atraumatic Neck: non-tender, normal alignment Respiratory/Chest: chest wall non-tender, lungs clear Breasts: no masses Cardiovascular/Chest: normal peripheral pulses, normal rate Abdomen: normal bowel sounds, non tender Genitourinary/Rectal: normal genital exam Extremities: normal range of motion Skin Exam: normal pigmentation 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 Microbiology Date/Time Source Procedure Growth Status 01/02/19 22:00 Urine,Clean Catch Urine Culture - Preliminary NO GROWTH Resulted Current Medications Medications (Trade) Dose Ordered Sig/Scout Route PRN Reason Start Time Stop Time Status Last Admin Dose Admin Atorvastatin Calcium (Lipitor) 40 mg QHS ORAL 12/19/18 21:00 01/18/19 20:59 01/03/19 20:19 Carvedilol (Coreg) 12.5 mg EVERY 12 HOURS ORAL 12/19/18 09:00 01/18/19 08:59 01/04/19 08:17 Clonidine HCl (Catapres Tab) 0.1 mg Q2H PRN ORAL For High Blood Pressure 12/06/18 21:15 01/05/19 21:14 12/07/18 08:25 Docusate Sodium (Colace) 100 mg Q12H PRN ORAL Constipation 12/18/18 21:45 01/17/19 21:29 12/29/18 07:58 Fentanyl (Duragesic) 1 patch Q72H TDERMAL 01/01/19 18:00 01/08/19 17:59 01/01/19 17:28 Furosemide (Lasix) 20 mg DAILY ORAL 12/19/18 17:45 01/18/19 17:44 01/04/19 08:15 Miscellaneous Medication (fentaNYL Destruction) 1 ea Q72H MISC 01/01/19 17:59 01/31/19 17:58 01/01/19 17:28 Morphine Sulfate (Morphine Sulfate) 2 mg Q4H PRN IM Severe Pain (Pain Scale 7-10) 12/30/18 08:30 01/06/19 08:29 01/04/19 12:57 Naloxone HCl (Narcan) 0.1 mg PRN IV Sedation scale 3 or 4 12/08/18 15:15 01/07/19 15:14 Nitroglycerin (Ntg) 0.4 mg Q5M PRN SL Prn Chest Pain 12/25/18 16:55 01/24/19 16:54 12/30/18 15:51 Ondansetron HCl (Zofran ODT) 4 mg Q4H PRN ORAL Nausea & Vomiting 12/07/18 10:00 01/06/19 09:59 01/02/19 18:47 Polyethylene Glycol (Miralax) 17 gm DAILYPRN PRN ORAL Constipation 12/28/18 19:00 01/27/19 18:59 12/29/18 07:58 Chepe Luong MD Jan 04, 2019 13:01
[2019-01-04 16:00] VITALS: BP 121/62
--- NOTE | 2019-01-04 16:07 | Cardiac Electrophysiology PN ---
Assessment/Plan Assessment/Plan 1. CP and Hx of CABG. Likely due to severe anemia. Ruled out [place]. Hold off on stress test in view of acute leukemia On Lipitor and Coreg. Off Aspirin and Plavix for thrombocytopenia 2. Cardiomyopathy. EF now 55%. On Coreg 12.5 mg bid and Lasix 20 daily 3[address] Status post [facility] atriobiventricular defibrillator. Interrogated and showed Nl Fx 4. Severe anemia, S/P multiple PRBC and platelet transfusions . 5. Pancytopenia. Off Aspirin and PLavix S/P platelet and PRBC transfusion. S/P BM biopsy 11/29/18 that confirmed Leukemia FU by Dr Stock 6. Placement DW RN Subjective Subjective No CP or SOB. Very weak. Awaiting placement as had ran out of insurance Objective Last 24 Hour Vital Signs Date Time Temp Pulse Resp B/P (MAP) Pulse Ox O2 Delivery O2 Flow Rate FiO2 01/04/19 13:29 98.2 01/04/19 12:00 98.2 69 125/61 (82) 01/04/19 08:32 Room Air 01/04/19 08:17 76 110/50 01/04/19 08:00 18 110/50 (70) 98 01/04/19 04:00 98.4 63 19 117/57 (77) 97 01/04/19 00:00 98.9 63 19 96/50 (65) 96 01/03/19 21:00 Room Air 01/03/19 20:15 68 135/59 01/03/19 20:00 97.5 68 17 135/59 (84) 100 Intake and Output 01/03/19 01/04/19 19:00 07:00 Intake Total 600 ml Output Total 1000 ml Balance 600 ml -1000 ml Other 600 ml Output Urine Total 1000 ml Microbiology Date/Time Source Procedure Growth Status 01/02/19 22:00 Urine,Clean Catch Urine Culture - Preliminary NO GROWTH Resulted Objective HEAD AND NECK: No JVD. LUNGS: Coarse rhonchi. CARDIOVASCULAR: Regular S1 and S2 with no gallop or murmur. Sternotomy intact. ICD in left subclavian. ABDOMEN: Soft. EXTREMITIES: 1+ pitting edema. Satinder Gee MD Jan 04, 2019 16:07
[2019-01-04] MEDS: fentaNYL Destruction MISC SCH (17:53)
--- NOTE | 2019-01-04 18:50 | Internal Med Progress Note ---
Subjective Date of Service: Jan 04, 2019 Physician Name Nikhil West Attending Physician Abdias Hunter MD Current Medications Medications (Trade) Dose Ordered Sig/Scout Route PRN Reason Start Time Stop Time Status Last Admin Dose Admin Atorvastatin Calcium (Lipitor) 40 mg QHS ORAL 12/19/18 21:00 01/18/19 20:59 01/03/19 20:19 Carvedilol (Coreg) 12.5 mg EVERY 12 HOURS ORAL 12/19/18 09:00 01/18/19 08:59 01/04/19 08:17 Clonidine HCl (Catapres Tab) 0.1 mg Q2H PRN ORAL For High Blood Pressure 12/06/18 21:15 01/05/19 21:14 12/07/18 08:25 Docusate Sodium (Colace) 100 mg Q12H PRN ORAL Constipation 12/18/18 21:45 01/17/19 21:29 12/29/18 07:58 Fentanyl (Duragesic) 1 patch Q72H TDERMAL 01/01/19 18:00 01/08/19 17:59 01/04/19 17:52 Furosemide (Lasix) 20 mg DAILY ORAL 12/19/18 17:45 01/18/19 17:44 01/04/19 08:15 Miscellaneous Medication (fentaNYL Destruction) 1 ea Q72H MISC 01/01/19 17:59 01/31/19 17:58 01/01/19 17:28 Morphine Sulfate (Morphine Sulfate) 2 mg Q4H PRN IM Severe Pain (Pain Scale 7-10) 12/30/18 08:30 01/06/19 08:29 01/04/19 12:57 Naloxone HCl (Narcan) 0.1 mg PRN IV Sedation scale 3 or 4 12/08/18 15:15 01/07/19 15:14 Nitroglycerin (Ntg) 0.4 mg Q5M PRN SL Prn Chest Pain 12/25/18 16:55 01/24/19 16:54 12/30/18 15:51 Ondansetron HCl (Zofran ODT) 4 mg Q4H PRN ORAL Nausea & Vomiting 12/07/18 10:00 01/06/19 09:59 01/02/19 18:47 Polyethylene Glycol (Miralax) 17 gm DAILYPRN PRN ORAL Constipation 12/28/18 19:00 01/27/19 18:59 12/29/18 07:58 Allergies: Coded Allergies: No Known Allergies (Verified , 09/12/10) ROS Limited/Unobtainable: No Constitutional: Reports: no symptoms HEENT: Reports: no symptoms Cardiovascular: Reports: no symptoms Respiratory: Reports: no symptoms Gastrointestinal/Abdominal: Reports: no symptoms Genitourinary: Reports: no symptoms Neurologic/Psychiatric: Reports: no symptoms Subjective 78 YO M admitted with chest pain. Now pancytopenia and UTI. Cover for Int Med- Dr Hunter. Objective Last Vital Signs Date Time Temp Pulse Resp B/P (MAP) Pulse Ox O2 Delivery O2 Flow Rate FiO2 01/04/19 16:00 97.8 68 17 121/62 (81) 01/04/19 08:32 Room Air 01/04/19 08:00 98 12/29/18 15:43 2.0 28 Microbiology Date/Time Source Procedure Growth Status 01/02/19 22:00 Urine,Clean Catch Urine Culture - Preliminary NO GROWTH Resulted Intake and Output 01/03/19 01/04/19 19:00 07:00 Intake Total 600 ml Output Total 1000 ml Balance 600 ml -1000 ml Other 600 ml Output Urine Total 1000 ml Objective PHYSICAL EXAMINATION: GENERAL: The patient awake, responsive, no acute distress. HEAD AND NECK: Pupils are equal and reactive to light. Extraocular movements are intact. Neck was supple. No JVD LUNGS: Good air entry. No wheeze or rales. HEART: S1, S2. Distant heart sounds. No murmur or gallops. Pacemaker in left-sided chest wall. ABDOMEN: Soft, nondistended, nontender. EXTREMITIES: No cyanosis, clubbing, edema. Varicose veins, bilateral lower extremities. NEUROLOGIC: Cranial nerves II through XII grossly intact. Motor is 5/5 in all extremities. Gait is intact. RECTAL: Refused and deferred. GENITOURINARY: Refused and deferred. PSYCHIATRIC: Mood and affect is depressed. Assessment/Plan Assessment/Plan ASSESSMENT: 1. Chest pain, possible acute coronary syndrome. 2. Hypertension. 3. Dyslipidemia. 4. Congestive heart failure. 5. Coronary artery disease. 6. Sick sinus syndrome, status pacemaker. 7. UTI. 8. Pancytopenia; S/P transfusion 5 units PRBC total-Severe anemia, Thrombocytopenia and leukopenia-?leukemia? see onc note. PLAN: Admit the patient to telemetry. Discussed case with Dr. Gee from Cardiology Electrophysiology. Await cardiac nuclear stress test-outpatient Dr. Luong, Pulmonary Critical Care. Urine cult=E. Coli. S/P Rocephin. DVT prophylaxis, heparin subcutaneous. Code status, Full Code. The patient is expected to be in the hospital greater than 2 days Discharge paln: [facility] S/P transfusion 2 units PRBC on 11/19/18 See Hematology consult-?acute myelocytic leukemia? Discharge to [facility]-see social work note Nikhil West MD Jan 04, 2019 18:50
[2019-01-04 20:00] VITALS: BP 135/73
[2019-01-04] MEDS: Atorvastatin 20mg tab ORAL SCH (20:35)
--- NOTE | 2019-01-04 21:16 | General Progress Note ---
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 --> Hep panel and HIV negative, hep C++++ --> US abd to evaluate for cirrhosis and hsm reviewed --> Peripheral smear ordered to evaluate for blasts /schistocytes is wnl --> abx and other meds have been reviewed --> ok for ppx if plt >50k w/ either heparin or lovenox --> Transfuse if Plt < 20k and fever, or if Plt < 10k without fever --->Plt trend 70-->65-->44-->86-->122-->88-->100k-->140k-->154k-->78k # Reticulocytosis with elevated bilirubin that is indirect --> reviewed direct and indirect bilis again, trend could have liver disease --> liver US shows no significant cirrhosis --> evaluate as needed with gi team, recs apprecaited #. Chest pain, possible acute coronary syndrome. --> cards recs appreciated as well as pulm --> stress test prn # Hypertension. sbp goal <140 -- > as per cards recs # Dyslipidemia. # Chf # Coronary artery disease. # Sick sinus syndrome, status pacemaker. # Acute E. coli UTI s/p abx # Hep C+++ needs op management The timing of this note does not necessarily reflect the time of the patient was seen. Greatly appreciate consultation! Subjective HEENT: Denies: no symptoms, eye pain, blurred vision, tearing, double vision, ear pain, ear discharge, nose pain, nose congestion, throat pain, throat swelling, mouth pain, mouth swelling, other Gastrointestinal/Abdominal: Denies: no symptoms, abdomen distended, abdominal pain, black stools, tarry stools, blood in stool, constipated, diarrhea, difficulty swallowing, nausea, poor appetite, poor fluid intake, rectal bleeding , vomiting, other Neurologic/Psychiatric: Denies: no symptoms, anxiety, depressed, emotional problems, headache, numbness, paresthesia, pre-existing deficit, seizure, tingling, tremors, weakness, other Endocrine: Denies: no symptoms, excessive sweating, flushing, intolerance to cold, intolerance to heat, increased hunger, increased thirst, increased urine, unexplained weight gain, unexplained weight loss, other Allergies: Coded Allergies: No Known Allergies (Verified , 09/12/10) Subjective 11/27: no events to report, no f/c 11/28: seen by bedside, plt 65, plan for EGD and bone marrow biopsy tomorrow 11/29: BM biopsy today, no acute distress. 11/30: Had BM biopsy yesterday and now in reverse isolation. hgb 7.5, will transfuse as needed. 12/01: seen by bedside, plt remains low, awaiting bone marrow biopsy results. 12/02: No acute distress, no chest pain, no shortness of breath, wbc 2.7, hgb 7.3 , plt 50, will transfuse as needed. S/P BM biopsy 11/29/18, Results pending 12/04: bone marrow biopsy completed, and show myeloblasts, c/w mds/leukemia, requires close surveillance 12/05: hgb 6.9, Had blood transfusion today, plt up trending, no events 12/06: Seen by bedside, overall improved, still has complaint of chest pain, plt trending up 12/07: Given 1 unit prbc, continues to c/o chest pain, seen by cards 12/08: seen by bedside, complains of pain, plt 106, no events 12/09: awake, comfortable, plt trending down at 69, no events 12/11: awake, comfortable, on NC, plt remains low at 70. 12/12: awake, comfortable, plt 65, no events 12/13: seen by bedside, awake , comfortable, pending labs. 12/14: awake, comfortable, hgb 7.9, monitor, will transfuse as needed, plt trending down at 44, 12/15: seen by bedside, awake, comfortable, hgb 7, will transfuse as needed, plt 82. 12/16: awake comfortable, no events, hgb trending up 12/18: seen by bedside, alert, oriented, no acute distress 12/19: no events noted, no fevers or chills, cbc has been reviewed, had blasts on smear this wknd 12/20: seen by bedside, awake, comfortable, hgb 7.4, will transfuse as needed. 12/21: No overnight events reported, comfortable, hgb 8.1 12/22: no events to report, remains nausous, the platelet count has improved on its own 12/23: awaiting placement to snf at this time, following with cards, pulm 12/24: on 2l nc, received morphine today by rn, complaining of pain 12/25: no events today, no f/c, labs reviewed 12/26: no events report, will get one unit prbc today, has been ordered 12/27: hgb stable/improved but is after transfusion, no events otherwise no fevers 12/28: no events, feeling overall better 12/29: this am comfortable and sleeping, no events, cbc reviewed, no issues noted 12/30: no events to report, no night sweats, anemia panel reviewed 01/02: awake, alert, bed in lowest position 01/03: dc to [facility] once bed opens up, no events o/n 01/04: comfortable in bed, counts are lower, monitor for reverse isolation as needed Objective Last 24 Hour Vital Signs Date Time Temp Pulse Resp B/P (MAP) Pulse Ox O2 Delivery O2 Flow Rate FiO2 01/04/19 20:34 64 135/73 01/04/19 16:00 97.8 68 17 121/62 (81) 01/04/19 13:29 98.2 01/04/19 12:00 98.2 69 125/61 (82) 01/04/19 08:32 Room Air 01/04/19 08:17 76 110/50 01/04/19 08:00 18 110/50 (70) 98 01/04/19 04:00 98.4 63 19 117/57 (77) 97 01/04/19 00:00 98.9 63 19 96/50 (65) 96 Intake and Output 01/03/19 01/04/19 19:00 07:00 Intake Total 600 ml Output Total 1000 ml Balance 600 ml -1000 ml Other 600 ml Output Urine Total 1000 ml Height (Feet): 5 Height (Inches): 5.00 Weight (Pounds): 143 Objective General: well appearing, nad, alert Head: normocephalic, atraumatic Eyes: b/l eye PERRL, bilateral eye EOMI ENT: hearing grossly normal, normal pharynx Neck: full range of motion, supple, no meningismus Respiratory: chest non-tender, lungs clear, normal BSs, NC++ CV: regular rate, rhythm, no murmur GI: normal bowel sounds, non tender, no mass MSK: back normal, normal range of motion Psychiatric: mood/affect normal Skin: warm/dry Jose Alberto España MD Jan 04, 2019 21:15
[2019-01-05] VITALS: BP 111/50
[2019-01-05] MEDS: Morphine Sulfate 2mg/ml Inj(IV/IM USE ONLY) IM PRN ×6 (00:33→22:04)
[2019-01-05 04:27] VITALS: BP 114/56
[2019-01-05 08:00] VITALS: BP 108/52
[2019-01-05] MEDS: Carvedilol 12.5mg tab ORAL SCH ×2 (08:49→22:03)
--- NOTE | 2019-01-05 11:28 | GI Progress Note ---
Assessment/Plan Problems: (1) History of CVA (cerebrovascular accident) ICD Codes: Z86.73 - Personal history of transient ischemic attack (TIA), and cerebral infarction without residual deficits SNOMED: 743873904 (2) Severe anemia ICD Codes: D64.9 - Anemia, unspecified SNOMED: 357900724 (3) Abdominal pain ICD Codes: R10.9 - Unspecified abdominal pain SNOMED: 43804295 (4) GERD (gastroesophageal reflux disease) ICD Codes: K21.9 - Gastro-esophageal reflux disease without esophagitis SNOMED: 741709239 Status: stable Status Narrative Discussed with Dr. Mcguire. Assessment/Plan SUMMARY OF FINDINGS: 1. Gastritis. 2. A 6 cm hiatal hernia. RECOMMENDATIONS: Follow up biopsy results and treat accordingly. >> Mild chronic gastritis. Negative for H. pylori negative negative for dysplasia or malignancy. BM biopsy>> leukemia>> fu oncology monitor H&H, prn transfusions. bowel regime ppi, H2B qhs Zofran as needed fu labs Outpatient hep C treatment dc planning The patient was seen and examined at bedside and all new and available data was reviewed in the patients chart. I agree with the above findings, impression and plan. (Patient seen earlier today. Signature stamp does not reflect patient encounter time.). - Richie Mcguire MD Subjective Subjective Denies any abdominal pain Denies any constipation or diarrhea Tolerating diet Denies any nausea vomiting Objective Last 24 Hour Vital Signs Date Time Temp Pulse Resp B/P (MAP) Pulse Ox O2 Delivery O2 Flow Rate FiO2 01/05/19 09:20 98.2 01/05/19 08:49 65 108/52 01/05/19 08:00 98.2 65 18 108/52 (70) 100 01/05/19 08:00 98.2 65 19 108/52 (70) 100 01/05/19 04:27 98.9 63 18 114/56 (75) 98 01/05/19 00:00 98.8 63 18 111/50 (70) 98 01/04/19 21:00 Room Air 01/04/19 20:34 64 135/73 01/04/19 20:00 97.9 64 18 135/73 (93) 96 01/04/19 16:00 97.8 68 17 121/62 (81) 01/04/19 12:00 98.2 69 125/61 (82) Intake and Output 01/04/19 01/05/19 19:00 07:00 Intake Total 480 ml Balance 480 ml Intake Oral 480 ml # Voids 3 Height (Feet): 5 Height (Inches): 5.00 Weight (Pounds): 143 General Appearance: WD/WN, no apparent distress, alert Cardiovascular: normal rate Respiratory/Chest: normal breath sounds, no respiratory distress Abdominal Exam: normal bowel sounds, non tender, soft Extremities: normal range of motion, non-tender Jason Gray [employer] Jan 05, 2019 11:28
[2019-01-05 12:00] VITALS: BP 136/62
--- NOTE | 2019-01-05 14:52 | Pulmonology Progress Note ---
Assessment/Plan Problems: (1) Myeloblastic leukemia (2) Severe thrombocytopenia (3) ACS (acute coronary syndrome) (4) Cardiomyopathy (5) HTN (hypertension) (6) Pacemaker (7) Hypothyroidism (8) CAD (coronary artery disease) Assessment/Plan no new complains doing better, on fentNAYL PACH, pain better controlled dc all oral analgesics and try Fentanyl Patch doing better early leukemia check electrolytes no malignancy in bone marrow symptomatic treatment pain better controlled waiting for Medical application dc planning Subjective ROS Limited/Unobtainable: No Constitutional: Reports: no symptoms HEENT: Repors: no symptoms Allergies: Coded Allergies: No Known Allergies (Verified , 09/12/10) Objective Last 24 Hour Vital Signs Date Time Temp Pulse Resp B/P (MAP) Pulse Ox O2 Delivery O2 Flow Rate FiO2 01/05/19 13:23 97.8 01/05/19 12:00 97.8 63 18 136/62 (86) 100 01/05/19 09:00 Room Air 01/05/19 08:49 65 108/52 01/05/19 08:00 98.2 65 18 108/52 (70) 100 01/05/19 08:00 98.2 65 19 108/52 (70) 100 01/05/19 04:27 98.9 63 18 114/56 (75) 98 01/05/19 00:00 98.8 63 18 111/50 (70) 98 01/04/19 21:00 Room Air 01/04/19 20:34 64 135/73 01/04/19 20:00 97.9 64 18 135/73 (93) 96 01/04/19 16:00 97.8 68 17 121/62 (81) Intake and Output 01/04/19 01/05/19 19:00 07:00 Intake Total 480 ml Balance 480 ml Intake Oral 480 ml # Voids 3 Objective General Appearance: cachetic Lines, tubes and drains: peripheral HEENT: normocephalic, atraumatic Neck: non-tender, normal alignment Respiratory/Chest: chest wall non-tender, lungs clear Breasts: no masses Cardiovascular/Chest: normal peripheral pulses, normal rate Abdomen: normal bowel sounds, non tender Genitourinary/Rectal: normal genital exam Extremities: normal range of motion Skin Exam: normal pigmentation 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: 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 grossly normal Microbiology Date/Time Source Procedure Growth Status 01/02/19 22:00 Urine,Clean Catch Urine Culture - Preliminary Mixed Gram Positive Organism Resulted Current Medications Medications (Trade) Dose Ordered Sig/Scout Route PRN Reason Start Time Stop Time Status Last Admin Dose Admin Atorvastatin Calcium (Lipitor) 40 mg QHS ORAL 12/19/18 21:00 01/18/19 20:59 01/04/19 20:35 Carvedilol (Coreg) 12.5 mg EVERY 12 HOURS ORAL 12/19/18 09:00 01/18/19 08:59 01/05/19 08:49 Clonidine HCl (Catapres Tab) 0.1 mg Q2H PRN ORAL For High Blood Pressure 12/06/18 21:15 01/05/19 21:14 12/07/18 08:25 Docusate Sodium (Colace) 100 mg Q12H PRN ORAL Constipation 12/18/18 21:45 01/17/19 21:29 12/29/18 07:58 Fentanyl (Duragesic) 1 patch Q72H TDERMAL 01/01/19 18:00 01/08/19 17:59 01/04/19 18:45 Furosemide (Lasix) 20 mg DAILY ORAL 12/19/18 17:45 01/18/19 17:44 01/05/19 08:49 Miscellaneous Medication (fentaNYL Destruction) 1 ea Q72H MISC 01/01/19 17:59 01/31/19 17:58 01/01/19 17:28 Morphine Sulfate (Morphine Sulfate) 2 mg Q4H PRN IM Severe Pain (Pain Scale 7-10) 12/30/18 08:30 01/06/19 08:29 01/05/19 12:53 Naloxone HCl (Narcan) 0.1 mg PRN IV Sedation scale 3 or 4 12/08/18 15:15 01/07/19 15:14 Nitroglycerin (Ntg) 0.4 mg Q5M PRN SL Prn Chest Pain 12/25/18 16:55 01/24/19 16:54 12/30/18 15:51 Ondansetron HCl (Zofran ODT) 4 mg Q4H PRN ORAL Nausea & Vomiting 12/07/18 10:00 01/06/19 09:59 01/02/19 18:47 Polyethylene Glycol (Miralax) 17 gm DAILYPRN PRN ORAL Constipation 12/28/18 19:00 01/27/19 18:59 12/29/18 07:58 Chepe Luong MD Jan 05, 2019 14:52
[2019-01-05 15:53] VITALS: BP 114/85
--- NOTE | 2019-01-05 16:36 | General Progress Note ---
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 --> Hep panel and HIV negative, hep C++++ --> US abd to evaluate for cirrhosis and hsm reviewed --> Peripheral smear ordered to evaluate for blasts /schistocytes is wnl --> abx and other meds have been reviewed --> ok for ppx if plt >50k w/ either heparin or lovenox --> Transfuse if Plt < 20k and fever, or if Plt < 10k without fever --->Plt trend 70-->65-->44-->86-->122-->88-->100k-->140k-->154k-->78k # Reticulocytosis with elevated bilirubin that is indirect --> reviewed direct and indirect bilis again, trend could have liver disease --> liver US shows no significant cirrhosis --> evaluate as needed with gi team, recs apprecaited #. Chest pain, possible acute coronary syndrome. --> cards recs appreciated as well as pulm --> stress test prn # Hypertension. sbp goal <140 -- > as per cards recs # Dyslipidemia. # Chf # Coronary artery disease. # Sick sinus syndrome, status pacemaker. # Acute E. coli UTI s/p abx # Hep C+++ needs op management The timing of this note does not necessarily reflect the time of the patient was seen. Greatly appreciate consultation! Subjective Allergies: Coded Allergies: No Known Allergies (Verified , 09/12/10) Subjective 11/27: no events to report, no f/c 11/28: seen by bedside, plt 65, plan for EGD and bone marrow biopsy tomorrow 11/29: BM biopsy today, no acute distress. 11/30: Had BM biopsy yesterday and now in reverse isolation. hgb 7.5, will transfuse as needed. 12/01: seen by bedside, plt remains low, awaiting bone marrow biopsy results. 12/02: No acute distress, no chest pain, no shortness of breath, wbc 2.7, hgb 7.3 , plt 50, will transfuse as needed. S/P BM biopsy 11/29/18, Results pending 12/04: bone marrow biopsy completed, and show myeloblasts, c/w mds/leukemia, requires close surveillance 12/05: hgb 6.9, Had blood transfusion today, plt up trending, no events 12/06: Seen by bedside, overall improved, still has complaint of chest pain, plt trending up 12/07: Given 1 unit prbc, continues to c/o chest pain, seen by cards 12/08: seen by bedside, complains of pain, plt 106, no events 12/09: awake, comfortable, plt trending down at 69, no events 12/11: awake, comfortable, on NC, plt remains low at 70. 12/12: awake, comfortable, plt 65, no events 12/13: seen by bedside, awake , comfortable, pending labs. 12/14: awake, comfortable, hgb 7.9, monitor, will transfuse as needed, plt trending down at 44, 12/15: seen by bedside, awake, comfortable, hgb 7, will transfuse as needed, plt 82. 12/16: awake comfortable, no events, hgb trending up 12/18: seen by bedside, alert, oriented, no acute distress 12/19: no events noted, no fevers or chills, cbc has been reviewed, had blasts on smear this wknd 12/20: seen by bedside, awake, comfortable, hgb 7.4, will transfuse as needed. 12/21: No overnight events reported, comfortable, hgb 8.1 12/22: no events to report, remains nausous, the platelet count has improved on its own 12/23: awaiting placement to snf at this time, following with cards, pulm 12/24: on 2l nc, received morphine today by rn, complaining of pain 12/25: no events today, no f/c, labs reviewed 12/26: no events report, will get one unit prbc today, has been ordered 12/27: hgb stable/improved but is after transfusion, no events otherwise no fevers 12/28: no events, feeling overall better 12/29: this am comfortable and sleeping, no events, cbc reviewed, no issues noted 12/30: no events to report, no night sweats, anemia panel reviewed 01/02: awake, alert, bed in lowest position 01/03: dc to [facility] once bed opens up, no events o/n 01/04: comfortable in bed, counts are lower, monitor for reverse isolation as needed 01/05: labs pending, no issues, besides intermittent cp, seen by cards, morphine given by rn Objective Last 24 Hour Vital Signs Date Time Temp Pulse Resp B/P (MAP) Pulse Ox O2 Delivery O2 Flow Rate FiO2 01/05/19 15:53 97.8 63 20 114/85 (95) 97 01/05/19 13:23 97.8 01/05/19 12:00 97.8 63 18 136/62 (86) 100 01/05/19 09:00 Room Air 01/05/19 08:49 65 108/52 01/05/19 08:00 98.2 65 18 108/52 (70) 100 01/05/19 08:00 98.2 65 19 108/52 (70) 100 01/05/19 04:27 98.9 63 18 114/56 (75) 98 01/05/19 00:00 98.8 63 18 111/50 (70) 98 01/04/19 21:00 Room Air 01/04/19 20:34 64 135/73 01/04/19 20:00 97.9 64 18 135/73 (93) 96 Intake and Output 01/04/19 01/05/19 19:00 07:00 Intake Total 480 ml Balance 480 ml Intake Oral 480 ml # Voids 3 Height (Feet): 5 Height (Inches): 5.00 Weight (Pounds): 143 Abdomen: no mass Objective General: well appearing, nad, alert Head: normocephalic, atraumatic Eyes: b/l eye PERRL, bilateral eye EOMI ENT: hearing grossly normal, normal pharynx Neck: full range of motion, supple, no meningismus Respiratory: chest non-tender, lungs clear, normal BSs, NC++ CV: regular rate, rhythm, no murmur GI: normal bowel sounds, non tender, no mass MSK: back normal, normal range of motion Psychiatric: mood/affect normal Skin: warm/dry Jose Alberto España MD Jan 05, 2019 16:36
--- NOTE | 2019-01-05 17:21 | Cardiac Electrophysiology PN ---
Assessment/Plan Assessment/Plan 1. CP and Hx of CABG. Likely due to severe anemia. Ruled out ID. Hold off on stress test in view of acute leukemia On Lipitor and Coreg. Off Aspirin and Plavix for thrombocytopenia 2. Cardiomyopathy. EF now 55%. On Coreg 12.5 mg bid and Lasix 20 daily 3. Status [address] [facility] atriobiventricular defibrillator. Interrogated and showed Nl Fx 4. Severe anemia, S/P multiple PRBC and platelet transfusions . 5. Pancytopenia. Off Aspirin and PLavix S/P platelet and PRBC transfusion. S/P BM biopsy 11/29/18 that confirmed Leukemia 6. Placement DW RN Subjective Subjective No CP or SOB. Awaiting placement as had ran out of insurance Objective Last 24 Hour Vital Signs Date Time Temp Pulse Resp B/P (MAP) Pulse Ox O2 Delivery O2 Flow Rate FiO2 01/05/19 15:53 97.8 63 20 114/85 (95) 97 01/05/19 13:23 97.8 01/05/19 12:00 97.8 63 18 136/62 (86) 100 01/05/19 09:00 Room Air 01/05/19 08:49 65 108/52 01/05/19 08:00 98.2 65 18 108/52 (70) 100 01/05/19 08:00 98.2 65 19 108/52 (70) 100 01/05/19 04:27 98.9 63 18 114/56 (75) 98 01/05/19 00:00 98.8 63 18 111/50 (70) 98 01/04/19 21:00 Room Air 01/04/19 20:34 64 135/73 01/04/19 20:00 97.9 64 18 135/73 (93) 96 Intake and Output 01/04/19 01/05/19 19:00 07:00 Intake Total 480 ml Balance 480 ml Intake Oral 480 ml # Voids 3 Microbiology Date/Time Source Procedure Growth Status 01/02/19 22:00 Urine,Clean Catch Urine Culture - Preliminary Mixed Gram Positive Organism Resulted Objective HEAD AND NECK: No JVD. LUNGS: Coarse rhonchi. CARDIOVASCULAR: Regular S1 and S2 with no gallop or murmur. Sternotomy intact. ICD in left subclavian. ABDOMEN: Soft. EXTREMITIES: 1+ pitting edema. Satinder Gee MD Jan 05, 2019 17:21
--- NOTE | 2019-01-05 19:11 | Internal Med Progress Note ---
Subjective Date of Service: Jan 05, 2019 Physician Name Nikhil West Attending Physician Abdias Hunter MD Current Medications Medications (Trade) Dose Ordered Sig/Scout Route PRN Reason Start Time Stop Time Status Last Admin Dose Admin Atorvastatin Calcium (Lipitor) 40 mg QHS ORAL 12/19/18 21:00 01/18/19 20:59 01/04/19 20:35 Carvedilol (Coreg) 12.5 mg EVERY 12 HOURS ORAL 12/19/18 09:00 01/18/19 08:59 01/05/19 08:49 Clonidine HCl (Catapres Tab) 0.1 mg Q2H PRN ORAL For High Blood Pressure 12/06/18 21:15 01/05/19 21:14 12/07/18 08:25 Docusate Sodium (Colace) 100 mg Q12H PRN ORAL Constipation 12/18/18 21:45 01/17/19 21:29 12/29/18 07:58 Fentanyl (Duragesic) 1 patch Q72H TDERMAL 01/01/19 18:00 01/08/19 17:59 01/04/19 18:45 Furosemide (Lasix) 20 mg DAILY ORAL 12/19/18 17:45 01/18/19 17:44 01/05/19 08:49 Miscellaneous Medication (fentaNYL Destruction) 1 ea Q72H MISC 01/01/19 17:59 01/31/19 17:58 01/01/19 17:28 Morphine Sulfate (Morphine Sulfate) 2 mg Q4H PRN IM For Pain 01/05/19 15:15 01/12/19 15:14 01/05/19 17:55 Naloxone HCl (Narcan) 0.1 mg PRN IV Sedation scale 3 or 4 12/08/18 15:15 01/07/19 15:14 Nitroglycerin (Ntg) 0.4 mg Q5M PRN SL Prn Chest Pain 12/25/18 16:55 01/24/19 16:54 12/30/18 15:51 Ondansetron HCl (Zofran ODT) 4 mg Q4H PRN ORAL Nausea & Vomiting 12/07/18 10:00 01/06/19 09:59 01/02/19 18:47 Polyethylene Glycol (Miralax) 17 gm DAILYPRN PRN ORAL Constipation 12/28/18 19:00 01/27/19 18:59 12/29/18 07:58 Allergies: Coded Allergies: No Known Allergies (Verified , 09/12/10) ROS Limited/Unobtainable: No Constitutional: Reports: no symptoms HEENT: Reports: no symptoms Cardiovascular: Reports: no symptoms Respiratory: Reports: no symptoms Gastrointestinal/Abdominal: Reports: no symptoms Genitourinary: Reports: no symptoms Neurologic/Psychiatric: Reports: no symptoms Subjective 78 YO M admitted with chest pain. Now pancytopenia and UTI. Cover for Int Med- Dr Hunter. Objective Last Vital Signs Date Time Temp Pulse Resp B/P (MAP) Pulse Ox O2 Delivery O2 Flow Rate FiO2 01/05/19 18:25 97.8 01/05/19 15:53 63 20 114/85 (95) 97 01/05/19 09:00 Room Air 12/29/18 15:43 2.0 28 Microbiology Date/Time Source Procedure Growth Status 01/02/19 22:00 Urine,Clean Catch Urine Culture - Preliminary Mixed Gram Positive Organism Resulted Intake and Output 01/04/19 01/05/19 18:59 06:59 Intake Total 480 ml Balance 480 ml Intake Oral 480 ml # Voids 3 Objective PHYSICAL EXAMINATION: GENERAL: The patient awake, responsive, no acute distress. HEAD AND NECK: Pupils are equal and reactive to light. Extraocular movements are intact. Neck was supple. No JVD LUNGS: Good air entry. No wheeze or rales. HEART: S1, S2. Distant heart sounds. No murmur or gallops. Pacemaker in left-sided chest wall. ABDOMEN: Soft, nondistended, nontender. EXTREMITIES: No cyanosis, clubbing, edema. Varicose veins, bilateral lower extremities. NEUROLOGIC: Cranial nerves II through XII grossly intact. Motor is 5/5 in all extremities. Gait is intact. RECTAL: Refused and deferred. GENITOURINARY: Refused and deferred. PSYCHIATRIC: Mood and affect is depressed. Assessment/Plan Assessment/Plan ASSESSMENT: 1. Chest pain, possible acute coronary syndrome. 2. Hypertension. 3. Dyslipidemia. 4. Congestive heart failure. 5. Coronary artery disease. 6. Sick sinus syndrome, status pacemaker. 7. UTI. 8. Pancytopenia; S/P transfusion 5 units PRBC total-Severe anemia, Thrombocytopenia and leukopenia-?leukemia? see onc note. PLAN: Admit the patient to telemetry. Discussed case with Dr. Gee from Cardiology Electrophysiology. Await cardiac nuclear stress test-outpatient Dr. Luong, Pulmonary Critical Care. Urine cult=E. Coli. S/P Rocephin. DVT prophylaxis, heparin subcutaneous. Code status, Full Code. The patient is expected to be in the hospital greater than 2 days Discharge paln: [facility] S/P transfusion 2 units PRBC on 11/19/18 See Hematology consult-?acute myelocytic leukemia? Discharge to [facility]-see social work note Nikhil West MD Jan 05, 2019 19:11
[2019-01-05 20:00] VITALS: BP 131/57
[2019-01-05] MEDS: Atorvastatin 20mg tab ORAL SCH (22:03)
[2019-01-06] VITALS (7 sets, daily range): BP systolic 108–138; BP diastolic 47–85
[2019-01-06] MEDS: Morphine Sulfate 2mg/ml Inj(IV/IM USE ONLY) IM PRN ×6 (02:09→23:49)
[2019-01-06 05:49] LABS: HEMATOCRIT 23.7 % (42.0-52.0); HEMOGLOBIN 7.4 G/DL (14.2-18.0); MEAN CORPUSCULAR VOLUME 78 FL (80-99); PLATELET COUNT 93 K/UL (150-450); RED BLOOD COUNT 3.04 M/UL (4.70-6.10); RED CELL DISTRIBUTION WIDTH 22.9 % (11.6-14.8); WHITE BLOOD COUNT 4.3 K/UL (4.8-10.8)
[2019-01-06] MEDS: Carvedilol 12.5mg tab ORAL SCH ×2 (08:13→20:35)
--- NOTE | 2019-01-06 12:37 | GI Progress Note ---
Assessment/Plan Problems: (1) History of CVA (cerebrovascular accident) ICD Codes: Z86.73 - Personal history of transient ischemic attack (TIA), and cerebral infarction without residual deficits SNOMED: 989799868 (2) Severe anemia ICD Codes: D64.9 - Anemia, unspecified SNOMED: 274738985 (3) Abdominal pain ICD Codes: R10.9 - Unspecified abdominal pain SNOMED: 36940745 (4) GERD (gastroesophageal reflux disease) ICD Codes: K21.9 - Gastro-esophageal reflux disease without esophagitis SNOMED: 270392591 Status: stable Status Narrative Discussed with Dr. Mcguire. Assessment/Plan SUMMARY OF FINDINGS: 1. Gastritis. 2. A 6 cm hiatal hernia. RECOMMENDATIONS: Follow up biopsy results and treat accordingly. >> Mild chronic gastritis. Negative for H. pylori negative negative for dysplasia or malignancy. BM biopsy>> leukemia>> fu oncology monitor H&H, prn transfusions. bowel regime ppi, H2B qhs Zofran as needed fu labs Outpatient hep C treatment dc planning The patient was seen and examined at bedside and all new and available data was reviewed in the patients chart. I agree with the above findings, impression and plan. (Patient seen earlier today. Signature stamp does not reflect patient encounter time.). - Richie Mcguire MD Subjective Gastrointestinal/Abdominal: Reports: no symptoms Subjective Denies any abdominal pain Denies any constipation or diarrhea Tolerating diet Denies any nausea vomiting Objective Last 24 Hour Vital Signs Date Time Temp Pulse Resp B/P (MAP) Pulse Ox O2 Delivery O2 Flow Rate FiO2 01/06/19 10:47 99.0 01/06/19 09:00 Room Air 01/06/19 08:13 69 120/54 01/06/19 08:00 99.0 63 18 120/54 (76) 100 01/06/19 04:00 98.5 65 18 120/59 (79) 100 01/06/19 00:00 98.0 64 18 108/47 (67) 100 01/05/19 22:03 66 131/57 01/05/19 21:00 Room Air 01/05/19 20:00 97.9 66 18 131/57 (81) 100 01/05/19 15:53 97.8 63 20 114/85 (95) 97 4/4/19 13:23 97.8 Intake and Output 01/05/19 01/06/19 18:59 06:59 Intake Total 500 ml Output Total 400 ml Balance 500 ml -400 ml Intake Oral 500 ml Output Urine Total 400 ml # Voids 2 1 Laboratory Tests Test 01/06/19 05:12 White Blood Count 4.3 K/UL (4.8-10.8) L Red Blood Count 3.04 M/UL (4.70-6.10) L Hemoglobin 7.4 G/DL (14.2-18.0) L Hematocrit 23.7 % (42.0-52.0) L Mean Corpuscular Volume 78 FL (80-99) L Mean Corpuscular Hemoglobin 24.4 PG (27.0-31.0) L Mean Corpuscular Hemoglobin Concent 31.4 G/DL (32.0-36.0) L Red Cell Distribution Width 22.9 % (11.6-14.8) H Platelet Count 93 K/UL (150-450) L Mean Platelet Volume 13.8 FL (6.5-10.1) H Neutrophils (%) (Auto) % (45.0-75.0) Lymphocytes (%) (Auto) % (20.0-45.0) Monocytes (%) (Auto) % (1.0-10.0) Eosinophils (%) (Auto) % (0.0-3.0) Basophils (%) (Auto) % (0.0-2.0) Differential Total Cells Counted 100 Neutrophils % (Manual) 18 % (45-75) L Lymphocytes % (Manual) 53 % (20-45) H Monocytes % (Manual) 20 % (1-10) H Eosinophils % (Manual) 7 % (0-3) H Basophils % (Manual) 1 % (0-2) Band Neutrophils 1 % (0-8) Nucleated Red Blood Cells 1 /100 WBC Platelet Estimate Decreased L Platelet Morphology Normal Hypochromasia 3+ Anisocytosis 3+ Microcytosis 1+ Height (Feet): 5 Height (Inches): 5.00 Weight (Pounds): 143 General Appearance: WD/WN, no apparent distress, alert Cardiovascular: normal rate Respiratory/Chest: normal breath sounds, no respiratory distress Abdominal Exam: normal bowel sounds, non tender, soft Extremities: normal range of motion, non-tender Gray,AngelaTrina REFERENCE ASSISTANT Jan 06, 2019 12:37
--- NOTE | 2019-01-06 14:29 | Pulmonology Progress Note ---
Assessment/Plan Problems: (1) Myeloblastic leukemia (2) Severe thrombocytopenia (3) ACS (acute coronary syndrome) (4) Cardiomyopathy (5) HTN (hypertension) (6) Pacemaker (7) Hypothyroidism (8) CAD (coronary artery disease) Assessment/Plan no new complains doing better, on fentNAYL PACH, pain better controlled dc all oral analgesics and try Fentanyl Patch doing better early leukemia check electrolytes no malignancy in bone marrow symptomatic treatment pain better controlled waiting for Medical application dc planning Subjective ROS Limited/Unobtainable: No Constitutional: Reports: no symptoms HEENT: Repors: no symptoms Respiratory: Reports: no symptoms Allergies: Coded Allergies: No Known Allergies (Verified , 09/12/10) Objective Last 24 Hour Vital Signs Date Time Temp Pulse Resp B/P (MAP) Pulse Ox O2 Delivery O2 Flow Rate FiO2 01/06/19 12:00 97.9 80 18 127/80 (96) 96 01/06/19 10:47 99.0 01/06/19 09:00 Room Air 01/06/19 08:13 69 120/54 01/06/19 08:00 99.0 63 18 120/54 (76) 100 01/06/19 04:00 98.5 65 18 120/59 (79) 100 01/06/19 00:00 98.0 64 18 108/47 (67) 100 01/05/19 22:03 66 131/57 01/05/19 21:00 Room Air 01/05/19 20:00 97.9 66 18 131/57 (81) 100 01/05/19 15:53 97.8 63 20 114/85 (95) 97 Intake and Output 01/05/19 01/06/19 19:00 07:00 Intake Total 500 ml Output Total 400 ml Balance 500 ml -400 ml Intake Oral 500 ml Output Urine Total 400 ml # Voids 2 1 Objective General Appearance: cachetic Lines, tubes and drains: peripheral HEENT: normocephalic, atraumatic Neck: non-tender, normal alignment Respiratory/Chest: chest wall non-tender, lungs clear Breasts: no masses Cardiovascular/Chest: normal peripheral pulses, normal rate Abdomen: normal bowel sounds, non tender Genitourinary/Rectal: normal genital exam Extremities: normal range of motion Skin Exam: normal pigmentation Neurologic: economic developer II-XII grossly normal Laboratory Tests 01/06/19 05:12: White Blood Count 4.3L, Red Blood Count 3.04L, Hemoglobin 7.4L, Hematocrit 23.7L , Mean Corpuscular Volume 78L, Mean Corpuscular Hemoglobin 24.4L, Mean Corpuscular Hemoglobin Concent 31.4L, Red Cell Distribution Width 22.9H, Platelet Count 93L, Mean Platelet Volume 13.8H, Neutrophils (%) (Auto) , Lymphocytes (%) (Auto) , Monocytes (%) (Auto) , Eosinophils (%) (Auto) , Basophils (%) (Auto) , Differential Total Cells Counted 100, Neutrophils % ( Manual) 18L, Lymphocytes % (Manual) 53H, Monocytes % (Manual) 20H, Eosinophils % (Manual) 7H, Basophils % (Manual) 1, Band Neutrophils 1, Nucleated Red Blood Cells 1, Platelet Estimate DecreasedL, Platelet Morphology Normal, Hypochromasia 3+, Anisocytosis 3+, Microcytosis 1+ Current Medications Medications (Trade) Dose Ordered Sig/Scout Route PRN Reason Start Time Stop Time Status Last Admin Dose Admin Atorvastatin Calcium (Lipitor) 40 mg QHS ORAL 12/19/18 21:00 01/18/19 20:59 01/05/19 22:03 Carvedilol (Coreg) 12.5 mg EVERY 12 HOURS ORAL 12/19/18 09:00 01/18/19 08:59 01/06/19 08:13 Docusate Sodium (Colace) 100 mg Q12H PRN ORAL Constipation 12/18/18 21:45 01/17/19 21:29 12/29/18 07:58 Fentanyl (Duragesic) 1 patch Q72H TDERMAL 01/01/19 18:00 01/08/19 17:59 01/04/19 18:45 Furosemide (Lasix) 20 mg DAILY ORAL 12/19/18 17:45 01/18/19 17:44 01/06/19 08:08 Miscellaneous Medication (fentaNYL Destruction) 1 ea Q72H MISC 01/01/19 17:59 01/31/19 17:58 01/01/19 17:28 Morphine Sulfate (Morphine Sulfate) 2 mg Q4H PRN IM For Pain 01/05/19 15:15 01/12/19 15:14 01/06/19 14:21 Naloxone HCl (Narcan) 0.1 mg PRN IV Sedation scale 3 or 4 12/08/18 15:15 01/07/19 15:14 Nitroglycerin (Ntg) 0.4 mg Q5M PRN SL Prn Chest Pain 12/25/18 16:55 01/24/19 16:54 12/30/18 15:51 Polyethylene Glycol (Miralax) 17 gm DAILYPRN PRN ORAL Constipation 12/28/18 19:00 01/27/19 18:59 12/29/18 07:58 Chepe Luong MD Jan 06, 2019 14:29
--- NOTE | 2019-01-06 15:54 | Cardiac Electrophysiology PN ---
Assessment/Plan Assessment/Plan 1. CP and Hx of CABG. Likely due to severe anemia. Ruled out MO. Hold off on stress test in view of acute leukemia On Lipitor and Coreg. Off Aspirin and Plavix for thrombocytopenia 2. Cardiomyopathy. EF now 55%. On Coreg 12.5 mg bid and Lasix 20 daily 3[address] Status post [facility] atriobiventricular defibrillator. Interrogated and showed Nl Fx 4. Severe anemia, S/P multiple PRBC and platelet transfusions . 5. Pancytopenia. Off Aspirin and PLavix S/P platelet and PRBC transfusion. BM biopsy 11/29/[address] Stock 6. Placement DW RN Subjective Subjective No CP or SOB. Feeling better. Objective Last 24 Hour Vital Signs Date Time Temp Pulse Resp B/P (MAP) Pulse Ox O2 Delivery O2 Flow Rate FiO2 01/06/19 14:51 97.9 01/06/19 12:00 97.9 80 18 127/80 (96) 96 01/06/19 09:00 Room Air 01/06/19 08:13 69 120/54 01/06/19 08:00 99.0 63 18 120/54 (76) 100 01/06/19 04:00 98.5 65 18 120/59 (79) 100 01/06/19 00:00 98.0 64 18 108/47 (67) 100 01/05/19 22:03 66 131/57 01/05/19 21:00 Room Air 01/05/19 20:00 97.9 66 18 131/57 (81) 100 01/05/19 15:53 97.8 63 20 114/85 (95) 97 Intake and Output 01/05/19 01/06/19 19:00 07:00 Intake Total 500 ml Output Total 400 ml Balance 500 ml -400 ml Intake Oral 500 ml Output Urine Total 400 ml # Voids 2 1 Laboratory Tests Test 01/06/19 05:12 White Blood Count 4.3 K/UL (4.8-10.8) L Red Blood Count 3.04 M/UL (4.70-6.10) L Hemoglobin 7.4 G/DL (14.2-18.0) L Hematocrit 23.7 % (42.0-52.0) L Mean Corpuscular Volume 78 FL (80-99) L Mean Corpuscular Hemoglobin 24.4 PG (27.0-31.0) L Mean Corpuscular Hemoglobin Concent 31.4 G/DL (32.0-36.0) L Red Cell Distribution Width 22.9 % (11.6-14.8) H Platelet Count 93 K/UL (150-450) L Mean Platelet Volume 13.8 FL (6.5-10.1) H Neutrophils (%) (Auto) % (45.0-75.0) Lymphocytes (%) (Auto) % (20.0-45.0) Monocytes (%) (Auto) % (1.0-10.0) Eosinophils (%) (Auto) % (0.0-3.0) Basophils (%) (Auto) % (0.0-2.0) Differential Total Cells Counted 100 Neutrophils % (Manual) 18 % (45-75) L Lymphocytes % (Manual) 53 % (20-45) H Monocytes % (Manual) 20 % (1-10) H Eosinophils % (Manual) 7 % (0-3) H Basophils % (Manual) 1 % (0-2) Band Neutrophils 1 % (0-8) Nucleated Red Blood Cells 1 /100 WBC Platelet Estimate Decreased L Platelet Morphology Normal Hypochromasia 3+ Anisocytosis 3+ Microcytosis 1+ Objective HEAD AND NECK: No JVD. LUNGS: Coarse rhonchi. CARDIOVASCULAR: Regular S1 and S2 with no gallop or murmur. Sternotomy intact. ICD in left subclavian. ABDOMEN: Soft. EXTREMITIES: 1+ pitting edema. Satinder Gee MD Jan 06, 2019 15:54
--- NOTE | 2019-01-06 16:27 | Internal Med Progress Note ---
Subjective Physician Name Abdias Hunter Attending Physician Abdias Hunter MD Current Medications Medications (Trade) Dose Ordered Sig/Scout Route PRN Reason Start Time Stop Time Status Last Admin Dose Admin Atorvastatin Calcium (Lipitor) 40 mg QHS ORAL 12/19/18 21:00 01/18/19 20:59 01/05/19 22:03 Carvedilol (Coreg) 12.5 mg EVERY 12 HOURS ORAL 12/19/18 09:00 01/18/19 08:59 01/06/19 08:13 Docusate Sodium (Colace) 100 mg Q12H PRN ORAL Constipation 12/18/18 21:45 01/17/19 21:29 12/29/18 07:58 Fentanyl (Duragesic) 1 patch Q72H TDERMAL 01/01/19 18:00 01/08/19 17:59 01/04/19 18:45 Furosemide (Lasix) 20 mg DAILY ORAL 12/19/18 17:45 01/18/19 17:44 01/06/19 08:08 Miscellaneous Medication (fentaNYL Destruction) 1 ea Q72H MISC 01/01/19 17:59 01/31/19 17:58 01/01/19 17:28 Morphine Sulfate (Morphine Sulfate) 2 mg Q4H PRN IM For Pain 01/05/19 15:15 01/12/19 15:14 01/06/19 14:21 Naloxone HCl (Narcan) 0.1 mg PRN IV Sedation scale 3 or 4 12/08/18 15:15 01/07/19 15:14 Nitroglycerin (Ntg) 0.4 mg Q5M PRN SL Prn Chest Pain 12/25/18 16:55 01/24/19 16:54 12/30/18 15:51 Polyethylene Glycol (Miralax) 17 gm DAILYPRN PRN ORAL Constipation 12/28/18 19:00 01/27/19 18:59 12/29/18 07:58 Allergies: Coded Allergies: No Known Allergies (Verified , 09/12/10) Subjective Alert, oriented, no acute distress, no chest pain. Objective Last Vital Signs Date Time Temp Pulse Resp B/P (MAP) Pulse Ox O2 Delivery O2 Flow Rate FiO2 01/06/19 14:51 97.9 01/06/19 12:00 80 18 127/80 (96) 96 01/06/19 09:00 Room Air 12/29/18 15:43 2.0 28 Laboratory Tests Test 01/06/19 05:12 White Blood Count 4.3 K/UL (4.8-10.8) L Red Blood Count 3.04 M/UL (4.70-6.10) L Hemoglobin 7.4 G/DL (14.2-18.0) L Hematocrit 23.7 % (42.0-52.0) L Mean Corpuscular Volume 78 FL (80-99) L Mean Corpuscular Hemoglobin 24.4 PG (27.0-31.0) L Mean Corpuscular Hemoglobin Concent 31.4 G/DL (32.0-36.0) L Red Cell Distribution Width 22.9 % (11.6-14.8) H Platelet Count 93 K/UL (150-450) L Mean Platelet Volume 13.8 FL (6.5-10.1) H Neutrophils (%) (Auto) % (45.0-75.0) Lymphocytes (%) (Auto) % (20.0-45.0) Monocytes (%) (Auto) % (1.0-10.0) Eosinophils (%) (Auto) % (0.0-3.0) Basophils (%) (Auto) % (0.0-2.0) Differential Total Cells Counted 100 Neutrophils % (Manual) 18 % (45-75) L Lymphocytes % (Manual) 53 % (20-45) H Monocytes % (Manual) 20 % (1-10) H Eosinophils % (Manual) 7 % (0-3) H Basophils % (Manual) 1 % (0-2) Band Neutrophils 1 % (0-8) Nucleated Red Blood Cells 1 /100 WBC Platelet Estimate Decreased L Platelet Morphology Normal Hypochromasia 3+ Anisocytosis 3+ Microcytosis 1+ Intake and Output 01/05/19 01/06/19 19:00 07:00 Intake Total 500 ml Output Total 400 ml Balance 500 ml -400 ml Intake Oral 500 ml Output Urine Total 400 ml # Voids 2 1 Objective General: No acute distress, awake and alert HEENT: NCAT, sclera anicteric, PERRL, EOMI. Neck: Supple, no significant jugular venous distention, Lungs: Good inspiratory effort, clear to auscultation bilaterally, no Wheeze or Rales. Heart: Regular rate and rhythm, normal S1/S2, no murmur, AICD @ LCW. Abdomen: soft, nontender, nondistended. Normoactive bowel sounds. Extremities: No Cyanosis , clubbing or edema. Neuro: A&O x 3, Able to move all extremities Assessment/Plan Assessment/Plan 1. Chest pain, possible acute coronary syndrome. 2. Hypertension. 3. Dyslipidemia. 4. Congestive heart failure. 5. Coronary artery disease. 6. Sick sinus syndrome, status pacemaker. 7. Acute E. coli UTI. 8. 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 PLAN: Dr. Gee from Cardiology Electrophysiology. Dr. Luong, Pulmonary Critical Care. DVT prophylaxis: SCD Code status, Full Code. S/P transfusion 2 units PRBC on 11/19/18 waiting for SNF placement. Abx: Off monitor Labs Abdias Hunter MD Jan 06, 2019 16:27
--- NOTE | 2019-01-06 18:17 | General Progress Note ---
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 --> Hep panel and HIV negative, hep C++++ --> US abd to evaluate for cirrhosis and hsm reviewed --> Peripheral smear ordered to evaluate for blasts /schistocytes is wnl --> abx and other meds have been reviewed --> ok for ppx if plt >50k w/ either heparin or lovenox --> Transfuse if Plt < 20k and fever, or if Plt < 10k without fever --->Plt trend 70-->65-->44-->86-->122-->88-->100k-->140k-->154k-->78k # Reticulocytosis with elevated bilirubin that is indirect --> reviewed direct and indirect bilis again, trend could have liver disease --> liver US shows no significant cirrhosis --> evaluate as needed with gi team, recs apprecaited #. Chest pain, possible acute coronary syndrome. --> cards recs appreciated as well as pulm --> stress test prn # Hypertension. sbp goal <140 -- > as per cards recs # Dyslipidemia. # Chf # Coronary artery disease. # Sick sinus syndrome, status pacemaker. # Acute E. coli UTI s/p abx # Hep C+++ needs op management The timing of this note does not necessarily reflect the time of the patient was seen. Greatly appreciate consultation! Subjective Constitutional: Denies: no symptoms, chills, diaphoresis, fever, malaise, weakness, other HEENT: Denies: no symptoms, eye pain, blurred vision, tearing, double vision, ear pain, ear discharge, nose pain, nose congestion, throat pain, throat swelling, mouth pain, mouth swelling, other Cardiovascular: Denies: no symptoms, chest pain, edema, irregular heart rate, lightheadedness, palpitations, syncope, other Respiratory: Denies: no symptoms, cough, orthopnea, shortness of breath, SOB with excertion, SOB at rest, sputum, stridor, wheezing, other Gastrointestinal/Abdominal: Denies: no symptoms, abdomen distended, abdominal pain, black stools, tarry stools, blood in stool, constipated, diarrhea, difficulty swallowing, nausea, poor appetite, poor fluid intake, rectal bleeding , vomiting, other Endocrine: Denies: no symptoms, excessive sweating, flushing, intolerance to cold, intolerance to heat, increased hunger, increased thirst, increased urine, unexplained weight gain, unexplained weight loss, other Allergies: Coded Allergies: No Known Allergies (Verified , 09/12/10) All Systems: reviewed and negative except above Subjective 11/27: no events to report, no f/c 11/28: seen by bedside, plt 65, plan for EGD and bone marrow biopsy tomorrow 11/29: BM biopsy today, no acute distress. 11/30: Had BM biopsy yesterday and now in reverse isolation. hgb 7.5, will transfuse as needed. 12/01: seen by bedside, plt remains low, awaiting bone marrow biopsy results. 12/02: No acute distress, no chest pain, no shortness of breath, wbc 2.7, hgb 7.3 , plt 50, will transfuse as needed. S/P BM biopsy 11/29/18, Results pending 12/04: bone marrow biopsy completed, and show myeloblasts, c/w mds/leukemia, requires close surveillance 12/05: hgb 6.9, Had blood transfusion today, plt up trending, no events 12/06: Seen by bedside, overall improved, still has complaint of chest pain, plt trending up 12/07: Given 1 unit prbc, continues to c/o chest pain, seen by cards 12/08: seen by bedside, complains of pain, plt 106, no events 12/09: awake, comfortable, plt trending down at 69, no events 12/11: awake, comfortable, on NC, plt remains low at 70. 12/12: awake, comfortable, plt 65, no events 12/13: seen by bedside, awake , comfortable, pending labs. 12/14: awake, comfortable, hgb 7.9, monitor, will transfuse as needed, plt trending down at 44, 12/15: seen by bedside, awake, comfortable, hgb 7, will transfuse as needed, plt 82. 12/16: awake comfortable, no events, hgb trending up 12/18: seen by bedside, alert, oriented, no acute distress 12/19: no events noted, no fevers or chills, cbc has been reviewed, had blasts on smear this wknd 12/20: seen by bedside, awake, comfortable, hgb 7.4, will transfuse as needed. 12/21: No overnight events reported, comfortable, hgb 8.1 12/22: no events to report, remains nausous, the platelet count has improved on its own 12/23: awaiting placement to snf at this time, following with cards, pulm 12/24: on 2l nc, received morphine today by rn, complaining of pain 12/25: no events today, no f/c, labs reviewed 12/26: no events report, will get one unit prbc today, has been ordered 12/27: hgb stable/improved but is after transfusion, no events otherwise no fevers 12/28: no events, feeling overall better 12/29: this am comfortable and sleeping, no events, cbc reviewed, no issues noted 12/30: no events to report, no night sweats, anemia panel reviewed 01/02: awake, alert, bed in lowest position 01/03: dc to [facility] once bed opens up, no events o/n 01/04: comfortable in bed, counts are lower, monitor for reverse isolation as needed 01/05: labs pending, no issues, besides intermittent cp, seen by cards, morphine given by rn 01/06: labs have been reviewed and no f/c noted, eating Objective Last 24 Hour Vital Signs Date Time Temp Pulse Resp B/P (MAP) Pulse Ox O2 Delivery O2 Flow Rate FiO2 01/06/19 14:51 97.9 01/06/19 12:00 97.9 80 18 127/80 (96) 96 01/06/19 09:00 Room Air 01/06/19 08:13 69 120/54 01/06/19 08:00 99.0 63 18 120/54 (76) 100 01/06/19 04:00 98.5 65 18 120/59 (79) 100 01/06/19 00:00 98.0 64 18 108/47 (67) 100 01/05/19 22:03 66 131/57 01/05/19 21:00 Room Air 01/05/19 20:00 97.9 66 18 131/57 (81) 100 Intake and Output 01/05/19 01/06/19 19:00 07:00 Intake Total 500 ml Output Total 400 ml Balance 500 ml -400 ml Intake Oral 500 ml Output Urine Total 400 ml # Voids 2 1 Laboratory Tests 01/06/19 05:12: White Blood Count 4.3L, Red Blood Count 3.04L, Hemoglobin 7.4L, Hematocrit 23.7L , Mean Corpuscular Volume 78L, Mean Corpuscular Hemoglobin 24.4L, Mean Corpuscular Hemoglobin Concent 31.4L, Red Cell Distribution Width 22.9H, Platelet Count 93L, Mean Platelet Volume 13.8H, Neutrophils (%) (Auto) , Lymphocytes (%) (Auto) , Monocytes (%) (Auto) , Eosinophils (%) (Auto) , Basophils (%) (Auto) , Differential Total Cells Counted 100, Neutrophils % ( Manual) 18L, Lymphocytes % (Manual) 53H, Monocytes % (Manual) 20H, Eosinophils % (Manual) 7H, Basophils % (Manual) 1, Band Neutrophils 1, Nucleated Red Blood Cells 1, Platelet Estimate DecreasedL, Platelet Morphology Normal, Hypochromasia 3+, Anisocytosis 3+, Microcytosis 1+ Height (Feet): 5 Height (Inches): 5.00 Weight (Pounds): 143 Objective General: well appearing, nad, alert Head: normocephalic, atraumatic Eyes: b/l eye PERRL, bilateral eye EOMI ENT: hearing grossly normal, normal pharynx Neck: full range of motion, supple, no meningismus Respiratory: chest non-tender, lungs clear, normal BSs, NC++ CV: regular rate, rhythm, no murmur GI: normal bowel sounds, non tender, no mass MSK: back normal, normal range of motion Psychiatric: mood/affect normal Skin: warm/dry Jose Alberto España MD Jan 06, 2019 18:17
[2019-01-06] MEDS: Atorvastatin 20mg tab ORAL SCH (20:34)
[2019-01-07] VITALS: BP 104/72
[2019-01-07 04:00] VITALS: BP 113/51
[2019-01-07 06:56] LABS: HEMATOCRIT 21.5 % (42.0-52.0); MEAN CORPUSCULAR VOLUME 76 FL (80-99); PLATELET COUNT 49 K/UL (150-450); RED BLOOD COUNT 2.82 M/UL (4.70-6.10); RED CELL DISTRIBUTION WIDTH 23.3 % (11.6-14.8); WHITE BLOOD COUNT 3.8 K/UL (4.8-10.8)
[2019-01-07 07:59] VITALS: BP 122/52
[2019-01-07] MEDS: Carvedilol 12.5mg tab ORAL SCH ×2 (08:06→20:30)
[2019-01-07] MEDS: Morphine Sulfate 2mg/ml Inj(IV/IM USE ONLY) IM PRN ×4 (08:07→21:36)
[2019-01-07 12:00] VITALS: BP 120/57
--- NOTE | 2019-01-07 12:12 | Pulmonology Progress Note ---
Assessment/Plan Problems: (1) Myeloblastic leukemia (2) Severe thrombocytopenia (3) ACS (acute coronary syndrome) (4) Cardiomyopathy (5) HTN (hypertension) (6) Pacemaker (7) Hypothyroidism (8) CAD (coronary artery disease) Assessment/Plan no new complains doing better, on fentNAYL PACH, pain better controlled dc all oral analgesics and try Fentanyl Patch doing better early leukemia check electrolytes no malignancy in bone marrow symptomatic treatment pain better controlled waiting for Medical application dc planning Subjective ROS Limited/Unobtainable: No Constitutional: Reports: no symptoms HEENT: Repors: no symptoms Respiratory: Reports: no symptoms Allergies: Coded Allergies: No Known Allergies (Verified , 09/12/10) Objective Last 24 Hour Vital Signs Date Time Temp Pulse Resp B/P (MAP) Pulse Ox O2 Delivery O2 Flow Rate FiO2 01/07/19 09:00 Room Air 01/07/19 08:37 98.8 01/07/19 08:06 71 122/52 01/07/19 07:59 98.8 71 18 122/52 (75) 99 01/07/19 04:00 98.0 66 17 113/51 (71) 97 01/07/19 00:00 99.3 71 18 104/72 (83) 98 01/06/19 20:45 Room Air 01/06/19 20:35 84 129/77 01/06/19 20:00 97.7 78 19 122/73 (89) 98 01/06/19 18:41 99.7 98 19 138/85 (102) 96 01/06/19 16:00 99.7 98 19 138/85 (102) 96 Intake and Output 01/06/19 01/07/19 18:59 06:59 Intake Total 480 ml Output Total 775 ml Balance -775 ml 480 ml Intake Oral 480 ml Output Urine Total 775 ml # Voids 4 3 Objective General Appearance: cachetic Lines, tubes and drains: peripheral HEENT: normocephalic, atraumatic Neck: non-tender, normal alignment Respiratory/Chest: chest wall non-tender, lungs clear Breasts: no masses Cardiovascular/Chest: normal peripheral pulses, normal rate Abdomen: normal bowel sounds, non tender Genitourinary/Rectal: normal genital exam Extremities: normal range of motion Skin Exam: normal pigmentation 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 Laboratory Tests 01/07/19 06:10: White Blood Count 3.8L, Red Blood Count 2.82L, Hemoglobin 7.0L, Hematocrit 21.5L , Mean Corpuscular Volume 76L, Mean Corpuscular Hemoglobin 24.9L, Mean Corpuscular Hemoglobin Concent 32.6, Red Cell Distribution Width 23.3H, Platelet Count 49L, Mean Platelet Volume 6.7, Neutrophils (%) (Auto) , Lymphocytes (%) (Auto) , Monocytes (%) (Auto) , Eosinophils (%) (Auto) , Basophils (%) (Auto) , Differential Total Cells Counted 100, Neutrophils % ( Manual) 12L, Lymphocytes % (Manual) 65H, Monocytes % (Manual) 19H, Eosinophils % (Manual) 2, Basophils % (Manual) 2, Band Neutrophils 0, Reactive Lymphocytes Occasional, Platelet Estimate DecreasedL, Platelet Morphology , Giant Platelets Occasional, Hypochromasia 1+, Anisocytosis 3+, Microcytosis 1+ Current Medications Medications (Trade) Dose Ordered Sig/Scout Route PRN Reason Start Time Stop Time Status Last Admin Dose Admin Atorvastatin Calcium (Lipitor) 40 mg QHS ORAL 12/19/18 21:00 01/18/19 20:59 01/06/19 20:34 Carvedilol (Coreg) 12.5 mg EVERY 12 HOURS ORAL 12/19/18 09:00 01/18/19 08:59 01/07/19 08:06 Docusate Sodium (Colace) 100 mg Q12H PRN ORAL Constipation 12/18/18 21:45 01/17/19 21:29 12/29/18 07:58 Fentanyl (Duragesic) 1 patch Q72H TDERMAL 01/01/19 18:00 01/08/19 17:59 01/04/19 18:45 Furosemide (Lasix) 20 mg DAILY ORAL 12/19/18 17:45 01/18/19 17:44 01/07/19 08:06 Miscellaneous Medication (fentaNYL Destruction) 1 ea Q72H MISC 01/01/19 17:59 01/31/19 17:58 01/01/19 17:28 Morphine Sulfate (Morphine Sulfate) 2 mg Q4H PRN IM For Pain 01/05/19 15:15 01/12/19 15:14 01/07/19 08:07 Naloxone HCl (Narcan) 0.1 mg PRN IV Sedation scale 3 or 4 12/08/18 15:15 01/07/19 15:14 Nitroglycerin (Ntg) 0.4 mg Q5M PRN SL Prn Chest Pain 12/25/18 16:55 01/24/19 16:54 12/30/18 15:51 Polyethylene Glycol (Miralax) 17 gm DAILYPRN PRN ORAL Constipation 12/28/18 19:00 01/27/19 18:59 12/29/18 07:58 Chepe Luong MD Jan 07, 2019 12:12
--- NOTE | 2019-01-07 15:46 | Cardiac Electrophysiology PN ---
Assessment/Plan Assessment/Plan 1. CP and Hx of CABG. Likely due to severe anemia. Ruled out [place]. Hold off on stress test in view of acute leukemia On Lipitor and Coreg. Off Aspirin and Plavix for thrombocytopenia 2. Cardiomyopathy. EF now 55%. On Coreg 12.5 mg bid and Lasix 20 daily 3[address] [facility] atriobiventricular defibrillator. Interrogated and showed Nl Fx 4. Severe anemia, S/P multiple PRBC and platelet transfusions . 5. Pancytopenia. Off Aspirin and PLavix S/P platelet and PRBC transfusion. BM biopsy 11/29/[address] Stock Getting PRBC again today 6. Placement DW RN Subjective Subjective Feeling weak, getting PRBC Objective Last 24 Hour Vital Signs Date Time Temp Pulse Resp B/P (MAP) Pulse Ox O2 Delivery O2 Flow Rate FiO2 01/07/19 12:57 98.8 01/07/19 12:00 98.1 63 17 120/57 (78) 100 01/07/19 09:00 Room Air 01/07/19 08:06 71 122/52 01/07/19 07:59 98.8 71 18 122/52 (75) 99 01/07/19 04:00 98.0 66 17 113/51 (71) 97 01/07/19 00:00 99.3 71 18 104/72 (83) 98 01/06/19 20:45 Room Air 01/06/19 20:35 84 129/77 01/06/19 20:00 97.7 78 19 122/73 (89) 98 01/06/19 18:41 99.7 98 19 138/85 (102) 96 01/06/19 16:00 99.7 98 138/85 (102) 96 Intake and Output 01/06/19 01/07/19 18:59 06:59 Intake Total 480 ml Output Total 775 ml Balance -775 ml 480 ml Intake Oral 480 ml Output Urine Total 775 ml # Voids 4 3 Laboratory Tests Test 01/07/19 06:10 White Blood Count 3.8 K/UL (4.8-10.8) L Red Blood Count 2.82 M/UL (4.70-6.10) L Hemoglobin 7.0 G/DL (14.2-18.0) L Hematocrit 21.5 % (42.0-52.0) L Mean Corpuscular Volume 76 FL (80-99) L Mean Corpuscular Hemoglobin 24.9 PG (27.0-31.0) L Mean Corpuscular Hemoglobin Concent 32.6 G/DL (32.0-36.0) Red Cell Distribution Width 23.3 % (11.6-14.8) H Platelet Count 49 K/UL (150-450) L Mean Platelet Volume 6.7 FL (6.5-10.1) Neutrophils (%) (Auto) % (45.0-75.0) Lymphocytes (%) (Auto) % (20.0-45.0) Monocytes (%) (Auto) % (1.0-10.0) Eosinophils (%) (Auto) % (0.0-3.0) Basophils (%) (Auto) % (0.0-2.0) Differential Total Cells Counted 100 Neutrophils % (Manual) 12 % (45-75) L Lymphocytes % (Manual) 65 % (20-45) H Monocytes % (Manual) 19 % (1-10) H Eosinophils % (Manual) 2 % (0-3) Basophils % (Manual) 2 % (0-2) Band Neutrophils 0 % (0-8) Reactive Lymphocytes Occasional Platelet Estimate Decreased L Platelet Morphology Giant Platelets Occasional Hypochromasia 1+ Anisocytosis 3+ Microcytosis 1+ Objective HEAD AND NECK: No JVD. LUNGS: Coarse rhonchi. CARDIOVASCULAR: Regular S1 and S2 with no gallop or murmur. Sternotomy intact. ICD in left subclavian. ABDOMEN: Soft. EXTREMITIES: 1+ pitting edema. Satinder Gee MD Jan 07, 2019 15:45
[2019-01-07 16:07] VITALS: BP 122/64
--- NOTE | 2019-01-07 17:53 | Internal Med Progress Note ---
Subjective Date of Service: Jan 07, 2019 Physician Name Nikhil West Attending Physician Abdias Hunter MD Current Medications Medications (Trade) Dose Ordered Sig/Scout Route PRN Reason Start Time Stop Time Status Last Admin Dose Admin Atorvastatin Calcium (Lipitor) 40 mg QHS ORAL 12/19/18 21:00 01/18/19 20:59 01/06/19 20:34 Carvedilol (Coreg) 12.5 mg EVERY 12 HOURS ORAL 12/19/18 09:00 01/18/19 08:59 01/07/19 08:06 Docusate Sodium (Colace) 100 mg Q12H PRN ORAL Constipation 12/18/18 21:45 01/17/19 21:29 12/29/18 07:58 Fentanyl (Duragesic) 1 patch Q72H TDERMAL 01/01/19 18:00 01/08/19 17:59 01/04/19 18:45 Furosemide (Lasix) 20 mg DAILY ORAL 12/19/18 17:45 01/18/19 17:44 01/07/19 08:06 Miscellaneous Medication (fentaNYL Destruction) 1 ea Q72H MISC 01/01/19 17:59 01/31/19 17:58 01/01/19 17:28 Morphine Sulfate (Morphine Sulfate) 2 mg Q4H PRN IM For Pain 01/05/19 15:15 01/12/19 15:14 01/07/19 17:29 Nitroglycerin (Ntg) 0.4 mg Q5M PRN SL Prn Chest Pain 12/25/18 16:55 01/24/19 16:54 12/30/18 15:51 Polyethylene Glycol (Miralax) 17 gm DAILYPRN PRN ORAL Constipation 12/28/18 19:00 01/27/19 18:59 12/29/18 07:58 Allergies: Coded Allergies: No Known Allergies (Verified , 09/12/10) ROS Limited/Unobtainable: No Constitutional: Reports: no symptoms HEENT: Reports: no symptoms Cardiovascular: Reports: no symptoms Respiratory: Reports: no symptoms Gastrointestinal/Abdominal: Reports: no symptoms Genitourinary: Reports: no symptoms Neurologic/Psychiatric: Reports: no symptoms Subjective 78 YO M admitted with chest pain. Now pancytopenia and UTI. Cover for Int Med- Dr Hunter. Objective Last Vital Signs Date Time Temp Pulse Resp B/P (MAP) Pulse Ox O2 Delivery O2 Flow Rate FiO2 01/07/19 16:07 98.5 63 20 122/64 (83) 100 01/07/19 09:00 Room Air 12/29/18 15:43 2.0 28 Laboratory Tests Test 01/07/19 06:10 White Blood Count 3.8 K/UL (4.8-10.8) L Red Blood Count 2.82 M/UL (4.70-6.10) L Hemoglobin 7.0 G/DL (14.2-18.0) L Hematocrit 21.5 % (42.0-52.0) L Mean Corpuscular Volume 76 FL (80-99) L Mean Corpuscular Hemoglobin 24.9 PG (27.0-31.0) L Mean Corpuscular Hemoglobin Concent 32.6 G/DL (32.0-36.0) Red Cell Distribution Width 23.3 % (11.6-14.8) H Platelet Count 49 K/UL (150-450) L Mean Platelet Volume 6.7 FL (6.5-10.1) Neutrophils (%) (Auto) % (45.0-75.0) Lymphocytes (%) (Auto) % (20.0-45.0) Monocytes (%) (Auto) % (1.0-10.0) Eosinophils (%) (Auto) % (0.0-3.0) Basophils (%) (Auto) % (0.0-2.0) Differential Total Cells Counted 100 Neutrophils % (Manual) 12 % (45-75) L Lymphocytes % (Manual) 65 % (20-45) H Monocytes % (Manual) 19 % (1-10) H Eosinophils % (Manual) 2 % (0-3) Basophils % (Manual) 2 % (0-2) Band Neutrophils 0 % (0-8) Reactive Lymphocytes Occasional Platelet Estimate Decreased L Platelet Morphology Giant Platelets Occasional Hypochromasia 1+ Anisocytosis 3+ Microcytosis 1+ Intake and Output 01/06/19 01/07/19 19:00 07:00 Intake Total 480 ml Output Total 775 ml Balance -775 ml 480 ml Intake Oral 480 ml Output Urine Total 775 ml # Voids 4 3 Objective PHYSICAL EXAMINATION: GENERAL: The patient awake, responsive, no acute distress. HEAD AND NECK: Pupils are equal and reactive to light. Extraocular movements are intact. Neck was supple. No JVD LUNGS: Good air entry. No wheeze or rales. HEART: S1, S2. Distant heart sounds. No murmur or gallops. Pacemaker in left-sided chest wall. ABDOMEN: Soft, nondistended, nontender. EXTREMITIES: No cyanosis, clubbing, edema. Varicose veins, bilateral lower extremities. NEUROLOGIC: Cranial nerves II through XII grossly intact. Motor is 5/5 in all extremities. Gait is intact. RECTAL: Refused and deferred. GENITOURINARY: Refused and deferred. PSYCHIATRIC: Mood and affect is depressed. Assessment/Plan Assessment/Plan ASSESSMENT: 1. Chest pain, possible acute coronary syndrome. 2. Hypertension. 3. Dyslipidemia. 4. Congestive heart failure. 5. Coronary artery disease. 6. Sick sinus syndrome, status pacemaker. 7. UTI. 8. Pancytopenia; S/P transfusion 5 units PRBC total-Severe anemia, Thrombocytopenia and leukopenia-?leukemia? see onc note. PLAN: Admit the patient to telemetry. Discussed case with Dr. Gee from Cardiology Electrophysiology. Await cardiac nuclear stress test-outpatient Dr. Luong, Pulmonary Critical Care. Urine cult=E. Coli. S/P Rocephin. DVT prophylaxis, heparin subcutaneous. Code status, Full Code. The patient is expected to be in the hospital greater than 2 days Discharge paln: [facility] S/P transfusion 2 units PRBC on 11/19/18 See Hematology consult-?acute myelocytic leukemia? Discharge to [facility]-see social work note Nikhil West MD Jan 07, 2019 17:53
[2019-01-07] MEDS: fentaNYL Destruction MISC SCH (17:59)
[2019-01-07 20:00] VITALS: BP 120/56
[2019-01-07] MEDS: Atorvastatin 20mg tab ORAL SCH (20:29)
[2019-01-08] VITALS: BP 101/53
[2019-01-08 04:00] VITALS: BP 121/57
[2019-01-08 07:10] LABS: HEMATOCRIT 27.1 % (42.0-52.0); HEMOGLOBIN 8.9 G/DL (14.2-18.0); MEAN CORPUSCULAR VOLUME 77 FL (80-99); PLATELET COUNT 72 K/UL (150-450); RED BLOOD COUNT 3.53 M/UL (4.70-6.10); WHITE BLOOD COUNT 4.6 K/UL (4.8-10.8)
[2019-01-08 08:00] VITALS: BP 109/56
[2019-01-08] MEDS: Carvedilol 12.5mg tab ORAL SCH ×2 (08:30→21:00)
[2019-01-08 12:10] VITALS: BP 142/57
[2019-01-08] MEDS: Morphine Sulfate 2mg/ml Inj(IV/IM USE ONLY) IM PRN ×3 (12:18→21:52)
--- NOTE | 2019-01-08 13:02 | Pulmonology Progress Note ---
Assessment/Plan Problems: (1) Myeloblastic leukemia (2) Severe thrombocytopenia (3) ACS (acute coronary syndrome) (4) Cardiomyopathy (5) HTN (hypertension) (6) Pacemaker (7) Hypothyroidism (8) CAD (coronary artery disease) Assessment/Plan no new complains doing better, on fentNAYL PACH, pain better controlled dc all oral analgesics and try Fentanyl Patch doing better early leukemia check electrolytes no malignancy in bone marrow symptomatic treatment pain better controlled waiting for Medical application dc planning Subjective ROS Limited/Unobtainable: No Constitutional: Reports: no symptoms HEENT: Repors: no symptoms Respiratory: Reports: no symptoms Allergies: Coded Allergies: No Known Allergies (Verified , 09/12/10) Objective Last 24 Hour Vital Signs Date Time Temp Pulse Resp B/P (MAP) Pulse Ox O2 Delivery O2 Flow Rate FiO2 01/08/19 12:10 98.1 69 17 142/57 (85) 100 01/08/19 09:00 Room Air 01/08/19 08:30 62 109/56 01/08/19 08:00 97.9 62 20 109/56 (73) 97 01/08/19 04:00 97.9 60 20 121/57 (78) 99 01/08/19 00:00 98.2 61 20 101/53 (69) 98 01/07/19 22:06 97.5 01/07/19 21:57 Room Air 01/07/19 20:30 63 120/56 01/07/19 20:00 97.5 63 18 120/56 (77) 100 01/07/19 18:56 98.5 01/07/19 16:07 98.5 63 20 122/64 (83) 100 Intake and Output 01/07/19 01/08/19 18:59 06:59 Intake Total 480 ml 120 ml Output Total 800 ml 1000 ml Balance -320 ml -880 ml Intake Oral 480 ml 120 ml Output Urine Total 800 ml 1000 ml Objective General Appearance: cachetic Lines, tubes and drains: peripheral HEENT: normocephalic, atraumatic Neck: non-tender, normal alignment Respiratory/Chest: chest wall non-tender, lungs clear Breasts: no masses Cardiovascular/Chest: normal peripheral pulses, normal rate Abdomen: normal bowel sounds, non tender Genitourinary/Rectal: normal genital exam Extremities: normal range of motion Skin Exam: normal pigmentation Neurologic: track superintendent II-XII grossly normal Laboratory Tests 01/08/19 06:00: White Blood Count 4.6L, Red Blood Count 3.53L, Hemoglobin 8.9L, Hematocrit 27.1L , Mean Corpuscular Volume 77L, Mean Corpuscular Hemoglobin 25.2L, Mean Corpuscular Hemoglobin Concent 32.8, Red Cell Distribution Width 22.0H, Platelet Count 72L, Mean Platelet Volume 8.3, Neutrophils (%) (Auto) , Lymphocytes (%) (Auto) , Monocytes (%) (Auto) , Eosinophils (%) (Auto) , Basophils (%) (Auto) , Differential Total Cells Counted 100, Neutrophils % ( Manual) 13L, Lymphocytes % (Manual) 63H, Monocytes % (Manual) 20H, Eosinophils % (Manual) 3, Basophils % (Manual) 0, Band Neutrophils 1, Reactive Lymphocytes 1 +, Platelet Estimate DecreasedL, Platelet Morphology , Giant Platelets 1+, Hypochromasia 1+, Anisocytosis 3+, Microcytosis 1+, Acanthocytes 2+, Schistocytes 1+ Current Medications Medications (Trade) Dose Ordered Sig/Scout Route PRN Reason Start Time Stop Time Status Last Admin Dose Admin Atorvastatin Calcium (Lipitor) 40 mg QHS ORAL 12/19/18 21:00 01/18/19 20:59 01/07/19 20:29 Carvedilol (Coreg) 12.5 mg EVERY 12 HOURS ORAL 12/19/18 09:00 01/18/19 08:59 01/07/19 20:30 Docusate Sodium (Colace) 100 mg Q12H PRN ORAL Constipation 12/18/18 21:45 01/17/19 21:29 12/29/18 07:58 Fentanyl (Duragesic) 1 patch Q72H TDERMAL 01/01/19 18:00 01/08/19 17:59 01/07/19 18:26 Furosemide (Lasix) 20 mg DAILY ORAL 12/19/18 17:45 01/18/19 17:44 01/07/19 08:06 Miscellaneous Medication (fentaNYL Destruction) 1 ea Q72H MISC 01/01/19 17:59 01/31/19 17:58 01/01/19 17:28 Morphine Sulfate (Morphine Sulfate) 2 mg Q4H PRN IM For Pain 01/05/19 15:15 01/12/19 15:14 01/08/19 12:18 Nitroglycerin (Ntg) 0.4 mg Q5M PRN SL Prn Chest Pain 12/25/18 16:55 01/24/19 16:54 12/30/18 15:51 Polyethylene Glycol (Miralax) 17 gm DAILYPRN PRN ORAL Constipation 12/28/18 19:00 01/27/19 18:59 12/29/18 07:58 Chepe Luong MD Jan 08, 2019 13:02
--- NOTE | 2019-01-08 16:14 | Internal Med Progress Note ---
Subjective Date of Service: Jan 08, 2019 Physician Name Nikhil West Attending Physician Abdias Hunter MD Current Medications Medications (Trade) Dose Ordered Sig/Scout Route PRN Reason Start Time Stop Time Status Last Admin Dose Admin Atorvastatin Calcium (Lipitor) 40 mg QHS ORAL 12/19/18 21:00 01/18/19 20:59 01/07/19 20:29 Carvedilol (Coreg) 12.5 mg EVERY 12 HOURS ORAL 12/19/18 09:00 01/18/19 08:59 01/07/19 20:30 Docusate Sodium (Colace) 100 mg Q12H PRN ORAL Constipation 12/18/18 21:45 01/17/19 21:29 12/29/18 07:58 Fentanyl (Duragesic) 1 patch Q72H TDERMAL 01/01/19 18:00 01/08/19 17:59 01/07/19 18:26 Furosemide (Lasix) 20 mg DAILY ORAL 12/19/18 17:45 01/18/19 17:44 01/07/19 08:06 Miscellaneous Medication (fentaNYL Destruction) 1 ea Q72H MISC 01/01/19 17:59 01/31/19 17:58 01/01/19 17:28 Morphine Sulfate (Morphine Sulfate) 2 mg Q4H PRN IM For Pain 01/05/19 15:15 01/12/19 15:14 01/08/19 12:18 Nitroglycerin (Ntg) 0.4 mg Q5M PRN SL Prn Chest Pain 12/25/18 16:55 01/24/19 16:54 12/30/18 15:51 Polyethylene Glycol (Miralax) 17 gm DAILYPRN PRN ORAL Constipation 12/28/18 19:00 01/27/19 18:59 12/29/18 07:58 Allergies: Coded Allergies: No Known Allergies (Verified , 09/12/10) ROS Limited/Unobtainable: Yes Subjective 78 YO M admitted with chest pain. Now pancytopenia and UTI. Cover for Int Med- Dr Hunter. Objective Last Vital Signs Date Time Temp Pulse Resp B/P (MAP) Pulse Ox O2 Delivery O2 Flow Rate FiO2 01/08/19 12:10 98.1 69 17 142/57 (85) 100 01/08/19 09:00 Room Air Laboratory Tests Test 01/08/19 06:00 White Blood Count 4.6 K/UL (4.8-10.8) L Red Blood Count 3.53 M/UL (4.70-6.10) L Hemoglobin 8.9 G/DL (14.2-18.0) L Hematocrit 27.1 % (42.0-52.0) L Mean Corpuscular Volume 77 FL (80-99) L Mean Corpuscular Hemoglobin 25.2 PG (27.0-31.0) L Mean Corpuscular Hemoglobin Concent 32.8 G/DL (32.0-36.0) Red Cell Distribution Width 22.0 % (11.6-14.8) H Platelet Count 72 K/UL (150-450) L Mean Platelet Volume 8.3 FL (6.5-10.1) Neutrophils (%) (Auto) % (45.0-75.0) Lymphocytes (%) (Auto) % (20.0-45.0) Monocytes (%) (Auto) % (1.0-10.0) Eosinophils (%) (Auto) % (0.0-3.0) Basophils (%) (Auto) % (0.0-2.0) Differential Total Cells Counted 100 Neutrophils % (Manual) 13 % (45-75) L Lymphocytes % (Manual) 63 % (20-45) H Monocytes % (Manual) 20 % (1-10) H Eosinophils % (Manual) 3 % (0-3) Basophils % (Manual) 0 % (0-2) Band Neutrophils 1 % (0-8) Reactive Lymphocytes 1+ Platelet Estimate Decreased L Platelet Morphology Giant Platelets 1+ Hypochromasia 1+ Anisocytosis 3+ Microcytosis 1+ Acanthocytes 2+ Schistocytes 1+ Intake and Output 01/07/19 01/08/19 18:59 06:59 Intake Total 480 ml 120 ml Output Total 800 ml 1000 ml Balance -320 ml -880 ml Intake Oral 480 ml 120 ml Output Urine Total 800 ml 1000 ml Objective PHYSICAL EXAMINATION: GENERAL: The patient awake, responsive, no acute distress. HEAD AND NECK: Pupils are equal and reactive to light. Extraocular movements are intact. Neck was supple. No JVD LUNGS: Good air entry. No wheeze or rales. HEART: S1, S2. Distant heart sounds. No murmur or gallops. Pacemaker in left-sided chest wall. ABDOMEN: Soft, nondistended, nontender. EXTREMITIES: No cyanosis, clubbing, edema. Varicose veins, bilateral lower extremities. NEUROLOGIC: Cranial nerves II through XII grossly intact. Motor is 5/5 in all extremities. Gait is intact. RECTAL: Refused and deferred. GENITOURINARY: Refused and deferred. PSYCHIATRIC: Mood and affect is depressed. Assessment/Plan Assessment/Plan ASSESSMENT: 1. Chest pain, possible acute coronary syndrome. 2. Hypertension. 3. Dyslipidemia. 4. Congestive heart failure. 5. Coronary artery disease. 6. Sick sinus syndrome, status pacemaker. 7. UTI. 8. Pancytopenia; S/P transfusion 5 units PRBC total-Severe anemia, Thrombocytopenia and leukopenia-?leukemia? see onc note. PLAN: Admit the patient to telemetry. Discussed case with Dr. Gee from Cardiology Electrophysiology. Await cardiac nuclear stress test-outpatient Dr. Luong, Pulmonary Critical Care. Urine cult=E. Coli. S/P Rocephin. DVT prophylaxis, heparin subcutaneous. Code status, Full Code. The patient is expected to be in the hospital greater than 2 days Discharge paln: [facility] S/P transfusion 2 units PRBC on 11/19/18 See Hematology consult-?acute myelocytic leukemia? Discharge to [facility]-see social work note Nikhil West MD Jan 08, 2019 16:14
[2019-01-08 16:21] VITALS: BP 148/62
--- NOTE | 2019-01-08 16:53 | Cardiac Electrophysiology PN ---
Assessment/Plan Assessment/Plan 1. CP and Hx of CABG. Likely due to severe anemia. Ruled out CA. 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 Off Aspirin and Plavix for thrombocytopenia 2. Cardiomyopathy. EF now 55%. On Coreg 12.5 mg bid and Lasix 20 daily 3[address] Status post [facility] atriobiventricular defibrillator. Interrogated and showed Nl Fx 4. Severe anemia, S/P multiple PRBC and platelet transfusions . 5. Pancytopenia. Off Aspirin and PLavix S/P platelet and PRBC transfusion. BM biopsy 11/29/[address] Stock 6. Placement DW RN Subjective Subjective Feeling better, S/P PRBC Objective Last 24 Hour Vital Signs Date Time Temp Pulse Resp B/P (MAP) Pulse Ox O2 Delivery O2 Flow Rate FiO2 01/08/19 16:21 98.9 68 20 148/62 (90) 96 01/08/19 12:10 98.1 69 17 142/57 (85) 100 01/08/19 09:00 Room Air 01/08/19 08:30 62 109/56 01/08/19 08:00 97.9 62 20 109/56 (73) 97 01/08/19 04:00 97.9 60 20 121/57 (78) 99 01/08/19 00:00 98.2 61 20 101/53 (69) 98 01/07/19 22:06 97.5 01/07/19 21:57 Room Air 01/07/19 20:30 63 120/56 01/07/19 20:00 97.5 63 18 120/56 (77) 100 01/07/19 18:56 98.5 Intake and Output 01/07/19 01/08/19 18:59 06:59 Intake Total 480 ml 120 ml Output Total 800 ml 1000 ml Balance -320 ml -880 ml Intake Oral 480 ml 120 ml Output Urine Total 800 ml 1000 ml Laboratory Tests Test 01/08/19 06:00 White Blood Count 4.6 K/UL (4.8-10.8) L Red Blood Count 3.53 M/UL (4.70-6.10) L Hemoglobin 8.9 G/DL (14.2-18.0) L Hematocrit 27.1 % (42.0-52.0) L Mean Corpuscular Volume 77 FL (80-99) L Mean Corpuscular Hemoglobin 25.2 PG (27.0-31.0) L Mean Corpuscular Hemoglobin Concent 32.8 G/DL (32.0-36.0) Red Cell Distribution Width 22.0 % (11.6-14.8) H Platelet Count 72 K/UL (150-450) L Mean Platelet Volume 8.3 FL (6.5-10.1) Neutrophils (%) (Auto) % (45.0-75.0) Lymphocytes (%) (Auto) % (20.0-45.0) Monocytes (%) (Auto) % (1.0-10.0) Eosinophils (%) (Auto) % (0.0-3.0) Basophils (%) (Auto) % (0.0-2.0) Differential Total Cells Counted 100 Neutrophils % (Manual) 13 % (45-75) L Lymphocytes % (Manual) 63 % (20-45) H Monocytes % (Manual) 20 % (1-10) H Eosinophils % (Manual) 3 % (0-3) Basophils % (Manual) 0 % (0-2) Band Neutrophils 1 % (0-8) Reactive Lymphocytes 1+ Platelet Estimate Decreased L Platelet Morphology Giant Platelets 1+ Hypochromasia 1+ Anisocytosis 3+ Microcytosis 1+ Acanthocytes 2+ Schistocytes 1+ Objective HEAD AND NECK: No JVD. LUNGS: Coarse rhonchi. CARDIOVASCULAR: Regular S1 and S2 with no murmur. Sternotomy intact. ICD in left subclavian. ABDOMEN: Soft. EXTREMITIES: 1+ pitting edema. Satinder Gee MD Jan 08, 2019 16:53
--- NOTE | 2019-01-08 19:43 | General Progress Note ---
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+++ --> bone marrow bipsy/aspiration report reviewed and concerning for LEUKEMIA with 8.7% myeloblasts --> Continue to monitor for improvement, trend cbc --> HIV is negative, but hep C++ --> US abd ordered to r/o cirrhosis and hsm and is negative for those --> reverse isolation if ANC is <2000 --> Give neupogen if ANC <1000 --> Transfuse if hgb <7, with 1 unit prbc --> hospice v treatment as per pcp recommendations and referral --> Hgb trend: 9-->8.7-->7.9-->7-->7.6-->7.4->8.1-->7.7-->6.5-->8.3-->7.7-->7.5- ->7.4-->8.9 # Thrombocytopenia - potential causes multifactorial, evaluate liver and viral etiologies to begin, also could be related to underlying medications patient has received. --> Hep panel and HIV negative, hep C++++ --> US abd to evaluate for cirrhosis and hsm reviewed --> Peripheral smear ordered to evaluate for blasts /schistocytes is wnl --> abx and other meds have been reviewed --> ok for ppx if plt >50k w/ either heparin or lovenox --> Transfuse if Plt < 20k and fever, or if Plt < 10k without fever --->Plt trend 70-->65-->44-->86-->122-->88-->100k-->140k-->154k-->78k-->72k # Reticulocytosis with elevated bilirubin that is indirect --> reviewed direct and indirect bilis again, trend could have liver disease --> liver US shows no significant cirrhosis --> evaluate as needed with gi team, recs apprecaited #. Chest pain, possible acute coronary syndrome. --> cards recs appreciated as well as pulm --> stress test prn # Hypertension. sbp goal <140 -- > as per cards recs # Dyslipidemia. # Chf # Coronary artery disease. # Sick sinus syndrome, status pacemaker. # Acute E. coli UTI s/p abx # Hep C+++ needs op management The timing of this note does not necessarily reflect the time of the patient was seen. Greatly appreciate consultation! Subjective Allergies: Coded Allergies: No Known Allergies (Verified , 09/12/10) Subjective 11/27: no events to report, no f/c 11/28: seen by bedside, plt 65, plan for EGD and bone marrow biopsy tomorrow 11/29: BM biopsy today, no acute distress. 11/30: Had BM biopsy yesterday and now in reverse isolation. hgb 7.5, will transfuse as needed. 12/01: seen by bedside, plt remains low, awaiting bone marrow biopsy results. 12/02: No acute distress, no chest pain, no shortness of breath, wbc 2.7, hgb 7.3 , plt 50, will transfuse as needed. S/P BM biopsy 11/29/18, Results pending 12/04: bone marrow biopsy completed, and show myeloblasts, c/w mds/leukemia, requires close surveillance 12/05: hgb 6.9, Had blood transfusion today, plt up trending, no events 12/06: Seen by bedside, overall improved, still has complaint of chest pain, plt trending up 12/07: Given 1 unit prbc, continues to c/o chest pain, seen by cards 12/08: seen by bedside, complains of pain, plt 106, no events 12/09: awake, comfortable, plt trending down at 69, no events 12/11: awake, comfortable, on NC, plt remains low at 70. 12/12: awake, comfortable, plt 65, no events 12/13: seen by bedside, awake , comfortable, pending labs. 12/14: awake, comfortable, hgb 7.9, monitor, will transfuse as needed, plt trending down at 44, 12/15: seen by bedside, awake, comfortable, hgb 7, will transfuse as needed, plt 82. 12/16: awake comfortable, no events, hgb trending up 12/18: seen by bedside, alert, oriented, no acute distress 12/19: no events noted, no fevers or chills, cbc has been reviewed, had blasts on smear this wknd 12/20: seen by bedside, awake, comfortable, hgb 7.4, will transfuse as needed. 12/21: No overnight events reported, comfortable, hgb 8.1 12/22: no events to report, remains nausous, the platelet count has improved on its own 12/23: awaiting placement to snf at this time, following with cards, pulm 12/24: on 2l nc, received morphine today by rn, complaining of pain 12/25: no events today, no f/c, labs reviewed 12/26: no events report, will get one unit prbc today, has been ordered 12/27: hgb stable/improved but is after transfusion, no events otherwise no fevers 12/28: no events, feeling overall better 12/29: this am comfortable and sleeping, no events, cbc reviewed, no issues noted 12/30: no events to report, no night sweats, anemia panel reviewed 01/02: awake, alert, bed in lowest position 01/03: dc to [facility] once bed opens up, no events o/n 01/04: comfortable in bed, counts are lower, monitor for reverse isolation as needed 01/05: labs pending, no issues, besides intermittent cp, seen by cards, morphine given by rn 01/06: labs have been reviewed and no f/c noted, eating 01/08: no events to report, cbc has been reviewed, no bleeding Objective Last 24 Hour Vital Signs Date Time Temp Pulse Resp B/P (MAP) Pulse Ox O2 Delivery O2 Flow Rate FiO2 01/08/19 16:21 98.9 68 20 148/62 (90) 96 01/08/19 12:10 98.1 69 17 142/57 (85) 100 01/08/19 09:00 Room Air 01/08/19 08:30 62 109/56 01/08/19 08:00 97.9 62 20 109/56 (73) 97 01/08/19 04:00 97.9 60 20 121/57 (78) 99 01/08/19 00:00 98.2 61 20 101/53 (69) 98 01/07/19 22:06 97.5 01/07/19 21:57 Room Air 01/07/19 20:30 63 120/56 01/07/19 20:00 97.5 63 18 120/56 (77) 100 Intake and Output 01/07/19 01/08/19 19:00 07:00 Intake Total 480 ml 120 ml Output Total 800 ml 1000 ml Balance -320 ml -880 ml Intake Oral 480 ml 120 ml Output Urine Total 800 ml 1000 ml Laboratory Tests 01/08/19 06:00: White Blood Count 4.6L, Red Blood Count 3.53L, Hemoglobin 8.9L, Hematocrit 27.1L , Mean Corpuscular Volume 77L, Mean Corpuscular Hemoglobin 25.2L, Mean Corpuscular Hemoglobin Concent 32.8, Red Cell Distribution Width 22.0H, Platelet Count 72L, Mean Platelet Volume 8.3, Neutrophils (%) (Auto) , Lymphocytes (%) (Auto) , Monocytes (%) (Auto) , Eosinophils (%) (Auto) , Basophils (%) (Auto) , Differential Total Cells Counted 100, Neutrophils % ( Manual) 13L, Lymphocytes % (Manual) 63H, Monocytes % (Manual) 20H, Eosinophils % (Manual) 3, Basophils % (Manual) 0, Band Neutrophils 1, Reactive Lymphocytes 1 +, Platelet Estimate DecreasedL, Platelet Morphology , Giant Platelets 1+, Hypochromasia 1+, Anisocytosis 3+, Microcytosis 1+, Acanthocytes 2+, Schistocytes 1+ Height (Feet): 5 Height (Inches): 5.00 Weight (Pounds): 136 Objective General: well appearing, nad, alert Head: normocephalic, atraumatic Eyes: b/l eye PERRL, bilateral eye EOMI ENT: hearing grossly normal, normal pharynx Neck: full range of motion, supple, no meningismus Respiratory: chest non-tender, lungs clear, normal BSs, NC++ CV: regular rate, rhythm, no murmur GI: normal bowel sounds, non tender, no mass MSK: back normal, normal range of motion Psychiatric: mood/affect normal Skin: warm/dry Jose Alberto España MD Jan 08, 2019 19:43
[2019-01-08 20:00] VITALS: BP 127/62
[2019-01-08] MEDS: Atorvastatin 20mg tab ORAL SCH (21:53)
[2019-01-09] VITALS (8 sets, daily range): BP systolic 112–152; BP diastolic 51–74
[2019-01-09] MEDS: Morphine Sulfate 2mg/ml Inj(IV/IM USE ONLY) IM PRN ×5 (02:11→21:15)
[2019-01-09] MEDS: Nitroglycerin Subl 0.4mg tab SL PRN (04:00)
[2019-01-09] MEDS: Carvedilol 12.5mg tab ORAL SCH ×2 (09:34→21:14)
--- NOTE | 2019-01-09 11:48 | GI Progress Note ---
Assessment/Plan Problems: (1) History of CVA (cerebrovascular accident) ICD Codes: Z86.73 - Personal history of transient ischemic attack (TIA), and cerebral infarction without residual deficits SNOMED: 480739242 (2) Severe anemia ICD Codes: D64.9 - Anemia, unspecified SNOMED: 049756343 (3) Abdominal pain ICD Codes: R10.9 - Unspecified abdominal pain SNOMED: 27779707 (4) GERD (gastroesophageal reflux disease) ICD Codes: K21.9 - Gastro-esophageal reflux disease without esophagitis SNOMED: 263401867 Status: stable Status Narrative Discussed with Dr. Mcguire Assessment/Plan SUMMARY OF FINDINGS: 1. Gastritis. 2. A 6 cm hiatal hernia. RECOMMENDATIONS: Follow up biopsy results and treat accordingly. >> Mild chronic gastritis. Negative for H. pylori negative negative for dysplasia or malignancy. BM biopsy>> leukemia>> fu oncology monitor H&H, prn transfusions. bowel regime ppi, H2B qhs Zofran as needed fu labs Outpatient hep C treatment dc planning The patient was seen and examined at bedside and all new and available data was reviewed in the patients chart. I agree with the above findings, impression and plan. (Patient seen earlier today. Signature stamp does not reflect patient encounter time.). - Richie Mcguire MD Subjective Subjective Denies any abdominal pain Denies any constipation or diarrhea Tolerating diet Denies any nausea vomiting Objective Last 24 Hour Vital Signs Date Time Temp Pulse Resp B/P (MAP) Pulse Ox O2 Delivery O2 Flow Rate FiO2 01/09/19 09:48 Room Air 01/09/19 09:34 78 152/74 01/09/19 09:26 78 152/74 (100) 01/09/19 08:18 97.7 69 18 130/65 (86) 95 01/09/19 04:00 98.1 63 18 114/51 (72) 100 01/09/19 04:00 129/91 01/09/19 00:23 98.4 66 18 136/61 (86) 100 01/08/19 23:12 Room Air 01/08/19 22:22 99.3 01/08/19 21:00 69 115/65 01/08/19 20:00 99.3 66 18 127/62 (83) 100 01/08/19 16:21 98.9 68 20 148/62 (90) 96 01/08/19 12:10 98.1 69 17 142/57 (85) 100 Intake and Output 01/08/19 01/09/19 19:00 07:00 Intake Total 480 ml Output Total 450 ml Balance 480 ml -450 ml Intake Oral 480 ml Output Urine Total 450 ml # Voids 3 Height (Feet): 5 Height (Inches): 5.00 Weight (Pounds): 141 General Appearance: WD/WN, no apparent distress, alert Cardiovascular: normal rate Respiratory/Chest: normal breath sounds, no respiratory distress Abdominal Exam: normal bowel sounds, non tender, soft Extremities: normal range of motion, non-tender Jason Gray NP Jan 09, 2019 11:48
--- NOTE | 2019-01-09 13:06 | Pulmonology Progress Note ---
Assessment/Plan Problems: (1) Myeloblastic leukemia (2) Severe thrombocytopenia (3) ACS (acute coronary syndrome) (4) Cardiomyopathy (5) HTN (hypertension) (6) Pacemaker (7) Hypothyroidism (8) CAD (coronary artery disease) Assessment/Plan no new complains doing better, on fentNAYL PACH, pain better controlled dc all oral analgesics and try Fentanyl Patch doing better early leukemia check electrolytes no malignancy in bone marrow symptomatic treatment pain better controlled waiting for Medical application dc planning Subjective ROS Limited/Unobtainable: No Constitutional: Reports: no symptoms Respiratory: Reports: no symptoms Allergies: Coded Allergies: No Known Allergies (Verified , 09/12/10) Objective Last 24 Hour Vital Signs Date Time Temp Pulse Resp B/P (MAP) Pulse Ox O2 Delivery O2 Flow Rate FiO2 01/09/19 12:00 97.9 73 18 128/68 (88) 97 01/09/19 11:56 97.7 01/09/19 09:48 Room Air 01/09/19 09:34 78 152/74 01/09/19 09:26 78 152/74 (100) 01/09/19 08:18 97.7 69 18 130/65 (86) 95 01/09/19 04:00 98.1 63 18 114/51 (72) 100 01/09/19 04:00 129/91 01/09/19 00:23 98.4 66 18 136/61 (86) 100 01/08/19 23:12 Room Air 01/08/19 21:00 69 115/65 01/08/19 20:00 99.3 66 18 127/62 (83) 100 01/08/19 16:21 98.9 68 20 148/62 (90) 96 Intake and Output 01/08/19 01/09/19 19:00 07:00 Intake Total 480 ml Output Total 450 ml Balance 480 ml -450 ml Intake Oral 480 ml Output Urine Total 450 ml # Voids 3 Objective General Appearance: cachetic Lines, tubes and drains: peripheral HEENT: normocephalic, atraumatic Neck: non-tender, normal alignment Respiratory/Chest: chest wall non-tender, lungs clear Breasts: no masses Cardiovascular/Chest: normal peripheral pulses, normal rate Abdomen: normal bowel sounds, non tender Genitourinary/Rectal: normal genital exam Extremities: normal range of motion Skin Exam: normal pigmentation Neurologic: wrapper and preserver II-XII grossly normal Current Medications Medications (Trade) Dose Ordered Sig/Scout Route PRN Reason Start Time Stop Time Status Last Admin Dose Admin Atorvastatin Calcium (Lipitor) 40 mg QHS ORAL 12/19/18 21:00 01/18/19 20:59 01/08/19 21:53 Carvedilol (Coreg) 12.5 mg EVERY 12 HOURS ORAL 12/19/18 09:00 01/18/19 08:59 01/09/19 09:34 Docusate Sodium (Colace) 100 mg Q12H PRN ORAL Constipation 12/18/18 21:45 01/17/19 21:29 12/29/18 07:58 Fentanyl (Duragesic) 1 patch Q72H TDERMAL 01/10/19 18:00 01/17/19 17:59 Furosemide (Lasix) 20 mg DAILY ORAL 12/19/18 17:45 01/18/19 17:44 01/09/19 09:34 Miscellaneous Medication (fentaNYL Destruction) 1 ea Q72H MISC 01/01/19 17:59 01/31/19 17:58 01/01/19 17:28 Morphine Sulfate (Morphine Sulfate) 2 mg Q4H PRN IM For Pain 01/05/19 15:15 01/12/19 15:14 01/09/19 10:47 Nitroglycerin (Ntg) 0.4 mg Q5M PRN SL Prn Chest Pain 12/25/18 16:55 01/24/19 16:54 01/09/19 04:00 Polyethylene Glycol (Miralax) 17 gm DAILYPRN PRN ORAL Constipation 12/28/18 19:00 01/27/19 18:59 12/29/18 07:58 Chepe Luong MD Jan 09, 2019 13:06
--- NOTE | 2019-01-09 18:35 | General Progress Note ---
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+++ --> bone marrow bipsy/aspiration report reviewed and concerning for LEUKEMIA with 8.7% myeloblasts --> Continue to monitor for improvement, trend cbc --> HIV is negative, but hep C++ --> US abd ordered to r/o cirrhosis and hsm and is negative for those --> reverse isolation if ANC is <2000 --> Give neupogen if ANC <1000 --> Transfuse if hgb <7, with 1 unit prbc --> hospice v treatment as per pcp recommendations and referral --> Hgb trend: 9-->8.7-->7.9-->7-->7.6-->7.4->8.1-->7.7-->6.5-->8.3-->7.7-->7.5- ->7.4-->8.9 # Thrombocytopenia - potential causes multifactorial, evaluate liver and viral etiologies to begin, also could be related to underlying medications patient has received. --> Hep panel and HIV negative, hep C++++ --> US abd to evaluate for cirrhosis and hsm reviewed --> Peripheral smear ordered to evaluate for blasts /schistocytes is wnl --> abx and other meds have been reviewed --> ok for ppx if plt >50k w/ either heparin or lovenox --> Transfuse if Plt < 20k and fever, or if Plt < 10k without fever --->Plt trend 70-->65-->44-->86-->122-->88-->100k-->140k-->154k-->78k-->72k # Reticulocytosis with elevated bilirubin that is indirect --> reviewed direct and indirect bilis again, trend could have liver disease --> liver US shows no significant cirrhosis --> evaluate as needed with gi team, recs apprecaited #. Chest pain, possible acute coronary syndrome. --> cards recs appreciated as well as pulm --> stress test prn # Hypertension. sbp goal <140 -- > as per cards recs # Dyslipidemia. # Chf # Coronary artery disease. # Sick sinus syndrome, status pacemaker. # Acute E. coli UTI s/p abx # Hep C+++ needs op management The timing of this note does not necessarily reflect the time of the patient was seen. Greatly appreciate consultation! Subjective Constitutional: Denies: no symptoms, chills, diaphoresis, fever, malaise, weakness, other HEENT: Denies: no symptoms, eye pain, blurred vision, tearing, double vision, ear pain, ear discharge, nose pain, nose congestion, throat pain, throat swelling, mouth pain, mouth swelling, other Respiratory: Denies: no symptoms, cough, orthopnea, shortness of breath, SOB with excertion, SOB at rest, sputum, stridor, wheezing, other Gastrointestinal/Abdominal: Denies: no symptoms, abdomen distended, abdominal pain, black stools, tarry stools, blood in stool, constipated, diarrhea, difficulty swallowing, nausea, poor appetite, poor fluid intake, rectal bleeding , vomiting, other Genitourinary: Denies: no symptoms, burning, discharge, frequency, flank pain, hematuria, incontinence, pain, urgency, other Neurologic/Psychiatric: Denies: no symptoms, anxiety, depressed, emotional problems, headache, numbness, paresthesia, pre-existing deficit, seizure, tingling, tremors, weakness, other Endocrine: Denies: no symptoms, excessive sweating, flushing, intolerance to cold, intolerance to heat, increased hunger, increased thirst, increased urine, unexplained weight gain, unexplained weight loss, other Hematologic/Lymphatic: Denies: no symptoms, anemia, easy bleeding, easy bruising, other Allergies: Coded Allergies: No Known Allergies (Verified , 09/12/10) Subjective 11/27: no events to report, no f/c 11/28: seen by bedside, plt 65, plan for EGD and bone marrow biopsy tomorrow 11/29: BM biopsy today, no acute distress. 11/30: Had BM biopsy yesterday and now in reverse isolation. hgb 7.5, will transfuse as needed. 12/01: seen by bedside, plt remains low, awaiting bone marrow biopsy results. 12/02: No acute distress, no chest pain, no shortness of breath, wbc 2.7, hgb 7.3 , plt 50, will transfuse as needed. S/P BM biopsy 11/29/18, Results pending 12/04: bone marrow biopsy completed, and show myeloblasts, c/w mds/leukemia, requires close surveillance 12/05: hgb 6.9, Had blood transfusion today, plt up trending, no events 12/06: Seen by bedside, overall improved, still has complaint of chest pain, plt trending up 12/07: Given 1 unit prbc, continues to c/o chest pain, seen by cards 12/08: seen by bedside, complains of pain, plt 106, no events 12/09: awake, comfortable, plt trending down at 69, no events 12/11: awake, comfortable, on NC, plt remains low at 70. 12/12: awake, comfortable, plt 65, no events 12/13: seen by bedside, awake , comfortable, pending labs. 12/14: awake, comfortable, hgb 7.9, monitor, will transfuse as needed, plt trending down at 44, 12/15: seen by bedside, awake, comfortable, hgb 7, will transfuse as needed, plt 82. 12/16: awake comfortable, no events, hgb trending up 12/18: seen by bedside, alert, oriented, no acute distress 12/19: no events noted, no fevers or chills, cbc has been reviewed, had blasts on smear this wknd 12/20: seen by bedside, awake, comfortable, hgb 7.4, will transfuse as needed. 12/21: No overnight events reported, comfortable, hgb 8.1 12/22: no events to report, remains nausous, the platelet count has improved on its own 12/23: awaiting placement to snf at this time, following with cards, pulm 12/24: on 2l nc, received morphine today by rn, complaining of pain 12/25: no events today, no f/c, labs reviewed 12/26: no events report, will get one unit prbc today, has been ordered 12/27: hgb stable/improved but is after transfusion, no events otherwise no fevers 12/28: no events, feeling overall better 12/29: this am comfortable and sleeping, no events, cbc reviewed, no issues noted 12/30: no events to report, no night sweats, anemia panel reviewed 01/02: awake, alert, bed in lowest position 01/03: dc to [facility] once bed opens up, no events o/n 01/04: comfortable in bed, counts are lower, monitor for reverse isolation as needed 01/05: labs pending, no issues, besides intermittent cp, seen by cards, morphine given by rn 01/06: labs have been reviewed and no f/c noted, eating 01/08: no events to report, cbc has been reviewed, no bleeding 01/09: is on fentanyl patch, no major bleeding, otherwise asymptomatic, comfortable Objective Last 24 Hour Vital Signs Date Time Temp Pulse Resp B/P (MAP) Pulse Ox O2 Delivery O2 Flow Rate FiO2 01/09/19 16:00 97.4 73 18 127/69 (88) 97 01/09/19 12:00 97.9 73 18 128/68 (88) 97 01/09/19 11:56 97.7 01/09/19 09:48 Room Air 01/09/19 09:34 78 152/74 01/09/19 09:26 78 152/74 (100) 01/09/19 08:18 97.7 69 18 130/65 (86) 95 01/09/19 04:00 98.1 63 18 114/51 (72) 100 01/09/19 04:00 129/91 01/09/19 00:23 98.4 66 18 136/61 (86) 100 01/08/19 23:12 Room Air 01/08/19 21:00 69 115/65 01/08/19 20:00 99.3 66 18 127/62 (83) 100 Intake and Output 01/08/19 01/09/19 18:59 06:59 Intake Total 480 ml Output Total 450 ml Balance 480 ml -450 ml Intake Oral 480 ml Output Urine Total 450 ml # Voids 3 Height (Feet): 5 Height (Inches): 5.00 Weight (Pounds): 141 Objective General: well appearing, nad, alert Head: normocephalic, atraumatic Eyes: b/l eye PERRL, bilateral eye EOMI ENT: hearing grossly normal, normal pharynx Neck: full range of motion, supple, no meningismus Respiratory: chest non-tender, lungs clear, normal BSs, NC++ CV: regular rate, rhythm, no murmur GI: normal bowel sounds, non tender, no mass MSK: back normal, normal range of motion Psychiatric: mood/affect normal Skin: warm/dry Jose Alberto España MD Jan 09, 2019 18:35
--- NOTE | 2019-01-09 20:27 | Internal Med Progress Note ---
Subjective Date of Service: Jan 09, 2019 Physician Name Nikhil West Attending Physician Abdias Hunter MD Current Medications Medications (Trade) Dose Ordered Sig/Scout Route PRN Reason Start Time Stop Time Status Last Admin Dose Admin Atorvastatin Calcium (Lipitor) 40 mg QHS ORAL 12/19/18 21:00 01/18/19 20:59 01/08/19 21:53 Carvedilol (Coreg) 12.5 mg EVERY 12 HOURS ORAL 12/19/18 09:00 01/18/19 08:59 01/09/19 09:34 Docusate Sodium (Colace) 100 mg Q12H PRN ORAL Constipation 12/18/18 21:45 01/17/19 21:29 12/29/18 07:58 Fentanyl (Duragesic) 1 patch Q72H TDERMAL 01/10/19 18:00 01/17/19 17:59 Furosemide (Lasix) 20 mg DAILY ORAL 12/19/18 17:45 01/18/19 17:44 01/09/19 09:34 Miscellaneous Medication (fentaNYL Destruction) 1 ea Q72H MISC 01/01/19 17:59 01/31/19 17:58 01/01/19 17:28 Morphine Sulfate (Morphine Sulfate) 2 mg Q4H PRN IM For Pain 01/05/19 15:15 01/12/19 15:14 01/09/19 16:38 Nitroglycerin (Ntg) 0.4 mg Q5M PRN SL Prn Chest Pain 12/25/18 16:55 01/24/19 16:54 01/09/19 04:00 Polyethylene Glycol (Miralax) 17 gm DAILYPRN PRN ORAL Constipation 12/28/18 19:00 01/27/19 18:59 12/29/18 07:58 Allergies: Coded Allergies: No Known Allergies (Verified , 09/12/10) ROS Limited/Unobtainable: Yes Subjective 78 YO M admitted with chest pain. Now pancytopenia and UTI. Cover for Int Med- Dr Hunter. Objective Last Vital Signs Date Time Temp Pulse Resp B/P (MAP) Pulse Ox O2 Delivery O2 Flow Rate FiO2 01/09/19 16:00 97.4 73 18 127/69 (88) 97 01/09/19 09:48 Room Air Intake and Output 01/08/19 01/09/19 18:59 06:59 Intake Total 480 ml Output Total 450 ml Balance 480 ml -450 ml Intake Oral 480 ml Output Urine Total 450 ml # Voids 3 Objective PHYSICAL EXAMINATION: GENERAL: The patient awake, responsive, no acute distress. HEAD AND NECK: Pupils are equal and reactive to light. Extraocular movements are intact. Neck was supple. No JVD LUNGS: Good air entry. No wheeze or rales. HEART: S1, S2. Distant heart sounds. No murmur or gallops. Pacemaker in left-sided chest wall. ABDOMEN: Soft, nondistended, nontender. EXTREMITIES: No cyanosis, clubbing, edema. Varicose veins, bilateral lower extremities. NEUROLOGIC: Cranial nerves II through XII grossly intact. Motor is 5/5 in all extremities. Gait is intact. RECTAL: Refused and deferred. GENITOURINARY: Refused and deferred. PSYCHIATRIC: Mood and affect is depressed. Assessment/Plan Assessment/Plan ASSESSMENT: 1. Chest pain, possible acute coronary syndrome. 2. Hypertension. 3. Dyslipidemia. 4. Congestive heart failure. 5. Coronary artery disease. 6. Sick sinus syndrome, status pacemaker. 7. UTI. 8. Pancytopenia; S/P transfusion 5 units PRBC total-Severe anemia, Thrombocytopenia and leukopenia-?leukemia? see onc note. PLAN: Admit the patient to telemetry. Discussed case with Dr. Gee from Cardiology Electrophysiology. Await cardiac nuclear stress test-outpatient Dr. Luong, Pulmonary Critical Care. Urine cult=E. Coli. S/P Rocephin. DVT prophylaxis, heparin subcutaneous. Code status, Full Code. The patient is expected to be in the hospital greater than 2 days Discharge paln: [facility] S/P transfusion 2 units PRBC on 11/19/18 See Hematology consult-?acute myelocytic leukemia? Discharge to [facility]-see social work note Nikhil West MD Jan 09, 2019 20:27
[2019-01-09] MEDS: Atorvastatin 20mg tab ORAL SCH (21:15)
--- NOTE | 2019-01-09 22:45 | Cardiology Progress Note ---
Assessment/Plan Status: stable Assessment/Plan Assessment/Plan 1. CP and Hx of CABG. Likely due to severe anemia. Ruled out DC. 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 Off Aspirin and Plavix for thrombocytopenia 2. Cardiomyopathy. EF now 55%. On Coreg 12.5 mg bid and Lasix 20 daily 3. Status post [facility] atriobiventricular defibrillator. Interrogated and showed Nl Fx 4. Severe anemia, S/P multiple PRBC and platelet transfusions . 5. Pancytopenia. Off Aspirin and PLavix S/P platelet and PRBC transfusion. BM biopsy 11/29/[address] Stock 6. Placement Subjective Cardiovascular: Reports: no symptoms Respiratory: Reports: no symptoms Gastrointestinal/Abdominal: Reports: no symptoms Genitourinary: Reports: no symptoms Subjective Coverage for [employer] Objective Last 24 Hour Vital Signs Date Time Temp Pulse Resp B/P (MAP) Pulse Ox O2 Delivery O2 Flow Rate FiO2 01/09/19 21:14 72 112/63 01/09/19 21:00 Room Air 01/09/19 20:00 99.2 72 19 112/63 (79) 100 01/09/19 16:00 97.4 73 18 127/69 (88) 97 01/09/19 12:00 97.9 73 18 128/68 (88) 97 01/09/19 11:56 97.7 01/09/19 09:48 Room Air 01/09/19 09:34 78 152/74 01/09/19 09:26 78 152/74 (100) 01/09/19 08:18 97.7 69 18 130/65 (86) 95 01/09/19 04:00 98.1 63 18 114/51 (72) 100 01/09/19 04:00 129/91 01/09/19 00:23 98.4 66 18 136/61 (86) 100 01/08/19 23:12 Room Air General Appearance: no apparent distress, alert EENT: PERRL/EOMI, normal ENT inspection Neck: non-tender, normal alignment, normal inspection Rhythm: NSR Cardiovascular: normal peripheral pulses, regular rhythm, regularly irregular Respiratory/Chest: chest wall non-tender, lungs clear, no respiratory distress Abdomen: normal bowel sounds, soft, no mass Extremities: normal range of motion, non-tender 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
[2019-01-10] MEDS: Morphine Sulfate 2mg/ml Inj(IV/IM USE ONLY) IM PRN ×5 (02:09→20:42)
[2019-01-10 04:13] VITALS: BP 114/54
[2019-01-10 08:00] VITALS: BP 143/69
[2019-01-10] MEDS: Carvedilol 12.5mg tab ORAL SCH ×2 (08:34→20:42)
--- NOTE | 2019-01-10 10:29 | GI Progress Note ---
Assessment/Plan Problems: (1) History of CVA (cerebrovascular accident) ICD Codes: Z86.73 - Personal history of transient ischemic attack (TIA), and cerebral infarction without residual deficits SNOMED: 081536137 (2) Severe anemia ICD Codes: D64.9 - Anemia, unspecified SNOMED: 698715196 (3) Abdominal pain ICD Codes: R10.9 - Unspecified abdominal pain SNOMED: 23580111 (4) GERD (gastroesophageal reflux disease) ICD Codes: K21.9 - Gastro-esophageal reflux disease without esophagitis SNOMED: 860932363 Status: stable Status Narrative Discussed with Dr. Mcguire Assessment/Plan SUMMARY OF FINDINGS: 1. Gastritis. 2. A 6 cm hiatal hernia. RECOMMENDATIONS: Follow up biopsy results and treat accordingly. >> Mild chronic gastritis. Negative for H. pylori negative negative for dysplasia or malignancy. BM biopsy>> leukemia>> fu oncology monitor H&H, prn transfusions. bowel regime ppi, H2B qhs Zofran as needed fu labs Outpatient hep C treatment dc planning The patient was seen and examined at bedside and all new and available data was reviewed in the patients chart. I agree with the above findings, impression and plan. (Patient seen earlier today. Signature stamp does not reflect patient encounter time.). - Richie Mcguire MD Subjective Subjective Denies any abdominal pain Denies any constipation or diarrhea Tolerating diet Denies any nausea vomiting Objective Last 24 Hour Vital Signs Date Time Temp Pulse Resp B/P (MAP) Pulse Ox O2 Delivery O2 Flow Rate FiO2 01/10/19 09:00 Room Air 01/10/19 08:34 67 143/69 01/10/19 08:00 98.5 67 18 143/69 (93) 100 01/10/19 04:13 98.9 61 18 114/54 (74) 100 01/09/19 23:57 98.9 68 19 116/51 (72) 100 01/09/19 21:14 72 112/63 01/09/19 21:00 Room Air 01/09/19 20:00 99.2 72 19 112/63 (79) 100 01/09/19 16:00 97.4 73 18 127/69 (88) 97 01/09/19 12:00 97.9 73 18 128/68 (88) 97 4/8/19 11:56 97.7 Intake and Output 01/09/19 01/10/19 19:00 07:00 Output Total 475 ml 550 ml Balance -475 ml -550 ml Output Urine Total 475 ml 550 ml Height (Feet): 5 Height (Inches): 5.00 Weight (Pounds): 144 General Appearance: WD/WN, no apparent distress, alert Cardiovascular: normal rate Respiratory/Chest: normal breath sounds, no respiratory distress Abdominal Exam: normal bowel sounds, non tender, soft Extremities: normal range of motion, non-tender Jason Gray NP Jan 10, 2019 10:29
[2019-01-10 12:00] VITALS: BP 128/61
--- NOTE | 2019-01-10 12:47 | Pulmonology Progress Note ---
Assessment/Plan Problems: (1) Myeloblastic leukemia (2) Severe thrombocytopenia (3) ACS (acute coronary syndrome) (4) Cardiomyopathy (5) HTN (hypertension) (6) Pacemaker (7) Hypothyroidism (8) CAD (coronary artery disease) Assessment/Plan no new complains doing better, on fentNAYL PACH, pain better controlled dc all oral analgesics and try Fentanyl Patch doing better early leukemia check electrolytes no malignancy in bone marrow symptomatic treatment pain better controlled waiting for Medical application dc planning Subjective ROS Limited/Unobtainable: No Constitutional: Reports: no symptoms HEENT: Repors: no symptoms Allergies: Coded Allergies: No Known Allergies (Verified , 09/12/10) Objective Last 24 Hour Vital Signs Date Time Temp Pulse Resp B/P (MAP) Pulse Ox O2 Delivery O2 Flow Rate FiO2 01/10/19 12:00 98.6 66 18 128/61 (83) 100 01/10/19 10:55 98.5 01/10/19 09:00 Room Air 01/10/19 08:34 67 143/69 01/10/19 08:00 98.5 67 18 143/69 (93) 100 01/10/19 04:13 98.9 61 18 114/54 (74) 100 01/09/19 23:57 98.9 68 19 116/51 (72) 100 01/09/19 21:14 72 112/63 01/09/19 21:00 Room Air 01/09/19 20:00 99.2 72 19 112/63 (79) 100 01/09/19 16:00 97.4 73 18 127/69 (88) 97 Intake and Output 01/09/19 01/10/19 19:00 07:00 Output Total 475 ml 550 ml Balance -475 ml -550 ml Output Urine Total 475 ml 550 ml Objective General Appearance: cachetic Lines, tubes and drains: peripheral HEENT: normocephalic, atraumatic Neck: non-tender, normal alignment Respiratory/Chest: chest wall non-tender, lungs clear Breasts: no masses Cardiovascular/Chest: normal peripheral pulses, normal rate Abdomen: normal bowel sounds, non tender Genitourinary/Rectal: normal genital exam Extremities: normal range of motion Skin Exam: normal pigmentation 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 Current Medications Medications (Trade) Dose Ordered Sig/Scout Route PRN Reason Start Time Stop Time Status Last Admin Dose Admin Atorvastatin Calcium (Lipitor) 40 mg QHS ORAL 12/19/18 21:00 01/18/19 20:59 01/09/19 21:15 Carvedilol (Coreg) 12.5 mg EVERY 12 HOURS ORAL 12/19/18 09:00 01/18/19 08:59 01/10/19 08:34 Docusate Sodium (Colace) 100 mg Q12H PRN ORAL Constipation 12/18/18 21:45 01/17/19 21:29 12/29/18 07:58 Fentanyl (Duragesic) 1 patch Q72H TDERMAL 01/10/19 18:00 01/17/19 17:59 Furosemide (Lasix) 20 mg DAILY ORAL 12/19/18 17:45 01/18/19 17:44 01/10/19 08:34 Miscellaneous Medication (fentaNYL Destruction) 1 ea Q72H MISC 01/01/19 17:59 01/31/19 17:58 01/01/19 17:28 Morphine Sulfate (Morphine Sulfate) 2 mg Q4H PRN IM For Pain 01/05/19 15:15 01/12/19 15:14 01/10/19 10:25 Nitroglycerin (Ntg) 0.4 mg Q5M PRN SL Prn Chest Pain 12/25/18 16:55 01/24/19 16:54 01/09/19 04:00 Polyethylene Glycol (Miralax) 17 gm DAILYPRN PRN ORAL Constipation 12/28/18 19:00 01/27/19 18:59 12/29/18 07:58 Chepe Luong MD Jan 10, 2019 12:47
--- NOTE | 2019-01-10 15:02 | Cardiology Progress Note ---
Assessment/Plan Status: stable Assessment/Plan Assessment/Plan 1. CP and Hx of CABG. Likely due to severe anemia. Ruled out SD. 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 Off Aspirin and Plavix for thrombocytopenia 2. Cardiomyopathy. EF now 55%. On Coreg 12.5 mg bid and Lasix 20 daily 3. Status post [facility] atriobiventricular defibrillator. Interrogated and showed Nl Fx 4. Severe anemia, S/P multiple PRBC and platelet transfusions . 5. Pancytopenia. Off Aspirin and PLavix S/P platelet and PRBC transfusion. BM biopsy 11/29/[address] Stock 6. Placement Subjective Cardiovascular: Reports: no symptoms Respiratory: Reports: no symptoms Gastrointestinal/Abdominal: Reports: no symptoms Genitourinary: Reports: no symptoms Subjective Coverage for [employer] Objective Last 24 Hour Vital Signs Date Time Temp Pulse Resp B/P (MAP) Pulse Ox O2 Delivery O2 Flow Rate FiO2 01/10/19 12:00 98.6 66 18 128/61 (83) 100 01/10/19 10:55 98.5 01/10/19 09:00 Room Air 01/10/19 08:34 67 143/69 01/10/19 08:00 98.5 67 18 143/69 (93) 100 01/10/19 04:13 98.9 61 18 114/54 (74) 100 01/09/19 23:57 98.9 68 19 116/51 (72) 100 01/09/19 21:14 72 112/63 01/09/19 21:00 Room Air 01/09/19 20:00 99.2 72 19 112/63 (79) 100 01/09/19 16:00 97.4 73 18 127/69 (88) 97 General Appearance: no apparent distress, alert, moderate distress EENT: PERRL/EOMI, normal ENT inspection, TMs normal Neck: non-tender, normal alignment, supple, normal inspection, no JVD Rhythm: NSR Cardiovascular: normal peripheral pulses, normal rate Respiratory/Chest: chest wall non-tender, lungs clear, normal breath sounds Abdomen: normal bowel sounds, non tender, soft Extremities: normal range of motion, non-tender Neurologic: 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
[2019-01-10 16:00] VITALS: BP 133/61
--- NOTE | 2019-01-10 17:48 | Internal Med Progress Note ---
Subjective Date of Service: Jan 10, 2019 Physician Name Nikhil West Attending Physician Abdias Hunter MD Current Medications Medications (Trade) Dose Ordered Sig/Scout Route PRN Reason Start Time Stop Time Status Last Admin Dose Admin Atorvastatin Calcium (Lipitor) 40 mg QHS ORAL 12/19/18 21:00 01/18/19 20:59 01/09/19 21:15 Carvedilol (Coreg) 12.5 mg EVERY 12 HOURS ORAL 12/19/18 09:00 01/18/19 08:59 01/10/19 08:34 Docusate Sodium (Colace) 100 mg Q12H PRN ORAL Constipation 12/18/18 21:45 01/17/19 21:29 12/29/18 07:58 Fentanyl (Duragesic) 1 patch Q72H TDERMAL 01/10/19 18:00 01/17/19 17:59 Furosemide (Lasix) 20 mg DAILY ORAL 12/19/18 17:45 01/18/19 17:44 01/10/19 08:34 Miscellaneous Medication (fentaNYL Destruction) 1 ea Q72H MISC 01/01/19 17:59 01/31/19 17:58 01/01/19 17:28 Morphine Sulfate (Morphine Sulfate) 2 mg Q4H PRN IM For Pain 01/05/19 15:15 01/12/19 15:14 01/10/19 14:35 Nitroglycerin (Ntg) 0.4 mg Q5M PRN SL Prn Chest Pain 12/25/18 16:55 01/24/19 16:54 01/09/19 04:00 Polyethylene Glycol (Miralax) 17 gm DAILYPRN PRN ORAL Constipation 12/28/18 19:00 01/27/19 18:59 12/29/18 07:58 Allergies: Coded Allergies: No Known Allergies (Verified , 09/12/10) ROS Limited/Unobtainable: No Constitutional: Reports: no symptoms HEENT: Reports: no symptoms Cardiovascular: Reports: no symptoms Respiratory: Reports: no symptoms Gastrointestinal/Abdominal: Reports: no symptoms Genitourinary: Reports: no symptoms Neurologic/Psychiatric: Reports: no symptoms Subjective 78 YO M admitted with chest pain. Now pancytopenia and UTI. Cover for Int Med- Dr Hunter. Objective Last Vital Signs Date Time Temp Pulse Resp B/P (MAP) Pulse Ox O2 Delivery O2 Flow Rate FiO2 01/10/19 16:00 98.5 66 18 133/61 (85) 100 01/10/19 09:00 Room Air Intake and Output 01/09/19 01/10/19 19:00 07:00 Output Total 475 ml 550 ml Balance -475 ml -550 ml Output Urine Total 475 ml 550 ml Objective PHYSICAL EXAMINATION: GENERAL: The patient awake, responsive, no acute distress. HEAD AND NECK: Pupils are equal and reactive to light. Extraocular movements are intact. Neck was supple. No JVD LUNGS: Good air entry. No wheeze or rales. HEART: S1, S2. Distant heart sounds. No murmur or gallops. Pacemaker in left-sided chest wall. ABDOMEN: Soft, nondistended, nontender. EXTREMITIES: No cyanosis, clubbing, edema. Varicose veins, bilateral lower extremities. NEUROLOGIC: Cranial nerves II through XII grossly intact. Motor is 5/5 in all extremities. Gait is intact. RECTAL: Refused and deferred. GENITOURINARY: Refused and deferred. PSYCHIATRIC: Mood and affect is depressed. Assessment/Plan Assessment/Plan ASSESSMENT: 1. Chest pain, possible acute coronary syndrome. 2. Hypertension. 3. Dyslipidemia. 4. Congestive heart failure. 5. Coronary artery disease. 6. Sick sinus syndrome, status pacemaker. 7. UTI. 8. Pancytopenia; S/P transfusion 5 units PRBC total-Severe anemia, Thrombocytopenia and leukopenia-?leukemia? see onc note. PLAN: Admit the patient to telemetry. Discussed case with Dr. Gee from Cardiology Electrophysiology. Await cardiac nuclear stress test-outpatient Dr. Luong, Pulmonary Critical Care. Urine cult=E. Coli. S/P Rocephin. DVT prophylaxis, heparin subcutaneous. Code status, Full Code. The patient is expected to be in the hospital greater than 2 days Discharge paln: [facility] S/P transfusion 2 units PRBC on 11/19/18 See Hematology consult-?acute myelocytic leukemia? Discharge to [facility]-see social work note Nikhil West MD Jan 10, 2019 17:48
[2019-01-10] MEDS: fentaNYL Destruction MISC SCH (17:59)
[2019-01-10 20:00] VITALS: BP 121/56
[2019-01-10] MEDS: Atorvastatin 20mg tab ORAL SCH (20:42)
--- NOTE | 2019-01-10 20:55 | General Progress Note ---
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+++ --> bone marrow bipsy/aspiration report reviewed and concerning for LEUKEMIA with 8.7% myeloblasts --> Continue to monitor for improvement, trend cbc --> HIV is negative, but hep C++ --> US abd ordered to r/o cirrhosis and hsm and is negative for those --> reverse isolation if ANC is <2000 --> Give neupogen if ANC <1000 --> Transfuse if hgb <7, with 1 unit prbc --> hospice v treatment as per pcp recommendations and referral --> Hgb trend: 9-->8.7-->7.9-->7-->7.6-->7.4->8.1-->7.7-->6.5-->8.3-->7.7-->7.5- ->7.4-->8.9 # Thrombocytopenia - potential causes multifactorial, evaluate liver and viral etiologies to begin, also could be related to underlying medications patient has received. --> Hep panel and HIV negative, hep C++++ --> US abd to evaluate for cirrhosis and hsm reviewed --> Peripheral smear ordered to evaluate for blasts /schistocytes is wnl --> abx and other meds have been reviewed --> ok for ppx if plt >50k w/ either heparin or lovenox --> Transfuse if Plt < 20k and fever, or if Plt < 10k without fever --->Plt trend 70-->65-->44-->86-->122-->88-->100k-->140k-->154k-->78k-->72k # Reticulocytosis with elevated bilirubin that is indirect --> reviewed direct and indirect bilis again, trend could have liver disease --> liver US shows no significant cirrhosis --> evaluate as needed with gi team, recs apprecaited #. Chest pain, possible acute coronary syndrome. --> cards recs appreciated as well as pulm --> stress test prn # Hypertension. sbp goal <140 -- > as per cards recs # Dyslipidemia. # Chf # Coronary artery disease. # Sick sinus syndrome, status pacemaker. # Acute E. coli UTI s/p abx # Hep C+++ needs op management The timing of this note does not necessarily reflect the time of the patient was seen. Greatly appreciate consultation! Subjective Constitutional: Denies: no symptoms, chills, diaphoresis, fever, malaise, weakness, other HEENT: Denies: no symptoms, eye pain, blurred vision, tearing, double vision, ear pain, ear discharge, nose pain, nose congestion, throat pain, throat swelling, mouth pain, mouth swelling, other Cardiovascular: Denies: no symptoms, chest pain, edema, irregular heart rate, lightheadedness, palpitations, syncope, other Respiratory: Denies: no symptoms, cough, orthopnea, shortness of breath, SOB with excertion, SOB at rest, sputum, stridor, wheezing, other Gastrointestinal/Abdominal: Denies: no symptoms, abdomen distended, abdominal pain, black stools, tarry stools, blood in stool, constipated, diarrhea, difficulty swallowing, nausea, poor appetite, poor fluid intake, rectal bleeding , vomiting, other Genitourinary: Denies: no symptoms, burning, discharge, frequency, flank pain, hematuria, incontinence, pain, urgency, other Neurologic/Psychiatric: Denies: no symptoms, anxiety, depressed, emotional problems, headache, numbness, paresthesia, pre-existing deficit, seizure, tingling, tremors, weakness, other Allergies: Coded Allergies: No Known Allergies (Verified , 09/12/10) Subjective 11/27: no events to report, no f/c 11/28: seen by bedside, plt 65, plan for EGD and bone marrow biopsy tomorrow 11/29: BM biopsy today, no acute distress. 11/30: Had BM biopsy yesterday and now in reverse isolation. hgb 7.5, will transfuse as needed. 12/01: seen by bedside, plt remains low, awaiting bone marrow biopsy results. 12/02: No acute distress, no chest pain, no shortness of breath, wbc 2.7, hgb 7.3 , plt 50, will transfuse as needed. S/P BM biopsy 11/29/18, Results pending 12/04: bone marrow biopsy completed, and show myeloblasts, c/w mds/leukemia, requires close surveillance 12/05: hgb 6.9, Had blood transfusion today, plt up trending, no events 12/06: Seen by bedside, overall improved, still has complaint of chest pain, plt trending up 12/07: Given 1 unit prbc, continues to c/o chest pain, seen by cards 12/08: seen by bedside, complains of pain, plt 106, no events 12/09: awake, comfortable, plt trending down at 69, no events 12/11: awake, comfortable, on NC, plt remains low at 70. 12/12: awake, comfortable, plt 65, no events 12/13: seen by bedside, awake , comfortable, pending labs. 12/14: awake, comfortable, hgb 7.9, monitor, will transfuse as needed, plt trending down at 44, 12/15: seen by bedside, awake, comfortable, hgb 7, will transfuse as needed, plt 82. 12/16: awake comfortable, no events, hgb trending up 12/18: seen by bedside, alert, oriented, no acute distress 12/19: no events noted, no fevers or chills, cbc has been reviewed, had blasts on smear this wknd 12/20: seen by bedside, awake, comfortable, hgb 7.4, will transfuse as needed. 12/21: No overnight events reported, comfortable, hgb 8.1 12/22: no events to report, remains nausous, the platelet count has improved on its own 12/23: awaiting placement to snf at this time, following with cards, pulm 12/24: on 2l nc, received morphine today by rn, complaining of pain 12/25: no events today, no f/c, labs reviewed 12/26: no events report, will get one unit prbc today, has been ordered 12/27: hgb stable/improved but is after transfusion, no events otherwise no fevers 12/28: no events, feeling overall better 12/29: this am comfortable and sleeping, no events, cbc reviewed, no issues noted 12/30: no events to report, no night sweats, anemia panel reviewed 01/02: awake, alert, bed in lowest position 01/03: dc to [facility] once bed opens up, no events o/n 01/04: comfortable in bed, counts are lower, monitor for reverse isolation as needed 01/05: labs pending, no issues, besides intermittent cp, seen by cards, morphine given by rn 01/06: labs have been reviewed and no f/c noted, eating 01/08: no events to report, cbc has been reviewed, no bleeding 01/09: is on fentanyl patch, no major bleeding, otherwise asymptomatic, comfortable 01/10: no fevers or chills, no weigt loss, comfortable today Objective Last 24 Hour Vital Signs Date Time Temp Pulse Resp B/P (MAP) Pulse Ox O2 Delivery O2 Flow Rate FiO2 01/10/19 20:42 66 133/61 01/10/19 19:24 98.5 01/10/19 16:00 98.5 66 18 133/61 (85) 100 01/10/19 15:05 98.6 01/10/19 12:00 98.6 66 18 128/61 (83) 100 01/10/19 09:00 Room Air 01/10/19 08:34 67 143/69 01/10/19 08:00 98.5 67 18 143/69 (93) 100 01/10/19 04:13 98.9 61 18 114/54 (74) 100 01/09/19 23:57 98.9 68 19 116/51 (72) 100 01/09/19 21:14 72 112/63 01/09/19 21:00 Room Air Intake and Output 01/09/19 01/10/19 18:59 06:59 Output Total 475 ml 550 ml Balance -475 ml -550 ml Output Urine Total 475 ml 550 ml Height (Feet): 5 Height (Inches): 5.00 Weight (Pounds): 144 Objective General: well appearing, nad, alert Head: normocephalic, atraumatic Eyes: b/l eye PERRL, bilateral eye EOMI ENT: hearing grossly normal, normal pharynx Neck: full range of motion, supple, no meningismus Respiratory: chest non-tender, lungs clear, normal BSs, NC++ CV: regular rate, rhythm, no murmur GI: normal bowel sounds, non tender, no mass MSK: back normal, normal range of motion Psychiatric: mood/affect normal Skin: warm/dry Jose Alberto España MD Jan 10, 2019 20:55
[2019-01-11] VITALS: BP 112/52
[2019-01-11] MEDS: Morphine Sulfate 2mg/ml Inj(IV/IM USE ONLY) IM PRN ×4 (02:41→20:57)
[2019-01-11 04:00] VITALS: BP 129/57
[2019-01-11 08:00] VITALS: BP 107/46
[2019-01-11] MEDS: Carvedilol 12.5mg tab ORAL SCH ×2 (09:10→20:22)
--- NOTE | 2019-01-11 11:15 | Internal Med Progress Note ---
Subjective Date of Service: Jan 11, 2019 Physician Name Nikhil West Attending Physician Abdias Hunter MD Current Medications Medications (Trade) Dose Ordered Sig/Scout Route PRN Reason Start Time Stop Time Status Last Admin Dose Admin Atorvastatin Calcium (Lipitor) 40 mg QHS ORAL 12/19/18 21:00 01/18/19 20:59 01/10/19 20:42 Carvedilol (Coreg) 12.5 mg EVERY 12 HOURS ORAL 12/19/18 09:00 01/18/19 08:59 01/11/19 09:10 Docusate Sodium (Colace) 100 mg Q12H PRN ORAL Constipation 12/18/18 21:45 01/17/19 21:29 12/29/18 07:58 Fentanyl (Duragesic) 1 patch Q72H TDERMAL 01/10/19 18:00 01/17/19 17:59 01/10/19 18:54 Furosemide (Lasix) 20 mg DAILY ORAL 12/19/18 17:45 01/18/19 17:44 01/11/19 09:10 Miscellaneous Medication (fentaNYL Destruction) 1 ea Q72H MISC 01/01/19 17:59 01/31/19 17:58 01/10/19 17:59 Morphine Sulfate (Morphine Sulfate) 2 mg Q4H PRN IM For Pain 01/05/19 15:15 01/12/19 15:14 01/11/19 02:41 Nitroglycerin (Ntg) 0.4 mg Q5M PRN SL Prn Chest Pain 12/25/18 16:55 01/24/19 16:54 01/09/19 04:00 Polyethylene Glycol (Miralax) 17 gm DAILYPRN PRN ORAL Constipation 12/28/18 19:00 01/27/19 18:59 12/29/18 07:58 Allergies: Coded Allergies: No Known Allergies (Verified , 09/12/10) ROS Limited/Unobtainable: No Constitutional: Reports: no symptoms HEENT: Reports: no symptoms Cardiovascular: Reports: no symptoms Respiratory: Reports: no symptoms Gastrointestinal/Abdominal: Reports: no symptoms Genitourinary: Reports: no symptoms Neurologic/Psychiatric: Reports: no symptoms Subjective 78 YO M admitted with chest pain. Now pancytopenia and UTI. Cover for Int Med- Dr Hunter. Objective Last Vital Signs Date Time Temp Pulse Resp B/P (MAP) Pulse Ox O2 Delivery O2 Flow Rate FiO2 01/11/19 09:10 70 107/46 01/11/19 09:00 Room Air 01/11/19 08:00 96.7 15 100 Intake and Output 01/10/19 01/11/19 19:00 07:00 Intake Total 1080 ml Balance 1080 ml Intake Oral 1080 ml # Voids 6 Objective PHYSICAL EXAMINATION: GENERAL: The patient awake, responsive, no acute distress. HEAD AND NECK: Pupils are equal and reactive to light. Extraocular movements are intact. Neck was supple. No JVD LUNGS: Good air entry. No wheeze or rales. HEART: S1, S2. Distant heart sounds. No murmur or gallops. Pacemaker in left-sided chest wall. ABDOMEN: Soft, nondistended, nontender. EXTREMITIES: No cyanosis, clubbing, edema. Varicose veins, bilateral lower extremities. NEUROLOGIC: Cranial nerves II through XII grossly intact. Motor is 5/5 in all extremities. Gait is intact. RECTAL: Refused and deferred. GENITOURINARY: Refused and deferred. PSYCHIATRIC: Mood and affect is depressed. Assessment/Plan Assessment/Plan ASSESSMENT: 1. Chest pain, possible acute coronary syndrome. 2. Hypertension. 3. Dyslipidemia. 4. Congestive heart failure. 5. Coronary artery disease. 6. Sick sinus syndrome, status pacemaker. 7. UTI. 8. Pancytopenia; S/P transfusion 6 units PRBC total-Severe anemia, Thrombocytopenia and leukopenia-?leukemia? see onc note. PLAN: Admit the patient to telemetry. Discussed case with Dr. Gee from Cardiology Electrophysiology. Await cardiac nuclear stress test-outpatient Dr. Luong, Pulmonary Critical Care. Urine cult=E. Coli. S/P Rocephin. DVT prophylaxis, heparin subcutaneous. Code status, Full Code. The patient is expected to be in the hospital greater than 2 days Discharge paln: [facility] See Hematology consult-?acute myelocytic leukemia? Discharge to [facility]-see social work note Nikhil West MD Jan 11, 2019 11:15
--- NOTE | 2019-01-11 11:20 | Cardiology Progress Note ---
Assessment/Plan Status: stable Assessment/Plan Assessment/Plan 1. CP and Hx of CABG. Likely due to severe anemia. Ruled out CA. 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 Off Aspirin and Plavix for thrombocytopenia 2. Cardiomyopathy. EF now 55%. On Coreg 12.5 mg bid and Lasix 20 daily [address] [facility] atriobiventricular defibrillator. Interrogated and showed Nl Fx 4. Severe anemia, S/P multiple PRBC and platelet transfusions . 5. Pancytopenia. Off Aspirin and PLavix S/P platelet and PRBC transfusion. BM biopsy 11/29/[address] Stock 6. Placement Subjective Cardiovascular: Reports: no symptoms Respiratory: Reports: no symptoms Gastrointestinal/Abdominal: Reports: no symptoms Genitourinary: Reports: no symptoms Subjective Patient alert x4, on room air, no sign of distress and shortness of breath; no sign of chest pain Coverage for [place] Objective Last 24 Hour Vital Signs Date Time Temp Pulse Resp B/P (MAP) Pulse Ox O2 Delivery O2 Flow Rate FiO2 01/11/19 09:10 70 107/46 01/11/19 09:00 Room Air 01/11/19 08:00 96.7 70 15 107/46 (66) 100 01/11/19 04:00 97.3 64 18 129/57 (81) 98 01/11/19 00:00 98.4 72 18 112/52 (72) 100 01/10/19 21:00 Room Air 01/10/19 20:42 66 133/61 01/10/19 20:00 97.1 67 18 121/56 (77) 100 01/10/19 19:24 98.5 01/10/19 16:00 98.5 66 18 133/61 (85) 100 01/10/19 15:05 98.6 01/10/19 12:00 98.6 66 18 128/61 (83) 100 General Appearance: no apparent distress, alert EENT: PERRL/EOMI, normal ENT inspection Neck: non-tender, normal alignment, supple, normal inspection, no JVD Rhythm: NSR Cardiovascular: normal peripheral pulses, normal rate, regular rhythm Respiratory/Chest: chest wall non-tender, lungs clear, normal breath sounds Abdomen: normal bowel sounds, non tender, soft, no organomegaly, no mass Extremities: normal range of motion, non-tender, normal inspection Neurologic: relay adjuster II-XII grossly normal, no motor/sensory deficits Intake and Output 01/10/19 01/11/19 18:59 06:59 Intake Total 1080 ml Balance 1080 ml Intake Oral 1080 ml # Voids 6 Yair Damon MD Jan 11, 2019 11:20
--- NOTE | 2019-01-11 11:20 | GI Progress Note ---
Assessment/Plan Problems: (1) History of CVA (cerebrovascular accident) ICD Codes: Z86.73 - Personal history of transient ischemic attack (TIA), and cerebral infarction without residual deficits SNOMED: 091411859 (2) Severe anemia ICD Codes: D64.9 - Anemia, unspecified SNOMED: 960821638 (3) Abdominal pain ICD Codes: R10.9 - Unspecified abdominal pain SNOMED: 53825439 (4) GERD (gastroesophageal reflux disease) ICD Codes: K21.9 - Gastro-esophageal reflux disease without esophagitis SNOMED: 114706695 Status: stable Status Narrative Discussed with Dr. Mcguire. Assessment/Plan SUMMARY OF FINDINGS: 1. Gastritis. 2. A 6 cm hiatal hernia. RECOMMENDATIONS: Follow up biopsy results and treat accordingly. >> Mild chronic gastritis. Negative for H. pylori negative negative for dysplasia or malignancy. BM biopsy>> leukemia>> fu oncology monitor H&H, prn transfusions. bowel regime ppi, H2B qhs Zofran as needed fu labs Outpatient hep C treatment dc planning The patient was seen and examined at bedside and all new and available data was reviewed in the patients chart. I agree with the above findings, impression and plan. (Patient seen earlier today. Signature stamp does not reflect patient encounter time.). - Richie Mcguire MD Subjective Subjective Denies any abdominal pain Denies any constipation or diarrhea Tolerating diet Denies any nausea vomiting Objective Last 24 Hour Vital Signs Date Time Temp Pulse Resp B/P (MAP) Pulse Ox O2 Delivery O2 Flow Rate FiO2 01/11/19 09:10 70 107/46 01/11/19 09:00 Room Air 01/11/19 08:00 96.7 70 15 107/46 (66) 100 01/11/19 04:00 97.3 64 18 129/57 (81) 98 01/11/19 00:00 98.4 72 18 112/52 (72) 100 01/10/19 21:00 Room Air 01/10/19 20:42 66 133/61 01/10/19 20:00 97.1 67 18 121/56 (77) 100 01/10/19 19:24 98.5 01/10/19 16:00 98.5 66 18 133/61 (85) 100 01/10/19 15:05 98.6 01/10/19 12:00 98.6 66 18 128/61 (83) 100 Intake and Output 01/10/19 01/11/19 19:00 07:00 Intake Total 1080 ml Balance 1080 ml Intake Oral 1080 ml # Voids 6 Height (Feet): 5 Height (Inches): 5.00 Weight (Pounds): 143 General Appearance: WD/WN, no apparent distress, alert Cardiovascular: normal rate Respiratory/Chest: normal breath sounds, no respiratory distress Abdominal Exam: normal bowel sounds, non tender, soft Extremities: normal range of motion, non-tender 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
[2019-01-11 12:00] VITALS: BP 137/61
--- NOTE | 2019-01-11 12:43 | Pulmonology Progress Note ---
Assessment/Plan Problems: (1) Myeloblastic leukemia (2) Severe thrombocytopenia (3) ACS (acute coronary syndrome) (4) Cardiomyopathy (5) HTN (hypertension) (6) Pacemaker (7) Hypothyroidism (8) CAD (coronary artery disease) Assessment/Plan no new complains doing better, on fentNAYL PACH, pain better controlled dc all oral analgesics and try Fentanyl Patch doing better early leukemia check electrolytes no malignancy in bone marrow symptomatic treatment pain better controlled waiting for Medical application dc planning Subjective ROS Limited/Unobtainable: No Constitutional: Reports: no symptoms HEENT: Repors: no symptoms Allergies: Coded Allergies: No Known Allergies (Verified , 09/12/10) Objective Last 24 Hour Vital Signs Date Time Temp Pulse Resp B/P (MAP) Pulse Ox O2 Delivery O2 Flow Rate FiO2 01/11/19 09:10 70 107/46 01/11/19 09:00 Room Air 01/11/19 08:00 96.7 70 15 107/46 (66) 100 01/11/19 04:00 97.3 64 18 129/57 (81) 98 01/11/19 00:00 98.4 72 18 112/52 (72) 100 01/10/19 21:00 Room Air 01/10/19 20:42 66 133/61 01/10/19 20:00 97.1 67 18 121/56 (77) 100 01/10/19 19:24 98.5 01/10/19 16:00 98.5 66 18 133/61 (85) 100 01/10/19 15:05 98.6 Intake and Output 01/10/19 01/11/19 19:00 07:00 Intake Total 1080 ml Balance 1080 ml Intake Oral 1080 ml # Voids 6 Objective General Appearance: cachetic Lines, tubes and drains: peripheral HEENT: normocephalic, atraumatic Neck: non-tender, normal alignment Respiratory/Chest: chest wall non-tender, lungs clear Breasts: no masses Cardiovascular/Chest: normal peripheral pulses, normal rate Abdomen: normal bowel sounds, non tender Genitourinary/Rectal: normal genital exam Extremities: normal range of motion Skin Exam: normal pigmentation Neurologic: out patient therapist II-XII grossly normal Current Medications Medications (Trade) Dose Ordered Sig/Scout Route PRN Reason Start Time Stop Time Status Last Admin Dose Admin Atorvastatin Calcium (Lipitor) 40 mg QHS ORAL 12/19/18:00 01/18/19 20:59 01/10/19 20:42 Carvedilol (Coreg) 12.5 mg EVERY 12 HOURS ORAL 12/19/18 09:00 01/18/19 08:59 01/11/19 09:10 Docusate Sodium (Colace) 100 mg Q12H PRN ORAL Constipation 12/18/18 21:45 01/17/19 21:29 12/29/18 07:58 Fentanyl (Duragesic) 1 patch Q72H TDERMAL 01/10/19 18:00 01/17/19 17:59 01/10/19 18:54 Furosemide (Lasix) 20 mg DAILY ORAL 12/19/18 17:45 01/18/19 17:44 01/11/19 09:10 Miscellaneous Medication (fentaNYL Destruction) 1 ea Q72H MISC 01/01/19 17:59 01/31/19 17:58 01/10/19 17:59 Morphine Sulfate (Morphine Sulfate) 2 mg Q4H PRN IM For Pain 01/05/19 15:15 01/12/19 15:14 01/11/19 12:08 Nitroglycerin (Ntg) 0.4 mg Q5M PRN SL Prn Chest Pain 12/25/18 16:55 01/24/19 16:54 01/09/19 04:00 Polyethylene Glycol (Miralax) 17 gm DAILYPRN PRN ORAL Constipation 12/28/18 19:00 01/27/19 18:59 12/29/18 07:58 Chepe Luong MD Jan 11, 2019 12:43
[2019-01-11 16:00] VITALS: BP 109/50
--- NOTE | 2019-01-11 17:09 | General Progress Note ---
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+++ --> bone marrow bipsy/aspiration report reviewed and concerning for LEUKEMIA with 8.7% myeloblasts --> Continue to monitor for improvement, trend cbc --> HIV is negative, but hep C++ --> US abd ordered to r/o cirrhosis and hsm and is negative for those --> reverse isolation if ANC is <2000 --> Give neupogen if ANC <1000 --> Transfuse if hgb <7, with 1 unit prbc --> hospice v treatment as per pcp recommendations and referral --> Hgb trend: 9-->8.7-->7.9-->7-->7.6-->7.4->8.1-->7.7-->6.5-->8.3-->7.7-->7.5- ->7.4-->8.9 # Thrombocytopenia - potential causes multifactorial, evaluate liver and viral etiologies to begin, also could be related to underlying medications patient has received. --> Hep panel and HIV negative, hep C++ --> US abd to evaluate for cirrhosis and hsm reviewed --> Peripheral smear ordered to evaluate for blasts /schistocytes is wnl --> abx and other meds have been reviewed --> ok for ppx if plt >50k w/ either heparin or lovenox --> Transfuse if Plt < 20k and fever, or if Plt < 10k without fever --->Plt trend 70-->65-->44-->86-->122-->88-->100k-->140k-->154k-->78k-->72k # Reticulocytosis with elevated bilirubin that is indirect --> reviewed direct and indirect bilis again, trend could have liver disease --> liver US shows no significant cirrhosis --> evaluate as needed with gi team, recs apprecaited #. Chest pain, possible acute coronary syndrome. --> cards recs appreciated as well as pulm --> stress test prn # Hypertension. sbp goal <140 -- > as per cards recs # Dyslipidemia. on statin prn # Chf # Coronary artery disease. # Sick sinus syndrome, status pacemaker. # Acute E. coli UTI s/p abx # Hep C+++ needs op management # Chronic pain is on fentanyl patch prn The timing of this note does not necessarily reflect the time of the patient was seen. Greatly appreciate consultation! Subjective Constitutional: Denies: no symptoms, chills, diaphoresis, fever, malaise, weakness, other HEENT: Denies: no symptoms, eye pain, blurred vision, tearing, double vision, ear pain, ear discharge, nose pain, nose congestion, throat pain, throat swelling, mouth pain, mouth swelling, other Cardiovascular: Denies: no symptoms, chest pain, edema, irregular heart rate, lightheadedness, palpitations, syncope, other Respiratory: Denies: no symptoms, cough, orthopnea, shortness of breath, SOB with excertion, SOB at rest, sputum, stridor, wheezing, other Gastrointestinal/Abdominal: Denies: no symptoms, abdomen distended, abdominal pain, black stools, tarry stools, blood in stool, constipated, diarrhea, difficulty swallowing, nausea, poor appetite, poor fluid intake, rectal bleeding , vomiting, other Genitourinary: Denies: no symptoms, burning, discharge, frequency, flank pain, hematuria, incontinence, pain, urgency, other Neurologic/Psychiatric: Denies: no symptoms, anxiety, depressed, emotional problems, headache, numbness, paresthesia, pre-existing deficit, seizure, tingling, tremors, weakness, other Endocrine: Denies: no symptoms, excessive sweating, flushing, intolerance to cold, intolerance to heat, increased hunger, increased thirst, increased urine, unexplained weight gain, unexplained weight loss, other Hematologic/Lymphatic: Denies: no symptoms, anemia, easy bleeding, easy bruising, other Allergies: Coded Allergies: No Known Allergies (Verified , 09/12/10) Subjective 11/27: no events to report, no f/c 11/28: seen by bedside, plt 65, plan for EGD and bone marrow biopsy tomorrow 11/29: BM biopsy today, no acute distress. 11/30: Had BM biopsy yesterday and now in reverse isolation. hgb 7.5, will transfuse as needed. 12/01: seen by bedside, plt remains low, awaiting bone marrow biopsy results. 12/02: No acute distress, no chest pain, no shortness of breath, wbc 2.7, hgb 7.3 , plt 50, will transfuse as needed. S/P BM biopsy 11/29/18, Results pending 12/04: bone marrow biopsy completed, and show myeloblasts, c/w mds/leukemia, requires close surveillance 12/05: hgb 6.9, Had blood transfusion today, plt up trending, no events 12/06: Seen by bedside, overall improved, still has complaint of chest pain, plt trending up 12/07: Given 1 unit prbc, continues to c/o chest pain, seen by cards 12/08: seen by bedside, complains of pain, plt 106, no events 12/09: awake, comfortable, plt trending down at 69, no events 12/11: awake, comfortable, on NC, plt remains low at 70. 12/12: awake, comfortable, plt 65, no events 12/13: seen by bedside, awake , comfortable, pending labs. 12/14: awake, comfortable, hgb 7.9, monitor, will transfuse as needed, plt trending down at 44, 12/15: seen by bedside, awake, comfortable, hgb 7, will transfuse as needed, plt 82. 12/16: awake comfortable, no events, hgb trending up 12/18: seen by bedside, alert, oriented, no acute distress 12/19: no events noted, no fevers or chills, cbc has been reviewed, had blasts on smear this wknd 12/20: seen by bedside, awake, comfortable, hgb 7.4, will transfuse as needed. 12/21: No overnight events reported, comfortable, hgb 8.1 12/22: no events to report, remains nausous, the platelet count has improved on its own 12/23: awaiting placement to snf at this time, following with lawrence, pulm 12/24: on 2l nc, received morphine today by rn, complaining of pain 12/25: no events today, no f/c, labs reviewed 12/26: no events report, will get one unit prbc today, has been ordered 12/27: hgb stable/improved but is after transfusion, no events otherwise no fevers 12/28: no events, feeling overall better 12/29: this am comfortable and sleeping, no events, cbc reviewed, no issues noted 12/30: no events to report, no night sweats, anemia panel reviewed 01/02: awake, alert, bed in lowest position 01/03: dc to [facility] once bed opens up, no events o/n 01/04: comfortable in bed, counts are lower, monitor for reverse isolation as needed 01/05: labs pending, no issues, besides intermittent cp, seen by cards, morphine given by rn 01/06: labs have been reviewed and no f/c noted, eating 01/08: no events to report, cbc has been reviewed, no bleeding 01/09: is on fentanyl patch, no major bleeding, otherwise asymptomatic, comfortable 01/10: no fevers or chills, no weigt loss, comfortable today 01/11: no events noted, on fentanyl patch at this time Objective Last 24 Hour Vital Signs Date Time Temp Pulse Resp B/P (MAP) Pulse Ox O2 Delivery O2 Flow Rate FiO2 01/11/19 16:56 98.6 01/11/19 16:00 98.6 64 18 109/50 (69) 100 01/11/19 12:00 97.0 68 18 137/61 (86) 98 01/11/19 09:10 70 107/46 01/11/19 09:00 Room Air 01/11/19 08:00 96.7 70 15 107/46 (66) 100 01/11/19 04:00 97.3 64 18 129/57 (81) 98 01/11/19 00:00 98.4 72 18 112/52 (72) 100 01/10/19 21:00 Room Air 01/10/19 20:42 66 133/61 01/10/19 20:00 97.1 67 18 121/56 (77) 100 01/10/19 19:24 98.5 Intake and Output 01/10/19 01/11/19 19:00 07:00 Intake Total 1080 ml Balance 1080 ml Intake Oral 1080 ml # Voids 6 Height (Feet): 5 Height (Inches): 5.00 Weight (Pounds): 143 Objective General: well appearing, nad, alert Head: normocephalic, atraumatic Eyes: b/l eye PERRL, bilateral eye EOMI ENT: hearing grossly normal, normal pharynx Neck: full range of motion, supple, no meningismus Respiratory: chest non-tender, lungs clear, normal BSs, NC++ CV: regular rate, rhythm, no murmur GI: normal bowel sounds, non tender, no mass MSK: back normal, normal range of motion Psychiatric: mood/affect normal Skin: warm/dry Jose Alberto España MD Jan 11, 2019 17:09
[2019-01-11 20:00] VITALS: BP 128/56
[2019-01-11] MEDS: Atorvastatin 20mg tab ORAL SCH (20:22)
[2019-01-12] VITALS: BP 115/48
[2019-01-12] MEDS: Morphine Sulfate 2mg/ml Inj(IV/IM USE ONLY) IM PRN ×4 (01:59→20:40)
[2019-01-12 04:00] VITALS: BP 113/52
[2019-01-12 06:48] LABS: HEMATOCRIT 22.9 % (42.0-52.0); HEMOGLOBIN 7.4 G/DL (14.2-18.0); MEAN CORPUSCULAR VOLUME 77 FL (80-99); PLATELET COUNT 113 K/UL (150-450); RED BLOOD COUNT 2.97 M/UL (4.70-6.10); RED CELL DISTRIBUTION WIDTH 22.3 % (11.6-14.8); WHITE BLOOD COUNT 5.8 K/UL (4.8-10.8)
[2019-01-12 07:16] LABS: ANION GAP 8 mmol/L (5-15); BLOOD UREA NITROGEN 16 mg/dL (7-18); CALCIUM 8.3 MG/DL (8.5-10.1); CARBON DIOXIDE 29 MMOL/L (21-32); CHLORIDE 97 MMOL/L (98-107); CREATININE 0.8 MG/DL (0.55-1.30); POTASSIUM 3.6 MMOL/L (3.5-5.1); SODIUM 134 MMOL/L (136-145)
[2019-01-12 08:00] VITALS: BP 109/50
--- NOTE | 2019-01-12 10:35 | GI Progress Note ---
Assessment/Plan Problems: (1) History of CVA (cerebrovascular accident) ICD Codes: Z86.73 - Personal history of transient ischemic attack (TIA), and cerebral infarction without residual deficits SNOMED: 708373051 (2) Severe anemia ICD Codes: D64.9 - Anemia, unspecified SNOMED: 049937856 (3) Abdominal pain ICD Codes: R10.9 - Unspecified abdominal pain SNOMED: 04318864 (4) GERD (gastroesophageal reflux disease) ICD Codes: K21.9 - Gastro-esophageal reflux disease without esophagitis SNOMED: 700817511 Status: stable Status Narrative Discussed with Dr. Mcguire. Assessment/Plan SUMMARY OF FINDINGS: 1. Gastritis. 2. A 6 cm hiatal hernia. pending placement RECOMMENDATIONS: Follow up biopsy results and treat accordingly. >> Mild chronic gastritis. Negative for H. pylori negative negative for dysplasia or malignancy. BM biopsy>> leukemia>> fu oncology monitor H&H, prn transfusions. bowel regime ppi, H2B qhs Zofran as needed fu labs Outpatient hep C treatment dc planning The patient was seen and examined at bedside and all new and available data was reviewed in the patients chart. I agree with the above findings, impression and plan. (Patient seen earlier today. Signature stamp does not reflect patient encounter time.). - Richie Mcguire MD Subjective Gastrointestinal/Abdominal: Reports: no symptoms Subjective Denies any abdominal pain Denies any constipation or diarrhea Tolerating diet Denies any nausea vomiting Objective Last 24 Hour Vital Signs Date Time Temp Pulse Resp B/P (MAP) Pulse Ox O2 Delivery O2 Flow Rate FiO2 01/12/19 08:21 96 Nasal Cannula 2.0 01/12/19 08:20 Nasal Cannula 2.0 01/12/19 08:00 96.1 71 18 109/50 (69) 100 01/12/19 04:00 98.1 63 18 113/52 (72) 99 01/12/19 02:29 98.8 01/12/19 00:00 98.8 69 18 115/48 (70) 99 01/11/19 23:14 Room Air 01/11/19 20:22 64 109/50 01/11/19 20:00 97.7 73 18 128/56 (80) 99 01/11/19 16:00 98.6 64 18 109/50 (69) 100 01/11/19 12:00 97.0 68 18 137/61 (86) 98 Intake and Output 01/11/19 01/12/19 19:00 07:00 Intake Total 360 ml Output Total 450 ml Balance -90 ml Intake Oral 360 ml Output Urine Total 450 ml # Voids 3 Laboratory Tests Test 01/12/19 05:55 White Blood Count 5.8 K/UL (4.8-10.8) Red Blood Count 2.97 M/UL (4.70-6.10) L Hemoglobin 7.4 G/DL (14.2-18.0) L Hematocrit 22.9 % (42.0-52.0) L Mean Corpuscular Volume 77 FL (80-99) L Mean Corpuscular Hemoglobin 24.9 PG (27.0-31.0) L Mean Corpuscular Hemoglobin Concent 32.3 G/DL (32.0-36.0) Red Cell Distribution Width 22.3 % (11.6-14.8) H Platelet Count 113 K/UL (150-450) L Mean Platelet Volume 12.2 FL (6.5-10.1) H Neutrophils (%) (Auto) % (45.0-75.0) Lymphocytes (%) (Auto) % (20.0-45.0) Monocytes (%) (Auto) % (1.0-10.0) Eosinophils (%) (Auto) % (0.0-3.0) Basophils (%) (Auto) % (0.0-2.0) Neutrophils % (Manual) Pending Lymphocytes % (Manual) Pending Platelet Estimate Pending Platelet Morphology Pending Sodium Level 134 MMOL/L (136-145) L Potassium Level 3.6 MMOL/L (3.5-5.1) Chloride Level 97 MMOL/L (98-107) L Carbon Dioxide Level 29 MMOL/L (21-32) Anion Gap 8 mmol/L (5-15) Blood Urea Nitrogen 16 mg/dL (7-18) Creatinine 0.8 MG/DL (0.55-1.30) Estimat Glomerular Filtration Rate mL/min (>60) Glucose Level 87 MG/DL (74-106) Calcium Level 8.3 MG/DL (8.5-10.1) L Height (Feet): 5 Height (Inches): 5.00 Weight (Pounds): 142 General Appearance: WD/WN, no apparent distress, alert Cardiovascular: normal rate Respiratory/Chest: normal breath sounds, no respiratory distress Abdominal Exam: normal bowel sounds, non tender, soft Extremities: normal range of motion, non-tender Jason Gray NP Jan 12, 2019 10:35
[2019-01-12 12:00] VITALS: BP 145/65
--- NOTE | 2019-01-12 13:39 | Pulmonology Progress Note ---
Assessment/Plan Problems: (1) Myeloblastic leukemia (2) Severe thrombocytopenia (3) ACS (acute coronary syndrome) (4) Cardiomyopathy (5) HTN (hypertension) (6) Pacemaker (7) Hypothyroidism (8) CAD (coronary artery disease) Assessment/Plan no new complains doing better, on fentNAYL PACH, pain better controlled dc all oral analgesics and try Fentanyl Patch doing better early leukemia check electrolytes no malignancy in bone marrow symptomatic treatment pain better controlled waiting for Medical application dc planning Subjective Constitutional: Reports: no symptoms HEENT: Repors: no symptoms Respiratory: Reports: no symptoms Allergies: Coded Allergies: No Known Allergies (Verified , 09/12/10) Objective Last 24 Hour Vital Signs Date Time Temp Pulse Resp B/P (MAP) Pulse Ox O2 Delivery O2 Flow Rate FiO2 01/12/19 08:21 96 Nasal Cannula 2.0 01/12/19 08:20 Nasal Cannula 2.0 01/12/19 08:00 96.1 71 18 109/50 (69) 100 01/12/19 04:00 98.1 63 18 113/52 (72) 99 01/12/19 02:29 98.8 01/12/19 00:00 98.8 69 18 115/48 (70) 99 01/11/19 23:14 Room Air 01/11/19 20:22 64 109/50 01/11/19 20:00 97.7 73 18 128/56 (80) 99 01/11/19 16:00 98.6 64 18 109/50 (69) 100 Intake and Output 01/11/19 01/12/19 19:00 07:00 Intake Total 360 ml Output Total 450 ml Balance -90 ml Intake Oral 360 ml Output Urine Total 450 ml # Voids 3 Objective General Appearance: cachetic Lines, tubes and drains: peripheral HEENT: normocephalic, atraumatic Neck: non-tender, normal alignment Respiratory/Chest: chest wall non-tender, lungs clear Breasts: no masses Cardiovascular/Chest: normal peripheral pulses, normal rate Abdomen: normal bowel sounds, non tender Genitourinary/Rectal: normal genital exam Extremities: normal range of motion Skin Exam: normal pigmentation 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 Laboratory Tests 01/12/19 05:55: White Blood Count 5.8, Red Blood Count 2.97L, Hemoglobin 7.4L, Hematocrit 22.9L , Mean Corpuscular Volume 77L, Mean Corpuscular Hemoglobin 24.9L, Mean Corpuscular Hemoglobin Concent 32.3, Red Cell Distribution Width 22.3H, Platelet Count 113L, Mean Platelet Volume 12.2H, Neutrophils (%) (Auto) , Lymphocytes (%) (Auto) , Monocytes (%) (Auto) , Eosinophils (%) (Auto) , Basophils (%) (Auto) , Differential Total Cells Counted 100, Neutrophils % ( Manual) 23L, Lymphocytes % (Manual) 49H, Monocytes % (Manual) 24H, Eosinophils % (Manual) 4H, Basophils % (Manual) 0, Band Neutrophils 0, Platelet Estimate DecreasedL, Platelet Morphology Normal, Hypochromasia 3+, Anisocytosis 3+, Microcytosis 1+, Spherocytes 2+, Sodium Level 134L, Potassium Level 3.6, Chloride Level 97L, Carbon Dioxide Level 29, Anion Gap 8, Blood Urea Nitrogen 16 , Creatinine 0.8, Estimat Glomerular Filtration Rate , Glucose Level 87, Calcium Level 8.3L Current Medications Medications (Trade) Dose Ordered Sig/Scout Route PRN Reason Start Time Stop Time Status Last Admin Dose Admin Atorvastatin Calcium (Lipitor) 40 mg QHS ORAL 12/19/18 21:00 01/18/19 20:59 01/11/19 20:22 Carvedilol (Coreg) 12.5 mg EVERY 12 HOURS ORAL 01/12/19 21:00 02/11/19 20:59 Docusate Sodium (Colace) 100 mg Q12H PRN ORAL Constipation 12/18/18 21:45 01/17/19 21:29 12/29/18 07:58 Fentanyl (Duragesic) 1 patch Q72H TDERMAL 01/10/19 18:00 01/17/19 17:59 01/10/19 18:54 Miscellaneous Medication (fentaNYL Destruction) 1 ea Q72H MISC 01/01/19 17:59 01/31/19 17:58 01/10/19 17:59 Morphine Sulfate (Morphine Sulfate) 2 mg Q4H PRN IM For Pain 01/05/19 15:15 01/12/19 15:14 01/12/19 09:17 Nitroglycerin (Ntg) 0.4 mg Q5M PRN SL Prn Chest Pain 12/25/18 16:55 01/24/19 16:54 01/09/19 04:00 Polyethylene Glycol (Miralax) 17 gm DAILYPRN PRN ORAL Constipation 12/28/18 19:00 01/27/19 18:59 12/29/18 07:58 Chepe Luong MD Jan 12, 2019 13:39
--- NOTE | 2019-01-12 15:21 | Cardiology Progress Note ---
Assessment/Plan Status: stable Assessment/Plan Assessment/Plan 1. CP and Hx of CABG. Likely due to severe anemia. Ruled out ND. 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 Off Aspirin and Plavix for thrombocytopenia 2. Cardiomyopathy. EF now 55%. On Coreg 12.5 mg bid and Lasix 20 daily [address] [facility] atriobiventricular defibrillator. Interrogated and showed Nl Fx 4. Severe anemia, S/P multiple PRBC and platelet transfusions . 5. Pancytopenia. Off Aspirin and PLavix S/P platelet and PRBC transfusion. BM biopsy 11/29/[address] Stock 6. Placement Subjective Cardiovascular: Reports: no symptoms Respiratory: Reports: no symptoms Gastrointestinal/Abdominal: Reports: no symptoms Genitourinary: Reports: no symptoms Subjective Patient alert x2, on room air, no sign of distress and shortness of breath; no sign of chest pain, pain controlled, awaiting dispo Coverage for [employer] Objective Last 24 Hour Vital Signs Date Time Temp Pulse Resp B/P (MAP) Pulse Ox O2 Delivery O2 Flow Rate FiO2 01/12/19 08:21 96 Nasal Cannula 2.0 01/12/19 08:20 Nasal Cannula 2.0 01/12/19 08:00 96.1 71 18 109/50 (69) 100 01/12/19 04:00 98.1 63 18 113/52 (72) 99 01/12/19 02:29 98.8 01/12/19 00:00 98.8 69 18 115/48 (70) 99 01/11/19 23:14 Room Air 01/11/19 20:22 64 109/50 01/11/19 20:00 97.7 73 18 128/56 (80) 99 01/11/19 16:00 98.6 64 18 109/50 (69) 100 General Appearance: no apparent distress, alert EENT: PERRL/EOMI, normal ENT inspection, TMs normal Neck: non-tender, normal alignment, supple, normal inspection, no JVD Rhythm: NSR Cardiovascular: normal peripheral pulses, normal rate Respiratory/Chest: chest wall non-tender, lungs clear, normal breath sounds Abdomen: normal bowel sounds, non tender Extremities: normal range of motion, non-tender, normal inspection, no calf tenderness 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, no motor/sensory deficits Intake and Output 01/11/19 01/12/19 19:00 07:00 Intake Total 360 ml Output Total 450 ml Balance -90 ml Intake Oral 360 ml Output Urine Total 450 ml # Voids 3 Laboratory Tests Test 01/12/19 05:55 White Blood Count 5.8 K/UL (4.8-10.8) Red Blood Count 2.97 M/UL (4.70-6.10) L Hemoglobin 7.4 G/DL (14.2-18.0) L Hematocrit 22.9 % (42.0-52.0) L Mean Corpuscular Volume 77 FL (80-99) L Mean Corpuscular Hemoglobin 24.9 PG (27.0-31.0) L Mean Corpuscular Hemoglobin Concent 32.3 G/DL (32.0-36.0) Red Cell Distribution Width 22.3 % (11.6-14.8) H Platelet Count 113 K/UL (150-450) L Mean Platelet Volume 12.2 FL (6.5-10.1) H Neutrophils (%) (Auto) % (45.0-75.0) Lymphocytes (%) (Auto) % (20.0-45.0) Monocytes (%) (Auto) % (1.0-10.0) Eosinophils (%) (Auto) % (0.0-3.0) Basophils (%) (Auto) % (0.0-2.0) Differential Total Cells Counted 100 Neutrophils % (Manual) 23 % (45-75) L Lymphocytes % (Manual) 49 % (20-45) H Monocytes % (Manual) 24 % (1-10) H Eosinophils % (Manual) 4 % (0-3) H Basophils % (Manual) 0 % (0-2) Band Neutrophils 0 % (0-8) Platelet Estimate Decreased L Platelet Morphology Normal Hypochromasia 3+ Anisocytosis 3+ Microcytosis 1+ Spherocytes 2+ Sodium Level 134 MMOL/L (136-145) L Potassium Level 3.6 MMOL/L (3.5-5.1) Chloride Level 97 MMOL/L (98-107) L Carbon Dioxide Level 29 MMOL/L (21-32) Anion Gap 8 mmol/L (5-15) Blood Urea Nitrogen 16 mg/dL (7-18) Creatinine 0.8 MG/DL (0.55-1.30) Estimat Glomerular Filtration Rate mL/min (>60) Glucose Level 87 MG/DL (74-106) Calcium Level 8.3 MG/DL (8.5-10.1) L Yair Damon MD Jan 12, 2019 15:21
[2019-01-12 16:00] VITALS: BP 107/48
--- NOTE | 2019-01-12 17:45 | General Progress Note ---
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 --> Hep panel and HIV negative, hep C++ --> US abd to evaluate for cirrhosis and hsm reviewed --> Peripheral smear ordered to evaluate for blasts /schistocytes is wnl --> abx and other meds have been reviewed --> ok for ppx if plt >50k w/ either heparin or lovenox --> Transfuse if Plt < 20k and fever, or if Plt < 10k without fever --->Plt trend 70-->65-->44-->86-->122-->88-->100k-->140k-->154k-->78k-->72k--> 110k # Reticulocytosis with elevated bilirubin that is indirect --> reviewed direct and indirect bilis again, trend could have liver disease --> liver US shows no significant cirrhosis --> evaluate as needed with gi team, recs apprecaited #. Chest pain, possible acute coronary syndrome. --> cards recs appreciated as well as pulm --> stress test prn # Hypertension. sbp goal <140 -- > as per cards recs # Dyslipidemia. on statin prn # Chf # Coronary artery disease. # Sick sinus syndrome, status pacemaker. # Acute E. coli UTI s/p abx # Hep C+++ needs op management # Chronic pain is on fentanyl patch prn The timing of this note does not necessarily reflect the time of the patient was seen. Greatly appreciate consultation! Subjective Constitutional: Denies: no symptoms, chills, diaphoresis, fever, malaise, weakness, other HEENT: Denies: no symptoms, eye pain, blurred vision, tearing, double vision, ear pain, ear discharge, nose pain, nose congestion, throat pain, throat swelling, mouth pain, mouth swelling, other Cardiovascular: Denies: no symptoms, chest pain, edema, irregular heart rate, lightheadedness, palpitations, syncope, other Genitourinary: Denies: no symptoms, burning, discharge, frequency, flank pain, hematuria, incontinence, pain, urgency, other Neurologic/Psychiatric: Denies: no symptoms, anxiety, depressed, emotional problems, headache, numbness, paresthesia, pre-existing deficit, seizure, tingling, tremors, weakness, other Endocrine: Denies: no symptoms, excessive sweating, flushing, intolerance to cold, intolerance to heat, increased hunger, increased thirst, increased urine, unexplained weight gain, unexplained weight loss, other Hematologic/Lymphatic: Denies: no symptoms, anemia, easy bleeding, easy bruising, other Allergies: Coded Allergies: No Known Allergies (Verified , 09/12/10) Subjective 11/27: no events to report, no f/c 11/28: seen by bedside, plt 65, plan for EGD and bone marrow biopsy tomorrow 11/29: BM biopsy today, no acute distress. 11/30: Had BM biopsy yesterday and now in reverse isolation. hgb 7.5, will transfuse as needed. 12/01: seen by bedside, plt remains low, awaiting bone marrow biopsy results. 12/02: No acute distress, no chest pain, no shortness of breath, wbc 2.7, hgb 7.3 , plt 50, will transfuse as needed. S/P BM biopsy 11/29/18, Results pending 12/04: bone marrow biopsy completed, and show myeloblasts, c/w mds/leukemia, requires close surveillance 12/05: hgb 6.9, Had blood transfusion today, plt up trending, no events 12/06: Seen by bedside, overall improved, still has complaint of chest pain, plt trending up 12/07: Given 1 unit prbc, continues to c/o chest pain, seen by cards 12/08: seen by bedside, complains of pain, plt 106, no events 12/09: awake, comfortable, plt trending down at 69, no events 12/11: awake, comfortable, on NC, plt remains low at 70. 12/12: awake, comfortable, plt 65, no events 12/13: seen by bedside, awake , comfortable, pending labs. 12/14: awake, comfortable, hgb 7.9, monitor, will transfuse as needed, plt trending down at 44, 12/15: seen by bedside, awake, comfortable, hgb 7, will transfuse as needed, plt 82. 12/16: awake comfortable, no events, hgb trending up 12/18: seen by bedside, alert, oriented, no acute distress 12/19: no events noted, no fevers or chills, cbc has been reviewed, had blasts on smear this wknd 12/20: seen by bedside, awake, comfortable, hgb 7.4, will transfuse as needed. 12/21: No overnight events reported, comfortable, hgb 8.1 12/22: no events to report, remains nausous, the platelet count has improved on its own 12/23: awaiting placement to snf at this time, following with cards, pulm 12/24: on 2l nc, received morphine today by rn, complaining of pain 12/25: no events today, no f/c, labs reviewed 12/26: no events report, will get one unit prbc today, has been ordered 12/27: hgb stable/improved but is after transfusion, no events otherwise no fevers 12/28: no events, feeling overall better 12/29: this am comfortable and sleeping, no events, cbc reviewed, no issues noted 12/30: no events to report, no night sweats, anemia panel reviewed 01/02: awake, alert, bed in lowest position 01/03: dc to [facility] once bed opens up, no events o/n 01/04: comfortable in bed, counts are lower, monitor for reverse isolation as needed 01/05: labs pending, no issues, besides intermittent cp, seen by cards, morphine given by rn 01/06: labs have been reviewed and no f/c noted, eating 01/08: no events to report, cbc has been reviewed, no bleeding 01/09: is on fentanyl patch, no major bleeding, otherwise asymptomatic, comfortable 01/10: no fevers or chills, no weigt loss, comfortable today 01/11: no events noted, on fentanyl patch at this time 01/12: no events, comfortable, off asa and palvix Objective Last 24 Hour Vital Signs Date Time Temp Pulse Resp B/P (MAP) Pulse Ox O2 Delivery O2 Flow Rate FiO2 01/12/19 08:21 96 Nasal Cannula 2.0 01/12/19 08:20 Nasal Cannula 2.0 01/12/19 08:00 96.1 71 18 109/50 (69) 100 01/12/19 04:00 98.1 63 18 113/52 (72) 99 01/12/19 02:29 98.8 01/12/19 00:00 98.8 69 18 115/48 (70) 99 01/11/19 23:14 Room Air 01/11/19 20:22 64 109/50 01/11/19 20:00 97.7 73 18 128/56 (80) 99 Intake and Output 01/11/19 01/12/19 19:00 07:00 Intake Total 360 ml Output Total 450 ml Balance -90 ml Intake Oral 360 ml Output Urine Total 450 ml # Voids 3 Laboratory Tests 01/12/19 05:55: White Blood Count 5.8, Red Blood Count 2.97L, Hemoglobin 7.4L, Hematocrit 22.9L , Mean Corpuscular Volume 77L, Mean Corpuscular Hemoglobin 24.9L, Mean Corpuscular Hemoglobin Concent 32.3, Red Cell Distribution Width 22.3H, Platelet Count 113L, Mean Platelet Volume 12.2H, Neutrophils (%) (Auto) , Lymphocytes (%) (Auto) , Monocytes (%) (Auto) , Eosinophils (%) (Auto) , Basophils (%) (Auto) , Differential Total Cells Counted 100, Neutrophils % ( Manual) 23L, Lymphocytes % (Manual) 49H, Monocytes % (Manual) 24H, Eosinophils % (Manual) 4H, Basophils % (Manual) 0, Band Neutrophils 0, Platelet Estimate DecreasedL, Platelet Morphology Normal, Hypochromasia 3+, Anisocytosis 3+, Microcytosis 1+, Spherocytes 2+, Sodium Level 134L, Potassium Level 3.6, Chloride Level 97L, Carbon Dioxide Level 29, Anion Gap 8, Blood Urea Nitrogen 16 , Creatinine 0.8, Estimat Glomerular Filtration Rate , Glucose Level 87, Calcium Level 8.3L Height (Feet): 5 Height (Inches): 5.00 Weight (Pounds): 142 Objective General: well appearing, nad, alert Head: normocephalic, atraumatic Eyes: b/l eye PERRL, bilateral eye EOMI ENT: hearing grossly normal, normal pharynx Neck: full range of motion, supple, no meningismus Respiratory: chest non-tender, lungs clear, normal BSs, NC++ CV: regular rate, rhythm, no murmur GI: normal bowel sounds, non tender, no mass MSK: back normal, normal range of motion Psychiatric: mood/affect normal Skin: warm/dry Jose Alberto España MD Jan 12, 2019 17:45
--- NOTE | 2019-01-12 18:37 | Internal Med Progress Note ---
Subjective Date of Service: Jan 12, 2019 Physician Name Nikhil West Attending Physician Abdias Hunter MD Current Medications Medications (Trade) Dose Ordered Sig/Scout Route PRN Reason Start Time Stop Time Status Last Admin Dose Admin Atorvastatin Calcium (Lipitor) 40 mg QHS ORAL 12/19/18 21:00 01/18/19 20:59 01/11/19 20:22 Carvedilol (Coreg) 12.5 mg EVERY 12 HOURS ORAL 01/12/19 21:00 02/11/19 20:59 Docusate Sodium (Colace) 100 mg Q12H PRN ORAL Constipation 12/18/18 21:45 01/17/19 21:29 12/29/18 07:58 Fentanyl (Duragesic) 1 patch Q72H TDERMAL 01/10/19 18:00 01/17/19 17:59 01/10/19 18:54 Miscellaneous Medication (fentaNYL Destruction) 1 ea Q72H MISC 01/01/19 17:59 01/31/19 17:58 01/10/19 17:59 Nitroglycerin (Ntg) 0.4 mg Q5M PRN SL Prn Chest Pain 12/25/18 16:55 01/24/19 16:54 01/09/19 04:00 Polyethylene Glycol (Miralax) 17 gm DAILYPRN PRN ORAL Constipation 12/28/18 19:00 01/27/19 18:59 12/29/18 07:58 Allergies: Coded Allergies: No Known Allergies (Verified , 09/12/10) ROS Limited/Unobtainable: No Constitutional: Reports: no symptoms HEENT: Reports: no symptoms Cardiovascular: Reports: no symptoms Respiratory: Reports: no symptoms Gastrointestinal/Abdominal: Reports: no symptoms Genitourinary: Reports: no symptoms Neurologic/Psychiatric: Reports: no symptoms Subjective 78 YO M admitted with chest pain. Now pancytopenia and UTI. Cover for Int Med- Dr Hunter. Objective Last Vital Signs Date Time Temp Pulse Resp B/P (MAP) Pulse Ox O2 Delivery O2 Flow Rate FiO2 01/12/19 16:00 98.5 64 18 107/48 (67) 100 01/12/19 09:00 Room Air 01/12/19 08:21 2.0 Laboratory Tests Test 01/12/19 05:55 White Blood Count 5.8 K/UL (4.8-10.8) Red Blood Count 2.97 M/UL (4.70-6.10) L Hemoglobin 7.4 G/DL (14.2-18.0) L Hematocrit 22.9 % (42.0-52.0) L Mean Corpuscular Volume 77 FL (80-99) L Mean Corpuscular Hemoglobin 24.9 PG (27.0-31.0) L Mean Corpuscular Hemoglobin Concent 32.3 G/DL (32.0-36.0) Red Cell Distribution Width 22.3 % (11.6-14.8) H Platelet Count 113 K/UL (150-450) L Mean Platelet Volume 12.2 FL (6.5-10.1) H Neutrophils (%) (Auto) % (45.0-75.0) Lymphocytes (%) (Auto) % (20.0-45.0) Monocytes (%) (Auto) % (1.0-10.0) Eosinophils (%) (Auto) % (0.0-3.0) Basophils (%) (Auto) % (0.0-2.0) Differential Total Cells Counted 100 Neutrophils % (Manual) 23 % (45-75) L Lymphocytes % (Manual) 49 % (20-45) H Monocytes % (Manual) 24 % (1-10) H Eosinophils % (Manual) 4 % (0-3) H Basophils % (Manual) 0 % (0-2) Band Neutrophils 0 % (0-8) Platelet Estimate Decreased L Platelet Morphology Normal Hypochromasia 3+ Anisocytosis 3+ Microcytosis 1+ Spherocytes 2+ Sodium Level 134 MMOL/L (136-145) L Potassium Level 3.6 MMOL/L (3.5-5.1) Chloride Level 97 MMOL/L (98-107) L Carbon Dioxide Level 29 MMOL/L (21-32) Anion Gap 8 mmol/L (5-15) Blood Urea Nitrogen 16 mg/dL (7-18) Creatinine 0.8 MG/DL (0.55-1.30) Estimat Glomerular Filtration Rate mL/min (>60) Glucose Level 87 MG/DL (74-106) Calcium Level 8.3 MG/DL (8.5-10.1) L Intake and Output 01/11/19 01/12/19 19:00 07:00 Intake Total 360 ml Output Total 450 ml Balance -90 ml Intake Oral 360 ml Output Urine Total 450 ml # Voids 3 Objective PHYSICAL EXAMINATION: GENERAL: The patient awake, responsive, no acute distress. HEAD AND NECK: Pupils are equal and reactive to light. Extraocular movements are intact. Neck was supple. No JVD LUNGS: Good air entry. No wheeze or rales. HEART: S1, S2. Distant heart sounds. No murmur or gallops. Pacemaker in left-sided chest wall. ABDOMEN: Soft, nondistended, nontender. EXTREMITIES: No cyanosis, clubbing, edema. Varicose veins, bilateral lower extremities. NEUROLOGIC: Cranial nerves II through XII grossly intact. Motor is 5/5 in all extremities. Gait is intact. RECTAL: Refused and deferred. GENITOURINARY: Refused and deferred. PSYCHIATRIC: Mood and affect is depressed. Assessment/Plan Assessment/Plan ASSESSMENT: 1. Chest pain, possible acute coronary syndrome. 2. Hypertension. 3. Dyslipidemia. 4. Congestive heart failure. 5. Coronary artery disease. 6. Sick sinus syndrome, status pacemaker. 7. UTI. 8. Pancytopenia; S/P transfusion 6 units PRBC total-Severe anemia, Thrombocytopenia and leukopenia-?leukemia? see onc note. PLAN: Admit the patient to telemetry. Discussed case with Dr. Gee from Cardiology Electrophysiology. Await cardiac nuclear stress test-outpatient Dr. Luong, Pulmonary Critical Care. Urine cult=E. Coli. S/P Rocephin. DVT prophylaxis, heparin subcutaneous. Code status, Full Code. The patient is expected to be in the hospital greater than 2 days Discharge paln: [facility] See Hematology consult-?acute myelocytic leukemia? Discharge to [facility]-see social work note Nikhil West MD Jan 12, 2019 18:37
[2019-01-12 20:00] VITALS: BP 139/65
[2019-01-12] MEDS: Atorvastatin 20mg tab ORAL SCH (20:39)
[2019-01-12] MEDS: Carvedilol 12.5mg tab ORAL SCH (20:39)
[2019-01-13] VITALS: BP 116/50
[2019-01-13] MEDS: Morphine Sulfate 2mg/ml Inj(IV/IM USE ONLY) IM PRN ×5 (00:53→20:35)
[2019-01-13 04:00] VITALS: BP 120/53
[2019-01-13 08:00] VITALS: BP 116/68
[2019-01-13] MEDS: Carvedilol 12.5mg tab ORAL SCH ×2 (08:44→20:34)
[2019-01-13] MEDS: Miralax 17gm pkt ORAL PRN (08:46)
--- NOTE | 2019-01-13 10:51 | GI Progress Note ---
Assessment/Plan Problems: (1) History of CVA (cerebrovascular accident) ICD Codes: Z86.73 - Personal history of transient ischemic attack (TIA), and cerebral infarction without residual deficits SNOMED: 561352424 (2) Severe anemia ICD Codes: D64.9 - Anemia, unspecified SNOMED: 698013174 (3) Abdominal pain ICD Codes: R10.9 - Unspecified abdominal pain SNOMED: 32234417 (4) GERD (gastroesophageal reflux disease) ICD Codes: K21.9 - Gastro-esophageal reflux disease without esophagitis SNOMED: 931920561 Status: stable Status Narrative Discussed with Dr. Mcguire. Assessment/Plan SUMMARY OF FINDINGS: 1. Gastritis. 2. A 6 cm hiatal hernia. pending placement RECOMMENDATIONS: Follow up biopsy results and treat accordingly. >> Mild chronic gastritis. Negative for H. pylori negative negative for dysplasia or malignancy. BM biopsy>> leukemia>> fu oncology monitor H&H, prn transfusions. bowel regime ppi, H2B qhs Zofran as needed fu labs Outpatient hep C treatment dc planning The patient was seen and examined at bedside and all new and available data was reviewed in the patients chart. I agree with the above findings, impression and plan. (Patient seen earlier today. Signature stamp does not reflect patient encounter time.). - Richie Mcguire MD Subjective Subjective Denies any abdominal pain Denies any constipation or diarrhea Tolerating diet Denies any nausea vomiting Objective Last 24 Hour Vital Signs Date Time Temp Pulse Resp B/P (MAP) Pulse Ox O2 Delivery O2 Flow Rate FiO2 01/13/19 09:06 Room Air 01/13/19 08:44 69 116/68 01/13/19 08:00 98.2 69 19 116/68 (84) 100 01/13/19 04:00 98.4 65 18 120/53 (75) 100 01/13/19 00:00 98.6 67 18 116/50 (72) 100 01/12/19 22:07 Nasal Cannula 2.0 28 01/12/19 22:06 97 Nasal Cannula 2.0 28 01/12/19 21:00 Room Air 01/12/19 20:39 71 139/65 01/12/19 20:00 98.6 71 18 139/65 (89) 100 01/12/19 16:00 98.5 64 18 107/48 (67) 100 01/12/19 12:00 98.7 71 18 145/65 (91) 100 Intake and Output 01/12/19 01/13/19 19:00 07:00 Intake Total 800 ml 24 ml Output Total 450 ml Balance 350 ml 24 ml Intake Oral 800 ml Other 24 ml Output Urine Total 450 ml # Voids 4 1 # Bowel Movements 1 Height (Feet): 5 Height (Inches): 5.00 Weight (Pounds): 147 General Appearance: WD/WN, no apparent distress, alert Cardiovascular: normal rate Respiratory/Chest: normal breath sounds, no respiratory distress Abdominal Exam: normal bowel sounds, non tender, soft Extremities: normal range of motion, non-tender Jason Gray NP Jan 13, 2019 10:51
[2019-01-13 12:00] VITALS: BP 121/62
--- NOTE | 2019-01-13 13:05 | Cardiology Progress Note ---
Assessment/Plan Status: stable Assessment/Plan Assessment/Plan 1. CP and Hx of CABG. Likely due to severe anemia. Ruled out [place]. 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 Off Aspirin and Plavix for thrombocytopenia 2. Cardiomyopathy. EF now 55%. On Coreg 12.5 mg bid and Lasix 20 daily [address] [facility] [place] atriobiventricular defibrillator. Interrogated and showed Nl Fx 4. Severe anemia, S/P multiple PRBC and platelet transfusions . 5. Pancytopenia. Off Aspirin and PLavix S/P platelet and PRBC transfusion. BM biopsy 11/29/[address] Stock 6. Placement Subjective Cardiovascular: Reports: no symptoms Respiratory: Reports: no symptoms Gastrointestinal/Abdominal: Reports: no symptoms Genitourinary: Reports: no symptoms Subjective Patient alert x2, on room air, no sign of distress and shortness of breath; no sign of chest pain, pain controlled, awaiting dispo Coverage for [place] Objective Last 24 Hour Vital Signs Date Time Temp Pulse Resp B/P (MAP) Pulse Ox O2 Delivery O2 Flow Rate FiO2 01/13/19 12:00 98.2 01/13/19 09:06 Room Air 01/13/19 08:44 69 116/68 01/13/19 08:00 98.2 69 19 116/68 (84) 100 01/13/19 04:00 98.4 65 18 120/53 (75) 100 01/13/19 00:00 98.6 67 18 116/50 (72) 100 01/12/19 22:07 Nasal Cannula 2.0 28 01/12/19 22:06 97 Nasal Cannula 2.0 28 01/12/19 21:00 Room Air 01/12/19 20:39 71 139/65 01/12/19 20:00 98.6 71 18 139/65 (89) 100 01/12/19 16:00 98.5 64 18 107/48 (67) 100 General Appearance: no apparent distress, alert EENT: PERRL/EOMI, normal ENT inspection, TMs normal, pharynx normal Neck: non-tender, normal alignment, supple, normal inspection, no JVD Rhythm: NSR Cardiovascular: normal peripheral pulses, regular rhythm Respiratory/Chest: chest wall non-tender, lungs clear Abdomen: normal bowel sounds, non tender, soft Extremities: normal range of motion, non-tender 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
--- NOTE | 2019-01-13 14:07 | Pulmonology Progress Note ---
Assessment/Plan Problems: (1) Myeloblastic leukemia (2) Severe thrombocytopenia (3) ACS (acute coronary syndrome) (4) Cardiomyopathy (5) HTN (hypertension) (6) Pacemaker (7) Hypothyroidism (8) CAD (coronary artery disease) Assessment/Plan no new complains doing better, on fentNAYL PACH, pain better controlled dc all oral analgesics and try Fentanyl Patch doing better early leukemia check electrolytes no malignancy in bone marrow symptomatic treatment pain better controlled waiting for Medical application dc planning Subjective ROS Limited/Unobtainable: No Constitutional: Reports: no symptoms HEENT: Repors: no symptoms Respiratory: Reports: no symptoms Allergies: Coded Allergies: No Known Allergies (Verified , 09/12/10) Objective Last 24 Hour Vital Signs Date Time Temp Pulse Resp B/P (MAP) Pulse Ox O2 Delivery O2 Flow Rate FiO2 01/13/19 12:00 98.2 01/13/19 12:00 98.4 66 19 121/62 (81) 100 01/13/19 09:06 Room Air 01/13/19 08:44 69 116/68 01/13/19 08:00 98.2 69 19 116/68 (84) 100 01/13/19 04:00 98.4 65 18 120/53 (75) 100 01/13/19 00:00 98.6 67 18 116/50 (72) 100 01/12/19 22:07 Nasal Cannula 2.0 28 01/12/19 22:06 97 Nasal Cannula 2.0 28 01/12/19 21:00 Room Air 01/12/19 20:39 71 139/65 01/12/19 20:00 98.6 71 18 139/65 (89) 100 01/12/19 16:00 98.5 64 18 107/48 (67) 100 Intake and Output 01/12/19 01/13/19 19:00 07:00 Intake Total 800 ml 24 ml Output Total 450 ml Balance 350 ml 24 ml Intake Oral 800 ml Other 24 ml Output Urine Total 450 ml # Voids 4 1 # Bowel Movements 1 Objective General Appearance: cachetic Lines, tubes and drains: peripheral HEENT: normocephalic, atraumatic Neck: non-tender, normal alignment Respiratory/Chest: chest wall non-tender, lungs clear Breasts: no masses Cardiovascular/Chest: normal peripheral pulses, normal rate Abdomen: normal bowel sounds, non tender Genitourinary/Rectal: normal genital exam Extremities: normal range of motion Skin Exam: normal pigmentation 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 Current Medications Medications (Trade) Dose Ordered Sig/Scout Route PRN Reason Start Time Stop Time Status Last Admin Dose Admin Atorvastatin Calcium (Lipitor) 40 mg QHS ORAL 12/19/18 21:00 01/18/19 20:59 01/12/19 20:39 Carvedilol (Coreg) 12.5 mg EVERY 12 HOURS ORAL 01/12/19 21:00 02/11/19 20:59 01/12/19 20:39 Docusate Sodium (Colace) 100 mg Q12H PRN ORAL Constipation 12/18/18 21:45 01/17/19 21:29 12/29/18 07:58 Fentanyl (Duragesic) 1 patch Q72H TDERMAL 01/10/19 18:00 01/17/19 17:59 01/10/19 18:54 Furosemide (Lasix) 20 mg DAILY ORAL 01/13/19 09:00 02/12/19 08:59 01/13/19 08:46 Miscellaneous Medication (fentaNYL Destruction) 1 ea Q72H MISC 01/01/19 17:59 01/31/19 17:58 01/10/19 17:59 Morphine Sulfate (Morphine Sulfate) 2 mg Q4H PRN IM For Pain 01/12/19 20:30 01/19/19 20:29 01/13/19 11:30 Nitroglycerin (Ntg) 0.4 mg Q5M PRN SL Prn Chest Pain 12/25/18 16:55 01/24/19 16:54 01/09/19 04:00 Polyethylene Glycol (Miralax) 17 gm DAILYPRN PRN ORAL Constipation 12/28/18 19:00 01/27/19 18:59 01/13/19 08:46 Chepe Luong MD Jan 13, 2019 14:07
--- NOTE | 2019-01-13 15:15 | General Progress Note ---
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 --> Hep panel and HIV negative, hep C++ --> US abd to evaluate for cirrhosis and hsm reviewed --> Peripheral smear ordered to evaluate for blasts /schistocytes is wnl --> abx and other meds have been reviewed --> ok for ppx if plt >50k w/ either heparin or lovenox --> Transfuse if Plt < 20k and fever, or if Plt < 10k without fever --->Plt trend 70-->65-->44-->86-->122-->88-->100k-->140k-->154k-->78k-->72k--> 110k # Reticulocytosis with elevated bilirubin that is indirect --> reviewed direct and indirect bilis again, trend could have liver disease --> liver US shows no significant cirrhosis --> evaluate as needed with gi team, recs apprecaited #. Chest pain, possible acute coronary syndrome. --> cards recs appreciated as well as pulm --> stress test prn # Hypertension. sbp goal <140 -- > as per cards recs # Dyslipidemia. on statin prn # Chf # Coronary artery disease. # Sick sinus syndrome, status pacemaker. # Acute E. coli UTI s/p abx # Hep C+++ needs op management # Chronic pain is on fentanyl patch prn The timing of this note does not necessarily reflect the time of the patient was seen. Greatly appreciate consultation! Subjective Constitutional: Denies: no symptoms, chills, diaphoresis, fever, malaise, weakness, other HEENT: Denies: no symptoms, eye pain, blurred vision, tearing, double vision, ear pain, ear discharge, nose pain, nose congestion, throat pain, throat swelling, mouth pain, mouth swelling, other Cardiovascular: Denies: no symptoms, chest pain, edema, irregular heart rate, lightheadedness, palpitations, syncope, other Gastrointestinal/Abdominal: Denies: no symptoms, abdomen distended, abdominal pain, black stools, tarry stools, blood in stool, constipated, diarrhea, difficulty swallowing, nausea, poor appetite, poor fluid intake, rectal bleeding , vomiting, other Genitourinary: Denies: no symptoms, burning, discharge, frequency, flank pain, hematuria, incontinence, pain, urgency, other Endocrine: Denies: no symptoms, excessive sweating, flushing, intolerance to cold, intolerance to heat, increased hunger, increased thirst, increased urine, unexplained weight gain, unexplained weight loss, other Allergies: Coded Allergies: No Known Allergies (Verified , 09/12/10) Subjective 11/27: no events to report, no f/c 11/28: seen by bedside, plt 65, plan for EGD and bone marrow biopsy tomorrow 11/29: BM biopsy today, no acute distress. 11/30: Had BM biopsy yesterday and now in reverse isolation. hgb 7.5, will transfuse as needed. 12/01: seen by bedside, plt remains low, awaiting bone marrow biopsy results. 12/02: No acute distress, no chest pain, no shortness of breath, wbc 2.7, hgb 7.3 , plt 50, will transfuse as needed. S/P BM biopsy 11/29/18, Results pending 12/04: bone marrow biopsy completed, and show myeloblasts, c/w mds/leukemia, requires close surveillance 12/05: hgb 6.9, Had blood transfusion today, plt up trending, no events 12/06: Seen by bedside, overall improved, still has complaint of chest pain, plt trending up 12/07: Given 1 unit prbc, continues to c/o chest pain, seen by cards 12/08: seen by bedside, complains of pain, plt 106, no events 12/09: awake, comfortable, plt trending down at 69, no events 12/11: awake, comfortable, on NC, plt remains low at 70. 12/12: awake, comfortable, plt 65, no events 12/13: seen by bedside, awake , comfortable, pending labs. 12/14: awake, comfortable, hgb 7.9, monitor, will transfuse as needed, plt trending down at 44, 12/15: seen by bedside, awake, comfortable, hgb 7, will transfuse as needed, plt 82. 12/16: awake comfortable, no events, hgb trending up 12/18: seen by bedside, alert, oriented, no acute distress 12/19: no events noted, no fevers or chills, cbc has been reviewed, had blasts on smear this wknd 12/20: seen by bedside, awake, comfortable, hgb 7.4, will transfuse as needed. 12/21: No overnight events reported, comfortable, hgb 8.1 12/22: no events to report, remains nausous, the platelet count has improved on its own 12/23: awaiting placement to snf at this time, following with cards, pulm 12/24: on 2l nc, received morphine today by rn, complaining of pain 12/25: no events today, no f/c, labs reviewed 12/26: no events report, will get one unit prbc today, has been ordered 12/27: hgb stable/improved but is after transfusion, no events otherwise no fevers 12/28: no events, feeling overall better 12/29: this am comfortable and sleeping, no events, cbc reviewed, no issues noted 12/30: no events to report, no night sweats, anemia panel reviewed 01/02: awake, alert, bed in lowest position 01/03: dc to [facility] once bed opens up, no events o/n 01/04: comfortable in bed, counts are lower, monitor for reverse isolation as needed 01/05: labs pending, no issues, besides intermittent cp, seen by cards, morphine given by rn 01/06: labs have been reviewed and no f/c noted, eating 01/08: no events to report, cbc has been reviewed, no bleeding 01/09: is on fentanyl patch, no major bleeding, otherwise asymptomatic, comfortable 01/10: no fevers or chills, no weigt loss, comfortable today 01/11: no events noted, on fentanyl patch at this time 01/12: no events, comfortable, off asa and palvix 01/13: dc planning started, no fevers or chills reported Objective Last 24 Hour Vital Signs Date Time Temp Pulse Resp B/P (MAP) Pulse Ox O2 Delivery O2 Flow Rate FiO2 01/13/19 12:00 98.2 01/13/19 12:00 98.4 66 19 121/62 (81) 100 01/13/19 09:06 Room Air 01/13/19 08:44 69 116/68 01/13/19 08:00 98.2 69 19 116/68 (84) 100 01/13/19 04:00 98.4 65 18 120/53 (75) 100 01/13/19 00:00 98.6 67 18 116/50 (72) 100 01/12/19 22:07 Nasal Cannula 2.0 28 01/12/19 22:06 97 Nasal Cannula 2.0 28 01/12/19 21:00 Room Air 01/12/19 20:39 71 139/65 01/12/19 20:00 98.6 71 18 139/65 (89) 100 01/12/19 16:00 98.5 64 18 107/48 (67) 100 Intake and Output 01/12/19 01/13/19 19:00 07:00 Intake Total 800 ml 24 ml Output Total 450 ml Balance 350 ml 24 ml Intake Oral 800 ml Other 24 ml Output Urine Total 450 ml # Voids 4 1 # Bowel Movements 1 Height (Feet): 5 Height (Inches): 5.00 Weight (Pounds): 147 Objective General: well appearing, nad, alert Head: normocephalic, atraumatic Eyes: b/l eye PERRL, bilateral eye EOMI ENT: hearing grossly normal, normal pharynx Neck: full range of motion, supple, no meningismus Respiratory: chest non-tender, lungs clear, normal BSs, NC++ CV: regular rate, rhythm, no murmur GI: normal bowel sounds, non tender, no mass MSK: back normal, normal range of motion Psychiatric: mood/affect normal Skin: warm/dry Jose Alberto España MD Jan 13, 2019 15:15
--- NOTE | 2019-01-13 15:53 | Internal Med Progress Note ---
Subjective Physician Name Abdias Hunter Attending Physician Abdias Hunter MD Current Medications Medications (Trade) Dose Ordered Sig/Scout Route PRN Reason Start Time Stop Time Status Last Admin Dose Admin Atorvastatin Calcium (Lipitor) 40 mg QHS ORAL 12/19/18 21:00 01/18/19 20:59 01/12/19 20:39 Carvedilol (Coreg) 12.5 mg EVERY 12 HOURS ORAL 01/12/19 21:00 02/11/19 20:59 01/12/19 20:39 Docusate Sodium (Colace) 100 mg Q12H PRN ORAL Constipation 12/18/18 21:45 01/17/19 21:29 12/29/18 07:58 Fentanyl (Duragesic) 1 patch Q72H TDERMAL 01/10/19 18:00 01/17/19 17:59 01/10/19 18:54 Furosemide (Lasix) 20 mg DAILY ORAL 01/13/19 09:00 02/12/19 08:59 01/13/19 08:46 Miscellaneous Medication (fentaNYL Destruction) 1 ea Q72H MISC 01/01/19 17:59 01/31/19 17:58 01/10/19 17:59 Morphine Sulfate (Morphine Sulfate) 2 mg Q4H PRN IM For Pain 01/12/19 20:30 01/19/19 20:29 01/13/19 11:30 Nitroglycerin (Ntg) 0.4 mg Q5M PRN SL Prn Chest Pain 12/25/18 16:55 01/24/19 16:54 01/09/19 04:00 Polyethylene Glycol (Miralax) 17 gm DAILYPRN PRN ORAL Constipation 12/28/18 19:00 01/27/19 18:59 01/13/19 08:46 Allergies: Coded Allergies: No Known Allergies (Verified , 09/12/10) Subjective Alert, oriented, no acute distress, no chest pain, Hgb: 7.4. Objective Last Vital Signs Date Time Temp Pulse Resp B/P (MAP) Pulse Ox O2 Delivery O2 Flow Rate FiO2 01/13/19 12:00 98.2 01/13/19 12:00 66 19 121/62 (81) 100 01/13/19 09:06 Room Air 01/12/19 22:07 2.0 28 Intake and Output 01/12/19 01/13/19 19:00 07:00 Intake Total 800 ml 24 ml Output Total 450 ml Balance 350 ml 24 ml Intake Oral 800 ml Other 24 ml Output Urine Total 450 ml # Voids 4 1 # Bowel Movements 1 Objective General: No acute distress, awake and alert HEENT: NCAT, sclera anicteric, PERRL, EOMI. Neck: Supple, no significant jugular venous distention, Lungs: Good inspiratory effort, clear to auscultation bilaterally, no Wheeze or Rales. Heart: Regular rate and rhythm, normal S1/S2, no murmur, AICD @ LCW. Abdomen: soft, nontender, nondistended. Normoactive bowel sounds. Extremities: No Cyanosis , clubbing or edema. Neuro: A&O x 3, Able to move all extremities Assessment/Plan Assessment/Plan 1. Chest pain, possible acute coronary syndrome. 2. Hypertension. 3. Dyslipidemia. 4. Congestive heart failure. 5. Coronary artery disease. 6. Sick sinus syndrome, status pacemaker. 7. Acute E. coli UTI. 8. 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 PLAN: Dr. Gee from Cardiology Electrophysiology. Dr. Luong, Pulmonary Critical Care. DVT prophylaxis: SCD Code status, Full Code. S/P transfusion 2 units PRBC on 11/19/18 waiting for SNF placement. Abx: Off monitor Labs Abdias Hunter MD Jan 13, 2019 15:53
[2019-01-13 16:00] VITALS: BP 114/60
[2019-01-13] MEDS: fentaNYL Destruction MISC SCH (17:07)
[2019-01-13 20:00] VITALS: BP 128/62
[2019-01-13] MEDS: Atorvastatin 20mg tab ORAL SCH (20:34)
[2019-01-14] VITALS: BP 111/46
[2019-01-14] MEDS: Morphine Sulfate 2mg/ml Inj(IV/IM USE ONLY) IM PRN ×5 (00:46→18:49)
[2019-01-14] MEDS: Nitroglycerin Subl 0.4mg tab SL PRN (02:32)
[2019-01-14 04:00] VITALS: BP 122/55
[2019-01-14 08:03] VITALS: BP 115/50
[2019-01-14] MEDS: Carvedilol 12.5mg tab ORAL SCH ×2 (08:54→20:55)
--- NOTE | 2019-01-14 10:20 | General Progress Note ---
Assessment/Plan Problem List: (1) History of CVA (cerebrovascular accident) ICD Codes: Z86.73 - Personal history of transient ischemic attack (TIA), and cerebral infarction without residual deficits SNOMED: 287910908 (2) Cardiomyopathy ICD Codes: I42.9 - Cardiomyopathy, unspecified SNOMED: 61206855 (3) Hypothyroidism ICD Codes: E03.9 - Hypothyroidism, unspecified SNOMED: 46219426 (4) HTN (hypertension) ICD Codes: I10 - Essential (primary) hypertension SNOMED: 65414471 (5) Severe thrombocytopenia ICD Codes: D69.6 - Thrombocytopenia, unspecified SNOMED: 192878272 (6) Anxiety disorder ICD Codes: F41.9 - Anxiety disorder, unspecified SNOMED: 853019309 (7) Severe anemia ICD Codes: D64.9 - Anemia, unspecified SNOMED: 055277468 (8) GERD (gastroesophageal reflux disease) ICD Codes: K21.9 - Gastro-esophageal reflux disease without esophagitis SNOMED: 985895761 (9) Pacemaker ICD Codes: Z95.0 - Presence of cardiac pacemaker SNOMED: 10710506, 078792839, 838774501 Assessment/Plan SUMMARY OF FINDINGS: 1. Gastritis. 2. A 6 cm hiatal hernia. pending placement RECOMMENDATIONS: Follow up biopsy results and treat accordingly. >> Mild chronic gastritis. Negative for H. pylori negative negative for dysplasia or malignancy. BM biopsy>> leukemia>> fu oncology monitor H&H, prn transfusions. bowel regime ppi, H2B qhs Zofran as needed fu labs Outpatient hep C treatment dc planning Subjective ROS Limited/Unobtainable: No Allergies: Coded Allergies: No Known Allergies (Verified , 09/12/10) Objective Last 24 Hour Vital Signs Date Time Temp Pulse Resp B/P (MAP) Pulse Ox O2 Delivery O2 Flow Rate FiO2 01/14/19 09:11 98.3 01/14/19 08:54 69 115/50 01/14/19 08:03 98.3 69 17 115/50 (71) 98 01/14/19 04:00 98.3 67 18 122/55 (77) 100 01/14/19 02:32 120/78 01/14/19 00:00 98.7 65 18 111/46 (67) 100 01/13/19 21:00 Room Air 01/13/19 20:34 68 120/82 01/13/19 20:22 96 Room Air 21 01/13/19 20:22 Room Air 21 01/13/19 20:00 98.7 74 18 128/62 (84) 100 01/13/19 17:37 98.2 01/13/19 16:00 98.2 68 18 114/60 (78) 100 01/13/19 12:00 98.4 66 19 121/62 (81) 100 Intake and Output 01/13/19 01/14/19 18:59 06:59 Intake Total 560 ml Balance 560 ml Intake Oral 560 ml # Voids 3 3 # Bowel Movements 1 Height (Feet): 5 Height (Inches): 5.00 Weight (Pounds): 145 General Appearance: no apparent distress EENT: normal ENT inspection Neck: supple Cardiovascular: normal rate Respiratory/Chest: decreased breath sounds Abdomen: normal bowel sounds, non tender, soft Extremities: non-tender Richie Mcguire MD Jan 14, 2019 10:20
[2019-01-14 12:00] VITALS: BP 120/55
--- NOTE | 2019-01-14 15:34 | Cardiology Progress Note ---
Assessment/Plan Status: stable Assessment/Plan Assessment/Plan 1. CP and Hx of CABG. Likely due to severe anemia. Ruled out [place]. 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 Off Aspirin and Plavix for thrombocytopenia 2. Cardiomyopathy. EF now 55%. On Coreg 12.5 mg bid and Lasix 20 daily [address] [facility] atriobiventricular defibrillator. Interrogated and showed Nl Fx 4. Severe anemia, S/P multiple PRBC and platelet transfusions . 5. Pancytopenia. Off Aspirin and PLavix S/P platelet and PRBC transfusion. BM biopsy 11/29/[address] Stock 6. Placement Subjective Cardiovascular: Reports: no symptoms Respiratory: Reports: no symptoms Gastrointestinal/Abdominal: Reports: no symptoms Subjective Patient alert x2, on room air, no sign of distress and shortness of breath; no sign of chest pain, pain controlled, awaiting dispo Coverage for [place] Objective Last 24 Hour Vital Signs Date Time Temp Pulse Resp B/P (MAP) Pulse Ox O2 Delivery O2 Flow Rate FiO2 01/14/19 14:32 98.5 01/14/19 12:00 98.5 70 19 120/55 (76) 98 01/14/19 09:00 Room Air 01/14/19 08:54 69 115/50 01/14/19 08:03 98.3 69 17 115/50 (71) 98 01/14/19 04:00 98.3 67 18 122/55 (77) 100 01/14/19 02:32 120/78 01/14/19 00:00 98.7 65 18 111/46 (67) 100 01/13/19 21:00 Room Air 01/13/19 20:34 68 120/82 01/13/19 20:22 96 Room Air 21 01/13/19 20:22 Room Air 21 01/13/19 20:00 98.7 74 18 128/62 (84) 100 01/13/19 17:37 98.2 01/13/19 16:00 98.2 68 18 114/60 (78) 100 General Appearance: no apparent distress, alert EENT: PERRL/EOMI, normal ENT inspection, pharynx normal Neck: normal alignment, supple, normal inspection, no JVD Rhythm: NSR Cardiovascular: normal peripheral pulses, normal rate, regular rhythm Respiratory/Chest: chest wall non-tender, lungs clear, normal breath sounds Abdomen: normal bowel sounds, non tender, soft, no organomegaly Extremities: normal range of motion, non-tender Neurologic: friend of the court II-XII grossly normal, no motor/sensory deficits Intake and Output 01/13/19 01/14/19 19:00 07:00 Intake Total 560 ml Balance 560 ml Intake Oral 560 ml # Voids 3 3 # Bowel Movements 1 Yair Damon MD Jan 14, 2019 15:34
[2019-01-14 16:00] VITALS: BP 132/55
--- NOTE | 2019-01-14 16:17 | Internal Med Progress Note ---
Subjective Physician Name Abdias Hunter Attending Physician Abdias Hunter MD Current Medications Medications (Trade) Dose Ordered Sig/Scout Route PRN Reason Start Time Stop Time Status Last Admin Dose Admin Atorvastatin Calcium (Lipitor) 40 mg QHS ORAL 12/19/18 21:00 01/18/19 20:59 01/13/19 20:34 Carvedilol (Coreg) 12.5 mg EVERY 12 HOURS ORAL 01/12/19 21:00 02/11/19 20:59 01/13/19 20:34 Docusate Sodium (Colace) 100 mg Q12H PRN ORAL Constipation 12/18/18 21:45 01/17/19 21:29 12/29/18 07:58 Fentanyl (Duragesic) 1 patch Q72H TDERMAL 01/10/19 18:00 01/17/19 17:59 01/13/19 17:07 Furosemide (Lasix) 20 mg DAILY ORAL 01/13/19 09:00 02/12/19 08:59 01/14/19 08:41 Miscellaneous Medication (fentaNYL Destruction) 1 ea Q72H MISC 01/01/19 17:59 01/31/19 17:58 01/13/19 17:07 Morphine Sulfate (Morphine Sulfate) 2 mg Q4H PRN IM For Pain 01/12/19 20:30 01/19/19 20:29 01/14/19 14:02 Nitroglycerin (Ntg) 0.4 mg Q5M PRN SL Prn Chest Pain 12/25/18 16:55 01/24/19 16:54 01/14/19 02:32 Polyethylene Glycol (Miralax) 17 gm DAILYPRN PRN ORAL Constipation 12/28/18 19:00 01/27/19 18:59 01/13/19 08:46 Allergies: Coded Allergies: No Known Allergies (Verified , 09/12/10) Subjective Alert, responsive, no acute distress, no chest pain,feeling weak. Objective Last Vital Signs Date Time Temp Pulse Resp B/P (MAP) Pulse Ox O2 Delivery O2 Flow Rate FiO2 01/14/19 14:32 98.5 01/14/19 12:00 70 19 120/55 (76) 98 01/14/19 09:00 Room Air 01/13/19 20:22 21 01/12/19 22:07 2.0 Intake and Output 01/13/19 01/14/19 19:00 07:00 Intake Total 560 ml Balance 560 ml Intake Oral 560 ml # Voids 3 3 # Bowel Movements 1 Objective General: No acute distress, awake and alert HEENT: NCAT, sclera anicteric, PERRL, EOMI. Neck: Supple, no significant jugular venous distention, Lungs: Good inspiratory effort, clear to auscultation bilaterally, no Wheeze or Rales. Heart: Regular rate and rhythm, normal S1/S2, no murmur, AICD @ LCW. Abdomen: soft, nontender, nondistended. Normoactive bowel sounds. Extremities: No Cyanosis , clubbing or edema. Neuro: A&O x 3, Able to move all extremities Assessment/Plan Assessment/Plan 1. Chest pain, possible acute coronary syndrome. 2. Hypertension. 3. Dyslipidemia. 4. Congestive heart failure. 5. Coronary artery disease. 6. Sick sinus syndrome, status pacemaker. 7. Acute E. coli UTI. 8. 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 PLAN: Dr. Gee from Cardiology Electrophysiology. Dr. Luong, Pulmonary Critical Care. DVT prophylaxis: SCD Code status, Full Code. S/P transfusion 2 units PRBC on 11/19/18 waiting for SNF placement. Abx: Off monitor Labs Abdias [place] MD Jan 14, 2019 16:17
--- NOTE | 2019-01-14 17:04 | Pulmonology Progress Note ---
Assessment/Plan Problems: (1) Advanced dementia (2) Myeloblastic leukemia (3) Severe thrombocytopenia (4) ACS (acute coronary syndrome) (5) Cardiomyopathy (6) HTN (hypertension) (7) Pacemaker (8) Hypothyroidism (9) CAD (coronary artery disease) (10) History of CVA (cerebrovascular accident) Assessment/Plan confused, cant make his own decisions, no new complains doing better, on fentNAYL PACH, pain better controlled early leukemia check electrolytes symptomatic treatment pain better controlled waiting for Medical application dc planning Subjective ROS Limited/Unobtainable: No Constitutional: Reports: no symptoms HEENT: Repors: no symptoms Respiratory: Reports: no symptoms Allergies: Coded Allergies: No Known Allergies (Verified , 09/12/10) Objective Last 24 Hour Vital Signs Date Time Temp Pulse Resp B/P (MAP) Pulse Ox O2 Delivery O2 Flow Rate FiO2 01/14/19 16:00 98.6 62 19 132/55 (80) 100 01/14/19 14:32 98.5 01/14/19 12:00 98.5 70 19 120/55 (76) 98 01/14/19 09:00 Room Air 01/14/19 08:54 69 115/50 01/14/19 08:03 98.3 69 17 115/50 (71) 98 01/14/19 04:00 98.3 67 18 122/55 (77) 100 01/14/19 02:32 120/78 01/14/19 00:00 98.7 65 18 111/46 (67) 100 01/13/19 21:00 Room Air 01/13/19 20:34 68 120/82 01/13/19 20:22 96 Room Air 21 01/13/19 20:22 Room Air 21 01/13/19 20:00 98.7 74 18 128/62 (84) 100 01/13/19 17:37 98.2 Intake and Output 01/13/19 01/14/19 19:00 07:00 Intake Total 560 ml Balance 560 ml Intake Oral 560 ml # Voids 3 3 # Bowel Movements 1 Objective General Appearance: cachetic Lines, tubes and drains: peripheral HEENT: normocephalic, atraumatic Neck: non-tender, normal alignment Respiratory/Chest: chest wall non-tender, lungs clear Breasts: no masses Cardiovascular/Chest: normal peripheral pulses, normal rate Abdomen: normal bowel sounds, non tender Genitourinary/Rectal: normal genital exam Extremities: normal range of motion Skin Exam: normal pigmentation Neurologic: lockstitch lining setter II-XII grossly normal Current Medications Medications (Trade) Dose Ordered Sig/Scout Route PRN Reason Start Time Stop Time Status Last Admin Dose Admin Atorvastatin Calcium (Lipitor) 40 mg QHS ORAL 12/19/18 21:00 01/18/19 20:59 01/13/19 20:34 Carvedilol (Coreg) 12.5 mg EVERY 12 HOURS ORAL 01/12/19 21:00 02/11/19 20:59 01/13/19 20:34 Docusate Sodium (Colace) 100 mg Q12H PRN ORAL Constipation 12/18/18 21:45 01/17/19 21:29 12/29/18 07:58 Fentanyl (Duragesic) 1 patch Q72H TDERMAL 01/10/19 18:00 01/17/19 17:59 01/13/19 17:07 Furosemide (Lasix) 20 mg DAILY ORAL 01/13/19 09:00 02/12/19 08:59 01/14/19 08:41 Miscellaneous Medication (fentaNYL Destruction) 1 ea Q72H MISC 01/01/19 17:59 01/31/19 17:58 01/13/19 17:07 Morphine Sulfate (Morphine Sulfate) 2 mg Q4H PRN IM For Pain 01/12/19 20:30 01/19/19 20:29 01/14/19 14:02 Nitroglycerin (Ntg) 0.4 mg Q5M PRN SL Prn Chest Pain 12/25/18 16:55 01/24/19 16:54 01/14/19 02:32 Polyethylene Glycol (Miralax) 17 gm DAILYPRN PRN ORAL Constipation 12/28/18 19:00 01/27/19 18:59 01/13/19 08:46 Chepe Luong MD Jan 14, 2019 17:04
[2019-01-14 20:03] VITALS: BP 116/51
[2019-01-14] MEDS: Atorvastatin 20mg tab ORAL SCH (20:55)
[2019-01-14] MEDS ORDERED: Albuterol/Ipratropium 3ml neb HHN PRN (22:15)
[2019-01-14] MEDS: Miralax 17gm pkt ORAL PRN (22:36)
[2019-01-14] MEDS: Docusate 100mg cap ORAL PRN (22:37)
[2019-01-15] VITALS (7 sets, daily range): BP systolic 104–150; BP diastolic 51–85
[2019-01-15] MEDS: Morphine Sulfate 2mg/ml Inj(IV/IM USE ONLY) IM PRN ×3 (00:18→17:21)
[2019-01-15] MEDS: Carvedilol 12.5mg tab ORAL SCH ×2 (08:40→20:50)
[2019-01-15] MEDS: Miralax 17gm pkt ORAL PRN (08:40)
--- NOTE | 2019-01-15 10:34 | General Progress Note ---
Assessment/Plan Problem List: (1) History of CVA (cerebrovascular accident) ICD Codes: Z86.73 - Personal history of transient ischemic attack (TIA), and cerebral infarction without residual deficits SNOMED: 750416711 (2) Cardiomyopathy ICD Codes: I42.9 - Cardiomyopathy, unspecified SNOMED: 15365985 (3) Hypothyroidism ICD Codes: E03.9 - Hypothyroidism, unspecified SNOMED: 70249906 (4) HTN (hypertension) ICD Codes: I10 - Essential (primary) hypertension SNOMED: 60469227 (5) Severe thrombocytopenia ICD Codes: D69.6 - Thrombocytopenia, unspecified SNOMED: 945938047 (6) Anxiety disorder ICD Codes: F41.9 - Anxiety disorder, unspecified SNOMED: 842268574 (7) Severe anemia ICD Codes: D64.9 - Anemia, unspecified SNOMED: 310437822 (8) GERD (gastroesophageal reflux disease) ICD Codes: K21.9 - Gastro-esophageal reflux disease without esophagitis SNOMED: 585894931 (9) Pacemaker ICD Codes: Z95.0 - Presence of cardiac pacemaker SNOMED: 66479462, 928171601, 546561170 Assessment/Plan SUMMARY OF FINDINGS: 1. Gastritis. 2. A 6 cm hiatal hernia. pending placement RECOMMENDATIONS: Follow up biopsy results and treat accordingly. >> Mild chronic gastritis. Negative for H. pylori negative negative for dysplasia or malignancy. BM biopsy>> leukemia>> fu oncology monitor H&H, prn transfusions. bowel regime ppi, H2B qhs Zofran as needed fu labs Outpatient hep C treatment dc planning Subjective ROS Limited/Unobtainable: No Allergies: Coded Allergies: No Known Allergies (Verified , 09/12/10) Objective Last 24 Hour Vital Signs Date Time Temp Pulse Resp B/P (MAP) Pulse Ox O2 Delivery O2 Flow Rate FiO2 01/15/19 09:00 Room Air 01/15/19 08:40 86 136/66 01/15/19 08:00 98.5 86 16 136/66 (89) 100 01/15/19 06:57 Nasal Cannula 2.0 28 01/15/19 06:57 97 Nasal Cannula 2.0 28 01/15/19 04:00 98.2 65 16 104/58 (73) 98 01/15/19 00:48 98.7 4/14/19 00:00 98.8 63 17 118/73 (88) 97 01/14/19 22:42 87 18 100 Nasal Cannula 2.0 28 01/14/19 22:34 Nasal Cannula 2.0 28 01/14/19 22:34 83 18 100 Nasal Cannula 2.0 28 01/14/19 22:34 100 Nasal Cannula 2.0 28 01/14/19 22:34 83 18 Nasal Cannula 2.0 28 01/14/19 20:55 66 116/51 01/14/19 20:03 98.7 66 19 116/51 (72) 100 01/14/19 20:01 Room Air 01/14/19 16:00 98.6 62 19 132/55 (80) 100 01/14/19 12:00 98.5 70 19 120/55 (76) 98 Intake and Output 01/14/19 01/15/19 18:59 06:59 Intake Total 240 ml Output Total 450 ml Balance -210 ml Intake Oral 240 ml Output Urine Total 450 ml Height (Feet): 5 Height (Inches): 5.00 Weight (Pounds): 144 General Appearance: alert EENT: normal ENT inspection Neck: supple Cardiovascular: normal rate Respiratory/Chest: decreased breath sounds Abdomen: normal bowel sounds, non tender, soft Extremities: non-tender Richie Mcguire MD Jan 15, 2019 10:34
--- NOTE | 2019-01-15 11:29 | Cardiology Progress Note ---
Assessment/Plan Status: stable Assessment/Plan Assessment/Plan 1. CP and Hx of CABG. Likely due to severe anemia. Ruled out MD. 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 Off Aspirin and Plavix for thrombocytopenia 2. Cardiomyopathy. EF now 55%. On Coreg 12.5 mg bid and Lasix 20 daily 3. Status post [facility] atriobiventricular defibrillator. Interrogated and showed Nl Fx 4. Severe anemia, S/P multiple PRBC and platelet transfusions . 5. Pancytopenia. Off Aspirin and PLavix S/P platelet and PRBC transfusion. BM biopsy 11/29/[address] Stock 6. Placement Subjective Cardiovascular: Reports: no symptoms Respiratory: Reports: no symptoms Gastrointestinal/Abdominal: Reports: no symptoms Genitourinary: Reports: no symptoms Subjective Patient alert x2, on room air, no sign of distress and shortness of breath; no sign of chest pain, pain controlled, awaiting dispo Coverage for [employer] Objective Last 24 Hour Vital Signs Date Time Temp Pulse Resp B/P (MAP) Pulse Ox O2 Delivery O2 Flow Rate FiO2 01/15/19 09:55 98.2 01/15/19 09:00 Room Air 01/15/19 08:40 86 136/66 01/15/19 08:00 98.5 86 16 136/66 (89) 100 01/15/19 06:57 Nasal Cannula 2.0 28 01/15/19 06:57 97 Nasal Cannula 2.0 28 01/15/19 04:00 98.2 65 16 104/58 (73) 98 01/15/19 00:00 98.8 63 17 118/73 (88) 97 01/14/19 22:42 87 18 100 Nasal Cannula 2.0 28 01/14/19 22:34 Nasal Cannula 2.0 28 01/14/19 22:34 83 18 100 Nasal Cannula 2.0 28 01/14/19 22:34 100 Nasal Cannula 2.0 28 01/14/19 22:34 83 18 Nasal Cannula 2.0 28 01/14/19 20:55 66 116/51 01/14/19 20:03 98.7 66 19 116/51 (72) 100 01/14/19 20:01 Room Air 01/14/19 16:00 98.6 62 19 132/55 (80) 100 01/14/19 12:00 98.5 70 19 120/55 (53) 98 General Appearance: no apparent distress, alert EENT: PERRL/EOMI, normal ENT inspection Neck: non-tender, normal alignment, supple Rhythm: NSR Cardiovascular: normal peripheral pulses, normal rate, regular rhythm Respiratory/Chest: chest wall non-tender, lungs clear Abdomen: normal bowel sounds, non tender, soft, no organomegaly Extremities: normal range of motion, non-tender, normal inspection 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
--- NOTE | 2019-01-15 11:52 | Internal Med Progress Note ---
Subjective Physician Name Abdias Hunter Attending Physician Abdias Hunter MD Current Medications Medications (Trade) Dose Ordered Sig/Scout Route PRN Reason Start Time Stop Time Status Last Admin Dose Admin Albuterol/ Ipratropium (Albuterol/ Ipratropium) 3 ml Q4H PRN HHN Shortness of Breath 01/14/19 22:15 01/19/19 22:14 01/14/19 22:34 Atorvastatin Calcium (Lipitor) 40 mg QHS ORAL 12/19/18 21:00 01/18/19 20:59 01/14/19 20:55 Carvedilol (Coreg) 12.5 mg EVERY 12 HOURS ORAL 01/12/19 21:00 02/11/19 20:59 01/15/19 08:40 Docusate Sodium (Colace) 100 mg Q12H PRN ORAL Constipation 12/18/18 21:45 01/17/19 21:29 01/14/19 22:37 Fentanyl (Duragesic) 1 patch Q72H TDERMAL 01/10/19 18:00 01/17/19 17:59 01/13/19 17:07 Furosemide (Lasix) 20 mg DAILY ORAL 01/13/19 09:00 02/12/19 08:59 01/15/19 08:40 Miscellaneous Medication (fentaNYL Destruction) 1 ea Q72H MISC 01/01/19 17:59 01/31/19 17:58 01/13/19 17:07 Morphine Sulfate (Morphine Sulfate) 2 mg Q4H PRN IM For Pain 01/12/19 20:30 01/19/19 20:29 01/15/19 09:25 Nitroglycerin (Ntg) 0.4 mg Q5M PRN SL Prn Chest Pain 12/25/18 16:55 01/24/19 16:54 01/14/19 02:32 Polyethylene Glycol (Miralax) 17 gm DAILYPRN PRN ORAL Constipation 12/28/18 19:00 01/27/19 18:59 01/15/19 08:40 Allergies: Coded Allergies: No Known Allergies (Verified , 09/12/10) Subjective Alert, responsive, no acute distress, C/o chest wall pain,feeling better. Objective Last Vital Signs Date Time Temp Pulse Resp B/P (MAP) Pulse Ox O2 Delivery O2 Flow Rate FiO2 01/15/19 09:55 98.2 01/15/19 09:00 Room Air 01/15/19 08:40 86 136/66 01/15/19 08:00 16 100 01/15/19 06:57 2.0 28 Intake and Output 01/14/19 01/15/19 18:59 06:59 Intake Total 240 ml Output Total 450 ml Balance -210 ml Intake Oral 240 ml Output Urine Total 450 ml Objective General: No acute distress, awake and alert HEENT: NCAT, sclera anicteric, PERRL, EOMI. Neck: Supple, no significant jugular venous distention, Lungs: Good inspiratory effort, clear to auscultation bilaterally, no Wheeze or Rales. Heart: Regular rate and rhythm, normal S1/S2, no murmur, AICD @ LCW. Abdomen: soft, nontender, nondistended. Normoactive bowel sounds. Extremities: No Cyanosis , clubbing or edema. Neuro: A&O x 3, Able to move all extremities Assessment/Plan Assessment/Plan 1. Chest pain, possible acute coronary syndrome. 2. Hypertension. 3. Dyslipidemia. 4. Congestive heart failure. 5. Coronary artery disease. 6. Sick sinus syndrome, status pacemaker. 7. Acute E. coli UTI. 8. 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 PLAN: Dr. Gee from Cardiology Electrophysiology. Dr. Luong, Pulmonary Critical Care. DVT prophylaxis: SCD Code status, Full Code. S/P transfusion 2 units PRBC on 11/19/18 waiting for SNF placement. Abx: Off monitor Labs Abdias Grove MD Jan 15, 2019 11:52
--- NOTE | 2019-01-15 16:49 | General Progress Note ---
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 --> Hep panel and HIV negative, hep C++ --> US abd to evaluate for cirrhosis and hsm reviewed --> Peripheral smear ordered to evaluate for blasts /schistocytes is wnl --> abx and other meds have been reviewed --> ok for ppx if plt >50k w/ either heparin or lovenox --> Transfuse if Plt < 20k and fever, or if Plt < 10k without fever --->Plt trend 70-->65-->44-->86-->122-->88-->100k-->140k-->154k-->78k-->72k--> 110k # Reticulocytosis with elevated bilirubin that is indirect --> reviewed direct and indirect bilis again, trend could have liver disease --> liver US shows no significant cirrhosis --> evaluate as needed with gi team, recs apprecaited #. Chest pain, possible acute coronary syndrome. --> cards recs appreciated as well as pulm --> stress test prn # Hypertension. sbp goal <140 -- > as per cards recs # Dyslipidemia. on statin prn # Chf # Coronary artery disease. # Sick sinus syndrome, status pacemaker. # Acute E. coli UTI s/p abx # Hep C+++ needs op management # Chronic pain is on fentanyl patch prn The timing of this note does not necessarily reflect the time of the patient was seen. Greatly appreciate consultation! Subjective Cardiovascular: Denies: no symptoms, chest pain, edema, irregular heart rate, lightheadedness, palpitations, syncope, other Respiratory: Denies: no symptoms, cough, orthopnea, shortness of breath, SOB with excertion, SOB at rest, sputum, stridor, wheezing, other Gastrointestinal/Abdominal: Denies: no symptoms, abdomen distended, abdominal pain, black stools, tarry stools, blood in stool, constipated, diarrhea, difficulty swallowing, nausea, poor appetite, poor fluid intake, rectal bleeding , vomiting, other Genitourinary: Denies: no symptoms, burning, discharge, frequency, flank pain, hematuria, incontinence, pain, urgency, other Endocrine: Denies: no symptoms, excessive sweating, flushing, intolerance to cold, intolerance to heat, increased hunger, increased thirst, increased urine, unexplained weight gain, unexplained weight loss, other Hematologic/Lymphatic: Denies: no symptoms, anemia, easy bleeding, easy bruising, other Allergies: Coded Allergies: No Known Allergies (Verified , 09/12/10) Subjective 11/27: no events to report, no f/c 11/28: seen by bedside, plt 65, plan for EGD and bone marrow biopsy tomorrow 11/29: BM biopsy today, no acute distress. 11/30: Had BM biopsy yesterday and now in reverse isolation. hgb 7.5, will transfuse as needed. 12/01: seen by bedside, plt remains low, awaiting bone marrow biopsy results. 12/02: No acute distress, no chest pain, no shortness of breath, wbc 2.7, hgb 7.3 , plt 50, will transfuse as needed. S/P BM biopsy 11/29/18, Results pending 12/04: bone marrow biopsy completed, and show myeloblasts, c/w mds/leukemia, requires close surveillance 12/05: hgb 6.9, Had blood transfusion today, plt up trending, no events 12/06: Seen by bedside, overall improved, still has complaint of chest pain, plt trending up 12/07: Given 1 unit prbc, continues to c/o chest pain, seen by cards 12/08: seen by bedside, complains of pain, plt 106, no events 12/09: awake, comfortable, plt trending down at 69, no events 12/11: awake, comfortable, on NC, plt remains low at 70. 12/12: awake, comfortable, plt 65, no events 12/13: seen by bedside, awake , comfortable, pending labs. 12/14: awake, comfortable, hgb 7.9, monitor, will transfuse as needed, plt trending down at 44, 12/15: seen by bedside, awake, comfortable, hgb 7, will transfuse as needed, plt 82. 12/16: awake comfortable, no events, hgb trending up 12/18: seen by bedside, alert, oriented, no acute distress 12/19: no events noted, no fevers or chills, cbc has been reviewed, had blasts on smear this wknd 12/20: seen by bedside, awake, comfortable, hgb 7.4, will transfuse as needed. 12/21: No overnight events reported, comfortable, hgb 8.1 12/22: no events to report, remains nausous, the platelet count has improved on its own 12/23: awaiting placement to snf at this time, following with cards, pulm 12/24: on 2l nc, received morphine today by rn, complaining of pain 12/25: no events today, no f/c, labs reviewed 12/26: no events report, will get one unit prbc today, has been ordered 12/27: hgb stable/improved but is after transfusion, no events otherwise no fevers 12/28: no events, feeling overall better 12/29: this am comfortable and sleeping, no events, cbc reviewed, no issues noted 12/30: no events to report, no night sweats, anemia panel reviewed 01/02: awake, alert, bed in lowest position 01/03: dc to [facility] once bed opens up, no events o/n 01/04: comfortable in bed, counts are lower, monitor for reverse isolation as needed 01/05: labs pending, no issues, besides intermittent cp, seen by cards, morphine given by rn 01/06: labs have been reviewed and no f/c noted, eating 01/08: no events to report, cbc has been reviewed, no bleeding 01/09: is on fentanyl patch, no major bleeding, otherwise asymptomatic, comfortable 01/10: no fevers or chills, no weigt loss, comfortable today 01/11: no events noted, on fentanyl patch at this time 01/12: no events, comfortable, off asa and palvix 01/13: dc planning started, no fevers or chills reported 01/15: fevers or chills, no new labs, seen by Dr. Hunter Objective Last 24 Hour Vital Signs Date Time Temp Pulse Resp B/P (MAP) Pulse Ox O2 Delivery O2 Flow Rate FiO2 01/15/19 16:00 98.8 82 19 131/70 (90) 98 01/15/19 12:00 97.8 77 16 150/71 (97) 99 01/15/19 09:55 98.2 01/15/19 09:00 Room Air 01/15/19 08:40 86 136/66 01/15/19 08:00 98.5 86 16 136/66 (89) 100 01/15/19 06:57 Nasal Cannula 2.0 28 01/15/19 06:57 97 Nasal Cannula 2.0 28 01/15/19 04:00 98.2 65 16 104/58 (73) 98 01/15/19 00:00 98.8 63 17 118/73 (88) 97 01/14/19 22:42 87 18 100 Nasal Cannula 2.0 28 01/14/19 22:34 Nasal Cannula 2.0 28 01/14/19 22:34 83 18 100 Nasal Cannula 2.0 28 01/14/19 22:34 100 Nasal Cannula 2.0 28 01/14/19 22:34 83 18 Nasal Cannula 2.0 28 01/14/19 20:55 66 116/51 4/13/19 20:03 98.7 66 19 116/51 (72) 100 01/14/19 20:01 Room Air Intake and Output 01/14/19 01/15/19 19:00 07:00 Intake Total 240 ml Output Total 450 ml Balance -210 ml Intake Oral 240 ml Output Urine Total 450 ml Height (Feet): 5 Height (Inches): 5.00 Weight (Pounds): 144 Objective General: well appearing, nad, alert Head: normocephalic, atraumatic Eyes: b/l eye PERRL, bilateral eye EOMI ENT: hearing grossly normal, normal pharynx Neck: full range of motion, supple, no meningismus Respiratory: chest non-tender, lungs clear, normal BSs, NC++ CV: regular rate, rhythm, no murmur GI: normal bowel sounds, non tender, no mass MSK: back normal, normal range of motion Psychiatric: mood/affect normal Skin: warm/dry Jose Alberto España MD Jan 15, 2019 16:49
[2019-01-15] MEDS: Atorvastatin 20mg tab ORAL SCH (20:49)
[2019-01-16 04:06] VITALS: BP 110/62
[2019-01-16] MEDS: Morphine Sulfate 2mg/ml Inj(IV/IM USE ONLY) IM PRN ×5 (04:40→21:07)
[2019-01-16 08:00] VITALS: BP 112/66
[2019-01-16] MEDS: Carvedilol 12.5mg tab ORAL SCH ×2 (08:47→21:07)
--- NOTE | 2019-01-16 09:12 | Internal Med Progress Note ---
Subjective Physician Name Abdias Hunter Attending Physician Abdias Hunter MD Current Medications Medications (Trade) Dose Ordered Sig/Scout Route PRN Reason Start Time Stop Time Status Last Admin Dose Admin Albuterol/ Ipratropium (Albuterol/ Ipratropium) 3 ml Q4H PRN HHN Shortness of Breath 01/14/19 22:15 01/19/19 22:14 01/14/19 22:34 Atorvastatin Calcium (Lipitor) 40 mg QHS ORAL 12/19/18 21:00 01/18/19 20:59 01/15/19 20:49 Carvedilol (Coreg) 12.5 mg EVERY 12 HOURS ORAL 01/12/19 21:00 02/11/19 20:59 01/16/19 08:47 Docusate Sodium (Colace) 100 mg Q12H PRN ORAL Constipation 12/18/18 21:45 01/17/19 21:29 01/14/19 22:37 Fentanyl (Duragesic) 1 patch Q72H TDERMAL 01/10/19 18:00 01/17/19 17:59 01/13/19 17:07 Furosemide (Lasix) 20 mg DAILY ORAL 01/13/19 09:00 02/12/19 08:59 01/16/19 08:47 Miscellaneous Medication (fentaNYL Destruction) 1 ea Q72H MISC 01/01/19 17:59 01/31/19 17:58 01/13/19 17:07 Morphine Sulfate (Morphine Sulfate) 2 mg Q4H PRN IM For Pain 01/12/19 20:30 01/19/19 20:29 01/16/19 08:49 Nitroglycerin (Ntg) 0.4 mg Q5M PRN SL Prn Chest Pain 12/25/18 16:55 01/24/19 16:54 01/14/19 02:32 Polyethylene Glycol (Miralax) 17 gm DAILYPRN PRN ORAL Constipation 12/28/18 19:00 01/27/19 18:59 01/15/19 08:40 Allergies: Coded Allergies: No Known Allergies (Verified , 09/12/10) Subjective Alert, responsive, no acute distress, C/o less chest wall pain,feeling better. Objective Last Vital Signs Date Time Temp Pulse Resp B/P (MAP) Pulse Ox O2 Delivery O2 Flow Rate FiO2 01/16/19 08:47 73 112/66 01/16/19 08:00 98.7 18 99 01/16/19 07:46 Nasal Cannula 2.0 28 Intake and Output 01/15/19 01/16/19 19:00 07:00 Intake Total 900 ml Output Total 100 ml Balance 900 ml -100 ml Other 900 ml Output Urine Total 100 ml Objective General: No acute distress, awake and alert HEENT: NCAT, sclera anicteric, PERRL, EOMI. Neck: Supple, no significant jugular venous distention, Lungs: Good inspiratory effort, clear to auscultation bilaterally, no Wheeze or Rales. Heart: Regular rate and rhythm, normal S1/S2, no murmur, AICD @ LCW. Abdomen: soft, nontender, nondistended. Normoactive bowel sounds. Extremities: No Cyanosis , clubbing or edema. Neuro: A&O x 3, Able to move all extremities Assessment/Plan Assessment/Plan 1. Chest pain, possible acute coronary syndrome. 2. Hypertension. 3. Dyslipidemia. 4. Congestive heart failure. 5. Coronary artery disease. 6. Sick sinus syndrome, status pacemaker. 7. Acute E. coli UTI. 8. 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 PLAN: Dr. Gee from Cardiology Electrophysiology. Dr. Luong, Pulmonary Critical Care. DVT prophylaxis: SCD Code status, Full Code. S/P transfusion 2 units PRBC on 11/19/18 waiting for SNF placement. Abx: Off monitor Labs Abdias Grove MD Jan 16, 2019 09:12
--- NOTE | 2019-01-16 10:27 | Cardiology Progress Note ---
Assessment/Plan Status: stable Assessment/Plan Assessment/Plan 1. CP and Hx of CABG. Likely due to severe anemia. Ruled out AR. 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 Off Aspirin and Plavix for thrombocytopenia 2. Cardiomyopathy. EF now 55%. On Coreg 12.5 mg bid and Lasix 20 daily [address] Status [address] [facility] atriobiventricular defibrillator. Interrogated and showed Nl Fx 4. Severe anemia, S/P multiple PRBC and platelet transfusions . 5. Pancytopenia. Off Aspirin and PLavix S/P platelet and PRBC transfusion. BM biopsy 11/29/[address] Stock 6. Placement Subjective Cardiovascular: Reports: no symptoms Respiratory: Reports: no symptoms Gastrointestinal/Abdominal: Reports: no symptoms Genitourinary: Reports: no symptoms Subjective Patient alert x2, on room air, no sign of distress and shortness of breath; no sign of chest pain, pain controlled, awaiting dispo Coverage for [employer] Objective Last 24 Hour Vital Signs Date Time Temp Pulse Resp B/P (MAP) Pulse Ox O2 Delivery O2 Flow Rate FiO2 01/16/19 09:19 98.7 01/16/19 08:47 73 112/66 01/16/19 08:00 98.7 73 18 112/66 (81) 99 01/16/19 07:46 70 18 Nasal Cannula 2.0 28 01/16/19 07:46 99 Nasal Cannula 2.0 28 01/16/19 07:46 Nasal Cannula 2.0 28 01/16/19 04:06 98.2 70 18 110/62 (78) 100 01/15/19 23:52 99.6 94 19 128/85 (99) 96 01/15/19 20:50 70 120/51 01/15/19 20:07 Room Air 01/15/19 20:00 98.8 70 18 120/51 (74) 100 01/15/19 19:31 78 18 Nasal Cannula 2.0 28 01/15/19 19:29 98 Nasal Cannula 2.0 28 01/15/19 19:29 Nasal Cannula 2.0 28 01/15/19 16:00 98.8 82 19 131/70 (90) 98 01/15/19 12:00 97.8 77 16 150/71 (97) 99 General Appearance: no apparent distress, alert EENT: PERRL/EOMI, normal ENT inspection Neck: non-tender, normal alignment, supple, normal inspection, no JVD Rhythm: SB Cardiovascular: normal peripheral pulses, normal rate Respiratory/Chest: chest wall non-tender, lungs clear, normal breath sounds Abdomen: normal bowel sounds, non tender, soft, no organomegaly, no mass Extremities: normal range of motion, non-tender 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
--- NOTE | 2019-01-16 10:35 | GI Progress Note ---
Assessment/Plan Problems: (1) History of CVA (cerebrovascular accident) ICD Codes: Z86.73 - Personal history of transient ischemic attack (TIA), and cerebral infarction without residual deficits SNOMED: 563852587 (2) Severe anemia ICD Codes: D64.9 - Anemia, unspecified SNOMED: 416806911 (3) Abdominal pain ICD Codes: R10.9 - Unspecified abdominal pain SNOMED: 55893664 (4) GERD (gastroesophageal reflux disease) ICD Codes: K21.9 - Gastro-esophageal reflux disease without esophagitis SNOMED: 565383713 Status: stable Status Narrative Discussed with Dr. Mcguire Assessment/Plan SUMMARY OF FINDINGS: 1. Gastritis. 2. A 6 cm hiatal hernia. pending placement RECOMMENDATIONS: Follow up biopsy results and treat accordingly. >> Mild chronic gastritis. Negative for H. pylori negative negative for dysplasia or malignancy. BM biopsy>> leukemia>> fu oncology monitor H&H, prn transfusions. bowel regime ppi, H2B qhs Zofran as needed fu labs Outpatient hep C treatment dc planning The patient was seen and examined at bedside and all new and available data was reviewed in the patients chart. I agree with the above findings, impression and plan. (Patient seen earlier today. Signature stamp does not reflect patient encounter time.). - Richie Mcguire MD Subjective Subjective Denies any abdominal pain Denies any constipation or diarrhea Tolerating diet Denies any nausea vomiting Objective Last 24 Hour Vital Signs Date Time Temp Pulse Resp B/P (MAP) Pulse Ox O2 Delivery O2 Flow Rate FiO2 01/16/19 09:19 98.7 01/16/19 08:47 73 112/66 01/16/19 08:00 98.7 73 18 112/66 (81) 99 01/16/19 07:46 70 18 Nasal Cannula 2.0 28 01/16/19 07:46 99 Nasal Cannula 2.0 28 01/16/19 07:46 Nasal Cannula 2.0 28 01/16/19 04:06 98.2 70 18 110/62 (78) 100 01/15/19 23:52 99.6 94 19 128/85 (99) 96 01/15/19 20:50 70 120/51 01/15/19 20:07 Room Air 01/15/19 20:00 98.8 70 18 120/51 (74) 100 01/15/19 19:31 78 18 Nasal Cannula 2.0 28 01/15/19 19:29 98 Nasal Cannula 2.0 28 01/15/19 19:29 Nasal Cannula 2.0 28 01/15/19 16:00 98.8 82 19 131/70 (90) 98 01/15/19 12:00 97.8 77 16 150/71 (97) 99 Intake and Output 01/15/19 01/16/19 19:00 07:00 Intake Total 900 ml Output Total 100 ml Balance 900 ml -100 ml Other 900 ml Output Urine Total 100 ml Height (Feet): 5 Height (Inches): 5.00 Weight (Pounds): 141 General Appearance: WD/WN, no apparent distress, alert Cardiovascular: normal rate Respiratory/Chest: normal breath sounds, no respiratory distress Abdominal Exam: normal bowel sounds, non tender, soft Extremities: normal range of motion, non-tender Jason Gray NP Jan 16, 2019 10:35
[2019-01-16 12:00] VITALS: BP 119/68
--- NOTE | 2019-01-16 13:15 | Pulmonology Progress Note ---
Assessment/Plan Problems: (1) Advanced dementia (2) Myeloblastic leukemia (3) Severe thrombocytopenia (4) ACS (acute coronary syndrome) (5) Cardiomyopathy (6) HTN (hypertension) (7) Pacemaker (8) Hypothyroidism (9) CAD (coronary artery disease) (10) History of CVA (cerebrovascular accident) Assessment/Plan confused, cant make his own decisions, no new complains doing better, on fentNAYL PACH, pain better controlled early leukemia check electrolytes symptomatic treatment pain better controlled waiting for Medical application dc planning Subjective ROS Limited/Unobtainable: No Constitutional: Reports: no symptoms HEENT: Repors: no symptoms Allergies: Coded Allergies: No Known Allergies (Verified , 09/12/10) Objective Last 24 Hour Vital Signs Date Time Temp Pulse Resp B/P (MAP) Pulse Ox O2 Delivery O2 Flow Rate FiO2 01/16/19 12:00 98.3 70 18 119/68 (85) 98 01/16/19 09:19 98.7 01/16/19 09:00 Room Air 01/16/19 08:47 73 112/66 01/16/19 08:00 98.7 73 18 112/66 (81) 99 01/16/19 07:46 70 18 Nasal Cannula 2.0 28 01/16/19 07:46 99 Nasal Cannula 2.0 28 01/16/19 07:46 Nasal Cannula 2.0 28 01/16/19 04:06 98.2 70 18 110/62 (78) 100 01/15/19 23:52 99.6 94 19 128/85 (99) 96 01/15/19 20:50 70 120/51 01/15/19 20:07 Room Air 01/15/19 20:00 98.8 70 18 120/51 (74) 100 01/15/19 19:31 78 18 Nasal Cannula 2.0 28 01/15/19 19:29 98 Nasal Cannula 2.0 28 01/15/19 19:29 Nasal Cannula 2.0 28 01/15/19 16:00 98.8 82 19 131/70 (90) 98 Intake and Output 01/15/19 01/16/19 18:59 06:59 Intake Total 900 ml Output Total 100 ml Balance 900 ml -100 ml Other 900 ml Output Urine Total 100 ml Objective General Appearance: cachetic Lines, tubes and drains: peripheral HEENT: normocephalic, atraumatic Neck: non-tender, normal alignment Respiratory/Chest: chest wall non-tender, lungs clear Breasts: no masses Cardiovascular/Chest: normal peripheral pulses, normal rate Abdomen: normal bowel sounds, non tender Genitourinary/Rectal: normal genital exam Extremities: normal range of motion Skin Exam: normal pigmentation 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 Current Medications Medications (Trade) Dose Ordered Sig/Scout Route PRN Reason Start Time Stop Time Status Last Admin Dose Admin Albuterol/ Ipratropium (Albuterol/ Ipratropium) 3 ml Q4H PRN HHN Shortness of Breath 01/14/19 22:15 01/19/19 22:14 01/14/19 22:34 Atorvastatin Calcium (Lipitor) 40 mg QHS ORAL 12/19/18 21:00 01/18/19 20:59 01/15/19 20:49 Carvedilol (Coreg) 12.5 mg EVERY 12 HOURS ORAL 01/12/19 21:00 02/11/19 20:59 01/16/19 08:47 Docusate Sodium (Colace) 100 mg Q12H PRN ORAL Constipation 12/18/18 21:45 01/17/19 21:29 01/14/19 22:37 Fentanyl (Duragesic) 1 patch Q72H TDERMAL 01/10/19 18:00 01/17/19 17:59 01/13/19 17:07 Furosemide (Lasix) 20 mg DAILY ORAL 01/13/19 09:00 02/12/19 08:59 01/16/19 08:47 Miscellaneous Medication (fentaNYL Destruction) 1 ea Q72H MISC 01/01/19 17:59 01/31/19 17:58 01/13/19 17:07 Morphine Sulfate (Morphine Sulfate) 2 mg Q4H PRN IM For Pain 01/12/19 20:30 01/19/19 20:29 01/16/19 12:48 Nitroglycerin (Ntg) 0.4 mg Q5M PRN SL Prn Chest Pain 12/25/18 16:55 01/24/19 16:54 01/14/19 02:32 Polyethylene Glycol (Miralax) 17 gm DAILYPRN PRN ORAL Constipation 12/28/18 19:00 01/27/19 18:59 01/15/19 08:40 Chepe Luong MD Jan 16, 2019 13:15
[2019-01-16 16:00] VITALS: BP 122/70
--- NOTE | 2019-01-16 16:46 | General Progress Note ---
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 --> Hep panel and HIV negative, hep C++ --> US abd to evaluate for cirrhosis and hsm reviewed --> Peripheral smear ordered to evaluate for blasts /schistocytes is wnl --> abx and other meds have been reviewed --> ok for ppx if plt >50k w/ either heparin or lovenox --> Transfuse if Plt < 20k and fever, or if Plt < 10k without fever --->Plt trend 70-->65-->44-->86-->122-->88-->100k-->140k-->154k-->78k-->72k--> 110k-->117k # Reticulocytosis with elevated bilirubin that is indirect --> reviewed direct and indirect bilis again, trend could have liver disease --> liver US shows no significant cirrhosis --> evaluate as needed with gi team, recs apprecaited #. Chest pain, possible acute coronary syndrome. --> cards recs appreciated as well as pulm --> stress test prn # Hypertension. sbp goal <140 -- > as per cards recs # Dyslipidemia. on statin prn # Chf # Coronary artery disease. # Sick sinus syndrome, status pacemaker. # Acute E. coli UTI s/p abx # Hep C+++ needs op management # Chronic pain is on fentanyl patch prn The timing of this note does not necessarily reflect the time of the patient was seen. Greatly appreciate consultation! Subjective Constitutional: Denies: no symptoms, chills, diaphoresis, fever, malaise, weakness, other Cardiovascular: Denies: no symptoms, chest pain, edema, irregular heart rate, lightheadedness, palpitations, syncope, other Respiratory: Denies: no symptoms, cough, orthopnea, shortness of breath, SOB with excertion, SOB at rest, sputum, stridor, wheezing, other Gastrointestinal/Abdominal: Denies: no symptoms, abdomen distended, abdominal pain, black stools, tarry stools, blood in stool, constipated, diarrhea, difficulty swallowing, nausea, poor appetite, poor fluid intake, rectal bleeding , vomiting, other Genitourinary: Denies: no symptoms, burning, discharge, frequency, flank pain, hematuria, incontinence, pain, urgency, other Neurologic/Psychiatric: Denies: no symptoms, anxiety, depressed, emotional problems, headache, numbness, paresthesia, pre-existing deficit, seizure, tingling, tremors, weakness, other Endocrine: Denies: no symptoms, excessive sweating, flushing, intolerance to cold, intolerance to heat, increased hunger, increased thirst, increased urine, unexplained weight gain, unexplained weight loss, other Allergies: Coded Allergies: No Known Allergies (Verified , 09/12/10) Subjective 11/27: no events to report, no f/c 11/28: seen by bedside, plt 65, plan for EGD and bone marrow biopsy tomorrow 11/29: BM biopsy today, no acute distress. 11/30: Had BM biopsy yesterday and now in reverse isolation. hgb 7.5, will transfuse as needed. 12/01: seen by bedside, plt remains low, awaiting bone marrow biopsy results. 12/02: No acute distress, no chest pain, no shortness of breath, wbc 2.7, hgb 7.3 , plt 50, will transfuse as needed. S/P BM biopsy 11/29/18, Results pending 12/04: bone marrow biopsy completed, and show myeloblasts, c/w mds/leukemia, requires close surveillance 12/05: hgb 6.9, Had blood transfusion today, plt up trending, no events 12/06: Seen by bedside, overall improved, still has complaint of chest pain, plt trending up 12/07: Given 1 unit prbc, continues to c/o chest pain, seen by cards 12/08: seen by bedside, complains of pain, plt 106, no events 12/09: awake, comfortable, plt trending down at 69, no events 12/11: awake, comfortable, on NC, plt remains low at 70. 12/12: awake, comfortable, plt 65, no events 12/13: seen by bedside, awake , comfortable, pending labs. 12/14: awake, comfortable, hgb 7.9, monitor, will transfuse as needed, plt trending down at 44, 12/15: seen by bedside, awake, comfortable, hgb 7, will transfuse as needed, plt 82. 12/16: awake comfortable, no events, hgb trending up 12/18: seen by bedside, alert, oriented, no acute distress 12/19: no events noted, no fevers or chills, cbc has been reviewed, had blasts on smear this wknd 12/20: seen by bedside, awake, comfortable, hgb 7.4, will transfuse as needed. 12/21: No overnight events reported, comfortable, hgb 8.1 12/22: no events to report, remains nausous, the platelet count has improved on its own 12/23: awaiting placement to snf at this time, following with cards, pulm 12/24: on 2l nc, received morphine today by rn, complaining of pain 12/25: no events today, no f/c, labs reviewed 12/26: no events report, will get one unit prbc today, has been ordered 12/27: hgb stable/improved but is after transfusion, no events otherwise no fevers 12/28: no events, feeling overall better 12/29: this am comfortable and sleeping, no events, cbc reviewed, no issues noted 12/30: no events to report, no night sweats, anemia panel reviewed 01/02: awake, alert, bed in lowest position 01/03: dc to [facility] once bed opens up, no events o/n 01/04: comfortable in bed, counts are lower, monitor for reverse isolation as needed 01/05: labs pending, no issues, besides intermittent cp, seen by cards, morphine given by rn 01/06: labs have been reviewed and no f/c noted, eating 01/08: no events to report, cbc has been reviewed, no bleeding 01/09: is on fentanyl patch, no major bleeding, otherwise asymptomatic, comfortable 01/10: no fevers or chills, no weigt loss, comfortable today 01/11: no events noted, on fentanyl patch at this time 01/12: no events, comfortable, off asa and palvix 01/13: dc planning started, no fevers or chills reported 01/15: fevers or chills, no new labs, seen by Dr. Hunter 01/16: remains on fentanyl patch, dc planning is pending Objective Last 24 Hour Vital Signs Date Time Temp Pulse Resp B/P (MAP) Pulse Ox O2 Delivery O2 Flow Rate FiO2 01/16/19 16:00 97.9 74 18 122/70 (87) 98 01/16/19 13:18 98.3 01/16/19 12:00 98.3 70 18 119/68 (85) 98 01/16/19 09:00 Room Air 01/16/19 08:47 73 112/66 01/16/19 08:00 98.7 73 18 112/66 (81) 99 01/16/19 07:46 70 18 Nasal Cannula 2.0 01/16/19 07:46 99 Nasal Cannula 2.0 28 01/16/19 07:46 Nasal Cannula 2.0 28 01/16/19 04:06 98.2 70 18 110/62 (78) 100 01/15/19 23:52 99.6 94 19 128/85 (99) 96 01/15/19 20:50 70 120/51 01/15/19 20:07 Room Air 01/15/19 20:00 98.8 70 18 120/51 (74) 100 01/15/19 19:31 78 18 Nasal Cannula 2.0 28 01/15/19 19:29 98 Nasal Cannula 2.0 28 01/15/19 19:29 Nasal Cannula 2.0 28 Intake and Output 01/15/19 01/16/19 18:59 06:59 Intake Total 900 ml Output Total 100 ml Balance 900 ml -100 ml Other 900 ml Output Urine Total 100 ml Height (Feet): 5 Height (Inches): 5.00 Weight (Pounds): 141 Objective General: well appearing, nad, alert Head: normocephalic, atraumatic Eyes: b/l eye PERRL, bilateral eye EOMI ENT: hearing grossly normal, normal pharynx Neck: full range of motion, supple, no meningismus Respiratory: chest non-tender, lungs clear, normal BSs, NC++ CV: regular rate, rhythm, no murmur GI: normal bowel sounds, non tender, no mass MSK: back normal, normal range of motion Psychiatric: mood/affect normal Skin: warm/dry Jose Alberto España MD Jan 16, 2019 16:46
[2019-01-16] MEDS: fentaNYL Destruction MISC SCH (17:59)
[2019-01-16 20:00] VITALS: BP 150/71
[2019-01-16] MEDS: Atorvastatin 20mg tab ORAL SCH (21:06)
[2019-01-17] VITALS: BP 122/58
[2019-01-17] MEDS: Morphine Sulfate 2mg/ml Inj(IV/IM USE ONLY) IM PRN ×5 (01:03→21:37)
[2019-01-17 04:00] VITALS: BP 107/43
[2019-01-17] MEDS: Carvedilol 12.5mg tab ORAL SCH ×2 (08:29→21:38)
[2019-01-17 08:30] VITALS: BP 147/70
--- NOTE | 2019-01-17 10:33 | Pulmonology Progress Note ---
Assessment/Plan Problems: (1) Advanced dementia (2) Myeloblastic leukemia (3) Severe thrombocytopenia (4) ACS (acute coronary syndrome) (5) Cardiomyopathy (6) HTN (hypertension) (7) Pacemaker (8) Hypothyroidism (9) CAD (coronary artery disease) (10) History of CVA (cerebrovascular accident) Assessment/Plan confused, cant make his own decisions, no new complains doing better, on fentNAYL PACH, pain better controlled, renew fentanyl patch again early leukemia check electrolytes symptomatic treatment pain better controlled waiting for Medical application dc planning Subjective ROS Limited/Unobtainable: No Constitutional: Reports: no symptoms HEENT: Repors: no symptoms Allergies: Coded Allergies: No Known Allergies (Verified , 09/12/10) Objective Last 24 Hour Vital Signs Date Time Temp Pulse Resp B/P (MAP) Pulse Ox O2 Delivery O2 Flow Rate FiO2 01/17/19 09:00 Room Air 01/17/19 08:30 97.7 84 18 147/70 (95) 97 01/17/19 08:29 84 147/70 01/17/19 07:01 Nasal Cannula 2.0 28 01/17/19 06:59 99 Nasal Cannula 2.0 28 01/17/19 06:59 64 16 Nasal Cannula 2.0 28 01/17/19 04:00 98.4 66 17 107/43 (64) 98 01/17/19 00:00 98.9 66 17 122/58 (79) 100 01/16/19 21:07 87 150/71 01/16/19 21:00 Room Air 01/16/19 20:17 Room Air 21 01/16/19 20:17 99 Room Air 21 01/16/19 20:16 88 18 Room Air 21 01/16/19 20:00 98.6 87 20 150/71 (97) 99 01/16/19 19:13 97.9 01/16/19 17:29 97.9 01/16/19 16:00 97.9 74 18 122/70 (87) 98 01/16/19 12:00 98.3 70 18 119/68 (85) 98 Intake and Output 01/16/19 01/17/19 19:00 07:00 Intake Total 1000 ml Balance 1000 ml Intake Oral 1000 ml # Voids 7 2 Objective General Appearance: cachetic Lines, tubes and drains: peripheral HEENT: normocephalic, atraumatic Neck: non-tender, normal alignment Respiratory/Chest: chest wall non-tender, lungs clear Breasts: no masses Cardiovascular/Chest: normal peripheral pulses, normal rate Abdomen: normal bowel sounds, non tender Genitourinary/Rectal: normal genital exam Extremities: normal range of motion Skin Exam: normal pigmentation 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 Current Medications Medications (Trade) Dose Ordered Sig/Scout Route PRN Reason Start Time Stop Time Status Last Admin Dose Admin Albuterol/ Ipratropium (Albuterol/ Ipratropium) 3 ml Q4H PRN HHN Shortness of Breath 01/14/19 22:15 01/19/19 22:14 01/14/19 22:34 Atorvastatin Calcium (Lipitor) 40 mg QHS ORAL 12/19/18 21:00 01/18/19 20:59 01/16/19 21:06 Carvedilol (Coreg) 12.5 mg EVERY 12 HOURS ORAL 01/12/19 21:00 02/11/19 20:59 01/17/19 08:29 Docusate Sodium (Colace) 100 mg Q12H PRN ORAL Constipation 12/18/18 21:45 01/17/19 21:29 01/14/19 22:37 Fentanyl (Duragesic) 1 patch Q72H TDERMAL 01/19/19 18:00 01/26/19 17:59 Furosemide (Lasix) 20 mg DAILY ORAL 01/13/19 09:00 02/12/19 08:59 01/17/19 08:29 Miscellaneous Medication (fentaNYL Destruction) 1 ea Q72H MISC 01/01/19 17:59 01/31/19 17:58 01/13/19 17:07 Morphine Sulfate (Morphine Sulfate) 2 mg Q4H PRN IM For Pain 01/12/19 20:30 01/19/19 20:29 01/17/19 09:11 Nitroglycerin (Ntg) 0.4 mg Q5M PRN SL Prn Chest Pain 12/25/18 16:55 01/24/19 16:54 01/14/19 02:32 Polyethylene Glycol (Miralax) 17 gm DAILYPRN PRN ORAL Constipation 12/28/18 19:00 01/27/19 18:59 01/15/19 08:40 Chepe Luong MD Jan 17, 2019 10:33
--- NOTE | 2019-01-17 10:54 | GI Progress Note ---
Assessment/Plan Problems: (1) History of CVA (cerebrovascular accident) ICD Codes: Z86.73 - Personal history of transient ischemic attack (TIA), and cerebral infarction without residual deficits SNOMED: 938583186 (2) Severe anemia ICD Codes: D64.9 - Anemia, unspecified SNOMED: 005671634 (3) Abdominal pain ICD Codes: R10.9 - Unspecified abdominal pain SNOMED: 57517010 (4) GERD (gastroesophageal reflux disease) ICD Codes: K21.9 - Gastro-esophageal reflux disease without esophagitis SNOMED: 643784302 Status: stable Status Narrative Discussed with Dr. Mcguire Assessment/Plan SUMMARY OF FINDINGS: 1. Gastritis. 2. A 6 cm hiatal hernia. pending placement RECOMMENDATIONS: Follow up biopsy results and treat accordingly. >> Mild chronic gastritis. Negative for H. pylori negative negative for dysplasia or malignancy. BM biopsy>> leukemia>> fu oncology monitor H&H, prn transfusions. bowel regime ppi, H2B qhs Zofran as needed fu labs Outpatient hep C treatment dc planning The patient was seen and examined at bedside and all new and available data was reviewed in the patients chart. I agree with the above findings, impression and plan. (Patient seen earlier today. Signature stamp does not reflect patient encounter time.). - Richie Mcguire MD Subjective Gastrointestinal/Abdominal: Reports: no symptoms Subjective Denies any abdominal pain Denies any constipation or diarrhea Tolerating diet Denies any nausea vomiting Objective Last 24 Hour Vital Signs Date Time Temp Pulse Resp B/P (MAP) Pulse Ox O2 Delivery O2 Flow Rate FiO2 01/17/19 10:28 Nasal Cannula 3.0 01/17/19 09:00 Room Air 01/17/19 08:30 97.7 84 18 147/70 (95) 97 01/17/19 08:29 84 147/70 01/17/19 07:01 Nasal Cannula 2.0 28 01/17/19 06:59 99 Nasal Cannula 2.0 28 01/17/19 06:59 64 16 Nasal Cannula 2.0 28 01/17/19 04:00 98.4 66 17 107/43 (64) 98 01/17/19 00:00 98.9 66 17 122/58 (79) 100 01/16/19 21:07 87 150/71 01/16/19 21:00 Room Air 01/16/19 20:17 Room Air 21 01/16/19 20:17 99 Room Air 21 01/16/19 20:16 88 18 Room Air 21 01/16/19 20:00 98.6 87 20 150/71 (97) 99 01/16/19 19:13 97.9 01/16/19 17:29 97.9 01/16/19 16:00 97.9 74 18 122/70 (87) 98 01/16/19 12:00 98.3 70 18 119/68 (85) 98 Intake and Output 01/16/19 01/17/19 19:00 07:00 Intake Total 1000 ml Balance 1000 ml Intake Oral 1000 ml # Voids 7 2 Height (Feet): 5 Height (Inches): 5.00 Weight (Pounds): 140 General Appearance: WD/WN, no apparent distress, alert Cardiovascular: normal rate Respiratory/Chest: normal breath sounds, no respiratory distress Abdominal Exam: normal bowel sounds, non tender, soft Extremities: normal range of motion, non-tender Jason Gray PRODUCTION LINE OPERATOR Jan 17, 2019 10:54
[2019-01-17 12:00] VITALS: BP 113/51
--- NOTE | 2019-01-17 15:47 | General Progress Note ---
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 --> Hep panel and HIV negative, hep C++ --> US abd to evaluate for cirrhosis and hsm reviewed --> Peripheral smear ordered to evaluate for blasts /schistocytes is wnl --> abx and other meds have been reviewed --> ok for ppx if plt >50k w/ either heparin or lovenox --> Transfuse if Plt < 20k and fever, or if Plt < 10k without fever --->Plt trend 70-->65-->44-->86-->122-->88-->100k-->140k-->154k-->78k-->72k--> 110k-->117k # Reticulocytosis with elevated bilirubin that is indirect --> reviewed direct and indirect bilis again, trend could have liver disease --> liver US shows no significant cirrhosis --> evaluate as needed with gi team, recs apprecaited #. Chest pain, possible acute coronary syndrome. --> cards recs appreciated as well as pulm --> stress test prn # Hypertension. sbp goal <140 -- > as per cards recs # Dyslipidemia. on statin prn # Chf # Coronary artery disease. # Sick sinus syndrome, status pacemaker. # Acute E. coli UTI s/p abx # Hep C+++ needs op management # Chronic pain is on fentanyl patch prn The timing of this note does not necessarily reflect the time of the patient was seen. Greatly appreciate consultation! Subjective Constitutional: Denies: no symptoms, chills, diaphoresis, fever, malaise, weakness, other HEENT: Denies: no symptoms, eye pain, blurred vision, tearing, double vision, ear pain, ear discharge, nose pain, nose congestion, throat pain, throat swelling, mouth pain, mouth swelling, other Cardiovascular: Denies: no symptoms, chest pain, edema, irregular heart rate, lightheadedness, palpitations, syncope, other Respiratory: Denies: no symptoms, cough, orthopnea, shortness of breath, SOB with excertion, SOB at rest, sputum, stridor, wheezing, other Neurologic/Psychiatric: Denies: no symptoms, anxiety, depressed, emotional problems, headache, numbness, paresthesia, pre-existing deficit, seizure, tingling, tremors, weakness, other Endocrine: Denies: no symptoms, excessive sweating, flushing, intolerance to cold, intolerance to heat, increased hunger, increased thirst, increased urine, unexplained weight gain, unexplained weight loss, other Hematologic/Lymphatic: Denies: no symptoms, anemia, easy bleeding, easy bruising, other Allergies: Coded Allergies: No Known Allergies (Verified , 09/12/10) Subjective 11/27: no events to report, no f/c 11/28: seen by bedside, plt 65, plan for EGD and bone marrow biopsy tomorrow 11/29: BM biopsy today, no acute distress. 11/30: Had BM biopsy yesterday and now in reverse isolation. hgb 7.5, will transfuse as needed. 12/01: seen by bedside, plt remains low, awaiting bone marrow biopsy results. 12/02: No acute distress, no chest pain, no shortness of breath, wbc 2.7, hgb 7.3 , plt 50, will transfuse as needed. S/P BM biopsy 11/29/18, Results pending 12/04: bone marrow biopsy completed, and show myeloblasts, c/w mds/leukemia, requires close surveillance 12/05: hgb 6.9, Had blood transfusion today, plt up trending, no events 12/06: Seen by bedside, overall improved, still has complaint of chest pain, plt trending up 12/07: Given 1 unit prbc, continues to c/o chest pain, seen by cards 12/08: seen by bedside, complains of pain, plt 106, no events 12/09: awake, comfortable, plt trending down at 69, no events 12/11: awake, comfortable, on NC, plt remains low at 70. 12/12: awake, comfortable, plt 65, no events 12/13: seen by bedside, awake , comfortable, pending labs. 12/14: awake, comfortable, hgb 7.9, monitor, will transfuse as needed, plt trending down at 44, 12/15: seen by bedside, awake, comfortable, hgb 7, will transfuse as needed, plt 82. 12/16: awake comfortable, no events, hgb trending up 12/18: seen by bedside, alert, oriented, no acute distress 12/19: no events noted, no fevers or chills, cbc has been reviewed, had blasts on smear this wknd 12/20: seen by bedside, awake, comfortable, hgb 7.4, will transfuse as needed. 12/21: No overnight events reported, comfortable, hgb 8.1 12/22: no events to report, remains nausous, the platelet count has improved on its own 12/23: awaiting placement to snf at this time, following with cards, pulm 12/24: on 2l nc, received morphine today by rn, complaining of pain 12/25: no events today, no f/c, labs reviewed 12/26: no events report, will get one unit prbc today, has been ordered 12/27: hgb stable/improved but is after transfusion, no events otherwise no fevers 12/28: no events, feeling overall better 12/29: this am comfortable and sleeping, no events, cbc reviewed, no issues noted 12/30: no events to report, no night sweats, anemia panel reviewed 01/02: awake, alert, bed in lowest position 01/03: dc to [facility] once bed opens up, no events o/n 01/04: comfortable in bed, counts are lower, monitor for reverse isolation as needed 01/05: labs pending, no issues, besides intermittent cp, seen by cards, morphine given by rn 01/06: labs have been reviewed and no f/c noted, eating 01/08: no events to report, cbc has been reviewed, no bleeding 01/09: is on fentanyl patch, no major bleeding, otherwise asymptomatic, comfortable 01/10: no fevers or chills, no weigt loss, comfortable today 01/11: no events noted, on fentanyl patch at this time 01/12: no events, comfortable, off asa and palvix 01/13: dc planning started, no fevers or chills reported 01/15: fevers or chills, no new labs, seen by Dr. Hunter 01/16: remains on fentanyl patch, dc planning is pending 01/17: placement is still pending, is without fevers or chills, no night sweats noted Objective Last 24 Hour Vital Signs Date Time Temp Pulse Resp B/P (MAP) Pulse Ox O2 Delivery O2 Flow Rate FiO2 01/17/19 12:00 98.1 62 18 113/51 (71) 96 01/17/19 11:22 97.7 01/17/19 10:28 Nasal Cannula 3.0 01/17/19 09:00 Room Air 01/17/19 08:30 97.7 84 18 147/70 (95) 97 01/17/19 08:29 84 147/70 01/17/19 07:01 Nasal Cannula 2.0 28 01/17/19 06:59 99 Nasal Cannula 2.0 28 01/17/19 06:59 64 16 Nasal Cannula 2.0 28 01/17/19 04:00 98.4 66 17 107/43 (64) 98 01/17/19 00:00 98.9 66 17 122/58 (79) 100 01/16/19 21:07 87 150/71 01/16/19 21:00 Room Air 01/16/19 20:17 Room Air 21 01/16/19 20:17 99 Room Air 21 01/16/19 20:16 88 18 Room Air 21 01/16/19 20:00 98.6 87 20 150/71 (97) 99 01/16/19 19:13 97.9 01/16/19 16:00 97.9 74 18 122/70 (87) 98 Intake and Output 01/16/19 01/17/19 18:59 06:59 Intake Total 1000 ml Balance 1000 ml Intake Oral 1000 ml # Voids 7 2 Height (Feet): 5 Height (Inches): 5.00 Weight (Pounds): 140 Objective General: well appearing, nad, alert Head: normocephalic, atraumatic Eyes: b/l eye PERRL, bilateral eye EOMI ENT: hearing grossly normal, normal pharynx Neck: full range of motion, supple, no meningismus Respiratory: chest non-tender, lungs clear, normal BSs, NC++ CV: regular rate, rhythm, no murmur GI: normal bowel sounds, non tender, no mass MSK: back normal, normal range of motion Psychiatric: mood/affect normal Skin: warm/dry Jose Alberto España MD Jan 17, 2019 15:47
[2019-01-17 16:00] VITALS: BP 118/68
--- NOTE | 2019-01-17 16:10 | Internal Med Progress Note ---
Subjective Date of Service: Jan 17, 2019 Physician Name Nikhil West Attending Physician Abdias Hunter MD Current Medications Medications (Trade) Dose Ordered Sig/Scout Route PRN Reason Start Time Stop Time Status Last Admin Dose Admin Albuterol/ Ipratropium (Albuterol/ Ipratropium) 3 ml Q4H PRN HHN Shortness of Breath 01/14/19 22:15 01/19/19 22:14 01/14/19 22:34 Atorvastatin Calcium (Lipitor) 40 mg QHS ORAL 12/19/18 21:00 01/18/19 20:59 01/16/19 21:06 Carvedilol (Coreg) 12.5 mg EVERY 12 HOURS ORAL 01/12/19 21:00 02/11/19 20:59 01/17/19 08:29 Docusate Sodium (Colace) 100 mg Q12H PRN ORAL Constipation 12/18/18 21:45 01/17/19 21:29 01/14/19 22:37 Fentanyl (Duragesic) 1 patch Q72H TDERMAL 01/19/19 18:00 01/26/19 17:59 Furosemide (Lasix) 20 mg DAILY ORAL 01/13/19 09:00 02/12/19 08:59 01/17/19 08:29 Miscellaneous Medication (fentaNYL Destruction) 1 ea Q72H MISC 01/01/19 17:59 01/31/19 17:58 01/13/19 17:07 Morphine Sulfate (Morphine Sulfate) 2 mg Q4H PRN IM For Pain 01/12/19 20:30 01/19/19 20:29 01/17/19 09:11 Nitroglycerin (Ntg) 0.4 mg Q5M PRN SL Prn Chest Pain 12/25/18 16:55 01/24/19 16:54 01/14/19 02:32 Polyethylene Glycol (Miralax) 17 gm DAILYPRN PRN ORAL Constipation 12/28/18 19:00 01/27/19 18:59 01/15/19 08:40 Allergies: Coded Allergies: No Known Allergies (Verified , 09/12/10) ROS Limited/Unobtainable: Yes Subjective 78 YO M admitted with chest pain. Now pancytopenia and UTI. Cover for Int Med- Dr Hunter. Objective Last Vital Signs Date Time Temp Pulse Resp B/P (MAP) Pulse Ox O2 Delivery O2 Flow Rate FiO2 01/17/19 12:00 98.1 62 18 113/51 (71) 96 01/17/19 10:28 Nasal Cannula 3.0 01/17/19 07:01 28 Intake and Output 01/16/19 01/17/19 18:59 06:59 Intake Total 1000 ml Balance 1000 ml Intake Oral 1000 ml # Voids 7 2 Objective PHYSICAL EXAMINATION: GENERAL: The patient awake, responsive, no acute distress. HEAD AND NECK: Pupils are equal and reactive to light. Extraocular movements are intact. Neck was supple. No JVD LUNGS: Good air entry. No wheeze or rales. HEART: S1, S2. Distant heart sounds. No murmur or gallops. Pacemaker in left-sided chest wall. ABDOMEN: Soft, nondistended, nontender. EXTREMITIES: No cyanosis, clubbing, edema. Varicose veins, bilateral lower extremities. NEUROLOGIC: Cranial nerves II through XII grossly intact. Motor is 5/5 in all extremities. Gait is intact. RECTAL: Refused and deferred. GENITOURINARY: Refused and deferred. PSYCHIATRIC: Mood and affect is depressed. Assessment/Plan Assessment/Plan ASSESSMENT: 1. Chest pain, possible acute coronary syndrome. 2. Hypertension. 3. Dyslipidemia. 4. Congestive heart failure. 5. Coronary artery disease. 6. Sick sinus syndrome, status pacemaker. 7. UTI. 8. Pancytopenia; S/P transfusion 6 units PRBC total-Severe anemia, Thrombocytopenia and leukopenia-?leukemia? see onc note. PLAN: Admit the patient to telemetry. Discussed case with Dr. Gee from Cardiology Electrophysiology. Await cardiac nuclear stress test-outpatient Dr. Luong, Pulmonary Critical Care. Urine cult=E. Coli. S/P Rocephin. DVT prophylaxis, heparin subcutaneous. Code status, Full Code. The patient is expected to be in the hospital greater than 2 days Discharge paln: [facility] See Hematology consult-?acute myelocytic leukemia? Discharge to [facility]-see social work note Nikhil West MD Jan 17, 2019 16:10
[2019-01-17 20:00] VITALS: BP 127/65
[2019-01-17] MEDS: Atorvastatin 20mg tab ORAL SCH (21:38)
--- NOTE | 2019-01-17 22:05 | Cardiology Progress Note ---
Assessment/Plan Status: stable Assessment/Plan Assessment/Plan 1. CP and Hx of CABG. Likely due to severe anemia. Ruled out NC. 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 Off Aspirin and Plavix for thrombocytopenia 2. Cardiomyopathy. EF now 55%. On Coreg 12.5 mg bid and Lasix 20 daily [address] [facility] atriobiventricular defibrillator. Interrogated and showed Nl Fx 4. Severe anemia, S/P multiple PRBC and platelet transfusions . 5. Pancytopenia. Off Aspirin and PLavix S/P platelet and PRBC transfusion. BM biopsy 11/29/[address] Stock 6. Placement Subjective Cardiovascular: Reports: no symptoms Respiratory: Reports: no symptoms Gastrointestinal/Abdominal: Reports: no symptoms Genitourinary: Reports: no symptoms Subjective Patient alert x2, on room air, no sign of distress and shortness of breath; no sign of chest pain, pain controlled, awaiting dispo Coverage for [place] Objective Last 24 Hour Vital Signs Date Time Temp Pulse Resp B/P (MAP) Pulse Ox O2 Delivery O2 Flow Rate FiO2 01/17/19 21:38 79 118/68 01/17/19 20:00 70 18 Room Air 21 01/17/19 20:00 98 Room Air 21 01/17/19 20:00 Room Air 21 01/17/19 16:00 98.4 79 18 118/68 (85) 93 01/17/19 12:00 98.1 62 18 113/51 (71) 96 01/17/19 11:22 97.7 01/17/19 10:28 Nasal Cannula 3.0 01/17/19 09:00 Room Air 01/17/19 08:30 97.7 84 18 147/70 (95) 97 01/17/19 08:29 84 147/70 01/17/19 07:01 Nasal Cannula 2.0 28 01/17/19 06:59 99 Nasal Cannula 2.0 28 01/17/19 06:59 64 16 Nasal Cannula 2.0 28 01/17/19 04:00 98.4 66 17 107/43 (64) 98 01/17/19 00:00 98.9 66 17 122/58 (79) 100 General Appearance: no apparent distress, alert EENT: PERRL/EOMI, normal ENT inspection, TMs normal, pharynx normal Neck: non-tender, normal alignment, supple, normal inspection, no JVD Rhythm: NSR Cardiovascular: normal peripheral pulses, normal rate, regular rhythm Respiratory/Chest: chest wall non-tender, lungs clear, normal breath sounds, no respiratory distress, no accessory muscle use Abdomen: normal bowel sounds, non tender, soft, no organomegaly, no mass Extremities: normal range of motion, non-tender, normal inspection Neurologic: c++ professor II-XII grossly normal, no motor/sensory deficits Intake and Output 01/16/19 01/17/19 18:59 06:59 Intake Total 1000 ml Balance 1000 ml Intake Oral 1000 ml # Voids 7 2 Yair Damon MD Jan 17, 2019 22:05
[2019-01-18] VITALS: BP 129/61
[2019-01-18 04:00] VITALS: BP 132/62
[2019-01-18] MEDS: Morphine Sulfate 2mg/ml Inj(IV/IM USE ONLY) IM PRN ×5 (05:40→22:21)
[2019-01-18 08:00] VITALS: BP 112/60
[2019-01-18] MEDS: Carvedilol 12.5mg tab ORAL SCH ×2 (08:46→21:51)
--- NOTE | 2019-01-18 10:58 | GI Progress Note ---
Assessment/Plan Problems: (1) History of CVA (cerebrovascular accident) ICD Codes: Z86.73 - Personal history of transient ischemic attack (TIA), and cerebral infarction without residual deficits SNOMED: 057351638 (2) Severe anemia ICD Codes: D64.9 - Anemia, unspecified SNOMED: 001716995 (3) Abdominal pain ICD Codes: R10.9 - Unspecified abdominal pain SNOMED: 44617473 (4) GERD (gastroesophageal reflux disease) ICD Codes: K21.9 - Gastro-esophageal reflux disease without esophagitis SNOMED: 879093336 Status: stable Status Narrative Discussed with Dr. Mcguire. Assessment/Plan SUMMARY OF FINDINGS: 1. Gastritis. 2. A 6 cm hiatal hernia. pending placement RECOMMENDATIONS: Follow up biopsy results and treat accordingly. >> Mild chronic gastritis. Negative for H. pylori negative negative for dysplasia or malignancy. BM biopsy>> leukemia>> fu oncology monitor H&H, prn transfusions. bowel regime ppi, H2B qhs Zofran as needed fu labs Outpatient hep C treatment dc planning The patient was seen and examined at bedside and all new and available data was reviewed in the patients chart. I agree with the above findings, impression and plan. (Patient seen earlier today. Signature stamp does not reflect patient encounter time.). - Richie Mcguire MD Subjective Subjective Denies any abdominal pain Denies any constipation or diarrhea Tolerating diet Denies any nausea vomiting Objective Last 24 Hour Vital Signs Date Time Temp Pulse Resp B/P (MAP) Pulse Ox O2 Delivery O2 Flow Rate FiO2 01/18/19 09:00 Nasal Cannula 3.0 01/18/19 08:46 82 112/60 01/18/19 08:24 82 18 Room Air 21 01/18/19 08:24 Room Air 21 01/18/19 08:24 97 Room Air 21 01/18/19 08:00 97.9 60 16 112/60 (77) 95 01/18/19 06:10 98.7 01/18/19 04:00 98.7 67 18 132/62 (85) 95 01/18/19 00:00 98.3 62 17 129/61 (83) 94 01/17/19 21:38 79 118/68 01/17/19 21:00 Nasal Cannula 3.0 01/17/19 20:00 70 18 Room Air 21 01/17/19 20:00 98.0 65 18 127/65 (85) 95 01/17/19 20:00 98 Room Air 21 01/17/19 20:00 Room Air 21 01/17/19 16:00 98.4 79 18 118/68 (85) 93 01/17/19 12:00 98.1 62 18 113/51 (71) 96 Intake and Output 01/17/19 01/18/19 19:00 07:00 Intake Total 840 ml 250 ml Output Total 600 ml Balance 240 ml 250 ml Intake Oral 840 ml 250 ml Output Urine Total 600 ml # Voids 2 # Bowel Movements 1 Height (Feet): 5 Height (Inches): 5.00 Weight (Pounds): 140 General Appearance: WD/WN, no apparent distress, alert Cardiovascular: normal rate Respiratory/Chest: normal breath sounds, no respiratory distress Abdominal Exam: normal bowel sounds, non tender, soft Extremities: normal range of motion, non-tender Jason Gray NP Jan 18, 2019 10:58
[2019-01-18 12:00] VITALS: BP 126/58
[2019-01-18 16:00] VITALS: BP 114/58
--- NOTE | 2019-01-18 18:05 | General Progress Note ---
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+++ --> bone marrow bipsy/aspiration report reviewed and concerning for LEUKEMIA with 8.7% myeloblasts --> Continue to monitor for improvement, trend cbc --> HIV is negative, but hep C++ --> US abd ordered to r/o cirrhosis and hsm and is negative for those --> reverse isolation if ANC is <2000 --> Give neupogen if ANC <1000 --> Transfuse if hgb <7, with 1 unit prbc --> hospice v treatment as per pcp recommendations and referral --> Hgb trend: 9-->8.7-->7.9-->7-->7.6-->7.4->8.1-->7.7-->6.5-->8.3-->7.7-->7.5- ->7.4-->8.9-->7.4 --> no increase in mass/lymphadeopathy on exam # Thrombocytopenia - potential causes multifactorial, evaluate liver and viral etiologies to begin, also could be related to underlying medications patient has received. --> Hep panel and HIV negative, hep C++ --> US abd to evaluate for cirrhosis and hsm reviewed --> Peripheral smear ordered to evaluate for blasts /schistocytes is wnl --> abx and other meds have been reviewed --> ok for ppx if plt >50k w/ either heparin or lovenox --> Transfuse if Plt < 20k and fever, or if Plt < 10k without fever --->Plt trend 70-->65-->44-->86-->122-->88-->100k-->140k-->154k-->78k-->72k--> 110k-->117k # Reticulocytosis with elevated bilirubin that is indirect --> reviewed direct and indirect bilis again, trend could have liver disease --> liver US shows no significant cirrhosis --> evaluate as needed with gi team, recs apprecaited #. Chest pain, possible acute coronary syndrome. --> cards recs appreciated as well as pulm --> stress test prn # Hypertension. sbp goal <140 -- > as per cards recs # Dyslipidemia. on statin prn # Chf # Coronary artery disease. # Sick sinus syndrome, status pacemaker. # Acute E. coli UTI s/p abx # Hep C+++ needs op management # Chronic pain is on fentanyl patch prn The timing of this note does not necessarily reflect the time of the patient was seen. Greatly appreciate consultation! Subjective Constitutional: Denies: no symptoms, chills, diaphoresis, fever, malaise, weakness, other HEENT: Denies: no symptoms, eye pain, blurred vision, tearing, double vision, ear pain, ear discharge, nose pain, nose congestion, throat pain, throat swelling, mouth pain, mouth swelling, other Respiratory: Denies: no symptoms, cough, orthopnea, shortness of breath, SOB with excertion, SOB at rest, sputum, stridor, wheezing, other Gastrointestinal/Abdominal: Denies: no symptoms, abdomen distended, abdominal pain, black stools, tarry stools, blood in stool, constipated, diarrhea, difficulty swallowing, nausea, poor appetite, poor fluid intake, rectal bleeding , vomiting, other Genitourinary: Denies: no symptoms, burning, discharge, frequency, flank pain, hematuria, incontinence, pain, urgency, other Neurologic/Psychiatric: Denies: no symptoms, anxiety, depressed, emotional problems, headache, numbness, paresthesia, pre-existing deficit, seizure, tingling, tremors, weakness, other Endocrine: Denies: no symptoms, excessive sweating, flushing, intolerance to cold, intolerance to heat, increased hunger, increased thirst, increased urine, unexplained weight gain, unexplained weight loss, other Allergies: Coded Allergies: No Known Allergies (Verified , 09/12/10) Subjective 11/27: no events to report, no f/c 11/28: seen by bedside, plt 65, plan for EGD and bone marrow biopsy tomorrow 11/29: BM biopsy today, no acute distress. 11/30: Had BM biopsy yesterday and now in reverse isolation. hgb 7.5, will transfuse as needed. 12/01: seen by bedside, plt remains low, awaiting bone marrow biopsy results. 12/02: No acute distress, no chest pain, no shortness of breath, wbc 2.7, hgb 7.3 , plt 50, will transfuse as needed. S/P BM biopsy 11/29/18, Results pending 12/04: bone marrow biopsy completed, and show myeloblasts, c/w mds/leukemia, requires close surveillance 12/05: hgb 6.9, Had blood transfusion today, plt up trending, no events 12/06: Seen by bedside, overall improved, still has complaint of chest pain, plt trending up 12/07: Given 1 unit prbc, continues to c/o chest pain, seen by cards 12/08: seen by bedside, complains of pain, plt 106, no events 12/09: awake, comfortable, plt trending down at 69, no events 12/11: awake, comfortable, on NC, plt remains low at 70. 12/12: awake, comfortable, plt 65, no events 12/13: seen by bedside, awake , comfortable, pending labs. 12/14: awake, comfortable, hgb 7.9, monitor, will transfuse as needed, plt trending down at 44, 12/15: seen by bedside, awake, comfortable, hgb 7, will transfuse as needed, plt 82. 12/16: awake comfortable, no events, hgb trending up 12/18: seen by bedside, alert, oriented, no acute distress 12/19: no events noted, no fevers or chills, cbc has been reviewed, had blasts on smear this wknd 12/20: seen by bedside, awake, comfortable, hgb 7.4, will transfuse as needed. 12/21: No overnight events reported, comfortable, hgb 8.1 12/22: no events to report, remains nausous, the platelet count has improved on its own 12/23: awaiting placement to snf at this time, following with cards, pulm 12/24: on 2l nc, received morphine today by rn, complaining of pain 12/25: no events today, no f/c, labs reviewed 12/26: no events report, will get one unit prbc today, has been ordered 12/27: hgb stable/improved but is after transfusion, no events otherwise no fevers 12/28: no events, feeling overall better 12/29: this am comfortable and sleeping, no events, cbc reviewed, no issues noted 12/30: no events to report, no night sweats, anemia panel reviewed 01/02: awake, alert, bed in lowest position 01/03: dc to [facility] once bed opens up, no events o/n 01/04: comfortable in bed, counts are lower, monitor for reverse isolation as needed 01/05: labs pending, no issues, besides intermittent cp, seen by cards, morphine given by rn 01/06: labs have been reviewed and no f/c noted, eating 01/08: no events to report, cbc has been reviewed, no bleeding 01/09: is on fentanyl patch, no major bleeding, otherwise asymptomatic, comfortable 01/10: no fevers or chills, no weigt loss, comfortable today 01/11: no events noted, on fentanyl patch at this time 01/12: no events, comfortable, off asa and palvix 01/13: dc planning started, no fevers or chills reported 01/15: fevers or chills, no new labs, seen by Dr. Hunter 01/16: remains on fentanyl patch, dc planning is pending 01/17: placement is still pending, is without fevers or chills, no night sweats noted 01/18: no events noted overnight, feelijng better Objective Last 24 Hour Vital Signs Date Time Temp Pulse Resp B/P (MAP) Pulse Ox O2 Delivery O2 Flow Rate FiO2 01/18/19 16:00 98.7 69 18 114/58 (76) 99 01/18/19 14:48 97.9 01/18/19 12:00 97.9 64 16 126/58 (80) 100 01/18/19 09:00 Nasal Cannula 3.0 01/18/19 08:46 82 112/60 01/18/19 08:24 82 18 Room Air 21 01/18/19 08:24 Room Air 21 01/18/19 08:24 97 Room Air 21 01/18/19 08:00 97.9 60 16 112/60 (77) 95 4/17/19 06:10 98.7 01/18/19 04:00 98.7 67 18 132/62 (85) 95 01/18/19 00:00 98.3 62 17 129/61 (83) 94 01/17/19 21:38 79 118/68 01/17/19 21:00 Nasal Cannula 3.0 01/17/19 20:00 70 18 Room Air 21 01/17/19 20:00 98.0 65 18 127/65 (85) 95 01/17/19 20:00 98 Room Air 21 01/17/19 20:00 Room Air 21 Intake and Output 01/17/19 01/18/19 19:00 07:00 Intake Total 840 ml 250 ml Output Total 600 ml Balance 240 ml 250 ml Intake Oral 840 ml 250 ml Output Urine Total 600 ml # Voids 2 # Bowel Movements 1 Height (Feet): 5 Height (Inches): 5.00 Weight (Pounds): 140 Objective General: well appearing, nad, alert Head: normocephalic, atraumatic Eyes: b/l eye PERRL, bilateral eye EOMI ENT: hearing grossly normal, normal pharynx Neck: full range of motion, supple, no meningismus Respiratory: chest non-tender, lungs clear, normal BSs, NC++ CV: regular rate, rhythm, no murmur GI: normal bowel sounds, non tender, no mass MSK: back normal, normal range of motion Psychiatric: mood/affect normal Skin: warm/dry Jose Alberto España MD Jan 18, 2019 18:05
--- NOTE | 2019-01-18 18:57 | Internal Med Progress Note ---
Subjective Date of Service: Jan 18, 2019 Physician Name Nikhil West Attending Physician Abdias Hunter MD Current Medications Medications (Trade) Dose Ordered Sig/Scout Route PRN Reason Start Time Stop Time Status Last Admin Dose Admin Albuterol/ Ipratropium (Albuterol/ Ipratropium) 3 ml Q4H PRN HHN Shortness of Breath 01/14/19 22:15 01/19/19 22:14 01/14/19 22:34 Atorvastatin Calcium (Lipitor) 40 mg QHS ORAL 12/19/18 21:00 01/18/19 20:59 01/17/19 21:38 Carvedilol (Coreg) 12.5 mg EVERY 12 HOURS ORAL 01/12/19 21:00 02/11/19 20:59 01/18/19 08:46 Fentanyl (Duragesic) 1 patch Q72H TDERMAL 01/19/19 18:00 01/26/19 17:59 Furosemide (Lasix) 20 mg DAILY ORAL 01/13/19 09:00 02/12/19 08:59 01/18/19 08:46 Miscellaneous Medication (fentaNYL Destruction) 1 ea Q72H MISC 01/01/19 17:59 01/31/19 17:58 01/13/19 17:07 Morphine Sulfate (Morphine Sulfate) 2 mg Q4H PRN IM For Pain 01/18/19 14:00 01/25/19 13:59 01/18/19 18:18 Nitroglycerin (Ntg) 0.4 mg Q5M PRN SL Prn Chest Pain 12/25/18 16:55 01/24/19 16:54 01/14/19 02:32 Polyethylene Glycol (Miralax) 17 gm DAILYPRN PRN ORAL Constipation 12/28/18 19:00 01/27/19 18:59 01/15/19 08:40 Allergies: Coded Allergies: No Known Allergies (Verified , 09/12/10) ROS Limited/Unobtainable: No Constitutional: Reports: no symptoms HEENT: Reports: no symptoms Cardiovascular: Reports: no symptoms Respiratory: Reports: no symptoms Gastrointestinal/Abdominal: Reports: no symptoms Genitourinary: Reports: no symptoms Neurologic/Psychiatric: Reports: no symptoms Subjective 78 YO M admitted with chest pain. Now pancytopenia and UTI. Cover for Int Med- Dr Hunter. Objective Last Vital Signs Date Time Temp Pulse Resp B/P (MAP) Pulse Ox O2 Delivery O2 Flow Rate FiO2 01/18/19 18:48 98.7 01/18/19 16:00 69 18 114/58 (76) 99 01/18/19 09:00 Nasal Cannula 3.0 01/18/19 08:24 21 Intake and Output 01/17/19 01/18/19 18:59 06:59 Intake Total 840 ml 250 ml Output Total 600 ml Balance 240 ml 250 ml Intake Oral 840 ml 250 ml Output Urine Total 600 ml # Voids 2 # Bowel Movements 1 Objective PHYSICAL EXAMINATION: GENERAL: The patient awake, responsive, no acute distress. HEAD AND NECK: Pupils are equal and reactive to light. Extraocular movements are intact. Neck was supple. No JVD LUNGS: Good air entry. No wheeze or rales. HEART: S1, S2. Distant heart sounds. No murmur or gallops. Pacemaker in left-sided chest wall. ABDOMEN: Soft, nondistended, nontender. EXTREMITIES: No cyanosis, clubbing, edema. Varicose veins, bilateral lower extremities. NEUROLOGIC: Cranial nerves II through XII grossly intact. Motor is 5/5 in all extremities. Gait is intact. RECTAL: Refused and deferred. GENITOURINARY: Refused and deferred. PSYCHIATRIC: Mood and affect is depressed. Assessment/Plan Assessment/Plan ASSESSMENT: 1. Chest pain, possible acute coronary syndrome. 2. Hypertension. 3. Dyslipidemia. 4. Congestive heart failure. 5. Coronary artery disease. 6. Sick sinus syndrome, status pacemaker. 7. UTI. 8. Pancytopenia; S/P transfusion 6 units PRBC total-Severe anemia, Thrombocytopenia and leukopenia-?leukemia? see onc note. PLAN: Admit the patient to telemetry. Discussed case with Dr. Gee from Cardiology Electrophysiology. Await cardiac nuclear stress test-outpatient Dr. Luong, Pulmonary Critical Care. Urine cult=E. Coli. S/P Rocephin. DVT prophylaxis, heparin subcutaneous. Code status, Full Code. The patient is expected to be in the hospital greater than 2 days Discharge paln: [facility] See Hematology consult-?acute myelocytic leukemia? Discharge to [facility]-see social work note Nikhil West MD Jan 18, 2019 18:57
[2019-01-18 20:00] VITALS: BP 139/62
--- NOTE | 2019-01-18 21:49 | Cardiology Progress Note ---
Assessment/Plan Status: stable Assessment/Plan Assessment/Plan 1. CP and Hx of CABG. Likely due to severe anemia. Ruled out OK. 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 Off Aspirin and Plavix for thrombocytopenia 2. Cardiomyopathy. EF now 55%. On Coreg 12.5 mg bid and Lasix 20 daily 3[address] [facility] atriobiventricular defibrillator. Interrogated and showed Nl Fx 4. Severe anemia, S/P multiple PRBC and platelet transfusions . 5. Pancytopenia. Off Aspirin and PLavix S/P platelet and PRBC transfusion. BM biopsy 11/29/[address] Stock 6. Placement Subjective Cardiovascular: Reports: no symptoms Respiratory: Reports: no symptoms Gastrointestinal/Abdominal: Reports: no symptoms Genitourinary: Reports: no symptoms Subjective Patient alert x2, on room air, no sign of distress and shortness of breath; no sign of chest pain, pain controlled, awaiting dispo Coverage for [place] Objective Last 24 Hour Vital Signs Date Time Temp Pulse Resp B/P (MAP) Pulse Ox O2 Delivery O2 Flow Rate FiO2 01/18/19 20:04 Nasal Cannula 3.0 01/18/19 20:00 62 18 Nasal Cannula 3.0 32 01/18/19 20:00 98.2 68 18 139/62 (87) 100 01/18/19 20:00 Nasal Cannula 3.0 32 01/18/19 20:00 99 Nasal Cannula 3.0 32 01/18/19 18:48 98.7 01/18/19 16:00 98.7 69 18 114/58 (76) 99 01/18/19 12:00 97.9 64 16 126/58 (80) 100 01/18/19 09:00 Nasal Cannula 3.0 01/18/19 08:46 82 112/60 01/18/19 08:24 82 18 Room Air 21 01/18/19 08:24 Room Air 21 01/18/19 08:24 97 Room Air 21 01/18/19 08:00 97.9 60 16 112/60 (77) 95 01/18/19 06:10 98.7 01/18/19 04:00 98.7 67 18 132/62 (85) 95 01/18/19 00:00 98.3 62 17 129/61 (83) 94 General Appearance: no apparent distress, alert EENT: PERRL/EOMI, normal ENT inspection, TMs normal, pharynx normal Neck: non-tender, normal alignment, supple, normal inspection, no JVD Rhythm: NSR Cardiovascular: normal peripheral pulses, normal rate, regular rhythm, no gallop/murmur Respiratory/Chest: chest wall non-tender, lungs clear, normal breath sounds, no respiratory distress Abdomen: normal bowel sounds, non tender, soft, no organomegaly, no mass Extremities: normal range of motion, non-tender, normal inspection 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
[2019-01-19] VITALS: BP 145/61
[2019-01-19] MEDS: Morphine Sulfate 2mg/ml Inj(IV/IM USE ONLY) IM PRN ×4 (02:53→20:24)
[2019-01-19 04:00] VITALS: BP 117/50
[2019-01-19 08:00] VITALS: BP 108/50
[2019-01-19] MEDS: Carvedilol 12.5mg tab ORAL SCH ×2 (08:55→20:24)
--- NOTE | 2019-01-19 10:40 | GI Progress Note ---
Assessment/Plan Problems: (1) History of CVA (cerebrovascular accident) ICD Codes: Z86.73 - Personal history of transient ischemic attack (TIA), and cerebral infarction without residual deficits SNOMED: 121400348 (2) Severe anemia ICD Codes: D64.9 - Anemia, unspecified SNOMED: 146592371 (3) Abdominal pain ICD Codes: R10.9 - Unspecified abdominal pain SNOMED: 82574977 (4) GERD (gastroesophageal reflux disease) ICD Codes: K21.9 - Gastro-esophageal reflux disease without esophagitis SNOMED: 491103702 Status: stable, unchanged Status Narrative Discussed with Dr. baxter Assessment/Plan SUMMARY OF FINDINGS: 1. Gastritis. 2. A 6 cm hiatal hernia. pending placement RECOMMENDATIONS: Follow up biopsy results and treat accordingly. >> Mild chronic gastritis. Negative for H. pylori negative negative for dysplasia or malignancy. BM biopsy>> leukemia>> fu oncology monitor H&H, prn transfusions. bowel regime ppi, H2B qhs Zofran as needed fu labs Outpatient hep C treatment dc planning The patient was seen and examined at bedside and all new and available data was reviewed in the patients chart. I agree with the above findings, impression and plan. (Patient seen earlier today. Signature stamp does not reflect patient encounter time.). - Richie Mcguire MD Subjective Subjective Denies any abdominal pain Denies any constipation or diarrhea Tolerating diet Denies any nausea vomiting Objective Last 24 Hour Vital Signs Date Time Temp Pulse Resp B/P (MAP) Pulse Ox O2 Delivery O2 Flow Rate FiO2 01/19/19 09:25 98.7 01/19/19 09:00 Nasal Cannula 3.0 01/19/19 08:55 70 108/50 01/19/19 08:00 98.7 70 18 108/50 (69) 95 01/19/19 07:41 70 19 Room Air 21 01/19/19 07:40 Room Air 21 01/19/19 07:40 99 Room Air 21 01/19/19 04:00 98.2 61 18 117/50 (72) 100 01/19/19 00:00 98.2 67 18 145/61 (89) 100 01/18/19 21:51 62 139/62 01/18/19 20:04 Nasal Cannula 3.0 01/18/19 20:00 62 18 Nasal Cannula 3.0 32 01/18/19 20:00 98.2 68 18 139/62 (87) 100 01/18/19 20:00 Nasal Cannula 3.0 32 01/18/19 20:00 99 Nasal Cannula 3.0 32 01/18/19 16:00 98.7 69 18 114/58 (76) 99 01/18/19 12:00 97.9 64 16 126/58 (80) 100 Intake and Output 01/18/19 01/19/19 18:59 06:59 Intake Total 1000 ml Balance 1000 ml Intake Oral 1000 ml # Voids 3 3 # Bowel Movements 1 Height (Feet): 5 Height (Inches): 5.00 Weight (Pounds): 139 General Appearance: WD/WN, no apparent distress, alert Cardiovascular: normal rate Respiratory/Chest: normal breath sounds, no respiratory distress Abdominal Exam: normal bowel sounds, non tender, soft Extremities: normal range of motion, non-tender Jason Gray NP Jan 19, 2019 10:40
[2019-01-19 12:00] VITALS: BP 114/48
--- NOTE | 2019-01-19 12:48 | Pulmonology Progress Note ---
Assessment/Plan Problems: (1) Advanced dementia (2) Myeloblastic leukemia (3) Severe thrombocytopenia (4) ACS (acute coronary syndrome) (5) Cardiomyopathy (6) HTN (hypertension) (7) Pacemaker (8) Hypothyroidism (9) CAD (coronary artery disease) (10) History of CVA (cerebrovascular accident) Assessment/Plan confused, cant make his own decisions, no new complains doing better, on fentNAYL PACH, pain better controlled, renew fentanyl patch again early leukemia check electrolytes symptomatic treatment pain better controlled waiting for Medical application wants some physical therapy Subjective ROS Limited/Unobtainable: No Constitutional: Reports: no symptoms HEENT: Repors: no symptoms Respiratory: Reports: no symptoms Allergies: Coded Allergies: No Known Allergies (Verified , 09/12/10) Objective Last 24 Hour Vital Signs Date Time Temp Pulse Resp B/P (MAP) Pulse Ox O2 Delivery O2 Flow Rate FiO2 01/19/19 12:00 98.3 64 20 114/48 (70) 100 01/19/19 09:25 98.7 01/19/19 09:00 Nasal Cannula 3.0 01/19/19 08:55 70 108/50 01/19/19 08:00 98.7 70 18 108/50 (69) 95 01/19/19 07:41 70 19 Room Air 21 01/19/19 07:40 Room Air 21 01/19/19 07:40 99 Room Air 21 01/19/19 04:00 98.2 61 18 117/50 (72) 100 01/19/19 00:00 98.2 67 18 145/61 (89) 100 01/18/19 21:51 62 139/62 01/18/19 20:04 Nasal Cannula 3.0 01/18/19 20:00 62 18 Nasal Cannula 3.0 32 01/18/19 20:00 98.2 68 18 139/62 (87) 100 01/18/19 20:00 Nasal Cannula 3.0 32 01/18/19 20:00 99 Nasal Cannula 3.0 32 01/18/19 16:00 98.7 69 18 114/58 (76) 99 Intake and Output 01/18/19 01/19/19 19:00 07:00 Intake Total 1000 ml Balance 1000 ml Intake Oral 1000 ml # Voids 3 3 # Bowel Movements 1 Objective General Appearance: cachetic Lines, tubes and drains: peripheral HEENT: normocephalic, atraumatic Neck: non-tender, normal alignment Respiratory/Chest: chest wall non-tender, lungs clear Breasts: no masses Cardiovascular/Chest: normal peripheral pulses, normal rate Abdomen: normal bowel sounds, non tender Genitourinary/Rectal: normal genital exam Extremities: normal range of motion Skin Exam: normal pigmentation 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 Current Medications Medications (Trade) Dose Ordered Sig/Scout Route PRN Reason Start Time Stop Time Status Last Admin Dose Admin Albuterol/ Ipratropium (Albuterol/ Ipratropium) 3 ml Q4H PRN HHN Shortness of Breath 01/14/19 22:15 01/19/19 22:14 01/14/19 22:34 Carvedilol (Coreg) 12.5 mg EVERY 12 HOURS ORAL 01/12/19 21:00 02/11/19 20:59 01/18/19 21:51 Fentanyl (Duragesic) 1 patch Q72H TDERMAL 01/19/19 18:00 01/26/19 17:59 Furosemide (Lasix) 20 mg DAILY ORAL 01/13/19 09:00 02/12/19 08:59 01/19/19 08:54 Miscellaneous Medication (fentaNYL Destruction) 1 ea Q72H MISC 01/01/19 17:59 01/31/19 17:58 01/13/19 17:07 Morphine Sulfate (Morphine Sulfate) 2 mg Q4H PRN IM For Pain 01/18/19 14:00 01/25/19 13:59 01/19/19 08:55 Nitroglycerin (Ntg) 0.4 mg Q5M PRN SL Prn Chest Pain 12/25/18 16:55 01/24/19 16:54 01/14/19 02:32 Polyethylene Glycol (Miralax) 17 gm DAILYPRN PRN ORAL Constipation 12/28/18 19:00 01/27/19 18:59 01/15/19 08:40 Chepe uLong MD Jan 19, 2019 12:48
[2019-01-19 16:00] VITALS: BP 111/59
--- NOTE | 2019-01-19 18:11 | Internal Med Progress Note ---
Subjective Date of Service: Jan 19, 2019 Physician Name Nikhil West Attending Physician Abdias Hunter MD Current Medications Medications (Trade) Dose Ordered Sig/Scout Route PRN Reason Start Time Stop Time Status Last Admin Dose Admin Albuterol/ Ipratropium (Albuterol/ Ipratropium) 3 ml Q4H PRN HHN Shortness of Breath 01/14/19 22:15 01/19/19 22:14 01/14/19 22:34 Carvedilol (Coreg) 12.5 mg EVERY 12 HOURS ORAL 01/12/19 21:00 02/11/19 20:59 01/18/19 21:51 Fentanyl (Duragesic) 1 patch Q72H TDERMAL 01/19/19 18:00 01/26/19 17:59 Furosemide (Lasix) 20 mg DAILY ORAL 01/13/19 09:00 02/12/19 08:59 01/19/19 08:54 Miscellaneous Medication (fentaNYL Destruction) 1 ea Q72H MISC 01/01/19 17:59 01/31/19 17:58 01/13/19 17:07 Morphine Sulfate (Morphine Sulfate) 2 mg Q4H PRN IM For Pain 01/18/19 14:00 01/25/19 13:59 01/19/19 13:48 Nitroglycerin (Ntg) 0.4 mg Q5M PRN SL Prn Chest Pain 12/25/18 16:55 01/24/19 16:54 01/14/19 02:32 Polyethylene Glycol (Miralax) 17 gm DAILYPRN PRN ORAL Constipation 12/28/18 19:00 01/27/19 18:59 01/15/19 08:40 Allergies: Coded Allergies: No Known Allergies (Verified , 09/12/10) ROS Limited/Unobtainable: No Constitutional: Reports: no symptoms HEENT: Reports: no symptoms Cardiovascular: Reports: no symptoms Respiratory: Reports: no symptoms Gastrointestinal/Abdominal: Reports: no symptoms Genitourinary: Reports: no symptoms Neurologic/Psychiatric: Reports: no symptoms Subjective 78 YO M admitted with chest pain. Now pancytopenia and UTI. Cover for Int Joseph- Dr Hunter. Objective Last Vital Signs Date Time Temp Pulse Resp B/P (MAP) Pulse Ox O2 Delivery O2 Flow Rate FiO2 01/19/19 16:00 97.7 70 18 111/59 (76) 100 01/19/19 09:00 Nasal Cannula 3.0 01/19/19 07:41 21 Intake and Output 01/18/19 01/19/19 19:00 07:00 Intake Total 1000 ml Balance 1000 ml Intake Oral 1000 ml # Voids 3 3 # Bowel Movements 1 Objective PHYSICAL EXAMINATION: GENERAL: The patient awake, responsive, no acute distress. HEAD AND NECK: Pupils are equal and reactive to light. Extraocular movements are intact. Neck was supple. No JVD LUNGS: Good air entry. No wheeze or rales. HEART: S1, S2. Distant heart sounds. No murmur or gallops. Pacemaker in left-sided chest wall. ABDOMEN: Soft, nondistended, nontender. EXTREMITIES: No cyanosis, clubbing, edema. Varicose veins, bilateral lower extremities. NEUROLOGIC: Cranial nerves II through XII grossly intact. Motor is 5/5 in all extremities. Gait is intact. RECTAL: Refused and deferred. GENITOURINARY: Refused and deferred. PSYCHIATRIC: Mood and affect is depressed. Assessment/Plan Assessment/Plan ASSESSMENT: 1. Chest pain, possible acute coronary syndrome. 2. Hypertension. 3. Dyslipidemia. 4. Congestive heart failure. 5. Coronary artery disease. 6. Sick sinus syndrome, status pacemaker. 7. UTI. 8. Pancytopenia; S/P transfusion 6 units PRBC total-Severe anemia, Thrombocytopenia and leukopenia-?leukemia? see onc note. PLAN: Admit the patient to telemetry. Discussed case with Dr. Gee from Cardiology Electrophysiology. Await cardiac nuclear stress test-outpatient Dr. Luong, Pulmonary Critical Care. Urine cult=E. Coli. S/P Rocephin. DVT prophylaxis, heparin subcutaneous. Code status, Full Code. The patient is expected to be in the hospital greater than 2 days Discharge paln: [facility] See Hematology consult-?acute myelocytic leukemia? Discharge to [facility]-see social work note Nikhil West MD Jan 19, 2019 18:11
--- NOTE | 2019-01-19 18:14 | General Progress Note ---
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+++ --> bone marrow bipsy/aspiration report reviewed and concerning for LEUKEMIA with 8.7% myeloblasts --> Continue to monitor for improvement, trend cbc --> HIV is negative, but hep C++ --> US abd ordered to r/o cirrhosis and hsm and is negative for those --> reverse isolation if ANC is <2000 --> Give neupogen if ANC <1000 --> Transfuse if hgb <7, with 1 unit prbc --> hospice v treatment as per pcp recommendations and referral --> Hgb trend: 9-->8.7-->7.9-->7-->7.6-->7.4->8.1-->7.7-->6.5-->8.3-->7.7-->7.5- ->7.4-->8.9-->7.4 --> no increase in mass/lymphadeopathy on exam # Thrombocytopenia - potential causes multifactorial, evaluate liver and viral etiologies to begin, also could be related to underlying medications patient has received. --> Hep panel and HIV negative, hep C++ --> US abd to evaluate for cirrhosis and hsm reviewed --> Peripheral smear ordered to evaluate for blasts /schistocytes is wnl --> abx and other meds have been reviewed --> ok for ppx if plt >50k w/ either heparin or lovenox --> Transfuse if Plt < 20k and fever, or if Plt < 10k without fever --->Plt trend 70-->65-->44-->86-->122-->88-->100k-->140k-->154k-->78k-->72k--> 110k-->117k # Reticulocytosis with elevated bilirubin that is indirect --> reviewed direct and indirect bilis again, trend could have liver disease --> liver US shows no significant cirrhosis --> evaluate as needed with gi team, recs apprecaited #. Chest pain, possible acute coronary syndrome. --> cards recs appreciated as well as pulm --> stress test prn # Hypertension. sbp goal <140 -- > as per cards recs # Dyslipidemia. on statin prn # Chf # Coronary artery disease. # Sick sinus syndrome, status pacemaker. # Acute E. coli UTI s/p abx # Hep C+++ needs op management # Chronic pain is on fentanyl patch prn The timing of this note does not necessarily reflect the time of the patient was seen. Greatly appreciate consultation! Subjective Constitutional: Denies: no symptoms, chills, diaphoresis, fever, malaise, weakness, other HEENT: Denies: no symptoms, eye pain, blurred vision, tearing, double vision, ear pain, ear discharge, nose pain, nose congestion, throat pain, throat swelling, mouth pain, mouth swelling, other Respiratory: Denies: no symptoms, cough, orthopnea, shortness of breath, SOB with excertion, SOB at rest, sputum, stridor, wheezing, other Gastrointestinal/Abdominal: Denies: no symptoms, abdomen distended, abdominal pain, black stools, tarry stools, blood in stool, constipated, diarrhea, difficulty swallowing, nausea, poor appetite, poor fluid intake, rectal bleeding , vomiting, other Genitourinary: Denies: no symptoms, burning, discharge, frequency, flank pain, hematuria, incontinence, pain, urgency, other Neurologic/Psychiatric: Denies: no symptoms, anxiety, depressed, emotional problems, headache, numbness, paresthesia, pre-existing deficit, seizure, tingling, tremors, weakness, other Allergies: Coded Allergies: No Known Allergies (Verified , 09/12/10) Subjective 11/27: no events to report, no f/c 11/28: seen by bedside, plt 65, plan for EGD and bone marrow biopsy tomorrow 11/29: BM biopsy today, no acute distress. 11/30: Had BM biopsy yesterday and now in reverse isolation. hgb 7.5, will transfuse as needed. 12/01: seen by bedside, plt remains low, awaiting bone marrow biopsy results. 12/02: No acute distress, no chest pain, no shortness of breath, wbc 2.7, hgb 7.3 , plt 50, will transfuse as needed. S/P BM biopsy 11/29/18, Results pending 12/04: bone marrow biopsy completed, and show myeloblasts, c/w mds/leukemia, requires close surveillance 12/05: hgb 6.9, Had blood transfusion today, plt up trending, no events 12/06: Seen by bedside, overall improved, still has complaint of chest pain, plt trending up 12/07: Given 1 unit prbc, continues to c/o chest pain, seen by cards 12/08: seen by bedside, complains of pain, plt 106, no events 12/09: awake, comfortable, plt trending down at 69, no events 12/11: awake, comfortable, on NC, plt remains low at 70. 12/12: awake, comfortable, plt 65, no events 12/13: seen by bedside, awake , comfortable, pending labs. 12/14: awake, comfortable, hgb 7.9, monitor, will transfuse as needed, plt trending down at 44, 12/15: seen by bedside, awake, comfortable, hgb 7, will transfuse as needed, plt 82. 12/16: awake comfortable, no events, hgb trending up 12/18: seen by bedside, alert, oriented, no acute distress 12/19: no events noted, no fevers or chills, cbc has been reviewed, had blasts on smear this wknd 12/20: seen by bedside, awake, comfortable, hgb 7.4, will transfuse as needed. 12/21: No overnight events reported, comfortable, hgb 8.1 12/22: no events to report, remains nausous, the platelet count has improved on its own 12/23: awaiting placement to snf at this time, following with cards, pulm 12/24: on 2l nc, received morphine today by rn, complaining of pain 12/25: no events today, no f/c, labs reviewed 12/26: no events report, will get one unit prbc today, has been ordered 12/27: hgb stable/improved but is after transfusion, no events otherwise no fevers 12/28: no events, feeling overall better 12/29: this am comfortable and sleeping, no events, cbc reviewed, no issues noted 12/30: no events to report, no night sweats, anemia panel reviewed 01/02: awake, alert, bed in lowest position 01/03: dc to [facility] once bed opens up, no events o/n 01/04: comfortable in bed, counts are lower, monitor for reverse isolation as needed 01/05: labs pending, no issues, besides intermittent cp, seen by cards, morphine given by rn 01/06: labs have been reviewed and no f/c noted, eating 01/08: no events to report, cbc has been reviewed, no bleeding 01/09: is on fentanyl patch, no major bleeding, otherwise asymptomatic, comfortable 01/10: no fevers or chills, no weigt loss, comfortable today 01/11: no events noted, on fentanyl patch at this time 01/12: no events, comfortable, off asa and palvix 01/13: dc planning started, no fevers or chills reported 01/15: fevers or chills, no new labs, seen by Dr. Hunter 01/16: remains on fentanyl patch, dc planning is pending 01/17: placement is still pending, is without fevers or chills, no night sweats noted 01/18: no events noted overnight, feelijng better 01/19: no fevers or chills noted, no night sweats reported Objective Last 24 Hour Vital Signs Date Time Temp Pulse Resp B/P (MAP) Pulse Ox O2 Delivery O2 Flow Rate FiO2 01/19/19 16:00 97.7 70 18 111/59 (76) 100 01/19/19 14:18 98.3 01/19/19 12:00 98.3 64 20 114/48 (70) 100 01/19/19 09:00 Nasal Cannula 3.0 01/19/19 08:55 70 108/50 01/19/19 08:00 98.7 70 18 108/50 (69) 95 01/19/19 07:41 70 19 Room Air 21 01/19/19 07:40 Room Air 21 01/19/19 07:40 99 Room Air 21 01/19/19 04:00 98.2 61 18 117/50 (72) 100 01/19/19 00:00 98.2 67 18 145/61 (89) 100 01/18/19 21:51 62 139/62 01/18/19 20:04 Nasal Cannula 3.0 01/18/19 20:00 62 18 Nasal Cannula 3.0 32 01/18/19 20:00 98.2 68 18 139/62 (87) 100 01/18/19 20:00 Nasal Cannula 3.0 32 01/18/19 20:00 99 Nasal Cannula 3.0 32 Intake and Output 01/18/19 01/19/19 19:00 07:00 Intake Total 1000 ml Balance 1000 ml Intake Oral 1000 ml # Voids 3 3 # Bowel Movements 1 Height (Feet): 5 Height (Inches): 5.00 Weight (Pounds): 139 Objective General: well appearing, nad, alert Head: normocephalic, atraumatic Eyes: b/l eye PERRL, bilateral eye EOMI ENT: hearing grossly normal, normal pharynx Neck: full range of motion, supple, no meningismus Respiratory: chest non-tender, lungs clear, normal BSs, NC++ CV: regular rate, rhythm, no murmur GI: normal bowel sounds, non tender, no mass MSK: back normal, normal range of motion Psychiatric: mood/affect normal Skin: warm/dry Jose Alberto España MD Jan 19, 2019 18:14
[2019-01-19] MEDS: fentaNYL Destruction MISC SCH (18:26)
[2019-01-19 20:00] VITALS: BP 125/64
[2019-01-20] VITALS: BP 112/47
[2019-01-20] MEDS: Morphine Sulfate 2mg/ml Inj(IV/IM USE ONLY) IM PRN ×4 (00:42→14:16)
[2019-01-20 04:00] VITALS: BP 113/47
[2019-01-20] MEDS: Nitroglycerin Subl 0.4mg tab SL PRN (07:54)
[2019-01-20] MEDS: Carvedilol 12.5mg tab ORAL SCH (07:54)
[2019-01-20 07:56] VITALS: BP 135/60
[2019-01-20 12:00] VITALS: BP 114/51
--- NOTE | 2019-01-20 14:16 | Pulmonology Progress Note ---
Assessment/Plan Problems: (1) Advanced dementia (2) Myeloblastic leukemia (3) Severe thrombocytopenia (4) ACS (acute coronary syndrome) (5) Cardiomyopathy (6) HTN (hypertension) (7) Pacemaker (8) Hypothyroidism (9) CAD (coronary artery disease) (10) History of CVA (cerebrovascular accident) Assessment/Plan feeling better today no new complains doing better, on fentNAYL PACH, pain better controlled, renew fentanyl patch again early leukemia check electrolytes symptomatic treatment pain better controlled waiting for Medical application wants some physical therapy Subjective ROS Limited/Unobtainable: No Constitutional: Reports: no symptoms HEENT: Repors: no symptoms Respiratory: Reports: no symptoms Allergies: Coded Allergies: No Known Allergies (Verified , 09/12/10) Objective Last 24 Hour Vital Signs Date Time Temp Pulse Resp B/P (MAP) Pulse Ox O2 Delivery O2 Flow Rate FiO2 01/20/19 12:00 98.0 68 20 114/51 (72) 100 01/20/19 10:34 98.0 01/20/19 08:20 Nasal Cannula 3.0 01/20/19 07:56 98.0 75 20 135/60 (85) 100 01/20/19 07:54 75 135/60 01/20/19 07:54 135/60 01/20/19 07:31 99 Room Air 21 01/20/19 07:31 Room Air 21 01/20/19 07:31 79 18 Room Air 21 01/20/19 04:00 98.8 70 20 113/47 (69) 96 01/20/19 00:00 98.5 66 18 112/47 (68) 99 01/19/19 21:00 Nasal Cannula 3.0 01/19/19 20:24 68 125/64 01/19/19 20:00 98.7 68 19 125/64 (84) 99 01/19/19 19:48 98 Nasal Cannula 3.0 32 01/19/19 19:48 Nasal Cannula 3.0 32 01/19/19 19:48 71 18 Nasal Cannula 3.0 32 01/19/19 18:57 97.7 01/19/19 16:00 97.7 70 18 111/59 (76) 100 Intake and Output 01/19/19 01/20/19 19:00 07:00 Intake Total 840 ml 240 ml Output Total 300 ml Balance 840 ml -60 ml Intake Oral 840 ml 240 ml Output Urine Total 300 ml Objective General Appearance: cachetic Lines, tubes and drains: peripheral HEENT: normocephalic, atraumatic Neck: non-tender, normal alignment Respiratory/Chest: chest wall non-tender, lungs clear Breasts: no masses Cardiovascular/Chest: normal peripheral pulses, normal rate Abdomen: normal bowel sounds, non tender Genitourinary/Rectal: normal genital exam Extremities: normal range of motion Skin Exam: normal pigmentation Neurologic: ios programmer II-XII grossly normal Current Medications Medications (Trade) Dose Ordered Sig/Scout Route PRN Reason Start Time Stop Time Status Last Admin Dose Admin Carvedilol (Coreg) 12.5 mg EVERY 12 HOURS ORAL 01/12/19 21:00 02/11/19 20:59 01/20/19 07:54 Fentanyl (Duragesic) 1 patch Q72H TDERMAL 01/19/19 18:00 01/26/19 17:59 01/19/19 18:27 Furosemide (Lasix) 20 mg DAILY ORAL 01/13/19 09:00 02/12/19 08:59 01/20/19 07:54 Miscellaneous Medication (fentaNYL Destruction) 1 ea Q72H MISC 01/01/19 17:59 01/31/19 17:58 01/19/19 18:26 Morphine Sulfate (Morphine Sulfate) 2 mg Q4H PRN IM For Pain 01/18/19 14:00 01/25/19 13:59 01/20/19 10:04 Nitroglycerin (Ntg) 0.4 mg Q5M PRN SL Prn Chest Pain 12/25/18 16:55 01/24/19 16:54 01/20/19 07:54 Polyethylene Glycol (Miralax) 17 gm DAILYPRN PRN ORAL Constipation 12/28/18 19:00 01/27/19 18:59 01/15/19 08:40 Chepe Luong MD Jan 20, 2019 14:16
--- NOTE | 2019-01-23 08:10 | Discharge Summary ---
Discharge Summary Discharge Summary _ DATE OF ADMISSION: 11/18/2018 DATE OF DISCHARGE: 01/20/2019 DISCHARGED BY: Dr. Hunter REASON FOR ADMISSION: 78 years old male with history of coronary artery disease status post CABG and AICD, left eye blindness, hypothyroidism, presented to emergency department with complaint of chest pain. Patient did not provide a good history, but reported that he was getting chest pain on and off at all times. Patient had recent admission at [facility] 3 months ago also with the same complaint. At this time he complained of chest pain at night prior to presentation. Per [facility] staff he declined nitroglycerin , and insisted on calling 911. Paramedics gave him nitroglycerin and aspirin. Patient stated that he felt better. Pain described as substernal, sharp, without radiation, 7 out of 10 on a scale 1 -10, no exertional component. No nausea no vomiting. No diaphoresis. No shortness of breath. Upon evaluation in emergency department vital signs were stable. EKG revealed sinus rhythm, no acute ischemic changes. Troponin - 0.011. Chest x-ray demonstrated no acute process. Left chest biventricular AICD. Evidence of prior CABG. Right basilar atelectasis with elevated right hemidiaphragm, previously demonstrated. Laboratory workup revealed WBC 8.1, hemoglobin 8.1, hematocrit 25.5. Stable electrolytes. BUN 19, creatinine 1.2. Glucose 122. Calcium 8.4. Patient was admitted for further workup. CONSULTANTS: hemodialysis technician Dr. Gomez pulmonary Dr. Luong GI specialist Dr. Mcguire apparel manager/oncologist Dr. España psychiatrist plastic surgery Dr. Snow [facility]SE: Patient admitted to telemetry floor. Application Development Team Lead followed. Echocardiogram revealed preserved ejection fraction 55, no evidence of wall motion abnormality. No evidence of left ventricular hypertrophy. No evidence of pericardial effusion. Aortic valve calcification with decreased cusp excursion noted. Moderately elevated left atrial pressure grade 2. Right ventricular systolic pressure of 61 consistent with a severe pulmonary hypertension. Serial troponin were negative. EKG revealed no acute ischemic changes. Patient was ruled out for acute MT as per hemodialysis technician. Patient with a prior history of cardiomyopathy, currently ejection fraction 55% . Anti-failure regimen with beta-jeffrey and Lasix continued. Volumes and cardiorenal parameters were closely monitored. Patient undergone interrogation of [place] atrial biventricular defibrillator , which showed normal functioning. Statin continued. Lipid panel stable. Patient initially was on dual antiplatelet therapy with aspirin and Plavix. The next day patient developed severe anemia with hemoglobin 6.8 and platelet started to trend down. Aspirin and Plavix stopped. Nitroglycerin was on board as needed. Per hemodialysis technician chest pain was likely due to severe anemia . However hemodialysis technician ordered stress test . Stress test was unable to be completed and canceled due to acute anemia. Recommended outpatient stress test when clinically stable. GI specialist followed for anemia. Patient patient undergone EGD with finding of gastritis and hiatal hernia. Biopsy results were consistent with mild chronic gastritis , but was negative for H. pylori. Negative for dysplasia or malignancy. Bowel regimen instituted. GI prophylaxis provided. Antiemetic were on board as needed. GI specialist recommended outpatient hepatitis C treatment. Varnish Cooker followed. Anemia workup revealed stable iron, B12, and folate level. Hemoglobin and hematocrit were closely monitored with goal to keep hemoglobin above 7. Patient undergone transfusion total of 6 units of packed red blood cells while in the hospital. Hepatitis panel revealed evidence of hepatitis C. HIV test was nonreactive. Ultrasound of the abdomen revealed no acute findings. Status post cholecystectomy. Patient subsequently undergone bone marrow biopsy Per apparel manager patient had early leukemia versus late myelodysplastic syndrome based on flow cytometry of bone marrow and peripheral smear which both showed 3.7% and 8.7% myeloblasts respectively. Supplemental oxygen provided as needed to keep pulse oximetry above 92%. Pulmonary toilet was on board as needed. Pain management was addressed. Levothyroxine continued. Patient was undergone treatment for acute E. coli UTI. Repeated urine culture revealed mixed gram-positive organisms. Fall precaution maintained. Patient was working with physical therapist. Psychiatrist followed. Psychiatrist diagnosed patient with anxiety disorder and major depressive disorder. Reality orientation and supportive therapy provided. Psychiatric medication regimen provided as per psychiatrist recommendation. Plastic surgeon seen and evaluated patient for skin check . Skin was intact. Patient had no difficulty turning or positioning. Plastic surgeon recommended turning every 2 hours , keep sheets clean and wrinkle free. Condition of mattress, pressure reduction surfaces assessed daily. Skin was moisturized daily. Protein supplements provided as per registered dietitian recommendation. Placement was challenging. Placement was finally found and secured. Prior to discharge WBC 5.8, hemoglobin 7.4, platelet count 113. Patient subsequently was transferred to [facility] for continuation of care. 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 coli UTI, status post treatment GERD Status post EGD Gastritis Hiatal hernia Hepatitis C Hypothyroidism Major depressive disorder Anxiety disorder Advanced dementia DISCHARGE MEDICATIONS: See Medication Reconciliation list. DISCHARGE INSTRUCTIONS: Patient was discharged to the [facility]. Follow up with medical doctor at the facility. . Mary Jo Lyn NP Jan 23, 2019 08:10
--- NOTE | 2019-01-23 12:38 | Cardiology Report ---
APPROVED REPORT EKG Measurement Heart [id number] [id number] AV sequential pacing Abnormal ECG
== END 2019-01-20 14:29 | DRG 835 ==
LOC: EDBD 03:42 → EMR 04:02 → 2E 04:23 → EDBEDREQ 13:37 → 4E 11-28 16:27
PROC: 30233N1 Transfusion of Nonautologous Red Blood Cells into Peripheral Vein, Percutaneous Approach (ICD-10-PCS; principal; 2018-11-19)
PROC: 30233R1 Transfusion of Nonautologous Platelets into Peripheral Vein, Percutaneous Approach (ICD-10-PCS; 2018-11-26)
PROC: 07DR3ZX Extraction of Iliac Bone Marrow, Percutaneous Approach, Diagnostic (ICD-10-PCS; 2018-11-29)
PROC: 0DB78ZX Excision of Stomach, Pylorus, Via Natural or Artificial Opening Endoscopic, Diagnostic (ICD-10-PCS; 2018-12-01)
DX: C92.00 Acute myeloblastic leukemia, not having achieved remission (principal); D61.818 Other pancytopenia; N39.0 Urinary tract infection, site not specified; I24.9 Acute ischemic heart disease, unspecified; F33.1 Major depressive disorder, recurrent, moderate; I25.10 Atherosclerotic heart disease of native coronary artery without angina pectoris; E78.5 Hyperlipidemia, unspecified; E03.9 Hypothyroidism, unspecified; Z95.1 Presence of aortocoronary bypass graft; I11.0 Hypertensive heart disease with heart failure; I50.9 Heart failure, unspecified; B96.20 Unspecified Escherichia coli [E. coli] as the cause of diseases classified elsewhere; I49.5 Sick sinus syndrome; D46.9 Myelodysplastic syndrome, unspecified; Z95.810 Presence of automatic (implantable) cardiac defibrillator; B18.2 Chronic viral hepatitis C; K21.9 Gastro-esophageal reflux disease without esophagitis; K44.9 Diaphragmatic hernia without obstruction or gangrene; D64.9 Anemia, unspecified; R70.1 Abnormal plasma viscosity; H54.40 Blindness, one eye, unspecified eye; F41.9 Anxiety disorder, unspecified; F03.90 Unspecified dementia, unspecified severity, without behavioral disturbance, psychotic disturbance, mood disturbance, and anxiety; D69.6 Thrombocytopenia, unspecified; Z86.73 Personal history of transient ischemic attack (TIA), and cerebral infarction without residual deficits
CPT/HCPCS: 36415; 71045; 76700; 78451; 80048; 80053; 80061; 81001; 81003; 82043; 82247; 82248; 82550; 82553; 82570; 82607; 82728; 82746; 82962; 83010; 83540; 83550; 83615; 83735; 83880; 84100; 84133; 84300; 84443; 84484; 84550; 85007; 85025; 85044; 85060; 85384; 85610; 85730; 86160; 86703; 86705; 86709; 86803; 86850; 86880; 86900; 86901; 86920; 87081; 87086; 87181; 87340; 89050; 93005; 93306; 94003; 94150; 94640; 94664; 94760; 99285; J2370; J2405; J7620